=== PATIENT | male | born 1945 | race Caucasian/White ===

== ENCOUNTER → 2019-03-23 14:14 | Outpatient (BNVA) | payer MEDICARE, OTHER, SELFPAY | PROVIDERS: Family Provider Internal Medicine; PCP Internal Medicine; Visit Provider Specialist | DX: M25.559 Pain in unspecified hip (principal) | CPT/HCPCS: 73502 ==

== ENCOUNTER 2019-03-29 08:01 | Outpatient (CLI) | payer MEDICARE, OTHER, SELFPAY ==
--- NOTE | 2019-03-29 08:18 | CT_ITS ---
WS: [id number] CTA THORACIC TECHNIQUE: Contrast enhanced CTA of the thoracic aorta with coronal and sagittal reformatted images a nd maximum intensity projection (MIP) images. CLINICAL INFORMATION: ASCENDING AORTIC ANEURYSM COMPARISON: CTA July 04, 2018 DLP: 1319.[address] scans at [facility] use at least one of these dose optimization techniques: automat ed exposure control; mA and/or kV adjustment per patient size (includes targeted exams where dose is matched to clinical indication); or iterative reconstruction. FINDINGS: Ectatic ascending thoracic aorta measuring 3.7 cm in maximum dimension. Vascular calcification includ ing coronary. Normal descending thoracic aorta. Proximal main pulmonary arteries are normal. No mediastinal or hilar lymphadenopathy. Cholecystectomy clips. Adrenal glands are normal. Lungs are well aerated. No acute pulmonary infiltrates. Postoperative changes cervical spine. Schmorl's nodes t horacic spine. CT/CT angio chest [id number] IMPRESSION: 1. Stable slightly ectatic ascending thoracic aorta measuring 3.7 CM. Normal d escending thoracic aorta. 2. Vascular calcification including coronary. 3. No mediastinal or hilar lymphadenopathy. 4. Lungs are well aerated. No acute pulmonary infiltrates. 5. Prior cholecystectomy.
[2019-03-29] MEDS: iohexol 350 mg/mL 100 mL Btl IV (08:44)
== END 2019-03-29 08:02 | disposition home or self-care (01) ==
LOC: RADWPI 08:06
PROVIDERS: Family Provider Internal Medicine; PCP Internal Medicine; Referring Provider Internal Medicine; Visit Provider Internal Medicine Cardiovascular Disease
DX: I71.2 Thoracic aortic aneurysm, without rupture (principal); I25.10 Atherosclerotic heart disease of native coronary artery without angina pectoris; Z90.49 Acquired absence of other specified parts of digestive tract
CPT/HCPCS: 71275; Q9967

== ENCOUNTER → 2019-03-29 11:37 | Day surgery (SDC) | payer MEDICARE, OTHER, SELFPAY ==
--- NOTE | 2019-03-29 13:37 | XR_ITS ---
WS: PROCEDURE INFORMATION: Exam: XR Chest, 2 Views Exam date and time: 03/29/2019 2:06 PM Age: 73 years old Clinical indication: Pre-operative exam; Cardiovascular screening and respiratory screening exam; Additional info: Total hip arthroplasty TECHNIQUE: Imaging protocol: XR of the chest Views: 2 views. COMPARISON: CR Chest 1 [place] [id number] 07/04/2018 1:22 PM FINDINGS: Lungs: Unremarkable. No consolidation. Pleural space: Unremarkable. No pleural effusion. No pneumothorax. Heart/Mediastinum: Unremarkable. No cardiomegaly. Bones/joints: Metallic orthopedic hardware seen in the cervical spine and lumbar spine. XR/XR chest 2V* [id number] IMPRESSION: No acute findings. Surgical hardware cervical spine and lumbar spine
== END ==
PROVIDERS: Family Provider Internal Medicine; PCP Internal Medicine; Visit Provider Specialist
DX: Z01.818 Encounter for other preprocedural examination (principal); M16.11 Unilateral primary osteoarthritis, right hip
CPT/HCPCS: 71046; 71275; 80048; 81003; 85025; 93005; Q9967

== ENCOUNTER 2019-04-11 10:44 | Observation (INO) | payer MEDICARE, OTHER, SELFPAY ==
[2019-03-29 12:55] VITALS: BMI 35.6
--- NOTE | 2019-03-29 13:04 | ECG_ITS ---
Measurements Intervals [place] Rate: 79 P: 268 MO: 127 QRS: -63 QRSD: 102 T: 12 QT: 344 QTc: 394 JUNCTIONAL RHYTHM POSSIBLE RIGHT VENTRICULAR CONDUCTION DELAY [RSR (QR) IN V1/V2] MINIMAL VOLTAGE CRITERIA FOR LVH, CONSIDER NORMAL VARIANT [MEETS CRITERIA IN ONE OF: R(aVL), S(V1), R(V5), R(V5/V6)+S(V1)] POSSIBLE ANTERIOR MYOCARDIAL INFARCTION [30 ms Q WAVE IN V3/V4, OR R < 0.2 mV IN V4], PROBABLY OLD INFERIOR MYOCARDIAL INFARCTION [40+ ms Q WAVE AND/OR ST/T ABNORMALITY IN II/aVF], PROBABLY OLD WITH POSTERIOR EXTENSION [PROMIN Compared to ECG 07/04/2018 19:32:24 Junctional rhythm now present Myocardial infarct finding now present Sinus rhythm no longer present First degree AV block no longer present Left anterior fascicular block no longer present Intraventricular conduction delay no longer present Electronically Signed On 03-29-2019 20:13:30 GILL TENDER by Naz Russ M.D. [email or web address]
--- NOTE | 2019-03-29 13:36 | XRR_ITS ---
PROCEDURE INFORMATION: Exam: XR Chest, 2 Views Exam date and time: 03/29/2019 2:06 PM Age: 73 years old Clinical indication: Pre-operative exam; Cardiovascular screening and respiratory screening exam; Additional info: Total hip arthroplasty TECHNIQUE: Imaging protocol: XR of the chest Views: 2 views. COMPARISON: CR Chest 1 [place] [id number] 07/04/2018 1:22 PM FINDINGS: Lungs: Unremarkable. No consolidation. Pleural space: Unremarkable. No pleural effusion. No pneumothorax. Heart/Mediastinum: Unremarkable. No cardiomegaly. Bones/joints: Metallic orthopedic hardware seen in the cervical spine and lumbar spine.
--- NOTE | 2019-03-29 13:44 | ANES.PREANES ---
Pre-Anesthetic Assessment Pre-Anesthetic Assessment: Height/Weight: Height 1.78 m Weight 112.491 kg Preop Diagnosis: Right hip Osteoarthritis Proposed Procedure: Operation Date: 04/11/19 07:00 Proposed Procedures p Total Hip Arthroplasty M116.11(Right) - Angela Curtis MD Social: Social History: No alcohol and No tobacco Exam: Pre-Anes Outpt Exam: alert, oriented x 3, clear to auscultation bilaterally and regular rate & rhythm Airway: Submandibular: WNL Cervical ROM: Other (limited after ACDF) MP: 2 Dentition: False Pulmonary: Pulmonary: ADAMS and SOB Comments: SOB/ADAMS for 10yrs. CV/HEM: CV/HEM: CAD, HTN and AL Comments: Pt with neg stress stest 4-19 with echo 60%. Pt with 4cm AAA thats medically managed : : None reported Hepatic: Hepatic: None reported GI: GI: GERD (controlled with meds) Metabolic: Metabolic: Thyroid Musc/skel: Musc/skel: Lower Back Pain and OA/DJD Neuropsych: Neuropsych: TOSCANO and TIA (2yrs ago) Anesthetic Plan: ASA status: III Anesthesia: Anesthesia Evaluation and General Risk of > 500 ml blood loss (7ml/kg in children): Yes, adequate IV access and fluids planned PFSH Anesthesia PFSH: Medical History Cervical postlaminectomy syndrome (Acute) Chronic low back pain (Acute) COPD (chronic obstructive pulmonary disease) (Acute) DJD (degenerative joint disease) (Acute) H/O malignant neoplasm of skin (Acute) H/O myocardial infarction, greater than 8 weeks (Acute) H/O prostate cancer (Acute) HTN (hypertension) (Acute) Hyperlipidemia (Acute) Hypothyroid (Acute) FUAD (obstructive sleep apnea) (Acute) Surgical History (Updated 03/24/19 @ 12:42 by Angela Curtis MD) H/O colonoscopy (Acute) 2011 H/O esophagogastroduodenoscopy (Acute) 2012 H/O neck surgery (Acute) x 2 H/O total knee replacement (Acute) right and left History of abdominal aortic aneurysm (AAA) repair (Acute) History of back surgery (Acute) x 7 History of tonsillectomy and adenoidectomy (Acute) History of total left hip arthroplasty (Acute) Hx of appendectomy (Acute) Hx of cholecystectomy (Acute) Social History Smoking and tobacco status: never smoked Alcohol intake: never Household members: spouse Marital status: Current occupational status: retired Data Anesthesia Cardiac Studies: No Data to Display
[2019-03-29 13:50] LABS: Add Urine Microscopic? NO
[2019-03-29 14:13] LABS: Basophils # 0.1 10^3/uL (0.0-0.1); Basophils % 0.9 %; Eosinophils # 0.1 10^3/uL (0.0-0.8); Eosinophils % 1.8 %; Hematocrit 34.9 % (42.0-52.0); Hemoglobin 10.9 g/dL (11.7-16.6); Lymphocytes % 17.4 %; Mean Corpuscular HGB Conc 31.2 g/dL (30.0-36.0); Mean Corpuscular Hemoglobin 27.7 pg (28.0-34.0); Mean Corpuscular Volume 88.8 fL (80-94); Mean Platelet Volume 9.8 fL (7.4-10.4); Monocytes # 0.7 10^3/uL (0.2-0.9); Monocytes % 12.5 %; Neutrophils # 3.8 10^3/uL (1.8-7.7); Neutrophils % 66.9 %; Nucleated Red Blood Cells % 0 %; Platelet Count 232 10^3/cmm (130-400); Red Blood Count 3.93 10^6/uL (4.1-5.3); Red Cell Distribution Width 15.3 % (12.1-15.1); White Blood Count 5.7 10^3/uL (4.0-10.0)
[2019-03-29 14:17] LABS: Anion Gap 16.2 (5-19); Blood Urea Nitrogen 19 mg/dL (8-23); Calcium 10.1 mg/Dl (8.8-10.2); Carbon Dioxide 23 mmol/L (22-29); Chloride 105 mmol/L (98-107); Glucose 106 mg/dL (74-106); Potassium 4.2 mmol/L (3.5-5.1); Sodium 140 mmol/L (136-145)
[2019-03-29 14:25] LABS: Bilirubin Urine Neg (NEGATIVE); Blood Urine Neg (Negative); Glucose Urine UA Norm (Normal); Ketones Urine Negative (Negative); Leukocyte Esterase Urine Negative (Negative); Nitrate Urine Negative (Negative); Protein Urine Neg (Negative); Urine Appearance Clear (CLEAR); Urine Color Yellow (Yellow); Urobilinogen Urine 1 mg/dL (Negative); pH Urine 5 (5-7)
[2019-04-11] VITALS (25 sets, daily range): BP systolic 96–156; BP diastolic 58–91; PULSE 55–83; RESP 16–22; TEMP 36.1–37.1; O2SAT 91–100
[2019-04-11] MEDS: CELEcoxib 200 mg Capsule 400 MG PO (06:53)
--- NOTE | 2019-04-11 07:00 | PM.HPUD ---
H&P update H&P Update: DATE OF SURGERY/PROCEDURE: 04/11/19 DATE H&P PERFORMED: 03/23/19 H&P UPDATE INFORMATION: H&P completed within last 30 days, No changes to prior documentation and H&P is in [facility] EMR on date indicated PREOP DIAGNOSIS: Severe degenerative osteoarthritis of the right hip PRIMARY INDICATION FOR PROCEDURE: Pain secondary to degenerative osteoarthritis of the hip with interference in activities of daily living. PLANNED PROCEDURE: Operation Date: 04/11/19 07:00 Proposed Procedures Total Hip Arthroplasty M116.11 16190(Right) - Angela Curtis MD Full H&P Perinent History: Medical/Surgical History: Medical History (Updated 04/04/19 @ 16:49 by Ben Castro MD) Cervical postlaminectomy syndrome (Acute) Chronic low back pain (Acute) COPD (chronic obstructive pulmonary disease) (Acute) DJD (degenerative joint disease) (Acute) H/O malignant neoplasm of skin (Acute) H/O myocardial infarction, greater than 8 weeks (Acute) H/O prostate cancer (Acute) HTN (hypertension) (Acute) Hyperlipidemia (Acute) Hypothyroid (Acute) FUAD (obstructive sleep apnea) (Acute) Family History: Family History (Updated 03/21/19 @ 11:56 by Jennifer Becerril LPN) Mother Bleeding disorder Other CAD (coronary artery disease) Cancer Stroke Denies family history of Anesthesia complication Social History: Social History Smoking and tobacco status: never smoked Alcohol intake: never Household members: spouse Marital status: Current occupational status: retired
[2019-04-11] MEDS: sodium chloride 0.9% 1,000 ML 30 ML IV (07:01)
[2019-04-11 07:21] LABS: INR 1.07 (0.8-1.2)
[2019-04-11] MEDS: vancomycin 1,000 MG SDV 1000 MG XX (08:09)
[2019-04-11] MEDS: ceFAZolin 1,000 mg SDV 1000 MG IRRIGATION (08:09)
[2019-04-11] MEDS: ondansetron 2 mg/ML SDV 2 mL 4 MG IVP (10:15)
[2019-04-11] MEDS: fentaNYL 50 mcg/mL INJ 2mL IVP ×2 (10:21→10:26)
--- NOTE | 2019-04-11 10:26 | XR_ITS ---
WS: [id number] RIGHT HIP HISTORY: Post Op COMPARISON: 03/23/2019 Right hip: Single AP film of the pelvis is submitted. Recent RIGHT hip arthroplasty changes are now p resent. The orientation of the acetabular and femoral head prosthesis are normal. No fractures. Recent postsurgical soft tissue changes are noted. Prior LEFT hip arthroplasty. XR/XR hip RT 2-3V wo/w pel* [id number] IMPRESSION: 1. Recent RIGHT hip arthroplasty. Normal position on this single AP projection . 2. Prior LEFT hip arthroplasty without complication.
--- NOTE | 2019-04-11 10:38 | PM.OP ---
Operative Report Date of procedure: 04/11/19 Pre-op Diagnosis: Right hip Osteoarthritis Post-op diagnosis: same Post-op Findings: Severe degenerative osteoarthritis of the right hip Procedure Done: Right total hip arthroplasty utilizing the following components a size 58 mm [place] 2 Tritanium cluster hole acetabular shell with an F alpha code with an MDM cementless liner size 46 mm by F alpha code, a size 7 Accolade to 127? neck angle hip stem with a 37 mm neck length, a 28 mm inner diameter with a 46F outer diameter methodist X3 insert for the MDM, and a Biolox ceramic femoral head with a 28 mm outer diameter and a +0 mm neck length. Specimens removed/disposition: Femoral head, disposed of Pathology: none sent Surgeon: Angela Curtis Public Relations Representative: [facility] OR technicians Anesthesia: General (Intubated) Estimated blood loss (mL): 800 IV fluids (mL): 1,500 Urine output (mL): 200 Complications: None Findings: Severe degenerative osteoarthritis with large osteophytes. The surgical procedure, the hip was stable at 90 degrees of flexion with 30 degrees of adduction and 60 degrees of internal rotation. It was also stable to external rotation. Condition: stable Disposition: observation (To [facility]) Brief History: This 73-year-old gentleman previously underwent left total hip arthroplasty. He has done well following this. He did feel as though the leg was approximately quarter inch longer on the previously operated side. He was still having issues with his activities of daily living. Therefore, we plan to proceed with right total hip arthroplasty. Procedure: Patient was brought to the operating theater. He was transferred to the operating room table and subsequently administered a general anesthetic intubated. Following administration of adequate anesthesia, the patient was placed in full lateral position and held in position with a pegboard. Also, the patient had minimal movement in his right lower extremity preoperatively which made draping as well as the entire surgical procedure very difficult and complex. The patient's right lower extremity was then prepped and draped in usual fashion utilizing DuraPrep. It was draped free. Following prepping and draping a surgical pause was performed. At the time of surgical pause, we identified the site and side of surgery. We also identified the patient and preoperative surgical markings. Confirmation was made of equipment availability. Additionally, the patient's preoperative IV antibiotic, Ancef 2 g, was confirmed as being given in a timely fashion and being the appropriate antibiotic. Following the surgical pause, an incision was made centering over the patient's greater trochanter continuing proximally and distally as necessary to allow access to the hip joint. Dissection continued through skin and soft tissues using a scalpel, and hemostasis was obtained using electrocautery. The tensor fascia jose miguel was identified and incised longitudinally. Patient was very tight with regard to capsule, joint, and musculature which made this a very complex and difficult total hip arthroplasty. Sciatic nerve was identified and protected throughout the surgical procedure. A [place] U retractor was placed after the tensor fascia jose miguel had been incised longitudinally, and the sciatic nerve had been identified. The hip was internally rotated as much as possible, and the piriformis muscle was identified and tagged. Piriformis muscle along with the remaining short external rotators were then incised from the posterior aspect of the hip joint. These were retracted posteriorly. The capsule was entered in a T-type fashion with the edges being tagged, and subsequently the hip was dislocated with use of a hip skid. Following hip dislocation, a femoral neck osteotomy was accomplished in the appropriate position. We then evaluated the acetabulum. The femur was retracted anteriorly. Soft tissues were retracted and the labrum was removed. We then began reaming. Reaming was accomplished sequentially with appropriate deepening. Again, exposure of the acetabulum was difficult secondary to soft tissue contractures. Once the femoral head was removed, there was noted to be significant loss of cartilage over the head and over the acetabulum. We reamed to a size 57 mm to allow for a size 58 mm acetabular shell. The acetabulum was impacted into position. It was noted that the acetabulum matched the bony anatomy. The cup was noted to seat nicely and had good fixation upon impact. The MDM cementless metal liner was then impacted into position with care being taken to assure there was no soft tissue impingement between the acetabular liner and the acetabulum. Also, we confirmed that the acetabular insert was completely seated prior to addressing the femur. Attention was directed to the proximal femur. The proximal femur was lifted out of the wound. A canal finder was passed after the box chisel. The reamer was used to lateralize. We then began broaching. We broached sequentially and had excellent fit and fill with the size 7 Accolade to stem. A trial reduction was accomplished with a +0 mm femoral head with the 46F MDM insert. The patient had good stability with +0 mm femoral head. It felt that we had restored leg length inequality. We placed a size 7 which had a slightly longer neck length, and to avoid over tightening, we did place a 127 degree neck angle rather than a 132 degree neck angle. With this in place, we had the above stabilities, and at that time, we felt that we had restored leg lengths. We also felt that we had excellent stability noted above. Therefore, trial components were removed after the hip was dislocated. The size 7 Accolade to 127? neck angle hip stem with a 37 mm neck length was impacted into position without difficulty and onto this was placed the construct of the +0 mm femoral head with a 28 mm outer diameter and a methodist MDM insert with a 28 mm inner diameter for the size 46F. With this construct, we had the above-noted stability. The stem was noted to seat nicely prior to placement of the femoral head. The wound was copiously irrigated with 20 mL of Betadine and 500 mL of normal saline mixed together. Subsequently, we suctioned this out and irrigated the wound copiously with lactated Ringer's. At this time, with all components in appropriate position, the hip was reduced. Following reduction of the prosthesis once again, we confirmed the stability of the hip. Leg lengths were also felt to be satisfactory and equalized. Being satisfied with the prosthesis, attention was directed to closure. Closure was accomplished with 0 Vicryl in the capsular tissues. Piriformis was reattached with 0 Vicryl as well. Tensor fascia jose miguel was closed with 0 Vicryl in an interrupted fashion. The subcutaneous tissues were closed with a combination of 0 Vicryl and 2-0 Monocryl. Vancomycin powder and a Gelfoam thrombin mixture was placed into the wound as well. The skin was closed with a running 3-0 Monocryl followed by Dermabond and Steri-Strips. This was covered with 4 x 4's, Telfa, and Tegaderm. The patient was placed in an abduction pillow. He was returned the Recovery Room in a satisfactory condition and will be discharged to the floor for postoperative rehabilitation and pain management. There were no complications.
--- NOTE | 2019-04-11 10:57 | SUR.PHASEI ---
1057 PT AWAKE ALERT TAKING ICE CHIPS PT HIP DRESSING D/I FIRST ICE AND ABD PILLOW IN PLACE VSS. REPORT CALLED FAMILY UPDATED BY DR HERNANDEZ PT ABLE TO MOVE RT FOOT, STRONG REGULAR PULSE NOTED TO RT FOOT
[2019-04-11] MEDS: oxyCODONE-APAP 5-325 mg Tablet 1 TAB PO ×3 (11:18→19:51)
[2019-04-11] MEDS: CELEcoxib 200 mg Capsule PO ×2 (11:18→21:38)
[2019-04-11 11:22] LABS: Glucose Point of Care 134 mg/dL (70-110)
[2019-04-11] MEDS: lactated ringers 1,000 ML 100 ML IV ×2 (11:29→21:38)
--- NOTE | 2019-04-11 11:34 | SUR.PHASEI ---
1052 PT TO FLOOR AWAKE ALERT RT HIP DRESSING D/I FAMILY TO ROOM BP 125/76, 69 HR, RESP 22, SHIRLEY RA 100%
[2019-04-11] MEDS: pantoprazole DR 40 mg Tablet PO (12:51)
[2019-04-11] MEDS: oxybutynin 5 mg Tablet PO (12:51)
[2019-04-11] MEDS: chlorhexidine gluconate 0.12% Btl 473 mL 30 ML MUCOUS MEM ×3 (12:52→21:39)
--- NOTE | 2019-04-11 12:57 | PC.NURSE ---
PATIENT SATURATIONS BEGAN TO DROP TO MID 80s ON RA. PATIENT PLACED ON 2L O2 PER NASAL CANNULA. PATIENT SATS RECOVERED TO MID TO HIGH 90s
[2019-04-11] MEDS: TRAMadol 50 mg Tablet PO ×2 (14:31→23:18)
[2019-04-11] MEDS: gabapentin 300 mg Capsule PO ×2 (14:32→21:38)
[2019-04-11] MEDS: calcium carbonate 500 mg Chew Tablet 1000 MG PO (17:08)
[2019-04-11] MEDS: iron polysaccharide complex 150 mg Capsule PO (17:08)
[2019-04-11] MEDS: amlodipine 5 mg Tablet PO (17:09)
[2019-04-11] MEDS: carvedilol 12.5 mg Tablet PO (17:09)
[2019-04-11] MEDS: lisinopril 10 mg Tablet PO (17:09)
[2019-04-11] MEDS: sennosides-docusate Tablet 2 TAB PO (17:09)
[2019-04-12] VITALS (15 sets, daily range): BP systolic 91–116; BP diastolic 53–69; PULSE 69–79; RESP 16–20; TEMP 36.8–37.2; O2SAT 91–94
[2019-04-12] MEDS: oxyCODONE-APAP 5-325 mg Tablet 1 TAB PO ×3 (00:11→08:35)
[2019-04-12 06:24] LABS: Basophils % 0.9 %; Eosinophils # 0.1 10^3/uL (0.0-0.8); Eosinophils % 1.8 %; Hematocrit 25.3 % (42.0-52.0); Hemoglobin 7.7 g/dL (11.7-16.6); Lymphocytes # 0.4 10^3/uL (0.8-4.8); Lymphocytes % 9.5 %; Mean Corpuscular HGB Conc 30.4 g/dL (30.0-36.0); Mean Corpuscular Hemoglobin 26.6 pg (28.0-34.0); Mean Corpuscular Volume 87.5 fL (80-94); Mean Platelet Volume 9.6 fL (7.4-10.4); Monocytes # 0.6 10^3/uL (0.2-0.9); Monocytes % 13.6 %; Neutrophils # 3.4 10^3/uL (1.8-7.7); Neutrophils % 73.8 %; Nucleated Red Blood Cells % 0 %; Platelet Count 135 10^3/cmm (130-400); Red Blood Count 2.89 10^6/uL (4.1-5.3); Red Cell Distribution Width 15.1 % (12.1-15.1); White Blood Count 4.6 10^3/uL (4.0-10.0)
[2019-04-12] MEDS: lactated ringers 1,000 ML 100 ML IV ×2 (07:29→21:09)
[2019-04-12] MEDS: calcium carbonate 500 mg Chew Tablet 1000 MG PO ×2 (08:34→17:16)
[2019-04-12] MEDS: amlodipine 5 mg Tablet PO ×2 (08:34→17:17)
[2019-04-12] MEDS: cholecalciferol (vitamin D3) 1,000 unit Tablet 1000 UNIT PO (08:35)
[2019-04-12] MEDS: aspirin 325 mg EC Tablet PO (08:35)
[2019-04-12] MEDS: carvedilol 12.5 mg Tablet PO ×2 (08:35→17:17)
[2019-04-12] MEDS: multivitamin therapeutic Tablet 1 TAB PO (08:35)
[2019-04-12] MEDS: iron polysaccharide complex 150 mg Capsule PO ×2 (08:35→17:17)
[2019-04-12] MEDS: lisinopril 10 mg Tablet PO ×2 (08:36→17:17)
[2019-04-12] MEDS: gabapentin 300 mg Capsule PO ×3 (08:36→20:28)
[2019-04-12] MEDS: atorvastatin 40 mg Tablet 20 MG PO (08:36)
[2019-04-12] MEDS: pantoprazole DR 40 mg Tablet PO (08:36)
[2019-04-12] MEDS: oxybutynin 5 mg Tablet PO (08:36)
[2019-04-12] MEDS: sennosides-docusate Tablet 2 TAB PO ×2 (08:37→17:17)
[2019-04-12] MEDS: chlorhexidine gluconate 0.12% Btl 473 mL 30 ML MUCOUS MEM ×4 (08:37→20:28)
[2019-04-12] MEDS: levothyroxine 25 mcg Tablet PO (09:56)
[2019-04-12] MEDS: levothyroxine 112 mcg Tablet PO (09:56)
[2019-04-12] MEDS: CELEcoxib 200 mg Capsule PO ×2 (10:07→21:09)
--- NOTE | 2019-04-12 12:31 | PC.CHAP ---
Pastoral Care Encounter/Spiritual Assessment Type of Contact [] Declined metal sander visit [] Patient/Family/Request visit [] Outpatient visit [] Follow-up visit [] Physician referral [] Code/Alert [x] Routine visit [] Staff referral [] Actively dying [] Patient sleeping [] Family support [] [] Out of room [] Palliative care [] [] Receiving care in room [] Pre-surgical visit [] Trauma [] Long length of stay [] ICU visit [] Other: Relational/Emotional Strength [x] Patient feels connected with others/family/visitors/staff [] Distress [] Loneliness/isolation [] Abandonment Spirituality of Patient [x] Person of Nini [x] Attends Restorationist of their Nini [x] Believes in Prayer [] Reads Bible or Protestant materials [] There are Spiritual issues to be addressed Recreation Worker Interventions [x] Prayer [x] Active listening [x] Non-anxious presence [x] Spiritual/emotional support [] Crisis/trauma care [] Spiritual counseling [] Bereavement support [] Provided bereavement packet [] Provided Bible/devotional materials [] Provided toy/stuffed animal, coloring book to patient or family member [x] Completed spiritual assessment [] Provided Communion [] Anointing/[place] [] Salvation [] Other: Impact on Illness or Injury [] Angry [] Fearful [] Anxious [] Often cries [] Exhaustion [] Unable to work [] Unable to attend sikh [] Unable to walk/stand [] Unable to read [] Unable to drive [] Unable to eat/drink [] Unable to sleep [] Unable to be with family [] Other: Summary patient ready to go home to take care of Time spent with patient 15 min
[2019-04-12] MEDS: sodium chloride 0.9% 100 ML 150 ML (15:49)
[2019-04-12] MEDS: TRAMadol 50 mg Tablet PO (15:51)
--- NOTE | 2019-04-12 16:40 | P.PN_ITS ---
Subjective Subjective: Interval history: Patient underwent total hip arthroplasty yesterday. He has attempted to work with physical therapy today, but he had dizziness associated with this therapy secondary to a low H&H. Initially, low H&H was identified, but the patient was not symptomatic. With physical therapy, he became quite dizzy, and this precluded him from participating. He notes at the time of his last surgery, he required 3 units of blood to follow. Medications: Reviewed: Yes Vitals/I&O/Wt Last Vital Signs Temp 98.3 F 04/12/19 15:40 Pulse 69 04/12/19 15:40 Resp 16 04/12/19 15:40 BP 109/68 04/12/19 15:40 Pulse Ox 94 04/12/19 15:40 04/12/19 04/12/19 04/12/19 06:59 14:59 22:59 Intake Total 1705 / 1705 Output Total 700 / 1900 100 / 100 Balance -700 / 2055.000 1605 / 1605 Physical Exam Narrative: EXAM NARRATIVE: Patient is doing well. There is no evidence of DVT. There is no significant hematoma noted. He is neurologically intact. He has no calf tenderness. His thigh is soft and nontender as well. Urinary Catheter Management^: Velazquez: Cath Placed During This Visit: no Data : 04/12/19 05:53 03/29/19 13:15 A&P Assessment and plan (1) History of total right hip arthroplasty: The patient is doing well following his right total hip arthroplasty. He is working with physical therapy, however, due to a decreased H&H, the patient was unable to ambulate today. He sat at the side of the bed. When I saw him, he complained of significant dizziness. He stated that following his prior total hip arthroplasty, he did require 3 units of packed red blood cells. He is symptomatic enough that we will plan transfusion 1 unit today. Status: Acute Code(s): Z96.641 - Presence of right artificial hip joint (2) Primary osteoarthritis of right hip: This was addressed with total hip arthroplasty on April 11, 2019 Status: Acute Code(s): M16.11 - Unilateral primary osteoarthritis, right hip Attestations Medical Necessity Statement*: Patient continues to need hospitalization for decreased H&H and ongoing therapies following his total hip arthroplasty. Coding Level of Care Code Acute Rubber Gasket Inspector Trimmer for Chg Fwd Diagnoses History of total right hip arthroplasty Z96.641 Primary osteoarthritis of right hip M16.11
[2019-04-12 20:33] LABS: Hematocrit 28.3 % (42.0-52.0); Hemoglobin 8.8 g/dL (11.7-16.6)
[2019-04-13] VITALS (7 sets, daily range): BP systolic 101–166; BP diastolic 65–74; PULSE 70–86; RESP 17–22; TEMP 36.9–37.1; O2SAT 95–96
[2019-04-13] MEDS: lactated ringers 1,000 ML 100 ML IV (07:43)
[2019-04-13] MEDS: iron polysaccharide complex 150 mg Capsule PO (07:44)
[2019-04-13] MEDS: oxyCODONE-APAP 5-325 mg Tablet 1 TAB PO ×2 (08:16→14:32)
[2019-04-13] MEDS: cholecalciferol (vitamin D3) 1,000 unit Tablet 1000 UNIT PO (08:17)
[2019-04-13] MEDS: calcium carbonate 500 mg Chew Tablet 1000 MG PO (08:17)
[2019-04-13] MEDS: aspirin 325 mg EC Tablet PO (08:17)
[2019-04-13] MEDS: sennosides-docusate Tablet 2 TAB PO (08:17)
[2019-04-13] MEDS: pantoprazole DR 40 mg Tablet PO (08:17)
[2019-04-13] MEDS: lisinopril 10 mg Tablet PO (08:17)
[2019-04-13] MEDS: oxybutynin 5 mg Tablet PO (08:18)
[2019-04-13] MEDS: amlodipine 5 mg Tablet PO (08:18)
[2019-04-13] MEDS: atorvastatin 40 mg Tablet 20 MG PO (08:18)
[2019-04-13] MEDS: multivitamin therapeutic Tablet 1 TAB PO (08:18)
[2019-04-13] MEDS: carvedilol 12.5 mg Tablet PO (08:18)
[2019-04-13] MEDS: gabapentin 300 mg Capsule PO ×2 (08:18→14:32)
[2019-04-13 09:22] LABS: Basophils % 0.5 %; Eosinophils # 0.2 10^3/uL (0.0-0.8); Eosinophils % 2.5 %; Hematocrit 29.9 % (42.0-52.0); Hemoglobin 9.3 g/dL (11.7-16.6); Lymphocytes # 0.5 10^3/uL (0.8-4.8); Lymphocytes % 8.1 %; Mean Corpuscular HGB Conc 31.1 g/dL (30.0-36.0); Mean Corpuscular Hemoglobin 27.8 pg (28.0-34.0); Mean Corpuscular Volume 89.3 fL (80-94); Mean Platelet Volume 9.7 fL (7.4-10.4); Monocytes # 0.6 10^3/uL (0.2-0.9); Neutrophils # 4.6 10^3/uL (1.8-7.7); Neutrophils % 78.6 %; Nucleated Red Blood Cells % 0 %; Platelet Count 144 10^3/cmm (130-400); Red Blood Count 3.35 10^6/uL (4.1-5.3); Red Cell Distribution Width 15.7 % (12.1-15.1); White Blood Count 5.9 10^3/uL (4.0-10.0)
[2019-04-13] MEDS: levothyroxine 25 mcg Tablet PO (10:07)
[2019-04-13] MEDS: levothyroxine 112 mcg Tablet PO (10:07)
[2019-04-13] MEDS: chlorhexidine gluconate 0.12% Btl 473 mL 30 ML MUCOUS MEM (10:23)
[2019-04-13] MEDS: CELEcoxib 200 mg Capsule PO (11:17)
--- NOTE | 2019-04-13 16:06 | P.DS_ITS ---
Discharge Providers Date of Admission: 04/11/19 10:44 Date of Discharge: 04/13/19 Attending Provider at Admission: Angela Curtis MD Attending Provider at Discharge: Angela Curtis MD Primary Care Provider: Marsha Turner MD Diagnoses at Discharge Discharge Diagnosis (1) History of total right hip arthroplasty: Status: Acute (2) Primary osteoarthritis of right hip: Status: Acute Reason for Visit Reason for Visit: Reason For Visit: Primary osteoarthritis of right hip Hospital Course Hospital Course: Patient was admitted to the hospital on April 11, 2019 with a diagnosis of severe degenerative osteoarthritis of the right hip. He was scheduled for same day surgery to include right total hip arthroplasty. He underwent: Right total hip arthroplasty utilizing the following components a size 58 mm Ethridge 2 Tritanium cluster hole acetabular shell with an F alpha code with an MDM cementless liner size 46 mm by F alpha code, a size 7 Accolade to 127? neck angle hip stem with a 37 mm neck length, a 28 mm inner diameter with a 46F outer diameter protestant X3 insert for the MDM, and a Biolox ceramic femoral head with a 28 mm outer diameter and a +0 mm neck length. Following the surgical procedure, he was placed on the floor for observation and physical therapy. The patient did have a low H&H on the first postoperative day requiring 1 unit transfusion. He was symptomatic with extreme dizziness and inability to cooperate with physical therapy. Subsequent to that he continued to improve and was able to progress with physical therapy. At the day of discharge, the therapist thought that he was safe for discharge to home. Discharge Summary: Patient is discharged home today with home health. Physical Exam Narrative: EXAM NARRATIVE: Patient is doing well. There is no evidence of DVT. There is no significant hematoma noted. He is neurologically intact. He has no calf tenderness. His thigh is soft and nontender as well. His dizziness has resolved. His H&H improved significantly. Urinary Catheter Management^: Velazquez: Cath Placed During This Visit: no Discharge Data Data Completed and Pending: Completed Studies During Hospitalization Category Date Time Status XR hip RT 2-3V wo /w pel* [id number] Stat Exams 04/11/19 10:26 Completed Pending at discharge Category Date Time Status Complete Blood Co unt w/Auto Lab 04/14/19 04:00 Uncollected PC [Leukocyte Red uced RBC] Routine Lab 04/12/19 13:31 Results Retype for XM Rou aleyda Lab 04/11/19 06:47 Results Type and Screen R outine Lab 04/11/19 06:47 Results Labs from last 24 hours 04/13/19 04/12/19 04/11/19 09:10 20:21 06:47 WBC 5.9 RBC 3.35 L Hgb 9.3 L 8.8 L Hct 29.9 L 28.3 L MCV 89.3 MCH 27.8 L MCHC 31.1 RDW 15.7 H Plt Count 144 MPV 9.7 Neut % (Auto) 78.6 Lymph % (Auto) 8.1 [place] % (Auto) 10.0 Eos % (Auto) 2.5 Baso % (Auto) 0.5 Neut # (Auto) 4.6 Lymph # (Auto) 0.5 L [place] # (Auto) 0.6 Eos # (Auto) 0.2 Baso # (Auto) 0.0 Nucleated RBC % (a uto) 0 Nucleated RBCs # 0.0 Crossmatch See Detail Vitals: Last Vital Signs Temp 98.7 F 04/13/19 11:21 Pulse 86 04/13/19 11:21 Resp 18 04/13/19 14:32 BP 132/74 04/13/19 11:21 Pulse Ox 95 04/13/19 11:21 Discharge Plan Discharge Patient Disposition: Home Health Service Condition: Stable Prescriptions: New tramadol 50 mg Tablet 50 mg PO Q4H PRN (Reason: Mild To Moderate Pain) Qty: 40 RF: 0 aspirin 325 mg Tablet,Delayed Release (Dr/Ec) 325 mg PO DAILY 30 Days Qty: 30 RF: 0 celecoxib 200 mg Capsule 200 mg PO Q12H Qty: 60 RF: 0 Continued acetaminophen 325 mg capsule 650 mg PO Q6H PRN (Reason: Pain) RF: 0 carvedilol 12.5 mg tablet 12.5 mg PO BID RF: 0 cetirizine 10 mg capsule 10 mg PO PRN PRN (Reason: Allergy Symptoms) RF: 0 gabapentin 300 mg capsule 300 mg PO TID RF: 0 hydrocortisone 2.5 % cream 1 applic TOPICAL BID PRN (Reason: Itching) RF: 0 ketoconazole 2 % shampoo 1 applic TOPICAL ONCE RF: 0 leflunomide 20 mg tablet 100 mg PO ONCE RF: 0 esomeprazole magnesium [Nexium] 40 mg capsule,delayed release(DR/EC) 40 mg PO ONCE RF: 0 oxybutynin chloride 5 mg tablet 5 mg PO ONCE RF: 0 simvastatin 5 mg tablet 5 mg PO ONCE RF: 0 amlodipine 5 mg Tablet 5 mg PO BID RF: 0 Nitrostat 0.4 mg Tablet, Sublingual 0.4 mg SUBLINGUAL Q5M PRN (Reason: Chest Pain) RF: 0 levothyroxine [Synthroid] 137 mcg tablet 137 mcg PO DAILY RF: 0 lisinopril 10 mg tablet 10 mg PO BID RF: 0 Held aspirin 81 mg tablet,delayed release (DR/EC) 81 mg PO ONCE RF: 0 Discharge Orders: Discharge Order (Routine); Ordered 04/13/19 Ordered By: Angela Curtis Referrals: [facility] [place] ([facility]) [Outside] (Your information has been sent to [facility] to see if they can provide home health services. If you do not hear from them in 1-2 days after being discharged, you may call them at the number provided. ) Angela Curtis MD [Physician] - 04/24/19 1:45 pm Discharge Diet: Advance as tolerated Discharge Activity: Resume usual activity, Limit activity as instructed and Use walker/crutches as instructed Activity Restrictions/Additional Instructions: Weightbearing as tolerated with posterior hip precautions. Home physical therapy to work with patient on gait training, ambulation, strengthening, and range of motion. Discharge Attestations Time Spent in Discharge Care*: greater than 30 min Quality Metrics Clinical Quality Measures During this hospital stay, did patient experience: None Coding Level of Care Code Acute Hoop Driving Machine Operator for Lauren Zimmerman Diagnoses History of total right hip arthroplasty Z96.641 Primary osteoarthritis of right hip M16.11
== END 2019-04-13 17:00 | disposition home health service (06) ==
LOC: MEDSURG 10:45
PROVIDERS: Admitting Provider Specialist; Family Provider Internal Medicine; PCP Internal Medicine; Visit Provider Specialist
PROC: (CPT 27130; principal; 2019-04-11 07:00)
DX: M16.11 Unilateral primary osteoarthritis, right hip (principal); I25.10 Atherosclerotic heart disease of native coronary artery without angina pectoris; I10 Essential (primary) hypertension; I25.2 Old myocardial infarction; Z86.73 Personal history of transient ischemic attack (TIA), and cerebral infarction without residual deficits; M19.90 Unspecified osteoarthritis, unspecified site; J44.9 Chronic obstructive pulmonary disease, unspecified; E78.5 Hyperlipidemia, unspecified; G47.33 Obstructive sleep apnea (adult) (pediatric); E03.9 Hypothyroidism, unspecified
CPT/HCPCS: 27130; 12345; 36415; 36416; 36430; 73502; 82962; 85014; 85018; 85025; 85610; 86850; 86900; 96360; 96361; 96365; 96366; 97110; 97116; 97161; 97166; 97530; 97535; A9281; C1776; G0378; J0131; J0690; J2001; J2250; J2370; J2405; J2704; J2710; J3010; J3370; J3490; J7030; P9016

== ENCOUNTER → 2019-04-24 14:12 | Outpatient (BNVA) | payer MEDICARE, OTHER, SELFPAY | PROVIDERS: Family Provider Internal Medicine; PCP Internal Medicine; Visit Provider Specialist | DX: Z48.89 Encounter for other specified surgical aftercare (principal); Z96.643 Presence of artificial hip joint, bilateral | CPT/HCPCS: 73502 ==

== ENCOUNTER → 2019-04-25 09:02 | Outpatient (BNVA) | payer MEDICARE, OTHER, SELFPAY | PROVIDERS: Family Provider Internal Medicine; PCP Internal Medicine; Visit Provider Internal Medicine Rheumatology | DX: M35.9 Systemic involvement of connective tissue, unspecified (principal); Z79.899 Other long term (current) drug therapy; K21.9 Gastro-esophageal reflux disease without esophagitis; M06.00 Rheumatoid arthritis without rheumatoid factor, unspecified site; M19.90 Unspecified osteoarthritis, unspecified site | CPT/HCPCS: 99214 ==

== ENCOUNTER 2019-05-14 21:21 | Emergency (ER) | payer MEDICARE, OTHER, SELFPAY ==
[2019-05-14 21:23] VITALS: BP 151/101; PULSE 90; RESP 20; TEMP 37; O2SAT 95; BMI 34.2
[2019-05-14 22:15] VITALS: BP 123/79; PULSE 80; RESP 18
--- NOTE | 2019-05-14 22:25 | ECG_ITS ---
Measurements Intervals [place] Rate: 67 P: 74 [place]: 203 QRS: -58 QRSD: 137 T: 21 QT: 400 QTc: 424 SINUS RHYTHM INTRAVENTRICULAR CONDUCTION DELAY [130+ ms QRS DURATION] PROBABLE ANTEROSEPTAL MYOCARDIAL INFARCTION , OF INDETERMINATE AGE [35 ms Q WAVE IN V1-V4] Compared to ECG 03/29/2019 13:22:29 Intraventricular conduction delay now present Junctional rhythm no longer present Myocardial infarct finding still present Electronically Signed On 05-15-2019 20:27:55 MEDICAL WRITER by Priyanka Rivas M.D. [id number]
[2019-05-14 22:35] VITALS: BP 125/76; PULSE 76; RESP 18; O2SAT 96
[2019-05-14 22:50] LABS: Basophils # 0.1 10^3/uL (0.0-0.1); Basophils % 1.1 %; Eosinophils # 0.1 10^3/uL (0.0-0.8); Eosinophils % 1.4 %; Hematocrit 34.4 % (42.0-52.0); Hemoglobin 10.5 g/dL (11.7-16.6); Lymphocytes # 0.9 10^3/uL (0.8-4.8); Lymphocytes % 13.5 %; Mean Corpuscular HGB Conc 30.5 g/dL (30.0-36.0); Mean Corpuscular Hemoglobin 27.8 pg (28.0-34.0); Mean Platelet Volume 9.7 fL (7.4-10.4); Monocytes # 0.8 10^3/uL (0.2-0.9); Neutrophils # 4.7 10^3/uL (1.8-7.7); Neutrophils % 71.7 %; Nucleated Red Blood Cells % 0 %; Platelet Count 203 10^3/cmm (130-400); Red Blood Count 3.78 10^6/uL (4.1-5.3); Red Cell Distribution Width 16.2 % (12.1-15.1); White Blood Count 6.5 10^3/uL (4.0-10.0)
[2019-05-14 23:10] LABS: Alanine Aminotransferase 13 U/L (0-41); Albumin Level 4.2 g/dL (3.5-5.2); Alkaline Phosphatase 102 IU/L (40-130); Anion Gap 16.6 (5-19); Aspartate Amino Transferase 12 U/L (0-40); Blood Urea Nitrogen 21 mg/dL (8-23); Calcium 9.8 mg/dL (8.5-10.5); Carbon Dioxide 24 mmol/L (22-29); Chloride 106 mmol/L (98-107); Globulin 2.9 g/dL (1.3-4.6); Glucose 121 mg/dL (65-115); Potassium 4.6 mmol/L (3.5-5.1); Sodium 142 mmol/L (136-145); Total Bilirubin 0.3 mg/dL (0.15-1.2); Total Protein 7.1 g/dL (6.6-8.7)
--- NOTE | 2019-05-14 23:32 | W.ED.GENADLT ---
HPI - General Adult General: Chief complaint: General Medical Stated complaint: took double bp medicine Time Seen by Provider: 05/14/19 23:00 Source: patient Mode of arrival: ambulatory Limitations: no limitations History of Present Illness: HPI narrative: Patient is a very nice 73-year-old gentleman who comes in today with a complaint of accidental overdose of blood pressure medications. Patient states he takes 12.5mg carvedilol, 20mg lisinopril, and 5mg amlodipine twice daily. He states he took his normal morning dose but this evening somehow had his tablets mixed up and accidentally took 2 doses. Upon arrival patient states he feels okay. Blood pressure remained stable while waiting in the waiting room. Ingestion of medications was 8:30 PM this evening. Onset (ago): hour(s) Associated symptoms: Deny chest pain, dyspnea, headache(s), nausea, palpitations, syncope or vomiting Review of Systems Const: Denies: fever or chills Eyes: Denies: change in vision or blurry vision Card: Denies: chest pain, palpitations, irregular heart rhythm, edema, lightheadedness, syncope, pre-syncope or shortness of breath when lying down Resp: Denies: shortness of breath, productive cough, coughing up blood or chest congestion GI: Denies: nausea or vomiting Musc: Denies: neck pain or back pain Neuro: Denies: headache, numbness in extremities, weakness in extremities or changes in sensation PFS ED PFSH: Social History Smoking and tobacco status: never smoked Alcohol intake: never Household members: spouse Marital status: Current occupational status: retired Physical Exam Const: COMMON NORMALS: no apparent distress, average body habitus, oriented x3, no limitations, healthy appearing, alert and well nourished ORIENTATION/CONSCIOUSNESS: Yes oriented to person, Yes oriented to place and Yes oriented to time Resp: COMMON NORMALS: normal respiratory effort and clear to auscultation bilaterally AUSCULTATION: clear to auscultation bilaterally Cardio: COMMON NORMALS: regular rate and regular rhythm RATE: regular rate RHYTHM: regular rhythm Neuro: WHIT COMA SCALE: document GCS findings [place] coma scale eye opening: Spontaneous [place] coma scale verbal response: Orientated [place] coma scale motor response: Obey commands Whit coma scale total score: 15 COMMON NORMALS: oriented x3 SENSORIUM/ORIENTATION: Yes alert, Yes oriented to person, Yes oriented to place and Yes oriented to time Skin: COMMON NORMALS: no rashes or lesions noted GENERAL SKIN EXAM: no rashes or lesions noted Course ED course: Contacted poison control and discussed blood pressure peak times and half-lives. Patient is already past the peak of his carvedilol. The amlodipine and lisinopril will peak at hour 6 therefore poison control recommended we keep patient here until that time. Again patient's blood pressure continues to run normal at this time. Vital Signs: Vital signs: Vital Signs Temperature 98.6 F 05/14/19 21:23 Pulse Rate 76 05/14/19 22:35 Respiratory Rate 18 05/14/19 22:35 Blood Pressure 125/76 05/14/19 22:35 Pulse Oximetry 96 05/14/19 22:35 MDM - General Adult MDM Narrative: Medical decision making narrative: Patient is now over 6 hours past ingestion and blood pressure is still normotensive. Patient is stable for discharge at this time. Lab Data: Labs: Lab Results 05/14/19 05/14/19 Range/Units 22:42 22:42 WBC 6.5 (4.0-10.0) 10^3/ uL RBC 3.78 L (4.1-5.3) 10^6/u L Hgb 10.5 L (11.7-16.6) g/dL Hct 34.4 L (42.0-52.0) % MCV 91.0 (80-94) fL MCH 27.8 L (28.0-34.0) pg MCHC 30.5 (30.0-36.0) g/dL RDW 16.2 H (12.1-15.1) % Plt Count 203 (130-400) 10^3/c mm MPV 9.7 (7.4-10.4) fL Neut % (Auto) 71.7 % Lymph % (Auto) 13.5 % [place] % (Auto) 12.0 % Eos % (Auto) 1.4 % Baso % (Auto) 1.1 % Neut # (Auto) 4.7 (1.8-7.7) 10^3/u L Lymph # (Auto) 0.9 (0.8-4.8) 10^3/u L [place] # (Auto) 0.8 (0.2-0.9) 10^3/u L Eos # (Auto) 0.1 (0.0-0.8) 10^3/u L Baso # (Auto) 0.1 (0.0-0.1) 10^3/u L Nucleated RBC % (a uto) 0 % Nucleated RBCs # 0.0 /100WBC Sodium 142 (136-145) mmol/L Potassium 4.6 (3.5-5.1) mmol/L Chloride 106 (98-107) mmol/L Carbon Dioxide 24 (22-29) mmol/L Anion Gap 16.6 (5-19) BUN 21 (8-23) mg/dL Creatinine 0.9 (0.7-1.2) mg/dL Glucose 121 H (65-115) mg/dL Calcium 9.8 (8.5-10.5) mg/dL Total Bilirubin 0.3 (0.15-1.2) mg/dL AST 12 (0-40) U/L ALT 13 (0-41) U/L Alkaline Phosphata se 102 (40-130) IU/L Total Protein 7.1 (6.6-8.7) g/dL Albumin 4.2 (3.5-5.2) g/dL Globulin 2.9 (1.3-4.6) g/dL Discharge Plan Discharge Patient Disposition: Home, Self-Care Clinical Impression: Accidental overdose Qualifiers: Encounter type: initial encounter Qualified Code(s): T50.901A - Poisoning by unspecified drugs, medicaments and biological substances, accidental (unintentional), initial encounter Condition: Stable Prescriptions: No Action carvedilol 12.5 mg tablet 12.5 mg PO BID RF: 0 cetirizine 10 mg capsule 10 mg PO PRN PRN (Reason: Allergy Symptoms) RF: 0 gabapentin 300 mg capsule 300 mg PO TID RF: 0 hydrocortisone 2.5 % cream 1 applic TOPICAL BID PRN (Reason: Itching) RF: 0 oxybutynin chloride 5 mg tablet 5 mg PO ONCE RF: 0 simvastatin 5 mg tablet 5 mg PO ONCE RF: 0 aspirin 81 mg tablet,delayed release (DR/EC) 81 mg PO ONCE RF: 0 leflunomide [Arava] 20 mg tablet 20 mg PO DAILY Qty: 30 RF: 2 esomeprazole magnesium [Nexium] 40 mg capsule,delayed release(DR/EC) 40 mg PO DAILY Qty: 30 RF: 5 amlodipine 5 mg Tablet 5 mg PO BID RF: 0 nitroglycerin [Nitrostat] 0.4 mg Tablet, Sublingual 0.4 mg SUBLINGUAL Q5M PRN (Reason: Chest Pain) RF: 0 levothyroxine [Synthroid] 137 mcg tablet 137 mcg PO DAILY RF: 0 lisinopril 10 mg tablet 20 mg PO BID RF: 0 liothyronine 5 mcg Tablet 10 mcg PO DAILY RF: 0 aspirin 325 mg Tablet,Delayed Release (Dr/Ec) 325 mg PO DAILY RF: 0 Discharge Orders: Discharge Order (Routine); Ordered 05/15/19 Ordered By: Kat Tapia Referrals: Marsha Turner MD [Primary Care Provider] - Discharge Diet: Usual diet Discharge Activity: Resume usual activity Coding Level of Care Code ED Gas Pump Attendant for Chg Fwd Exam Detailed
[2019-05-15] MEDS: sodium chloride 0.9% 1,000 ML 999 ML IV (00:42)
--- NOTE | 2019-05-15 00:44 | PC.NURSE ---
Introduced self to patient and initiated vital signs. Patient presents A&O x 4. NAD, ABCs intact, MAEW and agreeable to treatment. Respirations are even and unlabored. Pt states medications taken before coming to ER are his bp medications. Pt states that the chief complaint for the ER visit today is due to accidentally taking a 2x dose of his bp medications this evening. Pt denies any vision disturbances or lightheadedness. Bed left in lowest position in semi-fowlers with side rails up.Reassured patient of needs and will continue to monitor.
--- NOTE | 2019-05-15 01:23 | PC.NURSE ---
Agree with assessment as provided.
--- NOTE | 2019-05-15 02:50 | PC.NURSE ---
Poison control called to check status on pt. Charity informed pt is to be d/c to home
[2019-05-15 03:00] VITALS: BP 126/72; PULSE 74; RESP 18; O2SAT 96
== END 2019-05-15 03:02 | disposition home or self-care (01) ==
PROVIDERS: Emergency Provider Physician Assistant; Family Provider Internal Medicine; PCP Internal Medicine
DX: T44.7X1A Poisoning by beta-adrenoreceptor antagonists, accidental (unintentional), initial encounter (principal); T46.4X1A Poisoning by angiotensin-converting-enzyme inhibitors, accidental (unintentional), initial encounter; T46.1X1A Poisoning by calcium-channel blockers, accidental (unintentional), initial encounter
CPT/HCPCS: 80053; 85025; 93005; 96360; 99282; 99283; J7030

== ENCOUNTER → 2019-05-22 12:57 | Outpatient (BNVA) | payer MEDICARE, OTHER, SELFPAY | PROVIDERS: Family Provider Internal Medicine; PCP Internal Medicine; Visit Provider Specialist | DX: M06.09 Rheumatoid arthritis without rheumatoid factor, multiple sites (principal); M35.9 Systemic involvement of connective tissue, unspecified; Z79.899 Other long term (current) drug therapy; Z11.59 Encounter for screening for other viral diseases; Z72.89 Other problems related to lifestyle | CPT/HCPCS: 36415; 73502; 80076; 82565; 85007; 85027; 85651; 86140; 86480; 86704; 86803; 87340 ==

== ENCOUNTER 2019-07-13 19:45 | Observation (INO) | payer MEDICARE, OTHER, SELFPAY ==
[2019-07-13 19:46] VITALS: BP 127/86; PULSE 95; RESP 18; TEMP 37.3; O2SAT 94; BMI 34.4
--- NOTE | 2019-07-13 19:52 | XR_ITS ---
WS: [id number] PORTABLE CHEST HISTORY: cough COMPARISON: 03/29/2019 Lungs are clear and well expanded. No pleural effusion or pneumothorax. Cardiac size: Moderately enlarged cardiac silhouette. Mediastinum/Aorta: Ectatic aorta. Extensive surgical hardware over the lower cervical spine. XR/XR chest 1V portable [id number] IMPRESSION: Moderate cardiomegaly. No pneumonia.
--- NOTE | 2019-07-13 19:53 | ECG_ITS ---
Measurements Intervals [place] Rate: 97 P: [place]: 0 QRS: -66 QRSD: 101 T: 33 QT: 337 QTc: 428 SINUS RHYTHM POSSIBLE RIGHT VENTRICULAR CONDUCTION DELAY [RSR (QR) IN V1/V2] MINIMAL VOLTAGE CRITERIA FOR LVH, CONSIDER NORMAL VARIANT POSSIBLE ANTERIOR MYOCARDIAL INFARCTION,OF INDETERMINATE AGE Compared to ECG 05/14/2019 23:18:01 Intraventricular conduction delay no longer present Myocardial infarct finding still present Electronically Signed On 07-14-2019 15:34:22 CDT by Taylor Meeks M.D. [email or web address]
[2019-07-13 19:56] VITALS: BP 127/86; PULSE 93; RESP 20; O2SAT 95
[2019-07-13] MEDS: sodium chloride 0.9% 1,000 ML 100 ML IV (20:03)
[2019-07-13] MEDS: nitroglycerin 0.4 mg sublingual Tablet SUBLINGUAL ×2 (20:04→20:09)
--- NOTE | 2019-07-13 20:05 | ED_ITS ---
HPI - Chest Pain General: Chief Complaint: Chest Pain Stated Complaint: CHEST PAIN Time Seen by Provider: 07/13/19 19:50 History of Present Illness: HPI narrative: Mr. Marinelli is a very nice 73-year-old male who comes in complaining of chest pain. He describes the pain as a pressure and tightness that started while he was watching his son work on a vehicle. He tried his own sublingual nitros at home but got no relief. EMS was called and here took an aspirin and got some relief with their nitroglycerin sublingual. He had associated shortness of breath but denies any nausea vomiting, diaphoresis but did have radiation to his left arm. The symptoms have been intermittent since they began today. The patient is unaware of any aggravating or alleviating factors. Patient states he has a history of coronary disease and heart attack. Associated symptoms: Reports dyspnea; Deny abdominal pain, diaphoresis, fever(s), nausea, palpitations, syncope or vomiting Review of Systems General: Reports: other (negative unless marked) Const: Denies: fever, chills, body aches, fatigue, malaise or diaphoresis Eyes: Denies: change in vision or blurry vision ENMT: Denies: throat pain, painful swallowing, hoarseness, ear pain, ear discharge, Change in hearing or nasal discharge Card: Reports: chest pain; Denies: palpitations, irregular heart rhythm, syncope, pre-syncope, shortness of breath on exertion or shortness of breath when lying down Resp: Reports: shortness of breath; Denies: productive cough, non-productive cough, wheezing, coughing up blood or chest congestion GI: Denies: abdominal pain, nausea, vomiting, vomiting blood, coffee grounds in vomit, diarrhea, constipation, cramping, blood in stool or black tarry stool : Denies: flank pain, difficulty urinating, painful urination, urinary frequency, urinary urgency, decreased urine ouput, urinary incontinence or blood in urine Musc: Denies: neck pain, back pain, extremity pain, extremity swelling, joint pain, joint swelling, joint warmth or joint stiffness Skin/Breast: Denies: rash, skin tenderness or yellow skin Neuro: Denies: headache, numbness in extremities, weakness in extremities, changes in sensation, lack of coordination, difficulty walking, dizziness, vertigo or confusion Endo: Denies: excessive thirst, tired all the time, cold intolerance, excessive sweating, flushing or hot flashes Petey/Lymph: Denies: easy bruising, easy bleeding, petechiae or enlarged lymph nodes All/Imm: Denies: hives, throat swelling, tongue swelling, facial swelling or acute wheezing PFSH ED PFSH: Medical History (Updated 07/13/19 @ 23:57 by Naz oGode MD) Cervical postlaminectomy syndrome Chronic low back pain COPD (chronic obstructive pulmonary disease) DJD (degenerative joint disease) Gastroparesis GERD (gastroesophageal reflux disease) 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, greater than 8 weeks H/O prostate cancer HTN (hypertension) Hyperlipidemia Hypothyroid Immunosuppression Inflammatory arthritis FUAD (obstructive sleep apnea) Undifferentiated connective tissue disease Surgical History (Updated 07/13/19 @ 21:50 by Naz Goode MD) H/O colonoscopy 2012 H/O esophagogastroduodenoscopy 2012 H/O neck surgery x 2 H/O total knee replacement right and left History of abdominal aortic aneurysm (AAA) repair History of back surgery x 7 History of cardiac cath 7 years ago nonobstructive, negative stress test 1 year ago 2019 History of hip surgery RIGHT 04/11/19 History of tonsillectomy and adenoidectomy History of total left hip arthroplasty Hx of appendectomy Hx of cholecystectomy 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 Family History Mother Bleeding disorder Other CAD (coronary artery disease) Cancer Stroke Denies family history of Anesthesia complication Social History Smoking and tobacco status: never smoked Alcohol intake: never Household members: spouse Marital status: Current occupational status: retired Physical Exam Const: COMMON NORMALS: no apparent distress, oriented x3, no limitations, healthy appearing and well nourished EXAM LIMITATIONS: no altered mental status GENERAL APPEARANCE: cooperative, well kempt and well developed ORIENTATION/CONSCIOUSNESS: Yes awake HENMT: COMMON NORMALS: normocephalic, head/scalp atraumatic, hearing grossly normal bilaterally, external ears normal, EAC's normal, external nose normal and moist oral mucous membranes HEAD & SCALP: normal to inspection, normocephalic and atraumatic FACE & SINUS: normal facial exam and face symmetric NOSE: external nose normal and nares normal EXTERNAL EAR: Yes external ears normal EXTERNAL AUDITORY CANAL: EAC's normal MOUTH: oral and palatal mucosa normal and tongue normal Eye: COMMON NORMALS: PERRL, EOMs intact bilaterally, conjunctivae normal and no scleral icterus GENERAL EYE: normal appearance of both eyes and normal light reflex CONJUNCTIVA: Yes conjunctivae normal SCLERA: sclerae normal CORNEA: Yes corneas normal PUPIL: Yes PERRL DIRECT OPHTHALMOSCOPY: Yes normal light reflex Neck/C-Spine: COMMON NORMALS: full ROM, no lymphadenopathy, supple, no mening eal signs and no JVD GENERAL: Yes normal visual inspection and Yes trachea midline CERVICAL SPINE: Yes cervical ROM normal Chest: COMMONS NORMALS: inspection of chest normal and palpation of chest normal Resp: COMMON NORMALS: normal respiratory effort, no retractions, no use of accessory muscles and clear to auscultation bilaterally EFFORT & INSPECTION: Yes able to speak in complete sentences AUSCULTATION: clear to auscultation bilaterally Cardio: COMMON NORMALS: no JVD, regular rate, regular rhythm, S1 normal heart sound, S2 normal heart sound, no gallops, no clicks, no murmurs and no rub JUGULAR VENOUS DISTENTION: no JVD RATE: regular rate RHYTHM: regular rhythm HEART SOUNDS: S1 normal and S2 normal GI: COMMON NORMALS: soft to palpation, non-tender, no hepatosplenomegaly and no masses INSPECTION: Yes normal to inspection PALPATION: Yes soft and Yes no hepatosplenomegaly : COMMON NORMALS: Yes no CVA tenderness BLADDER/KIDNEY EXAM: Yes no CVA tenderness Back/Pelvis: COMMON NORMALS: no CVA tenderness, thoracic and lumbar spine normal to inspection, no thoracic nor lumbar tenderness and thoraco-lumbar ROM normal Extremity: COMMON NORMALS: normal to inspection, full ROM, normal capillary refill, no joint enlargement, no clubbing, cyanosis or edema and no calf tenderness Neuro: COMMON NORMALS: oriented x3, CN's II-XII intact bilaterally, moves all extremities, no focal motor deficits and no sensory deficits noted MENINGEAL SIGNS: Yes no meningeal signs Psych: COMMON NORMALS: mental status grossly normal, thought process normal, cooperative, affect normal, speech normal and activity/motor behavior normal APPEARANCE: Yes well kempt SPEECH: Yes normal speech THOUGHT PROCESS: normal thought process Skin: COMMON NORMALS: no rashes or lesions noted, skin turgor normal, no jaundice, no petechiae and no mottling GENERAL SKIN EXAM: no rashes or lesions noted and turgor normal Course Vital Signs: Vital signs: Vital Signs Temperature 98.4 F 07/13/19 22:00 Pulse Rate 77 07/13/19 23:51 Respiratory Rate 18 07/13/19 22:00 Blood Pressure 183/72 07/13/19 22:00 Pulse Oximetry 18 L 07/13/19 23:51 MDM - Chest Pain MDM Narrative: Medical decision making narrative: Mr. Marinelli is a nice 73-year-old male who comes in complaining of chest pain. He has a history of coronary disease and [place] according to him. The last heart cath report I can find was from 7 years ago. He had a negative stress test 1 year ago. I reviewed the case in full with Dr. Multani and he is agreeable to admission. He would like to consult would like the hospitalist to admit. He will plan in the morning whether to do a heart cath or to do a repeat stress test. I reviewed the case in full with Dr. Bajwa and he is agreeable to admission. Lab Data: Attestation: I reviewed the patient's lab results. Labs: Lab Results 07/13/19 07/13/19 07/13/19 Range/Units 10:15 19:35 19:35 WBC 7.3 (4.0-10.0) 10^3/ uL RBC 3.84 L (4.1-5.3) 10^6/u L Hgb 10.6 L (11.7-16.6) g/dL Hct 34.8 L (42.0-52.0) % MCV 90.6 (80-94) fL MCH 27.6 L (28.0-34.0) pg MCHC 30.5 (30.0-36.0) g/dL RDW 15.1 (12.1-15.1) % Plt Count 221 (130-400) 10^3/c mm MPV 9.5 (7.4-10.4) fL Neut % (Auto) 71.1 % Lymph % (Auto) 14.9 % Meigs % (Auto) 11.2 % Eos % (Auto) 1.8 % Baso % (Auto) 0.7 % Neut # (Auto) 5.2 (1.8-7.7) 10^3/u L Lymph # (Auto) 1.1 (0.8-4.8) 10^3/u L Meigs # (Auto) 0.8 (0.2-0.9) 10^3/u L Eos # (Auto) 0.1 (0.0-0.8) 10^3/u L Baso # (Auto) 0.1 (0.0-0.1) 10^3/u L Nucleated RBC % (a uto) 0 % Nucleated RBCs # 0.0 /100WBC PT 13.70 H (10.5-13.3) SECO NDS INR 1.02 (0.8-1.2) Sodium (136-145) mmol/L Potassium (3.5-5.1) mmol/L Chloride (98-107) mmol/L Carbon Dioxide (22-29) mmol/L Anion Gap (5-19) BUN (8-23) mg/dL Creatinine (0.7-1.2) mg/dL Glucose (65-115) mg/dL Calculated Osmolal ity (285-295) mOsm/k g Calcium (8.5-10.5) mg/dL Magnesium (1.7-2.3) mg/dL Total Bilirubin (0.15-1.2) mg/dL AST (0-40) U/L ALT (0-41) U/L Alkaline Phosphata se (40-130) IU/L Troponin T Baselin e (0-15) ng/mL NT-Pro-B Natriuret Pep (0-450) pg/mL Total Protein (6.6-8.7) g/dL Albumin (3.5-5.2) g/dL Globulin (1.3-4.6) g/dL Lipase (13-60) U/L Urine Color Yellow (Yellow) Urine Appearance Clear (CLEAR) Urine pH 6 (5-7) Ur Specific Gravit y 1.015 (1.005-1.030) Urine Protein Neg (Negative) Urine Glucose (UA) Norm (Normal) Urine Ketones Negative (Negative) Urine Blood Neg (Negative) Urine Nitrate Negative (Negative) Urine Bilirubin Neg (NEGATIVE) Urine Urobilinogen Norm (Negative) mg/dL Ur Leukocyte Christal ase Negative (Negative) Urine RBC Rare (0-2) /hpf Urine WBC Rare (0-5) /hpf Ur Squamous Epith Cells Rare (0-5) Urine Bacteria Trace (NONE) 07/13/19 07/13/19 Range/Units 19:35 19:35 WBC (4.0-10.0) 10^3/ uL RBC (4.1-5.3) 10^6/u L Hgb (11.7-16.6) g/dL Hct (42.0-52.0) % MCV (80-94) fL MCH (28.0-34.0) pg MCHC (30.0-36.0) g/dL RDW (12.1-15.1) % Plt Count (130-400) 10^3/c mm MPV (7.4-10.4) fL Neut % (Auto) % Lymph % (Auto) % Meigs % (Auto) % Eos % (Auto) % Baso % (Auto) % Neut # (Auto) (1.8-7.7) 10^3/u L Lymph # (Auto) (0.8-4.8) 10^3/u L Meigs # (Auto) (0.2-0.9) 10^3/u L Eos # (Auto) (0.0-0.8) 10^3/u L Baso # (Auto) (0.0-0.1) 10^3/u L Nucleated RBC % (a uto) % Nucleated RBCs # /100WBC PT (10.5-13.3) SECO NDS INR (0.8-1.2) Sodium 142 (136-145) mmol/L Potassium 3.9 (3.5-5.1) mmol/L Chloride 104 (98-107) mmol/L Carbon Dioxide 25 (22-29) mmol/L Anion Gap 16.9 (5-19) BUN 11 (8-23) mg/dL Creatinine 1.1 (0.7-1.2) mg/dL Glucose 92 (65-115) mg/dL Calculated Osmolal ity 290 (285-295) mOsm/k g Calcium 9.2 (8.5-10.5) mg/dL Magnesium 2.2 (1.7-2.3) mg/dL Total Bilirubin 0.3 (0.15-1.2) mg/dL AST 19 (0-40) U/L ALT 15 (0-41) U/L Alkaline Phosphata se 86 (40-130) IU/L Troponin T Baselin e 22 H (0-15) ng/mL NT-Pro-B Natriuret Pep 108 (0-450) pg/mL Total Protein 6.6 (6.6-8.7) g/dL Albumin 4.1 (3.5-5.2) g/dL Globulin 2.5 (1.3-4.6) g/dL Lipase 10 L (13-60) U/L Urine Color (Yellow) Urine Appearance (CLEAR) Urine pH (5-7) Ur Specific Gravit y (1.005-1.030) Urine Protein (Negative) Urine Glucose (UA) (Normal) Urine Ketones (Negative) Urine Blood (Negative) Urine Nitrate (Negative) Urine Bilirubin (NEGATIVE) Urine Urobilinogen (Negative) mg/dL Ur Leukocyte Christal ase (Negative) Urine RBC (0-2) /hpf Urine WBC (0-5) /hpf Ur Squamous Epith Cells (0-5) Urine Bacteria (NONE) Imaging Data^: CXR: My impression: Cardiomegaly and tortuous aorta. Findings similar to previous. No acute cardiopulmonary findings. EKG Data^: EKG 1: Attestation: I personally reviewed and interpreted this EKG as follows: EKG interpretation date: 07/13/19 EKG interpretation time: 19:54 Interpretation: Normal sinus rhythm at 97 beats a minute, LVH, nonspecific interventricular conduction delay, nonspecific ST and T wave changes. Similar to previous. Discharge Plan Discharge Patient Disposition: Placed in Observation Admit Provider: Naz Goode Clinical Impression: Chest pain Qualifiers: Chest pain type: unspecified Qualified Code(s): R07.9 - Chest pain, unspecified Condition: Stable Referrals: Marsha Turner MD [Primary Care Provider] - Discharge Date/Time: 07/13/19 21:54 Coding Level of Care Code ED Logging Superintendent for Chg Fwd Exam Comprehensive
[2019-07-13 20:28] LABS: Basophils # 0.1 10^3/uL (0.0-0.1); Basophils % 0.7 %; Eosinophils # 0.1 10^3/uL (0.0-0.8); Eosinophils % 1.8 %; Hematocrit 34.8 % (42.0-52.0); Hemoglobin 10.6 g/dL (11.7-16.6); Lymphocytes # 1.1 10^3/uL (0.8-4.8); Lymphocytes % 14.9 %; Mean Corpuscular HGB Conc 30.5 g/dL (30.0-36.0); Mean Corpuscular Hemoglobin 27.6 pg (28.0-34.0); Mean Corpuscular Volume 90.6 fL (80-94); Mean Platelet Volume 9.5 fL (7.4-10.4); Monocytes # 0.8 10^3/uL (0.2-0.9); Monocytes % 11.2 %; Neutrophils # 5.2 10^3/uL (1.8-7.7); Neutrophils % 71.1 %; Nucleated Red Blood Cells % 0 %; Platelet Count 221 10^3/cmm (130-400); Red Blood Count 3.84 10^6/uL (4.1-5.3); Red Cell Distribution Width 15.1 % (12.1-15.1); White Blood Count 7.3 10^3/uL (4.0-10.0)
[2019-07-13 20:41] LABS: Troponin(5th) Baseline 22 ng/mL (0-15)
[2019-07-13 20:48] LABS: Alanine Aminotransferase 15 U/L (0-41); Albumin Level 4.1 g/dL (3.5-5.2); Alkaline Phosphatase 86 IU/L (40-130); Anion Gap 16.9 (5-19); Aspartate Amino Transferase 19 U/L (0-40); Blood Urea Nitrogen 11 mg/dL (8-23); Calcium 9.2 mg/dL (8.5-10.5); Carbon Dioxide 25 mmol/L (22-29); Chloride 104 mmol/L (98-107); Creatinine Clr Calc Pharmacy 71.6845; Globulin 2.5 g/dL (1.3-4.6); Glucose 92 mg/dL (65-115); Lipase 10 U/L (13-60); Magnesium 2.2 mg/dL (1.7-2.3); NT Pro B Type Natriuretic Pept 108 pg/mL (0-450); Osmolality Calculated 290 mOsm/kg (285-295); Potassium 3.9 mmol/L (3.5-5.1); Sodium 142 mmol/L (136-145); Total Bilirubin 0.3 mg/dL (0.15-1.2); Total Protein 6.6 g/dL (6.6-8.7)
[2019-07-13 21:27] LABS: INR 1.02 (0.8-1.2)
[2019-07-13 21:45] VITALS: BP 135/69; PULSE 81; RESP 17; O2SAT 94
--- NOTE | 2019-07-13 21:49 | P.HP_ITS ---
Providers/Chief Complaint Admitting Physician: Naz Goode MD Primary Care Provider: Marsha Turner MD Chief Complaint: CHEST PAIN History of Present Illness Kojo Marinelli is a 73 year old male who has history of hypertension, dyslipidemia, normal cardiac catheterization about 7 to 8 years ago, negative stress test 1 year ago, prostate cancer status post radiotherapy,, FUAD, hypothyroidism, seronegative rheumatoid arthritis came in today with chief complaint of chest pain. Patient is stating that around 4 PM he was sitting in his garage watching his son repairing his car when he started experiencing substernal chest pain, excruciating, pressure-like sensation, his pain was radiating towards his left arm, he went inside and try to keep himself at rest, his pain was 10/10, he was given 3 sublingual nitroglycerin which relieved his symptoms, chest pain lasted for 5 to 10 minutes. He was trying his best to keep himself at rest to decrease numbness and tingling of left arm. He also experienced shortness of breath without any nausea or vomiting. Patient is stat ing that he is very independent for his daily activities, has not experienced chest pain or shortness of breath recently, he is denying recent sick contacts, recent traveling, dysuria, orthopnea or PND. He is able to carry out his daily activities without assistance. His primary care physician has prescribed ketoconazole and steroid medication for nasolabial fold dermatitis. Patient is telling me that Dr. Pimentel started leflunomide for his osteoarthritis, review of records revealed that he has undifferentiated connective tissue disorder with seronegative RA Diagnostics in ER revealed normal hemodynamics, delta troponin negative, ordered TSH, EKG shows normal sinus rhythm with possibility for left anterior fascicular block, no QTC prolongation Review of Systems Const: Denies: fever or chills Eyes: Denies: change in vision ENMT: Denies: throat pain Card: Reports: chest pain and swelling of feet/ankles; Denies: palpitations or irregular heart rhythm Resp: Reports: shortness of breath GI: Denies: abdominal pain : Denies: flank pain Musc: Reports: joint pain and joint stiffness; Denies: neck pain Skin/Breast: Reports: changing lesion, chronic lesion and stretch eaton Neuro: Denies: headache Psych: Denies: anxiety Endo: Reports: cold intolerance; Denies: excessive urination Petey/Lymph: Denies: easy bruising All/Imm: Denies: hives Medications/Allergies Home Medications Medication Instructions Recorded Confirmed Last Taken Type hydrocortisone 2.5 % topical cream 1 applic TOPICAL BID PRN 03/21/19 07/13/19 04/04/19 History oxybutynin chloride 5 mg tablet 5 mg PO DAILY tab 03/21/19 07/13/19 07/13/19 History levothyroxine [Synthroid] 137 mcg PO DAILY 04/11/19 07/13/19 07/13/19 History esomeprazole magnesium 40 mg 40 mg PO DAILY #30 cap 04/25/19 07/13/19 07/13/19 Rx capsule,delayed release leflunomide 20 mg tablet 20 mg PO DAILY #30 tab 04/25/19 07/13/19 07/13/19 Rx liothyronine 10 mcg PO DAILY 05/14/19 07/13/19 07/13/19 History carvedilol 12.5 mg tablet 12.5 mg PO BID 90 Days #180 tab 05/18/19 07/13/19 07/13/19 Rx lisinopril 10 mg tablet 20 mg PO BID 90 Days #360 tab 05/18/19 07/13/19 07/13/19 Rx nitroglycerin 0.4 mg sublingual 0.4 mg SUBLINGUAL Q5M PRN 30 Days 05/18/19 07/13/19 07/13/19 Rx tablet #25 tab gabapentin 300 mg capsule 300 mg PO TID #90 cap 06/27/19 07/13/19 07/13/19 Rx meclizine 25 mg PO Q6H PRN 07/13/19 07/13/19 07/13/19 History simvastatin 5 mg PO DAILY 07/13/19 07/13/19 07/13/19 History Allergies Allergy/AdvReac Type Severity Reaction Status Date / Time adhesive tape Allergy ALGY-Rash Verified 05/22/19 13:24 metoclopramide [From Reglan] Allergy Unknown Verified 05/22/19 13:24 morphine Allergy ALGY-Hives Verified 05/22/19 13:24 tamsulosin [From Flomax] Allergy ADR/ALGY-Hy Verified 05/22/19 13:24 potension zolpidem [From Ambien] Allergy Unknown Verified 05/22/19 13:24 PFSH Acute PFSH: Medical History (Updated 07/13/19 @ 23:57 by Naz Goode MD) Cervical postlaminectomy syndrome Chronic low back pain COPD (chronic obstructive pulmonary disease) DJD (degenerative joint disease) Gastroparesis GERD (gastroesophageal reflux disease) 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, greater than 8 weeks H/O prostate cancer HTN (hypertension) Hyperlipidemia Hypothyroid Immunosuppression Inflammatory arthritis FUAD (obstructive sleep apnea) Undifferentiated connective tissue disease Surgical History (Updated 07/13/19 @ 21:50 by Naz Goode MD) H/O colonoscopy 2011 H/O esophagogastroduodenoscopy 2012 H/O neck surgery x 2 H/O total knee replacement right and left History of abdominal aortic aneurysm (AAA) repair History of back surgery x 7 History of cardiac cath 7 years ago nonobstructive, negative stress test 1 year ago 2019 History of hip surgery RIGHT 04/11/19 History of tonsillectomy and adenoidectomy History of total left hip arthroplasty Hx of appendectomy Hx of cholecystectomy 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 Family History Mother Bleeding disorder Other CAD (coronary artery disease) Cancer Stroke Denies family history of Anesthesia complication Social History Smoking and tobacco status: never smoked Alcohol intake: never Household members: spouse Marital status: Current occupational status: retired Vitals/I&O/Wt Last Vital Signs Temp 99.1 F 07/13/19 19:46 Pulse 81 07/13/19 21:45 Resp 17 07/13/19 21:45 BP 135/69 07/13/19 21:45 Pulse Ox 94 07/13/19 21:45 07/13/19 07/13/19 07/13/19 06:59 14:59 22:59 Intake Total 1000 / 1000 Balance 1000 / 1000 Weight last 48 hrs Weight 108.862 kg Physical Exam Narrative: EXAM NARRATIVE: Very pleasant elderly male sitting comfortable in his bed S1, S2 no active signs of heart failure however trace pedal edema Lungs are clear to auscultation without adventitious sounds Abdomen soft nontender nondistended Alert oriented x3 Neurologically nonfocal exam He has exfoliation of the skin around nasolabial fold, EOMI, PERRLA Appropriate mood and affect Data : 07/13/19 19:35 07/13/19 19:35 A&P Assessment and plan (1) Unstable angina: Status: Acute (2) Immunosuppression: Status: Acute (3) Sleep apnea: Status: Acute Additional A&P Information Unstable angina Typical chest pain, substernal, relieved with nitro and heparin at rest, no significant rise in troponin, EKG is not showing ischemic or infarctive changes, heart score6, no indication for ACS protocol, Review of his records revealed EF 60% trace TR, cardiac stress test 07/01-cheryl for coronary ischemia Dr. Fuentes has been consulted I would not order stress test at this point however will make him n.p.o. after midnight, considering high risk factors for coronary disease and typical unstable angina symptoms he might be a good candidate for coronary angiogram especially with underlying history of inflammatory arthritis and history of prostate cancer status post radiotherapy I would continue lisinopril, carvedilol and add atorvastatin along aspirin Seronegative rheumatoid arthritis: Patient is taking leflunomide, considering inflammatory arthritis I would add aspirin, literature supports the use of a spirin in people with inflammatory arthritis which increases atherosclerosis of coronary vessels Hypothyroidism: Patient is on T3 and T4 supplements, would continue, check TSH GERD: Continue PPI Cardiac diet/n.p.o. after midnight, might need coronary angiogram in the morning DVT prophylaxis: Lovenox Full code Attestations Medical Necessity Statement*: Anticipating discharge less than 48 hours, ryan squires his clinical stay will depend on cardiology assessment in the morning, at this point patient is chest pain-free with no significant rise in troponin, if he needs coronary angiogram he might end up staying more than 2 midnights in the hospital Time Spent in Patient Care: 40 Coding Level of Care Code Acute Stars Specialist for Chg Fwd Diagnoses Unstable angina I20.0 Immunosuppression D89.9 Sleep apnea G47.30
--- NOTE | 2019-07-13 21:53 | ECG_ITS ---
Measurements Intervals [place] Rate: 75 P: 72 MD: 210 QRS: -57 QRSD: 135 T: 0 QT: 398 QTc: 447 SINUS RHYTHM WITH FIRST DEGREE AV BLOCK INTRAVENTRICULAR CONDUCTION DELAY [130+ ms QRS DURATION] Compared to ECG 05/14/2019 23:18:01 First degree AV block now present Myocardial infarct finding no longer present Electronically Signed On 07-14-2019 15:55:56 CDT by Taylor Meeks M.D. [email or web address]
[2019-07-13 22:00] VITALS: BP 183/72; PULSE 78; RESP 18; TEMP 36.9; O2SAT 96
[2019-07-13 22:03] LABS: Troponin 5 2HR 20.05 ng/mL (0-15)
[2019-07-13] MEDS: enoxaparin 40 mg/0.4 mL Syringe SUBCUT (22:26)
[2019-07-13 22:59] LABS: Troponin 5 2HR Delta -1.95 ABS# (0-10)
[2019-07-13 23:23] LABS: Bilirubin Urine Neg (NEGATIVE); Blood Urine Neg (Negative); Glucose Urine UA Norm (Normal); Ketones Urine Negative (Negative); Leukocyte Esterase Urine Negative (Negative); Nitrate Urine Negative (Negative); Protein Urine Neg (Negative); Specific Gravity, Urine 1.015 (1.005-1.030); Urine Appearance Clear (CLEAR); Urine Color Yellow (Yellow); Urobilinogen Urine Norm (Negative); pH Urine 6 (5-7)
[2019-07-13 23:24] LABS: Bacteria Urine TRACE; RBC Urine RARE /hpf (0-2); Squamous Epithelial Cell Urine RARE (0-5); WBC Urine RARE /hpf (0-5)
[2019-07-13 23:29] LABS: Thyroid Stimulating Hormone 0.22 uIU/mL (0.27-4.20)
[2019-07-13 23:51] VITALS: PULSE 77; O2SAT 18
--- NOTE | 2019-07-14 01:53 | ECG_ITS ---
Measurements Intervals [place] Rate: 83 P: 74 MD: 216 QRS: -59 QRSD: 142 T: 20 QT: 396 QTc: 466 SINUS RHYTHM WITH FIRST DEGREE AV BLOCK INTRAVENTRICULAR CONDUCTION DELAY [130+ ms QRS DURATION] Compared to ECG 05/14/2019 23:18:01 First degree AV block now present Myocardial infarct finding no longer present Electronically Signed On 07-14-2019 15:54:46 CDT by Taylor Meeks M.D. [email or web address]
[2019-07-14 02:11] LABS: Basophils % 0.8 %; Eosinophils # 0.1 10^3/uL (0.0-0.8); Eosinophils % 2.4 %; Hematocrit 29.8 % (42.0-52.0); Hemoglobin 9.3 g/dL (11.7-16.6); Lymphocytes % 19.8 %; Mean Corpuscular HGB Conc 31.2 g/dL (30.0-36.0); Mean Corpuscular Hemoglobin 28.3 pg (28.0-34.0); Mean Corpuscular Volume 90.6 fL (80-94); Mean Platelet Volume 9.3 fL (7.4-10.4); Monocytes # 0.6 10^3/uL (0.2-0.9); Monocytes % 12.5 %; Neutrophils # 3.3 10^3/uL (1.8-7.7); Neutrophils % 64.3 %; Nucleated Red Blood Cells % 0 %; Platelet Count 174 10^3/cmm (130-400); Red Blood Count 3.29 10^6/uL (4.1-5.3); Red Cell Distribution Width 15.3 % (12.1-15.1); White Blood Count 5.1 10^3/uL (4.0-10.0)
[2019-07-14 02:29] LABS: Blood Urea Nitrogen 10 mg/dL (8-23); Calcium 8.6 mg/dL (8.5-10.5); Carbon Dioxide 24 mmol/L (22-29); Chloride 108 mmol/L (98-107); Glucose 105 mg/dL (65-115); Osmolality Calculated 290 mOsm/kg (285-295); Sodium 142 mmol/L (136-145)
[2019-07-14 02:32] LABS: Troponin 5 6HR 21.98 ng/mL (0-15)
[2019-07-14 02:48] LABS: Troponin 5 6HR Delta -0.02 ng/L (0-12)
[2019-07-14 04:00] VITALS: BP 137/78; PULSE 83; RESP 16; TEMP 37.1; O2SAT 95
[2019-07-14 08:00] VITALS: BP 159/76; PULSE 72; RESP 16; TEMP 36.9; O2SAT 95
[2019-07-14] MEDS: pantoprazole DR 40 mg Tablet PO (09:35)
[2019-07-14] MEDS: aspirin 81 mg EC Tablet PO (09:35)
[2019-07-14] MEDS: carvedilol 12.5 mg Tablet PO (09:36)
[2019-07-14] MEDS: gabapentin 300 mg Capsule PO ×2 (09:36→15:59)
[2019-07-14] MEDS: liothyronine 5 mcg Tablet 10 MCG PO (09:42)
--- NOTE | 2019-07-14 09:51 | PC.CHAP ---
Pastoral Care Encounter/Spiritual Assessment Type of Contact [] Declined lubrication servicer visit [] Patient/Family/Request visit [] Outpatient visit [] Follow-up visit [] Physician referral [] Code/Alert [x] Routine visit [] Staff referral [] Actively dying [] Patient sleeping [] Family support [] [] Out of room [] Palliative care [] [] Receiving care in room [] Pre-surgical visit [] Trauma [] Long length of stay [] ICU visit [] Other: Relational/Emotional Strength [] Patient feels connected with others/family/visitors/staff [] Distress [] Loneliness/isolation [] Abandonment Spirituality of Patient [x] Person of Nini [x] Attends Orthodox of their Nini [x] Believes in Prayer [x] Reads Bible or Yarsani materials [] There are Spiritual issues to be addressed [employer] Developer Interventions [x] Prayer [] Active listening [] Non-anxious presence [] Spiritual/emotional support [] Crisis/trauma care [] Spiritual counseling [] Bereavement support [] Provided bereavement packet [] Provided Bible/devotional materials [] Provided toy/stuffed animal, coloring book to patient or family member [] Provided Communion [] Anointing/[place] [] Salvation [x]Completed spiritual assessment [] Other: Impact on Illness or Injury [] Angry [] Fearful [] Anxious [] Often cries [] Exhaustion [] Unable to work [] Unable to attend yarsanism [] Unable to walk/stand [] Unable to read [] Unable to drive [] Unable to eat/drink [] Unable to sleep [] Unable to be with family [] Patient intubated [] Other: Summary 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 Patient feeling much better. Patient has peace with doctor finding out issue with heart. Time spent with patient 15 min
[2019-07-14 12:00] VITALS: BP 110/68; PULSE 72; RESP 16; TEMP 37.1; O2SAT 93
[2019-07-14 16:00] VITALS: BP 137/80; PULSE 66; RESP 16; TEMP 37.1; O2SAT 94
--- NOTE | 2019-07-14 16:10 | PM.DCS ---
Discharge Providers Date of Admission: 07/13/19 21:16 Date of Discharge: July 14, 2019 Attending Provider at Admission: Naz Goode MD Attending Provider at Discharge: Keanu Valadez MD Primary Care Provider: Marsha Turner MD Diagnoses at Discharge Discharge Diagnosis (1) Unstable angina: Status: Acute Problem details: No evidence of myocardial infarction. Troponin with no significant delta. Cardiology has evaluated and believes he is safe to go home, initiate Imdur, follow-up in clinic (2) Immunosuppression: Status: Acute (3) Sleep apnea: Status: Acute Reason for Visit Reason for Visit: Reason For Visit: CHEST PAIN Hospital Course Hospital Course: Kojo presented to the hospital with chest discomfort. No significant EKG changes were noted. Troponin demonstrated no significant delta. Echocardiogram was performed demonstrating normal EF, no significant wall motion abnormalities. Cardiology consultation was obtained and based upon history and physical, echocardiogram, troponin, previous angiogram, they did not believe any further cardiac evaluation such as nuclear stress testing or angiogram was needed at this time. Patient had been chest discomfort free at the time of my interview. He was able to ambulate without discomfort. Cardiology believed Imdur could be added to his medication regimen, and that he should follow-up in clinic in 1 week. This was arranged. Aspirin was added. Statin was increased. Physical Exam Narrative: EXAM NARRATIVE: General exam is no apparent distress, adult male wishing to go home Cardiovascular regular in rhythm without murmur Lungs clear Abdomen is soft, positive bowel sounds Extremities no cyanosis clubbing or edema. Discharge Data Data Completed and Pending: Completed Studies During Hospitalization Category Date Time Status XR chest 1V david ble [id number] Stat Exams 07/13/19 19:52 Completed CV echo complete* [id number] Routine Ultrasound 07/14/19 21:59 Completed Pending at discharge Category Date Time Status Sestamibi Stress Test Request Routi ne Exams 07/13/19 21:59 Stop Req Labs from last 24 hours 07/14/19 07/14/19 07/14/19 01:46 01:46 01:46 WBC 5.1 RBC 3.29 L Hgb 9.3 L Hct 29.8 L MCV 90.6 MCH 28.3 MCHC 31.2 RDW 15.3 H Plt Count 174 MPV 9.3 Neut % (Auto) 64.3 Lymph % (Auto) 19.8 [place] % (Auto) 12.5 Eos % (Auto) 2.4 Baso % (Auto) 0.8 Neut # (Auto) 3.3 Lymph # (Auto) 1.0 [place] # (Auto) 0.6 Eos # (Auto) 0.1 Baso # (Auto) 0.0 Nucleated RBC % (a uto) 0 Nucleated RBCs # 0.0 PT INR Sodium 142 Potassium 4.0 Chloride 108 H Carbon Dioxide 24 Anion Gap 14.0 BUN 10 Creatinine 0.9 Glucose 105 Calculated Osmolal ity 290 Calcium 8.6 Magnesium Total Bilirubin AST ALT Alkaline Phosphata se Troponin I 6 Hour 21.98 H Troponin I Hi Sens Del -0.02 L Troponin T Baselin e Troponin T 120 Min [place] Troponin T NT-Pro-B Natriuret Pep Total Protein Albumin Globulin Lipase TSH Urine Color Urine Appearance Urine pH Ur Specific Gravit y Urine Protein Urine Glucose (UA) Urine Ketones Urine Blood Urine Nitrate Urine Bilirubin Urine Urobilinogen Ur Leukocyte Christal ase Urine RBC Urine WBC Ur Squamous Epith Cells Urine Bacteria 07/13/19 07/13/19 07/13/19 21:33 21:33 19:35 WBC RBC Hgb Hct MCV MCH MCHC RDW Plt Count MPV Neut % (Auto) Lymph % (Auto) [place] % (Auto) Eos % (Auto) Baso % (Auto) Neut # (Auto) Lymph # (Auto) [place] # (Auto) Eos # (Auto) Baso # (Auto) Nucleated RBC % (a uto) Nucleated RBCs # PT INR Sodium Potassium Chloride Carbon Dioxide Anion Gap BUN Creatinine Glucose Calculated Osmolal ity Calcium Magnesium Total Bilirubin AST ALT Alkaline Phosphata se Troponin I 6 Hour Troponin I Hi Sens Del Troponin T Baselin e 22 H Troponin T 120 Min [place] 20.05 [place] Troponin T -1.95 L NT-Pro-B Natriuret Pep Total Protein Albumin Globulin Lipase TSH 0.22 L Urine Color Urine Appearance Urine pH Ur Specific Gravit y Urine Protein Urine Glucose (UA) Urine Ketones Urine Blood Urine Nitrate Urine Bilirubin Urine Urobilinogen Ur Leukocyte Christal ase Urine RBC Urine WBC Ur Squamous Epith Cells Urine Bacteria 07/13/19 07/13/19 07/13/19 19:35 19:35 19:35 WBC 7.3 RBC 3.84 L Hgb 10.6 L Hct 34.8 L MCV 90.6 MCH 27.6 L MCHC 30.5 RDW 15.1 Plt Count 221 MPV 9.5 Neut % (Auto) 71.1 Lymph % (Auto) 14.9 [place] % (Auto) 11.2 Eos % (Auto) 1.8 Baso % (Auto) 0.7 Neut # (Auto) 5.2 Lymph # (Auto) 1.1 [place] # (Auto) 0.8 Eos # (Auto) 0.1 Baso # (Auto) 0.1 Nucleated RBC % (a uto) 0 Nucleated RBCs # 0.0 PT 13.70 H INR 1.02 Sodium 142 Potassium 3.9 Chloride 104 Carbon Dioxide 25 Anion Gap 16.9 BUN 11 Creatinine 1.1 Glucose 92 Calculated Osmolal ity 290 Calcium 9.2 Magnesium 2.2 Total Bilirubin 0.3 AST 19 ALT 15 Alkaline Phosphata se 86 Troponin I 6 Hour Troponin I Hi Sens Del Troponin T Baselin e Troponin T 120 Min [place] Troponin T NT-Pro-B Natriuret Pep 108 Total Protein 6.6 Albumin 4.1 Globulin 2.5 Lipase 10 L TSH Urine Color Urine Appearance Urine pH Ur Specific Gravit y Urine Protein Urine Glucose (UA) Urine Ketones Urine Blood Urine Nitrate Urine Bilirubin Urine Urobilinogen Ur Leukocyte Christal ase Urine RBC Urine WBC Ur Squamous Epith Cells Urine Bacteria 07/13/19 10:15 WBC RBC Hgb Hct MCV MCH MCHC RDW Plt Count MPV Neut % (Auto) Lymph % (Auto) [place] % (Auto) Eos % (Auto) Baso % (Auto) Neut # (Auto) Lymph # (Auto) [place] # (Auto) Eos # (Auto) Baso # (Auto) Nucleated RBC % (a uto) Nucleated RBCs # PT INR Sodium Potassium Chloride Carbon Dioxide Anion Gap BUN Creatinine Glucose Calculated Osmolal ity Calcium Magnesium Total Bilirubin AST ALT Alkaline Phosphata se Troponin I 6 Hour Troponin I Hi Sens Del Troponin T Baselin e Troponin T 120 Min [place] Troponin T NT-Pro-B Natriuret Pep Total Protein Albumin Globulin Lipase TSH Urine Color Yellow Urine Appearance Clear Urine pH 6 Ur Specific Gravit y 1.015 Urine Protein Neg Urine Glucose (UA) Norm Urine Ketones Negative Urine Blood Neg Urine Nitrate Negative Urine Bilirubin Neg Urine Urobilinogen Norm Ur Leukocyte Christal ase Negative Urine RBC Rare Urine WBC Rare Ur Squamous Epith Cells Rare Urine Bacteria Trace Vitals: Last Vital Signs Temp 98.8 F 07/14/19 12:00 Pulse 72 07/14/19 12:00 Resp 16 07/14/19 12:00 BP 110/68 07/14/19 12:00 Pulse Ox 93 07/14/19 12:00 Discharge Plan Discharge Patient Disposition: Home, Self-Care Condition: Stable Prescriptions: New atorvastatin 40 mg Tablet 40 mg PO BEDTIME Qty: 30 RF: 0 aspirin 81 mg Tablet,Delayed Release (Dr/Ec) 81 mg PO DAILY Qty: 30 RF: 0 isosorbide mononitrate 30 mg tablet extended release 24 hr 30 mg PO DAILY Qty: 30 RF: 0 Continued hydrocortisone 2.5 % cream 1 applic TOPICAL BID PRN (Reason: Itching) RF: 0 oxybutynin chloride 5 mg tablet 5 mg PO BEDTIME RF: 0 leflunomide [Arava] 20 mg tablet 20 mg PO DAILY Qty: 30 RF: 2 esomeprazole magnesium [Nexium] 40 mg capsule,delayed release(DR/EC) 40 mg PO DAILY Qty: 30 RF: 5 carvedilol 12.5 mg tablet 12.5 mg PO BID 90 Days Qty: 180 RF: 3 nitroglycerin [Nitrostat] 0.4 mg tablet, sublingual 0.4 mg SUBLINGUAL Q5M PRN (Reason: Chest Pain) 30 Days Qty: 25 RF: 6 gabapentin 300 mg capsule 300 mg PO TID Qty: 90 RF: 0 meclizine 25 mg tablet 25 mg PO Q6H PRN (Reason: UNKNOWN) RF: 0 lisinopril 10 mg Tablet 10 mg PO BID RF: 0 levothyroxine [Synthroid] 137 mcg tablet 125 mcg PO DAILY RF: 0 liothyronine 5 mcg Tablet 10 mcg PO DAILY RF: 0 Discontinued simvastatin 5 mg tablet 5 mg PO DAILY RF: 0 Discharge Orders: Discharge Order (Routine); Ordered 07/14/19 Ordered By: Keanu Valadez Referrals: Marsha Turner MD [Primary Care Provider] - 07/20/19 11:00 am Naz Russ MD [Physician] - 07/20/19 10:30 am Discharge Diet: Cardiac Discharge Activity: Increase activity as tolerated Patient Instructions: Aspirin (By mouth), Isosorbide Mononitrate (By mouth), Atorvastatin (By mouth), Noncardiac Chest Pain (DC), Chest Pain Stoplight Activity Restrictions/Additional Instructions: Return for any concerns. Note that Imdur has been added to regimen as well as aspirin and statin has been changed. Follow-up with primary care provider 3 to 5 days, cardiology 1 week. 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
--- NOTE | 2019-07-14 16:12 | PM.CONSULT ---
Providers/Reason For Consult Consulting Physican/Specialty*: Cardiology Reason for Consult*: Chest pain Attending Physician: Keanu Valadez MD Primary Care Provider: Marsha Turner MD History of Present Illness History of Present Illness Kojo Marinelli is a 73 year old male Normal coronaries by angiogram in 2013, nonspecific chest pain status post stress test last year which was negative for ischemia, history of arthritis, neuropathy, hypertension was admitted with one episode of chest pain for one hour. According to patient all of a sudden it hits him in the chest when did not get relief he came to the ER. EKG showed sinus rhythm without significant ST changes. He was ruled out for acute coronary syndrome overnight. Echocardiogram was performed that showed normal left ventricular ejection fraction without wall motion abnormality. Since last night patient did not have any more significant chest pain. These nonsmoker nondiabetic. In the near past he denies any exertional chest pressure pain or worsening of shortness of breath. He denies cough fever or chills nausea vomiting diarrhea or flulike symptoms. Review of Systems General: Reports: other (negative unless marked) Const: Denies: fever, chills, body aches, fatigue, malaise or diaphoresis Eyes: Denies: change in vision or blurry vision ENMT: Denies: throat pain, painful swallowing, hoarseness, ear pain, ear discharge, change in hearing or nasal discharge Card: Reports: chest pain and swelling of feet/ankles; Denies: palpitations, irregular heart rhythm, syncope, pre-syncope, shortness of breath on exertion or shortness of breath when lying down Resp: Reports: shortness of breath; Denies: productive cough, non-productive cough, wheezing, coughing up blood or chest congestion GI: Denies: abdominal pain, nausea, vomiting, vomiting blood, coffee grounds in vomit, diarrhea, constipation, cramping, blood in stool or black tarry stool : Denies: flank pain, difficulty urinating, painful urination, urinary frequency, urinary urgency, decreased urine ouput, urinary incontinence or blood in urine Musc: Reports: joint pain and joint stiffness; Denies: neck pain, back pain, extremity pain, extremity swelling, joint swelling or joint warmth Skin/Breast: Reports: changing lesion, chronic lesion and stretch eaton; Denies: rash, skin tenderness or yellow skin Neuro: Denies: headache, numbness in extremities, weakness in extremities, changes in sensation, lack of coordination, difficulty walking, dizziness, vertigo or confusion Psych: Denies: anxiety or sleeping more Endo: Reports: cold intolerance; Denies: excessive urination, excessive thirst, tired all the time, excessive sweating, flushing or hot flashes Petey/Lymph: Denies: easy bruising, easy bleeding, petechiae or enlarged lymph nodes All/Imm: Denies: hives, throat swelling, tongue swelling, facial swelling or acute wheezing Meds/Allergies Home Medications and Allergies Home Medications Medication Instructions Recorded Confirmed Last Taken Type hydrocortisone 2.5 % topical cream 1 applic TOPICAL BID PRN 03/21/19 07/13/19 04/04/19 History oxybutynin chloride 5 mg tablet 5 mg PO BEDTIME tab 03/21/19 07/14/19 07/13/19 History levothyroxine [Synthroid] 125 mcg PO DAILY 04/11/19 07/14/19 07/13/19 History esomeprazole magnesium 40 mg 40 mg PO DAILY #30 cap 04/25/19 07/13/19 07/13/19 Rx capsule,delayed release leflunomide 20 mg tablet 20 mg PO DAILY #30 tab 04/25/19 07/13/19 07/13/19 Rx liothyronine 10 mcg PO DAILY 05/14/19 07/13/19 07/13/19 History carvedilol 12.5 mg tablet 12.5 mg PO BID 90 Days #180 tab 05/18/19 07/13/19 07/13/19 Rx nitroglycerin 0.4 mg sublingual 0.4 mg SUBLINGUAL Q5M PRN 30 Days 05/18/19 07/13/19 07/13/19 Rx tablet #25 tab gabapentin 300 mg capsule 300 mg PO TID #90 cap 06/27/19 07/13/19 07/13/19 Rx meclizine 25 mg PO Q6H PRN 07/13/19 07/13/19 07/13/19 History simvastatin 5 mg PO DAILY 07/13/19 07/13/19 07/13/19 History lisinopril 10 mg PO BID 07/14/19 07/14/19 07/13/19 History Allergies Allergy/AdvReac Type Severity Reaction Status Date / Time adhesive tape Allergy ALGY-Rash Verified 05/22/19 13:24 metoclopramide [From Reglan] Allergy Unknown Verified 05/22/19 13:24 morphine Allergy ALGY-Hives Verified 05/22/19 13:24 tamsulosin [From Flomax] Allergy ADR/ALGY-Hy Verified 05/22/19 13:24 potension zolpidem [From Ambien] Allergy Unknown Verified 05/22/19 13:24 Current Medications Current Medications Generic Name Dose Route Start Last Admin Trade Name [place] PRN Reason Stop Dose Admin Aspirin 81 mg 07/14/19 09:00 07/14/19 09:35 Aspirin Ec PO 81 mg DAILY FATIMAH Administration Carvedilol 12.5 mg 07/14/19 09:00 07/14/19 09:36 Coreg PO 12.5 mg BID FATIMAH Administration Enoxaparin Sodium 40 mg 07/13/19 22:00 07/13/19 22:26 Lovenox SUBCUT 40 mg Q24H FATIMAH Administration Gabapentin 300 mg 07/14/19 09:00 07/14/19 15:59 Neurontin PO 300 mg TID FATIMAH Administration Liothyronine Sodium 10 mcg 07/14/19 09:00 07/14/19 09:42 Cytomel PO 10 mcg DAILY FATIMAH Administration Pantoprazole Sodium 40 mg 07/14/19 09:00 07/14/19 09:35 Protonix PO 40 mg DAILY FATIMAH Administration PFSH Acute PFSH: Medical History Cervical postlaminectomy syndrome Chronic low back pain COPD (chronic obstructive pulmonary disease) DJD (degenerative joint disease) Gastroparesis GERD (gastroesophageal reflux disease) 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, greater than 8 weeks H/O prostate cancer HTN (hypertension) Hyperlipidemia Hypothyroid Immunosuppression Inflammatory arthritis FUAD (obstructive sleep apnea) Undifferentiated connective tissue disease Surgical History H/O colonoscopy 2011 H/O esophagogastroduodenoscopy 2012 H/O neck surgery x 2 H/O total knee replacement right and left History of abdominal aortic aneurysm (AAA) repair History of back surgery x 7 History of cardiac cath 7 years ago nonobstructive, negative stress test 1 year ago 2019 History of hip surgery RIGHT 04/11/19 History of tonsillectomy and adenoidectomy History of total left hip arthroplasty Hx of appendectomy Hx of cholecystectomy 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 Family History Mother Bleeding disorder Other CAD (coronary artery disease) Cancer Stroke Denies family history of Anesthesia complication Social History Smoking and tobacco status: never smoked Alcohol intake: never Household members: spouse Marital status: Current occupational status: retired Dietary Habits: Current diet type/program: regular Caffeine: Yes High-fat food intake: 2 times daily Daily servings fruits/vegetables: 0-1 Daily servings of milk/calcium: 0-1 Eating out: rarely or never Reads food labels: usually or always During the past year weight has: remained stable Exercise: What type of physical activity do you participate in?: none and walking Physical activity functional status: independent ambulation How many days of moderate to strenuous exercise, like a brisk walk, did you do in the last 7 days: 0 Safety: Seatbelt use: always Helmet use: No Drive intoxicated or ride with intoxicated hazmat cdl a driver?: never Home Safety: Water heater temperature set < 120 degrees: No Working smoke detector in home: Yes Fire extinguisher in home: No Carbon monoxide detector in home: No Firearms in home: Yes Personal Safety: Do you feel safe at home: No Victim of physical abuse: No Victim of emotional abuse: No Victim of sexual abuse: No Would you like help information on resources?: No NHANES Social Connection/Isolation: Are you now , , , , never or living with a partner?: In a typical week, how many times do you talk on the telephone with family, friends, or neighbors?: Twice per Week How often do you get together with friends or relatives?: Twice per Week Do you belong to any clubs or organizations such as advent groups unions, fraternal or athletic groups, or school groups?: No Social isolation score (0-1 are the most socially isolated patients): 2 Social isolation score reviewed/action taken: No Vitals/I&O/Wt Last Vital Signs Temp 98.8 F 07/14/19 12:00 Pulse 72 07/14/19 12:00 Resp 16 07/14/19 12:00 BP 110/68 07/14/19 12:00 Pulse Ox 93 07/14/19 12:00 Weight last 48 hrs Weight 240 lb Physical Exam Narrative: EXAM NARRATIVE: GENERAL: Patient is alert, awake and oriented x3. NECK: No jugular vein distension. HEENT: No cyanosis. No icterus. No pallor. HEART: Regular S1 and S2. No murmur, rub or gallop. LUNGS: Clear to auscultate bilaterally. ABDOMEN: Soft, nontender and nondistended. Positive bowel sounds. No guarding, rebound or tenderness. CENTRAL NERVOUS SYSTEM: Grossly nonfocal. EXTREMITIES: Lower extremities without edema bilaterally. Pulses palpable in the lower extremities, both dorsalis pedis and posterior tibial. Data Labs: Other Labs: SINUS RHYTHM WITH FIRST DEGREE AV BLOCK INTRAVENTRICULAR CONDUCTION DELAY [130+ ms QRS DURATION] Compared to ECG 05/14/2019 23:18:01 First degree AV block now present Myocardial infarct finding no longer present Electronically Signed On 07-14-2019 15:54:46 CDT by Taylor Meeks M.D. A&P Assessment and plan (1) Chest pain: Intubated me that patient has atypical chest pain. He has normal coronaries few years ago by angiogram. He has normal stress test a year ago. Currently he denies any chest pain. He has history of arthritis for which he is taking immunosuppressants. Echocardiogram did not reveal effusion or wall motion abnormality. From a cardiovascular perspective it appeared to be noncardiac in origin. Patient is a better advised to follow-up with cardiology as an outpatient if needed. From a cardiac vascular perspective patient can be discharged home. 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
[2019-07-14 17:01] VITALS: BP 137/80; PULSE 66; RESP 16; TEMP 37.1; O2SAT 94
--- NOTE | 2019-07-14 17:38 | PC.NURSE ---
Discharge to home Instructed pt to follow-up with his pcp and rice farmer as scheduled. Educated pt on new meds actions, dosing, timing, and frequency. Informed about the continued meds and stopped med. 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 Discharge papers provided to pt.
--- NOTE | 2019-07-14 21:59 | USCV_ITS ---
Kojo Marinelli Age: 73 Gender: M : 1945 Exam Date: 07/14/2019 08:10 Ordering Phys: Naz Goode MD Technologist: Sandro Redd Exam Location: [facility] – [place] Indication: UNSTABLE ANGINA BP: 137 / 78 HR: 69 Rhythm: Sinus Technical Quality: Fair MEASUREMENTS (Male / Female) Normal Values 2D ECHO LV Diastolic Diameter PLAX 4.7 cm 4.2 - 5.9 / 3.9 - 5.3 cm LV Systolic Diameter PLAX 2.2 cm IVS Diastolic Thickness 0.8 cm 0.6 - 1.0 / 0.6 - 0.9 cm IVS Systolic Thickness 1.2 cm LVPW Diastolic Thickness 1.0 cm 0.6 - 1.0 / 0.6 - 0.9 cm LVPW Systolic Thickness 1.6 cm LVOT Diameter 2.5 cm LV Ejection Fraction 2D Teich 84.3 % LV Ejection Fraction MOD 2C 54.4 % LV Ejection Fraction 2C AL 55.2 % LA Diameter 4.8 cm LA Width 5.0 cm LA Height 4.8 cm RA Width 4.1 cm RA Height 5.3 cm Aorta at Sinotubular Diameter 3.7 cm M-MODE LV Diastolic Diameter MM 6.4 cm 4.2 - 5.9 / 3.9 - 5.3 cm LV Systolic Diameter MM 4.5 cm LV Ejection Fraction MM Teich 55.5 % IVS Diastolic Thickness MM 1.3 cm 0.6 - 1.0 / 0.6 - 0.9 cm IVS Systolic Thickness MM 2.0 cm LVPW Diastolic Thickness MM 1.4 cm 0.6 - 1.0 / 0.6 - 0.9 cm LVPW Systolic Thickness MM 2.3 cm RV Diastolic Diameter MM 1.5 cm Aortic Annulus Diameter 4.2 cm LA Ao Ratio MM 1.1 MV E Point Septal Separation 0.9 cm DOPPLER AV Peak Velocity 104.0 cm/s LVOT Peak Velocity 88.0 cm/s AV Area Cont Eq vti 3.7 cm squared AV Area Cont Eq pk 4.2 cm squared MV Area PHT 4.8 cm squared Mitral E to A Ratio 0.9 MV E' Velocity 8.0 cm/s Mitral E to MV E' Ratio 8.6 Mitral E to LV E' Lateral Ratio 7.9 Mitral E to LV E' Septal Ratio 9.4 TR Peak Velocity 260.0 cm/s TR Peak Gradient 27.0 mmHg TV Peak E Velocity 89.0 cm/s Right Atrial Pressure 3.0 mmHg Pulmonary Artery Systolic Pressu 30.0 mmHg PV Peak Velocity 89.0 cm/s FINDINGS Left Ventricle Normal left ventricular cavity size. Normal left ventricular systolic function. Left ventricular ejection fraction is estimated at 60 %. Normal diastolic function. Right Ventricle The right ventricle is normal in size and function. Right Atrium The right atrium is normal in size. Left Atrium The left atrium is normal in size. Mitral Valve Structurally normal mitral valve without significant stenosis or prolapse. There is no mitral regurgitation. Aortic Valve Structurally normal aortic valve without significant sclerosis or stenosis. There is no aortic regurgitation. Tricuspid Valve Structurally normal tricuspid valve without significant stenosis or regurgitation. Pulmonary artery systolic pressure is normal. Pulmonic Valve Structurally normal pulmonic valve without significant stenosis. There is no pulmonic regurgitation. Pericardium Normal pericardium without effusion. Aorta Normal ascending aorta dimension. CONCLUSIONS 1-Normal left ventricular cavity size. Normal left ventricular systolic function. Left ventricular ejection fraction is estimated at 60 %. Normal diastolic function. 2-There is no pericardial effusion. 3-No significant valve abnormalities. 4-Pulmonary artery systolic pressure is within normal limits. 5-Right atrial pressure is around 5 mm of mercury. 6-There are no prior echocardiogram studies to compare. Naz Russ MD (Electronically Signed) Final Date: 14 Jul 2019 14:16 S
== END 2019-07-14 17:37 | disposition home or self-care (01) ==
LOC: ER 21:15 → MEDSURG 21:44
PROVIDERS: Admitting Provider Internal Medicine; Emergency Provider Emergency Medicine; Family Provider Internal Medicine; PCP Internal Medicine; Visit Provider Internal Medicine
DX: I20.0 Unstable angina (principal); D89.9 Disorder involving the immune mechanism, unspecified; G47.30 Sleep apnea, unspecified; I10 Essential (primary) hypertension; M06.00 Rheumatoid arthritis without rheumatoid factor, unspecified site; E03.9 Hypothyroidism, unspecified; K21.9 Gastro-esophageal reflux disease without esophagitis; G47.33 Obstructive sleep apnea (adult) (pediatric); J44.9 Chronic obstructive pulmonary disease, unspecified; Z82.49 Family history of ischemic heart disease and other diseases of the circulatory system
CPT/HCPCS: 12345; 36415; 71045; 80048; 80053; 81001; 83690; 83735; 83880; 84443; 84484; 85025; 85610; 93005; 93306; 96360; 96361; 96372; 99283; 99285; G0378; J1650; J7030

== ENCOUNTER → 2019-07-25 11:47 | Outpatient (BNVA) | payer MEDICARE, OTHER, SELFPAY | PROVIDERS: Family Provider Internal Medicine; PCP Internal Medicine; Visit Provider Internal Medicine Rheumatology | DX: M06.00 Rheumatoid arthritis without rheumatoid factor, unspecified site (principal); M19.90 Unspecified osteoarthritis, unspecified site; Z79.899 Other long term (current) drug therapy; R76.8 Other specified abnormal immunological findings in serum; G89.29 Other chronic pain | CPT/HCPCS: 36415; 80076; 82306; 82565; 84550; 85025; 85651; 86140; 99214 ==

== ENCOUNTER 2019-07-26 08:19 | Outpatient (CLI) | payer MEDICARE, OTHER, SELFPAY ==
--- NOTE | 2019-07-26 08:27 | XR_ITS ---
WS: [id number] HAND RIGHT TECHNIQUE: 3 views of the right hand CLINICAL INFORMATION: inflammatory arthritis COMPARISON: None. FINDINGS: Osteopenia. Degenerative arthritis first CMC and STT. Advanced degenerative narrowing at the second a nd third MCP. IP joint narrowing worse involving the second, third and fourth PIP and DIP joints. Hyp ertrophic spurring worse second and third metacarpal heads. Vascular calcification. IMPRESSION: Moderate to advanced degenerative arthritis described above worse at the second and third MCP and IP joints. No erosive changes.
--- NOTE | 2019-07-26 08:27 | XR_ITS ---
WS: [id number] FOOT RIGHT TECHNIQUE: 3 views of the right foot CLINICAL INFORMATION: inflammatory arthritis COMPARISON: None. FINDINGS: Osteopenia. Hallux valgus. Mild IP joint narrowing third through fifth digits. A few small erosions i nvolving the metatarsal heads. Soft tissue edema lower leg and hindfoot. Vascular calcification. XR/XR foot RT min 3V* [id number] IMPRESSION: 1. Osteopenia with hallux valgus. 2. A few small erosions involving the second third and fourth metatarsal heads . 3. Mild IP joint narrowing more prominent in the third through fifth digits.
--- NOTE | 2019-07-26 08:27 | XR_ITS ---
WS: [id number] PROCEDURE: XR chest 2V* [id number] CLINICAL INFORMATION: inflammatory arthritis COMPARISON: July 13, 2019 FINDINGS: Heart: Cardiomegaly. Prominent left ventricle. Lungs: Lungs are clear. No consolidation or pleural fluid. No acute pulmonary infiltrates. Bones: Post operative changes lower cervical and upper thoracic spine. XR/XR chest 2V* [id number] IMPRESSION: 1. Cardiomegaly. 2. No acute pulmonary infiltrates. No focal pneumonia. 3. Postoperative changes lower cervical and upper thoracic spine.
--- NOTE | 2019-07-26 08:27 | XR_ITS ---
WS: [id number] FOOT LEFT TECHNIQUE: 3 views of the left foot CLINICAL INFORMATION: inflammatory arthritis COMPARISON: None. FINDINGS: Osteopenia. Mild IP joint narrowing second through fifth digits. A few tiny periarticular erosions in volving the metatarsal heads. Periarticular erosions first MTP. Soft tissue edema lower leg and hindf oot. Vascular calcification. XR/XR foot LT min 3V* [id number] IMPRESSION: 1. Osteopenia 2. A few small periarticular erosions involving the first through fifth metata rsal haeads. 3. Mild IP joint narrowing more prominent in the third through fifth digits.
--- NOTE | 2019-07-26 08:27 | XR_ITS ---
WS: [id number] HAND LEFT TECHNIQUE: 3 views of the left hand CLINICAL INFORMATION: inflammatory arthritis COMPARISON: None. FINDINGS: Osteopenia. Degenerative arthritis first CMC and STT. Moderate degenerative narrowing at the second a nd third MCP. IP joint narrowing worse involving the third and fourth IP joints. Vascular calcificati on. IMPRESSION: Moderate degenerative arthritis described above. No erosive changes.
== END 2019-07-26 08:20 | disposition home or self-care (01) ==
LOC: RADWPI 08:26
PROVIDERS: Family Provider Internal Medicine; PCP Internal Medicine; Visit Provider Internal Medicine Rheumatology
DX: M19.90 Unspecified osteoarthritis, unspecified site (principal); M19.042 Primary osteoarthritis, left hand; M85.871 Other specified disorders of bone density and structure, right ankle and foot; M20.11 Hallux valgus (acquired), right foot; M19.041 Primary osteoarthritis, right hand; I51.7 Cardiomegaly; M85.872 Other specified disorders of bone density and structure, left ankle and foot; M85.88 Other specified disorders of bone density and structure, other site
CPT/HCPCS: 71046; 73130; 73630

== ENCOUNTER → 2019-08-28 08:50 | Outpatient (BNVA) | payer MEDICARE, OTHER, SELFPAY | PROVIDERS: Family Provider Internal Medicine; PCP Internal Medicine; Visit Provider Specialist | DX: Z48.89 Encounter for other specified surgical aftercare (principal); Z96.641 Presence of right artificial hip joint | CPT/HCPCS: 73502 ==

== ENCOUNTER → 2019-10-18 12:49 | Outpatient (BNVA) | payer MEDICARE, OTHER, SELFPAY | PROVIDERS: Family Provider Internal Medicine; PCP Internal Medicine; Visit Provider Internal Medicine Rheumatology | DX: Z79.899 Other long term (current) drug therapy (principal) | CPT/HCPCS: 36415; 80076; 82565; 85025; 85651; 86140 ==

== ENCOUNTER → 2019-10-25 13:43 | Outpatient (BNVA) | payer MEDICARE, OTHER, SELFPAY | PROVIDERS: Family Provider Internal Medicine; PCP Internal Medicine; Visit Provider Internal Medicine Rheumatology | DX: M06.00 Rheumatoid arthritis without rheumatoid factor, unspecified site; Z79.899 Other long term (current) drug therapy; R76.8 Other specified abnormal immunological findings in serum; K21.9 Gastro-esophageal reflux disease without esophagitis; Z96.642 Presence of left artificial hip joint; M15.9 Polyosteoarthritis, unspecified; G89.29 Other chronic pain; Z79.52 Long term (current) use of systemic steroids | CPT/HCPCS: 99214 ==

== ENCOUNTER 2019-12-29 13:19 | Emergency (ER) | payer MEDICARE, OTHER, SELFPAY ==
[2019-12-29 14:14] VITALS: BP 153/73; PULSE 90; RESP 16; TEMP 36.3; O2SAT 93; BMI 35.9
--- NOTE | 2019-12-29 15:43 | ED_ITS ---
HPI - Wound/Laceration General: Chief Complaint: Wound/Laceration Stated Complaint: finger lac Time Seen by Provider: 12/29/19 15:10 History of Present Illness: HPI narrative: Patient cut left pointer finger with a knife today it is continued to bleed Onset (ago): hour(s) Extremity Location: Left: hand Place: home Patient tetanus UTD: Yes Context: accidental Associated symptoms: Reports no associated symptoms; Denies chills or fever(s) Treatments prior to arrival: bandage Review of Systems Const: Denies: fever(s) or chills Skin/Breast: Reports: other (Laceration left pointer finger) Psych: Denies: anxiety or depression PFSH ED PFSH: Medical History (Updated 12/29/19 @ 15:42 by JUAN Segovia) Cervical postlaminectomy syndrome Chronic low back pain COPD (chronic obstructive pulmonary disease) DJD (degenerative joint disease) Gastroparesis GERD (gastroesophageal reflux disease) 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, greater than 8 weeks H/O prostate cancer High risk medication use HTN (hypertension) Hyperlipidemia Hypothyroid Immunization counseling Immunosuppression Inflammatory arthritis FUAD (obstructive sleep apnea) Osteoarthritis, generalized Positive CORBY (antinuclear antibody) Seronegative rheumatoid arthritis Undifferentiated connective tissue disease Surgical History H/O colonoscopy 2012 H/O esophagogastroduodenoscopy 2012 H/O neck surgery x 2 H/O total knee replacement right and left History of abdominal aortic aneurysm (AAA) repair History of back surgery x 7 History of cardiac cath 7 years ago nonobstructive, negative stress test 1 year ago 2019 History of hip surgery RIGHT 04/11/19 History of tonsillectomy and adenoidectomy History of total left hip arthroplasty Hx of appendectomy Hx of cholecystectomy 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 Family History Mother Bleeding disorder Other CAD (coronary artery disease) Cancer Stroke Denies family history of Anesthesia complication Social History (Updated 12/29/19 @ 14:19 by Tree Munguia RN) Smoking and tobacco status: never smoked Alcohol intake: never Substance/Drug Use: never Household members: spouse Marital status: Current occupational status: retired History of recent travel: No Physical Exam Const: COMMON NORMALS: no acute distress Extremity: NARRATIVE EXTREMITY EXAM: Has laceration running horizontally across left index finger DIP area proximally centimeter below the nail does have some bleeding Psych: COMMON NORMALS: mental status grossly normal Procedures Laceration Laceration 1: Site: hand Side (If applicable): left Size (cm): 4 Description: linear Depth: simple, single layer Local Anesthetic: lidocaine 1% Amount of anesthesia used (mL): 2 Pre-repair: wound explored and irrigated extensively Skin layer closed with: vicryl Size (cm): 5-0 Number of sutures: 3 Technique: simple, interrupted Course Vital Signs: Vital signs: Vital Signs Temperature 97.3 F L 12/29/19 14:14 Pulse Rate 90 12/29/19 14:14 Respiratory Rate 16 12/29/19 14:14 Blood Pressure 153/73 12/29/19 14:14 Pulse Oximetry 93 12/29/19 14:14 Discharge Plan Discharge Patient Disposition: Home Clinical Impression: Laceration Condition: Stable Prescriptions: No Action hydrocortisone 2.5 % cream 1 applic TOPICAL BID PRN (Reason: Itching) RF: 0 oxybutynin chloride 5 mg tablet 5 mg PO BEDTIME RF: 0 diclofenac sodium 1 % gel 2 gm TOPICAL QID Qty: 200 RF: 2 esomeprazole magnesium [Nexium] 40 mg capsule,delayed release(DR/EC) 40 mg PO DAILY Qty: 30 RF: 3 gabapentin 300 mg capsule 300 mg PO TID Qty: 90 RF: 3 leflunomide [Arava] 20 mg tablet 20 mg PO DAILY Qty: 30 RF: 3 prednisone 2.5 mg tablet 7.5 mg PO DAILY Qty: 90 RF: 3 Xeljanz 5 mg tablet 5 mg PO BID Qty: 60 RF: 3 carvedilol 12.5 mg tablet 12.5 mg PO BID 90 Days Qty: 180 RF: 3 nitroglycerin [Nitrostat] 0.4 mg tablet, sublingual 0.4 mg SUBLINGUAL Q5M PRN (Reason: Chest Pain) 30 Days Qty: 25 RF: 6 atorvastatin 40 mg tablet 40 mg PO BEDTIME Qty: 90 RF: 3 isosorbide mononitrate 30 mg tablet extended release 24 hr 30 mg PO DAILY Qty: 90 RF: 3 meclizine 25 mg tablet 25 mg PO Q6H PRN (Reason: UNKNOWN) RF: 0 aspirin 81 mg Tablet,Delayed Release (Dr/Ec) 81 mg PO DAILY Qty: 30 RF: 0 lisinopril 10 mg tablet 20 mg PO BID RF: 0 levothyroxine [Synthroid] 137 mcg tablet 125 mcg PO DAILY RF: 0 liothyronine 5 mcg tablet 10 mcg PO DAILY RF: 0 Discharge Orders: Discharge Order (Routine); Ordered 12/29/19 Ordered By: Navin Cox Referrals: Marsha Turner MD [Primary Care Provider] - Discharge Diet: Usual diet Discharge Activity: Increase activity as tolerated Patient Instructions: Suture Care (ED), Finger Laceration (ED) Activity Restrictions/Additional Instructions: There for signs symptoms of infection. Laceration care instructions follow those. Sutures out in 7 days. Coding Level of Care Code ED Trench Trimmer Fine for Lauren Zimmerman
[2019-12-29 15:50] VITALS: PULSE 86; RESP 16; O2SAT 98
== END 2019-12-29 15:50 | disposition home or self-care (01) ==
PROVIDERS: Emergency Provider Nurse Practitioner Family; Family Provider Internal Medicine; PCP Internal Medicine
DX: S61.211A Laceration without foreign body of left index finger without damage to nail, initial encounter (principal); W26.0XXA Contact with knife, initial encounter; Z79.82 Long term (current) use of aspirin; J44.9 Chronic obstructive pulmonary disease, unspecified; I25.2 Old myocardial infarction; Z85.46 Personal history of malignant neoplasm of prostate; I10 Essential (primary) hypertension; E78.5 Hyperlipidemia, unspecified
CPT/HCPCS: 12002; 12345; 99281; 99282

== ENCOUNTER 2020-02-06 15:02 | Emergency (ER) | payer MEDICARE, OTHER, SELFPAY ==
[2020-02-06 15:10] VITALS: BP 188/101; PULSE 84; RESP 20; TEMP 36.9; O2SAT 95; BMI 35.6
--- NOTE | 2020-02-06 16:36 | CT_ITS ---
WS: [id number] CT abdomen pelvis wo con [id number] REASON FOR EXAM: abd pain IV CONTRAST ADMINISTERED: Unenhanced TOTAL EXAM DLP: 1269.[address] scans at [facility] use at least one of these dose optimization techniques: automat ed exposure control; mA and/or kV adjustment per patient size (includes targeted exams where dose is matched to clinical indication); or iterative reconstruction. FINDINGS: ABDOMEN: The unenhanced liver, spleen, and pancreas are unremarkable. The gallbladder has been surgically hien doris. The adrenals are unremarkable. The unenhanced kidneys demonstrate no renal calculi. There is no hydro nephrosis. There is a 4 cm exophytic low-attenuation mass in the medial aspect of the left kidney. Th is has the appearance of a cyst. There is a 15 cm low-attenuation mass in the posterior lateral aspec t of the right kidney which also likely represents a cyst. No proximal ureteral calculi are identified. No abdominal mass or adenopathy is noted. No free fluid or focal fluid collection. No bowel abnormality is identified. An appendix is not identified. No inflammatory changes are seen i n the right lower abdomen. No abdominal aortic aneurysm normal-appearing major branches of the aorta. PELVIS: Extensive artifact from the bilateral hip replacement. [place] in the left lower pelvis connected t o the penile prosthesis. No mass or adenopathy identified. Cannot visualize the urinary bladder due to the severe artifacts fr om the hip prostheses. Distal course of the ureters obscured by artifact. Pedicle screws and fusion of the lumbar spine from L1 to S1. Severe degenerative disc changes in the lower thoracic spine with vacuum phenomenon. CT/CT abdomen pelvis wo con [id number] IMPRESSION: Multiple incidental findings as above. No acute intra-abdominal or pelvic abnor mality identified.
--- NOTE | 2020-02-06 16:39 | ED_ITS ---
HPI - General Adult General: Chief complaint: General Medical Stated complaint: bleeding from genitals Time Seen by Provider: 02/06/20 16:34 Source: patient Mode of arrival: ambulatory Limitations: no limitations History of Present Illness: HPI narrative: 74-year-old male who states he had an episode of hematuria roughly 2 hours ago. He states that he has been having some pain when he urinates along with left-sided back pain and had gross blood in his urine today. He has a history of prostate cancer 10 years ago. States the pain is a 1-2 out of 10. Denies any vomiting or diarrhea. He denies any fevers. Denies any worsening or improving factors. Associated symptoms: Deny chest pain, dyspnea, headache(s) or rash Review of Systems Const: Denies: fever(s), chills, body aches or change in appetite Eyes: Denies: blurry vision or eye discomfort ENMT: Denies: throat pain or dental pain Card: Denies: chest pain Resp: Denies: dyspnea GI: Reports: abdominal pain : Reports: hematuria Musc: Denies: neck pain or back pain Skin/Breast: Denies: rash Neuro: Denies: headache(s) Psych: Denies: depression Petey/Lymph: Denies: easy bruising All/Imm: Denies: urticaria PFSH ED PFSH: Medical History (Updated 02/06/20 @ 18:39 by Laron Mims MD) Cervical postlaminectomy syndrome Chronic low back pain COPD (chronic obstructive pulmonary disease) DJD (degenerative joint disease) Gastroparesis GERD (gastroesophageal reflux disease) 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, greater than 8 weeks H/O prostate cancer High risk medication use HTN (hypertension) Hyperlipidemia Hypothyroid Immunization counseling Immunosuppression Inflammatory arthritis FUAD (obstructive sleep apnea) Osteoarthritis, generalized Positive CORBY (antinuclear antibody) Seronegative rheumatoid arthritis Undifferentiated connective tissue disease Surgical History H/O colonoscopy 2011 H/O esophagogastroduodenoscopy 2012 H/O neck surgery x 2 H/O total knee replacement right and left History of abdominal aortic aneurysm (AAA) repair History of back surgery x 7 History of cardiac cath 7 years ago nonobstructive, negative stress test 1 year ago 2019 History of hip surgery RIGHT 04/11/19 History of tonsillectomy and adenoidectomy History of total left hip arthroplasty Hx of appendectomy Hx of cholecystectomy 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 Family History Mother Bleeding disorder Other CAD (coronary artery disease) Cancer Stroke Denies family history of Anesthesia complication Social History Smoking and tobacco status: never smoked Alcohol intake: never Household members: spouse Marital status: Current occupational status: retired History of recent travel: No Physical Exam Const: COMMON NORMALS: no acute distress, patient oriented x3 and healthy appearing HENMT: COMMON NORMALS: normocephalic and atraumatic HEAD & SCALP: normocephalic and atraumatic Eye: COMMON NORMALS: Equal, round and reactive pupils present and EOMs intact bilaterally PUPIL: Yes Equal, round and reactive pupils present Neck/C-Spine: COMMON NORMALS: full ROM and supple Chest: COMMONS NORMALS: normal inspection of the chest and normal palpation of entire chest wall Resp: COMMON NORMALS: normal respiratory effort, No retractions, No use of accessory muscles and clear to auscultation bilaterally AUSCULTATION: clear to auscultation bilaterally Cardio: COMMON NORMALS: regular rate, regular rhythm and No murmurs present (Cardio) RATE: regular rate RHYTHM: regular rhythm GI: COMMON NORMALS: Normal to inspection, nondistended, normoactive bowel sounds present, Soft to palpation, non-tender and no masses PALPATION: Yes Soft to palpation Extremity: COMMON NORMALS: normal to inspection and full ROM Neuro: COMMON NORMALS: patient oriented x3, moves all extremities and no focal motor deficits Psych: COMMON NORMALS: mental status grossly normal, Normal thought process present and cooperative THOUGHT PROCESS: Normal thought process present Skin: COMMON NORMALS: no rashes or lesions noted and no wounds GENERAL SKIN EXAM: no rashes or lesions noted Course Vital Signs: Vital signs: Vital Signs Temperature 98.5 F 02/06/20 15:10 Pulse Rate 84 02/06/20 15:10 Respiratory Rate 18 02/06/20 17:25 Blood Pressure 188/101 02/06/20 15:10 Pulse Oximetry 98 02/06/20 17:25 MDM - General Adult MDM Narrative: Medical decision making narrative: Patient presents here with hematuria. Patient has a possible infection will treat with antibiotics. Patient CT showed no acute findings. We will have him follow-up with Dr. Darnell. He is return if worsening. Lab Data: Labs: Lab Results 02/06/20 02/06/20 02/06/20 Range/Units 16:44 16:44 17:39 WBC 6.3 (4.0-10.0) 10^3/ uL RBC 3.31 L (4.1-5.3) 10^6/u L Hgb 10.0 L (11.7-16.6) g/dL Hct 32.0 L (42.0-52.0) % MCV 96.7 H (80-94) fL MCH 30.2 (28.0-34.0) pg MCHC 31.3 (30.0-36.0) g/dL RDW 15.1 (12.1-15.1) % Plt Count 207 (130-400) 10^3/c mm MPV 9.5 (7.4-10.4) fL Neut % (Auto) 75.2 % Lymph % (Auto) 11.9 % Mclean % (Auto) 10.8 % Eos % (Auto) 1.0 % Baso % (Auto) 0.8 % Neut # (Auto) 4.75 (1.8-7.7) 10^3/u L Lymph # (Auto) 0.8 (0.8-4.8) 10^3/u L Mclean # (Auto) 0.7 (0.2-0.9) 10^3/u L Eos # (Auto) 0.1 (0.0-0.8) 10^3/u L Baso # (Auto) 0.1 (0.0-0.1) 10^3/u L Nucleated RBC % (a uto) 0 % Nucleated RBCs # 0.0 /100WBC Sodium 141 (136-145) mmol/L Potassium 4.1 (3.5-5.1) mmol/L Chloride 107 (98-107) mmol/L Carbon Dioxide 24 (22-29) mmol/L Anion Gap 14.1 (5-19) BUN 18 (8-23) mg/dL Creatinine 0.8 (0.7-1.2) mg/dL GFR Calculation Not Reportable Glucose 104 (65-115) mg/dL Calculated Osmolal ity 294 (285-295) mOsm/k g Calcium 9.1 (8.5-10.5) mg/dL Total Bilirubin 0.5 (0.15-1.2) mg/dL AST 17 (0-40) U/L ALT 15 (0-41) U/L Alkaline Phosphata se 65 (40-130) IU/L Total Protein 6.5 L (6.6-8.7) g/dL Albumin 4.0 (3.5-5.2) g/dL Globulin 2.5 (1.3-4.6) g/dL Urine Color Red (Yellow) Urine Appearance Turbid (CLEAR) Urine pH 5 (5-7) Ur Specific Gravit y 1.015 (1.005-1.030) Urine Protein 1+ H (Negative) Urine Glucose (UA) Norm (Normal) Urine Ketones Negative (Negative) Urine Blood 3+ H (Negative) Urine Nitrate Negative (Negative) Urine Bilirubin Neg (Negative) Urine Urobilinogen 1 H (Negative) mg/dL Ur Leukocyte Christal ase Negative (Negative) Urine RBC Too numerous to c nt H (0-2) /hpf Urine WBC None (0-5) /hpf Ur Squamous Epith Cells None (0-5) /hpf Amorphous Sediment Not Reportable Urine Bacteria 2+ H (NONE) /hpf Imaging Data^: CT Abd/Pel: Radiologist's impression: [place] [id number] CT Scan Report Signed Patient: Kojo Marinelli Unit #: [id number] : 1945 Age/Sex: 74 / M ADM Date: 02/06/20 Loc: ER Room/Bed: Attending Dr: Ordering Provider/Ordering MD: Laron Mims MD Date of Service: 02/06/20 Procedure(s): CT abdomen pelvis wo con [id number] Accession Number(s): [id number] Report Number: [id number] WS: [id number] CT abdomen pelvis wo con [id number] REASON FOR EXAM: abd pain IV CONTRAST ADMINISTERED: Unenhanced TOTAL EXAM DLP: 1269.[address] scans at [facility] use at least one of these dose optimization techniques: automated exposure control; mA and/or kV adjustment per patient size (includes targeted exams where dose is matched to clinical indication); or iterative reconstruction. FINDINGS: ABDOMEN: The unenhanced liver, spleen, and pancreas are unremarkable. The gallbladder has been surgically removed. The adrenals are unremarkable. The unenhanced kidneys demonstrate no renal calculi. There is no hydronephrosis. There is a 4 cm exophytic low-attenuation mass in the medial aspect of the left kidney. This has the appearance of a cyst. There is a 15 cm low-attenuation mass in the posterior lateral aspect of the right kidney which also likely represents a cyst. No proximal ureteral calculi are identified. No abdominal mass or adenopathy is noted. No free fluid or focal fluid collection. No bowel abnormality is identified. An appendix is not identified. No inflammatory changes are seen in the right lower abdomen. No abdominal aortic aneurysm normal-appearing major branches of the aorta. PELVIS: Extensive artifact from the bilateral hip replacement. [place] in the left lower pelvis connected to the penile prosthesis. No mass or adenopathy identified. Cannot visualize the urinary bladder due to the severe artifacts from the hip prostheses. Distal course of the ureters obscured by artifact. Pedicle screws and fusion of the lumbar spine from L1 to S1. Severe degenerative disc changes in the lower thoracic spine with vacuum phenomenon. CT/CT abdomen pelvis wo con [id number] IMPRESSION: Multiple incidental findings as above. No acute intra-abdominal or pelvic abnormality identified. Discharge Plan Discharge Patient Disposition: Home Clinical Impression: Hematuria Qualifiers: Hematuria type: gross Qualified Code(s): R31.0 - Gross hematuria Condition: Stable Prescriptions: New Keflex 500 mg capsule 500 mg PO Q6H 7 Days Qty: 28 RF: 0 No Action hydrocortisone 2.5 % cream 1 applic TOPICAL BID PRN (Reason: Itching) RF: 0 oxybutynin chloride 5 mg tablet 5 mg PO BEDTIME RF: 0 diclofenac sodium 1 % gel 2 gm TOPICAL QID Qty: 200 RF: 2 esomeprazole magnesium [Nexium] 40 mg capsule,delayed release(DR/EC) 40 mg PO DAILY Qty: 30 RF: 3 gabapentin 300 mg capsule 300 mg PO TID Qty: 90 RF: 3 leflunomide [Arava] 20 mg tablet 20 mg PO DAILY Qty: 30 RF: 3 prednisone 2.5 mg tablet 7.5 mg PO DAILY Qty: 90 RF: 3 Xeljanz 5 mg tablet 5 mg PO BID Qty: 60 RF: 3 carvedilol 12.5 mg tablet 12.5 mg PO BID 90 Days Qty: 180 RF: 3 nitroglycerin [Nitrostat] 0.4 mg tablet, sublingual 0.4 mg SUBLINGUAL Q5M PRN (Reason: Chest Pain) 30 Days Qty: 25 RF: 6 atorvastatin 40 mg tablet 40 mg PO BEDTIME Qty: 90 RF: 3 isosorbide mononitrate 30 mg tablet extended release 24 hr 30 mg PO DAILY Qty: 90 RF: 3 aspirin 81 mg Tablet,Delayed Release (Dr/Ec) 81 mg PO DAILY Qty: 30 RF: 0 lisinopril 10 mg tablet 20 mg PO BID RF: 0 Tylenol Extra Strength 500 mg Capsule 1,000 mg PO Q4H PRN (Reason: Pain) RF: 0 Vitamin D3 1 tab PO DAILY RF: 0 levothyroxine [Synthroid] 137 mcg tablet 125 mcg PO DAILY RF: 0 liothyronine 5 mcg tablet 10 mcg PO DAILY RF: 0 Discharge Orders: Discharge Order (Routine); Ordered 02/06/20 Ordered By: Laron Mims Referrals: Marsha Turner MD [Primary Care Provider] - Chester Darnell MD [Physician] - 1-3 days Discharge Diet: Advance as tolerated Discharge Activity: Resume usual activity Patient Instructions: Acute Hematuria (ED) Coding Level of Care Code ED Director Global Development for Chg Fwd Exam Comprehensive
[2020-02-06 17:06] LABS: Basophils # 0.1 10^3/uL (0.0-0.1); Basophils % 0.8 %; Eosinophils # 0.1 10^3/uL (0.0-0.8); Lymphocytes # 0.8 10^3/uL (0.8-4.8); Lymphocytes % 11.9 %; Mean Corpuscular HGB Conc 31.3 g/dL (30.0-36.0); Mean Corpuscular Hemoglobin 30.2 pg (28.0-34.0); Mean Corpuscular Volume 96.7 fL (80-94); Mean Platelet Volume 9.5 fL (7.4-10.4); Monocytes # 0.7 10^3/uL (0.2-0.9); Monocytes % 10.8 %; Neutrophils # 4.75 10^3/uL (1.8-7.7); Neutrophils % 75.2 %; Nucleated Red Blood Cells % 0 %; Platelet Count 207 10^3/cmm (130-400); Red Blood Count 3.31 10^6/uL (4.1-5.3); Red Cell Distribution Width 15.1 % (12.1-15.1); White Blood Count 6.3 10^3/uL (4.0-10.0)
[2020-02-06 17:25] VITALS: RESP 18; O2SAT 98
[2020-02-06] MEDS: HYDROmorphone 1 mg/mL INJ 1 mL 0.5 MG IVP (17:25)
[2020-02-06] MEDS: ondansetron 2 mg/ML SDV 2 mL 4 MG IVP (17:25)
[2020-02-06 17:31] LABS: Alanine Aminotransferase 15 U/L (0-41); Alkaline Phosphatase 65 IU/L (40-130); Anion Gap 14.1 (5-19); Aspartate Amino Transferase 17 U/L (0-40); Blood Urea Nitrogen 18 mg/dL (8-23); Calcium 9.1 mg/dL (8.5-10.5); Carbon Dioxide 24 mmol/L (22-29); Chloride 107 mmol/L (98-107); Globulin 2.5 g/dL (1.3-4.6); Glucose 104 mg/dL (65-115); Osmolality Calculated 294 mOsm/kg (285-295); Potassium 4.1 mmol/L (3.5-5.1); Sodium 141 mmol/L (136-145); Total Bilirubin 0.5 mg/dL (0.15-1.2); Total Protein 6.5 g/dL (6.6-8.7)
[2020-02-06 18:36] LABS: Add Urine Microscopic? YES; Bilirubin Urine Neg (Negative); Blood Urine 3+ (Negative); Glucose Urine UA Norm (Normal); Ketones Urine Negative (Negative); Leukocyte Esterase Urine Negative (Negative); Nitrate Urine Negative (Negative); Protein Urine 1+ (Negative); Specific Gravity, Urine 1.015 (1.005-1.030); Urine Appearance Turbid (CLEAR); Urine Color Red (Yellow); Urobilinogen Urine 1 mg/dL (Negative); pH Urine 5 (5-7)
[2020-02-06 18:37] LABS: Add Urine Culture? Yes; Bacteria Urine 2+ /hpf; RBC Urine TOO NUMEROUS TO CNT /hpf (0-2)
[2020-02-06 18:51] VITALS: BP 138/76; PULSE 61; RESP 18; O2SAT 94
--- NOTE | 2020-02-07 08:50 | DCPLANNER ---
logistics engineering manager had message to schedule a follow up appointment for patient with Dr. Darnell. logistics engineering manager called the office of Dr. Darnell, spoke with [employer], gave clinic patients information. logistics engineering manager was told that patients information would be printed and reviewed. Clinic will call patient with appointment information.
--- NOTE | 2020-02-14 10:15 | DCPLANNER ---
Patient has a follow up appointment scheduled for Wednesday, February 26, 2020 at 2:[address] Darnell. Clinic will call patient with appointment information.
--- NOTE | 2020-03-01 08:10 | DCPLANNER ---
Patients appointment scheduled for 02.26.[address] Darnell was rescheduled.
== END 2020-02-06 18:59 | disposition home or self-care (01) ==
PROVIDERS: Emergency Provider Emergency Medicine; PCP Internal Medicine
DX: R31.0 Gross hematuria (principal); Z79.82 Long term (current) use of aspirin; J44.9 Chronic obstructive pulmonary disease, unspecified; I25.2 Old myocardial infarction; Z85.46 Personal history of malignant neoplasm of prostate; I10 Essential (primary) hypertension; E78.5 Hyperlipidemia, unspecified
CPT/HCPCS: 12345; 74176; 80053; 81001; 85025; 87086; 96374; 96375; 99282; 99283; J1170; J2405

== ENCOUNTER → 2020-02-12 11:13 | Outpatient (BNVA) | payer MEDICARE, OTHER, SELFPAY | PROVIDERS: PCP Internal Medicine; Visit Provider Internal Medicine Rheumatology | DX: M06.041 Rheumatoid arthritis without rheumatoid factor, right hand (principal); M06.042 Rheumatoid arthritis without rheumatoid factor, left hand; Z79.899 Other long term (current) drug therapy; R31.0 Gross hematuria; M16.0 Bilateral primary osteoarthritis of hip; R76.8 Other specified abnormal immunological findings in serum | CPT/HCPCS: 99214 ==

== ENCOUNTER 2020-03-20 14:51 | Outpatient (CLI) | payer MEDICARE, OTHER, SELFPAY ==
--- NOTE | 2020-03-20 15:10 | XR_ITS ---
WS: [id number] Right knee, 3 views, 03/20/2020 Clinical Data: PAIN IN R KNEE Comparison: Right knee, 11/20/2015. Findings: Right knee arthroplasty remains in good position. No loosening is seen. There are no fractures or dis locations. There is cystic change of the proximal medial right tibia. There are minimal calcifications adjacent to the medial femoral condyle. There are vascular calcifications of the superficial femoral artery. XR/XR knee RT 3V* [id number] Impression: Right knee arthroplasty unchanged.
== END 2020-03-20 14:52 | disposition home or self-care (01) ==
PROVIDERS: PCP Internal Medicine; Visit Provider Internal Medicine
DX: M25.561 Pain in right knee (principal); Z96.651 Presence of right artificial knee joint
CPT/HCPCS: 73562

== ENCOUNTER → 2020-04-10 08:11 | Outpatient (BNVA) | payer MEDICARE, OTHER, SELFPAY | PROVIDERS: PCP Internal Medicine; Referring Provider Internal Medicine; Visit Provider Specialist | DX: M25.561 Pain in right knee (principal); Z96.651 Presence of right artificial knee joint; Z96.652 Presence of left artificial knee joint | CPT/HCPCS: 73560; 73565 ==

== ENCOUNTER → 2020-04-18 09:23 | Outpatient (BNVA) | payer MEDICARE, OTHER, SELFPAY | PROVIDERS: PCP Internal Medicine; Visit Provider Internal Medicine Rheumatology | DX: M06.041 Rheumatoid arthritis without rheumatoid factor, right hand (principal); M06.042 Rheumatoid arthritis without rheumatoid factor, left hand; Z79.899 Other long term (current) drug therapy | CPT/HCPCS: 36415; 80076; 82565; 85025; 86140 ==

== ENCOUNTER 2020-04-19 08:03 | Outpatient (CLI) | payer MEDICARE, OTHER, SELFPAY ==
--- NOTE | 2020-04-19 08:45 | NM_ITS ---
WS: [id number] THREE-PHASE BONE SCAN HISTORY: T84.84XA - Pain due to internal orthopedic prosthetic devices, implants and grafts, initial encounter COMPARISON: 04/10/2020: 05/13/2010 Patient is is injected with 25.5 mCi Tc99m HDP intravenously. Immediate angiographic phase imaging is performed over the area of concern. Static blood pool imaging also performed. Two-hour whole-body sc intigrams performed in anterior and posterior projections. Additional large field of view imaging sub mitted as necessary. Angiographic and static blood pool phases are positive involving the medial femoral condyle of the RI GHT knee. On the two-hour delayed image there is increased uptake in the medial femoral condyle. This area of increased uptake corresponds to an area of increasing lucency noted radiographically. Lucenc y has increased since 2010. There is additional very mild increased uptake on the blood pool phase an d delayed phases involving the medial RIGHT tibial plateau. This also corresponds to an area of incre asing lucency and lytic change radiographically. Photopenic defects in the RIGHT and LEFT knee from the hardware and knee prosthesis. There some very minimal increased activity along the LEFT lateral tibial plateau. Focal area of is increased uptake w ithin the LEFT L1 and L2 pedicles. Ribs are negative. RIGHT SC joint disease. NM/NM bone 3 phase [id number] IMPRESSION: 1. Bone scan is abnormal on all 3 phases involving the RIGHT medial femoral co ndyle in the area of increasing lucency seen radiographically. Suspicious for o steomyelitis. 2. Focal areas of increased uptake in the LEFT L1 and L2 pedicles is probably degenerative.
== END 2020-04-19 08:04 | disposition home or self-care (01) ==
LOC: NM 08:04
PROVIDERS: PCP Internal Medicine; Visit Provider Specialist
DX: T84.84XA Pain due to internal orthopedic prosthetic devices, implants and grafts, initial encounter (principal); Y83.8 Other surgical procedures as the cause of abnormal reaction of the patient, or of later complication, without mention of misadventure at the time of the procedure
CPT/HCPCS: 78315; A9561

== ENCOUNTER → 2020-04-23 12:45 | Outpatient (BNVA) | payer MEDICARE, OTHER, SELFPAY | PROVIDERS: PCP Internal Medicine; Visit Provider Internal Medicine Rheumatology | DX: M06.041 Rheumatoid arthritis without rheumatoid factor, right hand (principal); M06.042 Rheumatoid arthritis without rheumatoid factor, left hand; Z79.899 Other long term (current) drug therapy; Z79.52 Long term (current) use of systemic steroids; M15.9 Polyosteoarthritis, unspecified; Z96.642 Presence of left artificial hip joint; Z96.651 Presence of right artificial knee joint; K21.9 Gastro-esophageal reflux disease without esophagitis; E03.9 Hypothyroidism, unspecified; G62.9 Polyneuropathy, unspecified | CPT/HCPCS: 99214 ==

== ENCOUNTER → 2020-04-24 13:06 | Outpatient (BNVA) | payer MEDICARE, OTHER, SELFPAY | PROVIDERS: PCP Internal Medicine; Visit Provider Specialist | DX: M15.9 Polyosteoarthritis, unspecified (principal); T84.84XA Pain due to internal orthopedic prosthetic devices, implants and grafts, initial encounter; Z96.651 Presence of right artificial knee joint | CPT/HCPCS: 80500; 87070; 87205; 89051 ==

== ENCOUNTER → 2020-05-02 10:56 | Outpatient (BNVA) | payer MEDICARE, OTHER, SELFPAY | PROVIDERS: PCP Internal Medicine; Visit Provider Specialist | DX: M15.9 Polyosteoarthritis, unspecified (principal); T84.84XA Pain due to internal orthopedic prosthetic devices, implants and grafts, initial encounter; Z96.651 Presence of right artificial knee joint | CPT/HCPCS: 87635 ==

== ENCOUNTER 2020-05-13 15:49 | Emergency (ER) | payer MEDICARE, OTHER, SELFPAY ==
[2020-05-13 16:28] VITALS: BP 182/100; PULSE 112; RESP 14; TEMP 39.4; O2SAT 92; BMI 33.9
[2020-05-13 17:51] VITALS: PULSE 108; RESP 20; O2SAT 93
--- NOTE | 2020-05-13 18:15 | XRR_ITS ---
PROCEDURE INFORMATION: Exam: XR Chest Exam date and time: 05/13/2020 6:18 PM Age: 74 years old Clinical indication: Cough and shortness of breath; Patient HX: Covid +; Additional info: SOB TECHNIQUE: Imaging protocol: XR of the chest Views: 1 view. COMPARISON: CR XR chest 2V* [id number] 07/26/2019 8:40 AM FINDINGS: Lungs: Interstitial or partially alveolar process in the right upper lobe. Equivocal minor interstitial thickening or pneumonitis right lower lung. Pleural spaces: Unremarkable. No pleural effusion. No pneumothorax. Heart/Mediastinum: Cardiac enlargement. Vasculature: Tortuous thoracic aorta. Bones/joints: Extensive hardware positioning cervical and upper thoracic spine. XR/XR chest 1V portable [id number] IMPRESSION: 1. Cardiac enlargement. 2. Accentuation of interstitial markings in the right lung with possible partial alveolar process right upper lobe. Findings could reflect areas of atypical viral pneumonitis.
--- NOTE | 2020-05-13 18:23 | ED_ITS ---
HPI - COVID General: Chief Complaint: COVID symptoms Stated Complaint: COVID+/SOB,FEVER Time Seen by Provider: 05/13/20 17:49 Source: patient Mode of arrival: ambulatory Limitations: no limitations Triage information: Has fever, cough or shortness of breath . Exposure to COVID + person last 14 days History of Present Illness: HPI Narrative: 74-year-old male who has a history of COPD states of last 2 weeks has had a slight cough along with some shortness of breath. He states he has had a fever over the last 3 days and had a temperature of 103 today. Patient had a rapid Covid test at his PCP office that was positive today. They sent him here. Patient's pulse ox here is 92% on room air. He denies any vomiting or diarrhea. He denies any chest pain. Denies any worsening improving factors. COVID 19 common symptoms: positive fever(s), chills, non-productive cough and dyspnea; negative headache(s), throat pain, nausea, vomiting or diarrhea COVID 19 other sytmptoms: negative chest pain COVID Results: Nasal/Oral Coronavirus 2019 PCR Negative 05/02/20 10:56 05/02/20 Review of Systems Const: Reports: fever(s) and chills Eyes: Denies: blurry vision or eye discomfort ENMT: Denies: throat pain or dental pain Card: Denies: chest pain Resp: Reports: dyspnea and non-productive cough GI: Denies: abdominal pain, nausea, vomiting or diarrhea : Denies: dysuria Musc: Denies: neck pain or back pain Skin/Breast: Denies: rash Neuro: Denies: headache(s) Psych: Denies: depression Petey/Lymph: Denies: easy bruising All/Imm: Denies: urticaria PFSH ED PFSH: Medical History Cervical postlaminectomy syndrome Chronic low back pain COPD (chronic obstructive pulmonary disease) DJD (degenerative joint disease) Gastroparesis GERD (gastroesophageal reflux disease) 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, greater than 8 weeks H/O prostate cancer High risk medication use History of nonmelanoma skin cancer HTN (hypertension) Hyperlipidemia Hypothyroid Immunization counseling Immunosuppression Inflammatory arthritis FUAD (obstructive sleep apnea) Osteoarthritis, generalized Positive CORBY (antinuclear antibody) Seronegative rheumatoid arthritis Seronegative rheumatoid arthritis of both hands Undifferentiated connective tissue disease Surgical History H/O colonoscopy 2011 H/O esophagogastroduodenoscopy 2012 H/O neck surgery x 2 H/O total knee replacement right and left History of abdominal aortic aneurysm (AAA) repair History of back surgery x 7 History of cardiac cath 7 years ago nonobstructive, negative stress test 1 year ago 2019 History of hip surgery RIGHT 04/11/19 History of tonsillectomy and adenoidectomy History of total left hip arthroplasty Hx of appendectomy Hx of cholecystectomy 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 Family History Mother Bleeding disorder Other CAD (coronary artery disease) Cancer Stroke Denies family history of Anesthesia complication Social History Smoking and tobacco status: never smoked Alcohol intake: never Household members: spouse Marital status: Current occupational status: retired History of recent travel: No Physical Exam Const: COMMON NORMALS: no acute distress, patient oriented x3 and healthy appearing HENMT: COMMON NORMALS: normocephalic and atraumatic HEAD & SCALP: normocephalic and atraumatic Eye: COMMON NORMALS: Equal, round and reactive pupils present and EOMs intact bilaterally PUPIL: Yes Equal, round and reactive pupils present Neck/C-Spine: COMMON NORMALS: full ROM and supple Chest: COMMONS NORMALS: normal inspection of the chest and normal palpation of entire chest wall Resp: COMMON NORMALS: normal respiratory effort, No retractions, No use of accessory muscles and clear to auscultation bilaterally AUSCULTATION: clear to auscultation bilaterally Cardio: COMMON NORMALS: regular rate, regular rhythm and No murmurs present (Cardio) RATE: regular rate RHYTHM: regular rhythm GI: COMMON NORMALS: Normal to inspection, nondistended, normoactive bowel sounds present, Soft to palpation, non-tender and no masses PALPATION: Yes Soft to palpation Extremity: COMMON NORMALS: normal to inspection and full ROM Neuro: COMMON NORMALS: patient oriented x3, moves all extremities and no focal motor deficits Psych: COMMON NORMALS: mental status grossly normal, Normal thought process present and cooperative THOUGHT PROCESS: Normal thought process present Skin: COMMON NORMALS: no rashes or lesions noted and no wounds GENERAL SKIN EXAM: no rashes or lesions noted Course Vital Signs: Vital signs: Vital Signs Temperature 99.5 F 05/13/20 21:32 Pulse Rate 111 H 05/13/20 21:32 Respiratory Rate 19 H 05/13/20 21:32 Blood Pressure 141/78 05/13/20 21:32 Pulse Oximetry 93 05/13/20 21:32 MDM - COVID MDM Narrative: Medical decision making narrative: Male presents here with fever along with some shortness of breath and cough. Patient tested positive today for Covid. Patient has been well-appearing here and x-ray shows no pneumonia and blood work is normal. Patient's home O2 eval was negative and he did not go below 90% walking. We will set patient up for a bam infusion. He is to return if worsening. He does have a pulse ox temperature at home. Lab Data: Labs: Lab Results 05/13/20 05/13/20 05/13/20 Range/Units 17:51 17:51 17:51 WBC 4.7 (4.0-10.0) 10^3/ uL RBC 3.75 L (4.1-5.3) 10^6/u L Hgb 11.0 L (11.7-16.6) g/dL Hct 35.4 L (42.0-52.0) % MCV 94.4 H (80-94) fL MCH 29.3 (28.0-34.0) pg MCHC 31.1 (30.0-36.0) g/dL RDW 15.0 (12.1-15.1) % Plt Count 172 (130-400) 10^3/c mm MPV 10.1 (7.4-10.4) fL Neut % (Auto) 79.0 % Lymph % (Auto) 10.1 % [place] % (Auto) 10.1 % Eos % (Auto) 0.2 % Baso % (Auto) 0.2 % Neut # (Auto) 3.74 (1.8-7.7) 10^3/u L Lymph # (Auto) 0.5 L (0.8-4.8) 10^3/u L [place] # (Auto) 0.5 (0.2-0.9) 10^3/u L Eos # (Auto) 0.0 (0.0-0.8) 10^3/u L Baso # (Auto) 0.0 (0.0-0.1) 10^3/u L Nucleated RBC % (a uto) 0 % Nucleated RBCs # 0.0 /100WBC Sodium 138 (136-145) mmol/L Potassium 3.9 (3.5-5.1) mmol/L Chloride 105 (98-107) mmol/L Carbon Dioxide 22 (22-29) mmol/L Anion Gap 14.9 (5-19) BUN 11 (8-23) mg/dL Creatinine 0.7 (0.7-1.2) mg/dL GFR Calculation Not Reportable Glucose 96 (65-115) mg/dL Calculated Osmolal ity 285 (285-295) mOsm/k g Lactic Acid 1.3 (0.5-2.2) mmol/L Calcium 8.3 L (8.5-10.5) mg/dL Total Bilirubin 0.5 (0.15-1.2) mg/dL AST 26 (0-40) U/L ALT 27 (0-41) U/L Alkaline Phosphata se 63 (40-130) IU/L C-Reactive Protein 22.7 H (0.0-4.9) mg/L NT-Pro-B Natriuret Pep 109 (0-450) pg/mL Total Protein 6.7 (6.6-8.7) g/dL Albumin 3.6 (3.5-5.2) g/dL Globulin 3.1 (1.3-4.6) g/dL Imaging Data: CXR: Attestation: I personally reviewed and interpreted this imaging study as follows: My impression: no acute abnormality COVID Results: Nasal/Oral Coronavirus 2019 PCR Negative 05/02/20 10:56 05/02/20 Discharge Plan Discharge Patient Disposition: Home Clinical Impression: COVID-19 Condition: Stable Prescriptions: New albuterol sulfate 90 mcg/actuation HFA aerosol inhaler 2 inh INHALATION Q6H PRN (Reason: shortness of breath or wheezing) Qty: 8 RF: 0 No Action hydrocortisone 2.5 % cream 1 applic TOPICAL BID PRN (Reason: Itching) RF: 0 oxybutynin chloride 5 mg tablet 5 mg PO BEDTIME RF: 0 diclofenac sodium 1 % gel 4 g TOPICAL QID Qty: 200 RF: 2 gabapentin 300 mg capsule 300 mg PO TID Qty: 90 RF: 4 leflunomide [Arava] 20 mg tablet 20 mg PO DAILY Qty: 30 RF: 4 prednisone 2.5 mg tablet 7.5 mg PO DAILY Qty: 90 RF: 4 Actemra ACTPen 162 mg/0.9 mL pen injector 162 mg SUBCUT .Q7days Qty: 4 RF: 4 Humira(CF) 10 mg/0.1 mL syringe kit See Rx Instructions SUBCUT .COMPLEX RF: 0 esomeprazole magnesium [Nexium] 40 mg capsule,delayed release(DR/EC) 40 mg PO DAILY Qty: 30 RF: 3 famotidine 20 mg tablet 20 mg PO BID RF: 0 ketoconazole 2 % shampoo 1 applic topical .2 x weekly Qty: 120 RF: 3 ketoconazole 2 % cream 1 applic topical BID Qty: 60 RF: 1 (DME) Articulating AFO See Rx Instructions .Route .MEDSUPPLY Qty: 1 RF: 0 carvedilol 12.5 mg tablet 12.5 mg PO BID 90 Days Qty: 180 RF: 3 nitroglycerin [Nitrostat] 0.4 mg tablet, sublingual 0.4 mg SUBLINGUAL Q5M PRN (Reason: Chest Pain) 30 Days Qty: 25 RF: 6 atorvastatin 40 mg tablet 40 mg PO BEDTIME Qty: 90 RF: 3 isosorbide mononitrate 30 mg tablet extended release 24 hr 30 mg PO DAILY Qty: 90 RF: 3 Humira Pen 40 mg/0.8 mL pen injector kit 40 mg SUBCUT Q14D Qty: 2 RF: 3 aspirin 81 mg Tablet,Delayed Release (Dr/Ec) 81 mg PO DAILY Qty: 30 RF: 0 lisinopril 10 mg tablet 20 mg PO BID RF: 0 Tylenol Extra Strength 500 mg Capsule 1,000 mg PO Q4H PRN (Reason: Pain) RF: 0 Vitamin D3 1 tab PO DAILY RF: 0 levothyroxine [Synthroid] 137 mcg tablet 125 mcg PO DAILY RF: 0 liothyronine 5 mcg tablet 10 mcg PO DAILY RF: 0 Discharge Orders: Discharge ED (Routine); Ordered 05/13/20 Ordered By: Laron Mims Referrals: Marsha Turner MD [Primary Care Provider] - 1-3 days Discharge Diet: Advance as tolerated Discharge Activity: Resume usual activity Patient Instructions: Upper Respiratory Infection (ED) Coding Level of Care Code ED Shuttleless Loom Weaver for Chg Fwd Exam Comprehensive
[2020-05-13] MEDS: acetaminophen 500 mg Tablet 1000 MG PO (18:25)
[2020-05-13] MEDS: sodium chloride 0.9% 500 ML 999 ML IV (18:25)
[2020-05-13 18:34] VITALS: BP 177/100; PULSE 110; RESP 17; O2SAT 92
[2020-05-13 18:36] LABS: Basophils % 0.2 %; Eosinophils % 0.2 %; Hematocrit 35.4 % (42.0-52.0); Lymphocytes # 0.5 10^3/uL (0.8-4.8); Lymphocytes % 10.1 %; Mean Corpuscular HGB Conc 31.1 g/dL (30.0-36.0); Mean Corpuscular Hemoglobin 29.3 pg (28.0-34.0); Mean Corpuscular Volume 94.4 fL (80-94); Mean Platelet Volume 10.1 fL (7.4-10.4); Monocytes # 0.5 10^3/uL (0.2-0.9); Monocytes % 10.1 %; Neutrophils # 3.74 10^3/uL (1.8-7.7); Nucleated Red Blood Cells % 0 %; Platelet Count 172 10^3/cmm (130-400); Red Blood Count 3.75 10^6/uL (4.1-5.3); White Blood Count 4.7 10^3/uL (4.0-10.0)
[2020-05-13 19:02] LABS: Lactic Sepsis W/Reflex 1.3 mmol/L (0.5-2.2)
[2020-05-13 19:15] LABS: Alanine Aminotransferase 27 U/L (0-41); Albumin Level 3.6 g/dL (3.5-5.2); Alkaline Phosphatase 63 IU/L (40-130); Aspartate Amino Transferase 26 U/L (0-40); Blood Urea Nitrogen 11 mg/dL (8-23); C Reactive Protein 22.7 mg/L (0.0-4.9); Calcium 8.3 mg/dL (8.5-10.5); Carbon Dioxide 22 mmol/L (22-29); Chloride 105 mmol/L (98-107); Globulin 3.1 g/dL (1.3-4.6); Glucose 96 mg/dL (65-115); NT Pro B Type Natriuretic Pept 109 pg/mL (0-450); Osmolality Calculated 285 mOsm/kg (285-295); Sodium 138 mmol/L (136-145); Total Bilirubin 0.5 mg/dL (0.15-1.2); Total Protein 6.7 g/dL (6.6-8.7)
[2020-05-13 19:30] VITALS: BP 141/78; PULSE 107; RESP 16; O2SAT 93
[2020-05-13 19:37] LABS: Anion Gap 14.9 (5-19); Potassium 3.9 mmol/L (3.5-5.1)
[2020-05-13 19:53] VITALS: O2SAT 90; O2SAT 93
[2020-05-13] MEDS: dexamethasone 10 mg/mL INJ IVP (21:20)
[2020-05-13 21:32] VITALS: BP 141/78; PULSE 111; RESP 19; TEMP 37.5; O2SAT 93
--- NOTE | 2020-05-14 12:49 | DCPLANNER ---
fleet operations manager had message to schedule an out patient BAM infusion for patient. fleet operations manager faxed signed order to centralized scheduling, will call patient with appointment information
== END 2020-05-13 21:32 | disposition home or self-care (01) ==
PROVIDERS: Emergency Provider Emergency Medicine; PCP Internal Medicine
DX: U07.1 COVID-19 (principal); Z79.82 Long term (current) use of aspirin; J44.9 Chronic obstructive pulmonary disease, unspecified; I25.2 Old myocardial infarction; Z85.46 Personal history of malignant neoplasm of prostate; I10 Essential (primary) hypertension; E78.5 Hyperlipidemia, unspecified
CPT/HCPCS: 71045; 80053; 83605; 83880; 85025; 86140; 87040; 96374; 99283; J1100; J7040

== ENCOUNTER 2020-05-15 12:39 | Outpatient (CLI) | payer MEDICARE, OTHER, SELFPAY ==
--- NOTE | 2020-05-15 13:07 | A.OFFVIS_ITS ---
Patient Information [facility] COVID test results: Nasal/Oral Coronavirus 2019 PCR Negative 05/02/20 10:56 05/02/20 Criteria/Plan Inclusion/Exclusion Criteria weight >/= 40kg age >/= 65 not requiring hospitalization and not requiring oxygen (if not chronically on oxygen) Patient education patient/caregiver received/reviewed fact sheet, Emergency Use Authorization/unapproved drug status discussed with patient/caregiver, alternatives to this treatment discussed with patient/caregiver, risks and benefits of medication reviewed with patient/caregiver, patient/caregiver given opportunity for questions, which were answered and patient/caregiver consents to receiving Monoclonal Antibody Treatment Plan for treatment Meets criteria for Monoclonal Antibody infusion
[2020-05-15 13:09] VITALS: BP 167/91; PULSE 72; RESP 18; TEMP 37.2; O2SAT 93; BMI 33.9
[2020-05-15 13:47] VITALS: BP 151/88; PULSE 67; O2SAT 94
[2020-05-15 14:09] VITALS: BP 168/90; PULSE 61; RESP 18; TEMP 37.1; O2SAT 94
[2020-05-15 15:10] VITALS: BP 156/103; PULSE 75
--- NOTE | 2020-05-22 15:58 | DCPLANNER ---
cadd manager had message that patient received the BAM infusion. cadd manager called patient to check and see how patient was feeling since receiving the BAM infusion. Patient stated that he was feeling better, after about 3 days he was feeling much better. Patient stated that he is still weak, he gets headaches, he still can't do a lot because he gets wore out easily.
== END 2020-05-15 15:11 | disposition home or self-care (01) ==
LOC: OPS 12:41
PROVIDERS: PCP Internal Medicine; Referring Provider Hospitalist; Visit Provider Emergency Medicine
DX: U07.1 COVID-19 (principal)
CPT/HCPCS: 96365

== ENCOUNTER 2020-05-20 06:00 | Outpatient (RCR) | payer MEDICARE, OTHER, SELFPAY | END 2020-06-12 23:59 | disposition home or self-care (01) | LOC: SPT 06:00 | PROVIDERS: PCP Internal Medicine; Referring Provider Specialist; Visit Provider Specialist | DX: M25.561 Pain in right knee (principal) | CPT/HCPCS: 97110; 97162 ==

== ENCOUNTER 2020-06-13 06:00 | Outpatient (RCR) | payer MEDICARE, OTHER, SELFPAY | END 2020-06-27 09:36 | disposition home or self-care (01) | LOC: SPT 06:00 | PROVIDERS: PCP Internal Medicine; Referring Provider Specialist; Visit Provider Specialist | DX: M25.561 Pain in right knee (principal); Z96.651 Presence of right artificial knee joint | CPT/HCPCS: 97110 ==

== ENCOUNTER 2020-07-03 14:17 | Outpatient (CLI) | payer MEDICARE, OTHER, SELFPAY ==
--- NOTE | 2020-07-03 14:15 | USCV_ITS ---
Kojo Marinelli Age: 74 Gender: M : 1945 Exam Date: 07/03/2020 15:03 Ordering Phys: Naz Russ MD ([email or web address]) Technologist: Sandro Redd [place] [facility] [place]: CCA DISEASE Risk Factors: None Previous Vascular Surgery: None Right Brachial BP: / Left Brachial BP: / Right Left Velocity (cm/s) Spectral Plaque Velocity (cm/s) Spectral Plaque Syst/Diast Broadening Syst/Diast Broadening 56.20/ 14.30 Prox CCA 76.10 / 22.10 57.30/ 14.30 Mid CCA 79.40 / 19.80 63.90/ 15.40 Hetro Distal CCA 61.70 / 19.80 Hetro 76.10/ 18.70 Hetro Prox ICA 38.80 / 9.20 Hetro 71.70/ 8.80 Mid ICA 59.80 / 18.40 77.20/ 12.10 Distal ICA 66.40 / 23.00 67.30 ECA 79.40 1.21 ICA/CCA 0.84 Antegrade Vertebral Antegrade 63.90/ 27.60 cm/s 34.20/ 9.90 cm/s Subclavian 102.5 71.00 0 CONCLUSIONS Right ICA stenosis <50%. Left ICA stenosis <50%. Normal antegrade Doppler flow noted in the right vertebral artery. Normal antegrade Doppler flow noted in the left vertebral artery. James Barroso MD (Electronically Signed) Final Date: 04 July 2020 12:36 S
--- NOTE | 2020-07-03 15:00 | USCV_ITS ---
Kojo Marinelli Age: 74 Gender: M : 1945 Exam Date: 07/03/2020 14:47 Ordering Phys: Naz Russ MD ([email or web address]) Technologist: Sandro Redd [place]am [place] [facility] [place]ication: SOB BP: 127 / 80 HR: 76 Rhythm: Sinus Technical Quality: Fair MEASUREMENTS (Male / Female) Normal Values 2D ECHO LV Diastolic Diameter PLAX 5.1 cm 4.2 - 5.9 / 3.9 - 5.3 cm LV Systolic Diameter PLAX 3.1 cm IVS Diastolic Thickness 1.1 cm 0.6 - 1.0 / 0.6 - 0.9 cm IVS Systolic Thickness 1.5 cm LVPW Diastolic Thickness 1.1 cm 0.6 - 1.0 / 0.6 - 0.9 cm LVPW Systolic Thickness 1.4 cm LVOT Diameter 3.7 cm LV Ejection Fraction 2D Teich 68.2 % LV Ejection Fraction MOD 2C 66.9 % LV Ejection Fraction 2C AL 66.6 % LA Diameter 3.5 cm LA Width 3.6 cm LA Height 4.7 cm RA Width 3.5 cm RA Height 4.8 cm Aorta at Sinotubular Diameter 3.7 cm M-MODE LV Diastolic Diameter MM 5.0 cm 4.2 - 5.9 / 3.9 - 5.3 cm LV Systolic Diameter MM 2.7 cm LV Ejection Fraction MM Teich 78.2 % IVS Diastolic Thickness MM 1.4 cm 0.6 - 1.0 / 0.6 - 0.9 cm IVS Systolic Thickness MM 1.8 cm LVPW Diastolic Thickness MM 1.5 cm 0.6 - 1.0 / 0.6 - 0.9 cm LVPW Systolic Thickness MM 1.6 cm RV Diastolic Diameter MM 1.8 cm Aortic Annulus Diameter 4.0 cm LA Ao Ratio MM 1.0 MV E Point Septal Separation 1.0 cm DOPPLER AV Peak Velocity 141.0 cm/s LVOT Peak Velocity 116.0 cm/s AV Area Cont Eq vti 8.4 cm squared AV Area Cont Eq pk 8.7 cm squared MV Area PHT 5.0 cm squared Mitral E to A Ratio 0.7 MV E' Velocity 36.5 cm/s Mitral E to MV E' Ratio 7.5 Mitral E to LV E' Lateral Ratio 5.7 Mitral E to LV E' Septal Ratio 11.1 TR Peak Velocity 213.0 cm/s TR Peak Gradient 18.1 mmHg TV Peak E Velocity 79.0 cm/s Right Atrial Pressure 3.0 mmHg Pulmonary Artery Systolic Pressu 21.1 mmHg PV Peak Velocity 87.0 cm/s FINDINGS Left Ventricle Normal left ventricular cavity size. Normal left ventricular systolic function. No regional wall motion abnormalities. Left ventricular ejection fraction is estimated at 70 %. Grade I/IV diastolic dysfunction (abnormal relaxation filling pattern), normal to mildly elevated filling pressures. Right Ventricle The right ventricle is normal in size and function. Right Atrium The right atrium is normal in size. Left Atrium The left atrium is normal in size. Mitral Valve Structurally normal mitral valve without significant stenosis or prolapse. There is no mitral regurgitation. Aortic Valve Aortic valve sclerosis. No aortic valve stenosis. No aortic valve regurgitation. Tricuspid Valve Structurally normal tricuspid valve without significant stenosis or regurgitation. Pulmonary artery systolic pressure is normal. Pulmonic Valve Structurally normal pulmonic valve without significant stenosis. There is no pulmonic regurgitation. Pericardium Normal pericardium without effusion. Aorta Normal ascending aorta dimension. CONCLUSIONS 1-Normal left ventricular cavity size. Normal left ventricular systolic function. No regional wall motion abnormalities. Left ventricular ejection fraction is estimated at 70 %. Grade I/IV diastolic dysfunction (abnormal relaxation filling pattern), normal to mildly elevated filling pressures. 2-No significant valve abnormalities. 3-There is no pericardial effusion. 4-Pulmonary artery systolic pressure is within normal limits. 5-Right atrial pressure is around 5 mm of mercury. 6-No significant change since the prior echocardiogram study of 07/14/2019. Naz Russ MD (Electronically Signed) Final Date: 20 Jul 2020 17:58 S
== END 2020-07-03 14:18 | disposition home or self-care (01) ==
LOC: US 14:19
PROVIDERS: PCP Internal Medicine; Visit Provider Internal Medicine Cardiovascular Disease
DX: I77.9 Disorder of arteries and arterioles, unspecified (principal); R06.02 Shortness of breath; I65.23 Occlusion and stenosis of bilateral carotid arteries
CPT/HCPCS: 93306; 93880

== ENCOUNTER → 2020-07-29 11:09 | Outpatient (BNVA) | payer MEDICARE, OTHER, SELFPAY | PROVIDERS: PCP Internal Medicine; Visit Provider Internal Medicine Rheumatology | DX: M06.041 Rheumatoid arthritis without rheumatoid factor, right hand (principal); M06.042 Rheumatoid arthritis without rheumatoid factor, left hand; Z79.899 Other long term (current) drug therapy | CPT/HCPCS: 36415; 80076; 82565; 85025 ==

== ENCOUNTER → 2020-08-01 09:10 | Outpatient (BNVA) | payer MEDICARE, OTHER, SELFPAY | PROVIDERS: PCP Internal Medicine; Visit Provider Specialist | DX: M06.041 Rheumatoid arthritis without rheumatoid factor, right hand (principal); M06.042 Rheumatoid arthritis without rheumatoid factor, left hand; R76.8 Other specified abnormal immunological findings in serum; Z79.899 Other long term (current) drug therapy; M25.569 Pain in unspecified knee | CPT/HCPCS: 73560; 73565; 99214 ==

== ENCOUNTER 2020-08-01 14:35 | Outpatient (CLI) | payer MEDICARE, OTHER, SELFPAY | END 2020-08-01 14:36 | disposition home or self-care (01) | LOC: SPT 14:36 | PROVIDERS: PCP Internal Medicine; Visit Provider Specialist | DX: M25.561 Pain in right knee (principal) | CPT/HCPCS: 97760; L1832 ==

== ENCOUNTER → 2020-08-26 09:57 | Outpatient (BNVA) | payer MEDICARE, OTHER, SELFPAY | PROVIDERS: PCP Internal Medicine; Visit Provider Specialist | DX: M25.569 Pain in unspecified knee (principal); S82.024A Nondisplaced longitudinal fracture of right patella, initial encounter for closed fracture; X58.XXXA Exposure to other specified factors, initial encounter | CPT/HCPCS: 73560; 73565 ==

== ENCOUNTER 2020-09-19 09:53 | Outpatient (CLI) | payer MEDICARE, OTHER, SELFPAY ==
--- NOTE | 2020-09-19 10:04 | XR_ITS ---
WS: [id number] Left shoulder, 2 views, 09/19/2020 Clinical Data: L SHOULDER PAIN Comparison: None. Findings: No fractures or dislocations are seen. The AC joint is normal. The adjacent left clavicle, left scapu la and ribs are normal. The soft tissues are unremarkable. XR/XR shoulder LT min 2V* [id number] Impression: Negative left shoulder.
== END 2020-09-19 09:54 | disposition home or self-care (01) ==
PROVIDERS: PCP Internal Medicine; Visit Provider Nurse Practitioner Family
DX: M25.512 Pain in left shoulder (principal)
CPT/HCPCS: 73030

== ENCOUNTER → 2020-11-05 09:44 | Outpatient (BNVA) | payer MEDICARE, OTHER, SELFPAY | PROVIDERS: PCP Internal Medicine; Visit Provider Internal Medicine Rheumatology | DX: M06.00 Rheumatoid arthritis without rheumatoid factor, unspecified site (principal); M06.041 Rheumatoid arthritis without rheumatoid factor, right hand; M06.042 Rheumatoid arthritis without rheumatoid factor, left hand; M15.9 Polyosteoarthritis, unspecified; Z79.899 Other long term (current) drug therapy | CPT/HCPCS: 36415; 80076; 82565; 85025; 86140 ==

== ENCOUNTER → 2020-11-06 14:13 | Outpatient (BNVA) | payer MEDICARE, OTHER, SELFPAY | PROVIDERS: PCP Internal Medicine; Visit Provider Internal Medicine Rheumatology | DX: M06.041 Rheumatoid arthritis without rheumatoid factor, right hand (principal); M06.042 Rheumatoid arthritis without rheumatoid factor, left hand; M06.00 Rheumatoid arthritis without rheumatoid factor, unspecified site; R76.8 Other specified abnormal immunological findings in serum; Z79.899 Other long term (current) drug therapy; I48.91 Unspecified atrial fibrillation; R42 Dizziness and giddiness; G62.9 Polyneuropathy, unspecified; K21.9 Gastro-esophageal reflux disease without esophagitis; Z96.653 Presence of artificial knee joint, bilateral; Z96.643 Presence of artificial hip joint, bilateral; Z71.89 Other specified counseling | CPT/HCPCS: 99214 ==

== ENCOUNTER 2020-11-19 06:00 | Outpatient (RCR) | payer MEDICARE, OTHER, SELFPAY | END 2020-12-12 23:59 | disposition home or self-care (01) | LOC: SOT 06:00 | PROVIDERS: PCP Internal Medicine; Referring Provider Nurse Practitioner Family; Visit Provider Nurse Practitioner Family | DX: M51.17 Intervertebral disc disorders with radiculopathy, lumbosacral region (principal); M79.10 Myalgia, unspecified site; M35.9 Systemic involvement of connective tissue, unspecified; Z91.81 History of falling | CPT/HCPCS: 97167; 97530 ==

== ENCOUNTER → 2020-11-19 08:55 | Outpatient (BNVA) | payer MEDICARE, OTHER, SELFPAY | PROVIDERS: PCP Internal Medicine; Referring Provider Internal Medicine; Visit Provider Orthopaedic Surgery | DX: M54.5 Low back pain (principal); G89.29 Other chronic pain; M51.35 Other intervertebral disc degeneration, thoracolumbar region | CPT/HCPCS: 72110 ==

== ENCOUNTER 2020-11-22 10:34 | Outpatient (CLI) | payer MEDICARE, OTHER, SELFPAY ==
--- NOTE | 2020-11-22 11:00 | USCV_ITS ---
Kojo Marinelli Age: 74 Gender: M : 1945 Exam Date: 11/22/2020 10:58 Ordering Phys: Melba Puga Technologist: Exam Location: [facility] [place] Indication: HISTORY: Lower extremity swelling. PROCEDURES: Bilateral duplex Venous Insufficiency study of the Deep and Superficial systems was carried out according to normal protocol with the patient in supine positon for deep system and dependent position for the superficial system. FINDINGS: All deep veins demonstrated compressibility without evidence of intraluminal thrombus or increased echogenicity. Spectral analysis of Doppler signals demonstrates normal response to compression maneuvers indicating patency without obstruction. Reflux determinations were made with the patient in the dependent position, the weight being on the contralateral leg. Vein measurements and reflux times are listed below were applicable. THIS PATIENT IS A GOOD CANIDATE FOR ABLATION IN BOTH LEGS CONCLUSIONS 1. No evidence of DVT in the above-mentioned identifiable veins. 2. Significant venous reflux of greater than 500 milliseconds were noted on the right side at the mid, distal and below-knee greater saphenous vein segments. These venous segments were measuring 0.42, 0.48 and 0.54 cm respectively in diameter and were at a depth of more than 1 cm from the surface. 3. Significant venous reflux of greater than 500 ms were noted on the left side throughout the greater saphenous vein segments. These venous segments were measuring anywhere from 0.37 to 0.75 cm in diameter. They were more than 1 cm deep from the surface. 4. No significant venous reflux were noted in the small saphenous veins on both sides. Dr Priyanka Rivas MD [facility] (Electronically Signed) Final Date: 25 November 2020 09:32 S
== END 2020-11-22 10:35 | disposition home or self-care (01) ==
LOC: US 10:36
PROVIDERS: PCP Internal Medicine; Visit Provider Nurse Practitioner Family
DX: M79.89 Other specified soft tissue disorders (principal); I87.2 Venous insufficiency (chronic) (peripheral)
CPT/HCPCS: 93970

== ENCOUNTER 2020-12-03 08:45 | Outpatient (CLI) | payer MEDICARE, OTHER, SELFPAY ==
[2020-12-03 09:16] VITALS: BMI 37.3
--- NOTE | 2020-12-03 10:18 | ECG_ITS ---
[facility] Test Date: 2020-12-03 Pat Name: Kojo Marinelli Department: Room: Gender: Male Med Dir: Sis Burnett : 1945 Requested By: Melba Puga Order Number: [id number] Tessa MD: Priyanka Rivas M.D. Interpretive Statements NAME OF STUDY: LEXISCAN SESTAMIBI STRESS TEST INDICATION: Chest Pain, PROCEDURE: At the baseline, the EKG revealed sinus bradycardia with a rate of 55 bpm. Left axis deviation. Nonspecific IVCD. Voltage criteria for LVH. The baseline blood pressure was 139/80 mm Hg with a heart rate of 55 beats/min. Lexiscan was infused over a period of 20 seconds. A total of 0.4 milligrams of Lexiscan was infused. The stress phase was continued for a total of 5 minutes. Heart rate at the end of the stress phase was 77 with a blood pressure 126/66. The EKG at the peak infusion revealed no significant changes. Sestamibi was injected 20 seconds after the Lexiscan infusion. Blood pressure at the end of the recovery phase was 128/68 with a heart rate of 80 per minute. CONCLUSION: 1. No significant EKG changes with the LexiScan infusion 2. No LexiScan induced chest pain or cardiac arrhythmia 3. Normal blood pressure and heart rate response 4. Sestamibi/sestamibi perfusion scan pending; see separate report. Electronically Signed On 12-05-2020 0:43:58 CDT by Priyanka Rivas M.D. [id number]
--- NOTE | 2020-12-03 10:19 | NMCV_ITS ---
NM pamela perf SPECT r/s* [id number] Kojo Marinelli Age: 74 Gender: M : 1945 Exam Date: 12/03/2020 10:19 Ordering Phys: Melba Puga Technologist: MINGO Salazar Exam Location: [facility] Indications: CHEST PAIN STRESS TEST Please see separate stress test report in [facility] for full findings IMAGE PROTOCOL Rest/Stress 1 Lexiscan Day Radiopharmaceutical Dose (mCi) Administration Site Administered by Rest: Tc-99m 10.6 IV MINGO Page Sestamibi Stress:Tc-99m 32.7 IV MINGO Page Sestamibi Rest: 03-Dec-2020 60 Discovery 630 Stress: 03-Dec-2020 30 Discovery 630 0.4mg Lexiscan. Images obtained in supine and prone position. SPECT RESULTS Technical Quality: Excellent Raw Data Analysis: Normal Image Corrections: No attenuation or motion correction applied Summed Stress Score: 6 Summed Rest Score: 2 Summed Difference Score: 4 PERFUSION FINDINGS Small to moderate area of moderate decreases uptake in the mid inferolateral, apical inferior and apical lateral regions. Some reversibility was noted in the inferolateral and apical lateral regions. FUNCTIONAL RESULTS (calculated via Gated SPECT) Stress Image LV EF (%): 55 Stress EDV (mL):134 TID: 1.15 Stress ESV (mL):60 FUNCTIONAL FINDINGS: Segmental wall motion analysis revealed a mild hypokinesia of the LV apex IMPRESSIONS 1. Myocardial perfusion imaging revealing small to moderate area of reversible defect in the inferolateral and apical inferior regions, suggestive of ischemia mostly in the distribution of the circumflex artery with some involvement of the right coronary artery. Elevated transient ischemic dilatation ratio(1.5) also may suggest endocardial ischemia. 2. Normal ejection fraction 55%. 3. LV wall motion analysis revealing mild hypokinesia of the LV apex. 4. Mildly dilated LV cavity with an end-systolic volume of 60 mL Compared to the study from 07/05/2018, the above findings appear to be new Dr Priyanka Rivas MD F[facility] (Electronically Signed) Final Date: 03 December 2020 17:39 S
[2020-12-03] MEDS: regadenoson 0.4 Mg/5 ml Syringe IVP (11:25)
[2020-12-03 11:26] VITALS: BP 114/62; PULSE 82
[2020-12-03] MEDS: aminophylline 25 mg/mL SDV 10 mL IVP (11:36)
== END 2020-12-03 08:46 | disposition home or self-care (01) ==
LOC: CDL 08:50
PROVIDERS: PCP Internal Medicine; Visit Provider Nurse Practitioner Family
DX: R06.02 Shortness of breath (principal); R53.83 Other fatigue; R07.9 Chest pain, unspecified; I25.9 Chronic ischemic heart disease, unspecified
CPT/HCPCS: 78452; 93017; A9500; J0280; J2785

== ENCOUNTER 2020-12-04 08:23 | Outpatient (CLI) | payer MEDICARE, OTHER, SELFPAY ==
--- NOTE | 2020-12-04 08:32 | IR_ITS ---
WS: [id number] Lumbar myelogram, 12/04/2020 Clinical Data: LOW BACK PAIN Comparison: Lumbar spine, 11/19/2020. Fluoroscopy time: 1.3 minutes. Findings: With the usual technique, a 22 gauge spinal needle was inserted into the lumbar subarachnoid space at L2-L3. The contrast material was hand injected. Approximately 15 mL of 240 mg/mL Omnipaque entered the lumba r subarachnoid space. The patient has had bilateral pedicle screws from L1 through L4 with connecting rods and a transverse band. A laminectomy at L4-L5 with bony fusion at L4-L5 is seen. There is osteo arthritis of all the lumbar vertebral bodies with disc space narrowing at all lumbar disc spaces. No compression fractures are seen. Flexion, extension and neutral lateral views demonstrated no subluxation. There is limitation of bruce on on flexion and extension. The lumbar fusion is intact. No intramedullary, intradural or extradural defects are seen. The patient has had bilateral hip replacements. There are cholecystectomy clips in the right upper qu adrant.. IR/IR myelogram sp lumbar [id number] Impression: 1. Negative for intramedullary, intradural or extradural defects of the spinal cord or spinal canal. 2. Intact posterior lumbar fusion and lower lumbar bony fusion.
--- NOTE | 2020-12-04 08:32 | CT_ITS ---
WS: [id number] CT of the lumbar spine, additional two-dimensional coronal and sagittal imaging was obtained. Post my elogram, 12/04/2020 Clinical Data: LOW BACK PAIN Comparison: CT lumbar spine, 08/03/2017. DLP: 1792.[address] scans at [facility] use at least one of these dose optimization techniques: automated e xposure control; mA and/or kV adjustment per patient size (includes targeted exams where dose is matc hed to clinical indication); or iterative reconstruction. Findings: The bilateral pedicle screws from L1 through L4 are intact and connected with rods, and the re is a transverse band at L3-L4 between the rods. There are disc spacers at L4-L5 and L5-S1. There i s osteoarthritis at almost all the vertebral body levels. There is disc space narrowing at T12-L1, L1 -L2 and L2-L3. There is a laminectomy at L4-L5 with bony fusion at L4-L5. The transverse processes an d SI joints are not remarkable. T12-L1: There is posterior disc osteophyte impingement with facet joint overgrowth causing canal and foraminal stenosis. L1-L2: There is posterior disc osteophyte formation with facet joint hypertrophy causing canal and fo raminal stenosis. L2-L3: There is posterior disc osteophyte formation with facet joint hypertrophy causing canal and fo raminal stenosis. L3-L4: The patient has had a laminectomy and there is no canal stenosis. L4-L5: No canal stenosis, disc bulge or foraminal narrowing is seen. L5-S1: No canal stenosis, disc bulge or foraminal narrowing is seen. CT/CT lumbar spine w con [id number] Impression: 1. Posterior lumbar fusion from L1 through L4 intact. 2. Fusion with laminectomy at L4 and L5 and artificial disks at L4-L5 and L5-S1 . 3. Multilevel disc osteophyte impingement with facet joint hypertrophy causing canal and foraminal stenosis from T12-L1 through L2-L3.
[2020-12-04] MEDS: iohexol 240 mg/mL 50 mL Btl INTRATHECA (09:45)
== END 2020-12-04 08:24 | disposition home or self-care (01) ==
PROVIDERS: PCP Internal Medicine; Visit Provider Orthopaedic Surgery
DX: M54.5 Low back pain (principal); M43.26 Fusion of spine, lumbar region; M96.1 Postlaminectomy syndrome, not elsewhere classified; M25.78 Osteophyte, vertebrae; M48.05 Spinal stenosis, thoracolumbar region; M48.061 Spinal stenosis, lumbar region without neurogenic claudication
CPT/HCPCS: 62304; 72120; 72132; Q9966

== ENCOUNTER → 2020-12-09 17:05 | Outpatient (BNVA) | payer MEDICARE, OTHER, SELFPAY | PROVIDERS: PCP Internal Medicine; Visit Provider Internal Medicine Cardiovascular Disease | DX: Z01.818 Encounter for other preprocedural examination (principal); R07.9 Chest pain, unspecified; R94.39 Abnormal result of other cardiovascular function study | CPT/HCPCS: 80048; 85025; 85610; 87635 ==

== ENCOUNTER 2020-12-17 06:07 | Outpatient (CLI) | payer MEDICARE, OTHER, SELFPAY ==
[2020-12-17] VITALS (14 sets, daily range): BP systolic 114–190; BP diastolic 64–100; PULSE 56–72; RESP 9–31; TEMP 36.6; O2SAT 94–95; BMI 37.3
--- NOTE | 2020-12-17 06:00 | XACV_ITS ---
Ht: 178 cm Wt: 118 kg BSA: 2.46 m2 Gender: Male : 1945 Any Known Allergies: Other Exam Priority: Routine Procedure(s): Procedure Description: Diagnostic procedure Procedure Description: Left Heart Catheterization Procedure Description: Right Heart Catheterization Procedure Description: Left ventriculography Procedure Description: O2 saturation Procedure Description: Coronary Angiography Petrona MACE; Diagnostic Cath Status: Elective Diagnostic Findings * No disease noted in the Left Main, Left Anterior Descending, Right, or Circumflex coronary arteries. * Coronary angiography shows left dominance. Conclusions 1. No disease noted in the Left Main, Left Anterior Descending, Right, or Circumflex coronary arteries. 2. Hyperdynamic left ventricular systolic function. Ejection fraction of 70%. 3. Right atrium 4. 15 5. mmHg 6. PA mean 7. 28 8. mmHg 9. RV 10. 44/19/17 mmHg 11. PCW 17mmHg High cardiac output 9 L/min, cardiac index 4No stepup notedNo shunt noted 12. . Recommendations * Continue current medical management and risk factor modification. Diagnostic RX Recommendation: medical therapy and/or counseling Ventriculography Ejection Fraction: 70.0 % Left Ventriculography Findings: * Hyperdynamic left ventricle ejection fraction with no wall motion abnormality. Pressures Phase:Rest AO : 114 / 69 ( 89 ) @ 7:40:00 AM 130 / 37 ( 77 ) @ 7:53:00 AM 135 / 45 ( 85 ) @ 7:53:00 AM LV : 133 / 8 / 20 @ 7:51:00 AM 135 / 7 / 23 @ 7:53:00 AM 134 / 6 / 21 @ 7:53:00 AM RV : 44 / 9 / 17 @ 7:22:00 AM PA : 44 / 21 ( 28 ) @ 7:14:00 AM RA : a wave = 18 v wave = 16 mean = 15 @ 7:24:00 AM a wave = 18 v wave = 17 mean = 15 @ 7:25:00 AM PCW : a wave = 19 v wave = 18 mean = 17 @ 7:15:00 AM O2 Content Phase:Rest PA : O2 Content O2: 71.8 @ 7:40:00 AM Saturations Phase:Rest AO : 91 @ 7:51:00 AM RA : 74 @ 7:53:00 AM RV : 70 @ 7:53:00 AM PA : 72 @ 7:40:00 AM Cardiac Output Phase:Rest Santa : 9 @ 9:00:54 AM Santa Cardiac Index: 4 @ 9:00:54 AM Flow Phase:Rest Qp : 9 @ 9:00:54 AM Qs : 10 @ 9:00:54 AM Valves Phase:DefaultPhase AV : 4.0 @ 9:00:54 AM 4.0 @ 9:00:54 AM AV Mean Gradient: 5.0 @ 9:00:54 AM 5.0 @ 9:00:54 AM AV Flow: 378 @ 9:00:54 AM AV Area: 3.8 @ 9:00:54 AM AV Area Index: 1.64 @ 9:00:54 AM Clinical Evaluation EBL: 5mL-10mL Procedural Details Procedure Consent Obtained. Pre-Procedure Time Out. Identified patient by full name and date of as verbalized by the patient/guarantor. Does the consent match the physician's order: Yes. Accurate & Complete Informed Consent: Yes. Inpatient/Outpatient History & Physical on Chart: Yes. If H&P is completed, is and addenduem needed: No; If yes, is the addendum complete: N/A. Visualize and Verify Site with Patient/Guarantor: N/A. Relevant Radiology Images available: N/A. Pre-op teaching completed and patient verbalized understanding. The risks, benefits, and alternatives of sedation and/or procedure were discussed by physician. The patient agrees to continue. Aurelia Solomon RN will be circulating nurse for procedure. Procedure started. [facility] Clinical Fraility Score: 4: Vulnerable. Borough Coordinator Indications: Worsening Angina. Chest Pain Symptom Assessment: Typical Angina Symptoms. Cardiovascular Instability: No. Correct patient, site and procedure confirmed by cath team. PERRLA. Strong, equal hand manager domestic bilaterally. Lungs clear x 5 lobes. IV Site on Arrival: 18 gauge in the right anticubital. IV Site on Arrival: 18 gauge in the left anticubital. IV Fluids: 0.9% NaCl at KVO. 0 mL infused prior to botany laboratory assistant. Pre Procedural Pulses: bilateral dorsalis pedis was Doppled. Pre Procedural Pulses: bilateral posterior tibial was Doppled. Pre Procedural Pulses: bilateral radial was 2+. right brachial was prepped with chloroprep then draped in the usual sterile fashion. right groin was prepped with chloroprep then draped in the usual sterile fashion. right radial was prepped with chloroprep then draped in the usual sterile fashion. Baseline sample Acquired. HR: 69 BPM. Navin Jackson will be automotive technology instructor for this procedure. Physician arrived. Equipment: 6F - Radial. Cardiac Cath Pack. ACIST Manifold Kit Model BT 2000. Heparinized Saline (2 units/mL), 1000 mL bag. Physician notified. Physician scrubbed in. Immediate Pre-Procedure Time Out. Correct Patient: Yes; Correct Procedure: Yes; Correct Site: Yes; Correct Patient Position: Yes; Correct Supplies: Yes; Dried Flammable Prep: Yes; Blood Products Available: N/A;. Wire inserted through IV catheter in right brachial vein. IV catheter removed over wire. Lidocaine 1% infiltrated to the right brachial. [place]-Zack MON catheter inserted. [place] wire inserted. Wire used to advance [place]. Wire out. [place]-Zack out. Lidocaine 1% infiltrated to the right radial. Arterial access obtained. A 5 russian Clayton catheter in over wire. Multiple views taken of left coronary artery. Catheter redirected to the RCA. Multiple views taken of right coronary artery. A 5 russian Angled Pig catheter in over wire. EDP Sample taken: LV 133/8,20; HR: 65 BPM; SpO2: 96%. LV gram performed in VALDES @ 10 mL/second for a total of 30 mL. EDP Sample taken: LV 135/7,23; HR: 61 BPM; SpO2: 96%. Pullback taken: LV 134/6,21; AO 130/37(77); Mean: 5mmHg, Peak to Peak: 4mmHg, SEP: 23sec/min; HR: 63 BPM; SpO2: 97%. Catheter removed over the exchange wire. Physician scrubbed out. A TR Band was successful obtaining hemostatsis at the Right Radial artery insertion site. A Manual Compression was successful obtaining hemostatsis at the Right Brachial Vein insertion site. TR band placed. Hemostasis obtained. Venous Sheath(s) removed and manual pressure held until hemostasis was achieved. Sterile 4x4 and Op-site applied to the puncture site. No oozing or hematoma noted. Post sheath removal instructions were given and the patient verbalized understanding. Post Procedure: Pulses reassessed and unchanged. PERRLA. Strong, equal hand manager domestic bilaterally. No VTE prophylaxis required. Medication's Wasted: Lidocaine 1% = 12 mL. Medication's Wasted: Nitro = 49.8 mg. Medication's Wasted: Other = versed 1 mg. Medication's Wasted: Heparin = 1000 units. Total IV fluids: 71 mL. Contrast type used: Omnipaque 300 mgI/mL, 500 mL bottle. Complications: none. Estimated blood loss: 5mL-10mL. Procedure completed. Patient transferred by wheelchair to 1st floor. Vital chart was stopped. Access Site Site: Right Brachial Vein Sheath Size: 6 Fr Hemostasis Method: Manual Compression Hemostasis Success: Successful Site: Right Radial artery Sheath Size: 6 Fr Hemostasis Method: TR Band Hemostasis Success: Successful Procedure Medications Start: 7:59 AM Stop: 7:59 AM Medication: Versed Amount: 1 mg Route: I.V. Start: 7:59 AM Stop: 7:59 AM Medication: Fentanyl Amount: 50 mcg Route: I.V. Start: 8:03 AM Stop: 8:03 AM Medication: Versed Amount: 1 mg Route: I.V. Start: 8:04 AM Stop: 8:04 AM Medication: Fentanyl Amount: 25 mcg Route: I.V. Start: 8:06 AM Stop: 8:06 AM Medication: Versed Amount: 1 mg Route: I.V. Start: 8:26 AM Stop: 8:26 AM Medication: Versed Amount: 1 mg Route: I.V. Start: 8:28 AM Stop: 8:28 AM Medication: Fentanyl Amount: 25 mcg Route: I.V. Start: 8:37 AM Stop: 8:37 AM Medication: Versed Amount: 1 mg Route: I.V. Start: 8:40 AM Stop: 8:40 AM Medication: Heparin Amount: 5000 units Route: I.V. Start: 8:36 AM Stop: 8:36 AM Medication: Nitrogylcerin Amount: 200 mcg Route: I.A. I, the attending physician, have reviewed and verified all procedure medications. Yes, all medications given per verbal order History/Risk Factors Hypertension: Yes Dyslipidemia: Yes Peripheral Arterial Disease (PAD): No Myocardial Infarction (NM): No Obesity: Yes Renal Disease: No Tobacco Use: Never Prior Interventions PCI: No CABG: No Valve Surgery: No Report Signatures Finalized by Naz Russ MD on 12/31/2020 08:43 PM
[2020-12-17] MEDS: diphenhydrAMINE 50 mg Capsule PO (06:27)
--- NOTE | 2020-12-17 07:53 | W.PM.OPSUD ---
Surgery/Procedure H&P Update DATE OF PROCEDURE: December 17, 2020 DATE H&P PERFORMED: 12/09/20 H&P UPDATE INFORMATION: I have reviewed H&P completed within last 30 days and I have examined patient prior to procedure CHANGES TO PREVIOUS DOCUMENTATION: Shortness of breath more than usual, abnormal stress test, chest pain PLANNED PROCEDURE: Operation Date: 12/17/20 07:00 Proposed Procedures p Cardiac Catheterization(Left) - Naz Russ MD PATIENT REASSESSED PRIOR TO SEDATION, WITH NO CHANGE NOTED: Yes PHYSICAL EXAM: alert, oriented x 3 and clear to auscultation bilaterally AIRWAY EVAL/ANESTHESIA PLAN: ASA II, Risks, benefits & alternatives of sedation and/or procedure discussed and Patient agrees to continue as planned ADDITIONAL INFORMATION: All the risk benefit and alternative for the procedure including stroke contrast-induced nephropathy renal failure major minor bleeding transfusion was explained to the patient in detail by myself. He agrees to it and would like to proceed with it
[2020-12-17] MEDS: aspirin 81 mg EC Tablet PO (10:41)
[2020-12-17] MEDS: isosorbide mononitrate ER 30 mg Tablet PO (10:41)
[2020-12-17] MEDS: sodium chloride 0.9% 1,000 ML 100 ML IV (11:00)
== END 2020-12-17 16:00 | disposition home or self-care (01) ==
LOC: CCL 06:31 → CSU 09:26
PROVIDERS: PCP Internal Medicine; Visit Provider Internal Medicine Cardiovascular Disease
DX: R07.9 Chest pain, unspecified (principal); R94.39 Abnormal result of other cardiovascular function study; R06.02 Shortness of breath; I10 Essential (primary) hypertension; E78.5 Hyperlipidemia, unspecified; E66.9 Obesity, unspecified; Z68.37 Body mass index [BMI] 37.0-37.9, adult; I25.10 Atherosclerotic heart disease of native coronary artery without angina pectoris; J44.9 Chronic obstructive pulmonary disease, unspecified; M19.90 Unspecified osteoarthritis, unspecified site; K21.9 Gastro-esophageal reflux disease without esophagitis; I25.2 Old myocardial infarction; Z85.46 Personal history of malignant neoplasm of prostate; Z86.73 Personal history of transient ischemic attack (TIA), and cerebral infarction without residual deficits; Z82.49 Family history of ischemic heart disease and other diseases of the circulatory system; Z82.3 Family history of stroke; I87.2 Venous insufficiency (chronic) (peripheral)
CPT/HCPCS: 36415; 93458; 93460; C1751; C1769; C1887; C1894; J1644; J2250; J3010; J3490; J7030; Q0163; Q9967

== ENCOUNTER → 2020-12-24 15:26 | Outpatient (BNVA) | payer MEDICARE, OTHER, SELFPAY | PROVIDERS: PCP Internal Medicine; Visit Provider Nurse Practitioner Family | DX: Z09 Encounter for follow-up examination after completed treatment for conditions other than malignant neoplasm (principal); I20.0 Unstable angina | CPT/HCPCS: 80048 ==

== ENCOUNTER → 2021-01-16 09:42 | Outpatient (BNVA) | payer MEDICARE, OTHER, SELFPAY | PROVIDERS: PCP Internal Medicine; Visit Provider Specialist | DX: Z96.651 Presence of right artificial knee joint (principal); Z96.653 Presence of artificial knee joint, bilateral | CPT/HCPCS: 73560; 73565 ==

== ENCOUNTER 2021-02-05 14:27 | Outpatient (CLI) | payer MEDICARE, OTHER, SELFPAY ==
--- NOTE | 2021-02-05 14:29 | XR_ITS ---
WS: [id number] SCREENING DEXA SCAN [employer] CLINICAL INFORMATION: OSTEOPOROSIS COMPARISON: None. FINDINGS: The left forearm bone mineral density measures 0.913. This corresponds to a T score score of -0.8 and Z score of 0.3. Right forearm bone mineral density measures 0.905 with a T score of -0.9 and Z score of 0.2 XR/XR DEXA axial skeleton* [id number] IMPRESSION: Normal bone mineralization. FRAX not calculated due to radius bone mineral density only
== END 2021-02-05 14:28 | disposition home or self-care (01) ==
PROVIDERS: PCP Internal Medicine; Visit Provider Internal Medicine
DX: M81.0 Age-related osteoporosis without current pathological fracture (principal)
CPT/HCPCS: 77080

== ENCOUNTER → 2021-02-13 14:07 | Outpatient (BNVA) | payer MEDICARE, OTHER, SELFPAY | PROVIDERS: PCP Internal Medicine; Visit Provider Orthopaedic Surgery | DX: Z01.818 Encounter for other preprocedural examination (principal) | CPT/HCPCS: 87635 ==

== ENCOUNTER 2021-02-17 12:16 | Inpatient (IN) | payer MEDICARE, OTHER, SELFPAY ==
[2021-02-13 11:40] VITALS: BMI 37.3
[2021-02-13 12:20] LABS: Basophils # 0.1 10^3/uL (0.0-0.1); Eosinophils % 0.2 %; Hematocrit 32.2 % (42.0-52.0); Hemoglobin 10.2 g/dL (11.7-16.6); Lymphocytes # 0.5 10^3/uL (0.8-4.8); Lymphocytes % 9.8 %; Mean Corpuscular HGB Conc 31.7 g/dL (30.0-36.0); Mean Corpuscular Hemoglobin 31.7 pg (28.0-34.0); Mean Platelet Volume 9.5 fL (7.4-10.4); Monocytes # 0.5 10^3/uL (0.2-0.9); Neutrophils # 3.82 10^3/uL (1.8-7.7); Neutrophils % 77.8 %; Nucleated Red Blood Cells % 0 %; Platelet Count 153 10^3/cmm (130-400); Red Blood Count 3.22 10^6/uL (4.1-5.3); Red Cell Distribution Width 14.3 % (12.1-15.1); White Blood Count 4.9 10^3/uL (4.0-10.0)
--- NOTE | 2021-02-13 12:31 | ANES.PREANE2 ---
Pre-Anesthetic Assessment Pre-Anesthetic Assessment: Height/Weight: Height 1.78 m Weight 117.934 kg Preop Diagnosis: ddd Lumbar spine, Chronic Back pain Proposed Procedure: Operation Date: 02/17/21 07:00 Proposed Procedures p Spinal Fusion T-10 19234 x3 62569 46288l 4 50999 58675 35947 16294 M96.1(Not Applicable) - Enrike H Isaura, DO Was Beta Ángela taken within 24 hours: Yes Was Clonidine taken within 24 hours: N/A Social: Social History: No alcohol and No tobacco Exam: Pre-Anes Outpt Exam: alert, oriented x 3, clear to auscultation bilaterally and regular rate & rhythm Airway: Submandibular: WNL Cervical ROM: Other (Limited ROM in extension and flexion d/t prior cervical fusion) MP: 2 Dentition: Partials Pulmonary: Pulmonary: COPD Comments: COPD of [facility] org[facility] On nightly BiPAP CV/HEM: CV/HEM: HTN and AR Comments: METS < 4 d/t pain Cardiac Test Copied from Dr. Puga's Note Date of Service: 12/03/20 Procedure(s): Sestamibi Stress Test Request CONCLUSION: 1. No significant EKG changes with the LexiScan infusion 2. No LexiScan induced chest pain or cardiac arrhythmia 3. Normal blood pressure and heart rate response 4. Sestamibi/sestamibi perfusion scan pending; see separate report. Electronically Signed On 12-05-2020 0:43:58 CDT by Priyanka Rivas M.D. Date of Service: 12/03/20 Procedure(s): NM pamela perf SPECT r/s* [id number] IMPRESSIONS 1. Myocardial perfusion imaging revealing small to moderate area of reversible defect in the inferolateral and apical inferior regions, suggestive of ischemia mostly in the distribution of the circumflex artery with some involvement of the right coronary artery. Elevated transient ischemic dilatation ratio(1.5) also may suggest endocardial ischemia. 2. Normal ejection fraction 55%. 3. LV wall motion analysis revealing mild hypokinesia of the LV apex. 4. Mildly dilated LV cavity with an end-systolic volume of 60 mL Compared to the study from 07/05/2018, the above findings appear to be new Dr Priyanka Rivas MD [facility] (Electronically Signed) Date of Service: 11/22/20 Procedure(s): CV venous dup insufficie LE BI CONCLUSIONS 1. No evidence of DVT in the above-mentioned identifiable veins. 2. Significant venous reflux of greater than 500 milliseconds were noted on the right side at the mid, distal and below-knee greater saphenous vein segments. These venous segments were measuring 0.42, 0.48 and 0.54 cm respectively in diameter and were at a depth of more than 1 cm from the surface. 3. Significant venous reflux of greater than 500 ms were noted on the left side throughout the greater saphenous vein segments. These venous segments were measuring anywhere from 0.37 to 0.75 cm in diameter. They were more than 1 cm deep from the surface. 4. No significant venous reflux were noted in the small saphenous veins on both sides. Dr Priyanka Rivas MD [facility] (Electronically Signed) Date of Service: 07/03/20 Procedure(s): CV echo complete* [id number] CONCLUSIONS 1-Normal left ventricular cavity size. Normal left ventricular systolic function. No regional wall motion abnormalities. Left ventricular ejection fraction is estimated at 70 %. Grade I/IV diastolic dysfunction (abnormal relaxation filling pattern), normal to mildly elevated filling pressures. 2-No significant valve abnormalities. 3-There is no pericardial effusion. 4-Pulmonary artery systolic pressure is within normal limits. 5-Right atrial pressure is around 5 mm of mercury. 6-No significant change since the prior echocardiogram study of 07/14/2019. Naz Russ MD (Electronically Signed) Date of Service: 07/03/20 Procedure(s): CV carotid duplex BI* [id number] CONCLUSIONS Right ICA stenosis <50%. Left ICA stenosis <50%. Normal antegrade Doppler flow noted in the right vertebral artery. Normal antegrade Doppler flow noted in the left vertebral artery. James Barroso MD (Electronically Signed) Cath Repor 01/06/21 Dr. Fuentes Conclusions 1. No disease noted in the Left Main, Left Anterior Descending, Right, or Circumflex coronary arteries. 2. Hyperdynamic left ventricular systolic function. Ejection fraction of 70%. 3. Right atrium 4. 15 5. mmHg 6. PA mean 7. 28 8. mmHg 9. RV 10. 44/19/17 mmHg 11. PCW 17mmHg High cardiac output 9 L/min, cardiac index 4No stepup notedNo shunt noted : Comments: Hx of prostate cancer s/p radiation Hepatic: Hepatic: None reported GI: GI: GERD Comments: Hx of Gastroparesis Metabolic: Metabolic: None reported Musc/skel: Musc/skel: Lower Back Pain, RA (Seronegative RA hx) and Weakness Comments: Difficulty walking due to leg weakness and back pain. Unable to ascend stairs Neuropsych: Neuropsych: None reported Anesthetic Plan: ASA status: 3 Anesthesia: Anesthesia Evaluation and General Risk of > 500 ml blood loss (7ml/kg in children): Yes, adequate IV access and fluids planned PFSH Anesthesia PFSH: Medical History Carotid artery disease Cervical postlaminectomy syndrome CHF (congestive heart failure), NYHA class III Chronic low back pain Chronic venous insufficiency COPD (chronic obstructive pulmonary disease) DJD (degenerative joint disease) Gastroparesis GERD (gastroesophageal reflux disease) 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, greater than 8 weeks H/O prostate cancer High risk medication use History of nonmelanoma skin cancer History of TIA (transient ischemic attack) HTN (hypertension) Hx of cataract Hyperlipidemia Hypothyroid Immunization counseling Immunosuppression Inflammatory arthritis FUAD (obstructive sleep apnea) Osteoarthritis, generalized Positive CORBY (antinuclear antibody) EDUARDO was negative in 2013 Radiation cystitis Seronegative rheumatoid arthritis Seronegative rheumatoid arthritis of both hands Shortness of breath Undifferentiated connective tissue disease Surgical History H/O colonoscopy 2012 H/O esophagogastroduodenoscopy 2012 H/O neck surgery x 2 H/O total knee replacement right and left History of abdominal aortic aneurysm (AAA) repair History of back surgery x 7 History of cardiac cath 7 years ago nonobstructive, negative stress test 1 year ago 2019 History of hip surgery RIGHT 04/11/19 History of tonsillectomy and adenoidectomy History of total left hip arthroplasty Hx of appendectomy Hx of cholecystectomy 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 Family History Mother Bleeding disorder Other CAD (coronary artery disease) Cancer Stroke Denies family history of Anesthesia complication Social History Alcohol intake: never Household members: spouse Marital status: Current occupational status: retired History of recent travel: No Data Anesthesia CBC & Chem 7: 02/13/21 12:05 02/13/21 12:05 Other Labs: Laboratory Results - last 48 hr 02/13/21 12:05 WBC 4.9 RBC 3.22 L Hgb 10.2 L Hct 32.2 L MCV 100.0 H MCH 31.7 MCHC 31.7 RDW 14.3 Plt Count 153 MPV 9.5 Neut % (Auto) 77.8 Lymph % (Auto) 9.8 Cowley % (Auto) 11.0 Eos % (Auto) 0.2 Baso % (Auto) 1.0 Neut # (Auto) 3.82 Lymph # (Auto) 0.5 L Cowley # (Auto) 0.5 Eos # (Auto) 0.0 Baso # (Auto) 0.1 Nucleated RBC % (auto) 0 Nucleated RBCs # 0.0 Cardiac Studies: No Data to Display
[2021-02-13 13:06] LABS: Anion Gap 17.8 (5-19); Blood Urea Nitrogen 13 mg/dL (8-23); Calcium 8.4 mg/dL (8.5-10.5); Carbon Dioxide 23 mmol/L (22-29); Chloride 105 mmol/L (98-107); Glucose 134 mg/dL (65-115); Osmolality Calculated 296 mOsm/kg (285-295); Potassium 3.8 mmol/L (3.5-5.1); Sodium 142 mmol/L (136-145)
[2021-02-17] VITALS (22 sets, daily range): BP systolic 90–174; BP diastolic 75–115; PULSE 65–95; RESP 14–24; TEMP 36.2–37.1; O2SAT 90–99
--- NOTE | 2021-02-17 | SCC_ITS ---
Procedure Done: 1. T9- S1/ pelvis fusion 2. T9- S1 instrumentation 3. lumbo pelvic fixation/instrumentation 4. computer navigation/ stereotactic spine 5. use of allograft 6. Complex revision of scar 8 inches by 1/2 inch 7. bone marrow aspirate from right iliac crest 8. Removal of deep hardware from spine/ placement of new hardware 33 seconds of fluoroscopic guidance, for a cumulative dose of 148.4 mGy, was provided to Dr. Delarosa by the radiology department. C-arm images of the lumbar spine were saved for the patient's permanent record. NIDIA
--- NOTE | 2021-02-17 | XR_ITS ---
WS: [id number] Exam: XR lumbar spine 2-3V* [id number] Date/Time of Exam: 02/17/2021 12:00 AM Reason For Exam: lumbar decompression There is posterior fusion of the spine from T9 to S1 with pedicle screws and posterior rods. Screws a lso bridge the right and left SI joints. Decompression laminectomy of the lumbar spine. No sign of ramirez rdware failure or malposition. XR/XR lumbar spine 2-3V* [id number] IMPRESSION: 1. Posterior fusion from T9 to S1 with decompression laminectomy of the lumbar spine. Hardware appears to be in satisfactory position.
[2021-02-17] MEDS: sodium chloride 0.9% 1,000 ML 30 ML IV (06:43)
--- NOTE | 2021-02-17 06:44 | P.ANESUD_ITS ---
Pre-Anesthetic Update Pre-Anesthetic Assessment: Date of Surgery/Procedure: 02/17/21 Preop Deborah gnosis: ddd Lumbar spine, Chronic Back pain Proposed Procedure: Operation Date: 02/17/21 07:00 Proposed Procedures p Spinal Fusion T-10 27970 x3 92917 [id number] 4 96244 34142 37993 46599 M96.1(Not Applicable) - Enrike Delarosa, DO Any changes to Pre-Anesthetic Assessment?: No Last Intake: Intake Last Liquid Date 02/16/21 Last Liquid Time 19:00 Last Solid Date 02/16/21 Last Solid Time 19:00 Vitals: Temperature 98.3 F 02/17/21 06:08 Temperature Source Temporal Artery S can 02/17/21 06:08 Pulse Rate 65 02/17/21 06:08 Pulse Rhythm 02/17/21 06:08 Pulse Strength 3+ Normal 02/17/21 06:08 Respiratory Rate 18 02/17/21 06:08 Blood Pressure 165/115 02/17/21 06:08 Blood Pressure Pinky n 131 02/17/21 06:08 Pulse Oximetry 95 02/17/21 06:08 Oxygen Delivery Me thod 02/17/21 06:08 Exam: Pre-Anes Outpt Exam: alert, oriented x 3, clear to auscultation bilaterally and regular rate & rhythm Cardiac Studies: No Data to Display
--- NOTE | 2021-02-17 06:45 | P.HP_ITS ---
Providers/Chief Complaint Primary Care Provider: Marsha Turner MD Chief Complaint: spinal fusion History of Present Illness Kojo Marinelli is a 75 year old male lower back pain. Patient states that 53 years ago he had a crushing injury and has had several surgeries since then. Dr. Casillas in [place] had performed the last procedure. He follows up today with continued back pain he is frustrated because he feels that his back pain limits things he can do around his residence. Ambulates with a cane he is here with his today. He has been treated by Dr. Mattson for his left foot. He follows up today after a CT myelogram done and he is here to go over results. Associated symptoms: Denies abdominal pain, chills, fatigue, fever(s), nausea or vomiting Review of Systems Narrative: General ROS: negative for weight changes, fever ENT ROS: negative for nasal congestion, drainage or bleeding, sore throat, dysphagia or ear pain Eyes: PERRL Hematological and Lymphatic ROS: negative for swollen glands or abnormal bleeding Endocrine ROS: negative for polyuria/polydpsia or new changes in weight Respiratory ROS: negative for cough, shortness of breath, or wheezing Cardiovascular ROS: negative for chest pain or dyspnea on exertion Gastrointestinal ROS: negative for reflux, abdominal pain, change in bowel habits, or black or bloody stools Musculoskeletal ROS: negative for back pain, neck pain, or joint pain or swelling except for current problem Neurological ROS: negative for TIA or stoke symptoms Skin: no rashes Medications/Allergies Home Medications Medication Instructions Recorded Confirmed Last Taken Type hydrocortisone 2.5 % topical cream 1 applic TOPICAL BID PRN 03/21/19 02/13/21 04/04/19 History oxybutynin chloride 5 mg tablet 5 mg PO BEDTIME tab 03/21/19 02/17/21 02/16/21 History levothyroxine [Synthroid] 125 mcg PO DAILY 04/11/19 02/17/21 02/16/21 History aspirin 81 mg PO DAILY #30 tab 07/14/19 02/13/21 02/09/21 Rx liothyronine 5 mcg tablet 10 mcg PO DAILY 07/20/19 02/17/21 02/16/21 History Vitamin D3 1 tab PO DAILY 02/06/20 02/17/21 02/16/21 History acetaminophen 1,000 mg PO Q4H PRN 02/06/20 02/13/21 02/05/20 History Articulating AFO #1 ea 04/22/20 01/28/21 Unknown Rx nitroglycerin 0.4 mg sublingual 0.4 mg SUBLINGUAL Q5M PRN #25 tab 06/12/20 02/13/21 Unknown Rx tablet ketoconazole 2 % topical cream 1 applic TOPICAL BID #30 g 06/27/20 02/13/21 12/16/20 20:30 Rx mometasone 0.1 % topical solution 1 applic TOPICAL DAILY PRN #60 ml 06/27/20 02/13/21 Unknown Rx MARK BRACE #1 ea NS 08/01/20 01/28/21 Unknown Rx atorvastatin 40 mg tablet 40 mg PO BEDTIME #90 tab 08/22/20 02/17/21 02/16/21 Rx carvedilol 12.5 mg tablet 25 mg PO BID tab 10/14/20 02/17/21 02/17/21 04:30 History furosemide 40 mg tablet 40 mg PO BID #180 tab 10/14/20 02/17/21 02/16/21 Rx potassium chloride 20 mEq 20 meq PO BID #180 tab 10/14/20 02/17/21 02/16/21 Rx tablet,extended release famotidine 40 mg tablet 40 mg PO DAILY 10/24/20 02/17/21 02/16/21 History prednisone 5 mg tablet See Rx Instructions PO DAILY #90 11/06/20 02/17/21 02/16/21 Rx tab isosorbide mononitrate 30 mg PO DAILY 12/16/20 02/17/21 02/16/21 History lisinopril 5 mg tablet 5 mg PO DAILY #180 tab 12/24/20 02/17/21 02/16/21 Rx gabapentin 300 mg capsule 300 mg PO TID #90 cap 01/28/21 02/17/21 02/16/21 Rx leflunomide 20 mg tablet 20 mg PO DAILY #30 tab 01/28/21 02/13/21 02/10/21 Rx omeprazole 40 mg capsule,delayed 40 mg PO DAILY #90 cap 01/28/21 02/17/21 02/16/21 Rx release prednisone 2.5 mg tablet 5 mg PO DAILY #60 tab 01/28/21 02/17/21 02/16/21 Rx tocilizumab 162 mg/0.9 mL 162 mg SUBCUT .Q7days #4 ml 01/28/21 02/17/21 02/14/21 Rx subcutaneous syringe diclofenac sodium 4 g TOPICAL QID PRN 02/13/21 02/13/21 Unknown History Allergies Allergy/AdvReac Type Severity Reaction Status Date / Time adhesive tape Allergy ALGY-Rash Verified 02/13/21 11:28 metoclopramide [From Reglan] Allergy Unknown Verified 02/13/21 11:28 morphine Allergy ALGY-Hives Verified 02/13/21 11:28 tamsulosin [From Flomax] Allergy ADR/ALGY-Hy Verified 02/13/21 11:28 potension zolpidem [From Ambien] Allergy Unknown Verified 02/13/21 11:28 paper tape Allergy tears skin Uncoded 01/28/21 14:18 off PFSH Acute PFSH: Medical History Carotid artery disease Cervical postlaminectomy syndrome CHF (congestive heart failure), NYHA class III Chronic low back pain Chronic venous insufficiency COPD (chronic obstructive pulmonary disease) DJD (degenerative joint disease) Gastroparesis GERD (gastroesophageal reflux disease) 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, greater than 8 weeks H/O prostate cancer High risk medication use History of nonmelanoma skin cancer History of TIA (transient ischemic attack) HTN (hypertension) Hx of cataract Hyperlipidemia Hypothyroid Immunization counseling Immunosuppression Inflammatory arthritis FUAD (obstructive sleep apnea) Osteoarthritis, generalized Positive CORBY (antinuclear antibody) EDUARDO was negative in 2013 Radiation cystitis Seronegative rheumatoid arthritis Seronegative rheumatoid arthritis of both hands Shortness of breath Undifferentiated connective tissue disease Surgical History H/O colonoscopy 2011 H/O esophagogastroduodenoscopy 2012 H/O neck surgery x 2 H/O total knee replacement right and left History of abdominal aortic aneurysm (AAA) repair History of back surgery x 7 History of cardiac cath 7 years ago nonobstructive, negative stress test 1 year ago 2019 History of hip surgery RIGHT 04/11/19 History of tonsillectomy and adenoidectomy History of total left hip arthroplasty Hx of appendectomy Hx of cholecystectomy 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 Family History Mother Bleeding disorder Other CAD (coronary artery disease) Cancer Stroke Denies family history of Anesthesia complication Social History Alcohol intake: never Household members: spouse Marital status: Current occupational status: retired History of recent travel: No Vitals/I&O/Wt Last Vital Signs Temp 98.3 F 02/17/21 06:08 Pulse 65 02/17/21 06:08 Resp 18 02/17/21 06:08 BP 165/115 02/17/21 06:08 Pulse Ox 95 02/17/21 06:08 Physical Exam Narrative: EXAM NARRATIVE: CONSTITUTIONAL: The patient is a normal appearing [] in no apparent distress. GENERAL: Patient in no acute distress. CARDIAC: Regular rate and rhythm. CHEST: Normal inspiratory effort, normal respiratory rate. ABDOMEN: Soft and nontender. SKIN: Clear, warm and intact. NEURO?PSYCH: The patient is alert and oriented to person, place and time. Sensorv /SILT Motor StrengthShoulder abduction C5 5/5Wrist extension C6 5/5Elbow extension C7 5/5Hand Apprentice Funeral Director C8 5/5Finger abduction T15/5 Radial/ Ulnar/ Median n intact LowerSensory (SILT)Motor StrengthHin flexion L2/3Ant/inner thigh 5/5Hip adduction L2/3 5/5Knee extension L4 Lat thigh, 5/5Toe dorsiflexion L5 5/5Ankle dorsiflexion L5/ O44Zcsnand flexion S1 5/5 DTRBleeps 2+Triceps 2+Brachioradialis 2+Patellar 2+Achilles 2+ MUSCULOSKELETAL: [] UPPEREXTREMITIES: The patient had full active ROM in fingers, wrist, elbow, and shoulder. The patient demonstrated ability to fully flex/extend/abduct/adduct fingers, make ok sign, cross 2nd/3rd digits, extend 1st digit fully.. Radial pulse 2+, CR<2 seconds. LOWER EXTREMITIES: Pt has full, active ROM of toes, ankle, knee, and hip. Dorsalis pedis/posterior tibialis pulses 2+, CR<2 seconds. SPINE: Skin warm, dry, intact. Data : 02/13/21 12:05 02/13/21 12:05 A&P Assessment and plan (1) Failed back surgical syndrome: Status: Acute Attestations Medical Necessity Statement*: failed conservative tx Coding Level of Care Code Acute [place] for [facility] Fwd Diagnoses Failed back surgical syndrome M96.1
[2021-02-17] MEDS: vancomycin 1,000 MG SDV 1000 MG XX ×3 (08:21→19:41)
[2021-02-17] MEDS: heparin, porcine 1,000 unit/mL INJ 10 mL 10000 UNIT IRRIGATION (08:21)
--- NOTE | 2021-02-17 08:24 | SUR.OPER ---
Family Notified Of Patient's Status Via Phone.
[2021-02-17 09:48] LABS: Hematocrit 27.7 % (42.0-52.0); Hemoglobin 8.9 g/dL (11.7-16.6)
--- NOTE | 2021-02-17 10:15 | SUR.OPER ---
Family Notified Of Patient's Status Via Phone.
--- NOTE | 2021-02-17 11:43 | PM.OP ---
Operative Report Date of procedure: February 17, 2021 Pre-op Diagnosis: ddd Lumbar spine, Chronic Back pain; failed back surgery Post-op diagnosis: same Procedure Done: 1. T9- S1/ pelvis fusion 2. T9- S1 instrumentation 3. lumbo pelvic fixation/instrumentation 4. computer navigation/ stereotactic spine 5. use of allograft 6. Complex revision of scar 8 inches by 1/2 inch 7. bone marrow aspirate from right iliac crest 8. Removal of deep hardware from spine/ placement of new hardware Surgeon: Enrike Delarosa Corporate Recycling Manager: Cortes Eller Corporate Recycling Manager: The plant attendant or assistant operator, Cortes Eller, PAC was needed for his expertise placing screws. He was important and necessary throughout the procedure to complete in a safe and timely manner. He assisted with patient positioning prepping and draping tissue retraction suctioning of the operative field protection of the dural sac and tissue closure Anesthesia: General Estimated blood loss (mL): 900 Condition: stable Procedure: 1. T9- S1/ pelvis fusion 2. T9- S1 instrumentation 3. lumbo pelvic fixation/instrumentation 4. computer navigation/ stereotactic spine 5. use of allograft 6. Complex revision of scar 8 inches by 1/2 inch 7. bone marrow aspirate from right iliac crest 8. Removal of deep hardware from spine/ placement of new hardware Patient was brought to the operative suite after undergoing anesthesia was placed in the prone position. All areas impingement were well-padded. Patient was then prepped and draped in normal sterile fashion. Skin incision was made using previous fusion. The scarring which was inverted was then ellipsed out it was approximately 8 inches by half inch. This was ellipsed out approximately an inch deep. Next the thoracolumbar fascia was split there is significant amount of scar tissue. Retractors were placed. The subperiosteal dissection was made above and below the previous hardware. The L1-L4 screws were identified. The screws were removed this done by removing the caps followed by the rods followed by the screws and the connecting rods. Once all these were removed then subperiosteal dissection was made out to the TPs. Subperiosteal dissection was made from T9 down to S1 this subperiosteal dissection was made out to the transverse processes of T9-L5. And then the sacral ala was exposed. Down to the S2 level. After the hardware is removed attention was then brought to removing the bone marrow aspirate. The [employer] bone marrow aspirate system was used. An incision was made through the fascia and the [employer] sharp needle was inserted into the iliac crest on the right side. The blood was aspirated blunt instrument was then inserted and the kit was then inserted deeper. And then the aspiration needle was inserted and then 20 cc of bone marrow aspirate was brought out from the right iliac crest. He was brought to placing the pins in the right iliac crest. The pins were placed into the right iliac crest and then the fiducial for the computer navigation was inserted. C-arm was brought in and then the information was all linked into the computer to the patient. Next attention was brought to placing screws. This required two spins. The computer navigation was then used to place these pedicle screws. Is done by using the gearshift linked to the computer navigation. Attention was brought to placing the right iliac crest screw first. This was done by finding the ST landmark and placing the gearshift through the ala into the iliac crest. 80 mm 8.5 screws placed this was repeated on the left side. The left iliac screw was placed in the same manner. And this again was an 8.580 mm screw. This was done by using the gearshift followed by the ball probe followed by placing the screw. Next attention was brought to placing the S1 screws. This was done using again the gearshift followed by the ball probe followed by the screw length to the computer navigation. Screws were then placed at L4 L3 and L2 using the previous screw holes. The L1 screws were redirected because they are breaking through the endplate. This is done using computer navigation as well and then T12 T11 T10 and T9 screws were placed. It appeared that there was ligamentous instability at T1011 previous dissection looked like it had been performed at this level. That is why elected to go up to T9. Once all the screws were placed attention was then brought to placing the rods. Rods were measured bent and then attached all the screws from T9 down to the pelvis. This was done bilaterally locking of the end caps and torquing them down. Next attention is brought to decorticating the lamina of T9 out to the TPs all the way down to the sacral ala bone graft was packed along the lamina and the lateral gutters all the way down. This was done bilaterally. Next attention was brought to placing vancomycin powder and deep drain after irrigating. The thoracolumbar fascia scar was undermined to in order to allow closure of the skin once the muscle and thoracolumbar fascia was undermined it was closed with 0 Vicryl and then the 8 by half inch area was closed with Vicryl and a tension releasing stitch near far far near trauma stitch with nylon. And the rest the wound was closed with 0 Vicryl 2-0 Vicryl and nylon suture. Silverlon dressing was placed and patient was transferred to the PACU after the fiducials were removed as well.
[2021-02-17 12:38] LABS: Hematocrit 25.5 % (42.0-52.0)
[2021-02-17] MEDS: HYDROmorphone 1 mg/mL INJ 1 mL 0.5 MG IVP ×4 (12:40→13:22)
--- NOTE | 2021-02-17 13:10 | PM.CONSULT ---
Providers/Reason For Consult Consulting Physician/Specialty*: Keanu Valadez MD, hospitalist Reason for Consult*: Medical management Attending Physician: Enrike Delarosa DO Primary Care Provider: Marsha Turner MD History of Present Illness History of Present Illness Kojo Marinelli is a 75 year old male with history of chronic back pain and failed back syndrome who presented today for surgery. He underwent T9-S1 revision/pelvic fusion. Intraoperatively he did well. Estimated blood loss Per anesthesia at approximately 1500 cc. I am evaluating him in the postoperative recovery unit. Currently he is complaining of some back pain, but still under some effects of anesthesia. Cannot give any adequate history regarding his chronic problems currently, and many of these are reviewed from his old records. Most significantly, on review are a past medical history of anemia with a hemoglobin baseline slightly over 10. There was also some question of whether he had coronary disease, but an angiogram done in December 2020 demonstrated no atherosclerotic disease. Previous echo demonstrated an EF of 70% and 1/4 diastolic dysfunction. Review of Systems General: Reports: ROS unobtainable due to mental status (Currently still under influence of anesthetic) Meds/Allergies Home Medications and Allergies Home Medications Medication Instructions Recorded Confirmed Last Taken Type hydrocortisone 2.5 % topical cream 1 applic TOPICAL BID PRN 03/21/19 02/13/21 04/04/19 History oxybutynin chloride 5 mg tablet 5 mg PO BEDTIME tab 03/21/19 02/17/21 02/16/21 History levothyroxine [Synthroid] 125 mcg PO DAILY 04/11/19 02/17/21 02/16/21 History aspirin 81 mg PO DAILY #30 tab 07/14/19 02/13/21 02/09/21 Rx liothyronine 5 mcg tablet 10 mcg PO DAILY 07/20/19 02/17/21 02/16/21 History Vitamin D3 1 tab PO DAILY 02/06/20 02/17/21 02/16/21 History acetaminophen 1,000 mg PO Q4H PRN 02/06/20 02/13/21 02/05/20 History Articulating AFO #1 ea 04/22/20 01/28/21 Unknown Rx nitroglycerin 0.4 mg sublingual 0.4 mg SUBLINGUAL Q5M PRN #25 tab 06/12/20 02/13/21 Unknown Rx tablet ketoconazole 2 % topical cream 1 applic TOPICAL BID #30 g 06/27/20 02/13/21 12/16/20 20:30 Rx mometasone 0.1 % topical solution 1 applic TOPICAL DAILY PRN #60 ml 06/27/20 02/13/21 Unknown Rx MARK BRACE #1 ea NS 08/01/20 01/28/21 Unknown Rx atorvastatin 40 mg tablet 40 mg PO BEDTIME #90 tab 08/22/20 02/17/21 02/16/21 Rx carvedilol 12.5 mg tablet 25 mg PO BID tab 10/14/20 02/17/21 02/17/21 04:30 History furosemide 40 mg tablet 40 mg PO BID #180 tab 10/14/20 02/17/21 02/16/21 Rx potassium chloride 20 mEq 20 meq PO BID #180 tab 10/14/20 02/17/21 02/16/21 Rx tablet,extended release famotidine 40 mg tablet 40 mg PO DAILY 10/24/20 02/17/21 02/16/21 History prednisone 5 mg tablet See Rx Instructions PO DAILY #90 11/06/20 02/17/21 02/16/21 Rx tab isosorbide mononitrate 30 mg PO DAILY 12/16/20 02/17/21 02/16/21 History lisinopril 5 mg tablet 5 mg PO DAILY #180 tab 12/24/20 02/17/21 02/16/21 Rx gabapentin 300 mg capsule 300 mg PO TID #90 cap 01/28/21 02/17/21 02/16/21 Rx leflunomide 20 mg tablet 20 mg PO DAILY #30 tab 01/28/21 02/13/21 02/10/21 Rx omeprazole 40 mg capsule,delayed 40 mg PO DAILY #90 cap 01/28/21 02/17/21 02/16/21 Rx release prednisone 2.5 mg tablet 5 mg PO DAILY #60 tab 01/28/21 02/17/21 02/16/21 Rx tocilizumab 162 mg/0.9 mL 162 mg SUBCUT .Q7days #4 ml 01/28/21 02/17/21 02/14/21 Rx subcutaneous syringe diclofenac sodium 4 g TOPICAL QID PRN 02/13/21 02/13/21 Unknown History Allergies Allergy/AdvReac Type Severity Reaction Status Date / Time adhesive tape Allergy ALGY-Rash Verified 02/13/21 11:28 metoclopramide [From Reglan] Allergy Unknown Verified 02/13/21 11:28 morphine Allergy ALGY-Hives Verified 02/13/21 11:28 tamsulosin [From Flomax] Allergy ADR/ALGY-Hy Verified 02/13/21 11:28 potension zolpidem [From Ambien] Allergy Unknown Verified 02/13/21 11:28 paper tape Allergy tears skin Uncoded 01/28/21 14:18 off Current Medications Current Medications Generic Name Dose Route Start Last Admin Trade Name Freq PRN Reason Stop Dose Admin Hydromorphone HCl 0.5 mg 02/17/21 07:24 02/17/21 12:50 Hydromorphone 1 Mg/Ml Inj 1 Ml IVP 02/18/21 07:24 0.5 mg Q10M PRN Administration Pain level 7-10 PACU Phase I Sodium Chloride 1,000 mls @ 30 mls/hr 02/17/21 06:00 02/17/21 06:43 Sodium Chloride 0.9% IV 02/18/21 05:59 30 mls/hr .Q24H FATIMAH Administration PFSH Acute PFSH: Medical History (Updated 02/17/21 @ 13:33 by Keanu Valadez MD) Anemia Carotid artery disease Cervical postlaminectomy syndrome CHF (congestive heart failure), NYHA class III Chronic low back pain Chronic venous insufficiency COPD (chronic obstructive pulmonary disease) DJD (degenerative joint disease) Gastroparesis GERD (gastroesophageal reflux disease) 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, greater than 8 weeks H/O prostate cancer High risk medication use History of nonmelanoma skin cancer History of TIA (transient ischemic attack) HTN (hypertension) Hx of cataract Hyperlipidemia Hypothyroid Immunization counseling Immunosuppression Inflammatory arthritis FUAD (obstructive sleep apnea) Osteoarthritis, generalized Positive CORBY (antinuclear antibody) EDUARDO was negative in 2013 Radiation cystitis Seronegative rheumatoid arthritis Seronegative rheumatoid arthritis of both hands Shortness of breath Undifferentiated connective tissue disease Surgical History H/O colonoscopy 2011 H/O esophagogastroduodenoscopy 2012 H/O neck surgery x 2 H/O total knee replacement right and left History of abdominal aortic aneurysm (AAA) repair History of back surgery x 7 History of cardiac cath 7 years ago nonobstructive, negative stress test 1 year ago 2019 History of hip surgery RIGHT 04/11/19 History of tonsillectomy and adenoidectomy History of total left hip arthroplasty Hx of appendectomy Hx of cholecystectomy 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 Family History Mother Bleeding disorder Other CAD (coronary artery disease) Cancer Stroke Denies family history of Anesthesia complication Social History Alcohol intake: never Household members: spouse Marital status: Current occupational status: retired History of recent travel: No Vitals/I&O/Wt Last Vital Signs Temp 97.4 F L 02/17/21 12:34 Pulse 76 02/17/21 13:05 Resp 24 H 02/17/21 13:05 BP 90/78 02/17/21 13:05 Pulse Ox 97 02/17/21 13:05 02/16/21 02/17/21 02/17/21 22:59 06:59 14:59 Intake Total 160 / 160 Output Total 1650 / 1650 Balance -1490 / -1490 Physical Exam Narrative: EXAM NARRATIVE: General exam is a white male, whom are open eyes to stimuli and relate pain but has difficulty focusing on anything else currently. HEENT: Pupils equally round. Oropharynx with no obvious abnormality. Oxime mask on currently. Neck is supple no lymphadenopathy or thyromegaly. Cardiovascular: Regular rate and rhythm without murmur, no S3 or S4 Lungs clear no wheezing or crackles Abdomen is soft, obese. A few bowel sounds are heard. Binder noted. exam Velazquez Back not examined, drain present Extremities no cyanosis clubbing or edema. I am having difficulty getting him to cooperate with exam but he certainly is able to dorsiflex on the right without difficulty spontaneously. Left side I could not get the patient to spontaneously dorsiflex Skin no rash Neuro: See above Urinary Catheter Management^: F: Cath Placed During This Visit: yes Urinary Catheter Date of Insertion: 02/17/21 Urinary Catheter Time of Insertion: 07:40 Data Other Data: Other data: Recent Covid PCR negative Angiogram December 2020 no atherosclerotic disease. Echocardiogram June 2020 demonstrated EF of 70% and 1/4 diastolic dysfunction A&P Assessment and plan (1) Failed back surgical syndrome: Underwent lumbar sacral fusion today, revision and instrumentation Management per orthopedic spine surgery control Status: Acute (2) Anemia: Significant blood loss with surgery. Transfuse if hemoglobin less than 7, unless symptomatic Last hemoglobin 8.0, total blood loss approximately 1500 cc Repeat hemoglobin tomorrow Status: Acute (3) Shortness of breath: Extensive cardiac work-up done prior to surgery including negative angiogram. EF is preserved and no major valvular abnormalities. Does have 1/4 diastolic dysfunction. Status: Acute (4) Seronegative rheumatoid arthritis of both hands: Currently on prednisone, Arava, leflunomide Status: Acute (5) HTN (hypertension): Continue BIGG inhibitor Status: Acute Qualifiers: Hypertension type: essential hypertension Qualified Code(s): I10 - Essential (primary) hypertension (6) Hyperglycemia: Hemoglobin A1c earlier this year was normal, but patient has had additional elevation in glucose on BMPs lately. Repeat hemoglobin A1c. Status: Acute Additional A&P Information Lovenox for DVT prophylaxis per primary Consult Attestations Medical Necessity Statement: As per primary Time Spent in Patient Care: Greater than 35 minutes Coding Level of Care Code Acute Organic Search Lead for [facility] Fwd Diagnoses Failed back surgical syndrome M96.1 Anemia D64.9 Shortness of breath R06.02 Seronegative rheumatoid arthritis of both hands M06.041; M06.042 HTN (hypertension) I10 Hypertension type: essential hypertension Hyperglycemia R73.9
[2021-02-17] MEDS: fentaNYL 50 mcg/mL INJ 2mL IVP ×2 (13:38→13:43)
--- NOTE | 2021-02-17 14:29 | ANE.PACU2 ---
Inpatient post-anesthesia follow up: Airway intact: Yes Vital signs: Temperature 97.6 F Pulse Rate 76 Respiratory Rate 18 Blood Pressure 140/78 Pulse Oximetry 94 Oxygen Delivery Me thod Room Air Oxygen Flow Rate 8 Fraction of Inspir ed Oxygen Hydration adequate: Yes Nausea and vomiting: No Pain level: 2 Mental status: Baseline
[2021-02-17] MEDS: ketorolac 30 mg/mL INJ IVP ×2 (14:51→21:55)
[2021-02-17] MEDS: lactated ringers 1,000 ML 90 ML IV (15:13)
[2021-02-17] MEDS: HYDROcodone-acetaminophen 5-325 mg Tablet PO ×2 (15:30→20:29)
[2021-02-17] MEDS: gabapentin 300 mg Capsule PO ×2 (15:34→20:29)
[2021-02-17] MEDS: docusate sodium 100 mg Capsule PO (16:49)
[2021-02-17] MEDS: potassium chloride ER 20 mEq Tablet PO (16:49)
[2021-02-17] MEDS: FUROsemide 40 mg Tablet PO (16:49)
[2021-02-17] MEDS: ondansetron 2 mg/ML SDV 2 mL 4 MG IVP (17:09)
[2021-02-17 20:15] LABS: Estmated Average Glucose 100; Hemoglobin A1C 5.1 % (4.0-6.0)
[2021-02-17] MEDS: atorvastatin 40 mg Tablet PO (20:29)
[2021-02-17] MEDS: oxybutynin 5 mg Tablet PO (20:29)
[2021-02-17] MEDS: carvedilol 25 mg Tablet PO (20:30)
[2021-02-18] VITALS (18 sets, daily range): BP systolic 105–163; BP diastolic 58–88; PULSE 80–98; RESP 14–19; TEMP 36.7–37.6; O2SAT 90–95
[2021-02-18] MEDS: lactated ringers 1,000 ML 90 ML IV (02:11)
[2021-02-18] MEDS: enoxaparin 40 mg/0.4 mL Syringe SUBCUT (06:25)
--- NOTE | 2021-02-18 07:28 | PM.PN ---
Subjective Subjective: Interval history: POD 1 Patient resting comfortably. Complains of being lightheaded, dizzy. Denies any chest pain or shortness of breath. Denies any headaches. Vitals/I&O/Wt Last Vital Signs Temp 99.6 F 02/18/21 04:00 Pulse 98 02/18/21 04:00 Resp 17 02/18/21 04:00 BP 136/78 02/18/21 04:00 Pulse Ox 92 02/18/21 04:00 02/17/21 02/18/21 02/18/21 22:59 06:59 14:59 Intake Total 300 / 460 1767 / 2227 Output Total 230 / 2055 1700 / 3755 Balance 70 / -1595 67 / -1528 Physical Exam Narrative: EXAM NARRATIVE: Patient presents alert and oriented x3 with a good general appearance normal normal affect. Mild tenderness around the incisional site with the incision appear to be healing nicely. Hemovac drain intact with an output around 300 mL. Hemovac was disconnected through the night when the patient rolled over. 5/5 motor strength both lower extremities with negative straight leg raise bilaterally. Calves are supple no medial thigh tenderness. Pulses are 2+ at the dorsalis pedis and posterior tibial region. Good capillary refill throughout normal sensation light touch both lower extremities. 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 Patient is reporting being lightheaded, dizzy and may need a unit of blood. Will defer to the medical team for management. We will continue the Hemovac drain was taken to gravity physical therapy work on mobilization. Due to his prostate cancer history we will leave the Velazquez catheter in to allow him to begin mobilizing. Continue warm form abdominal binder for compression over the incisional area. 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
[2021-02-18 08:44] LABS: Basophils % 0.1 %; Hematocrit 21.6 % (42.0-52.0); Hemoglobin 6.8 g/dL (11.7-16.6); Lymphocytes # 0.6 10^3/uL (0.8-4.8); Lymphocytes % 6.6 %; Mean Corpuscular HGB Conc 31.5 g/dL (30.0-36.0); Mean Corpuscular Hemoglobin 31.2 pg (28.0-34.0); Mean Corpuscular Volume 99.1 fl (80-94); Mean Platelet Volume 9.5 fL (7.4-10.4); Monocytes # 0.8 10^3/uL (0.2-0.9); Monocytes % 9.4 %; Neutrophils # 7.35 10^3/uL (1.8-7.7); Neutrophils % 83.3 %; Nucleated Red Blood Cells % 0 %; Platelet Count 161 10^3/cmm (130-400); Red Blood Count 2.18 10^6/uL (4.1-5.3); White Blood Count 8.8 10^3/uL (4.0-10.0)
[2021-02-18 09:06] LABS: Anion Gap 17.4 (5-19); Blood Urea Nitrogen 21 mg/dL (8-23); Calcium 7.6 mg/dL (8.5-10.5); Carbon Dioxide 21 mmol/L (22-29); Chloride 105 mmol/L (98-107); Glucose 107 mg/dL (65-115); Osmolality Calculated 291 mOsm/kg (285-295); Potassium 4.4 mmol/L (3.5-5.1); Sodium 139 mmol/L (136-145)
[2021-02-18] MEDS: aspirin 81 mg EC Tablet PO (09:20)
[2021-02-18] MEDS: docusate sodium 100 mg Capsule PO ×2 (09:20→17:13)
[2021-02-18] MEDS: levothyroxine 125 mcg Tablet PO (09:20)
[2021-02-18] MEDS: potassium chloride ER 20 mEq Tablet PO ×2 (09:20→17:13)
[2021-02-18] MEDS: famotidine 20 mg Tablet 40 MG PO (09:20)
[2021-02-18] MEDS: isosorbide mononitrate ER 30 mg Tablet PO (09:20)
[2021-02-18] MEDS: predniSONE 5 mg Tablet PO (09:20)
[2021-02-18] MEDS: gabapentin 300 mg Capsule PO ×3 (09:20→21:22)
[2021-02-18] MEDS: lisinopril 5 mg Tablet PO (09:21)
[2021-02-18] MEDS: HYDROcodone-acetaminophen 5-325 mg Tablet PO ×2 (09:21→13:51)
[2021-02-18] MEDS: pantoprazole DR 40 mg Tablet PO (09:21)
[2021-02-18] MEDS: carvedilol 25 mg Tablet PO ×2 (09:26→21:22)
[2021-02-18] MEDS: FUROsemide 40 mg Tablet PO ×2 (09:26→15:44)
[2021-02-18] MEDS: sodium chloride 0.9% (100 ml) 100 ML 50 ML ×2 (10:53→18:08)
--- NOTE | 2021-02-18 10:53 | PM.PN ---
Subjective Subjective: Interval history: Kojo felt dizzy and lightheaded, when upright. Nursing reports she has had quite a bit of out of his drain Medications: Reviewed: Yes Vitals/I&O/Wt Last Vital Signs Temp 98.6 F 02/18/21 10:47 Pulse 88 02/18/21 10:47 Resp 19 H 02/18/21 10:47 BP 130/77 02/18/21 10:47 Pulse Ox 92 02/18/21 10:47 02/17/21 02/18/21 02/18/21 22:59 06:59 14:59 Intake Total 300 / 460 1767 / 2227 120 / 120 Output Total 230 / 2055 1700 / 3755 300 / 300 Balance 70 / -1595 67 / -1528 -180 / -180 Physical Exam Narrative: EXAM NARRATIVE: General exam is a white male, conversant reporting some dizziness when he sits up Neck is supple no lymphadenopathy or thyromegaly. Cardiovascular: Regular rate and rhythm without murmur, no S3 or S4 Lungs clear no wheezing or crackles Abdomen is soft, obese. A few bowel sounds are heard. Binder noted. exam Velazquez Back not examined, drain present Extremities no cyanosis clubbing or edema. Urinary Catheter Management^: F: Cath Placed During This Visit: yes Reason for Continuing Indwelling Catheter: Perioperative Use in Selected Surgeries Urinary Catheter Date of Insertion: 02/17/21 Urinary Catheter Time of Insertion: 07:40 Data : 02/18/21 08:31 02/18/21 08:31 A&P Assessment and plan (1) Failed back surgical syndrome: Postop day #1 status post lumbar sacral fusion , revision and instrumentation Management per orthopedic spine surgery control Status: Acute (2) Anemia: Significant blood loss with surgery. Additional 830 out of the drain Hemoglobin less than 7. Transfusing 1 unit. Hemoglobin 1 hour after transfusion Hold Lovenox for now, SCDs for DVT prophylaxis Status: Acute (3) Shortness of breath: Extensive cardiac work-up done prior to surgery including negative angiogram. EF is preserved and no major valvular abnormalities. Does have 1/4 diastolic dysfunction. Status: Acute (4) Seronegative rheumatoid arthritis of both hands: Currently on prednisone, Arava, leflunomide Status: Acute (5) HTN (hypertension): Continue BIGG inhibitor Status: Acute Qualifiers: Hypertension type: essential hypertension Qualified Code(s): I10 - Essential (primary) hypertension (6) Hyperglycemia: Hemoglobin A1c earlier this year was normal, but patient has had additional elevation in glucose on BMPs lately. Repeat hemoglobin A1c 5.1 Status: Acute Additional A&P Information SCDs for DVT prophylaxis per primary. Lovenox on hold secondary to significant anemia, high amount of drain output through the last 24 hours Attestations Medical Necessity Statement*: As per primary Coding Level of Care Code Acute Credit Verification Clerk for [facility] Fwd Diagnoses Failed back surgical syndrome M96.1 Anemia D64.9 Shortness of breath R06.02 Seronegative rheumatoid arthritis of both hands M06.041; M06.042 HTN (hypertension) I10 Hypertension type: essential hypertension Hyperglycemia R73.9
--- NOTE | 2021-02-18 11:56 | PC.CHAP ---
Pastoral Care Encounter/Spiritual Assessment Type of Contact [] Declined paper tube cutter visit [] Patient/Family/Request visit [] Outpatient visit [] Follow-up visit [] Physician referral [] Code/Alert [x] Routine visit [] Staff referral [] Actively dying [] Patient sleeping [] Family support [] [] Out of room [] Palliative care [] [] Receiving care in room [] Pre-surgical visit [] Trauma [] Long length of stay [] ICU visit [] Other: Relational/Emotional Strength [x] Patient feels connected with others/family/visitors/staff [] Distress [] Loneliness/isolation [] Abandonment Spirituality of Patient [x] Person of Nini [x] Attends Mandaen of their Nini [x] Believes in Prayer [x] Reads Bible or Jain materials [] There are Spiritual issues to be addressed Invasive Manager Interventions [x] Prayer [x] Active listening [x] Non-anxious presence [x] Spiritual/emotional support [] Crisis/trauma care [] Spiritual counseling [] Bereavement support [] Provided bereavement packet [] Provided Bible/devotional materials [] Provided toy/stuffed animal, coloring book to patient or family member [] Provided Communion [] Anointing/[place] [] Salvation [x] Completed spiritual assessment [] Other: Impact on Illness or Injury [] Angry [] Fearful [] Anxious [] Often cries [] Exhaustion [] Unable to work [] Unable to attend oriental orthodox [] Unable to walk/stand [] Unable to read [] Unable to drive [] Unable to eat/drink [] Unable to sleep [] Unable to be with family [] Patient intubated [] Other: Summary in Pt's room. They have been 57 years. 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 He is hoping to get out of the hospital tomorrow but he lost a lot of blood during surgery so he is unable to stand without being light headed. They are giving him blood to correct this issue. Time spent with patient 25m
[2021-02-18 16:10] LABS: Hematocrit 22.6 % (42.0-52.0); Hemoglobin 7.2 g/dL (11.7-16.6)
[2021-02-18] MEDS: atorvastatin 40 mg Tablet PO (21:22)
[2021-02-18] MEDS: oxybutynin 5 mg Tablet PO (21:22)
[2021-02-19] VITALS (12 sets, daily range): BP systolic 105–138; BP diastolic 63–93; PULSE 68–80; RESP 14–18; TEMP 36.6–37.1; O2SAT 90–95
[2021-02-19] MEDS: ketorolac 30 mg/mL INJ IVP ×2 (00:39→20:24)
[2021-02-19] MEDS: HYDROcodone-acetaminophen 5-325 mg Tablet PO ×3 (00:47→15:53)
[2021-02-19 01:47] LABS: Basophils % 0.6 %; Eosinophils % 0.2 %; Hematocrit 23.8 % (42.0-52.0); Hemoglobin 7.9 g/dL (11.7-16.6); Lymphocytes # 0.7 10^3/uL (0.8-4.8); Lymphocytes % 13.9 %; Mean Corpuscular HGB Conc 33.2 g/dL (30.0-36.0); Mean Corpuscular Hemoglobin 31.2 pg (28.0-34.0); Mean Corpuscular Volume 94.1 fl (80-94); Monocytes # 0.8 10^3/uL (0.2-0.9); Monocytes % 14.3 %; Neutrophils # 3.75 10^3/uL (1.8-7.7); Neutrophils % 70.6 %; Nucleated Red Blood Cells % 0 %; Platelet Count 129 10^3/cmm (130-400); Red Blood Count 2.53 10^6/uL (4.1-5.3); Red Cell Distribution Width 15.4 % (12.1-15.1); White Blood Count 5.3 10^3/uL (4.0-10.0)
[2021-02-19 02:08] LABS: Anion Gap 16.2 (5-19); Blood Urea Nitrogen 21 mg/dL (8-23); Calcium 7.6 mg/dL (8.5-10.5); Carbon Dioxide 23 mmol/L (22-29); Chloride 105 mmol/L (98-107); Glucose 97 mg/dL (65-115); Osmolality Calculated 293 mOsm/kg (285-295); Potassium 4.2 mmol/L (3.5-5.1); Sodium 140 mmol/L (136-145)
--- NOTE | 2021-02-19 06:48 | P.PN_ITS ---
Documented by User: SELVIN Mosquera 02/19/21 06:52 Subjective Subjective: Interval history: POD 2 Patient sitting up in bedside doing much better. Reports some mild dizziness. Mild back pain denies any headaches, shortness of breath, chest pain. Vitals/I&O/Wt Last Vital Signs Temp 98.7 F 02/19/21 04:00 Pulse 69 02/19/21 04:00 Resp 16 02/19/21 04:00 BP 116/66 02/19/21 04:00 Pulse Ox 93 02/19/21 04:00 02/18/21 02/18/21 02/19/21 14:59 22:59 06:59 Intake Total 630 / 630 1580 / 2210 480 / 2690 Output Total 950 / 950 1525 / 2475 2040 / 4515 Balance -320 / -320 55 / -265 -1560 / -1825 Physical Exam Narrative: EXAM NARRATIVE: Patient presents alert and oriented x3 with a good general appearance normal normal affect. Normal coordination normal stability. Mild tenderness around the incisional site. No signs of erythema or drainage. No signs of infection. Patient denies any fevers or chills. 5/5 motor strength both lower extremities with negative straight leg raise bilaterally. Calves are supple no medial thigh tenderness. Pulses are 2+ at the dorsalis pedis and posterior tibial region. Good capillary refill throughout normal sensation light touch both lower extremities. Urinary Catheter Management^: F: Cath Placed During This Visit: yes Reason for Continuing Indwelling Catheter: Perioperative Use in Selected Surgeries Urinary Catheter Date of Insertion: 02/17/21 Urinary Catheter Time of Insertion: 07:40 Data : 02/19/21 01:33 02/19/21 01:33 A&P Assessment and plan (1) Acute blood loss as cause of postoperative anemia: Week urged physical therapy to work on mobilization with a walker today. Give 0.4 mg of Flomax p.o. prior to discontinuing the Velazquez catheter today. We will discontinue the Hemovac. Work on laxative choice for helping with bowel movement. Continue mobilization in the halls. Continue incentive spirometry for pulmonary toilet. Hopeful discharge home tomorrow. 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
--- NOTE | 2021-02-19 08:06 | P.PN_ITS ---
Subjective Subjective: Interval history: No events overnight. Did not work with therapy yesterday. He is not sure if he is going to be dizzy upon arising today. Received 2 units of packed red blood cells yesterday. Feels some back pain, but overall controlled. Medications: Reviewed: Yes Vitals/I&O/Wt Last Vital Signs Temp 98.7 F 02/19/21 04:00 Pulse 69 02/19/21 04:00 Resp 16 02/19/21 04:00 BP 116/66 02/19/21 04:00 Pulse Ox 93 02/19/21 04:00 02/18/21 02/19/21 02/19/21 22:59 06:59 14:59 Intake Total 1580 / 2210 480 / 2690 Output Total 1525 / 2475 2040 / 4515 Balance 55 / -265 -1560 / -1825 Physical Exam Narrative: EXAM NARRATIVE: General exam is a white male, no obvious distress currently. Drain with 565 out yesterday Neck is supple no lymphadenopathy or thyromegaly. Cardiovascular: Regular rate and rhythm without murmur, no S3 or S4 Lungs clear no wheezing or crackles Abdomen is soft, obese. A few bowel sounds are heard. Binder noted. exam Velazquez Back not examined, drain present Extremities no cyanosis clubbing or edema. Urinary Catheter Management^: F: Cath Placed During This Visit: yes Reason for Continuing Indwelling Catheter: Perioperative Use in Selected S urgeries Urinary Catheter Date of Insertion: 02/17/21 Urinary Catheter Time of Insertion: 07:40 Data : 02/19/21 01:33 02/19/21 01:33 A&P Assessment and plan (1) Failed back surgical syndrome: Postop day #2 status post lumbar sacral fusion , revision and in strumentation Management per orthopedic spine surgery control Status: Acute (2) Anemia: Significant blood loss with surgery. Additional 830 out of the drain Hemoglobin less than 7. So transfused 2 units packed red blood cells yesterday. Hemoglobin now 7.9. Continue to hold Lovenox. SCDs for DVT prophylaxis. Will need to get up with therapy today to make sure he is not symptomatic Status: Acute (3) Shortness of breath: Extensive cardiac work-up done prior to surgery including negative angiogram. EF is preserved and no major valvular abnormalities. Does have 1/4 diastolic dysfunction. Status: Acute (4) Seronegative rheumatoid arthritis of both hands: Currently on prednisone, Arava, leflunomide Status: Acute (5) HTN (hypertension): Hold BIGG inhibitor today as blood pressure somewhat lower. Status: Acute Qualifiers: Hypertension type: essential hypertension Qualified Code(s): I10 - Essential (primary) hypertension (6) Hyperglycemia: Hemoglobin A1c earlier this year was normal, but patient has had additional elevation in glucose on BMPs lately. Repeat hemoglobin A1c 5.1 Status: Acute Additional A&P Information SCDs for DVT prophylaxis per primary. 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
--- NOTE | 2021-02-19 08:31 | PC.NURSE ---
patient's hgb is 7.[address] Valadez.
[2021-02-19] MEDS: pantoprazole DR 40 mg Tablet PO (09:06)
[2021-02-19] MEDS: predniSONE 5 mg Tablet PO (09:06)
[2021-02-19] MEDS: potassium chloride ER 20 mEq Tablet PO ×2 (09:06→17:15)
[2021-02-19] MEDS: isosorbide mononitrate ER 30 mg Tablet PO (09:07)
[2021-02-19] MEDS: aspirin 81 mg EC Tablet PO (09:07)
[2021-02-19] MEDS: famotidine 20 mg Tablet 40 MG PO (09:07)
[2021-02-19] MEDS: docusate sodium 100 mg Capsule PO ×2 (09:07→17:15)
[2021-02-19] MEDS: levothyroxine 125 mcg Tablet PO (09:08)
[2021-02-19] MEDS: gabapentin 300 mg Capsule PO ×3 (09:08→20:22)
[2021-02-19] MEDS: FUROsemide 40 mg Tablet PO ×2 (09:18→14:05)
[2021-02-19] MEDS: glycerin adult supp 1 EACH PR (09:18)
[2021-02-19] MEDS: magnesium citrate Btl 296 mL PO (09:25)
[2021-02-19] MEDS: carvedilol 25 mg Tablet PO ×2 (09:48→20:22)
--- NOTE | 2021-02-19 10:14 | PC.NURSE ---
Hemovac pulled at 0915.
[2021-02-19] MEDS: sodium chloride 0.9% (100 ml) 100 ML (11:13)
[2021-02-19] MEDS: liothyronine 5 mcg Tablet 10 MCG PO (14:05)
[2021-02-19 15:56] LABS: Hematocrit 28.1 % (42.0-52.0); Hemoglobin 9.1 g/dL (11.7-16.6)
[2021-02-19] MEDS: atorvastatin 40 mg Tablet PO (20:22)
[2021-02-19] MEDS: oxybutynin 5 mg Tablet PO (20:22)
[2021-02-20] MEDS: HYDROcodone-acetaminophen 5-325 mg Tablet PO ×2 (00:16→08:09)
[2021-02-20 02:40] LABS: Basophils # 0.1 10^3/uL (0.0-0.1); Basophils % 1.2 %; Eosinophils # 0.1 10^3/uL (0.0-0.8); Eosinophils % 1.2 %; Hematocrit 26.3 % (42.0-52.0); Hemoglobin 8.6 g/dL (11.7-16.6); Lymphocytes # 0.7 10^3/uL (0.8-4.8); Lymphocytes % 14.3 %; Mean Corpuscular HGB Conc 32.7 g/dL (30.0-36.0); Mean Corpuscular Hemoglobin 30.1 pg (28.0-34.0); Mean Platelet Volume 9.7 fL (7.4-10.4); Monocytes # 0.7 10^3/uL (0.2-0.9); Monocytes % 13.3 %; Neutrophils # 3.57 10^3/uL (1.8-7.7); Neutrophils % 69.6 %; Nucleated Red Blood Cells % 0 %; Platelet Count 133 10^3/cmm (130-400); Red Blood Count 2.86 10^6/uL (4.1-5.3); Red Cell Distribution Width 17.2 % (12.1-15.1); White Blood Count 5.1 10^3/uL (4.0-10.0)
[2021-02-20 04:00] VITALS: BP 118/69; PULSE 70; RESP 16; TEMP 36.6; O2SAT 91
[2021-02-20 07:17] VITALS: BP 138/81; PULSE 64; RESP 16; TEMP 36.9; O2SAT 91
--- NOTE | 2021-02-20 07:37 | P.PN_ITS ---
Documented by User: SELVIN Mosquera 02/20/21 07:40 Subjective Subjective: Interval history: POD 3 Patient sitting at the bedside feeling much better. Back pain has improved as well as leg strength. Denies any dizziness or headaches denies any lightheadedness shortness of breath, chest pain. He is wanting to go home. Vitals/I&O/Wt Last Vital Signs Temp 98.5 F 02/20/21 07:17 Pulse 64 02/20/21 07:17 Resp 16 02/20/21 07:17 BP 138/81 02/20/21 07:17 Pulse Ox 91 02/20/21 07:17 02/19/21 02/20/21 02/20/21 22:59 06:59 14:59 Intake Total 120 / 590 480 / 1070 Output Total 450 / 1025 1200 / 2225 Balance -330 / -435 -720 / -1155 Physical Exam Narrative: EXAM NARRATIVE: Patient presents alert and oriented x3 with a good general appearance normal normal affect. Normal coordination normal stability. Mild tenderness around the incisional site with the incision appears clean and dry No signs of erythema or drainage. No signs of infection. Patient denies any fevers or chills. 5/5 motor strength both lower extremities with negative straight leg raise bilaterally. Calves are supple no medial thigh tenderness. Pulses are 2+ at the dorsalis pedis and posterior tibial region. Good capillary refill throughout normal sensation light touch both lower extremities. Urinary Catheter Management^: F: Cath Placed During This Visit: yes, but has since been removed by the nurse Reason for Continuing Indwelling Catheter: Decision to DC Catheter Urinary Catheter Date of Insertion: 02/17/21 Urinary Catheter Time of Insertion: 07:40 Date Urinary Catheter Removed: 02/19/21 Time Urinary Catheter Discontinued: 09:52 Data : 02/20/21 02:08 02/19/21 01:33 A&P Assessment and plan (1) Acute blood loss as cause of postoperative anemia: Have physical therapy evaluate and work with him this morning. We will work on discharge home later this morning early afternoon.-Follow-up in 1 week's time for a wound check in the office. He will call if he is having problems. Encouraged incentive spirometry at home for pulmonary toilet. Continue to mobilize with no bending lifting or twisting activities. Continues to walker at home which she has. 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 for [facility] Fwd Diagnoses Acute blood loss as cause of postoperative anemia D62 S/P lumbar fusion Z98.1 Failed back surgical syndrome M96.1 Encounter for postoperative care Z48.89 Documented by User: Enrike Delarosa DO 02/20/21 08:56 Physical Exam Urinary Catheter Management^: F: Cath Placed During This Visit: no Data : 02/20/21 02:08 02/19/21 01:33 A&P Assessment and plan (1) Encounter for postoperative care: Patient doing well we will plan on discharging today Status: Acute Coding Level of Care Code Acute Senior Database Programmer for g Fwd Diagnoses Acute blood loss as cause of postoperative anemia D62 S/P lumbar fusion Z98.1 Failed back surgical syndrome M96.1 Encounter for postoperative care Z48.89
[2021-02-20] MEDS: gabapentin 300 mg Capsule PO (08:08)
[2021-02-20] MEDS: aspirin 81 mg EC Tablet PO (08:08)
[2021-02-20] MEDS: pantoprazole DR 40 mg Tablet PO (08:08)
[2021-02-20] MEDS: famotidine 20 mg Tablet 40 MG PO (08:08)
[2021-02-20] MEDS: docusate sodium 100 mg Capsule PO (08:08)
[2021-02-20] MEDS: FUROsemide 40 mg Tablet PO (08:08)
[2021-02-20] MEDS: isosorbide mononitrate ER 30 mg Tablet PO (08:08)
[2021-02-20] MEDS: potassium chloride ER 20 mEq Tablet PO (08:08)
[2021-02-20] MEDS: carvedilol 25 mg Tablet PO (08:08)
[2021-02-20] MEDS: predniSONE 5 mg Tablet PO (08:08)
[2021-02-20] MEDS: levothyroxine 125 mcg Tablet PO (08:09)
--- NOTE | 2021-02-20 08:46 | PC.SOCIAL ---
IMM update IMM updated with patient. Verbalized an understanding. Copy Pg 2 provided. Initialled, dated, timed, and placed in chart.
--- NOTE | 2021-02-20 09:01 | PM.DCS ---
Discharge Providers Date of Admission: 02/17/21 12:16 Date of Discharge: February 20, 2021 Attending Provider at Admission: Enrike Delarosa DO Attending Provider at Discharge: Enrike Delarosa DO Primary Care Provider: Marsha Turner MD Diagnoses at Discharge Discharge Diagnosis (1) Encounter for postoperative care: Status: Acute Reason for Visit Reason for Visit: spinal fusion Hospital Course Hospital Course Patient made on 6 had a T10 to pelvis revision fusion. He will be discharged on 02/20/2021. He is in the hospital for pain control and anemia. At this point he is doing well. Physical Exam Urinary Catheter Management^: F: Cath Placed During This Visit: yes, but has since been removed by the nurse Reason for Continuing Indwelling Catheter: Decision to DC Catheter Urinary Catheter Date of Insertion: 02/17/21 Urinary Catheter Time of Insertion: 07:40 Date Urinary Catheter Removed: 02/19/21 Time Urinary Catheter Discontinued: 09:52 Discharge Data Data Completed and Pending: Completed Studies During Hospitalization Category Date Time Status XR lumbar spine 2 -3V* [id number] Routine Exams 02/17/21 Completed Labs from last 24 hours 02/20/21 02/19/21 02/17/21 02:08 15:18 06:38 WBC 5.1 RBC 2.86 L Hgb 8.6 L 9.1 L Hct 26.3 L 28.1 L MCV 92.0 MCH 30.1 MCHC 32.7 RDW 17.2 H Plt Count 133 MPV 9.7 Neut % (Auto) 69.6 Lymph % (Auto) 14.3 [place] % (Auto) 13.3 Eos % (Auto) 1.2 Baso % (Auto) 1.2 Neut # (Auto) 3.57 Lymph # (Auto) 0.7 L [place] # (Auto) 0.7 Eos # (Auto) 0.1 Baso # (Auto) 0.1 Nucleated RBC % (a uto) 0 Nucleated RBCs # 0.0 Blood Type A Positive Rho(D) Type Positive Antibody Screen Negative Crossmatch See Detail Vitals: Last Vital Signs Temp 98.5 F 02/20/21 07:17 Pulse 64 02/20/21 07:17 Resp 16 02/20/21 07:17 BP 138/81 02/20/21 07:17 Pulse Ox 91 02/20/21 07:17 Discharge Plan Discharge Patient Disposition: Home Condition: Stable Prescriptions: New hydrocodone-acetaminophen 5-325 mg tablet 1 - 2 tab PO .Q4-6H Qty: 40 RF: 0 Continued hydrocortisone 2.5 % cream 1 applic TOPICAL BID PRN (Reason: Itching) RF: 0 oxybutynin chloride 5 mg tablet 5 mg PO BEDTIME RF: 0 nitroglycerin [Nitrostat] 0.4 mg tablet, sublingual 0.4 mg SUBLINGUAL Q5M PRN (Reason: Chest Pain) Qty: 25 RF: 6 ketoconazole 2 % cream 1 applic topical BID Qty: 30 RF: 1 mometasone 0.1 % solution 1 applic topical DAILY PRN (Reason: skin irritation) Qty: 60 RF: 3 prednisone 5 mg tablet See Rx Instructions PO DAILY Qty: 90 RF: 2 famotidine 40 mg tablet 40 mg PO DAILY RF: 0 (DME) Articulating AFO See Rx Instructions .Route .MEDSUPPLY Qty: 1 RF: 0 (DME) MARK BRACE See Rx Instructions .Route .MEDSUPPLY Qty: 1 RF: 0 carvedilol 12.5 mg tablet 25 mg PO BID RF: 0 furosemide 40 mg tablet 40 mg PO BID Qty: 180 RF: 2 potassium chloride 20 mEq tablet extended release 20 meq PO BID Qty: 180 RF: 2 gabapentin 300 mg capsule 300 mg PO TID Qty: 90 RF: 4 leflunomide [Arava] 20 mg tablet 20 mg PO DAILY Qty: 30 RF: 4 omeprazole 40 mg capsule,delayed release(DR/EC) 40 mg PO DAILY Qty: 90 RF: 1 prednisone 2.5 mg tablet 5 mg PO DAILY Qty: 60 RF: 4 Actemra 162 mg/0.9 mL syringe 162 mg SUBCUT .Q7days Qty: 4 RF: 3 lisinopril 5 mg tablet 5 mg PO DAILY Qty: 180 RF: 3 atorvastatin 40 mg tablet 40 mg PO BEDTIME Qty: 90 RF: 3 aspirin 81 mg Tablet,Delayed Release (Dr/Ec) 81 mg PO DAILY Qty: 30 RF: 0 acetaminophen 500 mg Capsule 1,000 mg PO Q4H PRN (Reason: Pain) RF: 0 Vitamin D3 1 tab PO DAILY RF: 0 isosorbide mononitrate 30 mg tablet extended release 24 hr 30 mg PO DAILY RF: 0 diclofenac sodium 1 % gel 4 g TOPICAL QID PRN (Reason: Pain) RF: 0 levothyroxine [Synthroid] 137 mcg tablet 125 mcg PO DAILY RF: 0 liothyronine 5 mcg tablet 10 mcg PO DAILY RF: 0 Discharge Orders: Discharge Order (Routine); Ordered 02/20/21 Ordered By: Enrike Delarosa Discharge Diet: Advance as tolerated Discharge Activity: Limit activity as instructed Patient Instructions: Opioid Safety Activity Restrictions/Additional Instructions: Thank you for [facility] for your care! The following is a list of instructions, from your provider, to follow upon your discharge to ensure you have the optimal recovery from your recent injury orsurgery. Follow-up care is a rizzo part of your treatment and safety. Be sure to make and go to all appointments, and call your doctor if you are having problems. If you do not already have a follow-up appointment made, call Dr. Delarosa office in the next 1-3 days to make follow up appointment for [1] weeks at [phone]. It is also a good idea to know your test results and keep a list of the medicines you take. Medications will be prescribed for you at your provider's discretion. These medications are to be used as instructed; if they are taken more often that prescribed they will not be refilled early and in most cases will not be refilled at all. > When a refill is needed,you should contact sameera ramirez 2-3 business days before your prescription runs out. Medications will NOT be refilled by station baggage [employer] providers after hours! > Many pain medications contain Tylenol (Acetaminophen). Do not consume more than 4,000 mg of Tylenol per day in total with any combination ofmedications. > Pain medications can cause constipation. Please use an over the counter stool softener as directed, while taking pain medications. Consulty our local pharmacist with questions or recommendations on stool softeners. If constipation persists, contact our office or your primary care provider. > While under our care,you are not to receive pain medications or other controlled substances from any other provider unless our office is notified and approves. Any attempts to do so will result in refusal to prescribe any further pain medications and possible dismissal from our practice. ? Keep dressing on until seen in office ? Walking is essential for the healing process after surgery. We would like you to slowly advance your walking. This should be done on relatively flat clear ground (inside or out) or can be done on a treadmill. Remember this goal does not have to happen all at once, slowly increase your distance and duration. This can be broken into more more than one walk per day as tolerated. Patients who walk as directed after surgery rarely require Physical Therapy. In the unlikely event this issue arises your provider will direct hospital staff to make the appropriate arrangements. ? No lifting over 5 pounds {a gallon of milk) or bending/twisting until further notice. Each of these activities places an unnecessary amount of stress onto the body and can impede the delicate healing process. > Instead of bending at the waist, keep your back straight and bend at the knees. > Instead of twisting your torso, keep your back straight and turn your entire body with your feet. ? You may sleep in any position which makes you comfortable. Many patients find comfort sleeping in a reclining chair. It is not abnormal to have difficulty sleeping for the first several weeks following your surgery. We recommend trying Benadry! or Tylenol PM as directed to help with your sleeping difficulties. Both medications are over the counter and available withoutprescription. ? NO SMOKING!!! Smoking dramatically increases the probability of developing postoperative wound infections. ? Common complaints after lumbar and/or thoracic spine surgery include, but are not limited to: numbness and/or tingling in the legs, pain around the incision and surrounding tissues, muscle spasms, or stiffness of the middle to low back. Contact our office if these symptoms persist or if an acute change occurs. ? No driving for the first 3-5days, and not while taking narcotics [] until seen at your follow-up appointment and cleared. There are no restrictions for riding on short trips, however if you take a longer trip, arrangements should be made to make regular stops to get out of the vehicle and stretch . ? Swelling is an unfortunate event that will take place with any surgery and is the primary source of your postoperative discomfort. While walking and regular approved activities helps control inflammation, there are additional steps you can take to minimizeswelling. > Place ice over the surgical site and surrounding tissue for twenty minutes, followed by applying a low/medium heat (heating pad) for an additional twenty minutes every 1-2 hours as needed for painrelief. > You may use of over the counter anti-inflammatory medications (Ibuprofen, Motrin, Aleve, Advil, etc) as directed on the package label. These types of medicines wm significantly reduce the amount of discomfort you experience after surgery from swelling. It should be noted that if you have and allergy to any of these medications, or a history of ulcers or kidney disease you should consult you primary care provider prior to starting these medications. Discharge Attestations Time Spent in Discharge Care*: less than 30 min Quality Metrics Clinical Quality Measures During this hospital stay, did patient experience: None Coding Level of Care Code Acute g [facility] note Diagnoses Encounter for postoperative care Z48.89
[2021-02-20] MEDS: liothyronine 5 mcg Tablet 10 MCG PO (10:18)
--- NOTE | 2021-02-20 10:22 | PM.PN ---
Subjective Subjective: Interval history: Kojo reports he was doing quite well this morning but then felt dizzy when he got up with therapy. Therapy indicates that he was orthostatic. He is now feeling somewhat better Medications: Reviewed: Yes Vitals/I&O/Wt Last Vital Signs Temp 98.5 F 02/20/21 07:17 Pulse 64 02/20/21 07:17 Resp 16 02/20/21 07:17 BP 138/81 02/20/21 07:17 Pulse Ox 91 02/20/21 07:17 02/19/21 02/20/21 02/20/21 22:59 06:59 14:59 Intake Total 120 / 590 480 / 1070 Output Total 450 / 1025 1200 / 2225 Balance -330 / -435 -720 / -1155 Physical Exam Narrative: EXAM NARRATIVE: General exam is a white male, no obvious distress currently. Neck is supple no lymphadenopathy or thyromegaly. Cardiovascular: Regular rate and rhythm without murmur, no S3 or S4 Lungs clear no wheezing or crackles Abdomen is soft, obese. Bowel sounds noted Back not examined Extremities no cyanosis clubbing or edema. 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 Ultimately received 3 units of packed red blood cells. Hemoglobin currently stable Status: Acute (3) Shortness of breath: Extensive cardiac work-up done prior to surgery including negative angiogram. EF is preserved and no major valvular abnormalities. Does have 1/4 diastolic dysfunction. Status: Acute (4) Seronegative rheumatoid arthritis of both hands: Currently on prednisone, Arava, leflunomide Status: Acute (5) HTN (hypertension): BIGG inhibitor discontinued, secondary to orthostatic hypotension Consider holding p.m. Lasix dose. Status: Acute Qualifiers: Hypertension type: essential hypertension Qualified Code(s): I10 - Essential (primary) hypertension (6) Hyperglycemia: Hemoglobin A1c earlier this year was normal, but patient has had additional elevation in glucose on BMPs lately. Repeat hemoglobin A1c 5.1 Status: Acute Additional A&P Information SCDs for DVT prophylaxis per primary. Lovenox on hold secondary to significant anemia, blood loss with surgery Attestations Medical Necessity Statement*: As per primary Coding Level of Care Code Acute [facility] Fwd Diagnoses Failed back surgical syndrome M96.1 Anemia D64.9 Shortness of breath R06.02 Seronegative rheumatoid arthritis of both hands M06.041; M06.042 HTN (hypertension) I10 Hypertension type: essential hypertension Hyperglycemia R73.9
[2021-02-20 11:02] VITALS: BP 110/66; PULSE 70; RESP 17; TEMP 36.8; O2SAT 93
[2021-02-20 12:29] VITALS: BP 110/66; PULSE 70; RESP 17; TEMP 36.8; O2SAT 93
== END 2021-02-20 12:30 | disposition home or self-care (01) | DRG 457 ==
LOC: MEDSURG 12:16
PROVIDERS: Anesthesiology; Internal Medicine; Physician Assistant; Admitting Provider Orthopaedic Surgery; PCP Internal Medicine; Visit Provider Orthopaedic Surgery
PROC: 0RG7071 Fusion of 2 to 7 Thoracic Vertebral Joints with Autologous Tissue Substitute, Posterior Approach, Posterior Column, Open Approach (ICD-10-PCS; CPT 22612; principal; 2021-02-17 07:00)
DX: M96.1 Postlaminectomy syndrome, not elsewhere classified (principal); I50.30 Unspecified diastolic (congestive) heart failure; N30.40 Irradiation cystitis without hematuria; D62 Acute posthemorrhagic anemia; I11.0 Hypertensive heart disease with heart failure; G89.29 Other chronic pain; J44.9 Chronic obstructive pulmonary disease, unspecified; K21.9 Gastro-esophageal reflux disease without esophagitis; Z85.828 Personal history of other malignant neoplasm of skin; I25.2 Old myocardial infarction; Z85.46 Personal history of malignant neoplasm of prostate; Z86.73 Personal history of transient ischemic attack (TIA), and cerebral infarction without residual deficits; E78.5 Hyperlipidemia, unspecified; E03.9 Hypothyroidism, unspecified; G47.33 Obstructive sleep apnea (adult) (pediatric); W88.1XXS Exposure to radioactive isotopes, sequela; Z92.3 Personal history of irradiation; M06.00 Rheumatoid arthritis without rheumatoid factor, unspecified site; Z96.642 Presence of left artificial hip joint; Z96.653 Presence of artificial knee joint, bilateral; M35.9 Systemic involvement of connective tissue, unspecified
CPT/HCPCS: 36415; 36430; 51702; 72100; 76000; 80048; 83036; 85014; 85018; 85025; 86850; 86900; 86920; 96372; 97110; 97116; 97161; 97530; C1713; J0330; J0690; J1100; J1170; J1644; J1650; J1885; J2370; J2405; J2704; J3010; J3370; J3490; J7030; J7512; P9016; P9040; P9041

== ENCOUNTER 2021-02-25 15:07 | Emergency (ER) | payer MEDICARE, OTHER, SELFPAY ==
--- NOTE | 2021-02-25 15:42 | CTR_ITS ---
PROCEDURE INFORMATION: Exam: CTA Chest With Contrast Exam date and time: 02/25/2021 3:42 PM Age: 75 years old Clinical indication: Shortness of breath; Prior surgery; Surgery date: 6+ months; Surgery type: Egd, gb, appy, multiple back; Additional info: Eval pe TECHNIQUE: Imaging protocol: Computed tomographic angiography of the chest with contrast. 3D rendering (Not supervised by radiologist): MIP and/or 3D reconstructed images were created by the technologist. Radiation optimization: All CT scans at this facility use at least one of these dose optimization techniques: automated exposure control; mA and/or kV adjustment per patient size (includes targeted exams where dose is matched to clinical indication); or iterative reconstruction. Contrast material: VISIPAQUE 320; Contrast volume: 74 ml; Contrast route: INTRAVENOUS (IV); COMPARISON: CT angio chest [id number] 03/29/2019 8:43 AM RADIATION DOSE METRICS: Total DLP (mGy-cm): 973.65 FINDINGS: Pulmonary arteries: Normal. No pulmonary emboli. Aorta: The ascending thoracic aorta is upper normal in diameter measuring 4.0 cm. No dissection. Thyroid: The thyroid gland is atrophic or surgically absent. Lungs: Patchy nodular infiltrates in the posterior left upper lobe, with a centrilobular distribution. Calcified granuloma in the left lower lobe. The lungs are otherwise clear. Pleural spaces: Unremarkable. No pneumothorax. No pleural effusion. Heart: Unremarkable. No cardiomegaly. No pericardial effusion. Lymph nodes: Unremarkable. No enlarged lymph nodes. Gallbladder and bile ducts: Cholecystectomy. Bile ducts are normal. Kidneys and ureters: Fluid density cyst in the left kidney, Hounsfield units less than 20. No follow-up imaging recommended. Bones/joints: Fusion hardware in the cervical and upper thoracic spine. Fusion hardware in the posterior lower thoracic and upper lumbar spine. Thoracolumbar scoliosis. No fracture identified. Soft tissues: Postsurgical scarring in the posterior soft tissues of the lower and upper thoracic spine region. 3.1 cm oval fluid collection just beneath the skin in the upper thoracic spine is most likely a seroma related to prior surgery, or an epidermal inclusion cyst. CT/CT angio chest PE protcl [id number] IMPRESSION: 1. No evidence for pulmonary embolus. 2. Centrilobular nodular infiltrates in the posterior left upper lobe could represent endobronchial pneumonia or aspiration. COMMENTS: Consistent with the [employer]'s Incidental Findings Committee white paper (J Am Juli Radiol 2018): Any incidental renal lesion less than 1 cm or classified as too small to characterize, or any incidental cystic renal lesion characterized as simple-appearing, is likely benign. No follow-up imaging is recommended for these lesions per consensus recommendations based on imaging criteria.
--- NOTE | 2021-02-25 15:44 | XR_ITS ---
WS: [id number] XR chest 1V portable [id number] REASON FOR EXAM: dyspnea FINDINGS: Chest is unchanged compared to 05/13/2020. Moderate tortuosity and ectasia of the thoracic aorta heart is mildly enlarged. Calcified granulomatous disease bilaterally. No active pulmonary parenchymal or pleural disease. Postsurgical changes in the lower cervical spine. Postsurgical changes in the thoracolumbar spine. XR/XR chest 1V portable [id number] IMPRESSION: No acute chest abnormality.
[2021-02-25 15:48] VITALS: BP 181/116; PULSE 72; RESP 24; TEMP 37.5; O2SAT 98; BMI 37.3
--- NOTE | 2021-02-25 15:56 | W.ED.GENADLT ---
HPI - General Adult General: Chief complaint: Shortness of Breath/Dyspnea Stated complaint: POST OP SURGERY COMPLICATIONS/POSS EMBOLISM Time Seen by Provider: 02/25/21 15:40 History of Present Illness: HPI narrative: Patient is a 75-year-old male who underwent recent T9-S1 instrumention with pelvic fusion on 02/17/2021 presenting to the emergency room for evaluation of shortness of breath. Patient was seen and evaluated today by Dr. Moody told to come to the emergency room for evaluation of blood clots. Has denies any history of DVT/PE. Denies any unilateral lower extremity swelling. Patient has no hemoptysis. Patient reports low-grade fever with dyspnea x3 days. Denies any associate chest pain, pleuritic chest pain, abdominal complaints, nausea/vomiting, of diarrhea, melena/hematochezia. Patient has no postoperative complications. Patient is due to follow-up with Dr. Delarosa in the next few weeks. Onset:3 days ago Duration:3 days Location:[place] Severity:moderate Review of Systems Narrative: Constitutional: +subjective fever, no chills. HEENT: No vision changes CV: No chest pain, no palpitations PULM: +cough, +dyspnea. GI: No abdominal pain, no N/V/D. : No dysuria MSKEL: No muscle pain SKIN: No new rashes, no lesions. NEURO: No headache, no focal weakness. HEME: No visible bruises PSYCH: Normal mood PFSH ED PFSH: Medical History (Updated 02/25/21 @ 17:46 by Raghavendra Ku MD) Anemia Carotid artery disease Cervical postlaminectomy syndrome CHF (congestive heart failure), NYHA class III Chronic low back pain Chronic venous insufficiency COPD (chronic obstructive pulmonary disease) DJD (degenerative joint disease) Gastroparesis GERD (gastroesophageal reflux disease) 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, greater than 8 weeks H/O prostate cancer High risk medication use History of nonmelanoma skin cancer History of TIA (transient ischemic attack) HTN (hypertension) Hx of cataract Hyperlipidemia Hypothyroid Immunization counseling Immunosuppression Inflammatory arthritis FUAD (obstructive sleep apnea) Osteoarthritis, generalized Positive CORBY (antinuclear antibody) EDUARDO was negative in 2013 Radiation cystitis Seronegative rheumatoid arthritis Seronegative rheumatoid arthritis of both hands Shortness of breath Undifferentiated connective tissue disease Surgical History H/O colonoscopy 2011 H/O esophagogastroduodenoscopy 2012 H/O neck surgery x 2 H/O total knee replacement right and left History of abdominal aortic aneurysm (AAA) repair History of back surgery x 7 History of cardiac cath 7 years ago nonobstructive, negative stress test 1 year ago 2019 History of hip surgery RIGHT 04/11/19 History of tonsillectomy and adenoidectomy History of total left hip arthroplasty Hx of appendectomy Hx of cholecystectomy 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 Family History Mother Bleeding disorder Other CAD (coronary artery disease) Cancer Stroke Denies family history of Anesthesia complication Social History Alcohol intake: never Household members: spouse Marital status: Current occupational status: retired History of recent travel: No Physical Exam Narrative: EXAM NARRATIVE: Head: Atraumatic Eyes: PERRL, conjunctiva without injection ENT: Mucous membrane moist NECK: Supple, ROM intact LUNGS: LCTAB, no crackles/rhonchi CV: RRR ABDOMEN: Soft, nontender in all quadrants EXTREMITY: Normal ROM SKIN: No rash or erythema NEURO: Awake and alert, no focal motor deficits PSYCH: Normal mood and affect Course Vital Signs: Vital signs: Vital Signs Temperature 99.5 F 02/25/21 15:48 Pulse Rate 72 02/25/21 15:48 Respiratory Rate 24 H 02/25/21 15:48 Blood Pressure 181/116 02/25/21 15:48 Pulse Oximetry 98 02/25/21 15:48 MDM - General Adult MDM Narrative: Medical decision making narrative: 75-year-old male presents the emergency room postoperatively with complaints of shortness of breath and low-grade fever and cough x3 days. On exam, patient is afebrile. Patient is noted to be in no respiratory distress satting greater than 95% on room air. Lungs appear to be clear on auscultation. Work-up today including WBC within normal limit. X-ray chest negative for any acute focal findings. CTA chest negative for PE. However patient is noted to have possible peribronchiolar pneumonia. Patient has 2 troponin that are similar. proBNP does not appear to be elevated. Given the finding of pneumonia, patient received ceftriaxone in the emergency room. The fact that patient has no confusion, no signs of respiratory distress, or new hypoxemia, patient is a candidate for outpatient management of pneumonia. Rx doxycycline twice daily and Augmentin twice daily for pneumonia Doubt ACS/PE or other emergent causes of chest pain. No suspicion for aortic dissection given no widened mediastinum, 2+ upper extremity pulses, or tearing pain. No suspicion for PE given no pleuritic chest pain, recent immobilization or surgery hemoptysis, or other VTE risk factors. EKG is non-ischemic. XR normal. Disposition: Discharge. Patient counseled regarding diagnostic impression, treatment plan. Patient given ED strict return precautions to return for continuation, worsening, or development of new symptoms. Instructed to f/u w/ PCP regarding symptoms today. Patient verbalized understanding. Lab Data: Labs: Lab Results 02/25/21 02/25/21 02/25/21 15:43 15:43 16:08 WBC RBC Hgb Hct MCV MCH MCHC RDW Plt Count MPV Neut % (Auto) Lymph % (Auto) [place] % (Auto) Eos % (Auto) Baso % (Auto) Neut # (Auto) Lymph # (Auto) [place] # (Auto) Eos # (Auto) Baso # (Auto) Nucleated RBC % (a uto) Nucleated RBCs # Sodium 138 mmol/L mmol/L (136-145) Potassium 4.0 mmol/L mmol/L (3.5-5.1) Chloride 101 mmol/L mmol/L (98-107) Carbon Dioxide 22 mmol/L mmol/L (22-29) Anion Gap 19.0 (5-19) BUN 12 mg/dL mg/dL (8-23) Creatinine 0.8 mg/dL mg/dL (0.7-1.2) GFR Calculation Not Reportable Glucose 101 mg/dL mg/dL (65-115) Calculated Osmolal ity 286 mOsm/kg mOsm/ kg (285-295) Calcium 8.1 mg/dL L mg/dL (8.5-10.5) Troponin T Baselin e 22 ng/L H ng/L (0-15) Troponin T 120 Min [place] Delta Troponin T NT-Pro-B Natriuret Pep 119 pg/mL pg/mL (0-450) SARS-CoV-2 Ag (Rap id) Negative (Negative) 02/25/21 02/25/21 16:22 18:30 WBC 4.1 10^3/uL 10^3/ uL (4.0-10.0) RBC 3.33 10^6/uL L 10 ^6/uL (4.1-5.3) Hgb 10.3 g/dL L g/dL (11.7-16.6) Hct 31.6 % L % (42.0-52.0) MCV 94.9 fl H fl (80-94) MCH 30.9 pg pg (28.0-34.0) MCHC 32.6 g/dL g/dL (30.0-36.0) RDW 16.1 % H % (12.1-15.1) Plt Count 170 10^3/cmm 10^3 /cmm (130-400) MPV 9.6 fL fL (7.4-10.4) Neut % (Auto) 68.2 % % Lymph % (Auto) 10.4 % % [place] % (Auto) 17.7 % % Eos % (Auto) 1.7 % % Baso % (Auto) 1.5 % % Neut # (Auto) 2.82 10^3/uL 10^3 /uL (1.8-7.7) Lymph # (Auto) 0.4 10^3/uL L 10^ 3/uL (0.8-4.8) [place] # (Auto) 0.7 10^3/uL 10^3/ uL (0.2-0.9) Eos # (Auto) 0.1 10^3/uL 10^3/ uL (0.0-0.8) Baso # (Auto) 0.1 10^3/uL 10^3/ uL (0.0-0.1) Nucleated RBC % (a uto) 0 % % Nucleated RBCs # 0.0 /100WBC /100W BC Sodium Potassium Chloride Carbon Dioxide Anion Gap BUN Creatinine GFR Calculation Glucose Calculated Osmolal ity Calcium Troponin T Baselin e Troponin T 120 Min [place] 22.78 ng/L H ng/L (0-15) Delta Troponin T 0.78 ABS# ABS# (0-10) NT-Pro-B Natriuret Pep SARS-CoV-2 Ag (Rap id) Imaging Data^: Other Imaging: Radiologist's impression: [address].[place], [place] [address]HKcg ReportSigned Patient: Kojo Marinelli #: [id number]: 1945cct#:[id number]/Sex: 75 / MADM Date: 02/25/21Loc: ERRoom/Bed:Attending Dr: Ordering Provider/Ordering MD: Raghavendra Ku MD Date of Service: 02/25/21 Procedure(s): XR chest 1V portable [id number] Accession Number(s): [id number] Report Number: [id number] WS: [id number] XR chest 1V portable [id number] REASON FOR EXAM: dyspnea FINDINGS: Chest is unchanged compared to 05/13/2020. Moderate tortuosity and ectasia of the thoracic aorta heart is mildly enlarged. Calcified granulomatous disease bilaterally. No active pulmonary parenchymal or pleural disease. Postsurgical changes in the lower cervical spine. Postsurgical changes in the thoracolumbar spine. XR/XR chest 1V portable [id number] IMPRESSION: No acute chest abnormality. Dictated By:Hamlet Watts Jr MDSigned By:Hamlet Watts Jr MDSigned Date/Time:02/25/21 1711DD/ [address] [place], [place] [address]DS Scan ReportSigned Patient: Kojo Marinelli #: [id number]: [id number]#:[id number]/Sex: 75 / MADM Date: 02/25/21Loc: ERRoom/Bed:Attending Dr: Ordering Provider/Ordering MD: Raghavendra Ku MD Date of Service: 02/25/21 Procedure(s): CT angio chest PE protcl [id number] Accession Number(s): [id number] Report Number: [id number] PROCEDURE INFORMATION: Exam: CTA Chest With Contrast Exam date and time: 02/25/2021 3:42 PM Age: 75 years old Clinical indication: Shortness of breath; Prior surgery; Surgery date: 6+ months; Surgery type: Egd, gb, appy, multiple back; Additional info: Eval pe TECHNIQUE: Imaging protocol: Computed tomographic angiography of the chest with contrast. 3D rendering (Not supervised by radiologist): MIP and/or 3D reconstructed images were created by the technologist. Radiation optimization: All CT scans at this facility use at least one of these dose optimization techniques: automated exposure control; mA and/or kV adjustment per patient size (includes targeted exams where dose is matched to clinical indication); or iterative reconstruction. Contrast material: VISIPAQUE 320; Contrast volume: 74 ml; Contrast route: INTRAVENOUS (IV); COMPARISON: CT angio chest [id number] 03/29/2019 8:43 AM RADIATION DOSE METRICS: Total DLP (mGy-cm): 973.65 FINDINGS: Pulmonary arteries: Normal. No pulmonary emboli. Aorta: The ascending thoracic aorta is upper normal in diameter measuring 4.0 cm. No dissection. Thyroid: The thyroid gland is atrophic or surgically absent. Lungs: Patchy nodular infiltrates in the posterior left upper lobe, with a centrilobular distribution. Calcified granuloma in the left lower lobe. The lungs are otherwise clear. Pleural spaces: Unremarkable. No pneumothorax. No pleural effusion. Heart: Unremarkable. No cardiomegaly. No pericardial effusion. Lymph nodes: Unremarkable. No enlarged lymph nodes. Gallbladder and bile ducts: Cholecystectomy. Bile ducts are normal. Kidneys and ureters: Fluid density cyst in the left kidney, Hounsfield units less than 20. No follow-up imaging recommended. Bones/joints: Fusion hardware in the cervical and upper thoracic spine. Fusion hardware in the posterior lower thoracic and upper lumbar spine. Thoracolumbar scoliosis. No fracture identified. Soft tissues: Postsurgical scarring in the posterior soft tissues of the lower and upper thoracic spine region. 3.1 cm oval fluid collection just beneath the skin in the upper thoracic spine is most likely a seroma related to prior surgery, or an epidermal inclusion cyst. CT/CT angio chest PE protcl [id number] IMPRESSION: 1. No evidence for pulmonary embolus. 2. Centrilobular nodular infiltrates in the posterior left upper lobe could represent endobronchial pneumonia or aspiration. COMMENTS: Consistent with the [place] [employer]'s Incidental Findings Committee white paper (J Am Juli Radiol 2018): Any incidental renal lesion less than 1 cm or classified as too small to characterize, or any incidental cystic renal lesion characterized as simple-appearing, is likely benign. No follow-up imaging is recommended for these lesions per consensus recommendations based on imaging criteria. Dictated By:Margaret Salcido By:Margaret Salcido Date/Time:02/25/21 1711DD/ 1542 Discharge Plan Discharge Patient Disposition: Home Clinical Impression: Dyspnea, Pneumonia Condition: Stable Prescriptions: New Augmentin 875-125 mg tablet 1 tab PO BID 10 Days Qty: 20 RF: 0 doxycycline hyclate 100 mg capsule 100 mg PO BID 5 Days Qty: 10 RF: 0 No Action hydrocortisone 2.5 % cream 1 applic TOPICAL BID PRN (Reason: Itching) RF: 0 oxybutynin chloride 5 mg tablet 5 mg PO BEDTIME RF: 0 nitroglycerin [Nitrostat] 0.4 mg tablet, sublingual 0.4 mg SUBLINGUAL Q5M PRN (Reason: Chest Pain) Qty: 25 RF: 6 ketoconazole 2 % cream 1 applic topical BID Qty: 30 RF: 1 mometasone 0.1 % solution 1 applic topical DAILY PRN (Reason: skin irritation) Qty: 60 RF: 3 prednisone 5 mg tablet See Rx Instructions PO DAILY Qty: 90 RF: 2 famotidine 40 mg tablet 40 mg PO DAILY RF: 0 (DME) Articulating AFO See Rx Instructions .Route .MEDSUPPLY Qty: 1 RF: 0 (DME) MARK BRACE See Rx Instructions .Route .MEDSUPPLY Qty: 1 RF: 0 carvedilol 12.5 mg tablet 25 mg PO BID RF: 0 furosemide 40 mg tablet 40 mg PO BID Qty: 180 RF: 2 potassium chloride 20 mEq tablet extended release 20 meq PO BID Qty: 180 RF: 2 gabapentin 300 mg capsule 300 mg PO TID Qty: 90 RF: 4 leflunomide [Arava] 20 mg tablet 20 mg PO DAILY Qty: 30 RF: 4 omeprazole 40 mg capsule,delayed release(DR/EC) 40 mg PO DAILY Qty: 90 RF: 1 prednisone 2.5 mg tablet 5 mg PO DAILY Qty: 60 RF: 4 Actemra 162 mg/0.9 mL syringe 162 mg SUBCUT .Q7days Qty: 4 RF: 3 atorvastatin 40 mg tablet 40 mg PO BEDTIME Qty: 90 RF: 3 aspirin 81 mg Tablet,Delayed Release (Dr/Ec) 81 mg PO DAILY Qty: 30 RF: 0 acetaminophen 500 mg Capsule 1,000 mg PO Q4H PRN (Reason: Pain) RF: 0 Vitamin D3 1 tab PO DAILY RF: 0 isosorbide mononitrate 30 mg tablet extended release 24 hr 30 mg PO DAILY RF: 0 diclofenac sodium 1 % gel 4 g TOPICAL QID PRN (Reason: Pain) RF: 0 hydrocodone-acetaminophen 5-325 mg tablet 1 - 2 tab PO .Q4-6H Qty: 40 RF: 0 levothyroxine [Synthroid] 137 mcg tablet 125 mcg PO DAILY RF: 0 liothyronine 5 mcg tablet 10 mcg PO DAILY RF: 0 Discharge Orders: Discharge ED (Routine); Ordered 02/25/21 Ordered By: Raghavendra Ku Referrals: Marsha Turner MD [Primary Care Provider] - Discharge Diet: Advance as tolerated Discharge Activity: Resume usual activity Patient Instructions: Pneumonia (ED) Activity Restrictions/Additional Instructions: Follow-up with your primary doctor in the next 48 to 72 hours. Come back to the emergency room you have any worsening shortness of breath, fever/chills, or any new concerning complaints. Please take your antibiotics as instructed. Please take your antibiotics as instructed. Watch out for signs of skin changes/redness, mouth redness or swelling, nausea/vomiting, diarrhea, blood in the urine or any new or concerining complaints. Come back to the emergency room if your chest pain worsens, have any fever or chills, worsening shortness of breath, worsening exertional lightheadedness, or any new or concerning complaints. Coding Level of Care Code ED Family Practice Medical Doctor for Lauren Zimmerman
[2021-02-25] MEDS: iodixanol 320 mg/mL 100mL Btl IV (16:28)
[2021-02-25 16:38] LABS: Basophils # 0.1 10^3/uL (0.0-0.1); Basophils % 1.5 %; Eosinophils # 0.1 10^3/uL (0.0-0.8); Eosinophils % 1.7 %; Hematocrit 31.6 % (42.0-52.0); Hemoglobin 10.3 g/dL (11.7-16.6); Lymphocytes # 0.4 10^3/uL (0.8-4.8); Lymphocytes % 10.4 %; Mean Corpuscular HGB Conc 32.6 g/dL (30.0-36.0); Mean Corpuscular Hemoglobin 30.9 pg (28.0-34.0); Mean Corpuscular Volume 94.9 fl (80-94); Mean Platelet Volume 9.6 fL (7.4-10.4); Monocytes # 0.7 10^3/uL (0.2-0.9); Monocytes % 17.7 %; Neutrophils # 2.82 10^3/uL (1.8-7.7); Neutrophils % 68.2 %; Nucleated Red Blood Cells % 0 %; Platelet Count 170 10^3/cmm (130-400); Red Blood Count 3.33 10^6/uL (4.1-5.3); Red Cell Distribution Width 16.1 % (12.1-15.1); White Blood Count 4.1 10^3/uL (4.0-10.0)
[2021-02-25 17:00] LABS: SARS Covid-2 Antigen Negative (Negative)
[2021-02-25 17:27] LABS: Blood Urea Nitrogen 12 mg/dL (8-23); Calcium 8.1 mg/dL (8.5-10.5); Carbon Dioxide 22 mmol/L (22-29); Chloride 101 mmol/L (98-107); Glucose 101 mg/dL (65-115); NT Pro B Type Natriuretic Pept 119 pg/mL (0-450); Osmolality Calculated 286 mOsm/kg (285-295); Sodium 138 mmol/L (136-145)
[2021-02-25 17:30] LABS: Troponin(5th) Baseline 22 ng/L (0-15)
--- NOTE | 2021-02-25 17:43 | ECG_ITS ---
[facility] Test Date: 2021-02-25 Pat Name: Kojo Marinelli Department: Room: Gender: Male Faculty Support Coordinator: : 1945 Requested By: Raghavendra Ku Order Number: [id number] Tessa MD: Priyanka Rivas M.D. Measurements Intervals [place] Rate: 74 P: 21 [place]: 198 QRS: -48 QRSD: 130 T: 21 QT: 399 QTc: 444 Interpretive Statements SINUS RHYTHM WITH OCCASIONAL ECTOPIC PREMATURE COMPLEXES POSSIBLE RIGHT VENTRICULAR CONDUCTION DELAY [RSR (QR) IN V1/V2] LEFT ANTERIOR FASCICULAR BLOCK [QRS AXIS <= -45, QR IN I, RS IN II] POSSIBLE SEPTAL MYOCARDIAL INFARCTION , PROBABLY OLD [30 ms Q WAVE IN V1/V2] Compared to ECG 02/25/2021 16:02:11 Left anterior fascicular block now present Intraventricular conduction delay no longer present Myocardial infarct finding still present Electronically Signed On 02-26-2021 22:08:24 SAFETY ATTENDANT by Priyanka Rivas M.D. [id number]
[2021-02-25] MEDS: HYDROmorphone 1 mg/mL INJ 1 mL 0.5 MG IVP (18:32)
[2021-02-25] MEDS: NIFEdipine ER (24 hr) 30 mg Tablet PO (18:32)
[2021-02-25] MEDS: cefTRIAXone 1,000 MG in sodium chloride 0.9% (plus) 50 ML 100 MG IV (18:33)
[2021-02-25 19:01] LABS: Troponin 5 2HR 22.78 ng/L (0-15); Troponin 5 2HR Delta 0.78 ABS# (0-10)
[2021-02-25 19:28] VITALS: BP 150/86; PULSE 83; RESP 16; O2SAT 99
--- NOTE | 2021-02-25 21:43 | ECG_ITS ---
[facility] Test Date: 2021-02-25 Pat Name: Kojo Marinelli Department: Room: Gender: Male Electrician Assistant: : 1945 Requested By: Raghavendra Ku Order Number: [id number] Tessa MD: Priyanka Rivas M.D. Measurements Intervals [place] Rate: 71 P: 27 [place]: 198 QRS: -47 QRSD: 134 T: 14 QT: 396 QTc: 433 Interpretive Statements SINUS RHYTHM INTRAVENTRICULAR CONDUCTION DELAY [130+ ms QRS DURATION] PROBABLE SEPTAL MYOCARDIAL INFARCTION , OF INDETERMINATE AGE [35 ms Q WAVE IN V1/V2] Compared to ECG 07/14/2019 01:47:57 Myocardial infarct finding now present First degree AV block no longer present Electronically Signed On 02-26-2021 22:07:33 INTERNATIONAL OPERATIONS MANAGER by Priyanka Rivas M.D. [id number]
[2021-02-26 13:56] LABS: Coronavirus Test Green County Detected
== END 2021-02-25 19:28 | disposition home or self-care (01) ==
PROVIDERS: Emergency Provider Emergency Medicine; PCP Internal Medicine
DX: U07.1 COVID-19 (principal); J18.9 Pneumonia, unspecified organism; Z79.82 Long term (current) use of aspirin; I11.0 Hypertensive heart disease with heart failure; I50.9 Heart failure, unspecified; J44.9 Chronic obstructive pulmonary disease, unspecified; I25.2 Old myocardial infarction; Z85.46 Personal history of malignant neoplasm of prostate; Z86.73 Personal history of transient ischemic attack (TIA), and cerebral infarction without residual deficits; E78.5 Hyperlipidemia, unspecified
CPT/HCPCS: 71045; 71275; 80048; 83880; 84484; 85025; 87426; 87635; 93005; 96365; 96375; 99283; J0696; J1170; Q9967

== ENCOUNTER 2021-03-12 14:13 | Emergency (ER) | payer MEDICARE, OTHER, SELFPAY ==
[2021-03-12 14:22] VITALS: BP 187/101; PULSE 70; RESP 20; TEMP 36.7; O2SAT 97; BMI 37.3
[2021-03-12 15:57] VITALS: BP 170/92; PULSE 64; RESP 20; O2SAT 97
--- NOTE | 2021-03-12 16:04 | PC.NURSE ---
patient c/o increased generalized weakness. patients Surgical site observed and no bleeding/leaking noted upon assessment. Vitals taken and charted and no adventitious vitals noted. Patient in no obvious distress. Patient placed back in waiting room.
--- NOTE | 2021-03-12 17:15 | ED_ITS ---
HPI - General Adult General: Chief complaint: General Medical Stated complaint: BLEEDING FROM STITCHES ON BACK Time Seen by Provider: 03/12/21 17:11 History of Present Illness: HPI narrative: Patient is a 75-year-old male comes to the ED with postsurgical site leaking. Patient had lumbar revision fusion surgery on February [address] Delarosa. He then had his sutures removed at surgical site at Dr. Delarosa's office on March 11. 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 He took off his dress shirt and noticed that his white T-shirt had a wet spot or on the back where surgical site is and appeared to be draining. Color of drainage on T-shirt was a light oranges color. No puslike drainage and the drainage did not have a smell to it. No acute pain or change in symptoms of patient. Patient says by the time he got here to the ED feels like the draining stopped. Denies any fevers. Associated symptoms: Deny chest pain, dyspnea, headache(s), nausea, rash, palpitations or vomiting Review of Systems Const: Denies: fever(s), chills or fatigue Eyes: Denies: change in vision or eye discomfort ENMT: Denies: throat pain, odynophagia, nasal discharge or nasal congestion Card: Denies: chest pain, palpitations, edema, swelling of feet/ankles, dyspnea on exertion or orthopnea Resp: Denies: dyspnea, productive cough or non-productive cough GI: Denies: abdominal pain, nausea, vomiting, diarrhea, constipation or hematochezia : Denies: flank pain, difficulty urinating, dysuria or hematuria Musc: Denies: neck pain, back pain or extremity swelling Skin/Breast: Reports: surgical incision (Mid back to lumbar-surgical site incision); Denies: rash or new lesions Neuro: Denies: headache(s), numbness in extremities or weakness in extremities PFS ED PFSH: Medical History Anemia Carotid artery disease Cervical postlaminectomy syndrome CHF (congestive heart failure), NYHA class III Chronic low back pain Chronic venous insufficiency COPD (chronic obstructive pulmonary disease) DJD (degenerative joint disease) Gastroparesis GERD (gastroesophageal reflux disease) 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, greater than 8 weeks H/O prostate cancer High risk medication use History of nonmelanoma skin cancer History of TIA (transient ischemic attack) HTN (hypertension) Hx of cataract Hyperlipidemia Hypothyroid Immunization counseling Immunosuppression Inflammatory arthritis FUAD (obstructive sleep apnea) Osteoarthritis, generalized Positive CORBY (antinuclear antibody) EDUARDO was negative in 2013 Radiation cystitis Seronegative rheumatoid arthritis Seronegative rheumatoid arthritis of both hands Shortness of breath Undifferentiated connective tissue disease Surgical History H/O colonoscopy 2011 H/O esophagogastroduodenoscopy 2012 H/O neck surgery x 2 H/O total knee replacement right and left History of abdominal aortic aneurysm (AAA) repair History of back surgery x 7 History of cardiac cath 7 years ago nonobstructive, negative stress test 1 year ago 2019 History of hip surgery RIGHT 04/11/19 History of tonsillectomy and adenoidectomy History of total left hip arthroplasty Hx of appendectomy Hx of cholecystectomy 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 Family History Mother Bleeding disorder Other CAD (coronary artery disease) Cancer Stroke Denies family history of Anesthesia complication Social History Alcohol intake: never Household members: spouse Marital status: Current occupational status: retired History of recent travel: No Physical Exam Const: COMMON NORMALS: no acute distress, patient oriented x3 and alert GENERAL APPEARANCE: cooperative and comfortable HENMT: COMMON NORMALS: normocephalic HEAD & SCALP: normocephalic MOUTH: Normal oral and palatal mucosa present THROAT: posterior oropharynx normal and uvula midline Neck/C-Spine: COMMON NORMALS: supple GENERAL: Yes normal visual inspection Resp: COMMON NORMALS: normal respiratory effort, No retractions, No use of accessory muscles and clear to auscultation bilaterally AUSCULTATION: clear to auscultation bilaterally Cardio: COMMON NORMALS: regular rate, regular rhythm, S1 normal heart sound present, S2 normal heart sound present, No gallops present (Cardio), No clicks present (Cardio), No murmurs present (Cardio) and Peripheral pulses 2+ throughout RATE: regular rate RHYTHM: regular rhythm HEART SOUNDS: S1 normal heart sound present and S2 normal heart sound present PERIPHERAL PULSES: Peripheral pulses 2+ throughout GI: COMMON NORMALS: Normal to inspection, nondistended, normoactive bowel sounds present, Soft to palpation, non-tender and no masses PALPATION: Yes Soft to palpation : COMMON NORMALS: Yes no CVA tenderness BLADDER/KIDNEY EXAM: Yes no CVA tenderness Back/Pelvis: COMMON NORMALS: no CVA tenderness Extremity: COMMON NORMALS: normal to inspection Neuro: COMMON NORMALS: patient oriented x3 and moves all extremities SENSORIUM/ORIENTATION: Yes alert Skin: NARRATIVE SKIN EXAM: Surgical incision site on mid back extended down into the lumbar spine?no active bleeding or any other drainage of fluid from incision site. Incision site appears to be healing well with no wound dehiscence noticed. No signs of cellulitis noted around wound either. WOUNDS: Yes surgical site (Mid back down to the lumbar linear incision site healing well) Details: bed Details: granulating well and no odor Course Vital Signs: Vital signs: Vital Signs Temperature 98.0 F 03/12/21 14:22 Pulse Rate 64 03/12/21 15:57 Respiratory Rate 20 H 03/12/21 15:57 Blood Pressure 170/92 03/12/21 15:57 Pulse Oximetry 97 03/12/21 15:57 MDM - General Adult MDM Narrative: Medical decision making narrative: Patient is a 75-year-old male comes to the ED with postsurgical site leaking. Patient had LUIS FERNANDO 10 to pelvis revision fusion surgery on February [address] Delarosa. He then had his sutures removed at surgical site at Dr. Delarosa's office on March 11. 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 He took off his dress shirt and noticed that his white T-shirt had a wet spot or on the back where surgical site is and appeared to be draining. Color of drainage on T-shirt was a light oranges color. No puslike drainage and the drainage did not have a smell to it. No acute pain or change in symptoms of patient. Patient says by the time he got here to the ED feels like the draining stopped. Exam of surgical incision site on back showed no fluid or bloody drainage. Wound appears to be healing very well and no dehiscence seen. No signs of any cellulitis. Hemoglobin level 9.7 which is just a little down from his previous hemoglobin of 10.3 on February 25. Surgical site was rebandaged and patient was discharged home. He was told to follow-up with his PCP in the next 3 to 5 days to recheck his hemoglobin levels. He was also told to contact Dr. Delarosa to discuss ED visit and see if Would like to see him sooner than his next scheduled appointment. Return to ED precautions given. Patient understood and agree with plan. Lab Data: Attestation: I reviewed the patient's lab results. Labs: Lab Results 03/12/21 17:52 WBC 4.8 10^3/uL 10^3/ uL (4.0-10.0) RBC 3.27 10^6/uL L 10 ^6/uL (4.1-5.3) Hgb 9.7 g/dL L g/dL (11.7-16.6) Hct 30.8 % L % (42.0-52.0) MCV 94.2 fl H fl (80-94) MCH 29.7 pg pg (28.0-34.0) MCHC 31.5 g/dL g/dL (30.0-36.0) RDW 14.9 % % (12.1-15.1) Plt Count 172 10^3/cmm 10^3 /cmm (130-400) MPV 9.0 fL fL (7.4-10.4) Neut % (Auto) 71.2 % % Lymph % (Auto) 15.6 % % Emery % (Auto) 11.8 % % Eos % (Auto) 0.4 % % Baso % (Auto) 0.6 % % Neut # (Auto) 3.38 10^3/uL 10^3 /uL (1.8-7.7) Lymph # (Auto) 0.7 10^3/uL L 10^ 3/uL (0.8-4.8) Emery # (Auto) 0.6 10^3/uL 10^3/ uL (0.2-0.9) Eos # (Auto) 0.0 10^3/uL 10^3/ uL (0.0-0.8) Baso # (Auto) 0.0 10^3/uL 10^3/ uL (0.0-0.1) Nucleated RBC % (a uto) 0 % % Nucleated RBCs # 0.0 /100WBC /100W BC Discharge Plan Discharge Patient Disposition: Home Clinical Impression: Status post lumbar surgery Anemia Qualifiers: Anemia type: unspecified type Qualified Code(s): D64.9 - Anemia, unspecified Condition: Stable Prescriptions: No Action hydrocortisone 2.5 % cream 1 applic TOPICAL BID PRN (Reason: Itching) RF: 0 oxybutynin chloride 5 mg tablet 5 mg PO BEDTIME RF: 0 nitroglycerin [Nitrostat] 0.4 mg tablet, sublingual 0.4 mg SUBLINGUAL Q5M PRN (Reason: Chest Pain) Qty: 25 RF: 6 ketoconazole 2 % cream 1 applic topical BID Qty: 30 RF: 1 mometasone 0.1 % solution 1 applic topical DAILY PRN (Reason: skin irritation) Qty: 60 RF: 3 prednisone 5 mg tablet See Rx Instructions PO DAILY Qty: 90 RF: 2 famotidine 40 mg tablet 40 mg PO DAILY RF: 0 (DME) Articulating AFO See Rx Instructions .Route .MEDSUPPLY Qty: 1 RF: 0 (DME) MARK BRACE See Rx Instructions .Route .MEDSUPPLY Qty: 1 RF: 0 carvedilol 12.5 mg tablet 25 mg PO BID RF: 0 furosemide 40 mg tablet 40 mg PO BID Qty: 180 RF: 2 gabapentin 300 mg capsule 300 mg PO TID Qty: 90 RF: 4 leflunomide [Arava] 20 mg tablet 20 mg PO DAILY Qty: 30 RF: 4 omeprazole 40 mg capsule,delayed release(DR/EC) 40 mg PO DAILY Qty: 90 RF: 1 prednisone 2.5 mg tablet 5 mg PO DAILY Qty: 60 RF: 4 Actemra 162 mg/0.9 mL syringe 162 mg SUBCUT .Q7days Qty: 4 RF: 3 tramadol [Ultram] 50 mg tablet 50 mg PO Q6H PRN (Reason: pain) 7 Days Qty: 30 RF: 0 atorvastatin 40 mg tablet 40 mg PO BEDTIME Qty: 90 RF: 3 hydrocodone-acetaminophen 5-325 mg tablet 1 - 2 tab PO .Q4-6H PRN (Reason: pain) 7 Days Qty: 40 RF: 0 potassium chloride 10 mEq tablet extended release 20 meq PO BID Qty: 360 RF: 2 aspirin 81 mg Tablet,Delayed Release (Dr/Ec) 81 mg PO DAILY Qty: 30 RF: 0 acetaminophen 500 mg Capsule 1,000 mg PO Q4H PRN (Reason: Pain) RF: 0 Vitamin D3 1 tab PO DAILY RF: 0 isosorbide mononitrate 30 mg tablet extended release 24 hr 30 mg PO DAILY RF: 0 diclofenac sodium 1 % gel 4 g TOPICAL QID PRN (Reason: Pain) RF: 0 levothyroxine [Synthroid] 137 mcg tablet 125 mcg PO DAILY RF: 0 liothyronine 5 mcg tablet 10 mcg PO DAILY RF: 0 Discharge Orders: Discharge ED (Routine); Ordered 03/12/21 Ordered By: Giovanni Edmond Referrals: Marsha Turner MD [Primary Care Provider] - Discharge Diet: Regular Discharge Activity: Limit activity as instructed Patient Instructions: Anemia (ED) Activity Restrictions/Additional Instructions: Follow-up with medical provider as directed. Follow-up with your PCP in 3 to 5 days to have your hemoglobin levels rechecked. Contact Dr. Delarosa's office tomorrow to discuss ED visit and see if he would like to have follow-up with you sooner than your next appointment. Take medications as prescribed. Continue limiting activity as instructed by Dr. Delarosa for postop healing. Return to the ER or your medical provider if condition worsens. Please read and understand discharge instructions. Thank you for choosing [facility] for your healthcare needs today. Please realize this is an emergency room and that we are providing you with a medical screening exam and this may not be complete and all inclusive of all the testing and or work up that you may need to determine your ailment or severity of your illness. It is very important that you follow up as instructed or that you return to the Emergency Department should you have concerns or if your condition changes or worsens in any way. Coding Level of Care Code ED [employer] for Lauren [facility] Exam Comprehensive
[2021-03-12 18:04] LABS: Basophils % 0.6 %; Eosinophils % 0.4 %; Hematocrit 30.8 % (42.0-52.0); Hemoglobin 9.7 g/dL (11.7-16.6); Lymphocytes # 0.7 10^3/uL (0.8-4.8); Lymphocytes % 15.6 %; Mean Corpuscular HGB Conc 31.5 g/dL (30.0-36.0); Mean Corpuscular Hemoglobin 29.7 pg (28.0-34.0); Mean Corpuscular Volume 94.2 fl (80-94); Monocytes # 0.6 10^3/uL (0.2-0.9); Monocytes % 11.8 %; Neutrophils # 3.38 10^3/uL (1.8-7.7); Neutrophils % 71.2 %; Nucleated Red Blood Cells % 0 %; Platelet Count 172 10^3/cmm (130-400); Red Blood Count 3.27 10^6/uL (4.1-5.3); Red Cell Distribution Width 14.9 % (12.1-15.1); White Blood Count 4.8 10^3/uL (4.0-10.0)
== END 2021-03-12 18:37 | disposition home or self-care (01) ==
PROVIDERS: Emergency Provider Physician Assistant; PCP Internal Medicine
DX: D64.9 Anemia, unspecified (principal); Z98.890 Other specified postprocedural states; I11.0 Hypertensive heart disease with heart failure; I50.9 Heart failure, unspecified; J44.9 Chronic obstructive pulmonary disease, unspecified; I25.2 Old myocardial infarction; Z85.46 Personal history of malignant neoplasm of prostate; Z86.73 Personal history of transient ischemic attack (TIA), and cerebral infarction without residual deficits; E78.5 Hyperlipidemia, unspecified; Z79.82 Long term (current) use of aspirin
CPT/HCPCS: 85025; 99283

== ENCOUNTER 2021-03-20 | Outpatient (CLI) | payer MEDICARE, OTHER, SELFPAY | END 2021-03-20 00:01 | disposition home or self-care (01) | LOC: RAD 07-21 14:21 | PROVIDERS: PCP Internal Medicine Cardiovascular Disease; Visit Provider Orthopaedic Surgery | DX: Z47.89 Encounter for other orthopedic aftercare (principal); Z98.1 Arthrodesis status; M47.896 Other spondylosis, lumbar region | CPT/HCPCS: 72100 ==

== ENCOUNTER → 2021-04-24 10:01 | Outpatient (BNVA) | payer MEDICARE, OTHER, SELFPAY | PROVIDERS: PCP Internal Medicine; Visit Provider Orthopaedic Surgery | DX: Z48.89 Encounter for other specified surgical aftercare (principal); Z98.1 Arthrodesis status | CPT/HCPCS: 72100 ==

== ENCOUNTER 2021-04-28 10:51 | Emergency (ER) | payer MEDICARE, OTHER, SELFPAY ==
[2021-04-28 11:32] VITALS: BP 158/80; PULSE 69; RESP 18; TEMP 36.7; O2SAT 95; BMI 40.6
[2021-04-28 11:41] VITALS: BP 133/78; PULSE 69; RESP 18; O2SAT 97
--- NOTE | 2021-04-28 12:10 | ED_ITS ---
Documented by User: SELVIN Finch 04/28/21 15:14 HPI - Extremity Problem General: Chief complaint: Extremity Injury, Lower Stated complaint: Leg and feet swelling extreme pain Time Seen by Provider: 04/28/21 11:51 Source: patient Mode of arrival: ambulatory Limitations: no limitations History of Present Illness: Patient is a 75-year-old male who presents to ED today along with his for complaints of diffuse swelling. Patient states he has noted a 20 pound weight gain over the past 1 to 2 weeks. He has a known history of CHF. Patient states he was recently placed on Lasix 40 mg twice daily but began having hematuria so his PCP decreased him to Lasix 40 mg daily. He states he has having diffuse swelling to his bilateral lower extremities now extending past the knee and has now had swelling to his hands and arms as well as abdomen. He does not complain of any pain. He has chronic shortness of breath-is not sure if this is any worse than his baseline. No chest pains. reports LE venous reflux that Dr. Russ stated he would like to have procedure performed. MD Complaint: extremity swelling Onset (ago): day(s) Relieving factors: nothing Exacerbating factors: nothing Associated symptoms: Reports no associated symptoms; Deny chest pain or fever(s) Review of Systems Const: Denies: fever(s), chills, body aches, fatigue or malaise Card: Reports: edema, swelling of feet/ankles and dyspnea on exertion (chronic); Denies: chest pain, palpitations, irregular heart rhythm, lightheadedness, syncope or pre-syncope Resp: Denies: productive cough, hemoptysis or chest congestion GI: Denies: abdominal pain, nausea or vomiting : Denies: flank pain or dysuria Musc: Denies: neck pain, back pain, extremity pain or joint pain Neuro: Denies: headache(s), numbness in extremities, weakness in extremities or sensory changes PFS ED PFSH: Medical History Anemia Carotid artery disease Cervical postlaminectomy syndrome CHF (congestive heart failure), NYHA class III Chronic low back pain Chronic venous insufficiency COPD (chronic obstructive pulmonary disease) DJD (degenerative joint disease) Gastroparesis GERD (gastroesophageal reflux disease) 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, greater than 8 weeks H/O prostate cancer High risk medication use History of nonmelanoma skin cancer History of TIA (transient ischemic attack) HTN (hypertension) Hx of cataract Hyperlipidemia Hypothyroid Immunization counseling Immunosuppression Inflammatory arthritis FUAD (obstructive sleep apnea) Osteoarthritis, generalized Positive CORBY (antinuclear antibody) EDUARDO was negative in 2013 Radiation cystitis Seronegative rheumatoid arthritis Seronegative rheumatoid arthritis of both hands Shortness of breath Undifferentiated connective tissue disease Surgical History H/O colonoscopy 2011 H/O esophagogastroduodenoscopy 2012 H/O neck surgery x 2 H/O total knee replacement right and left History of abdominal aortic aneurysm (AAA) repair History of back surgery x 7 History of cardiac cath 7 years ago nonobstructive, negative stress test 1 year ago 2019 History of hip surgery RIGHT 04/11/19 History of tonsillectomy and adenoidectomy History of total left hip arthroplasty Hx of appendectomy Hx of cholecystectomy 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 Family History Mother Bleeding disorder Other CAD (coronary artery disease) Cancer Stroke Denies family history of Anesthesia complication Social History Smoking and tobacco status: never smoked Alcohol intake: never Household members: spouse Marital status: Current occupational status: retired History of recent travel: No Physical Exam Const: COMMON NORMALS: no acute distress, patient oriented x3, no limitations and alert NUTRITIONAL APPEARANCE: obese ORIENTATION/CONSCIOUSNESS: Yes dorys ke, Yes oriented to person, Yes oriented to place and Yes oriented to time HENMT: COMMON NORMALS: normocephalic and atraumatic HEAD & SCALP: normocephalic and atraumatic Resp: COMMON NORMALS: normal respiratory effort and clear to auscultation bilaterally AUSCULTATION: clear to auscultation bilaterally Cardio: COMMON NORMALS: regular rate and regular rhythm RATE: regular rate RHYTHM: regular rhythm GI: COMMON NORMALS: Normal to inspection, nondistended, normoactive bowel sounds present, Soft to palpation and non-tender PALPATION: Yes Soft to p alpation OTHER: limited secondary to body habitus Extremity: OTHER: pt has significant equal bilateral 2+ pitting edema to his knees; no cellulitis; NV intact Neuro: COMMON NORMALS: patient oriented x3, moves all extremities, no focal motor deficits, no sensory deficits noted and gait normal SENSORIUM/O RIENTATION: Yes alert, Yes oriented to person, Yes oriented to place and Yes oriented to time Skin: COMMON NORMALS: no rashes or lesions noted GENERAL SKIN EXAM: no rashes or lesions noted Course Vital Signs: Vital signs: Vital Signs Temperature 98.5 F 04/28/21 13:37 Pulse Rate 65 04/28/21 13:37 Respiratory Rate 16 04/28/21 13:37 Blood Pressure 133/78 04/28/21 13:37 Pulse Oximetry 95 04/28/21 13:37 MDM - Extremity (Nontraumatic) Medical Decision Making Patient is a nice 75-year-old male here with his for complaints of worsening lower extremity swelling. Patient has noticed weight gain over the past 1 to 2 weeks. His vital signs are stable. Clinically he does appear fluid overloaded although I do not know his baseline status. His BNP surprisingly is only 119. CXR shows no evidence of acute fluid overload. I spoke to Dr. Chairez who recommended 80 mg of IV Lasix and switching his medications at home from Lasix to Bumex. I have spoken to case management who was able to get patient an appointment with cardiology on Wednesday with Melba Puga for further evaluation. Lab Data : 04/28/21 13:00 04/28/21 13:00 Radiology Impressions Chest X-Ray 04/28/21 12:29 IMPRESSION: No acute findings. Orthopedic hardware cervical and dorsal spine Laboratory Results WBC 3.0 10^3/uL (4.0-10.0) L 04/28/21 13:00 RBC 3.36 10^6/uL (4.1-5.3) L 04/28/21 13:00 Hgb 9.5 g/dL (11.7-16.6) L 04/28/21 13:00 Hct 31.4 % (42.0-52.0) L 04/28/21 13:00 MCV 93.5 fl (80-94) 04/28/21 13:00 MCH 28.3 pg (28.0-34.0) 04/28/21 13:00 MCHC 30.3 g/dL (30.0-36.0) 04/28/21 13:00 RDW 15.6 % (12.1-15.1) H 04/28/21 13:00 Plt Count 186 10^3/cmm (130-400) 04/28/21 13:00 MPV 10.0 fL (7.4-10.4) 04/28/21 13:00 Neut % (Auto) 48.8 % 04/28/21 13:00 Lymph % (Auto) 22.1 % 04/28/21 13:00 [place] % (Auto) 21.1 % 04/28/21 13:00 Eos % (Auto) 5.0 % 04/28/21 13:00 Baso % (Auto) 3.0 % 04/28/21 13:00 Neut # (Auto) 1.45 10^3/uL (1.8-7.7) L 04/28/21 13:00 Lymph # (Auto) 0.7 10^3/uL (0.8-4.8) L 04/28/21 13:00 [place] # (Auto) 0.6 10^3/uL (0.2-0.9) 04/28/21 13:00 Eos # (Auto) 0.2 10^3/uL (0.0-0.8) 04/28/21 13:00 Baso # (Auto) 0.1 10^3/uL (0.0-0.1) 04/28/21 13:00 Nucleated RBC % (auto) 0 % 04/28/21 13:00 Nucleated RBCs # 0.0 /100WBC 04/28/21 13:00 Sodium 139 mmol/L (136-145) 04/28/21 13:00 Potassium 4.2 mmol/L (3.5-5.1) 04/28/21 13:00 Chloride 105 mmol/L (98-107) 04/28/21 13:00 Carbon Dioxide 24 mmol/L (22-29) 04/28/21 13:00 Anion Gap 14.2 (5-19) 04/28/21 13:00 BUN 9 mg/dL (8-23) 04/28/21 13:00 Creatinine 0.9 mg/dL (0.7-1.2) 04/28/21 13:00 GFR Calculation Not Reportable 04/28/21 13:00 Glucose 98 mg/dL (65-115) 04/28/21 13:00 Calculated Osmolality 287 mOsm/kg (285-295) 04/28/21 13:00 Calcium 8.2 mg/dL (8.5-10.5) L 04/28/21 13:00 Total Bilirubin 0.6 mg/dL (0.15-1.2) 04/28/21 13:00 AST 24 U/L (0-40) 04/28/21 13:00 ALT 18 U/L (0-41) 04/28/21 13:00 Alkaline Phosphatase 99 IU/L (40-130) 04/28/21 13:00 Troponin T Baseline 27 ng/L (0-15) H 04/28/21 13:00 NT-Pro-B Natriuret Pep 119 pg/mL (0-450) 04/28/21 13:00 Total Protein 5.8 g/dL (6.6-8.7) L 04/28/21 13:00 Albumin 4.2 g/dL (3.5-5.2) 04/28/21 13:00 Globulin 1.6 g/dL (1.3-4.6) 04/28/21 13:00 Urine Color Yellow (Yellow) 04/28/21 12:35 Urine Appearance Clear (CLEAR) 04/28/21 12:35 Urine pH 5 (5-7) 04/28/21 12:35 Ur Specific [place] 1.030 (1.005-1.030) 04/28/21 12:35 Urine Protein Neg (Negative) 04/28/21 12:35 Urine Glucose (UA) Norm (Normal) 04/28/21 12:35 Urine Ketones Negative (Negative) 04/28/21 12:35 Urine Blood Neg (Negative) 04/28/21 12:35 Urine Nitrate Negative (Negative) 04/28/21 12:35 Urine Bilirubin Neg (Negative) 04/28/21 12:35 Urine Urobilinogen Norm mg/dL (Negative) 04/28/21 12:35 Ur Leukocyte Esterase Negative (Negative) 04/28/21 12:35 Discharge Plan Discharge Patient Disposition: Home Clinical Impression: Acute on chronic congestive heart failure Qualifiers: Heart failure type: unspecified Qualified Code(s): I50.9 - Heart failure, unspecified Condition: Stable Prescriptions: New bumetanide 2 mg tablet 2 mg PO BID Qty: 60 0RF Continued potassium chloride 20 mEq tablet extended release 20 meq PO BID Qty: 180 3RF Discontinued furosemide 40 mg tablet 40 mg PO BID Qty: 180 3RF No Action hydrocortisone 2.5 % cream 1 applic TOPICAL BID PRN (Reason: Itching) 0RF oxybutynin chloride 5 mg tablet 5 mg PO BEDTIME 0RF ketoconazole 2 % cream 1 applic topical BID Qty: 30 1RF Rx Instructions: Apply 1-2 times daily on red, scaly areas of face mometasone 0.1 % solution 1 applic topical DAILY PRN (Reason: skin irritation) Qty: 60 3RF Rx Instructions: apply a few drops to scalp daily as needed famotidine 40 mg tablet 40 mg PO DAILY 0RF (DME) Articulating AFO See Rx Instructions .Route .MEDSUPPLY Qty: 1 0RF Rx Instructions: As directed (DME) MARK BRACE See Rx Instructions .Route .MEDSUPPLY Qty: 1 0RF Rx Instructions: As directed gabapentin 300 mg capsule 300 mg PO TID Qty: 90 4RF leflunomide [Arava] 20 mg tablet 20 mg PO DAILY Qty: 30 4RF Rx Instructions: 340 b pricing please omeprazole 40 mg capsule,delayed release(DR/EC) 40 mg PO DAILY Qty: 90 1RF prednisone 2.5 mg tablet 5 mg PO DAILY Qty: 60 4RF Actemra 162 mg/0.9 mL syringe 162 mg SUBCUT .Q7days Qty: 4 3RF aspirin 81 mg tablet,delayed release (DR/EC) 81 mg PO DAILY Qty: 90 3RF atorvastatin 40 mg tablet 40 mg PO BEDTIME Qty: 90 3RF carvedilol 25 mg tablet 25 mg PO BID Qty: 180 3RF isosorbide mononitrate 30 mg tablet extended release 24 hr 30 mg PO DAILY Qty: 90 3RF nitroglycerin [Nitrostat] 0.4 mg tablet, sublingual 0.4 mg SUBLINGUAL Q5M PRN (Reason: Chest Pain) Qty: 25 6RF tramadol [Ultram] 50 mg tablet 50 mg PO Q6H PRN (Reason: pain) 7 Days Qty: 30 0RF acetaminophen 500 mg Capsule 1,000 mg PO Q4H PRN (Reason: Pain) 0RF Vitamin D3 1 tab PO DAILY 0RF diclofenac sodium 1 % gel 4 g TOPICAL QID PRN (Reason: Pain) 0RF levothyroxine [Synthroid] 137 mcg tablet 125 mcg PO DAILY 0RF Rx Instructions: PT STATES THIS MEDICATION MUST BE SYNTHROID, NOT LEVOTHYROXINE. liothyronine 5 mcg tablet 10 mcg PO DAILY 0RF Discharge Orders: Discharge ED (Routine); Ordered 04/28/21 Ordered By: Kat Tapia Referrals: Marsha Turner MD [Primary Care Provider] - Melba Puga FNP [Nurse Practitioner] - 04/30/21 10:15 am Activity Restrictions/Additional Instructions: You have an appointment at the cardiology clinic with Melba Puga NP on Sunday 04/30 at 10:15 for further evaluation. As we discussed please discont inue your Lasix. We are starting you on Bumex 2 mg twice daily. Please fill this medication and started immediately. Continue taking your daily potassium. Coding Level of Care Code ED Fitness Centre Manager for Chg Fwd Exam Detailed Documented by User: Checo Chairez DO 04/28/21 15:17 HPI - Extremity Problem General: Chief complaint: Extremity Injury, Lower Stated complaint: Leg and feet swelling extreme pain Time Seen by Provider: 04/28/21 11:51 PFSH ED PFSH: Medical History Anemia Carotid artery disease Cervical postlaminectomy syndrome CHF (congestive heart failure), NYHA class III Chronic low back pain Chronic venous insufficiency COPD (chronic obstructive pulmonary disease) DJD (degenerative joint disease) Gastroparesis GERD (gastroesophageal reflux disease) 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, greater than 8 weeks H/O prostate cancer High risk medication use History of nonmelanoma skin cancer History of TIA (transient ischemic attack) HTN (hypertension) Hx of cataract Hyperlipidemia Hypothyroid Immunization counseling Immunosuppression Inflammatory arthritis FUAD (obstructive sleep apnea) Osteoarthritis, generalized Positive CORBY (antinuclear antibody) EDUARDO was negative in 2013 Radiation cystitis Seronegative rheumatoid arthritis Seronegative rheumatoid arthritis of both hands Shortness of breath Undifferentiated connective tissue disease Surgical History H/O colonoscopy 2011 H/O esophagogastroduodenoscopy 2012 H/O neck surgery x 2 H/O total knee replacement right and left History of abdominal aortic aneurysm (AAA) repair History of back surgery x 7 History of cardiac cath 7 years ago nonobstructive, negative stress test 1 year ago 2019 History of hip surgery RIGHT 04/11/19 History of tonsillectomy and adenoidectomy History of total left hip arthroplasty Hx of appendectomy Hx of cholecystectomy 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 Family History Mother Bleeding disorder Other CAD (coronary artery disease) Cancer Stroke Denies family history of Anesthesia complication Social History Smoking and tobacco status: never smoked Alcohol intake: never Household members: spouse Marital status: Current occupational status: retired History of recent travel: No Course Vital Signs: Vital signs: Vital Signs Temperature 98.5 F 04/28/21 13:37 Pulse Rate 65 04/28/21 13:37 Respiratory Rate 16 04/28/21 13:37 Blood Pressure 133/78 04/28/21 13:37 Pulse Oximetry 95 04/28/21 13:37 MDM - Extremity (Nontraumatic) Medical Decision Making Patient is a nice 75-year-old male here with his for complaints of worseni ng lower extremity swelling. Patient has noticed weight gain over the past 1 to 2 weeks. His vital signs are stable. Clinically he does appear fluid overloaded although I do not know his baseline status. His BNP surprisingly is only 119. CXR shows no evidence of acute fluid overload. I spoke to Dr. Chairez who recommended 80 mg of IV Lasix and switching his medications at home from Lasix to Bumex. I have spoken to case management who was able to get patient an appointment with cardiology on Wednesday with Melba Puga for further evaluation. Chart reviewed and patient discussed with midlevel. Agree with assessment and plan. Medical Records I reviewed the patient's medical records. Lab Data I reviewed the patient's lab results. : 04/28/21 13:00 04/28/21 13:00 Radiology Impressions Chest X-Ray 04/28/21 12:29 IMPRESSION: No acute findings. Orthopedic hardware cervical and dorsal spine Laboratory Results WBC 3.0 10^3/uL (4.0-10.0) L 04/28/21 13:00 RBC 3.36 10^6/uL (4.1-5.3) L 04/28/21 13:00 Hgb 9.5 g/dL (11.7-16.6) L 04/28/21 13:00 Hct 31.4 % (42.0-52.0) L 04/28/21 13:00 MCV 93.5 fl (80-94) 04/28/21 13:00 MCH 28.3 pg (28.0-34.0) 04/28/21 13:00 MCHC 30.3 g/dL (30.0-36.0) 04/28/21 13:00 RDW 15.6 % (12.1-15.1) H 04/28/21 13:00 Plt Count 186 10^3/cmm (130-400) 04/28/21 13:00 MPV 10.0 fL (7.4-10.4) 04/28/21 13:00 Neut % (Auto) 48.8 % 04/28/21 13:00 Lymph % (Auto) 22.1 % 04/28/21 13:00 [place] % (Auto) 21.1 % 04/28/21 13:00 Eos % (Auto) 5.0 % 04/28/21 13:00 Baso % (Auto) 3.0 % 04/28/21 13:00 Neut # (Auto) 1.45 10^3/uL (1.8-7.7) L 04/28/21 13:00 Lymph # (Auto) 0.7 10^3/uL (0.8-4.8) L 04/28/21 13:00 [place] # (Auto) 0.6 10^3/uL (0.2-0.9) 04/28/21 13:00 Eos # (Auto) 0.2 10^3/uL (0.0-0.8) 04/28/21 13:00 Baso # (Auto) 0.1 10^3/uL (0.0-0.1) 04/28/21 13:00 Nucleated RBC % (auto) 0 % 04/28/21 13:00 Nucleated RBCs # 0.0 /100WBC 04/28/21 13:00 Sodium 139 mmol/L (136-145) 04/28/21 13:00 Potassium 4.2 mmol/L (3.5-5.1) 04/28/21 13:00 Chloride 105 mmol/L (98-107) 04/28/21 13:00 Carbon Dioxide 24 mmol/L (22-29) 04/28/21 13:00 Anion Gap 14.2 (5-19) 04/28/21 13:00 BUN 9 mg/dL (8-23) 04/28/21 13:00 Creatinine 0.9 mg/dL (0.7-1.2) 04/28/21 13:00 GFR Calculation Not Reportable 04/28/21 13:00 Glucose 98 mg/dL (65-115) 04/28/21 13:00 Calculated Osmolality 287 mOsm/kg (285-295) 04/28/21 13:00 Calcium 8.2 mg/dL (8.5-10.5) L 04/28/21 13:00 Total Bilirubin 0.6 mg/dL (0.15-1.2) 04/28/21 13:00 AST 24 U/L (0-40) 04/28/21 13:00 ALT 18 U/L (0-41) 04/28/21 13:00 Alkaline Phosphatase 99 IU/L (40-130) 04/28/21 13:00 Troponin T Baseline 27 ng/L (0-15) H 04/28/21 13:00 NT-Pro-B Natriuret Pep 119 pg/mL (0-450) 04/28/21 13:00 Total Protein 5.8 g/dL (6.6-8.7) L 04/28/21 13:00 Albumin 4.2 g/dL (3.5-5.2) 04/28/21 13:00 Globulin 1.6 g/dL (1.3-4.6) 04/28/21 13:00 Urine Color Yellow (Yellow) 04/28/21 12:35 Urine Appearance Clear (CLEAR) 04/28/21 12:35 Urine pH 5 (5-7) 04/28/21 12:35 Ur Specific [place] 1.030 (1.005-1.030) 04/28/21 12:35 Urine Protein Neg (Negative) 04/28/21 12:35 Urine Glucose (UA) Norm (Normal) 04/28/21 12:35 Urine Ketones Negative (Negative) 04/28/21 12:35 Urine Blood Neg (Negative) 04/28/21 12:35 Urine Nitrate Negative (Negative) 04/28/21 12:35 Urine Bilirubin Neg (Negative) 04/28/21 12:35 Urine Urobilinogen Norm mg/dL (Negative) 04/28/21 12:35 Ur Leukocyte Esterase Negative (Negative) 04/28/21 12:35 Discharge Plan Discharge Patient Disposition: Home Clinical Impression: Acute on chronic congestive heart failure Qualifiers: Heart failure type: unspecified Qualified Code(s): I50.9 - Heart failure, u nspecified Condition: Stable Prescriptions: New bumetanide 2 mg tablet 2 mg PO BID Qty: 60 0RF Continued potassium chloride 20 mEq tablet extended release 20 meq PO BID Qty: 180 3RF Discontinued furosemide 40 mg tablet 40 mg PO BID Qty: 180 3RF No Action hydrocortisone 2.5 % cream 1 applic TOPICAL BID PRN (Reason: Itching) 0RF oxybutynin chloride 5 mg tablet 5 mg PO BEDTIME 0RF ketoconazole 2 % cream 1 applic topical BID Qty: 30 1RF Rx Instructions: Apply 1-2 times daily on red, scaly areas of face mometasone 0.1 % solution 1 applic topical DAILY PRN (Reason: skin irritation) Qty: 60 3RF Rx Instructions: apply a few drops to scalp daily as needed famotidine 40 mg tablet 40 mg PO DAILY 0RF (DME) Articulating AFO See Rx Instructions .Route .MEDSUPPLY Qty: 1 0RF Rx Instructions: As directed (DME) MARK BRACE See Rx Instructions .Route .MEDSUPPLY Qty: 1 0RF Rx Instructions: As directed gabapentin 300 mg capsule 300 mg PO TID Qty: 90 4RF leflunomide [Arava] 20 mg tablet 20 mg PO DAILY Qty: 30 4RF Rx Instructions: 340 b pricing please omeprazole 40 mg capsule,delayed release(DR/EC) 40 mg PO DAILY Qty: 90 1RF prednisone 2.5 mg tablet 5 mg PO DAILY Qty: 60 4RF Actemra 162 mg/0.9 mL syringe 162 mg SUBCUT .Q7days Qty: 4 3RF aspirin 81 mg tablet,delayed release (DR/EC) 81 mg PO DAILY Qty: 90 3RF atorvastatin 40 mg tablet 40 mg PO BEDTIME Qty: 90 3RF carvedilol 25 mg tablet 25 mg PO BID Qty: 180 3RF isosorbide mononitrate 30 mg tablet extended release 24 hr 30 mg PO DAILY Qty: 90 3RF nitroglycerin [Nitrostat] 0.4 mg tablet, sublingual 0.4 mg SUBLINGUAL Q5M PRN (Reason: Chest Pain) Qty: 25 6RF tramadol [Ultram] 50 mg tablet 50 mg PO Q6H PRN (Reason: pain) 7 Days Qty: 30 0RF acetaminophen 500 mg Capsule 1,000 mg PO Q4H PRN (Reason: Pain) 0RF Vitamin D3 1 tab PO DAILY 0RF diclofenac sodium 1 % gel 4 g TOPICAL QID PRN (Reason: Pain) 0RF levothyroxine [Synthroid] 137 mcg tablet 125 mcg PO DAILY 0RF Rx Instructions: PT STATES THIS MEDICATION MUST BE SYNTHROID, NOT LEVOTHYROXINE. liothyronine 5 mcg tablet 10 mcg PO DAILY 0RF Discharge Orders: Discharge ED (Routine); Ordered 04/28/21 Ordered By: Kat Tapia Referrals: Marsha Turner MD [Primary Care Provider] - Melba Puga FNP [Nurse Practitioner] - 04/30/21 10:15 am Activity Restrictions/Additional Instructions: You have an appointment at the cardiology clinic with Melba Puga NP on Sunday 04/30 at 10:15 for further evaluation. As we discussed please discontinue your Lasix. We are starting you on Bumex 2 mg twice daily. Please fill this medication and started immediately. Continue taking your daily pot assium. Coding Level of Care Code ED Fitness Centre Manager for Chg Fwd Exam Detailed
--- NOTE | 2021-04-28 12:29 | XRR_ITS ---
PROCEDURE INFORMATION: Exam: XR Chest Exam date and time: 04/28/2021 12:29 PM Age: 75 years old Clinical indication: Shortness of breath; Additional info: SOB TECHNIQUE: Imaging protocol: XR of the chest. Views: 1 view. COMPARISON: CR XR chest 1V portable [id number] 02/25/2021 5:06 PM FINDINGS: Lungs: Unremarkable. No consolidation. Pleural spaces: Unremarkable. No pleural effusion. No pneumothorax. Heart/Mediastinum: Unremarkable. No cardiomegaly. Bones/joints: Surgical hardware is seen in the cervical spine and lower dorsal spine XR/XR chest 1V portable [id number] IMPRESSION: No acute findings. Orthopedic hardware cervical and dorsal spine
--- NOTE | 2021-04-28 12:30 | ECG_ITS ---
[facility] Test Date: 2021-04-28 Pat Name: Kojo Marinelli Department: Room: Gender: Male Membership Sales Advisor: : 1945 Requested By: Kat Tapia Order Number: [id number] Tessa MD: Dario Nuñez M.D. Measurements Intervals [place] Rate: 67 P: 95 [place]: 209 QRS: -54 QRSD: 130 T: 42 QT: 425 QTc: 449 Interpretive Statements SINUS RHYTHM LEFT ANTERIOR FASCICULAR BLOCK [QRS AXIS <= -45, QR IN I, RS IN II] MINIMAL VOLTAGE CRITERIA FOR LVH, CONSIDER NORMAL VARIANT [MEETS CRITERIA IN ONE OF: R(aVL), S(V1), R(V5), R(V5/V6)+S(V1)] POSSIBLE ANTEROSEPTAL MYOCARDIAL INFARCTION , PROBABLY OLD [30 ms Q WAVE IN V1-V4] Compared to ECG 02/25/2021 18:12:18 No significant changes Electronically Signed On 04-28-2021 18:06:55 OIL TRUCK DRIVER by Dario Nuñez M.D. [id number]
[2021-04-28 13:14] LABS: Basophils # 0.1 10^3/uL (0.0-0.1); Eosinophils # 0.2 10^3/uL (0.0-0.8); Hematocrit 31.4 % (42.0-52.0); Hemoglobin 9.5 g/dL (11.7-16.6); Lymphocytes # 0.7 10^3/uL (0.8-4.8); Lymphocytes % 22.1 %; Mean Corpuscular HGB Conc 30.3 g/dL (30.0-36.0); Mean Corpuscular Hemoglobin 28.3 pg (28.0-34.0); Mean Corpuscular Volume 93.5 fl (80-94); Monocytes # 0.6 10^3/uL (0.2-0.9); Monocytes % 21.1 %; Neutrophils # 1.45 10^3/uL (1.8-7.7); Neutrophils % 48.8 %; Nucleated Red Blood Cells % 0 %; Platelet Count 186 10^3/cmm (130-400); Red Blood Count 3.36 10^6/uL (4.1-5.3); Red Cell Distribution Width 15.6 % (12.1-15.1)
[2021-04-28 13:25] LABS: Add Urine Microscopic? NO; Charge for UA Resulting for Rev
[2021-04-28 13:37] VITALS: BP 133/78; PULSE 65; RESP 16; TEMP 36.9; O2SAT 95
[2021-04-28 13:41] LABS: Bilirubin Urine Neg (Negative); Blood Urine Neg (Negative); Glucose Urine UA Norm (Normal); Ketones Urine Negative (Negative); Leukocyte Esterase Urine Negative (Negative); Nitrate Urine Negative (Negative); Protein Urine Neg (Negative); Urine Appearance Clear (CLEAR); Urine Color Yellow (Yellow); Urobilinogen Urine Norm (Negative); pH Urine 5 (5-7)
[2021-04-28 13:50] LABS: Troponin(5th) Baseline 27 ng/L (0-15)
[2021-04-28 13:57] LABS: Alanine Aminotransferase 18 U/L (0-41); Albumin Level 4.2 g/dL (3.5-5.2); Alkaline Phosphatase 99 IU/L (40-130); Anion Gap 14.2 (5-19); Aspartate Amino Transferase 24 U/L (0-40); Blood Urea Nitrogen 9 mg/dL (8-23); Calcium 8.2 mg/dL (8.5-10.5); Carbon Dioxide 24 mmol/L (22-29); Chloride 105 mmol/L (98-107); Globulin 1.6 g/dL (1.3-4.6); Glucose 98 mg/dL (65-115); NT Pro B Type Natriuretic Pept 119 pg/mL (0-450); Osmolality Calculated 287 mOsm/kg (285-295); Potassium 4.2 mmol/L (3.5-5.1); Sodium 139 mmol/L (136-145); Total Bilirubin 0.6 mg/dL (0.15-1.2); Total Protein 5.8 g/dL (6.6-8.7)
[2021-04-28] MEDS: potassium chloride ER 20 mEq Tablet PO (14:30)
[2021-04-28] MEDS: FUROsemide 10 mg/mL SDV 10mL 80 MG IVP (14:40)
--- NOTE | 2021-04-28 14:46 | DCPLANNER ---
Addendum entered by Emilia Lawrence 05/09/21 10:46: Patient had a follow up appointment scheduled for 04.30.21 with [facility] - patient did attend appointment. Original Note: resolution manager was asked to schedule a follow up appointment for patient with [facility]. resolution manager called [facility], spoke with Karely, gave clinic patients information. A follow up appointment was scheduled for Wednesday, April 30, 2021 at 10:15 with MOTOR VEHICLE LICENCE EXAMINER, Melba Puga. resolution manager informed ED physician that appointment was scheduled for patient.
== END 2021-04-28 14:55 | disposition home or self-care (01) ==
PROVIDERS: Emergency Provider Physician Assistant; PCP Internal Medicine
DX: I11.0 Hypertensive heart disease with heart failure (principal); I50.9 Heart failure, unspecified; Z79.82 Long term (current) use of aspirin; J44.9 Chronic obstructive pulmonary disease, unspecified; I25.2 Old myocardial infarction; Z85.46 Personal history of malignant neoplasm of prostate; Z86.73 Personal history of transient ischemic attack (TIA), and cerebral infarction without residual deficits; E78.5 Hyperlipidemia, unspecified
CPT/HCPCS: 71045; 80053; 81003; 83880; 84484; 85025; 93005; 96374; 96375; 99284; J1940

== ENCOUNTER → 2021-05-06 08:50 | Outpatient (BNVA) | payer MEDICARE, OTHER, SELFPAY | PROVIDERS: PCP Internal Medicine; Visit Provider Internal Medicine Cardiovascular Disease | DX: I50.9 Heart failure, unspecified (principal); Z13.228 Encounter for screening for other metabolic disorders; R73.9 Hyperglycemia, unspecified | CPT/HCPCS: 80048; 83880 ==

== ENCOUNTER 2021-05-20 12:24 | Outpatient (CLI) | payer MEDICARE, OTHER, SELFPAY ==
--- NOTE | 2021-05-20 12:30 | USCV_ITS ---
Kojo Marinelli Age: 75 Gender: M : 1945 Exam Date: 05/20/2021 12:50 Ordering Phys: Naz Russ MD ([email or web address]) Technologist: Nathan Muro [place] [facility] [place] HISTORY: PROCEDURES: FINDINGS: There is no evidence of bilateral deep vein thrombosis. No evidence of superficial thrombosis in the bilateral saphenous system. No venous reflux noted in the bilateral small saphenous vein. There appears to be reflux noted in the right popliteal vein. No other evidence of reflux noted in the remainder of the deep venous system. There appears to be reflux noted in the right SFJ, GSV DIST TO SFJ, GSV PROX, GSV MID, GSV DIST, AND GSV BELOW KNEE. There appears to be reflux noted in the left GSV DIST TO SFJ, GSV PROX, GSV MID, GSV DIST, and GSV BELOW KNEE. CONCLUSIONS 1. No significant venous reflux(greater than 1000 msec) were noted in the deep veins. 2. Significant venous reflux of greater than 500 ms were noted, throughout the greater saphenous vein segments on the right side including the saphenofemoral junction. These veins were found to be greater than 1 cm deep from the surface and having a diameter of .44 to 0.64 cm. 3. On the left side, significant venous reflux of greater than 500 ms were noted throughout the greater saphenous vein segments excluding the saphenofemoral junction. These venous segments were greater than 1 cm deep from the surface and was measuring anywhere from 0.36 to 0.58 cm in diameter 4. No significant venous reflux were noted in the small saphenous veins bilaterally Dr Priyanka Rivas MD [facility] (Electronically Signed) Final Date: 22 May 2021 16:28 S
== END 2021-05-20 12:25 | disposition home or self-care (01) ==
LOC: RAD 12:26
PROVIDERS: PCP Internal Medicine; Visit Provider Internal Medicine Cardiovascular Disease
DX: I83.891 Varicose veins of right lower extremity with other complications (principal); I83.892 Varicose veins of left lower extremity with other complications; I87.2 Venous insufficiency (chronic) (peripheral)
CPT/HCPCS: 93970

== ENCOUNTER → 2021-05-22 12:44 | Outpatient (BNVA) | payer MEDICARE, OTHER, SELFPAY | PROVIDERS: PCP Internal Medicine; Visit Provider Thoracic Surgery (Cardiothoracic Vascular Surgery) | DX: I87.2 Venous insufficiency (chronic) (peripheral) (principal) | CPT/HCPCS: 99203 ==

== ENCOUNTER → 2021-05-28 12:44 | Outpatient (BNVA) | payer MEDICARE, OTHER, SELFPAY | PROVIDERS: PCP Internal Medicine; Visit Provider Internal Medicine Rheumatology | DX: M06.00 Rheumatoid arthritis without rheumatoid factor, unspecified site (principal); R76.8 Other specified abnormal immunological findings in serum; M15.9 Polyosteoarthritis, unspecified; Z79.899 Other long term (current) drug therapy; I87.2 Venous insufficiency (chronic) (peripheral); I50.9 Heart failure, unspecified; Z96.643 Presence of artificial hip joint, bilateral; Z98.890 Other specified postprocedural states; Z71.89 Other specified counseling | CPT/HCPCS: 99214 ==

== ENCOUNTER → 2021-05-29 10:21 | Outpatient (BNVA) | payer MEDICARE, OTHER, SELFPAY | PROVIDERS: PCP Internal Medicine; Visit Provider Orthopaedic Surgery | DX: Z48.89 Encounter for other specified surgical aftercare (principal); Z98.1 Arthrodesis status | CPT/HCPCS: 72070; 72100 ==

== ENCOUNTER 2021-06-17 15:14 | Outpatient (CLI) | payer MEDICARE, OTHER, SELFPAY ==
--- NOTE | 2021-06-17 15:28 | XR_ITS ---
WS: [id number] XR KUB [id number] REASON FOR EXAM: FLANK PAIN, LEFT FINDINGS: No urinary tract calculi are identified. No free air or retroperitoneal air. Unremarkable bowel gas pattern. No mass identified. Extensive postoperative changes in the lumbar spine with pedicle screws and rods. XR/XR KUB [id number] IMPRESSION: No acute abnormality identified.
== END 2021-06-17 15:15 | disposition home or self-care (01) ==
LOC: RAD 15:18
PROVIDERS: PCP Internal Medicine; Visit Provider Nurse Practitioner Family
DX: R10.9 Unspecified abdominal pain (principal)
CPT/HCPCS: 74018

== ENCOUNTER 2021-06-19 06:16 | Outpatient (CLI) | payer MEDICARE, OTHER, SELFPAY ==
--- NOTE | 2021-06-19 07:15 | USCV_ITS ---
Yves Kojo Age: 75 Gender: M : 1945 Exam Date: 06/19/2021 06:26 Ordering Phys: Alec Cedillo MD Technologist: DON [place] [facility] [place] HE[place] FAILURE BP: 125 / 80 HR: 64 Rhythm: Sinus Technical Quality: Technically difficult study MEASUREMENTS (Male / Female) Normal Values 2D ECHO LV Diastolic Diameter PLAX 4.4 cm 4.2 - 5.9 / 3.9 - 5.3 cm LV Systolic Diameter PLAX 2.9 cm IVS Diastolic Thickness 1.9 cm 0.6 - 1.0 / 0.6 - 0.9 cm IVS Systolic Thickness 2.0 cm LVPW Diastolic Thickness 1.3 cm 0.6 - 1.0 / 0.6 - 0.9 cm LVPW Systolic Thickness 2.2 cm LVOT Diameter 2.0 cm LV Ejection Fraction 2D Teich 62.9 % LV Ejection Fraction MOD 2C 54.5 % LV Ejection Fraction 2C AL 56.1 % LA Diameter 3.1 cm LA Width 3.8 cm LA Height 5.2 cm RA Width 3.4 cm RA Height 4.8 cm Aorta at Sinotubular Diameter 3.0 cm M-MODE Aortic Annulus Diameter 3.1 cm LA Ao Ratio MM 1.0 MV E Point Septal Separation 0.3 cm DOPPLER AV Peak Velocity 124.0 cm/s LVOT Peak Velocity 75.0 cm/s AV Area Cont Eq vti 2.6 cm squared AV Area Cont Eq pk 1.9 cm squared MV Peak Velocity 89.0 cm/s MV Area PHT 2.8 cm squared Mitral E to A Ratio 1.0 MV E' Velocity 43.0 cm/s Mitral E to MV E' Ratio 7.7 Mitral E to LV E' Lateral Ratio 7.5 Mitral E to LV E' Septal Ratio 7.9 TR Peak Velocity 234.8 cm/s TR Peak Gradient 22.1 mmHg TR Mean Velocity 209.3 cm/s TR Mean Gradient 17.9 mmHg TR Velocity Time Integral 85.5 cm TV Peak E Velocity 67.0 cm/s Right Atrial Pressure 3.0 mmHg Pulmonary Artery Systolic Pressu 25.1 mmHg PV Peak Velocity 92.0 cm/s RV Acceleration Time 0.0 s RV Ejection Time 0.3 s RV AcT/ET 0.1 FINDINGS Left Ventricle Normal left ventricular size and systolic function, EF 56 %. No regional wall motion abnormalities. Mild left ventricular hypertrophy. Right Ventricle The right ventricle is normal in size and function. Right Atrium The right atrium is normal in size. Left Atrium The left atrium is normal in size. Mitral Valve No gross abnormalities noted Aortic Valve Thickened aortic valve. Tricuspid Valve Tricuspid valve not well visualized. Trace tricuspid valve regurgitation. Estimated pulmonary artery peak systolic pressure of 25 mmHg Pulmonic Valve Pulmonic valve not well visualized. Pericardium Normal pericardium without effusion. Aorta Normal ascending aorta dimension. CONCLUSIONS Normal left ventricular size and systolic function, EF 56 %. No regional wall motion abnormalities. Mild left ventricular hypertrophy. Minimally thickened aortic valve Estimated pulmonary artery peak systolic pressure of 25 mmHg- this could be an underestimation because of the poor Doppler signals. There is no pericardial effusion. Technically difficult study because of the poor ultrasonic window. Compared to the study from 07/03/2020, there may not be a significant change Dr Priyanka Rivas MD FACC (Electronically Signed) Final Date: 19 June 2021 14:08 S
== END 2021-06-19 06:17 | disposition home or self-care (01) ==
LOC: RAD 06:18
PROVIDERS: PCP Internal Medicine Cardiovascular Disease; Visit Provider Internal Medicine Rheumatology
DX: I50.9 Heart failure, unspecified (principal); I35.8 Other nonrheumatic aortic valve disorders
CPT/HCPCS: 93306

== ENCOUNTER → 2021-07-08 13:57 | Outpatient (BNVA) | payer MEDICARE, OTHER, SELFPAY | PROVIDERS: PCP Internal Medicine Cardiovascular Disease; Visit Provider Internal Medicine Cardiovascular Disease | DX: I87.2 Venous insufficiency (chronic) (peripheral) (principal); I11.0 Hypertensive heart disease with heart failure; I50.9 Heart failure, unspecified; R60.0 Localized edema; G47.30 Sleep apnea, unspecified; I95.1 Orthostatic hypotension; E86.1 Hypovolemia; Z79.82 Long term (current) use of aspirin | CPT/HCPCS: 99214 ==

== ENCOUNTER → 2021-07-10 10:04 | Outpatient (BNVA) | payer MEDICARE, OTHER, SELFPAY | PROVIDERS: PCP Internal Medicine Cardiovascular Disease; Visit Provider Orthopaedic Surgery | DX: M48.062 Spinal stenosis, lumbar region with neurogenic claudication (principal); Z47.89 Encounter for other orthopedic aftercare; Z98.1 Arthrodesis status | CPT/HCPCS: 72072; 72100; 99213 ==

== ENCOUNTER 2021-08-07 12:23 | Outpatient (RCR) | payer MEDICARE, OTHER, SELFPAY | END 2021-08-12 23:59 | disposition home or self-care (01) | LOC: SPT 12:23 | PROVIDERS: PCP Internal Medicine Cardiovascular Disease; Referring Provider Orthopaedic Surgery; Visit Provider Orthopaedic Surgery | DX: Z47.89 Encounter for other orthopedic aftercare (principal); M54.9 Dorsalgia, unspecified; M62.81 Muscle weakness (generalized) | CPT/HCPCS: 97162 ==

== ENCOUNTER 2021-08-13 06:00 | Outpatient (RCR) | payer MEDICARE, OTHER, SELFPAY | END 2021-09-11 23:59 | disposition home or self-care (01) | LOC: SPT 06:00 | PROVIDERS: PCP Internal Medicine Cardiovascular Disease; Referring Provider Orthopaedic Surgery; Visit Provider Orthopaedic Surgery | DX: M54.40 Lumbago with sciatica, unspecified side (principal); R53.1 Weakness | CPT/HCPCS: 97110 ==

== ENCOUNTER → 2021-08-28 08:41 | Outpatient (BNVA) | payer MEDICARE, OTHER, SELFPAY | PROVIDERS: PCP Internal Medicine; Visit Provider Specialist | DX: Z96.653 Presence of artificial knee joint, bilateral (principal); M25.561 Pain in right knee; M25.562 Pain in left knee; Z98.1 Arthrodesis status; R53.1 Weakness | CPT/HCPCS: 73560; 73565; 99213 ==

== ENCOUNTER → 2021-09-11 09:31 | Outpatient (BNVA) | payer MEDICARE, OTHER, SELFPAY | PROVIDERS: PCP Internal Medicine; Visit Provider Anesthesiology Pain Medicine | DX: M48.062 Spinal stenosis, lumbar region with neurogenic claudication (principal); M79.604 Pain in right leg; M79.605 Pain in left leg; Z79.891 Long term (current) use of opiate analgesic | CPT/HCPCS: 99205 ==

== ENCOUNTER 2021-09-12 06:00 | Outpatient (RCR) | payer MEDICARE, OTHER, SELFPAY | END 2021-10-12 23:59 | disposition home or self-care (01) | LOC: SPT 06:00 | PROVIDERS: PCP Internal Medicine; Referring Provider Orthopaedic Surgery; Visit Provider Orthopaedic Surgery | DX: M25.561 Pain in right knee (principal) | CPT/HCPCS: 97110; 97164 ==

== ENCOUNTER 2021-09-29 11:29 | Outpatient (CLI) | payer MEDICARE, OTHER, SELFPAY ==
--- NOTE | 2021-09-29 11:40 | CT_ITS ---
WS: [id number] CT ABDOMEN AND PELVIS WITH CONTRAST HISTORY: WEIGHT LOSS/ RUQ ABD PAIN TECHNIQUE: Imaging performed of the abdomen and pelvis with IV contrast. Single phase imaging of the abdomen. Coronal and sagittal reformats are submitted. All CT scans at [facility] use at [address] one of these dose optimization techniques: automated exposure control; mA and/or kV adjustment per patient size (includes targeted exams where dose is matched to clinical indication); or iterative re construction. IV CONTRAST: Omnipaque 350; 95 mL IV. Oral contrast: Yes. DLP: 1329.73 mGy.cm COMPARISON: 02/06/2020 Lower thorax: Mild groundglass attenuation at the lung bases. Mild enlarged heart. Small hiatal herni a. Liver/biliary system: Normal size with no intrahepatic dilatation. Gallbladder: Status post cholecystectomy. No bile duct dilatation. Pancreas: Normal size pancreas and pancreatic duct. No adjacent inflammation. Spleen: Normal size spleen. No mass or infarct. Adrenal glands: Normal. Right kidney: 10 mm cyst posterior RIGHT kidney. No obstruction. Left kidney: Low-attenuation mass medial LEFT kidney measures 3.8 x 5.0 cm and was also described on the prior study from 2019 with only minimal increase in size. No obstruction. Aorta: Mild atherosclerosis with no aneurysm. Lymphadenopathy: None. Free fluid: None. GI tract: Normally distended stomach. No small bowel obstruction. Mild diffuse fecal retention and co nstipation. No mucosal or submucosal wall thickening. Prior appendectomy. Abdominal wall: Unremarkable abdominal wall. No hernia. Pelvis: Penile implant with reservoir reidentified. No adenopathy or fluid in the pelvis. Urinary molly dder is negative. Bones: Extensive thoracic, lumbar and pelvic fusion hardware. Postoperative fluid collection along th e surgical hardware site. Collection new since the prior study but there is also no new extensive ladan dware present. Postoperative fluid collection extends over length of 16 cm and a width of 4 cm. Bilat eral hip arthroplasties. CT/CT abdomen pelvis w con* [id number] IMPRESSION: 1. No acute abdominal or pelvic abnormalities are identified. 2. Prior cholecystectomy and appendectomy. 3. Bilateral renal cysts. 4. Extensive thoracic, lumbar and pelvic fusion hardware. Postoperative fluid collection extends from T12 to L5 over a length of 16 cm x 4.0 cm. No adjacent inflammation therefore this is probably a sterile postoperative collection. Pos tsurgical abscess thought to be less likely.
[2021-09-29] MEDS: barium sulfate 450 mL Oral Susp PO (12:44)
[2021-09-29] MEDS: iohexol 350 mg/mL 100 mL Btl IV (13:30)
== END 2021-09-29 11:30 | disposition home or self-care (01) ==
LOC: RAD 11:30
PROVIDERS: PCP Internal Medicine; Visit Provider Internal Medicine
DX: R63.4 Abnormal weight loss (principal); R10.11 Right upper quadrant pain
CPT/HCPCS: 74177

== ENCOUNTER → 2021-10-01 12:42 | Outpatient (BNVA) | payer MEDICARE, OTHER, SELFPAY | PROVIDERS: PCP Internal Medicine; Visit Provider Internal Medicine Rheumatology | DX: M06.00 Rheumatoid arthritis without rheumatoid factor, unspecified site (principal); Z79.899 Other long term (current) drug therapy; R76.8 Other specified abnormal immunological findings in serum; R60.0 Localized edema; Z98.1 Arthrodesis status; Z96.653 Presence of artificial knee joint, bilateral; Z96.643 Presence of artificial hip joint, bilateral; K31.84 Gastroparesis; K21.9 Gastro-esophageal reflux disease without esophagitis; E03.9 Hypothyroidism, unspecified; G62.9 Polyneuropathy, unspecified; I25.10 Atherosclerotic heart disease of native coronary artery without angina pectoris; I65.29 Occlusion and stenosis of unspecified carotid artery; I48.91 Unspecified atrial fibrillation; R42 Dizziness and giddiness; Z86.73 Personal history of transient ischemic attack (TIA), and cerebral infarction without residual deficits; Z86.718 Personal history of other venous thrombosis and embolism; Z71.89 Other specified counseling | CPT/HCPCS: 99214 ==

== ENCOUNTER → 2021-10-07 08:20 | Outpatient (BNVA) | payer MEDICARE, OTHER, SELFPAY | PROVIDERS: PCP Internal Medicine; Visit Provider Orthopaedic Surgery | DX: M54.50 Low back pain, unspecified (principal); R10.9 Unspecified abdominal pain; Z98.1 Arthrodesis status; M47.816 Spondylosis without myelopathy or radiculopathy, lumbar region; I11.0 Hypertensive heart disease with heart failure; I50.9 Heart failure, unspecified; I95.1 Orthostatic hypotension; G47.30 Sleep apnea, unspecified; I71.2 Thoracic aortic aneurysm, without rupture; E78.5 Hyperlipidemia, unspecified; R94.31 Abnormal electrocardiogram [ECG] [EKG] | CPT/HCPCS: 36415; 72100; 80048; 83880; 93005; 99214 ==

== ENCOUNTER 2021-10-27 05:50 | Day surgery (SDC) | payer MEDICARE, OTHER, SELFPAY ==
[2021-10-22 10:26] VITALS: BMI 38.0
--- NOTE | 2021-10-22 11:00 | ANES.PREANE2 ---
Pre-Anesthetic Assessment Height/Weight: Height 1.78 m Weight 120.202 kg Preop Diagnosis: ddd Lumbar spine, Chronic Back pain; failed back surgery Operation Date: 10/27/21 07:00 Proposed Procedures p Incision & Drainage Lower Extremity lumbar spine (Not Applicable) - Enrike Delarosa, DO Familial anesthetic complications: None Social No alcohol and No tobacco Exam alert, oriented x 3, clear to auscultation bilaterally and regular rate & rhythm Airway Mallampati: Class III Dentition: false Pulmonary Chronic Obstructive Pulmonary Disease and Sleep Apnea CV/HEM Anemia, Congestive Heart Failure, Hypertension and Myocardial Infarction REceived cardiac clearance from Dr. Rivas Thoracic aortic aneurysm 06/19/21 Echo ?Normal left ventricular size and systolic function, EF 56 %. No ?regional wall motion abnormalities. Mild left ventricular ?hypertrophy. ?Minimally thickened aortic valve ? Estimated pulmonary artery peak systolic pressure of 25 mmHg- ?this could be an underestimation because of the poor Doppler ?signals. ?There is no pericardial effusion. ?Technically difficult study because of the poor ultrasonic ?window. ?Compared to the study from 07/03/2020, there may not be a ?significant change GI Gastroesophageal Reflux Disease ? gastroparesis Metabolic Thyroid Disease [facility] [place] Osteoarthritis/DJD Neuropsych Transient Ischemic Attack hx carotid artery stenosis, no interventions required Anesthetic Plan ASA status: 4 Anesthesia: General Risk of > 500 ml blood loss (7ml/kg in children): No Medications/Allergies Home Medications Medication Instructions Recorded Confirmed Last Taken Type hydrocortisone 2.5 % topical cream 1 applic topical BID PRN Itching 03/21/19 10/22/21 04/04/19 History oxybutynin chloride 5 mg tablet 5 mg PO BEDTIME 03/21/19 10/22/21 02/16/21 History levothyroxine 137 mcg tablet 125 mcg PO DAILY 04/11/19 10/22/21 02/16/21 History (Synthroid) liothyronine 5 mcg tablet 10 mcg PO DAILY 07/20/19 10/22/21 02/16/21 History acetaminophen 500 mg capsule 1,000 mg PO Q4H PRN Pain 02/06/20 10/22/21 02/05/20 History ketoconazole 2 % topical cream 1 applic topical BID #30 grams 06/27/20 10/22/21 12/16/20 20:30 Rx mometasone 0.1 % topical solution 1 applic topical DAILY PRN skin 06/27/20 10/22/21 Unknown Rx irritation #60 mL MARK BRACE #1 ea 08/01/20 10/08/21 Unknown Rx diclofenac sodium 1 % topical gel 4 g topical QID PRN Pain 02/13/21 10/22/21 Unknown History aspirin 81 mg tablet,delayed 81 mg PO DAILY #90 tabs 03/24/21 10/22/21 10/20/21 Rx release atorvastatin 40 mg tablet 40 mg PO BEDTIME #90 tabs 03/24/21 10/22/21 Unknown Rx carvedilol 25 mg tablet 25 mg PO BID #180 tabs 03/24/21 10/22/21 Unknown Rx isosorbide mononitrate 30 mg 30 mg PO DAILY #90 tabs 03/24/21 10/22/21 Unknown Rx tablet,extended release 24 hr nitroglycerin 0.4 mg sublingual 0.4 mg sublingual Q5M PRN Chest 03/24/21 10/22/21 Unknown Rx tablet (Nitrostat) Pain #25 tabs potassium chloride 20 mEq 20 meq PO BID #180 tabs 03/24/21 10/22/21 Unknown Rx tablet,extended release gabapentin 300 mg capsule 300 mg PO TID #90 caps 05/28/21 10/22/21 Unknown Rx tocilizumab 162 mg/0.9 mL 162 mg (0.9 mL) SUBCUT .Q7days #4 09/24/21 10/22/21 Unknown Rx subcutaneous syringe (Actemra) mL leflunomide 20 mg tablet (Arava) 20 mg PO DAILY #90 tabs 10/01/21 10/22/21 Unknown Rx omeprazole 40 mg capsule,delayed 40 mg PO DAILY #90 caps 10/01/21 10/22/21 Unknown Rx release prednisone 5 mg tablet 5 mg PO DAILY #90 tabs 10/01/21 10/22/21 Unknown Rx bumetanide 2 mg tablet 2 mg PO DAILY 10/22/21 10/22/21 Unknown History Allergies Allergy/AdvReac Type Severity Reaction Status Date / Time metoclopramide [From Reglan] Allergy Unknown Verified 10/22/21 10:16 morphine Allergy ALGY-Hives Verified 10/22/21 10:16 tamsulosin [From Flomax] Allergy ADR/ALGY-Hy Verified 10/22/21 10:16 potension zolpidem [From Ambien] Allergy Unknown Verified 10/22/21 10:16 hydrocodone AdvReac Mild Hypotension Verified 10/22/21 10:16 oxycodone AdvReac Mild Hypotension Verified 10/22/21 10:16 paper tape Allergy tears skin Uncoded 10/07/21 09:17 off [facility] Anesthesia Medical History Anemia Carotid artery disease Cervical postlaminectomy syndrome CHF (congestive heart failure), NYHA class III Chronic low back pain Chronic venous insufficiency COPD (chronic obstructive pulmonary disease) DJD (degenerative joint disease) Gastroparesis GERD (gastroesophageal reflux disease) 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, greater than 8 weeks H/O prostate cancer High risk medication use History of nonmelanoma skin cancer History of TIA (transient ischemic attack) HTN (hypertension) Hx of cataract Hyperlipidemia Hypothyroid Immunization counseling Immunosuppression Inflammatory arthritis FUAD (obstructive sleep apnea) Osteoarthritis, generalized Positive CORBY (antinuclear antibody) EDUARDO was negative in 2013 Radiation cystitis Seronegative rheumatoid arthritis Seronegative rheumatoid arthritis of both hands Shortness of breath Undifferentiated connective tissue disease Surgical History H/O colonoscopy 2011 H/O esophagogastroduodenoscopy 2012 H/O neck surgery x 2 H/O total knee replacement right and left History of abdominal aortic aneurysm (AAA) repair History of back surgery x 7 History of cardiac cath 7 years ago nonobstructive, negative stress test 1 year ago 2019 History of hip surgery RIGHT 04/11/19 History of tonsillectomy and adenoidectomy History of total left hip arthroplasty Hx of appendectomy Hx of cholecystectomy 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 Family History Mother Bleeding disorder Clotting disorder CAD (coronary artery disease) 60s Cancer Stroke Father CAD (coronary artery disease) 80 Dementia Daughter Chronic kidney disease (CKD) Brother CAD (coronary artery disease) [facility] Cancer Denies family history of Diabetes Suicide Anesthesia complication Lung disease Social History Smoking and tobacco status: never smoked Alcohol intake: never Household members: spouse Marital status: Current occupational status: retired History of recent travel: No Special danny needs: No Agree to transfusion: Yes Data Anesthesia Cardiac Studies: Echocardiogram 06/19/21 Echocardiogram Ultrasound 07/03/20 Sestamibi Stress Test (Cardiology) 12/03/20
[2021-10-22 12:13] LABS: Basophils # 0.1 10^3/uL (0.0-0.1); Basophils % 1.6 %; Eosinophils # 0.1 10^3/uL (0.0-0.8); Eosinophils % 1.3 %; Hematocrit 30.6 % (42.0-52.0); Hemoglobin 9.5 g/dL (11.7-16.6); Lymphocytes # 0.5 10^3/uL (0.8-4.8); Lymphocytes % 10.1 %; Mean Corpuscular Volume 96.5 fl (80-94); Mean Platelet Volume 10.3 fL (7.4-10.4); Monocytes # 0.6 10^3/uL (0.2-0.9); Neutrophils # 3.29 10^3/uL (1.8-7.7); Neutrophils % 73.8 %; Nucleated Red Blood Cells % 0 %; Platelet Count 194 10^3/cmm (130-400); Red Blood Count 3.17 10^6/uL (4.1-5.3); Red Cell Distribution Width 15.7 % (12.1-15.1); White Blood Count 4.5 10^3/uL (4.0-10.0)
[2021-10-27] VITALS (12 sets, daily range): BP systolic 113–157; BP diastolic 76–91; PULSE 57–77; RESP 12–21; TEMP 36.1–36.6; O2SAT 93–98
[2021-10-27] MEDS: sodium chloride 0.9% 1,000 ML 30 ML IV (06:26)
--- NOTE | 2021-10-27 06:47 | W.PM.OPSUD ---
Surgery/Procedure H&P Update DATE OF PROCEDURE: October 27, 2021 DATE H&P PERFORMED: 10/07/21 H&P UPDATE INFORMATION: I have reviewed H&P completed within last 30 days, I have examined patient prior to procedure and No changes to prior documentation PREOP DIAGNOSIS: Seroma Lumbar spine PLANNED PROCEDURE: Operation Date: 10/27/21 07:00 Proposed Procedures p Incision & Drainage Lower Extremity lumbar spine 23055(Not Applicable) - Enrike Delarosa DO
[2021-10-27] MEDS: clindamycin 900 MG/50 ML PREMIX 100 MG IV (06:56)
[2021-10-27] MEDS: vancomycin 1,000 MG SDV 1000 MG XX (07:37)
--- NOTE | 2021-10-27 08:12 | P.OP_ITS ---
Operative Report Date of procedure: October 27, 2021 Pre-op diagnosis: Preop Diagnosis Seroma Lumbar spine Post-op diagnosis: same Procedure done: 1. Irrigation and debridement of seroma of thoracolumbar spine (8in x 3 in x 6 in) Surgeon: Enrike Delarosa Physician/Ophthalmologist: Cortes Eller Physician/Ophthalmologist: The surgical first assistant, Cortes Eller, TREVA was needed for his expertise under the microscope. He was important and necessary throughout the procedure to complete in a safe and timely manner. He assisted with patient positioning prepping and draping tissue retraction suctioning of the operative field protection of the dural sac and tissue closure Estimated blood loss (mL): 5 Procedure: 1. Irrigation and debridement of seroma of thoracolumbar spine (8in x 3 in x 6 in) Patient was brought to the operative suite after undergoing anesthesia was placed in the prone position all areas impingement were well-padded. She was prepped and draped normal sterile fashion. Skin screws made using previous skin incision. Once the subcutaneous tissue was cut there is a seroma. It tracked down deep did not appear to be infected. The entire extent of the wound was opened up from 8 inches long approximately 3 inches wide and 6 inches deep. The wound was irrigated with 2 L of saline. Cultures were taken. The tissues were scraped with a curette and divided. To bleeding tissue. Vancomycin powder was then placed wound was closed in a layered fashion with 0 Vicryl 2-0 Vicryl and nylon suture for skin. Sterile dressings were applied patient was transferred to the PACU in stable condition.
--- NOTE | 2021-10-27 08:17 | P.ANESUD_ITS ---
Pre-Anesthetic Update Pre-Anesthetic Assessment: Date of Surgery/Procedure: 10/27/21 Preop Deborah gnosis: Seroma Lumbar spine Proposed Procedure: Operation Date: 10/27/21 07:00 Proposed Procedures p Incision & Drainage Lower Extremity lumbar spine 41158(Not Applicable) - Enrike Delarosa, DO Any changes to Pre-Anesthetic Assessment?: No Last Intake: Intake Last Liquid Date 10/26/21 Last Liquid Time 20:00 Last Solid Date 10/26/21 Last Solid Time 18:00 Vitals: Temperature 97.9 F 10/27/21 06:07 Temperature Source Temporal Artery S can 10/27/21 06:07 Pulse Rate 77 10/27/21 06:07 Respiratory Rate 18 10/27/21 06:07 Blood Pressure 121/91 10/27/21 06:07 Blood Pressure Pinky n 101 10/27/21 06:07 Pulse Oximetry 94 10/27/21 06:07 Oxygen Delivery Me thod 10/27/21 06:07 Exam: Pre-Anes Outpt Exam: alert, oriented x 3, clear to auscultation bilaterally and regular rate & rhythm Cardiac Studies: Echocardiogram 06/19/21 Echocardiogram Ultrasound 07/03/20 Sestamibi Stress Test (Cardiology) 12/03
--- NOTE | 2021-10-27 08:27 | P.PCN_ITS ---
PACU note Narrative: VSS, Good respiratory effort, report to SURGICAL SUPPLIES STERILIZER Exam: awake
--- NOTE | 2021-10-27 08:27 | PM.PACU ---
PACU note Narrative: VSS, Good respiratory effort, report to REVISING CLERK Exam: awake
[2021-10-27] MEDS: fentaNYL 50 mcg/mL INJ 2mL IVP ×2 (08:29→08:37)
--- NOTE | 2021-10-27 13:04 | ANE.PACU2 ---
Inpatient post-anesthesia follow up: Airway intact: Yes Vital signs: Temperature 97.3 F Pulse Rate 60 Respiratory Rate 18 Blood Pressure 123/76 Pulse Oximetry 98 Oxygen Delivery Me thod Room Air Oxygen Flow Rate Fraction of Inspir ed Oxygen Hydration adequate: Yes Nausea and vomiting: No Pain level: 2 Mental status: Baseline
== END 2021-10-27 10:38 | disposition home or self-care (01) ==
PROVIDERS: PCP Internal Medicine; Visit Provider Orthopaedic Surgery
PROC: (CPT 22015; principal; 2021-10-27 07:00)
DX: M96.842 Postprocedural seroma of a musculoskeletal structure following a musculoskeletal system procedure (principal); Z98.1 Arthrodesis status; J44.9 Chronic obstructive pulmonary disease, unspecified; G47.30 Sleep apnea, unspecified; I11.0 Hypertensive heart disease with heart failure; I50.9 Heart failure, unspecified; I25.2 Old myocardial infarction; K21.9 Gastro-esophageal reflux disease without esophagitis; Z86.73 Personal history of transient ischemic attack (TIA), and cerebral infarction without residual deficits; I25.10 Atherosclerotic heart disease of native coronary artery without angina pectoris; Z79.899 Other long term (current) drug therapy; E03.9 Hypothyroidism, unspecified
CPT/HCPCS: 22015; 85025; 87070; 87075; 87205; J1100; J2370; J2405; J2704; J2710; J3010; J3370; J3490; J7030

== ENCOUNTER → 2021-11-04 14:40 | Outpatient (BNVA) | payer MEDICARE, OTHER, SELFPAY | PROVIDERS: PCP Internal Medicine; Visit Provider Physician Assistant | DX: Z47.89 Encounter for other orthopedic aftercare (principal) | CPT/HCPCS: 99024 ==

== ENCOUNTER → 2021-11-11 08:15 | Outpatient (BNVA) | payer MEDICARE, OTHER, SELFPAY | PROVIDERS: PCP Internal Medicine; Visit Provider Orthopaedic Surgery | DX: Z47.89 Encounter for other orthopedic aftercare (principal); Z98.1 Arthrodesis status | CPT/HCPCS: 99024 ==

== ENCOUNTER 2021-11-14 07:30 | Outpatient (CLI) | payer MEDICARE, OTHER, SELFPAY ==
--- NOTE | 2021-11-14 08:30 | CT_ITS ---
WS: [id number] CTA THORACIC AORTA WITH CONTRAST. HISTORY: thoracic aortic aneurysm TECHNIQUE: CT imaging of the thorax is performed with contrast. After noncontrast imaging is performe d, CT angiogram is performed during injection of Omnipaque 350; 95 mL IV.. Sagittal and coronal recon structions, sagittal and coronal MIP imaging is submitted. All CT scans at [facility] use at least one of these dose optimization techniques: automated exposure control; mA and/or kV adjustment per patient size (includes targeted exams where dose is matched to clinical indication); or iterative reconstruction. DLP: 1220.90 mGy.cm COMPARISON: 02/25/2021 Very mild ectasia and atherosclerotic changes throughout the thoracic aorta. No aneurysm. Maximum ernestina meter of the ascending aorta is 4.0 cm. Descending aorta at the level of the merly is 2.8 cm. Mild c alcified plaque and intimal thickening within the aorta. There is metal artifact at the origin of the great vessels. The origins are very difficult to visualize and evaluate due to this artifact. Pulmon malika artery size is normal. No filling defects in the proximal pulmonary arteries. Heart is mildly enlarged. No pericardial effusion. No pleural effusion. Lungs are clear. No pneumonia , nodule or mass. No adenopathy. Hepatic steatosis. LEFT renal cyst is incompletely visualized measuring 4.7 x 3.4 cm. Cyst was descri bed on a prior CT from 09/29/2021. Postsurgical changes in the cervical and thoracolumbar spine causing artifact in the upper thorax and lower thorax. Prior cholecystectomy. CT/CT angio chest [id number] IMPRESSION: 1. No significant thoracic aortic aneurysm. Mild ectasia with a maximum diamet er of 4.0 cm. 2. Mild atherosclerosis aorta. 3. Normal size pulmonary artery. 4. No pulmonary mass or pneumonia. 5. Mild cardiomegaly. 6. Prior cholecystectomy.
[2021-11-14] MEDS: iohexol 350 mg/mL 100 mL Btl IV (08:33)
== END 2021-11-14 07:31 | disposition home or self-care (01) ==
LOC: RAD 07:31
PROVIDERS: PCP Internal Medicine; Visit Provider Internal Medicine Cardiovascular Disease
DX: I50.9 Heart failure, unspecified (principal); I25.10 Atherosclerotic heart disease of native coronary artery without angina pectoris; I51.7 Cardiomegaly
CPT/HCPCS: 71275

== ENCOUNTER → 2021-12-09 08:22 | Outpatient (BNVA) | payer MEDICARE, OTHER, SELFPAY | PROVIDERS: PCP Internal Medicine; Visit Provider Orthopaedic Surgery | DX: Z47.89 Encounter for other orthopedic aftercare (principal); Z98.1 Arthrodesis status | CPT/HCPCS: 99024 ==

== ENCOUNTER → 2022-01-27 10:16 | Outpatient (BNVA) | payer MEDICARE, OTHER, SELFPAY | PROVIDERS: PCP Internal Medicine; Visit Provider Internal Medicine Rheumatology | DX: M06.041 Rheumatoid arthritis without rheumatoid factor, right hand (principal); M06.042 Rheumatoid arthritis without rheumatoid factor, left hand; Z79.899 Other long term (current) drug therapy; Z71.89 Other specified counseling; Z98.1 Arthrodesis status; Z86.73 Personal history of transient ischemic attack (TIA), and cerebral infarction without residual deficits; R42 Dizziness and giddiness; K31.84 Gastroparesis; I65.29 Occlusion and stenosis of unspecified carotid artery; I48.91 Unspecified atrial fibrillation; I25.10 Atherosclerotic heart disease of native coronary artery without angina pectoris; G62.9 Polyneuropathy, unspecified; E03.9 Hypothyroidism, unspecified; R60.0 Localized edema; Z96.643 Presence of artificial hip joint, bilateral; R76.8 Other specified abnormal immunological findings in serum; M15.9 Polyosteoarthritis, unspecified; K21.9 Gastro-esophageal reflux disease without esophagitis | CPT/HCPCS: 36415; 80076; 82565; 85025; 86140; 99214 ==

== ENCOUNTER 2022-02-02 09:58 | Outpatient (CLI) | payer MEDICARE, OTHER, SELFPAY ==
[2022-02-02 10:55] LABS: Basophils # 0.1 10^3/uL (0.0-0.1); Basophils % 2.1 %; Eosinophils # 0.1 10^3/uL (0.0-0.8); Eosinophils % 1.6 %; Hematocrit 33.1 % (42.0-52.0); Lymphocytes # 0.5 10^3/uL (0.8-4.8); Lymphocytes % 12.4 %; Mean Corpuscular HGB Conc 30.2 g/dL (30.0-36.0); Mean Corpuscular Hemoglobin 29.2 pg (28.0-34.0); Mean Corpuscular Volume 96.8 fl (80-94); Mean Platelet Volume 10.1 fL (7.4-10.4); Monocytes # 0.4 10^3/uL (0.2-0.9); Monocytes % 10.6 %; Neutrophils # 2.77 10^3/uL (1.8-7.7); Nucleated Red Blood Cells % 0 %; Platelet Count 163 10^3/cmm (130-400); Red Blood Count 3.42 10^6/uL (4.1-5.3); Red Cell Distribution Width 15.5 % (12.1-15.1); White Blood Count 3.8 10^3/uL (4.0-10.0)
[2022-02-02 10:58] VITALS: BP 157/50; PULSE 74; RESP 18; TEMP 36.6; O2SAT 93
[2022-02-02] MEDS: sodium chloride 0.9% 250 ML 50 ML IV (11:09)
[2022-02-02] MEDS: diphenhydrAMINE 50 mg/mL SDV 1mL 25 MG IVP (11:10)
[2022-02-02] MEDS: acetaminophen 325 mg Tablet 650 MG PO (11:12)
[2022-02-02 12:25] VITALS: BP 141/70; PULSE 68; RESP 18; TEMP 36.4; O2SAT 93
[2022-02-02 12:36] LABS: Alanine Aminotransferase 16 U/L (0-41); Albumin Level 3.5 g/dL (3.5-5.2); Alkaline Phosphatase 68 U/L (40-130); Anion Gap 17.1 (5-19); Aspartate Amino Transferase 15 U/L (0-40); Blood Urea Nitrogen 13 mg/dL (8-23); Calcium 8.8 mg/dL (8.5-10.5); Carbon Dioxide 22 mmol/L (22-29); Chloride 106 mmol/L (98-107); Globulin 2.9 g/dL (1.3-4.6); Glucose 129 mg/dL (65-115); Osmolality Calculated 294 mOsm/kg (285-295); Potassium 4.1 mmol/L (3.5-5.1); Sodium 141 mmol/L (136-145); Total Bilirubin 0.5 mg/dL (0.15-1.2); Total Protein 6.4 g/dL (6.6-8.7)
== END 2022-02-02 09:59 | disposition home or self-care (01) ==
LOC: ONCMED 09:59
PROVIDERS: PCP Internal Medicine; Visit Provider Internal Medicine Rheumatology
DX: M05.79 Rheumatoid arthritis with rheumatoid factor of multiple sites without organ or systems involvement (principal); M06.00 Rheumatoid arthritis without rheumatoid factor, unspecified site; R76.8 Other specified abnormal immunological findings in serum; D89.9 Disorder involving the immune mechanism, unspecified; M21.171 Varus deformity, not elsewhere classified, right ankle; M21.172 Varus deformity, not elsewhere classified, left ankle; Z91.81 History of falling
CPT/HCPCS: 80053; 85025; 86140; 99213; A4222; J0129; J1200; J7050

== ENCOUNTER → 2022-03-10 09:50 | Outpatient (BNVA) | payer MEDICARE, OTHER, SELFPAY | PROVIDERS: PCP Internal Medicine; Visit Provider Orthopaedic Surgery | DX: Z98.1 Arthrodesis status (principal); Z98.890 Other specified postprocedural states | CPT/HCPCS: 72100; 99213 ==

== ENCOUNTER → 2022-03-24 09:24 | Outpatient (BNVA) | payer MEDICARE, OTHER, SELFPAY | PROVIDERS: PCP Internal Medicine; Visit Provider Urology | DX: N28.1 Cyst of kidney, acquired (principal); N39.41 Urge incontinence; Z85.46 Personal history of malignant neoplasm of prostate | CPT/HCPCS: 99203 ==

== ENCOUNTER 2022-03-25 12:53 | Outpatient (CLI) | payer MEDICARE, OTHER, SELFPAY ==
[2022-03-25 13:20] VITALS: BP 143/75; PULSE 63; RESP 18; TEMP 36.8; O2SAT 92
[2022-03-25] MEDS: acetaminophen 325 mg Tablet 650 MG PO (13:31)
[2022-03-25] MEDS: sodium chloride 0.9% 250 ML 50 ML IV (13:31)
[2022-03-25] MEDS: diphenhydrAMINE 50 mg/mL SDV 1mL 25 MG IVP (13:33)
[2022-03-25 14:48] VITALS: BP 136/69; PULSE 60; RESP 18; TEMP 36.4; O2SAT 93
== END 2022-03-25 12:54 | disposition home or self-care (01) ==
LOC: ONCMED 12:54
PROVIDERS: PCP Internal Medicine; Visit Provider Internal Medicine Rheumatology
DX: M06.9 Rheumatoid arthritis, unspecified (principal)
CPT/HCPCS: 96365; 96375; A4222; J0129; J1200; J7050

== ENCOUNTER → 2022-04-06 11:09 | Outpatient (BNVA) | payer MEDICARE, OTHER, SELFPAY | PROVIDERS: PCP Internal Medicine; Visit Provider Podiatrist Foot & Ankle Surgery | DX: M21.171 Varus deformity, not elsewhere classified, right ankle (principal); M21.172 Varus deformity, not elsewhere classified, left ankle; Z91.81 History of falling | CPT/HCPCS: 99213 ==

== ENCOUNTER 2022-04-13 08:40 | Outpatient (CLI) | payer MEDICARE, OTHER, SELFPAY ==
[2022-04-13 09:32] VITALS: BP 139/69; PULSE 78; RESP 18; TEMP 36.5; O2SAT 94
[2022-04-13 09:50] LABS: Basophils # 0.1 10^3/uL (0.0-0.1); Basophils % 0.8 %; Eosinophils # 0.1 10^3/uL (0.0-0.8); Eosinophils % 1.7 %; Hematocrit 34.2 % (42.0-52.0); Hemoglobin 10.7 g/dL (11.7-16.6); Lymphocytes # 0.4 10^3/uL (0.8-4.8); Lymphocytes % 6.2 %; Mean Corpuscular HGB Conc 31.3 g/dL (30.0-36.0); Mean Corpuscular Hemoglobin 28.5 pg (28.0-34.0); Mean Corpuscular Volume 91.2 fl (80-94); Mean Platelet Volume 9.9 fL (7.4-10.4); Monocytes # 0.5 10^3/uL (0.2-0.9); Monocytes % 8.5 %; Neutrophils # 4.95 10^3/uL (1.8-7.7); Neutrophils % 82.5 %; Nucleated Red Blood Cells % 0 %; Platelet Count 174 10^3/cmm (130-400); Red Blood Count 3.75 10^6/uL (4.1-5.3); Red Cell Distribution Width 15.1 % (12.1-15.1)
[2022-04-13] MEDS: sodium chloride 0.9% 250 ML 50 ML IV (10:05)
[2022-04-13] MEDS: acetaminophen 325 mg Tablet 650 MG PO (10:06)
[2022-04-13] MEDS: diphenhydrAMINE 50 mg/mL SDV 1mL 25 MG IVP (10:08)
[2022-04-13 10:19] LABS: Alanine Aminotransferase 12 U/L (0-41); Albumin Level 3.8 g/dL (3.5-5.2); Alkaline Phosphatase 73 U/L (40-130); Anion Gap 14.4 (5-19); Aspartate Amino Transferase 18 U/L (0-40); Blood Urea Nitrogen 16 mg/dL (8-23); Carbon Dioxide 28 mmol/L (22-29); Chloride 101 mmol/L (98-107); Globulin 3.2 g/dL (1.3-4.6); Glucose 140 mg/dL (65-115); Osmolality Calculated 293 mOsm/kg (285-295); Potassium 3.4 mmol/L (3.5-5.1); Sodium 140 mmol/L (136-145); Total Bilirubin 0.7 mg/dL (0.15-1.2)
[2022-04-13 11:12] VITALS: BP 136/82; PULSE 72; RESP 18; TEMP 36.5; O2SAT 95
== END 2022-04-13 08:41 | disposition home or self-care (01) ==
LOC: ONCMED 08:40
PROVIDERS: PCP Internal Medicine; Visit Provider Internal Medicine Rheumatology
DX: M06.9 Rheumatoid arthritis, unspecified (principal); Z79.899 Other long term (current) drug therapy
CPT/HCPCS: 80053; 85025; 86140; 96365; 96375; A4222; J0129; J1200; J7050

== ENCOUNTER 2022-04-28 11:36 | Outpatient (CLI) | payer MEDICARE, OTHER, SELFPAY ==
[2022-04-28 11:51] VITALS: BP 178/93; PULSE 71; RESP 18; TEMP 36.4; O2SAT 94
[2022-04-28] MEDS: sodium chloride 0.9% 250 ML 50 ML IV (12:18)
[2022-04-28] MEDS: acetaminophen 325 mg Tablet 650 MG PO (12:21)
[2022-04-28] MEDS: diphenhydrAMINE 50 mg/mL SDV 1mL 25 MG IVP (12:22)
[2022-04-28 13:32] VITALS: BP 155/79; PULSE 79; RESP 18; TEMP 36.5; O2SAT 94
== END 2022-04-28 11:37 | disposition home or self-care (01) ==
LOC: ONCMED 11:37
PROVIDERS: PCP Internal Medicine; Visit Provider Internal Medicine Rheumatology
DX: M06.9 Rheumatoid arthritis, unspecified (principal)
CPT/HCPCS: 96365; 96375; A4222; J0129; J1200; J7050

== ENCOUNTER 2022-04-29 13:07 | Outpatient (CLI) | payer MEDICARE, OTHER, SELFPAY ==
--- NOTE | 2022-04-29 13:45 | US_ITS ---
WS: [id number] RENAL ULTRASOUND HISTORY: RENAL CYST COMPARISON: 04/22/2017, CT 09/29/2021 TECHNIQUE: 2-D and color Doppler imaging of the kidney submitted. Right kidney: 10.0 cm x 7.0 cm x 5.0 cm. Normal size kidney. No hydronephrosis. Very subtle hypoechoic area in the mid RIGHT kidney may be a p rominent column of [place]. Previously described 10 mm cyst in the renal cortex is not definitely iden tified on today's study. No solid mass. Left kidney: 10.0 cm x 6.1 cm x 6.6 cm. Normal size kidney. No hydronephrosis. Partially exophytic low-attenuation mass from the superior austin e measures 3.0 x 3.9 x 3.5 cm. Previously described as a cyst on 09/29/2021 without increase in size. Aorta: Normal. Urinary Bladder: Normal distention. Urinary bladder is being slightly compressed by the reservoir for the penile implant. US/US renal BI* [id number] IMPRESSION: 1. No hydronephrosis or solid renal mass. 2. LEFT renal cyst, unchanged.
== END 2022-04-29 13:08 | disposition home or self-care (01) ==
LOC: RAD 13:11
PROVIDERS: PCP Internal Medicine; Visit Provider Urology
DX: I11.0 Hypertensive heart disease with heart failure (principal); I50.9 Heart failure, unspecified
CPT/HCPCS: 51741; 51798; 76770; 81003; 99213; 99214

== ENCOUNTER 2022-05-01 06:02 | Outpatient (CLI) | payer MEDICARE, OTHER, SELFPAY ==
--- NOTE | 2022-05-01 06:15 | USCV_ITS ---
Yves Kojo Age: 76 Gender: M : 1945 Exam Date: 05/01/2022 06:21 Ordering Phys: Melba Puga Technologist: DON [place] [facility] [place] BRUIT Risk Factors: Previous Vascular Surgery: Right Brachial BP: / Left Brachial BP: / Right Left Velocity (cm/s) Spectral Plaque Velocity (cm/s) Spectral Plaque Syst/Diast Broadening Syst/Diast Broadening 75.60/ 9.20 Prox CCA 77.40 / 14.10 60.90/ 10.80 Mid CCA 66.40 / 18.10 60.30/ 16.30 Distal CCA 44.50 / 18.10 50.20/ 11.30 Prox ICA 46.00 / 16.40 56.70/ 23.30 Mid ICA 57.20 / 17.70 119.60/38.10 Distal ICA 70.30 / 26.90 70.70 ECA 64.50 1.58 ICA/CCA 0.91 Antegrade Vertebral Antegrade 41.90/ 17.90 cm/s 41.40/ 12.50 cm/s Tri Subclavian Tri 105.4 114.7 0 0 FINDINGS Comparison:. / No significant elevation of systolic or diastolic velocities. Waveforms are normal. Minimal amount of calcified plaque identified. No progression. Antegrade vertebral arteries. CONCLUSIONS Bilateral ICA stenosis less than 50%. No interval change in stenosis since prior exam. Dr. Alexandrea Lee DO (Electronically Signed) Final Date: 01 May 2022 07:39 S
== END 2022-05-01 06:03 | disposition home or self-care (01) ==
LOC: RAD 06:05
PROVIDERS: PCP Internal Medicine; Visit Provider Nurse Practitioner Family
DX: R09.89 Other specified symptoms and signs involving the circulatory and respiratory systems (principal); I65.23 Occlusion and stenosis of bilateral carotid arteries
CPT/HCPCS: 93880

== ENCOUNTER → 2022-05-05 09:49 | Outpatient (BNVA) | payer MEDICARE, OTHER, SELFPAY | PROVIDERS: PCP Internal Medicine; Visit Provider Physician Assistant | DX: M51.34 Other intervertebral disc degeneration, thoracic region (principal); Z98.1 Arthrodesis status | CPT/HCPCS: 72100; 99213 ==

== ENCOUNTER → 2022-05-11 10:03 | Outpatient (BNVA) | payer MEDICARE, OTHER, SELFPAY | PROVIDERS: PCP Internal Medicine; Visit Provider Dermatology | DX: C44.329 Squamous cell carcinoma of skin of other parts of face (principal) | CPT/HCPCS: 88305 ==

== ENCOUNTER 2022-05-27 12:46 | Oncology outpatient (recurring) (ONCR) | payer MEDICARE, OTHER, SELFPAY ==
[2022-05-27] MEDS: acetaminophen 325 mg Tablet 650 MG PO (13:43)
[2022-05-27] MEDS: sodium chloride 0.9% 250 ML 100 ML IV (13:43)
[2022-05-27] MEDS: diphenhydrAMINE 50 mg/mL SDV 1mL 25 MG IVP (13:49)
[2022-05-27] MEDS: abatacept 500 MG in sodium chloride 0.9% (100 ml) 100 ML 200 MG IV (13:57)
[2022-05-27 15:01] VITALS: BP 158/71; PULSE 87; TEMP 37.1; O2SAT 95
== END 2022-06-12 23:59 | disposition home or self-care (01) ==
PROVIDERS: PCP Internal Medicine; Visit Provider Internal Medicine Rheumatology
DX: M06.00 Rheumatoid arthritis without rheumatoid factor, unspecified site (principal); Z79.899 Other long term (current) drug therapy
CPT/HCPCS: 96365; 96375; J0129; J1200; J7050

== ENCOUNTER → 2022-06-08 14:34 | Outpatient (BNVA) | payer MEDICARE, OTHER, SELFPAY | PROVIDERS: PCP Internal Medicine; Visit Provider Internal Medicine Rheumatology | DX: M06.041 Rheumatoid arthritis without rheumatoid factor, right hand (principal); M06.042 Rheumatoid arthritis without rheumatoid factor, left hand; Z79.899 Other long term (current) drug therapy; Z71.89 Other specified counseling; Z79.52 Long term (current) use of systemic steroids | CPT/HCPCS: 99214 ==

== ENCOUNTER → 2022-06-19 16:54 | Outpatient (BNVA) | payer MEDICARE, OTHER, SELFPAY | PROVIDERS: PCP Internal Medicine; Visit Provider Nurse Practitioner Family | DX: R39.9 Unspecified symptoms and signs involving the genitourinary system (principal) | CPT/HCPCS: 81000 ==

== ENCOUNTER 2022-06-23 03:57 | Emergency (ER) | payer MEDICARE, OTHER, MEDICAID, SELFPAY ==
[2022-06-23] VITALS (14 sets, daily range): BP systolic 113–164; BP diastolic 85–102; PULSE 59–87; RESP 10–26; TEMP 36.5; O2SAT 90–96; BMI 37.3
--- NOTE | 2022-06-23 04:03 | XRR_ITS ---
PROCEDURE INFORMATION: Exam: XR Chest Exam date and time: 06/23/2022 4:07 AM Age: 76 years old Clinical indication: Shortness of breath; Prior surgery; Surgery type: Cervical and thoracolumbar fusion. Gb. Patient HX: C/O SOB. History of prostate cancer. ; Additional info: Cp TECHNIQUE: Imaging protocol: Radiologic exam of the chest. Views: 1 view. COMPARISON: CR XR chest 1V portable [id number] 04/28/2021 1:57 PM FINDINGS: Lungs: Unremarkable. No consolidation. Pleural spaces: Unremarkable. No pleural effusion. No pneumothorax. Heart/Mediastinum: Cardiomegaly. Bones/joints: Cervical spine anterior and posterior fusion. Thoracolumbar spine posterior fusion. XR/XR chest 1V portable [id number] IMPRESSION: Negative for acute chest pathology.
--- NOTE | 2022-06-23 04:05 | ED_ITS ---
Documented by User: Laron Mims MD 06/23/22 04:07 HPI - SOB/Dyspnea General: Chief Complaint: Shortness of Breath/Dyspnea Stated Complaint: sob Time Seen by Provider: 06/23/22 03:59 Source: patient Mode of arrival: ambulatory Limitations: no limitations History of Present Illness: HPI Narrative: 76-year-old male has a extensive medical history does have a history of CHF he states that he has chronic back pain as well as had multiple back surgeries he states that beau has been having some back pain but also a sharp right-sided pain that is really more in the right back radiating to the right side of his chest states the pain has been severe and its been causing him shortness of breath he states anytime he tries to take a deep breath he has a very sharp pain and feels short of breath he does have a history of CHF he has had increased sw elling to his lower extremities he denies any fever denies any cough. Associated symptoms: Reports chest pain; Deny abdominal pain, fever(s), nausea or vomiting Review of Systems Const: Denies: fever(s), chills, body aches or change in appetite Eyes: Denies: blurry vision or eye discomfort ENMT: Denies: throat pain or dental pain Card: Reports: chest pain Resp: Reports: dyspnea GI: Denies: abdominal pain, nausea, vomiting or diarrhea : Denies: dysuria Musc: Denies: neck pain or back pain Skin/Breast: Denies: rash Neuro: Denies: headache(s) Psych: Denies: depression Petey/Lymph: Denies: easy bruising All/Imm: Denies: urticaria PFSH ED PFSH: Medical History Anemia Carotid artery disease Cervical postlaminectomy syndrome CHF (congestive heart failure), NYHA class III Chronic low back pain Chronic venous insufficiency COPD (chronic obstructive pulmonary disease) DJD (degenerative joint disease) Gastroparesis GERD (gastroesophageal reflux disease) 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, greater than 8 weeks H/O prostate cancer High risk medication use History of nonmelanoma skin cancer History of TIA (transient ischemic attack) HTN (hypertension) Hx of cataract Hyperlipidemia Hypothyroid Immunization counseling Immunosuppression Inflammatory arthritis FUAD (obstructive sleep apnea) Osteoarthritis, generalized Positive CORBY (antinuclear antibody) EDUARDO was negative in 2013 Radiation cystitis Seronegative rheumatoid arthritis 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 Shortness of breath Undifferentiated connective tissue disease Surgical History H/O colonoscopy 2011 H/O esophagogastroduodenoscopy 2012 H/O neck surgery x 2 H/O total knee replacement right and left History of abdominal aortic aneurysm (AAA) repair History of back surgery x 7 History of cardiac cath 7 years ago nonobstructive, negative stress test 1 year ago 2019 History of hip surgery RIGHT 04/11/19 History of penile implant History of tonsillectomy and adenoidectomy History of total left hip arthroplasty Hx of appendectomy Hx of cholecystectomy 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 Family History Mother , Age 81 Bleeding disorder Clotting disorder CAD (coronary artery disease) 60s Cancer Stroke Father , Age 94 CAD (coronary artery disease) 80 Dementia Daughter Chronic kidney disease (CKD) Brother CAD (coronary artery disease) [place] Cancer Denies family history of Diabetes Suicide Anesthesia complication Lung disease Social History Smoking and tobacco status: never smoked Alcohol intake: never Household members: spouse Marital status: Current occupational status: retired Special danny needs: No Agree to transfusion: Yes Physical Exam Const: COMMON NORMALS: no acute distress, patient oriented x3 and healthy appearing HENMT: COMMON NORMALS: normocephalic and atraumatic HEAD & SCALP: normocephalic and atraumatic Eye: COMMON NORMALS: Equal, round and reactive pupils present and EOMs intact bilaterally PUPIL: Yes Equal, round and reactive pupils present Neck/C-Spine: COMMON NORMALS: full ROM and supple Chest: COMMONS NORMALS: normal inspection of the chest OTHER: point tender over right chest Resp: COMMON NORMALS: normal respiratory effort, No retractions, No use of accessory muscles and clear to auscultation bilaterally AUSCULTATION: clear to auscultation bilaterally Cardio: COMMON NORMALS: regular rate, regular rhythm and No murmurs present (Cardio) RATE: regular rate RHYTHM: regular rhythm GI: COMMON NORMALS: Normal to inspection, nondistended, normoactive bowel sounds present, Soft to palpation, non-tender and no masses PALPATION: Yes Soft to palpation Back/Pelvis: OTHER: tenderness over right thoracic back no midline tenderness Extremity: COMMON NORMALS: normal to inspection and full ROM Neuro: COMMON NORMALS: patient oriented x3, moves all extremities and no focal motor deficits Psych: COMMON NORMALS: mental status grossly normal, Normal thought process present and cooperative THOUGHT PROCESS: Normal thought process present Skin: COMMON NORMALS: no rashes or lesions noted and no wounds GENERAL SKIN EXAM: no rashes or lesions noted Course Vital Signs: Vital signs: Vital Signs Temperature 97.7 F 06/23/22 04:01 Pulse Rate 63 06/23/22 06:45 Respiratory Rate 11 L 06/23/22 05:15 Blood Pressure 144/89 06/23/22 06:45 Pulse Oximetry 94 06/23/22 06:45 Oxygen Delivery Me thod 06/23/22 06:45 MDM - SOB/Dyspnea Lab Data 06/23/22 04:09 06/23/22 04:09 Labs/Radiology: Radiology Impressions Chest X-Ray 06/23/22 04:03 IMPRESSION: Negative for acute chest pathology. Laboratory Results WBC 6.8 10^3/uL (4.0-10.0) 06/23/22 04:09 RBC 3.87 10^6/uL (4.1-5.3) L 06/23/22 04:09 Hgb 10.6 g/dL (11.7-16.6) L 06/23/22 04:09 Hct 35.1 % (42.0-52.0) L 06/23/22 04:09 MCV 90.7 fl (80-94) 06/23/22 04:09 MCH 27.4 pg (28.0-34.0) L 06/23/22 04:09 MCHC 30.2 g/dL (30.0-36.0) 06/23/22 04:09 RDW 17.3 % (12.1-15.1) H 06/23/22 04:09 Plt Count 196 10^3/cmm (130-400) 06/23/22 04:09 MPV 9.8 fL (7.4-10.4) 06/23/22 04:09 Neut % (Auto) 72.9 % 06/23/22 04:09 Lymph % (Auto) 13.1 % 06/23/22 04:09 [place] % (Auto) 11.2 % 06/23/22 04:09 Eos % (Auto) 1.6 % 06/23/22 04:09 Baso % (Auto) 0.9 % 06/23/22 04:09 Neut # (Auto) 4.94 10^3/uL (1.8-7.7) 06/23/22 04:09 Lymph # (Auto) 0.9 10^3/uL (0.8-4.8) 06/23/22 04:09 [place] # (Auto) 0.8 10^3/uL (0.2-0.9) 06/23/22 04:09 Eos # (Auto) 0.1 10^3/uL (0.0-0.8) 06/23/22 04:09 Baso # (Auto) 0.1 10^3/uL (0.0-0.1) 06/23/22 04:09 Nucleated RBC % (auto) 0 % 06/23/22 04:09 Nucleated RBCs # 0.0 /100WBC 06/23/22 04:09 PT 12.80 SECONDS (12.1-14.9) 06/23/22 04:09 INR 0.93 (0.8-1.2) 06/23/22 04:09 Sodium 142 mmol/L (136-145) 06/23/22 04:09 Potassium 3.9 mmol/L (3.5-5.1) 06/23/22 04:09 Chloride 102 mmol/L (98-107) 06/23/22 04:09 Carbon Dioxide 28 mmol/L (22-29) 06/23/22 04:09 Anion Gap 15.9 (5-19) 06/23/22 04:09 BUN 14 mg/dL (8-23) 06/23/22 04:09 Creatinine 1.0 mg/dL (0.7-1.2) 06/23/22 04:09 GFR Calculation Not Reportable 06/23/22 04:09 Glucose 93 mg/dL (65-115) 06/23/22 04:09 Calculated Osmolality 294 mOsm/kg (285-295) 06/23/22 04:09 Calcium 8.8 mg/dL (8.5-10.5) 06/23/22 04:09 Total Bilirubin 0.4 mg/dL (0.15-1.2) 06/23/22 04:09 AST 15 U/L (0-40) 06/23/22 04:09 ALT 11 U/L (0-41) 06/23/22 04:09 Alkaline Phosphatase 87 U/L (40-130) 06/23/22 04:09 Troponin T Baseline 31 ng/L (0-15) H 06/23/22 04:09 Troponin T 120 Minute 27.52 ng/L (0-15) H 06/23/22 06:09 Delta Troponin T -3.48 ABS# (0-10) L 06/23/22 06:09 NT-Pro-B Natriuret Pep 338 pg/mL (0-450) 06/23/22 04:09 Total Protein 6.7 g/dL (6.6-8.7) 06/23/22 04:09 Albumin 3.9 g/dL (3.5-5.2) 06/23/22 04:09 Globulin 2.8 g/dL (1.3-4.6) 06/23/22 04:09 Discharge Plan Discharge Patient Disposition: Home Clinical Impression: Back pain Condition: Stable Prescriptions: New hydrocodone-acetaminophen 5-325 mg tablet 1 tab PO Q6H PRN (Reason: pain) Qty: 12 0RF prednisone 20 mg tablet 20 mg PO TID Qty: 15 0RF Rx Instructions: 1 p.o. 3 times daily x3 days, 1 p.o. twice daily x2 days, 1 p.o. daily x2 days Held prednisone 5 mg tablet 5 mg PO DAILY Qty: 90 1RF Hold Instructions: Resume on 06/30/22. No Action hydrocortisone 2.5 % cream 1 applic TOPICAL BID PRN (Reason: Itching) ketoconazole 2 % cream 1 applic topical BID Qty: 30 1RF Rx Instructions: Apply 1-2 times daily on red, scaly areas of face mometasone 0.1 % solution 1 applic topical DAILY PRN (Reason: skin irritation) Qty: 60 3RF Rx Instructions: apply a few drops to scalp daily as needed (DME) MARK BRACE See Rx Instructions .Route .MEDSUPPLY Qty: 1 0RF Rx Instructions: As directed aspirin 81 mg tablet,delayed release (DR/EC) 81 mg PO DAILY Qty: 90 3RF atorvastatin 40 mg tablet 40 mg PO BEDTIME Qty: 90 3RF carvedilol 25 mg tablet 25 mg PO BID Qty: 180 3RF nitroglycerin [Nitrostat] 0.4 mg tablet, sublingual 0.4 mg SUBLINGUAL Q5M PRN (Reason: Chest Pain) Qty: 25 6RF pregabalin [Lyrica] 100 mg capsule 100 mg PO BID Qty: 60 3RF (DME) Modification to AFO Brace to the left See Rx Instructions .Route .MEDSUPPLY Qty: 1 0RF Rx Instructions: As directed by [facility] [place] diclofenac sodium 1 % gel 4 g TOPICAL QID PRN (Reason: Pain) Qty: 100 2RF leflunomide [Arava] 20 mg tablet 20 mg PO DAILY Qty: 90 1RF Rx Instructions: 340 b pricing please omeprazole 40 mg capsule,delayed release(DR/EC) 40 mg PO DAILY Qty: 90 1RF solifenacin 10 mg tablet 10 mg PO DAILY Qty: 30 12RF potassium chloride 10 mEq tablet extended release See Rx Instructions .ROUTE .COMPLEX Qty: 360 1RF Dose Instruction: TAKE 2 TABLETS BY MOUTH TWICE DAILY Rx Instructions: TAKE 2 TABLETS BY MOUTH TWICE DAILY isosorbide mononitrate 30 mg tablet extended release 24 hr 30 mg PO DAILY Qty: 90 0RF acetaminophen 500 mg Capsule 1,000 mg PO Q4H PRN (Reason: Pain) levothyroxine [Synthroid] 137 mcg tablet 125 mcg PO DAILY Rx Instructions: PT STATES THIS MEDICATION MUST BE SYNTHROID, NOT LEVOTHYROXINE. liothyronine 5 mcg tablet 10 mcg PO DAILY bumetanide 2 mg Tablet 2 mg PO DAILY Discharge Orders: Discharge ED (Routine); Ordered 06/23/22 Ordered By: Checo Chairez Referrals: Marsha Turner MD [Primary Care Provider] - Patient Instructions: Opioid Safety, Pain Management Activity Restrictions/Additional Instructions: Hold your regular prednisone and take the prednisone taper. You can use the tizanidine as muscle relaxer as needed along with hydrocodone as needed. Follow-up with your primary care doctor before the end of the week. Continue your other previously prescribed medications. After finishing the oral prednisone taper you are given today resume the 5 mg daily of prednisone. Sign Out Sign Out Data: Patient Sign Out occurred on 06/23/22 at 05:15. Patient's care was discussed, and care was transferred from to Checo Chairez DO. Coding Level of Care Code ED Automatic Spinning Lathe Setter for Chg Fwd Documented by User: Checo Chairez DO 06/23/22 07:11 HPI - SOB/Dyspnea General: Chief Complaint: Shortness of Breath/Dyspnea Stated Complaint: sob Time Seen by Provider: 06/23/22 03:59 PFSH ED PFSH: Medical History Anemia Carotid artery disease Cervical postlaminectomy syndrome CHF (congestive heart failure), NYHA class III Chronic low back pain Chronic venous insufficiency COPD (chronic obstructive pulmonary disease) DJD (degenerative joint disease) Gastroparesis GERD (gastroesophageal reflux disease) 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, greater than 8 weeks H/O prostate cancer High risk medication use History of nonmelanoma skin cancer History of TIA (transient ischemic attack) HTN (hypertension) Hx of cataract Hyperlipidemia Hypothyroid Immunization counseling Immunosuppression Inflammatory arthritis FUAD (obstructive sleep apnea) Osteoarthritis, generalized Positive CORBY (antinuclear antibody) EDUARDO was negative in 2013 Radiation cystitis Seronegative rheumatoid arthritis 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 Shortness of breath Undifferentiated connective tissue disease Surgical History H/O colonoscopy 2011 H/O esophagogastroduodenoscopy 2012 H/O neck surgery x 2 H/O total knee replacement right and left History of abdominal aortic aneurysm (AAA) repair History of back surgery x 7 History of cardiac cath 7 years ago nonobstructive, negative stress test 1 year ago 2019 History of hip surgery RIGHT 04/11/19 History of penile implant History of tonsillectomy and adenoidectomy History of total left hip arthroplasty Hx of appendectomy Hx of cholecystectomy 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 Family History Mother , Age 81 Bleeding disorder Clotting disorder CAD (coronary artery disease) 60s Cancer Stroke Father , Age 94 CAD (coronary artery disease) 80 Dementia Daughter Chronic kidney disease (CKD) Brother CAD (coronary artery disease) [place] Cancer Denies family history of Diabetes Suicide Anesthesia complication Lung disease Social History Smoking and tobacco status: never smoked Alcohol intake: never Household members: spouse Marital status: Current occupational status: retired Special danny needs: No Agree to transfusion: Yes Course Vital Signs: Vital signs: Vital Signs Temperature 97.7 F 06/23/22 04:01 Pulse Rate 63 06/23/22 06:45 Respiratory Rate 11 L 06/23/22 05:15 Blood Pressure 144/89 06/23/22 06:45 Pulse Oximetry 94 06/23/22 06:45 Oxygen Delivery Me thod 06/23/22 06:45 MDM - SOB/Dyspnea Medical Decision Making Patient care handoff received from Dr. Mims continuation of ED evaluation. I personally saw and evaluated patient and reperformed rizzo portions of E/M. Review chart reexamine patient reviewed labs and imaging this problem seems to be mostly musculoskeletal back pain he cannot recall any triggering event he has chronic problems had surgery at multiple levels are contemplating evidently surgery at another level as well he has tramadol at home has not been helpful he is currently on prednisone 5 mg daily. We will give him tizanidine to use as needed increase him to a prednisone burst and taper and resume his regular prednisone at the end of that. Also gave him hydrocodone to use as needed. Follow-up with his primary care doctor for further evaluation and possible referral for orthopedic spine surgery or therapy. Medical Records I reviewed the patient's medical records. Lab Data I reviewed the patient's lab results. 06/23/22 04:09 06/23/22 04:09 Labs/Radiology: Radiology Impressions Chest X-Ray 06/23/22 04:03 IMPRESSION: Negative for acute chest pathology. Laboratory Results WBC 6.8 10^3/uL (4.0-10.0) 06/23/22 04:09 RBC 3.87 10^6/uL (4.1-5.3) L 06/23/22 04:09 Hgb 10.6 g/dL (11.7-16.6) L 06/23/22 04:09 Hct 35.1 % (42.0-52.0) L 06/23/22 04:09 MCV 90.7 fl (80-94) 06/23/22 04:09 MCH 27.4 pg (28.0-34.0) L 06/23/22 04:09 MCHC 30.2 g/dL (30.0-36.0) 06/23/22 04:09 RDW 17.3 % (12.1-15.1) H 06/23/22 04:09 Plt Count 196 10^3/cmm (130-400) 06/23/22 04:09 MPV 9.8 fL (7.4-10.4) 06/23/22 04:09 Neut % (Auto) 72.9 % 06/23/22 04:09 Lymph % (Auto) 13.1 % 06/23/22 04:09 [place] % (Auto) 11.2 % 06/23/22 04:09 Eos % (Auto) 1.6 % 06/23/22 04:09 Baso % (Auto) 0.9 % 06/23/22 04:09 Neut # (Auto) 4.94 10^3/uL (1.8-7.7) 06/23/22 04:09 Lymph # (Auto) 0.9 10^3/uL (0.8-4.8) 06/23/22 04:09 [place] # (Auto) 0.8 10^3/uL (0.2-0.9) 06/23/22 04:09 Eos # (Auto) 0.1 10^3/uL (0.0-0.8) 06/23/22 04:09 Baso # (Auto) 0.1 10^3/uL (0.0-0.1) 06/23/22 04:09 Nucleated RBC % (auto) 0 % 06/23/22 04:09 Nucleated RBCs # 0.0 /100WBC 06/23/22 04:09 PT 12.80 SECONDS (12.1-14.9) 06/23/22 04:09 INR 0.93 (0.8-1.2) 06/23/22 04:09 Sodium 142 mmol/L (136-145) 06/23/22 04:09 Potassium 3.9 mmol/L (3.5-5.1) 06/23/22 04:09 Chloride 102 mmol/L (98-107) 06/23/22 04:09 Carbon Dioxide 28 mmol/L (22-29) 06/23/22 04:09 Anion Gap 15.9 (5-19) 06/23/22 04:09 BUN 14 mg/dL (8-23) 06/23/22 04:09 Creatinine 1.0 mg/dL (0.7-1.2) 06/23/22 04:09 GFR Calculation Not Reportable 06/23/22 04:09 Glucose 93 mg/dL (65-115) 06/23/22 04:09 Calculated Osmolality 294 mOsm/kg (285-295) 06/23/22 04:09 Calcium 8.8 mg/dL (8.5-10.5) 06/23/22 04:09 Total Bilirubin 0.4 mg/dL (0.15-1.2) 06/23/22 04:09 AST 15 U/L (0-40) 06/23/22 04:09 ALT 11 U/L (0-41) 06/23/22 04:09 Alkaline Phosphatase 87 U/L (40-130) 06/23/22 04:09 Troponin T Baseline 31 ng/L (0-15) H 06/23/22 04:09 Troponin T 120 Minute 27.52 ng/L (0-15) H 06/23/22 06:09 Delta Troponin T -3.48 ABS# (0-10) L 06/23/22 06:09 NT-Pro-B Natriuret Pep 338 pg/mL (0-450) 06/23/22 04:09 Total Protein 6.7 g/dL (6.6-8.7) 06/23/22 04:09 Albumin 3.9 g/dL (3.5-5.2) 06/23/22 04:09 Globulin 2.8 g/dL (1.3-4.6) 06/23/22 04:09 Discharge Plan Discharge Patient Disposition: Home Clinical Impression: Back pain Condition: Stable Prescriptions: New hydrocodone-acetaminophen 5-325 mg tablet 1 tab PO Q6H PRN (Reason: pain) Qty: 12 0RF prednisone 20 mg tablet 20 mg PO TID Qty: 15 0RF Rx Instructions: 1 p.o. 3 times daily x3 days, 1 p.o. twice daily x2 days, 1 p.o. daily x2 days Held prednisone 5 mg tablet 5 mg PO DAILY Qty: 90 1RF Hold Instructions: Resume on 06/30/22. No Action hydrocortisone 2.5 % cream 1 applic TOPICAL BID PRN (Reason: Itching) ketoconazole 2 % cream 1 applic topical BID Qty: 30 1RF Rx Instructions: Apply 1-2 times daily on red, scaly areas of face mometasone 0.1 % solution 1 applic topical DAILY PRN (Reason: skin irritation) Qty: 60 3RF Rx Instructions: apply a few drops to scalp daily as needed (DME) MARK BRACE See Rx Instructions .Route .MEDSUPPLY Qty: 1 0RF Rx Instructions: As directed aspirin 81 mg tablet,delayed release (DR/EC) 81 mg PO DAILY Qty: 90 3RF atorvastatin 40 mg tablet 40 mg PO BEDTIME Qty: 90 3RF carvedilol 25 mg tablet 25 mg PO BID Qty: 180 3RF nitroglycerin [Nitrostat] 0.4 mg tablet, sublingual 0.4 mg SUBLINGUAL Q5M PRN (Reason: Chest Pain) Qty: 25 6RF pregabalin [Lyrica] 100 mg capsule 100 mg PO BID Qty: 60 3RF (DME) Modification to AFO Brace to the left See Rx Instructions .Route .MEDSUPPLY Qty: 1 0RF Rx Instructions: As directed by [facility] [place] diclofenac sodium 1 % gel 4 g TOPICAL QID PRN (Reason: Pain) Qty: 100 2RF leflunomide [Arava] 20 mg tablet 20 mg PO DAILY Qty: 90 1RF Rx Instructions: 340 b pricing please omeprazole 40 mg capsule,delayed release(DR/EC) 40 mg PO DAILY Qty: 90 1RF solifenacin 10 mg tablet 10 mg PO DAILY Qty: 30 12RF potassium chloride 10 mEq tablet extended release See Rx Instructions .ROUTE .COMPLEX Qty: 360 1RF Dose Instruction: TAKE 2 TABLETS BY MOUTH TWICE DAILY Rx Instructions: TAKE 2 TABLETS BY MOUTH TWICE DAILY isosorbide mononitrate 30 mg tablet extended release 24 hr 30 mg PO DAILY Qty: 90 0RF acetaminophen 500 mg Capsule 1,000 mg PO Q4H PRN (Reason: Pain) levothyroxine [Synthroid] 137 mcg tablet 125 mcg PO DAILY Rx Instructions: PT STATES THIS MEDICATION MUST BE SYNTHROID, NOT LEVOTHYROXINE. liothyronine 5 mcg tablet 10 mcg PO DAILY bumetanide 2 mg Tablet 2 mg PO DAILY Discharge Orders: Discharge ED (Routine); Ordered 06/23/22 Ordered By: Checo Chairez Referrals: Marsha Turner MD [Primary Care Provider] - Patient Instructions: Opioid Safety, Pain Management Activity Restrictions/Additional Instructions: Hold your regular prednisone and take the prednisone taper. You can use the tizanidine as muscle relaxer as needed along with hydrocodone as needed. Follow-up with your primary care doctor before the end of the week. Continue your other previously prescribed medications. After finishing the oral prednisone taper you are given today resume the 5 mg daily of prednisone. Sign Out Sign Out Data: Patient Sign Out occurred on 06/23/22 at 05:15. Patient's care was discussed, and care was transferred from to Checo Chairez DO. Coding Level of Care Code ED Automatic Spinning Lathe Setter for Lauren Zimmerman
--- NOTE | 2022-06-23 04:08 | ECG_ITS ---
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 Measurements Intervals [place] Rate: 80 P: 57 [place]: 212 QRS: -59 QRSD: 138 T: 70 QT: 384 QTc: 446 Interpretive Statements SINUS RHYTHM WITH FIRST DEGREE AV BLOCK INTRAVENTRICULAR CONDUCTION DELAY [130+ ms QRS DURATION] MINIMAL VOLTAGE CRITERIA FOR LVH, CONSIDER NORMAL VARIANT [MEETS CRITERIA IN ONE OF: R(aVL), S(V1), R(V5), R(V5/V6)+S(V1)] POSSIBLE SEPTAL MYOCARDIAL INFARCTION , OF INDETERMINATE AGE [30 ms Q WAVE IN V1/V2] Compared to ECG 04/28/2021 12:38:47 First degree AV block now present Intraventricular conduction delay now present Left anterior fascicular block no longer present Myocardial infarct finding still present Electronically Signed On 06-24-2022 2:23:29 CDT by Priyanka Rivas M.D. [id number]
[2022-06-23] MEDS: ondansetron 2 mg/ML SDV 2 mL 4 MG IVP (04:09)
[2022-06-23] MEDS: HYDROmorphone 1 mg/mL INJ 1 mL 0.5 MG IVP (04:09)
[2022-06-23] MEDS: FUROsemide 10 mg/mL SDV 10mL 60 MG IVP (04:13)
[2022-06-23 04:23] LABS: Basophils # 0.1 10^3/uL (0.0-0.1); Basophils % 0.9 %; Eosinophils # 0.1 10^3/uL (0.0-0.8); Eosinophils % 1.6 %; Hematocrit 35.1 % (42.0-52.0); Hemoglobin 10.6 g/dL (11.7-16.6); Lymphocytes # 0.9 10^3/uL (0.8-4.8); Lymphocytes % 13.1 %; Mean Corpuscular HGB Conc 30.2 g/dL (30.0-36.0); Mean Corpuscular Hemoglobin 27.4 pg (28.0-34.0); Mean Corpuscular Volume 90.7 fl (80-94); Mean Platelet Volume 9.8 fL (7.4-10.4); Monocytes # 0.8 10^3/uL (0.2-0.9); Monocytes % 11.2 %; Neutrophils # 4.94 10^3/uL (1.8-7.7); Neutrophils % 72.9 %; Nucleated Red Blood Cells % 0 %; Platelet Count 196 10^3/cmm (130-400); Red Blood Count 3.87 10^6/uL (4.1-5.3); Red Cell Distribution Width 17.3 % (12.1-15.1); White Blood Count 6.8 10^3/uL (4.0-10.0)
[2022-06-23 04:37] LABS: INR 0.93 (0.8-1.2)
[2022-06-23 04:47] LABS: Troponin(5th) Baseline 31 ng/L (0-15)
[2022-06-23 04:57] LABS: Alanine Aminotransferase 11 U/L (0-41); Albumin Level 3.9 g/dL (3.5-5.2); Alkaline Phosphatase 87 U/L (40-130); Anion Gap 15.9 (5-19); Aspartate Amino Transferase 15 U/L (0-40); Blood Urea Nitrogen 14 mg/dL (8-23); Calcium 8.8 mg/dL (8.5-10.5); Carbon Dioxide 28 mmol/L (22-29); Chloride 102 mmol/L (98-107); Globulin 2.8 g/dL (1.3-4.6); Glucose 93 mg/dL (65-115); NT Pro B Type Natriuretic Pept 338 pg/mL (0-450); Osmolality Calculated 294 mOsm/kg (285-295); Potassium 3.9 mmol/L (3.5-5.1); Sodium 142 mmol/L (136-145); Total Bilirubin 0.4 mg/dL (0.15-1.2); Total Protein 6.7 g/dL (6.6-8.7)
--- NOTE | 2022-06-23 06:13 | ECG_ITS ---
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 Measurements Intervals [place] Rate: 72 P: 23 SC: 216 QRS: -59 QRSD: 133 T: 62 QT: 417 QTc: 459 Interpretive Statements SINUS RHYTHM WITH FIRST DEGREE AV BLOCK INTRAVENTRICULAR CONDUCTION DELAY [130+ ms QRS DURATION] POSSIBLE LEFT VENTRICULAR HYPERTROPHY [VOLTAGE CRITERIA PLUS LAE OR QRS WIDENING] POSSIBLE SEPTAL MYOCARDIAL INFARCTION , OF INDETERMINATE AGE [30 ms Q WAVE IN V1/V2] Compared to ECG 06/23/2022 04:08:12 No significant changes Electronically Signed On 06-24-2022 2:23:34 CDT by Priyanka Rivas M.D. [id number]
[2022-06-23 06:41] LABS: Troponin 5 2HR 27.52 ng/L (0-15)
[2022-06-23 06:46] LABS: Troponin 5 2HR Delta -3.48 ABS# (0-10)
== END 2022-06-23 07:40 | disposition home or self-care (01) ==
PROVIDERS: Emergency Medicine; Emergency Provider Family Medicine; PCP Internal Medicine
DX: M54.9 Dorsalgia, unspecified (principal); Z79.82 Long term (current) use of aspirin; I11.0 Hypertensive heart disease with heart failure; I50.9 Heart failure, unspecified; J44.9 Chronic obstructive pulmonary disease, unspecified; I25.2 Old myocardial infarction; Z85.46 Personal history of malignant neoplasm of prostate; Z86.73 Personal history of transient ischemic attack (TIA), and cerebral infarction without residual deficits; E78.5 Hyperlipidemia, unspecified
CPT/HCPCS: 71045; 80053; 83880; 84484; 85025; 85610; 93005; 96374; 96375; 99285; J1170; J1940; J2405

== ENCOUNTER 2022-06-24 09:48 | Oncology outpatient (recurring) (ONCR) | payer MEDICARE, OTHER, MEDICAID, SELFPAY ==
[2022-06-24 11:25] VITALS: BP 128/71; PULSE 65; RESP 18; TEMP 36.6; O2SAT 96
[2022-06-24 11:34] VITALS: BMI 36.6
[2022-06-24] MEDS: sodium chloride 0.9% 250 ML 75 ML IV (12:19)
[2022-06-24] MEDS: acetaminophen 325 mg Tablet 650 MG PO (12:23)
[2022-06-24] MEDS: diphenhydrAMINE 50 mg/mL SDV 1mL 25 MG IVP (12:24)
[2022-06-24] MEDS: abatacept 500 MG in sodium chloride 0.9% (100 ml) 100 ML 200 MG IV (12:31)
[2022-06-24 13:17] VITALS: BP 143/81; PULSE 62; RESP 18; TEMP 36.8; O2SAT 95
== END 2022-07-12 23:59 | disposition home or self-care (01) ==
PROVIDERS: PCP Internal Medicine; Visit Provider Internal Medicine Rheumatology
DX: M06.042 Rheumatoid arthritis without rheumatoid factor, left hand (principal); M06.041 Rheumatoid arthritis without rheumatoid factor, right hand
CPT/HCPCS: 96365; 96375; 96413; J0129; J1200; J7050

== ENCOUNTER → 2022-06-30 14:54 | Outpatient (BNVA) | payer MEDICARE, OTHER, MEDICAID, SELFPAY | PROVIDERS: PCP Internal Medicine; Visit Provider Dermatology | DX: L57.0 Actinic keratosis (principal); L57.8 Other skin changes due to chronic exposure to nonionizing radiation; L81.4 Other melanin hyperpigmentation; Z85.828 Personal history of other malignant neoplasm of skin | CPT/HCPCS: 17004; 99213 ==

== ENCOUNTER 2022-07-10 11:01 | Outpatient (CLI) | payer MEDICARE, OTHER, MEDICAID, SELFPAY ==
--- NOTE | 2022-07-10 | XR_ITS ---
WS: [id number] Exam: XR chest 2V* [id number] Date/Time of Exam: 07/10/2022 11:24 AM Reason For Exam: COUGH Comparison 06/23/2022. The lungs are fully expanded and clear. There is hyperinflation. Normal cardiomediastinal silhouette. Fusion hardware noted in the lower thoracic and lumbar spine as well as the visualized lower cervica l spine. Remaining bony structures are intact. Moderate degenerative disc change and mild spondylosis of the T-spine. No pleural effusion. XR/XR chest 2V* [id number] IMPRESSION: 1. No acute cardiopulmonary process. 2. Pulmonary hyperinflation that might indicate COPD.
== END 2022-07-10 11:02 | disposition home or self-care (01) ==
PROVIDERS: PCP Internal Medicine; Visit Provider Nurse Practitioner Family
DX: R05.8 Other specified cough (principal)
CPT/HCPCS: 71046

== ENCOUNTER 2022-07-23 10:41 | Oncology outpatient (recurring) (ONCR) | payer MEDICARE, OTHER, MEDICAID, SELFPAY ==
[2022-07-23 11:24] VITALS: BP 135/72; PULSE 81; RESP 18; TEMP 36.4; O2SAT 93
[2022-07-23] MEDS: acetaminophen 325 mg Tablet 650 MG PO (11:44)
[2022-07-23] MEDS: sodium chloride 0.9% (100 ml) 100 ML 25 ML (11:44)
[2022-07-23] MEDS: diphenhydrAMINE 50 mg/mL SDV 1mL 25 MG IVP (11:46)
[2022-07-23] MEDS: abatacept 500 MG in sodium chloride 0.9% (100 ml) 100 ML 200 MG IV (11:49)
[2022-07-23 12:36] VITALS: BP 160/92; PULSE 72; RESP 18; TEMP 36.4; O2SAT 95
== END 2022-08-12 23:59 | disposition home or self-care (01) ==
LOC: ONCMED 10:42
PROVIDERS: PCP Internal Medicine; Visit Provider Internal Medicine Rheumatology
DX: M06.042 Rheumatoid arthritis without rheumatoid factor, left hand (principal); M06.041 Rheumatoid arthritis without rheumatoid factor, right hand
CPT/HCPCS: 96365; 96375; 96413; J0129; J1200

== ENCOUNTER 2022-08-03 14:11 | Emergency (ER) | payer MEDICARE, OTHER, MEDICAID, SELFPAY ==
[2022-08-03 14:19] VITALS: BP 185/93; PULSE 93; RESP 18; TEMP 36.9; O2SAT 97; BMI 37.3
[2022-08-03 14:23] VITALS: BP 181/106
--- NOTE | 2022-08-03 14:46 | CT_ITS ---
WS: [id number] CT HEAD TECHNIQUE: Noncontrast CT of the head obtained from the skullbase to the vertex. CLINICAL INFORMATION: Symptoms of acute stroke COMPARISON: 2019 DLP: [address] scans at [facility] use at least one of these dose optimization techniques: automated e xposure control; mA and/or kV adjustment per patient size (includes targeted exams where dose is matc hed to clinical indication); or iterative reconstruction. FINDINGS: No evidence of intracranial hemorrhage or mass effect. Ventricular system and basal cisterns are myers nt. Moderate small vessel changes with moderate parenchymal volume loss. No extra-axial fluid collect ions. No evidence of mass or mass effect. Vascular calcification. Paranasal sinuses and mastoid air cells are well aerated. .Normal visualized soft tissues. CT/CT head thrombolytic [id number] IMPRESSION: 1. No evidence of intracranial hemorrhage or mass effect. 2. Moderate small vessel changes. Moderate parenchymal volume loss. 3. Vascular calcification. 4. No acute intracranial findings. Notified Checo Chairez DO at 08/03/2022 3:18 PM.
--- NOTE | 2022-08-03 14:47 | W.ED.WEAKNES ---
HPI - Weakness General: Chief complaint: Weakness Stated complaint: Weakness, Left Leg gave out, headpain Time Seen by Provider: 08/03/22 14:28 Source: patient Mode of arrival: ambulatory History of Present Illness: 68-year-old male presents emergency room with complaints of left leg weakness and headache. He was getting in the car states his left leg went completely numb he had a TIA in 2017 is really having any other symptoms he says occasionally he has had episodes of diaphoresis without any episodes of chest pain. He is able to flex of the leg and draws needing up while lying in bed but is not able to elevate his leg off of the bed. He does have quite a bit of arthritic neuritis particularly in his lower extremities it had bilateral knee arthroplasties he has rheumatoid arthritis he is also had multiple back and neck surgeries. He states he had no residual effects from the previous TIA. He does not have any radicular-like symptoms into his leg at this time. MD Complaint: focal weakness Onset (ago): hour(s) (1 hour prior to arrival) Duration: constant Location: LLE Severity: mild Quality: numbness Relieving factors: none Exacerbating factors: none Associated symptoms: Denies chest pain, chills, confusion, melena, decreased appetite, diaphoresis, dysuria, easy bruising, fever(s), headache(s), myalgias, nausea, rash, short of breath, syncope or vomiting Review of Systems Const: Denies: fever(s), chills or diaphoresis Card: Denies: chest pain, palpitations, irregular heart rhythm or syncope GI: Denies: nausea, vomiting or melena : Denies: dysuria Neuro: Denies: headache(s) or confusion Petey/Lymph: Denies: easy bruising PFS ED PFSH: Medical History Anemia Carotid artery disease Cervical postlaminectomy syndrome CHF (congestive heart failure), NYHA class III Chronic low back pain Chronic venous insufficiency COPD (chronic obstructive pulmonary disease) DJD (degenerative joint disease) Gastroparesis GERD (gastroesophageal reflux disease) 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, greater than 8 weeks H/O prostate cancer High risk medication use History of nonmelanoma skin cancer History of TIA (transient ischemic attack) HTN (hypertension) Hx of cataract Hyperlipidemia Hypothyroid Immunization counseling Immunosuppression Inflammatory arthritis FUDA (obstructive sleep apnea) Osteoarthritis, generalized Positive CORBY (antinuclear antibody) EDUARDO was negative in 2013 Radiation cystitis Seronegative rheumatoid arthritis 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 Shortness of breath Undifferentiated connective tissue disease Surgical History H/O colonoscopy 2011 H/O esophagogastroduodenoscopy 2012 H/O neck surgery x 2 H/O total knee replacement right and left History of abdominal aortic aneurysm (AAA) repair History of back surgery x 7 History of cardiac cath 7 years ago nonobstructive, negative stress test 1 year ago 2019 History of hip surgery RIGHT 04/11/19 History of penile implant History of tonsillectomy and adenoidectomy History of total left hip arthroplasty Hx of appendectomy Hx of cholecystectomy 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 Family History Mother , Age 81 Bleeding disorder Clotting disorder CAD (coronary artery disease) 60s Cancer Stroke Father , Age 94 CAD (coronary artery disease) 80 Dementia Daughter Chronic kidney disease (CKD) Brother CAD (coronary artery disease) [place] Cancer Denies family history of Diabetes Suicide Anesthesia complication Lung disease Social History Smoking and tobacco status: never smoked Alcohol intake: never Substance/Drug Use: never Household members: spouse Marital status: Current occupational status: retired Special danny needs: No Agree to transfusion: Yes Physical Exam Const: COMMON NORMALS: no acute distress GENERAL APPEARANCE: cooperative and comfortable ORIENTATION/CONSCIOUSNESS: Yes awake, Yes oriented to person, Yes oriented to place and Yes oriented to time HENMT: COMMON NORMALS: normocephalic, atraumatic and hearing grossly normal bilaterally HEAD & SCALP: normocephalic and atraumatic Resp: COMMON NORMALS: normal respiratory effort, No retractions, No use of accessory muscles and clear to auscultation bilaterally AUSCULTATION: clear to auscultation bilaterally Cardio: COMMON NORMALS: regular rate, regular rhythm and No murmurs present (Cardio) RATE: regular rate RHYTHM: regular rhythm GI: COMMON NORMALS: Soft to palpation and No hepatosplenomegaly present AUSCULTATION: Yes normoactive bowel sounds PALPATION: Yes Soft to palpation, No Tenderness to palpation present (GI), No Guarding due to palpation present (GI) and Yes No hepatosplenomegaly present Extremity: COMMON NORMALS: normal to inspection, capillary refill normal, no clubbing, cyanosis or edema, no calf tenderness and no pedal edema Neuro: SENSORIUM/ORIENTATION: Yes oriented to person, Yes oriented to place and Yes oriented to time OTHER: Patient can perform [id number] using his right heel but not his left heel however he can draw his knee up on the left side with flexing at the hip he just cannot elevated off the bed. He does have slightly diminished sensation on the left side of the face and the left leg but not so much in the left hand when compared to the right side Skin: COMMON NORMALS: no rashes or lesions noted GENERAL SKIN EXAM: no rashes or lesions noted Course Vital Signs: Vital signs: Vital Signs Temperature 98.5 F 08/03/22 14:19 Pulse Rate 93 08/03/22 14:19 Respiratory Rate 18 08/03/22 14:19 Blood Pressure 181/106 08/03/22 14:23 Pulse Oximetry 97 08/03/22 14:19 Oxygen Delivery Me thod Room Air 08/03/22 14:19 MDM - Weakness Medical Decision Making EKG read acute [place] however patient is having no chest pain at all at this time he has a lot of PVCs on the EKG today when compared to previous EKGs the there is no significant change other than the addition of PVCs which she is asymptomatic of at this time. Initially was concerned the patient may have had a stroke however he cannot lift the leg off off the bed and a straight leg raise but he can pull his knee up. We got him up and ambulate him after the CT was negative he does have radicular-like pain in the left leg now he has no other significant findings. Discussed Dr. Williamson home and discharge patient home on steroid taper and have the patient follow-up with Dr. Delarosa return if he has worsening or change problems. Medical Records I reviewed the patient's medical records. Lab Data I reviewed the patient's lab results. 08/03/22 15:00 08/03/22 15:[address] 08/03/22 14:46 IMPRESSION: 1. No evidence of intracranial hemorrhage or mass effect. 2. Moderate small vessel changes. Moderate parenchymal volume loss. 3. Vascular calcification. 4. No acute intracranial findings. Notified Checo Chairez DO at 08/03/2022 3:18 PM. Laboratory Results WBC 4.9 10^3/uL (4.0-10.0) 08/03/22 15:00 RBC 3.79 10^6/uL (4.1-5.3) L 08/03/22 15:00 Hgb 10.8 g/dL (11.7-16.6) L 08/03/22 15:00 Hct 34.7 % (42.0-52.0) L 08/03/22 15:00 MCV 91.6 fl (80-94) 08/03/22 15:00 MCH 28.5 pg (28.0-34.0) 08/03/22 15:00 MCHC 31.1 g/dL (30.0-36.0) 08/03/22 15:00 RDW 17.2 % (12.1-15.1) H 08/03/22 15:00 Plt Count 203 10^3/cmm (130-400) 08/03/22 15:00 MPV 9.6 fL (7.4-10.4) 08/03/22 15:00 Neut % (Auto) 75.3 % 08/03/22 15:00 Lymph % (Auto) 10.7 % 08/03/22 15:00 Garza % (Auto) 10.9 % 08/03/22 15:00 Eos % (Auto) 1.9 % 08/03/22 15:00 Baso % (Auto) 0.8 % 08/03/22 15:00 Neut # (Auto) 3.66 10^3/uL (1.8-7.7) 08/03/22 15:00 Lymph # (Auto) 0.5 10^3/uL (0.8-4.8) L 08/03/22 15:00 Garza # (Auto) 0.5 10^3/uL (0.2-0.9) 08/03/22 15:00 Eos # (Auto) 0.1 10^3/uL (0.0-0.8) 08/03/22 15:00 Baso # (Auto) 0.0 10^3/uL (0.0-0.1) 08/03/22 15:00 Nucleated RBC % (auto) 0 % 08/03/22 15:00 Nucleated RBCs # 0.0 /100WBC 08/03/22 15:00 PT 13.60 SECONDS (12.1-14.9) 08/03/22 15:00 INR 1.01 (0.8-1.2) 08/03/22 15:00 APTT 30.4 SECONDS (23.9-36.7) 08/03/22 15:00 Sodium 141 mmol/L (136-145) 08/03/22 15:00 Potassium 3.5 mmol/L (3.5-5.1) 08/03/22 15:00 Chloride 102 mmol/L (98-107) 08/03/22 15:00 Carbon Dioxide 25 mmol/L (22-29) 08/03/22 15:00 Anion Gap 17.5 (5-19) 08/03/22 15:00 BUN 19 mg/dL (8-23) 08/03/22 15:00 Creatinine 0.9 mg/dL (0.7-1.2) 08/03/22 15:00 GFR Calculation Not Reportable 08/03/22 15:00 Glucose 125 mg/dL (65-115) H 08/03/22 15:00 POC Glucose 133 mg/dL (70-110) H 08/03/22 15:09 Calculated Osmolality 296 mOsm/kg (285-295) H 08/03/22 15:00 Calcium 9.0 mg/dL (8.5-10.5) 08/03/22 15:00 Total Bilirubin 0.5 mg/dL (0.15-1.2) 08/03/22 15:00 AST 16 U/L (0-40) 08/03/22 15:00 ALT 15 U/L (0-41) 08/03/22 15:00 Alkaline Phosphatase 71 U/L (40-130) 08/03/22 15:00 Total Protein 6.8 g/dL (6.6-8.7) 08/03/22 15:00 Albumin 3.8 g/dL (3.5-5.2) 08/03/22 15:00 Globulin 3.0 g/dL (1.3-4.6) 08/03/22 15:00 Urine Color Yellow (Yellow) 08/03/22 15:30 Urine Appearance Clear (CLEAR) 08/03/22 15:30 Urine pH 5 (5-7) 08/03/22 15:30 Ur Specific Baudette 1.020 (1.005-1.030) 08/03/22 15:30 Urine Protein Neg (Negative) 08/03/22 15:30 Urine Glucose (UA) Norm (Normal) 08/03/22 15:30 Urine Ketones Negative (Negative) 08/03/22 15:30 Urine Blood Neg (Negative) 08/03/22 15:30 Urine Nitrate Negative (Negative) 08/03/22 15:30 Urine Bilirubin Neg (Negative) 08/03/22 15:30 Urine Urobilinogen Norm mg/dL (Negative) 08/03/22 15:30 Ur Leukocyte Esterase Negative (Negative) 08/03/22 15:30 Urine Opiates Screen Negative ng/mL (Negative) 08/03/22 15:30 Ur Barbiturates Screen Negative ng/mL (Negative) 08/03/22 15:30 Ur Phencyclidine Scrn Negative ng/mL (Negative) 08/03/22 15:30 Ur Amphetamines Screen Negative ng/mL (Negative) 08/03/22 15:30 U Benzodiazepines Scrn Negative ng/mL (Negative) 08/03/22 15:30 Urine Cocaine Screen Negative ng/mL (Negative) 08/03/22 15:30 U Marijuana (THC) Screen Negative ng/mL (Negative) 08/03/22 15:30 Discharge Plan Discharge Patient Disposition: Home Clinical Impression: Radicular pain of left lower extremity Condition: Stable Prescriptions: New prednisone 20 mg tablet 20 mg PO TID Qty: 15 0RF Rx Instructions: 1 p.o. 3 times daily x3 days, 1 p.o. twice daily x2 days, 1 p.o. daily x2 days Held prednisone 5 mg tablet 5 mg PO DAILY Qty: 90 1RF Hold Instructions: Resume on 06/30/22. No Action hydrocortisone 2.5 % cream 1 applic TOPICAL BID PRN (Reason: Itching) ketoconazole 2 % cream 1 applic topical BID Qty: 30 1RF Rx Instructions: Apply 1-2 times daily on red, scaly areas of face mometasone 0.1 % solution 1 applic topical DAILY PRN (Reason: skin irritation) Qty: 60 3RF Rx Instructions: apply a few drops to scalp daily as needed (DME) MARK BRACE See Rx Instructions .Route .MEDSUPPLY Qty: 1 0RF Rx Instructions: As directed aspirin 81 mg tablet,delayed release (DR/EC) 81 mg PO DAILY Qty: 90 3RF carvedilol 25 mg tablet 25 mg PO BID Qty: 180 3RF nitroglycerin [Nitrostat] 0.4 mg tablet, sublingual 0.4 mg SUBLINGUAL Q5M PRN (Reason: Chest Pain) Qty: 25 6RF (DME) Modification to AFO Brace to the left See Rx Instructions .Route .MEDSUPPLY Qty: 1 0RF Rx Instructions: As directed by Becky diclofenac sodium 1 % gel 4 g TOPICAL QID PRN (Reason: Pain) Qty: 100 2RF leflunomide [Arava] 20 mg tablet 20 mg PO DAILY Qty: 90 1RF Rx Instructions: 340 b pricing please omeprazole 40 mg capsule,delayed release(DR/EC) 40 mg PO DAILY Qty: 90 1RF solifenacin 10 mg tablet 10 mg PO DAILY Qty: 30 12RF potassium chloride 10 mEq tablet extended release See Rx Instructions .ROUTE .COMPLEX Qty: 360 1RF Dose Instruction: TAKE 2 TABLETS BY MOUTH TWICE DAILY Rx Instructions: TAKE 2 TABLETS BY MOUTH TWICE DAILY isosorbide mononitrate 30 mg tablet extended release 24 hr 30 mg PO DAILY Qty: 90 0RF pregabalin [Lyrica] 100 mg capsule 100 mg PO BID Qty: 60 2RF atorvastatin 40 mg tablet 40 mg PO BEDTIME Qty: 90 3RF acetaminophen 500 mg Capsule 1,000 mg PO Q4H PRN (Reason: Pain) levothyroxine [Synthroid] 137 mcg tablet 125 mcg PO DAILY Rx Instructions: PT STATES THIS MEDICATION MUST BE SYNTHROID, NOT LEVOTHYROXINE. liothyronine 5 mcg tablet 10 mcg PO DAILY bumetanide 2 mg Tablet 2 mg PO DAILY hydrocodone-acetaminophen 5-325 mg tablet 1 tab PO Q6H PRN (Reason: pain) Qty: 12 0RF prednisone 20 mg tablet 20 mg PO TID Qty: 15 0RF Rx Instructions: 1 p.o. 3 times daily x3 days, 1 p.o. twice daily x2 days, 1 p.o. daily x2 days Discharge Orders: Discharge ED (Routine); Ordered 08/03/22 Ordered By: Checo Chairez Referrals: Marsha Turner MD [Primary Care Provider] - Discharge Diet: Usual diet Discharge Activity: Increase activity as tolerated Patient Instructions: Opioid Safety, Pain Management Activity Restrictions/Additional Instructions: Case management make arrangements for her to follow-up with Dr. Delarosa. Please use your walker whenever you are ambulating. Start steroid taper tomorrow morning. 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
--- NOTE | 2022-08-03 15:10 | ECG_ITS ---
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 Measurements Intervals [place] Rate: 111 P: 0 CO: 0 QRS: -63 QRSD: 129 T: 67 QT: 360 QTc: 490 Interpretive Statements ATRIAL FIBRILLATION WITH RAPID VENTRICULAR RESPONSE WITH ABERRANT CONDUCTION OR VENTRICULAR PREMATURE COMPLEXES LEFT ANTERIOR FASCICULAR BLOCK [QRS AXIS <= -45, QR IN I, RS IN II] VOLTAGE CRITERIA FOR LVH [MEETS CRITERIA IN ONE OF: R(aVL), S(V1), R(V5), R(V5/V6)+S(V1)] POSSIBLE SEPTAL MYOCARDIAL INFARCTION , PROBABLY OLD [30 ms Q WAVE IN V1/V2] Compared to ECG 06/23/2022 06:13:13 Ventricular premature complex(es) now present Aberrant conduction of supraventricular beat(s) now present First degree AV block no longer present Intraventricular conduction delay no longer present Myocardial infarct finding still present Electronically Signed On 08-03-2022 16:26:57 CDT by Dario Nuñez M.D. [email or web address] springfield regional medical centerRouse Properties/store/[id number]
[2022-08-03 15:16] LABS: Glucose Point of Care 133 mg/dL (70-110)
[2022-08-03 15:27] LABS: Basophils % 0.8 %; Eosinophils # 0.1 10^3/uL (0.0-0.8); Eosinophils % 1.9 %; Hematocrit 34.7 % (42.0-52.0); Hemoglobin 10.8 g/dL (11.7-16.6); Lymphocytes # 0.5 10^3/uL (0.8-4.8); Lymphocytes % 10.7 %; Mean Corpuscular HGB Conc 31.1 g/dL (30.0-36.0); Mean Corpuscular Hemoglobin 28.5 pg (28.0-34.0); Mean Corpuscular Volume 91.6 fl (80-94); Mean Platelet Volume 9.6 fL (7.4-10.4); Monocytes # 0.5 10^3/uL (0.2-0.9); Monocytes % 10.9 %; Neutrophils # 3.66 10^3/uL (1.8-7.7); Neutrophils % 75.3 %; Nucleated Red Blood Cells % 0 %; Platelet Count 203 10^3/cmm (130-400); Red Blood Count 3.79 10^6/uL (4.1-5.3); Red Cell Distribution Width 17.2 % (12.1-15.1); White Blood Count 4.9 10^3/uL (4.0-10.0)
[2022-08-03 15:35] LABS: INR 1.01 (0.8-1.2)
[2022-08-03 15:36] LABS: Partial Thromboplastin Time 30.4 SECONDS (23.9-36.7)
[2022-08-03 15:39] LABS: Alanine Aminotransferase 15 U/L (0-41); Albumin Level 3.8 g/dL (3.5-5.2); Alkaline Phosphatase 71 U/L (40-130); Anion Gap 17.5 (5-19); Aspartate Amino Transferase 16 U/L (0-40); Blood Urea Nitrogen 19 mg/dL (8-23); Carbon Dioxide 25 mmol/L (22-29); Chloride 102 mmol/L (98-107); Glucose 125 mg/dL (65-115); Osmolality Calculated 296 mOsm/kg (285-295); Potassium 3.5 mmol/L (3.5-5.1); Sodium 141 mmol/L (136-145); Total Bilirubin 0.5 mg/dL (0.15-1.2); Total Protein 6.8 g/dL (6.6-8.7)
[2022-08-03 15:57] LABS: Add Urine Microscopic? NO; Charge for UA Resulting for Rev
[2022-08-03 16:00] LABS: Bilirubin Urine Neg (Negative); Blood Urine Neg (Negative); Glucose Urine UA Norm (Normal); Ketones Urine Negative (Negative); Leukocyte Esterase Urine Negative (Negative); Nitrate Urine Negative (Negative); Protein Urine Neg (Negative); Urine Appearance Clear (CLEAR); Urine Color Yellow (Yellow); Urobilinogen Urine Norm (Negative); pH Urine 5 (5-7)
[2022-08-03 16:10] LABS: Amphetamines Screen Urine Negative (Negative); Barbiturates Screen Urine Negative (Negative); Benzodiazepines Screen Urine Negative (Negative); Cocaine Screen Urine Negative (Negative); Opiate Screen Urine Negative (Negative); PCP Screen Urine Negative (Negative); THC Screen Urine Negative (Negative)
[2022-08-03] MEDS: dexamethasone 10 mg/mL INJ IM (16:33)
== END 2022-08-03 16:59 | disposition home or self-care (01) ==
PROVIDERS: Emergency Provider Family Medicine; PCP Internal Medicine
DX: M54.10 Radiculopathy, site unspecified (principal); Z79.82 Long term (current) use of aspirin; J44.9 Chronic obstructive pulmonary disease, unspecified; I11.0 Hypertensive heart disease with heart failure; I50.9 Heart failure, unspecified; I25.2 Old myocardial infarction; Z85.46 Personal history of malignant neoplasm of prostate; Z86.73 Personal history of transient ischemic attack (TIA), and cerebral infarction without residual deficits; E78.5 Hyperlipidemia, unspecified
CPT/HCPCS: 36416; 70450; 80053; 80306; 81003; 82962; 85025; 85610; 85730; 93005; 96372; 99285; J1100

== ENCOUNTER → 2022-08-06 14:49 | Outpatient (BNVA) | payer MEDICARE, OTHER, MEDICAID, SELFPAY | PROVIDERS: PCP Internal Medicine; Visit Provider Orthopaedic Surgery | DX: M48.062 Spinal stenosis, lumbar region with neurogenic claudication (principal) | CPT/HCPCS: 72100; 99214 ==

== ENCOUNTER → 2022-08-17 12:45 | Outpatient (BNVA) | payer MEDICARE, OTHER, MEDICAID, SELFPAY | PROVIDERS: PCP Internal Medicine; Visit Provider Internal Medicine Rheumatology | DX: R76.8 Other specified abnormal immunological findings in serum (principal); M62.81 Muscle weakness (generalized); M06.041 Rheumatoid arthritis without rheumatoid factor, right hand; M06.042 Rheumatoid arthritis without rheumatoid factor, left hand; Z79.899 Other long term (current) drug therapy; Z71.89 Other specified counseling | CPT/HCPCS: 36415; 82085; 82550; 99214 ==

== ENCOUNTER 2022-08-19 13:32 | Outpatient (CLI) | payer MEDICARE, OTHER, MEDICAID, SELFPAY ==
--- NOTE | 2022-08-19 12:30 | CT_ITS ---
WS: [id number] CT LUMBAR SPINE TECHNIQUE: Noncontrast CT of the lumbar spine with coronal and sagittal reformatted images. CLINICAL INFORMATION: back pain, hx of lumbar fusion COMPARISON: CT December 04, 2020 DLP: 1712.[address] scans at [facility] use at least one of these dose optimization techniques: automated e xposure control; mA and/or kV adjustment per patient size (includes targeted exams where dose is matc hed to clinical indication); or iterative reconstruction. FINDINGS: Osteopenia. Extensive postoperative changes with additional fusion since the prior examination. Inter kaycee fusion involving the S1 vertebral body with screw fixation involving the sacroiliac joints. Prior pedicle screw fixationT9-L4 with dorsal interconnecting rods. Dorsal lateral bone graft material. La minectomy defects L2-L5. Interbody grafts L4-L5 and L5-S1. Scan covers up to the mid T11 vertebral joe dy. Dorsal interconnecting rods are intact. No high-grade central canal stenosis. Adrenal glands are normal. LEFT renal cyst measuring 4.8 x 4.1 cm. L1-L2: Pedicle screw fixation. Disc space narrowing. Osteophytic ridging. Slight narrowing of the LEF T subarticular recess. Moderate bilateral bony foraminal narrowing. Laminectomy defects. Postoperativ e seroma in the laminectomy bed. L2-L3: Disc osteophyte complex with mild bilateral bony foraminal narrowing. Spinal canal decompresse d. Moderate facet arthropathy. Postoperative seroma in the laminectomy bed. L3-L4: Disc osteophytic ridging. Moderate facet arthropathy. Mild LEFT greater than RIGHT bony forami nal narrowing. Seroma in the laminectomy bed. L4-L5: Osteophytic ridging. Pedicle screw fixation with interbody fusion. Mild LEFT foraminal narrowi ng. Moderate facet arthropathy. Spinal canal is patent. L5-S1: Interbody fusion. Spinal canal and foramen are patent. Visualized pelvic bony structures: Normal. Paravertebral soft tissues: Normal. CT/CT lumbar spine wo con* [id number] IMPRESSION: 1. New fusion since the prior examination with S1 pedicle screw fixation and s acroiliac fixation screws. Dorsal interconnecting rods extending to the T9 leve l off the [id number]. 2. Hardware appears intact. Dorsal interconnecting rods appear intact. 3. Decompressive laminectomies. No significant central canal stenosis. 4. Interbody fusion grafts L4-L5 and L5-S1 with evidence of bony bridging beyo nd the confines of the graft. 5. Moderate bilateral L1-L2 bony foraminal narrowing LEFT greater than RIGHT. 6. Otherwise mild bony foraminal narrowing described above. 7. Small amount of postoperative seroma in the laminectomy defects.
--- NOTE | 2022-08-19 14:30 | CTR_ITS ---
PROCEDURE INFORMATION: Exam: CTA Abdominal Aorta and Bilateral Lower Extremities (Run-off) Without and With Contrast Exam date and time: 08/19/2022 2:48 PM Age: 76 years old Clinical indication: Weakness; Prior surgery; Surgery date: 6+ months; Surgery type: 14-back, bilat hips, bilat knees, gb, appy, penile implant; Patient HX: HX of prostate cancer; Additional info: Bilateral leg weakness TECHNIQUE: Imaging protocol: Computed tomographic angiography of the abdominal aorta, pelvis and bilateral lower extremities without and with contrast. 3D rendering (Not supervised by radiologist): MIP and/or 3D reconstructed images were created by the technologist. Radiation optimization: All CT scans at this facility use at least one of these dose optimization techniques: automated exposure control; mA and/or kV adjustment per patient size (includes targeted exams where dose is matched to clinical indication); or iterative reconstruction. Contrast material: OMNI 350; Contrast volume: 125 ml; Contrast route: INTRAVENOUS (IV); REPORTING DATA: Count of CT and Cardiac NM exams in prior 12 months: This patient has received 3 known CTs and 0 known cardiac nuclear medicine studies in the 12 months prior to the current study. COMPARISON: CR XR knees AP WB w BI lmt ORTH 08/28/2021 8:43 AM RADIATION DOSE METRICS: Total DLP (mGy-cm): 681.61 FINDINGS: Aorta: No aortic aneurysm. No aortic dissection. Celiac trunk and mesenteric arteries: No occlusion or significant stenosis. Renal arteries: No occlusion or significant stenosis. Right iliac arteries: No occlusion or significant stenosis. Right femoral/popliteal arteries: No occlusion or significant stenosis. Right infrapopliteal arteries: No occlusion or significant stenosis. Left iliac arteries: No occlusion or significant stenosis. Left femoral/popliteal arteries: No occlusion or significant stenosis. Left infrapopliteal arteries: No occlusion or significant stenosis. Liver: No mass. Gallbladder and bile ducts: Unremarkable. No calcified stones. No ductal dilation. Pancreas: Unremarkable. No mass. No ductal dilation. Spleen: Normal. No splenomegaly. Adrenal glands: Normal. No mass. Kidneys and ureters: Right kidney cyst somewhat visualized. Stomach and bowel: Unremarkable. No obstruction. No mucosal thickening. Appendix: No evidence of appendicitis. Urinary bladder: Unremarkable. No mass. Reproductive: Unremarkable as visualized. Intraperitoneal space: Unremarkable. No free air. No significant fluid collection. Lymph nodes: No lymphadenopathy. Bones/joints: Bilateral hip and knee arthroplasty changes. Moderate right knee joint effusion somewhat visualized. Soft tissues: Penile implant. Diffuse subcutaneous edema throughout the lower extremities bilaterally. [place] [id number] IMPRESSION: 1. Lower extremity arterial systems appears patent without significant stenosis. 2. Right kidney cyst somewhat visualized. 3. Penile implant. 4. Bilateral hip and knee arthroplasty changes. 5. Diffuse subcutaneous edema throughout the lower extremities bilaterally, nonspecific. 6. Moderate right knee joint effusion somewhat visualized.
[2022-08-19] MEDS: iohexol 350 mg/mL 500 mL Btl (per mL) IV (15:18)
== END 2022-08-19 13:33 | disposition home or self-care (01) ==
PROVIDERS: PCP Internal Medicine; Visit Provider Orthopaedic Surgery
DX: M48.062 Spinal stenosis, lumbar region with neurogenic claudication (principal); M25.461 Effusion, right knee; M54.10 Radiculopathy, site unspecified; R60.9 Edema, unspecified; N28.1 Cyst of kidney, acquired; Z85.46 Personal history of malignant neoplasm of prostate; Z98.890 Other specified postprocedural states; R29.898 Other symptoms and signs involving the musculoskeletal system
CPT/HCPCS: 72131; 73706; Q9967

== ENCOUNTER 2022-08-20 10:38 | Oncology outpatient (recurring) (ONCR) | payer MEDICARE, OTHER, MEDICAID, SELFPAY ==
[2022-08-20 11:10] VITALS: BP 159/89; PULSE 85; RESP 24; TEMP 36.2; O2SAT 96
[2022-08-20] MEDS: diphenhydrAMINE 50 mg/mL SDV 1mL 25 MG IVP (11:24)
[2022-08-20] MEDS: acetaminophen 325 mg Tablet 650 MG PO (11:24)
[2022-08-20] MEDS: sodium chloride 0.9% 250 ML 75 ML IV (11:25)
[2022-08-20] MEDS: abatacept 500 MG in sodium chloride 0.9% (100 ml) 100 ML 200 MG IV (12:02)
[2022-08-20 12:50] VITALS: BP 161/77; PULSE 83; RESP 18; TEMP 36.3; O2SAT 94
== END 2022-09-11 23:59 | disposition home or self-care (01) ==
PROVIDERS: PCP Internal Medicine; Visit Provider Internal Medicine Rheumatology
DX: M06.042 Rheumatoid arthritis without rheumatoid factor, left hand (principal); M06.041 Rheumatoid arthritis without rheumatoid factor, right hand; Z79.899 Other long term (current) drug therapy
CPT/HCPCS: 96361; 96365; 96375; J0129; J1200; J7050

== ENCOUNTER → 2022-08-28 10:15 | Outpatient (BNVA) | payer MEDICARE, OTHER, SELFPAY | PROVIDERS: PCP Internal Medicine; Visit Provider Nurse Practitioner Family | DX: L57.0 Actinic keratosis (principal); L57.8 Other skin changes due to chronic exposure to nonionizing radiation; L81.4 Other melanin hyperpigmentation | CPT/HCPCS: 17000; 17003; 99214 ==

== ENCOUNTER → 2022-09-01 08:56 | Outpatient (BNVA) | payer MEDICARE, OTHER, SELFPAY | PROVIDERS: PCP Internal Medicine; Visit Provider Physician Assistant | DX: M51.34 Other intervertebral disc degeneration, thoracic region (principal); M51.36 Other intervertebral disc degeneration, lumbar region; M54.9 Dorsalgia, unspecified; G89.29 Other chronic pain; Z98.1 Arthrodesis status | CPT/HCPCS: 99213 ==

== ENCOUNTER → 2022-10-14 15:39 | Outpatient (BNVA) | payer MEDICARE, OTHER, SELFPAY | PROVIDERS: PCP Internal Medicine; Visit Provider Nurse Practitioner Family | DX: I50.9 Heart failure, unspecified (principal); I48.91 Unspecified atrial fibrillation; I49.5 Sick sinus syndrome; I45.9 Conduction disorder, unspecified | CPT/HCPCS: 36415; 80048; 83880; 93005; 99214 ==

== ENCOUNTER 2022-10-15 10:02 | Oncology outpatient (recurring) (ONCR) | payer MEDICARE, OTHER, MEDICAID, SELFPAY ==
[2022-10-15 10:16] VITALS: BP 139/80; PULSE 92; RESP 18; TEMP 37.2; O2SAT 96
[2022-10-15] MEDS: acetaminophen 325 mg Tablet 650 MG PO (10:26)
[2022-10-15] MEDS: sodium chloride 0.9% 250 ML 75 ML IV (10:26)
[2022-10-15] MEDS: diphenhydrAMINE 50 mg/mL SDV 1mL 25 MG IVP (10:26)
[2022-10-15] MEDS: methylPREDNISolone sod succ 40 mg SDV IVP (10:27)
[2022-10-15] MEDS: abatacept 1,000 MG in sodium chloride 0.9% (100 ml) 100 ML 200 MG IV (10:48)
== END 2022-11-12 23:59 | disposition home or self-care (01) ==
PROVIDERS: PCP Internal Medicine; Visit Provider Internal Medicine Rheumatology
DX: M06.042 Rheumatoid arthritis without rheumatoid factor, left hand (principal); M06.041 Rheumatoid arthritis without rheumatoid factor, right hand
CPT/HCPCS: 96365; 96375; J0129; J1200; J2920; J7050

== ENCOUNTER → 2022-11-03 09:34 | Outpatient (BNVA) | payer MEDICARE, OTHER, MEDICAID, SELFPAY | PROVIDERS: PCP Internal Medicine; Visit Provider Nurse Practitioner Family | DX: L57.0 Actinic keratosis (principal); L57.8 Other skin changes due to chronic exposure to nonionizing radiation; L81.4 Other melanin hyperpigmentation | CPT/HCPCS: 17000; 17003; 99214 ==

== ENCOUNTER 2022-11-06 14:05 | Outpatient (CLI) | payer MEDICARE, OTHER, MEDICAID, SELFPAY ==
[2022-11-06 15:20] LABS: Anion Gap 15.2 (5-19); Blood Urea Nitrogen 16 mg/dL (8-23); Calcium 8.9 mg/dL (8.5-10.5); Carbon Dioxide 27 mmol/L (22-29); Chloride 104 mmol/L (98-107); Glucose 160 mg/dL (65-115); NT Pro B Type Natriuretic Pept 149 pg/mL (0-450); Osmolality Calculated 299 mOsm/kg (285-295); Potassium 4.2 mmol/L (3.5-5.1); Sodium 142 mmol/L (136-145)
== END 2022-11-06 14:06 | disposition home or self-care (01) ==
PROVIDERS: PCP Internal Medicine; Visit Provider Nurse Practitioner Family
DX: I50.9 Heart failure, unspecified (principal); I44.0 Atrioventricular block, first degree
CPT/HCPCS: 80048; 83880

== ENCOUNTER → 2022-11-09 11:01 | Outpatient (BNVA) | payer MEDICARE, OTHER, MEDICAID, SELFPAY | PROVIDERS: PCP Internal Medicine; Visit Provider Specialist | DX: M25.561 Pain in right knee; G89.29 Other chronic pain; Z96.653 Presence of artificial knee joint, bilateral | CPT/HCPCS: 73560; 73565; 99214 ==

== ENCOUNTER 2022-11-09 15:40 | Inpatient (IN) | payer MEDICARE, OTHER, MEDICAID, SELFPAY ==
[2022-11-09] VITALS (14 sets, daily range): BP systolic 143–182; BP diastolic 84–130; PULSE 65–104; RESP 12–20; TEMP 36.8–36.9; O2SAT 94–96; BMI 33.7
--- NOTE | 2022-11-09 15:53 | XRR_ITS ---
PROCEDURE INFORMATION: Exam: XR Chest Exam date and time: 11/09/2022 3:59 PM Age: 76 years old Clinical indication: Other: Afib with rvr. Chest pain. TECHNIQUE: Imaging protocol: Radiologic exam of the chest. Views: 1 view. COMPARISON: CR XR chest 2V* [id number] 07/10/2022 11:24 AM FINDINGS: Lungs: Unremarkable. No consolidation. Pleural spaces: Unremarkable. No pleural effusion. No pneumothorax. Heart/Mediastinum: Stable cardiomediastinal silhouette. Bones/joints: Cervicothoracic and thoracolumbar spine fusion hardware noted. XR/XR chest 1V portable [id number] IMPRESSION: No evidence of active cardiopulmonary disease.
--- NOTE | 2022-11-09 15:53 | ECG_ITS ---
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 Measurements Intervals [place] Rate: 103 P: 14 VA: 197 QRS: -61 QRSD: 137 T: 71 QT: 358 QTc: 469 Interpretive Statements ATRIAL FIBRILLATION WITH RAPID VENTRICULAR RATE INTRAVENTRICULAR CONDUCTION DELAY [130+ ms QRS DURATION] LEFT VENTRICULAR HYPERTROPHY AND ST-T CHANGE [VOLTAGE CRITERIA PLUS ST/T ABNORMALITY] Compared to ECG 10/14/2022 15:43:05 ST (T wave) deviation now present Sinus rhythm no longer present Sinus arrhythmia no longer present Myocardial infarct finding still present Electronically Signed On 11-09-2022 20:23:54 CDT by Dario Nuñez M.D. [id number]
--- NOTE | 2022-11-09 15:56 | W.ED.CHESTPA ---
HPI - Chest Pain General: Chief Complaint: Chest Pain Stated Complaint: AFIB WITH RVR Time Seen by Provider: 11/09/22 15:53 Source: patient Mode of arrival: ambulatory History of Present Illness: 68-year-old male presents emergency complaining of chest pressure that began last night. He said several other episodes of this recently they all began at rest mostly resolved within a couple of hours this 1 has persisted. He was diaphoretic and short of breath with it as well. He has no known history of coronary artery disease. He does have a history of carotid disease previous CVA and congestive heart failure he is on clopidogrel and aspirin as well as atorvastatin. MD complaint: chest pain Onset (ago): hour(s) Timing of current episode: episodic Prior episodes: Yes Onset: during rest Pain location: substernal and left chest Severity: moderate Quality: tightness, aching and heaviness Relieving factors: nothing Exacerbating factors: nothing Associated symptoms: Reports palpitations; Deny abdominal pain, dyspnea, fever(s), nausea or vomiting Review of Systems Const: Denies: fever(s), chills, body aches, change in appetite, fatigue or malaise ENMT: Denies: throat pain, ear or mastoid pain, nasal discharge or nasal congestion Card: Reports: chest pain, palpitations and irregular heart rhythm; Denies: edema, dyspnea on exertion or orthopnea Resp: Denies: dyspnea, productive cough or non-productive cough GI: Denies: abdominal pain, nausea, vomiting, hematemesis, coffee ground emesis, diarrhea, constipation, bloating, hematochezia or melena : Denies: flank pain, dysuria, urinary frequency or urinary urgency Skin/Breast: Denies: rash or pruritus PFSH ED PFSH: Medical History Acquired calcaneovarus deformity of both feet Acute blood loss as cause of postoperative anemia Anemia Ascending aortic aneurysm Bilateral hip joint arthritis Carotid artery disease Cervical postlaminectomy syndrome CHF (congestive heart failure), NYHA class III Chronic back pain Chronic venous insufficiency Closed fracture of right patella COPD (chronic obstructive pulmonary disease) COVID-19 DDD (degenerative disc disease), lumbar Degenerative disc disease, thoracic Failed back surgical syndrome Gastroparesis GERD (gastroesophageal reflux disease) 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, greater than 8 weeks High risk medication use History of prostate cancer History of TIA (transient ischemic attack) Hx of cataract Hyperlipidemia Hypothyroid Immunosuppression Inflammatory arthritis Lower extremity edema Lumbar stenosis with neurogenic claudication Medication monitoring encounter Metatarsus adductus Orthostatic hypotension FUAD (obstructive sleep apnea) Osteoarthritis, generalized Radiation cystitis Renal cyst Seronegative rheumatoid arthritis Sleep apnea Undifferentiated connective tissue disease Urgency incontinence Venous insufficiency of both lower extremities Surgical History H/O colonoscopy 2011 H/O esophagogastroduodenoscopy 2012 H/O neck surgery x 2 H/O total knee replacement right and left History of abdominal aortic aneurysm (AAA) repair History of back surgery x 7 History of cardiac cath 7 years ago nonobstructive, negative stress test 1 year ago 2019 History of hip surgery RIGHT 04/11/19 History of penile implant History of tonsillectomy and adenoidectomy History of total bilateral knee replacement (TKR) History of total left hip arthroplasty History of total right hip arthroplasty Hx of appendectomy Hx of cholecystectomy S/P lumbar fusion 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 Status post revision of total replacement of right knee Status post spinal arthrodesis Family History Mother , Age 81 Bleeding disorder Clotting disorder CAD (coronary artery disease) 60s Cancer Stroke Father , Age 94 CAD (coronary artery disease) 80 Dementia Daughter Chronic kidney disease (CKD) Brother CAD (coronary artery disease) [place] Cancer Denies family history of Diabetes Suicide Anesthesia complication Lung disease Social History Smoking and tobacco status: never smoked Alcohol intake: never Substance/Drug Use: never Household members: spouse Marital status: Current occupational status: retired Special danny needs: No Agree to transfusion: Yes Physical Exam Const: GENERAL APPEARANCE: cooperative and comfortable ORIENTATION/CONSCIOUSNESS: Yes awake, Yes oriented to person, Yes oriented to place and Yes oriented to time HENMT: COMMON NORMALS: normocephalic, atraumatic and hearing grossly normal bilaterally HEAD & SCALP: normocephalic and atraumatic Resp: COMMON NORMALS: normal respiratory effort, No retractions, No use of accessory muscles and clear to auscultation bilaterally AUSCULTATION: clear to auscultation bilaterally Cardio: COMMON NORMALS: regular rate and No murmurs present (Cardio) RATE: regular rate RHYTHM: abnormal rhythm irregularly irregular GI: COMMON NORMALS: Soft to palpation and No hepatosplenomegaly present AUSCULTATION: Yes normoactive bowel sounds PALPATION: Yes Soft to palpation, No Tenderness to palpation present (GI), No Guarding due to palpation present (GI) and Yes No hepatosplenomegaly present Extremity: COMMON NORMALS: normal to inspection, capillary refill normal, no clubbing, cyanosis or edema, no calf tenderness and no pedal edema Neuro: SENSORIUM/ORIENTATION: Yes oriented to person, Yes oriented to place and Yes oriented to time Skin: COMMON NORMALS: no rashes or lesions noted GENERAL SKIN EXAM: no rashes or lesions noted Course Vital Signs: Vital signs: Vital Signs Temperature 98.1 F 11/11/22 08:00 Pulse Rate 69 11/11/22 08:00 Respiratory Rate 17 11/11/22 08:00 Blood Pressure 155/83 11/11/22 08:00 Pulse Oximetry 94 11/11/22 08:00 Oxygen Delivery Me thod Room Air 11/11/22 08:00 Fraction of Inspir ed Oxygen 21 11/10/22 04:00 MDM - Chest Pain Medical Decision Making Chest pain new onset A-fib rate is well controlled at this time discussed with hospitalist will admit consult cardiology. Medical Records I reviewed the patient's medical records. Lab Data I reviewed the patient's lab results. 11/11/22 04:15 11/11/22 04:15 Radiology Impressions Chest X-Ray 11/09/22 15:53 IMPRESSION: No evidence of active cardiopulmonary disease. Laboratory Results WBC 6.69 10^3/uL (3.29-11.43) 11/10/22 04:39 RBC 3.40 10^6/uL (3.85-5.65) L 11/10/22 04:39 Hgb 9.30 g/dL (11.27-16.99) L 11/10/22 04:39 Hct 30.5 % (37-53) L 11/10/22 04:39 MCV 89.7 fl (82-101) 11/10/22 04:39 MCH 27.4 pg (27-33) 11/10/22 04:39 MCHC 30.5 g/dL (30-55) 11/10/22 04:39 RDW 15.9 % (12.1-15.1) H 11/10/22 04:39 Plt Count 204 10^3/cmm (157-399) 11/10/22 04:39 MPV 10.0 fL (7.4-10.4) 11/10/22 04:39 Neut % (Auto) 73.8 % 11/10/22 04:39 Lymph % (Auto) 10.9 % 11/10/22 04:39 Hardin % (Auto) 12.4 % 11/10/22 04:39 Eos % (Auto) 1.6 % 11/10/22 04:39 Baso % (Auto) 1.0 % 11/10/22 04:39 Neut # (Auto) 4.93 10^3/uL (1.8-7.7) 11/10/22 04:39 Lymph # (Auto) 0.7 10^3/uL (0.8-4.8) L 11/10/22 04:39 Hardin # (Auto) 0.8 10^3/uL (0.2-0.9) 11/10/22 04:39 Eos # (Auto) 0.1 10^3/uL (0.0-0.8) 11/10/22 04:39 Baso # (Auto) 0.1 10^3/uL (0.0-0.1) 11/10/22 04:39 Nucleated RBC % (auto) 0 % 11/10/22 04:39 Nucleated RBCs # 0.0 /100WBC 11/10/22 04:39 Sodium 139 mmol/L (136-145) 11/10/22 04:39 Potassium 3.7 mmol/L (3.5-5.1) 11/10/22 13:57 Chloride 104 mmol/L (98-107) 11/10/22 04:39 Carbon Dioxide 28 mmol/L (22-29) 11/10/22 04:39 Anion Gap 10.9 (5-19) 11/10/22 04:39 BUN 20 mg/dL (8-23) 11/10/22 04:39 Creatinine 0.9 mg/dL (0.7-1.2) 11/10/22 04:39 GFR Calculation Not Reportable 11/10/22 04:39 Glucose 88 mg/dL (65-115) 11/10/22 04:39 Calculated Osmolality 290 mOsm/kg (285-295) 11/10/22 04:39 Calcium 8.3 mg/dL (8.5-10.5) L 11/10/22 04:39 Phosphorus 3.9 mg/dL (2.5-4.5) 11/10/22 04:39 Magnesium 2.0 mg/dL (1.7-2.3) 11/10/22 13:57 Total Bilirubin 0.3 mg/dL (0.15-1.2) 11/09/22 15:57 AST 16 U/L (0-40) 11/09/22 15:57 ALT 16 U/L (0-41) 11/09/22 15:57 Alkaline Phosphatase 79 U/L (40-130) 11/09/22 15:57 Troponin T Baseline 32 ng/L (0-15) H 11/09/22 15:57 Troponin T 120 Minute 34.67 ng/L (0-15) H 11/09/22 19:45 Delta Troponin T 2.67 ABS# (0-10) 11/09/22 19:45 Troponin T Hi Sens 6Hr 34.83 ng/L (0-15) H 11/09/22 21:58 Troponin T Hi Sens 6Hr Delta 2.83 ng/L (0-12) 11/09/22 21:58 Total Protein 7.1 g/dL (6.6-8.7) 11/09/22 15:57 Albumin 4.4 g/dL (3.5-5.2) 11/09/22 15:57 Globulin 2.7 g/dL (1.3-4.6) 11/09/22 15:57 Discharge Plan Discharge Patient Disposition: Admitted As Inpatient Admit Provider: Giovanni Perez Clinical Impression: Atrial fibrillation, Chest pain, HTN (hypertension), CHF (congestive heart failure), NYHA class III, Carotid artery disease, Anemia Condition: Stable Coding Level of Care Code ED Combination Building Inspector for Lauren Zimmerman
--- NOTE | 2022-11-09 16:01 | XACV_ITS ---
Kojo Marinelli Age: 76 Gender: M : 1945 Exam Date: 11/09/2022 23:27 Ordering Phys: Dario Nuñez MD Technologist: [place] [facility] [place]: BP: 161 / 84 HR: 70 Rhythm: Sinus Technical Quality: Adequate MEASUREMENTS (Male / Female) Normal Values 2D ECHO LV Chamber Size 5.9 cm RV Chamber Size 5.1 cm LVOT Diameter 2.0 cm LV Ejection Fraction MOD 2C 37.8 % LV Ejection Fraction 2C AL 36.7 % LA Diameter 4.6 cm LA Width 4.4 cm LA Height 4.9 cm RA Width 4.5 cm RA Height 5.6 cm Aorta at Sinotubular Diameter 3.3 cm IVC Diameter 1.9 cm M-MODE Aortic Annulus Diameter 3.9 cm LA Ao Ratio MM 1.3 MV E Point Septal Separation 0.8 cm DOPPLER AV Peak Velocity 129.0 cm/s LVOT Peak Velocity 87.0 cm/s AV Area Cont Eq vti 2.4 cm squared AV Area Cont Eq pk 2.2 cm squared MV Area PHT 4.5 cm squared Mitral E to A Ratio 0.8 MV E' Velocity 52.0 cm/s Mitral E to MV E' Ratio 11.0 Mitral E to LV E' Lateral Ratio 8.3 Mitral E to LV E' Septal Ratio 16.4 TR Peak Velocity 145.3 cm/s TR Peak Gradient 8.4 mmHg TV Peak E Velocity 84.0 cm/s Right Atrial Pressure 3.0 mmHg Pulmonary Artery Systolic Pressu 11.4 mmHg FINDINGS Left Ventricle Normal left ventricular size with a diminished ejection fraction of around 50%. Mild diffuse hypokinesia of the septum and the anteroseptal segments.Grade I/IV diastolic dysfunction (abnormal relaxation filling pattern), normal to mildly elevated filling pressures. Right Ventricle Possibly of normal size and ejection fraction Right Atrium Mildly dilated Left Atrium Mildly dilated Mitral Valve Thickened mitral v mild biatrial enlargement alve. Aortic Valve Minimally thickened. Tricuspid Valve No gross abnormalities noted Pulmonic Valve Pulmonic valve not well visualized. Pericardium Normal pericardium without effusion. Aorta Normal ascending aorta dimension. IVC Not well-visualized CONCLUSIONS Normal left ventricular size with a diminished ejection fraction of around 50%. Mild diffuse hypokinesia of the septum and the anteroseptum .Grade I/IV diastolic dysfunction (abnormal relaxation filling pattern), normal to mildly elevated filling pressures. Mild biatrial enlargement Mniimally thickened aortic and mitral valves. Mild biatrial enlargement There is no pericardial effusion. There are no intracardiac masses. Dr Priyanka Rivas MD [facility] (Electronically Signed) Final Date: 10 November 2022 00:53 S
[2022-11-09 16:10] LABS: Basophils # 0.1 10^3/uL (0.0-0.1); Basophils % 0.7 %; Eosinophils % 0.4 %; Hematocrit 35.5 % (37-53); Lymphocytes # 0.9 10^3/uL (0.8-4.8); Mean Corpuscular HGB Conc 30.4 g/dL (30-55); Mean Corpuscular Hemoglobin 27.3 pg (27-33); Mean Corpuscular Volume 89.6 fl (82-101); Mean Platelet Volume 9.6 fL (7.4-10.4); Monocytes # 0.9 10^3/uL (0.2-0.9); Neutrophils # 6.58 10^3/uL (1.8-7.7); Neutrophils % 77.3 %; Nucleated Red Blood Cells % 0 %; Platelet Count 246 10^3/cmm (157-399); Red Blood Count 3.96 10^6/uL (3.85-5.65); Red Cell Distribution Width 15.8 % (12.1-15.1); White Blood Count 8.51 10^3/uL (3.29-11.43)
[2022-11-09] MEDS: metoprolol tartrate 1 mg/1 mL SDV 5 mL 5 MG IVP (16:11)
[2022-11-09] MEDS: aspirin 325 mg Tablet PO (16:12)
[2022-11-09] MEDS: heparin 5,000 unit/mL INJ 1 mL 4000 UNIT IVP (16:18)
[2022-11-09 16:30] LABS: Troponin(5th) Baseline 32 ng/L (0-15)
[2022-11-09 16:32] LABS: Alanine Aminotransferase 16 U/L (0-41); Albumin Level 4.4 g/dL (3.5-5.2); Alkaline Phosphatase 79 U/L (40-130); Anion Gap 16.9 (5-19); Aspartate Amino Transferase 16 U/L (0-40); Blood Urea Nitrogen 16 mg/dL (8-23); Calcium 9.1 mg/dL (8.5-10.5); Carbon Dioxide 25 mmol/L (22-29); Chloride 102 mmol/L (98-107); Globulin 2.7 g/dL (1.3-4.6); Glucose 98 mg/dL (65-115); Osmolality Calculated 291 mOsm/kg (285-295); Potassium 3.9 mmol/L (3.5-5.1); Sodium 140 mmol/L (136-145); Total Bilirubin 0.3 mg/dL (0.15-1.2); Total Protein 7.1 g/dL (6.6-8.7)
--- NOTE | 2022-11-09 17:52 | PM.HP ---
Providers/Chief Complaint Admitting Physician: Giovanni Perez MD Primary Care Provider: Marsha Turner MD Chief Complaint: AFIB WITH RVR History of Present Illness Kojo Marinelli is a 76 year old male with a past medical history significant for anemia, coronary artery disease, heart failure, COPD, hyperlipidemia, hypertension, and rheumatoid arthritis who presents to the emergency department with chest pain. Patient reports onset this morning. Describes as substernal and left-sided chest pain. Reports the pain is a pressure like sensation. Reports similar episodes the past few weeks that are coming and going. Episodes are becoming more frequent and lasting longer. Episodes occur at rest and with exertion. Rates pain today up to a 8 out of 10. Reports NTG helped the pain. Endorses associated symptoms of shortness of breath, decreased exercise tolerance, fatigue, and malaise. States he can only walk a few feet without getting short of breath which is worse that normal for him. Review of Systems Narrative: A complete review of systems was obtained and found to be negative except for symptoms listed in HPI. Medications/Allergies Home Medications Medication Instructions Recorded Confirmed Last Taken Type hydrocortisone 2.5 % topical cream 1 applic topical BID PRN Itching 03/21/19 11/09/22 04/04/19 History liothyronine 5 mcg tablet 10 mcg PO DAILY 07/20/19 11/09/22 10/26/21 History acetaminophen 500 mg capsule 1,000 mg PO Q4H PRN Pain 02/06/20 11/09/22 10/26/21 History mometasone 0.1 % topical solution 1 applic topical DAILY PRN skin 06/27/20 11/09/22 Unknown Rx irritation #60 mL MARK BRACE #1 ea 08/01/20 11/09/22 Unknown Rx aspirin 81 mg tablet,delayed 81 mg PO DAILY #90 tabs 03/24/21 11/09/22 10/20/21 Rx release carvedilol 25 mg tablet 25 mg PO BID #180 tabs 03/24/21 11/09/22 10/27/21 Rx nitroglycerin 0.4 mg sublingual 0.4 mg sublingual Q5M PRN Chest 03/24/21 11/09/22 Unknown Rx tablet (Nitrostat) Pain #25 tabs bumetanide 2 mg tablet 2 mg PO DAILY 10/22/21 11/09/22 10/26/21 History Modification to AFO Brace to the #1 ea 02/02/22 11/09/22 Unknown Rx left potassium chloride 10 mEq See Rx Instructions .Route 04/17/22 11/09/22 Unknown Rx tablet,extended release .COMPLEX #360 tabs diclofenac sodium 1 % topical gel 4 g topical QID PRN Pain #100 grams 06/08/22 11/09/22 Unknown Rx atorvastatin 40 mg tablet 40 mg PO BEDTIME #90 tabs 06/26/22 11/09/22 Unknown Rx leflunomide 20 mg tablet (Arava) 20 mg PO DAILY #90 tabs 08/17/22 11/09/22 Unknown Rx omeprazole 40 mg capsule,delayed 40 mg PO DAILY #90 caps 08/17/22 11/09/22 Unknown Rx release prednisone 20 mg tablet See Rx Instructions PO .COMPLEX 08/17/22 11/09/22 Unknown Rx PRN joint pain flare #30 tabs prednisone 5 mg tablet 5 mg PO DAILY #90 tabs 08/17/22 11/09/22 Unknown Rx isosorbide mononitrate 60 mg 60 mg PO DAILY #90 tabs 10/14/22 11/09/22 Unknown Rx tablet,extended release 24 hr ketoconazole 2 % topical cream 1 applic topical BID PRN 10/14/22 11/09/22 Unknown History levothyroxine 137 mcg tablet 137 mcg PO DAILY 10/14/22 11/09/22 Unknown History (Synthroid) hydralazine 25 mg tablet 50 mg PO TID #180 tabs 10/19/22 11/09/22 Unknown Rx Allergies Allergy/AdvReac Type Severity Reaction Status Date / Time metoclopramide [From Reglan] Allergy Unknown Verified 11/09/22 14:35 morphine Allergy ALGY-Hives Verified 11/09/22 14:35 tamsulosin [From Flomax] Allergy ADR/ALGY-Hy Verified 11/09/22 14:35 potension zolpidem [From Ambien] Allergy Unknown Verified 11/09/22 14:35 hydrocodone AdvReac Mild Hypotension Verified 11/09/22 14:35 oxycodone AdvReac Mild Hypotension Verified 11/09/22 14:35 paper tape Allergy tears skin Uncoded 11/09/22 14:35 off PFSH Acute PFSH: Medical History Acquired calcaneovarus deformity of both feet Acute blood loss as cause of postoperative anemia Anemia Ascending aortic aneurysm Bilateral hip joint arthritis Carotid artery disease Cervical postlaminectomy syndrome CHF (congestive heart failure), NYHA class III Chronic back pain Chronic venous insufficiency Closed fracture of right patella COPD (chronic obstructive pulmonary disease) COVID-19 DDD (degenerative disc disease), lumbar Degenerative disc disease, thoracic Failed back surgical syndrome Gastroparesis GERD (gastroesophageal reflux disease) 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, greater than 8 weeks High risk medication use History of prostate cancer History of TIA (transient ischemic attack) Hx of cataract Hyperlipidemia Hypothyroid Immunosuppression Inflammatory arthritis Lower extremity edema Lumbar stenosis with neurogenic claudication Medication monitoring encounter Metatarsus adductus Orthostatic hypotension FUAD (obstructive sleep apnea) Osteoarthritis, generalized Radiation cystitis Renal cyst Seronegative rheumatoid arthritis Sleep apnea Undifferentiated connective tissue disease Urgency incontinence Venous insufficiency of both lower extremities Surgical History H/O colonoscopy 2011 H/O esophagogastroduodenoscopy 2012 H/O neck surgery x 2 H/O total knee replacement right and left History of abdominal aortic aneurysm (AAA) repair History of back surgery x 7 History of cardiac cath 7 years ago nonobstructive, negative stress test 1 year ago 2019 History of hip surgery RIGHT 04/11/19 History of penile implant History of tonsillectomy and adenoidectomy History of total bilateral knee replacement (TKR) History of total left hip arthroplasty History of total right hip arthroplasty Hx of appendectomy Hx of cholecystectomy S/P lumbar fusion 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 Status post revision of total replacement of right knee Status post spinal arthrodesis Family History Mother , Age 81 Bleeding disorder Clotting disorder CAD (coronary artery disease) 60s Cancer Stroke Father , Age 94 CAD (coronary artery disease) 80 Dementia Daughter Chronic kidney disease (CKD) Brother CAD (coronary artery disease) [place] Cancer Denies family history of Diabetes Suicide Anesthesia complication Lung disease Social History Smoking and tobacco status: never smoked Alcohol intake: never Substance/Drug Use: never Household members: spouse Marital status: Current occupational status: retired Special danny needs: No Agree to transfusion: Yes Vitals/I&O/Wt Last Vital Signs Temp 98.2 F 11/09/22 15:49 Pulse 79 11/09/22 17:30 Resp 16 11/09/22 17:30 BP 163/96 11/09/22 17:30 Pulse Ox 95 11/09/22 17:30 O2 Del Method Room Air 11/09/22 15:49 Weight last 48 hrs Weight 112.945 kg Physical Exam Narrative: General: Patient is awake. In moderate respiratory distress. Head: Normocephalic. Atraumatic. EOM intact. Neck: No JVD. Cardiovascular: Normal S1 ans S1. No gallops. No murmurs. 2+ pitting edema in bilateral lower extremities. Lungs: Moderate respiratory distress. Breath sounds are diminished in bilateral bases. Dependent crackles. Unable to speak in a full sentence. Tachypnea. Increased work of breathing. Skin: No jaundice. Abdomen: Normal bowel sounds, abdomen soft and nontender. Extremities: No cyanosis or clubbing. Musculoskeletal: No erythematous joints. Neurological: Moves all 4 extremities. No myoclonus. Data 11/09/22 15:57 11/09/22 15:57 A&P Assessment and plan (1) Chest pain: Troponin elevated, will trend EKG reviewed Telemetry monitoring NPO after midnight Stress test ordered Cardiology consulted, appreciate recommendations Qualifiers: Chest pain type: unspecified Qualified Code(s): R07.9 - Chest pain, unspecified (2) CHF (congestive heart failure), NYHA class III: Velazquez for strict I&Os Daily weights Rotate to IV Bumex Qualifiers: Congestive heart failure type: unspecified Qualified Code(s): I50.9 - Heart failure, unspecified (3) Atrial fibrillation: Initially in a-fib w/ RVR per report [place] [employer] electrolytes (4) Seronegative rheumatoid arthritis: Known associated between coronary disease and RA noted (5) Anemia: HGB stable Continue to monitor Qualifiers: Anemia type: unspecified type Qualified Code(s): D64.9 - Anemia, unspecified (6) HTN (hypertension): Continue home medications, awaiting for home med list update Qualifiers: Hypertension type: essential hypertension Qualified Code(s): I10 - Essential (primary) hypertension Plan DVT ppx: Lovenox Attestations Medical Necessity Statement*: Patient presents with chest pain and severe shortness of breath, found to have respiratory distress with a-fib with RVR, volume overload, and suspected unstable angina with expected hospitalization not to cross two midnights Coding Level of Care Code Acute Code for Chg Fwd Diagnoses Chest pain R07.9 Chest pain type: unspecified CHF (congestive heart failure), NYHA class III I50.9 Congestive heart failure type: unspecified Atrial fibrillation I48.91 Seronegative rheumatoid arthritis M06.00 Anemia D64.9 Anemia type: unspecified type HTN (hypertension) I10 Hypertension type: essential hypertension
--- NOTE | 2022-11-09 17:53 | ECG_ITS ---
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 Measurements Intervals [place] Rate: 69 P: 62 [place]: 208 QRS: -56 QRSD: 138 T: -3 QT: 421 QTc: 453 Interpretive Statements SINUS RHYTHM WITH MARKED RHYTHM IRREGULARITY, POSSIBLE NON-CONDUCTED PAC, SA BLOCK, AV BLOCK, OR SINUS PAUSE INTRAVENTRICULAR CONDUCTION DELAY [130+ ms QRS DURATION] MODERATE VOLTAGE CRITERIA FOR LVH, CONSIDER NORMAL VARIANT [MEETS CRITERIA IN ONE OF: R(aVL), S(V1), R(V5), R(V5/V6)+S(V1)] POSSIBLE SEPTAL MYOCARDIAL INFARCTION , OF INDETERMINATE AGE [30 ms Q WAVE IN V1/V2 Compared to ECG 11/09/2022 15:45:22 Sinus tachycardia no longer present ST (T wave) deviation no longer present Myocardial infarct finding still present Electronically Signed On 11-09-2022 20:36:49 CDT by Dario Nuñez M.D. [id number]
[2022-11-09] MEDS: metoprolol tartrate 25 mg Tablet PO (18:16)
[2022-11-09] MEDS: metoprolol tartrate 1 mg/1 mL SDV 5 mL 2.5 MG IVP (18:17)
--- NOTE | 2022-11-09 19:24 | USCV_ITS ---
Kojo Marinelli Age: 76 Gender: M : 1945 Exam Date: 11/09/2022 23:27 Ordering Phys: Dario Nuñez MD Technologist: CT Exam Location: [facility] – [place] Indication: BP: 161 / 84 HR: 70 Rhythm: Sinus Technical Quality: Adequate MEASUREMENTS (Male / Female) Normal Values 2D ECHO LV Chamber Size 5.9 cm RV Chamber Size 5.1 cm LVOT Diameter 2.0 cm LV Ejection Fraction MOD 2C 37.8 % LV Ejection Fraction 2C AL 36.7 % LA Diameter 4.6 cm LA Width 4.4 cm LA Height 4.9 cm RA Width 4.5 cm RA Height 5.6 cm Aorta at Sinotubular Diameter 3.3 cm IVC Diameter 1.9 cm M-MODE Aortic Annulus Diameter 3.9 cm LA Ao Ratio MM 1.3 MV E Point Septal Separation 0.8 cm DOPPLER AV Peak Velocity 129.0 cm/s LVOT Peak Velocity 87.0 cm/s AV Area Cont Eq vti 2.4 cm squared AV Area Cont Eq pk 2.2 cm squared MV Area PHT 4.5 cm squared Mitral E to A Ratio 0.8 MV E' Velocity 52.0 cm/s Mitral E to MV E' Ratio 11.0 Mitral E to LV E' Lateral Ratio 8.3 Mitral E to LV E' Septal Ratio 16.4 TR Peak Velocity 145.3 cm/s TR Peak Gradient 8.4 mmHg TV Peak E Velocity 84.0 cm/s Right Atrial Pressure 3.0 mmHg Pulmonary Artery Systolic Pressu 11.4 mmHg FINDINGS Left Ventricle Normal left ventricular size with a diminished ejection fraction of around 50%. Mild diffuse hypokinesia of the septum and the anteroseptal segments.Grade I/IV diastolic dysfunction (abnormal relaxation filling pattern), normal to mildly elevated filling pressures. Right Ventricle Possibly of normal size and ejection fraction Right Atrium Mildly dilated Left Atrium Mildly dilated Mitral Valve Thickened mitral v mild biatrial enlargement alve. Aortic Valve Minimally thickened. Tricuspid Valve No gross abnormalities noted Pulmonic Valve Pulmonic valve not well visualized. Pericardium Normal pericardium without effusion. Aorta Normal ascending aorta dimension. IVC Not well-visualized CONCLUSIONS Normal left ventricular size with a diminished ejection fraction of around 50%. Mild diffuse hypokinesia of the septum and the anteroseptum .Grade I/IV diastolic dysfunction (abnormal relaxation filling pattern), normal to mildly elevated filling pressures. Mild biatrial enlargement Mniimally thickened aortic and mitral valves. Mild biatrial enlargement There is no pericardial effusion. There are no intracardiac masses. Dr Priyanka Rivas MD [facility] (Electronically Signed) Final Date: 10 November 2022 00:53 S
--- NOTE | 2022-11-09 19:24 | ECG_ITS ---
[facility] Test Date: 2022-11-10 Pat Name: Kojo Marinelli Department: Room: 104 Gender: Male Investment Professional: Aurelia Hazel : 1945 Requested By: Giovanni Vickers Order Number: [id number] Tessa MD: Dario Nuñez M.D. Interpretive Statements NAME OF STUDY: LEXISCAN SESTAMIBI STRESS TEST INDICATION: [Chest Pressure] Procedure: At the baseline, the blood pressure was 148/80mmHg with a heart rate of 80 bpm. The electrocardiogram showed normal sinus rhythm, left axis deviation with normal ST and T's. The Lexiscan was infused over a period of 20 seconds. A total of 0.4 mg of Lexiscan was infused. The stress phase was continued for a total of 5 minutes. Heart rate was at the end of stress phase was 101 bpm and a blood pressure of 113/65 mmHg. The EKG at the peak infusion revealed normal sinus rhythm with no significant ST-T wave changes. Sestamibi was injected 20 seconds after the Lexiscan infusion. Blood pressure at the end of recovery phase was 115/66mmHg with a heart rate of 96 bpm. Conclusion: 1. Normal EKG response to Lexiscan infusion 2. No Lexiscan induced chest pain or cardiac arrhythmia. 3. Normal blood pressure and heart rate response. 4. Sestamibi/sestamibi perfusion scan pending; see separate report. Electronically Signed On 11-24-2022 10:13:22 CDT by Dario Nuñez M.D. [id number]
[2022-11-09 19:27] LABS: Magnesium 2.1 mg/dL (1.7-2.3)
--- NOTE | 2022-11-09 20:09 | P.CONIM_ITS ---
Providers/Reason For Consult Consulting Physician/Specialty*: BETZY Rivas MD/cardiology Reason for Consult*: Shortness of breath/new onset atrial fibrillation/atypical chest symptoms Requesting Physician: Patient is shortness of breath, chest pain, new onset of atrial fibrillation with rapid ventricular rate Attending Physician: Giovanni Perez MD Primary Care Provider: Marsha Turner MD History of Present Illness History of Present Illness Kojo Marinelli is a 76 year old male with a history of hypertensive heart disease, diastolic heart failure, multiple other problems, apparently has been having increasing shortness of breath over the last 2 weeks. Approximately 2 weeks ago, he had an episode of chest tightness/heaviness, lasting for 2 hours or so. Pain was radiating to the left side of the neck. The symptoms gradually subsided. Since then, he been having worsening shortness of breath. He had ano ther episode of chest tightness/heaviness today, lasting for several hours. The shortness of breath has been progressively worse to the point that even at rest, he is shortness of breath. No fever, chills or cough. No palpitations. No syncopal episodes. Patient is known to have multiple medical problems hypertension, hx ascending thoracic aortic aneurysm, TIA, anemia, carotid artery disease, CHF NYHA class III, chronic venous insufficiency, hyperlipidemia, GERD, COPD and hypothyroidism, seronegative rheumatoid arthritis involving both hands, CORBY positive, on high risk medication. He denies any fever or chills. No significant cough. He may have some amount of orthopnea. He has been noticing some swelling of the extremities. No other specific complaints. He was seen at the urgent care clinic today. Because of the new onset of atrial fibrillation and increasing shortness of breath, he was sent to the emergency room for further evaluation. He is in the process of being admitted to the hospital. Review of Systems Narrative: CONSTITUTIONAL: No fever or chills. Has a moment of generalized weakness EYES: No blurring of vision or other visual disturbances lately. ENT: No hoarseness of voice, auditory disturbances or sore throat. CARDIOVASCULAR: As mentioned above. RESPIRATORY: Shortness of breath as mentioned above GASTROINTESTINAL: No hematemesis or melena. GENITOURINARY: No dysuria or hematuria. INTEGUMENTARY: No skin rashes or history of skin cancer. NEURO: Peripheral neuropathy PSYCHIATRIC: No history of psychosis or major depression. HEMATOLOGIC: No bleeding disorders or significant anemia. ENDOCRINE: History of hypothyroidism MUSCULOSKELETAL: Seronegative rheumatoid arthritis ALLERGY/IMMUNOLOGY: As mentioned above. Medications/Allergies Home Medications Medication Instructions Recorded Confirmed Last Taken Type hydrocortisone 2.5 % topical cream 1 applic topical BID PRN Itching 03/21/19 11/10/22 04/04/19 History liothyronine 5 mcg tablet 10 mcg PO DAILY 07/20/19 11/10/22 11/09/22 07:00 History acetaminophen 500 mg capsule 1,000 mg PO Q4H PRN Pain 02/06/20 11/10/22 10/26/21 History mometasone 0.1 % topical solution 1 applic topical DAILY PRN skin 06/27/20 11/10/22 Unknown Rx irritation #60 mL MARK BRACE #1 ea 08/01/20 11/10/22 Unknown Rx aspirin 81 mg tablet,delayed 81 mg PO DAILY #90 tabs 03/24/21 11/10/22 11/09/22 07:00 Rx release carvedilol 25 mg tablet 25 mg PO BID #180 tabs 03/24/21 11/10/22 11/09/22 07:00 Rx nitroglycerin 0.4 mg sublingual 0.4 mg sublingual Q5M PRN Chest 03/24/21 11/10/22 Unknown Rx tablet (Nitrostat) Pain #25 tabs bumetanide 2 mg tablet 2 mg PO DAILY 10/22/21 11/10/22 11/08/22 21:00 History Modification to AFO Brace to the #1 ea 02/02/22 11/10/22 Unknown Rx left potassium chloride 10 mEq See Rx Instructions .Route 04/17/22 11/10/22 11/09/22 07:00 Rx tablet,extended release .COMPLEX #360 tabs diclofenac sodium 1 % topical gel 4 g topical QID PRN Pain #100 grams 06/08/22 11/10/22 Unknown Rx atorvastatin 40 mg tablet 40 mg PO BEDTIME #90 tabs 06/26/22 11/10/22 11/08/22 21:00 Rx leflunomide 20 mg tablet (Arava) 20 mg PO DAILY #90 tabs 08/17/22 11/10/22 11/09/22 07:00 Rx omeprazole 40 mg capsule,delayed 40 mg PO DAILY #90 caps 08/17/22 11/10/22 11/09/22 07:00 Rx release prednisone 5 mg tablet 5 mg PO DAILY #90 tabs 08/17/22 11/10/22 11/09/22 07:00 Rx isosorbide mononitrate 60 mg 60 mg PO DAILY #90 tabs 10/14/22 11/10/22 11/09/22 07:00 Rx tablet,extended release 24 hr ketoconazole 2 % topical cream 1 applic topical BID PRN Skin 10/14/22 11/10/22 Unknown History Irritation levothyroxine 137 mcg tablet 137 mcg PO DAILY 10/14/22 11/10/22 Unknown History (Synthroid) hydralazine 25 mg tablet 50 mg PO TID #180 tabs 10/19/22 11/10/22 11/09/22 07:00 Rx Allergies Allergy/AdvReac Type Severity Reaction Status Date / Time metoclopramide [From Reglan] Allergy Unknown Verified 11/09/22 14:35 morphine Allergy ALGY-Hives Verified 11/09/22 14:35 tamsulosin [From Flomax] Allergy ADR/ALGY-Hy Verified 11/09/22 14:35 potension zolpidem [From Ambien] Allergy Unknown Verified 11/09/22 14:35 hydrocodone AdvReac Mild Hypotension Verified 11/09/22 14:35 oxycodone AdvReac Mild Hypotension Verified 11/09/22 14:35 paper tape Allergy tears skin Uncoded 11/09/22 14:35 off PFSH Acute PFSH: Medical History Acquired calcaneovarus deformity of both feet Acute blood loss as cause of postoperative anemia Anemia Ascending aortic aneurysm Bilateral hip joint arthritis Carotid artery disease Cervical postlaminectomy syndrome CHF (congestive heart failure), NYHA class III Chronic back pain Chronic venous insufficiency Closed fracture of right patella COPD (chronic obstructive pulmonary disease) COVID-19 DDD (degenerative disc disease), lumbar Degenerative disc disease, thoracic Failed back surgical syndrome Gastroparesis GERD (gastroesophageal reflux disease) 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, greater than 8 weeks High risk medication use History of prostate cancer History of TIA (transient ischemic attack) Hx of cataract Hyperlipidemia Hypothyroid Immunosuppression Inflammatory arthritis Lower extremity edema Lumbar stenosis with neurogenic claudication Medication monitoring encounter Metatarsus adductus Orthostatic hypotension FUAD (obstructive sleep apnea) Osteoarthritis, generalized Radiation cystitis Renal cyst Seronegative rheumatoid arthritis Sleep apnea Undifferentiated connective tissue disease Urgency incontinence Venous insufficiency of both lower extremities Surgical History H/O colonoscopy 2011 H/O esophagogastroduodenoscopy 2012 H/O neck surgery x 2 H/O total knee replacement right and left History of abdominal aortic aneurysm (AAA) repair History of back surgery x 7 History of cardiac cath 7 years ago nonobstructive, negative stress test 1 year ago 2019 History of hip surgery RIGHT 04/11/19 History of penile implant History of tonsillectomy and adenoidectomy History of total bilateral knee replacement (TKR) History of total left hip arthroplasty History of total right hip arthroplasty Hx of appendectomy Hx of cholecystectomy S/P lumbar fusion 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 Status post revision of total replacement of right knee Status post spinal arthrodesis Family History Mother , Age 81 Bleeding disorder Clotting disorder CAD (coronary artery disease) 60s Cancer Stroke Father , Age 94 CAD (coronary artery disease) 80 Dementia Daughter Chronic kidney disease (CKD) Brother CAD (coronary artery disease) [place] Cancer Denies family history of Diabetes Suicide Anesthesia complication Lung disease Social History Smoking and tobacco status: never smoked Alcohol intake: never Substance/Drug Use: never Household members: spouse Marital status: Current occupational status: retired Special danny needs: No Agree to transfusion: Yes Vitals/I&O/Wt Last Vital Signs Temp 98.2 F 11/09/22 15:49 Pulse 79 11/09/22 17:30 Resp 16 11/09/22 17:30 BP 163/96 11/09/22 17:30 Pulse Ox 95 11/09/22 17:30 O2 Del Method Room Air 11/09/22 15:49 Weight last 48 hrs Weight 249 lb Physical Exam Narrative: GENERAL: The patient is alert and oriented times three. Not in any acute distress. HEENT: No significant pallor, icterus or lymphadenopathy.Oral cavity: There are no mucous membrane lesions. NECK: Trachea appears to be central. No masses noted. No JVD or thyromegaly appreciated. RESPIRATORY: Chest is symmetrical. No intercostals muscle retraction or any accessory muscle activation. There is no chest wall tenderness. Breath sounds are heard bilaterally. No rales or rhonchi heard. No evidence of any consolidation. BREASTS: Deferred. HEART: The heart sounds are normal. No S3 or S4. Short systolic murmur in the lower sternal border. No diastolic murmurs no pericardial rub ABDOMEN: No vessel pulsations or distention. No tenderness. No organomegaly appreciated. Bowel sounds are normally heard. : Deferred. RECTAL: Deferred. LYMPHATIC: No lymphadenopathy noted in the neck. EXTREMITIES: Trace to 1+ edema with no cyanosis. MUSCULOSKELETAL: No acute joint deformities or swelling SKIN: There are no significant rashes or ecchymosis NEUROPSYCHIATRIC: The patient is alert and oriented x3. Appears to be in a good mood. No tremors or rigidity noted. Data 11/10/22 04:39 11/10/22 13:57 Other Labs: Laboratory Last Values WBC 8.51 10^3/uL (3.29-11.43) 11/09/22 15:57 RBC 3.96 10^6/uL (3.85-5.65) 11/09/22 15:57 Hgb 10.80 g/dL (11.27-16.99) L 11/09/22 15:57 Hct 35.5 % (37-53) L 11/09/22 15:57 MCV 89.6 fl (82-101) 11/09/22 15:57 MCH 27.3 pg (27-33) 11/09/22 15:57 MCHC 30.4 g/dL (30-55) 11/09/22 15:57 RDW 15.8 % (12.1-15.1) H 11/09/22 15:57 Plt Count 246 10^3/cmm (157-399) 11/09/22 15:57 MPV 9.6 fL (7.4-10.4) 11/09/22 15:57 Neut % (Auto) 77.3 % 11/09/22 15:57 Lymph % (Auto) 11.0 % 11/09/22 15:57 [place] % (Auto) 10.0 % 11/09/22 15:57 Eos % (Auto) 0.4 % 11/09/22 15:57 Baso % (Auto) 0.7 % 11/09/22 15:57 Neut # (Auto) 6.58 10^3/uL (1.8-7.7) 11/09/22 15:57 Lymph # (Auto) 0.9 10^3/uL (0.8-4.8) 11/09/22 15:57 [place] # (Auto) 0.9 10^3/uL (0.2-0.9) 11/09/22 15:57 Eos # (Auto) 0.0 10^3/uL (0.0-0.8) 11/09/22 15:57 Baso # (Auto) 0.1 10^3/uL (0.0-0.1) 11/09/22 15:57 Nucleated RBC % (auto) 0 % 11/09/22 15:57 Nucleated RBCs # 0.0 /100WBC 11/09/22 15:57 Sodium 140 mmol/L (136-145) 11/09/22 15:57 Potassium 3.9 mmol/L (3.5-5.1) 11/09/22 15:57 Chloride 102 mmol/L (98-107) 11/09/22 15:57 Carbon Dioxide 25 mmol/L (22-29) 11/09/22 15:57 Anion Gap 16.9 (5-19) 11/09/22 15:57 BUN 16 mg/dL (8-23) 11/09/22 15:57 Creatinine 1.1 mg/dL (0.7-1.2) 11/09/22 15:57 GFR Calculation Not Reportable 11/09/22 15:57 Glucose 98 mg/dL (65-115) 11/09/22 15:57 Calculated Osmolality 291 mOsm/kg (285-295) 11/09/22 15:57 Calcium 9.1 mg/dL (8.5-10.5) 11/09/22 15:57 Magnesium 2.1 mg/dL (1.7-2.3) 11/09/22 15:57 Total Bilirubin 0.3 mg/dL (0.15-1.2) 11/09/22 15:57 AST 16 U/L (0-40) 11/09/22 15:57 ALT 16 U/L (0-41) 11/09/22 15:57 Alkaline Phosphatase 79 U/L (40-130) 11/09/22 15:57 Troponin T Baseline 32 ng/L (0-15) H 11/09/22 15:57 Troponin T 120 Minute 34.67 ng/L (0-15) H 11/09/22 19:45 Delta Troponin T 2.67 ABS# (0-10) 11/09/22 19:45 Total Protein 7.1 g/dL (6.6-8.7) 11/09/22 15:57 Albumin 4.4 g/dL (3.5-5.2) 11/09/22 15:57 Globulin 2.7 g/dL (1.3-4.6) 11/09/22 15:57 EKG 1: My Interpretation: The EKG from the urgent care clinic revealed atrial fibrillation with rapid ventricular rate, features of LVH, left anterior fascicular block. EKG 2: My Interpretation: Clinical EGD from our emergency room revealed sinus rhythm with first-degree AV block. Interventricular conduction delay. Left axis deviation. Positive anterior for LVH. Other data: Cardiac catheterization on 12/17/2020 ? 1. No disease noted in the Left Main, Left Anterior Descending, Right, or Circumflex coronary arteries. ? 2. Hyperdynamic left ventricular systolic function. Ejection fraction of 70%. Right atrial pressure was 15 mmHg. The PA mean pressure was 28 mmHg. RV pressure was 44/19 with a mean of 17. Pulmonary capillary wedge pressure was 17. Cardiac output was 9 L/min. ? * Continue current medical management and risk factor modification. Diagnostic RX Recommendation: ? ? medical therapy and/or counseling A&P Assessment and plan (1) Atrial fibrillation: Patient seems to be in intermittent atrial fibrillation. Further management of his condition, I may start him on amiodarone 400 mg p.o. twice daily. He also started on subcu Lovenox, 100 mg every 12 hours. (2) Chest pain: Most likely from the atrial arrhythmia and the accelerated hypertension. Hopefully this may improve with the sinus rhythm and blood pressure control. Qualifiers: Chest pain type: unspecified Qualified Code(s): R07.9 - Chest pain, unspecified (3) CHF (congestive heart failure), NYHA class III: Careful IV diuresis. An echocardiogram would be helpful to evaluate LV function and rule out any other pathology. Qualifiers: Congestive heart failure type: unspecified Qualified Code(s): I50.9 - Heart failure, unspecified (4) HTN (hypertension): Optimizing the antihypertensive medication. Apparently had some problems with the lisinopril. So we may hold off on the BIGG inhibitor. Continue on the carvedilol, isosorbide mononitrate and hydralazine. I may increase hydralazine to 50 mg every 8 hours Qualifiers: Hypertension type: essential hypertension Qualified Code(s): I10 - Essential (primary) hypertension Plan His other problems are History of TIA Hypothyroidism Seronegative rheumatoid arthritis COPD Anemia Chronic venous insufficiency Ascending thoracic aortic aneurysm Degenerative joint disease GERD Based on the clinical progress and the results of the above, further recommendations will be made. Thank you for the opportunity to evaluate this patient and make these recommendations Consult Attestations Medical Necessity Statement: Patient requires continued hospital stay for close monitoring and further management Coding Level of Care Code 94941 Diagnoses Atrial fibrillation I48.91 Chest pain R07.9 Chest pain type: unspecified CHF (congestive heart failure), NYHA class III I50.9 Congestive heart failure type: unspecified HTN (hypertension) I10 Hypertension type: essential hypertension
[2022-11-09 20:15] LABS: Troponin 5 2HR 34.67 ng/L (0-15)
[2022-11-09 20:17] LABS: Troponin 5 2HR Delta 2.67 ABS# (0-10)
[2022-11-09] MEDS: bumetanide 0.25 mg/mL SDV 4 mL 1 MG IVP (21:08)
[2022-11-09] MEDS: hyDRALAzine 50 mg Tablet PO (21:08)
[2022-11-09] MEDS: enoxaparin 120 mg/0.8 mL Syringe 110 MG SUBCUT (21:08)
[2022-11-09] MEDS: atorvastatin 40 mg Tablet PO (21:08)
--- NOTE | 2022-11-09 21:53 | ECG_ITS ---
[facility] Test Date: 2022-11-09 Pat Name: Kojo Marinelli Department: Room: 104 Gender: Male [employer]ified [employer] Supervisor: : 1945 Requested By: Checo Wall Order Number: [id number] Tessa MD: Dario Nuñez M.D. Measurements Intervals [place] Rate: 73 P: 29 MI: 213 QRS: -54 QRSD: 138 T: -8 QT: 432 QTc: 479 Interpretive Statements SINUS RHYTHM WITH FIRST DEGREE AV BLOCK INTRAVENTRICULAR CONDUCTION DELAY [130+ ms QRS DURATION] MODERATE VOLTAGE CRITERIA FOR LVH, CONSIDER NORMAL VARIANT [MEETS CRITERIA IN ONE OF: R(aVL), S(V1), R(V5), R(V5/V6)+S(V1)] Compared to ECG 11/09/2022 18:24:35 First degree AV block now present Myocardial infarct finding no longer present Electronically Signed On 11-09-2022 20:25:29 CDT by Dario Nuñez M.D. [email or web address]/[id number]
[2022-11-09 22:45] LABS: Troponin 5 6HR 34.83 ng/L (0-15)
[2022-11-09 22:50] LABS: Troponin 5 6HR Delta 2.83 ng/L (0-12)
[2022-11-10] VITALS (13 sets, daily range): BP systolic 90–167; BP diastolic 63–80; PULSE 72–100; RESP 12–24; TEMP 36.6–37.3; O2SAT 93–95
[2022-11-10 05:11] LABS: Basophils # 0.1 10^3/uL (0.0-0.1); Eosinophils # 0.1 10^3/uL (0.0-0.8); Eosinophils % 1.6 %; Hematocrit 30.5 % (37-53); Lymphocytes # 0.7 10^3/uL (0.8-4.8); Lymphocytes % 10.9 %; Mean Corpuscular HGB Conc 30.5 g/dL (30-55); Mean Corpuscular Hemoglobin 27.4 pg (27-33); Mean Corpuscular Volume 89.7 fl (82-101); Monocytes # 0.8 10^3/uL (0.2-0.9); Monocytes % 12.4 %; Neutrophils # 4.93 10^3/uL (1.8-7.7); Neutrophils % 73.8 %; Nucleated Red Blood Cells % 0 %; Platelet Count 204 10^3/cmm (157-399); Red Cell Distribution Width 15.9 % (12.1-15.1); White Blood Count 6.69 10^3/uL (3.29-11.43)
[2022-11-10 05:26] LABS: Blood Urea Nitrogen 20 mg/dL (8-23); Calcium 8.3 mg/dL (8.5-10.5); Carbon Dioxide 28 mmol/L (22-29); Chloride 104 mmol/L (98-107); Glucose 88 mg/dL (65-115); Magnesium 1.9 mg/dL (1.7-2.3); Osmolality Calculated 290 mOsm/kg (285-295); Phosphorus 3.9 mg/dL (2.5-4.5); Sodium 139 mmol/L (136-145)
[2022-11-10 05:28] LABS: Anion Gap 10.9 (5-19); Potassium 3.9 mmol/L (3.5-5.1)
[2022-11-10] MEDS: bumetanide 0.25 mg/mL SDV 4 mL 1 MG IVP ×2 (07:58→11:41)
[2022-11-10] MEDS: regadenoson 0.4 Mg/5 ml Syringe IVP (09:32)
--- NOTE | 2022-11-10 09:39 | PC.NURSE ---
pt was taken to [facility] for his cardiac stress test.
[2022-11-10] MEDS: aspirin 81 mg EC Tablet PO (11:23)
[2022-11-10] MEDS: carvedilol 25 mg Tablet PO ×2 (11:24→21:19)
[2022-11-10] MEDS: pantoprazole DR 40 mg Tablet PO (11:24)
[2022-11-10] MEDS: isosorbide mononitrate ER 60 mg Tablet PO (11:25)
[2022-11-10] MEDS: enoxaparin 120 mg/0.8 mL Syringe 110 MG SUBCUT ×2 (11:26→21:20)
[2022-11-10] MEDS: hyDRALAzine 50 mg Tablet PO ×2 (11:26→14:40)
[2022-11-10] MEDS: levothyroxine 137 mcg Tablet PO (11:41)
[2022-11-10] MEDS: liothyronine 5 mcg Tablet 10 MCG PO (11:50)
--- NOTE | 2022-11-10 13:39 | P.PN_ITS ---
Subjective Subjective: Kojo reports he has continued shortness of breath even at rest. Talking and exertion worsens his symptoms. He endorses continued lower extremity edema. Reports the chest pressure overnight is better. He is n.p.o. for cardiac stress testing later today. Medications: Reviewed: Yes Vitals/I&O/Wt Last Vital Signs Temp 97.9 F 11/10/22 12:00 Pulse 100 11/10/22 12:00 Resp 21 H 11/10/22 12:00 BP 135/80 11/10/22 12:00 Pulse Ox 93 11/10/22 12:00 O2 Del Method Room Air 11/10/22 12:00 FiO2 21 11/10/22 04:00 11/09/22 11/10/22 11/10/22 22:59 06:59 14:59 Output Total 1300 / 1300 Balance -1300 / -1300 Weight last 48 hrs Weight 112.945 kg Weight 112.945 kg Physical Exam Narrative: General: Patient is awake. In mild to moderate respiratory distress. Head: Normocephalic. EOM intact. Neck: No JVD. Cardiovascular: Normal S1 and S1. No gallops. No murmurs. 2+ pitting edema in bilateral lower extremities, unchanged from yesterday's exam. Lungs: Initially mild, but somewhat moderate respiratory distress after speaking for a while. Breath sounds are diminished in bilateral bases. Dependent crackles. Tachypnea. Increased work of breathing. Skin: No jaundice. Abdomen: Normal bowel sounds, abdomen soft and nontender. Extremities: No cyanosis or clubbing. Musculoskeletal: No erythematous joints. Neurological: Moves all 4 extremities. No myoclonus. Urinary Catheter Management: Velazquez: Cath Placed During This Visit: yes Reason for Continuing Indwelling Catheter: Accurate Measurement of Urinary Output in Critically Ill Patients Urinary Catheter Date of Insertion: 11/09/22 Urinary Catheter Time of Insertion: 20:30 Data 11/10/22 04:39 11/10/22 04:39 A&P Assessment and plan (1) Chest pain: Chest pressure is improved, troponin level of plateau, suspect CHF Myocardial stress testing today Continuous cardiopulmonary monitoring Cardiology consulted, appreciate recommendations Qualifiers: Chest pain type: unspecified Qualified Code(s): R07.9 - Chest pain, unspecified (2) CHF (congestive heart failure), NYHA class III: Velazquez for strict I&Os Daily weights Rotate to IV Bumex May benefit from Zaroxolyn Qualifiers: Congestive heart failure type: unspecified Qualified Code(s): I50.9 - Heart failure, unspecified (3) Atrial fibrillation: Continue beta-brigida Currently on therapeutic Lovenox Monitor electrolytes (4) Seronegative rheumatoid arthritis: Continue leflunomide (5) Anemia: HGB stable Continue to monitor Qualifiers: Anemia type: unspecified type Qualified Code(s): D64.9 - Anemia, unspecified (6) HTN (hypertension): Continue Imdur Continue Coreg Continue Bumex, rotated to IV formulation Continue hydralazine Monitor blood pressure closely Qualifiers: Hypertension type: essential hypertension Qualified Code(s): I10 - Essential (primary) hypertension Plan DVT ppx: Lovenox Attestations Medical Necessity Statement*: Patient requires ongoing hospitalization for severe fluid overload requiring IV diuresis, telemetry monitoring, cardiology expertise, electrolyte monitoring, stress testing, and supportive care. Coding Level of Care Code Acute Code for [facility] Diagnoses Chest pain R07.9 Chest pain type: unspecified CHF (congestive heart failure), NYHA class III I50.9 Congestive heart failure type: unspecified Atrial fibrillation I48.91 Seronegative rheumatoid arthritis M06.00 Anemia D64.9 Anemia type: unspecified type HTN (hypertension) I10 Hypertension type: essential hypertension
[2022-11-10 14:27] LABS: Potassium 3.7 mmol/L (3.5-5.1)
[2022-11-10] MEDS: ondansetron 2 mg/ML SDV 2 mL 4 MG IVP (14:40)
[2022-11-10] MEDS: acetaminophen 500 mg Tablet 1000 MG PO (14:40)
--- NOTE | 2022-11-10 18:32 | PM.PN ---
Subjective Subjective: Patient had a Myocardial perfusion imaging today. He was found no evidence of ischemia. The echocardiogram revealed mild diffuse hypokinesia left ventricular ejection fraction around 50%. The shortness of breath is improving. He still has some generalized weakness and difficulty in ambulation. No fever or chills. Remains afebrile. Medications: Medication Review Details: Current Medications Acetaminophen (Acetaminophen 500 Mg Tablet) 1,000 mg PO Q6H PRN PRN Reason: MILD PAIN OR INCREASE TEMP Last Admin: 11/10/22 14:40 Dose: 1,000 mg Aminophylline (Aminophylline 25 Mg/Ml Sdv 10 Ml) 25 mg IVP Q2M PRN PRN Reason: see dose instructions Stop: 11/11/22 06:21 Amiodarone HCl (Amiodarone 200 Mg Tablet) 400 mg PO BID [facility] Aspirin (Aspirin 81 Mg Ec Tablet) 81 mg PO DAILY [facility] Last Admin: 11/10/22 11:23 Dose: 81 mg Atorvastatin Calcium (Atorvastatin 40 Mg Tablet) 40 mg PO BEDTIME [facility] Last Admin: 11/09/22 21:08 Dose: 40 mg Bumetanide (Bumetanide 0.25 Mg/Ml Sdv 10 Ml) 2 mg IVP Q12H [facility] Carvedilol (Carvedilol 25 Mg Tablet) 25 mg PO BID [facility] Last Admin: 11/10/22 11:24 Dose: 25 mg Enoxaparin Sodium (Enoxaparin 120 Mg/0.8 Ml Syringe) 110 mg SUBCUT Q12H [facility] Last Admin: 11/10/22 11:26 Dose: 110 mg Hydralazine HCl (Hydralazine 50 Mg Tablet) 50 mg PO TID [facility] Last Admin: 11/10/22 14:40 Dose: 50 mg Hydrocortisone (Hydrocortisone 2.5% Cream 28 Gm) 1 applic TOPICAL BID PRN PRN Reason: Itching Isosorbide Mononitrate (Isosorbide Mononitrate Er 60 Mg Tablet) 60 mg PO DAILY [facility] Last Admin: 11/10/22 11:25 Dose: 60 mg Levothyroxine Sodium (Levothyroxine 137 Mcg Tablet) 137 mcg PO DAILY [facility] Last Admin: 11/10/22 11:41 Dose: 137 mcg Liothyronine Sodium (Liothyronine 5 Mcg Tablet) 10 mcg PO DAILY [facility] Last Admin: 11/10/22 11:50 Dose: 10 mcg Magnesium Lactate (Magnesium Lactate 84 Mg Tablet) 84 mg PO BID [facility] Nitroglycerin (Nitroglycerin 0.4 Mg Sublingual Tablet) 0.4 mg SUBLINGUAL Q5M PRN PRN Reason: CHEST PAIN Stop: 11/11/22 06:21 Ondansetron HCl (Ondansetron 2 Mg/Ml Sdv 2 Ml) 4 mg IVP Q2M PRN PRN Reason: NAUSEA Last Admin: 11/10/22 14:40 Dose: 4 mg Pantoprazole Sodium (Pantoprazole Dr 40 Mg Tablet) 40 mg PO DAILY [facility] Last Admin: 11/10/22 11:24 Dose: 40 mg Vitals/I&O/Wt Last Vital Signs Temp 98.4 F 11/10/22 17:55 Pulse 91 11/10/22 17:55 Resp 20 H 11/10/22 17:55 BP 90/71 11/10/22 17:55 Pulse Ox 94 11/10/22 17:55 O2 Del Method Room Air 11/10/22 17:55 FiO2 21 11/10/22 04:00 11/10/22 11/10/22 11/10/22 06:59 14:59 22:59 Intake Total 360 / 360 480 / 840 Output Total 1850 / 1850 Balance -1490 / -1490 480 / -1010 Weight last 48 hrs Weight 249 lb Weight 249 lb Physical Exam Narrative: GENERAL: The patient is alert and oriented times three. Not in any acute distress. HEENT: No significant pallor, icterus or lymphadenopathy.Oral cavity: There are no mucous membrane lesions. NECK: Trachea appears to be central. No masses noted. No JVD or thyromegaly appreciated. RESPIRATORY: Chest is symmetrical. No intercostals muscle retraction or any accessory muscle activation. There is no chest wall tenderness. Breath sounds are heard bilaterally. No rales or rhonchi heard. No evidence of any consolidation. BREASTS: Deferred. HEART: The heart sounds are normal. No S3 or S4. Short systolic murmur in the lower sternal border. No diastolic murmurs no pericardial rub ABDOMEN: No vessel pulsations or distention. No tenderness. No organomegaly appreciated. Bowel sounds are normally heard. : Deferred. RECTAL: Deferred. LYMPHATIC: No lymphadenopathy noted in the neck. EXTREMITIES: Trace to 1+ edema with no cyanosis. MUSCULOSKELETAL: No acute joint deformities or swelling SKIN: There are no significant rashes or ecchymosis NEUROPSYCHIATRIC: The patient is alert and oriented x3. Appears to be in a good mood. No tremors or rigidity noted. Urinary Catheter Management: Velazquez: Cath Placed During This Visit: yes Reason for Continuing Indwelling Catheter: Accurate Measurement of Urinary Output in Critically Ill Patients Urinary Catheter Date of Insertion: 11/09/22 Urinary Catheter Time of Insertion: 20:30 Data 11/10/22 04:39 11/10/22 13:57 Other Labs: Laboratory Last Values WBC 6.69 10^3/uL (3.29-11.43) 11/10/22 04:39 RBC 3.40 10^6/uL (3.85-5.65) L 11/10/22 04:39 Hgb 9.30 g/dL (11.27-16.99) L 11/10/22 04:39 Hct 30.5 % (37-53) L 11/10/22 04:39 MCV 89.7 fl (82-101) 11/10/22 04:39 MCH 27.4 pg (27-33) 11/10/22 04:39 MCHC 30.5 g/dL (30-55) 11/10/22 04:39 RDW 15.9 % (12.1-15.1) H 11/10/22 04:39 Plt Count 204 10^3/cmm (157-399) 11/10/22 04:39 MPV 10.0 fL (7.4-10.4) 11/10/22 04:39 Neut % (Auto) 73.8 % 11/10/22 04:39 Lymph % (Auto) 10.9 % 11/10/22 04:39 Jerome % (Auto) 12.4 % 11/10/22 04:39 Eos % (Auto) 1.6 % 11/10/22 04:39 Baso % (Auto) 1.0 % 11/10/22 04:39 Neut # (Auto) 4.93 10^3/uL (1.8-7.7) 11/10/22 04:39 Lymph # (Auto) 0.7 10^3/uL (0.8-4.8) L 11/10/22 04:39 Jerome # (Auto) 0.8 10^3/uL (0.2-0.9) 11/10/22 04:39 Eos # (Auto) 0.1 10^3/uL (0.0-0.8) 11/10/22 04:39 Baso # (Auto) 0.1 10^3/uL (0.0-0.1) 11/10/22 04:39 Nucleated RBC % (auto) 0 % 11/10/22 04:39 Nucleated RBCs # 0.0 /100WBC 11/10/22 04:39 Sodium 139 mmol/L (136-145) 11/10/22 04:39 Potassium 3.7 mmol/L (3.5-5.1) 11/10/22 13:57 Chloride 104 mmol/L (98-107) 11/10/22 04:39 Carbon Dioxide 28 mmol/L (22-29) 11/10/22 04:39 Anion Gap 10.9 (5-19) 11/10/22 04:39 BUN 20 mg/dL (8-23) 11/10/22 04:39 Creatinine 0.9 mg/dL (0.7-1.2) 11/10/22 04:39 GFR Calculation Not Reportable 11/10/22 04:39 Glucose 88 mg/dL (65-115) 11/10/22 04:39 Calculated Osmolality 290 mOsm/kg (285-295) 11/10/22 04:39 Calcium 8.3 mg/dL (8.5-10.5) L 11/10/22 04:39 Phosphorus 3.9 mg/dL (2.5-4.5) 11/10/22 04:39 Magnesium 2.0 mg/dL (1.7-2.3) 11/10/22 13:57 Total Bilirubin 0.3 mg/dL (0.15-1.2) 11/09/22 15:57 AST 16 U/L (0-40) 11/09/22 15:57 ALT 16 U/L (0-41) 11/09/22 15:57 Alkaline Phosphatase 79 U/L (40-130) 11/09/22 15:57 Troponin T Baseline 32 ng/L (0-15) H 11/09/22 15:57 Troponin T 120 Minute 34.67 ng/L (0-15) H 11/09/22 19:45 Delta Troponin T 2.67 ABS# (0-10) 11/09/22 19:45 Troponin T Hi Sens 6Hr 34.83 ng/L (0-15) H 11/09/22 21:58 Troponin T Hi Sens 6Hr Delta 2.83 ng/L (0-12) 11/09/22 21:58 Total Protein 7.1 g/dL (6.6-8.7) 11/09/22 15:57 Albumin 4.4 g/dL (3.5-5.2) 11/09/22 15:57 Globulin 2.7 g/dL (1.3-4.6) 11/09/22 15:57 Other data: The echocardiogram from yesterday ?normal left ventricular size with a diminished ejection fraction ?of around 50%.? Mild diffuse hypokinesia of the septum and the ?anteroseptum? .Grade I/IV diastolic dysfunction (abnormal ?relaxation filling pattern), normal to mildly elevated filling ?pressures. ?Mild biatrial enlargement ?Mniimally thickened aortic and mitral valves. ?Mild biatrial enlargement ?There is no pericardial effusion. ?There are no intracardiac masses. The Myocardial perfusion imaging from today 1. 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 ?2. LV systolic function is mildly reduced with EF of 43% with global ?hypokinesis. A&P Assessment and plan (1) Atrial fibrillation: Amiodarone 400 mg p.o. twice daily may be continued. Also may start Mag-Tab SR 84 mg p.o. twice daily. Continue other medications as it is. (2) Chest pain: Most likely related to the arrhythmia. No evidence of ischemia, based on the perfusion scan. Qualifiers: Chest pain type: unspecified Qualified Code(s): R07.9 - Chest pain, unspecified (3) CHF (congestive heart failure), NYHA class III: We will continue with the careful IV diuresis. Qualifiers: Congestive heart failure type: unspecified Qualified Code(s): I50.9 - Heart failure, unspecified (4) HTN (hypertension): The patient blood pressure is on the low normal side. I may cut back on the hydralazine to 25 mg p.o. 3 times daily Qualifiers: Hypertension type: essential hypertension Qualified Code(s): I10 - Essential (primary) hypertension Plan His other problems are History of TIA Hypothyroidism Seronegative rheumatoid arthritis COPD Anemia Chronic venous insufficiency Ascending thoracic aortic aneurysm Degenerative joint disease GERD We will do an EKG in the morning. Encourage ambulation by physical therapy. Cut back on the hydralazine to 25 mg p.o. 3 times a day. If he continues to remain stable, possible discharge home tomorrow Attestations Medical Necessity Statement*: Deferred to the primary Coding Level of Care Code 58002 Diagnoses Atrial fibrillation I48.91 Chest pain R07.9 Chest pain type: unspecified CHF (congestive heart failure), NYHA class III I50.9 Congestive heart failure type: unspecified HTN (hypertension) I10 Hypertension type: essential hypertension
[2022-11-10] MEDS: magnesium lactate 84 mg Tablet PO (19:13)
[2022-11-10] MEDS: amiodarone 200 mg Tablet 400 MG PO (19:14)
--- NOTE | 2022-11-10 19:24 | NMCV_ITS ---
NM pamela perf SPECT r/s* [id number] Kojo Marinelli Age: 76 Gender: M : 1945 Exam Date: 11/10/2022 08:47 Ordering Phys: Giovanni Perez MD Technologist: MINGO Salazar Exam Location: [facility] Indications: CHEST PAIN STRESS TEST Please see separate stress test report in [facility] for full findings IMAGE PROTOCOL Rest/Stress 1 Lexiscan Day Radiopharmaceutical Dose (mCi) Administration Site Administered by Rest: Tc-99m 11.0 IV MINGO Page Sestamibi Stress:Tc-99m 33.0 IV MINGO Page Sestamibi Rest: 10-Nov-2022 60 Discovery 630 Stress: 10-Nov-2022 30 Discovery 630 0.4mg Lexiscan. Supine position only as patient was unable to lay prone. SPECT RESULTS Technical Quality: Excellent Raw Data Analysis: Normal Image Corrections: No attenuation or motion correction applied Summed Stress Score: 2 Summed Rest Score: 5 Summed Difference Score: 0 PERFUSION FINDINGS There are small in size, fixed perfusion defects noted in the apical and apical inferior westfall. This is consistent with small sized areas of prior infarct in LAD and RCA territories. No evidence of ischemia FUNCTIONAL RESULTS (calculated via Gated SPECT) Stress Image LV EF (%): 43 Stress EDV (mL):171 TID: 1.02 Stress ESV (mL):98 FUNCTIONAL FINDINGS: LV systolic function is mildly reduced with EF of 43% with global hypokinesis. IMPRESSIONS 1. 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 2. LV systolic function is mildly reduced with EF of 43% with global hypokinesis. Dario Nuñez MD (Electronically Signed) Final Date: 10 November 2022 11:44 S
[2022-11-10] MEDS: bumetanide 0.25 mg/mL SDV 10 mL 2 MG IVP (20:34)
[2022-11-10] MEDS: atorvastatin 40 mg Tablet PO (21:19)
[2022-11-10] MEDS: diphenhydrAMINE 50 mg Capsule 25 MG PO (21:19)
[2022-11-11] VITALS (9 sets, daily range): BP systolic 102–155; BP diastolic 58–88; PULSE 68–79; RESP 13–22; TEMP 36.7–37; O2SAT 94–96; BMI 33.5
[2022-11-11] MEDS: acetaminophen 500 mg Tablet 1000 MG PO ×2 (00:10→22:07)
[2022-11-11 04:49] LABS: Basophils # 0.1 10^3/uL (0.0-0.1); Basophils % 0.8 %; Eosinophils # 0.1 10^3/uL (0.0-0.8); Eosinophils % 1.8 %; Hematocrit 30.7 % (37-53); Lymphocytes # 0.8 10^3/uL (0.8-4.8); Lymphocytes % 12.4 %; Mean Corpuscular HGB Conc 30.6 g/dL (30-55); Mean Corpuscular Hemoglobin 27.6 pg (27-33); Mean Platelet Volume 10.2 fL (7.4-10.4); Monocytes # 0.6 10^3/uL (0.2-0.9); Monocytes % 10.4 %; Neutrophils # 4.55 10^3/uL (1.8-7.7); Neutrophils % 74.3 %; Nucleated Red Blood Cells % 0 %; Platelet Count 182 10^3/cmm (157-399); Red Blood Count 3.41 10^6/uL (3.85-5.65); Red Cell Distribution Width 15.9 % (12.1-15.1); White Blood Count 6.13 10^3/uL (3.29-11.43)
[2022-11-11 05:14] LABS: Albumin Level 3.6 g/dL (3.5-5.2); Anion Gap 12.9 (5-19); Blood Urea Nitrogen 19 mg/dL (8-23); Calcium 8.3 mg/dL (8.5-10.5); Carbon Dioxide 29 mmol/L (22-29); Chloride 102 mmol/L (98-107); Glucose 131 mg/dL (65-115); Magnesium 2.2 mg/dL (1.7-2.3); Phosphorus 4.2 mg/dL (2.5-4.5); Potassium 3.9 mmol/L (3.5-5.1); Sodium 140 mmol/L (136-145)
[2022-11-11] MEDS: levothyroxine 137 mcg Tablet PO (09:36)
[2022-11-11] MEDS: isosorbide mononitrate ER 60 mg Tablet PO (09:36)
[2022-11-11] MEDS: pantoprazole DR 40 mg Tablet PO (09:36)
[2022-11-11] MEDS: magnesium lactate 84 mg Tablet PO ×2 (09:36→17:32)
[2022-11-11] MEDS: liothyronine 5 mcg Tablet 10 MCG PO (09:36)
[2022-11-11] MEDS: amiodarone 200 mg Tablet 400 MG PO ×2 (09:37→17:32)
[2022-11-11] MEDS: hyDRALAzine 25 mg Tablet PO ×3 (09:37→21:30)
[2022-11-11] MEDS: carvedilol 25 mg Tablet PO ×2 (09:37→17:32)
[2022-11-11] MEDS: aspirin 81 mg EC Tablet PO (09:37)
[2022-11-11] MEDS: bumetanide 0.25 mg/mL SDV 10 mL 2 MG IVP ×2 (09:38→21:30)
[2022-11-11] MEDS: enoxaparin 120 mg/0.8 mL Syringe 110 MG SUBCUT (09:39)
[2022-11-11 10:14] LABS: Bilirubin Urine Neg (Negative); Blood Urine Neg (Negative); Glucose Urine UA Norm (Normal); Ketones Urine Negative (Negative); Leukocyte Esterase Urine 2+ (Negative); Nitrate Urine Negative (Negative); Protein Urine Neg (Negative); RBC Urine 0-4 /hpf (0-2); Specific Gravity, Urine 1.015 (1.005-1.030); Urine Appearance Clear (CLEAR); Urine Color Yellow (Yellow); Urobilinogen Urine 4 mg/dL (Negative); pH Urine 6 (5-7)
[2022-11-11 10:15] LABS: Bacteria Urine TRACE /hpf; Squamous Epithelial Cell Urine RARE /hpf (0-5)
--- NOTE | 2022-11-11 10:52 | PM.PN ---
Subjective Subjective: Patient states he slept better last night. Reports still short of breath with difficulty talking in full sentences. States he really didn't get out of bed much since admission so not sure about strength. Concern exists that he may be weak. He denies any active chest pain. Discussed stress test results. Reports minimal cough with wheezing. Reports penile discomfort at the urethral opening when urinating. Denies nausea, emesis, fevers or chills. Medications: Reviewed: Yes Vitals/I&O/Wt Last Vital Signs Temp 98.1 F 11/11/22 08:00 Pulse 69 11/11/22 08:00 Resp 17 11/11/22 08:00 BP 155/83 11/11/22 08:00 Pulse Ox 94 11/11/22 08:00 O2 Del Method Room Air 11/11/22 08:00 FiO2 21 11/10/22 04:00 11/10/22 11/11/22 11/11/22 22:59 06:59 14:59 Intake Total 480 / 840 0 / 840 360 / 360 Output Total 250 / 2100 Balance 480 / -1010 -250 / -1260 360 / 360 Weight last 48 hrs Weight 112.037 kg Weight 112.945 kg Weight 112.945 kg Physical Exam Narrative: General: Patient is awake. Alert. Lying in bed. Conversational. Head: Normocephalic. EOM intact. Neck: No JVD. Cardiovascular: Normal S1 and S1. No gallops. No murmurs. 1-2+ pitting edema in bilateral lower extremities, minimally improved from prior exam. Lungs: Initially mild, but somewhat moderate respiratory distress after speaking for a while. Breath sounds are diminished in bilateral bases. Dependent crackles. Tachypnea. Increased work of breathing. Skin: No jaundice. Abdomen: Normal bowel sounds, abdomen soft and nontender. Extremities: No cyanosis or clubbing. Musculoskeletal: No erythematous joints. Neurological: Moves all 4 extremities. No myoclonus. Urinary Catheter Management: Velazquez: Cath Placed During This Visit: yes Reason for Continuing Indwelling Catheter: Accurate Measurement of Urinary Output in Critically Ill Patients Urinary Catheter Date of Insertion: 11/09/22 Urinary Catheter Time of Insertion: 20:30 Data 11/11/22 04:15 11/11/22 04:15 A&P Assessment and plan (1) CHF (congestive heart failure), NYHA class III: Echo reviewed Continue IV Bumex Strict I&Os, daily weights Goal of net negative diuresis Continue beta brigida (2) Chest pain: Improved MPS reviewed with patient Cardiology consulted, appreciate recommendations Chest pain 2/2 CHF exacerbation Not ACS, discontinue therapeutic Lovenox, rotate to ppx dosing (3) Atrial fibrillation: Continue beta-brigida Monitor electrolytes (4) Seronegative rheumatoid arthritis: Has appt tomorrow morning for injection, likely will need rescheduled (5) Anemia: HGB stable Continue to monitor (6) HTN (hypertension): Continue Imdur Continue Coreg Continue IV Bumex Continue hydralazine, home dose has been adjusted Monitor blood pressure closely (7) Debility: Debility and physical deconditioning Secondary to CHF Start physical therapy (8) Pain in penis: Possibly related to Velazquez catheter Obtain urinalysis Plan DVT ppx: Lovenox Attestations Medical Necessity Statement*: Patient requires ongoing hospitalization for IV diuresis, telemetry, cardiology expertise, and supportive care. Coding Level of Care Code Acute Code for [facility] Fwd Diagnoses CHF (congestive heart failure), NYHA class III I50.9 Chest pain R07.9 Atrial fibrillation I48.91 Seronegative rheumatoid arthritis M06.00 Anemia D64.9 HTN (hypertension) I10 Debility R53.81 Pain in penis N48.89
[2022-11-11] MEDS: atorvastatin 40 mg Tablet PO (21:30)
--- NOTE | 2022-11-11 21:34 | PM.PN ---
Subjective Subjective: Patient is feeling better. Shortness of breath is improving. Still he is very unsteady in his gait. Slowly ambulating on telemetry with the physical therapy. Medications: Medication Review Details: Current Medications Acetaminophen (Acetaminophen 500 Mg Tablet) 1,000 mg PO Q6H PRN PRN Reason: MILD PAIN OR INCREASE TEMP Last Admin: 11/11/22 00:10 Dose: 1,000 mg Amiodarone HCl (Amiodarone 200 Mg Tablet) 400 mg PO BID [facility] Last Admin: 11/11/22 17:32 Dose: 400 mg Aspirin (Aspirin 81 Mg Ec Tablet) 81 mg PO DAILY [facility] Last Admin: 11/11/22 09:37 Dose: 81 mg Atorvastatin Calcium (Atorvastatin 40 Mg Tablet) 40 mg PO BEDTIME [facility] Last Admin: 11/11/22 21:30 Dose: 40 mg Bumetanide (Bumetanide 0.25 Mg/Ml Sdv 10 Ml) 2 mg IVP Q12H [facility] Last Admin: 11/11/22 21:30 Dose: 2 mg Carvedilol (Carvedilol 25 Mg Tablet) 25 mg PO BID [facility] Last Admin: 11/11/22 17:32 Dose: 25 mg Diphenhydramine HCl (Diphenhydramine 50 Mg Capsule) 25 mg PO BEDTIME PRN PRN Reason: INSOMNIA Last Admin: 11/10/22 21:19 Dose: 25 mg Enoxaparin Sodium (Enoxaparin 40 Mg/0.4 Ml Syringe) 40 mg SUBCUT DAILY [facility] Hydralazine HCl (Hydralazine 25 Mg Tablet) 25 mg PO TID [facility] Last Admin: 11/11/22 21:30 Dose: 25 mg Hydrocortisone (Hydrocortisone 2.5% Cream 28 Gm) 1 applic TOPICAL BID PRN PRN Reason: Itching Isosorbide Mononitrate (Isosorbide Mononitrate Er 60 Mg Tablet) 60 mg PO DAILY [facility] Last Admin: 11/11/22 09:36 Dose: 60 mg Levothyroxine Sodium (Levothyroxine 137 Mcg Tablet) 137 mcg PO DAILY [facility] Last Admin: 11/11/22 09:36 Dose: 137 mcg Liothyronine Sodium (Liothyronine 5 Mcg Tablet) 10 mcg PO DAILY [facility] Last Admin: 11/11/22 09:36 Dose: 10 mcg Magnesium Lactate (Magnesium Lactate 84 Mg Tablet) 84 mg PO BID [facility] Last Admin: 11/11/22 17:32 Dose: 84 mg Pantoprazole Sodium (Pantoprazole Dr 40 Mg Tablet) 40 mg PO DAILY [facility] Last Admin: 11/11/22 09:36 Dose: 40 mg Vitals/I&O/Wt Last Vital Signs Temp 98.1 F 11/11/22 08:00 Pulse 70 11/11/22 20:00 Resp 16 11/11/22 20:00 BP 120/69 11/11/22 20:00 Pulse Ox 94 11/11/22 16:00 O2 Del Method Room Air 11/11/22 16:00 FiO2 21 11/10/22 04:00 11/11/22 11/11/22 11/11/22 06:59 14:59 22:59 Intake Total 0 / 840 580 / 580 220 / 800 Output Total 250 / 2100 900 / 900 400 / 1300 Balance -250 / -1260 -320 / -320 -180 / -500 Weight last 48 hrs Weight 247 lb Weight 249 lb Physical Exam Narrative: GENERAL: The patient is alert and oriented times three. Not in any acute distress. HEENT: No significant pallor, icterus or lymphadenopathy.Oral cavity: There are no mucous membrane lesions. NECK: Trachea appears to be central. No masses noted. No JVD or thyromegaly appreciated. RESPIRATORY: Chest is symmetrical. No intercostals muscle retraction or any accessory muscle activation. There is no chest wall tenderness. Breath sounds are heard bilaterally. No rales or rhonchi heard. No evidence of any consolidation. BREASTS: Deferred. HEART: The heart sounds are normal. No S3 or S4. Short systolic murmur in the lower sternal border. No diastolic murmurs no pericardial rub ABDOMEN: No vessel pulsations or distention. No tenderness. No organomegaly appreciated. Bowel sounds are normally heard. : Deferred. RECTAL: Deferred. LYMPHATIC: No lymphadenopathy noted in the neck. EXTREMITIES: Trace to 1+ edema with no cyanosis. MUSCULOSKELETAL: No acute joint deformities or swelling SKIN: There are no significant rashes or ecchymosis NEUROPSYCHIATRIC: The patient is alert and oriented x3. Appears to be in a good mood. No tremors or rigidity noted. Urinary Catheter Management: Velazquez: Cath Placed During This Visit: yes Reason for Continuing Indwelling Catheter: Accurate Measurement of Urinary Output in Critically Ill Patients Urinary Catheter Date of Insertion: 11/09/22 Urinary Catheter Time of Insertion: 20:30 Data 11/11/22 04:15 11/11/22 04:15 Other Labs: Laboratory Last Values WBC 6.13 10^3/uL (3.29-11.43) 11/11/22 04:15 RBC 3.41 10^6/uL (3.85-5.65) L 11/11/22 04:15 Hgb 9.40 g/dL (11.27-16.99) L 11/11/22 04:15 Hct 30.7 % (37-53) L 11/11/22 04:15 MCV 90.0 fl (82-101) 11/11/22 04:15 MCH 27.6 pg (27-33) 11/11/22 04:15 MCHC 30.6 g/dL (30-55) 11/11/22 04:15 RDW 15.9 % (12.1-15.1) H 11/11/22 04:15 Plt Count 182 10^3/cmm (157-399) 11/11/22 04:15 MPV 10.2 fL (7.4-10.4) 11/11/22 04:15 Neut % (Auto) 74.3 % 11/11/22 04:15 Lymph % (Auto) 12.4 % 11/11/22 04:15 [place] % (Auto) 10.4 % 11/11/22 04:15 Eos % (Auto) 1.8 % 11/11/22 04:15 Baso % (Auto) 0.8 % 11/11/22 04:15 Neut # (Auto) 4.55 10^3/uL (1.8-7.7) 11/11/22 04:15 Lymph # (Auto) 0.8 10^3/uL (0.8-4.8) 11/11/22 04:15 [place] # (Auto) 0.6 10^3/uL (0.2-0.9) 11/11/22 04:15 Eos # (Auto) 0.1 10^3/uL (0.0-0.8) 11/11/22 04:15 Baso # (Auto) 0.1 10^3/uL (0.0-0.1) 11/11/22 04:15 Nucleated RBC % (auto) 0 % 11/11/22 04:15 Nucleated RBCs # 0.0 /100WBC 11/11/22 04:15 Sodium 140 mmol/L (136-145) 11/11/22 04:15 Potassium 3.9 mmol/L (3.5-5.1) 11/11/22 04:15 Chloride 102 mmol/L (98-107) 11/11/22 04:15 Carbon Dioxide 29 mmol/L (22-29) 11/11/22 04:15 Anion Gap 12.9 (5-19) 11/11/22 04:15 BUN 19 mg/dL (8-23) 11/11/22 04:15 Creatinine 1.2 mg/dL (0.7-1.2) 11/11/22 04:15 GFR Calculation Not Reportable 11/11/22 04:15 Glucose 131 mg/dL (65-115) H 11/11/22 04:15 Calculated Osmolality 290 mOsm/kg (285-295) 11/10/22 04:39 Calcium 8.3 mg/dL (8.5-10.5) L 11/11/22 04:15 Phosphorus 4.2 mg/dL (2.5-4.5) 11/11/22 04:15 Magnesium 2.2 mg/dL (1.7-2.3) 11/11/22 04:15 Total Bilirubin 0.3 mg/dL (0.15-1.2) 11/09/22 15:57 AST 16 U/L (0-40) 11/09/22 15:57 ALT 16 U/L (0-41) 11/09/22 15:57 Alkaline Phosphatase 79 U/L (40-130) 11/09/22 15:57 Troponin T Baseline 32 ng/L (0-15) H 11/09/22 15:57 Troponin T 120 Minute 34.67 ng/L (0-15) H 11/09/22 19:45 Delta Troponin T 2.67 ABS# (0-10) 11/09/22 19:45 Troponin T Hi Sens 6Hr 34.83 ng/L (0-15) H 11/09/22 21:58 Troponin T Hi Sens 6Hr Delta 2.83 ng/L (0-12) 11/09/22 21:58 Total Protein 7.1 g/dL (6.6-8.7) 11/09/22 15:57 Albumin 3.6 g/dL (3.5-5.2) 11/11/22 04:15 Globulin 2.7 g/dL (1.3-4.6) 11/09/22 15:57 Urine Color Yellow (Yellow) 11/11/22 09:50 Urine Appearance Clear (CLEAR) 11/11/22 09:50 Urine pH 6 (5-7) 11/11/22 09:50 Ur Specific Huger 1.015 (1.005-1.030) 11/11/22 09:50 Urine Protein Neg (Negative) 11/11/22 09:50 Urine Glucose (UA) Norm (Normal) 11/11/22 09:50 Urine Ketones Negative (Negative) 11/11/22 09:50 Urine Blood Neg (Negative) 11/11/22 09:50 Urine Nitrate Negative (Negative) 11/11/22 09:50 Urine Bilirubin Neg (Negative) 11/11/22 09:50 Urine Urobilinogen 4 mg/dL (Negative) H 11/11/22 09:50 Ur Leukocyte Esterase 2+ (Negative) H 11/11/22 09:50 Urine RBC 0-4 /hpf (0-2) H 11/11/22 09:50 Urine WBC 5-10 /hpf (0-5) H 11/11/22 09:50 Ur Squamous Epith Cells Rare /hpf (0-5) 11/11/22 09:50 Amorphous Sediment Not Reportable 11/11/22 09:50 Urine Bacteria Trace /hpf (NONE) 11/11/22 09:50 A&P Assessment and plan (1) Atrial fibrillation: Amiodarone 400 mg p.o. twice daily may be continued. Also may start Mag-Tab SR 84 mg p.o. twice daily. Continue other medications as it is. (2) CHF (congestive heart failure), NYHA class III: This could be multifactorial. Left-ventricular diastolic dysfunction, atrial fibrillation, hypertension, anemia etc. are contributing factors. We will continue with the careful diuresis. The electrolytes need to be closely watched as well (3) Chest pain: Most likely related to the arrhythmia. No evidence of ischemia, based on the perfusion scan. Had cardiac catheterization in the past showing no significant coronary artery disease. (4) Orthostatic hypotension: We will continue the conservative measures Plan His other problems are History of TIA Hypothyroidism Seronegative rheumatoid arthritis COPD Anemia Chronic venous insufficiency Ascending thoracic aortic aneurysm Degenerative joint disease GERD We will do an EKG in the morning. Encourage ambulation by physical therapy. Continue on the current dose of the hydralazine May continue under the current measures. Possible discharge home tomorrow Attestations Medical Necessity Statement*: Deferred to the primary Coding Level of Care Code Acute Code for [facility] Fwd Diagnoses Atrial fibrillation I48.91 CHF (congestive heart failure), NYHA class III I50.9 Chest pain R07.9 Orthostatic hypotension I95.1
[2022-11-11] MEDS: apixaban 5 mg Tablet PO (22:00)
[2022-11-12] VITALS (59 sets, daily range): BP systolic 110–160; BP diastolic 62–88; PULSE 62–77; RESP 11–27; TEMP 36.9–37.1; O2SAT 94–97
[2022-11-12 04:53] LABS: Basophils % 0.7 %; Eosinophils # 0.1 10^3/uL (0.0-0.8); Lymphocytes # 0.7 10^3/uL (0.8-4.8); Lymphocytes % 12.5 %; Mean Corpuscular HGB Conc 30.3 g/dL (30-55); Mean Corpuscular Hemoglobin 26.9 pg (27-33); Mean Corpuscular Volume 88.8 fl (82-101); Mean Platelet Volume 9.7 fL (7.4-10.4); Monocytes # 0.7 10^3/uL (0.2-0.9); Monocytes % 12.7 %; Neutrophils # 3.89 10^3/uL (1.8-7.7); Neutrophils % 71.7 %; Nucleated Red Blood Cells % 0 %; Platelet Count 185 10^3/cmm (157-399); Red Blood Count 3.49 10^6/uL (3.85-5.65); Red Cell Distribution Width 15.7 % (12.1-15.1); White Blood Count 5.43 10^3/uL (3.29-11.43)
[2022-11-12 05:29] LABS: Albumin Level 3.4 g/dL (3.5-5.2); Anion Gap 13.5 (5-19); Blood Urea Nitrogen 18 mg/dL (8-23); Calcium 8.5 mg/dL (8.5-10.5); Carbon Dioxide 27 mmol/L (22-29); Chloride 102 mmol/L (98-107); Creatinine Clr Calc Pharmacy 71.5308; Glucose 91 mg/dL (65-115); Magnesium 2.1 mg/dL (1.7-2.3); Phosphorus 3.4 mg/dL (2.5-4.5); Potassium 3.5 mmol/L (3.5-5.1); Sodium 139 mmol/L (136-145)
--- NOTE | 2022-11-12 05:33 | ECG_ITS ---
[facility] Test Date: 2022-11-12 Pat Name: Kojo Marinelli Department: Room: 104 Gender: Male [employer]: : 1945 Requested By: Priyanka Rivas Order Number: [id number] Tessa MD: Dario Nuñez M.D. Measurements Intervals [place] Rate: 72 P: -9 MN: 222 QRS: 117 QRSD: 152 T: 5 QT: 451 QTc: 496 Interpretive Statements SINUS RHYTHM WITH FIRST DEGREE AV BLOCK INTRAVENTRICULAR CONDUCTION DELAY [130+ ms QRS DURATION] POSSIBLE INFERIOR MYOCARDIAL INFARCTION , PROBABLY OLD [30 ms Q WAVE IN II/aVF] Compared to ECG 11/09/2022 20:07:07 Myocardial infarct finding now present Electronically Signed On 11-12-2022 6:49:33 CDT by Dario Nuñez M.D. [email or web address]
--- NOTE | 2022-11-12 10:03 | PM.DCS ---
Discharge Providers Date of Admission: 11/10/22 14:51 Date of Discharge: November 12, 2022 Attending Provider at Admission: Giovanni Perez MD Attending Provider at Discharge: Giovanni Perez MD Consults: Cardiology Primary Care Provider: Marsha Turner MD Diagnoses at Discharge Discharge Diagnosis (1) Atrial fibrillation: Status: Acute (2) CHF (congestive heart failure), NYHA class III: Status: Acute (3) Chest pain: Status: Acute (4) Orthostatic hypotension: Status: Acute Reason for Visit Reason for Visit: AFIB WITH RVR Hospital Course Hospital Course Kojo Marinelli is a 76 year old male with a past medical history significant for anemia, coronary artery disease, heart failure, COPD, hyperlipidemia, hypertension, and rheumatoid arthritis who presents to the emergency department with chest pain. Acute coronary syndrome was considered but ruled out with serial troponin, EKG and telemetry monitoring. Cardiology consulted and followed. Cardiac stress testing was negative for evidence of reversible ischemia. Patient found to have acute on chronic heart failure with preserved ejection fraction exacerbation. Patient treated with IV diuresis with improvement in symptoms. He was started on amiodarone and magnesium. Physical Exam Narrative: General: Patient is awake.? Alert. Pleasant. Head:? Normocephalic. EOM intact.? Neck: No JVD. Cardiovascular: Normal S1 and S1. No gallops. No murmurs. Trace pitting edema in bilateral lower extremities. Lungs: Adequate air movement. No wheezing. No rhonchi or rales. Skin: No jaundice. Abdomen: Normal bowel sounds, abdomen soft and nontender. Extremities: No cyanosis or clubbing. Musculoskeletal: No erythematous joints. Neurological: Moves all 4 extremities. No myoclonus. 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 echo complete* [id number]] Routine Ultrasound 11/09/22 19:24 Completed Radiology Impressions Chest X-Ray 11/09/22 15:53 IMPRESSION: No evidence of active cardiopulmonary disease. Laboratory Results WBC 5.43 10^3/uL (3.29-11.43) 11/12/22 04:35 RBC 3.49 10^6/uL (3.85-5.65) L 11/12/22 04:35 Hgb 9.40 g/dL (11.27-16.99) L 11/12/22 04:35 Hct 31.0 % (37-53) L 11/12/22 04:35 MCV 88.8 fl (82-101) 11/12/22 04:35 MCH 26.9 pg (27-33) L 11/12/22 04:35 MCHC 30.3 g/dL (30-55) 11/12/22 04:35 RDW 15.7 % (12.1-15.1) H 11/12/22 04:35 Plt Count 185 10^3/cmm (157-399) 11/12/22 04:35 MPV 9.7 fL (7.4-10.4) 11/12/22 04:35 Neut % (Auto) 71.7 % 11/12/22 04:35 Lymph % (Auto) 12.5 % 11/12/22 04:35 [place] % (Auto) 12.7 % 11/12/22 04:35 Eos % (Auto) 2.0 % 11/12/22 04:35 Baso % (Auto) 0.7 % 11/12/22 04:35 Neut # (Auto) 3.89 10^3/uL (1.8-7.7) 11/12/22 04:35 Lymph # (Auto) 0.7 10^3/uL (0.8-4.8) L 11/12/22 04:35 [place] # (Auto) 0.7 10^3/uL (0.2-0.9) 11/12/22 04:35 Eos # (Auto) 0.1 10^3/uL (0.0-0.8) 11/12/22 04:35 Baso # (Auto) 0.0 10^3/uL (0.0-0.1) 11/12/22 04:35 Nucleated RBC % (auto) 0 % 11/12/22 04:35 Nucleated RBCs # 0.0 /100WBC 11/12/22 04:35 Sodium 139 mmol/L (136-145) 11/12/22 04:35 Potassium 3.5 mmol/L (3.5-5.1) 11/12/22 04:35 Chloride 102 mmol/L (98-107) 11/12/22 04:35 Carbon Dioxide 27 mmol/L (22-29) 11/12/22 04:35 Anion Gap 13.5 (5-19) 11/12/22 04:35 BUN 18 mg/dL (8-23) 11/12/22 04:35 Creatinine 1.1 mg/dL (0.7-1.2) 11/12/22 04:35 GFR Calculation Not Reportable 11/12/22 04:35 Glucose 91 mg/dL (65-115) 11/12/22 04:35 Calculated Osmolality 290 mOsm/kg (285-295) 11/10/22 04:39 Calcium 8.5 mg/dL (8.5-10.5) 11/12/22 04:35 Phosphorus 3.4 mg/dL (2.5-4.5) 11/12/22 04:35 Magnesium 2.1 mg/dL (1.7-2.3) 11/12/22 04:35 Total Bilirubin 0.3 mg/dL (0.15-1.2) 11/09/22 15:57 AST 16 U/L (0-40) 11/09/22 15:57 ALT 16 U/L (0-41) 11/09/22 15:57 Alkaline Phosphatase 79 U/L (40-130) 11/09/22 15:57 Troponin T Baseline 32 ng/L (0-15) H 11/09/22 15:57 Troponin T 120 Minute 34.67 ng/L (0-15) H 11/09/22 19:45 Delta Troponin T 2.67 ABS# (0-10) 11/09/22 19:45 Troponin T Hi Sens 6Hr 34.83 ng/L (0-15) H 11/09/22 21:58 Troponin T Hi Sens 6Hr Delta 2.83 ng/L (0-12) 11/09/22 21:58 Total Protein 7.1 g/dL (6.6-8.7) 11/09/22 15:57 Albumin 3.4 g/dL (3.5-5.2) L 11/12/22 04:35 Globulin 2.7 g/dL (1.3-4.6) 11/09/22 15:57 Urine Color Yellow (Yellow) 11/11/22 09:50 Urine Appearance Clear (CLEAR) 11/11/22 09:50 Urine pH 6 (5-7) 11/11/22 09:50 Ur Specific [place] 1.015 (1.005-1.030) 11/11/22 09:50 Urine Protein Neg (Negative) 11/11/22 09:50 Urine Glucose (UA) Norm (Normal) 11/11/22 09:50 Urine Ketones Negative (Negative) 11/11/22 09:50 Urine Blood Neg (Negative) 11/11/22 09:50 Urine Nitrate Negative (Negative) 11/11/22 09:50 Urine Bilirubin Neg (Negative) 11/11/22 09:50 Urine Urobilinogen 4 mg/dL (Negative) H 11/11/22 09:50 Ur Leukocyte Esterase 2+ (Negative) H 11/11/22 09:50 Urine RBC 0-4 /hpf (0-2) H 11/11/22 09:50 Urine WBC 5-10 /hpf (0-5) H 11/11/22 09:50 Ur Squamous Epith Cells Rare /hpf (0-5) 11/11/22 09:50 Amorphous Sediment Not Reportable 11/11/22 09:50 Urine Bacteria Trace /hpf (NONE) 11/11/22 09:50 Vitals Last Vital Signs Temp 98.8 F 11/12/22 05:46 Pulse 72 11/12/22 06:00 Resp 17 11/12/22 05:46 BP 149/72 11/12/22 05:46 Pulse Ox 97 11/12/22 05:46 O2 Del Method Room Air 11/11/22 16:00 FiO2 21 11/12/22 08:00 Discharge Plan Discharge Patient Disposition: Home Health Service Condition: Stable Prescriptions: New hydralazine 25 mg Tablet 25 mg PO TID 30 Days Qty: 90 1RF amiodarone 200 mg tablet 200 mg PO DAILY Qty: 30 0RF magnesium L-lactate [Magtab] 84 mg Tablet Extended Release 84 mg PO BID 30 Days Qty: 60 1RF Continued hydrocortisone 2.5 % cream 1 applic TOPICAL BID PRN (Reason: Itching) mometasone 0.1 % solution 1 applic topical DAILY PRN (Reason: skin irritation) Qty: 60 3RF Rx Instructions: apply a few drops to scalp daily as needed (DME) MARK BRACE See Rx Instructions .Route .MEDSUPPLY Qty: 1 0RF Rx Instructions: As directed aspirin 81 mg tablet,delayed release (DR/EC) 81 mg PO DAILY Qty: 90 3RF carvedilol 25 mg tablet 25 mg PO BID Qty: 180 3RF nitroglycerin [Nitrostat] 0.4 mg tablet, sublingual 0.4 mg SUBLINGUAL Q5M PRN (Reason: Chest Pain) Qty: 25 6RF leflunomide [Arava] 20 mg tablet 20 mg PO DAILY Qty: 90 1RF Rx Instructions: 340 b pricing please omeprazole 40 mg capsule,delayed release(DR/EC) 40 mg PO DAILY Qty: 90 1RF prednisone 5 mg tablet 5 mg PO DAILY Qty: 90 1RF Hold Instructions: Resume on 06/30/22. Rx Instructions: Two tablets PO daily (DME) Modification to AFO Brace to the left See Rx Instructions .Route .MEDSUPPLY Qty: 1 0RF Rx Instructions: As directed by [facility] diclofenac sodium 1 % gel 4 g TOPICAL QID PRN (Reason: Pain) Qty: 100 2RF ketoconazole 2 % cream 1 applic topical BID PRN (Reason: Skin Irritation) Rx Instructions: Apply 1-2 times daily on red, scaly areas of face isosorbide mononitrate 60 mg tablet extended release 24 hr 60 mg PO DAILY Qty: 90 3RF potassium chloride 10 mEq tablet extended release See Rx Instructions .ROUTE .COMPLEX Qty: 360 1RF Dose Instruction: TAKE 2 TABLETS BY MOUTH TWICE DAILY Rx Instructions: TAKE 2 TABLETS BY MOUTH TWICE DAILY atorvastatin 40 mg tablet 40 mg PO BEDTIME Qty: 90 3RF acetaminophen 500 mg Capsule 1,000 mg PO Q4H PRN (Reason: Pain) levothyroxine [Synthroid] 137 mcg tablet 137 mcg PO DAILY Rx Instructions: PT STATES THIS MEDICATION MUST BE SYNTHROID, NOT LEVOTHYROXINE. liothyronine 5 mcg tablet 10 mcg PO DAILY bumetanide 2 mg Tablet 2 mg PO DAILY Discontinued hydralazine 25 mg tablet 50 mg PO TID Qty: 180 3RF Discharge Orders: Discharge Order (Routine); Ordered 11/12/22 Ordered By: Giovanni Perez Referrals: [facility] [Outside] Marsha Turner MD [Primary Care Provider] - 11/26/22 1:30 pm Priyanka Rivas MD [Physician] - 3 weeks Discharge Diet: Advance as tolerated, Usual diet and Cardiac Discharge Activity: Resume usual activity, Increase activity as tolerated and As per PT/OT instructions Patient Instructions: Hydralazine (By mouth) (Apresoline), Magnesium Oxide (By mouth) (Mag-Ox 400, EchoPixel..., Heart Failure (DC), CHF Stoplight, Opioid Safety Activity Restrictions/Additional Instructions: 1. Increase activity as tolerated. 2. Take medications as prescribed. 3. Daily weights. 4. Follow up with PCP and cardiology. Discharge Attestations Time Spent in Discharge Care*: greater than 30 min Quality Metrics Clinical Quality Measures [ No reported AMI, CVA or VTE this stay] Coding Level of Care Code Acute Code for g Fwd Diagnoses Atrial fibrillation I48.91 CHF (congestive heart failure), NYHA class III I50.9 Chest pain R07.9 Orthostatic hypotension I95.1
[2022-11-12] MEDS: bumetanide 0.25 mg/mL SDV 10 mL 2 MG IVP (10:15)
[2022-11-12] MEDS: levothyroxine 137 mcg Tablet PO (10:16)
[2022-11-12] MEDS: pantoprazole DR 40 mg Tablet PO (10:17)
[2022-11-12] MEDS: hyDRALAzine 25 mg Tablet PO ×2 (10:17→22:47)
[2022-11-12] MEDS: amiodarone 200 mg Tablet 400 MG PO ×2 (10:17→18:24)
[2022-11-12] MEDS: carvedilol 25 mg Tablet PO ×2 (10:17→18:24)
[2022-11-12] MEDS: apixaban 5 mg Tablet PO ×2 (10:18→22:48)
[2022-11-12] MEDS: magnesium lactate 84 mg Tablet PO ×2 (10:18→18:25)
[2022-11-12] MEDS: liothyronine 5 mcg Tablet 10 MCG PO (10:19)
[2022-11-12] MEDS: isosorbide mononitrate ER 60 mg Tablet PO (10:19)
--- NOTE | 2022-11-12 12:05 | PM.PN ---
Subjective Subjective: He feels well and denies any complaints. Medications: Reviewed: Yes Vitals/I&O/Wt Last Vital Signs Temp 98.8 F 11/12/22 05:46 Pulse 72 11/12/22 11:39 Resp 21 H 11/12/22 11:39 BP 152/88 11/12/22 11:39 Pulse Ox 97 11/12/22 05:46 O2 Del Method Room Air 11/11/22 16:00 FiO2 21 11/12/22 11:55 11/11/22 11/12/22 11/12/22 22:59 06:59 14:59 Intake Total 220 / 800 220 / 220 Output Total 400 / 1300 750 / 2050 1075 / 1075 Balance -180 / -500 -750 / -1250 -855 / -855 Weight last 48 hrs Weight 259 lb 6 oz Weight 247 lb Physical Exam Const: COMMON NORMALS: no acute distress, patient oriented x3 and alert GENERAL APPEARANCE: cooperative, comfortable, well kempt and well hydrated HENMT: COMMON NORMALS: hearing grossly normal bilaterally, external ears normal and moist oral mucous membranes FACE & SINUS: normal facial exam NOSE: Normal septum present EXTERNAL EAR: Yes external ears normal Eye: COMMON NORMALS: EOMs intact bilaterally and no scleral icterus GENERAL EYE: appearance normal, both eyes and all related structures ALIGNMENT: Yes alignment normal Neck/C-Spine: COMMON NORMALS: supple and no JVD GENERAL: Yes normal visual inspection CAROTIDS: Yes normal carotid upstroke Chest: COMMONS NORMALS: normal inspection of the chest and normal palpation of entire chest wall CHEST: Yes Symmetrical chest wall rise and No tenderness Resp: COMMON NORMALS: clear to auscultation bilaterally AUSCULTATION: clear to auscultation bilaterally, no crackles, no rales, no rhonchi and no wheezes Cardio: COMMON NORMALS: no JVD, regular rate, regular rhythm, S1 normal heart sound present, S2 normal heart sound present and Peripheral pulses 2+ throughout PALPATION: normal PMI RATE: regular rate RHYTHM: regular rhythm HEART SOUNDS: S1 normal heart sound present, S2 normal heart sound present, no gallops and no murmurs BRUITS: no carotid bruits PERIPHERAL PULSES: Peripheral pulses 2+ throughout, radial pulses present, posterior tibial pulses present and dorsalis pedis present GI: COMMON NORMALS: Soft to palpation AUSCULTATION: Yes normoactive bowel sounds PALPATION: Yes Soft to palpation, No Tenderness to palpation present (GI), No Guarding due to palpation present (GI) and No Rigid due to palpation Extremity: GENERAL: No cyanosis, Yes edema and No pallor Neuro: COMMON NORMALS: patient oriented x3, CN's II-XII intact bilaterally and no focal motor deficits SENSORIUM/ORIENTATION: Yes alert Psych: COMMON NORMALS: Normal thought process present and speech normal APPEARANCE: Yes well kempt SPEECH: Yes normal speech MOOD & AFFECT: Yes euthymic mood THOUGHT PROCESS: Normal thought process present THOUGHT CONTENT: Yes Normal thought content present Urinary Catheter Management: Velazquez: Cath Placed During This Visit: yes, but has since been removed by the nurse Reason for Continuing Indwelling Catheter: Decision to DC Catheter Urinary Catheter Date of Insertion: 11/09/22 Urinary Catheter Time of Insertion: 20:30 Date Urinary Catheter Removed: 11/12/22 Time Urinary Catheter Discontinued: 09:40 Data 11/12/22 04:35 11/12/22 04:35 A&P Assessment and plan (1) Atrial fibrillation: remains in SR. -continue amiodarone and Eliquis. (2) CHF (congestive heart failure), NYHA class III: -3.5 L since admission -may transition to PO bumex (3) Chest pain: Most likely related to the arrhythmia. No evidence of ischemia, based on the perfusion scan. Had cardiac catheterization in the past showing no significant coronary artery disease. (4) Orthostatic hypotension: We will continue the conservative measures Plan His other problems are History of TIA Hypothyroidism Seronegative rheumatoid arthritis COPD Anemia Chronic venous insufficiency Ascending thoracic aortic aneurysm Degenerative joint disease GERD We will do an EKG in the morning. Encourage ambulation by physical therapy. Continue on the current dose of the hydralazine May continue under the current measures. Possible discharge home tomorrow Attestations Medical Necessity Statement*: As per primary team Coding Level of Care Code 02152 Diagnoses Atrial fibrillation I48.91 CHF (congestive heart failure), NYHA class III I50.9 Chest pain R07.9 Orthostatic hypotension I95.1
[2022-11-12] MEDS: albumin 25 G/100 ML BAG 60 G IV (15:57)
--- NOTE | 2022-11-12 22:24 | PC.NURSE ---
Patient requesting something to help with sleep. Spoke with Dr Cisneros and received onetime order for Ativan 2mg PO for tonight and Ativan 1mg PO as needed for sleep beginning 11/13/22. RBVO
[2022-11-12] MEDS: LORazepam 2 mg Tablet PO (22:47)
[2022-11-12] MEDS: atorvastatin 40 mg Tablet PO (22:47)
[2022-11-13] VITALS (7 sets, daily range): BP systolic 137–156; BP diastolic 71–82; PULSE 62–72; RESP 13–18; TEMP 36.6–37; O2SAT 93–98
--- NOTE | 2022-11-13 01:02 | PC.NURSE ---
Patient O2 dropped down to 80, 2L of oxygen was applied NC.
[2022-11-13] MEDS: isosorbide mononitrate ER 60 mg Tablet PO (09:36)
[2022-11-13] MEDS: magnesium lactate 84 mg Tablet PO (09:36)
[2022-11-13] MEDS: hyDRALAzine 25 mg Tablet PO (09:37)
[2022-11-13] MEDS: amiodarone 200 mg Tablet 400 MG PO (09:37)
[2022-11-13] MEDS: pantoprazole DR 40 mg Tablet PO (09:37)
[2022-11-13] MEDS: carvedilol 25 mg Tablet PO (09:38)
[2022-11-13] MEDS: levothyroxine 137 mcg Tablet PO (09:38)
[2022-11-13] MEDS: apixaban 5 mg Tablet PO (10:05)
[2022-11-13] MEDS: liothyronine 5 mcg Tablet 10 MCG PO (10:05)
--- NOTE | 2022-11-13 10:16 | P.PN_ITS ---
Subjective Subjective: PVC's noted on telemetry No chest pain, no dizzy spells overnight. He has not been out yet. Medications: Reviewed: Yes Vitals/I&O/Wt Last Vital Signs Temp 97.9 F 11/13/22 07:34 Pulse 72 11/13/22 08:19 Resp 16 11/13/22 08:19 BP 137/71 11/13/22 07:34 Pulse Ox 97 11/13/22 08:19 O2 Del Method Nasal Cannula 11/13/22 08:19 O2 Flow Rate 2 11/13/22 08:19 FiO2 21 11/12/22 16:00 11/12/22 11/13/22 11/13/22 22:59 06:59 14:59 Intake Total 490 / 710 200 / 910 120 / 120 Output Total 950 / 2025 2024 Balance -460 / -1315 200 / -1115 120 / 120 Weight last 48 hrs Weight 244 lb 14.4 oz Weight 259 lb 6 oz Physical Exam Const: COMMON NORMALS: no acute distress, patient oriented x3 and alert GENERAL APPEARANCE: cooperative, comfortable, well kempt and well hydrated HENMT: COMMON NORMALS: hearing grossly normal bilaterally, external ears normal and moist oral mucous membranes FACE & SINUS: normal facial exam NOSE: Normal septum present EXTERNAL EAR: Yes external ears normal Eye: COMMON NORMALS: EOMs intact bilaterally and no scleral icterus GENERAL EYE: appearance normal, both eyes and all related structures ALIGNMENT: Yes alignment normal Neck/C-Spine: COMMON NORMALS: supple and no JVD GENERAL: Yes normal visual inspection CAROTIDS: Yes normal carotid upstroke Chest: COMMONS NORMALS: normal inspection of the chest and normal palpation of entire chest wall CHEST: Yes Symmetrical chest wall rise and No tenderness Resp: COMMON NORMALS: clear to auscultation bilaterally AUSCULTATION: clear to auscultation bilaterally, no crackles, no rales, no rhonchi and no wheezes Cardio: COMMON NORMALS: no JVD, regular rate, regular rhythm, S1 normal heart sound present, S2 normal heart sound present and Peripheral pulses 2+ throughout PALPATION: normal PMI RATE: regular rate RHYTHM: regular rhythm HEART SOUNDS: S1 normal heart sound present, S2 normal heart sound present, no gallops and no murmurs BRUITS: no carotid bruits PERIPHERAL PULSES: Peripheral pulses 2+ throughout, radial pulses present, posterior tibial pulses present and dorsalis pedis present GI: COMMON NORMALS: Soft to palpation AUSCULTATION: Yes normoactive bowel sounds PALPATION: Yes Soft to palpation, No Tenderness to palpation present ( GI), No Guarding due to palpation present (GI) and No Rigid due to palpation Extremity: GENERAL: No cyanosis, No edema and No pallor Neuro: COMMON NORMALS: patient oriented x3, CN's II-XII intact bilaterally and no focal motor deficits SENSORIUM/ORIENTATION: Yes alert Psych: COMMON NORMALS: Normal thought process present and speech normal APPEARANCE: Yes well kempt SPEECH: Yes normal speech MOOD & AFFECT: Yes euthymic mood THOUGHT PROCESS: Normal thought process present THOUGHT CONTENT: Yes Normal thought content present Urinary Catheter Management: Velazquez: Cath Placed During This Visit: yes, but has since been removed by the nurse Reason for Continuing Indwelling Catheter: Decision to DC Catheter Urinary Catheter Date of Insertion: 11/09/22 Urinary Catheter Time of Insertion: 20:30 Date Urinary Catheter Removed: 11/12/22 Time Urinary Catheter Discontinued: 09:40 Data 11/12/22 04:35 11/12/22 04:35 A&P Assessment and plan (1) Atrial fibrillation: remains in SR. -continue amiodarone at present dose with plan for loading f/b maintenance dose on discharge and Eliquis. -May be discharged home from cardiac stand point (2) CHF (congestive heart failure), NYHA class III: -3.5 L since admission -may transition to PO bumex this morning (3) Chest pain: Most likely related to the arrhythmia. No evidence of ischemia, based on the perfusion scan. Had cardiac catheterization in the past showing no significant coronary artery disease. -none recently (4) Orthostatic hypotension: We will continue the conservative measures Plan His other problems are History of TIA Hypothyroidism Seronegative rheumatoid arthritis COPD Anemia Chronic venous insufficiency Ascending thoracic aortic aneurysm Degenerative joint disease GERD Attestations Medical Necessity Statement*: As per primary team Coding Level of Care Code 96140 Diagnoses Atrial fibrillation I48.91 CHF (congestive heart failure), NYHA class III I50.9 Chest pain R07.9 Orthostatic hypotension I95.1
[2022-11-13] MEDS: bumetanide 1 mg Tablet 2 MG PO (11:23)
--- NOTE | 2022-11-13 13:24 | P.PN_ITS ---
Subjective Subjective: Patient was initially to discharge on 11/12 but by afternoon his condition had changed with him developing symptomatic orthostatic hypotension. Cardiology adjusted medications. This morning, patient states he slept great after getting ativan. Reports breathing is OK. No more penile pain. Denies other new complaints. . Medications: Reviewed: Yes Vitals/I&O/Wt Last Vital Signs Temp 98.1 F 11/13/22 11:31 Pulse 68 11/13/22 11:31 Resp 17 11/13/22 11:31 BP 156/82 11/13/22 11:31 Pulse Ox 94 11/13/22 12:09 O2 Del Method Nasal Cannula 11/13/22 08:19 O2 Flow Rate 2 11/13/22 08:19 FiO2 21 11/12/22 16:00 11/12/22 11/13/22 11/13/22 22:59 06:59 14:59 Intake Total 490 / 710 200 / 910 120 / 120 Output Total 950 / 2025 2024 110 / 110 Balance -460 / -1315 200 / -1115 10 10 Weight last 48 hrs Weight 111.085 kg Weight 117.651 kg Physical Exam Narrative: General: Patient is awake.? Alert. Pleasant. Head:? Normocephalic. EOM intact.? Neck: No JVD. Cardiovascular: Normal S1 and S1. No gallops. No murmurs. Trace pitting edema in bilateral lower extremities. Lungs: Good air movement. No wheezing. No rhonchi or rales. Skin: No jaundice. Abdomen: Normal bowel sounds, abdomen soft and nontender. Extremities: No cyanosis or clubbing. Musculoskeletal: No erythematous joints. Neurological: Moves all 4 extremities. No myoclonus. Urinary Catheter Management: Velazquez: Cath Placed During This Visit: yes, but has since been removed by the nurse Reason for Continuing Indwelling Catheter: Decision to DC Catheter Urinary Catheter Date of Insertion: 11/09/22 Urinary Catheter Time of Insertion: 20:30 Date Urinary Catheter Removed: 11/12/22 Time Urinary Catheter Discontinued: 09:40 Data 11/12/22 04:35 11/12/22 04:35 A&P Assessment and plan (1) Atrial fibrillation: Continue beta-brigida Continue apixaban (2) CHF (congestive heart failure), NYHA class III: Continue oral Bumex (3) Orthostatic hypotension: Improved Ambulate w/ assistance Plan Discharge to home w/ home health Attestations Medical Necessity Statement*: Patient initially to discharge on 11/12, which was cancelled due to the development of symptomatic orthostatic hypotension. His medications were adjusted by cardiology. Symptoms improved. Patient discharging to home on 11/14/23. Coding Level of Care Code Acute Code for [facility] Fwd Diagnoses Atrial fibrillation I48.91 CHF (congestive heart failure), NYHA class III I50.9 Orthostatic hypotension I95.1
== END 2022-11-13 12:31 | disposition home health service (06) | DRG 291 ==
LOC: ER 16:09 → CSU 18:06
PROVIDERS: Admitting Provider Internal Medicine; Emergency Provider Family Medicine; PCP Internal Medicine; Visit Provider Internal Medicine
DX: I11.0 Hypertensive heart disease with heart failure (principal); I50.33 Acute on chronic diastolic (congestive) heart failure; D84.821 Immunodeficiency due to drugs; I48.91 Unspecified atrial fibrillation; I95.1 Orthostatic hypotension; I49.3 Ventricular premature depolarization; Z86.73 Personal history of transient ischemic attack (TIA), and cerebral infarction without residual deficits; E03.9 Hypothyroidism, unspecified; M06.09 Rheumatoid arthritis without rheumatoid factor, multiple sites; J44.9 Chronic obstructive pulmonary disease, unspecified; D64.9 Anemia, unspecified; I87.2 Venous insufficiency (chronic) (peripheral); K21.9 Gastro-esophageal reflux disease without esophagitis; I25.10 Atherosclerotic heart disease of native coronary artery without angina pectoris; E78.5 Hyperlipidemia, unspecified; G89.29 Other chronic pain; Z79.52 Long term (current) use of systemic steroids; Z79.82 Long term (current) use of aspirin; R26.81 Unsteadiness on feet; N48.89 Other specified disorders of penis; Z98.1 Arthrodesis status; Z96.643 Presence of artificial hip joint, bilateral; Z96.653 Presence of artificial knee joint, bilateral; G47.33 Obstructive sleep apnea (adult) (pediatric); Z85.46 Personal history of malignant neoplasm of prostate; Z85.828 Personal history of other malignant neoplasm of skin; Z86.16 Personal history of COVID-19
CPT/HCPCS: 36415; 51702; 71045; 73560; 73565; 78452; 80048; 80053; 80069; 81001; 83735; 84100; 84132; 84484; 85025; 93005; 93017; 93306; 94660; 94760; 96365; 96366; 96372; 96375; 96376; 97110; 97161; 97530; 99214; 99285; A9500; G0378; J1644; J1650; J2405; J2785; J3490; P9046; Q0163

== ENCOUNTER 2022-12-03 06:33 | Emergency (ER) | payer MEDICARE, OTHER, MEDICAID, SELFPAY ==
[2022-12-03] VITALS (35 sets, daily range): BP systolic 115–191; BP diastolic 75–98; PULSE 51–82; RESP 17–25; TEMP 36.8; O2SAT 91–96; BMI 33.2
--- NOTE | 2022-12-03 06:40 | CTR_ITS ---
PROCEDURE INFORMATION: Exam: CT Thoracic Spine Without Contrast Exam date and time: 12/03/2022 7:10 AM Age: 76 years old Clinical indication: Pain in thoracic spine; Prior surgery; Surgery date: 6+ months; Surgery type: T and L spine; Additional info: Pain after fall TECHNIQUE: Imaging protocol: Computed tomography of the thoracic spine without contrast. Radiation optimization: All CT scans at this facility use at least one of these dose optimization techniques: automated exposure control; mA and/or kV adjustment per patient size (includes targeted exams where dose is matched to clinical indication); or iterative reconstruction. REPORTING DATA: Count of CT and Cardiac NM exams in prior 12 months: This patient has received 4 known CTs and 0 known cardiac nuclear medicine studies in the 12 months prior to the current study. COMPARISON: CT abdomen pelvis w con* [id number] 09/29/2021 1:22 PM RADIATION DOSE METRICS: Total DLP (mGy-cm): 1296.81 FINDINGS: Bones/joints: There is posterior fusion of T9 through the lumbosacral spine. At the T8/9 level there is severe central canal stenosis from calcification within the anterior and posterior aspect of the spinal canal. There is endplate sclerosis at the T8/9 level. The right pedicle screw of T9 protrude through the superior endplate. Soft tissues: Unremarkable. CT/CT thoracic spin wo con* [id number] IMPRESSION: 1. Postop surgical change from T9 through the lumbosacral spine. 2. At the T8-9 level there is severe central canal stenosis from calcification within the anterior posterior aspect of the spinal canal. There is endplate sclerosis at T8/9 with mild erosive change. The right pedicle screw of T9 appears to protrude through the superior endplate.
--- NOTE | 2022-12-03 06:40 | XRR_ITS ---
PROCEDURE INFORMATION: Exam: XR Chest Exam date and time: 12/03/2022 6:59 AM Age: 76 years old Clinical indication: Dyspnea; Prior surgery; Surgery date: 6+ months; Surgery type: Back; Patient HX: HX of prostate cancer TECHNIQUE: Imaging protocol: Radiologic exam of the chest. Views: 1 view. COMPARISON: CR XR chest 1V portable [id number] 11/09/2022 3:59 PM FINDINGS: Lungs: Unremarkable. No consolidation. Pleural spaces: Unremarkable. No pleural effusion. No pneumothorax. Heart/Mediastinum: Unremarkable. No cardiomegaly. Bones/joints: Postop surgical change at the thoracolumbar junction.. XR/XR chest 1V [id number] IMPRESSION: No acute pulmonary disease process.
--- NOTE | 2022-12-03 06:52 | ECG_ITS ---
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 Measurements Intervals [place] Rate: 76 P: 60 [place]: 226 QRS: -52 QRSD: 154 T: 63 QT: 437 QTc: 492 Interpretive Statements SINUS RHYTHM WITH FIRST DEGREE AV BLOCK INTRAVENTRICULAR CONDUCTION DELAY [130+ ms QRS DURATION] Compared to ECG 11/12/2022 05:33:55 Myocardial infarct finding no longer present Electronically Signed On 12-03-2022 8:03:14 CDT by Priyanka Rivas M.D. [email or web address]
--- NOTE | 2022-12-03 06:59 | W.ED.FALL ---
HPI - Fall General: Chief Complaint: Fall Stated Complaint: fall, back pain Time Seen by Provider: 12/03/22 06:34 History of Present Illness: 76-year-old male with relevant past medical history of numerous lumbar surgeries, cervical fusion, anemia, atrial fibrillation on Eliquis, deconditioning, frequent leg weakness described as his knees buckling. Patient is here this morning after his knees buckled while walking in the [place] his [place]. He says he sort of draped himself over his 's rollator which was in the [place]. He did not fall all the way to the ground. However one of his legs was sort of stuck in the door jam adjacent. He tweaked his mid back. He called EMS to help him get settled. After he was repositioned and moved he noticed that it hurt to take a deep breath. The pain was across the middle of his back in the thoracic region. He does not think he would have broken anything because he did not actually fall all the way but believes that he may have strained something. He did not hit his head. No pain to the extremities or pelvis. Patient has chronic dyspnea and was recently admitted for congestive heart failure. He continues to have bilateral lower extremity edema despite taking Bumex 2 mg daily. Associated symptoms-after fall: Denies abdominal pain, headache(s) or neck pain Review of Systems General: Reports: 10 or more systems reviewed and unremarkable except in HPI and below Const: Denies: fever(s), chills or body aches Eyes: Denies: change in vision ENMT: Denies: throat pain Card: Denies: edema or syncope Resp: Denies: productive cough GI: Denies: abdominal pain, nausea, vomiting or diarrhea : Denies: flank pain, dysuria or urinary frequency Musc: Denies: neck pain, extremity pain or extremity swelling Skin/Breast: Denies: rash or erythema Neuro: Denies: headache(s), numbness in extremities or lack of coordination PFSH ED PFSH: Medical History (Updated 12/03/22 @ 08:00 by Shahbaz Cardona MD) Acquired calcaneovarus deformity of both feet Acute blood loss as cause of postoperative anemia Anemia Ascending aortic aneurysm Atrial fibrillation Bilateral hip joint arthritis Carotid artery disease Cervical postlaminectomy syndrome CHF (congestive heart failure), NYHA class III Chronic back pain Chronic venous insufficiency Closed fracture of right patella COPD (chronic obstructive pulmonary disease) COVID-19 DDD (degenerative disc disease), lumbar Degenerative disc disease, thoracic Failed back surgical syndrome Gastroparesis GERD (gastroesophageal reflux disease) 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, greater than 8 weeks High risk medication use History of prostate cancer History of TIA (transient ischemic attack) HTN (hypertension) Hx of cataract Hyperlipidemia Hypothyroid Immunosuppression Inflammatory arthritis Lower extremity edema Lumbar stenosis with neurogenic claudication Medication monitoring encounter Metatarsus adductus Orthostatic hypotension FUAD (obstructive sleep apnea) Osteoarthritis, generalized Radiation cystitis Renal cyst Seronegative rheumatoid arthritis Sleep apnea Undifferentiated connective tissue disease Urgency incontinence Venous insufficiency of both lower extremities Surgical History H/O colonoscopy 2011 H/O esophagogastroduodenoscopy 2011 H/O neck surgery x 2 H/O total knee replacement right and left History of abdominal aortic aneurysm (AAA) repair History of back surgery x 7 History of cardiac cath 7 years ago nonobstructive, negative stress test 1 year ago 2019 History of hip surgery RIGHT 04/11/19 History of penile implant History of tonsillectomy and adenoidectomy History of total bilateral knee replacement (TKR) History of total left hip arthroplasty History of total right hip arthroplasty Hx of appendectomy Hx of cholecystectomy S/P lumbar fusion 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 Status post revision of total replacement of right knee Status post spinal arthrodesis Family History Mother , Age 81 Bleeding disorder Clotting disorder CAD (coronary artery disease) 60s Cancer Stroke Father , Age 94 CAD (coronary artery disease) 80 Dementia Daughter Chronic kidney disease (CKD) Brother CAD (coronary artery disease) [place] Cancer Denies family history of Diabetes Suicide Anesthesia complication Lung disease Social History Smoking and tobacco status: never smoked Alcohol intake: never Substance/Drug Use: never Household members: spouse Marital status: Current occupational status: retired Special danny needs: No Agree to transfusion: Yes Physical Exam Const: COMMON NORMALS: no limitations, alert and well nourished EXAM LIMITATIONS: no altered mental status HENMT: COMMON NORMALS: normocephalic, atraumatic and external ears normal HEAD & SCALP: normocephalic and atraumatic EXTERNAL EAR: Yes external ears normal MOUTH: no muffled voice Eye: COMMON NORMALS: no scleral icterus Neck/C-Spine: COMMON NORMALS: no JVD GENERAL: Yes normal visual inspection and Yes trachea midline Chest: OTHER: Nontender Resp: OTHER: There is a faint end expiratory wheeze appreciable without the stethoscope. However on auscultation with the stethoscope I do not hear any wheezing. He is tachypneic. Lungs are otherwise clear. No splinting with respirations. Cardio: COMMON NORMALS: no JVD and regular rate RATE: regular rate RHYTHM: abnormal rhythm GI: COMMON NORMALS: Soft to palpation and non-tender PALPATION: Yes Soft to palpation and No Guarding due to palpation present (GI) Back/Pelvis: OTHER: Lots of scarring throughout the lumbar region and cervical region. Patient says he has had more than 10 surgeries. He does not have any tenderness in the midline throughout his spine. He does have tenderness in the thoracic paraspinal muscles. He says this is where he was bent over while leaning across to his 's walker. No swelling, rashes, wounds, contusions noted. Extremity: OTHER: Pitting edema both lower extremities Neuro: COMMON NORMALS: moves all extremities, no focal motor deficits and no sensory deficits noted SENSORIUM/ORIENTATION: Yes alert SPEECH: speech normal Psych: COMMON NORMALS: mental status grossly normal, Normal thought process present, cooperative, normal affect and speech normal SPEECH: Yes normal speech THOUGHT PROCESS: Normal thought process present Skin: COMMON NORMALS: no rashes or lesions noted, turgor normal and no jaundice GENERAL SKIN EXAM: no rashes or lesions noted and turgor normal Course Vital Signs: Vital signs: Vital Signs Temperature 98.3 F 12/03/22 06:33 Pulse Rate 68 12/03/22 07:47 Respiratory Rate 17 12/03/22 07:47 Blood Pressure 159/86 12/03/22 07:47 Pulse Oximetry 94 12/03/22 07:47 Oxygen Delivery Me thod Room Air 12/03/22 07:47 MDM - Fall Medical Decision Making 76-year-old male with myriad medical problems and progressive weakness whose legs buckled on him this morning. He was bent over his 's walker and strained his back. He says it now hurts him to twist his back or take a deep breath. He has some mild thoracic paraspinal muscle tenderness. Given his risk factors I Lety do a CT of the thoracic spine and a chest x-ray to evaluate for any compression fractures, rib fractures, pneumothorax, effusions. Patient also tachypneic on arrival although this is significantly improved as he is rested. He is also hypertensive. He has known congestive heart failure and has a history of reactive airway disease as well. I will give him his Bumex and carvedilol this morning. I will treat his pain and then trend his blood pressure. I am going to get a CBC to check on his hemoglobin again he was recently discharged and his hemoglobin was 9. EKG obtained at 6:52 AM shows a sinus rhythm, first-degree AV block, left axis deviation, LVH suggested, intraventricular conduction delay with QRS duration of 154 ms, no concerning ST segment elevations or depressions. No ectopy on this EKG although I am seeing some PVCs and PACs intermittently on his cardiac specialist CT scan of the lumbar region did show spinal stenosis at T8-T9. This is probably accounting for his symptoms as well as potentially his legs giving out on him with certain positions when he is walking. Patient's blood pressure trended down with pain management. He was given oral carvedilol which will take some time to work. Have reviewed his chest x-ray and other labs. His hemoglobin is actually gone up. Patient may be discharged from the emergency department but I discussed with him his CT findings and need to follow-up with neurosurgery. Lab Data 12/03/22 06:54 12/03/22 06:54 Radiology Impressions Thoracic Spine CT 12/03/22 06:40 IMPRESSION: 1. Postop surgical change from T9 through the lumbosacral spine. 2. At the T8-9 level there is severe central canal stenosis from calcification within the anterior posterior aspect of the spinal canal. There is endplate sclerosis at T8/9 with mild erosive change. The right pedicle screw of T9 appears to protrude through the superior endplate. Laboratory Results WBC 4.84 10^3/uL (3.29-11.43) 12/03/22 06:54 RBC 3.77 10^6/uL (3.85-5.65) L 12/03/22 06:54 Hgb 10.10 g/dL (11.27-16.99) L 12/03/22 06:54 Hct 33.5 % (37-53) L 12/03/22 06:54 MCV 88.9 fl (82-101) 12/03/22 06:54 MCH 26.8 pg (27-33) L 12/03/22 06:54 MCHC 30.1 g/dL (30-55) 12/03/22 06:54 RDW 16.7 % (12.1-15.1) H 12/03/22 06:54 Plt Count 192 10^3/cmm (157-399) 12/03/22 06:54 MPV 9.7 fL (7.4-10.4) 12/03/22 06:54 Neut % (Auto) 66.8 % 12/03/22 06:54 Lymph % (Auto) 18.0 % 12/03/22 06:54 [place] % (Auto) 12.4 % 12/03/22 06:54 Eos % (Auto) 1.2 % 12/03/22 06:54 Baso % (Auto) 1.2 % 12/03/22 06:54 Neut # (Auto) 3.23 10^3/uL (1.8-7.7) 12/03/22 06:54 Lymph # (Auto) 0.9 10^3/uL (0.8-4.8) 12/03/22 06:54 [place] # (Auto) 0.6 10^3/uL (0.2-0.9) 12/03/22 06:54 Eos # (Auto) 0.1 10^3/uL (0.0-0.8) 12/03/22 06:54 Baso # (Auto) 0.1 10^3/uL (0.0-0.1) 12/03/22 06:54 Nucleated RBC % (auto) 0 % 12/03/22 06:54 Nucleated RBCs # 0.0 /100WBC 12/03/22 06:54 Sodium 143 mmol/L (136-145) 12/03/22 06:54 Potassium 3.7 mmol/L (3.5-5.1) 12/03/22 06:54 Chloride 106 mmol/L (98-107) 12/03/22 06:54 Carbon Dioxide 27 mmol/L (22-29) 12/03/22 06:54 Anion Gap 13.7 (5-19) 12/03/22 06:54 BUN 20 mg/dL (8-23) 12/03/22 06:54 Creatinine 1.0 mg/dL (0.7-1.2) 12/03/22 06:54 GFR Calculation Not Reportable 12/03/22 06:54 Glucose 107 mg/dL (65-115) 12/03/22 06:54 Calculated Osmolality 299 mOsm/kg (285-295) H 12/03/22 06:54 Calcium 8.7 mg/dL (8.5-10.5) 12/03/22 06:54 NT-Pro-B Natriuret Pep 44 pg/mL (0-450) 12/03/22 06:54 XR interpretation done by ED provider, pending radiology final review ED provider radiology interpretation(s): CT Lumbar IMPRESSION: 1. ? Postop surgical change from T9 through the lumbosacral spine. 2. ? At the T8-9 level there is severe central canal stenosis from calcification within the anterior posterior aspect of the spinal canal. There is endplate sclerosis at T8/9 with mild erosive change. The right pedicle screw of T9 appears to protrude through the superior endplate. CXR: my interp: 1 view: Stable cardiomediastinal silhouette, no effusions, multiple areas of orthopedic spinal hardware (cervical and thoracic), no focal infiltrates or pneumothorax. No visible rib fractures Discharge Plan Discharge Patient Disposition: Home Clinical Impression: Spinal stenosis, thoracic, Encounter for medical screening examination, Fall Condition: Stable Prescriptions: New hydrocodone-acetaminophen 5-325 mg tablet 1 tab PO Q6H PRN (Reason: pain) Qty: 14 0RF No Action hydrocortisone 2.5 % cream 1 applic TOPICAL BID PRN (Reason: Itching) mometasone 0.1 % solution 1 applic topical DAILY PRN (Reason: skin irritation) Qty: 60 3RF Rx Instructions: apply a few drops to scalp daily as needed (DME) MARK BRACE See Rx Instructions .Route .MEDSUPPLY Qty: 1 0RF Rx Instructions: As directed aspirin 81 mg tablet,delayed release (DR/EC) 81 mg PO DAILY Qty: 90 3RF carvedilol 25 mg tablet 25 mg PO BID Qty: 180 3RF nitroglycerin [Nitrostat] 0.4 mg tablet, sublingual 0.4 mg SUBLINGUAL Q5M PRN (Reason: Chest Pain) Qty: 25 6RF leflunomide [Arava] 20 mg tablet 20 mg PO DAILY Qty: 90 1RF Rx Instructions: 340 b pricing please omeprazole 40 mg capsule,delayed release(DR/EC) 40 mg PO DAILY Qty: 90 1RF prednisone 5 mg tablet 5 mg PO DAILY Qty: 90 1RF Hold Instructions: Resume on 06/30/22. Rx Instructions: Two tablets PO daily (DME) Modification to AFO Brace to the left See Rx Instructions .Route .MEDSUPPLY Qty: 1 0RF Rx Instructions: As directed by [facility] diclofenac sodium 1 % gel 4 g TOPICAL QID PRN (Reason: Pain) Qty: 100 2RF ketoconazole 2 % cream 1 applic topical BID PRN (Reason: Skin Irritation) Rx Instructions: Apply 1-2 times daily on red, scaly areas of face isosorbide mononitrate 60 mg tablet extended release 24 hr 60 mg PO DAILY Qty: 90 3RF atorvastatin 40 mg tablet 40 mg PO BEDTIME Qty: 90 3RF acetaminophen 500 mg Capsule 1,000 mg PO Q4H PRN (Reason: Pain) levothyroxine [Synthroid] 137 mcg tablet 137 mcg PO DAILY Rx Instructions: PT STATES THIS MEDICATION MUST BE SYNTHROID, NOT LEVOTHYROXINE. liothyronine 5 mcg tablet 10 mcg PO DAILY hydralazine 25 mg Tablet 25 mg PO TID 30 Days Qty: 90 1RF Magtab 84 mg Tablet Extended Release 84 mg PO BID 30 Days Qty: 60 1RF Pacerone 200 mg Tablet See Rx Instructions .ROUTE .COMPLEX Qty: 90 1RF Rx Instructions: 200 mg, Take 2 tabs twice a day x 5 days, followed by 1 tab twice a day x 10 days and then 1 tab daily potassium chloride 10 mEq tablet extended release See Rx Instructions .ROUTE .COMPLEX Qty: 360 1RF Dose Instruction: TAKE 2 TABLETS BY MOUTH TWICE DAILY Rx Instructions: TAKE 2 TABLETS BY MOUTH TWICE DAILY Eliquis 5 mg Tablet 5 mg PO BID@0900,2100 Qty: 60 2RF bumetanide 2 mg Tablet 2 mg PO DAILY Qty: 90 2RF Discharge Orders: Discharge ED (Routine); Ordered 12/03/22 Ordered By: Shahbaz Cardona Referrals: Marsha Turner MD [Primary Care Provider] - Discharge Activity: Increase activity as tolerated Patient Instructions: Opioid Safety, Pain Management Activity Restrictions/Additional Instructions: CT Scan of the Thoracic Spine IMPRESSION: 1. ? Postop surgical change from T9 through the lumbosacral spine. 2. ? At the T8-9 level there is severe central canal stenosis from calcification within the anterior posterior aspect of the spinal canal. There is endplate sclerosis at T8/9 with mild erosive change. The right pedicle screw of T9 appears to protrude through the superior endplate. Please make a follow-up appointment with your neurosurgeon regarding spinal stenosis of the T8-9 region. Coding Level of Care Code ED Director Of Education And Training for Lauern Zimmerman
[2022-12-03 07:02] LABS: Basophils # 0.1 10^3/uL (0.0-0.1); Basophils % 1.2 %; Eosinophils # 0.1 10^3/uL (0.0-0.8); Eosinophils % 1.2 %; Hematocrit 33.5 % (37-53); Lymphocytes # 0.9 10^3/uL (0.8-4.8); Mean Corpuscular HGB Conc 30.1 g/dL (30-55); Mean Corpuscular Hemoglobin 26.8 pg (27-33); Mean Corpuscular Volume 88.9 fl (82-101); Mean Platelet Volume 9.7 fL (7.4-10.4); Monocytes # 0.6 10^3/uL (0.2-0.9); Monocytes % 12.4 %; Neutrophils # 3.23 10^3/uL (1.8-7.7); Neutrophils % 66.8 %; Nucleated Red Blood Cells % 0 %; Platelet Count 192 10^3/cmm (157-399); Red Blood Count 3.77 10^6/uL (3.85-5.65); Red Cell Distribution Width 16.7 % (12.1-15.1); White Blood Count 4.84 10^3/uL (3.29-11.43)
[2022-12-03 07:29] LABS: Anion Gap 13.7 (5-19); Blood Urea Nitrogen 20 mg/dL (8-23); Calcium 8.7 mg/dL (8.5-10.5); Carbon Dioxide 27 mmol/L (22-29); Chloride 106 mmol/L (98-107); Glucose 107 mg/dL (65-115); NT Pro B Type Natriuretic Pept 44 pg/mL (0-450); Osmolality Calculated 299 mOsm/kg (285-295); Potassium 3.7 mmol/L (3.5-5.1); Sodium 143 mmol/L (136-145)
[2022-12-03] MEDS: HYDROmorphone 1 mg/mL INJ 1 mL 0.5 MG IVP (07:42)
[2022-12-03] MEDS: bumetanide 0.25 mg/mL SDV 4 mL 2 MG IVP (07:43)
[2022-12-03] MEDS: carvedilol 25 mg Tablet PO (07:44)
[2022-12-03] MEDS: HYDROmorphone 1 mg/mL INJ 1 mL IVP (09:01)
== END 2022-12-03 13:26 | disposition home or self-care (01) ==
PROVIDERS: Emergency Provider Emergency Medicine; PCP Internal Medicine
DX: M48.04 Spinal stenosis, thoracic region (principal); Z79.82 Long term (current) use of aspirin; Z79.01 Long term (current) use of anticoagulants; Z96.653 Presence of artificial knee joint, bilateral; I11.0 Hypertensive heart disease with heart failure; I50.9 Heart failure, unspecified; J44.9 Chronic obstructive pulmonary disease, unspecified; I25.2 Old myocardial infarction; Z85.46 Personal history of malignant neoplasm of prostate; Z86.73 Personal history of transient ischemic attack (TIA), and cerebral infarction without residual deficits; E78.5 Hyperlipidemia, unspecified
CPT/HCPCS: 36415; 71045; 72128; 80048; 83880; 85025; 93005; 96374; 96375; 96376; 97116; 97162; 97530; 99285; J1170; J3490

== ENCOUNTER → 2022-12-04 09:59 | Outpatient (BNVA) | payer MEDICARE, OTHER, MEDICAID, SELFPAY | PROVIDERS: PCP Internal Medicine; Visit Provider Nurse Practitioner Family | DX: G47.33 Obstructive sleep apnea (adult) (pediatric) (principal); R06.02 Shortness of breath; I48.91 Unspecified atrial fibrillation; I50.9 Heart failure, unspecified; I44.0 Atrioventricular block, first degree | CPT/HCPCS: 93005; 99214 ==

== ENCOUNTER → 2022-12-08 14:26 | Outpatient (BNVA) | payer MEDICARE, OTHER, MEDICAID, SELFPAY | PROVIDERS: PCP Internal Medicine; Referring Provider Emergency Medicine; Visit Provider Physician Assistant | DX: M48.04 Spinal stenosis, thoracic region (principal); M51.35 Other intervertebral disc degeneration, thoracolumbar region | CPT/HCPCS: 72072; 99214 ==

== ENCOUNTER 2022-12-10 08:30 | Oncology outpatient (recurring) (ONCR) | payer MEDICARE, OTHER, MEDICAID, SELFPAY ==
[2022-11-19 08:34] VITALS: BP 121/70; PULSE 70; RESP 18; TEMP 36.6; O2SAT 94
[2022-11-19] MEDS: acetaminophen 325 mg Tablet 650 MG PO (08:59)
[2022-11-19] MEDS: diphenhydrAMINE 50 mg/mL SDV 1mL 25 MG IVP (08:59)
[2022-11-19] MEDS: methylPREDNISolone sod succ 40 mg SDV IVP (09:05)
[2022-11-19] MEDS: sodium chloride 0.9% 250 ML 75 ML IV (09:07)
[2022-11-19] MEDS: abatacept 1,000 MG in sodium chloride 0.9% (100 ml) 100 ML 200 MG IV (09:11)
[2022-11-19 09:50] VITALS: BP 132/66; PULSE 68; RESP 17; TEMP 37.1; O2SAT 94
== END 2022-12-12 23:59 | disposition home or self-care (01) ==
PROVIDERS: PCP Internal Medicine; Visit Provider Internal Medicine Rheumatology
DX: Z53.9 Procedure and treatment not carried out, unspecified reason
CPT/HCPCS: 96375; 96413; J0129; J1200; J2920; J7050

== ENCOUNTER 2022-12-14 10:31 | Outpatient (CLI) | payer MEDICARE, OTHER, SELFPAY ==
[2022-12-14 11:15] LABS: Basophils % 0.6 %; Eosinophils # 0.1 10^3/uL (0.0-0.8); Hematocrit 32.6 % (37-53); Lymphocytes # 0.5 10^3/uL (0.8-4.8); Lymphocytes % 7.6 %; Mean Corpuscular HGB Conc 30.7 g/dL (30-55); Mean Corpuscular Hemoglobin 26.6 pg (27-33); Mean Corpuscular Volume 86.7 fl (82-101); Mean Platelet Volume 9.9 fL (7.4-10.4); Monocytes # 0.5 10^3/uL (0.2-0.9); Monocytes % 8.7 %; Neutrophils # 5.06 10^3/uL (1.8-7.7); Neutrophils % 81.8 %; Nucleated Red Blood Cells % 0 %; Platelet Count 213 10^3/cmm (157-399); Red Blood Count 3.76 10^6/uL (3.85-5.65); Red Cell Distribution Width 17.4 % (12.1-15.1); White Blood Count 6.19 10^3/uL (3.29-11.43)
[2022-12-14 11:30] LABS: Add Urine Culture? No; Add Urine Microscopic? YES; Amorphous Sediment Urine 2+ /hpf; Bacteria Urine TRACE /hpf; Bilirubin Urine 1+ (Negative); Blood Urine Neg (Negative); Glucose Urine UA Norm (Normal); Ketones Urine 1+ (Negative); Leukocyte Esterase Urine Trace (Negative); Mucus Urine 2+ /hpf; Nitrate Urine Negative (Negative); Protein Urine Trace (Negative); RBC Urine 0-4 /hpf (0-2); Specific Gravity, Urine 1.025 (1.005-1.030); Squamous Epithelial Cell Urine 0-4 /hpf (0-5); Urine Appearance Clear (CLEAR); Urine Color Yellow (Yellow); Urobilinogen Urine 4 mg/dL (Negative); pH Urine 5 (5-7)
[2022-12-14 11:37] LABS: Alanine Aminotransferase 17 U/L (0-41); Albumin Level 3.7 g/dL (3.5-5.2); Alkaline Phosphatase 73 U/L (40-130); Aspartate Amino Transferase 15 U/L (0-40); Blood Urea Nitrogen 19 mg/dL (8-23); Calcium 8.8 mg/dL (8.5-10.5); Carbon Dioxide 28 mmol/L (22-29); Chloride 105 mmol/L (98-107); Globulin 2.7 g/dL (1.3-4.6); Glucose 139 mg/dL (65-115); Osmolality Calculated 301 mOsm/kg (285-295); Sodium 143 mmol/L (136-145); Total Bilirubin 0.4 mg/dL (0.15-1.2); Total Protein 6.4 g/dL (6.6-8.7)
== END 2022-12-14 10:32 | disposition home or self-care (01) ==
PROVIDERS: PCP Internal Medicine; Visit Provider Physician Assistant
DX: Z13.9 Encounter for screening, unspecified (principal)
CPT/HCPCS: 36415; 80053; 81001; 85025

== ENCOUNTER 2022-12-17 07:55 | Oncology outpatient (recurring) (ONCR) | payer MEDICARE, OTHER, MEDICAID, SELFPAY ==
[2022-12-17 08:22] VITALS: BP 141/69; PULSE 66; TEMP 36.9; O2SAT 95
[2022-12-17] MEDS: sodium chloride 0.9% 250 ML 75 ML IV (08:43)
[2022-12-17] MEDS: acetaminophen 325 mg Tablet 650 MG PO (08:43)
[2022-12-17] MEDS: diphenhydrAMINE 50 mg/mL SDV 1mL 25 MG IVP (08:45)
[2022-12-17] MEDS: methylPREDNISolone sod succ 40 mg SDV IVP (08:50)
[2022-12-17] MEDS: abatacept 1,000 MG in sodium chloride 0.9% (100 ml) 100 ML 200 MG IV (11:51)
[2022-12-17 13:01] VITALS: BP 177/87; PULSE 83; RESP 16; TEMP 36.7; O2SAT 95
== END 2023-01-12 23:59 | disposition home or self-care (01) ==
LOC: ONCMED 07:55
PROVIDERS: PCP Internal Medicine; Visit Provider Internal Medicine Rheumatology
DX: M06.042 Rheumatoid arthritis without rheumatoid factor, left hand (principal); M06.041 Rheumatoid arthritis without rheumatoid factor, right hand
CPT/HCPCS: 96365; 96375; J0129; J1200; J2920; J7050

== ENCOUNTER 2022-12-21 10:00 | Inpatient (IN) | payer MEDICARE, OTHER, MEDICAID, SELFPAY ==
[2022-12-18 13:21] VITALS: BMI 34.3
[2022-12-21] VITALS (44 sets, daily range): BP systolic 157–202; BP diastolic 73–125; PULSE 61–92; RESP 10–27; TEMP 36.2–37.1; O2SAT 94–99; BMI 31.8
--- NOTE | 2022-12-21 06:39 | W.PM.OPSUD ---
Surgery/Procedure H&P Update DATE OF PROCEDURE: December 21, 2022 DATE H&P PERFORMED: 12/17/22 H&P UPDATE INFORMATION: I have reviewed H&P completed within last 30 days, I have examined patient prior to procedure and No changes to prior documentation PREOP DIAGNOSIS: Thoracic Stenosis, revision spinal fusion PLANNED PROCEDURE: Operation Date: 12/21/22 07:00 Proposed Procedures p Spinal Fusion PSFT6-T9(Not Applicable) - Enrike Delarosa DO s Thoracic Decompression T8-T9(Not Applicable) - Enrike Delarosa DO
[2022-12-21] MEDS: sodium chloride 0.9% 1,000 ML 30 ML IV (06:51)
[2022-12-21] MEDS: ceFAZolin 2,000 MG in sodium chloride 0.9% (plus) 50 ML 100 MG IV ×3 (07:05→23:07)
[2022-12-21] MEDS: lidocaine-epi 2% 20 mL INJ INJECTION (08:06)
--- NOTE | 2022-12-21 09:50 | XR_ITS ---
WS: [id number] INTRAOPERATIVE TECHNIQUE: 5 Spot fluoroscopic images for intraoperative purposes. FLUOROSCOPY TIME: 37.1 seconds CLINICAL INFORMATION: OR PICS FINDINGS: Fluoroscopy used for intraoperative purposes. Prior extensive thoracolumbar fusion with pedicle screw fixation and dorsal interconnecting rods. Intraoperative revision with pedicle screw fixation and do rsal interconnecting rods in the mid and lower thoracic spine. Hardware appears in good position. Richard dware appears in good position. IMPRESSION: Images obtained for intraoperative purposes.
[2022-12-21] MEDS: vancomycin 1,000 MG SDV 1000 MG (10:00)
[2022-12-21] MEDS: fentaNYL 50 mcg/mL INJ 2mL IVP ×2 (10:32→10:42)
--- NOTE | 2022-12-21 10:33 | PM.OP ---
Operative Report Date of procedure: December 21, 2022 Pre-op diagnosis: Thoracic stenosis T8-9 with cord compression Post-op diagnosis: same Procedure done: 1. T6-T9 PSF 2. T6-T9 instrumentation 3. T8/9 laminectomy with partial facetectomy 4. hardware removal from spine 5. allograft Surgeon: Enrike Delarosa DO Scenic Artist: Cortes Eller Scenic Artist: The instructor adjunct surgical technician, Cortes Eller, PAC was needed for his expertise under the microscope. He was important and necessary throughout the procedure to complete in a safe and timely manner. He assisted with patient positioning prepping and draping tissue retraction suctioning of the operative field protection of the dural sac and tissue closure Estimated blood loss (mL): 500 Procedure: 1. T6-T9 PSF 2. T6-T9 instrumentation 3. T8/9 laminectomy with partial facetectomy 4. hardware removal from spine 5. allograft Patient is brought to the operative suite after undergoing anesthesia was placed in the prone position. All areas of pressure well-padded. Skin incision was made over his posterior spine. Subperiosteal dissection was made from T6 down to the T8. The issac was identified at the T9-10 and 11 level. This was dissected out as well. The end caps for T9-10 and 11 were removed bilaterally. Issac was pulled at least? The T9 screws were removed due to being loose. Once the screws were removed then attention was brought to placing pedicle screws. Pedicle screws were placed using the high-speed bur gearshift probe pedicle feeler and then placed on the screw. I was unable to do computer navigation due to the fact the patient was too big. Screws were placed at T6 bilaterally T7 bilaterally and T8 bilaterally once the screws were placed attention was then brought to cutting the issac in order to facilitate the issac issac connectors. Once the issac was cut then attention was brought to doing the laminectomy and partial facetectomies. This was done at the T8-9 level. A rongeur was used to remove the spinous process. And then high-speed bur was used to perform the laminectomy and partial facetectomy. And then the [place] rongeur was used to remove the remaining bone. The ligamentum flavum was then taken down from T8-T9. And then the medial aspect of facet joints were taken down medially The spinal cord was severely compressed once the decompression was done the spinal cord was completely wide open. Next attension was brought to attaching the rods. The issac connector was connected to the distal issac above the T10 screw. Connecting through the T6. This was done bilaterally. The lamina and TPs were then decorticated from T6 down to T10. And the ostial amp bone graft was placed. Vancomycin powder was placed deep drain was placed and wound was closed in layered fashion with 0 Vicryl 2-0 Vicryl and nylon suture.
[2022-12-21] MEDS: HYDROmorphone 1 mg/mL INJ 1 mL 0.5 MG IVP ×4 (10:52→11:33)
[2022-12-21] MEDS: midazolam 1 mg/mL INJ 2 mL 2 MG IVP ×2 (11:06→11:19)
--- NOTE | 2022-12-21 11:42 | PC.NURSE ---
1115 - Dr Dupree notified of pts continued/constant complaint of pain and to please help me - orders rec'd
--- NOTE | 2022-12-21 11:43 | PC.NURSE ---
1142 - Dr Dupree updated to medications pts has received IVP and continues complaints of pain and to please help me
--- NOTE | 2022-12-21 11:57 | PC.NURSE ---
1153 - Dr Dupree at side - Droperidol given per anesthesia order
--- NOTE | 2022-12-21 12:14 | PC.NURSE ---
1214 - Dr Dupree updated with patients continued complaint of pain - notified doctor of 02 sats on 3LNC and RR - instructed to move pt to floor with continous pulse ox order on floor - med surg charge nurse notified of need for pulse ox in room
--- NOTE | 2022-12-21 12:31 | ANES.PREANE2 ---
Pre-Anesthetic Assessment Height/Weight: Height 1.83 m Weight 106.594 kg Temp Pulse Resp BP Pulse Ox O2 Del Method O2 Flow Rate 97.3 F L 65 14 183/99 97 Nasal Cannula 3 12/21/22 11:31 12/21/22 12:21 12/21/22 12:21 12/21/22 12:21 12/21/22 12:21 12/21/22 12:21 12/21/22 12:21 Preop Diagnosis: Thoracic Stenosis, revision spinal fusion Operation Date: 12/21/22 07:00 Proposed Procedures p Spinal Fusion PSFT6-T9(Not Applicable) - Enrike Delarosa DO s Thoracic Decompression T8-T9(Not Applicable) - Enrike Delarosa DO Familial anesthetic complications: none Was Beta Ángela taken within 24 hours: Yes Was Clonidine taken within 24 hours: N/A Last intake: Intake Last Liquid Date 12/20/22 Last Liquid Time 00:00 Last Solid Date 12/20/22 Last Solid Time 19:00 Social No alcohol and No tobacco Exam alert, oriented x 3, clear to auscultation bilaterally and regular rate & rhythm Airway Submandibular: within normal limits Cervical ROM: within normal limits Mallampati: Class II Dentition: false CV/HEM Atrial Fibrillation, Coronary Artery Disease, Congestive Heart Failure (EF 50%), Hypertension and Myocardial Infarction anticoagulation GI Gastroesophageal Reflux Disease Metabolic Morbid Obesity and Thyroid Disease Chronic steroids Musc/skel Lower Back Pain and Osteoarthritis/DJD Anesthetic Plan ASA status: 3 Anesthesia: General Medications/Allergies Home Medications Medication Instructions Recorded Confirmed Last Taken Type hydrocortisone 2.5 % topical cream 1 applic topical BID PRN Itching 03/21/19 12/18/22 04/04/19 History liothyronine 5 mcg tablet 10 mcg PO DAILY 07/20/19 12/18/22 12/18/22 History acetaminophen 500 mg capsule 1,000 mg PO Q4H PRN Pain 02/06/20 12/18/22 12/18/22 History mometasone 0.1 % topical solution 1 applic topical DAILY PRN skin 06/27/20 12/18/22 Unknown Rx irritation #60 mL MARK BRACE #1 ea 08/01/20 12/18/22 Unknown Rx carvedilol 25 mg tablet 25 mg PO BID #180 tabs 03/24/21 12/21/22 12/21/22 Rx nitroglycerin 0.4 mg sublingual 0.4 mg sublingual Q5M PRN Chest 03/24/21 12/18/22 Unknown Rx tablet (Nitrostat) Pain #25 tabs Modification to AFO Brace to the #1 ea 02/02/22 12/08/22 Unknown Rx left diclofenac sodium 1 % topical gel 4 g topical QID PRN Pain #100 grams 06/08/22 12/18/22 Unknown Rx atorvastatin 40 mg tablet 40 mg PO BEDTIME #90 tabs 06/26/22 12/21/22 12/20/22 Rx leflunomide 20 mg tablet (Arava) 20 mg PO DAILY #90 tabs 08/17/22 12/21/22 12/21/22 Rx omeprazole 40 mg capsule,delayed 40 mg PO DAILY #90 caps 08/17/22 12/21/22 12/21/22 Rx release ketoconazole 2 % topical cream 1 applic topical BID PRN Skin 10/14/22 12/18/22 Unknown History Irritation levothyroxine 137 mcg tablet 137 mcg PO DAILY 10/14/22 12/21/22 12/21/22 History (Synthroid) apixaban 5 mg tablet (Eliquis) 5 mg PO BID@0900,2100 #60 tabs 11/12/22 12/18/22 12/12/22 Rx hydralazine 25 mg tablet 25 mg PO TID 30 days #90 tabs 11/12/22 12/21/22 12/21/22 Rx magnesium L-lactate 84 mg 84 mg PO BID 30 days #60 tabs 11/12/22 12/21/22 12/21/22 Rx tablet,extended release (Magtab) amiodarone 200 mg tablet (Pacerone) 200 mg PO DAILY 12/03/22 12/21/22 12/21/22 History oxybutynin chloride 5 mg 5 mg PO DAILY 12/03/22 12/21/22 12/21/22 History tablet,extended release 24 hr prednisone 5 mg tablet 10 mg PO DAILY 12/03/22 12/21/22 12/21/22 History pregabalin 50 mg capsule 50 mg PO DAILY 12/03/22 12/21/22 12/21/22 History baclofen 10 mg tablet 10 mg PO BID #14 tabs 12/17/22 12/21/22 12/21/22 Rx bumetanide 2 mg tablet 2 mg PO BID 12/18/22 12/18/22 12/18/22 History isosorbide mononitrate 30 mg 30 mg PO DAILY 12/18/22 12/18/22 12/18/22 History tablet,extended release 24 hr potassium chloride 10 mEq 20 meq PO BID 12/18/22 12/21/22 12/21/22 History tablet,extended release Allergies Allergy/AdvReac Type Severity Reaction Status Date / Time metoclopramide [From Reglan] Allergy Unknown Verified 12/18/22 12:28 morphine Allergy ALGY-Hives Verified 12/18/22 12:28 tamsulosin [From Flomax] Allergy ADR/ALGY-Hy Verified 12/18/22 12:28 potension zolpidem [From Ambien] Allergy Unknown Verified 12/18/22 12:28 hydrocodone AdvReac Mild Hypotension Verified 12/18/22 12:28 oxycodone AdvReac Mild Hypotension Verified 12/18/22 12:28 paper tape Allergy tears skin Uncoded 12/18/22 12:28 off Current Medications Generic Name Dose Route Start Last Admin Trade Name Freq PRN Reason Stop Dose Admin Hydromorphone HCl 0.5 mg 12/21/22 07:01 12/21/22 11:33 Hydromorphone 1 Mg/Ml Inj 1 Ml IVP 12/22/22 07:01 0.5 mg Q10M PRN Administration Pain level 7-10 PACU Phase I Sodium Chloride 1,000 mls @ 30 mls/hr 12/21/22 06:15 12/21/22 09:28 Sodium Chloride 0.9% IV 12/22/22 06:14 Infused .Q24H FATIMAH Infusion Midazolam HCl 2 mg 12/21/22 06:04 12/21/22 11:19 Midazolam 1 Mg/Ml Inj 2 Ml IVP 0.5 mg Q5M PRN Administration Preop Anxiety PFSH Anesthesia Medical History Acquired calcaneovarus deformity of both feet Acute blood loss as cause of postoperative anemia Anemia Ascending aortic aneurysm Atrial fibrillation Bilateral hip joint arthritis Carotid artery disease Cervical postlaminectomy syndrome CHF (congestive heart failure), NYHA class III Chronic back pain Chronic venous insufficiency Closed fracture of right patella COPD (chronic obstructive pulmonary disease) COVID-19 DDD (degenerative disc disease), lumbar Degenerative disc disease, thoracic Failed back surgical syndrome Gastroparesis GERD (gastroesophageal reflux disease) 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, greater than 8 weeks High risk medication use History of prostate cancer History of TIA (transient ischemic attack) HTN (hypertension) Hx of cataract Hyperlipidemia Hypothyroid Immunosuppression Inflammatory arthritis Lower extremity edema Lumbar stenosis with neurogenic claudication Medication monitoring encounter Metatarsus adductus Orthostatic hypotension FUAD (obstructive sleep apnea) Osteoarthritis, generalized Radiation cystitis Renal cyst Seronegative rheumatoid arthritis Sleep apnea Spinal stenosis, thoracic Undifferentiated connective tissue disease Urgency incontinence Venous insufficiency of both lower extremities Surgical History H/O colonoscopy 2011 H/O esophagogastroduodenoscopy 2012 H/O neck surgery x 2 H/O total knee replacement right and left History of abdominal aortic aneurysm (AAA) repair History of back surgery x 7 History of cardiac cath 7 years ago nonobstructive, negative stress test 1 year ago 2019 History of hip surgery RIGHT 04/11/19 History of penile implant History of tonsillectomy and adenoidectomy History of total bilateral knee replacement (TKR) History of total left hip arthroplasty History of total right hip arthroplasty Hx of appendectomy Hx of cholecystectomy S/P lumbar fusion 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 Status post revision of total replacement of right knee Status post spinal arthrodesis Family History Mother , Age 81 Bleeding disorder Clotting disorder CAD (coronary artery disease) 60s Cancer Stroke Father , Age 94 CAD (coronary artery disease) 80 Dementia Daughter Chronic kidney disease (CKD) Brother CAD (coronary artery disease) [place] Cancer Denies family history of Diabetes Suicide Anesthesia complication Lung disease Social History Smoking and tobacco status: never smoked Alcohol intake: never Substance/Drug Use: never Household members: spouse Marital status: Current occupational status: retired Special danny needs: No Agree to transfusion: Yes Data Anesthesia Blood Bank 12/21/22 06:40 Blood Type A Positive Rho(D) Type Positive Antibody Screen Negative Cardiac Studies: Echocardiogram 11/09/22 Echocardiogram Ultrasound 07/03/20 Sestamibi Stress Test (Cardiology) 11/09/22
[2022-12-21] MEDS: hyDRALAzine 25 mg Tablet PO ×2 (13:14→20:58)
--- NOTE | 2022-12-21 13:16 | PC.NURSE ---
PTS BP 184/100, CALLED DR ALEXIS, GOT HOSP CONSULT.
--- NOTE | 2022-12-21 15:11 | PM.CONSULT ---
Providers/Reason For Consult Consulting Physician/Specialty*: Frase/Hosptialist Reason for Consult*: Hypertension Requesting Physician: Dr Delarosa Attending Physician: Enrike Delarosa DO Primary Care Provider: Marsha Turner MD History of Present Illness History of Present Illness Kojo Marinelli is a 77 year old male who presented to [facility] on the day of admission for planned surgical intervention by Dr. Delarosa. He underwent posterior spinal fusion from T6-T9 with instrumentation along with T8/9 laminectomy with partial facetectomy and hardware removal. He has had multiple prior back surgeries (somewhere between 10 and 15 total now). Most recent symptoms occurred after a fall. He had been seen in outpatient, evaluated and arrangements made for surgical intervention. Mr. Marinelli does have seronegative rheumatoid arthritis and is on chronic prednisone as well as leflunomide. He took both medications this morning. He is not on chronic narcotic pain medication, and in fact cannot tolerate morphine, hydrocodone or oxycodone. He is able to tolerate Dilaudid by history. He uses topical NSAIDs and Tylenol along with baclofen and lyrica at home. He has multiple chronic medical problems as outlined below including atrial fibrillation for which he is usually on chronic anticoagulation in the form of Eliquis along with amiodarone. He has a history of CHF with last EF 56%, takes bumetanide and carvedilol. On isosorbide and statin therapy as well. Has known sleep apnea and is on chronic BiPAP therapy with settings 15/7 but reports that he is unable to tolerate hospital devices. They did not bring his own device. At baseline he requires assistive devices to walk. Perioperative today he had about 500 cc of blood loss. He did have some perioperative hypertension. His blood pressures can be quite variable and previous records indicate episodes of significant orthostatic hypotension. At the present time he is complaining of pain in his back. He can feel both of his feet but they are a little numb. He can move both of them. He has had some intermittent shaking. Currently has a Velazquez catheter. After surgery blood pressure was as high as 190s over 110s. Hospitalist were consulted for management. He took all of his antihypertensive medication this morning including bumetanide, carvedilol, isosorbide and hydralazine. Review of Systems General: Reports: Other (ROS as per HPI or as noted here) Eyes: Reports: dry eyes ENMT: Reports: dry mouth GI: Reports: nausea; Denies: vomiting or constipation : Reports: urinary urgency Endo: Reports: polydipsia ( postop) Medications/Allergies Home Medications Medication Instructions Recorded Confirmed Last Taken Type hydrocortisone 2.5 % topical cream 1 applic topical BID PRN Itching 03/21/19 12/18/22 04/04/19 History liothyronine 5 mcg tablet 10 mcg PO DAILY 07/20/19 12/18/22 12/18/22 History acetaminophen 500 mg capsule 1,000 mg PO Q4H PRN Pain 02/06/20 12/18/22 12/18/22 History mometasone 0.1 % topical solution 1 applic topical DAILY PRN skin 06/27/20 12/18/22 Unknown Rx irritation #60 mL MARK BRACE #1 ea 08/01/20 12/18/22 Unknown Rx carvedilol 25 mg tablet 25 mg PO BID #180 tabs 03/24/21 12/21/22 12/21/22 Rx nitroglycerin 0.4 mg sublingual 0.4 mg sublingual Q5M PRN Chest 03/24/21 12/18/22 Unknown Rx tablet (Nitrostat) Pain #25 tabs Modification to AFO Brace to the #1 ea 02/02/22 12/08/22 Unknown Rx left diclofenac sodium 1 % topical gel 4 g topical QID PRN Pain #100 grams 06/08/22 12/18/22 Unknown Rx atorvastatin 40 mg tablet 40 mg PO BEDTIME #90 tabs 06/26/22 12/21/22 12/20/22 Rx leflunomide 20 mg tablet (Arava) 20 mg PO DAILY #90 tabs 08/17/22 12/21/22 12/21/22 Rx omeprazole 40 mg capsule,delayed 40 mg PO DAILY #90 caps 08/17/22 12/21/22 12/21/22 Rx release ketoconazole 2 % topical cream 1 applic topical BID PRN Skin 10/14/22 12/18/22 Unknown History Irritation levothyroxine 137 mcg tablet 137 mcg PO DAILY 10/14/22 12/21/22 12/21/22 History (Synthroid) apixaban 5 mg tablet (Eliquis) 5 mg PO BID@0900,2100 #60 tabs 11/12/22 12/18/22 12/12/22 Rx hydralazine 25 mg tablet 25 mg PO TID 30 days #90 tabs 11/12/22 12/21/22 12/21/22 Rx magnesium L-lactate 84 mg 84 mg PO BID 30 days #60 tabs 11/12/22 12/21/22 12/21/22 Rx tablet,extended release (Magtab) amiodarone 200 mg tablet (Pacerone) 200 mg PO DAILY 12/03/22 12/21/22 12/21/22 History oxybutynin chloride 5 mg 5 mg PO DAILY 12/03/22 12/21/22 12/21/22 History tablet,extended release 24 hr prednisone 5 mg tablet 10 mg PO DAILY 12/03/22 12/21/22 12/21/22 History pregabalin 50 mg capsule 50 mg PO DAILY 12/03/22 12/21/22 12/21/22 History baclofen 10 mg tablet 10 mg PO BID #14 tabs 12/17/22 12/21/22 12/21/22 Rx bumetanide 2 mg tablet 2 mg PO BID 12/18/22 12/18/22 12/18/22 History isosorbide mononitrate 30 mg 30 mg PO DAILY 12/18/22 12/18/22 12/18/22 History tablet,extended release 24 hr potassium chloride 10 mEq 20 meq PO BID 12/18/22 12/21/22 12/21/22 History tablet,extended release Allergies Allergy/AdvReac Type Severity Reaction Status Date / Time metoclopramide [From Reglan] Allergy Unknown Verified 12/18/22 12:28 morphine Allergy ALGY-Hives Verified 12/18/22 12:28 tamsulosin [From Flomax] Allergy ADR/ALGY-Hy Verified 12/18/22 12:28 potension zolpidem [From Ambien] Allergy Unknown Verified 12/18/22 12:28 hydrocodone AdvReac Mild Hypotension Verified 12/18/22 12:28 oxycodone AdvReac Mild Hypotension Verified 12/18/22 12:28 paper tape Allergy tears skin Uncoded 12/18/22 12:28 off Current Medications Generic Name Dose Route Start Last Admin Trade Name Freq PRN Reason Stop Dose Admin Hydralazine HCl 25 mg 12/21/22 15:00 12/21/22 13:14 Hydralazine 25 Mg Tablet PO 25 mg TID FATIMAH Administration PFSH Acute PFSH: Medical History (Updated 12/21/22 @ 17:42 by Carina Douglas MD) Acquired calcaneovarus deformity of both feet Anemia Ascending aortic aneurysm Atrial fibrillation CAD (coronary artery disease) Carotid artery disease Cervical postlaminectomy syndrome CHF (congestive heart failure), NYHA class III EF 10/2022 43% on stress test, 50% on echo Chronic back pain Closed fracture of right patella COPD (chronic obstructive pulmonary disease) COVID-19 2020 DDD (degenerative disc disease), lumbar Degenerative disc disease, thoracic Failed back surgical syndrome Gastroparesis GERD (gastroesophageal reflux disease) H/O malignant neoplasm of skin High risk medication use prednisone and leflunomide 12/2022 History of prostate cancer History of TIA (transient ischemic attack) HTN (hypertension) Hx of cataract Hyperlipidemia Hypothyroid Lumbar stenosis with neurogenic claudication Metatarsus adductus Orthostatic hypotension FUAD (obstructive sleep apnea) Osteoarthritis, generalized Radiation cystitis Renal cyst Seroma, postoperative Seronegative rheumatoid arthritis Spinal stenosis, thoracic Urgency incontinence Venous insufficiency of both lower extremities Surgical History (Updated 12/21/22 @ 17:14 by Carina Douglas MD) H/O colonoscopy 2011 H/O esophagogastroduodenoscopy 2011 H/O neck surgery x 2 History of abdominal aortic aneurysm (AAA) repair History of back surgery multiple procedures (>10) History of cardiac cath ~2012 nonobstructive 10/2022 stress test EF 43 %, small areas prior infarcts RCA and LAD territories History of hip surgery RIGHT 04/11/19 History of penile implant History of tonsillectomy and adenoidectomy History of total bilateral knee replacement (TKR) History of total left hip arthroplasty History of total right hip arthroplasty Hx of appendectomy Hx of cholecystectomy S/P lumbar fusion S/P spinal fusion 02/2021 - T9-S1 Dr Delarosa 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 Status post revision of total replacement of right knee Status post spinal arthrodesis Family History Mother , Age 81 Bleeding disorder Clotting disorder CAD (coronary artery disease) 60s Cancer Stroke Father , Age 94 CAD (coronary artery disease) 80 Dementia Daughter Chronic kidney disease (CKD) Brother CAD (coronary artery disease) [place] Cancer Denies family history of Diabetes Suicide Anesthesia complication Lung disease Social History Smoking and tobacco status: never smoked Alcohol intake: never Substance/Drug Use: never Household members: spouse Marital status: Current occupational status: retired Special danny needs: No Agree to transfusion: Yes Vitals/I&O/Wt Last Vital Signs Temp 97.8 F 12/21/22 14:45 Pulse 78 12/21/22 14:45 Resp 17 12/21/22 14:45 BP 176/96 12/21/22 14:45 Pulse Ox 98 12/21/22 14:45 O2 Del Method Nasal Cannula 12/21/22 14:45 O2 Flow Rate 3 12/21/22 13:16 12/21/22 12/21/22 12/21/22 06:59 14:59 22:59 Intake Total 1850 / 1850 Output Total 840 / 840 Balance 1010 / 1010 Weight last 48 hrs Weight 106.594 kg Physical Exam Narrative: Patient is awake and alert, hard of hearing but able to answer questions. Normocephalic. Ointment over his eyelids noted. Extraocular movements are intact. Dry mucous membranes. Lungs are clear to auscultation bilaterally. Regular rate and rhythm. Abdomen is soft, nontender with positive bowel sounds. Velazquez catheter is in place. Feet are warm. There is what looks like faded blue wording to both lower extremities probably from surgical management equipment. At first I thought they were old tattoos but he has no known history of tattoos. Brisk capillary refill noted. Can feel light touch to both feet equally though indicates that sensation is less than what it normally feels like. Able to move toes of both feet equally. Some shaking of both hands right more so than left noted toward the end of evaluation and then lessened. Surgical site not visualized at this time. Urinary Catheter Management: Velazquez: Cath Placed During This Visit: yes Urinary Catheter Date of Insertion: 12/21/22 Urinary Catheter Time of Insertion: 07:30 A&P Assessment and plan (1) S/P laminectomy with spinal fusion: POD #0, currently with suboptimal post op pain control (2) HTN (hypertension): primary hypertension, currently suboptimally managed postoperatively. Had not had his usual midday agents and also complaining of back pain. Per blood pressure often variable with wide ranges throughout the day. Chronically on bumetanide, carvedilol, isosorbide and hydralazine. (3) Anemia: Chronic anemia related to chronic inflammation. Preoperative hemoglobin was 10. Experienced about 500 ml blood loss operatively. At risk for post-operative worsening of anemia. (4) CHF (congestive heart failure), NYHA class III: Reduced ejection fraction somewhere between 43 and 50% per recent cardiac evaluations. Chronically on beta-blockade, nitrates and diuretic therapy. No recent weight gain or respiratory symptoms. (5) Atrial fibrillation: Chronic with current sinus rhythm on amiodarone therapy. On chronic anticoagulation with Eliquis which has been held preoperatively. (6) Seronegative rheumatoid arthritis: On chronic prednisone and leflunomide. Has taken usual prednisone dosing and continued arava without interruption. (7) FUAD (obstructive sleep apnea): Chronically on home BiPAP. Declines use of hospital BiPAP and did not bring his device. (8) High risk medication use: Chronic steroids and leflunomide along with chronic anticoagulation Plan History of CAD Hyperlipidemia Hypothyroidism Urge Incontinence GERD Midday dosing of hydralazine has been ordered Will order oral and IV Dilaudid options for pain management Narcan on profile as does not take narcotics regularly Continue Tylenol and other nonnarcotic pain control options postoperatively as ordered by Dr Delarosa Home baclofen and lyrica ordered With current Toradol order, have held home topical diclofenac Cardiac monitoring Monitor blood pressure response adjusting therapy as needed We will continue usual dosing of carvedilol, hydralazine and isosorbide With perioperative blood loss, dry mouth and excessive thirst and decreased urine output postoperatively we will hold evening dose of bumetanide and continue a low volume of fluids overnight Plan to resume bumetanide tomorrow Monitor I&O closely Home amiodarone Eliquis has been ordered to resume which will provide DVT prophylaxis coverage post operatively Recheck hemoglobin in am along with TIBC On home prednisone dosing, monitor for any signs of adrenal insufficiency with perioperative stress Holding home leflunomide as can potentially impede post operative healing/impact risk of infection; has had prior postoperative seroma Asked to bring home bipap device for use in hospital as pt declines uses of hospital devices Oxygen as needed for now, discussed risk of apnea events and arrhythmias without management of sleep apnea Home atorvastatin Home levothyroxine and liothyronine Home PPI Home oxybutinin Has incentive spirometer Has SCDs Velazquez management as per ligia On antibiotics as per surgery PT eval as per Dr Delarosa Per current plan is for [facility] at discharge for rehabilitation - placed order for case management FULL CODE Thank you for consultation we will follow along and address medical issues during hospital course Consult Attestations Medical Necessity Statement: as per surgery and Moderate Time for a total of 65 minutes, includes reviewing past or interval history, examining/interviewing patient, placing orders, discussing plan of care with staff, communicating with other healthcare providers and documenting encounter Diagnoses S/P laminectomy with spinal fusion Z98.1 HTN (hypertension) I10 Anemia D64.9 CHF (congestive heart failure), NYHA class III I50.9 Atrial fibrillation I48.91 Seronegative rheumatoid arthritis M06.00 FUAD (obstructive sleep apnea) G47.33 High risk medication use Z79.899
--- NOTE | 2022-12-21 15:56 | ANE.PACU2 ---
Inpatient post-anesthesia follow up: Airway intact: Yes Vital signs: Temperature 97.8 F Pulse Rate 78 Respiratory Rate 17 Blood Pressure 176/96 Pulse Oximetry 98 Oxygen Delivery Me thod Nasal Cannula Oxygen Flow Rate 3 Fraction of Inspir ed Oxygen Hydration adequate: Yes Nausea and vomiting: No Pain level: 6 Mental status: Baseline Additional Comments: Difficult pain control
[2022-12-21] MEDS: baclofen 10 mg Tablet 5 MG PO (16:19)
[2022-12-21] MEDS: lactated ringers 1,000 ML 90 ML IV (16:23)
[2022-12-21] MEDS: hyDRALAzine 20 mg/mL INJ 1 mL 10 MG IVP (17:20)
[2022-12-21] MEDS: magnesium lactate 84 mg Tablet PO (17:20)
[2022-12-21] MEDS: docusate sodium 100 mg Capsule PO (17:21)
[2022-12-21] MEDS: potassium chloride ER 20 mEq Tablet PO (17:21)
[2022-12-21] MEDS: ketorolac 30 mg/mL INJ IVP (19:37)
[2022-12-21] MEDS: baclofen 10 mg Tablet PO (20:58)
[2022-12-21] MEDS: apixaban 5 mg Tablet PO (20:58)
[2022-12-21] MEDS: atorvastatin 40 mg Tablet PO (20:58)
[2022-12-21] MEDS: carvedilol 25 mg Tablet PO (20:58)
[2022-12-22] VITALS (11 sets, daily range): BP systolic 136–160; BP diastolic 57–80; PULSE 58–78; RESP 15–19; TEMP 36.8–37.1; O2SAT 93–98
[2022-12-22] MEDS: lactated ringers 1,000 ML 90 ML IV (00:52)
[2022-12-22] MEDS: ketorolac 30 mg/mL INJ IVP (04:07)
[2022-12-22 06:05] LABS: Basophils % 0.2 %; Hematocrit 28.5 % (37-53); Lymphocytes # 0.5 10^3/uL (0.8-4.8); Lymphocytes % 4.6 %; Mean Corpuscular HGB Conc 29.8 g/dL (30-55); Mean Corpuscular Volume 90.5 fl (82-101); Mean Platelet Volume 9.7 fL (7.4-10.4); Monocytes % 9.8 %; Neutrophils # 8.86 10^3/uL (1.8-7.7); Neutrophils % 84.8 %; Nucleated Red Blood Cells % 0 %; Platelet Count 215 10^3/cmm (157-399); Red Blood Count 3.15 10^6/uL (3.85-5.65); Red Cell Distribution Width 17.2 % (12.1-15.1); White Blood Count 10.44 10^3/uL (3.29-11.43)
[2022-12-22] MEDS: ceFAZolin 2,000 MG in sodium chloride 0.9% (plus) 50 ML 100 MG IV (06:13)
[2022-12-22 06:21] LABS: Anion Gap 13.8 (5-19); Blood Urea Nitrogen 20 mg/dL (8-23); Calcium 8.3 mg/dL (8.5-10.5); Carbon Dioxide 22 mmol/L (22-29); Chloride 106 mmol/L (98-107); Glucose 132 mg/dL (65-115); Magnesium 2.1 mg/dL (1.7-2.3); Osmolality Calculated 288 mOsm/kg (285-295); Phosphorus 3.9 mg/dL (2.5-4.5); Potassium 4.8 mmol/L (3.5-5.1); Sodium 137 mmol/L (136-145)
[2022-12-22 06:32] LABS: Iron 47 ug/dL (59-158); Percent Saturation 18.1 % (20-50); Total Iron Binding Capacity 259 mcg/dl; Unsaturated Iron Binding 212 ug/dL (112-347)
--- NOTE | 2022-12-22 08:09 | PM.PN ---
Subjective Subjective: POD 1 Patient resting comfortably. Complains of left eye soreness. Denies any chest pain, shortness of breath, headaches. Vitals/I&O/Wt Last Vital Signs Temp 98.6 F 12/22/22 07:12 Pulse 72 12/22/22 07:12 Resp 18 12/22/22 07:12 BP 160/80 12/22/22 07:12 Pulse Ox 98 12/22/22 07:12 O2 Del Method Nasal Cannula 12/22/22 07:12 O2 Flow Rate 3 12/21/22 19:41 12/21/22 12/22/22 12/22/22 22:59 06:59 14:59 Intake Total 530 / 2380 863.5 / 3243.5 Output Total 1100 / 1940 200 / 2140 Balance -570 / 440 663.5 / 1103.5 Weight last 48 hrs Weight 235 lb Physical Exam Narrative: Patient presents alert and oriented x3 with a good general appearance normal mood and affect. Normal coordination normal stability. Mild tenderness around the incisional site with the incision appear to be clean and dry with Hemovac drain intact. No signs of erythema or drainage. No signs of infection. Patient denies any fevers or chills. 4/5 motor strength both lower extremities with negative straight leg raise bilaterally. Calves are supple no medial thigh tenderness. Pulses are 2+ at the dorsalis pedis and posterior tibial region. Good capillary refill throughout normal sensation light touch both lower extremities. Urinary Catheter Management: Velazquez: Cath Placed During This Visit: yes Reason for Continuing Indwelling Catheter: Perioperative Use in Selected Surgeries Urinary Catheter Date of Insertion: 12/21/22 Urinary Catheter Time of Insertion: 07:30 Data 12/22/22 05:45 12/22/22 05:45 A&P Assessment and plan (1) S/P laminectomy with spinal fusion: Physical therapy to work with mobilization. Discontinue Hemovac drain. Discussed with nurse to give Visine drops to the left eye as needed. Continue incentive spirometry for pulmonary toilet. We will have geriatric social work professor work with placement. High risk of bleeding to continue with SCDs for DVT prophylaxis. (2) Acute blood loss as cause of postoperative anemia: Attestations Medical Necessity Statement*: Await placement Coding Level of Care Code Acute Code for Chg Fwd Diagnoses S/P laminectomy with spinal fusion Z98.1 Acute blood loss as cause of postoperative anemia D62
--- NOTE | 2022-12-22 09:30 | PC.CHAP ---
Pastoral Care Encounter/Spiritual Assessment Type of Contact [] Declined duct layer helper visit [] Patient/Family/Request visit [] Outpatient visit [] Follow-up visit [] Physician referral [] Code/Alert [] Routine visit [] Staff referral [] Actively dying [x] Patient sleeping [] Family support [] [] Out of room [] Palliative care [] [] Receiving care in room [] Pre-surgical visit [] Trauma [] Long length of stay [] ICU visit [] Other: Relational/Emotional Strength [] Patient feels connected with others/family/visitors/staff [] Distress [] Loneliness/isolation [] Abandonment Spirituality of Patient [] Person of Nini [] Attends Church of their Nini [] Believes in Prayer [] Reads Bible or Yarsani materials [] There are Spiritual issues to be addressed Head Control Clerk Interventions [] Prayer [] Active listening [] Non-anxious presence [] Spiritual/emotional support [] Crisis/trauma care [] Spiritual counseling [] Bereavement support [] Provided bereavement packet [] Provided Bible/devotional materials [] Provided toy/stuffed animal, coloring book to patient or family member [] Provided Communion [] Anointing/[place] [] Salvation [] Completed spiritual assessment [] Other: Impact on Illness or Injury [] Angry [] Fearful [] Anxious [] Often cries [] Exhaustion [] Unable to work [] Unable to attend pentecostalism [] Unable to walk/stand [] Unable to read [] Unable to drive [] Unable to eat/drink [] Unable to sleep [] Unable to be with family [] Patient intubated [] Other: Summary Time spent with patient
[2022-12-22] MEDS: predniSONE 5 mg Tablet 10 MG PO (09:58)
[2022-12-22] MEDS: isosorbide mononitrate ER 30 mg Tablet PO (09:58)
[2022-12-22] MEDS: hyDRALAzine 25 mg Tablet PO ×3 (09:58→21:04)
[2022-12-22] MEDS: baclofen 10 mg Tablet PO ×2 (09:58→21:04)
[2022-12-22] MEDS: magnesium lactate 84 mg Tablet PO ×2 (09:58→17:24)
[2022-12-22] MEDS: bumetanide 1 mg Tablet 2 MG PO ×2 (09:59→17:24)
[2022-12-22] MEDS: docusate sodium 100 mg Capsule PO ×2 (10:00→17:24)
[2022-12-22] MEDS: oxybutynin chloride XL 5 MG TABLET PO (10:00)
[2022-12-22] MEDS: pantoprazole DR 40 mg Tablet PO (10:00)
[2022-12-22] MEDS: levothyroxine 137 mcg Tablet PO (10:00)
[2022-12-22] MEDS: potassium chloride ER 20 mEq Tablet PO ×2 (10:00→17:24)
[2022-12-22] MEDS: acetaminophen 500 mg Tablet 1000 MG PO ×2 (10:01→15:42)
[2022-12-22] MEDS: amiodarone 200 mg Tablet PO (10:01)
[2022-12-22] MEDS: carvedilol 25 mg Tablet PO ×2 (10:07→21:04)
--- NOTE | 2022-12-22 10:08 | PC.PHAR ---
pt states he takes care of his own medications-pt states the dr changed his isosorbide mono er back to 30mg hs ext shows last filled er 60mg daily on 10/14/22 90d/s-pt states he is taking prednisone 5mg takes 2 tabs 10mg qam [facility] last filled 5mg daily 10/14/22 90d/s-pt states he takes lyrica 50mg qam [facility] last filled 50mg bid on 11/23/22 30d/s-
[2022-12-22] MEDS: apixaban 5 mg Tablet PO (10:10)
[2022-12-22] MEDS: artificial tears Op Soln 15 mL Btl 1 DROP EYE-BOTH (10:14)
--- NOTE | 2022-12-22 10:42 | PM.PN ---
Subjective Subjective: Patient reports significant back pain at surgical site. On hydromorphone which he is currently tolerating. He has a history of intolerance to several other opiates. Blood pressure elevated, although improved from prior. Discussed management and he is in agreement. Planning of therapy eval today. Medications: Reviewed: Yes Vitals/I&O/Wt Last Vital Signs Temp 98.6 F 12/22/22 07:12 Pulse 76 12/22/22 08:00 Resp 18 12/22/22 08:55 BP 160/80 12/22/22 07:12 Pulse Ox 98 12/22/22 08:55 O2 Del Method Nasal Cannula 12/22/22 08:00 O2 Flow Rate 1 12/22/22 08:00 12/21/22 12/22/22 12/22/22 22:59 06:59 14:59 Intake Total 530 / 2380 863.5 / 3243.5 480 / 480 Output Total 1100 / 1940 200 / 2140 450 / 450 Balance -570 / 440 663.5 / 1103.5 30 / 30 Weight last 48 hrs Weight 106.594 kg Physical Exam Narrative: General: Patient is awake and alert. Slightly anxious but very pleasant. Head: Normocephalic. Scalp irritation. EOM intact. Neck: No JVD. Cardiovascular: RRR. No gallops. No murmurs. Bilateral lower extremity edema. Lungs: Breath sounds are slightly diminished, no use of accessory muscles, no crackles or wheezes. Skin: No jaundice. No rashes. Abdomen: Normal bowel sounds, abdomen soft and nontender. Back: Surgical bandage in thoracic region. Hemovac w/ SS fluid. Genito Urinary: Velazquez Extremities: No cyanosis or clubbing. Musculoskeletal: No erythematous joints. Neurological: Moves all 4 extremities. No myoclonus. Urinary Catheter Management: Velazquez: Cath Placed During This Visit: yes Reason for Continuing Indwelling Catheter: Perioperative Use in Selected Surgeries Urinary Catheter Date of Insertion: 12/21/22 Urinary Catheter Time of Insertion: 07:30 Data 12/22/22 05:45 12/22/22 05:45 A&P Assessment and plan (1) S/P laminectomy with spinal fusion: POD #1 Pain control Bowel regimen Neurochecks Therapy Start scheduled Tylenol CM consult, he will requires postacute care Further management per primary (2) HTN (hypertension): Blood pressure is labile, but overall suboptimal control (3) Anemia: Acute on chronic, component of acute blood loss anemia 2/2 surgery Holding anticoagulation until blood count normalizes (4) CHF (congestive heart failure), NYHA class III: Chronic heart failure with reduced ejection fraction Discontinue IV fluids Strict I&Os Dailiy weights Continue beta brigida and nitrate Continue Bumex w/ K supplementation (5) Seronegative rheumatoid arthritis: On chronic prednisone and leflunomide producing drug indced immunosuppression (6) High risk medication use: On chronic steroids, leflunomide, and apixaban Raises risk for morbidity and mortability (7) Atrial fibrillation: Hold apixaban for now, reassess on Wednesday Continue home amiodarone Continue home Coreg for rate control Attestations Medical Necessity Statement*: Per Primary Coding Level of Care Code Acute Code for Chg Fwd Diagnoses S/P laminectomy with spinal fusion Z98.1 HTN (hypertension) I10 Anemia D64.9 CHF (congestive heart failure), NYHA class III I50.9 Seronegative rheumatoid arthritis M06.00 High risk medication use Z79.899 Atrial fibrillation I48.91
[2022-12-22] MEDS: liothyronine 5 mcg Tablet 10 MCG PO (11:34)
[2022-12-22] MEDS: pregabalin 50 mg Capsule PO (11:34)
[2022-12-22] MEDS: HYDROmorphone 1 mg/mL INJ 1 mL 0.5 MG IVP ×2 (11:35→21:24)
[2022-12-22] MEDS: sennosides 8.6 mg Tablet PO (17:24)
[2022-12-22] MEDS: alum-mag-hydroxide-sime 30 mL UDC PO (17:30)
[2022-12-22] MEDS: atorvastatin 40 mg Tablet PO (21:04)
[2022-12-22] MEDS: diazePAM 5 mg Tablet PO (21:13)
[2022-12-23] VITALS (17 sets, daily range): BP systolic 101–154; BP diastolic 67–75; PULSE 53–66; RESP 15–18; TEMP 36.3–37; O2SAT 94–98
[2022-12-23] MEDS: trazodone 50 mg Tablet PO ×2 (00:13→22:16)
[2022-12-23] MEDS: acetaminophen 500 mg Tablet 1000 MG PO ×3 (00:13→17:14)
[2022-12-23] MEDS: ketorolac 30 mg/mL INJ IVP ×2 (01:28→22:56)
[2022-12-23 05:56] LABS: Basophils % 0.1 %; Eosinophils % 0.1 %; Hematocrit 24.8 % (37-53); Lymphocytes # 0.5 10^3/uL (0.8-4.8); Lymphocytes % 7.6 %; Mean Corpuscular Hemoglobin 27.2 pg (27-33); Mean Corpuscular Volume 87.6 fl (82-101); Monocytes # 0.9 10^3/uL (0.2-0.9); Monocytes % 12.8 %; Neutrophils # 5.62 10^3/uL (1.8-7.7); Neutrophils % 78.8 %; Nucleated Red Blood Cells % 0 %; Platelet Count 174 10^3/cmm (157-399); Red Blood Count 2.83 10^6/uL (3.85-5.65); Red Cell Distribution Width 16.9 % (12.1-15.1); White Blood Count 7.13 10^3/uL (3.29-11.43)
[2022-12-23 06:12] LABS: Albumin Level 3.1 g/dL (3.5-5.2); Anion Gap 12.3 (5-19); Blood Urea Nitrogen 25 mg/dL (8-23); Calcium 8.4 mg/dL (8.5-10.5); Carbon Dioxide 27 mmol/L (22-29); Chloride 103 mmol/L (98-107); Glucose 97 mg/dL (65-115); Magnesium 2.1 mg/dL (1.7-2.3); Phosphorus 4.1 mg/dL (2.5-4.5); Potassium 4.3 mmol/L (3.5-5.1); Sodium 138 mmol/L (136-145)
--- NOTE | 2022-12-23 06:35 | P.PN_ITS ---
Subjective Subjective: POD 2 Patient resting comfortably. Reports back pain. Patient does not want his Velazquez catheter removed. Awaiting social media analyst for placement. Denies any dizziness lightheadedness. Denies any chest pain or shortness of breath. Reports his left eye is improving. Vitals/I&O/Wt Last Vital Signs Temp 98.6 F 12/23/22 05:04 Pulse 62 12/23/22 05:04 Resp 18 12/23/22 05:04 BP 127/70 12/23/22 05:04 Pulse Ox 95 12/23/22 05:04 O2 Del Method Room Air 12/22/22 20:00 O2 Flow Rate 1 12/22/22 08:00 12/22/22 12/22/22 12/23/22 14:59 22:59 06:59 Intake Total 1633.5 / 1633.5 720 / 2353.5 120 / 2473.5 Output Total 750 / 750 400 / 1150 2100 / 3250 Balance 883.5 / 883.5 320 / 1203.5 -1980 / -776.5 Physical Exam Narrative: Patient presents alert and oriented x3 with a good general appearance normal mood and affect. Normal coordination normal stability. Mild tenderness around the incisional site with the incision appear to be clean and dry with Hemovac intact. No signs of erythema or drainage. No signs of infection. Patient denies any fevers or chills. 4/5 motor strength both lower extremities with negative straight leg raise bilaterally. Calves are supple no medial thigh tenderness. Pulses are 2+ at the dorsalis pedis and posterior tibial region. Good capillary refill throughout normal sensation light touch both lower extremities. Urinary Catheter Management: Velazquez: Cath Placed During This Visit: yes Reason for Continuing Indwelling Catheter: Acute Urinary Retention or Obstruction Urinary Catheter Date of Insertion: 12/21/22 Urinary Catheter Time of Insertion: 07:30 Data 12/23/22 04:58 12/23/22 04:58 A&P Assessment and plan (1) Acute blood loss as cause of postoperative anemia: Encourage physical therapy to work with mobilization. Up with a walker. Discontinue Hemovac drain after physical therapy visit please discontinue Velazquez catheter. Patient does not appear symptomatic although his hemoglobin is 7.7. We will allow defer to the hospitalist team as to whether or not we transfuse a unit of blood. medical staff services manager to work with placement ready for transfer when medically stable and placement arranged. Dressing change with [employer]. Patient is high risk of bleeding please continue mechanical SCDs for DVT prophylaxis. Continue incentive spirometer for pulmonary toilet. (2) S/P spinal fusion: Attestations Medical Necessity Statement*: Awaiting placement Coding Level of Care Code Acute Code for Chg Fwd Diagnoses Acute blood loss as cause of postoperative anemia D62 S/P spinal fusion Z98.1
[2022-12-23] MEDS: docusate sodium 100 mg Capsule PO ×2 (08:43→17:14)
[2022-12-23] MEDS: pregabalin 50 mg Capsule PO (08:43)
[2022-12-23] MEDS: oxybutynin chloride XL 5 MG TABLET PO (08:43)
[2022-12-23] MEDS: amiodarone 200 mg Tablet PO (08:43)
[2022-12-23] MEDS: potassium chloride ER 20 mEq Tablet PO ×2 (08:43→17:14)
[2022-12-23] MEDS: carvedilol 25 mg Tablet PO ×2 (08:43→20:43)
[2022-12-23] MEDS: bumetanide 1 mg Tablet 2 MG PO ×2 (08:43→17:14)
[2022-12-23] MEDS: magnesium lactate 84 mg Tablet PO ×2 (08:43→17:14)
[2022-12-23] MEDS: predniSONE 5 mg Tablet 10 MG PO (08:43)
[2022-12-23] MEDS: levothyroxine 137 mcg Tablet PO (08:43)
[2022-12-23] MEDS: baclofen 10 mg Tablet PO ×2 (08:43→20:43)
[2022-12-23] MEDS: liothyronine 5 mcg Tablet 10 MCG PO (08:43)
[2022-12-23] MEDS: isosorbide mononitrate ER 30 mg Tablet PO (08:44)
[2022-12-23] MEDS: pantoprazole DR 40 mg Tablet PO (08:44)
[2022-12-23] MEDS: sennosides 8.6 mg Tablet 17.2 MG PO ×2 (08:44→17:14)
[2022-12-23] MEDS: hyDRALAzine 25 mg Tablet PO ×3 (09:00→20:43)
--- NOTE | 2022-12-23 11:16 | PM.PN ---
Subjective Subjective: Patient reports some postop thoracic pain. He is satisfied with his current pain regiment. He has not had a bowel movement but does not feel overly constipated. He is agreeable to continue current regiment with close monitoring. He may need escalation with time. Discussed his blood loss anemia with hemoglobin less than 8. He has indications for transfusion and he is agreeable. Urinary catheter removed. Per report plan to remove Hemovac today. Plan for work with therapy today. Denies fevers or chills. Denies nausea or emesis. Medications: Reviewed: Yes Vitals/I&O/Wt Last Vital Signs Temp 97.9 F 12/23/22 07:16 Pulse 53 L 12/23/22 07:16 Resp 18 12/23/22 08:44 BP 120/69 12/23/22 07:16 Pulse Ox 95 12/23/22 08:44 O2 Del Method Room Air 12/23/22 07:16 O2 Flow Rate 1 12/22/22 08:00 12/22/22 12/23/22 12/23/22 22:59 06:59 14:59 Intake Total 720 / 2353.5 120 / 2473.5 480 / 480 Output Total 400 / 1150 2100 / 3250 500 / 500 Balance 320 / 1203.5 -1980 / -776.5 -20 / -20 Physical Exam Narrative: General: Patient is awake. In bed. Very pleasant. Head: Normocephalic. Scalp irritation. EOM intact. Neck: No JVD. Cardiovascular: RRR. No gallops. No murmurs. Trace lower extremity edema, improved from yesterday's exam. Now wearing compression zipper socks. Lungs: Breath sounds are slightly diminished, no use of accessory muscles, no crackles or wheezes. Skin: No jaundice. No rashes. Abdomen: Normal bowel sounds, abdomen soft and nontender. Back: Surgical site not examined. Extremities: No cyanosis or clubbing. Musculoskeletal: No erythematous joints. Neurological: Moves all 4 extremities. No myoclonus. Urinary Catheter Management: Velazquez: Cath Placed During This Visit: yes, but has since been removed by the nurse Reason for Continuing Indwelling Catheter: Decision to DC Catheter Urinary Catheter Date of Insertion: 12/21/22 Urinary Catheter Time of Insertion: 07:30 Date Urinary Catheter Removed: 12/23/22 Time Urinary Catheter Discontinued: 07:30 Data 12/23/22 04:58 12/23/22 04:58 A&P Assessment and plan (1) S/P laminectomy with spinal fusion: POD #2 Pain control, tolerating hydromorphone, monitor for side effects Continue scheduled Tylenol for now Continue bowel regimen, may need adjusted soon Neurochecks Therapy He will need postacute care, d/w CM (2) HTN (hypertension): BP has improved Continue current home meds Ensure adequate analgesia Monitor (3) Anemia: Acute on chronic, component of acute blood loss anemia 2/2 surgery HGB<8, proceed w/ pRBC transfusion x1 Holding therapeutic anticoagulation for an additional day, likely restart (4) CHF (congestive heart failure), NYHA class III: Chronic heart failure with reduced ejection fraction Currently compensated, blood transfusion puts him at risk for decompensation Strict I&Os Daily weights Continue beta brigida and nitrate Continue Bumex w/ K supplementation (5) Seronegative rheumatoid arthritis: On chronic prednisone and leflunomide producing drug induced immunosuppression (6) High risk medication use: On chronic steroids, leflunomide, and apixaban Raises risk for morbidity and mortability Not yet ready for discharge (7) Atrial fibrillation: Hold apixaban for another day, reassess on Continue home amiodarone Continue home Coreg for rate control, HR low this morning, monitor closely Attestations Medical Necessity Statement*: per primary Coding Level of Care Code Acute Code for Chg Fwd Diagnoses S/P laminectomy with spinal fusion Z98.1 HTN (hypertension) I10 Anemia D64.9 CHF (congestive heart failure), NYHA class III I50.9 Seronegative rheumatoid arthritis M06.00 High risk medication use Z79.899 Atrial fibrillation I48.91
[2022-12-23] MEDS: atorvastatin 40 mg Tablet PO (20:43)
[2022-12-23] MEDS: diazePAM 5 mg Tablet PO (20:44)
[2022-12-24] VITALS (7 sets, daily range): BP systolic 114–146; BP diastolic 62–79; PULSE 50–63; RESP 17–18; TEMP 36.3–36.5; O2SAT 94–97
[2022-12-24] MEDS: acetaminophen 500 mg Tablet 1000 MG PO ×2 (00:16→08:21)
[2022-12-24 05:14] LABS: Basophils % 0.3 %; Eosinophils # 0.1 10^3/uL (0.0-0.8); Eosinophils % 0.7 %; Hematocrit 27.7 % (37-53); Lymphocytes # 0.6 10^3/uL (0.8-4.8); Lymphocytes % 9.1 %; Mean Corpuscular Volume 86.8 fl (82-101); Monocytes # 0.9 10^3/uL (0.2-0.9); Monocytes % 12.8 %; Neutrophils # 5.21 10^3/uL (1.8-7.7); Neutrophils % 76.4 %; Nucleated Red Blood Cells % 0 %; Platelet Count 169 10^3/cmm (157-399); Red Blood Count 3.19 10^6/uL (3.85-5.65); Red Cell Distribution Width 16.6 % (12.1-15.1); White Blood Count 6.82 10^3/uL (3.29-11.43)
[2022-12-24 05:36] LABS: Albumin Level 3.1 g/dL (3.5-5.2); Anion Gap 12.9 (5-19); Blood Urea Nitrogen 30 mg/dL (8-23); Calcium 8.2 mg/dL (8.5-10.5); Carbon Dioxide 26 mmol/L (22-29); Chloride 104 mmol/L (98-107); Glucose 113 mg/dL (65-115); Phosphorus 4.2 mg/dL (2.5-4.5); Potassium 3.9 mmol/L (3.5-5.1); Sodium 139 mmol/L (136-145)
--- NOTE | 2022-12-24 07:21 | PM.PN ---
Subjective Subjective: POD 3 Patient resting comfortably. She was up walking yesterday denies any chest pain, shortness of breath, headaches. Vitals/I&O/Wt Last Vital Signs Temp 97.4 F L 12/24/22 04:49 Pulse 50 L 12/24/22 05:34 Resp 18 12/24/22 04:49 BP 137/79 12/24/22 04:49 Pulse Ox 97 12/24/22 04:49 O2 Del Method Room Air 12/23/22 16:44 O2 Flow Rate 1 12/22/22 08:00 12/23/22 12/24/22 12/24/22 22:59 06:59 14:59 Intake Total 360 / 1370 480 / 1850 Output Total 700 / 1200 800 / 2000 Balance -340 / 170 -320 / -150 Physical Exam Narrative: Patient presents alert and oriented x3 with a good general appearance normal mood and affect.? Normal coordination normal stability.? Mild tenderness around the incisional site with the incision appear to be clean and dry.? No signs of erythema or drainage.? No signs of infection.? Patient denies any fevers or chills.? 4/5 motor strength both lower extremities with negative straight leg raise bilaterally.? Calves are supple no medial thigh tenderness.? Pulses are 2+ at the dorsalis pedis and posterior tibial region.? Good capillary refill throughout normal sensation light touch both lower extremities. Urinary Catheter Management: Velazquez: Cath Placed During This Visit: yes, but has since been removed by the nurse Reason for Continuing Indwelling Catheter: Decision to DC Catheter Urinary Catheter Date of Insertion: 12/21/22 Urinary Catheter Time of Insertion: 07:30 Date Urinary Catheter Removed: 12/23/22 Time Urinary Catheter Discontinued: 07:30 Data 12/24/22 04:29 12/24/22 04:29 A&P Assessment and plan (1) S/P spinal fusion: Hemoglobin is improving. Continue physical therapy work with mobilization. Transfer to [facility]. Follow-up in the office in 1 week's time for wound check with Dr. Delarosa. Continue incentive spirometry for pulmonary toilet. (2) Acute blood loss as cause of postoperative anemia: Attestations Medical Necessity Statement*: Discharge to [facility] today. Coding Level of Care Code Acute Code for Chg Fwd Diagnoses S/P spinal fusion Z98.1 Acute blood loss as cause of postoperative anemia D62
[2022-12-24] MEDS: magnesium lactate 84 mg Tablet PO (08:21)
[2022-12-24] MEDS: liothyronine 5 mcg Tablet 10 MCG PO (08:21)
[2022-12-24] MEDS: levothyroxine 137 mcg Tablet PO (08:21)
[2022-12-24] MEDS: pregabalin 50 mg Capsule PO (08:21)
[2022-12-24] MEDS: baclofen 10 mg Tablet PO (08:21)
[2022-12-24] MEDS: amiodarone 200 mg Tablet PO (08:22)
[2022-12-24] MEDS: docusate sodium 100 mg Capsule PO (08:22)
[2022-12-24] MEDS: sennosides 8.6 mg Tablet 17.2 MG PO (08:22)
[2022-12-24] MEDS: hyDRALAzine 25 mg Tablet PO (08:22)
[2022-12-24] MEDS: pantoprazole DR 40 mg Tablet PO (08:22)
[2022-12-24] MEDS: isosorbide mononitrate ER 30 mg Tablet PO (08:22)
[2022-12-24] MEDS: bumetanide 1 mg Tablet 2 MG PO (08:22)
[2022-12-24] MEDS: carvedilol 25 mg Tablet PO (08:22)
[2022-12-24] MEDS: oxybutynin chloride XL 5 MG TABLET PO (08:22)
[2022-12-24] MEDS: potassium chloride ER 20 mEq Tablet PO (08:22)
[2022-12-24] MEDS: predniSONE 5 mg Tablet 10 MG PO (08:22)
[2022-12-24] MEDS: apixaban 5 mg Tablet PO (08:24)
[2022-12-24 08:43] LABS: SARS Covid-2 Antigen negative (Negative)
[2022-12-24 10:31] LABS: Add Urine Microscopic? NO; Charge for UA Resulting for Rev
[2022-12-24 10:46] LABS: Urine Appearance Clear (CLEAR); Urine Color Yellow (Yellow); pH Urine 5 (5-7)
[2022-12-24 10:47] LABS: Bilirubin Urine Neg (Negative); Blood Urine Neg (Negative); Glucose Urine UA Norm (Normal); Ketones Urine Negative (Negative); Leukocyte Esterase Urine Negative (Negative); Nitrate Urine Negative (Negative); Protein Urine Neg (Negative); Urobilinogen Urine Norm (Negative)
--- NOTE | 2022-12-24 11:21 | P.DS_ITS ---
Discharge Providers Date of Admission: 12/21/22 10:00 Date of Discharge: December 24, 2022 Attending Provider at Admission: Enrike Delarosa DO Attending Provider at Discharge: Enrike Delarosa DO Consults: Internal Medicine Primary Care Provider: Marsha Turner MD Diagnoses at Discharge Discharge Diagnosis (1) S/P spinal fusion: Status: Acute Permanent problem details: 02/2021 - T9-S1 Dr Delarosa (2) Acute blood loss as cause of postoperative anemia: Status: Acute Reason for Visit Reason for Visit: Thoracic Stenosis, revision spinal fusion Hospital Course Hospital Course Kojo Marinelli is a 77-year-old male with a past medical history significant for coronary artery disease, atrial fibrillation on anticoagulation, hyperlipidemia, hypertension, hypothyroidism, rheumatoid arthritis, chronic back pain status post multiple surgeries who presented for laminectomy and spinal fusion. Patient was admitted orthopedic surgery. He underwent surgery as noted below. Postop course was notable for acute blood loss anemia requiring transfusion 1 packed red blood cell. Patient was also found to have post-op constipation. His bowel regimen will need to be monitored and may need adjustment over time. Patient worked with therapy post procedure. He is being discharged to [facility] facility for continued therapy. Patient discharged in stable condition. Physical Exam Narrative: General: Patient is awake.? Alert. Pleasant. Head:? Normocephalic. Scalp irritation. EOM intact. Neck: No JVD. Cardiovascular: RRR. No gallops. No murmurs.? Compression socks. Mild edema in thighs. Lungs: Adequate air movement, no use of accessory muscles, no crackles or wheezes. Skin: No jaundice. No rashes. Abdomen: Normal bowel sounds, abdomen soft and nontender. Extremities: No cyanosis or clubbing. Musculoskeletal: No erythematous joints. Neurological: Moves all 4 extremities. No myoclonus. Urinary Catheter Management: Velazquez: Cath Placed During This Visit: yes, but has since been removed by the nurse Reason for Continuing Indwelling Catheter: Decision to DC Catheter Urinary Catheter Date of Insertion: 12/21/22 Urinary Catheter Time of Insertion: 07:30 Date Urinary Catheter Removed: 12/23/22 Time Urinary Catheter Discontinued: 07:30 Discharge Data Studies Completed and Pending Completed Studies During Hospitalization Category Date Time Status XR lumbar spine 2-3V* 55594 Routine Exams 12/21/22 09:50 Completed Laboratory Results WBC 6.82 10^3/uL (3.29-11.43) 12/24/22 04:29 RBC 3.19 10^6/uL (3.85-5.65) L 12/24/22 04:29 Hgb 8.60 g/dL (11.27-16.99) L 12/24/22 04:29 Hct 27.7 % (37-53) L 12/24/22 04:29 MCV 86.8 fl (82-101) 12/24/22 04:29 MCH 27.0 pg (27-33) 12/24/22 04:29 MCHC 31.0 g/dL (30-55) 12/24/22 04:29 RDW 16.6 % (12.1-15.1) H 12/24/22 04:29 Plt Count 169 10^3/cmm (157-399) 12/24/22 04:29 MPV 10.0 fL (7.4-10.4) 12/24/22 04:29 Neut % (Auto) 76.4 % 12/24/22 04:29 Lymph % (Auto) 9.1 % 12/24/22 04:29 Letcher % (Auto) 12.8 % 12/24/22 04:29 Eos % (Auto) 0.7 % 12/24/22 04:29 Baso % (Auto) 0.3 % 12/24/22 04:29 Neut # (Auto) 5.21 10^3/uL (1.8-7.7) 12/24/22 04:29 Lymph # (Auto) 0.6 10^3/uL (0.8-4.8) L 12/24/22 04:29 Letcher # (Auto) 0.9 10^3/uL (0.2-0.9) 12/24/22 04:29 Eos # (Auto) 0.1 10^3/uL (0.0-0.8) 12/24/22 04:29 Baso # (Auto) 0.0 10^3/uL (0.0-0.1) 12/24/22 04:29 Nucleated RBC % (auto) 0 % 12/24/22 04:29 Nucleated RBCs # 0.0 /100WBC 12/24/22 04:29 Sodium 139 mmol/L (136-145) 12/24/22 04:29 Potassium 3.9 mmol/L (3.5-5.1) 12/24/22 04:29 Chloride 104 mmol/L (98-107) 12/24/22 04:29 Carbon Dioxide 26 mmol/L (22-29) 12/24/22 04:29 Anion Gap 12.9 (5-19) 12/24/22 04:29 BUN 30 mg/dL (8-23) H 12/24/22 04:29 Creatinine 1.2 mg/dL (0.7-1.2) 12/24/22 04:29 GFR Calculation Not Reportable 12/24/22 04:29 Glucose 113 mg/dL (65-115) 12/24/22 04:29 Calculated Osmolality 288 mOsm/kg (285-295) 12/22/22 05:45 Calcium 8.2 mg/dL (8.5-10.5) L 12/24/22 04:29 Phosphorus 4.2 mg/dL (2.5-4.5) 12/24/22 04:29 Magnesium 2.1 mg/dL (1.7-2.3) 12/23/22 04:58 Iron 47 ug/dL (59-158) L 12/22/22 05:45 TIBC 259 mcg/dl 12/22/22 05:45 % Saturation 18.1 % (20-50) L 12/22/22 05:45 Unsat Iron Binding 212 ug/dL (112-347) 12/22/22 05:45 Albumin 3.1 g/dL (3.5-5.2) L 12/24/22 04:29 Urine Color Yellow (Yellow) 12/24/22 10:14 Urine Appearance Clear (CLEAR) 12/24/22 10:14 Urine pH 5 (5-7) 12/24/22 10:14 Ur Specific [place] 1.020 (1.005-1.030) 12/24/22 10:14 Urine Protein Neg (Negative) 12/24/22 10:14 Urine Glucose (UA) Norm (Normal) 12/24/22 10:14 Urine Ketones Negative (Negative) 12/24/22 10:14 Urine Blood Neg (Negative) 12/24/22 10:14 Urine Nitrate Negative (Negative) 12/24/22 10:14 Urine Bilirubin Neg (Negative) 12/24/22 10:14 Urine Urobilinogen Norm mg/dL (Negative) 12/24/22 10:14 Ur Leukocyte Esterase Negative (Negative) 12/24/22 10:14 SARS-CoV-2 Ag (Rapid) negative (Negative) 12/24/22 08:20 Blood Type A Positive 12/21/22 06:40 Rho(D) Type Positive 12/21/22 06:40 Antibody Screen Negative 12/21/22 06:40 Crossmatch See Detail 12/21/22 06:40 Procedures Performed 1. T6-T9 PSF 2.? T6-T9 instrumentation 3.? T8/9 laminectomy with partial facetectomy 4. hardware removal from spine 5. allograft Vitals Last Vital Signs Temp 97.6 F 12/24/22 07:50 Pulse 61 12/24/22 07:50 Resp 18 12/24/22 07:50 BP 146/79 12/24/22 07:50 Pulse Ox 97 12/24/22 07:50 O2 Del Method Room Air 12/24/22 07:50 O2 Flow Rate 1 12/22/22 08:00 Discharge Plan Discharge Patient Disposition: Xfer SNF Condition: Stable Prescriptions: New senna 8.6 mg Tablet 17.2 mg PO BID 30 Days Qty: 120 0RF trazodone 50 mg Tablet 50 mg PO BEDTIME PRN (Reason: Insomnia) 30 Days Qty: 30 0RF hydromorphone 4 mg Tablet 2 mg PO Q4H PRN (Reason: Moderate to severe pain 1st) 5 Days Qty: 30 0RF Metamucil 3.4 gram/5.4 gram powder 1 tbsp PO DAILY Qty: 660 0RF Rx Instructions: mix into at least 8 oz of water or juice before administering bisacodyl 5 mg tablet 5 mg PO DAILY PRN (Reason: constipation) Qty: 30 0RF Continued hydrocortisone 2.5 % cream 1 applic TOPICAL BID PRN (Reason: Itching) mometasone 0.1 % solution 1 applic topical DAILY PRN (Reason: skin irritation) Qty: 60 3RF Rx Instructions: apply a few drops to scalp daily as needed (DME) MARK BRACE See Rx Instructions .Route .MEDSUPPLY Qty: 1 0RF Rx Instructions: As directed carvedilol 25 mg tablet 25 mg PO BID Qty: 180 3RF leflunomide [Arava] 20 mg tablet 20 mg PO DAILY Qty: 90 1RF Rx Instructions: 340 b pricing please (DME) Modification to AFO Brace to the left See Rx Instructions .Route .MEDSUPPLY Qty: 1 0RF Rx Instructions: As directed by [facility] diclofenac sodium 1 % gel 4 g TOPICAL QID PRN (Reason: Pain) Qty: 100 2RF ketoconazole 2 % cream 1 applic topical BID PRN (Reason: Skin Irritation) Rx Instructions: Apply 1-2 times daily on red, scaly areas of face baclofen 10 mg tablet 10 mg PO BID Qty: 14 0RF atorvastatin 40 mg tablet 40 mg PO BEDTIME Qty: 90 3RF acetaminophen 500 mg Capsule 1,000 mg PO Q4H PRN (Reason: Pain) levothyroxine [Synthroid] 137 mcg tablet 137 mcg PO QAM Rx Instructions: PT STATES THIS MEDICATION MUST BE SYNTHROID, NOT LEVOTHYROXINE. liothyronine 5 mcg tablet 10 mcg PO QAM hydralazine 25 mg Tablet 25 mg PO TID 30 Days Qty: 90 1RF magnesium L-lactate [Magtab] 84 mg Tablet Extended Release 84 mg PO BID 30 Days Qty: 60 1RF Eliquis 5 mg Tablet 5 mg PO BID@0900,2100 Qty: 60 2RF amiodarone [Pacerone] 200 mg tablet 200 mg PO DAILY prednisone 5 mg tablet 10 mg PO QAM oxybutynin chloride 5 mg tablet extended release 24hr 5 mg PO QAM pregabalin 50 mg capsule 50 mg PO QAM bumetanide 2 mg tablet 2 mg PO BID isosorbide mononitrate 30 mg Tablet Extended Release 24 Hr 30 mg PO BEDTIME potassium chloride 10 mEq tablet extended release 20 meq PO BID albuterol sulfate 2.5 mg /3 mL (0.083 %) solution for nebulization 2.5 mg inhalation Q6H PRN (Reason: Shortness Of Breath) omeprazole 40 mg Capsule,Delayed Release(Dr/Ec) 40 mg PO QAM calcium carbonate 500 mg calcium (1,250 mg) Tablet 1,000 mg PO DAILY Nitrostat 0.4 mg Tablet, Sublingual 0.4 mg SUBLINGUAL Q5M PRN (Reason: Chest Pain) Rx Instructions: do not exceed 3 doses per episode albuterol sulfate 90 mcg/actuation HFA aerosol inhaler 1 - 2 puff INHALATION Q4H PRN (Reason: Wheezing) Discharge Orders: Discharge Order (Routine); Ordered 12/24/22 Ordered By: Cortes Eller Referrals: Marsha Turner MD [Primary Care Provider] - 2 weeks Enrike Delarosa DO [Physician] - 01/05/23 9:15 am Discharge Diet: Advance as tolerated, Usual diet and Cardiac Discharge Activity: Limit activity as instructed and As per PT/OT instructions Patient Instructions: Opioid Safety Activity Restrictions/Additional Instructions: Thank you for choosing [facility] for your care! The following is a list of instructions, from your provider, to follow upon your discharge to ensure you have the optimal recovery from your recent injury or surgery. Follow-up care is a rizzo part of your treatment and safety. Be sure to make and go to all appointments and call your doctor if you are having problems. If you do not already have a follow-up appointment made, call Dr. Delarosa's] office in the next 1-3 days to make follow up appointment for [1-2] week with Dr Delarosa at [phone]. It is also a good idea to know your test results and keep a list of the medicines you take. Medications will be prescribed for you at your provider's discretion. These medications are to be used as instructed; if they are taken more often that prescribed they will not be refilled early and in most cases will not be refilled at all. > When a refill is needed, you should contact sameera ramirez 2-3 business days before your prescription runs out. Medications will NOT be refilled by area operations director providers after hours! > Many pain medications contain Tylenol (Acetaminophen). Do not consume more than 4,000 mg of Tylenol per day in total with any combination of medications. > Pain medications can cause constipation. Please use an over the counter stool softener as directed, while taking pain medications. Consult your local pharmacist with questions or recommendations on stool softeners. If constipation persists, contact our office or your primary care provider. > While under our care, you are not to receive pain medications or other controlled substances from any other provider unless our office is notified and approves. Any attempts to do so will result in refusal to prescribe any further pain medications and possible dismissal from our practice. ? Walking is essential for the healing process after surgery. We would like you to slowly advance your walking. This should be done on relatively flat clear ground (inside or out) or can be done on a treadmill. Remember this goal does not have to happen all at once, slowly increase your distance and duration. This can be broken into more more than one walk per day as tolerated. Patients who walk as directed after surgery rarely require Physical Therapy. In the unlikely event this issue arises your provider will direct hospital staff to make the appropriate arrangements. ? No lifting over 5 pounds {a gallon of milk) or bending/twisting until further notice. Each of these activities places an unnecessary amount of stress onto the body and can impede the delicate healing process. > Instead of bending at the waist, keep your back straight and bend at t he knees. > Instead of twisting your torso, keep your back straight and turn your entire body with your feet. ? You may sleep in any position which makes you comfortable. Many patients find comfort sleeping in a reclining chair. It is not abnormal to have difficulty sleeping for the first several weeks following your surgery. We recommend trying Benadry! or Tylenol PM as directed to help with your sleeping difficulties. Both medications are over the counter and available without prescription. ? NO SMOKING!!! Smoking dramatically increases the probability of developing postoperative wound infections. ? Common complaints after lumbar and/or thoracic spine surgery include, but are not limited to: numbness and/or tingling in the legs, pain around the incision and surrounding tissues, muscle spasms, or stiffness of the middle to low back. Contact our office if these symptoms persist or if an acute change occurs. ? No driving for the first 3-5days, and not while taking narcotics until seen at your follow-up appointment and cleared. There are no restrictions for riding on short trips, however if you take a longer trip, arrangements should be made to make regular stops to get out of the vehicle and stretch . ? Swelling is an unfortunate event that will take place with any surgery and is the primary source of your postoperative discomfort. While walking and regular approved activities helps control inflammation, there are additional steps you can take to minimize swelling. > Place ice over the surgical site and surrounding tissue for twenty minutes, followed by applying a low/medium heat (heating pad) for an additional twenty minutes every 1-2 hours as needed for painrelief. > You may use of over the counter anti-inflammatory medications (Ibuprofen, Motrin, Aleve, Advil, etc) as directed on the package label. These types of medicines will significantly reduce the amount of discomfort you experience after surgery from swelling. It should be noted that if you have and allergy to any of these medications, or a history of ulcers or kidney disease you should consult you primary care provider prior to starting these medi cations. Discharge Attestations Time Spent in Discharge Care*: greater than 30 min Status at Discharge: Overall status at discharge: patient is progressing back to baseline Quality Metrics Clinical Quality Measures [ No reported AMI, CVA or VTE this stay] Coding Level of Care Code Acute Code for Chg Fwd Diagnoses S/P spinal fusion Z98.1 Acute blood loss as cause of postoperative anemia D62
[2022-12-24] MEDS: diazePAM 5 mg Tablet PO (12:50)
--- NOTE | 2022-12-24 13:12 | PC.NURSE ---
Report called to abril at [facility].
--- NOTE | 2022-12-24 13:43 | PC.NURSE ---
[facility] arrives to chart picker patient. Patient to [facility] van via wheelchair with all belongings. also at side.
== END 2022-12-24 13:43 | disposition skilled nursing facility (03) | DRG 460 ==
LOC: MEDSURG 14:53
PROVIDERS: Hospitalist; Internal Medicine; Admitting Provider Orthopaedic Surgery; PCP Internal Medicine; Visit Provider Orthopaedic Surgery
PROC: 0RG70KJ Fusion of 2 to 7 Thoracic Vertebral Joints with Nonautologous Tissue Substitute, Posterior Approach, Anterior Column, Open Approach (ICD-10-PCS; principal; 2022-12-21 07:00)
PROC: 0RG70KJ Fusion of 2 to 7 Thoracic Vertebral Joints with Nonautologous Tissue Substitute, Posterior Approach, Anterior Column, Open Approach (ICD-10-PCS; CPT 63003; 2022-12-21 07:00)
DX: M48.04 Spinal stenosis, thoracic region (principal); T84.226A Displacement of internal fixation device of vertebrae, initial encounter; I50.22 Chronic systolic (congestive) heart failure; D62 Acute posthemorrhagic anemia; Y79.8 Miscellaneous orthopedic devices associated with adverse incidents, not elsewhere classified; M51.35 Other intervertebral disc degeneration, thoracolumbar region; I48.91 Unspecified atrial fibrillation; G89.29 Other chronic pain; Z91.81 History of falling; J44.9 Chronic obstructive pulmonary disease, unspecified; Z86.16 Personal history of COVID-19; Z85.46 Personal history of malignant neoplasm of prostate; Z86.73 Personal history of transient ischemic attack (TIA), and cerebral infarction without residual deficits; I11.0 Hypertensive heart disease with heart failure; E78.5 Hyperlipidemia, unspecified; E03.9 Hypothyroidism, unspecified; G47.33 Obstructive sleep apnea (adult) (pediatric); M06.00 Rheumatoid arthritis without rheumatoid factor, unspecified site; Z96.653 Presence of artificial knee joint, bilateral; Z96.643 Presence of artificial hip joint, bilateral; Z98.1 Arthrodesis status; I25.2 Old myocardial infarction; E66.01 Morbid (severe) obesity due to excess calories; Z68.31 Body mass index [BMI] 31.0-31.9, adult; Z11.52 Encounter for screening for COVID-19; M48.062 Spinal stenosis, lumbar region with neurogenic claudication; K59.09 Other constipation; D63.8 Anemia in other chronic diseases classified elsewhere; Z99.89 Dependence on other enabling machines and devices; Z79.01 Long term (current) use of anticoagulants; Z79.52 Long term (current) use of systemic steroids
CPT/HCPCS: 36415; 36430; 51702; 72100; 76000; 80048; 80069; 81003; 83540; 83550; 83735; 84100; 85025; 86850; 86900; 86920; 87426; 97116; 97161; 97530; C1713; J0360; J0690; J1100; J1170; J1720; J1790; J1885; J2250; J2405; J2704; J2710; J3010; J3370; J3490; J7030; J7120; J7512; P9040; P9045

== ENCOUNTER → 2022-12-30 09:40 | Outpatient (BNVA) | payer MEDICARE, OTHER, SELFPAY | PROVIDERS: PCP Internal Medicine; Visit Provider Internal Medicine Rheumatology | DX: M06.041 Rheumatoid arthritis without rheumatoid factor, right hand (principal); M06.042 Rheumatoid arthritis without rheumatoid factor, left hand; Z79.899 Other long term (current) drug therapy; Z71.89 Other specified counseling; R76.8 Other specified abnormal immunological findings in serum | CPT/HCPCS: 99214 ==

== ENCOUNTER → 2023-01-05 14:20 | Outpatient (BNVA) | payer MEDICARE, OTHER, SELFPAY | PROVIDERS: PCP Internal Medicine; Visit Provider Physician Assistant | DX: Z98.1 Arthrodesis status (principal); Z47.89 Encounter for other orthopedic aftercare | CPT/HCPCS: 72070; 72100; 99024 ==

== ENCOUNTER → 2023-01-06 13:45 | Outpatient (BNVA) | payer MEDICARE, OTHER, SELFPAY | PROVIDERS: PCP Internal Medicine; Visit Provider Nurse Practitioner Family | DX: L57.8 Other skin changes due to chronic exposure to nonionizing radiation (principal); L57.0 Actinic keratosis; L81.4 Other melanin hyperpigmentation; I73.9 Peripheral vascular disease, unspecified; L60.3 Nail dystrophy; Z85.828 Personal history of other malignant neoplasm of skin; D62 Acute posthemorrhagic anemia; E03.9 Hypothyroidism, unspecified; Z79.01 Long term (current) use of anticoagulants | CPT/HCPCS: 11721; 17004; 99213 ==

== ENCOUNTER → 2023-01-25 10:25 | Outpatient (BNVA) | payer MEDICARE, OTHER, MEDICAID, SELFPAY | PROVIDERS: PCP Internal Medicine; Visit Provider Internal Medicine Cardiovascular Disease | DX: I11.0 Hypertensive heart disease with heart failure (principal); I50.9 Heart failure, unspecified; I25.10 Atherosclerotic heart disease of native coronary artery without angina pectoris; I95.1 Orthostatic hypotension; G47.30 Sleep apnea, unspecified; I71.21 Aneurysm of the ascending aorta, without rupture; I87.2 Venous insufficiency (chronic) (peripheral) | CPT/HCPCS: 36415; 80048; 99214 ==

== ENCOUNTER → 2023-02-02 10:07 | Outpatient (BNVA) | payer MEDICARE, OTHER, MEDICAID, SELFPAY | PROVIDERS: PCP Internal Medicine; Visit Provider Physician Assistant | DX: Z98.1 Arthrodesis status (principal); Z47.89 Encounter for other orthopedic aftercare | CPT/HCPCS: 72072; 99024 ==

== ENCOUNTER 2023-02-11 08:04 | Oncology outpatient (recurring) (ONCR) | payer MEDICARE, OTHER, MEDICAID, SELFPAY ==
[2023-01-14 08:15] VITALS: BP 128/68; PULSE 71; RESP 18; TEMP 36.6
[2023-01-14] MEDS: sodium chloride 0.9% 250 ML 75 ML IV (08:31)
[2023-01-14] MEDS: acetaminophen 325 mg Tablet 650 MG PO (08:32)
[2023-01-14] MEDS: methylPREDNISolone sod succ 40 mg SDV IVP (08:32)
[2023-01-14] MEDS: diphenhydrAMINE 50 mg/mL SDV 1mL 25 MG IVP (08:37)
[2023-01-14] MEDS: abatacept 1,000 MG in sodium chloride 0.9% (100 ml) 100 ML 200 MG IV (08:48)
[2023-01-14 09:21] VITALS: BP 157/77; PULSE 58; RESP 18; TEMP 36.5; O2SAT 96
[2023-02-11] MEDS: sodium chloride 0.9% 250 ML 75 ML IV (08:40)
[2023-02-11] MEDS: methylPREDNISolone sod succ 40 mg/mL INJ IVP (08:42)
[2023-02-11] MEDS: diphenhydrAMINE 50 mg/mL SDV 1mL 25 MG IVP (08:46)
[2023-02-11] MEDS: acetaminophen 325 mg Tablet 650 MG PO (08:46)
[2023-02-11] MEDS: abatacept 1,000 MG in sodium chloride 0.9% (100 ml) 100 ML 200 MG IV (09:18)
[2023-02-11 09:55] VITALS: BP 126/68; PULSE 57; TEMP 36.6; O2SAT 94
== END 2023-02-11 23:59 | disposition home or self-care (01) ==
PROVIDERS: PCP Internal Medicine; Visit Provider Internal Medicine Rheumatology
DX: M06.042 Rheumatoid arthritis without rheumatoid factor, left hand (principal); M06.041 Rheumatoid arthritis without rheumatoid factor, right hand; I48.0 Paroxysmal atrial fibrillation; R60.0 Localized edema; E66.01 Morbid (severe) obesity due to excess calories; G47.33 Obstructive sleep apnea (adult) (pediatric); I10 Essential (primary) hypertension; E78.5 Hyperlipidemia, unspecified
CPT/HCPCS: 96365; 96375; 96413; 99214; J0129; J1200; J2920; J7050

== ENCOUNTER 2023-02-17 15:37 | Emergency (ER) | payer MEDICARE, OTHER, SELFPAY ==
[2023-02-17] VITALS (7 sets, daily range): BP systolic 148–182; BP diastolic 74–94; PULSE 64–73; RESP 16–20; TEMP 36.7; O2SAT 94–96; BMI 35.2
--- NOTE | 2023-02-17 15:53 | XR_ITS ---
WS: [id number] Portable AP upright chest, 02/17/2023 Clinical Data: CXP Comparison: Portable chest, 12/03/2022 Findings: No nodules, masses or effusions are seen. The heart is normal. The pulmonary vascularity is not increased. No pneumonia or pneumothorax is seen. The aortic arch and descending thoracic aorta s how tortuosity. There is an anterior cervical disc fusion and posterior cervical disc fusion. There i s a thoracolumbar posterior fusion. Impression: Atherosclerosis.
--- NOTE | 2023-02-17 15:57 | W.ED.CHESTPA ---
HPI - Chest Pain General: Chief Complaint: Chest Pain Stated Complaint: chest pain Time Seen by Provider: 02/17/23 15:44 History of Present Illness: 77-year-old male presents emerged department via EMS personnel secondary to chief complaint of having left anterior chest wall pain that radiated to his back and intermittent shortness of breath at the onset of his chest pain. He states his chest pain started while resting at home approximately 1 hour prior to arrival here in the emergency department. He states that his pain was initially a 6 out of 10 he states he did take 2 sublingual nitroglycerin at home as well as received a single sublingual nitroglycerin in the ambulance and had significant improvement in control of his pain to a 3 out of 10. He denies nausea, vomiting, diaphoresis dizziness or lightheaded feeling. He states he has been seen in the past by cardiology and diagnosed with atrial fibrillation. He states he is also required admission for atrial fibrillation with rapid ventricular response and was seen by Dr. Rob hartley banana ripening room supervisor 1 week ago. Review of Systems General: Reports: 10 or more systems reviewed and unremarkable except in HPI and below Card: Reports: chest pain and irregular heart rhythm PFS ED PFSH: Medical History Acquired calcaneovarus deformity of both feet Acute blood loss as cause of postoperative anemia Anemia Ascending aortic aneurysm Atrial fibrillation CAD (coronary artery disease) Carotid artery disease Cervical postlaminectomy syndrome CHF (congestive heart failure), NYHA class III EF 10/2022 43% on stress test, 50% on echo Chronic back pain Closed fracture of right patella COPD (chronic obstructive pulmonary disease) COVID-19 2020 DDD (degenerative disc disease), lumbar Degenerative disc disease, thoracic Failed back surgical syndrome Gastroparesis GERD (gastroesophageal reflux disease) H/O malignant neoplasm of skin High risk medication use prednisone and leflunomide 12/2022 History of prostate cancer History of TIA (transient ischemic attack) HTN (hypertension) Hx of cataract Hyperlipidemia Hypothyroid Lumbar stenosis with neurogenic claudication Metatarsus adductus Orthostatic hypotension FUAD (obstructive sleep apnea) Osteoarthritis, generalized Positive CORBY (antinuclear antibody) EDUARDO was negative in 2013 Radiation cystitis Renal cyst Seroma, postoperative Seronegative rheumatoid arthritis Spinal stenosis, thoracic Urgency incontinence Venous insufficiency of both lower extremities Surgical History H/O colonoscopy 2011 H/O esophagogastroduodenoscopy 2012 H/O neck surgery x 2 History of abdominal aortic aneurysm (AAA) repair History of back surgery multiple procedures (>10) History of cardiac cath ~2012 nonobstructive 10/2022 stress test EF 43 %, small areas prior infarcts RCA and LAD territories History of hip surgery RIGHT 04/11/19 History of penile implant History of tonsillectomy and adenoidectomy History of total bilateral knee replacement (TKR) History of total left hip arthroplasty History of total right hip arthroplasty Hx of appendectomy Hx of cholecystectomy S/P lumbar fusion S/P spinal fusion 02/2021 - T9-S1 Dr Delarosa 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 Status post revision of total replacement of right knee Status post spinal arthrodesis Family History Mother , Age 81 Bleeding disorder Clotting disorder CAD (coronary artery disease) 60s Cancer Stroke Father , Age 94 CAD (coronary artery disease) 80 Dementia Daughter Chronic kidney disease (CKD) Brother CAD (coronary artery disease) [place] Cancer Denies family history of Diabetes Suicide Anesthesia complication Lung disease Social History Smoking and tobacco/nicotine status: never used tobacco/nicotine Alcohol intake: never Substance/Drug Use: never Household members: spouse Marital status: Current occupational status: retired Special danny needs: No Agree to transfusion: Yes Physical Exam Narrative: EXAM NARRATIVE: Constitutional: the patient appears well nourished and with normal development. Vital signs reviewed as documented. HENMT: Normocephalic, atraumatic. Extermal ears with normal appearance without drainage. Nose without drainage, normal appearance. Mucus membranes moist. Neck is supple, No jugular venous distension, trachea is midline, no appreciable carotid bruits. No lymphadenopathy. No meningeal signs. Flexion, extension and lateral rotation is without pain. Eyes: Pupils are equal, round, reactive to light and accommodation. No scleral icterus. Extra-ocular movement are intact. Thorax is symmetrical and with equal rise and fall with respirations. Resp: Lungs are clear to auscultation. No wheezes, rales, crackles or ronchi at present. Cardio: Regular rate and rhythm. Positive S1, S2. No appreciable murmurs, rubs or gallops. GI: Abdominal exam reveals normal bowel sounds to all quadrants. No organomegaly. No obvious palpable masses noted. No hepatomegally appreciated. Soft, nontender to palpation. Extremity: Extremities are non-edematous and both femoral and pedal pulses are 2+ and equal bilaterally. Moves all extremities well, sensation in all extremities. Neuro: Alert and oriented x4, person, place, time and situation. Cranial nerves II through XII are grossly intact, there is no focal neurological deficits that I can appreciate at present. Motor strength in the upper and lower extremities are equal and bilateral 5/5. Psych: Cooperative, calm, normal thought process, appropriate judgment. Skin: No lesions, rashes. No gross abnormalities noted. Back: Symmetrical, no obvious deformity, No CVA tenderness Course Vital Signs: Vital signs: Vital Signs Temperature 98.0 F 02/17/23 15:38 Pulse Rate 64 02/17/23 20:01 Respiratory Rate 18 02/17/23 20:01 Blood Pressure 160/81 02/17/23 20:01 Pulse Oximetry 94 02/17/23 20:01 Oxygen Delivery Me thod Room Air 02/17/23 20:01 MDM - Chest Pain Medical Decision Making Physical exam completed and documented, I will obtain serial cardiac enzymes, serial twelve-lead EKGs, chest x-ray, CBC, CMP, urinalysis, B-type natriuretic peptide, PT/PTT/INR, and a chest x-ray. I provide cardiac dose aspirin if indicated and nitroglycerin administration if indicated. Pending the review of the twelve-lead EKG I will provide cardiac dose aspirin as well as an inch Nitropaste and reevaluate accordingly. I will review any pervious and pertinent medical records for assist in obtaining beneficial medical information to improved the care and treatment of the patient. Medical Records I reviewed the patient's medical records. Lab Data I reviewed the patient's lab results. 02/17/23 15:25 02/17/23 15:25 Laboratory Results WBC 7.03 10^3/uL (3.29-11.43) 02/17/23 15:25 RBC 3.74 10^6/uL (3.85-5.65) L 02/17/23 15:25 Hgb 9.90 g/dL (11.27-16.99) L 02/17/23 15:25 Hct 32.6 % (37-53) L 02/17/23 15:25 MCV 87.2 fl (82-101) 02/17/23 15:25 MCH 26.5 pg (27-33) L 02/17/23 15:25 MCHC 30.4 g/dL (30-55) 02/17/23 15:25 RDW 17.7 % (12.1-15.1) H 02/17/23 15:25 Plt Count 205 10^3/cmm (157-399) 02/17/23 15:25 MPV 9.7 fL (7.4-10.4) 02/17/23 15:25 Neut % (Auto) 90.2 % 02/17/23 15:25 Lymph % (Auto) 3.8 % 02/17/23 15:25 [place] % (Auto) 5.3 % 02/17/23 15:25 Eos % (Auto) 0.0 % 02/17/23 15:25 Baso % (Auto) 0.1 % 02/17/23 15:25 Neut # (Auto) 6.34 10^3/uL (1.8-7.7) 02/17/23 15:25 Lymph # (Auto) 0.3 10^3/uL (0.8-4.8) L 02/17/23 15:25 [place] # (Auto) 0.4 10^3/uL (0.2-0.9) 02/17/23 15:25 Eos # (Auto) 0.0 10^3/uL (0.0-0.8) 02/17/23 15:25 Baso # (Auto) 0.0 10^3/uL (0.0-0.1) 02/17/23 15:25 Nucleated RBC % (auto) 0 % 02/17/23 15:25 Nucleated RBCs # 0.0 /100WBC 02/17/23 15:25 PT 15.30 SECONDS (12.1-14.9) H 02/17/23 15:25 INR 1.17 (0.8-1.2) 02/17/23 15:25 APTT 31.2 SECONDS (23.9-36.7) 02/17/23 15:25 Sodium 140 mmol/L (136-145) 02/17/23 15:25 Potassium 4.3 mmol/L (3.5-5.1) 02/17/23 15:25 Chloride 101 mmol/L (98-107) 02/17/23 15:25 Carbon Dioxide 24 mmol/L (22-29) 02/17/23 15:25 Anion Gap 19.3 (5-19) H 02/17/23 15:25 BUN 26 mg/dL (8-23) H 02/17/23 15:25 Creatinine 1.5 mg/dL (0.7-1.2) H 02/17/23 15:25 GFR Calculation Not Reportable 02/17/23 15:25 Glucose 146 mg/dL (65-115) H 02/17/23 15:25 Calculated Osmolality 297 mOsm/kg (285-295) H 02/17/23 15:25 Calcium 8.6 mg/dL (8.5-10.5) 02/17/23 15:25 Total Bilirubin 0.5 mg/dL (0.15-1.2) 02/17/23 15:25 AST 17 U/L (0-40) 02/17/23 15:25 ALT 16 U/L (0-41) 02/17/23 15:25 Alkaline Phosphatase 84 U/L (40-130) 02/17/23 15:25 Troponin T Baseline 26 ng/L (0-15) H 02/17/23 15:25 Troponin T 120 Minute 23.48 ng/L (0-15) H 02/17/23 17:30 Delta Troponin T -2.52 ABS# (0-10) L 02/17/23 17:30 NT-Pro-B Natriuret Pep 129 pg/mL (0-450) 02/17/23 15:25 Total Protein 6.0 g/dL (6.6-8.7) L 02/17/23 15:25 Albumin 3.9 g/dL (3.5-5.2) 02/17/23 15:25 Globulin 2.1 g/dL (1.3-4.6) 02/17/23 15:25 All radiology interpretation(s) finalized by discharge EKG Data EKG 1: Interpretation: Initial twelve-lead EKG obtained at 1538 and reviewed at 1540 demonstrates underlying sinus rhythm with a first-degree AV block with multifocal PVCs. His ventricular rate is 77 bpm, NH interval prolonged at 223, QRS duration 137, QT 423, QTc 455. There is no acute ST elevation or depression to demonstrate acute ischemia or infarction at present. EKG 2: Interpretation: Twelve-lead EKG obtained at 1854 and reviewed at 1855 demonstrates sinus rhythm with a first-degree AV block with a ventricular rate of 68 bpm, NH interval 233, QRS duration 153, QT 448 QTc [address] elevation or depression to demonstrate acute ischemia or infarction at present. Discharge Plan Discharge Patient Disposition: Home Clinical Impression: Atypical chest pain Atrial fibrillation Qualifiers: Atrial fibrillation type: paroxysmal Qualified Code(s): I48.0 - Paroxysmal atrial fibrillation Condition: Stable Prescriptions: No Action hydrocortisone 2.5 % cream 1 applic TOPICAL BID PRN (Reason: Itching) mometasone 0.1 % solution 1 applic topical DAILY PRN (Reason: skin irritation) Qty: 60 3RF Rx Instructions: apply a few drops to scalp daily as needed (DME) MARK BRACE See Rx Instructions .Route .MEDSUPPLY Qty: 1 0RF Rx Instructions: As directed carvedilol 25 mg tablet 25 mg PO BID Qty: 180 3RF (DME) Modification to AFO Brace to the left See Rx Instructions .Route .MEDSUPPLY Qty: 1 0RF Rx Instructions: As directed by [facility] diclofenac sodium 1 % gel 4 g TOPICAL QID PRN (Reason: Pain) Qty: 100 2RF ketoconazole 2 % cream 1 applic topical BID PRN (Reason: Skin Irritation) Rx Instructions: Apply 1-2 times daily on red, scaly areas of face leflunomide [Arava] 20 mg tablet 20 mg PO DAILY Qty: 90 1RF Rx Instructions: 340 b pricing please prednisone 5 mg tablet 10 mg PO QAM Qty: 60 3RF baclofen 10 mg tablet 10 mg PO BID Qty: 14 0RF hydralazine 50 mg tablet 50 mg PO TID Qty: 90 5RF atorvastatin 40 mg tablet 40 mg PO BEDTIME Qty: 90 3RF acetaminophen 500 mg Capsule 1,000 mg PO Q4H PRN (Reason: Pain) levothyroxine [Synthroid] 137 mcg tablet 137 mcg PO QAM Rx Instructions: PT STATES THIS MEDICATION MUST BE SYNTHROID, NOT LEVOTHYROXINE. liothyronine 5 mcg tablet 10 mcg PO QAM magnesium L-lactate [Magtab] 84 mg Tablet Extended Release 84 mg PO BID 30 Days Qty: 60 1RF Eliquis 5 mg Tablet 5 mg PO BID@0900,2100 Qty: 60 2RF amiodarone [Pacerone] 200 mg tablet 200 mg PO DAILY oxybutynin chloride 5 mg tablet extended release 24hr 5 mg PO QAM pregabalin 50 mg capsule 50 mg PO QAM bumetanide 2 mg tablet 2 mg PO BID isosorbide mononitrate 30 mg Tablet Extended Release 24 Hr 30 mg PO BEDTIME potassium chloride 10 mEq tablet extended release 20 meq PO BID albuterol sulfate 2.5 mg /3 mL (0.083 %) solution for nebulization 2.5 mg inhalation Q6H PRN (Reason: Shortness Of Breath) omeprazole 40 mg Capsule,Delayed Release(Dr/Ec) 40 mg PO QAM calcium carbonate 500 mg calcium (1,250 mg) Tablet 1,000 mg PO DAILY Nitrostat 0.4 mg Tablet, Sublingual 0.4 mg SUBLINGUAL Q5M PRN (Reason: Chest Pain) Rx Instructions: do not exceed 3 doses per episode albuterol sulfate 90 mcg/actuation HFA aerosol inhaler 1 - 2 puff INHALATION Q4H PRN (Reason: Wheezing) bisacodyl 5 mg tablet 5 mg PO DAILY PRN (Reason: constipation) Qty: 30 0RF Discharge Orders: Discharge ED (Routine); Ordered 02/17/23 Ordered By: Sergio Mondragon Referrals: Marsha Turner MD [Primary Care Provider] - Priyanka Rivas MD [Physician] - Discharge Diet: Advance as tolerated Discharge Activity: Resume usual activity Patient Instructions: Opioid Safety, Pain Management Activity Restrictions/Additional Instructions: Activity Restrictions/Additional Instructions: Thank you for choosing [facility] for your healthcare needs today. Please realize that you were seen in the Emergency Department and that we are providing you with an emergency medical screening exam and this may not be a complete and all inclusive of all the testing and or medical work-up that you may need to determine your ailment or severity of your illness. It is very important that you follow-up as instructed with your Primary care provider or Specialist for additional evaluation and to discuss your medical treatment plan. You may return to the Emergency Department should you have concerns or if your condition changes or worsens in any way. Coding Level of Care Code ED Final Canoe Inspector for Lauren Zimmerman
[2023-02-17] MEDS: aspirin 81 mg Chew Tablet 324 MG PO (16:04)
[2023-02-17] MEDS: nitroglycerin 1 gm/inch oint Pkt 1 INCH TOPICAL (16:06)
[2023-02-17 16:10] LABS: Basophils % 0.1 %; Hematocrit 32.6 % (37-53); Lymphocytes # 0.3 10^3/uL (0.8-4.8); Lymphocytes % 3.8 %; Mean Corpuscular HGB Conc 30.4 g/dL (30-55); Mean Corpuscular Hemoglobin 26.5 pg (27-33); Mean Corpuscular Volume 87.2 fl (82-101); Mean Platelet Volume 9.7 fL (7.4-10.4); Monocytes # 0.4 10^3/uL (0.2-0.9); Monocytes % 5.3 %; Neutrophils # 6.34 10^3/uL (1.8-7.7); Neutrophils % 90.2 %; Nucleated Red Blood Cells % 0 %; Platelet Count 205 10^3/cmm (157-399); Red Blood Count 3.74 10^6/uL (3.85-5.65); Red Cell Distribution Width 17.7 % (12.1-15.1); White Blood Count 7.03 10^3/uL (3.29-11.43)
[2023-02-17 16:25] LABS: INR 1.17 (0.8-1.2)
[2023-02-17 16:26] LABS: Partial Thromboplastin Time 31.2 SECONDS (23.9-36.7)
[2023-02-17 16:30] LABS: Troponin(5th) Baseline 26 ng/L (0-15)
[2023-02-17 16:45] LABS: Alanine Aminotransferase 16 U/L (0-41); Albumin Level 3.9 g/dL (3.5-5.2); Alkaline Phosphatase 84 U/L (40-130); Aspartate Amino Transferase 17 U/L (0-40); Blood Urea Nitrogen 26 mg/dL (8-23); Calcium 8.6 mg/dL (8.5-10.5); Carbon Dioxide 24 mmol/L (22-29); Chloride 101 mmol/L (98-107); Globulin 2.1 g/dL (1.3-4.6); Glucose 146 mg/dL (65-115); NT Pro B Type Natriuretic Pept 129 pg/mL (0-450); Osmolality Calculated 297 mOsm/kg (285-295); Sodium 140 mmol/L (136-145); Total Bilirubin 0.5 mg/dL (0.15-1.2)
[2023-02-17 16:54] LABS: Anion Gap 19.3 (5-19); Potassium 4.3 mmol/L (3.5-5.1)
--- NOTE | 2023-02-17 17:54 | ECG_ITS ---
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 Measurements Intervals [place] Rate: 77 P: 60 [place]: 223 QRS: -54 QRSD: 137 T: 57 QT: 423 QTc: 481 Interpretive Statements SINUS RHYTHM WITH FIRST DEGREE AV BLOCK WITH FREQUENT VENTRICULAR PREMATURE COMPLEXES INTRAVENTRICULAR CONDUCTION DELAY [130+ ms QRS DURATION] MINIMAL VOLTAGE CRITERIA FOR LVH, CONSIDER NORMAL VARIANT [MEETS CRITERIA IN ONE OF: R(aVL), S(V1), R(V5), R(V5/V6)+S(V1)] POSSIBLE ANTERIOR MYOCARDIAL INFARCTION , PROBABLY OLD [30 ms Q WAVE IN V3/V4, OR R < 0.2 mV IN V4] Compared to ECG 12/04/2022 10:06:31 First degree AV block now present Intraventricular conduction delay now present Left-axis deviation no longer present Myocardial infarct finding still present Electronically Signed On 02-18-2023 6:02:21 ZOO VETERINARIAN by Dario Nuñez M.D. [email or web address] [email or web address] hospitalMile High Organicsselect medical specialty hospital - [facility].[employer]/store/NU/[id number] f
[2023-02-17 18:37] LABS: Troponin 5 2HR 23.48 ng/L (0-15)
[2023-02-17 18:38] LABS: Troponin 5 2HR Delta -2.52 ABS# (0-10)
--- NOTE | 2023-02-17 18:54 | ECG_ITS ---
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 Measurements Intervals [place] Rate: 68 P: 65 [place]: 233 QRS: -53 QRSD: 153 T: 46 QT: 448 QTc: 477 Interpretive Statements SINUS RHYTHM WITH FIRST DEGREE AV BLOCK INTRAVENTRICULAR CONDUCTION DELAY [130+ ms QRS DURATION] Compared to ECG 12/04/2022 10:06:31 First degree AV block now present Intraventricular conduction delay now present Left-axis deviation no longer present Left ventricular hypertrophy no longer present Myocardial infarct finding no longer present Electronically Signed On 02-18-2023 6:02:09 CELL POURER by Dario Nuñez M.D. [email or web address].[employer]/store/[id number]
== END 2023-02-17 20:41 | disposition home or self-care (01) ==
PROVIDERS: Emergency Provider Internal Medicine; PCP Internal Medicine
DX: R07.89 Other chest pain (principal); I48.0 Paroxysmal atrial fibrillation; Z79.01 Long term (current) use of anticoagulants; I25.10 Atherosclerotic heart disease of native coronary artery without angina pectoris; I11.0 Hypertensive heart disease with heart failure; I50.9 Heart failure, unspecified; J44.9 Chronic obstructive pulmonary disease, unspecified; Z85.46 Personal history of malignant neoplasm of prostate; Z86.73 Personal history of transient ischemic attack (TIA), and cerebral infarction without residual deficits; E78.5 Hyperlipidemia, unspecified
CPT/HCPCS: 36415; 71045; 80053; 83880; 84484; 85025; 85610; 85730; 93005; 99285

== ENCOUNTER 2023-02-17 20:49 | Inpatient (IN) | payer MEDICARE, OTHER, SELFPAY ==
[2023-02-17] VITALS (7 sets, daily range): BP systolic 143–178; BP diastolic 75–94; PULSE 71–87; RESP 11–22; TEMP 36.7–37.2; O2SAT 93–97; BMI 35.2
--- NOTE | 2023-02-17 21:08 | W.ED.CHESTPA ---
HPI - Chest Pain General: Chief Complaint: Chest Pain Stated Complaint: Heart, just left Time Seen by Provider: 02/17/23 21:08 History of Present Illness: 77-year-old male presents to the emergency department after being seen approximately 45 minutes ago and requesting to be discharged. The patient states that earlier he was having some chest pain and came by ambulance and stated after being evaluated and receiving his second negative cardiac enzyme that he wanted to be discharged home and he would follow-up with Dr. Rob hartley top spotter by calling his office in the morning. I did discuss the risk and benefits as well as the return precautions with the patient and he stated he would return immediately if he had any chest pain that reoccurred. Patient states that he would prefer not to stay in the hospital but understood if he had to return that he would be admitted for additional evaluation treatment and care. Patient left the hospital approximately 30 minutes ago with his and again started having left chest wall pain and felt short of breath which prompted him to return to the emergency department immediately. He states that the recurrence of his chest pain was a 5 out of 10 Associated symptoms: Reports dyspnea and nausea Review of Systems General: Reports: 10 or more systems reviewed and unremarkable except in HPI and below Card: Reports: chest pain and irregular heart rhythm Resp: Reports: dyspnea GI: Reports: nausea [facility] ED PFSH: Medical History (Updated 02/17/23 @ 22:35 by Naz Goode MD) Unstable angina CAD (coronary artery disease) Seroma, postoperative Spinal stenosis, thoracic Atrial fibrillation Degenerative disc disease, thoracic History of prostate cancer Urgency incontinence Renal cyst Acquired calcaneovarus deformity of both feet Ascending aortic aneurysm Lumbar stenosis with neurogenic claudication Orthostatic hypotension Venous insufficiency of both lower extremities Acute blood loss as cause of postoperative anemia Anemia Failed back surgical syndrome DDD (degenerative disc disease), lumbar Chronic back pain History of TIA (transient ischemic attack) Radiation cystitis Carotid artery disease Hx of cataract Closed fracture of right patella CHF (congestive heart failure), NYHA class III EF 10/2022 43% on stress test, 50% on echo COVID-19 2020 Metatarsus adductus Osteoarthritis, generalized Seronegative rheumatoid arthritis High risk medication use prednisone and leflunomide 12/2022 Positive CORBY (antinuclear antibody) EDUARDO was negative in 2013 Gastroparesis GERD (gastroesophageal reflux disease) Cervical postlaminectomy syndrome FUAD (obstructive sleep apnea) Hyperlipidemia HTN (hypertension) Hypothyroid COPD (chronic obstructive pulmonary disease) H/O malignant neoplasm of skin Surgical History S/P spinal fusion 02/2021 - T9-S1 Dr Delarosa History of penile implant Status post spinal arthrodesis S/P lumbar fusion Status post revision of total replacement of right knee History of total bilateral knee replacement (TKR) History of cardiac cath ~2012 nonobstructive 10/2022 stress test EF 43 %, small areas prior infarcts RCA and LAD territories History of hip surgery RIGHT 04/11/19 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 History of total right hip arthroplasty History of total left hip arthroplasty History of abdominal aortic aneurysm (AAA) repair History of tonsillectomy and adenoidectomy Hx of appendectomy History of back surgery multiple procedures (>10) H/O neck surgery x 2 Hx of cholecystectomy H/O colonoscopy 2011 H/O esophagogastroduodenoscopy 2011 Family History Mother , Age 81 Bleeding disorder Clotting disorder CAD (coronary artery disease) 60s Cancer Stroke Father , Age 94 CAD (coronary artery disease) 80 Dementia Daughter Chronic kidney disease (CKD) Brother CAD (coronary artery disease) [place] Cancer Denies family history of Diabetes Suicide Anesthesia complication Lung disease Social History Smoking and tobacco/nicotine status: never used tobacco/nicotine Alcohol intake: never Substance/Drug Use: never Household members: spouse Marital status: Current occupational status: retired Special danny needs: No Agree to transfusion: Yes Physical Exam Narrative: EXAM NARRATIVE: Constitutional: the patient appears well nourished and with normal development. Vital signs reviewed as documented. HENMT: Normocephalic, atraumatic. Extermal ears with normal appearance without drainage. Nose without drainage, normal appearance. Mucus membranes moist. Neck is supple, No jugular venous distension, trachea is midline, no appreciable carotid bruits. No lymphadenopathy. No meningeal signs. Flexion, extension and lateral rotation is without pain. Eyes: Pupils are equal, round, reactive to light and accommodation. No scleral icterus. Extra-ocular movement are intact. Thorax is symmetrical and with equal rise and fall with respirations. Resp: Lungs are clear to auscultation. No wheezes, rales, crackles or ronchi at present. Cardio: Irregularly irregular. Positive S1, S2. No appreciable murmurs, rubs or gallops. GI: Abdominal exam reveals normal bowel sounds to all quadrants. No organomegaly. No obvious palpable masses noted. No hepatomegally appreciated. Soft, nontender to palpation. Extremity: Extremities are non-edematous and both femoral and pedal pulses are 2+ and equal bilaterally. Moves all extremities well, sensation in all extremities. Neuro: Alert and oriented x4, person, place, time and situation. Cranial nerves II through XII are grossly intact, there is no focal neurological deficits that I can appreciate at present. Motor strength in the upper and lower extremities are equal and bilateral 5/5. Psych: Cooperative, calm, normal thought process, appropriate judgment. Skin: No lesions, rashes. No gross abnormalities noted. Back: Symmetrical, no obvious deformity, No CVA tenderness Course Vital Signs: Vital signs: Vital Signs Temperature 98.1 F 02/17/23 20:51 Pulse Rate 71 02/17/23 22:34 Respiratory Rate 12 02/17/23 22:34 Blood Pressure 143/75 02/17/23 22:34 Pulse Oximetry 93 02/17/23 22:34 Oxygen Delivery Me thod Room Air 02/17/23 21:36 MDM - Chest Pain Medical Decision Making Physical exam completed and documented, I will obtain serial cardiac enzymes, serial twelve-lead EKGs, chest x-ray, CBC, CMP, urinalysis, B-type natriuretic peptide, PT/PTT/INR, and a chest x-ray. I provide cardiac dose aspirin if indicated and nitroglycerin administration if indicated. Pending the review of the twelve-lead EKG I will also consider providing loading dose of heparin and possible heparin drip as well as evaluate the need for nitroglycerin drip, and reevaluate accordingly. I will review any pervious and pertinent medical records for assist in obtaining beneficial medical information to improved the care and treatment of the patient. I will reevaluate in consider hospitalist consultation and cardiology consultation. Medical Records I reviewed the patient's medical records. No radiology studies performed this visit EKG Data EKG 1: Interpretation: Twelve-lead EKG obtained at 2054 and reviewed at 2056 demonstrates ventricular rate of 75 bpm, CT interval 142, QRS duration 114, QT 393, QTc 422. There is concern for 1 to [address] depression in leads II, III and aVF. Critical Care Time Critical Care Time: Critical Care Time: Yes Total Critical Care Time: 40 Attestation: This case had a high probability of a clinically significant, sudden, or life threatening deterioration of this patient's condition which required my full and direct attention, intervention and personal management. Discharge Plan Discharge Patient Disposition: Admitted As Inpatient Admit Provider: Naz Goode Clinical Impression: Acute non-ST elevation myocardial infarction (NSTEMI), Angina pectoris, Acute dyspnea Condition: Stable Coding Level of Care Code ED Dredge Pumper for Lauren Zimmerman
--- NOTE | 2023-02-17 21:24 | P.HP_ITS ---
Providers/Chief Complaint Primary Care Provider: Marsha Turner MD Chief Complaint: Heart, just left History of Present Illness Kojo Marinelli is a 77 year old male with history established coronary disease, chronic A-fib, chronic anemia, congestive heart failure, heart failure class III EF 43 to 50% seronegative rheumatoid arthritis, sleep apnea, was evaluated in the ER earlier today when he was discharged after EKG and serial troponins which were unremarkable, patient went outside and started having diaphoresis and chest discomfort. He is hypertensive as well. In the past patient has used Bumex, Coreg, isosorbide and hydralazine. Lexiscan was donein Oct, he was diaphoretic, stress test 11/04 did not show any acute ischemic changes echo showed EF 50% grade 1 diastolic function with first- degree AV block Patient is stating that earlier today when he was experiencing chest pain it lasted for about an hour he took 2 doses of nitroglycerin at home which did not relieve his pain, his pain got better when he got Nitropaste in the ER his troponins were flat EKG did not show any infarctive changes he was discharged from the ER, however he only drove a few miles before recurrence of chest pain, he is stating that this time chest pain was worse, he describes the pain as pressure-like sensation sometimes stabbing in nature radiating towards the shoulder blades, left arm which would make him short of breath and diaphoretic. He has had multiple angiograms in the past, never got any stents placed no history of CABG. Patient is not diabetic. Dr. Morales evaluated him in the ER at the bedside, he was getting echo, nitroglycerin drip was started at 10 Review of Systems Const: Reports: chills Eyes: Denies: change in vision ENMT: Denies: throat pain Card: Reports: chest pain Resp: Reports: dyspnea GI: Denies: abdominal pain : Denies: flank pain Musc: Denies: neck pain Skin/Breast: Denies: rash Neuro: Denies: headache(s) Medications/Allergies Home Medications Medication Instructions Recorded Confirmed Last Taken Type hydrocortisone 2.5 % topical cream 1 applic topical BID PRN Itching 03/21/19 02/11/23 04/04/19 History liothyronine 5 mcg tablet 10 mcg PO QAM 07/20/19 02/11/23 11/09/22 07:00 History acetaminophen 500 mg capsule 1,000 mg PO Q4H PRN Pain 02/06/20 02/11/23 10/26/21 History mometasone 0.1 % topical solution 1 applic topical DAILY PRN skin 06/27/20 02/11/23 Unknown Rx irritation #60 mL MARK BRACE #1 ea 08/01/20 02/11/23 Unknown Rx carvedilol 25 mg tablet 25 mg PO BID #180 tabs 03/24/21 02/11/23 11/09/22 07:00 Rx Modification to AFO Brace to the #1 ea 02/02/22 02/11/23 Unknown Rx left diclofenac sodium 1 % topical gel 4 g topical QID PRN Pain #100 grams 06/08/22 02/11/23 Unknown Rx atorvastatin 40 mg tablet 40 mg PO BEDTIME #90 tabs 06/26/22 02/11/23 11/08/22 21:00 Rx ketoconazole 2 % topical cream 1 applic topical BID PRN Skin 10/14/22 02/11/23 Unknown History Irritation levothyroxine 137 mcg tablet 137 mcg PO QAM 10/14/22 02/11/23 Unknown History (Synthroid) apixaban 5 mg tablet (Eliquis) 5 mg PO BID@0900,2100 #60 tabs 11/12/22 02/11/23 Unknown Rx magnesium L-lactate 84 mg 84 mg PO BID 30 days #60 tabs 11/12/22 02/11/23 Unknown Rx tablet,extended release (Magtab) amiodarone 200 mg tablet (Pacerone) 200 mg PO DAILY 12/03/22 02/11/23 Unknown History oxybutynin chloride 5 mg 5 mg PO QAM 12/03/22 02/11/23 Unknown History tablet,extended release 24 hr pregabalin 50 mg capsule 50 mg PO QAM 12/03/22 02/11/23 Unknown History baclofen 10 mg tablet 10 mg PO BID #14 tabs 12/17/22 02/11/23 Unknown Rx bumetanide 2 mg tablet 2 mg PO BID 12/18/22 02/11/23 Unknown History isosorbide mononitrate 30 mg 30 mg PO BEDTIME 12/18/22 02/11/23 Unknown History tablet,extended release 24 hr potassium chloride 10 mEq 20 meq PO BID 10/06/23 11/30/23 Unknown History tablet,extended release albuterol sulfate 2.5 mg/3 mL 2.5 mg inhalation Q6H PRN 12/22/22 02/11/23 Unknown History (0.083 %) solution for nebulization Shortness Of Breath albuterol sulfate 90 mcg/actuation 1 - 2 puff inhalation Q4H PRN 12/22/22 02/11/23 Unknown History aerosol inhaler Wheezing calcium carbonate 500 mg calcium 1,000 mg PO DAILY 12/22/22 02/11/23 Unknown History (1,250 mg) tablet nitroglycerin 0.4 mg sublingual 0.4 mg sublingual Q5M PRN Chest 12/22/22 02/11/23 Unknown History tablet (Nitrostat) Pain omeprazole 40 mg capsule,delayed 40 mg PO QAM 12/22/22 02/11/23 Unknown History release bisacodyl 5 mg tablet 5 mg PO DAILY PRN constipation #30 12/24/22 02/11/23 Unknown Rx tabs leflunomide 20 mg tablet (Arava) 20 mg PO DAILY #90 tabs 12/30/22 02/11/23 Unknown Rx prednisone 5 mg tablet 10 mg (2 x 5 mg) PO QAM #60 tabs 12/30/22 02/11/23 Unknown Rx hydralazine 50 mg tablet 50 mg PO TID #90 tabs 02/11/23 02/11/23 Unknown Rx Allergies Allergy/AdvReac Type Severity Reaction Status Date / Time metoclopramide [From Reglan] Allergy Unknown Verified 02/11/23 14:18 morphine Allergy ALGY-Hives Verified 02/11/23 14:18 tamsulosin [From Flomax] Allergy ADR/ALGY-Hy Verified 02/11/23 14:18 potension zolpidem [From Ambien] Allergy Unknown Verified 02/11/23 14:18 hydrocodone AdvReac Mild Hypotension Verified 02/11/23 14:18 oxycodone AdvReac Mild Hypotension Verified 02/11/23 14:18 paper tape Allergy tears skin Uncoded 02/11/23 14:18 off PFSH Acute PFSH: Medical History (Updated 02/17/23 @ 22:35 by Naz Goode MD) Unstable angina CAD (coronary artery disease) Seroma, postoperative Spinal stenosis, thoracic Atrial fibrillation Degenerative disc disease, thoracic History of prostate cancer Urgency incontinence Renal cyst Acquired calcaneovarus deformity of both feet Ascending aortic aneurysm Lumbar stenosis with neurogenic claudication Orthostatic hypotension Venous insufficiency of both lower extremities Acute blood loss as cause of postoperative anemia Anemia Failed back surgical syndrome DDD (degenerative disc disease), lumbar Chronic back pain History of TIA (transient ischemic attack) Radiation cystitis Carotid artery disease Hx of cataract Closed fracture of right patella CHF (congestive heart failure), NYHA class III EF 10/2022 43% on stress test, 50% on echo COVID-19 2020 Metatarsus adductus Osteoarthritis, generalized Seronegative rheumatoid arthritis High risk medication use prednisone and leflunomide 12/2022 Positive CORBY (antinuclear antibody) EDUARDO was negative in 2013 Gastroparesis GERD (gastroesophageal reflux disease) Cervical postlaminectomy syndrome FUAD (obstructive sleep apnea) Hyperlipidemia HTN (hypertension) Hypothyroid COPD (chronic obstructive pulmonary disease) H/O malignant neoplasm of skin Surgical History S/P spinal fusion 02/2021 - T9-S1 Dr Delarosa History of penile implant Status post spinal arthrodesis S/P lumbar fusion Status post revision of total replacement of right knee History of total bilateral knee replacement (TKR) History of cardiac cath ~2012 nonobstructive 10/2022 stress test EF 43 %, small areas prior infarcts RCA and LAD territories History of hip surgery RIGHT 04/11/19 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 History of total right hip arthroplasty History of total left hip arthroplasty History of abdominal aortic aneurysm (AAA) repair History of tonsillectomy and adenoidectomy Hx of appendectomy History of back surgery multiple procedures (>10) H/O neck surgery x 2 Hx of cholecystectomy H/O colonoscopy 2011 H/O esophagogastroduodenoscopy 2011 Family History Mother , Age 81 Bleeding disorder Clotting disorder CAD (coronary artery disease) 60s Cancer Stroke Father , Age 94 CAD (coronary artery disease) 80 Dementia Daughter Chronic kidney disease (CKD) Brother CAD (coronary artery disease) [place] Cancer Denies family history of Diabetes Suicide Anesthesia complication Lung disease Social History Smoking and tobacco/nicotine status: never used tobacco/nicotine Alcohol intake: never Substance/Drug Use: never Household members: spouse Marital status: Current occupational status: retired Special danny needs: No Agree to transfusion: Yes Vitals/I&O/Wt Last Vital Signs Temp 98.1 F 02/17/23 20:51 Pulse 75 02/17/23 20:51 Resp 22 H 02/17/23 20:51 BP 178/92 02/17/23 20:51 Pulse Ox 97 02/17/23 20:51 Weight last 48 hrs Weight 117.934 kg Physical Exam Narrative: Patient is awake and alert Chest pain at the time of evaluation No radial radial delay Hemodynamically stable GCS 15 Currently on room air Getting echo Sign of fluid overload Abdomen distended Bilateral breath sounds with rhonchi Currently on room air Saturating well Nonfocal neuro exam Hypertensive Blood pressure 168/85 mmHg A&P Assessment and plan (1) Acute dyspnea: (2) Angina pectoris: (3) Unstable angina: (4) Hypothyroid: (5) HTN (hypertension): Qualifiers: Hypertension type: primary hypertension Qualified Code(s): I10 - Essential (primary) hypertension (6) FUAD (obstructive sleep apnea): (7) High risk medication use: (8) Seronegative rheumatoid arthritis: (9) Anemia: (10) Atrial fibrillation: Qualifiers: Atrial fibrillation type: paroxysmal Qualified Code(s): I48.0 - Paroxysmal atrial fibrillation (11) Chronic anticoagulation: Plan Unstable angina Start nitroglycerin Continue heparin drip Hold Eliquis A-fib without RVR D-dimer age-adjusted not high No radial radial delay, we did assess aortic aneurysm during echo with no sign of aortic dissection With nitroglycerin his blood pressure will improve hold oral antihyperglycemic's We will keep him n.p.o. until tomorrow morning Dr. Morales consulted, appreciate cardiac evaluation and recommendations No plan for angiogram as of yet I will give aspirin, Plavix along with atorvastatin heparin drip and nitroglycerin Patient is full code N.p.o. Patient is not diabetic, no previous history of Stents placed, patient stating that he has had multiple angiograms in the past He carries a history of sleep apnea, GERD, will continue Protonix, will request CPAP Patient clinically is fluid overloaded diastolic CHF exacerbation we will give him diuretic along CPAP tonight Attestations Medical Necessity Statement*: More than 2 midnights anticipated Diagnoses Acute dyspnea R06.00 Angina pectoris I20.9 Unstable angina I20.0 Hypothyroid E03.9 Primary hypertension I10 Hypertension type: primary hypertension FUAD (obstructive sleep apnea) G47.33 High risk medication use Z79.899 Seronegative rheumatoid arthritis M06.00 Anemia D64.9 Paroxysmal atrial fibrillation I48.0 Atrial fibrillation type: paroxysmal Chronic anticoagulation Z79.01
--- NOTE | 2023-02-17 21:33 | USCV_ITS ---
Kojo Marinelli Age: 77 Gender: M : 1945 Exam Date: 02/17/2023 22:00 Ordering Phys: Naz Goode MD Technologist: FAMILIA Exam Location: [facility] Indication: Unstable Angina. Chest pain tonight. No history of cardiac intervention. History of ascending aortic ectasia. BP: 178 / 92 HR: 69 Rhythm: Sinus Technical Quality: Poor MEASUREMENTS (Male / Female) Normal Values 2D ECHO LV Diastolic Diameter PLAX 4.4 cm 4.2 - 5.9 / 3.9 - 5.3 cm LV Systolic Diameter PLAX 3.2 cm IVS Diastolic Thickness 2.1 cm 0.6 - 1.0 / 0.6 - 0.9 cm IVS Systolic Thickness 2.3 cm LVPW Diastolic Thickness 1.5 cm 0.6 - 1.0 / 0.6 - 0.9 cm LVPW Systolic Thickness 1.8 cm LVOT Diameter 2.3 cm LV Ejection Fraction 2D Teich 52.2 % LV Ejection Fraction MOD 2C 56.6 % LV Ejection Fraction 2C AL 57.2 % LA Diameter 4.4 cm LA Width 5.4 cm LA Height 5.8 cm RA Width 2.8 cm RA Height 5.0 cm Aorta at Sinotubular Diameter 3.9 cm IVC Diameter 1.6 cm M-MODE Aortic Annulus Diameter 3.6 cm LA Ao Ratio MM 1.2 MV E Point Septal Separation 0.5 cm DOPPLER AV Peak Velocity 125.0 cm/s LVOT Peak Velocity 91.0 cm/s AV Area Cont Eq vti 2.9 cm squared AV Area Cont Eq pk 2.9 cm squared MV Peak Velocity 105.0 cm/s MV Area PHT 3.1 cm squared Mitral E to A Ratio 0.6 MV E' Velocity 56.0 cm/s TR Peak Velocity 199.0 cm/s TR Peak Gradient 15.8 mmHg TV Peak E Velocity 71.0 cm/s Right Atrial Pressure 5.0 mmHg Pulmonary Artery Systolic Pressu 20.8 mmHg PV Peak Velocity 95.0 cm/s FINDINGS Left Ventricle Quality of the examination is poor. Echo contrast was used. There is probably normal LV size and function. No obvious regional wall motion disturbances. Diastolic function not evaluated. Ejection fraction is in the 55 to 60% range. Right Ventricle Normal right ventricular size and systolic function. Normal right ventricular systolic pressure. Right Atrium The right atrium is normal in size. Left Atrium Mildly increased left atrial size. Mitral Valve Mitral valve not well visualized. No mitral valve regurgitation. Aortic Valve Aortic valve not well visualized. No aortic valve regurgitation. No aortic valve stenosis. Tricuspid Valve Tricuspid valve not well visualized. Trace tricuspid valve regurgitation. Pulmonic Valve Pulmonic valve not well visualized. Pericardium Normal pericardium without effusion. Aorta Mildly dilated ascending aorta. 3.8 cm IVC The inferior vena cava appears normal. CONCLUSIONS Quality of the examination is poor. Echo contrast was used. There is probably normal LV size and function. No obvious regional wall motion disturbances. Diastolic function not evaluated. Ejection fraction is in the 55 to 60% range. Mildly increased left atrial size. Mildly dilated ascending aorta. 3.8 cm. Previous study was done 3 months ago. There has been no change. Dr. Josh Morales MD (Electronically Signed) Final Date: 18 February 2023 07:45 S
--- NOTE | 2023-02-17 21:39 | ECG_ITS ---
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 Measurements Intervals Martin Rate: 73 P: -72 MN: 139 QRS: -57 QRSD: 108 T: 3 QT: 403 QTc: 445 Interpretive Statements ECTOPIC ATRIAL RHYTHM VOLTAGE CRITERIA FOR LVH [MEETS CRITERIA IN ONE OF: R(aVL), S(V1), R(V5), R(V5/V6)+S(V1)] POSSIBLE ANTERIOR MYOCARDIAL INFARCTION , PROBABLY OLD [30 ms Q WAVE IN V3/V4, OR R < 0.2 mV IN V4] INFERIOR MYOCARDIAL INFARCTION , PROBABLY OLD [40+ ms Q WAVE AND/OR ST/T ABNORMALITY IN II/aVF] ST DEPRESSION, CONSIDER SUBENDOCARDIAL INJURY [0.1+ mV ST DEPRESSION] Compared to ECG 02/17/2023 18:54:51 ST (T wave) deviation now present First degree AV block no longer present Intraventricular conduction delay no longer present Electronically Signed On 02-18-2023 6:01:36 CONSTRUCTION TECH by Dario Nuñez M.D. [email or web address]
[2023-02-17 22:13] LABS: D Dimer 0.91 ug/mLFEU (0-0.59)
[2023-02-17 22:17] LABS: Troponin(5th) Baseline 27 ng/L (0-15)
--- NOTE | 2023-02-17 22:20 | P.CONIM_ITS ---
Providers/Reason For Consult Consulting Physician/Specialty*: Cardiovascular medicine. Reason for Consult*: Chest pain Requesting Physician: Emergency room Attending Physician: Naz Goode MD Primary Care Provider: Marsha Turner MD History of Present Illness History of Present Illness Kojo Marinelli is a 77 year old male who I was asked to see in the emergency room for chest pain. He has a tremendously long problem list with multiple medical problems that include atrial fibrillation, spinal stenosis, prostate cancer, small ascending aortic aneurysm, anemia, TIAs, carotid disease, diastolic heart failure, positive CORBY, GERD, sleep apnea, dyslipidemia, hypertension, COPD and nonmelanoma skin cancers. He has had no fewer than 15 surgeries in his life. He just saw Dr. Rivas about 2 weeks ago after he had been diagnosed with atrial fibrillation apparently. He is not in atrial fibrillation now. He has been worked up with multiple tests lately that included a sestamibi examination in [facility] which showed 2 very small fixed defects 1 in the distribution of the right and 1 in the distribution of the LAD. His ejection fraction was 43% on that study. At the same time he had an echocardiogram which showed normal left ventricular size and an ejection fraction of 50%. There was a question of wall motion disturbances and grade 1 diastolic dysfunction. His EKGs over time if showed sinus rhythm with an interventricular conduction delay and occasional PVCs and unusual R wave progression. He and his were driving earlier today and he had the sudden onset of severe back and chest pain. He came into the emergency room. He was evaluated. His EKG was the same as it had been previously. The first 1 was at 1538 hrs. and reveals sinus rhythm with an interventricular conduction delay, unusual R wave progression and PVCs. This was completely unchanged from before and there were no ST segment changes. His second EKG at 1854 hrs. was exactly the same. His troponin during that visit was 26. His creatinine is 1.5. He was given aspirin and Nitropaste. He had taken 3 nitroglycerin prior to arrival which did not help the pain. He decided to go home and give Dr. Rivas call. He and his were driving home and he had the onset of severe chest pain and shortness of breath and diaphoresis so he turned around and came back to the emergency room. It was at that time I was called and asked to take him to the cardiac catheterization laboratory. Here he is being given nitroglycerin and heparin. His EKG here during the second visit is exactly the same as it was previously without any ST segment changes. The hospitalist ordered a stat echo in the emergency room to assess for an ascending aortic aneurysm. He does not have 1. He is proximal aorta is minimally dilated but nothing more than it was previously. We are awaiting the second troponin. He tells me that he has been evaluated at multiple institutions over the years and has had a bunch of angiograms. He has never had a stent and has never had to have any intervention performed. He he says that Dr. Rivas has done an angiogram on him several years ago. His daughter was frustrated that nothing w as found in his heart several years ago and took him to [facility]. He said that they evaluated his heart and did not find anything. Review of Systems Narrative: He is with a positive review of systems in multiple distributions. Medications/Allergies Home Medications Medication Instructions Recorded Confirmed Last Taken Type hydrocortisone 2.5 % topical cream 1 applic topical BID PRN Itching 03/21/19 02/11/23 04/04/19 History liothyronine 5 mcg tablet 10 mcg PO QAM 07/20/19 02/11/23 11/09/22 07:00 History acetaminophen 500 mg capsule 1,000 mg PO Q4H PRN Pain 02/06/20 02/11/23 10/26/21 History mometasone 0.1 % topical solution 1 applic topical DAILY PRN skin 06/27/20 02/11/23 Unknown Rx irritation #60 mL MARK BRACE #1 ea 08/01/20 02/11/23 Unknown Rx carvedilol 25 mg tablet 25 mg PO BID #180 tabs 03/24/21 02/11/23 11/09/22 07:00 Rx Modification to AFO Brace to the #1 ea 02/02/22 02/11/23 Unknown Rx left diclofenac sodium 1 % topical gel 4 g topical QID PRN Pain #100 grams 06/08/22 02/11/23 Unknown Rx atorvastatin 40 mg tablet 40 mg PO BEDTIME #90 tabs 06/26/22 02/11/23 11/08/22 21:00 Rx ketoconazole 2 % topical cream 1 applic topical BID PRN Skin 10/14/22 02/11/23 Unknown History Irritation levothyroxine 137 mcg tablet 137 mcg PO QAM 10/14/22 02/11/23 Unknown History (Synthroid) apixaban 5 mg tablet (Eliquis) 5 mg PO BID@0900,2100 #60 tabs 11/12/22 02/11/23 Unknown Rx magnesium L-lactate 84 mg 84 mg PO BID 30 days #60 tabs 11/12/22 02/11/23 Unknown Rx tablet,extended release (Magtab) amiodarone 200 mg tablet (Pacerone) 200 mg PO DAILY 12/03/22 02/11/23 Unknown History oxybutynin chloride 5 mg 5 mg PO QAM 12/03/22 02/11/23 Unknown History tablet,extended release 24 hr pregabalin 50 mg capsule 50 mg PO QAM 12/03/22 02/11/23 Unknown History baclofen 10 mg tablet 10 mg PO BID #14 tabs 12/17/22 02/11/23 Unknown Rx bumetanide 2 mg tablet 2 mg PO BID 12/18/22 02/11/23 Unknown History isosorbide mononitrate 30 mg 30 mg PO BEDTIME 12/18/22 02/11/23 Unknown History tablet,extended release 24 hr potassium chloride 10 mEq 20 meq PO BID 12/18/22 02/11/23 Unknown History tablet,extended release albuterol sulfate 2.5 mg/3 mL 2.5 mg inhalation Q6H PRN 12/22/22 02/11/23 Unknown History (0.083 %) solution for nebulization Shortness Of Breath albuterol sulfate 90 mcg/actuation 1 - 2 puff inhalation Q4H PRN 12/22/22 02/11/23 Unknown History aerosol inhaler Wheezing calcium carbonate 500 mg calcium 1,000 mg PO DAILY 12/22/22 02/11/23 Unknown History (1,250 mg) tablet nitroglycerin 0.4 mg sublingual 0.4 mg sublingual Q5M PRN Chest 12/22/22 02/11/23 Unknown History tablet (Nitrostat) Pain omeprazole 40 mg capsule,delayed 40 mg PO QAM 12/22/22 02/11/23 Unknown History release bisacodyl 5 mg tablet 5 mg PO DAILY PRN constipation #30 12/24/22 02/11/23 Unknown Rx tabs leflunomide 20 mg tablet (Arava) 20 mg PO DAILY #90 tabs 12/30/22 02/11/23 Unknown Rx prednisone 5 mg tablet 10 mg (2 x 5 mg) PO QAM #60 tabs 12/30/22 02/11/23 Unknown Rx hydralazine 50 mg tablet 50 mg PO TID #90 tabs 02/11/23 02/11/23 Unknown Rx Allergies Allergy/AdvReac Type Severity Reaction Status Date / Time metoclopramide [From Reglan] Allergy Unknown Verified 02/11/23 14:18 morphine Allergy ALGY-Hives Verified 02/11/23 14:18 tamsulosin [From Flomax] Allergy ADR/ALGY-Hy Verified 02/11/23 14:18 potension zolpidem [From Ambien] Allergy Unknown Verified 02/11/23 14:18 hydrocodone AdvReac Mild Hypotension Verified 02/11/23 14:18 oxycodone AdvReac Mild Hypotension Verified 02/11/23 14:18 paper tape Allergy tears skin Uncoded 02/11/23 14:18 off PFSH Acute PFSH: Medical History Acquired calcaneovarus deformity of both feet Acute blood loss as cause of postoperative anemia Anemia Ascending aortic aneurysm Atrial fibrillation CAD (coronary artery disease) Carotid artery disease Cervical postlaminectomy syndrome CHF (congestive heart failure), NYHA class III EF 10/2022 43% on stress test, 50% on echo Chronic back pain Closed fracture of right patella COPD (chronic obstructive pulmonary disease) COVID-19 2020 DDD (degenerative disc disease), lumbar Degenerative disc disease, thoracic Failed back surgical syndrome Gastroparesis GERD (gastroesophageal reflux disease) H/O malignant neoplasm of skin High risk medication use prednisone and leflunomide 12/2022 History of prostate cancer History of TIA (transient ischemic attack) HTN (hypertension) Hx of cataract Hyperlipidemia Hypothyroid Lumbar stenosis with neurogenic claudication Metatarsus adductus Orthostatic hypotension FUAD (obstructive sleep apnea) Osteoarthritis, generalized Positive CORBY (antinuclear antibody) EDUARDO was negative in 2013 Radiation cystitis Renal cyst Seroma, postoperative Seronegative rheumatoid arthritis Spinal stenosis, thoracic Urgency incontinence Venous insufficiency of both lower extremities Surgical History H/O colonoscopy 2011 H/O esophagogastroduodenoscopy 2012 H/O neck surgery x 2 History of abdominal aortic aneurysm (AAA) repair History of back surgery multiple procedures (>10) History of cardiac cath ~2013 nonobstructive 10/2022 stress test EF 43 %, small areas prior infarcts RCA and LAD territories History of hip surgery RIGHT 04/11/19 History of penile implant History of tonsillectomy and adenoidectomy History of total bilateral knee replacement (TKR) History of total left hip arthroplasty History of total right hip arthroplasty Hx of appendectomy Hx of cholecystectomy S/P lumbar fusion S/P spinal fusion 02/2021 - T9-S1 Dr Delarosa 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 Status post revision of total replacement of right knee Status post spinal arthrodesis Family History Mother , Age 81 Bleeding disorder Clotting disorder CAD (coronary artery disease) 60s Cancer Stroke Father , Age 94 CAD (coronary artery disease) 80 Dementia Daughter Chronic kidney disease (CKD) Brother CAD (coronary artery disease) CT Cancer Denies family history of Diabetes Suicide Anesthesia complication Lung disease Social History Smoking and tobacco/nicotine status: never used tobacco/nicotine Alcohol intake: never Substance/Drug Use: never Household members: spouse Marital status: Current occupational status: retired Special danny needs: No Agree to transfusion: Yes Vitals/I&O/Wt Last Vital Signs Temp 98.1 F 02/17/23 20:51 Pulse 72 02/17/23 21:36 Resp 14 02/17/23 21:36 BP 168/85 02/17/23 21:36 Pulse Ox 93 02/17/23 21:36 O2 Del Method Room Air 02/17/23 21:36 Weight last 48 hrs Weight 260 lb Physical Exam Narrative: GENERAL: In general he looks very comfortable, is not diaphoretic, is not short of breath and is in no distress HEENT: Exam within normal limits. NECK: Supple without jugular vein distention. The carotid upstroke is normal without bruits. BACK: Exam normal. LUNGS: Clear. HEART: Regular rate and rhythm. ABDOMEN: Benign without organomegaly or tenderness. EXTREMITIES: No edema. NEUROLOGIC: Exam normal. SKIN: Unremarkable. A&P Assessment and plan (1) Acute dyspnea: (2) Atypical chest pain: (3) HTN (hypertension): Qualifiers: Hypertension type: primary hypertension Qualified Code(s): I10 - Essential (primary) hypertension (4) Hyperlipidemia: Qualifiers: Hyperlipidemia type: mixed hyperlipidemia Qualified Code(s): E78.2 - Mixed hyperlipidemia (5) FUAD (obstructive sleep apnea): (6) Atrial fibrillation: Qualifiers: Atrial fibrillation type: paroxysmal Qualified Code(s): I48.0 - Paro xysmal atrial fibrillation Plan I do not think this man is having a heart attack. He certainly is not having ST segment elevation CT and I doubt that he is having even unstable angina or a non-ST segment elevation CT. His EKGs are unchanged. In the midst of what he describes as 10 out of 10 chest pain he had no troponin elevation. I think it is important to remember that he has had multiple angiograms in the past for similar symptoms and nothing has been found and no intervention has been required. I think that is going to be the case this time as well. I would not take him to the cardiac catheterization laboratory tonight and perhaps not even tomorrow. We will assess him with serial troponins. I will turn him back over to Dr. Rivas in the morning. There is no reason to repeat a stress test as he had 1 in October which was basically a low risk scan. 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 Consult Attestations Medical Necessity Statement: Admission for simple monitoring and serial troponins and High Time for a total of 75 minutes, includes reviewing past or interval history, examining/interviewing patient, placing orders, counseling patient/family/other support, updating patient/family/other support, discussing plan of care with staff, communicating with other healthcare providers, documenting encounter and coordinating care Diagnoses Acute dyspnea R06.00 Atypical chest pain R07.89 Primary hypertension I10 Hypertension type: primary hypertension Mixed hyperlipidemia E78.2 Hyperlipidemia type: mixed hyperlipidemia FUAD (obstructive sleep apnea) G47.33 Paroxysmal atrial fibrillation I48.0 Atrial fibrillation type: paroxysmal
[2023-02-17] MEDS: nitroglycerin drip 50 MG/250 ML PREMIX IV (22:21)
[2023-02-17] MEDS: heparin 5,000 unit/mL INJ 1 mL 4000 UNIT IVP (22:23)
[2023-02-17] MEDS: heparin drip 25,000 UNIT/500 ML PREMIX 33.02 UNIT IV (22:28)
--- NOTE | 2023-02-17 23:26 | ECG_ITS ---
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 Measurements Intervals [place] Rate: 72 P: 26 HI: 230 QRS: -55 QRSD: 146 T: 51 QT: 450 QTc: 496 Interpretive Statements SINUS RHYTHM WITH FIRST DEGREE AV BLOCK INTRAVENTRICULAR CONDUCTION DELAY [130+ ms QRS DURATION] Compared to ECG 02/17/2023 21:39:26 First degree AV block now present Intraventricular conduction delay now present Junctional rhythm no longer present Left ventricular hypertrophy no longer present Myocardial infarct finding no longer present ST (T wave) deviation no longer present Electronically Signed On 02-18-2023 6:01:46 PLUMBING ENGINEER by Dario Nuñez M.D. [id number]
[2023-02-18] VITALS (65 sets, daily range): BP systolic 112–170; BP diastolic 64–95; PULSE 62–99; RESP 0–23; TEMP 37.2; O2SAT 86–96
[2023-02-18 00:17] LABS: Estmated Average Glucose 100; Hemoglobin A1C 5.1 % (4.0-6.0)
[2023-02-18 00:27] LABS: Vitamin B12 230 pg/mL (232-1245)
[2023-02-18] MEDS: clopidogrel 300 mg Tablet PO (00:27)
--- NOTE | 2023-02-18 03:38 | ECG_ITS ---
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 Measurements Intervals [place] Rate: 75 P: -77 MS: 142 QRS: -61 QRSD: 114 T: -2 QT: 393 QTc: 441 Interpretive Statements ECTOPIC ATRIAL RHYTHM MODERATE VOLTAGE CRITERIA FOR LVH, CONSIDER NORMAL VARIANT [MEETS CRITERIA IN ONE OF: R(aVL), S(V1), R(V5), R(V5/V6)+S(V1)] POSSIBLE ANTERIOR MYOCARDIAL INFARCTION , PROBABLY OLD [30 ms Q WAVE IN V3/V4, OR R < 0.2 mV IN V4] INFERIOR MYOCARDIAL INFARCTION , PROBABLY OLD [40+ ms Q WAVE AND/OR ST/T ABNORMALITY IN II/aVF] ST DEPRESSION, CONSIDER SUBENDOCARDIAL INJURY [0.1+ mV ST DEPRESSION] Compared to ECG 02/17/2023 18:54:51 Ectopic atrial rhythm now present Myocardial infarct finding now present Intraventricular conduction delay no longer present Electronically Signed On 02-18-2023 6:02:03 PROJECT DESIGNER by Dario Nuñez M.D. [id number]
[2023-02-18 03:40] LABS: Basophils % 0.3 %; Eosinophils % 0.3 %; Hematocrit 30.6 % (37-53); Lymphocytes # 0.3 10^3/uL (0.8-4.8); Mean Corpuscular HGB Conc 30.7 g/dL (30-55); Mean Corpuscular Hemoglobin 26.5 pg (27-33); Mean Corpuscular Volume 86.2 fl (82-101); Mean Platelet Volume 9.6 fL (7.4-10.4); Monocytes # 0.5 10^3/uL (0.2-0.9); Monocytes % 8.2 %; Neutrophils # 5.64 10^3/uL (1.8-7.7); Neutrophils % 85.7 %; Nucleated Red Blood Cells % 0 %; Platelet Count 174 10^3/cmm (157-399); Red Blood Count 3.55 10^6/uL (3.85-5.65); Red Cell Distribution Width 17.6 % (12.1-15.1); White Blood Count 6.58 10^3/uL (3.29-11.43)
[2023-02-18 03:56] LABS: C Reactive Protein 3.9 mg/L (0.0-4.9)
[2023-02-18 04:13] LABS: Magnesium 2.1 mg/dL (1.7-2.3); Phosphorus 2.9 mg/dL (2.5-4.5)
[2023-02-18 04:16] LABS: Partial Thromboplastin Time 126.6 SECONDS (23.9-36.7)
[2023-02-18 04:29] LABS: Anion Gap 13.7 (5-19); Blood Urea Nitrogen 22 mg/dL (8-23); Calcium 8.6 mg/dL (8.5-10.5); Carbon Dioxide 27 mmol/L (22-29); Chloride 100 mmol/L (98-107); Creatinine Clr Calc Pharmacy 72.1938; Glucose 88 mg/dL (65-115); Osmolality Calculated 287 mOsm/kg (285-295); Potassium 3.7 mmol/L (3.5-5.1); Sodium 137 mmol/L (136-145)
--- NOTE | 2023-02-18 04:39 | PC.NURSE ---
Clarified order for heparin drip with Dr Goode. Received instruction to change to weight-based titrateable heparin drip.
[2023-02-18] MEDS: predniSONE 5 mg Tablet 10 MG PO (04:44)
[2023-02-18] MEDS: heparin drip 25,000 UNIT/500 ML PREMIX 27 UNIT IV (04:56)
[2023-02-18] MEDS: pantoprazole 40 mg SDV IVP ×2 (08:28→18:03)
[2023-02-18] MEDS: atorvastatin 40 mg Tablet 80 MG PO (08:29)
[2023-02-18] MEDS: clopidogrel 75 mg Tablet PO (08:29)
[2023-02-18] MEDS: potassium chloride ER 20 mEq Tablet PO (08:29)
[2023-02-18] MEDS: amiodarone 200 mg Tablet PO (08:29)
[2023-02-18] MEDS: bumetanide 1 mg Tablet PO (08:29)
[2023-02-18] MEDS: aspirin 81 mg EC Tablet PO (08:29)
--- NOTE | 2023-02-18 08:49 | PM.PN ---
Subjective Subjective: Patient is admitted to hospital with chest pain. Myocardial infarction was ruled out. EKG is unremarkable. No severe arrhythmias on the monitor Medications: Medication Review Details: Current Medications Acetaminophen (Acetaminophen 500 Mg Tablet) 500 mg PO Q4H PRN PRN Reason: fever Albuterol/Ipratropium (Ipratropium-Albuterol 3 Ml Neb) 3 ml INHALATION Q6H PRN PRN Reason: SHORTNESS OF BREATH Albuterol/Ipratropium (Ipratropium-Albuterol 3 Ml Neb) 3 ml INHALATION Q6H PRN PRN Reason: SHORTNESS OF BREATH Amiodarone HCl (Amiodarone 200 Mg Tablet) 200 mg PO DAILY [facility] Last Admin: 02/18/23 08:29 Dose: 200 mg Aspirin (Aspirin 81 Mg Ec Tablet) 81 mg PO DAILY [facility] Last Admin: 02/18/23 08:29 Dose: 81 mg Atorvastatin Calcium (Atorvastatin 40 Mg Tablet) 80 mg PO DAILY [facility] Last Admin: 02/18/23 08:29 Dose: 80 mg Bumetanide (Bumetanide 1 Mg Tablet) 1 mg PO DAILY [facility] Last Admin: 02/18/23 08:29 Dose: 1 mg Clopidogrel Bisulfate (Clopidogrel 75 Mg Tablet) 75 mg PO DAILY [facility] Last Admin: 02/18/23 08:29 Dose: 75 mg Heparin Sodium (Porcine) (Heparin 5,000 Unit/Ml Inj 1 Ml) 0 unit IV PRN PRN; Protocol PRN Reason: Heparin weight-base protocol Nitroglycerin/Dextrose (Nitroglycerin Drip) 50 mg in 250 mls @ 0 mls/hr IV .Q0M [facility]; Protocol Last Titration: 02/18/23 00:28 Dose: 15 mcg/min, 4.5 mls/hr Heparin Sodium/Sodium Chloride (Heparin Drip) 25,000 unit in 500 mls @ 0 mls/hr IV .Q0M [facility]; Protocol Last Admin: 02/18/23 04:56 Dose: 11.45 unit/kg/hr, 27 mls/hr Ondansetron HCl (Ondansetron 2 Mg/Ml Sdv 2 Ml) 4 mg IVP Q6H PRN PRN Reason: NAUSEA AND VOMITING Pantoprazole Sodium (Pantoprazole 40 Mg Sdv) 40 mg IVP BID [facility] Last Admin: 02/18/23 08:28 Dose: 40 mg Potassium Chloride (Potassium Chloride Er 20 Meq Tablet) 20 meq PO DAILY [facility] Last Admin: 02/18/23 08:29 Dose: 20 meq Prednisone (Prednisone 5 Mg Tablet) 10 mg PO QAM [facility] Last Admin: 02/18/23 04:44 Dose: 10 mg Senna/Docusate Sodium (Sennosides-Docusate Tablet) 1 tab PO DAILY [facility] Last Admin: 02/18/23 08:28 Dose: Not Given Vitals/I&O/Wt Last Vital Signs Temp 98.9 F 02/18/23 08:00 Pulse 75 02/18/23 08:00 Resp 16 02/18/23 08:00 BP 119/64 02/18/23 08:00 Pulse Ox 93 02/18/23 08:00 O2 Del Method Room Air 02/18/23 08:00 02/17/23 02/18/23 02/18/23 22:59 06:59 14:59 Intake Total 697.626 / 697.626 Output Total 775 / 775 Balance -77.374 / -77.374 Weight last 48 hrs Weight 263 lb 6.4 oz Weight 263 lb 6.4 oz Weight 260 lb Physical Exam Narrative: GENERAL: The patient is alert and oriented times three. Not in any acute distress. HEENT: No significant pallor, icterus or lymphadenopathy.Oral cavity: There are no mucous membrane lesions. NECK: Trachea appears to be central. No masses noted. No JVD or thyromegaly appreciated. RESPIRATORY: Chest is symmetrical. No intercostals muscle retraction or any accessory muscle activation. There is no chest wall tenderness. Breath sounds are heard bilaterally. No rales or rhonchi heard. No evidence of any consolidation. BREASTS: Deferred. HEART: The heart sounds are normal. No S3 or S4. No significant murmurs. No pericardial rub ABDOMEN: No vessel pulsations or distention. No tenderness. No organomegaly appreciated. Bowel sounds are normally heard. : Deferred. RECTAL: Deferred. LYMPHATIC: No lymphadenopathy noted in the neck. EXTREMITIES: No edema or cyanosis. No clubbing. MUSCULOSKELETAL: No acute joint deformities or swelling SKIN: There are no significant rashes or ecchymosis NEUROPSYCHIATRIC: The patient is alert and oriented x3. Appears to be in a good mood. No tremors or rigidity noted. Data 02/18/23 03:20 02/18/23 03:20 Other Labs: Laboratory Last Values WBC 6.58 10^3/uL (3.29-11.43) 02/18/23 03:20 RBC 3.55 10^6/uL (3.85-5.65) L 02/18/23 03:20 Hgb 9.40 g/dL (11.27-16.99) L 02/18/23 03:20 Hct 30.6 % (37-53) L 02/18/23 03:20 MCV 86.2 fl (82-101) 02/18/23 03:20 MCH 26.5 pg (27-33) L 02/18/23 03:20 MCHC 30.7 g/dL (30-55) 02/18/23 03:20 RDW 17.6 % (12.1-15.1) H 02/18/23 03:20 Plt Count 174 10^3/cmm (157-399) 02/18/23 03:20 MPV 9.6 fL (7.4-10.4) 02/18/23 03:20 Neut % (Auto) 85.7 % 02/18/23 03:20 Lymph % (Auto) 5.0 % 02/18/23 03:20 [place] % (Auto) 8.2 % 02/18/23 03:20 Eos % (Auto) 0.3 % 02/18/23 03:20 Baso % (Auto) 0.3 % 02/18/23 03:20 Neut # (Auto) 5.64 10^3/uL (1.8-7.7) 02/18/23 03:20 Lymph # (Auto) 0.3 10^3/uL (0.8-4.8) L 02/18/23 03:20 [place] # (Auto) 0.5 10^3/uL (0.2-0.9) 02/18/23 03:20 Eos # (Auto) 0.0 10^3/uL (0.0-0.8) 02/18/23 03:20 Baso # (Auto) 0.0 10^3/uL (0.0-0.1) 02/18/23 03:20 Nucleated RBC % (auto) 0 % 02/18/23 03:20 Nucleated RBCs # 0.0 /100WBC 02/18/23 03:20 APTT 126.6 SECONDS (23.9-36.7) H D 02/18/23 03:20 D-Dimer 0.91 ug/mLFEU (0-0.59) H 02/17/23 21:52 Sodium 137 mmol/L (136-145) 02/18/23 03:20 Potassium 3.7 mmol/L (3.5-5.1) 02/18/23 03:20 Chloride 100 mmol/L (98-107) 02/18/23 03:20 Carbon Dioxide 27 mmol/L (22-29) 02/18/23 03:20 Anion Gap 13.7 (5-19) 02/18/23 03:20 BUN 22 mg/dL (8-23) 02/18/23 03:20 Creatinine 1.1 mg/dL (0.7-1.2) 02/18/23 03:20 GFR Calculation Not Reportable 02/18/23 03:20 Glucose 88 mg/dL (65-115) 02/18/23 03:20 Estimat Average Glucose 100 02/17/23 21:52 Hemoglobin A1c 5.1 % (4.0-6.0) 02/17/23 21:52 Calculated Osmolality 287 mOsm/kg (285-295) 02/18/23 03:20 Calcium 8.6 mg/dL (8.5-10.5) 02/18/23 03:20 Phosphorus 2.9 mg/dL (2.5-4.5) 02/18/23 03:20 Magnesium 2.1 mg/dL (1.7-2.3) 02/18/23 03:20 Troponin T Baseline 27 ng/L (0-15) H 02/17/23 21:52 Troponin T 120 Minute 29.20 ng/L (0-15) H 02/17/23 23:05 Delta Troponin T 2.20 ABS# (0-10) 02/17/23 23:05 Troponin T Hi Sens 6Hr 35.50 ng/L (0-15) H 02/18/23 03:20 Troponin T Hi Sens 6Hr Delta 8.50 ng/L (0-12) 02/18/23 03:20 C-Reactive Protein 3.9 mg/L (0.0-4.9) 02/18/23 03:20 Vitamin B12 230 pg/mL (232-1245) L 02/17/23 21:52 Other data: Cardiac cardiac catheterization on 11/25/2012 Procedure Summary 1-Very short LM almost separate [place] for LAD and LCx 2-LM is normal 3-LAD is normal 4-LCx is normal 5-RCA is normal and non dominant 6-LV is Normal LVEDP A&P Assessment and plan (1) Chest pain: The chest pain most likely is musculoskeletal in origin. Patient has no evidence of myocardial [place]. No ischemic EKG changes. Had an unremarkable Myocardial perfusion imaging in October of this year. Had normal coronary arteries by angiogram in 2012. Apparently he had multiple angiograms prior to this. Discussed with the patient the current findings and the options. Because of the limitation of the stress test, if he continues to have chest pains, may require a repeat cardiac catheterization. This option was discussed with the patient. So it was decided to hold off on this At this point, it may appropriate to discontinue the IV heparin. Encourage ambulation. If the patient continues to remain stable, may be discharged home today or in the morning Since that he has improvement with the nitroglycerin I may go up on the isosorbide to 60 mg p.o. daily Qualifiers: Chest pain type: chest pain on breathing Qualified Code(s): R07.1 - Chest pain on breathing (2) HTN (hypertension): The blood pressure seems to be in the normal range. May continue on the current medication. Qualifiers: Hypertension type: primary hypertension Qualified Code(s): I10 - Essential (primary) hypertension (3) Hyperlipidemia: May continue on the current medications. Qualifiers: Hyperlipidemia type: mixed hyperlipidemia Qualified Code(s): E78.2 - Mixed hyperlipidemia (4) Hypothyroid: Clinically euthyroid. Continue on the thyroid supplement. Qualifiers: Hypothyroidism type: acquired Qualified Code(s): E03.9 - Hypothyroidism, unspecified (5) FUAD (obstructive sleep apnea): May continue on the CPAP. (6) Atrial fibrillation: Patient is with the control ventricular response rate. The borderline chronic elevation of the troponin T, most likely related to the arrhythmia. Qualifiers: Atrial fibrillation type: paroxysmal Qualified Code(s): I48.0 - Paroxysmal atrial fibrillation (7) Chronic anticoagulation: No bleeding complication. Patient has chronic anemia. No recent changes. Plan Since the nitroglycerin is helping the pain, I may increase the dose of the isosorbide to see the milligram p.o. daily. The other medication may be continued as it is. Attestations Medical Necessity Statement*: Disposition as per the primary Coding Level of Care Code 97225 Diagnoses Chest pain on breathing R07.1 Chest pain type: chest pain on breathing Primary hypertension I10 Hypertension type: primary hypertension Mixed hyperlipidemia E78.2 Hyperlipidemia type: mixed hyperlipidemia Acquired hypothyroidism E03.9 Hypothyroidism type: acquired FUAD (obstructive sleep apnea) G47.33 Paroxysmal atrial fibrillation I48.0 Atrial fibrillation type: paroxysmal Chronic anticoagulation Z79.01
[2023-02-18] MEDS: ipratropium-albuterol 3 mL Neb INHALATION ×2 (10:26→15:29)
--- NOTE | 2023-02-18 11:05 | PC.CHAP ---
Pastoral Care Encounter/Spiritual Assessment Type of Contact [] Declined fitting room associate visit [] Patient/Family/Request visit [] Outpatient visit [] Follow-up visit [] Physician referral [] Code/Alert [x] Routine visit [] Staff referral [] Actively dying [] Patient sleeping [] Family support [] [] Out of room [] Palliative care [] [x] Receiving care in room [] Pre-surgical visit [] Trauma [] Long length of stay [] ICU visit [] Other: Relational/Emotional Strength [x] Patient feels connected with others/family/visitors/staff [] Distress [] Loneliness/isolation [] Abandonment Spirituality of Patient [x] Person of Nini [] Attends [employer] of their Nini [x] Believes in Prayer [] Reads Bible or Jew materials [] There are Spiritual issues to be addressed [employer] Officer Interventions [x] Prayer [x] Active listening [x] Non-anxious presence [x] Spiritual/emotional support [] Crisis/trauma care [x] Spiritual counseling [] Bereavement support [] Provided bereavement packet [] Provided Bible/devotional materials [] Provided toy/stuffed animal, coloring book to patient or family member [] Provided Communion [] Anointing/[place] [] Salvation [x] Completed spiritual assessment [] Other: Impact on Illness or Injury [] Angry [] Fearful [] Anxious [] Often cries [] Exhaustion [] Unable to work [] Unable to attend jainism [] Unable to walk/stand [] Unable to read [] Unable to drive [] Unable to eat/drink [] Unable to sleep [] Unable to be with family [] Patient intubated [] Other: Summary senior had pain from neck down in the shorlder it may relate to heart functions had tests waiting on doctor for results has a good attitude well go home Time spent with patient 10 mins
[2023-02-18 11:33] LABS: Partial Thromboplastin Time 103.7 SECONDS (23.9-36.7)
--- NOTE | 2023-02-18 12:26 | P.PN_ITS ---
Subjective 2 Subjective: seen today denies cp, sob still on nitro drip and heparin says he cant ambulate independently yet 2/2 to his back surgery from dec 21, 2022 he says he needs to work with therapy Vitals/I&O/Wt Last Vital Signs Temp 98.9 F 02/18/23 08:00 Pulse 66 02/18/23 10:32 Resp 18 02/18/23 10:32 BP 119/64 02/18/23 08:00 Pulse Ox 95 02/18/23 10:32 O2 Del Method Room Air 02/18/23 10:32 02/17/23 02/18/23 02/18/23 22:59 06:59 14:59 Intake Total 697.626 / 697.626 247.2 / 247.2 Output Total 775 / 775 Balance -77.374 / -77.374 247.2 / 247.2 Weight last 48 hrs Weight 119.476 kg Weight 119.476 kg Weight 117.934 kg Physical Exam 2 Narrative: Patient is awake and alert Hemodynamically stable GCS 15 Currently on room air Abdomen obese rounded Bilateral breath sounds with rhonchi Currently on room air Saturating well Nonfocal neuro exam Hypertensive Data 02/18/23 03:20 02/18/23 03:20 A&P Assessment and plan (1) Acute dyspnea: (2) Angina pectoris: (3) Unstable angina: (4) Hypothyroid: (5) HTN (hypertension): Qualifiers: Hypertension type: primary hypertension Qualified Code(s): I10 - Essential (primary) hypertension (6) FUAD (obstructive sleep apnea): (7) High risk medication use: (8) Seronegative rheumatoid arthritis: (9) Anemia: (10) Atrial fibrillation: Qualifiers: Atrial fibrillation type: paroxysmal Qualified Code(s): I48.0 - Paroxysmal atrial fibrillation (11) Chronic anticoagulation: Plan Unstable angina continue nitroglycerin Continue heparin drip Hold Eliquis A-fib without RVR D-dimer age-adjusted not high No radial radial delay, we did assess aortic aneurysm during echo with no sign of aortic dissection With nitroglycerin his blood pressure will improve hold oral antihyperglycemic's Dr. Morales consulted, appreciate cardiac evaluation and recommendations No plan for angiogram as of yet continue give aspirin, Plavix along with atorvastatin heparin drip and nitroglycerin Patient is full code Patient is not diabetic, no previous history of Stents placed, patient stating that he has had multiple angiograms in the past He carries a history of sleep apnea, GERD, will continue Protonix, will request CPAP Patient clinically is fluid overloaded diastolic CHF exacerbation we will give him diuretic along CPAP tonight patient reqiures inpatient hospitalization and continous telemetry and lab monitoring due to being on high risk medications nitro gtt and heparin gtt. Will reach out to cardiology to discuss further management Attestations 2 Medical Necessity Statement*: requires hospitalization for chest pain workup. patient needs continued monitoring in cardiac step down unit to due being on nitroglycerin and heparin gtt. Diagnoses Acute dyspnea R06.00 Angina pectoris I20.9 Unstable angina I20.0 Hypothyroid E03.9 Primary hypertension I10 Hypertension type: primary hypertension FUAD (obstructive sleep apnea) G47.33 High risk medication use Z79.899 Seronegative rheumatoid arthritis M06.00 Anemia D64.9 Paroxysmal atrial fibrillation I48.0 Atrial fibrillation type: paroxysmal Chronic anticoagulation Z79.01
[2023-02-18] MEDS: apixaban 5 mg Tablet PO ×2 (14:45→19:51)
[2023-02-18] MEDS: artificial tears Op Oint 3.5 gm 1 APPLIC EYE-BOTH (14:45)
[2023-02-18] MEDS: isosorbide mononitrate ER 60 mg Tablet PO (19:51)
[2023-02-18] MEDS: temazepam 15 mg Capsule PO (19:51)
[2023-02-19 00:06] VITALS: BP 136/69; PULSE 73; RESP 16; O2SAT 93
[2023-02-19] MEDS: trazodone 50 mg Tablet PO (00:08)
[2023-02-19 03:33] VITALS: BP 160/79; PULSE 69; RESP 16; O2SAT 94
[2023-02-19 04:10] LABS: Basophils % 0.7 %; Eosinophils # 0.1 10^3/uL (0.0-0.8); Eosinophils % 1.4 %; Hematocrit 28.6 % (37-53); Lymphocytes # 0.4 10^3/uL (0.8-4.8); Lymphocytes % 9.8 %; Mean Corpuscular HGB Conc 30.1 g/dL (30-55); Mean Corpuscular Hemoglobin 26.1 pg (27-33); Mean Corpuscular Volume 86.7 fl (82-101); Mean Platelet Volume 9.5 fL (7.4-10.4); Monocytes # 0.6 10^3/uL (0.2-0.9); Monocytes % 14.2 %; Nucleated Red Blood Cells % 0 %; Platelet Count 170 10^3/cmm (157-399); Red Cell Distribution Width 17.9 % (12.1-15.1); White Blood Count 4.38 10^3/uL (3.29-11.43)
[2023-02-19 04:28] LABS: Anion Gap 11.7 (5-19); Blood Urea Nitrogen 21 mg/dL (8-23); Calcium 8.6 mg/dL (8.5-10.5); Carbon Dioxide 27 mmol/L (22-29); Chloride 104 mmol/L (98-107); Glucose 90 mg/dL (65-115); Osmolality Calculated 291 mOsm/kg (285-295); Potassium 3.7 mmol/L (3.5-5.1); Sodium 139 mmol/L (136-145)
[2023-02-19] MEDS: predniSONE 5 mg Tablet 10 MG PO (05:03)
[2023-02-19 07:29] VITALS: BP 143/70; PULSE 72; TEMP 36.7; O2SAT 94
[2023-02-19 08:32] VITALS: PULSE 78; RESP 16; O2SAT 95
[2023-02-19] MEDS: amiodarone 200 mg Tablet PO (09:04)
[2023-02-19] MEDS: aspirin 81 mg EC Tablet PO (09:04)
[2023-02-19] MEDS: potassium chloride ER 20 mEq Tablet PO (09:05)
[2023-02-19] MEDS: bumetanide 1 mg Tablet PO (09:05)
[2023-02-19] MEDS: pantoprazole 40 mg SDV IVP (09:05)
[2023-02-19] MEDS: clopidogrel 75 mg Tablet PO (09:05)
[2023-02-19] MEDS: apixaban 5 mg Tablet PO (09:06)
[2023-02-19] MEDS: atorvastatin 40 mg Tablet 80 MG PO (09:06)
[2023-02-19] MEDS: isosorbide mononitrate ER 60 mg Tablet PO (09:06)
--- NOTE | 2023-02-19 09:51 | PM.DCS ---
Discharge Providers Date of Admission: 02/17/23 21:48 Date of Discharge: February 19, 2023 Attending Provider at Admission: Naz Goode MD Attending Provider at Discharge: Skye Sarkar MD Primary Care Provider: Marsha Turner MD Diagnoses at Discharge Discharge Diagnosis (1) Chest pain: Status: Resolved Qualifiers: Chest pain type: chest pain on breathing Qualified Code(s): R07.1 - Chest pain on breathing (2) HTN (hypertension): Status: Acute Qualifiers: Hypertension type: primary hypertension Qualified Code(s): I10 - Essential (primary) hypertension (3) Hyperlipidemia: Status: Chronic Qualifiers: Hyperlipidemia type: mixed hyperlipidemia Qualified Code(s): E78.2 - Mixed hyperlipidemia (4) Hypothyroid: Status: Chronic Qualifiers: Hypothyroidism type: acquired Qualified Code(s): E03.9 - Hypothyroidism, unspecified (5) FUAD (obstructive sleep apnea): Status: Acute (6) Atrial fibrillation: Status: Chronic Qualifiers: Atrial fibrillation type: paroxysmal Qualified Code(s): I48.0 - Paroxysmal atrial fibrillation (7) Chronic anticoagulation: Status: Chronic Permanent problem details: eliquis Reason for Visit Reason for Visit: Heart, just left Hospital Course Hospital Course Admitted for unstable angina. Echo was done. Cardiology was consulted. Patient underwent a stress test. Stress test was unremarkable. Patient has had multiple angiograms prior to this. It was decided to medically manage the patient at this time. Imdur was increased to 60 daily. Patient was discharged home in stable condition to follow-up with cardiology as an outpatient. Physical Exam Narrative: Patient is awake and alert Hemodynamically stable GCS 15 Currently on room air Abdomen obese rounded Bilateral breath sounds with rhonchi Currently on room air Saturating well Nonfocal neuro exam Hypertensive Discharge Data Studies Completed and Pending Completed Studies During Hospitalization Category Date Time Status CV. echo wo/w contrast [id number] Routine Ultrasound 02/17/23 21:33 Completed Laboratory Results WBC 4.38 10^3/uL (3.29-11.43) 02/19/23 03:53 RBC 3.30 10^6/uL (3.85-5.65) L 02/19/23 03:53 Hgb 8.60 g/dL (11.27-16.99) L 02/19/23 03:53 Hct 28.6 % (37-53) L 02/19/23 03:53 MCV 86.7 fl (82-101) 02/19/23 03:53 MCH 26.1 pg (27-33) L 02/19/23 03:53 MCHC 30.1 g/dL (30-55) 02/19/23 03:53 RDW 17.9 % (12.1-15.1) H 02/19/23 03:53 Plt Count 170 10^3/cmm (157-399) 02/19/23 03:53 MPV 9.5 fL (7.4-10.4) 02/19/23 03:53 Neut % (Auto) 73.0 % 02/19/23 03:53 Lymph % (Auto) 9.8 % 02/19/23 03:53 [place] % (Auto) 14.2 % 02/19/23 03:53 Eos % (Auto) 1.4 % 02/19/23 03:53 Baso % (Auto) 0.7 % 02/19/23 03:53 Neut # (Auto) 3.20 10^3/uL (1.8-7.7) 02/19/23 03:53 Lymph # (Auto) 0.4 10^3/uL (0.8-4.8) L 02/19/23 03:53 [place] # (Auto) 0.6 10^3/uL (0.2-0.9) 02/19/23 03:53 Eos # (Auto) 0.1 10^3/uL (0.0-0.8) 02/19/23 03:53 Baso # (Auto) 0.0 10^3/uL (0.0-0.1) 02/19/23 03:53 Nucleated RBC % (auto) 0 % 02/19/23 03:53 Nucleated RBCs # 0.0 /100WBC 02/19/23 03:53 APTT 103.7 SECONDS (23.9-36.7) H 02/18/23 11:05 D-Dimer 0.91 ug/mLFEU (0-0.59) H 02/17/23 21:52 Sodium 139 mmol/L (136-145) 02/19/23 03:53 Potassium 3.7 mmol/L (3.5-5.1) 02/19/23 03:53 Chloride 104 mmol/L (98-107) 02/19/23 03:53 Carbon Dioxide 27 mmol/L (22-29) 02/19/23 03:53 Anion Gap 11.7 (5-19) 02/19/23 03:53 BUN 21 mg/dL (8-23) 02/19/23 03:53 Creatinine 1.1 mg/dL (0.7-1.2) 02/19/23 03:53 GFR Calculation Not Reportable 02/19/23 03:53 Glucose 90 mg/dL (65-115) 02/19/23 03:53 Estimat Average Glucose 100 02/17/23 21:52 Hemoglobin A1c 5.1 % (4.0-6.0) 02/17/23 21:52 Calculated Osmolality 291 mOsm/kg (285-295) 02/19/23 03:53 Calcium 8.6 mg/dL (8.5-10.5) 02/19/23 03:53 Phosphorus 2.9 mg/dL (2.5-4.5) 02/18/23 03:20 Magnesium 2.1 mg/dL (1.7-2.3) 02/18/23 03:20 Troponin T Baseline 27 ng/L (0-15) H 02/17/23 21:52 Troponin T 120 Minute 29.20 ng/L (0-15) H 02/17/23 23:05 Delta Troponin T 2.20 ABS# (0-10) 02/17/23 23:05 Troponin T Hi Sens 6Hr 35.50 ng/L (0-15) H 02/18/23 03:20 Troponin T Hi Sens 6Hr Delta 8.50 ng/L (0-12) 02/18/23 03:20 C-Reactive Protein 3.9 mg/L (0.0-4.9) 02/18/23 03:20 Vitamin B12 230 pg/mL (232-1245) L 02/17/23 21:52 Vitals Last Vital Signs Temp 98.1 F 02/19/23 07:29 Pulse 78 02/19/23 08:32 Resp 16 02/19/23 08:32 BP 143/70 02/19/23 07:29 Pulse Ox 95 02/19/23 08:32 O2 Del Method Room Air 02/19/23 08:32 Discharge Plan Discharge Patient Disposition: Home Health Service Condition: Stable Prescriptions: New Pacerone 200 mg Tablet 200 mg PO DAILY Qty: 30 0RF Continued (DME) MARK BRACE See Rx Instructions .Route .MEDSUPPLY Qty: 1 0RF Rx Instructions: As directed carvedilol 25 mg tablet 25 mg PO BID Qty: 180 3RF (DME) Modification to AFO Brace to the left See Rx Instructions .Route .MEDSUPPLY Qty: 1 0RF Rx Instructions: As directed by Willy and Dustin diclofenac sodium 1 % gel 4 g TOPICAL QID PRN (Reason: Pain) Qty: 100 2RF prednisone 5 mg tablet 10 mg PO QAM Qty: 60 3RF baclofen 10 mg tablet 10 mg PO BID Qty: 14 0RF hydralazine 50 mg tablet 50 mg PO TID Qty: 90 5RF atorvastatin 40 mg tablet 40 mg PO BEDTIME Qty: 90 3RF acetaminophen 500 mg Capsule 1,000 mg PO Q4H PRN (Reason: Pain) levothyroxine [Synthroid] 137 mcg tablet 137 mcg PO QAM Rx Instructions: PT STATES THIS MEDICATION MUST BE SYNTHROID, NOT LEVOTHYROXINE. magnesium L-lactate [Magtab] 84 mg Tablet Extended Release 84 mg PO BID 30 Days Qty: 60 1RF Eliquis 5 mg Tablet 5 mg PO BID@0900,2100 Qty: 60 2RF oxybutynin chloride 5 mg tablet extended release 24hr 5 mg PO QAM pregabalin 50 mg capsule 50 mg PO BID bumetanide 2 mg tablet 2 mg PO BID potassium chloride 10 mEq tablet extended release 20 meq PO BID albuterol sulfate 2.5 mg /3 mL (0.083 %) solution for nebulization 2.5 mg inhalation Q6H PRN (Reason: Shortness Of Breath) omeprazole 40 mg Capsule,Delayed Release(Dr/Ec) 40 mg PO QAM calcium carbonate 500 mg calcium (1,250 mg) Tablet 1,000 mg PO DAILY nitroglycerin [Nitrostat] 0.4 mg Tablet, Sublingual 0.4 mg SUBLINGUAL Q5M PRN (Reason: Chest Pain) Rx Instructions: do not exceed 3 doses per episode albuterol sulfate 90 mcg/actuation HFA aerosol inhaler 1 - 2 puff INHALATION Q4H PRN (Reason: Wheezing) bisacodyl 5 mg tablet 5 mg PO DAILY PRN (Reason: constipation) Qty: 30 0RF trazodone 50 mg tablet 50 mg PO BEDTIME Changed isosorbide mononitrate 30 mg Tablet Extended Release 24 Hr 60 mg PO BEDTIME Qty: 30 0RF Discharge Orders: Discharge Order (Routine); Ordered 02/19/23 Ordered By: Skye Sarkar Referrals: [facility] [Outside] Marsha Turner MD [Primary Care Provider] - 02/24/23 9:00 am (Your follow up appointment will be with Sonali Leahy NP, at Dr. Turner's Office. Thank you) Priyanka Rivas MD [Physician] - 1 month (Your Dr. Rivas follow up appointment will be scheduled during your Melba Puga appointment. Thank you.) Melba Puga FNP [Nurse Practitioner] - 02/26/23 10:00 am Discharge Diet: Cardiac Discharge Activity: Resume usual activity Patient Instructions: Amiodarone (By mouth) (Cordarone, Pacerone), Isosorbide Mononitrate (By mouth) (Imdur, Imdur ER, Ismo), Heart Failure (DC), CHF Stoplight, Opioid Safety, Post Heart Attack Stoplight Discharge Attestations Time Spent in Discharge Care*: less than 30 min Quality Metrics Clinical Quality Measures [ No reported AMI, CVA or VTE this stay] Coding Level of Care Code 56564 Diagnoses Chest pain on breathing R07.1 Chest pain type: chest pain on breathing Primary hypertension I10 Hypertension type: primary hypertension Mixed hyperlipidemia E78.2 Hyperlipidemia type: mixed hyperlipidemia Acquired hypothyroidism E03.9 Hypothyroidism type: acquired FUAD (obstructive sleep apnea) G47.33 Paroxysmal atrial fibrillation I48.0 Atrial fibrillation type: paroxysmal Chronic anticoagulation Z79.01
[2023-02-19] MEDS: acetaminophen 500 mg Tablet PO (10:41)
[2023-02-19 11:35] VITALS: PULSE 78; RESP 16; TEMP 36.9; O2SAT 95
--- NOTE | 2023-02-19 12:31 | P.PN_ITS ---
Subjective 2 Subjective: The patient is feeling better. He has been ambulating on telemetry and has no recurrence of chest pain. No new symptoms. No new arrhythmias. The vital signs remained stable. Vitals/I&O/Wt Last Vital Signs Temp 98.4 F 02/19/23 11:35 Pulse 78 02/19/23 11:35 Resp 16 02/19/23 11:35 BP 143/70 02/19/23 07:29 Pulse Ox 95 02/19/23 11:35 O2 Del Method Room Air 02/19/23 08:32 02/18/23 02/19/23 02/19/23 22:59 06:59 14:59 Intake Total 600 / 1480.65 240 / 1720.65 Output Total 300 / 550 450 / 1000 Balance 300 / 930.65 -210 / 720.65 Weight last 48 hrs Weight 263 lb Weight 263 lb 6.4 oz Weight 263 lb 6.4 oz Weight 260 lb Physical Exam 2 Narrative: GENERAL: The patient is alert and oriented times three. Not in any acute distress. HEENT: No significant pallor, icterus or lymphadenopathy.Oral cavity: There are no mucous membrane lesions. NECK: Trachea appears to be central. No masses noted. No JVD or thyromegaly appreciated. RESPIRATORY: Chest is symmetrical. No intercostals muscle retraction or any accessory muscle activation. There is no chest wall tenderness. Breath sounds are heard bilaterally. No rales or rhonchi heard. No evidence of any consolidation. BREASTS: Deferred. HEART: The heart sounds are normal. No S3 or S4. No significant murmurs. No pericardial rub ABDOMEN: No vessel pulsations or distention. No tenderness. No organomegaly appreciated. Bowel sounds are normally heard. : Deferred. RECTAL: Deferred. LYMPHATIC: No lymphadenopathy noted in the neck. EXTREMITIES: No edema or cyanosis. No clubbing. MUSCULOSKELETAL: No acute joint deformities or swelling SKIN: There are no significant rashes or ecchymosis NEUROPSYCHIATRIC: The patient is alert and oriented x3. Appears to be in a good mood. No tremors or rigidity noted. Data 02/19/23 03:53 02/19/23 03:53 Other Labs: Laboratory Last Values WBC 4.38 10^3/uL (3.29-11.43) 02/19/23 03:53 RBC 3.30 10^6/uL (3.85-5.65) L 02/19/23 03:53 Hgb 8.60 g/dL (11.27-16.99) L 02/19/23 03:53 Hct 28.6 % (37-53) L 02/19/23 03:53 MCV 86.7 fl (82-101) 02/19/23 03:53 MCH 26.1 pg (27-33) L 02/19/23 03:53 MCHC 30.1 g/dL (30-55) 02/19/23 03:53 RDW 17.9 % (12.1-15.1) H 02/19/23 03:53 Plt Count 170 10^3/cmm (157-399) 02/19/23 03:53 MPV 9.5 fL (7.4-10.4) 02/19/23 03:53 Neut % (Auto) 73.0 % 02/19/23 03:53 Lymph % (Auto) 9.8 % 02/19/23 03:53 [place] % (Auto) 14.2 % 02/19/23 03:53 Eos % (Auto) 1.4 % 02/19/23 03:53 Baso % (Auto) 0.7 % 02/19/23 03:53 Neut # (Auto) 3.20 10^3/uL (1.8-7.7) 02/19/23 03:53 Lymph # (Auto) 0.4 10^3/uL (0.8-4.8) L 02/19/23 03:53 [place] # (Auto) 0.6 10^3/uL (0.2-0.9) 02/19/23 03:53 Eos # (Auto) 0.1 10^3/uL (0.0-0.8) 02/19/23 03:53 Baso # (Auto) 0.0 10^3/uL (0.0-0.1) 02/19/23 03:53 Nucleated RBC % (auto) 0 % 02/19/23 03:53 Nucleated RBCs # 0.0 /100WBC 02/19/23 03:53 APTT 103.7 SECONDS (23.9-36.7) H 02/18/23 11:05 D-Dimer 0.91 ug/mLFEU (0-0.59) H 02/17/23 21:52 Sodium 139 mmol/L (136-145) 02/19/23 03:53 Potassium 3.7 mmol/L (3.5-5.1) 02/19/23 03:53 Chloride 104 mmol/L (98-107) 02/19/23 03:53 Carbon Dioxide 27 mmol/L (22-29) 02/19/23 03:53 Anion Gap 11.7 (5-19) 02/19/23 03:53 BUN 21 mg/dL (8-23) 02/19/23 03:53 Creatinine 1.1 mg/dL (0.7-1.2) 02/19/23 03:53 GFR Calculation Not Reportable 02/19/23 03:53 Glucose 90 mg/dL (65-115) 02/19/23 03:53 Estimat Average Glucose 100 02/17/23 21:52 Hemoglobin A1c 5.1 % (4.0-6.0) 02/17/23 21:52 Calculated Osmolality 291 mOsm/kg (285-295) 02/19/23 03:53 Calcium 8.6 mg/dL (8.5-10.5) 02/19/23 03:53 Phosphorus 2.9 mg/dL (2.5-4.5) 02/18/23 03:20 Magnesium 2.1 mg/dL (1.7-2.3) 02/18/23 03:20 Troponin T Baseline 27 ng/L (0-15) H 02/17/23 21:52 Troponin T 120 Minute 29.20 ng/L (0-15) H 02/17/23 23:05 Delta Troponin T 2.20 ABS# (0-10) 02/17/23 23:05 Troponin T Hi Sens 6Hr 35.50 ng/L (0-15) H 02/18/23 03:20 Troponin T Hi Sens 6Hr Delta 8.50 ng/L (0-12) 02/18/23 03:20 C-Reactive Protein 3.9 mg/L (0.0-4.9) 02/18/23 03:20 Vitamin B12 230 pg/mL (232-1245) L 02/17/23 21:52 A&P Assessment and plan (1) Chest pain: Most likely the chest pain is musculoskeletal in origin. At this point, the patient may not require any further nvestigation. I would discontinue the aspirin and Plavix. Also may discontinue the Lipitor. Qualifiers: Chest pain type: chest pain on breathing Qualified Code(s): R07.1 - Chest pain on breathing (2) HTN (hypertension): The blood pressure seems to be in the normal range. May continue on the current medication. Qualifiers: Hypertension type: primary hypertension Qualified Code(s): I10 - Essential (primary) hypertension (3) Hyperlipidemia: May continue on the current medications. Qualifiers: Hyperlipidemia type: mixed hyperlipidemia Qualified Code(s): E78.2 - Mixed hyperlipidemia (4) Hypothyroid: Clinically euthyroid. Continue on the thyroid supplement. Qualifiers: Hypothyroidism type: acquired Qualified Code(s): E03.9 - Hypothyroidism, unspecified (5) FUAD (obstructive sleep apnea): May continue on the CPAP. (6) Atrial fibrillation: The patient may be put back on the Eliquis. Qualifiers: Atrial fibrillation type: paroxysmal Qualified Code(s): I48.0 - Paroxysmal atrial fibrillation (7) Chronic anticoagulation: No bleeding complication. Patient has chronic anemia. No recent changes. Plan Please make an appointment to be seen in the clinic in a week, by the nurse practitioner I may see him in the office i as scheduled Attestations 2 Medical Necessity Statement*: Possible discharge home today Coding Level of Care Code 49283 Diagnoses Chest pain on breathing R07.1 Chest pain type: chest pain on breathing Primary hypertension I10 Hypertension type: primary hypertension Mixed hyperlipidemia E78.2 Hyperlipidemia type: mixed hyperlipidemia Acquired hypothyroidism E03.9 Hypothyroidism type: acquired FUAD (obstructive sleep apnea) G47.33 Paroxysmal atrial fibrillation I48.0 Atrial fibrillation type: paroxysmal Chronic anticoagulation Z79.01
== END 2023-02-19 11:28 | disposition home health service (06) | DRG 313 ==
LOC: ER 21:37 → CSU 21:48
PROVIDERS: Admitting Provider Internal Medicine; Emergency Provider Internal Medicine; PCP Internal Medicine; Visit Provider Internal Medicine
DX: R07.89 Other chest pain (principal); I50.32 Chronic diastolic (congestive) heart failure; I25.10 Atherosclerotic heart disease of native coronary artery without angina pectoris; I48.0 Paroxysmal atrial fibrillation; Z79.01 Long term (current) use of anticoagulants; I87.2 Venous insufficiency (chronic) (peripheral); G89.29 Other chronic pain; Z86.73 Personal history of transient ischemic attack (TIA), and cerebral infarction without residual deficits; I11.0 Hypertensive heart disease with heart failure; Z86.16 Personal history of COVID-19; K31.84 Gastroparesis; K21.9 Gastro-esophageal reflux disease without esophagitis; G47.33 Obstructive sleep apnea (adult) (pediatric); Z99.89 Dependence on other enabling machines and devices; E78.2 Mixed hyperlipidemia; J44.9 Chronic obstructive pulmonary disease, unspecified; E03.9 Hypothyroidism, unspecified; D64.9 Anemia, unspecified; M06.00 Rheumatoid arthritis without rheumatoid factor, unspecified site; Z98.1 Arthrodesis status
CPT/HCPCS: 36415; 71045; 80048; 80053; 82607; 83036; 83735; 83880; 84100; 84484; 85025; 85378; 85610; 85730; 86140; 93005; 94640; 96365; 96367; 96375; 96376; 97161; 97530; 99285; C8929; C9113; J1644; J3490; J7512

== ENCOUNTER → 2023-02-26 09:47 | Outpatient (BNVA) | payer MEDICARE, OTHER, SELFPAY | PROVIDERS: PCP Internal Medicine; Visit Provider Nurse Practitioner Family | DX: I11.0 Hypertensive heart disease with heart failure (principal); I50.32 Chronic diastolic (congestive) heart failure; I25.10 Atherosclerotic heart disease of native coronary artery without angina pectoris | CPT/HCPCS: 99214 ==

== ENCOUNTER → 2023-03-04 09:01 | Outpatient (BNVA) | payer MEDICARE, OTHER, SELFPAY | PROVIDERS: PCP Internal Medicine; Visit Provider Orthopaedic Surgery | DX: Z47.89 Encounter for other orthopedic aftercare (principal); Z98.1 Arthrodesis status | CPT/HCPCS: 72100; 99024 ==

== ENCOUNTER 2023-03-11 07:54 | Oncology outpatient (recurring) (ONCR) | payer MEDICARE, OTHER, SELFPAY ==
[2023-03-11 08:04] VITALS: BP 102/56; PULSE 76; RESP 18; TEMP 36.7; O2SAT 96
[2023-03-11] MEDS: acetaminophen 325 mg Tablet 650 MG PO (08:49)
[2023-03-11] MEDS: sodium chloride 0.9% 250 ML 75 ML IV (08:51)
[2023-03-11] MEDS: diphenhydrAMINE 50 mg/mL SDV 1mL 25 MG IVP (08:56)
[2023-03-11] MEDS: methylPREDNISolone sod succ 40 mg/mL INJ IVP (08:59)
[2023-03-11] MEDS: abatacept 1,000 MG in sodium chloride 0.9% (100 ml) 100 ML 200 MG IV (09:15)
[2023-03-11 10:10] VITALS: BP 121/67; PULSE 57; RESP 18; TEMP 36.8; O2SAT 97
== END 2023-03-14 23:59 | disposition home or self-care (01) ==
LOC: ONCMED 07:54
PROVIDERS: PCP Internal Medicine; Visit Provider Internal Medicine Rheumatology
DX: M06.042 Rheumatoid arthritis without rheumatoid factor, left hand (principal); M06.041 Rheumatoid arthritis without rheumatoid factor, right hand
CPT/HCPCS: 96375; 96413; J0129; J1200; J2920; J7050

== ENCOUNTER → 2023-03-18 13:13 | Outpatient (BNVA) | payer MEDICARE, OTHER, SELFPAY | PROVIDERS: PCP Internal Medicine; Visit Provider Dermatology | DX: L57.8 Other skin changes due to chronic exposure to nonionizing radiation (principal); L57.0 Actinic keratosis; L21.8 Other seborrheic dermatitis; L81.4 Other melanin hyperpigmentation; Z85.828 Personal history of other malignant neoplasm of skin; L30.0 Nummular dermatitis | CPT/HCPCS: 10060; 17004; 99214 ==

== ENCOUNTER → 2023-03-25 08:38 | Outpatient (BNVA) | payer MEDICARE, OTHER, SELFPAY | PROVIDERS: PCP Internal Medicine; Referring Provider Nurse Practitioner Family; Visit Provider Internal Medicine Pulmonary Disease | DX: R06.02 Shortness of breath (principal); D64.9 Anemia, unspecified; I50.32 Chronic diastolic (congestive) heart failure | CPT/HCPCS: 99204 ==

== ENCOUNTER 2023-03-26 10:43 | Outpatient (CLI) | payer MEDICARE, OTHER, SELFPAY ==
[2023-03-26 11:43] LABS: Reticulocyte % 1.6 % (0.5-2.0)
[2023-03-26 11:44] LABS: Basophils # 0.1 10^3/uL (0.0-0.1); Basophils % 0.8 %; Eosinophils # 0.1 10^3/uL (0.0-0.8); Eosinophils % 0.8 %; Hematocrit 31.7 % (37-53); Lymphocytes # 0.9 10^3/uL (0.8-4.8); Lymphocytes % 12.5 %; Mean Corpuscular HGB Conc 30.9 g/dL (30-55); Mean Corpuscular Hemoglobin 25.9 pg (27-33); Mean Corpuscular Volume 83.6 fl (82-101); Mean Platelet Volume 9.3 fL (7.4-10.4); Monocytes # 1.3 10^3/uL (0.2-0.9); Monocytes % 16.9 %; Neutrophils # 5.11 10^3/uL (1.8-7.7); Neutrophils % 68.5 %; Nucleated Red Blood Cells % 0 %; Platelet Count 266 10^3/cmm (157-399); Red Blood Count 3.79 10^6/uL (3.85-5.65); Red Cell Distribution Width 17.3 % (12.1-15.1); White Blood Count 7.46 10^3/uL (3.29-11.43)
[2023-03-26 12:20] LABS: Ferritin 35 ng/mL (30-400); Folate Level 11.4 ng/mL (4.5-32.2); Iron 37 ug/dL (59-158); Lactate Dehydrogenase 512 U/L (135-225); Percent Saturation 10.2 % (20-50); Total Iron Binding Capacity 362 mcg/dl; Transferrin 337 mg/dL (200-360); Unsaturated Iron Binding 325 ug/dL (112-347); Vitamin B12 256 pg/mL (232-1245)
== END 2023-03-26 10:44 | disposition home or self-care (01) ==
LOC: LAB 10:44
PROVIDERS: PCP Internal Medicine; Visit Provider Internal Medicine Pulmonary Disease
DX: D64.9 Anemia, unspecified (principal); I50.32 Chronic diastolic (congestive) heart failure
CPT/HCPCS: 36415; 82607; 82728; 82746; 83540; 83550; 83615; 84466; 85025; 85045

== ENCOUNTER → 2023-03-30 11:22 | Outpatient (BNVA) | payer MEDICARE, OTHER, SELFPAY | PROVIDERS: PCP Internal Medicine; Visit Provider Surgery | DX: L72.9 Follicular cyst of the skin and subcutaneous tissue, unspecified (principal) | CPT/HCPCS: 99204; 99214 ==

== ENCOUNTER → 2023-03-31 12:36 | Outpatient (BNVA) | payer MEDICARE, OTHER, SELFPAY | PROVIDERS: PCP Internal Medicine; Visit Provider Internal Medicine Rheumatology | DX: M06.041 Rheumatoid arthritis without rheumatoid factor, right hand (principal); M06.042 Rheumatoid arthritis without rheumatoid factor, left hand; Z79.899 Other long term (current) drug therapy; Z71.89 Other specified counseling; R76.8 Other specified abnormal immunological findings in serum | CPT/HCPCS: 99214 ==

== ENCOUNTER 2023-04-01 10:18 | Inpatient (IN) | payer MEDICARE, OTHER, SELFPAY ==
[2023-04-01] VITALS (10 sets, daily range): BP systolic 122–163; BP diastolic 65–83; PULSE 60–66; RESP 16–18; TEMP 36.9–37.4; O2SAT 93–99; BMI 35.6
--- NOTE | 2023-04-01 10:26 | ECG_ITS ---
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 Measurements Intervals [place] Rate: 65 P: 261 ND: 154 QRS: -68 QRSD: 121 T: 75 QT: 361 QTc: 375 Interpretive Statements ECTOPIC ATRIAL RHYTHM LEFT VENTRICULAR HYPERTROPHY AND ST-T CHANGE [VOLTAGE CRITERIA PLUS ST/T ABNORMALITY] POSSIBLE ANTERIOR MYOCARDIAL INFARCTION , PROBABLY OLD [30 ms Q WAVE IN V3/V4, OR R < 0.2 mV IN V4] INFERIOR MYOCARDIAL INFARCTION , PROBABLY OLD [40+ ms Q WAVE AND/OR ST/T ABNORMALITY IN II/aVF] Compared to ECG 02/17/2023 23:26:40 Ectopic atrial rhythm now present Left ventricular hypertrophy now present ST (T wave) deviation now present Intraventricular conduction delay no longer present Electronically Signed On 04-01-2023 17:50:14 FOOD SAFETY MANAGER by Dario Nuñez M.D. [id number]
--- NOTE | 2023-04-01 10:26 | XR_ITS ---
WS: [id number] Exam: XR chest 1V portable [id number] Date/Time of Exam: 04/01/2023 10:43 AM Reason For Exam: Dyspnea Comparison 02/17/2023. The lungs are clear and fully expanded. Heart size top limits normal. The mediastinum is normal in co ntour. Extensive hardware in the visualized cervical and upper thoracic spine. Additional hardware in the mid thoracic spine extending into the upper lumbar region. No pleural effusions. No acute bony c hanges. IMPRESSION: 1. No acute cardiopulmonary finding. No change.
[2023-04-01 10:39] LABS: Basophils # 0.1 10^3/uL (0.0-0.1); Basophils % 0.7 %; Eosinophils # 0.1 10^3/uL (0.0-0.8); Eosinophils % 0.9 %; Hematocrit 30.9 % (37-53); Lymphocytes # 0.6 10^3/uL (0.8-4.8); Lymphocytes % 8.8 %; Mean Corpuscular HGB Conc 31.4 g/dL (30-55); Mean Corpuscular Volume 82.8 fl (82-101); Mean Platelet Volume 9.9 fL (7.4-10.4); Monocytes # 0.8 10^3/uL (0.2-0.9); Monocytes % 11.2 %; Neutrophils # 5.29 10^3/uL (1.8-7.7); Neutrophils % 77.8 %; Nucleated Red Blood Cells % 0 %; Platelet Count 280 10^3/cmm (157-399); Red Blood Count 3.73 10^6/uL (3.85-5.65); Red Cell Distribution Width 17.1 % (12.1-15.1)
[2023-04-01 10:48] LABS: INR 1.34 (0.8-1.2)
[2023-04-01 10:53] LABS: Troponin(5th) Baseline 52 ng/L (0-15)
[2023-04-01 11:11] LABS: Influenza A by IFA negative (Negative); Influenza B by IFA negative (Negative)
[2023-04-01 11:15] LABS: Alanine Aminotransferase 29 U/L (0-41); Alkaline Phosphatase 90 U/L (40-130); Anion Gap 15.6 (5-19); Aspartate Amino Transferase 31 U/L (0-40); Blood Urea Nitrogen 40 mg/dL (8-23); Calcium 9.1 mg/dL (8.5-10.5); Carbon Dioxide 37 mmol/L (22-29); Chloride 89 mmol/L (98-107); Globulin 2.4 g/dL (1.3-4.6); Glucose 143 mg/dL (65-115); NT Pro B Type Natriuretic Pept 153 pg/mL (0-450); Osmolality Calculated 300 mOsm/kg (285-295); Sodium 139 mmol/L (136-145); Total Bilirubin 0.4 mg/dL (0.15-1.2); Total Protein 6.4 g/dL (6.6-8.7)
[2023-04-01 11:20] LABS: SARS Covid-2 Antigen Negative (Negative)
[2023-04-01 11:21] LABS: Potassium 2.6 mmol/L (3.5-5.1)
[2023-04-01] MEDS: potassium chloride ER 20 mEq Tablet 40 MEQ PO (11:52)
--- NOTE | 2023-04-01 12:22 | ECG_ITS ---
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 Measurements Intervals [place] Rate: 62 P: -71 ID: [id number] QRS: -67 QRSD: 128 T: 37 QT: 473 QTc: 481 Interpretive Statements SINUS RHYTHM MODERATE VOLTAGE CRITERIA FOR LVH, CONSIDER NORMAL VARIANT [MEETS CRITERIA IN ONE OF: R(aVL), S(V1), R(V5), R(V5/V6)+S(V1)] POSSIBLE ANTERIOR MYOCARDIAL INFARCTION , PROBABLY OLD [30 ms Q WAVE IN V3/V4, OR R < 0.2 mV IN V4] INFERIOR MYOCARDIAL INFARCTION , PROBABLY OLD [40+ ms Q WAVE AND/OR ST/T ABNORMALITY IN II/aVF] Compared to ECG 02/17/2023 23:26:40 Myocardial infarct finding now present First degree AV block no longer present Intraventricular conduction delay no longer present Electronically Signed On 04-01-2023 17:51:40 CHARGEBACK ANALYST by Dario Nuñez M.D. [email or web address] general [email or web address]/store/[id number]
[2023-04-01 12:57] LABS: Troponin 5 2HR 49.37 ng/L (0-15); Troponin 5 2HR Delta -2.63 ABS# (0-10)
--- NOTE | 2023-04-01 13:25 | P.HP_ITS ---
Providers/Chief Complaint 2 Primary Care Provider: Marsha Turner MD Chief Complaint: sob, dizziness History of Present Illness Kojo Marinelli is a 77 year old male with history of CHF, A-fib on chronic anticoagulation, was discharged a month ago after evaluation chest pain, stress test was unremarkable, Imdur was increased to 60 mg daily presented today with weakness lethargy chest discomfort. In the ER he has been diagnosed with acute on chronic kidney disease and hypokalemia. Negative delta troponin EKG without ischemic changes I do not agree with junctional rhythm. Patient is stating that he has been extremely constipated he has not gone to the bathroom for quite some time despite taking Dulcolax, he is compliant with his medications he has not noticed any chest pain at all, he has not noticed any nausea vomiting fever or rigors. He is endorsing some resting tremors and shortness of breath on minimal activity and conversation. He Dr. Good recommended CT lung. Patient is stating that he has been experiencing some discomfort medial side of his thighs radiating towards left groin He does have osteoarthritis and take steroids on daily basis Review of Systems 2 Const: Denies: fever(s) Eyes: Denies: change in vision ENMT: Denies: throat pain Card: Denies: chest pain Resp: Reports: dyspnea GI: Reports: constipation Medications/Allergies Home Medications Medication Instructions Recorded Confirmed Last Taken Type acetaminophen 500 mg capsule 1,000 mg PO BID 02/06/20 04/01/23 04/01/23 History MARK BRACE #1 ea 08/01/20 04/01/23 Unknown Rx carvedilol 25 mg tablet 25 mg PO BID #180 tabs 03/24/21 04/01/23 04/01/23 Rx Modification to AFO Brace to the #1 ea 02/02/22 04/01/23 Unknown Rx left atorvastatin 40 mg tablet 40 mg PO BEDTIME #90 tabs 06/26/22 04/01/23 03/31/23 Rx levothyroxine 137 mcg tablet 137 mcg PO QAM 10/14/22 04/01/23 04/01/23 History (Synthroid) apixaban 5 mg tablet (Eliquis) 5 mg PO BID@0900,2100 #60 tabs 11/12/22 04/01/23 04/01/23 Rx magnesium L-lactate 84 mg 84 mg PO BID 30 days #60 tabs 11/12/22 04/01/23 04/01/23 Rx tablet,extended release (Magtab) oxybutynin chloride 5 mg 5 mg PO QAM 12/03/22 04/01/23 04/01/23 History tablet,extended release 24 hr pregabalin 50 mg capsule 50 mg PO BID 12/03/22 04/01/23 04/01/23 History baclofen 10 mg tablet 10 mg PO BID #14 tabs 12/17/22 04/01/23 04/01/23 Rx bumetanide 2 mg tablet 2 mg PO BID 12/18/22 04/01/23 04/01/23 History potassium chloride 10 mEq 20 meq PO BID 12/18/22 04/01/23 04/01/23 History tablet,extended release albuterol sulfate 2.5 mg/3 mL 2.5 mg inhalation Q6H PRN 12/22/22 04/01/23 Unknown History (0.083 %) solution for nebulization Shortness Of Breath albuterol sulfate 90 mcg/actuation 1 - 2 puff inhalation Q4H PRN 12/22/22 04/01/23 Unknown History aerosol inhaler Wheezing calcium carbonate 500 mg calcium 1,000 mg PO DAILY 12/22/22 04/01/23 04/01/23 History (1,250 mg) tablet nitroglycerin 0.4 mg sublingual 0.4 mg sublingual Q5M PRN Chest 12/22/22 04/01/23 02/17/23 History tablet (Nitrostat) Pain omeprazole 40 mg capsule,delayed 40 mg PO QAM 12/22/22 04/01/23 04/01/23 History release bisacodyl 5 mg tablet 5 mg PO DAILY PRN constipation #30 12/24/22 04/01/23 Unknown Rx tabs hydralazine 50 mg tablet 50 mg PO TID #90 tabs 02/11/23 04/01/23 04/01/23 Rx amiodarone 200 mg tablet (Pacerone) 200 mg PO DAILY #30 tabs 02/19/23 04/01/23 04/01/23 Rx isosorbide mononitrate 30 mg 60 mg (2 x 30 mg) PO BEDTIME #30 02/19/23 04/01/23 03/31/23 Rx tablet,extended release 24 hr tabs diclofenac sodium 1 % topical gel 4 g topical QID PRN Pain #100 grams 03/31/23 04/01/23 Unknown Rx liothyronine 5 mcg tablet 5 mcg PO BID 04/01/23 04/01/23 04/01/23 History metolazone 2.5 mg tablet 2.5 mg PO BID 04/01/23 04/01/23 04/01/23 History prednisone 10 mg tablet 10 mg PO DAILY 04/01/23 04/01/23 04/01/23 History Allergies Allergy/AdvReac Type Severity Reaction Status Date / Time metoclopramide [From Reglan] Allergy Unknown Verified 04/01/23 11:16 morphine Allergy ALGY-Hives Verified 04/01/23 11:16 tamsulosin [From Flomax] Allergy ADR/ALGY-Hy Verified 04/01/23 11:16 potension zolpidem [From Ambien] Allergy Unknown Verified 04/01/23 11:16 hydrocodone AdvReac Mild Hypotension Verified 04/01/23 11:16 oxycodone AdvReac Mild Hypotension Verified 04/01/23 11:16 paper tape Allergy tears skin Uncoded 03/31/23 13:25 off PFSH Acute 2 PFSH: Medical History Unstable angina CAD (coronary artery disease) Seroma, postoperative Spinal stenosis, thoracic Atrial fibrillation Degenerative disc disease, thoracic History of prostate cancer Urgency incontinence Renal cyst Acquired calcaneovarus deformity of both feet Ascending aortic aneurysm Lumbar stenosis with neurogenic claudication Orthostatic hypotension Venous insufficiency of both lower extremities Acute blood loss as cause of postoperative anemia Anemia Failed back surgical syndrome DDD (degenerative disc disease), lumbar Chronic back pain History of TIA (transient ischemic attack) Radiation cystitis Carotid artery disease Hx of cataract Closed fracture of right patella CHF (congestive heart failure), NYHA class III EF 10/2022 43% on stress test, 50% on echo COVID-2020 Metatarsus adductus Osteoarthritis, generalized Seronegative rheumatoid arthritis High risk medication use prednisone and leflunomide 12/2022 Positive CORBY (antinuclear antibody) EDUARDO was negative in 2013 Gastroparesis GERD (gastroesophageal reflux disease) Cervical postlaminectomy syndrome FUAD (obstructive sleep apnea) Hyperlipidemia HTN (hypertension) Hypothyroid COPD (chronic obstructive pulmonary disease) H/O malignant neoplasm of skin Surgical History S/P spinal fusion 02/2021 - T9-S1 Dr Delarosa History of penile implant Status post spinal arthrodesis S/P lumbar fusion Status post revision of total replacement of right knee History of total bilateral knee replacement (TKR) History of cardiac cath ~2012 nonobstructive 10/2022 stress test EF 43 %, small areas prior infarcts RCA and LAD territories History of hip surgery RIGHT 04/11/19 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 History of total right hip arthroplasty History of total left hip arthroplasty History of abdominal aortic aneurysm (AAA) repair History of tonsillectomy and adenoidectomy Hx of appendectomy History of back surgery multiple procedures (>10) H/O neck surgery x 2 Hx of cholecystectomy H/O colonoscopy 2011 H/O esophagogastroduodenoscopy 2011 Family History Mother , Age 81 Bleeding disorder Clotting disorder CAD (coronary artery disease) 60s Cancer Stroke Father , Age 94 CAD (coronary artery disease) 80 Dementia Daughter Chronic kidney disease (CKD) Brother CAD (coronary artery disease) [place] Cancer Denies family history of Diabetes Suicide Anesthesia complication Lung disease Social History Smoking and tobacco/nicotine status: never used tobacco/nicotine Alcohol intake: never Substance/Drug Use: never Household members: spouse Marital status: Current occupational status: retired Special danny needs: No Agree to transfusion: Yes Vitals/I&O/Wt Last Vital Signs Temp 98.4 F 04/01/23 10:40 Pulse 62 04/01/23 13:00 Resp 16 04/01/23 13:00 BP 163/83 04/01/23 13:00 Pulse Ox 95 04/01/23 13:00 O2 Del Method Nasal Cannula 04/01/23 13:00 O2 Flow Rate 2 04/01/23 13:00 Weight last 48 hrs Weight 119.295 kg Physical Exam 2 Narrative: Clinical signs of fluid overload Currently 1.5 L GCS 15 Nonfocal neuroexam Abdomen distended nontender Pleasant cooperative A-fib without RVR Significant edema of lower extremities Pleasant and cooperative Nonfocal neuroexam Data 04/01/23 10:06 04/01/23 10:06 A&P Assessment and plan (1) High risk medication use: (2) HTN (hypertension): Qualifiers: Hypertension type: primary hypertension Qualified Code(s): I10 - Essential (primary) hypertension (3) CHF (congestive heart failure), NYHA class III: Qualifiers: Congestive heart failure type: diastolic Congestive heart failure chronicity: chronic Qualified Code(s): I50.32 - Chronic diastolic (congestive) heart failure (4) Atrial fibrillation: Qualifiers: Atrial fibrillation type: paroxysmal Qualified Code(s): I48.0 - Paroxysmal atrial fibrillation (5) Peripheral arterial disease: (6) Chronic anticoagulation: (7) Seronegative rheumatoid arthritis: (8) FUAD (obstructive sleep apnea): (9) Constipation: Plan Acute on chronic kidney disease Hold metolazone Continue Bumex at lower dose Change Eliquis dose Clinical signs of fluid overload Continue diuresis Hypokalemia related to use of diuretics Replenish potassium Check magnesium level Patient has had multiple evaluation in the past with chest pain, stress test unremarkable which was done recently, Never related troponin, no active chest Chronic shortness of breath will request CT chest Follows up with Dr. Mora outpatient Chronic arthritis, left groin pain could be related to hip arthritis Constipation: We will give lactulose, milk of molasses enema medical magnesium and Full code Cardiac diet Patient uses BiPAP at nighttime for sleep apnea Attestations 2 Medical Necessity Statement*: Anticipate discharge within 48 hours Diagnoses High risk medication use Z79.899 Primary hypertension I10 Hypertension type: primary hypertension Chronic diastolic congestive heart failure, NYHA class 3 I50.32 Congestive heart failure type: diastolic Congestive heart failure chronicity: chronic Paroxysmal atrial fibrillation I48.0 Atrial fibrillation type: paroxysmal Peripheral arterial disease I73.9 Chronic anticoagulation Z79.01 Seronegative rheumatoid arthritis M06.00 FUAD (obstructive sleep apnea) G47.33 Constipation K59.00
--- NOTE | 2023-04-01 13:26 | W.ED.SOB ---
HPI - SOB/Dyspnea General: Chief Complaint: ER Hold Stated Complaint: sob, dizziness Time Seen by Provider: 04/01/23 10:24 History of Present Illness: HPI Narrative: 77-year-old male presents to the emergency department via EMS personnel with complaints that he has had low blood pressure. He states his physical therapist at home checked his blood pressure and was noted that it was low and the patient was having intermittent dizziness and states he feels more short of breath on exertion. He states he does have chest pressure but states he does not have active chest pain. He does have lower extremity edema bilaterally. He does appear mildly dyspneic. Associated symptoms: Reports dizziness Review of Systems General: Reports: 10 or more systems reviewed and unremarkable except in HPI and below Resp: Reports: dyspnea and non-productive cough Neuro: Reports: dizziness PFSH ED PFSH: Medical History Unstable angina CAD (coronary artery disease) Seroma, postoperative Spinal stenosis, thoracic Atrial fibrillation Degenerative disc disease, thoracic History of prostate cancer Urgency incontinence Renal cyst Acquired calcaneovarus deformity of both feet Ascending aortic aneurysm Lumbar stenosis with neurogenic claudication Orthostatic hypotension Venous insufficiency of both lower extremities Acute blood loss as cause of postoperative anemia Anemia Failed back surgical syndrome DDD (degenerative disc disease), lumbar Chronic back pain History of TIA (transient ischemic attack) Radiation cystitis Carotid artery disease Hx of cataract Closed fracture of right patella CHF (congestive heart failure), NYHA class III EF 10/2022 43% on stress test, 50% on echo COVID-19 2020 Metatarsus adductus Osteoarthritis, generalized Seronegative rheumatoid arthritis High risk medication use prednisone and leflunomide 12/2022 Positive CORYB (antinuclear antibody) EDUARDO was negative in 2013 Gastroparesis GERD (gastroesophageal reflux disease) Cervical postlaminectomy syndrome FUAD (obstructive sleep apnea) Hyperlipidemia HTN (hypertension) Hypothyroid COPD (chronic obstructive pulmonary disease) H/O malignant neoplasm of skin Surgical History S/P spinal fusion 02/2021 - T9-S1 Dr Delarosa History of penile implant Status post spinal arthrodesis S/P lumbar fusion Status post revision of total replacement of right knee History of total bilateral knee replacement (TKR) History of cardiac cath ~2012 nonobstructive 10/2022 stress test EF 43 %, small areas prior infarcts RCA and LAD territories History of hip surgery RIGHT 04/11/19 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 History of total right hip arthroplasty History of total left hip arthroplasty History of abdominal aortic aneurysm (AAA) repair History of tonsillectomy and adenoidectomy Hx of appendectomy History of back surgery multiple procedures (>10) H/O neck surgery x 2 Hx of cholecystectomy H/O colonoscopy 2011 H/O esophagogastroduodenoscopy 2011 Family History Mother , Age 81 Bleeding disorder Clotting disorder CAD (coronary artery disease) 60s Cancer Stroke Father , Age 94 CAD (coronary artery disease) 80 Dementia Daughter Chronic kidney disease (CKD) Brother CAD (coronary artery disease) [place] Cancer Denies family history of Diabetes Suicide Anesthesia complication Lung disease Social History Smoking and tobacco/nicotine status: never used tobacco/nicotine Alcohol intake: never Substance/Drug Use: never Household members: spouse Marital status: Current occupational status: retired Special danny needs: No Agree to transfusion: Yes Physical Exam Narrative: EXAM NARRATIVE: Constitutional: the patient appears well nourished and of normal development. Vital signs as documented. Mild respiratory distress. Alert and oriented-to person, place, time and situation. Head, eyes, ears, nose, mouth, throat: Normocephalic, atraumatic. Pupils-equal, round, reactive to light. No scleral icterus. Normal-appearing external ears. Normal appearing nasal turbinates, no drainage. No obvious oral lesions, posterior oropharynx without erythema or exudates. Neck: Supple, trachea is midline, no lymphadenopathy, no jugular venous distension, thyromegaly, or carotid bruits. Carotid upstrokes are brisk bilaterally. Lungs: Intermittent expiratory wheezes.. Symmetrical rise and fall of chest, no obvious signs of increased work of breathing at present. Cardiac: Regular rate and rhythm, positive S1, S2. No murmurs, rubs or gallops that I can appreciate Abdomen: Soft, non-tender to palpation, normal active bowel sounds to all quadrants. No palpable masses, no organomegaly and abdominal bruits. Extremities: 2+ pulses in the upper extremities that are equal bilaterally, 2+ pulses in the lower extremities that are equal bilaterally. Non-edematous. Moves all extremities well, sensation to all extremities are noted. Skin: Warm, dry, intact. Course Vital Signs: Vital signs: Vital Signs Temperature 98.1 F 04/03/23 16:00 Pulse Rate 65 04/03/23 16:00 Respiratory Rate 18 04/03/23 10:00 Blood Pressure 106/90 04/03/23 16:00 Pulse Oximetry 96 04/03/23 16:00 Oxygen Delivery Me thod Nasal Cannula 04/03/23 16:00 Oxygen Flow Rate 2 04/03/23 10:00 MDM - SOB/Dyspnea Medical Decision Making 77-year-old male presents with dizziness, dyspnea on exertion and hypotension that was presented to him by his physical therapist at his home. I will obtain serial cardiac enzymes and EKG as well as chest x-ray CBC and CMP influenza a and B screen and COVID-19 for additional evaluation. I will also obtain a chest x-ray given his exertional dyspnea. Medical Records I reviewed the patient's medical records. Lab Data I reviewed the patient's lab results. 04/03/23 04:15 04/03/23 08:56 Labs/Radiology: Radiology Impressions Venous Duplex 04/03/23 12:09 IMPRESSION: 1. No sonographic evidence of deep venous thrombosis in either lower extremity. Laboratory Results WBC 6.80 10^3/uL (3.29-11.43) 04/01/23 10:06 RBC 3.73 10^6/uL (3.85-5.65) L 04/01/23 10:06 Hgb 9.70 g/dL (11.27-16.99) L 04/01/23 10:06 Hct 30.9 % (37-53) L 04/01/23 10:06 MCV 82.8 fl (82-101) 04/01/23 10:06 MCH 26.0 pg (27-33) L 04/01/23 10:06 MCHC 31.4 g/dL (30-55) 04/01/23 10:06 RDW 17.1 % (12.1-15.1) H 04/01/23 10:06 Plt Count 280 10^3/cmm (157-399) 04/01/23 10:06 MPV 9.9 fL (7.4-10.4) 04/01/23 10:06 Neut % (Auto) 77.8 % 04/01/23 10:06 Lymph % (Auto) 8.8 % 04/01/23 10:06 [place] % (Auto) 11.2 % 04/01/23 10:06 Eos % (Auto) 0.9 % 04/01/23 10:06 Baso % (Auto) 0.7 % 04/01/23 10:06 Neut # (Auto) 5.29 10^3/uL (1.8-7.7) 04/01/23 10:06 Lymph # (Auto) 0.6 10^3/uL (0.8-4.8) L 04/01/23 10:06 [place] # (Auto) 0.8 10^3/uL (0.2-0.9) 04/01/23 10:06 Eos # (Auto) 0.1 10^3/uL (0.0-0.8) 04/01/23 10:06 Baso # (Auto) 0.1 10^3/uL (0.0-0.1) 04/01/23 10:06 Nucleated RBC % (auto) 0 % 04/01/23 10:06 Nucleated RBCs # 0.0 /100WBC 04/01/23 10:06 PT 17.00 SECONDS (12.1-14.9) H 04/01/23 10:06 INR 1.34 (0.8-1.2) H 04/01/23 10:06 Sodium 136 mmol/L (136-145) 04/02/23 03:55 Potassium 2.8 mmol/L (3.5-5.1) L* 04/02/23 03:55 Chloride 89 mmol/L (98-107) L 04/02/23 03:55 Carbon Dioxide 36 mmol/L (22-29) H 04/02/23 03:55 Anion Gap 13.8 (5-19) 04/02/23 03:55 BUN 40 mg/dL (8-23) H 04/02/23 03:55 Creatinine 1.6 mg/dL (0.7-1.2) H 04/02/23 03:55 GFR Calculation Not Reportable 04/02/23 03:55 Glucose 111 mg/dL (65-115) 04/02/23 03:55 Calculated Osmolality 292 mOsm/kg (285-295) 04/02/23 03:55 Calcium 8.9 mg/dL (8.5-10.5) 04/02/23 03:55 Magnesium 2.6 mg/dL (1.7-2.3) H 04/02/23 03:55 Total Bilirubin 0.4 mg/dL (0.15-1.2) 04/01/23 10:06 AST 31 U/L (0-40) 04/01/23 10:06 ALT 29 U/L (0-41) 04/01/23 10:06 Alkaline Phosphatase 90 U/L (40-130) 04/01/23 10:06 Troponin T Baseline 52 ng/L (0-15) H 04/01/23 10:06 Troponin T 120 Minute 49.37 ng/L (0-15) H 04/01/23 12:14 Delta Troponin T -2.63 ABS# (0-10) L 04/01/23 12:14 Troponin T Hi Sens 6Hr 46.96 ng/L (0-15) H 04/01/23 16:31 Troponin T Hi Sens 6Hr Delta -5.04 ng/L (0-12) L 04/01/23 16:31 NT-Pro-B Natriuret Pep 153 pg/mL (0-450) 04/01/23 10:06 Total Protein 6.4 g/dL (6.6-8.7) L 04/01/23 10:06 Albumin 4.0 g/dL (3.5-5.2) 04/01/23 10:06 Globulin 2.4 g/dL (1.3-4.6) 04/01/23 10:06 Vitamin B12 270 pg/mL (232-1245) 04/01/23 10:06 TSH 0.85 uIU/mL (0.27-4.20) 04/01/23 10:06 Influenza Type A Ag negative (Negative) 04/01/23 10:38 Influenza Type B Ag negative (Negative) 04/01/23 10:38 SARS-CoV-2 Ag (Rapid) Negative (Negative) 04/01/23 10:38 All radiology interpretation(s) finalized by discharge Discharge Plan Discharge Patient Disposition: Short Term Hosp w Plan Readm Clinical Impression: Acute on chronic kidney failure, Acute hypokalemia, ADAMS (dyspnea on exertion), Bilateral edema of lower extremity Condition: Stable Coding Level of Care Code ED [employer] Attorney for Lauren Zimmerman
--- NOTE | 2023-04-01 14:23 | CT_ITS ---
WS: [id number] CT chest wo con [id number] HISTORY: sob, copd TECHNIQUE: Axial imaging performed through the thorax. Coronal and sagittal reformats are submitted. All CT scans at [facility] use at least one of these dose optimization techniques: automated exposure control; mA and/or kV adjustment per patient size (includes targeted exams where dose is mat ched to clinical indication); or iterative reconstruction. CONTRAST: None DLP: 812.74 mGy.cm COMPARISON: 11/14/2021 Lungs and central airway: Normal. Pleura: Normal. No pleural effusion. Heart and pericardium: Moderately enlarged heart. No pericardial effusion. Scattered coronary artery calcifications. Mediastinum and adriana: There are a few small mediastinal and hilar lymph nodes. No pathologically enla rged lymph node. Vessels: Mild atherosclerosis aorta. No aneurysm. Normal size pulmonary artery. Chest wall and lower neck: No soft tissue masses. Upper abdomen: Prior cholecystectomy. LEFT renal cyst 3.9 x 5.2 cm. Osseous structures: Extensive thoracolumbar fusion hardware with artifact through the posterior thora x and abdomen. IMPRESSION: 1. No pneumonia or edema. 2. No adenopathy. 3. Moderately enlarged heart. 4. Prior cholecystectomy. 5. LEFT renal cyst.
[2023-04-01 15:14] LABS: Thyroid Stimulating Hormone 0.85 uIU/mL (0.27-4.20); Vitamin B12 270 pg/mL (232-1245)
[2023-04-01] MEDS: lidocaine 1% 5 ML in potassium chloride premix 100 ML 25 ML IV (15:24)
[2023-04-01] MEDS: magnesium hydroxide 30 mL UDC 15 ML PO (15:25)
[2023-04-01] MEDS: lactulose oral liq 20 gm/30 mL UDC 30 GM PO (15:26)
[2023-04-01] MEDS: hyDRALAzine 50 mg Tablet PO ×2 (15:26→21:43)
[2023-04-01 16:58] LABS: Troponin 5 6HR 46.96 ng/L (0-15)
[2023-04-01 16:59] LABS: Troponin 5 6HR Delta -5.04 ng/L (0-12)
--- NOTE | 2023-04-01 17:28 | PC.NURSE ---
Report given to Marlena DEAL in C[facility]. Patient transferred to [facility] via stretcher. went with patient. Bedside belongings sent with patient.
--- NOTE | 2023-04-01 17:40 | PC.NURSE ---
Patient comes to [facility] from ED via a bed.
[2023-04-01] MEDS: carvedilol 25 mg Tablet PO (18:49)
[2023-04-01] MEDS: baclofen 10 mg Tablet PO (18:49)
[2023-04-01] MEDS: liothyronine 5 mcg Tablet PO (19:08)
[2023-04-01] MEDS: apixaban 5 mg Tablet 2.5 MG PO (21:43)
[2023-04-01] MEDS: isosorbide mononitrate ER 30 mg Tablet 60 MG PO (21:43)
[2023-04-01] MEDS: diclofenac 1% Topical Gel 100 gm 1 APPLIC TOPICAL (23:25)
[2023-04-02] VITALS (10 sets, daily range): BP systolic 114–145; BP diastolic 48–72; PULSE 61–71; RESP 14–22; TEMP 36.6–37.6; O2SAT 90–98
[2023-04-02 04:34] LABS: Anion Gap 13.8 (5-19); Blood Urea Nitrogen 40 mg/dL (8-23); Calcium 8.9 mg/dL (8.5-10.5); Carbon Dioxide 36 mmol/L (22-29); Chloride 89 mmol/L (98-107); Glucose 111 mg/dL (65-115); Magnesium 2.6 mg/dL (1.7-2.3); Osmolality Calculated 292 mOsm/kg (285-295); Sodium 136 mmol/L (136-145)
[2023-04-02 04:41] LABS: Potassium 2.8 mmol/L (3.5-5.1)
[2023-04-02] MEDS: lidocaine 1% 5 ML in potassium chloride premix 100 ML 26.25 ML IV ×2 (05:25→09:53)
[2023-04-02] MEDS: levothyroxine 137 mcg Tablet PO (05:30)
[2023-04-02] MEDS: baclofen 10 mg Tablet PO ×2 (08:25→17:29)
[2023-04-02] MEDS: hyDRALAzine 50 mg Tablet PO (08:25)
[2023-04-02] MEDS: carvedilol 25 mg Tablet PO ×2 (08:26→17:29)
[2023-04-02] MEDS: bumetanide 1 mg Tablet PO (08:26)
[2023-04-02] MEDS: sennosides-docusate Tablet 1 TAB PO (08:26)
[2023-04-02] MEDS: amiodarone 200 mg Tablet PO (08:26)
[2023-04-02] MEDS: potassium chloride ER 20 mEq Tablet 40 MEQ PO (08:26)
[2023-04-02] MEDS: predniSONE 10 mg Tablet PO (08:27)
[2023-04-02] MEDS: apixaban 5 mg Tablet 2.5 MG PO (08:31)
--- NOTE | 2023-04-02 10:03 | PC.CHAP ---
Pastoral Care Encounter/Spiritual Assessment Type of Contact [] Declined major account manager visit [] Patient/Family/Request visit [] Outpatient visit [] Follow-up visit [] Physician referral [] Code/Alert [x] Routine visit [] Staff referral [] Actively dying [] Patient sleeping [x] Family support [] [] Out of room [] Palliative care [] [] Receiving care in room [] Pre-surgical visit [] Trauma [] Long length of stay [] ICU visit [] Other: Relational/Emotional Strength x[] Patient feels connected with others/family/visitors/staff [] Distress [] Loneliness/isolation [] Abandonment Spirituality of Patient [x] Person of Nini [] Attends Tenriism of their Nini [x] Believes in Prayer [] Reads Bible or Yazdanism materials [] There are Spiritual issues to be addressed Solid Plasterer Interventions [x] Prayer [x] Active listening [] Non-anxious presence [x] Spiritual/emotional support [] Crisis/trauma care [] Spiritual counseling [] Bereavement support [] Provided bereavement packet [] Provided Bible/devotional materials [] Provided toy/stuffed animal, coloring book to patient or family member [] Provided Communion [] Anointing/[place] [] Salvation [x] Completed spiritual assessment [] Other: Impact on Illness or Injury [] Angry [] Fearful [] Anxious [] Often cries [] Exhaustion [] Unable to work [] Unable to attend baptist [] Unable to walk/stand [] Unable to read [] Unable to drive [] Unable to eat/drink [] Unable to sleep [] Unable to be with family [] Patient intubated [] Other: Summary Time spent with patient 5 min
[2023-04-02] MEDS: liothyronine 5 mcg Tablet PO ×2 (11:00→17:29)
--- NOTE | 2023-04-02 11:12 | PC.NURSE ---
lasix drip verification to hospitalist clarified to dr whitney what dose we need to start the pt on lasix drip. he wants to start him on 10 mg but start the lasix drip after the potassium infusion is done. watch urine output. notified Pharmacy.
--- NOTE | 2023-04-02 11:29 | P.PN_ITS ---
Subjective 2 Subjective: CT chest unremarkable Cardiomegaly Start Lasix drip Inadequate response to Bumex Creatinine 1.6 Spoke with his daughter Her cell phone is [phone] Patient stating that he has not felt different today He still short of breath Endorsing tachypnea with minimal activity Vitals/I&O/Wt Last Vital Signs Temp 97.9 F 04/02/23 08:00 Pulse 70 04/02/23 10:00 Resp 16 04/02/23 10:00 BP 114/49 04/02/23 08:00 Pulse Ox 94 04/02/23 10:00 O2 Del Method Nasal Cannula 04/02/23 10:00 O2 Flow Rate 2 04/02/23 10:00 04/01/23 04/02/23 04/02/23 22:59 06:59 14:59 Intake Total 800 / 800 825 / 1625 225 / 225 Output Total 300 / 300 0 / 300 Balance 500 / 500 825 / 1325 225 / 225 Weight last 48 hrs Weight 124.42 kg Weight 119.295 kg Weight 119.295 kg Physical Exam 2 Narrative: Still has signs of fluid overload Currently on 2 L GCS 15 Pleasant cooperative Eating breakfast Sitting at the bedside S1, S2 variable Pleasant cooperative nonfocal neuroexam Data 04/01/23 10:06 04/02/23 03:55 A&P Assessment and plan (1) High risk medication use: (2) HTN (hypertension): Qualifiers: Hypertension type: primary hypertension Qualified Code(s): I10 - Essential (primary) hypertension (3) CHF (congestive heart failure), NYHA class III: Qualifiers: Congestive heart failure type: diastolic Congestive heart failure chronicity: chronic Qualified Code(s): I50.32 - Chronic diastolic (congestive) heart failure (4) Atrial fibrillation: Qualifiers: Atrial fibrillation type: paroxysmal Qualified Code(s): I48.0 - Paroxysmal atrial fibrillation (5) Chronic anticoagulation: (6) Hypothyroid: Qualifiers: Hypothyroidism type: acquired Qualified Code(s): E03.9 - Hypothyroidism, unspecified (7) Constipation: (8) Seronegative rheumatoid arthritis: (9) S/P laminectomy with spinal fusion: (10) FUAD (obstructive sleep apnea): (11) Acute renal failure superimposed on chronic kidney disease: Plan Acute on chronic kidney disease: Improving with diuresis Acute diastolic CHF exacerbation My concern is related to pulmonary hypertension related dyspnea on exertion Will repeat echo No active chest pain Patient seems to have high-grade heart failure classification Persistent hypervolemia Start Lasix drip Hypokalemia: Repleted Start Lasix drip once we have given potassium today Dyspnea on exertion CT chest did not show any pulmonary pathology no sign of pleural effusion Patient has been struggling with dyspnea exertion for quite some time He uses BiPAP at night and room air in the daytime Chronic anemia: Stable Constipation: Resolved with lactulose History of arthritis A-fib, switch to Lovenox instead of Eliquis in case patient will need right and left heart cath I will check BMP every 2 hours patient patient is on Lasix drip Spoke with his daughter Attestations 2 Medical Necessity Statement*: Continue medical management Diagnoses High risk medication use Z79.899 Primary hypertension I10 Hypertension type: primary hypertension Chronic diastolic congestive heart failure, NYHA class 3 I50.32 Congestive heart failure type: diastolic Congestive heart failure chronicity: chronic Paroxysmal atrial fibrillation I48.0 Atrial fibrillation type: paroxysmal Chronic anticoagulation Z79.01 Acquired hypothyroidism E03.9 Hypothyroidism type: acquired Constipation K59.00 Seronegative rheumatoid arthritis M06.00 S/P laminectomy with spinal fusion Z98.1 FUAD (obstructive sleep apnea) G47.33 Acute renal failure superimposed on chronic kidney disease N17.9; N18.9
--- NOTE | 2023-04-02 11:41 | USCV_ITS ---
Kojo Marinelli Age: 77 Gender: M : 1945 Exam Date: 04/02/2023 13:32 Ordering Phys: Naz Goode MD Technologist: DON Exam Location: [facility] – [place] Indication: SHORTNESS OF BREATH BP: 119 / 52 HR: 66 Rhythm: Sinus Technical Quality: Adequate MEASUREMENTS (Male / Female) Normal Values 2D ECHO LVOT Diameter 2.0 cm LV Ejection Fraction MOD 2C 55.8 % LV Ejection Fraction 2C AL 57.6 % LA Diameter 4.0 cm LA Width 4.0 cm LA Height 4.8 cm RA Width 5.1 cm RA Height 5.3 cm Aorta at Sinotubular Diameter 2.9 cm M-MODE Aortic Annulus Diameter 3.3 cm LA Ao Ratio MM 1.2 MV E Point Septal Separation 0.6 cm FINDINGS Left Ventricle This is a 2D study only. No M-mode or Doppler were obtained. The images are poor and limited. Overall, the left ventricular function appears normal. Wall motion disturbances cannot be delineated due to the poor quality of the images. The ejection fraction is likely within the normal range. Right Ventricle Right ventricle not well visualized. Right Atrium Right atrium not well visualized. Left Atrium Left atrium not well visualized. Mitral Valve Mitral valve not well visualized. Aortic Valve Aortic valve not well visualized. Tricuspid Valve Tricuspid valve not well visualized. Pulmonic Valve Pulmonic valve not well visualized. Pericardium Normal pericardium without effusion. Aorta Aorta not well visualized. IVC Inferior vena cava not visualized. CONCLUSIONS This is a 2D study only. No M-mode or Doppler were obtained. The images are poor and limited. Overall, the left ventricular function appears normal. Wall motion disturbances cannot be delineated due to the poor quality of the images. The ejection fraction is likely within the normal range. The previous study was done only a month ago. That study was done with contrast. There has been no change. Dr. Josh Morales MD (Electronically Signed) Final Date: 03 April 2023 09:30 S
[2023-04-02] MEDS: FUROsemide 100 MG in sodium chloride 0.9% 40 ML IV (14:27)
[2023-04-02] MEDS: tolterodine 2 mg Tablet PO (17:30)
[2023-04-02 19:38] LABS: Anion Gap 15.6 (5-19); Blood Urea Nitrogen 39 mg/dL (8-23); Calcium 9.3 mg/dL (8.5-10.5); Carbon Dioxide 34 mmol/L (22-29); Chloride 90 mmol/L (98-107); Glucose 192 mg/dL (65-115); Osmolality Calculated 297 mOsm/kg (285-295); Potassium 3.6 mmol/L (3.5-5.1); Sodium 136 mmol/L (136-145)
[2023-04-02] MEDS: diclofenac 1% Topical Gel 100 gm 1 APPLIC TOPICAL (20:14)
[2023-04-03] VITALS (8 sets, daily range): BP systolic 102–141; BP diastolic 47–90; PULSE 59–68; RESP 12–20; TEMP 36.4–37.1; O2SAT 92–98
[2023-04-03] MEDS: FUROsemide 100 MG in sodium chloride 0.9% 40 ML IV (01:00)
[2023-04-03 04:52] LABS: Basophils # 0.1 10^3/uL (0.0-0.1); Basophils % 0.8 %; Eosinophils # 0.1 10^3/uL (0.0-0.8); Eosinophils % 0.9 %; Hematocrit 28.3 % (37-53); Lymphocytes # 0.8 10^3/uL (0.8-4.8); Lymphocytes % 12.3 %; Mean Corpuscular HGB Conc 31.1 g/dL (30-55); Mean Corpuscular Hemoglobin 26.2 pg (27-33); Mean Corpuscular Volume 84.2 fl (82-101); Mean Platelet Volume 9.5 fL (7.4-10.4); Monocytes # 1.1 10^3/uL (0.2-0.9); Monocytes % 16.7 %; Neutrophils # 4.45 10^3/uL (1.8-7.7); Neutrophils % 68.7 %; Nucleated Red Blood Cells % 0 %; Platelet Count 245 10^3/cmm (157-399); Red Blood Count 3.36 10^6/uL (3.85-5.65); Red Cell Distribution Width 17.2 % (12.1-15.1); White Blood Count 6.48 10^3/uL (3.29-11.43)
[2023-04-03 05:13] LABS: Anion Gap 12.8 (5-19); Blood Urea Nitrogen 37 mg/dL (8-23); Calcium 8.9 mg/dL (8.5-10.5); Carbon Dioxide 37 mmol/L (22-29); Chloride 92 mmol/L (98-107); Glucose 104 mg/dL (65-115); Osmolality Calculated 297 mOsm/kg (285-295); Sodium 139 mmol/L (136-145)
[2023-04-03 05:28] LABS: Potassium 2.8 mmol/L (3.5-5.1)
[2023-04-03] MEDS: levothyroxine 137 mcg Tablet PO (06:14)
[2023-04-03] MEDS: potassium chloride premix 100 ML 25 MEQ IV (06:16)
[2023-04-03] MEDS: tolterodine 2 mg Tablet PO ×2 (09:02→17:09)
[2023-04-03] MEDS: sennosides-docusate Tablet 1 TAB PO (09:03)
[2023-04-03] MEDS: baclofen 10 mg Tablet PO ×2 (09:03→17:09)
[2023-04-03] MEDS: potassium chloride ER 20 mEq Tablet 40 MEQ PO ×3 (09:03→17:09)
[2023-04-03] MEDS: carvedilol 25 mg Tablet PO ×2 (09:03→17:09)
[2023-04-03] MEDS: predniSONE 10 mg Tablet PO (09:03)
[2023-04-03] MEDS: amiodarone 200 mg Tablet PO (09:03)
[2023-04-03] MEDS: ipratropium-albuterol 3 mL Neb INHALATION (09:24)
[2023-04-03 10:31] LABS: Blood Urea Nitrogen 35 mg/dL (8-23); Calcium 9.1 mg/dL (8.5-10.5); Carbon Dioxide 36 mmol/L (22-29); Chloride 90 mmol/L (98-107); Glucose 129 mg/dL (65-115); Magnesium 2.1 mg/dL (1.7-2.3); Osmolality Calculated 302 mOsm/kg (285-295); Sodium 141 mmol/L (136-145)
--- NOTE | 2023-04-03 12:04 | P.PN_ITS ---
Subjective 2 Subjective: EF seems to be preserved Patient stating that he felt little better however he is still experiencing exertional shortness of breath Hemodynamically stable Discontinue Lasix drip Contraction alkalosis Given 1 dose of acetazolamide Patient is agreeable for short-term rehab Vitals/I&O/Wt Last Vital Signs Temp 97.6 F 04/03/23 11:30 Pulse 61 04/03/23 11:30 Resp 18 04/03/23 10:00 BP 102/47 04/03/23 11:30 Pulse Ox 97 04/03/23 11:30 O2 Del Method Nasal Cannula 04/03/23 11:30 O2 Flow Rate 2 04/03/23 10:00 04/02/23 04/03/23 04/03/23 22:59 06:59 14:59 Intake Total 50 / 380 504.333 / 504.333 Output Total 1650 / 2330 1950 / 4280 600 / 600 Balance -1650 / -2000 -1900 / -3900 -95.667 / -95.667 Weight last 48 hrs Weight 122.016 kg Weight 124.42 kg Weight 119.295 kg Physical Exam 2 Narrative: Awake and alert Signs of fluid load improving Currently on 2 L Pleasant Velazquez catheter in place Nonfocal neuroexam Lower extremity swelling slightly better Urinary Catheter Management: Velazquez Latex Free: Cath Placed During This Visit: yes Reason for Continuing Indwelling Catheter: Other Urinary Catheter Date of Insertion: 04/02/23 Urinary Catheter Time of Insertion: 11:57 Data 04/03/23 04:15 04/03/23 08:56 A&P Assessment and plan (1) Chronic anticoagulation: (2) High risk medication use: (3) HTN (hypertension): Qualifiers: Hypertension type: primary hypertension Qualified Code(s): I10 - Essential (primary) hypertension (4) CHF (congestive heart failure), NYHA class III: Qualifiers: Congestive heart failure type: diastolic Congestive heart failure chronicity: chronic Qualified Code(s): I50.32 - Chronic diastolic (congestive) heart failure (5) Atrial fibrillation: Qualifiers: Atrial fibrillation type: paroxysmal Qualified Code(s): I48.0 - Paroxysmal atrial fibrillation (6) Hypothyroid: Qualifiers: Hypothyroidism type: acquired Qualified Code(s): E03.9 - Hypothyroidism, unspecified (7) Acute renal failure superimposed on chronic kidney disease: (8) Anemia: Qualifiers: Anemia type: unspecified type Qualified Code(s): D64.9 - Anemia, unspecified (9) Seronegative rheumatoid arthritis: (10) S/P spinal fusion: (11) FUAD (obstructive sleep apnea): Plan IV Lasix aggressive diuresis held today Turned off Lasix drip today Potassium improved Continue twice daily potassium supplementation Change Lasix order to acetazolamide for contraction alkalosis Patient is agreeable for rehab Continue antihypertensive regimen Resume Eliquis Hemoglobin stable EF preserved CT chest unremarkable Patient might have restrictive lung disease considering rheumatoid arthritis, spinal fusion Attestations 2 Medical Necessity Statement*: Discharge likely Wednesday Diagnoses Chronic anticoagulation Z79.01 High risk medication use Z79.899 Primary hypertension I10 Hypertension type: primary hypertension Chronic diastolic congestive heart failure, NYHA class 3 I50.32 Congestive heart failure type: diastolic Congestive heart failure chronicity: chronic Paroxysmal atrial fibrillation I48.0 Atrial fibrillation type: paroxysmal Acquired hypothyroidism E03.9 Hypothyroidism type: acquired Acute renal failure superimposed on chronic kidney disease N17.9; N18.9 Anemia, unspecified type D64.9 Anemia type: unspecified type Seronegative rheumatoid arthritis M06.00 S/P spinal fusion Z98.1 FUAD (obstructive sleep apnea) G47.33
--- NOTE | 2023-04-03 12:09 | USR_ITS ---
PROCEDURE INFORMATION: Exam: US Duplex Lower Extremity Veins, Bilateral Exam date and time: 04/03/2023 1:55 PM Age: 77 years old Clinical indication: Edema, localized; Lower extremity, bilateral; Additional info: Swellling TECHNIQUE: Imaging protocol: Real-time duplex ultrasound of the bilateral extremities with 2-D lorenzo scale, color Doppler flow and spectral waveform analysis including responses to compression and other maneuvers (when performed) with image documentation. Complete exam focused on the lower extremity veins. COMPARISON: CT angio [facility] [id number] 08/19/2022 2:48 PM FINDINGS: Right deep veins: The common femoral, femoral, proximal profunda femoral and popliteal veins are patent without evidence of thrombus and demonstrate normal waveforms. The deep calf veins are patent. Left deep veins: The common femoral, femoral, proximal profunda femoral and popliteal veins are patent without evidence of thrombus and demonstrate normal waveforms. The deep calf veins are patent. Superficial veins: Bilateral saphenofemoral junctions are patent without thrombus. No evidence of thrombophlebitis. Soft tissues: Sonographically unremarkable. US/CV venous duplex [facility] [id number] IMPRESSION: 1. No sonographic evidence of deep venous thrombosis in either lower extremity.
[2023-04-03] MEDS: liothyronine 5 mcg Tablet 10 MCG PO (13:16)
[2023-04-03] MEDS: lidocaine 1% 5 ML in potassium chloride premix 100 ML 25 ML IV (13:17)
[2023-04-03] MEDS: acetaZOLAMIDE 250 mg Tablet PO (13:17)
[2023-04-03] MEDS: apixaban 5 mg Tablet 2.5 MG PO (20:32)
[2023-04-03] MEDS: diclofenac 1% Topical Gel 100 gm 1 APPLIC TOPICAL (23:39)
[2023-04-04] VITALS (11 sets, daily range): BP systolic 98–150; BP diastolic 45–80; PULSE 63–70; RESP 13–28; TEMP 36.8–37.4; O2SAT 93–98
[2023-04-04 05:48] LABS: Basophils # 0.1 10^3/uL (0.0-0.1); Basophils % 0.7 %; Eosinophils # 0.1 10^3/uL (0.0-0.8); Eosinophils % 1.4 %; Hematocrit 29.1 % (37-53); Lymphocytes # 0.9 10^3/uL (0.8-4.8); Lymphocytes % 13.4 %; Mean Corpuscular HGB Conc 30.2 g/dL (30-55); Mean Corpuscular Hemoglobin 25.6 pg (27-33); Mean Corpuscular Volume 84.6 fl (82-101); Mean Platelet Volume 9.9 fL (7.4-10.4); Monocytes % 14.6 %; Neutrophils % 69.5 %; Nucleated Red Blood Cells % 0 %; Platelet Count 257 10^3/cmm (157-399); Red Blood Count 3.44 10^6/uL (3.85-5.65); Red Cell Distribution Width 17.4 % (12.1-15.1); White Blood Count 6.92 10^3/uL (3.29-11.43)
[2023-04-04 06:11] LABS: Blood Urea Nitrogen 33 mg/dL (8-23); Calcium 8.9 mg/dL (8.5-10.5); Carbon Dioxide 33 mmol/L (22-29); Chloride 96 mmol/L (98-107); Glucose 105 mg/dL (65-115); Osmolality Calculated 296 mOsm/kg (285-295); Sodium 139 mmol/L (136-145)
[2023-04-04] MEDS: levothyroxine 137 mcg Tablet PO (06:11)
[2023-04-04 06:15] LABS: Phosphorus 4.2 mg/dL (2.5-4.5)
[2023-04-04] MEDS: lidocaine 1% 5 ML in potassium chloride premix 100 ML 26.25 ML IV (09:00)
[2023-04-04] MEDS: liothyronine 5 mcg Tablet 10 MCG PO (09:15)
[2023-04-04] MEDS: sennosides-docusate Tablet 1 TAB PO (09:16)
[2023-04-04] MEDS: potassium chloride ER 20 mEq Tablet 40 MEQ PO ×2 (09:16→17:57)
[2023-04-04] MEDS: carvedilol 25 mg Tablet PO ×2 (09:16→17:57)
[2023-04-04] MEDS: tolterodine 2 mg Tablet PO ×2 (09:16→18:01)
[2023-04-04] MEDS: baclofen 10 mg Tablet PO ×2 (09:16→17:57)
[2023-04-04] MEDS: amiodarone 200 mg Tablet PO (09:16)
[2023-04-04] MEDS: apixaban 5 mg Tablet 2.5 MG PO (09:16)
[2023-04-04] MEDS: predniSONE 10 mg Tablet PO (09:16)
--- NOTE | 2023-04-04 10:20 | P.PN_ITS ---
Subjective 2 Subjective: Patient is endorsing feeling slightly better He is sitting at the bedside without oxygen saturating well eating breakfast Signs of fluid load improving Creatinine improving Vitals/I&O/Wt Last Vital Signs Temp 99.3 F 04/04/23 07:05 Pulse 64 04/04/23 09:22 Resp 24 H 04/04/23 09:22 BP 143/70 04/04/23 09:22 Pulse Ox 95 04/04/23 09:22 O2 Del Method Room Air 04/04/23 08:02 O2 Flow Rate 2 04/03/23 10:00 04/03/23 04/04/23 04/04/23 22:59 06:59 14:59 Intake Total 845 / 7735.339 4098 / 2995.000 360 / 360 Output Total 1000 / 1600 500 / 2100 Balance -155 / -5.000 900 / 895.000 360 / 360 Weight last 48 hrs Weight 121.291 kg Weight 122.016 kg Physical Exam 2 Narrative: Signs of fluid load improving Currently on room air Sitting at the bedside eating breakfast GCS 15 pleasant cooperative Abdomen distended nontender Pleasant cooperative Urinary Catheter Management: Velazquez Latex Free: Cath Placed During This Visit: yes Reason for Continuing Indwelling Catheter: Other Urinary Catheter Date of Insertion: 04/02/23 Urinary Catheter Time of Insertion: 11:57 Data 04/04/23 04:17 04/04/23 04:17 A&P Assessment and plan (1) HTN (hypertension): Qualifiers: Hypertension type: primary hypertension Qualified Code(s): I10 - Essential (primary) hypertension (2) Atrial fibrillation: Qualifiers: Atrial fibrillation type: paroxysmal Qualified Code(s): I48.0 - Paroxysmal atrial fibrillation (3) Peripheral arterial disease: (4) ADAMS (dyspnea on exertion): (5) Chronic anticoagulation: (6) Hypothyroid: Qualifiers: Hypothyroidism type: acquired Qualified Code(s): E03.9 - Hypothyroidism, unspecified (7) GERD (gastroesophageal reflux disease): (8) Acute renal failure superimposed on chronic kidney disease: (9) Acute on chronic kidney failure: (10) Acute hypokalemia: (11) Anemia: Qualifiers: Anemia type: unspecified type Qualified Code(s): D64.9 - Anemia, unspecified (12) Seronegative rheumatoid arthritis: (13) High risk medication use: Plan Off Lasix drip Contraction alkalosis Received 1 dose of acetazolamide yesterday I will start Bumex 2 mg daily Replenish potassium Potassium somewhat better today Continue steroids Constipation resolved Patient is extremely weak and lethargic Will request PT he may need short-term rehab CT chest unremarkable Continue amiodarone and likely will change his Eliquis dose to 5 twice daily again creatinine has improved Acute on chronic kidney disease improving with diuresis Attestations 2 Medical Necessity Statement*: Will need placement after PT evaluation Diagnoses Primary hypertension I10 Hypertension type: primary hypertension Paroxysmal atrial fibrillation I48.0 Atrial fibrillation type: paroxysmal Peripheral arterial disease I73.9 ADAMS (dyspnea on exertion) R06.09 Chronic anticoagulation Z79.01 Acquired hypothyroidism E03.9 Hypothyroidism type: acquired GERD (gastroesophageal reflux disease) K21.9 Acute renal failure superimposed on chronic kidney disease N17.9; N18.9 Acute hypokalemia E87.6 Anemia, unspecified type D64.9 Anemia type: unspecified type Seronegative rheumatoid arthritis M06.00 High risk medication use Z79.899
[2023-04-04] MEDS: bumetanide 1 mg Tablet 2 MG PO (12:02)
[2023-04-04] MEDS: diclofenac 1% Topical Gel 100 gm 1 APPLIC TOPICAL (20:57)
[2023-04-05] VITALS (8 sets, daily range): BP systolic 119–138; BP diastolic 63–77; PULSE 63–74; RESP 12–19; TEMP 36.4–36.8; O2SAT 94–96
[2023-04-05 04:21] LABS: Blood Urea Nitrogen 31 mg/dL (8-23); Calcium 8.9 mg/dL (8.5-10.5); Carbon Dioxide 28 mmol/L (22-29); Chloride 102 mmol/L (98-107); Creatinine Clr Calc Pharmacy 61.9622; Glucose 127 mg/dL (65-115); Osmolality Calculated 300 mOsm/kg (285-295); Sodium 141 mmol/L (136-145)
[2023-04-05 04:26] LABS: Anion Gap 14.8 (5-19); Potassium 3.8 mmol/L (3.5-5.1)
[2023-04-05] MEDS: levothyroxine 137 mcg Tablet PO (06:16)
--- NOTE | 2023-04-05 07:41 | PC.SOCIAL ---
IMM Update Pg. 2 of IMM updated and reviewed with patient, who verbalized understanding. Copy provided. Copy in chart initial, dated, and timed.
[2023-04-05] MEDS: bumetanide 1 mg Tablet 2 MG PO (08:49)
[2023-04-05] MEDS: liothyronine 5 mcg Tablet 10 MCG PO (08:49)
[2023-04-05] MEDS: baclofen 10 mg Tablet PO ×2 (08:50→17:54)
[2023-04-05] MEDS: amiodarone 200 mg Tablet PO (08:50)
[2023-04-05] MEDS: diclofenac 1% Topical Gel 100 gm 1 APPLIC TOPICAL ×3 (08:50→20:52)
[2023-04-05] MEDS: tolterodine 2 mg Tablet PO ×2 (08:50→17:54)
[2023-04-05] MEDS: sennosides-docusate Tablet 1 TAB PO (08:50)
[2023-04-05] MEDS: predniSONE 10 mg Tablet PO (08:50)
[2023-04-05] MEDS: carvedilol 25 mg Tablet PO ×2 (08:50→17:54)
[2023-04-05] MEDS: potassium chloride ER 20 mEq Tablet 40 MEQ PO ×2 (08:50→17:54)
[2023-04-05] MEDS: apixaban 5 mg Tablet PO ×2 (08:50→20:50)
--- NOTE | 2023-04-05 12:06 | P.PN_ITS ---
Subjective 2 Subjective: Patient is endorsing feeling much better Happy with his progress agreeable to for short-term rehab Vitals/I&O/Wt Last Vital Signs Temp 98.1 F 04/05/23 04:00 Pulse 74 04/05/23 10:00 Resp 18 04/05/23 10:00 BP 135/71 04/05/23 04:00 Pulse Ox 96 04/05/23 10:00 O2 Del Method Room Air 04/05/23 10:00 O2 Flow Rate 2 04/03/23 10:00 04/04/23 04/05/23 04/05/23 22:59 06:59 14:59 Output Total 1500 / 2100 400 / 2500 Balance -1500 / -1399 -400 / -1799 Weight last 48 hrs Weight 119.295 kg Weight 121.291 kg Physical Exam 2 Narrative: Signs of hypervolemia improving Awake and alert GC 50 Currently on room air Nonfocal neuroexam Abdomen soft Urinary Catheter Management: Velazquez Latex Free: Cath Placed During This Visit: yes Reason for Continuing Indwelling Catheter: Other Urinary Catheter Date of Insertion: 04/02/23 Urinary Catheter Time of Insertion: 11:57 Data 04/04/23 04:17 04/05/23 03:22 A&P Assessment and plan (1) High risk medication use: (2) CHF (congestive heart failure), NYHA class III: Qualifiers: Congestive heart failure type: diastolic Congestive heart failure chronicity: chronic Qualified Code(s): I50.32 - Chronic diastolic (congestive) heart failure (3) Atrial fibrillation: Qualifiers: Atrial fibrillation type: paroxysmal Qualified Code(s): I48.0 - Paroxysmal atrial fibrillation (4) ADAMS (dyspnea on exertion): (5) Chronic anticoagulation: (6) Acute renal failure superimposed on chronic kidney disease: (7) Anemia: Qualifiers: Anemia type: unspecified type Qualified Code(s): D64.9 - Anemia, unspecified (8) Seronegative rheumatoid arthritis: Plan Patient needs short-term rehab Signs of fluid load improving Dyspnea on exertion seems to be related to 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, spine fusion CT scan of chest negative Echo showed preserved ejection fraction Full code Acute on chronic kidney disease improved with diuresis Full code Patient is happy with his progress Lower extremity no signs of DVT Attestations 2 Medical Necessity Statement*: Awaiting placement now Diagnoses High risk medication use Z79.899 Chronic diastolic congestive heart failure, NYHA class 3 I50.32 Congestive heart failure type: diastolic Congestive heart failure chronicity: chronic Paroxysmal atrial fibrillation I48.0 Atrial fibrillation type: paroxysmal ADAMS (dyspnea on exertion) R06.09 Chronic anticoagulation Z79.01 Acute renal failure superimposed on chronic kidney disease N17.9; N18.9 Anemia, unspecified type D64.9 Anemia type: unspecified type Seronegative rheumatoid arthritis M06.00
[2023-04-06] VITALS (9 sets, daily range): BP systolic 120–169; BP diastolic 67–80; PULSE 57–101; RESP 12–16; TEMP 36.6–37.1; O2SAT 92–96
[2023-04-06] MEDS: levothyroxine 137 mcg Tablet PO (05:04)
[2023-04-06] MEDS: bumetanide 1 mg Tablet 2 MG PO (09:10)
[2023-04-06] MEDS: lactulose oral liq 20 gm/30 mL UDC 10 GM PO (09:10)
[2023-04-06] MEDS: tolterodine 2 mg Tablet PO (09:11)
[2023-04-06] MEDS: carvedilol 25 mg Tablet PO (09:11)
[2023-04-06] MEDS: sennosides-docusate Tablet 1 TAB PO (09:11)
[2023-04-06] MEDS: baclofen 10 mg Tablet PO (09:11)
[2023-04-06] MEDS: apixaban 5 mg Tablet PO (09:11)
[2023-04-06] MEDS: potassium chloride ER 20 mEq Tablet 40 MEQ PO (09:11)
[2023-04-06] MEDS: amiodarone 200 mg Tablet PO (09:11)
[2023-04-06] MEDS: predniSONE 10 mg Tablet PO (09:12)
--- NOTE | 2023-04-06 09:56 | PM.DCS ---
Discharge Providers Date of Admission: 04/02/23 11:30 Date of Discharge: April 06, 2023 Attending Provider at Admission: Naz Goode MD Attending Provider at Discharge: Naz Goode MD Primary Care Provider: Marsha Turner MD Diagnoses at Discharge Discharge Diagnosis (1) High risk medication use: Status: Chronic Permanent problem details: prednisone and leflunomide 12/2022 (2) CHF (congestive heart failure), NYHA class III: Status: Chronic Qualifiers: Congestive heart failure chronicity: chronic Congestive heart failure type: diastolic Qualified Code(s): I50.32 - Chronic diastolic (congestive) heart failure Permanent problem details: EF 10/2022 43% on stress test, 50% on echo (3) Atrial fibrillation: Status: Chronic Qualifiers: Atrial fibrillation type: paroxysmal Qualified Code(s): I48.0 - Paroxysmal atrial fibrillation (4) ADAMS (dyspnea on exertion): Status: Acute (5) Chronic anticoagulation: Status: Chronic Permanent problem details: eliquis (6) Acute renal failure superimposed on chronic kidney disease: Status: Acute (7) Anemia: Status: Chronic Qualifiers: Anemia type: unspecified type Qualified Code(s): D64.9 - Anemia, unspecified (8) Seronegative rheumatoid arthritis: Status: Chronic Reason for Visit Reason for Visit: sob, dizziness Hospital Course Hospital Course 77-year male who was admitted for management and evaluation of congestive heart failure exacerbation, dyspnea on exertion orthopnea and PND, patient was diuresed aggressively with Lasix drip which was transitioned to IV and then p.o. regimen, please note we did CT scan of chest to rule out other etiologies for dyspnea on exertion, CT scan of chest did not show any remarkable findings, echo showing preserved ejection fraction, patient has history of rheumatoid arthritis spine fusion, I do believe his dyspnea on exertion is related to advanced heart failure stage and possible restrictive lung disease, I do not think he will be a good candidate to go for an angiogram to rule out pulmonary hypertension at this point, at home he only uses CPAP for sleep apnea, during hospitalization we were using 2 to 3 L of oxygen with aggressive diuresis we were able to wean him off to room air, he is being discharged to a short-term rehab/SNF before he returns home, potassium was replenished aggressively during hospitalization. It is 3.8 at the time of discharge. Creatinine at the time of discharge is 1.3 that seems to be around his baseline of 1.2. Will remove Velazquez catheter before discharge. Patient is full code Please note patient makes complaint that he is short of breath while he would saturate 93% on room air, he mostly has dyspnea on exertion which I believe is advanced stage heart failure, he is already on Bumex and metolazone because of contraction alkalosis during aggressive diuresis in the hospital I have decided to discontinue metolazone at the time of discharge and decrease Bumex dose to only 2 mg daily along potassium supplementation Physical Exam Narrative: Signs of fluid load improving Currently on room air Abdomen soft, Constipation resolved Nonfocal neuroexam Pleasant cough Dry skin Lower extremity swelling improving Urinary Catheter Management: Velazquez Latex Free: Cath Placed During This Visit: yes Reason for Continuing Indwelling Catheter: Acute Urinary Retention or Obstruction Urinary Catheter Date of Insertion: 04/02/23 Urinary Catheter Time of Insertion: 11:57 Discharge Data Studies Completed and Pending Completed Studies During Hospitalization Category Date Time Status CT chest wo con [id number] Routine Cat Scan 04/01/23 14:23 Completed XR chest 1V portable [id number] Stat Exams 04/01/23 10:26 [place] [id number] Routine Ultrasound 04/03/23 12:09 Completed CV. echo limited [id number] Routine Ultrasound 04/02/23 11:41 Completed Pending at discharge Category Date Time Status SARS Covid-2 Antigen Stat Lab 04/06/23 09:46 Received Radiology Impressions Venous Duplex 04/03/23 12:09 IMPRESSION: 1. No sonographic evidence of deep venous thrombosis in either lower extremity. Laboratory Results WBC 6.92 10^3/uL (3.29-11.43) 04/04/23 04:17 RBC 3.44 10^6/uL (3.85-5.65) L 04/04/23 04:17 Hgb 8.80 g/dL (11.27-16.99) L 04/04/23 04:17 Hct 29.1 % (37-53) L 04/04/23 04:17 MCV 84.6 fl (82-101) 04/04/23 04:17 MCH 25.6 pg (27-33) L 04/04/23 04:17 MCHC 30.2 g/dL (30-55) 04/04/23 04:17 RDW 17.4 % (12.1-15.1) H 04/04/23 04:17 Plt Count 257 10^3/cmm (157-399) 04/04/23 04:17 MPV 9.9 fL (7.4-10.4) 04/04/23 04:17 Neut % (Auto) 69.5 % 04/04/23 04:17 Lymph % (Auto) 13.4 % 04/04/23 04:17 [place] % (Auto) 14.6 % 04/04/23 04:17 Eos % (Auto) 1.4 % 04/04/23 04:17 Baso % (Auto) 0.7 % 04/04/23 04:17 Neut # (Auto) 4.80 10^3/uL (1.8-7.7) 04/04/23 04:17 Lymph # (Auto) 0.9 10^3/uL (0.8-4.8) 04/04/23 04:17 [place] # (Auto) 1.0 10^3/uL (0.2-0.9) H 04/04/23 04:17 Eos # (Auto) 0.1 10^3/uL (0.0-0.8) 04/04/23 04:17 Baso # (Auto) 0.1 10^3/uL (0.0-0.1) 04/04/23 04:17 Nucleated RBC % (auto) 0 % 04/04/23 04:17 Nucleated RBCs # 0.0 /100WBC 04/04/23 04:17 PT 17.00 SECONDS (12.1-14.9) H 04/01/23 10:06 INR 1.34 (0.8-1.2) H 04/01/23 10:06 Sodium 141 mmol/L (136-145) 04/05/23 03:22 Potassium 3.8 mmol/L (3.5-5.1) 04/05/23 03:22 Chloride 102 mmol/L (98-107) 04/05/23 03:22 Carbon Dioxide 28 mmol/L (22-29) 04/05/23 03:22 Anion Gap 14.8 (5-19) 04/05/23 03:22 BUN 31 mg/dL (8-23) H 04/05/23 03:22 Creatinine 1.3 mg/dL (0.7-1.2) H 04/05/23 03:22 GFR Calculation Not Reportable 04/05/23 03:22 Glucose 127 mg/dL (65-115) H 04/05/23 03:22 Calculated Osmolality 300 mOsm/kg (285-295) H 04/05/23 03:22 Calcium 8.9 mg/dL (8.5-10.5) 04/05/23 03:22 Phosphorus 4.2 mg/dL (2.5-4.5) 04/04/23 04:17 Magnesium 2.1 mg/dL (1.7-2.3) 04/03/23 08:56 Total Bilirubin 0.4 mg/dL (0.15-1.2) 04/01/23 10:06 AST 31 U/L (0-40) 04/01/23 10:06 ALT 29 U/L (0-41) 04/01/23 10:06 Alkaline Phosphatase 90 U/L (40-130) 04/01/23 10:06 Troponin T Baseline 52 ng/L (0-15) H 04/01/23 10:06 Troponin T 120 Minute 49.37 ng/L (0-15) H 04/01/23 12:14 Delta Troponin T -2.63 ABS# (0-10) L 04/01/23 12:14 Troponin T Hi Sens 6Hr 46.96 ng/L (0-15) H 04/01/23 16:31 Troponin T Hi Sens 6Hr Delta -5.04 ng/L (0-12) L 04/01/23 16:31 NT-Pro-B Natriuret Pep 153 pg/mL (0-450) 04/01/23 10:06 Total Protein 6.4 g/dL (6.6-8.7) L 04/01/23 10:06 Albumin 4.0 g/dL (3.5-5.2) 04/01/23 10:06 Globulin 2.4 g/dL (1.3-4.6) 04/01/23 10:06 Vitamin B12 270 pg/mL (232-1245) 04/01/23 10:06 TSH 0.85 uIU/mL (0.27-4.20) 04/01/23 10:06 Influenza Type A Ag negative (Negative) 04/01/23 10:38 Influenza Type B Ag negative (Negative) 04/01/23 10:38 SARS-CoV-2 Ag (Rapid) Negative (Negative) 04/01/23 10:38 Vitals Last Vital Signs Temp 97.9 F 04/06/23 04:27 Pulse 67 04/06/23 09:07 Resp 15 04/06/23 09:07 BP 120/73 04/06/23 09:07 Pulse Ox 94 04/06/23 09:07 O2 Del Method Room Air 04/06/23 09:07 O2 Flow Rate 2 04/03/23 10:00 Discharge Plan Discharge Patient Disposition: Xfer SNF Condition: Stable Prescriptions: New sennosides-docusate sodium [Stool Softener-Laxative] 8.6-50 mg Tablet 1 tab PO DAILY Qty: 30 0RF Continued (DME) MARK BRACE See Rx Instructions .Route .MEDSUPPLY Qty: 1 0RF Rx Instructions: As directed carvedilol 25 mg tablet 25 mg PO BID Qty: 180 3RF diclofenac sodium 1 % gel 4 g TOPICAL QID PRN (Reason: Pain) Qty: 100 2RF (DME) Modification to AFO Brace to the left See Rx Instructions .Route .MEDSUPPLY Qty: 1 0RF Rx Instructions: As directed by [facility] [place] baclofen 10 mg tablet 10 mg PO BID Qty: 14 0RF hydralazine 50 mg tablet 50 mg PO TID Qty: 90 5RF atorvastatin 40 mg tablet 40 mg PO BEDTIME Qty: 90 3RF acetaminophen 500 mg Capsule 1,000 mg PO BID levothyroxine [Synthroid] 137 mcg tablet 137 mcg PO QAM magnesium L-lactate [Magtab] 84 mg Tablet Extended Release 84 mg PO BID 30 Days Qty: 60 1RF Eliquis 5 mg Tablet 5 mg PO BID@0900,2100 Qty: 60 2RF oxybutynin chloride 5 mg tablet extended release 24hr 5 mg PO QAM pregabalin 50 mg capsule 50 mg PO BID albuterol sulfate 2.5 mg /3 mL (0.083 %) solution for nebulization 2.5 mg inhalation Q6H PRN (Reason: Shortness Of Breath) omeprazole 40 mg Capsule,Delayed Release(Dr/Ec) 40 mg PO QAM calcium carbonate 500 mg calcium (1,250 mg) Tablet 1,000 mg PO DAILY nitroglycerin [Nitrostat] 0.4 mg Tablet, Sublingual 0.4 mg SUBLINGUAL Q5M PRN (Reason: Chest Pain) Rx Instructions: do not exceed 3 doses per episode albuterol sulfate 90 mcg/actuation HFA aerosol inhaler 1 - 2 puff INHALATION Q4H PRN (Reason: Wheezing) bisacodyl 5 mg tablet 5 mg PO DAILY PRN (Reason: constipation) Qty: 30 0RF isosorbide mononitrate 30 mg Tablet Extended Release 24 Hr 60 mg PO BEDTIME Qty: 30 0RF amiodarone [Pacerone] 200 mg Tablet 200 mg PO DAILY Qty: 30 0RF liothyronine 5 mcg tablet 5 mcg PO BID prednisone 10 mg tablet 10 mg PO DAILY Changed bumetanide 2 mg tablet 2 mg PO DAILY Qty: 60 2RF potassium chloride 10 mEq tablet extended release 20 meq PO DAILY Qty: 30 0RF Discontinued metolazone 2.5 mg tablet 2.5 mg PO BID Discharge Orders: Discharge Order (Routine); Ordered 04/06/23 Ordered By: Naz Goode Referrals: [facility] [Outside] Marsha Turner MD [Primary Care Provider] - 3 weeks Discharge Diet: Cardiac Discharge Activity: Increase activity as tolerated Patient Instructions: Opioid Safety Discharge Attestations Time Spent in Discharge Care*: greater than 30 min Quality Metrics Clinical Quality Measures [ No reported AMI, CVA or VTE this stay] Coding Level of Care Code Acute Code for Chg Fwd Diagnoses High risk medication use Z79.899 Chronic diastolic congestive heart failure, NYHA class 3 I50.32 Congestive heart failure chronicity: chronic Congestive heart failure type: diastolic Paroxysmal atrial fibrillation I48.0 Atrial fibrillation type: paroxysmal ADAMS (dyspnea on exertion) R06.09 Chronic anticoagulation Z79.01 Acute renal failure superimposed on chronic kidney disease N17.9; N18.9 Anemia, unspecified type D64.9 Anemia type: unspecified type Seronegative rheumatoid arthritis M06.00
[2023-04-06 10:20] LABS: SARS Covid-2 Antigen negative (Negative)
[2023-04-06] MEDS: liothyronine 5 mcg Tablet 10 MCG PO (12:15)
--- NOTE | 2023-04-06 13:43 | PC.NURSE ---
report phoned to [facility]...dicharged via [employer] transportation at 1230.
== END 2023-04-06 13:47 | disposition skilled nursing facility (03) | DRG 291 ==
LOC: ER 13:26 → ER IP 13:44 → CSU 14:28
PROVIDERS: Admitting Provider Internal Medicine; Emergency Provider Internal Medicine; PCP Internal Medicine; Visit Provider Internal Medicine
DX: I13.0 Hypertensive heart and chronic kidney disease with heart failure and stage 1 through stage 4 chronic kidney disease, or unspecified chronic kidney disease (principal); I50.33 Acute on chronic diastolic (congestive) heart failure; N17.9 Acute kidney failure, unspecified; E87.3 Alkalosis; N18.9 Chronic kidney disease, unspecified; I48.0 Paroxysmal atrial fibrillation; Z79.01 Long term (current) use of anticoagulants; M19.90 Unspecified osteoarthritis, unspecified site; E87.6 Hypokalemia; Z79.52 Long term (current) use of systemic steroids; I73.9 Peripheral vascular disease, unspecified; M06.00 Rheumatoid arthritis without rheumatoid factor, unspecified site; G47.33 Obstructive sleep apnea (adult) (pediatric); Z99.89 Dependence on other enabling machines and devices; K59.00 Constipation, unspecified; Z98.1 Arthrodesis status; D64.9 Anemia, unspecified; I25.10 Atherosclerotic heart disease of native coronary artery without angina pectoris; Z86.73 Personal history of transient ischemic attack (TIA), and cerebral infarction without residual deficits; K31.84 Gastroparesis; K21.9 Gastro-esophageal reflux disease without esophagitis; E03.9 Hypothyroidism, unspecified; J44.9 Chronic obstructive pulmonary disease, unspecified; E78.5 Hyperlipidemia, unspecified
CPT/HCPCS: 36415; 51702; 71045; 71250; 80048; 80053; 82607; 83735; 83880; 84100; 84443; 84484; 85025; 85610; 87426; 87804; 93005; 93308; 93970; 94640; 96365; 96366; 96376; 97110; 97116; 97162; 97530; 99204; 99214; 99285; G0378; J1940; J3480; J7512

== ENCOUNTER 2023-04-12 08:05 | Outpatient (CLI) | payer MEDICARE, OTHER, SELFPAY ==
--- NOTE | 2023-04-12 08:30 | CT_ITS ---
WS: [id number] HIGH-RESOLUTION CT CHEST TECHNIQUE: Noncontrast high resolution CT of the chest with coronal and sagittal reformatted images. CLINICAL INFORMATION: to rule out interstitial disease COMPARISON: 04/01/2023 DLP: 2157.[address] scans at [facility] use at least one of these dose optimization techniques: automated e xposure control; mA and/or kV adjustment per patient size (includes targeted exams where dose is matc hed to clinical indication); or iterative reconstruction. FINDINGS:. Subsegmental atelectasis LEFT lower lobe. Calcified granuloma LEFT lower lobe. No evidence of honeycombing. No subpleural reticular opacities. No evidence of interstitial lung disease or bron chiectasis. Cardiomegaly. Aortic calcification. Coronary calcification. No mediastinal or hilar lymphadenopathy. Mild aortic calcification. Prior cholecystectomy. Partially visualized LEFT renal cyst. Moderate thoracic kyphosis with extensive prior thoracolumbar f usion. IMPRESSION: 1. No evidence of honeycombing. No evidence of interstitial lung disease. 2. No acute pulmonary infiltrates. 3. No mediastinal or hilar lymphadenopathy.
== END 2023-04-12 08:06 | disposition home or self-care (01) ==
LOC: RAD 08:05
PROVIDERS: PCP Internal Medicine; Visit Provider Internal Medicine Pulmonary Disease
DX: J84.9 Interstitial pulmonary disease, unspecified (principal)
CPT/HCPCS: 71250; J2704

== ENCOUNTER 2023-04-12 08:44 | Day surgery (SDC) | payer MEDICARE, OTHER, SELFPAY ==
[2023-04-12 09:19] VITALS: BP 193/98; PULSE 71; RESP 18; TEMP 37.1; O2SAT 95
[2023-04-12] MEDS: sodium chloride 0.9% 1,000 ML 30 ML IV (09:45)
--- NOTE | 2023-04-12 11:31 | P.ANESASSM_ITS ---
Pre-Anesthetic Assessment Height/Weight: Height 1.83 m Weight 119.295 kg Temp Pulse Resp BP Pulse Ox O2 Del Method 98.7 F 71 18 193/98 95 Room Air 04/12/23 09:19 04/12/23 09:19 04/12/23 09:19 04/12/23 09:19 04/12/23 09:19 04/12/23 09:19 Operation Date: 04/12/23 11:40 Proposed Procedures p 02369 exc subcutaneous back mass L72.9,(Not Applicable) - Erick Fitzgerald DO Familial anesthetic complications: Resistant to anesthestics, patient informed he will be having light MAC and will have expected recall of intraoperative events Was Beta Ángela taken within 24 hours: N/A Was Clonidine taken within 24 hours: N/A Last intake: Intake Last Liquid Date 04/11/23 Last Liquid Time 22:00 Last Solid Date 04/11/23 Last Solid Time 19:30 Social No alcohol and No tobacco Exam alert, oriented x 3, clear to auscultation bilaterally and regular rate & rhythm Airway Mallampati: Class III Dentition: false CV/HEM Atrial Fibrillation, Coronary Artery Disease, Congestive Heart Failure and Hypertension Ef 43% GI Gastroesophageal Reflux Disease Metabolic Hyperlipidemia and Thyroid Disease [facility]/donna Anesthetic Plan ASA status: 4 Anesthesia: MAC Risk of > 500 ml blood loss (7ml/kg in children): No Medications/Allergies Home Medications Medication Instructions Recorded Confirmed Last Taken Type acetaminophen 500 mg capsule 1,000 mg PO BID 02/06/20 04/12/23 04/11/23 History MARK BRACE #1 ea 08/01/20 04/01/23 Unknown Rx carvedilol 25 mg tablet 25 mg PO BID #180 tabs 03/24/21 04/12/23 04/11/23 Rx Modification to AFO Brace to the #1 ea 02/02/22 04/01/23 Unknown Rx left atorvastatin 40 mg tablet 40 mg PO BEDTIME #90 tabs 06/26/22 04/12/23 04/11/23 Rx levothyroxine 137 mcg tablet 137 mcg PO QAM 10/14/22 04/07/23 04/07/23 History (Synthroid) apixaban 5 mg tablet (Eliquis) 5 mg PO BID@0900,2100 #60 tabs 11/12/22 04/12/23 04/05/23 Rx magnesium L-lactate 84 mg 84 mg PO BID 30 days #60 tabs 11/12/22 04/12/23 04/11/23 Rx tablet,extended release (Magtab) oxybutynin chloride 5 mg 5 mg PO QAM 12/03/22 04/12/23 04/11/23 History tablet,extended release 24 hr pregabalin 50 mg capsule 50 mg PO BID 12/03/22 04/12/23 04/11/23 History baclofen 10 mg tablet 10 mg PO BID #14 tabs 12/17/22 04/12/23 04/11/23 Rx albuterol sulfate 2.5 mg/3 mL 2.5 mg inhalation Q6H PRN 12/22/22 04/12/23 Unknown History (0.083 %) solution for nebulization Shortness Of Breath albuterol sulfate 90 mcg/actuation 1 - 2 puff inhalation Q4H PRN 12/22/22 04/12/23 Unknown History aerosol inhaler Wheezing calcium carbonate 500 mg calcium 1,000 mg PO DAILY 12/22/22 04/12/23 04/11/23 History (1,250 mg) tablet nitroglycerin 0.4 mg sublingual 0.4 mg sublingual Q5M PRN Chest 12/22/22 04/12/23 02/17/23 History tablet (Nitrostat) Pain omeprazole 40 mg capsule,delayed 40 mg PO QAM 12/22/22 04/12/23 04/11/23 History release bisacodyl 5 mg tablet 5 mg PO DAILY PRN constipation #30 12/24/22 04/12/23 04/11/23 Rx tabs hydralazine 50 mg tablet 50 mg PO TID #90 tabs 02/11/23 04/12/23 04/11/23 Rx amiodarone 200 mg tablet (Pacerone) 200 mg PO DAILY #30 tabs 02/19/23 04/12/23 04/11/23 Rx isosorbide mononitrate 30 mg 60 mg (2 x 30 mg) PO BEDTIME #30 02/19/23 04/12/23 04/11/23 Rx tablet,extended release 24 hr tabs diclofenac sodium 1 % topical gel 4 g topical QID PRN Pain #100 grams 03/31/23 04/12/2324 Rx liothyronine 5 mcg tablet 5 mcg PO BID 04/01/23 04/12/23 04/11/23 History prednisone 10 mg tablet 10 mg PO DAILY 04/01/23 04/12/23 04/11/23 History bumetanide 2 mg tablet 2 mg PO DAILY #60 tabs 04/06/23 04/12/23 04/11/23 Rx potassium chloride 10 mEq 20 meq (2 x 10 mEq) PO DAILY #30 04/06/23 04/12/23 04/11/23 Rx tablet,extended release tabs sennosides 8.6 mg-docusate sodium 1 tab PO DAILY #30 tabs 04/06/23 04/12/23 04/11/23 Rx 50 mg tablet (Stool Softener-Laxative) Allergies Allergy/AdvReac Type Severity Reaction Status Date / Time metoclopramide [From Reglan] Allergy Unknown Verified 04/07/23 12:43 morphine Allergy ALGY-Hives Verified 04/07/23 12:43 tamsulosin [From Flomax] Allergy ADR/ALGY-Hy Verified 04/07/23 12:43 potension zolpidem [From Ambien] Allergy Unknown Verified 04/07/23 12:43 hydrocodone AdvReac Mild Hypotension Verified 04/07/23 12:43 oxycodone AdvReac Mild Hypotension Verified 04/07/23 12:43 paper tape Allergy tears skin Uncoded 04/07/23 12:43 off Current Medications Generic Name Dose Route Start Last Admin Trade Name Freq PRN Reason Stop Dose Admin Sodium Chloride 1,000 mls @ 30 mls/hr 04/12/23 09:00 04/12/23 09:45 Sodium Chloride 0.9% IV 04/13/23 08:59 30 mls/hr .Q24H FATIMAH Administration PFSH Anesthesia Medical History Peripheral arterial disease Chronic anticoagulation eliquis Unstable angina CAD (coronary artery disease) Seroma, postoperative Spinal stenosis, thoracic Atrial fibrillation Degenerative disc disease, thoracic History of prostate cancer Urgency incontinence Renal cyst Acquired calcaneovarus deformity of both feet Ascending aortic aneurysm Lumbar stenosis with neurogenic claudication Orthostatic hypotension Venous insufficiency of both lower extremities Acute blood loss as cause of postoperative anemia Anemia Failed back surgical syndrome DDD (degenerative disc disease), lumbar Chronic back pain History of TIA (transient ischemic attack) Radiation cystitis Carotid artery disease Hx of cataract Closed fracture of right patella CHF (congestive heart failure), NYHA class III EF 10/2022 43% on stress test, 50% on echo COVID-19 2020 Metatarsus adductus Osteoarthritis, generalized Seronegative rheumatoid arthritis High risk medication use prednisone and leflunomide 12/2022 Positive CORBY (antinuclear antibody) EDUARDO was negative in 2013 Gastroparesis GERD (gastroesophageal reflux disease) Cervical postlaminectomy syndrome FUAD (obstructive sleep apnea) Hyperlipidemia HTN (hypertension) Hypothyroid COPD (chronic obstructive pulmonary disease) H/O malignant neoplasm of skin Surgical History S/P laminectomy with spinal fusion S/P spinal fusion 02/2021 - T9-S1 Dr Delarosa History of penile implant Status post spinal arthrodesis S/P lumbar fusion Status post revision of total replacement of right knee History of total bilateral knee replacement (TKR) History of cardiac cath ~2012 nonobstructive 10/2022 stress test EF 43 %, small areas prior infarcts RCA and LAD territories History of hip surgery RIGHT 04/11/19 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 History of total right hip arthroplasty History of total left hip arthroplasty History of abdominal aortic aneurysm (AAA) repair History of tonsillectomy and adenoidectomy Hx of appendectomy History of back surgery multiple procedures (>10) H/O neck surgery x 2 Hx of cholecystectomy H/O colonoscopy 2011 H/O esophagogastroduodenoscopy 2011 Family History Mother , Age 81 Bleeding disorder Clotting disorder CAD (coronary artery disease) 60s Cancer Stroke Father , Age 94 CAD (coronary artery disease) 80 Dementia Daughter Chronic kidney disease (CKD) Brother CAD (coronary artery disease) [place] Cancer Denies family history of Diabetes Suicide Anesthesia complication Lung disease Social History Smoking and tobacco/nicotine status: never used tobacco/nicotine Alcohol intake: never Substance/Drug Use: never Household members: spouse Marital status: Current occupational status: retired Special danny needs: No Agree to transfusion: Yes Data Anesthesia 04/12/23 11:25 Cardiac Studies: 2 Echocardiogram 02/17/23 Echocardiogram Limited Views 04/02/23 Echocardiogram Ultrasound 07/03/20 Sestamibi Stress Test (Cardiology) 11/09
--- NOTE | 2023-04-12 11:35 | W.PM.OPSUD ---
Surgery/Procedure H&P Update DATE OF PROCEDURE: April 12, 2023 DATE H&P PERFORMED: 03/30/23 H&P UPDATE INFORMATION: I have reviewed H&P completed within last 30 days, I have examined patient prior to procedure and No changes to prior documentation PLANNED PROCEDURE: Operation Date: 04/12/23 11:40 Proposed Procedures p 88118 exc subcutaneous back mass L72.9,(Not Applicable) - Erick Fitzgerald, DO
[2023-04-12 11:49] LABS: Anion Gap 14.5 (5-19); Blood Urea Nitrogen 17 mg/dL (8-23); Carbon Dioxide 25 mmol/L (22-29); Chloride 105 mmol/L (98-107); Glucose 90 mg/dL (65-115); Osmolality Calculated 293 mOsm/kg (285-295); Potassium 3.5 mmol/L (3.5-5.1); Sodium 141 mmol/L (136-145)
[2023-04-12] MEDS: ceFAZolin 2,000 MG in sodium chloride 0.9% (plus) 50 ML 100 MG IV (13:38)
[2023-04-12] MEDS: lidocaine-epi 2% 20 mL INJ INJECTION ×2 (13:40→13:56)
--- NOTE | 2023-04-12 13:59 | PM.OP ---
Operative Report Date of procedure: April 12, 2023 Pre-op diagnosis: Subcutaneous mass of back Post-op diagnosis: same Procedure done: Excision of subcutaneous mass of back Implants: none Specimens removed/disposition: Elliptical excision of skin and subcutaneous back mass Surgeon: Erick Fitzgerald DO Anesthesia: General Estimated blood loss (mL): 10 Complications: none apparent Brief History: This very pleasant 77-year-old gentleman who presented my office with a draining subcutaneous mass of his back. Decision was indicated. The risk benefits were explained and documented. Procedure: Patient was wheeled operative room and remained on the hospital bed in the left lateral decubitus position. A time was performed. All present were in agreement. A small amount of propofol was given by the department anesthesia prior to localization with 2% lidocaine with epinephrine. 30 cc of 2% lidocaine with epinephrine was used. A 10 blade scalpel was then used to make an elliptical excision transversely measuring 7 cm in Length. Dissection was carried down through the fascia with electrocautery and a cyst was shelled out of the subcutaneous fascia using electrocautery. Wound was irrigated and suctioned. Hemostasis was achieved with electrocautery. The wound was then approximated using 2-0 nylon suture in an interrupted vertical mattress and simple fashion. Sterile bandage was applied. Patient tolerated procedure well.
[2023-04-12 14:19] VITALS: BP 140/68; PULSE 67; RESP 16; TEMP 36.6; O2SAT 97
[2023-04-12 14:23] VITALS: BP 143/72; PULSE 63; RESP 16; O2SAT 95
[2023-04-12 14:28] VITALS: BP 142/85; PULSE 63; RESP 16; O2SAT 95
[2023-04-12 14:35] VITALS: BP 143/71; PULSE 64; RESP 18; TEMP 36.6; O2SAT 96
[2023-04-12 15:00] VITALS: BP 143/76; PULSE 60; RESP 16; O2SAT 96
--- NOTE | 2023-04-12 15:25 | ANE.PACU2 ---
Inpatient post-anesthesia follow up: Airway intact: Yes Vital signs: Temperature 97.8 F Pulse Rate 60 Respiratory Rate 16 Blood Pressure 143/76 Pulse Oximetry 96 Oxygen Delivery Me thod Room Air Oxygen Flow Rate Fraction of Inspir ed Oxygen Hydration adequate: Yes Nausea and vomiting: No Pain level: 1 Mental status: Baseline
== END 2023-04-12 15:25 | disposition home or self-care (01) ==
PROVIDERS: Anesthesiology; PCP Internal Medicine; Visit Provider Surgery
PROC: (CPT 11402; principal; 2023-04-12 11:30)
DX: L72.0 Epidermal cyst (principal); I48.91 Unspecified atrial fibrillation; I25.10 Atherosclerotic heart disease of native coronary artery without angina pectoris; I11.0 Hypertensive heart disease with heart failure; I50.9 Heart failure, unspecified; K21.9 Gastro-esophageal reflux disease without esophagitis; E78.5 Hyperlipidemia, unspecified; Z86.73 Personal history of transient ischemic attack (TIA), and cerebral infarction without residual deficits; G47.33 Obstructive sleep apnea (adult) (pediatric); E03.9 Hypothyroidism, unspecified; J44.9 Chronic obstructive pulmonary disease, unspecified
CPT/HCPCS: 11402; 36415; 80048; 88304; J0690; J7030

== ENCOUNTER 2023-04-14 07:54 | Outpatient (CLI) | payer MEDICARE, OTHER, SELFPAY ==
[2023-04-14 08:34] VITALS: PULSE 61; RESP 18; O2SAT 98
[2023-04-14] MEDS: albuterol 2.5 mg/3 mL Neb INHALATION (08:34)
[2023-04-14 08:38] VITALS: PULSE 65
== END 2023-04-14 07:55 | disposition home or self-care (01) ==
LOC: RT 07:54
PROVIDERS: PCP Internal Medicine; Visit Provider Internal Medicine Pulmonary Disease
DX: R06.02 Shortness of breath (principal); R94.2 Abnormal results of pulmonary function studies
CPT/HCPCS: 94060; 94618; 94726; 94729; J7613

== ENCOUNTER 2023-04-22 07:53 | Oncology outpatient (recurring) (ONCR) | payer MEDICARE, OTHER, SELFPAY ==
[2023-04-22] MEDS: diphenhydrAMINE 50 mg/mL SDV 1mL 25 MG IVP (08:47)
[2023-04-22] MEDS: sodium chloride 0.9% 250 ML 75 ML IV (08:47)
[2023-04-22] MEDS: acetaminophen 325 mg Tablet 650 MG PO (08:47)
[2023-04-22] MEDS: methylPREDNISolone sod succ 40 mg/mL INJ IVP (08:48)
[2023-04-22] MEDS: abatacept 1,000 MG in sodium chloride 0.9% (100 ml) 100 ML 200 MG IV (09:16)
[2023-04-22 09:57] VITALS: BP 145/78; PULSE 57; RESP 18; TEMP 36.9; O2SAT 92
== END 2023-05-13 23:59 | disposition home or self-care (01) ==
PROVIDERS: PCP Internal Medicine; Visit Provider Internal Medicine Rheumatology
DX: M06.042 Rheumatoid arthritis without rheumatoid factor, left hand (principal); M06.041 Rheumatoid arthritis without rheumatoid factor, right hand
CPT/HCPCS: 96365; 96375; J0129; J1200; J2920; J7050

== ENCOUNTER 2023-04-29 10:51 | Outpatient (CLI) | payer MEDICARE, OTHER, SELFPAY ==
--- NOTE | 2023-04-29 10:59 | XR_ITS ---
WS: [id number] Left hip, AP and frog-leg views, 04/29/2023 Clinical Data: PAIN IN LEFT HIP Comparison: Pelvis and right hip Findings: The left hip arthroplasty remains in good position. There is an oblique screw fusing the left SI join t. There are penile implants unchanged. No periprosthetic fractures or loosening is seen. There are vascular calcifications. Impression: Stable left hip arthroplasty
== END 2023-04-29 10:52 | disposition home or self-care (01) ==
LOC: RAD 10:53
PROVIDERS: PCP Internal Medicine; Visit Provider Internal Medicine
DX: M25.552 Pain in left hip (principal); Z96.642 Presence of left artificial hip joint
CPT/HCPCS: 73502; 99214

== ENCOUNTER → 2023-05-04 08:47 | Outpatient (BNVA) | payer MEDICARE, OTHER, SELFPAY | PROVIDERS: PCP Internal Medicine; Visit Provider Podiatrist Foot & Ankle Surgery | DX: I73.9 Peripheral vascular disease, unspecified; L60.3 Nail dystrophy; D62 Acute posthemorrhagic anemia; E03.9 Hypothyroidism, unspecified; Z79.01 Long term (current) use of anticoagulants | CPT/HCPCS: 11721 ==

== ENCOUNTER → 2023-05-06 09:15 | Outpatient (BNVA) | payer MEDICARE, OTHER, SELFPAY | PROVIDERS: PCP Internal Medicine; Visit Provider Surgery | DX: Z98.890 Other specified postprocedural states (principal); T81.30XA Disruption of wound, unspecified, initial encounter; Z79.899 Other long term (current) drug therapy | CPT/HCPCS: 99214 ==

== ENCOUNTER → 2023-05-10 11:14 | Outpatient (BNVA) | payer MEDICARE, OTHER, SELFPAY | PROVIDERS: PCP Internal Medicine; Visit Provider Specialist | DX: M25.552 Pain in left hip | CPT/HCPCS: 73502; 99213 ==

== ENCOUNTER 2023-05-20 07:56 | Oncology outpatient (recurring) (ONCR) | payer MEDICARE, OTHER, SELFPAY ==
[2023-05-20 08:11] VITALS: BP 138/77; PULSE 63; RESP 18; TEMP 37; O2SAT 96
[2023-05-20] MEDS: methylPREDNISolone sod succ 40 mg/mL INJ IVP (08:25)
[2023-05-20] MEDS: sodium chloride 0.9% 250 ML 50 ML IV (08:25)
[2023-05-20] MEDS: acetaminophen 325 mg Tablet 650 MG PO (08:25)
[2023-05-20] MEDS: diphenhydrAMINE 50 mg/mL SDV 1mL 25 MG IVP (08:31)
[2023-05-20] MEDS: abatacept 1,000 MG in sodium chloride 0.9% (100 ml) 100 ML 200 MG IV (09:03)
[2023-05-20 09:36] VITALS: BP 132/76; PULSE 59; RESP 16; TEMP 36.7; O2SAT 94
== END 2023-06-13 23:59 | disposition home or self-care (01) ==
PROVIDERS: PCP Internal Medicine; Visit Provider Internal Medicine Rheumatology
DX: M06.042 Rheumatoid arthritis without rheumatoid factor, left hand (principal); M06.041 Rheumatoid arthritis without rheumatoid factor, right hand
CPT/HCPCS: 96365; 96375; J0129; J1200; J2920; J7050

== ENCOUNTER 2023-05-24 07:39 | Outpatient (CLI) | payer MEDICARE, OTHER, SELFPAY ==
--- NOTE | 2023-05-24 08:00 | NM_ITS ---
WS: [id number] THREE-PHASE BONE SCAN HISTORY: hx of a left total hip arthroplasty, increased pain COMPARISON: 04/19/2020, LEFT hip 05/10/2023 Patient is is injected with 25.2 mCi Tc99m HDP intravenously. Immediate angiographic phase imaging is performed over the area of concern. Static blood pool imaging also performed. Two-hour whole-body sc intigrams performed in anterior and posterior projections. Additional large field of view imaging sub mitted as necessary. Three-phase imaging is centered over the pelvis. Normal arterial and blood pool phase imaging centere d over the pelvis. Attention to the LEFT hip with no abnormality appreciated. Status post bilateral hip arthroplasties. Photopenic defects in the region of the femoral heads. Ther e is no increased uptake along the arthroplasty stems. No evidence for loosening or infection. Bilateral knee replacements are evident. Very slight increased uptake at the RIGHT knee on the delaye d imaging but improved since 04/19/2020. Moderate increase uptake involving the RIGHT SC joint and mild in the AC joints. Intense uptake at wh at is probably T9 vertebral body with more focal subtle increased uptake involving the LEFT T8 and T7 LEFT pedicles. Patient is status post extensive posterior thoracolumbar spine fusion. Mild anterior wedging of T9 was noted on prior radiograph from 02/02/2023. IMPRESSION: 1. Normal three-phase bone imaging centered over the LEFT hip. 2. Bilateral hip and knee prostheses. 3. Intense uptake in the region of T9. There are multiple prior recent studies demonstrating posteri or thoracolumbar fusion with mild anterior wedging of T9. 4. RIGHT SC joint arthritis.
== END 2023-05-24 07:40 | disposition home or self-care (01) ==
LOC: RAD 07:40
PROVIDERS: PCP Internal Medicine; Visit Provider Specialist
DX: M25.552 Pain in left hip (principal); Z96.643 Presence of artificial hip joint, bilateral; Z96.653 Presence of artificial knee joint, bilateral; M19.09 Primary osteoarthritis, other specified site; Z98.1 Arthrodesis status
CPT/HCPCS: 78315; 99213; A9561

== ENCOUNTER → 2023-05-25 08:19 | Outpatient (BNVA) | payer MEDICARE, OTHER, SELFPAY | PROVIDERS: PCP Internal Medicine; Visit Provider Orthopaedic Surgery | DX: Z98.1 Arthrodesis status (principal) | CPT/HCPCS: 72072; 99213 ==

== ENCOUNTER → 2023-06-11 10:00 | Outpatient (BNVA) | payer MEDICARE, OTHER, SELFPAY | PROVIDERS: PCP Internal Medicine; Visit Provider Internal Medicine Pulmonary Disease | DX: R06.02 Shortness of breath (principal); R06.09 Other forms of dyspnea; D64.9 Anemia, unspecified; I11.0 Hypertensive heart disease with heart failure; I50.32 Chronic diastolic (congestive) heart failure | CPT/HCPCS: 36415; 80048; 83735; 99214 ==

== ENCOUNTER 2023-06-17 07:57 | Oncology outpatient (recurring) (ONCR) | payer MEDICARE, OTHER, SELFPAY ==
[2023-06-17] MEDS: acetaminophen 325 mg Tablet 650 MG PO (08:46)
[2023-06-17] MEDS: sodium chloride 0.9% 250 ML 75 ML IV (08:47)
[2023-06-17] MEDS: methylPREDNISolone sod succ 40 mg/mL INJ IVP (08:50)
[2023-06-17] MEDS: diphenhydrAMINE 50 mg/mL SDV 1mL 25 MG IVP (08:52)
[2023-06-17] MEDS: abatacept 1,000 MG in sodium chloride 0.9% (100 ml) 100 ML 200 MG IV (09:23)
== END 2023-07-13 23:59 | disposition home or self-care (01) ==
PROVIDERS: PCP Internal Medicine; Visit Provider Internal Medicine Rheumatology
DX: M06.042 Rheumatoid arthritis without rheumatoid factor, left hand (principal); M06.041 Rheumatoid arthritis without rheumatoid factor, right hand; Z53.9 Procedure and treatment not carried out, unspecified reason
CPT/HCPCS: 96365; 96375; J0129; J1200; J2919; J7050

== ENCOUNTER 2023-07-14 16:01 | Emergency (ER) | payer MEDICARE, OTHER, SELFPAY ==
[2023-07-14 16:12] VITALS: BP 167/90; PULSE 97; RESP 28; TEMP 37.7; O2SAT 97
--- NOTE | 2023-07-14 16:26 | ECG_ITS ---
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 Measurements Intervals [place] Rate: 86 P: 30 WV: 231 QRS: -59 QRSD: 142 T: 61 QT: 421 QTc: 504 Interpretive Statements SINUS RHYTHM WITH FIRST DEGREE AV BLOCK INTRAVENTRICULAR CONDUCTION DELAY [130+ ms QRS DURATION] PROBABLE LATERAL MYOCARDIAL INFARCTION , OF INDETERMINATE AGE [35 ms Q WAVE IN I/aVL/V5/V6] Compared to ECG 04/01/2023 12:22:29 First degree AV block now present Intraventricular conduction delay now present Myocardial infarct finding still present Electronically Signed On 07-14-2023 16:47:26 CDT by Dario Nuñez M.D. [id number]
--- NOTE | 2023-07-14 16:26 | XRR_ITS ---
PROCEDURE INFORMATION: Exam: XR Chest Exam date and time: 07/14/2023 4:37 PM Age: 77 years old Clinical indication: Dyspnea TECHNIQUE: Imaging protocol: Radiologic exam of the chest. Views: 1 view. COMPARISON: Chest x-ray of 04/01/2023 FINDINGS: Lungs: Clear. Pleural spaces: No pleural effusion identified. Heart/Mediastinum: Cardiomediastinal silhouette is stable.. Bones/joints: Hardware related to multilevel thoracolumbar and cervicothoracic spinal fusion. XR/XR chest 1V portable [id number] IMPRESSION: No acute cardiopulmonary abnormality identified.
[2023-07-14 17:07] VITALS: BP 164/78; PULSE 85; RESP 30; TEMP 38.2; O2SAT 96
--- NOTE | 2023-07-14 17:08 | PC.NURSE ---
pt was feeling faint, vital signs updated and patient rounded on. pt has increased temp
[2023-07-14 17:36] LABS: Basophils % 0.2 %; Hematocrit 36.4 % (37-53); Lymphocytes # 0.7 10^3/uL (0.8-4.8); Mean Corpuscular HGB Conc 30.5 g/dL (30-55); Mean Corpuscular Hemoglobin 26.3 pg (27-33); Mean Corpuscular Volume 86.3 fl (82-101); Mean Platelet Volume 9.3 fL (7.4-10.4); Monocytes # 1.1 10^3/uL (0.2-0.9); Monocytes % 7.8 %; Neutrophils # 11.69 10^3/uL (1.8-7.7); Neutrophils % 86.4 %; Nucleated Red Blood Cells % 0 %; Platelet Count 236 10^3/cmm (157-399); Red Blood Count 4.22 10^6/uL (3.85-5.65); Red Cell Distribution Width 20.6 % (12.1-15.1); White Blood Count 13.53 10^3/uL (3.29-11.43)
--- NOTE | 2023-07-14 17:38 | ED_ITS ---
HPI - SOB/Dyspnea 2 General: Chief Complaint: Shortness of Breath/Dyspnea Stated Complaint: sob, nausea Time Seen by Provider: 07/14/23 17:30 Source: patient Mode of arrival: ambulatory Limitations: no limitations History of Present Illness: HPI Narrative: 77-year-old male states that he had some nausea valverde over the last couple weeks a lot worse last 2 days he states that he had fevers as well and feeling very weak and like he is going to pass out. He is febrile here at 100.8. He states he had some shortness of breath but states he always has shortness of breath with his COPD denies any increased cough denies any abdominal pain. Associated symptoms: Reports fever(s) and nausea; Deny abdominal pain, chest pain or vomiting Review of Systems 2 Const: Reports: fever(s), chills, body aches and malaise; Denies: change in appetite ENMT: Denies: throat pain or dental pain Card: Denies: chest pain Resp: Reports: dyspnea GI: Reports: nausea; Denies: abdominal pain, vomiting or diarrhea : Denies: dysuria Musc: Denies: neck pain or back pain Skin/Breast: Denies: rash Neuro: Denies: headache(s) PFSH ED 2 PFSH: Medical History Peripheral arterial disease Chronic anticoagulation eliquis Unstable angina CAD (coronary artery disease) Seroma, postoperative Spinal stenosis, thoracic Atrial fibrillation Degenerative disc disease, thoracic History of prostate cancer Urgency incontinence Renal cyst Acquired calcaneovarus deformity of both feet Ascending aortic aneurysm Lumbar stenosis with neurogenic claudication Orthostatic hypotension Venous insufficiency of both lower extremities Acute blood loss as cause of postoperative anemia Anemia Failed back surgical syndrome DDD (degenerative disc disease), lumbar Chronic back pain History of TIA (transient ischemic attack) Radiation cystitis Carotid artery disease Hx of cataract Closed fracture of right patella CHF (congestive heart failure), NYHA class III EF 10/2022 43% on stress test, 50% on echo COVID-19 2020 Metatarsus adductus Osteoarthritis, generalized Seronegative rheumatoid arthritis High risk medication use prednisone and leflunomide 12/2022 Positive CORBY (antinuclear antibody) EDUARDO was negative in 2013 Gastroparesis GERD (gastroesophageal reflux disease) Cervical postlaminectomy syndrome FUAD (obstructive sleep apnea) Hyperlipidemia HTN (hypertension) Hypothyroid COPD (chronic obstructive pulmonary disease) H/O malignant neoplasm of skin Surgical History Hx of excision of epidermal inclusion cyst Hx of excision of mass 04/12/23 Dr Fitzgerald- Elliptical excision of skin and subcutaneous back mass S/P laminectomy with spinal fusion S/P spinal fusion 02/2021 - T9-S1 Dr Delarosa History of penile implant Status post spinal arthrodesis S/P lumbar fusion Status post revision of total replacement of right knee History of total bilateral knee replacement (TKR) History of cardiac cath ~2012 nonobstructive 10/2022 stress test EF 43 %, small areas prior infarcts RCA and LAD territories History of hip surgery RIGHT 04/11/19 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 History of total right hip arthroplasty History of total left hip arthroplasty History of abdominal aortic aneurysm (AAA) repair History of tonsillectomy and adenoidectomy Hx of appendectomy History of back surgery multiple procedures (>10) H/O neck surgery x 2 Hx of cholecystectomy H/O colonoscopy 2011 H/O esophagogastroduodenoscopy 2011 Family History Mother , Age 81 Bleeding disorder Clotting disorder CAD (coronary artery disease) 60s Cancer Stroke Father , Age 94 CAD (coronary artery disease) 80 Dementia Daughter Chronic kidney disease (CKD) Brother CAD (coronary artery disease) [place] Cancer Denies family history of Diabetes Suicide Anesthesia complication Lung disease Social History Smoking and tobacco/nicotine status: never used tobacco/nicotine Alcohol intake: never Substance/Drug Use: never Household members: spouse Marital status: Current occupational status: retired Special danny needs: No Agree to transfusion: Yes Physical Exam 2 Const: COMMON NORMALS: patient oriented x3 HENMT: COMMON NORMALS: normocephalic and atraumatic HEAD & SCALP: n ormocephalic and atraumatic Eye: COMMON NORMALS: Equal, round and reactive pupils present and EOMs intact bilaterally PUPIL: Yes Equal, round and reactive pupils present Neck/C-Spine: COMMON NORMALS: full ROM and supple Chest: COMMONS NORMALS: normal inspection of the chest and normal palpation of entire chest wall Resp: COMMON NORMALS: normal respiratory effort, No retractions, No use of accessory muscles and clear to auscultation bilaterally AUSCULTATION: clear to auscultation bilaterally Cardio: COMMON NORMALS: regular rate, regular rhythm and No murmurs present (Cardio) RATE: regular rate RHYTHM: regular rhythm GI: COMMON NORMALS: Normal to inspection, nondistended, normoactive bowel sounds present, Soft to palpation, non-tender and no masses PALPATION: Yes Soft to palpation Extremity: COMMON NORMALS: normal to inspection and full ROM Neuro: COMMON NORMALS: patient oriented x3, moves all extremities and no focal motor deficits Psych: COMMON NORMALS: mental status grossly normal, Normal thought process present and cooperative THOUGHT PROCESS: Normal thought process present Skin: COMMON NORMALS: no rashes or lesions noted and no wounds GENERAL SKIN EXAM: no rashes or lesions noted Course 2 Vital Signs: Vital signs: Vital Signs Temperature 100.8 F H 07/14/23 17:07 Pulse Rate 81 07/14/23 19:36 Respiratory Rate 16 07/14/23 19:36 Blood Pressure 113/75 07/14/23 19:36 Pulse Oximetry 92 07/14/23 19:36 Oxygen Delivery Me thod Room Air 07/14/23 18:31 MDM - SOB/Dyspnea Medical Decision Making Patient presents here with nausea along with some generalized weakness he was febrile here he likely has a viral syndrome blood work here is normal CT of his chest and abdomen are normal as well no signs of pneumonia he feels much improved after Tylenol and Zofran will prescribe Zofran for home he is to follow-up with PCP return if he is worsening he understands agrees to plan. Medical Records I reviewed the patient's medical records. Lab Data I reviewed the patient's lab results. 07/14/23 17:26 07/14/23 17:26 Labs/Radiology: Radiology Impressions Chest/Abdomen/Pelvis CT 07/14/23 18:03 IMPRESSION: Segmental left lower lobe pulmonary arteries intermittently opacify but this is in an area common to motion degradation which is favored over embolic process. No focal lung consolidation or other acute chest findings. IMPRESSION: No acute abdominal findings. Laboratory Results WBC 13.53 10^3/uL (3.29-11.43) H 07/14/23 17:26 RBC 4.22 10^6/uL (3.85-5.65) 07/14/23 17:26 Hgb 11.10 g/dL (11.27-16.99) L 07/14/23 17:26 Hct 36.4 % (37-53) L 07/14/23 17:26 MCV 86.3 fl (82-101) 07/14/23 17:26 MCH 26.3 pg (27-33) L 07/14/23 17:26 MCHC 30.5 g/dL (30-55) 07/14/23 17:26 RDW 20.6 % (12.1-15.1) H 07/14/23 17:26 Plt Count 236 10^3/cmm (157-399) 07/14/23 17:26 MPV 9.3 fL (7.4-10.4) 07/14/23 17:26 Neut % (Auto) 86.4 % 07/14/23 17:26 Lymph % (Auto) 5.0 % 07/14/23 17:26 [place] % (Auto) 7.8 % 07/14/23 17:26 Eos % (Auto) 0.0 % 07/14/23 17:26 Baso % (Auto) 0.2 % 07/14/23 17:26 Neut # (Auto) 11.69 10^3/uL (1.8-7.7) H 07/14/23 17:26 Lymph # (Auto) 0.7 10^3/uL (0.8-4.8) L 07/14/23 17:26 [place] # (Auto) 1.1 10^3/uL (0.2-0.9) H 07/14/23 17:26 Eos # (Auto) 0.0 10^3/uL (0.0-0.8) 07/14/23 17:26 Baso # (Auto) 0.0 10^3/uL (0.0-0.1) 07/14/23 17:26 Nucleated RBC % (auto) 0 % 07/14/23 17:26 Nucleated RBCs # 0.0 /100WBC 07/14/23 17:26 Sodium 140 mmol/L (136-145) 07/14/23 17:26 Potassium 3.7 mmol/L (3.5-5.1) 07/14/23 17:26 Chloride 96 mmol/L (98-107) L 07/14/23 17:26 Carbon Dioxide 29 mmol/L (22-29) 07/14/23 17:26 Anion Gap 18.7 (5-19) 07/14/23 17:26 BUN 21 mg/dL (8-23) 07/14/23 17:26 Creatinine 1.4 mg/dL (0.7-1.2) H 07/14/23 17:26 GFR Calculation Not Reportable 07/14/23 17:26 Glucose 122 mg/dL (65-115) H 07/14/23 17:26 Calculated Osmolality 294 mOsm/kg (285-295) 07/14/23 17:26 Lactic Acid 2.1 mmol/L (0.5-2.2) 07/14/23 17:26 Calcium 8.8 mg/dL (8.5-10.5) 07/14/23 17:26 Magnesium 1.9 mg/dL (1.7-2.3) 07/14/23 17:26 Total Bilirubin 0.9 mg/dL (0.15-1.2) 07/14/23 17:26 AST 16 U/L (0-40) 07/14/23 17:26 ALT 19 U/L (0-41) 07/14/23 17:26 Alkaline Phosphatase 71 U/L (40-130) 07/14/23 17:26 Troponin T Baseline 30 ng/L (0-15) H 07/14/23 17:26 Troponin T 120 Minute 32.89 ng/L (0-15) H 07/14/23 19:41 Delta Troponin T 2.89 ABS# (0-10) 07/14/23 19:41 NT-Pro-B Natriuret Pep 75 pg/mL (0-450) 07/14/23 17:26 Total Protein 6.9 g/dL (6.6-8.7) 07/14/23 17:26 Albumin 4.3 g/dL (3.5-5.2) 07/14/23 17:26 Globulin 2.6 g/dL (1.3-4.6) 07/14/23 17:26 Urine Color Yellow (Yellow) 07/14/23 17:49 Urine Appearance Clear (CLEAR) 07/14/23 17:49 Urine pH 7 (5-7) 07/14/23 17:49 Ur Specific [place] 1.010 (1.005-1.030) 07/14/23 17:49 Urine Protein Neg (Negative) 07/14/23 17:49 Urine Glucose (UA) Norm (Normal) 07/14/23 17:49 Urine Ketones Negative (Negative) 07/14/23 17:49 Urine Blood Neg (Negative) 07/14/23 17:49 Urine Nitrate Negative (Negative) 07/14/23 17:49 Urine Bilirubin Neg (Negative) 07/14/23 17:49 Urine Urobilinogen Norm mg/dL (Negative) 07/14/23 17:49 Ur Leukocyte Esterase Negative (Negative) 07/14/23 17:49 Influenza Type A Ag Negative (Negative) 07/14/23 17:10 Influenza Type B Ag Negative (Negative) 07/14/23 17:10 SARS-CoV-2 Ag (Rapid) negative (Negative) 07/14/23 17:10 All radiology interpretation(s) finalized by discharge EKG Data EKG 1: I personally reviewed and interpreted this EKG as follows: EKG Interpretation Date: 07/14/23 EKG interpretation time: 19:04 Interpretation: nsr hr [address] or t wave abnormalities qrs 125 qtc 440 Discharge Plan Discharge Patient Disposition: Home Clinical Impression: Nausea, Fever Condition: Stable Prescriptions: New cephalexin 500 mg capsule 500 mg PO TID 7 Days Qty: 21 0RF ondansetron 4 mg tablet,disintegrating 4 mg PO Q6H PRN (Reason: nausea and vomiting) Qty: 14 0RF No Action (DME) MARK BRACE See Rx Instructions .Route .MEDSUPPLY Qty: 1 0RF Rx Instructions: As directed carvedilol 25 mg tablet 25 mg PO BID Qty: 180 3RF diclofenac sodium 1 % gel 4 g TOPICAL QID PRN (Reason: Pain) Qty: 100 2RF (DME) Modification to AFO Brace to the left See Rx Instructions .Route .MEDSUPPLY Qty: 1 0RF Rx Instructions: As directed by [facility] and [place] baclofen 10 mg tablet 10 mg PO BID Qty: 14 0RF Hold Instructions: Resume on 04/14/23. hydralazine 50 mg tablet 50 mg PO TID Qty: 90 5RF atorvastatin 40 mg tablet 40 mg PO BEDTIME Qty: 90 3RF acetaminophen 500 mg Capsule 1,000 mg PO BID levothyroxine [Synthroid] 137 mcg tablet 137 mcg PO QAM magnesium L-lactate [Magtab] 84 mg Tablet Extended Release 84 mg PO BID 30 Days Qty: 60 1RF Eliquis 5 mg Tablet 5 mg PO BID@0900,2100 Qty: 60 2RF Hold Instructions: Resume on 04/14/23. oxybutynin chloride 5 mg tablet extended release 24hr 5 mg PO QAM pregabalin 50 mg capsule 50 mg PO BID tramadol 50 mg tablet 100 mg PO Q6H PRN (Reason: pain) Qty: 30 0RF Rx Instructions: May take 1 tab at a time if desired albuterol sulfate 2.5 mg /3 mL (0.083 %) solution for nebulization 2.5 mg inhalation Q6H PRN (Reason: Shortness Of Breath) omeprazole 40 mg Capsule,Delayed Release(Dr/Ec) 40 mg PO QAM calcium carbonate 500 mg calcium (1,250 mg) Tablet 1,000 mg PO DAILY nitroglycerin [Nitrostat] 0.4 mg Tablet, Sublingual 0.4 mg SUBLINGUAL Q5M PRN (Reason: Chest Pain) Rx Instructions: do not exceed 3 doses per episode albuterol sulfate 90 mcg/actuation HFA aerosol inhaler 1 - 2 puff INHALATION Q4H PRN (Reason: Wheezing) bisacodyl 5 mg tablet 5 mg PO DAILY PRN (Reason: constipation) Qty: 30 0RF isosorbide mononitrate 30 mg Tablet Extended Release 24 Hr 60 mg PO BEDTIME Qty: 30 0RF amiodarone [Pacerone] 200 mg Tablet 200 mg PO DAILY Qty: 30 0RF liothyronine 5 mcg tablet 5 mcg PO BID prednisone 10 mg tablet 10 mg PO DAILY sennosides-docusate sodium [Stool Softener-Laxative] 8.6-50 mg Tablet 1 tab PO DAILY Qty: 30 0RF bumetanide 2 mg tablet 2 mg PO DAILY Qty: 60 2RF potassium chloride 10 mEq tablet extended release 20 meq PO DAILY Qty: 30 0RF Discharge Orders: Discharge ED (Routine); Ordered 07/14/23 Ordered By: Laron Mims Referrals: Marsha Turner MD [Primary Care Provider] - 4-7 days Discharge Diet: Advance as tolerated Discharge Activity: Resume usual activity Patient Instructions: Fever - Adult, Acute Nausea and Vomiting (ED) Coding Level of Care Code ED Economics Professor for Lauren Zimmerman
[2023-07-14] MEDS: acetaminophen 500 mg Tablet 1000 MG PO (17:39)
[2023-07-14] MEDS: sodium chloride 0.9% 1,000 ML 999 ML IV (17:42)
[2023-07-14 17:46] LABS: SARS Covid-2 Antigen negative (Negative)
[2023-07-14 17:55] LABS: Troponin(5th) Baseline 30 ng/L (0-15)
[2023-07-14 17:57] LABS: Lactic Sepsis W/Reflex 2.1 mmol/L (0.5-2.2)
[2023-07-14] MEDS: ondansetron 2 mg/ML SDV 2 mL 4 MG IVP (18:00)
--- NOTE | 2023-07-14 18:03 | CTR_ITS ---
PROCEDURE INFORMATION: Exam: CTA Chest With Contrast Exam date and time: 07/14/2023 6:48 PM Age: 77 years old Clinical indication: Other: Abd pain; Dyspnea; Additional info: SOB TECHNIQUE: Imaging protocol: Computed tomographic angiography of the chest with contrast. Exam focused on the arteries. 3D rendering (Not supervised by radiologist): MIP and/or 3D reconstructed images were created by the technologist. Radiation optimization: All CT scans at this facility use at least one of these dose optimization techniques: automated exposure control; mA and/or kV adjustment per patient size (includes targeted exams where dose is matched to clinical indication); or iterative reconstruction. Contrast material: OMNI 350; Contrast volume: 100 ml; Contrast route: INTRAVENOUS (IV); COMPARISON: CT angio chest [id number] 11/14/2021 8:22 AM RADIATION DOSE METRICS: Total DLP (mGy-cm): 1747 FINDINGS: Pulmonary arteries: No central or proximal segmental pulmonary emboli. Some segmental pulmonary arteries in the left lower lobe around series 7, image 272 demonstrate intermittent opacification but this is in an area of motion caused by the left ventricle. Aorta: 4 cm diameter of the ascending aorta, unchanged. Lungs: No focal consolidation. Pleural spaces: No pneumothorax. No pleural effusion. Heart: Coronary calcifications. No pericardial effusion. RV:LV ratio equals 1. Lymph nodes: No enlarged lymph nodes. Bones/joints: No acute findings. Degenerative and postsurgical changes. Soft tissues: No acute findings. PROCEDURE INFORMATION: Exam: CT Abdomen And Pelvis With Contrast Exam date and time: 07/14/2023 6:48 PM Age: 77 years old Clinical indication: Other: Abd pain; Dyspnea; Additional info: SOB TECHNIQUE: Imaging protocol: Computed tomography of the abdomen and pelvis with contrast. Radiation optimization: All CT scans at this facility use at least one of these dose optimization techniques: automated exposure control; mA and/or kV adjustment per patient size (includes targeted exams where dose is matched to clinical indication); or iterative reconstruction. Contrast material: OMNI 350; Contrast volume: 100 ml; Contrast route: INTRAVENOUS (IV); COMPARISON: [place] [id number] 08/19/2022 2:48 PM RADIATION DOSE METRICS: Total DLP (mGy-cm): 1747 FINDINGS: Liver: No acute findings Gallbladder and bile ducts: Cholecystectomy. Pancreas: No ductal dilation. Spleen: No splenomegaly. Adrenal glands: No mass. Kidneys and ureters: No stones or hydronephrosis. Simple left renal cyst, no follow-up indicated. Stomach and bowel: No obstruction. Appendix: No evidence of appendicitis. Intraperitoneal space: No free air. No significant fluid collection. Vasculature: No abdominal aortic aneurysm. Lymph nodes: No enlarged lymph nodes. Urinary bladder: Obscured by bilateral hip hardware. Reproductive: Penile prosthesis. Otherwise obscured by bilateral hip hardware. Bones/joints: No acute findings. Degenerative and postsurgical changes. Soft tissues: No acute findings. CT/CT angio chest w abd pel w con IMPRESSION: Segmental left lower lobe pulmonary arteries intermittently opacify but this is in an area common to motion degradation which is favored over embolic process. No focal lung consolidation or other acute chest findings. IMPRESSION: No acute abdominal findings.
[2023-07-14 18:07] LABS: Add Urine Microscopic? NO; Charge for UA Resulting for Rev
[2023-07-14 18:10] LABS: Influenza A by IFA Negative (Negative); Influenza B by IFA Negative (Negative)
[2023-07-14 18:16] LABS: Bilirubin Urine Neg (Negative); Blood Urine Neg (Negative); Glucose Urine UA Norm (Normal); Ketones Urine Negative (Negative); Leukocyte Esterase Urine Negative (Negative); Nitrate Urine Negative (Negative); Protein Urine Neg (Negative); Urine Appearance Clear (CLEAR); Urine Color Yellow (Yellow); Urobilinogen Urine Norm (Negative); pH Urine 7 (5-7)
[2023-07-14 18:29] LABS: Alanine Aminotransferase 19 U/L (0-41); Albumin Level 4.3 g/dL (3.5-5.2); Alkaline Phosphatase 71 U/L (40-130); Anion Gap 18.7 (5-19); Aspartate Amino Transferase 16 U/L (0-40); Blood Urea Nitrogen 21 mg/dL (8-23); Calcium 8.8 mg/dL (8.5-10.5); Carbon Dioxide 29 mmol/L (22-29); Chloride 96 mmol/L (98-107); Creatinine Clr Calc Pharmacy 57.4923; Globulin 2.6 g/dL (1.3-4.6); Glucose 122 mg/dL (65-115); Magnesium 1.9 mg/dL (1.7-2.3); NT Pro B Type Natriuretic Pept 75 pg/mL (0-450); Osmolality Calculated 294 mOsm/kg (285-295); Potassium 3.7 mmol/L (3.5-5.1); Sodium 140 mmol/L (136-145); Total Bilirubin 0.9 mg/dL (0.15-1.2); Total Protein 6.9 g/dL (6.6-8.7)
[2023-07-14 18:31] VITALS: BP 148/80; PULSE 79; O2SAT 93
[2023-07-14] MEDS: iohexol 350 mg/mL 500 mL Btl (per mL) IV (19:03)
--- NOTE | 2023-07-14 19:04 | ECG_ITS ---
[facility] Test Date: 2023-07-14 Pat Name: Kojo Marinelli Department: Room: Gender: Male Crack Off Person: : 1945 Requested By: Genaro Mclean Order Number: [id number] Tessa MD: Priyanka Rivas M.D. Measurements Intervals [place] Rate: 83 P: -71 UT: 81 QRS: -60 QRSD: 125 T: 64 QT: 401 QTc: 471 Interpretive Statements Sinus rhythm with a first-degree AV block MODERATE VOLTAGE CRITERIA FOR LVH, CONSIDER NORMAL VARIANT [MEETS CRITERIA IN ONE OF: R(aVL), S(V1), R(V5), R(V5/V6)+S(V1)] POSSIBLE ANTERIOR MYOCARDIAL INFARCTION , PROBABLY OLD [30 ms Q WAVE IN V3/V4, OR R < 0.2 mV IN V4] INFERIOR MYOCARDIAL INFARCTION , PROBABLY OLD [40+ ms Q WAVE AND/OR ST/T ABNORMALITY IN II/aVF] Compared to ECG 07/14/2023 16:11:32 Junctional rhythm now present Sinus rhythm no longer present First degree AV block no longer present Intraventricular conduction delay no longer present Myocardial infarct finding still present Electronically Signed On 07-15-2023 23:10:05 CDT by Priyanka Rivas M.D. [email or web address]
[2023-07-14 19:23] LABS: Reflex Lactate Order REFLEX LACTIC ORDERD
[2023-07-14 19:36] VITALS: BP 113/75; PULSE 81; RESP 16; O2SAT 92
[2023-07-14 20:19] LABS: Troponin 5 2HR 32.89 ng/L (0-15); Troponin 5 2HR Delta 2.89 ABS# (0-10)
== END 2023-07-14 20:32 | disposition home or self-care (01) ==
PROVIDERS: Emergency Medicine; Emergency Provider Emergency Medicine; PCP Internal Medicine
DX: R50.9 Fever, unspecified (principal); R11.0 Nausea; Z79.01 Long term (current) use of anticoagulants; Z11.52 Encounter for screening for COVID-19; I25.10 Atherosclerotic heart disease of native coronary artery without angina pectoris; Z86.73 Personal history of transient ischemic attack (TIA), and cerebral infarction without residual deficits; Z85.46 Personal history of malignant neoplasm of prostate; I11.0 Hypertensive heart disease with heart failure; I50.9 Heart failure, unspecified; E78.5 Hyperlipidemia, unspecified; J44.9 Chronic obstructive pulmonary disease, unspecified
CPT/HCPCS: 36415; 71045; 71275; 74177; 80053; 81003; 83605; 83735; 83880; 84484; 85025; 87040; 87426; 87804; 93005; 96361; 96374; 99285; J2405; J7030; Q9967

== ENCOUNTER 2023-07-15 12:30 | Emergency (ER) | payer MEDICARE, OTHER, SELFPAY ==
--- NOTE | 2023-07-15 12:47 | XRR_ITS ---
PROCEDURE INFORMATION: Exam: XR Lumbosacral Spine Exam date and time: 07/15/2023 1:03 PM Age: 77 years old Clinical indication: Injury or trauma; Fall; Blunt trauma (contusions or hematomas) TECHNIQUE: Imaging protocol: Radiologic exam of the lumbosacral spine. Views: 2 or 3 views. COMPARISON: CR XR lumbar spine 2-3V* [id number] 04/03/2023 09:03 FINDINGS: Bones/joints: Extensive thoracolumbar posterior fusion with pedicle screws and rods. The orthopedic hardware appears intact. There are also screws spanning the sacroiliac joints bilaterally. No fractures are identified. Diffuse bone demineralization. No acute lumbosacral spine abnormality is appreciated Soft tissues: Unremarkable. XR/XR lumbar spine 2-3V* [id number] IMPRESSION: Extensive thoracolumbar surgical fusion and bilateral sacroiliac joint fusion but no acute lumbosacral spine abnormality identified
[2023-07-15 13:19] VITALS: BP 149/73; PULSE 78; TEMP 37.6; O2SAT 96; BMI 35.6
--- NOTE | 2023-07-15 16:02 | ED_ITS ---
HPI - Fall General: Chief Complaint: Fall Stated Complaint: fall- back pain Time Seen by Provider: 07/15/23 16:01 History of Present Illness: 77-year-old male patient comes in today for complaints of fall with complaints of low back pain, shoulder pain, right hip pain, right knee pain. Patient also reports some difficulty with urination. Patient states injury occurred this morning when he went to sit in the chair and it tipped to the right causing him to land on his right side. Patient appears nontoxic. Patient appears in no acute distress. Review of Systems General: Reports: 10 or more systems reviewed and unremarkable except in HPI and below : Reports: dysuria Musc: Reports: extremity pain PFSH ED PFSH: Medical History Peripheral arterial disease Chronic anticoagulation eliquis Unstable angina CAD (coronary artery disease) Seroma, postoperative Spinal stenosis, thoracic Atrial fibrillation Degenerative disc disease, thoracic History of prostate cancer Urgency incontinence Renal cyst Acquired calcaneovarus deformity of both feet Ascending aortic aneurysm Lumbar stenosis with neurogenic claudication Orthostatic hypotension Venous insufficiency of both lower extremities Acute blood loss as cause of postoperative anemia Anemia Failed back surgical syndrome DDD (degenerative disc disease), lumbar Chronic back pain History of TIA (transient ischemic attack) Radiation cystitis Carotid artery disease Hx of cataract Closed fracture of right patella CHF (congestive heart failure), NYHA class III EF 10/2022 43% on stress test, 50% on echo COVID-19 2020 Metatarsus adductus Osteoarthritis, generalized Seronegative rheumatoid arthritis High risk medication use prednisone and leflunomide 12/2022 Positive CORBY (antinuclear antibody) EDUARDO was negative in 2013 Gastroparesis GERD (gastroesophageal reflux disease) Cervical postlaminectomy syndrome FUAD (obstructive sleep apnea) Hyperlipidemia HTN (hypertension) Hypothyroid COPD (chronic obstructive pulmonary disease) H/O malignant neoplasm of skin Surgical History Hx of excision of epidermal inclusion cyst Hx of excision of mass 04/12/23 Dr Fitzgerald- Elliptical excision of skin and subcutaneous back mass S/P laminectomy with spinal fusion S/P spinal fusion 02/2021 - T9-S1 Dr Delarosa History of penile implant Status post spinal arthrodesis S/P lumbar fusion Status post revision of total replacement of right knee History of total bilateral knee replacement (TKR) History of cardiac cath ~2012 nonobstructive 10/2022 stress test EF 43 %, small areas prior infarcts RCA and LAD territories History of hip surgery RIGHT 04/11/19 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 History of total right hip arthroplasty History of total left hip arthroplasty History of abdominal aortic aneurysm (AAA) repair History of tonsillectomy and adenoidectomy Hx of appendectomy History of back surgery multiple procedures (>10) H/O neck surgery x 2 Hx of cholecystectomy H/O colonoscopy 2011 H/O esophagogastroduodenoscopy 2011 Family History Mother , Age 81 Bleeding disorder Clotting disorder CAD (coronary artery disease) 60s Cancer Stroke Father , Age 94 CAD (coronary artery disease) 80 Dementia Daughter Chronic kidney disease (CKD) Brother CAD (coronary artery disease) [place] Cancer Denies family history of Diabetes Suicide Anesthesia complication Lung disease Social History Smoking and tobacco/nicotine status: never used tobacco/nicotine Alcohol intake: never Substance/Drug Use: never Household members: spouse Marital status: Current occupational status: retired Special danny needs: No Agree to transfusion: Yes Physical Exam Const: COMMON NORMALS: alert HENMT: COMMON NORMALS: normocephalic HEAD & SCALP: normocephalic Neck/C-Spine: COMMON NORMALS: full ROM Resp: COMMON NORMALS: normal respiratory effort and clear to auscultation bilaterally AUSCULTATION: clear to auscultation bilaterally Cardio: COMMON NORMALS: regular rate RATE: regular rate Back/Pelvis: COMMON NORMALS: thoracic and lumbar spine normal to inspection Extremity: NARRATIVE EXTREMITY EXAM: Patient complains of anterior shoulder tenderness on palpation, patient reports inguinal discomfort on the right side, patient also reports anterior knee pain. Patient is weightbearing to transfer without difficulty. Patient also reports some low back pain and tenderness to palpation to the paraspinous muscles of the low back. Neuro: SENSORIUM/ORIENTATION: Yes alert Skin: COMMON NORMALS: turgor normal GENERAL SKIN EXAM: turgor normal Course Vital Signs: Vital signs: Vital Signs Temperature 99.6 F 07/15/23 13:19 Pulse Rate 85 07/15/23 16:30 Respiratory Rate 18 07/15/23 16:30 Blood Pressure 149/75 07/15/23 16:30 Pulse Oximetry 94 07/15/23 16:30 Oxygen Delivery Me thod Room Air 07/15/23 16:23 MDM - Fall Medical Decision Making 77-year-old male patient comes in today for complaints of right shoulder pain, right knee pain, right hip pain, and low back pain after fall injury. Patient appears nontoxic. Patient also reports some burning with urination. Vital signs are normal. Respirations are even. Skin is warm and dry. Differential diagnosis includes fracture, contusion, sprain. X-ray of the shoulder, knee, hip, and lumbar spine noted no hardware damage or acute fractures. Urinalysis had a large amount of white blood cells, leukocyte esterases. Will treat patient with antibiotic for urinary tract infection. Patient has medications that he uses at home for pain. Patient was recommended to follow-up with primary care for further instructions. Patient was recommended to return to ED for new concerns or worsening symptoms. Lab Data Radiology Impressions Lumbar Spine X-Ray 07/15/23 12:47 IMPRESSION: Extensive thoracolumbar surgical fusion and bilateral sacroiliac joint fusion but no acute lumbosacral spine abnormality identified Hip/Pelvis X-Ray 07/15/23 16:04 IMPRESSION: No evidence of an acute right hip abnormality. The patient's right hip prosthesis is intact Knee X-Ray 07/15/23 16:04 IMPRESSION: Trace right knee effusion. The right knee prosthesis is intact Shoulder X-Ray 07/15/23 16:04 IMPRESSION: No radiographic evidence of an acute right shoulder abnormality Laboratory Results Urine Color Elenita (Yellow) 07/15/23 16:34 Urine Appearance Cloudy (CLEAR) A 07/15/23 16:34 Urine pH 5 (5-7) 07/15/23 16:34 Ur Specific [place] 1.020 (1.005-1.030) 07/15/23 16:34 Urine Protein 1+ (Negative) H 07/15/23 16:34 Urine Glucose (UA) Norm (Normal) 07/15/23 16:34 Urine Ketones 1+ (Negative) H 07/15/23 16:34 Urine Blood 2+ (Negative) H 07/15/23 16:34 Urine Nitrate Negative (Negative) 07/15/23 16:34 Urine Bilirubin 1+ (Negative) H 07/15/23 16:34 Urine Urobilinogen 8 mg/dL (Negative) H 07/15/23 16:34 Ur Leukocyte Esterase 2+ (Negative) H 07/15/23 16:34 Urine RBC 15-25 /hpf (0-2) H 07/15/23 16:34 Urine WBC >100 /hpf (0-5) H 07/15/23 16:34 Ur Squamous Epith Cells 5-10 /hpf (0-5) H 07/15/23 16:34 Amorphous Sediment Not Reportable 07/15/23 16:34 Urine Bacteria 2+ /hpf (NONE) H 07/15/23 16:34 Urine Mucus Trace /hpf 07/15/23 16:34 All radiology interpretation(s) finalized by discharge Discharge Plan Discharge Patient Disposition: Home Clinical Impression: Acute UTI Fall from chair Qualifiers: Encounter type: initial encounter Qualified Code(s): W07.XXXA - Fall from chair, initial encounter Acute shoulder pain Qualifiers: Laterality: right Qualified Code(s): M25.511 - Pain in right shoulder Acute hip pain Qualifiers: Laterality: right Qualified Code(s): M25.551 - Pain in right hip Condition: Stable Prescriptions: New cefdinir 300 mg capsule 300 mg PO BID 7 Days Qty: 14 0RF No Action (DME) MARK BRACE See Rx Instructions .Route .MEDSUPPLY Qty: 1 0RF Rx Instructions: As directed carvedilol 25 mg tablet 25 mg PO BID Qty: 180 3RF diclofenac sodium 1 % gel 4 g TOPICAL QID PRN (Reason: Pain) Qty: 100 2RF (DME) Modification to AFO Brace to the left See Rx Instructions .Route .MEDSUPPLY Qty: 1 0RF Rx Instructions: As directed by [facility] [place] baclofen 10 mg tablet 10 mg PO BID Qty: 14 0RF Hold Instructions: Resume on 04/14/23. hydralazine 50 mg tablet 50 mg PO TID Qty: 90 5RF atorvastatin 40 mg tablet 40 mg PO BEDTIME Qty: 90 3RF acetaminophen 500 mg Capsule 1,000 mg PO BID levothyroxine [Synthroid] 137 mcg tablet 137 mcg PO QAM magnesium L-lactate [Magtab] 84 mg Tablet Extended Release 84 mg PO BID 30 Days Qty: 60 1RF Eliquis 5 mg Tablet 5 mg PO BID@0900,2100 Qty: 60 2RF Hold Instructions: Resume on 04/14/23. oxybutynin chloride 5 mg tablet extended release 24hr 5 mg PO QAM tramadol 50 mg tablet 100 mg PO Q6H PRN (Reason: pain) Qty: 30 0RF Rx Instructions: May take 1 tab at a time if desired albuterol sulfate 2.5 mg /3 mL (0.083 %) solution for nebulization 2.5 mg inhalation Q6H PRN (Reason: Shortness Of Breath) omeprazole 40 mg Capsule,Delayed Release(Dr/Ec) 40 mg PO QAM calcium carbonate 500 mg calcium (1,250 mg) Tablet 1,000 mg PO DAILY nitroglycerin [Nitrostat] 0.4 mg Tablet, Sublingual 0.4 mg SUBLINGUAL Q5M PRN (Reason: Chest Pain) Rx Instructions: do not exceed 3 doses per episode albuterol sulfate 90 mcg/actuation HFA aerosol inhaler 1 - 2 puff INHALATION Q4H PRN (Reason: Wheezing) bisacodyl 5 mg tablet 5 mg PO DAILY PRN (Reason: constipation) Qty: 30 0RF isosorbide mononitrate 30 mg Tablet Extended Release 24 Hr 60 mg PO BEDTIME Qty: 30 0RF amiodarone [Pacerone] 200 mg Tablet 200 mg PO DAILY Qty: 30 0RF liothyronine 5 mcg tablet 5 mcg PO BID prednisone 10 mg tablet 10 mg PO DAILY sennosides-docusate sodium [Stool Softener-Laxative] 8.6-50 mg Tablet 1 tab PO DAILY Qty: 30 0RF bumetanide 2 mg tablet 2 mg PO DAILY Qty: 60 2RF potassium chloride 10 mEq tablet extended release 20 meq PO DAILY Qty: 30 0RF cephalexin 500 mg capsule 500 mg PO TID 7 Days Qty: 21 0RF ondansetron 4 mg tablet,disintegrating 4 mg PO Q6H PRN (Reason: nausea and vomiting) Qty: 14 0RF pregabalin 25 mg capsule 25 mg PO BID Discharge Orders: Discharge ED (Routine); Ordered 07/15/23 Ordered By: Eleazar Johnston Referrals: Marsha Turner MD [Primary Care Provider] - Discharge Diet: Usual diet Discharge Activity: Increase activity as tolerated Patient Instructions: Fall Prevention for Older Adults (ED), Urinary Tract Infection in Older Adults (ED) Activity Restrictions/Additional Instructions: Continue with routine care. Drink plenty of water and fluids. Take antibiotics as directed. Follow-up with primary care in 3 to 5 days for recheck. Return to ED for new concerns. Coding Level of Care Code ED Outbound Sales Advisor for Lauren Zimmerman
--- NOTE | 2023-07-15 16:04 | XRR_ITS ---
PROCEDURE INFORMATION: Exam: XR Right Hip Exam date and time: 07/15/2023 4:18 PM Age: 77 years old Clinical indication: Injury or trauma; Fall; Blunt trauma (contusions or hematomas); Right; Hip and pelvic region; Additional info: Fall, include pelvis, include pelvis TECHNIQUE: Imaging protocol: Radiologic exam of the right hip. Views: 1 view hip with pelvis when performed. COMPARISON: CT angio chest PE protcl [id number] 03/19/2023 18:48 FINDINGS: Bones/joints: There is normal anatomic alignment of the right hip in this patient with a right hip prosthesis. No suggestion of prosthetic loosening. Lumbar spine fusion and sacroiliac fusion. The iliac bones and pubic rami are intact. The sacrum appears intact. Soft tissues: Unremarkable. Other: Penile prosthesis. XR/XR hip RT 2-3V wo/w pel* [id number] IMPRESSION: No evidence of an acute right hip abnormality. The patient's right hip prosthesis is intact
--- NOTE | 2023-07-15 16:04 | XRR_ITS ---
PROCEDURE INFORMATION: Exam: XR Right Knee Exam date and time: 07/15/2023 4:18 PM Age: 77 years old Clinical indication: Injury or trauma; Fall; Blunt trauma; Knee; Right TECHNIQUE: Imaging protocol: Radiologic exam of the right knee. Views: 3 views. COMPARISON: CR XR knees AP WB w RT lmt ORTH 09/11/2022 11:04 FINDINGS: Bones/joints: There is normal anatomic alignment of the right knee prosthesis. No fracture is identified. Trace right knee effusion. Soft tissues: Normal. Vasculature: Vascular calcifications projecting over the distal right femoral artery and right popliteal artery. XR/XR knee RT 3V* [id number] IMPRESSION: Trace right knee effusion. The right knee prosthesis is intact
--- NOTE | 2023-07-15 16:04 | XRR_ITS ---
PROCEDURE INFORMATION: Exam: XR Right Shoulder Exam date and time: 07/15/2023 4:18 PM Age: 77 years old Clinical indication: Injury or trauma; Fall; Blunt trauma (contusions or hematomas); Shoulder; Right TECHNIQUE: Imaging protocol: Radiologic exam of the right shoulder. Views: 2 or more views. COMPARISON: CT angio chest PE protcl [id number] 03/19/2023 18:48 FINDINGS: Bones/joints: No evidence of right shoulder fracture or dislocation. Mild chronic degenerative hypertrophic changes at the right AC joint. The right clavicle is intact. Lateral downsloping of the acromion putting the patient at risk for rotator cuff pathology. Extensive cervical spinal fusion and thoracolumbar fusion. Soft tissues: Normal. XR/XR shoulder RT min 2V* [id number] IMPRESSION: No radiographic evidence of an acute right shoulder abnormality
[2023-07-15 16:23] VITALS: PULSE 84; RESP 18; O2SAT 93
[2023-07-15 16:30] VITALS: BP 149/75; PULSE 85; RESP 18; O2SAT 94
--- NOTE | 2023-07-15 16:31 | PC.PHAR ---
MEDICATIONS FOR CEPHALEXIN 500MG AND ZOFRAN 4MG WERE SENT TO [facility] LAST NIGHT. 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 07/15/23
[2023-07-15] MEDS: ketorolac 30 mg/mL INJ IM (16:33)
[2023-07-15 16:52] LABS: Add Urine Microscopic? YES; Bilirubin Urine 1+ (Negative); Blood Urine 2+ (Negative); Glucose Urine UA Norm (Normal); Ketones Urine 1+ (Negative); Leukocyte Esterase Urine 2+ (Negative); Nitrate Urine Negative (Negative); Protein Urine 1+ (Negative); Urine Appearance Cloudy (CLEAR); Urine Color Amber (Yellow); Urobilinogen Urine 8 mg/dL (Negative); pH Urine 5 (5-7)
[2023-07-15 16:58] LABS: Bacteria Urine 2+ /hpf; Mucus Urine TRACE /hpf; RBC Urine 15-25 /hpf (0-2); WBC Urine >100 /hpf (0-5)
[2023-07-15 16:59] LABS: Add Urine Culture? Yes
--- NOTE | 2023-07-15 17:54 | PC.NURSE ---
given im per order
[2023-07-15] MEDS: ondansetron 4 MG Tablet PO (18:01)
[2023-07-15] MEDS: cefTRIAXone 1,000 mg SDV 1000 MG IM (18:01)
== END 2023-07-15 18:07 | disposition home or self-care (01) ==
PROVIDERS: Emergency Provider Nurse Practitioner Family; PCP Internal Medicine
DX: M25.551 Pain in right hip (principal); M25.511 Pain in right shoulder; N39.0 Urinary tract infection, site not specified; Z79.01 Long term (current) use of anticoagulants; Z96.643 Presence of artificial hip joint, bilateral; I25.10 Atherosclerotic heart disease of native coronary artery without angina pectoris; Z85.46 Personal history of malignant neoplasm of prostate; Z86.73 Personal history of transient ischemic attack (TIA), and cerebral infarction without residual deficits; I11.0 Hypertensive heart disease with heart failure; I50.9 Heart failure, unspecified; E78.5 Hyperlipidemia, unspecified; J44.9 Chronic obstructive pulmonary disease, unspecified; W07.XXXA Fall from chair, initial encounter
CPT/HCPCS: 72100; 73030; 73502; 73562; 81001; 87077; 87086; 87186; 96372; 99284; J0696; J1885; Q0162

== ENCOUNTER → 2023-08-02 10:13 | Outpatient (BNVA) | payer MEDICARE, OTHER, SELFPAY | PROVIDERS: PCP Internal Medicine; Visit Provider Internal Medicine Cardiovascular Disease | DX: I11.0 Hypertensive heart disease with heart failure (principal); I50.32 Chronic diastolic (congestive) heart failure; E78.2 Mixed hyperlipidemia; I25.10 Atherosclerotic heart disease of native coronary artery without angina pectoris; R06.09 Other forms of dyspnea; I71.21 Aneurysm of the ascending aorta, without rupture; I48.0 Paroxysmal atrial fibrillation; Z79.899 Other long term (current) drug therapy; Z79.01 Long term (current) use of anticoagulants | CPT/HCPCS: 99214 ==

== ENCOUNTER 2023-08-05 08:08 | Outpatient (CLI) | payer MEDICARE, OTHER, SELFPAY ==
--- NOTE | 2023-08-05 09:08 | XR_ITS ---
WS: [id number] KUB, AP view, 08/05/2023 Clinical Data: OBSTIPATION Comparison: KUB, 06/17/2021 Findings: No abnormal intraabdominal masses or calcifications are seen. There is no dilatated small bowel or ev idence of obstruction. There is a large amount of fecal material throughout the colon. The thoracolumbar sacral fusion remai ns stable. There are bilateral hip arthroplasties. There are cholecystectomy clips in the right upper quadrant. XR/XR KUB [id number] Impression: Large amount of fecal material in the colon.
== END 2023-08-05 08:09 | disposition home or self-care (01) ==
PROVIDERS: PCP Internal Medicine; Visit Provider Internal Medicine
DX: K56.41 Fecal impaction (principal); M43.25 Fusion of spine, thoracolumbar region; Z96.643 Presence of artificial hip joint, bilateral
CPT/HCPCS: 74018

== ENCOUNTER → 2023-08-10 11:01 | Outpatient (BNVA) | payer MEDICARE, OTHER, SELFPAY | PROVIDERS: PCP Internal Medicine; Visit Provider Podiatrist Foot & Ankle Surgery | DX: I73.9 Peripheral vascular disease, unspecified (principal); L60.3 Nail dystrophy; D62 Acute posthemorrhagic anemia; E03.9 Hypothyroidism, unspecified; Z79.01 Long term (current) use of anticoagulants | CPT/HCPCS: 11721 ==

== ENCOUNTER 2023-08-12 08:07 | Oncology outpatient (recurring) (ONCR) | payer MEDICARE, SELFPAY ==
--- NOTE | 2023-07-22 08:05 | PC.NURSE ---
Patient reports that he is currently on two antibiotics for a UTI, informed that per Dr. Woodruff's protocol patient is to be off antibiotics for 2 weeks before next infusion can be given. patient will reschedule appt and schedule follow up with Dr. Woodruff for new set of orders due to orders expiring 08/22/23. Patient verbalized understanding with plan of care.
[2023-08-12 08:18] VITALS: BP 136/69; PULSE 68; RESP 18; TEMP 36.7; O2SAT 96
[2023-08-12] MEDS: acetaminophen 325 mg Tablet 650 MG PO (08:39)
[2023-08-12] MEDS: diphenhydrAMINE 50 mg/mL SDV 1mL 25 MG IVP (08:39)
[2023-08-12] MEDS: methylPREDNISolone sod succ 40 mg/mL INJ IVP (08:40)
[2023-08-12] MEDS: sodium chloride 0.9% (100 ml) 100 ML 75 ML (09:10)
[2023-08-12] MEDS: abatacept 1,000 MG in sodium chloride 0.9% (100 ml) 100 ML 200 MG IV (09:10)
== END 2023-08-13 23:59 | disposition home or self-care (01) ==
PROVIDERS: PCP Internal Medicine; Visit Provider Internal Medicine Rheumatology
DX: M06.042 Rheumatoid arthritis without rheumatoid factor, left hand (principal); M06.041 Rheumatoid arthritis without rheumatoid factor, right hand; Z53.9 Procedure and treatment not carried out, unspecified reason
CPT/HCPCS: J0129; J1200; J2919

== ENCOUNTER → 2023-08-26 09:19 | Outpatient (BNVA) | payer MEDICARE, OTHER, SELFPAY | PROVIDERS: PCP Internal Medicine; Visit Provider Internal Medicine Rheumatology | DX: M06.041 Rheumatoid arthritis without rheumatoid factor, right hand (principal); M06.042 Rheumatoid arthritis without rheumatoid factor, left hand; Z79.899 Other long term (current) drug therapy; Z71.85 Encounter for immunization safety counseling; R76.8 Other specified abnormal immunological findings in serum; M15.9 Polyosteoarthritis, unspecified | CPT/HCPCS: 99214 ==

== ENCOUNTER 2023-08-27 15:17 | Outpatient (CLI) | payer MEDICARE, OTHER, SELFPAY ==
--- NOTE | 2023-08-27 15:21 | XRR_ITS ---
PROCEDURE INFORMATION: Exam: XR Thoracic Spine Exam date and time: 08/27/2023 3:24 PM Age: 77 years old Clinical indication: Pain in thoracic spine; Additional info: Thoracic pain TECHNIQUE: Imaging protocol: Radiologic exam of the thoracic spine. Views: 3 views. COMPARISON: 1. CR XR thoracic spine 3V* [id number] 05/25/2023 8:19 AM 2. CTA chest 07/14/2023. FINDINGS: Bones/joints: Partially visualized extensive thoracic spine fixation hardware. No evidence of hardware complications. Specifically, no evidence for hardware loosening or periprosthetic fractures. Partially visualized lower cervical spine fixation hardware without discrete complications. Normal anatomic alignment. Moderate multilevel degenerative changes of the spine, as manifested by multilevel anterior osteophytes and multilevel decrease in intervertebral disc space. Stable disc space narrowing at T8-T9 with decreased vertebral body height at T8. The spinal canal is patent. There is no evidence of acutely displaced skeletal fractures. There is no evidence of joint dislocation. Soft tissues: Visualized chest is unremarkable. No acute soft tissue findings. XR/XR thoracic spine 3V* [id number] IMPRESSION: 1. No acute skeletal pathology or hardware complications. 2. Stable thoracic spine and fixation hardware.
== END 2023-08-27 15:18 | disposition home or self-care (01) ==
LOC: RAD 15:20
PROVIDERS: PCP Internal Medicine; Visit Provider Nurse Practitioner Family
DX: R06.02 Shortness of breath (principal); M48.04 Spinal stenosis, thoracic region; M25.78 Osteophyte, vertebrae; M47.9 Spondylosis, unspecified
CPT/HCPCS: 72072

== ENCOUNTER → 2023-08-31 13:11 | Outpatient (BNVA) | payer MEDICARE, OTHER, SELFPAY | PROVIDERS: PCP Internal Medicine; Visit Provider Orthopaedic Surgery | DX: M54.9 Dorsalgia, unspecified (principal); M54.6 Pain in thoracic spine; Z98.1 Arthrodesis status | CPT/HCPCS: 72072; 99213 ==

== ENCOUNTER 2023-09-01 15:09 | Outpatient (CLI) | payer MEDICARE, OTHER, SELFPAY ==
--- NOTE | 2023-09-01 15:39 | XR_ITS ---
WS: [id number] Exam: XR chest 2V* [id number] Date/Time of Exam: 09/01/2023 3:40 PM Reason For Exam: OBSTIPATION Comparison 07/14/2023. The lungs are hyperinflated and clear. Heart size top limits normal. The mediastinum is normal in con tour. No pleural effusions. Osseous structures are intact. Extensive multilevel thoracic and upper florencio mbar posterior fusion. There is also extensive fusion hardware in the cervical spine. XR/XR chest 2V* [id number] IMPRESSION: 1. Pulmonary hyperinflation which may indicate COPD. No acute process is noted.
== END 2023-09-01 15:10 | disposition home or self-care (01) ==
PROVIDERS: PCP Internal Medicine; Visit Provider Internal Medicine
DX: R05.2 Subacute cough (principal)
CPT/HCPCS: 71046

== ENCOUNTER 2023-09-08 08:30 | Oncology outpatient (recurring) (ONCR) | payer MEDICARE, OTHER, SELFPAY ==
[2023-08-16 11:05] LABS: Basophils % 0.4 %; Eosinophils % 0.3 %; Hematocrit 35.8 % (37-53); Lymphocytes # 0.4 10^3/uL (0.8-4.8); Lymphocytes % 5.5 %; Mean Corpuscular Hemoglobin 28.6 pg (27-33); Mean Corpuscular Volume 92.3 fl (82-101); Mean Platelet Volume 9.6 fL (7.4-10.4); Monocytes # 0.5 10^3/uL (0.2-0.9); Monocytes % 6.7 %; Neutrophils # 6.87 10^3/uL (1.8-7.7); Neutrophils % 86.2 %; Nucleated Red Blood Cells % 0 %; Platelet Count 206 10^3/cmm (157-399); Red Blood Count 3.88 10^6/uL (3.85-5.65); Red Cell Distribution Width 20.2 % (12.1-15.1); Reticulocyte % 1.5 % (0.5-2.0); White Blood Count 7.96 10^3/uL (3.29-11.43)
[2023-08-16 11:17] LABS: Erythrocyte Sedimentation Rate 48 mm/hr (0-10)
[2023-08-16 11:24] LABS: Alanine Aminotransferase 16 U/L (0-41); Albumin Level 3.8 g/dL (3.5-5.2); Alkaline Phosphatase 62 U/L (40-130); Anion Gap 14.6 (5-19); Aspartate Amino Transferase 13 U/L (0-40); Blood Urea Nitrogen 18 mg/dL (8-23); C Reactive Protein 3.7 mg/L (0.0-4.9); Calcium 8.5 mg/dL (8.5-10.5); Carbon Dioxide 28 mmol/L (22-29); Chloride 101 mmol/L (98-107); Creatinine Clr Calc Pharmacy 74.4471; Ferritin 34 ng/mL (30-400); Globulin 2.8 g/dL (1.3-4.6); Glucose 128 mg/dL (65-115); Iron 202 ug/dL (59-158); Lactate Dehydrogenase 182 U/L (135-225); Osmolality Calculated 294 mOsm/kg (285-295); Percent Saturation 65.3 % (20-50); Potassium 3.6 mmol/L (3.5-5.1); Sodium 140 mmol/L (136-145); Total Bilirubin 0.3 mg/dL (0.15-1.2); Total Iron Binding Capacity 309 mcg/dl; Total Protein 6.6 g/dL (6.6-8.7); Unsaturated Iron Binding 107 ug/dL (112-347)
[2023-08-16 11:39] LABS: Vitamin B12 234 pg/mL (232-1245)
[2023-08-16 11:43] LABS: LAB Peripheral Smear Sent for Review
[2023-08-16 11:45] LABS: Folate Level 7.9 ng/mL (4.5-32.2)
[2023-08-17 12:15] LABS: PROTEIN, TOTAL 6.1 g/dL (6.1-8.1)
[2023-08-18 10:29] LABS: KAPPA LIGHT CHAIN, FREE, SERUM 42.5 mg/L (3.3-19.4); KAPPA/LAMBDA LIGHT CHAINS FREE 1.65 (0.26-1.65); LAMBDA LIGHT CHAIN, FREE, SERU 25.8 mg/L (5.7-26.3)
[2023-08-18 12:30] LABS: ALBUMIN 3.2 g/dL (3.8-4.8); ALPHA 1 GLOBULIN 0.3 g/dL (0.2-0.3); ALPHA 2 GLOBULIN 1.2 g/dL (0.5-0.9); BETA 1 GLOBULIN 0.4 g/dL (0.4-0.6); BETA 2 GLOBULIN 0.3 g/dL (0.2-0.5); GAMMA GLOBULIN 0.7 g/dL (0.8-1.7)
[2023-08-20 17:11] LABS: Immunofixation Serum Normal pattern.
[2023-08-25 14:43] LABS: Soluble Transferrin Receptor 2.08 mg/L (0.76-1.76)
[2023-08-30 10:26] LABS: Basophils % 0.5 %; Eosinophils % 0.5 %; Lymphocytes # 0.5 10^3/uL (0.8-4.8); Lymphocytes % 7.7 %; Mean Corpuscular HGB Conc 31.5 g/dL (30-55); Mean Corpuscular Hemoglobin 28.8 pg (27-33); Mean Corpuscular Volume 91.6 fl (82-101); Mean Platelet Volume 9.2 fL (7.4-10.4); Monocytes # 0.7 10^3/uL (0.2-0.9); Neutrophils # 5.33 10^3/uL (1.8-7.7); Neutrophils % 80.4 %; Nucleated Red Blood Cells % 0 %; Platelet Count 189 10^3/cmm (157-399); Red Blood Count 3.71 10^6/uL (3.85-5.65); Red Cell Distribution Width 18.6 % (12.1-15.1); White Blood Count 6.62 10^3/uL (3.29-11.43)
[2023-08-30 10:46] LABS: Iron 39 ug/dL (59-158); Total Iron Binding Capacity 323 mcg/dl; Unsaturated Iron Binding 284 ug/dL (112-347)
[2023-09-08 08:21] VITALS: BP 123/70; PULSE 65; RESP 18; TEMP 37; O2SAT 95
[2023-09-08] MEDS: sodium chloride 0.9% 250 ML 75 ML IV (08:53)
[2023-09-08] MEDS: methylPREDNISolone sod succ 40 mg/mL INJ IVP (08:54)
[2023-09-08] MEDS: diphenhydrAMINE 50 mg/mL SDV 1mL 25 MG IVP (09:01)
[2023-09-08] MEDS: acetaminophen 325 mg Tablet 650 MG PO (09:03)
[2023-09-08] MEDS: ferric carboxy (PYXIS) 750 MG in sodium chloride 0.9% (100 ml) 100 ML 345 MG IV (09:07)
[2023-09-08] MEDS: abatacept 1,000 MG in sodium chloride 0.9% (100 ml) 100 ML 200 MG IV (10:01)
[2023-09-08 10:45] VITALS: BP 122/58; PULSE 61; RESP 18; TEMP 36.8; O2SAT 94
== END 2023-09-12 23:59 | disposition home or self-care (01) ==
PROVIDERS: Internal Medicine Medical Oncology; PCP Internal Medicine; Visit Provider Internal Medicine Rheumatology
DX: D50.9 Iron deficiency anemia, unspecified (principal); Z53.9 Procedure and treatment not carried out, unspecified reason
CPT/HCPCS: 36415; 80053; 82274; 82607; 82728; 82746; 83010; 83540; 83550; 83615; 83883; 84155; 84165; 84238; 85025; 85045; 85651; 86140; 86334; 96365; 96366; 96375; 99204; A4222; J0129; J1200; J1439; J2919; J7050

== ENCOUNTER → 2023-09-28 15:00 | Outpatient (BNVA) | payer MEDICARE, OTHER, SELFPAY | PROVIDERS: PCP Internal Medicine; Visit Provider Nurse Practitioner Family | DX: L57.8 Other skin changes due to chronic exposure to nonionizing radiation (principal); L21.8 Other seborrheic dermatitis; L81.4 Other melanin hyperpigmentation; Z85.828 Personal history of other malignant neoplasm of skin; S00.80XA Unspecified superficial injury of other part of head, initial encounter; X58.XXXA Exposure to other specified factors, initial encounter; D48.5 Neoplasm of uncertain behavior of skin; L57.0 Actinic keratosis; L24.4 Irritant contact dermatitis due to drugs in contact with skin | CPT/HCPCS: 11102; 17000; 99214 ==

== ENCOUNTER → 2023-09-29 10:48 | Outpatient (BNVA) | payer MEDICARE, OTHER, SELFPAY | PROVIDERS: PCP Internal Medicine; Visit Provider Specialist | DX: S80.01XA Contusion of right knee, initial encounter; W19.XXXA Unspecified fall, initial encounter; Z96.653 Presence of artificial knee joint, bilateral | CPT/HCPCS: 73560; 73565; 99214 ==

== ENCOUNTER 2023-10-01 15:14 | Emergency (ER) | payer MEDICARE, OTHER, SELFPAY ==
[2023-10-01 15:16] VITALS: BP 165/72; PULSE 113; RESP 18; TEMP 36.8; O2SAT 93; BMI 36.7
--- NOTE | 2023-10-01 15:23 | ECG_ITS ---
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 Measurements Intervals [place] Rate: 65 P: -86 ID: [id number] QRS: -55 QRSD: 130 T: 28 QT: 440 QTc: 459 Interpretive Statements SINUS RHYTHM VOLTAGE CRITERIA FOR LVH [MEETS CRITERIA IN ONE OF: R(aVL), S(V1), R(V5), R(V5/V6)+S(V1)] POSSIBLE ANTERIOR MYOCARDIAL INFARCTION , PROBABLY OLD [30 ms Q WAVE IN V3/V4, OR R < 0.2 mV IN V4] INFERIOR MYOCARDIAL INFARCTION , PROBABLY OLD [40+ ms Q WAVE AND/OR ST/T ABNORMALITY IN II/aVF] Compared to ECG 07/14/2023 19:04:56 Sinus rhythm no longer present Myocardial infarct finding still present Electronically Signed On 10-01-2023 22:44:08 CDT by Dario Nuñez M.D. [id number]
--- NOTE | 2023-10-01 15:44 | XRR_ITS ---
PROCEDURE INFORMATION: Exam: XR Chest Exam date and time: 10/01/2023 3:50 PM Age: 77 years old Clinical indication: Pain; Angina pectoris; Additional info: Cp TECHNIQUE: Imaging protocol: Radiologic exam of the chest. Views: 1 view. COMPARISON: CR XR chest 2V* [id number] 09/01/2023 3:42 PM FINDINGS: Lungs: Unremarkable. No consolidation or mass. Pleural spaces: Unremarkable. No pleural effusion. No pneumothorax. Heart/Mediastinum: Unremarkable. No cardiomegaly. Bones/joints: Metallic rods and pedicle screws are noted in the cervicothoracic spine well as the thoracolumbar spine. XR/XR chest 1V portable [id number] IMPRESSION: No acute findings.
--- NOTE | 2023-10-01 15:46 | ED_ITS ---
HPI - Chest Pain 2 General: Chief Complaint: Chest Pain Stated Complaint: cp Time Seen by Provider: 10/01/23 15:20 History of Present Illness: Patient comes in by EMS for chest pain. States that he has been having off-and-on chest pressure over the last couple of days of the last couple minutes at a time. States that today he was at the clinic when he developed chest pressure about an hour prior to arrival. States it has not gone away. States he got nitro x 1 in the ambulance without significant relief. States he is also having some shortness of breath with it. States he has a history of congestive heart failure for which she takes Bumex twice a day. States he has not missed any of his Bumex. States he has not had any stents placed. Does endorse increased orthopnea and dyspnea on exertion over the past few days. Denies fever, nausea, vomiting, or diarrhea. Review of Systems 2 General: Reports: 10 or more systems reviewed and unremarkable except in HPI and below PFSH ED 2 PFSH: Medical History Anemia HTN (hypertension) High risk medication use prednisone and leflunomide 12/2022 Atrial fibrillation Ascending aortic aneurysm Patient had a CT of the chest on 07/14/2023. The ascending aorta was found to be 4.0 cm in diameter. Essentially unchanged CHF (congestive heart failure), NYHA class III EF 10/2022 43% on stress test, 50% on echo Peripheral arterial disease Chronic anticoagulation eliquis Unstable angina CAD (coronary artery disease) Seroma, postoperative Spinal stenosis, thoracic Degenerative disc disease, thoracic History of prostate cancer Urgency incontinence Renal cyst Acquired calcaneovarus deformity of both feet Lumbar stenosis with neurogenic claudication Orthostatic hypotension Venous insufficiency of both lower extremities Acute blood loss as cause of postoperative anemia Failed back surgical syndrome DDD (degenerative disc disease), lumbar Chronic back pain History of TIA (transient ischemic attack) Radiation cystitis Carotid artery disease Hx of cataract Closed fracture of right patella COVID-2020 Metatarsus adductus Osteoarthritis, generalized Seronegative rheumatoid arthritis Positive CORBY (antinuclear antibody) EDUARDO was negative in 2013 Gastroparesis GERD (gastroesophageal reflux disease) Cervical postlaminectomy syndrome FUAD (obstructive sleep apnea) Hyperlipidemia Hypothyroid COPD (chronic obstructive pulmonary disease) H/O malignant neoplasm of skin Surgical History Hx of excision of epidermal inclusion cyst Hx of excision of mass 04/12/23 Dr Fitzgerald- Elliptical excision of skin and subcutaneous back mass S/P laminectomy with spinal fusion S/P spinal fusion 02/2021 - T9-S1 Dr Delarosa History of penile implant Status post spinal arthrodesis S/P lumbar fusion Status post revision of total replacement of right knee History of total bilateral knee replacement (TKR) History of cardiac cath ~2012 nonobstructive 10/2022 stress test EF 43 %, small areas prior infarcts RCA and LAD territories History of hip surgery RIGHT 04/11/19 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 History of total right hip arthroplasty History of total left hip arthroplasty History of abdominal aortic aneurysm (AAA) repair History of tonsillectomy and adenoidectomy Hx of appendectomy History of back surgery multiple procedures (>10) H/O neck surgery x 2 Hx of cholecystectomy H/O colonoscopy 2011 H/O esophagogastroduodenoscopy 2011 Family History Mother , Age 81 Bleeding disorder Clotting disorder CAD (coronary artery disease) 60s Cancer Stroke Father , Age 94 CAD (coronary artery disease) 80 Dementia Daughter Chronic kidney disease (CKD) Brother CAD (coronary artery disease) [place] Cancer Denies family history of Diabetes Suicide Anesthesia complication Lung disease Social History Smoking and tobacco/nicotine status: never used tobacco/nicotine Alcohol intake: never Substance/Drug Use: never Household members: spouse Marital status: Current occupational status: retired Special danny needs: No Agree to transfusion: Yes Physical Exam 2 Const: COMMON NORMALS: no acute distress, patient oriented x3 and alert HENMT: COMMON NORMALS: normocephalic and atraumatic HEAD & SCALP: n ormocephalic and atraumatic Eye: COMMON NORMALS: Equal, round and reactive pupils present and EOMs intact bilaterally PUPIL: Yes Equal, round and reactive pupils present Neck/C-Spine: COMMON NORMALS: full ROM and supple Resp: COMMON NORMALS: normal respiratory effort, No retractions and No use of accessory muscles Cardio: COMMON NORMALS: regular rate and regular rhythm RATE: regular rate RHYTHM: regular rhythm GI: COMMON NORMALS: Soft to palpation and non-tender PALPATION: Yes Soft to palpation Neuro: COMMON NORMALS: patient oriented x3 SENSORIUM/ORIENTATION: Yes alert Psych: COMMON NORMALS: mental status grossly normal and cooperative Course 2 Vital Signs: Vital signs: Vital Signs Temperature 98.2 F 10/01/23 15:16 Pulse Rate 71 10/01/23 17:51 Respiratory Rate 18 10/01/23 15:16 Blood Pressure 155/96 10/01/23 17:51 Pulse Oximetry 94 10/01/23 17:51 Oxygen Delivery Me thod Room Air 10/01/23 15:16 MDM - Chest Pain Medical Decision Making Patient comes in by EMS for chest pain. States that he has been having off-and-on chest pressure over the last couple of days of the last couple minutes at a time. States that today he was at the clinic when he developed chest pressure about an hour prior to arrival. States it has not gone away. States he got nitro x 1 in the ambulance without significant relief. States he is also having some shortness of breath with it. States he has a history of congestive heart failure for which she takes Bumex twice a day. States he has not missed any of his Bumex. States he has not had any stents placed. Does endorse increased orthopnea and dyspnea on exertion over the past few days. Denies fever, nausea, vomiting, or diarrhea. On physical exam he has 2+ pitting edema bilateral lower extremities. Will check labs, EKG, x-ray chest, and reassess. On reassessment I talked to the patient about the test results. He is resting comfortably in the gurney at this time with no signs of distress. His white blood cell count was normal at 7.33. His hemoglobin is 11.7. Sodium, potassium, creatinine are within normal limits. He is BNP is normal at 179. His initial troponin came back at 29 and his repeat was 26. This appears to be around his baseline. His CT shows no acute intrathoracic pathology. I talked with him at length about symptoms that should prompt immediate return to the emergency department. Will discharge home at this time with precautions to return for worsening or changing symptoms. Lab Data 10/01/23 15:29 10/01/23 15:29 Radiology Impressions Chest X-Ray 10/01/23 15:44 IMPRESSION: No acute findings. Chest CTA 10/01/23 16:22 IMPRESSION: No acute findings. Laboratory Results WBC 7.33 10^3/uL (3.29-11.43) 10/01/23 15: RBC 3.87 10^6/uL (3.85-5.65) 10/01/23 15: Hgb 11.70 g/dL (11.27-16.99) 10/01/23 15: Hct 36.6 % (37-53) L 10/01/23 15: MCV 94.6 fl (82-101) 10/01/23 15: MCH 30.2 pg (27-33) 10/01/23 15: MCHC 32.0 g/dL (30-55) 10/01/23 15: RDW 19.1 % (12.1-15.1) H 10/01/23 15: Plt Count 194 10^3/cmm (157-399) 10/01/23: MPV 9.4 fL (7.4-10.4) 10/01/23 15: Neut % (Auto) 86.7 % 10/01/23: Lymph % (Auto) 6.5 % 10/01/23: [place] % (Auto) 5.9 % 10/01/23: Eos % (Auto) 0.0 % 10/01/23: Baso % (Auto) 0.1 % 10/01/23: Neut # (Auto) 6.35 10^3/uL (1.8-7.7) 10/01/23: Lymph # (Auto) 0.5 10^3/uL (0.8-4.8) L 10/01/23: [place] # (Auto) 0.4 10^3/uL (0.2-0.9) 10/01/23: Eos # (Auto) 0.0 10^3/uL (0.0-0.8) 10/01/23: Baso # (Auto) 0.0 10^3/uL (0.0-0.1) 10/01/23: Nucleated RBC % (auto) 0 % 10/01/23:29 Nucleated RBCs # 0.0 /100WBC 10/01/23 15:29 Sodium 140 mmol/L (136-145) 10/01/23 15:29 Potassium 3.9 mmol/L (3.5-5.1) 10/01/23 15:29 Chloride 101 mmol/L (98-107) 10/01/23 15:29 Carbon Dioxide 28 mmol/L (22-29) 10/01/23 15:29 Anion Gap 14.9 (5-19) 10/01/23 15:29 BUN 20 mg/dL (8-23) 10/01/23 15:29 Creatinine 1.2 mg/dL (0.7-1.2) 10/01/23 15:29 GFR Calculation Not Reportable 10/01/23 15:29 Glucose 122 mg/dL (65-115) H 10/01/23 15:29 Calculated Osmolality 294 mOsm/kg (285-295) 10/01/23 15:29 Calcium 8.7 mg/dL (8.5-10.5) 10/01/23 15:29 Total Bilirubin 0.3 mg/dL (0.15-1.2) 10/01/23 15:29 AST 18 U/L (0-40) 10/01/23 15:29 ALT 21 U/L (0-41) 10/01/23 15:29 Alkaline Phosphatase 82 U/L (40-130) 10/01/23 15:29 Troponin T Baseline 29 ng/L (0-15) H 10/01/23 15:29 Troponin T 120 Minute 26.91 ng/L (0-15) H 10/01/23 17:40 Delta Troponin T -2.09 ABS# (0-10) L 10/01/23 17:40 NT-Pro-B Natriuret Pep 179 pg/mL (0-450) 10/01/23 15:29 Total Protein 6.3 g/dL (6.6-8.7) L 10/01/23 15:29 Albumin 4.1 g/dL (3.5-5.2) 10/01/23 15:29 Globulin 2.2 g/dL (1.3-4.6) 10/01/23 15:29 Lipase 48 U/L (13-60) 10/01/23 15:29 All radiology interpretation(s) finalized by discharge Discharge Plan Discharge Patient Disposition: Home Clinical Impression: Chest pain Condition: Stable Prescriptions: No Action (DME) MARK BRACE See Rx Instructions .Route .MEDSUPPLY Qty: 1 0RF Rx Instructions: As directed carvedilol 25 mg tablet 25 mg PO BID Qty: 180 3RF diclofenac sodium 1 % gel 4 g TOPICAL QID PRN (Reason: Pain) Qty: 100 2RF diphenhydramine HCl [Allergy (diphenhydramine)] 25 mg capsule 25 mg PO DAILY (DME) Modification to AFO Brace to the left See Rx Instructions .Route .MEDSUPPLY Qty: 1 0RF Rx Instructions: As directed by Alpha and Wrights abatacept (with maltose) IV omeprazole 40 mg capsule,delayed release(DR/EC) 40 mg PO QAM Qty: 90 1RF prednisone 10 mg tablet 10 mg PO DAILY Qty: 90 1RF pregabalin 25 mg capsule 25 mg PO BID Qty: 180 1RF atorvastatin 40 mg tablet 40 mg PO BEDTIME Qty: 90 3RF hydralazine 50 mg tablet See Rx Instructions .ROUTE .COMPLEX Qty: 90 3RF Dose Instruction: TAKE 1 TABLET BY MOUTH THREE TIMES DAILY Rx Instructions: TAKE 1 TABLET BY MOUTH THREE TIMES DAILY acetaminophen 500 mg Capsule 1,000 mg PO BID levothyroxine [Synthroid] 137 mcg tablet 137 mcg PO QAM magnesium L-lactate [Magtab] 84 mg Tablet Extended Release 84 mg PO BID 30 Days Qty: 60 1RF Eliquis 5 mg Tablet 5 mg PO BID@0900,2100 Qty: 60 2RF Hold Instructions: Resume on 04/14/23. albuterol sulfate 2.5 mg /3 mL (0.083 %) solution for nebulization 2.5 mg inhalation Q6H PRN (Reason: Shortness Of Breath) nitroglycerin [Nitrostat] 0.4 mg Tablet, Sublingual 0.4 mg SUBLINGUAL Q5M PRN (Reason: Chest Pain) Rx Instructions: do not exceed 3 doses per episode albuterol sulfate 90 mcg/actuation HFA aerosol inhaler 1 - 2 puff INHALATION Q4H PRN (Reason: Wheezing) isosorbide mononitrate 30 mg Tablet Extended Release 24 Hr 60 mg PO BEDTIME Qty: 30 0RF amiodarone [Pacerone] 200 mg Tablet 200 mg PO DAILY Qty: 30 0RF liothyronine 5 mcg tablet 5 mcg PO BID sennosides-docusate sodium [Stool Softener-Laxative] 8.6-50 mg Tablet 1 tab PO DAILY Qty: 30 0RF bumetanide 2 mg tablet 2 mg PO DAILY Qty: 60 2RF potassium chloride 10 mEq tablet extended release 20 meq PO DAILY Qty: 30 0RF Discharge Orders: Discharge ED (Routine); Ordered 10/01/23 Ordered By: Ko Wallace Referrals: Marsha Turner MD [Primary Care Provider] - Patient Instructions: Chest Pain (ED), Lymphedema (ED) Coding Level of Care Code ED [employer] Supervisor for Lauren Zimmerman
[2023-10-01 15:53] LABS: Basophils % 0.1 %; Hematocrit 36.6 % (37-53); Lymphocytes # 0.5 10^3/uL (0.8-4.8); Lymphocytes % 6.5 %; Mean Corpuscular Hemoglobin 30.2 pg (27-33); Mean Corpuscular Volume 94.6 fl (82-101); Mean Platelet Volume 9.4 fL (7.4-10.4); Monocytes # 0.4 10^3/uL (0.2-0.9); Monocytes % 5.9 %; Neutrophils # 6.35 10^3/uL (1.8-7.7); Neutrophils % 86.7 %; Nucleated Red Blood Cells % 0 %; Platelet Count 194 10^3/cmm (157-399); Red Blood Count 3.87 10^6/uL (3.85-5.65); Red Cell Distribution Width 19.1 % (12.1-15.1); White Blood Count 7.33 10^3/uL (3.29-11.43)
[2023-10-01 16:06] LABS: Alanine Aminotransferase 21 U/L (0-41); Albumin Level 4.1 g/dL (3.5-5.2); Alkaline Phosphatase 82 U/L (40-130); Anion Gap 14.9 (5-19); Aspartate Amino Transferase 18 U/L (0-40); Blood Urea Nitrogen 20 mg/dL (8-23); Calcium 8.7 mg/dL (8.5-10.5); Carbon Dioxide 28 mmol/L (22-29); Chloride 101 mmol/L (98-107); Creatinine Clr Calc Pharmacy 67.5869; Globulin 2.2 g/dL (1.3-4.6); Glucose 122 mg/dL (65-115); Lipase 48 U/L (13-60); Osmolality Calculated 294 mOsm/kg (285-295); Potassium 3.9 mmol/L (3.5-5.1); Sodium 140 mmol/L (136-145); Total Bilirubin 0.3 mg/dL (0.15-1.2); Total Protein 6.3 g/dL (6.6-8.7)
[2023-10-01 16:09] LABS: Troponin(5th) Baseline 29 ng/L (0-15)
[2023-10-01 16:20] LABS: NT Pro B Type Natriuretic Pept 179 pg/mL (0-450)
--- NOTE | 2023-10-01 16:22 | CTR_ITS ---
PROCEDURE INFORMATION: Exam: CTA Chest Without And With Contrast Exam date and time: 10/01/2023 5:07 PM Age: 77 years old Clinical indication: Sternal or substernal pain; Additional info: Concern for aortic dissection TECHNIQUE: Imaging protocol: Computed tomographic angiography of the chest without and with contrast. Exam focused on the arteries. 3D rendering (Not supervised by radiologist): MIP and/or 3D reconstructed images were created by the technologist. Radiation optimization: All CT scans at this facility use at least one of these dose optimization techniques: automated exposure control; mA and/or kV adjustment per patient size (includes targeted exams where dose is matched to clinical indication); or iterative reconstruction. Contrast material: OMNI 350; Contrast volume: 100 ml; Contrast route: INTRAVENOUS (IV); COMPARISON: CT angio chest PE protcl [id number] 07/14/2023 6:48 PM RADIATION DOSE METRICS: Total DLP (mGy-cm): 1288.96 FINDINGS: Pulmonary arteries: Normal. No pulmonary emboli. Aorta: Unremarkable. No aortic aneurysm. No aortic dissection. Lungs: Unremarkable. No consolidation. No masses. Pleural spaces: Unremarkable. No pneumothorax. No pleural effusion. Heart: Mild cardiomegaly is noted. Coronary arteries: Coronary artery calcifications are noted. Lymph nodes: Unremarkable. No enlarged lymph nodes. Bones/joints: Metallic fixation rods and pedicle screws are noted throughout the thoracolumbar spine. Soft tissues: Unremarkable. CT/CT angio chest [id number] IMPRESSION: No acute findings.
[2023-10-01] MEDS: iohexol 350 mg/mL 500 mL Btl (per mL) IV (17:10)
[2023-10-01 17:51] VITALS: BP 155/96; PULSE 71; O2SAT 94
[2023-10-01 18:09] LABS: Troponin 5 2HR 26.91 ng/L (0-15)
[2023-10-01 18:13] LABS: Troponin 5 2HR Delta -2.09 ABS# (0-10)
== END 2023-10-01 18:41 | disposition home or self-care (01) ==
PROVIDERS: Emergency Provider Emergency Medicine; PCP Internal Medicine
DX: R07.9 Chest pain, unspecified (principal); Z79.01 Long term (current) use of anticoagulants; J44.9 Chronic obstructive pulmonary disease, unspecified; I11.0 Hypertensive heart disease with heart failure; I50.9 Heart failure, unspecified; I25.10 Atherosclerotic heart disease of native coronary artery without angina pectoris; Z85.46 Personal history of malignant neoplasm of prostate; Z86.73 Personal history of transient ischemic attack (TIA), and cerebral infarction without residual deficits; E78.5 Hyperlipidemia, unspecified
CPT/HCPCS: 36415; 71045; 71275; 80053; 83690; 83880; 84484; 85025; 93005; 99285; Q9967

== ENCOUNTER 2023-10-06 08:30 | Oncology outpatient (recurring) (ONCR) | payer MEDICARE, OTHER, SELFPAY ==
[2023-09-17 07:59] VITALS: BP 98/61; PULSE 66; RESP 20; TEMP 36.4; O2SAT 94
[2023-09-17] MEDS: ferric carboxy (PYXIS) 750 MG in sodium chloride 0.9% (100 ml) 100 ML 345 MG IV (08:31)
[2023-09-17 11:57] VITALS: BP 108/64; PULSE 68; RESP 16; TEMP 36.5; O2SAT 95
[2023-10-06 08:25] VITALS: BP 144/71; PULSE 71; RESP 16; TEMP 36.7; O2SAT 98
[2023-10-06] MEDS: acetaminophen 325 mg Tablet 650 MG PO (08:51)
[2023-10-06] MEDS: diphenhydrAMINE 50 mg/mL SDV 1mL 25 MG IVP (08:51)
[2023-10-06] MEDS: sodium chloride 0.9% 250 ML 75 ML IV (08:51)
[2023-10-06] MEDS: methylPREDNISolone sod succ 40 mg/mL INJ IVP (08:52)
[2023-10-06] MEDS: abatacept 1,000 MG in sodium chloride 0.9% (100 ml) 100 ML 200 MG IV (09:33)
[2023-10-06 10:05] VITALS: BP 114/67; PULSE 58; RESP 16; TEMP 36.3; O2SAT 95
== END 2023-10-13 23:59 | disposition home or self-care (01) ==
PROVIDERS: PCP Internal Medicine; Visit Provider Internal Medicine Rheumatology
DX: Z53.9 Procedure and treatment not carried out, unspecified reason (principal); D50.8 Other iron deficiency anemias; M06.042 Rheumatoid arthritis without rheumatoid factor, left hand; M06.041 Rheumatoid arthritis without rheumatoid factor, right hand; Z79.899 Other long term (current) drug therapy
CPT/HCPCS: 96365; 96375; A4222; J0129; J1200; J1439; J2919; J7050

== ENCOUNTER → 2023-10-20 13:06 | Outpatient (BNVA) | payer MEDICARE, OTHER, SELFPAY | PROVIDERS: PCP Internal Medicine; Visit Provider Podiatrist Foot & Ankle Surgery | DX: L60.8 Other nail disorders (principal); I73.9 Peripheral vascular disease, unspecified; L60.3 Nail dystrophy; E03.9 Hypothyroidism, unspecified; Z79.01 Long term (current) use of anticoagulants | CPT/HCPCS: 11721 ==

== ENCOUNTER 2023-11-03 08:00 | Oncology outpatient (recurring) (ONCR) | payer MEDICARE, OTHER, SELFPAY ==
[2023-10-22 09:43] LABS: Basophils % 0.3 %; Eosinophils % 0.4 %; Lymphocytes # 0.5 10^3/uL (0.8-4.8); Lymphocytes % 6.3 %; Mean Corpuscular HGB Conc 32.2 g/dL (30-55); Mean Corpuscular Hemoglobin 30.9 pg (27-33); Mean Platelet Volume 9.5 fL (7.4-10.4); Monocytes # 0.7 10^3/uL (0.2-0.9); Monocytes % 8.5 %; Neutrophils # 6.38 10^3/uL (1.8-7.7); Neutrophils % 83.8 %; Nucleated Red Blood Cells % 0 %; Platelet Count 165 10^3/cmm (157-399); Red Blood Count 3.75 10^6/uL (3.85-5.65); Red Cell Distribution Width 17.8 % (12.1-15.1); White Blood Count 7.61 10^3/uL (3.29-11.43)
[2023-10-22 09:58] LABS: Alanine Aminotransferase 19 U/L (0-41); Albumin Level 3.7 g/dL (3.5-5.2); Alkaline Phosphatase 77 U/L (40-130); Aspartate Amino Transferase 16 U/L (0-40); Blood Urea Nitrogen 16 mg/dL (8-23); Calcium 8.6 mg/dL (8.5-10.5); Carbon Dioxide 26 mmol/L (22-29); Chloride 103 mmol/L (98-107); Globulin 2.7 g/dL (1.3-4.6); Glucose 114 mg/dL (65-115); Iron 78 ug/dL (59-158); Osmolality Calculated 290 mOsm/kg (285-295); Percent Saturation 35.2 % (20-50); Sodium 139 mmol/L (136-145); Total Bilirubin 0.5 mg/dL (0.15-1.2); Total Iron Binding Capacity 221 mcg/dl; Total Protein 6.4 g/dL (6.6-8.7); Unsaturated Iron Binding 143 ug/dL (112-347)
[2023-11-03] MEDS: acetaminophen 325 mg Tablet 650 MG PO (08:51)
[2023-11-03] MEDS: sodium chloride 0.9% 250 ML 75 ML IV (08:52)
[2023-11-03] MEDS: diphenhydrAMINE 50 mg/mL SDV 1mL 25 MG IVP (08:53)
[2023-11-03] MEDS: methylPREDNISolone sod succ 40 mg/mL INJ IVP (08:53)
[2023-11-03] MEDS: abatacept 1,000 MG in sodium chloride 0.9% (100 ml) 100 ML 200 MG IV (09:14)
[2023-11-03 10:05] VITALS: BP 122/68; PULSE 67; RESP 18; TEMP 36.8; O2SAT 98
== END 2023-11-13 23:55 | disposition home or self-care (01) ==
PROVIDERS: Internal Medicine Medical Oncology; PCP Internal Medicine; Visit Provider Internal Medicine Rheumatology
DX: M06.042 Rheumatoid arthritis without rheumatoid factor, left hand (principal); Z53.9 Procedure and treatment not carried out, unspecified reason; M06.041 Rheumatoid arthritis without rheumatoid factor, right hand; Z79.899 Other long term (current) drug therapy
CPT/HCPCS: 11623; 13132; 17000; 36415; 80053; 83540; 83550; 85025; 96375; 96413; 99213; A4222; J0129; J1200; J2919; J7050

== ENCOUNTER → 2023-11-09 08:34 | Outpatient (BNVA) | payer MEDICARE, OTHER, SELFPAY | PROVIDERS: PCP Internal Medicine; Visit Provider Nurse Practitioner Family | DX: L24.4 Irritant contact dermatitis due to drugs in contact with skin (principal); L81.4 Other melanin hyperpigmentation; Z85.828 Personal history of other malignant neoplasm of skin | CPT/HCPCS: 99214 ==

== ENCOUNTER 2023-11-17 13:03 | Inpatient (IN) | payer MEDICARE, OTHER, SELFPAY ==
[2023-11-17] VITALS (13 sets, daily range): BP systolic 130–189; BP diastolic 79–98; PULSE 60–85; RESP 12–22; TEMP 36.8–37; O2SAT 90–96; BMI 37.3
--- NOTE | 2023-11-17 13:05 | ECG_ITS ---
[facility] Test Date: 2023-11-17 Pat Name: Kojo Marinelli Department: Room: Gender: Male Academic Counselor: : 1945 Requested By: Checo Wall Order Number: [id number] Tessa MD: Priyanka Rivas M.D. Measurements Intervals [place] Rate: 71 P: -78 MA: 145 QRS: -62 QRSD: 121 T: 11 QT: 416 QTc: 454 Interpretive Statements ECTOPIC ATRIAL RHYTHM MODERATE VOLTAGE CRITERIA FOR LVH, CONSIDER NORMAL VARIANT [MEETS CRITERIA IN ONE OF: R(aVL), S(V1), R(V5), R(V5/V6)+S(V1)] POSSIBLE ANTERIOR MYOCARDIAL INFARCTION , PROBABLY OLD [30 ms Q WAVE IN V3/V4, OR R < 0.2 mV IN V4] INFERIOR MYOCARDIAL INFARCTION , PROBABLY OLD [40+ ms Q WAVE AND/OR ST/T ABNORMALITY IN II/aVF] Compared to ECG 10/01/2023 15:23:11 Ectopic atrial rhythm now present Sinus rhythm no longer present Myocardial infarct finding still present Electronically Signed On 11-17-2023 17:37:34 CDT by Priyanka Rivas M.D. [id number]
--- NOTE | 2023-11-17 13:14 | XR_ITS ---
WS: [id number] Examination: XR chest 1V portable [id number] Reason for Exam: chest pain Date: 11/17/2023 Comparison: 10/01/2023 Findings: The heart is enlarged. There is no edema or effusion No new dense consolidation is identified. Extensive surgical changes are identified to the cervical thoracic junction as well as the lower thor acic and upper lumbar spine. XR/XR chest 1V portable [id number] Impression: There is cardiomegaly without failure or consolidation.
--- NOTE | 2023-11-17 13:19 | W.ED.CHESTPA ---
HPI - Chest Pain General: Chief Complaint: Chest Pain Stated Complaint: Chest Pain Time Seen by Provider: 11/17/23 13:14 History of Present Illness: 77-year-old male presents emergency room with complaints of chest discomfort and worsening shortness of breath. Minimal exertion causes severe shortness of breath with any activity. Describes it as pressure like someone sitting on his chest. Radiates into his left arm at times. The last 15 to 20 minutes symptoms more resolved spontaneously. No diaphoresis no recent flulike symptoms cough or hemoptysis. Patient has a known history of atrial fibrillation he does have an ascending aortic aneurysm with a history of congestive heart failure and coronary artery disease. Associated symptoms: Reports dyspnea; Deny abdominal pain or fever(s) Related Data Home Medications Medication Instructions Recorded Confirmed acetaminophen 500 mg capsule 1,000 mg PO BID 02/06/20 11/17/23 levothyroxine 137 mcg tablet 137 mcg PO QAM 10/14/22 11/17/23 (Synthroid) albuterol sulfate 2.5 mg/3 mL 2.5 mg inhalation Q6H PRN 12/22/22 11/17/23 (0.083 %) solution for nebulization Shortness Of Breath albuterol sulfate 90 mcg/actuation 1 - 2 puff inhalation Q4H PRN 12/22/22 11/17/23 aerosol inhaler Wheezing nitroglycerin 0.4 mg sublingual 0.4 mg sublingual Q5M PRN Chest 12/22/22 11/17/23 tablet (Nitrostat) Pain liothyronine 5 mcg tablet 5 mcg PO BID 04/01/23 11/17/23 diphenhydramine HCl 25 mg capsule 25 mg PO DAILY 08/16/23 11/17/23 (Allergy (diphenhydramine)) oxybutynin chloride 5 mg 5 mg PO DAILY 10/22/23 11/18/23 tablet,extended release 24 hr Previous Rx's Medication Instructions Recorded MARK BRACE #1 ea 08/01/20 carvedilol 25 mg tablet 25 mg PO BID #180 tabs 03/24/21 Modification to AFO Brace to the #1 ea 02/02/22 left apixaban 5 mg tablet (Eliquis) 5 mg PO BID@0900,2100 #60 tabs 11/12/22 magnesium L-lactate 84 mg 84 mg PO BID 30 days #60 tabs 11/12/22 tablet,extended release (Magtab) amiodarone 200 mg tablet (Pacerone) 200 mg PO DAILY #30 tabs 02/19/23 isosorbide mononitrate 30 mg 60 mg (2 x 30 mg) PO BEDTIME #30 02/19/23 tablet,extended release 24 hr tabs diclofenac sodium 1 % topical gel 4 g topical QID PRN Pain #100 grams 03/31/23 bumetanide 2 mg tablet 2 mg PO DAILY #60 tabs 04/06/23 potassium chloride 10 mEq 20 meq (2 x 10 mEq) PO DAILY #30 04/06/23 tablet,extended release tabs sennosides 8.6 mg-docusate sodium 1 tab PO DAILY #30 tabs 04/06/23 50 mg tablet (Stool Softener-Laxative) atorvastatin 40 mg tablet 40 mg PO BEDTIME #90 tabs 08/10/23 omeprazole 40 mg capsule,delayed 40 mg PO QAM #90 caps 08/26/23 release prednisone 10 mg tablet 10 mg PO DAILY #90 tabs 08/26/23 pregabalin 25 mg capsule 25 mg PO BID #180 caps 08/26/23 hydralazine 50 mg tablet See Rx Instructions .Route 09/27/23 .COMPLEX #90 tabs azithromycin 250 mg tablet 250 mg PO DAILY 4 days #4 tabs 11/20/23 cefdinir 300 mg capsule 300 mg PO BID 7 days #14 caps 11/20/23 Allergies Allergy/AdvReac Type Severity Reaction Status Date / Time metoclopramide [From Reglan] Allergy Unknown Verified 10/22/23 10:40 morphine Allergy ALGY-Hives Verified 10/22/23 10:40 tamsulosin [From Flomax] Allergy ADR/ALGY-Hy Verified 10/22/23 10:40 potension zolpidem [From Ambien] Allergy Unknown Verified 10/22/23 10:40 hydrocodone AdvReac Mild Hypotension Verified 10/22/23 10:40 oxycodone AdvReac Mild Hypotension Verified 10/22/23 10:40 paper tape Allergy tears skin Uncoded 10/22/23 10:40 off Review of Systems Const: Denies: fever(s) or chills Card: Reports: chest pain Resp: Reports: dyspnea GI: Denies: abdominal pain : Denies: dysuria, urinary frequency or urinary urgency Musc: Denies: neck pain or back pain Skin/Breast: Denies: rash PFSH ED PFSH: Medical History Anemia HTN (hypertension) High risk medication use prednisone and leflunomide 12/2022 Atrial fibrillation Ascending aortic aneurysm Patient had a CT of the chest on 07/14/2023. The ascending aorta was found to be 4.0 cm in diameter. Essentially unchanged CHF (congestive heart failure), NYHA class III EF 10/2022 43% on stress test, 50% on echo Peripheral arterial disease Chronic anticoagulation eliquis Unstable angina CAD (coronary artery disease) Seroma, postoperative Spinal stenosis, thoracic Degenerative disc disease, thoracic History of prostate cancer Urgency incontinence Renal cyst Acquired calcaneovarus deformity of both feet Lumbar stenosis with neurogenic claudication Orthostatic hypotension Venous insufficiency of both lower extremities Acute blood loss as cause of postoperative anemia Failed back surgical syndrome DDD (degenerative disc disease), lumbar Chronic back pain History of TIA (transient ischemic attack) Radiation cystitis Carotid artery disease Hx of cataract Closed fracture of right patella COVID-2020 Metatarsus adductus Osteoarthritis, generalized Seronegative rheumatoid arthritis Positive CORBY (antinuclear antibody) EDUARDO was negative in 2013 Gastroparesis GERD (gastroesophageal reflux disease) Cervical postlaminectomy syndrome FUAD (obstructive sleep apnea) Hyperlipidemia Hypothyroid COPD (chronic obstructive pulmonary disease) H/O malignant neoplasm of skin Surgical History Hx of excision of epidermal inclusion cyst Hx of excision of mass 04/12/23 Dr Fitzgerald- Elliptical excision of skin and subcutaneous back mass S/P laminectomy with spinal fusion S/P spinal fusion 02/2021 - T9-S1 Dr Delarosa History of penile implant Status post spinal arthrodesis S/P lumbar fusion Status post revision of total replacement of right knee History of total bilateral knee replacement (TKR) History of cardiac cath ~2012 nonobstructive 10/2022 stress test EF 43 %, small areas prior infarcts RCA and LAD territories History of hip surgery RIGHT 04/11/19 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 History of total right hip arthroplasty History of total left hip arthroplasty History of abdominal aortic aneurysm (AAA) repair History of tonsillectomy and adenoidectomy Hx of appendectomy History of back surgery multiple procedures (>10) H/O neck surgery x 2 Hx of cholecystectomy H/O colonoscopy 2011 H/O esophagogastroduodenoscopy 2011 Family History Mother , Age 81 Bleeding disorder Clotting disorder CAD (coronary artery disease) 60s Cancer Stroke Father , Age 94 CAD (coronary artery disease) 80 Dementia Daughter Chronic kidney disease (CKD) Brother CAD (coronary artery disease) MD Cancer Denies family history of Diabetes Suicide Anesthesia complication Lung disease Social History Smoking and tobacco/nicotine status: never used tobacco/nicotine Alcohol intake: never Substance/Drug Use: never Household members: spouse Marital status: Current occupational status: retired Special danny needs: No Agree to transfusion: Yes Physical Exam Const: GENERAL APPEARANCE: cooperative ORIENTATION/CONSCIOUSNESS: Yes awake, Yes oriented to person, Yes oriented to place and Yes oriented to time HENMT: COMMON NORMALS: normocephalic, atraumatic and hearing grossly normal bilaterally HEAD & SCALP: normocephalic and atraumatic Resp: COMMON NORMALS: normal respiratory effort, No retractions, No use of accessory muscles and clear to auscultation bilaterally AUSCULTATION: clear to auscultation bilaterally Cardio: COMMON NORMALS: regular rate, regular rhythm and No murmurs present (Cardio) RATE: regular rate RHYTHM: regular rhythm GI: COMMON NORMALS: Soft to palpation and No hepatosplenomegaly present AUSCULTATION: Yes normoactive bowel sounds PALPATION: Yes Soft to palpation, No Tenderness to palpation present (GI), No Guarding due to palpation present (GI) and Yes No hepatosplenomegaly present Extremity: COMMON NORMALS: normal to inspection, capillary refill normal, no clubbing, cyanosis or edema, no calf tenderness and no pedal edema Neuro: SENSORIUM/ORIENTATION: Yes oriented to person, Yes oriented to place and Yes oriented to time Skin: COMMON NORMALS: no rashes or lesions noted GENERAL SKIN EXAM: no rashes or lesions noted Course Vital Signs: Vital signs: Vital Signs Temperature 98.1 F 11/20/23 15:42 Pulse Rate 78 11/20/23 15:42 Respiratory Rate 18 11/20/23 15:42 Blood Pressure 160/81 11/20/23 15:42 Pulse Oximetry 94 11/20/23 15:42 Oxygen Delivery Me thod Room Air 11/20/23 11:50 Oxygen Flow Rate 2 11/19/23 15:28 MDM - Chest Pain Medical Decision Making Patient has a left lower lobe pneumonia serial troponins trending negative his symptoms however are concerning. Also somewhat fluid overloaded suspect he has some midline heart failure as well. Discussed with hospitalist orders written. CTA of his chest did not show any pulmonary embolism there is evidence of pneumonia no evidence of increased size of his aortic aneurysm Medical Records I reviewed the patient's medical records. Lab Data I reviewed the patient's lab results. 11/20/23 05:16 11/20/23 05:16 Radiology Impressions Chest X-Ray 11/17/23 13:14 Impression: There is cardiomegaly without failure or consolidation. Chest CTA 11/17/23 15:43 IMPRESSION: 1. Within the limits of less than optimal contrast as well as extensive artifact from metal in the spine, there is no evidence of a pulmonary embolism. 2. Lingular ground-glass infiltrate. Modified Barium Swallow 11/18/23 09:05 IMPRESSION: Limited flash penetration without aspiration of thin liquids. Laboratory Results WBC 10.07 10^3/uL (3.29-11.43) 11/17/23 12:47 RBC 3.93 10^6/uL (3.85-5.65) 11/17/23 12:47 Hgb 12.60 g/dL (11.27-16.99) 11/17/23 12:47 Hct 38.0 % (37-53) 11/17/23 12:47 MCV 96.7 fl (82-101) 11/17/23 12:47 MCH 32.1 pg (27-33) 11/17/23 12:47 MCHC 33.2 g/dL (30-55) 11/17/23 12:47 RDW 16.7 % (12.1-15.1) H 11/17/23 12:47 Plt Count 212 10^3/cmm (157-399) 11/17/23 12:47 MPV 9.6 fL (7.4-10.4) 11/17/23 12:47 Neut % (Auto) 84.8 % 11/17/23 12:47 Lymph % (Auto) 6.7 % 11/17/23 12:47 [place] % (Auto) 7.1 % 11/17/23 12:47 Eos % (Auto) 0.1 % 11/17/23 12:47 Baso % (Auto) 0.2 % 11/17/23 12:47 Neut # (Auto) 8.55 10^3/uL (1.8-7.7) H 11/17/23 12:47 Lymph # (Auto) 0.7 10^3/uL (0.8-4.8) L 11/17/23 12:47 [place] # (Auto) 0.7 10^3/uL (0.2-0.9) 11/17/23 12:47 Eos # (Auto) 0.0 10^3/uL (0.0-0.8) 11/17/23 12:47 Baso # (Auto) 0.0 10^3/uL (0.0-0.1) 11/17/23 12:47 Nucleated RBC % (auto) 0 % 11/17/23 12:47 Nucleated RBCs # 0.0 /100WBC 11/17/23 12:47 Specimen Type Arterial 11/17/23 16:30 Sample Site Radial, right 11/17/23 16:30 ABG pH 7.46 (7.35-7.45) H 11/17/23 16:30 ABG pCO2 43.3 mmHg (35-45) 11/17/23 16:30 ABG pO2 116.0 mmHg (80.0-100.0) H 11/17/23 16:30 ABG PO2/FiO2 Ratio 414 11/17/23 16:30 ABG HCO3 30.7 mmol/L (22-26) H 11/17/23 16:30 ABG O2 Saturation 97.8 11/17/23 16:30 ABG Base Excess 6.1 mmol/L (-2.0-2.0) H 11/17/23 16:30 Shorty Test Pos 11/17/23 16:30 A-a O2 Gradient 3.8 mmHg (5-10) L 11/17/23 16:30 Hematocrit 37.8 % (42-52) L 11/17/23 16:30 Hgb O2 Saturation 97.1 % (95-100) 11/17/23 16:30 Carboxyhemoglobin 0.3 %THgb (0.4-20.1) L 11/17/23 16:30 Methemoglobin 0.4 % (0.4-1.5) 11/17/23 16:30 Total Hemoglobin 12.3 g/dL (14-18) L 11/17/23 16:30 Sodium 140.0 mmol/L (131-143) 11/17/23 16:30 Potassium 3.8 mmol/L (3.5-5.0) 11/17/23 16:30 Glucose 110.0 mg/dL (70-115) 11/17/23 16:30 Ionized Calcium 1.1 mmol/L (1.1-1.4) 11/17/23 16:30 O2 Delivery Device Nc 11/17/23 16:30 O2 Liters/Min 2.0 % 11/17/23 16:30 FiO2 28.0 % 11/17/23 16:30 Street Flusher Driver ID glc 11/17/23 16:30 Sodium 141 mmol/L (136-145) 11/17/23 12:47 Potassium 4.1 mmol/L (3.5-5.1) 11/17/23 12:47 Chloride 100 mmol/L (98-107) 11/17/23 12:47 Carbon Dioxide 28 mmol/L (22-29) 11/17/23 12:47 Anion Gap 17.1 (5-19) 11/17/23 12:47 BUN 24 mg/dL (8-23) H 11/17/23 12:47 Creatinine 1.3 mg/dL (0.7-1.2) H 11/17/23 12:47 GFR Calculation Not Reportable 11/17/23 12:47 Glucose 106 mg/dL (65-115) 11/17/23 12:47 Calculated Osmolality 296 mOsm/kg (285-295) H 11/17/23 12:47 Calcium 9.0 mg/dL (8.5-10.5) 11/17/23 12:47 Total Bilirubin 0.5 mg/dL (0.15-1.2) 11/17/23 12:47 AST 19 U/L (0-40) 11/17/23 12:47 ALT 23 U/L (0-41) 11/17/23 12:47 Alkaline Phosphatase 87 U/L (40-130) 11/17/23 12:47 Troponin T Baseline 36 ng/L (0-15) H 11/17/23 12:47 Troponin T 120 Minute 31.76 ng/L (0-15) H 11/17/23 14:43 Delta Troponin T -4.24 ABS# (0-10) L 11/17/23 14:43 NT-Pro-B Natriuret Pep 149 pg/mL (0-450) 11/17/23 12:47 Total Protein 6.3 g/dL (6.6-8.7) L 11/17/23 12:47 Albumin 4.1 g/dL (3.5-5.2) 11/17/23 12:47 Globulin 2.2 g/dL (1.3-4.6) 11/17/23 12:47 Urine Color Yellow (Yellow) 11/17/23 15:40 Urine Appearance Clear (CLEAR) 11/17/23 15:40 Urine pH 7.5 (5-7) 11/17/23 15:40 Ur Specific Lewis 1.008 (1.005-1.030) 11/17/23 15:40 Urine Protein Negative (Negative) 11/17/23 15:40 Urine Glucose (UA) Negative (Normal) 11/17/23 15:40 Urine Ketones Negative (Negative) 11/17/23 15:40 Urine Blood Negative (Negative) 11/17/23 15:40 Urine Nitrate Negative (Negative) 11/17/23 15:40 Urine Bilirubin Negative (Negative) 11/17/23 15:40 Urine Urobilinogen 1.0 mg/dL (Negative) 11/17/23 15:40 Ur Leukocyte Esterase Negative (Negative) 11/17/23 15:40 Amorphous Sediment Not Reportable 11/17/23 15:40 Coronavirus 229E (PCR) Not detected (NOT DETECT) 11/17/23 13:54 SARS-CoV-2 (PCR) Not detected (NOT DETECT) 11/17/23 13:54 All radiology interpretation(s) finalized by discharge Discharge Plan Discharge Patient Disposition: Admitted As Inpatient Admit Provider: Naz Goode Clinical Impression: Unstable angina pectoris, CAD (coronary artery disease), CHF (congestive heart failure), NYHA class III, Ascending aortic aneurysm, Atrial fibrillation Condition: Stable Discharge Diet: Advance as tolerated, Cardiac and Low Salt Discharge Activity: Resume usual activity and Increase activity as tolerated Coding Level of Care Code ED Medical Numerical Control Operator for Lauren Zimmerman
[2023-11-17 13:31] LABS: Basophils % 0.2 %; Eosinophils % 0.1 %; Lymphocytes # 0.7 10^3/uL (0.8-4.8); Lymphocytes % 6.7 %; Mean Corpuscular HGB Conc 33.2 g/dL (30-55); Mean Corpuscular Hemoglobin 32.1 pg (27-33); Mean Corpuscular Volume 96.7 fl (82-101); Mean Platelet Volume 9.6 fL (7.4-10.4); Monocytes # 0.7 10^3/uL (0.2-0.9); Monocytes % 7.1 %; Neutrophils # 8.55 10^3/uL (1.8-7.7); Neutrophils % 84.8 %; Nucleated Red Blood Cells % 0 %; Platelet Count 212 10^3/cmm (157-399); Red Blood Count 3.93 10^6/uL (3.85-5.65); Red Cell Distribution Width 16.7 % (12.1-15.1); White Blood Count 10.07 10^3/uL (3.29-11.43)
[2023-11-17] MEDS: labetalol 5 mg/mL SDV 20mL 10 MG IVP (13:35)
[2023-11-17 13:42] LABS: Alanine Aminotransferase 23 U/L (0-41); Albumin Level 4.1 g/dL (3.5-5.2); Alkaline Phosphatase 87 U/L (40-130); Anion Gap 17.1 (5-19); Aspartate Amino Transferase 19 U/L (0-40); Blood Urea Nitrogen 24 mg/dL (8-23); Carbon Dioxide 28 mmol/L (22-29); Chloride 100 mmol/L (98-107); Globulin 2.2 g/dL (1.3-4.6); Glucose 106 mg/dL (65-115); Osmolality Calculated 296 mOsm/kg (285-295); Potassium 4.1 mmol/L (3.5-5.1); Sodium 141 mmol/L (136-145); Total Bilirubin 0.5 mg/dL (0.15-1.2); Total Protein 6.3 g/dL (6.6-8.7)
[2023-11-17 13:43] LABS: Troponin(5th) Baseline 36 ng/L (0-15)
[2023-11-17 14:50] LABS: NT Pro B Type Natriuretic Pept 149 pg/mL (0-450)
--- NOTE | 2023-11-17 15:08 | ECG_ITS ---
[facility] Test Date: 2023-11-17 Pat Name: Kojo Marinelli Department: Room: Gender: Male Pharmaceutical Physician: : 1945 Requested By: Checo Wall Order Number: [id number] Tessa MD: Priyanka Rivas M.D. Measurements Intervals [place] Rate: 59 P: -86 ME: 150 QRS: -61 QRSD: 126 T: -9 QT: 472 QTc: 468 Interpretive Statements Possible sinus bradycardia with a first-degree AV block MODERATE VOLTAGE CRITERIA FOR LVH, CONSIDER NORMAL VARIANT [MEETS CRITERIA IN ONE OF: R(aVL), S(V1), R(V5), R(V5/V6)+S(V1)] POSSIBLE ANTERIOR MYOCARDIAL INFARCTION , PROBABLY OLD [30 ms Q WAVE IN V3/V4, OR R < 0.2 mV IN V4] INFERIOR MYOCARDIAL INFARCTION , OF INDETERMINATE AGE [40+ ms Q WAVE AND/OR ST/T ABNORMALITY IN II/aVF] Compared to ECG 11/17/2023 13:05:34 Bradycardia, nonsinus now present Ectopic atrial rhythm no longer present Myocardial infarct finding still present Electronically Signed On 11-17-2023 22:38:36 CDT by Priyanka Rivas M.D. [id number]
[2023-11-17 15:15] LABS: Troponin 5 2HR 31.76 ng/L (0-15)
[2023-11-17 15:16] LABS: Troponin 5 2HR Delta -4.24 ABS# (0-10)
--- NOTE | 2023-11-17 15:43 | CTR_ITS ---
PROCEDURE INFORMATION: Exam: CTA Chest With Contrast Exam date and time: 11/17/2023 3:52 PM Age: 77 years old Clinical indication: Shortness of breath TECHNIQUE: Imaging protocol: Computed tomographic angiography of the chest with contrast. Exam focused on the arteries. 3D rendering (Not supervised by radiologist): MIP and/or 3D reconstructed images were created by the technologist. Radiation optimization: All CT scans at this facility use at least one of these dose optimization techniques: automated exposure control; mA and/or kV adjustment per patient size (includes targeted exams where dose is matched to clinical indication); or iterative reconstruction. Contrast material: OMNI 350; Contrast volume: 73 ml; Contrast route: INTRAVENOUS (IV); COMPARISON: CT angio chest [id number] 10/01/2023 5:07 PM RADIATION DOSE METRICS: Total DLP (mGy-cm): 537 FINDINGS: Pulmonary arteries: Poor arterial contrast with Hounsfield units in the main pulmonary artery of 220. Within the limits of evaluation, given the streak artifact there is no central pulmonary emboli. More peripheral vessels however, are less optimally delineated but overall no pulmonary embolism is seen. Aorta: Ectatic ascending aorta at 35 mm. Lungs: Mild ground-glass appearance noted involving the lingula. This appears new since the previous examination possibly early pneumonitis and pneumonia. 2 mm lingular nodule, new, image 8/334 likely infectious or inflammatory given its new appearance. Pleural spaces: Unremarkable. No pneumothorax. No pleural effusion. Heart: Unremarkable. No cardiomegaly. No pericardial effusion. Lymph nodes: Unremarkable. No enlarged lymph nodes. Gallbladder and biliary ducts: Cholecystectomy clips. Kidneys: Low-density stable left renal lesion possibly a cyst. 55 x 47 mm. Bones/joints: Spinal fixation. Stable extensive postoperative changes in the spine. Soft tissues: Unremarkable. CT/CT angio chest PE protcl [id number] IMPRESSION: 1. Within the limits of less than optimal contrast as well as extensive artifact from metal in the spine, there is no evidence of a pulmonary embolism. 2. Lingular ground-glass infiltrate.
[2023-11-17] MEDS: iohexol 350 mg/mL 500 mL Btl (per mL) IV (15:58)
[2023-11-17 16:01] LABS: Charge for UA Resulting for Rev
[2023-11-17 16:04] LABS: Bilirubin Urine Negative (Negative); Blood Urine Negative (Negative); Glucose Urine UA Negative (Normal); Ketones Urine Negative (Negative); Leukocyte Esterase Urine Negative (Negative); Nitrate Urine Negative (Negative); Protein Urine Negative (Negative); Specific Gravity, Urine 1.008 (1.005-1.030); Urine Appearance Clear (CLEAR); Urine Color Yellow (Yellow); pH Urine 7.5 (5-7)
[2023-11-17 16:04] LABS: Adenovirus Not Detected (NOT DETECT); Chlamydia Pneumoniae Not Detected (NOT DETECT); Coronavirus 229E,HKU1,NL63,OC4 Not Detected (NOT DETECT); Human Metapneumovirus Not Detected (NOT DETECT); Human Rhinovirus/Enterovirus Not Detected (NOT DETECT); Influenza A Not Detected (NOT DETECT); Influenza A H1 Not Detected (NOT DETECT); Influenza A H1-2009 Not Detected (NOT DETECT); Influenza A H3 Not Detected (NOT DETECT); Influenza B Not Detected (NOT DETECT); Mycoplasma Pneumoniae Not Detected (NOT DETECT); Parainfluenza Virus Type 1 Not Detected (NOT DETECT); Parainfluenza Virus Type 2 Not Detected (NOT DETECT); Parainfluenza Virus Type 3 Not Detected (NOT DETECT); Parainfluenza Virus Type 4 Not Detected (NOT DETECT); Respiratory Syncytial Virus A Not Detected (NOT DETECT); Respiratory Syncytial Virus B Not Detected (NOT DETECT); SARS-COV-2 Not Detected (NOT DETECT)
[2023-11-17 16:42] LABS: ABG PCO2 43.3 mmHg (35-45); ABG PH Result 7.46 (7.35-7.45); Alveolar-Arterial Oxygen Gradi 3.8 mmHg (5-10); Arterial Blood Gas Hematocrit 37.8 % (42-52); Base Excess ABG 6.1 mmol/L (-2.0-2.0); Blood Gas Allen Test Pos; Blood Gas Operator Identificat glc; Blood Gas Sample Site Radial, right; Blood Gas Sample Type Arterial; Carboxyhemoglobin 0.3 %THgb (0.4-20.1); HCO3 ABG 30.7 mmol/L (22-26); HGB O2 Sat 97.1 % (95-100); Ionized Calcium Level - ABG 1.1 mmol/L (1.1-1.4); Methemoglobin 0.4 % (0.4-1.5); Oxygen Device NC; Oxygen Saturation ABG 97.8; PO2 FiO2 Ratio Arterial Blood 414; Potassium Level - ABG 3.8 mmol/L (3.5-5.0); Total Hemoglobin 12.3 g/dL (14-18)
--- NOTE | 2023-11-17 18:13 | P.HP_ITS ---
Providers/Chief Complaint 2 Primary Care Provider: Marsha Turner MD Chief Complaint: Chest Pain History of Present Illness Kojo Marinelli is a 77 year old male with history of diastolic CHF, restrictive lung disease, presenting today with chief complaint of worsening shortness of breath and chest pain. Patient is stating that he was worsening shortness of breath on minimal exertion, he has started using BiPAP at nighttime, he is describing his chest pain as pressure-like sensation which was radiating towards his left arm. It would last up to 15 to 20 minutes, it was associated with shortness of breath. Patient is stating that he is down to his dry weight 265 pounds. No recent fever, diarrhea, sputum production. In the ER he had received steroids, albuterol I will give him Lasix IV Place Velazquez catheter Monitor his troponin with serial EKGs He is not experiencing any active chest pain Oxygen being weaned off from 5 L to 3 L Review of Systems 2 Const: Reports: chills Eyes: Denies: change in vision ENMT: Denies: throat pain Card: Reports: chest pain and swelling of feet/ankles Resp: Reports: dyspnea GI: Denies: abdominal pain Medications/Allergies Home Medications Medication Instructions Recorded Confirmed Last Taken Type acetaminophen 500 mg capsule 1,000 mg PO BID 02/06/20 10/22/23 07/14/23 History MARK BRACE #1 ea 08/01/20 10/22/23 Unknown Rx carvedilol 25 mg tablet 25 mg PO BID #180 tabs 03/24/21 10/22/23 07/14/23 Rx Modification to AFO Brace to the #1 ea 02/02/22 10/22/23 Unknown Rx left levothyroxine 137 mcg tablet 137 mcg PO QAM 10/14/22 10/22/23 07/14/23 History (Synthroid) apixaban 5 mg tablet (Eliquis) 5 mg PO BID@0900,2100 #60 tabs 11/12/22 10/22/23 07/14/23 Rx magnesium L-lactate 84 mg 84 mg PO BID 30 days #60 tabs 11/12/22 10/22/23 07/14/23 Rx tablet,extended release (Magtab) albuterol sulfate 2.5 mg/3 mL 2.5 mg inhalation Q6H PRN 12/22/22 10/22/23 Unknown History (0.083 %) solution for nebulization Shortness Of Breath albuterol sulfate 90 mcg/actuation 1 - 2 puff inhalation Q4H PRN 12/22/22 10/22/23 Unknown History aerosol inhaler Wheezing nitroglycerin 0.4 mg sublingual 0.4 mg sublingual Q5M PRN Chest 12/22/22 10/22/23 02/17/23 History tablet (Nitrostat) Pain amiodarone 200 mg tablet (Pacerone) 200 mg PO DAILY #30 tabs 02/19/23 10/22/23 07/14/23 Rx isosorbide mononitrate 30 mg 60 mg (2 x 30 mg) PO BEDTIME #30 02/19/23 10/22/23 07/14/23 Rx tablet,extended release 24 hr tabs diclofenac sodium 1 % topical gel 4 g topical QID PRN Pain #100 grams 03/31/23 10/22/23 04/11/23 Rx liothyronine 5 mcg tablet 5 mcg PO BID 04/01/23 10/22/23 07/14/23 History bumetanide 2 mg tablet 2 mg PO DAILY #60 tabs 04/06/23 10/22/23 07/14/23 Rx potassium chloride 10 mEq 20 meq (2 x 10 mEq) PO DAILY #30 04/06/23 10/22/23 07/14/23 Rx tablet,extended release tabs sennosides 8.6 mg-docusate sodium 1 tab PO DAILY #30 tabs 04/06/23 10/22/23 07/14/23 Rx 50 mg tablet (Stool Softener-Laxative) atorvastatin 40 mg tablet 40 mg PO BEDTIME #90 tabs 08/10/23 10/22/23 Unknown Rx diphenhydramine HCl 25 mg capsule 25 mg PO DAILY 08/16/23 10/22/23 Unknown History (Allergy (diphenhydramine)) abatacept (with maltose) IV 08/26/23 10/22/23 Unknown History omeprazole 40 mg capsule,delayed 40 mg PO QAM #90 caps 08/26/23 10/22/23 Unknown Rx release prednisone 10 mg tablet 10 mg PO DAILY #90 tabs 08/26/23 10/22/23 Unknown Rx pregabalin 25 mg capsule 25 mg PO BID #180 caps 08/26/23 10/22/23 Unknown Rx hydralazine 50 mg tablet See Rx Instructions .Route 09/27/23 10/22/23 Unknown Rx .COMPLEX #90 tabs mupirocin 2 % topical ointment topical 10/22/23 10/22/23 Unknown History oxybutynin chloride 5 mg mg PO 10/22/23 10/22/23 Unknown History tablet,extended release 24 hr Allergies Allergy/AdvReac Type Severity Reaction Status Date / Time metoclopramide [From Reglan] Allergy Unknown Verified 10/22/23 10:40 morphine Allergy ALGY-Hives Verified 10/22/23 10:40 tamsulosin [From Flomax] Allergy ADR/ALGY-Hy Verified 10/22/23 10:40 potension zolpidem [From Ambien] Allergy Unknown Verified 10/22/23 10:40 hydrocodone AdvReac Mild Hypotension Verified 10/22/23 10:40 oxycodone AdvReac Mild Hypotension Verified 10/22/23 10:40 paper tape Allergy tears skin Uncoded 10/22/23 10:40 off PFSH Acute 2 PFSH: Medical History Anemia HTN (hypertension) High risk medication use prednisone and leflunomide 12/2022 Atrial fibrillation Ascending aortic aneurysm Patient had a CT of the chest on 07/14/2023. The ascending aorta was found to be 4.0 cm in diameter. Essentially unchanged CHF (congestive heart failure), NYHA class III EF 10/2022 43% on stress test, 50% on echo Peripheral arterial disease Chronic anticoagulation eliquis Unstable angina CAD (coronary artery disease) Seroma, postoperative Spinal stenosis, thoracic Degenerative disc disease, thoracic History of prostate cancer Urgency incontinence Renal cyst Acquired calcaneovarus deformity of both feet Lumbar stenosis with neurogenic claudication Orthostatic hypotension Venous insufficiency of both lower extremities Acute blood loss as cause of postoperative anemia Failed back surgical syndrome DDD (degenerative disc disease), lumbar Chronic back pain History of TIA (transient ischemic attack) Radiation cystitis Carotid artery disease Hx of cataract Closed fracture of right patella COVID-19 2020 Metatarsus adductus Osteoarthritis, generalized Seronegative rheumatoid arthritis Positive CORBY (antinuclear antibody) EDUARDO was negative in 2013 Gastroparesis GERD (gastroesophageal reflux disease) Cervical postlaminectomy syndrome FUAD (obstructive sleep apnea) Hyperlipidemia Hypothyroid COPD (chronic obstructive pulmonary disease) H/O malignant neoplasm of skin Surgical History Hx of excision of epidermal inclusion cyst Hx of excision of mass 04/12/23 Dr Fitzgerald- Elliptical excision of skin and subcutaneous back mass S/P laminectomy with spinal fusion S/P spinal fusion 02/2021 - T9-S1 Dr Delarosa History of penile implant Status post spinal arthrodesis S/P lumbar fusion Status post revision of total replacement of right knee History of total bilateral knee replacement (TKR) History of cardiac cath ~2012 nonobstructive 10/2022 stress test EF 43 %, small areas prior infarcts RCA and LAD territories History of hip surgery RIGHT 04/11/19 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 History of total right hip arthroplasty History of total left hip arthroplasty History of abdominal aortic aneurysm (AAA) repair History of tonsillectomy and adenoidectomy Hx of appendectomy History of back surgery multiple procedures (>10) H/O neck surgery x 2 Hx of cholecystectomy H/O colonoscopy 2011 H/O esophagogastroduodenoscopy 2011 Family History Mother , Age 81 Bleeding disorder Clotting disorder CAD (coronary artery disease) 60s Cancer Stroke Father , Age 94 CAD (coronary artery disease) 80 Dementia Daughter Chronic kidney disease (CKD) Brother CAD (coronary artery disease) [place] Cancer Denies family history of Diabetes Suicide Anesthesia complication Lung disease Social History Smoking and tobacco/nicotine status: never used tobacco/nicotine Alcohol intake: never Substance/Drug Use: never Household members: spouse Marital status: Current occupational status: retired Special danny needs: No Agree to transfusion: Yes Vitals/I&O/Wt Last Vital Signs Temp 98.6 F 11/17/23 13:04 Pulse 60 11/17/23 16:30 Resp 12 11/17/23 16:30 BP 154/98 11/17/23 16:30 Pulse Ox 94 11/17/23 16:30 O2 Del Method Nasal Cannula 11/17/23 16:30 O2 Flow Rate 2 11/17/23 16:30 Weight last 48 hrs Weight 120.656 kg Physical Exam 2 Narrative: Signs of fluid overload Anasarca 3+ edema of legs Hemodynamic stable Currently on 5 L saturating well Abdomen soft Heart failure Nonfocal neuroexam Family is at the bedside S1, S2 variable Data 11/17/23 12:47 11/17/23 12:47 A&P Assessment and plan (1) High risk medication use: (2) HTN (hypertension): Qualifiers: Hypertension type: primary hypertension Qualified Code(s): I10 - Essential (primary) hypertension (3) CHF (congestive heart failure), NYHA class III: Qualifiers: Congestive heart failure type: diastolic Congestive heart failure chronicity: chronic Qualified Code(s): I50.32 - Chronic diastolic (congestive) heart failure (4) Atrial fibrillation: Qualifiers: Atrial fibrillation type: paroxysmal Qualified Code(s): I48.0 - Paroxysmal atrial fibrillation (5) Ascending aortic aneurysm: Qualifiers: Presence of rupture: without rupture Qualified Code(s): I71.21 - Aneurysm of the ascending aorta, without rupture (6) ADAMS (dyspnea on exertion): (7) Other iron deficiency anemias: (8) Left lower lobe pneumonia: Plan Left lower lobe pneumonia Start levofloxacin Patient not endorsing fever, sputum production COVID-negative Groundglass opacity left lower lobe Diastolic CHF exacerbation Start IV Bumex Unstable angina Monitor serial troponin with EKGs No active chest pain at the time of evaluation No signs of PE Restrictive lung disease patient uses BiPAP at home Full code Cardiac A-fib without RVR Continue anticoagulating agent Attestations 2 Medical Necessity Statement*: More than 2 midnights anticipated Diagnoses High risk medication use Z79.899 Primary hypertension I10 Hypertension type: primary hypertension Chronic diastolic congestive heart failure, NYHA class 3 I50.32 Congestive heart failure type: diastolic Congestive heart failure chronicity: chronic Paroxysmal atrial fibrillation I48.0 Atrial fibrillation type: paroxysmal Aneurysm of ascending aorta without rupture I71.21 Presence of rupture: without rupture ADAMS (dyspnea on exertion) R06.09 Other iron deficiency anemias D50.8 Left lower lobe pneumonia J18.9
[2023-11-17] MEDS: methylPREDNISolone sod succ 125 mg/2 mL INJ IVP (18:14)
[2023-11-17] MEDS: ipratropium-albuterol 3 mL Neb INHALATION (18:17)
[2023-11-17] MEDS: levofloxacin-dextrose 5 % 750 MG/150 ML PREMIX 100 MG IV (18:17)
--- NOTE | 2023-11-17 19:08 | ECG_ITS ---
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 Measurements Intervals [place] Rate: 59 P: -58 MN: 62 QRS: -57 QRSD: 130 T: -13 QT: 464 QTc: 461 Interpretive Statements SINUS BRADYCARDIA LEFT VENTRICULAR HYPERTROPHY AND ST-T CHANGE [VOLTAGE CRITERIA PLUS ST/T ABNORMALITY] ANTERIOR MYOCARDIAL INFARCTION , PROBABLY OLD [40+ ms Q WAVE AND/OR ST/T ABNORMALITY IN V3/V4] INFERIOR MYOCARDIAL INFARCTION , OF INDETERMINATE AGE [40+ ms Q WAVE AND/OR ST/T ABNORMALITY IN II/aVF] Compared to ECG 11/17/2023 15:08:25 Short MN interval now present ST (T wave) deviation now present Myocardial infarct finding still present Electronically Signed On 11-18-2023 14:57:51 CDT by Dario Nuñez M.D. [id number]
[2023-11-17] MEDS: bumetanide 0.25 mg/mL SDV 4 mL 1 MG IVP (19:13)
[2023-11-17 19:36] LABS: Troponin 5 6HR 27.49 ng/L (0-15)
[2023-11-17 19:39] LABS: Troponin 5 6HR Delta -8.51 ng/L (0-12)
[2023-11-17] MEDS: isosorbide mononitrate ER 30 mg Tablet 60 MG PO (20:49)
[2023-11-17] MEDS: apixaban 5 mg Tablet PO (20:49)
[2023-11-18] VITALS (10 sets, daily range): BP systolic 135–174; BP diastolic 61–75; PULSE 60–74; RESP 15–19; TEMP 36.6–37.2; O2SAT 95–96
[2023-11-18 05:22] LABS: Hematocrit 37.3 % (37-53); Lymphocytes # 0.4 10^3/uL (0.8-4.8); Mean Corpuscular HGB Conc 32.4 g/dL (30-55); Mean Corpuscular Hemoglobin 31.2 pg (27-33); Mean Corpuscular Volume 96.1 fl (82-101); Mean Platelet Volume 9.5 fL (7.4-10.4); Monocytes # 0.1 10^3/uL (0.2-0.9); Monocytes % 1.2 %; Neutrophils # 6.73 10^3/uL (1.8-7.7); Neutrophils % 92.6 %; Nucleated Red Blood Cells % 0 %; Platelet Count 201 10^3/cmm (157-399); Red Blood Count 3.88 10^6/uL (3.85-5.65); Red Cell Distribution Width 16.1 % (12.1-15.1); White Blood Count 7.27 10^3/uL (3.29-11.43)
[2023-11-18 05:49] LABS: Blood Urea Nitrogen 23 mg/dL (8-23); Calcium 8.5 mg/dL (8.5-10.5); Carbon Dioxide 27 mmol/L (22-29); Chloride 98 mmol/L (98-107); Creatinine Clr Calc Pharmacy 66.2282; Glucose 145 mg/dL (65-115); Magnesium 2.1 mg/dL (1.7-2.3); Osmolality Calculated 292 mOsm/kg (285-295); Phosphorus 4.3 mg/dL (2.5-4.5); Sodium 138 mmol/L (136-145)
[2023-11-18] MEDS: levothyroxine 137 mcg Tablet PO (05:54)
[2023-11-18] MEDS: bumetanide 0.25 mg/mL SDV 10 mL 2 MG IVP ×2 (08:34→20:08)
[2023-11-18] MEDS: liothyronine 5 mcg Tablet PO ×2 (08:34→17:43)
[2023-11-18] MEDS: apixaban 5 mg Tablet PO ×2 (08:34→20:08)
[2023-11-18] MEDS: sennosides-docusate Tablet 1 TAB PO (08:34)
[2023-11-18] MEDS: amiodarone 200 mg Tablet PO (08:34)
--- NOTE | 2023-11-18 09:05 | P.PN_ITS ---
Subjective 2 Subjective: Patient is endorsing feeling slightly better 1500 mL urine output with Bumex IV Patient is trying to bring his own BiPAP today Patient is stating that he was scheduled for modified barium swallow for his dysphagia on Wednesday, I will like to get it done while he is here to know more about his food consistency No nausea or vomiting Hemodynamically stable Hypertensive Vitals/I&O/Wt Last Vital Signs Temp 98.8 F 11/18/23 07:50 Pulse 73 11/18/23 08:46 Resp 18 11/18/23 08:46 BP 174/74 11/18/23 07:50 Pulse Ox 96 11/18/23 08:46 O2 Del Method Nasal Cannula 11/18/23 08:46 O2 Flow Rate 2.5 11/18/23 08:46 11/17/23 11/18/23 11/18/23 22:59 06:59 14:59 Intake Total 150 / 150 118 / 118 Output Total 850 / 850 800 / 1650 Balance -700 / -700 -800 / -1500 118 / 118 Weight last 48 hrs Weight 121.563 kg Weight 121.563 kg Weight 120.656 kg Physical Exam 2 Narrative: Anasarca 3+ edema of legs Velazquez catheter in place Currently on 3 L GCS 15 Nonfocal neuroexam S1, S2 A-fib without RVR Hypertensive Pleasant and cooperative Multiple scabs around his forehead and scalp seems to be healing with granulation tissue Urinary Catheter Management: Velazquez: Cath Placed During This Visit: yes Reason for Continuing Indwelling Catheter: Other Urinary Catheter Date of Insertion: 11/17/23 Urinary Catheter Time of Insertion: 22:22 Data 11/18/23 04:45 11/18/23 04:45 Micro: Microbiology 11/17/23 17:59 Blood Culture - Preliminary Blood SPECIMEN COLLECTED 11/17/23 17:53 Blood Culture - Preliminary Blood SPECIMEN COLLECTED A&P Assessment and plan (1) High risk medication use: (2) HTN (hypertension): Qualifiers: Hypertension type: primary hypertension Qualified Code(s): I10 - Essential (primary) hypertension (3) CHF (congestive heart failure), NYHA class III: Qualifiers: Congestive heart failure type: diastolic Congestive heart failure chronicity: chronic Qualified Code(s): I50.32 - Chronic diastolic (congestive) heart failure (4) Atrial fibrillation: Qualifiers: Atrial fibrillation type: paroxysmal Qualified Code(s): I48.0 - Paroxysmal atrial fibrillation (5) Ascending aortic aneurysm: Qualifiers: Presence of rupture: without rupture Qualified Code(s): I71.21 - Aneurysm of the ascending aorta, without rupture (6) ADAMS (dyspnea on exertion): (7) Other iron deficiency anemias: (8) Left lower lobe pneumonia: Plan Left lower lobe pneumonia Continue antibiotics Nonproductive cough COVID-negative Diastolic CHF exacerbation Continue IV Bumex Adequate urine output Patient was taking p.o. Bumex at home He will need counseling on when to increase the dose of Bumex at the time of discharge I would avoid getting another echo he recently had echo done which showed diastolic CHF, I do not think patient will be a good candidate for right or left heart cath for pulmonary hypertension evaluation Orthopnea PND improving gradually Unstable angina Nonsignificant elevation of troponin EKG unremarkable No active chest pain Patient sometimes gets chest pain on exertion Restrictive lung disease patient uses BiPAP at home Full code Cardiac diet, will request modified barium swallow for his dysphagia while he is in the hospital A-fib without RVR Continue anticoagulating agent Hypertension: Optimize antihypertensive regimen currently he is on Imdur, Bumex, at home he also takes hydralazine which I will add today Disposition: Home likely on Wednesday Attestations 2 Medical Necessity Statement*: Discharge likely tomorrow if patient keeps feeling better Diagnoses High risk medication use Z79.899 Primary hypertension I10 Hypertension type: primary hypertension Chronic diastolic congestive heart failure, NYHA class 3 I50.32 Congestive heart failure type: diastolic Congestive heart failure chronicity: chronic Paroxysmal atrial fibrillation I48.0 Atrial fibrillation type: paroxysmal Aneurysm of ascending aorta without rupture I71.21 Presence of rupture: without rupture ADAMS (dyspnea on exertion) R06.09 Other iron deficiency anemias D50.8 Left lower lobe pneumonia J18.9
--- NOTE | 2023-11-18 09:05 | FL_ITS ---
WS: [id number] EXAMINATION: FL barium swallow modifd [id number] ORDER DATE: 11/18/2023 11:37 AM REASON FOR EXAM: Oropharyngeal dysphagia COMPARISON: None available. FLUOROSCOPY TIME: 1min [id number] # OF SPOT FILMS: 1 FINDINGS: There is good oral motor control Free spillover was identified. There was flash penetration of thin liquids. There is no aspiration. FL/FL barium swallow modifd [id number] IMPRESSION: Limited flash penetration without aspiration of thin liquids.
--- NOTE | 2023-11-18 09:56 | PC.CHAP ---
Pastoral Care Encounter/Spiritual Assessment Type of Contact [] Declined salesperson handbags visit [] Patient/Family/Request visit [] Outpatient visit [] Follow-up visit [] Physician referral [] Code/Alert [x] Routine visit [] Staff referral [] Actively dying [] Patient sleeping [] Family support [] [] Out of room [] Palliative care [] [] Receiving care in room [] Pre-surgical visit [] Trauma [] Long length of stay [] ICU visit [] Other: Relational/Emotional Strength [x] Patient feels connected with others/family/visitors/staff [] Distress [] Loneliness/isolation [] Abandonment Spirituality of Patient [x] Person of Nini [x] Attends Samaritan of their Nini [x] Believes in Prayer [x] Reads Bible or Adventist materials [] There are Spiritual issues to be addressed Certified Health Education Specialist Interventions [x] Prayer [x] Active listening [] Non-anxious presence [x] Spiritual/emotional support [] Crisis/trauma care [] Spiritual counseling [] Bereavement support [] Provided bereavement packet [] Provided Bible/devotional materials [] Provided toy/stuffed animal, coloring book to patient or family member [] Provided Communion [] Anointing/[place] [] Salvation [x] Completed spiritual assessment [] Other: Impact on Illness or Injury [] Angry [] Fearful [] Anxious [] Often cries [] Exhaustion [] Unable to work [] Unable to attend jew [] Unable to walk/stand [] Unable to read [] Unable to drive [] Unable to eat/drink [] Unable to sleep [] Unable to be with family [] Patient intubated [] Other: Summary Time spent with patient 5 min
[2023-11-18] MEDS: potassium chloride ER 20 mEq Tablet 40 MEQ PO (10:29)
[2023-11-18] MEDS: hyDRALAzine 25 mg Tablet PO ×3 (10:29→20:08)
[2023-11-18] MEDS: acetaminophen 500 mg Tablet PO (10:32)
[2023-11-18] MEDS: isosorbide mononitrate ER 30 mg Tablet 60 MG PO (20:08)
[2023-11-18] MEDS: hyDROXYzine 25 mg Capsule PO (22:57)
[2023-11-19] VITALS (11 sets, daily range): BP systolic 116–187; BP diastolic 73–93; PULSE 61–82; RESP 16–23; TEMP 36.6–36.7; O2SAT 92–98
[2023-11-19 05:18] LABS: Basophils % 0.2 %; Eosinophils % 0.1 %; Hematocrit 37.7 % (37-53); Lymphocytes # 0.7 10^3/uL (0.8-4.8); Lymphocytes % 7.5 %; Mean Corpuscular HGB Conc 32.4 g/dL (30-55); Mean Corpuscular Hemoglobin 31.3 pg (27-33); Mean Corpuscular Volume 96.7 fl (82-101); Mean Platelet Volume 9.6 fL (7.4-10.4); Monocytes % 10.4 %; Neutrophils % 80.5 %; Nucleated Red Blood Cells % 0 %; Platelet Count 211 10^3/cmm (157-399); Red Cell Distribution Width 16.4 % (12.1-15.1); White Blood Count 9.44 10^3/uL (3.29-11.43)
[2023-11-19 05:48] LABS: Anion Gap 17.6 (5-19); Blood Urea Nitrogen 27 mg/dL (8-23); Calcium 8.5 mg/dL (8.5-10.5); Carbon Dioxide 26 mmol/L (22-29); Chloride 99 mmol/L (98-107); Creatinine Clr Calc Pharmacy 66.5564; Glucose 104 mg/dL (65-115); Osmolality Calculated 293 mOsm/kg (285-295); Potassium 3.6 mmol/L (3.5-5.1); Sodium 139 mmol/L (136-145)
[2023-11-19] MEDS: levothyroxine 137 mcg Tablet PO (06:44)
[2023-11-19] MEDS: sennosides-docusate Tablet 1 TAB PO (08:21)
[2023-11-19] MEDS: apixaban 5 mg Tablet PO ×2 (08:21→20:36)
[2023-11-19] MEDS: potassium chloride ER 20 mEq Tablet 40 MEQ PO (08:21)
[2023-11-19] MEDS: amiodarone 200 mg Tablet PO (08:21)
[2023-11-19] MEDS: bumetanide 0.25 mg/mL SDV 10 mL 2 MG IVP ×2 (08:22→20:36)
[2023-11-19] MEDS: hyDRALAzine 25 mg Tablet PO ×3 (08:22→20:36)
[2023-11-19] MEDS: liothyronine 5 mcg Tablet PO ×2 (08:28→18:49)
--- NOTE | 2023-11-19 09:38 | PC.CHAP ---
Pastoral Care Encounter/Spiritual Assessment Type of Contact [] Declined floor sander visit [] Patient/Family/Request visit [] Outpatient visit [] Follow-up visit [] Physician referral [] Code/Alert [X] Routine visit [] Staff referral [] Actively dying [] Patient sleeping [] Family support [] [] Out of room [] Palliative care [] [] Receiving care in room [] Pre-surgical visit [] Trauma [] Long length of stay [] ICU visit [] Other: Relational/Emotional Strength [x] Patient feels connected with others/family/visitors/staff [] Distress [] Loneliness/isolation [] Abandonment Spirituality of Patient [x] Person of Nini [x] Attends Rastafari of their Nini [x] Believes in Prayer [x] Reads Bible or Voodoo materials [] There are Spiritual issues to be addressed Polyethylene Combiner Interventions [X] Prayer [] Active listening [] Non-anxious presence [] Spiritual/emotional support [] Crisis/trauma care [] Spiritual counseling [] Bereavement support [] Provided bereavement packet [] Provided Bible/devotional materials [] Provided toy/stuffed animal, coloring book to patient or family member [] Provided Communion [] Anointing/[place] [] Salvation [] Completed spiritual assessment [] Other: Impact on Illness or Injury [] Angry [] Fearful [] Anxious [] Often cries [] Exhaustion [] Unable to work [] Unable to attend buddhism [] Unable to walk/stand [] Unable to read [] Unable to drive [] Unable to eat/drink [] Unable to sleep [] Unable to be with family [] Patient intubated [] Other: Summary Prior Polyethylene Combiner Time spent with patient 20 Min
--- NOTE | 2023-11-19 09:59 | PC.SOCIAL ---
IMM Update pg 2 of IMM Updated and reviewed w/ patient. Copy provided and copy dated, initialed and placed in chart.
--- NOTE | 2023-11-19 12:28 | P.PN_ITS ---
Subjective 2 Subjective: still short of breath however reports he is feeling slightly better home o2 eval done, pt does not qualify for O2 he is short of breath however when he tries to exert himself Vitals/I&O/Wt Last Vital Signs Temp 97.9 F 11/19/23 11:22 Pulse 77 11/19/23 11:22 Resp 16 11/19/23 11:22 BP 116/73 11/19/23 11:22 Pulse Ox 94 11/19/23 12:03 O2 Del Method Room Air 11/19/23 11:22 O2 Flow Rate 2 11/19/23 10:30 11/18/23 11/19/23 11/19/23 22:59 06:59 14:59 Intake Total 238 / 596 238 / 238 Output Total 1100 / 1100 600 / 1700 Balance -862 / -504 -600 / -1104 238 / 238 Weight last 48 hrs Weight 122.725 kg Weight 121.563 kg Weight 121.563 kg Weight 120.656 kg Physical Exam 2 Narrative: Anasarca 3+ edema of legs Velazquez catheter in place Currently on 2 L at rest GCS 15 Nonfocal neuroexam S1, S2 A-fib without RVR Hypertensive Pleasant and cooperative Multiple scabs around his forehead and scalp seems to be healing with granulation tissue Urinary Catheter Management: Velazquez: Cath Placed During This Visit: yes Reason for Continuing Indwelling Catheter: Other Urinary Catheter Date of Insertion: 11/17/23 Urinary Catheter Time of Insertion: 22:22 Data 11/19/23 04:32 11/19/23 04:32 Micro: Microbiology 11/17/23 17:59 Blood Culture - Preliminary Blood NEGATIVE TO DATE 11/17/23 17:53 Blood Culture - Preliminary Blood NEGATIVE TO DATE A&P Assessment and plan (1) High risk medication use: (2) HTN (hypertension): Qualifiers: Hypertension type: primary hypertension Qualified Code(s): I10 - Essential (primary) hypertension (3) CHF (congestive heart failure), NYHA class III: Qualifiers: Congestive heart failure type: diastolic Congestive heart failure chronicity: chronic Qualified Code(s): I50.32 - Chronic diastolic (congestive) heart failure (4) Atrial fibrillation: Qualifiers: Atrial fibrillation type: paroxysmal Qualified Code(s): I48.0 - Paroxysmal atrial fibrillation (5) Ascending aortic aneurysm: Qualifiers: Presence of rupture: without rupture Qualified Code(s): I71.21 - Aneurysm of the ascending aorta, without rupture (6) ADAMS (dyspnea on exertion): (7) Other iron deficiency anemias: (8) Left lower lobe pneumonia: Plan Left lower lobe pneumonia Continue antibiotics Nonproductive cough COVID-negative Diastolic CHF exacerbation Continue IV Bumex Adequate urine output Patient was taking p.o. Bumex at home He will need counseling on when to increase the dose of Bumex at the time of discharge I would avoid getting another echo he recently had echo done which showed diastolic CHF, I do not think patient will be a good candidate for right or left heart cath for pulmonary hypertension evaluation Orthopnea PND improving gradually Unstable angina Nonsignificant elevation of troponin EKG unremarkable No active chest pain Patient sometimes gets chest pain on exertion Restrictive lung disease patient uses BiPAP at home Full code Cardiac diet, will request modified barium swallow for his dysphagia while he is in the hospital A-fib without RVR Continue anticoagulating agent Hypertension: Optimize antihypertensive regimen currently he is on Imdur, Bumex, at home he also takes hydralazine which I will add today 11/19/2023 continue current mgmt with diureses and antibiotics pt quite dyspneic on exertion, deneis chest pain levaquin daily re-assess pt in am and plan for dc denies chest pain he is quite deconditioned, will need PT did not qualify for O2 Attestations 2 Medical Necessity Statement*: continue mgmt as per above Diagnoses High risk medication use Z79.899 Primary hypertension I10 Hypertension type: primary hypertension Chronic diastolic congestive heart failure, NYHA class 3 I50.32 Congestive heart failure type: diastolic Congestive heart failure chronicity: chronic Paroxysmal atrial fibrillation I48.0 Atrial fibrillation type: paroxysmal Aneurysm of ascending aorta without rupture I71.21 Presence of rupture: without rupture ADAMS (dyspnea on exertion) R06.09 Other iron deficiency anemias D50.8 Left lower lobe pneumonia J18.9
[2023-11-19] MEDS: cefTRIAXone 1,000 mg SDV 1000 MG IVP (14:14)
[2023-11-19] MEDS: azithromycin 500 MG in sodium chloride 0.9% 250 ML 250 MG IV (14:15)
[2023-11-19] MEDS: isosorbide mononitrate ER 30 mg Tablet 60 MG PO (20:35)
[2023-11-20 02:50] VITALS: PULSE 69; RESP 16; O2SAT 96
[2023-11-20 04:00] VITALS: BP 145/81; PULSE 73; RESP 17; TEMP 36.4; O2SAT 94
[2023-11-20 05:37] LABS: Basophils % 0.6 %; Eosinophils % 0.5 %; Hematocrit 37.6 % (37-53); Lymphocytes # 0.8 10^3/uL (0.8-4.8); Mean Corpuscular HGB Conc 32.7 g/dL (30-55); Mean Corpuscular Volume 97.9 fl (82-101); Mean Platelet Volume 9.5 fL (7.4-10.4); Monocytes # 0.7 10^3/uL (0.2-0.9); Monocytes % 11.1 %; Neutrophils # 4.86 10^3/uL (1.8-7.7); Neutrophils % 74.1 %; Nucleated Red Blood Cells % 0 %; Platelet Count 183 10^3/cmm (157-399); Red Blood Count 3.84 10^6/uL (3.85-5.65); Red Cell Distribution Width 16.6 % (12.1-15.1); White Blood Count 6.56 10^3/uL (3.29-11.43)
[2023-11-20 05:58] LABS: Alanine Aminotransferase 17 U/L (0-41); Albumin Level 3.5 g/dL (3.5-5.2); Alkaline Phosphatase 69 U/L (40-130); Anion Gap 13.4 (5-19); Aspartate Amino Transferase 13 U/L (0-40); Blood Urea Nitrogen 29 mg/dL (8-23); Calcium 8.7 mg/dL (8.5-10.5); Carbon Dioxide 29 mmol/L (22-29); Chloride 98 mmol/L (98-107); Creatinine Clr Calc Pharmacy 61.7841; Globulin 2.4 g/dL (1.3-4.6); Glucose 93 mg/dL (65-115); Magnesium 2.1 mg/dL (1.7-2.3); Osmolality Calculated 290 mOsm/kg (285-295); Potassium 3.4 mmol/L (3.5-5.1); Sodium 137 mmol/L (136-145); Total Bilirubin 0.5 mg/dL (0.15-1.2); Total Protein 5.9 g/dL (6.6-8.7)
[2023-11-20] MEDS: levothyroxine 137 mcg Tablet PO (06:33)
[2023-11-20 08:00] VITALS: BP 132/81; PULSE 74; RESP 17; TEMP 36.3; O2SAT 95
[2023-11-20] MEDS: apixaban 5 mg Tablet PO (09:12)
[2023-11-20] MEDS: hyDRALAzine 25 mg Tablet PO (09:12)
[2023-11-20] MEDS: potassium chloride ER 20 mEq Tablet 40 MEQ PO (09:12)
[2023-11-20] MEDS: amiodarone 200 mg Tablet PO (09:12)
[2023-11-20] MEDS: sennosides-docusate Tablet 1 TAB PO (09:12)
[2023-11-20] MEDS: bumetanide 0.25 mg/mL SDV 10 mL 2 MG IVP (09:13)
[2023-11-20 09:18] VITALS: PULSE 70; RESP 16; O2SAT 94
[2023-11-20] MEDS: liothyronine 5 mcg Tablet PO (09:23)
[2023-11-20 11:50] VITALS: BP 160/81; PULSE 78; RESP 18; TEMP 36.7; O2SAT 94
--- NOTE | 2023-11-20 13:35 | PM.DCS ---
Discharge Providers Date of Admission: 11/17/23 18:55 Date of Discharge: November 20, 2023 Attending Provider at Admission: Naz Goode MD Attending Provider at Discharge: Giovanni Perez MD Primary Care Provider: Marsha Turner MD Diagnoses at Discharge Discharge Diagnosis (1) High risk medication use: Status: Acute Permanent problem details: prednisone and leflunomide 12/2022 (2) HTN (hypertension): Status: Acute Qualifiers: Hypertension type: primary hypertension Qualified Code(s): I10 - Essential (primary) hypertension (3) CHF (congestive heart failure), NYHA class III: Status: Acute Qualifiers: Congestive heart failure chronicity: chronic Congestive heart failure type: diastolic Qualified Code(s): I50.32 - Chronic diastolic (congestive) heart failure Permanent problem details: EF 10/2022 43% on stress test, 50% on echo (4) Atrial fibrillation: Status: Acute Qualifiers: Atrial fibrillation type: paroxysmal Qualified Code(s): I48.0 - Paroxysmal atrial fibrillation (5) Ascending aortic aneurysm: Status: Acute Qualifiers: Presence of rupture: without rupture Qualified Code(s): I71.21 - Aneurysm of the ascending aorta, without rupture Permanent problem details: Patient had a CT of the chest on 07/14/2023. The ascending aorta was found to be 4.0 cm in diameter. Essentially unchanged (6) ADAMS (dyspnea on exertion): Status: Acute (7) Other iron deficiency anemias: Status: Acute (8) Left lower lobe pneumonia: Status: Acute Reason for Visit Reason for Visit: Chest Pain Hospital Course Hospital Course Kojo Marinelli is a 77-year-old male with a past medical history significant for heart failure with preserved ejection fraction, restrictive lung disease, COPD, hypothyroidism, obstructive sleep apnea, GERD, and multiple other comorbidities who presented with chest pain, found to have left lower lobe pneumonia. He was treated with IV antibiotics and rotated to cefdinir and azithromycin at discharge. Further workup also revealed acute on chronic heart failure with preserved ejection fraction exacerbation treated with IV diuresis. Symptomatology significantly improved. Patient completed home oxygen evaluation and did not qualify for home oxygen. He was discharged to home in stable condition. 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 Physical Exam Narrative: General: Patient is awake and alert. Head: Normocephalic. Atraumatic. EOM intact. Neck: No JVD. Cardiovascular: Regular rate. No gallops. No murmurs. 1+ pitting edema in bilateral lower extremities. Lungs: Clear to auscultation, no use of accessory muscles, no crackles or wheezes. Skin: No jaundice. No rashes. Abdomen: Normal bowel sounds, abdomen soft and nontender. Genito Urinary: Genital exam not performed since complaints not related. Rectal: Rectal exam not performed since no symptoms indicated blood loss. Extremities: No cyanosis or clubbing. Musculoskeletal: No swollen or erythematous joints. Neurological: Moves all 4 extremities. No myoclonus. Urinary Catheter Management: Velazquez: Cath Placed During This Visit: yes Reason for Continuing Indwelling Catheter: Acute Urinary Retention or Obstruction Urinary Catheter Date of Insertion: 11/17/23 Urinary Catheter Time of Insertion: 22:22 Discharge Data Studies Completed and Pending Completed Studies During Hospitalization Category Date Time Status CT angio chest PE protcl [id number] Stat Cat Scan 11/17/23 15:43 Completed Modified barium swallow [FL barium swallow modifd [id number] Exams 11/18/23 09:05 Completed ] Routine XR chest 1V portable [id number] Stat Exams 11/17/23 13:14 Completed Pending at discharge Category Date Time Status Blood Culture Stat Lab 11/17/23 17:59 Results Sputum Culture and Gram Stain Stat Lab 11/17/23 17:26 Uncollected Radiology Impressions Chest X-Ray 11/17/23 13:14 Impression: There is cardiomegaly without failure or consolidation. Chest CTA 11/17/23 15:43 IMPRESSION: 1. Within the limits of less than optimal contrast as well as extensive artifact from metal in the spine, there is no evidence of a pulmonary embolism. 2. Lingular ground-glass infiltrate. Modified Barium Swallow 11/18/23 09:05 IMPRESSION: Limited flash penetration without aspiration of thin liquids. Laboratory Results WBC 6.56 10^3/uL (3.29-11.43) 11/20/23 05:16 RBC 3.84 10^6/uL (3.85-5.65) L 11/20/23 05:16 Hgb 12.30 g/dL (11.27-16.99) 11/20/23 05:16 Hct 37.6 % (37-53) 11/20/23 05:16 MCV 97.9 fl (82-101) 11/20/23 05:16 MCH 32.0 pg (27-33) 11/20/23 05:16 MCHC 32.7 g/dL (30-55) 11/20/23 05:16 RDW 16.6 % (12.1-15.1) H 11/20/23 05:16 Plt Count 183 10^3/cmm (157-399) 11/20/23 05:16 MPV 9.5 fL (7.4-10.4) 11/20/23 05:16 Neut % (Auto) 74.1 % 11/20/23 05:16 Lymph % (Auto) 12.0 % 11/20/23 05:16 [place] % (Auto) 11.1 % 11/20/23 05:16 Eos % (Auto) 0.5 % 11/20/23 05:16 Baso % (Auto) 0.6 % 11/20/23 05:16 Neut # (Auto) 4.86 10^3/uL (1.8-7.7) 11/20/23 05:16 Lymph # (Auto) 0.8 10^3/uL (0.8-4.8) 11/20/23 05:16 [place] # (Auto) 0.7 10^3/uL (0.2-0.9) 11/20/23 05:16 Eos # (Auto) 0.0 10^3/uL (0.0-0.8) 11/20/23 05:16 Baso # (Auto) 0.0 10^3/uL (0.0-0.1) 11/20/23 05:16 Nucleated RBC % (auto) 0 % 11/20/23 05:16 Nucleated RBCs # 0.0 /100WBC 11/20/23 05:16 Specimen Type Arterial 11/17/23 16:30 Sample Site Radial, right 11/17/23 16:30 ABG pH 7.46 (7.35-7.45) H 11/17/23 16:30 ABG pCO2 43.3 mmHg (35-45) 11/17/23 16:30 ABG pO2 116.0 mmHg (80.0-100.0) H 11/17/23 16:30 ABG PO2/FiO2 Ratio 414 11/17/23 16:30 ABG HCO3 30.7 mmol/L (22-26) H 11/17/23 16:30 ABG O2 Saturation 97.8 11/17/23 16:30 ABG Base Excess 6.1 mmol/L (-2.0-2.0) H 11/17/23 16:30 Shorty Test Pos 11/17/23 16:30 A-a O2 Gradient 3.8 mmHg (5-10) L 11/17/23 16:30 Hematocrit 37.8 % (42-52) L 11/17/23 16:30 Hgb O2 Saturation 97.1 % (95-100) 11/17/23 16:30 Carboxyhemoglobin 0.3 %THgb (0.4-20.1) L 11/17/23 16:30 Methemoglobin 0.4 % (0.4-1.5) 11/17/23 16:30 Total Hemoglobin 12.3 g/dL (14-18) L 11/17/23 16:30 Sodium 140.0 mmol/L (131-143) 11/17/23 16:30 Potassium 3.8 mmol/L (3.5-5.0) 11/17/23 16:30 Glucose 110.0 mg/dL (70-115) 11/17/23 16:30 Ionized Calcium 1.1 mmol/L (1.1-1.4) 11/17/23 16:30 O2 Delivery Device Nc 11/17/23 16:30 O2 Liters/Min 2.0 % 11/17/23 16:30 FiO2 28.0 % 11/17/23 16:30 Book Or Script Editor ID glc 11/17/23 16:30 Sodium 137 mmol/L (136-145) 11/20/23 05:16 Potassium 3.4 mmol/L (3.5-5.1) L 11/20/23 05:16 Chloride 98 mmol/L (98-107) 11/20/23 05:16 Carbon Dioxide 29 mmol/L (22-29) 11/20/23 05:16 Anion Gap 13.4 (5-19) 11/20/23 05:16 BUN 29 mg/dL (8-23) H 11/20/23 05:16 Creatinine 1.3 mg/dL (0.7-1.2) H 11/20/23 05:16 GFR Calculation Not Reportable 11/20/23 05:16 Glucose 93 mg/dL (65-115) 11/20/23 05:16 Calculated Osmolality 290 mOsm/kg (285-295) 11/20/23 05:16 Calcium 8.7 mg/dL (8.5-10.5) 11/20/23 05:16 Phosphorus 4.3 mg/dL (2.5-4.5) 11/18/23 04:45 Magnesium 2.1 mg/dL (1.7-2.3) 11/20/23 05:16 Total Bilirubin 0.5 mg/dL (0.15-1.2) 11/20/23 05:16 AST 13 U/L (0-40) 11/20/23 05:16 ALT 17 U/L (0-41) 11/20/23 05:16 Alkaline Phosphatase 69 U/L (40-130) 11/20/23 05:16 Troponin T Baseline 36 ng/L (0-15) H 11/17/23 12:47 Troponin T 120 Minute 31.76 ng/L (0-15) H 11/17/23 14:43 Delta Troponin T -4.24 ABS# (0-10) L 11/17/23 14:43 Troponin T Hi Sens 6Hr 27.49 ng/L (0-15) H 11/17/23 19:07 Troponin T Hi Sens 6Hr Delta -8.51 ng/L (0-12) L 11/17/23 19:07 NT-Pro-B Natriuret Pep 149 pg/mL (0-450) 11/17/23 12:47 Total Protein 5.9 g/dL (6.6-8.7) L 11/20/23 05:16 Albumin 3.5 g/dL (3.5-5.2) 11/20/23 05:16 Globulin 2.4 g/dL (1.3-4.6) 11/20/23 05:16 Urine Color Yellow (Yellow) 11/17/23 15:40 Urine Appearance Clear (CLEAR) 11/17/23 15:40 Urine pH 7.5 (5-7) 11/17/23 15:40 Ur Specific [place] 1.008 (1.005-1.030) 11/17/23 15:40 Urine Protein Negative (Negative) 11/17/23 15:40 Urine Glucose (UA) Negative (Normal) 11/17/23 15:40 Urine Ketones Negative (Negative) 11/17/23 15:40 Urine Blood Negative (Negative) 11/17/23 15:40 Urine Nitrate Negative (Negative) 11/17/23 15:40 Urine Bilirubin Negative (Negative) 11/17/23 15:40 Urine Urobilinogen 1.0 mg/dL (Negative) 11/17/23 15:40 Ur Leukocyte Esterase Negative (Negative) 11/17/23 15:40 Amorphous Sediment Not Reportable 11/17/23 15:40 Coronavirus 229E (PCR) Not detected (NOT DETECT) 11/17/23 13:54 SARS-CoV-2 (PCR) Not detected (NOT DETECT) 11/17/23 13:54 Vitals Last Vital Signs Temp 98.1 F 11/20/23 11:50 Pulse 78 11/20/23 11:50 Resp 18 11/20/23 11:50 BP 160/81 11/20/23 11:50 Pulse Ox 94 11/20/23 11:50 O2 Del Method Room Air 11/20/23 11:50 O2 Flow Rate 2 11/19/23 15:28 Discharge Plan Discharge Patient Disposition: Home Condition: Stable Prescriptions: New cefdinir 300 mg capsule 300 mg PO BID 7 Days Qty: 14 0RF azithromycin 250 mg tablet 250 mg PO DAILY 4 Days Qty: 4 0RF Rx Instructions: start on day 2 of therapy Continued (DME) MARK BRACE See Rx Instructions .Route .MEDSUPPLY Qty: 1 0RF Rx Instructions: As directed carvedilol 25 mg tablet 25 mg PO BID Qty: 180 3RF diclofenac sodium 1 % gel 4 g TOPICAL QID PRN (Reason: Pain) Qty: 100 2RF diphenhydramine HCl [Allergy (diphenhydramine)] 25 mg capsule 25 mg PO DAILY (DME) Modification to AFO Brace to the left See Rx Instructions .Route .MEDSUPPLY Qty: 1 0RF Rx Instructions: As directed by [facility] [place] omeprazole 40 mg capsule,delayed release(DR/EC) 40 mg PO QAM Qty: 90 1RF prednisone 10 mg tablet 10 mg PO DAILY Qty: 90 1RF pregabalin 25 mg capsule 25 mg PO BID Qty: 180 1RF oxybutynin chloride 5 mg tablet extended release 24hr 5 mg PO DAILY atorvastatin 40 mg tablet 40 mg PO BEDTIME Qty: 90 3RF hydralazine 50 mg tablet See Rx Instructions .ROUTE .COMPLEX Qty: 90 3RF Dose Instruction: TAKE 1 TABLET BY MOUTH THREE TIMES DAILY Rx Instructions: TAKE 1 TABLET BY MOUTH THREE TIMES DAILY acetaminophen 500 mg Capsule 1,000 mg PO BID levothyroxine [Synthroid] 137 mcg tablet 137 mcg PO QAM magnesium L-lactate [Magtab] 84 mg Tablet Extended Release 84 mg PO BID 30 Days Qty: 60 1RF Eliquis 5 mg Tablet 5 mg PO BID@0900,2100 Qty: 60 2RF Hold Instructions: Resume on 04/14/23. albuterol sulfate 2.5 mg /3 mL (0.083 %) solution for nebulization 2.5 mg inhalation Q6H PRN (Reason: Shortness Of Breath) nitroglycerin [Nitrostat] 0.4 mg Tablet, Sublingual 0.4 mg SUBLINGUAL Q5M PRN (Reason: Chest Pain) Rx Instructions: do not exceed 3 doses per episode albuterol sulfate 90 mcg/actuation HFA aerosol inhaler 1 - 2 puff INHALATION Q4H PRN (Reason: Wheezing) isosorbide mononitrate 30 mg Tablet Extended Release 24 Hr 60 mg PO BEDTIME Qty: 30 0RF amiodarone [Pacerone] 200 mg Tablet 200 mg PO DAILY Qty: 30 0RF liothyronine 5 mcg tablet 5 mcg PO BID sennosides-docusate sodium [Stool Softener-Laxative] 8.6-50 mg Tablet 1 tab PO DAILY Qty: 30 0RF bumetanide 2 mg tablet 2 mg PO DAILY Qty: 60 2RF potassium chloride 10 mEq tablet extended release 20 meq PO DAILY Qty: 30 0RF Discharge Orders: Discharge Order (Routine); Ordered 11/20/23 Ordered By: Giovanni Perez Referrals: Sonali Leahy FNP [Referring] - 11/25/23 9:30 am Melba Puga FNP [Nurse Practitioner] - 7-10 days (We have notified your physician's clinic of the need for a follow-up appointment to be scheduled. If you have not heard from them within the next 2 business days, please call them directly. ) Discharge Diet: Advance as tolerated, Cardiac and Low Salt Discharge Activity: Resume usual activity and Increase activity as tolerated Patient Instructions: Azithromycin (By mouth) (Zithromax, Zithromax Tri-William, Zithromax..., Cefdinir (By mouth) (Omnicef), Bacterial Pneumonia (DC), Opioid Safety Activity Restrictions/Additional Instructions: 1. Increase activity as tolerated. 2. Follow heart healthy diet. 2 g salt restriction. 3. Follow-up with PCP. 4. Follow-up with cardiology clinic for continued cardiac care. Discharge Attestations Time Spent in Discharge Care*: greater than 30 min Quality Metrics Clinical Quality Measures [ No reported AMI, CVA or VTE this stay] Coding Level of Care Code Acute Code for Chg Fwd Diagnoses High risk medication use Z79.899 Primary hypertension I10 Hypertension type: primary hypertension Chronic diastolic congestive heart failure, NYHA class 3 I50.32 Congestive heart failure chronicity: chronic Congestive heart failure type: diastolic Paroxysmal atrial fibrillation I48.0 Atrial fibrillation type: paroxysmal Aneurysm of ascending aorta without rupture I71.21 Presence of rupture: without rupture ADAMS (dyspnea on exertion) R06.09 Other iron deficiency anemias D50.8 Left lower lobe pneumonia J18.9
--- NOTE | 2023-11-20 15:40 | PC.NURSE ---
Discussed discharge with patient and spouse. Discussed new medications as well as continued medications, follow up appointments and any concerns patient might have. Patient and spouse verbalized understanding.
[2023-11-20 15:42] VITALS: BP 160/81; PULSE 78; RESP 18; TEMP 36.7; O2SAT 94
== END 2023-11-20 14:52 | disposition home or self-care (01) | DRG 193 ==
LOC: ER 14:01 → MEDSURG 18:56
PROVIDERS: Internal Medicine; Admitting Provider Internal Medicine; Emergency Provider Family Medicine; PCP Internal Medicine; Visit Provider Internal Medicine
DX: J18.9 Pneumonia, unspecified organism (principal); I50.33 Acute on chronic diastolic (congestive) heart failure; I25.110 Atherosclerotic heart disease of native coronary artery with unstable angina pectoris; J44.0 Chronic obstructive pulmonary disease with (acute) lower respiratory infection; I11.0 Hypertensive heart disease with heart failure; I73.9 Peripheral vascular disease, unspecified; M06.00 Rheumatoid arthritis without rheumatoid factor, unspecified site; E78.5 Hyperlipidemia, unspecified; E03.9 Hypothyroidism, unspecified; K21.9 Gastro-esophageal reflux disease without esophagitis; Z96.653 Presence of artificial knee joint, bilateral; Z96.643 Presence of artificial hip joint, bilateral; D50.8 Other iron deficiency anemias; G47.33 Obstructive sleep apnea (adult) (pediatric); J98.4 Other disorders of lung; R13.12 Dysphagia, oropharyngeal phase; I48.0 Paroxysmal atrial fibrillation; I71.21 Aneurysm of the ascending aorta, without rupture; Z79.899 Other long term (current) drug therapy; Z79.890 Hormone replacement therapy; Z88.6 Allergy status to analgesic agent; Z88.8 Allergy status to other drugs, medicaments and biological substances; Z79.01 Long term (current) use of anticoagulants; Z85.46 Personal history of malignant neoplasm of prostate; Z86.73 Personal history of transient ischemic attack (TIA), and cerebral infarction without residual deficits; Z11.52 Encounter for screening for COVID-19; Z86.16 Personal history of COVID-19; Z85.828 Personal history of other malignant neoplasm of skin; Z98.1 Arthrodesis status; Z90.49 Acquired absence of other specified parts of digestive tract; Z83.2 Family history of diseases of the blood and blood-forming organs and certain disorders involving the immune mechanism; Z82.49 Family history of ischemic heart disease and other diseases of the circulatory system; Z82.3 Family history of stroke; Z84.1 Family history of disorders of kidney and ureter
CPT/HCPCS: 36415; 36600; 51702; 71045; 71275; 74230; 80048; 80051; 80053; 81003; 81015; 82330; 82805; 83735; 83880; 84100; 84484; 85025; 87040; 87635; 92611; 93005; 94640; 94664; 94760; 96365; 96375; 97116; 97161; 99285; J0456; J0696; J1956; J2919; J3490; J7050

== ENCOUNTER → 2023-11-30 12:57 | Outpatient (BNVA) | payer MEDICARE, OTHER, SELFPAY | PROVIDERS: PCP Internal Medicine; Visit Provider Nurse Practitioner Family | DX: R07.9 Chest pain, unspecified (principal) | CPT/HCPCS: 99213 ==

== ENCOUNTER 2023-12-21 08:33 | Oncology outpatient (recurring) (ONCR) | payer MEDICARE, OTHER, SELFPAY ==
[2023-12-21 09:23] LABS: Basophils % 0.5 %; Eosinophils % 0.2 %; Hematocrit 36.5 % (37-53); Lymphocytes # 0.5 10^3/uL (0.8-4.8); Lymphocytes % 6.2 %; Mean Corpuscular HGB Conc 32.3 g/dL (30-55); Mean Corpuscular Hemoglobin 32.4 pg (27-33); Mean Corpuscular Volume 100.3 fl (82-101); Mean Platelet Volume 9.3 fL (7.4-10.4); Monocytes # 0.7 10^3/uL (0.2-0.9); Monocytes % 8.3 %; Neutrophils # 6.92 10^3/uL (1.8-7.7); Neutrophils % 84.2 %; Nucleated Red Blood Cells % 0 %; Platelet Count 158 10^3/cmm (157-399); Red Blood Count 3.64 10^6/uL (3.85-5.65); Red Cell Distribution Width 14.9 % (12.1-15.1); White Blood Count 8.22 10^3/uL (3.29-11.43)
[2023-12-21 09:29] VITALS: BP 133/66; PULSE 66; RESP 17; TEMP 36.2; O2SAT 95
[2023-12-21 09:41] LABS: C Reactive Protein 4.5 mg/L (0.0-4.9)
[2023-12-21 09:42] LABS: Alanine Aminotransferase 18 U/L (0-41); Albumin Level 3.6 g/dL (3.5-5.2); Alkaline Phosphatase 63 U/L (40-130); Anion Gap 12.7 (5-19); Aspartate Amino Transferase 14 U/L (0-40); Blood Urea Nitrogen 21 mg/dL (8-23); Calcium 8.7 mg/dL (8.5-10.5); Carbon Dioxide 28 mmol/L (22-29); Chloride 100 mmol/L (98-107); Creatinine Clr Calc Pharmacy 72.3015; Ferritin 225 ng/mL (30-400); Globulin 2.8 g/dL (1.3-4.6); Glucose 111 mg/dL (65-115); Iron 85 ug/dL (59-158); Osmolality Calculated 288 mOsm/kg (285-295); Percent Saturation 35.5 % (20-50); Potassium 3.7 mmol/L (3.5-5.1); Sodium 137 mmol/L (136-145); Total Bilirubin 0.5 mg/dL (0.15-1.2); Total Iron Binding Capacity 239 mcg/dl; Total Protein 6.4 g/dL (6.6-8.7); Unsaturated Iron Binding 154 ug/dL (112-347)
[2023-12-21] MEDS: sodium chloride 0.9% 250 ML 75 ML IV (09:46)
[2023-12-21] MEDS: acetaminophen 325 mg Tablet 650 MG PO (09:47)
[2023-12-21] MEDS: diphenhydrAMINE 50 mg/mL SDV 1mL 25 MG IVP (09:48)
[2023-12-21] MEDS: abatacept 1,000 MG in sodium chloride 0.9% (100 ml) 100 ML 200 MG IV (10:31)
[2023-12-21 11:08] VITALS: BP 139/66; PULSE 55; TEMP 36.3; O2SAT 95
== END 2024-01-13 23:59 | disposition home or self-care (01) ==
PROVIDERS: Nurse Practitioner Family; PCP Internal Medicine; Visit Provider Internal Medicine Rheumatology
DX: M06.042 Rheumatoid arthritis without rheumatoid factor, left hand (principal); M06.041 Rheumatoid arthritis without rheumatoid factor, right hand; Z79.899 Other long term (current) drug therapy; M51.35 Other intervertebral disc degeneration, thoracolumbar region; D50.8 Other iron deficiency anemias
CPT/HCPCS: 80053; 82728; 83540; 83550; 85025; 86140; 96365; 96375; A4222; J0129; J1200; J7050

== ENCOUNTER → 2023-12-23 10:26 | Outpatient (BNVA) | payer MEDICARE, OTHER, SELFPAY | PROVIDERS: PCP Internal Medicine; Visit Provider Internal Medicine Rheumatology | DX: M06.041 Rheumatoid arthritis without rheumatoid factor, right hand (principal); M06.042 Rheumatoid arthritis without rheumatoid factor, left hand; Z79.899 Other long term (current) drug therapy; Z71.85 Encounter for immunization safety counseling; R76.8 Other specified abnormal immunological findings in serum; Z87.891 Personal history of nicotine dependence; M19.90 Unspecified osteoarthritis, unspecified site; Z96.643 Presence of artificial hip joint, bilateral; Z86.2 Personal history of diseases of the blood and blood-forming organs and certain disorders involving the immune mechanism; K21.9 Gastro-esophageal reflux disease without esophagitis; K31.84 Gastroparesis; E03.9 Hypothyroidism, unspecified; G62.9 Polyneuropathy, unspecified; I25.10 Atherosclerotic heart disease of native coronary artery without angina pectoris; G45.9 Transient cerebral ischemic attack, unspecified; I48.91 Unspecified atrial fibrillation; R42 Dizziness and giddiness | CPT/HCPCS: 99214 ==

== ENCOUNTER 2023-12-28 13:36 | Emergency (ER) | payer MEDICARE, OTHER, SELFPAY ==
[2023-12-28] VITALS (8 sets, daily range): BP systolic 159–184; BP diastolic 57–90; PULSE 57–113; RESP 16–20; TEMP 36.7; O2SAT 98–100; BMI 39.2
--- NOTE | 2023-12-28 13:42 | CT_ITS ---
WS: [id number] CT HEAD NONCONTRAST HISTORY: trauma TECHNIQUE: Contiguous axial imaging performed through the brain. Bone and soft tissue windows. Sagitt al and coronal reformats reviewed. All CT scans at [facility] use at least one of these dose optimization techniques: automated exposure control; mA and/or kV adjustment per patient size (includ es targeted exams where dose is matched to clinical indication); or iterative reconstruction. DLP: 2137.04 mGy.cm COMPARISON: 08/03/2022 No acute intracranial hemorrhage, midline shift or mass effect. Moderate bilateral atrophy and small vessel disease. Ventricles: Normal size with no hydrocephalus. No inferior displacement of the cerebellar tonsils. Paranasal sinuses: As visualized are clear. Mastoid air cells: Fluid in the mastoid air cells bilaterally, greatest on the LEFT. Calvarium and scalp: No skull fracture. There is a small soft tissue contusion and laceration over th e RIGHT frontal bone. CT/CT head wo con* [id number] IMPRESSION: 1. No acute intracranial hemorrhage or edema. 2. Moderate small vessel disease and atrophy. 3. Small RIGHT frontal scalp hematoma.
--- NOTE | 2023-12-28 13:42 | CT_ITS ---
WS: [id number] CT CERVICAL SPINE HISTORY: trauma TECHNIQUE: Contiguous 2.0 mm axial imaging performed through the entire cervical spine. Sagittal and coronal reformats also performed. All CT scans at [facility] use at least one of these dose o ptimization techniques: automated exposure control; mA and/or kV adjustment per patient size (include s targeted exams where dose is matched to clinical indication); or iterative reconstruction. DLP: 2137.04 mGy.cm COMPARISON: None available. There is extensive cervical hardware from prior fusions. Anterior cervical fusion from C3-T1. Posteri or fusion also extends from C3 into the upper thoracic spine. Bone detail is extremely limited due to the hardware artifact. Fusion across several of the facet joints. Discs are fused also. Lateral masses of C1 and C2 are aligned. The odontoid is intact. No hardware fracture. No cervical sp ine fracture is identified. Marked bilateral facet joint arthropathy with fusion across the joints. Lung apices are clear. Extensive vascular calcifications in the carotid arteries. Probable remote fracture versus unfused apophysis at T2 seen on the sagittal reformats. CT/CT cervical spin wo con* [id number] IMPRESSION: 1. Examination is limited by the extensive hardware from the anterior and post erior cervical fusions. 2. No acute fracture is identified. 3. No hardware fracture. 4. Fusion across the disc spaces and facet joints.
--- NOTE | 2023-12-28 13:43 | ED_ITS ---
HPI - Fall 2 General: Chief Complaint: Fall Stated Complaint: Fall, Head Lac Time Seen by Provider: 12/28/23 13:40 History of Present Illness: 78-year-old male presents emergency room after a ground-level mechanical fall. Patient usually walks with 2 canes he was going up some stairs and stumbled and fell forward. He struck his head. He has a large open abrasion no other lacerations no facial contusions. He did not lose consciousness no nausea or vomiting. He is complains of some back pain but has chronic back pain as well. No pain in the arms or leg no other injury. Patient is on oral anticoagulants. He has a history of atrial fibrillation. He takes Eliquis 5 mg twice a day. Associated symptoms-after fall: Denies abdominal pain, chest pain or neck pain Related Data Home Medications Medication Instructions Recorded Confirmed acetaminophen 500 mg capsule 1,000 mg PO BID 02/06/20 12/28/23 levothyroxine 137 mcg tablet 137 mcg PO QAM 10/14/22 12/28/23 (Synthroid) albuterol sulfate 90 mcg/actuation 1 - 2 puff inhalation Q4H PRN 12/22/22 12/28/23 aerosol inhaler Wheezing nitroglycerin 0.4 mg sublingual 0.4 mg sublingual Q5M PRN Chest 12/22/22 12/28/23 tablet (Nitrostat) Pain liothyronine 5 mcg tablet 5 mcg PO BID 04/01/23 12/28/23 diphenhydramine HCl 25 mg capsule 25 mg PO DAILY 08/16/23 12/28/23 (Allergy (diphenhydramine)) oxybutynin chloride 5 mg 5 mg PO DAILY 10/22/23 12/28/23 tablet,extended release 24 hr bumetanide 2 mg tablet 2 mg PO BID 11/30/23 12/28/23 Previous Rx's Medication Instructions Recorded MARK BRACE #1 ea 08/01/20 carvedilol 25 mg tablet 25 mg PO BID #180 tabs 03/24/21 Modification to AFO Brace to the #1 ea 02/02/22 left apixaban 5 mg tablet (Eliquis) 5 mg PO BID@0900,2100 #60 tabs 11/12/22 magnesium L-lactate 84 mg 84 mg PO BID 30 days #60 tabs 11/12/22 tablet,extended release (Magtab) amiodarone 200 mg tablet (Pacerone) 200 mg PO DAILY #30 tabs 02/19/23 potassium chloride 10 mEq 20 meq (2 x 10 mEq) PO DAILY #30 04/06/23 tablet,extended release tabs sennosides 8.6 mg-docusate sodium 1 tab PO DAILY #30 tabs 04/06/23 50 mg tablet (Stool Softener-Laxative) atorvastatin 40 mg tablet 40 mg PO BEDTIME #90 tabs 08/10/23 hydralazine 50 mg tablet See Rx Instructions .Route 09/27/23 .COMPLEX #90 tabs diclofenac sodium 1 % topical gel 4 g topical QID PRN Pain #100 grams 12/23/23 omeprazole 40 mg capsule,delayed 40 mg PO QAM #90 caps 12/23/23 release prednisone 10 mg tablet 10 mg PO DAILY #90 tabs 12/23/23 pregabalin 25 mg capsule 25 mg PO BID #180 caps 12/23/23 isosorbide mononitrate 30 mg 60 mg (2 x 30 mg) PO BEDTIME #30 12/28/23 tablet,extended release 24 hr tabs Allergies Allergy/AdvReac Type Severity Reaction Status Date / Time metoclopramide [From Reglan] Allergy Unknown Verified 12/23/23 10:58 morphine Allergy ALGY-Hives Verified 12/23/23 10:58 tamsulosin [From Flomax] Allergy ADR/ALGY-Hy Verified 12/23/23 10:58 potension zolpidem [From Ambien] Allergy Unknown Verified 12/23/23 10:58 hydrocodone AdvReac Mild Hypotension Verified 12/23/23 10:58 oxycodone AdvReac Mild Hypotension Verified 12/23/23 10:58 paper tape Allergy tears skin Uncoded 12/23/23 10:58 off Review of Systems 2 Const: Denies: fever(s) or chills Card: Denies: chest pain Resp: Denies: dyspnea GI: Denies: abdominal pain : Denies: dysuria, urinary frequency or urinary urgency Musc: Denies: neck pain or back pain Skin/Breast: Denies: rash PFSH ED 2 PFSH: Medical History Other iron deficiency anemias ADAMS (dyspnea on exertion) Anemia HTN (hypertension) High risk medication use prednisone and leflunomide 12/2022 Atrial fibrillation Ascending aortic aneurysm Patient had a CT of the chest on 07/14/2023. The ascending aorta was found to be 4.0 cm in diameter. Essentially unchanged CHF (congestive heart failure), NYHA class III EF 10/2022 43% on stress test, 50% on echo Peripheral arterial disease Chronic anticoagulation eliquis Unstable angina CAD (coronary artery disease) Seroma, postoperative Spinal stenosis, thoracic Degenerative disc disease, thoracic History of prostate cancer Urgency incontinence Renal cyst Acquired calcaneovarus deformity of both feet Lumbar stenosis with neurogenic claudication Orthostatic hypotension Venous insufficiency of both lower extremities Acute blood loss as cause of postoperative anemia Failed back surgical syndrome DDD (degenerative disc disease), lumbar Chronic back pain History of TIA (transient ischemic attack) Radiation cystitis Carotid artery disease Hx of cataract Closed fracture of right patella COVID-2020 Metatarsus adductus Osteoarthritis, generalized Seronegative rheumatoid arthritis Positive CORBY (antinuclear antibody) EDUARDO was negative in 2013 Gastroparesis GERD (gastroesophageal reflux disease) Cervical postlaminectomy syndrome FUAD (obstructive sleep apnea) Hyperlipidemia Hypothyroid COPD (chronic obstructive pulmonary disease) H/O malignant neoplasm of skin Surgical History Hx of excision of epidermal inclusion cyst Hx of excision of mass 04/12/23 Dr Fitzgerald- Elliptical excision of skin and subcutaneous back mass S/P laminectomy with spinal fusion S/P spinal fusion 02/2021 - T9-S1 Dr Delarosa History of penile implant Status post spinal arthrodesis S/P lumbar fusion Status post revision of total replacement of right knee History of total bilateral knee replacement (TKR) History of cardiac cath ~2012 nonobstructive 10/2022 stress test EF 43 %, small areas prior infarcts RCA and LAD territories History of hip surgery RIGHT 04/11/19 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 History of total right hip arthroplasty History of total left hip arthroplasty History of abdominal aortic aneurysm (AAA) repair History of tonsillectomy and adenoidectomy Hx of appendectomy History of back surgery multiple procedures (>10) H/O neck surgery x 2 Hx of cholecystectomy H/O colonoscopy 2011 H/O esophagogastroduodenoscopy 2012 Family History Mother , Age 81 Bleeding disorder Clotting disorder CAD (coronary artery disease) 60s Cancer Stroke Father , Age 94 CAD (coronary artery disease) 80 Dementia Daughter Chronic kidney disease (CKD) Brother CAD (coronary artery disease) [place] Cancer Denies family history of Diabetes Suicide Anesthesia complication Lung disease Social History Smoking and tobacco/nicotine status: former use of tobacco/nicotine Alcohol intake: never Substance/Drug Use: never Household members: spouse Marital status: Current occupational status: retired Special danny needs: No Agree to transfusion: Yes Physical Exam 2 Const: COMMON NORMALS: no acute distress GENERAL APPEARANCE: cooperative and comfortable ORIENTATION/CONSCIOUSNESS: Yes awake, Yes oriented to person, Yes oriented to place and Yes oriented to time HENMT: COMMON NORMALS: normocephalic (Scalp abrasion no full-thickness laceration) and hearing grossly normal bilaterally HEAD & SCALP: n ormocephalic (Scalp abrasion no full-thickness laceration) Resp: COMMON NORMALS: normal respiratory effort, No retractions, No use of accessory muscles and clear to auscultation bilaterally AUSCULTATION: clear to auscultation bilaterally Cardio: COMMON NORMALS: regular rate, regular rhythm and No murmurs present (Cardio) RATE: regular rate RHYTHM: regular rhythm GI: COMMON NORMALS: Soft to palpation and No hepatosplenomegaly present A USCULTATION: Yes normoactive bowel sounds PALPATION: Yes Soft to palpation, No Tenderness to palpation present (GI), No Guarding due to palpation present (GI) and Yes No hepatosplenomegaly present Extremity: COMMON NORMALS: normal to inspection, capillary refill normal, no clubbing, cyanosis or edema, no calf tenderness and no pedal edema Neuro: SENSORIUM/ORIENTATION: Yes oriented to person, Yes oriented to place and Yes oriented to time Skin: COMMON NORMALS: no rashes or lesions noted GENERAL SKIN EXAM: no rashes or lesions noted Course 2 Vital Signs: Vital signs: Vital Signs Temperature 98.0 F 12/28/23 14:22 Pulse Rate 66 12/28/23 15:56 Respiratory Rate 16 12/28/23 15:56 Blood Pressure 159/57 12/28/23 15:56 Pulse Oximetry 99 12/28/23 15:56 Oxygen Delivery Me thod Nasal Cannula 12/28/23 15:51 Oxygen Flow Rate 3 12/28/23 15:51 MDM - Fall Medical Decision Making Imaging negative. Labs reviewed. Patient be discharged home to follow-up with primary care as needed apply topical antibiotic ointment to the abrasion on the forehead twice daily until 7 days. Medical Records I reviewed the patient's medical records. Lab Data I reviewed the patient's lab results. 12/28/23 15:08 12/28/23 15:08 Radiology Impressions Cervical Spine CT 12/28/23 13:42 IMPRESSION: 1. Examination is limited by the extensive hardware from the anterior and posterior cervical fusions. 2. No acute fracture is identified. 3. No hardware fracture. 4. Fusion across the disc spaces and facet joints. Head CT 12/28/23 13:42 IMPRESSION: 1. No acute intracranial hemorrhage or edema. 2. Moderate small vessel disease and atrophy. 3. Small RIGHT frontal scalp hematoma. Laboratory Results WBC 6.59 10^3/uL (3.29-11.43) 12/28/23 15:08 RBC 3.67 10^6/uL (3.85-5.65) L 12/28/23 15:08 Hgb 11.60 g/dL (11.27-16.99) 12/28/23 15:08 Hct 37.3 % (37-53) 12/28/23 15:08 MCV 101.6 fl (82-101) H 12/28/23 15:08 MCH 31.6 pg (27-33) 12/28/23 15:08 MCHC 31.1 g/dL (30-55) 12/28/23 15:08 RDW 14.6 % (12.1-15.1) 12/28/23 15:08 Plt Count 158 10^3/cmm (157-399) 12/28/23 15:08 MPV 9.3 fL (7.4-10.4) 12/28/23 15:08 Neut % (Auto) 83.6 % 12/28/23 15:08 Lymph % (Auto) 7.7 % 12/28/23 15:08 [place] % (Auto) 7.3 % 12/28/23 15:08 Eos % (Auto) 0.0 % 12/28/23 15:08 Baso % (Auto) 0.5 % 12/28/23 15:08 Neut # (Auto) 5.51 10^3/uL (1.8-7.7) 12/28/23 15:08 Lymph # (Auto) 0.5 10^3/uL (0.8-4.8) L 12/28/23 15:08 [place] # (Auto) 0.5 10^3/uL (0.2-0.9) 12/28/23 15:08 Eos # (Auto) 0.0 10^3/uL (0.0-0.8) 12/28/23 15:08 Baso # (Auto) 0.0 10^3/uL (0.0-0.1) 12/28/23 15:08 Nucleated RBC % (auto) 0 % 12/28/23 15:08 Nucleated RBCs # 0.0 /100WBC 12/28/23 15:08 Sodium 135 mmol/L (136-145) L 12/28/23 15:08 Potassium 4.1 mmol/L (3.5-5.1) 12/28/23 15:08 Chloride 99 mmol/L (98-107) 12/28/23 15:08 Carbon Dioxide 25 mmol/L (22-29) 12/28/23 15:08 Anion Gap 15.1 (5-19) 12/28/23 15:08 BUN 19 mg/dL (8-23) 12/28/23 15:08 Creatinine 1.1 mg/dL (0.7-1.2) 12/28/23 15:08 GFR Calculation Not Reportable 12/28/23 15:08 Glucose 127 mg/dL (65-115) H 12/28/23 15:08 Calculated Osmolality 284 mOsm/kg (285-295) L 12/28/23 15:08 Calcium 8.3 mg/dL (8.5-10.5) L 12/28/23 15:08 Total Bilirubin 0.4 mg/dL (0.15-1.2) 12/28/23 15:08 AST 18 U/L (0-40) 12/28/23 15:08 ALT 23 U/L (0-41) 12/28/23 15:08 Alkaline Phosphatase 70 U/L (40-130) 12/28/23 15:08 Total Protein 6.0 g/dL (6.6-8.7) L 12/28/23 15:08 Albumin 3.5 g/dL (3.5-5.2) 12/28/23 15:08 Globulin 2.5 g/dL (1.3-4.6) 12/28/23 15:08 All radiology interpretation(s) finalized by discharge Discharge Plan Discharge Patient Disposition: Home Clinical Impression: Abrasion of scalp, Fall (on) (from) other stairs and steps, initial encounter Condition: Stable Prescriptions: No Action (DME) MARK BRACE See Rx Instructions .Route .MEDSUPPLY Qty: 1 0RF Rx Instructions: As directed carvedilol 25 mg tablet 25 mg PO BID Qty: 180 3RF diphenhydramine HCl [Allergy (diphenhydramine)] 25 mg capsule 25 mg PO DAILY diclofenac sodium 1 % gel 4 g TOPICAL QID PRN (Reason: Pain) Qty: 100 2RF omeprazole 40 mg capsule,delayed release(DR/EC) 40 mg PO QAM Qty: 90 1RF prednisone 10 mg tablet 10 mg PO DAILY Qty: 90 1RF pregabalin 25 mg capsule 25 mg PO BID Qty: 180 1RF bumetanide 2 mg tablet 2 mg PO BID (DME) Modification to AFO Brace to the left See Rx Instructions .Route .MEDSUPPLY Qty: 1 0RF Rx Instructions: As directed by Alpha and [place] oxybutynin chloride 5 mg tablet extended release 24hr 5 mg PO DAILY atorvastatin 40 mg tablet 40 mg PO BEDTIME Qty: 90 3RF hydralazine 50 mg tablet See Rx Instructions .ROUTE .COMPLEX Qty: 90 3RF Dose Instruction: TAKE 1 TABLET BY MOUTH THREE TIMES DAILY Rx Instructions: TAKE 1 TABLET BY MOUTH THREE TIMES DAILY isosorbide mononitrate 30 mg tablet extended release 24 hr 60 mg PO BEDTIME Qty: 30 0RF acetaminophen 500 mg Capsule 1,000 mg PO BID levothyroxine [Synthroid] 137 mcg tablet 137 mcg PO QAM magnesium L-lactate [Magtab] 84 mg Tablet Extended Release 84 mg PO BID 30 Days Qty: 60 1RF Eliquis 5 mg Tablet 5 mg PO BID@0900,2100 Qty: 60 2RF Hold Instructions: Resume on 04/14/23. nitroglycerin [Nitrostat] 0.4 mg Tablet, Sublingual 0.4 mg SUBLINGUAL Q5M PRN (Reason: Chest Pain) Rx Instructions: do not exceed 3 doses per episode albuterol sulfate 90 mcg/actuation HFA aerosol inhaler 1 - 2 puff INHALATION Q4H PRN (Reason: Wheezing) amiodarone [Pacerone] 200 mg Tablet 200 mg PO DAILY Qty: 30 0RF liothyronine 5 mcg tablet 5 mcg PO BID sennosides-docusate sodium [Stool Softener-Laxative] 8.6-50 mg Tablet 1 tab PO DAILY Qty: 30 0RF potassium chloride 10 mEq tablet extended release 20 meq PO DAILY Qty: 30 0RF Discharge Orders: Discharge ED (Routine); Ordered 12/28/23 Ordered By: Checo Chairez Referrals: Marsha Turner MD [Primary Care Provider] - Discharge Diet: Usual diet Discharge Activity: Increase activity as tolerated Patient Instructions: Opioid Safety, Pain Management Activity Restrictions/Additional Instructions: Thank you for choosing [facility] for your healthcare needs today. It is very important that you follow up as instructed or that you return to the Emergency Department should you have concerns or if your condition changes or worsens in any way. You are seen after a fall CT of your head and neck were negative for any acute injury. Use topical antibiotic ointment [id number] to apply to the wound on the scalp twice a day until it is healed. Coding Level of Care Code ED It Security Manager for Lauren Zimmerman
[2023-12-28 15:12] LABS: Basophils % 0.5 %; Hematocrit 37.3 % (37-53); Lymphocytes # 0.5 10^3/uL (0.8-4.8); Lymphocytes % 7.7 %; Mean Corpuscular HGB Conc 31.1 g/dL (30-55); Mean Corpuscular Hemoglobin 31.6 pg (27-33); Mean Corpuscular Volume 101.6 fl (82-101); Mean Platelet Volume 9.3 fL (7.4-10.4); Monocytes # 0.5 10^3/uL (0.2-0.9); Monocytes % 7.3 %; Neutrophils # 5.51 10^3/uL (1.8-7.7); Neutrophils % 83.6 %; Nucleated Red Blood Cells % 0 %; Platelet Count 158 10^3/cmm (157-399); Red Blood Count 3.67 10^6/uL (3.85-5.65); Red Cell Distribution Width 14.6 % (12.1-15.1); White Blood Count 6.59 10^3/uL (3.29-11.43)
[2023-12-28 15:30] LABS: Alanine Aminotransferase 23 U/L (0-41); Albumin Level 3.5 g/dL (3.5-5.2); Alkaline Phosphatase 70 U/L (40-130); Anion Gap 15.1 (5-19); Aspartate Amino Transferase 18 U/L (0-40); Blood Urea Nitrogen 19 mg/dL (8-23); Calcium 8.3 mg/dL (8.5-10.5); Carbon Dioxide 25 mmol/L (22-29); Chloride 99 mmol/L (98-107); Creatinine Clr Calc Pharmacy 70.7064; Globulin 2.5 g/dL (1.3-4.6); Glucose 127 mg/dL (65-115); Osmolality Calculated 284 mOsm/kg (285-295); Potassium 4.1 mmol/L (3.5-5.1); Sodium 135 mmol/L (136-145); Total Bilirubin 0.4 mg/dL (0.15-1.2)
== END 2023-12-28 16:09 | disposition home or self-care (01) ==
PROVIDERS: Emergency Provider Family Medicine; PCP Internal Medicine
DX: S00.01XA Abrasion of scalp, initial encounter (principal); Z79.01 Long term (current) use of anticoagulants; Z87.891 Personal history of nicotine dependence; I11.0 Hypertensive heart disease with heart failure; I50.9 Heart failure, unspecified; I25.10 Atherosclerotic heart disease of native coronary artery without angina pectoris; Z85.46 Personal history of malignant neoplasm of prostate; Z86.73 Personal history of transient ischemic attack (TIA), and cerebral infarction without residual deficits; J44.9 Chronic obstructive pulmonary disease, unspecified; E78.5 Hyperlipidemia, unspecified; W10.8XXA Fall (on) (from) other stairs and steps, initial encounter
CPT/HCPCS: 70450; 72125; 80053; 85025; 99284

== ENCOUNTER 2024-01-06 14:51 | Outpatient (CLI) | payer MEDICARE, OTHER, SELFPAY ==
--- NOTE | 2024-01-06 15:01 | XR_ITS ---
WS: [id number] Exam: XR knee RT 4V [id number] Date/Time of Exam: 01/06/2024 3:16 PM Reason For Exam: pain in right knee Intact total knee replacement. Moderate-sized effusion in the suprapatellar bursa. XR/XR knee RT 4V [id number] IMPRESSION: 1. Stable total knee replacement. 2. Prominent joint effusion in the suprapatellar bursa.
== END 2024-01-06 14:52 | disposition home or self-care (01) ==
PROVIDERS: PCP Internal Medicine; Visit Provider Nurse Practitioner Family
DX: M25.461 Effusion, right knee (principal); Z96.651 Presence of right artificial knee joint
CPT/HCPCS: 73564

== ENCOUNTER → 2024-01-17 08:21 | Outpatient (BNVA) | payer MEDICARE, OTHER, SELFPAY | PROVIDERS: PCP Internal Medicine; Visit Provider Specialist | DX: M25.561 Pain in right knee; G89.29 Other chronic pain; Z96.651 Presence of right artificial knee joint | CPT/HCPCS: 73560; 73565; 99214 ==

== ENCOUNTER → 2024-01-24 13:06 | Outpatient (BNVA) | payer MEDICARE, OTHER, SELFPAY | PROVIDERS: PCP Internal Medicine; Visit Provider Nurse Practitioner Family | DX: L81.4 Other melanin hyperpigmentation (principal); L57.8 Other skin changes due to chronic exposure to nonionizing radiation; Z08 Encounter for follow-up examination after completed treatment for malignant neoplasm; Z85.828 Personal history of other malignant neoplasm of skin; D48.5 Neoplasm of uncertain behavior of skin | CPT/HCPCS: 11102; 17000; 99214 ==

== ENCOUNTER → 2024-01-26 13:51 | Outpatient (BNVA) | payer MEDICARE, OTHER, SELFPAY | PROVIDERS: PCP Internal Medicine; Visit Provider Podiatrist Foot & Ankle Surgery | DX: L60.8 Other nail disorders (principal); I73.9 Peripheral vascular disease, unspecified; L60.3 Nail dystrophy; E03.9 Hypothyroidism, unspecified; Z79.01 Long term (current) use of anticoagulants | CPT/HCPCS: 11721 ==

== ENCOUNTER 2024-02-04 09:00 | Oncology outpatient (recurring) (ONCR) | payer MEDICARE, OTHER, SELFPAY ==
[2024-01-18 08:14] VITALS: BP 117/54; PULSE 60; RESP 18; TEMP 36.6; O2SAT 97
[2024-01-18] MEDS: acetaminophen 325 mg Tablet 650 MG PO (08:27)
[2024-01-18] MEDS: diphenhydrAMINE 50 mg/mL SDV 1mL 25 MG IVP (08:27)
[2024-01-18] MEDS: abatacept 1,000 MG in sodium chloride 0.9% (100 ml) 100 ML 200 MG IV (09:03)
[2024-01-18 09:47] VITALS: BP 115/59; PULSE 54; RESP 18; TEMP 36.9; O2SAT 94
[2024-02-04 09:09] LABS: Basophils % 0.6 %; Eosinophils % 0.4 %; Hematocrit 36.3 % (37-53); Lymphocytes # 0.5 10^3/uL (0.8-4.8); Lymphocytes % 6.9 %; Mean Corpuscular HGB Conc 32.2 g/dL (30-55); Mean Corpuscular Hemoglobin 32.3 pg (27-33); Mean Corpuscular Volume 100.3 fl (82-101); Mean Platelet Volume 9.2 fL (7.4-10.4); Monocytes # 0.5 10^3/uL (0.2-0.9); Monocytes % 7.5 %; Neutrophils # 5.77 10^3/uL (1.8-7.7); Neutrophils % 83.6 %; Nucleated Red Blood Cells % 0 %; Platelet Count 170 10^3/cmm (157-399); Red Blood Count 3.62 10^6/uL (3.85-5.65); Red Cell Distribution Width 14.2 % (12.1-15.1); White Blood Count 6.91 10^3/uL (3.29-11.43)
[2024-02-04 09:32] LABS: Alanine Aminotransferase 19 U/L (0-41); Albumin Level 3.6 g/dL (3.5-5.2); Alkaline Phosphatase 66 U/L (40-130); Anion Gap 17.8 (5-19); Aspartate Amino Transferase 14 U/L (0-40); Blood Urea Nitrogen 18 mg/dL (8-23); Calcium 8.9 mg/dL (8.5-10.5); Carbon Dioxide 23 mmol/L (22-29); Chloride 104 mmol/L (98-107); Creatinine Clr Calc Pharmacy 61.2946; Ferritin 177 ng/mL (30-400); Globulin 2.6 g/dL (1.3-4.6); Glucose 137 mg/dL (65-115); Iron 71 ug/dL (59-158); Osmolality Calculated 296 mOsm/kg (285-295); Percent Saturation 28.6 % (20-50); Potassium 3.8 mmol/L (3.5-5.1); Sodium 141 mmol/L (136-145); Total Bilirubin 0.4 mg/dL (0.15-1.2); Total Iron Binding Capacity 248 mcg/dl; Total Protein 6.2 g/dL (6.6-8.7); Unsaturated Iron Binding 177 ug/dL (112-347)
[2024-02-04 11:11] LABS: D Dimer 0.61 ug/mLFEU (0-0.59)
[2024-02-04 11:23] LABS: NT Pro B Type Natriuretic Pept 226 pg/mL (0-450)
== END 2024-02-12 23:59 | disposition home or self-care (01) ==
PROVIDERS: Internal Medicine Cardiovascular Disease; Nurse Practitioner Family; PCP Internal Medicine; Visit Provider Internal Medicine Rheumatology
DX: D64.9 Anemia, unspecified; Z79.899 Other long term (current) drug therapy; R63.5 Abnormal weight gain; R06.02 Shortness of breath; Z53.9 Procedure and treatment not carried out, unspecified reason
CPT/HCPCS: 36415; 80053; 82728; 83540; 83550; 83880; 85025; 85378; 96365; 96375; 99214; A4222; J0129; J1200

== ENCOUNTER 2024-02-08 09:32 | Outpatient (CLI) | payer MEDICARE, OTHER, SELFPAY ==
--- NOTE | 2024-02-08 09:41 | USR_ITS ---
PROCEDURE INFORMATION: Exam: US Left Limited Joint or Other Non-Vascular Extremity Structure Exam date and time: 02/08/2024 9:56 AM Age: 78 years old Clinical indication: Patient HX: Edema/thoracic region, laterally to most recent scar TECHNIQUE: Imaging protocol: US left limited joint or other nonvascular extremity structure. Real-time ultrasound with image documentation. Exam focused on the area of clinical interest. COMPARISON: CT cervical spin wo con* [id number] 12/28/2023 2:00 PM FINDINGS: Soft tissues: Unremarkable. No loculated collections. No mass. US/US soft tissue/extremity [id number] IMPRESSION: Unremarkable US.
[2024-02-08 13:22] LABS: Anion Gap 17.1 (5-19); Blood Urea Nitrogen 18 mg/dL (8-23); Calcium 8.7 mg/dL (8.5-10.5); Carbon Dioxide 25 mmol/L (22-29); Chloride 100 mmol/L (98-107); Glucose 110 mg/dL (65-115); Osmolality Calculated 289 mOsm/kg (285-295); Potassium 4.1 mmol/L (3.5-5.1); Sodium 138 mmol/L (136-145)
== END 2024-02-08 09:33 | disposition home or self-care (01) ==
LOC: RAD 09:33
PROVIDERS: Internal Medicine Cardiovascular Disease; PCP Internal Medicine; Visit Provider Nurse Practitioner Family
DX: R06.02 Shortness of breath (principal); R60.9 Edema, unspecified; I48.0 Paroxysmal atrial fibrillation; E78.2 Mixed hyperlipidemia; I25.10 Atherosclerotic heart disease of native coronary artery without angina pectoris; I11.0 Hypertensive heart disease with heart failure; I50.32 Chronic diastolic (congestive) heart failure; I71.21 Aneurysm of the ascending aorta, without rupture; Z79.01 Long term (current) use of anticoagulants
CPT/HCPCS: 36415; 76882; 80048; 99214

== ENCOUNTER 2024-02-15 08:00 | Oncology outpatient (recurring) (ONCR) | payer MEDICARE, OTHER, SELFPAY ==
[2024-02-15] MEDS: acetaminophen 325 mg Tablet 650 MG PO (08:53)
[2024-02-15] MEDS: diphenhydrAMINE 50 mg/mL SDV 1mL 25 MG IVP (08:55)
[2024-02-15] MEDS: abatacept 1,000 MG in sodium chloride 0.9% (100 ml) 100 ML 200 MG IV (09:51)
[2024-02-15 10:45] VITALS: BP 133/64; PULSE 68; RESP 17; TEMP 36.2; O2SAT 96
== END 2024-03-14 23:59 | disposition home or self-care (01) ==
PROVIDERS: PCP Internal Medicine; Visit Provider Internal Medicine Rheumatology
DX: M06.042 Rheumatoid arthritis without rheumatoid factor, left hand (principal); M06.041 Rheumatoid arthritis without rheumatoid factor, right hand; Z79.899 Other long term (current) drug therapy
CPT/HCPCS: 96365; 96375; A4222; J0129; J1200

== ENCOUNTER → 2024-03-20 14:41 | Outpatient (BNVA) | payer MEDICARE, OTHER, SELFPAY | PROVIDERS: PCP Internal Medicine; Visit Provider Dermatology | DX: L82.0 Inflamed seborrheic keratosis (principal); L57.8 Other skin changes due to chronic exposure to nonionizing radiation; L21.8 Other seborrheic dermatitis; Z08 Encounter for follow-up examination after completed treatment for malignant neoplasm; Z85.828 Personal history of other malignant neoplasm of skin; D48.5 Neoplasm of uncertain behavior of skin; L57.0 Actinic keratosis | CPT/HCPCS: 11102; 17000; 99214 ==

== ENCOUNTER 2024-03-22 07:43 | Oncology outpatient (recurring) (ONCR) | payer MEDICARE, OTHER, SELFPAY ==
[2024-03-22 07:54] VITALS: BP 160/75; PULSE 64; RESP 20; O2SAT 96
[2024-03-22] MEDS: diphenhydrAMINE 50 mg/mL SDV 1mL 25 MG IVP (08:30)
[2024-03-22] MEDS: acetaminophen 325 mg Tablet 650 MG PO (08:38)
[2024-03-22] MEDS: abatacept 1,000 MG in sodium chloride 0.9% (100 ml) 100 ML 200 MG IV (09:16)
[2024-03-22 09:56] VITALS: BP 125/67; PULSE 54; RESP 18; TEMP 36.7; O2SAT 96
== END 2024-04-14 23:59 | disposition home or self-care (01) ==
PROVIDERS: PCP Internal Medicine; Visit Provider Internal Medicine Rheumatology
DX: M06.042 Rheumatoid arthritis without rheumatoid factor, left hand (principal); M06.041 Rheumatoid arthritis without rheumatoid factor, right hand; Z79.899 Other long term (current) drug therapy
CPT/HCPCS: 96365; 96375; A4222; J0129; J1200

== ENCOUNTER 2024-04-07 13:40 | Outpatient (CLI) | payer MEDICARE, OTHER, SELFPAY ==
--- NOTE | 2024-04-07 13:47 | XR_ITS ---
WS: [id number] Chest 2 views, 04/07/2024 Clinical Data: COUGH Comparison: Portable chest, 11/17/2023 Findings: No nodules, masses or effusions are seen. The heart is normal. The pulmonary vascularity is not increased. No pneumonia or pneumothorax is seen. The aortic arch and descending thoracic aorta s how tortuosity. The thoracolumbar posterior fusion remains stable. The anterior cervical disc fusion and posterior lower cervical fusion remain in good position. XR/XR chest 2V* [id number] Impression: Atherosclerosis.
[2024-04-07 16:02] LABS: Adenovirus Not Detected (NOT DETECT); Chlamydia Pneumoniae Not Detected (NOT DETECT); Coronavirus 229E,HKU1,NL63,OC4 Not Detected (NOT DETECT); Human Metapneumovirus Not Detected (NOT DETECT); Human Rhinovirus/Enterovirus Not Detected (NOT DETECT); Influenza A Detected (NOT DETECT); Influenza A H1 Not Detected (NOT DETECT); Influenza A H1-2009 Detected (NOT DETECT); Influenza A H3 Not Detected (NOT DETECT); Influenza B Not Detected (NOT DETECT); Mycoplasma Pneumoniae Not Detected (NOT DETECT); Parainfluenza Virus Type 1 Not Detected (NOT DETECT); Parainfluenza Virus Type 2 Not Detected (NOT DETECT); Parainfluenza Virus Type 3 Not Detected (NOT DETECT); Parainfluenza Virus Type 4 Not Detected (NOT DETECT); Respiratory Syncytial Virus A Not Detected (NOT DETECT); Respiratory Syncytial Virus B Not Detected (NOT DETECT); SARS-COV-2 Not Detected (NOT DETECT)
== END 2024-04-07 13:41 | disposition home or self-care (01) ==
LOC: RAD 13:44
PROVIDERS: PCP Internal Medicine; Visit Provider Nurse Practitioner Family
DX: R05.8 Other specified cough (principal); Q25.46 Tortuous aortic arch; Z98.1 Arthrodesis status; I70.90 Unspecified atherosclerosis
CPT/HCPCS: 71046; 87486; 87581; 87633

== ENCOUNTER → 2024-04-20 13:51 | Outpatient (BNVA) | payer MEDICARE, OTHER, SELFPAY | PROVIDERS: PCP Internal Medicine; Visit Provider Dermatology | DX: L57.8 Other skin changes due to chronic exposure to nonionizing radiation (principal); Z08 Encounter for follow-up examination after completed treatment for malignant neoplasm; Z85.828 Personal history of other malignant neoplasm of skin; D48.5 Neoplasm of uncertain behavior of skin; L57.0 Actinic keratosis | CPT/HCPCS: 11102; 17000; 99213 ==

== ENCOUNTER 2024-05-05 07:43 | Oncology outpatient (recurring) (ONCR) | payer MEDICARE, OTHER, SELFPAY ==
[2024-05-05 08:30] LABS: Basophils % 0.3 %; Eosinophils % 0.7 %; Hematocrit 37.5 % (37-53); Lymphocytes # 0.9 10^3/uL (0.8-4.8); Lymphocytes % 15.9 %; Mean Corpuscular Hemoglobin 31.4 pg (27-33); Mean Corpuscular Volume 98.2 fl (82-101); Mean Platelet Volume 9.4 fL (7.4-10.4); Monocytes # 0.5 10^3/uL (0.2-0.9); Monocytes % 8.7 %; Neutrophils # 4.28 10^3/uL (1.8-7.7); Neutrophils % 73.4 %; Nucleated Red Blood Cells % 0 %; Platelet Count 151 10^3/cmm (157-399); Red Blood Count 3.82 10^6/uL (3.85-5.65); Red Cell Distribution Width 14.8 % (12.1-15.1); White Blood Count 5.84 10^3/uL (3.29-11.43)
[2024-05-05 08:50] LABS: Alanine Aminotransferase 21 U/L (0-41); Albumin Level 3.6 g/dL (3.5-5.2); Alkaline Phosphatase 67 U/L (40-130); Anion Gap 16.4 (5-19); Aspartate Amino Transferase 16 U/L (0-40); Blood Urea Nitrogen 19 mg/dL (8-23); Calcium 8.8 mg/dL (8.5-10.5); Carbon Dioxide 27 mmol/L (22-29); Chloride 103 mmol/L (98-107); Creatinine Clr Calc Pharmacy 65.8983; Ferritin 212 ng/mL (30-400); Globulin 2.7 g/dL (1.3-4.6); Glucose 105 mg/dL (65-115); Iron 67 ug/dL (59-158); Osmolality Calculated 299 mOsm/kg (285-295); Percent Saturation 28.2 % (20-50); Potassium 3.4 mmol/L (3.5-5.1); Sodium 143 mmol/L (136-145); Total Bilirubin 0.6 mg/dL (0.15-1.2); Total Iron Binding Capacity 237 mcg/dl; Total Protein 6.3 g/dL (6.6-8.7); Unsaturated Iron Binding 170 ug/dL (112-347)
== END 2024-05-12 23:59 | disposition home or self-care (01) ==
PROVIDERS: Nurse Practitioner Family; PCP Internal Medicine; Visit Provider Internal Medicine Rheumatology
DX: D64.9 Anemia, unspecified (principal); Z79.899 Other long term (current) drug therapy
CPT/HCPCS: 36415; 80053; 82728; 83540; 83550; 85025; 99214

== ENCOUNTER → 2024-05-16 10:12 | Outpatient (BNVA) | payer MEDICARE, OTHER, SELFPAY | PROVIDERS: PCP Internal Medicine; Visit Provider Dermatology | DX: C44.329 Squamous cell carcinoma of skin of other parts of face (principal); Z48.817 Encounter for surgical aftercare following surgery on the skin and subcutaneous tissue | CPT/HCPCS: 99213 ==

== ENCOUNTER 2024-06-08 09:24 | Oncology outpatient (recurring) (ONCR) | payer MEDICARE, OTHER, SELFPAY ==
[2024-05-17] MEDS: acetaminophen 325 mg Tablet 650 MG PO (10:45)
[2024-05-17] MEDS: diphenhydrAMINE 50 mg/mL SDV 1mL 25 MG IVP (10:51)
[2024-05-17] MEDS: sodium chloride 0.9% 250 ML 75 ML IV (10:52)
[2024-05-17] MEDS: abatacept 1,000 MG in sodium chloride 0.9% (100 ml) 100 ML 200 MG IV (11:31)
[2024-05-17 12:40] VITALS: BP 172/74; PULSE 60; RESP 18; TEMP 36.7
--- NOTE | 2024-06-08 10:38 | N.ONRAD NP_ITS ---
Radiation Oncology New Patient Visit Patient: Kojo Marinelli MR#: [id number] : 1945 Age: 78 Sex: Male Dictated by: Dr. 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 ID: pelvis, Energy: 15X, Dose/Fx (cGy): 180, #Fx: 25 / 25, Dose Correction (cGy): 0, Total Dose Delivered (cGy): 4,500, Start Date: 12/01/2004, End Date: 01/02/2005, Elapsed Days: 32 Course: Course1, Treatment Site: 6 field, Ref. ID: pelvis, Energy: 15X, Dose/Fx (cGy): 180, #Fx: 15 / 15, Dose Correction (cGy): 0, Total Dose Delivered (cGy): 2,700, Start Date: 01/05/2005, End Date: 01/23/2005, Elapsed Days: 18 Chief Complaint / History of Present Illness: Patient is an 78-year-old gentleman with a very complex and long medical history. He says that he was placed on an infusion for his rheumatoid arthritis about a year ago. In the last 6 months he has had significant skin cancers that have grown faster and, quicker. His most recent skin cancer on his right yarsanism he actually had surgery on 2 weeks ago and is now being referred for the skin cancer for postop treatment. He continues to have skin cancers popping up across his forehead and scalp. He is concerned that the infusion he gets for his rheumatoid arthritis has accelerated and worsened to skin cancers. Current Medications: Allergies: Paper tape, morphine, oxycodone, oxycontin, Flomax, Reglan, Medical History: Hypertension, hyperlipidemia, coronary artery disease, peripheral vascular disease, congestive heart failure, A-fib, COPD, sleep apnea, DJD, rheumatoid arthritis, peripheral neuropathy no history of collagen vascular disease. Surgical History: Bilateral knee replacement 2013, bilateral hip replacement 2004 15 back surgeries in the thoracic area. 3 surgeries on his cervical spine Family History: Noncontributory Social History: Retired, lives with his . The remainder of his family lives in [place] Current Complaints / Review of Systems: . Vital Signs: BMI - 54.879 kg/m2 (high), Height - 60 in, Weight - 281.0 lbs, Temperature - 98.2 f, Pulse - 65 /min, Respiration - 17 /min, O2 Sat - 96 %, Pain - 0, Fatigue - 0 and BP - 126/ 61 mm(hg)(/low). Physical Exam: General Patient is in no apparent distress. He is companied by his and his daughter HEENT: Normocephalic atraumatic. Pupils are equal, sclera clear, extraocular muscles intact. Skin: Warm and dry. He has a 3 x 3 cm scab/skin graft which is markedly hyperpigmented and dry on the right yarsanism. He also has a area just superior to this that has had a previous skin graft. He has multiple skin cancers across the scalp in the area where he has no hair. Pulmonary: Respiratory rate is regular nonlabored Cardiovascular: Irregular rate and rhythm Abdomen: Moderately protuberant android pattern Extremities: He has significant chronic skin changes across his hands and several joints in the knuckles that are swollen. Neurological: Alert and orient x 3. Hard of hearing. Walks with 2 canes. Psych: Affect appropriate for current situation Performance Status: 78 Pathology: Lab: Imaging: See HPI Impression: Squamous of carcinoma of the skin with possible acceleration of disease due to rheumatoid arthritis treatment Plan: We talked about his skin cancer. We reviewed how these lesions have popped up and how quickly they have come out. He also had 1 on his hand recently that grew quickly and was taken off surgically. We talked about the role of radiation and skin cancer. He can either treat patients postoperatively or definitively. He has a large area of active skin cancers across his scalp. We talked about how at this point we could do the whole scalp this exposed with the treatment and try and decrease the burden of skin cancers he has across his scalp. We talked about the risks and side effects both acute and long-term for this. We also talked about how since his arthritis medicine is accelerating and stimulating skin cancers perhaps we just need to treat the area where his arthritis bothers him most. We have recently begun to adopt the standards for treatment of rheumatoid and osteoarthritis with low-dose radiation. We discussed at length the areas that bother him most with a rheumatoid arthritis and is basically his hands. I reviewed with them the minimal dose of radiation required for the arthritic treatment. Is a total of 300 cGy. This is delivered over 6 treatments of 50 cGy apiece. He was very interested in doing this so they does not have to take his infusion anymore. This will help decrease the number of surgeries and further treatments he has to have down the line since his skin cancers will not be as stimulated. He was interested in well and doing the whole scalp treatment. Will have him return next week to begin the simulation process. Will start his hand treatment in the next week or 2. Once his graft is healed we can start the treatment on the whole scalp. Signed by: 06/08/2024 10:36:11 AM <<Signature on File>> Time spent on patient:45 CPT Code: * CPT Code: *
== END 2024-06-12 23:59 | disposition home or self-care (01) ==
PROVIDERS: PCP Internal Medicine; Visit Provider Radiology Radiation Oncology
DX: D64.9 Anemia, unspecified (principal); Z79.899 Other long term (current) drug therapy; M06.042 Rheumatoid arthritis without rheumatoid factor, left hand; M06.041 Rheumatoid arthritis without rheumatoid factor, right hand; I73.9 Peripheral vascular disease, unspecified; L60.8 Other nail disorders; L60.3 Nail dystrophy; E03.9 Hypothyroidism, unspecified; Z79.01 Long term (current) use of anticoagulants
CPT/HCPCS: 11721; 96365; 96375; 99205; A4222; J0129; J1200; J7050; J9999

== ENCOUNTER 2024-07-04 08:03 | Oncology outpatient (recurring) (ONCR) | payer MEDICARE, OTHER, SELFPAY ==
--- NOTE | 2024-06-20 09:58 | ONCRAD TMN_ITS ---
Radiation Oncology Weekly Treatment Management Patient: Kojo Marinelli MR#: [id number] : 1945 Attending Physician: Dr. Jose E Moseley Date of Service: 06/20/2024 Referring Physician(s) : Diagnosis: M06.9 - Rheumatoid arthritis, unspecified, Diagnosed 06/08/2024 (Active) C44.42 - Squamous cell carcinoma of skin of scalp and neck, Diagnosed 06/08/2024 (Active) Radiotherapy to date: Course: Scalp Hands 2024, Treatment Site: Rt [id number], Ref. ID: [id number], Energy: 9E, Dose/Fx (cGy): 300, #Fx: 4 / 15, Dose Correction (cGy): 0, Total Dose Delivered (cGy): 1,200, Start Date: 06/15/2024, Elapsed Days: 5 Course: Scalp Hands 2024, Treatment Site: Scalp PTV 2024, Ref. ID: [id number], Energy: 6X, Dose/Fx (cGy): 300, #Fx: 4 / 15, Dose Correction (cGy): 0, Total Dose Delivered (cGy): 1,200, Start Date: 06/15/2024, Elapsed Days: 5 Course: Scalp Hands 2024, Treatment Site: Lt hand 3Gy, Ref. ID: Lt [id number], Energy: 6X, Dose/Fx (cGy): 50, #Fx: 4 / 6, Dose Correction (cGy): 0, Total Dose Delivered (cGy): 200, Start Date: 06/15/2024, Elapsed Days: 5 Course: Scalp Hands 2024, Treatment Site: Rt hand 3Gy, Ref. ID: [id number], Energy: 6X, Dose/Fx (cGy): 50, #Fx: 4 / 6, Dose Correction (cGy): 0, Total Dose Delivered (cGy): 200, Start Date: 06/15/2024, Elapsed Days: 5 Reason for visit: The patient is being seen today as part of their regularly scheduled weekly on treatment visits to assess for acute toxicities from radiotherapy. Review of Systems: Rt mormonism pain at 6 on 10 scale . Using 1000 mg APAP TID with little effect. Cannot tolerate other meds. Using topical petroleum jelly. Pain present before treatment started and is unchanged. Feels that right mormonism lesions are a bit larger. Hand pain is better. He also uses topical diclofenac. Able to clse hands better Vital Signs: BMI - 54.84 kg/m2 (high), Height - 60 in, Weight - 280.8 lbs, Temperature - 97.9 f, Pulse - 60 /min, Respiration - 18 /min, O2 Sat - 96 %, Pain - 6, Fatigue - 0 and BP - 133/ 68 mm(hg). Physical Exam: Mild right scalp erythea Imaging: Radiation therapy imaging related to accurate target localization (i.e. KV, MV and CBCT) was reviewed. Appropriate changes, if any, were made to ensure treatment accuracy. Plan: Good tolerance of treatment. Reassured that temporary swelling may occur with treatment. He is also not interested in increasing APAP does and is satisfied with current pain management. Continue treatment as planned. Signed by: Dr. Jose E Moseley 06/20/2024 9:57:10 AM
--- NOTE | 2024-06-27 09:05 | ONCRAD TMN_ITS ---
Radiation Oncology Weekly Treatment Management Patient: Yves Bowens MR#: [id number] : 1945> Attending Physician: Willy Carrasco Date of Service: 06/27/2024 Referring Physician(s) : Diagnosis: M06.9 - Rheumatoid arthritis, unspecified, Diagnosed 06/08/2024 (Active) C44.42 - Squamous cell carcinoma of skin of scalp and neck, Diagnosed 06/08/2024 (Active) Radiotherapy to date: Course: Scalp Hands 2024, Treatment Site: Rt [id number], Ref. ID: [id number], Energy: 9E, Dose/Fx (cGy): 300, #Fx: , Dose Correction (cGy): 0, Total Dose Delivered (cGy): 2,700, Start Date: 06/15/2024, End Date: 06/27/2024, Elapsed Days: 12 Course: Scalp Hands 2024, Treatment Site: Scalp PTV 2024, Ref. ID: [email or web address], Energy: 6X, Dose/Fx (cGy): 300, #Fx: , Dose Correction (cGy): 0, Total Dose Delivered (cGy): 2,700, Start Date: 06/15/2024, End Date: 06/27/2024, Elapsed Days: 12 Course: Scalp Hands 2024, Treatment Site: Lt hand 3Gy, Ref. ID: Lt [id number], Energy: 6X, Dose/Fx (cGy): 50, #Fx: 6 / 6, Dose Correction (cGy): 0, Total Dose Delivered (cGy): 300, Start Date: 06/15/2024, End Date: 06/22/2024, Elapsed Days: 7 Course: Scalp Hands 2024, Treatment Site: Rt hand 3Gy, Ref. ID: Rt [id number], Energy: 6X, Dose/Fx (cGy): 50, #Fx: 6 / 6, Dose Correction (cGy): 0, Total Dose Delivered (cGy): 300, Start Date: 06/15/2024, End Date: 06/22/2024, Elapsed Days: 7 Reason for visit: The patient is being seen today as part of their regularly scheduled weekly on treatment visits to assess for acute toxicities from radiotherapy. Review of Systems: Unchanged Vital Signs: Performed on 06/27/2024 8:21 AM BMI - 54.294 kg/m2 (high), Height - 60 in, Weight - 278 lbs, Temperature - 98.4 f, Pulse - 70 /min, Respiration - 18 /min, O2 Sat - 96 %, Pain - 7, Fatigue - 0 and BP - 135/ 69 mm(hg). Physical Exam: Alert and oriented and answers questions appropriately. Appropriate crusting and erythema in the treatment portal Imaging: Radiation therapy imaging related to accurate target localization (i.e. KV, MV and CBCT) was reviewed. Appropriate changes, if any, were made to ensure treatment accuracy. Plan: Continue XRT Continue Aquaphor liberally to the treatment portal sites Signed by: Willy Carrasco 06/27/2024 9:03:14 AM
--- NOTE | 2024-07-04 09:47 | ONCRAD TMN_ITS ---
Radiation Oncology Weekly Treatment Management Patient: Kojo Marinelli MR#: [id number] : 1945 Attending Physician: Dr. Jose E Moseley Date of Service: 07/04/2024 Referring Physician(s) : Diagnosis: M06.9 - Rheumatoid arthritis, unspecified, Diagnosed 06/08/2024 (Active) C44.42 - Squamous cell carcinoma of skin of scalp and neck, Diagnosed 06/08/2024 (Active) Radiotherapy to date: Course: Scalp Hands 2024, Treatment Site: Rt [id number], Ref. ID: [id number], Energy: 9E, Dose/Fx (cGy): 300, #Fx: 14 / 15, Dose Correction (cGy): 0, Total Dose Delivered (cGy): 4,200, Start Date: 06/15/2024, Elapsed Days: 19 Course: Scalp Hands 2024, Treatment Site: Scalp PTV 2024, Ref. ID: [id number], Energy: 6X, Dose/Fx (cGy): 300, #Fx: 14 / 15, Dose Correction (cGy): 0, Total Dose Delivered (cGy): 4,200, Start Date: 06/15/2024, Elapsed Days: 19 Course: Scalp Hands 2024, Treatment Site: Lt hand 3Gy, Ref. ID: Lt [id number], Energy: 6X, Dose/Fx (cGy): 50, #Fx: 6 / 6, Dose Correction (cGy): 0, Total Dose Delivered (cGy): 300, Start Date: 06/15/2024, End Date: 06/22/2024, Elapsed Days: 7 Course: Scalp Hands 2024, Treatment Site: Rt hand 3Gy, Ref. ID: Rt [id number], Energy: 6X, Dose/Fx (cGy): 50, #Fx: 6 / 6, Dose Correction (cGy): 0, Total Dose Delivered (cGy): 300, Start Date: 06/15/2024, End Date: 06/22/2024, Elapsed Days: 7 Reason for visit: The patient is being seen today as part of their regularly scheduled weekly on treatment visits to assess for acute toxicities from radiotherapy. Review of Systems: Bad scalp burning pain 9 on 10 level. Using 1 gm APAP 3 x a day. Using topical moisturizer. Some nausea over last day Vital Signs: Performed on 07/04/2024 8:33 AM BMI - 52.692 kg/m2 (high), Height - 60 in, Weight - 269.8 lbs, Temperature - 98.9 f, Pulse - 71 /min, Respiration - 18 /min, O2 Sat - 96 %, Pain - 10, Fatigue - 0 and BP - 153/ 78 mm(hg)(high/). Physical Exam: brisk scalp erythema over central and right scalp. No desquamation. Nodular lesions right scalp are smaller. Imaging: Radiation therapy imaging related to accurate target localization (i.e. KV, MV and CBCT) was reviewed. Appropriate changes, if any, were made to ensure treatment accuracy. Plan: Continue treatment. Add 2% viscous of lidocaine and Zofran. Complete treatment tomorrow. Signed by: Dr. Jose E Moseley 07/04/2024 9:46:19 AM
== END 2024-07-04 15:09 | disposition home or self-care (01) ==
PROVIDERS: PCP Internal Medicine; Visit Provider Radiology Radiation Oncology
DX: D64.9 Anemia, unspecified (principal); Z79.899 Other long term (current) drug therapy; M06.042 Rheumatoid arthritis without rheumatoid factor, left hand; M06.041 Rheumatoid arthritis without rheumatoid factor, right hand; I73.9 Peripheral vascular disease, unspecified; L60.8 Other nail disorders; L60.3 Nail dystrophy; E03.9 Hypothyroidism, unspecified; Z79.01 Long term (current) use of anticoagulants; C44.42 Squamous cell carcinoma of skin of scalp and neck; C44.329 Squamous cell carcinoma of skin of other parts of face
CPT/HCPCS: 77300; 77301; 77321; 77334; 77336; 77338; 77386; 99024; 99214

== ENCOUNTER 2024-07-05 07:11 | Oncology outpatient (recurring) (ONCR) | payer MEDICARE, OTHER, SELFPAY ==
--- NOTE | 2024-07-05 09:34 | N.ONRD TS_ITS ---
Radiation Oncology Treatment Summary Patient: Kojo Marinelli MR#: [id number] : 1945 Age: 78 Sex: Male Dictated by: Dr. Jose E Moseley Date of Service: 07/05/2024 Referring Physician(s) : Diagnosis: M06.9 - Rheumatoid arthritis, unspecified, Diagnosed 06/08/2024 (Active) C44.42 - Squamous cell carcinoma of skin of scalp and neck, Diagnosed 06/08/2024 (Active) Radiotherapy to Date: Course: Course1, Treatment Site: 4field, Ref. ID: pelvis, Energy: 15X, Dose/Fx (cGy): 180, #Fx: 25 / 25, Dose Correction (cGy): 0, Total Dose Delivered (cGy): 4,500, Start Date: 12/01/2004, End Date: 01/02/2005, Elapsed Days: 32 Course: Course1, Treatment Site: 6 field, Ref. ID: pelvis, Energy: 15X, Dose/Fx (cGy): 180, #Fx: 15 / 15, Dose Correction (cGy): 0, Total Dose Delivered (cGy): 2,700, Start Date: 01/05/2005, End Date: 01/23/2005, Elapsed Days: 18 Course: Scalp Hands 2024, Treatment Site: Rt [id number], Ref. ID: [id number], Energy: 9E, Dose/Fx (cGy): 300, #Fx: 15 / 15, Dose Correction (cGy): 0, Total Dose Delivered (cGy): 4,500, Start Date: 06/15/2024, End Date: 07/05/2024, Elapsed Days: 20 Course: Scalp Hands 2024, Treatment Site: Scalp PTV 2024, Ref. ID: [email or web address], Energy: 6X, Dose/Fx (cGy): 300, #Fx: 15 / 15, Dose Correction (cGy): 0, Total Dose Delivered (cGy): 4,500, Start Date: 06/15/2024, End Date: 07/05/2024, Elapsed Days: 20 Course: Scalp Hands 2024, Treatment Site: Lt hand 3Gy, Ref. ID: Lt [id number], Energy: 6X, Dose/Fx (cGy): 50, #Fx: 6 / 6, Dose Correction (cGy): 0, Total Dose Delivered (cGy): 300, Start Date: 06/15/2024, End Date: 06/22/2024, Elapsed Days: 7 Course: Scalp Hands 2024, Treatment Site: Rt hand 3Gy, Ref. ID: Rt [id number], Energy: 6X, Dose/Fx (cGy): 50, #Fx: 6 / 6, Dose Correction (cGy): 0, Total Dose Delivered (cGy): 300, Start Date: 06/15/2024, End Date: 06/22/2024, Elapsed Days: 7 Clinical Summary: The patient tolerated RT well. He did develop brisk erythema over his central and right temporal scalp. Nodular lesions which had grown rapidly prior to treatment were shrinking. He had ongoing scalp pain which was not responsive to APAP. Other pain were not tolerated. . He had some nausea x 2 days at the end of treatment. Plan: End of treatment today. Zofran and topical 2% lidocaine was prescribed at the end of treatment. Continue on the above medication until the skin reaction resolves. Follow up in 2 weeks. Signed by: Dr. Jose E Moseley>07/05/2024 9:33:07 AM <<Signature on File>>
== END 2024-07-12 23:59 | disposition home or self-care (01) ==
LOC: ONCMED 07:11
PROVIDERS: PCP Internal Medicine; Visit Provider Radiology Radiation Oncology
DX: Z51.0 Encounter for antineoplastic radiation therapy (principal); C44.42 Squamous cell carcinoma of skin of scalp and neck; M06.042 Rheumatoid arthritis without rheumatoid factor, left hand; M06.041 Rheumatoid arthritis without rheumatoid factor, right hand
CPT/HCPCS: 77386; 99024

== ENCOUNTER → 2024-07-25 15:17 | Outpatient (BNVA) | payer MEDICARE, OTHER, SELFPAY | PROVIDERS: PCP Internal Medicine; Visit Provider Dermatology | DX: R59.0 Localized enlarged lymph nodes (principal); L57.8 Other skin changes due to chronic exposure to nonionizing radiation; Z92.3 Personal history of irradiation; Z08 Encounter for follow-up examination after completed treatment for malignant neoplasm; Z85.828 Personal history of other malignant neoplasm of skin; D48.5 Neoplasm of uncertain behavior of skin | CPT/HCPCS: 11102; 99214 ==

== ENCOUNTER → 2024-08-09 09:34 | Outpatient (BNVA) | payer MEDICARE, OTHER, SELFPAY | PROVIDERS: PCP Internal Medicine; Visit Provider Nurse Practitioner Family | DX: I11.0 Hypertensive heart disease with heart failure (principal); I50.32 Chronic diastolic (congestive) heart failure; I48.0 Paroxysmal atrial fibrillation; Z79.01 Long term (current) use of anticoagulants; E78.2 Mixed hyperlipidemia; I25.10 Atherosclerotic heart disease of native coronary artery without angina pectoris; I71.21 Aneurysm of the ascending aorta, without rupture | CPT/HCPCS: 99213 ==

== ENCOUNTER 2024-08-10 10:45 | Oncology outpatient (recurring) (ONCR) | payer MEDICARE, OTHER, SELFPAY ==
--- NOTE | 2024-07-13 14:09 | ONCRAD EPV_ITS ---
Radiation Oncology Established Patient Visit Patient: Yves Varma [id number] : 1945 Age: 78 Sex: Male Dictated by: Willy Carrasco Date of Service: 07/13/2024 Referring Physician(s) : Diagnosis: M06.9 - Rheumatoid arthritis, unspecified, Diagnosed 06/08/2024 (Active) C44.42 - Squamous cell carcinoma of skin of scalp and neck, Diagnosed 06/08/2024 (Active) Radiotherapy to Date: Course: Course1, Treatment Site: 4field, Ref. ID: pelvis, Energy: 15X, Dose/Fx (cGy): 180, #Fx: 25 / 25, Dose Correction (cGy): 0, Total Dose Delivered (cGy): 4,500, Start Date: 12/01/2004, End Date: 01/02/2005, Elapsed Days: 32 Course: Course1, Treatment Site: 6 field, Ref. ID: pelvis, Energy: 15X, Dose/Fx (cGy): 180, #Fx: 15 / 15, Dose Correction (cGy): 0, Total Dose Delivered (cGy): 2,700, Start Date: 01/05/2005, End Date: 01/23/2005, Elapsed Days: 18 Course: Scalp Hands 2024, Treatment Site: Rt [id number], Ref. ID: [id number], Energy: 9E, Dose/Fx (cGy): 300, #Fx: 15 / 15, Dose Correction (cGy): 0, Total Dose Delivered (cGy): 4,500, Start Date: 06/15/2024, End Date: 07/05/2024, Elapsed Days: 20 Course: Scalp Hands 2024, Treatment Site: Scalp PTV 2024, Ref. ID: [id number], Energy: 6X, Dose/Fx (cGy): 300, #Fx: 15 / 15, Dose Correction (cGy): 0, Total Dose Delivered (cGy): 4,500, Start Date: 06/15/2024, End Date: 07/05/2024, Elapsed Days: 20 Course: Scalp Hands 2024, Treatment Site: Lt hand 3Gy, Ref. ID: Lt [id number], Energy: 6X, Dose/Fx (cGy): 50, #Fx: 6 / 6, Dose Correction (cGy): 0, Total Dose Delivered (cGy): 300, Start Date: 06/15/2024, End Date: 06/22/2024, Elapsed Days: 7 Course: Scalp Hands 2024, Treatment Site: Rt hand 3Gy, Ref. ID: [id number] [id number], Energy: 6X, Dose/Fx (cGy): 50, #Fx: , Dose Correction (cGy): 0, Total Dose Delivered (cGy): 300, Start Date: 06/15/2024, End Date: 06/22/2024, Elapsed Days: 7 Current History: This is a pleasant 78-year-old male who is now 2 weeks from treatment of the right episcopalian and scalp areas. Patient has severe moist desquamation of both sites. He states it is very painful and even adding viscous lidocaine is too painful. Patient does not does not note any numbness tingling or signs of infection. Current Medications: Lidocaine HCl, ondansetron HCl. acetaminophen 1,000 mg PO BID albuterol sulfate 90 mcg/actuation 1 - 2 puffs inhalation Q4H PRN amiodarone (Pacerone) 200 mg PO DAILY apixaban (Eliquis) 5 mg PO BID@0900,2100 atorvastatin 40 mg PO BEDTIME [MARK BRACE As directed NS] bumetanide 2 mg PO BID carvedilol mg PO diclofenac sodium 1% 4 grams topical QID PRN diphenhydramine HCl (Allergy (diphenhydramine)) 25 mg PO DAILY hydralazine TAKE 1 TABLET BY MOUTH THREE TIMES DAILY isosorbide mononitrate ER 60 mg (2 x 30 mg) PO BEDTIME levothyroxine (Synthroid) 137 mcg PO QAM liothyronine 5 mcg PO BID magnesium L-lactate ER (Magtab) 84 mg PO BID 30 days [Modification to AFO Brace to the left As directed by [employer] and [place]] mupirocin 2% topical nitroglycerin (Nitrostat) 0.4 mg sublingual Q5M PRN omeprazole 40 mg PO QAM oxybutynin chloride ER 5 mg PO DAILY potassium chloride ER 20 mEq (2 x 10 mEq) PO DAILY prednisone 10 mg PO DAILY pregabalin 25 mg PO BID sennosides-docusate sodium 8.6-50 mg (Stool Softener-Laxative) 1 tab PO DAILY Allergies: adhesive tape Allergy tears skin off metoclopramide (From Reglan) Allergy Unknown morphine Allergy ALGY-Hives tamsulosin (From Flomax) Allergy ADR/ALGY-Hypotension zolpidem (From Ambien) AllergyUnknown hydrocodone Adverse Reaction Hypotension oxycodone Adverse Reaction Hypotension Current Complaints / Review of Systems: As above Vital Signs: Performed on 07/13/2024 1:25 PM BMI - 47.067 kg/m2 (high), Height - 60 in, Weight - 241 lbs, Temperature - 99 f, Pulse - 73 /min, Respiration - 18 /min, O2 Sat - 96 %, Pain - 10, Fatigue - 0 and BP - 125/ 71 mm(hg). Physical Exam: General: Alert and oriented x 3. No acute distress. HEENT: Normocephalic, atraumatic. Moist desquamation of the entire scalp with areas of mild bleeding in the right temporal area. This is very appropriate for 2 weeks after XRT to those areas as a skin cancer Extraocular Movements Intact: Pupils Equal, Round, Reactive to Light and Accommodation: Sclerae anicteric. Oral cavity is clear without lesions, masses or ulcers. NECK: Supple without supraclavicular or jugular lymphadenopathy. LUNGS: Clear to auscultation bilaterally without rales, rhonchi or wheeze. HEART: Regular rate and rhythm, normal S1 and S2 without murmur, gallop or rub. MUSCULOSKELETAL: No tenderness or percussion pain over the axial skeleton, scapulae or pelvis. ABDOMEN: Soft, nontender, nondistended without masses or organomegaly. Bowell sounds are present. EXTREMITIES: No peripheral edema is identified. Limited motor and sensory examination are grossly intact and symmetric bilaterally. NEUROLOGIC: Cranial nerves II ???XII are grossly intact. Normal sensation, strength 5/5 in all extremities, normal gait, no ataxia. Performance Status: KPS 70 Lab: None pending. Pathology: Primary, m06.9 - rheumatoid arthritis, unspecified, Diagnosed 06/08/2024 (active) and Primary, c44.42 - squamous cell carcinoma of skin of scalp and neck, Diagnosed 06/08/2024 (active) . Imaging: See HPI Impression: Severe moist desquamation of the above treated areas Reaction is appropriate for 2 weeks after completion of treatment 4500 cGy in 15 fractions. PLAN: Rx to [facility] #1 tramadol 50 mg, #30, 1 up to 3 times daily no refills #[address] that in the refrigerator and apply up to 4 times a day #3 Domeboro's solution to be refrigerated and applied up to 4 times a day. Use this prior to placing Silvadene on the areas of moist desquamation. RTC in 4 weeks or sooner if need be. NC as only 2 weeks after XRT. Signed by: 07/13/2024 2:07:42 PM <<Signature on File>> Time spent with patient: 20 mnutes CPT Code: CPT Code:
[2024-08-10 11:03] LABS: Basophils % 0.2 %; Eosinophils % 0.1 %; Hematocrit 36.3 % (37-53); Lymphocytes # 0.4 10^3/uL (0.8-4.8); Lymphocytes % 4.3 %; Mean Corpuscular Hemoglobin 31.2 pg (27-33); Mean Corpuscular Volume 97.6 fl (82-101); Mean Platelet Volume 8.9 fL (7.4-10.4); Monocytes # 0.5 10^3/uL (0.2-0.9); Monocytes % 6.4 %; Neutrophils # 7.37 10^3/uL (1.8-7.7); Neutrophils % 88.5 %; Nucleated Red Blood Cells % 0 %; Platelet Count 151 10^3/cmm (157-399); Red Blood Count 3.72 10^6/uL (3.85-5.65); Red Cell Distribution Width 14.6 % (12.1-15.1); Reticulocyte % 1.6 % (0.5-2.0); White Blood Count 8.33 10^3/uL (3.29-11.43)
[2024-08-10 11:30] LABS: Alanine Aminotransferase 16 U/L (0-41); Albumin Level 3.7 g/dL (3.5-5.2); Alkaline Phosphatase 66 U/L (40-130); Anion Gap 17.8 (5-19); Aspartate Amino Transferase 16 U/L (0-40); Blood Urea Nitrogen 11 mg/dL (8-23); Calcium 8.7 mg/dL (8.5-10.5); Carbon Dioxide 23 mmol/L (22-29); Chloride 103 mmol/L (98-107); Ferritin 133 ng/mL (30-400); Globulin 2.7 g/dL (1.3-4.6); Glucose 127 mg/dL (65-115); Iron 56 ug/dL (59-158); Lactate Dehydrogenase 176 U/L (135-225); Osmolality Calculated 291 mOsm/kg (285-295); Percent Saturation 22.6 % (20-50); Potassium 3.8 mmol/L (3.5-5.1); Sodium 140 mmol/L (136-145); Total Bilirubin 0.5 mg/dL (0.15-1.2); Total Iron Binding Capacity 247 mcg/dl; Total Protein 6.4 g/dL (6.6-8.7); Unsaturated Iron Binding 191 ug/dL (112-347)
[2024-08-10 11:44] LABS: Vitamin B12 203 pg/mL (232-1245)
[2024-08-10 11:45] LABS: Folate Level 7.8 ng/mL (4.5-32.2)
== END 2024-08-12 23:59 | disposition home or self-care (01) ==
PROVIDERS: PCP Internal Medicine; Visit Provider Internal Medicine
DX: Z53.9 Procedure and treatment not carried out, unspecified reason; C44.42 Squamous cell carcinoma of skin of scalp and neck; M06.042 Rheumatoid arthritis without rheumatoid factor, left hand; M06.041 Rheumatoid arthritis without rheumatoid factor, right hand; D64.9 Anemia, unspecified; Z85.46 Personal history of malignant neoplasm of prostate; Z92.3 Personal history of irradiation; Z92.25 Personal history of immunosuppression therapy; Z79.899 Other long term (current) drug therapy
CPT/HCPCS: 36415; 80053; 82607; 82728; 82746; 83010; 83540; 83550; 83615; 85025; 85045; 99024; 99214

== ENCOUNTER 2024-08-14 07:53 | Outpatient (CLI) | payer MEDICARE, OTHER, SELFPAY ==
--- NOTE | 2024-08-14 07:58 | CT_ITS ---
WS: [id number] CT CHEST, ABDOMEN, AND PELVIS TECHNIQUE: Contrast-enhanced CT of the chest, abdomen, and pelvis with coronal and sagittal reformatted images. CLINICAL INFORMATION: R INFERIOR LATERAL NECK/ENLARGED LYMPH NODES COMPARISON: CTA 11/17/2023. CT abdomen pelvis 2021 DLP: 1433.[address] scans at [facility] use at least one of these dose optimization techniques: automated exposure control; mA and/or kV adjustment per patient size (includes targeted exams where dose is matched to clinical indication); or iterative reconstruction. CT CHEST: Lungs are well aerated. No suspicious pulmonary parenchymal abnormalities. Slight bibasilar atelectasis. Calcified granuloma LEFT lower lobe. Subcutaneous nodule in the lower RIGHT anterior chest measuring 7 mm likely a small sebaceous cyst. This is stable since 04/01/2023 Normal caliber thoracic aorta. Aortic calcification. No mediastinal or hilar lymphadenopathy. No axillary lymphadenopathy. Extensive postoperative changes cervical thoracic and lumbar spine with osteopenia. CT ABDOMEN AND PELVIS: Extensive postoperative changes thoracolumbar spine extending into the sacrum. Normal liver. Prior cholecystectomy. Normal spleen. Pancreas appears normal. Splenic artery calcification. LEFT renal cyst. Adrenal glands are normal. Tiny esophageal hiatal hernia. Normal caliber abdominal aorta. Sigmoid diverticulosis. LEFT renal cyst measures 5.1 cm. Smaller RIGHT renal cyst. No lymphadenopathy in the abdomen or pelvis. Penile pump and prosthesis. CT/CT chest abdpel w/*[id number] IMPRESSION: 1. No evidence of metastatic disease in the chest abdomen or pelvis. 2. No lymphadenopathy. 3. Small subcutaneous nodule RIGHT anterior lower chest measuring 6 mm likely a sebaceous cyst. 4. Prior cholecystectomy. 5. Extensive spinal fusion hardware with bilateral THAs. This degrades some im ages with beam hardening artifact.
--- NOTE | 2024-08-14 08:39 | CT_ITS ---
WS: [id number] CT HEAD TECHNIQUE: Noncontrast and contrast-enhanced CT of the head. CLINICAL INFORMATION: RIGHT INFERIOR LATERAL NECK COMPARISON: CT 2023 DLP: 995.[address] scans at [facility] use at least one of these dose optimization techniques: automated exposure control; mA and/or kV adjustment per patient size (includes targeted exams where dose is matched to clinical indication); or iterative reconstruction. FINDINGS: No evidence of enhancing intracranial metastatic disease. Mild small vessel changes. Mild parenchymal volume loss. Opacification LEFT mastoid air cells and middle ear. RIGHT mastoid air cells are well aerated. Small retention cyst or polyps RIGHT maxillary sinus partially visualized. Normal posterior nasopharynx. Vascular calcification. Enhancing scalp lesions overlying the RIGHT lateral frontal and temporal calvarium. CT/CT head wo/w con [id number] IMPRESSION: 1. No evidence of intracranial hemorrhage or mass effect. 2. No enhancing intracranial metastatic disease. 3. Enhancing RIGHT scalp lesions compatible with known skin cancer 4. Opacification LEFT middle ear and LEFT mastoid air cells.
--- NOTE | 2024-08-14 08:39 | CT_ITS ---
WS: [id number] CT NECK TECHNIQUE: Contrast-enhanced CT of the neck with coronal and sagittal reformatted images. CLINICAL INFORMATION: RIGHT INFERIOR LATERAL NECK COMPARISON: None. DLP: 264.[address] scans at [facility] use at least one of these dose optimization techniques: automated exposure control; mA and/or kV adjustment per patient size (includes targeted exams where dose is matched to clinical indication); or iterative reconstruction. FINDINGS: Extensive ACDF cervical spine with posterior fusion hardware extending into the upper thoracic spine. Beam-hardening artifact degrades images. Osteopenia. Opacification LEFT mastoid air cells and middle ear. RIGHT mastoid air cells are well aerated. Small retention cyst or polyps RIGHT maxillary sinus. Normal posterior nasopharynx. Normal parapharyngeal fat. Peripherally enhancing nodule or lymph node in the tail of the RIGHT parotid gland suspicious for metastatic disease measuring 15 mm. Additional 5 mm enhancing nodule or lymph node in the anterior RIGHT parotid also suspicious LEFT parotid gland is normal. Normal submandibular glands. Retropharyngeal course of the RIGHT greater than LEFT cervical ICA. No evidence of supraglottic or glottic mass. Normal subglottic airway. Lung apices are well aerated. Aortic calcification. Carotid bulb calcification. Enhancing skin nodules along the RIGHT inferior facial soft tissues. CT/CT neck w con* [id number] IMPRESSION: 1. Peripherally enhancing lesion in the tail RIGHT parotid gland suspicious fo r metastatic disease or metastatic lymph node measuring 15 mm with central necr osis. 2. Additional smaller enhancing lymph node in the anterior RIGHT parotid also suspicious measuring 5 mm 3. RIGHT facial skin nodules compatible with known skin carcinoma. 4. No cervical lymphadenopathy. 5. LEFT mastoid effusion. Opacification LEFT middle ear. 6. Extensive anterior and posterior cervical fusion degrades some images
[2024-08-14] MEDS: iohexol 350 mg/mL 500 mL Btl (per mL) IV ×2 (09:34)
[2024-08-14] MEDS: iohexol 350 mg/mL 500 mL Btl (per mL) PO (09:34)
== END 2024-08-14 07:54 | disposition home or self-care (01) ==
PROVIDERS: PCP Internal Medicine; Visit Provider Dermatology
DX: R59.0 Localized enlarged lymph nodes (principal); R93.89 Abnormal findings on diagnostic imaging of other specified body structures; H74.8X2 Other specified disorders of left middle ear and mastoid; Z98.1 Arthrodesis status; M85.80 Other specified disorders of bone density and structure, unspecified site; J34.89 Other specified disorders of nose and nasal sinuses; I70.0 Atherosclerosis of aorta; I65.23 Occlusion and stenosis of bilateral carotid arteries; R93.0 Abnormal findings on diagnostic imaging of skull and head, not elsewhere classified; I67.2 Cerebral atherosclerosis; Z90.49 Acquired absence of other specified parts of digestive tract; Z98.890 Other specified postprocedural states; Z96.643 Presence of artificial hip joint, bilateral; I70.8 Atherosclerosis of other arteries; N28.1 Cyst of kidney, acquired; K57.30 Diverticulosis of large intestine without perforation or abscess without bleeding; Z96.89 Presence of other specified functional implants; Z95.828 Presence of other vascular implants and grafts
CPT/HCPCS: 70470; 70491; 71260; 74177; 99204

== ENCOUNTER → 2024-08-16 06:58 | Day surgery (SDC) | payer MEDICARE, OTHER, SELFPAY ==
[2024-08-16] VITALS (8 sets, daily range): BP systolic 113–167; BP diastolic 62–112; PULSE 60–78; RESP 16–20; TEMP 36.6–37.1; O2SAT 91–98; BMI 36.2
--- NOTE | 2024-08-16 07:05 | SC_ITS ---
WS: [id number] C-arm FL for CVA [id number] REASON FOR EXAM: Port-A-Cath placement FINDINGS: Chemotherapy infusion port overlying the right chest. Infusion catheter from right IJ approach into the distal SVC. No catheter kink. SC/C-arm FL for CVA [id number] IMPRESSION: Right chest chemotherapy infusion port with right IJ infusion catheter without abnormality.
--- NOTE | 2024-08-16 07:27 | ANES.PREANE2 ---
Pre-Anesthetic Assessment Height/Weight: Height 5 ft 11 in Weight 260 lb Temp Pulse Resp BP Pulse Ox O2 Del Method 98.8 F 78 18 167/112 96 Room Air 08/16/24 07:22 08/16/24 07:22 08/16/24 07:22 08/16/24 07:22 08/16/24 07:22 08/16/24 07:22 Preop Diagnosis: skin cancer Operation Date: 08/16/24 11:20 Proposed Procedures p Portacath Placement 90225, Z95.828(Not Applicable) - Yash Stark MD Was Beta Ángela taken within 24 hours: N/A Was Clonidine taken within 24 hours: N/A Social No alcohol and No tobacco Exam alert, oriented x 3, clear to auscultation bilaterally and regular rate & rhythm Airway Cervical ROM: Other (limited ROM and neck extension due to spinal fusion) Mallampati: Class II Comments: Comments: edentulous Anesthetic Plan ASA status: 4 Anesthesia: MAC Other: No prior issues with anesthesia NPO since yesterday evening Patient has progressive squamous cell carcinoma. History of rheumatoid arthritis Hypertension on hydralazine and carvedilol Hypothyroidism on Synthroid CAD history, follows with cardiology. Recent visit 08/09/2024. Was told to follow-up in 6 months History of A-fib FUAD , on bipap nightly Labs 08/10/2024 reviewed and acceptable for procedure today Plan for MAC anesthesia Medications/Allergies Home Medications ?Medication ?Instructions ?Recorded ?Confirmed ?Last Taken ?Type acetaminophen 500 mg capsule 1,000 mg PO BID 02/06/20 08/15/24 08/13/24 History MARK BRACE #1 ea 08/01/20 08/14/24 Unknown Rx Modification to AFO Brace to the #1 ea 02/02/22 08/14/24 Unknown Rx left levothyroxine 137 mcg tablet 137 mcg PO QAM 10/14/22 08/15/24 08/13/24 History (Synthroid) apixaban 5 mg tablet (Eliquis) 5 mg PO BID@0900,2100 #60 tabs 11/12/22 08/15/24 08/13/24 Rx magnesium L-lactate 84 mg 84 mg PO BID 30 days #60 tabs 11/12/22 08/15/24 08/13/24 Rx tablet,extended release (Magtab) albuterol sulfate 90 mcg/actuation 1 - 2 puff inhalation Q4H PRN 12/22/22 08/15/24 Unknown History aerosol inhaler Wheezing nitroglycerin 0.4 mg sublingual 0.4 mg sublingual Q5M PRN Chest 12/22/22 08/15/24 02/17/23 History tablet (Nitrostat) Pain amiodarone 200 mg tablet (Pacerone) 200 mg PO DAILY #30 tabs 02/19/23 08/15/24 08/13/24 Rx liothyronine 5 mcg tablet 5 mcg PO BID 04/01/23 08/15/24 08/13/24 History sennosides 8.6 mg-docusate sodium 1 tab PO DAILY #30 tabs 04/06/23 08/15/24 08/13/24 Rx 50 mg tablet (Stool Softener-Laxative) atorvastatin 40 mg tablet 40 mg PO BEDTIME #90 tabs 08/10/23 08/15/24 08/13/24 Rx diphenhydramine HCl 25 mg capsule 25 mg PO DAILY 08/16/23 08/15/24 08/13/24 History (Allergy (diphenhydramine)) oxybutynin chloride 5 mg 5 mg PO DAILY 10/22/23 08/15/24 08/13/24 History tablet,extended release 24 hr bumetanide 2 mg tablet 2 mg PO BID 11/30/23 08/15/24 08/13/24 History diclofenac sodium 1 % topical gel 4 g topical QID PRN Pain #100 grams 12/23/23 08/15/24 Unknown Rx pregabalin 25 mg capsule 25 mg PO BID #180 caps 12/23/23 08/15/24 08/13/24 Rx Held on 06/22/24. Instructions: Doctor's Order isosorbide mononitrate 30 mg 60 mg (2 x 30 mg) PO BEDTIME #180 01/28/24 08/15/24 08/13/24 Rx tablet,extended release 24 hr tabs carvedilol 12.5 mg tablet 12.5 mg PO DAILY 05/05/24 08/15/24 08/13/24 History mupirocin 2 % topical ointment 1 applic topical DIRECTED 05/05/24 08/15/24 Unknown History potassium chloride 10 mEq 10 meq PO DAILY #30 tabs 05/05/24 08/15/24 08/13/24 Rx tablet,extended release omeprazole 40 mg capsule,delayed 40 mg PO QAM #90 caps 06/22/24 08/15/24 08/13/24 Rx release prednisone 10 mg tablet 10 mg PO DAILY #90 tabs 06/22/24 08/15/24 08/13/24 Rx 2% viscous of lidocaine 5 ml topical QID PRN topical 07/04/24 08/15/24 Unknown Rx burning pain 2 weeks #500 mL lidocaine 3 % topical cream 1 applic topical QID PRN pain 07/04/24 08/15/24 Unknown Rx #28.5 grams ondansetron HCl 4 mg tablet 4 mg PO Q6H PRN nausea and 07/04/24 08/15/24 Unknown Rx vomiting #30 tabs silver sulfadiazine 1 % topical 1 applic topical BID #400 grams 07/13/24 08/15/24 Unknown Rx cream (Silvadene) tramadol 50 mg tablet 50 mg PO BID PRN pain #30 tabs 07/13/24 08/15/24 08/14/24 Rx hydralazine 50 mg tablet 50 mg PO DAILY 08/15/24 08/15/24 08/13/24 History Allergies Allergy/AdvReac Type Severity Reaction Status Date / Time adhesive tape Allergy tears skin Verified 08/16/24 07:21 off metoclopramide (From Reglan) Allergy Unknown Verified 08/16/24 07:21 morphine Allergy ALGY-Hives Verified 08/16/24 07:21 tamsulosin (From Flomax) Allergy ADR/ALGY-Hy Verified 08/16/24 07:21 potension zolpidem (From Ambien) Allergy Unknown Verified 08/16/24 07:21 hydrocodone AdvReac Mild Hypotension Verified 08/16/24 07:21 oxycodone AdvReac Mild Hypotension Verified 08/16/24 07:21 [facility] Anesthesia Medical History ADAMS (dyspnea on exertion) Atrial fibrillation Ascending aortic aneurysm Patient had a CT of the chest on 07/14/2023. The ascending aorta was found to be 4.0 cm in diameter. Essentially unchanged CHF (congestive heart failure), NYHA class III EF 10/2022 43% on stress test, 50% on echo HTN (hypertension) Other iron deficiency anemias Anemia High risk medication use prednisone and leflunomide 12/2022 Peripheral arterial disease Chronic anticoagulation eliquis Unstable angina CAD (coronary artery disease) Seroma, postoperative Spinal stenosis, thoracic Degenerative disc disease, thoracic History of prostate cancer Urgency incontinence Renal cyst Acquired calcaneovarus deformity of both feet Lumbar stenosis with neurogenic claudication Orthostatic hypotension Venous insufficiency of both lower extremities Acute blood loss as cause of postoperative anemia Failed back surgical syndrome DDD (degenerative disc disease), lumbar Chronic back pain History of TIA (transient ischemic attack) Radiation cystitis Carotid artery disease Hx of cataract Closed fracture of right patella COVID-19 2020 Metatarsus adductus Osteoarthritis, generalized Seronegative rheumatoid arthritis Positive CORBY (antinuclear antibody) EDUARDO was negative in 2013 Gastroparesis GERD (gastroesophageal reflux disease) Cervical postlaminectomy syndrome FUAD (obstructive sleep apnea) Hyperlipidemia Hypothyroid COPD (chronic obstructive pulmonary disease) H/O malignant neoplasm of skin Surgical History Status post revision of total replacement of right knee History of total bilateral knee replacement (TKR) Hx of excision of epidermal inclusion cyst Hx of excision of mass 04/12/23 Dr Fitzgerald- Elliptical excision of skin and subcutaneous back mass S/P laminectomy with spinal fusion S/P spinal fusion 02/2021 - T9-S1 Dr Delarosa History of penile implant Status post spinal arthrodesis S/P lumbar fusion History of cardiac cath ~2012 nonobstructive 10/2022 stress test EF 43 %, small areas prior infarcts RCA and LAD territories History of hip surgery RIGHT 04/11/19 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 History of total right hip arthroplasty History of total left hip arthroplasty History of abdominal aortic aneurysm (AAA) repair History of tonsillectomy and adenoidectomy Hx of appendectomy History of back surgery multiple procedures (>10) H/O neck surgery x 2 Hx of cholecystectomy H/O colonoscopy 2011 H/O esophagogastroduodenoscopy 2011 Family History Mother , Age 81 Bleeding disorder Clotting disorder CAD (coronary artery disease) 60s Cancer Stroke Father , Age 94 CAD (coronary artery disease) 80 Dementia Daughter Chronic kidney disease (CKD) Brother CAD (coronary artery disease) [place] Cancer Denies family history of Diabetes Suicide Anesthesia complication Lung disease Social History Smoking and tobacco/nicotine status: never used tobacco/nicotine Alcohol intake: never Substance/Drug Use: never Household members: spouse Marital status: Current occupational status: retired Special danny needs: No Agree to transfusion: Yes Data Anesthesia Cardiac Studies: Echocardiogram 02/17/23 Echocardiogram Limited Views 04/02/23 Echocardiogram Ultrasound 07/03/20 Sestamibi Stress Test (Cardiology) 11/09/22
[2024-08-16] MEDS: fentaNYL 50 mcg/mL INJ 2mL IVP (07:44)
--- NOTE | 2024-08-16 08:06 | W.PM.OPSUD ---
Surgery/Procedure H&P Update DATE OF PROCEDURE: August 16, 2024 DATE H&P PERFORMED: 08/14/24 H&P UPDATE INFORMATION: I have reviewed H&P completed within last 30 days, I have examined patient prior to procedure and No changes to prior documentation PREOP DIAGNOSIS: skin cancer PLANNED PROCEDURE: Operation Date: 08/16/24 11:20 Proposed Procedures p Portacath Placement 83792, [id number](Not Applicable) - Yash Stark MD
[2024-08-16] MEDS: sodium chloride 0.9% 1,000 ML 30 ML IV (08:10)
[2024-08-16] MEDS: ceFAZolin 2,000 mg SDV 2000 MG IVP (08:25)
[2024-08-16] MEDS: BUPivacaine 0.25% INJ 30 mL INJECTION (08:45)
[2024-08-16] MEDS: heparin, porcine 1,000 unit/mL INJ 10 mL 10000 UNIT IRRIGATION (08:45)
[2024-08-16] MEDS: lidocaine-epi 1% 20 mL INJ INJECTION (08:45)
--- NOTE | 2024-08-16 09:04 | PM.OP ---
Operative Report Date of procedure: August 16, 2024 Pre-op diagnosis: Squamous cell carcinoma Post-op diagnosis: same Post-op diagnosis: Squamous cell carcinoma Post-op findings: Tip of catheter at atriocaval junction confirmed with intraoperative fluoroscopy Procedure done: Port-A-Cath placement. Intraoperative fluoroscopy. Implants: Port-A-Cath Specimens removed/disposition: N/A Pathology: none sent Surgeon: Yash Stark MD Behavioral Health Worker: N/A Anesthesia: MAC Estimated blood loss (mL): 10 Complications: N/A Findings: Tip of catheter at atriocaval junction confirmed with intraoperative fluoroscopy. Condition: stable Disposition: same day Brief History: 78-year-old male who presents with schema cell carcinoma. Discussed risk and benefits and patient agreed to proceed with Port-A-Cath placement. Procedure: Patient was brought into the operating room and a timeout was carried out. Procedure was done under MAC. Patient was placed supine with the arms tucked and in Trendelenburg. Patient was prepped and draped in the usual sterile fashion. Using ultrasound guidance the right internal jugular vein was accessed. A guidewire was then placed down to the atriocaval junction using fluoroscopy. The finder needle was removed and the guidewire was secured. I then turned my attention to creating a pocket over the right chest. Make sure to locally infiltrated using plain lidocaine and bupivacaine at the site of the pocket and throughout the tunnel site. I confirmed adequate hemostasis at the pocket. I then proceeded to place the port that was already preassembled and flushed with heparinized saline and the chest pocket. I tunneled the catheter from the chest to the neck at the site where I accessed the internal jugular vein. I measured and adjusted the length of the catheter so it would reach the atrial caval junction. At this point, I used a dilator to dilate the tract into the internal jugular vein using fluoroscopy. I removed the guidewire and proceeded to thread the central venous catheter through the introducer. In the process, I removed the sheath as a completely pushed the catheter into the internal jugular vein. I then confirmed adequate placement of the catheter by performing intraoperative interpretation of fluoroscopy. The tip of the catheter was confirmed to be placed in the atriocaval junction. There were no kinks noted throughout the trajectory of the catheter. I then proceeded to test the port and was satisfied with its functionality. I proceeded to flushed the catheter without any issues. I then hep-locked the port. Skin was closed using deep dermal 3-0 Vicryl, subcuticular 4-0 Monocryl, and Dermabond. Patient was then transferred to PACU without any complications.
[2024-08-16] MEDS: TRAMadol 50 mg Tablet PO (09:49)
--- NOTE | 2024-08-16 10:10 | ANE.PACU2 ---
Inpatient post-anesthesia follow up: Airway intact: Yes Vital signs: Temperature 97.8 F Pulse Rate 64 Respiratory Rate 18 Blood Pressure 156/75 Pulse Oximetry 97 Oxygen Delivery Me thod Room Air Oxygen Flow Rate 10 Fraction of Inspir ed Oxygen Hydration adequate: Yes Nausea and vomiting: No Pain level: 2 Mental status: Baseline
== END | disposition home or self-care (01) ==
PROVIDERS: PCP Internal Medicine; Visit Provider Student in an Organized Health Care Education/Training Program
PROC: (CPT 36561; principal; 2024-08-16 11:10)
DX: C44.92 Squamous cell carcinoma of skin, unspecified (principal); I25.10 Atherosclerotic heart disease of native coronary artery without angina pectoris; M15.9 Polyosteoarthritis, unspecified; M06.00 Rheumatoid arthritis without rheumatoid factor, unspecified site; I48.91 Unspecified atrial fibrillation; G47.33 Obstructive sleep apnea (adult) (pediatric); J44.9 Chronic obstructive pulmonary disease, unspecified; K21.9 Gastro-esophageal reflux disease without esophagitis; I11.0 Hypertensive heart disease with heart failure; I50.9 Heart failure, unspecified; Z86.73 Personal history of transient ischemic attack (TIA), and cerebral infarction without residual deficits; Z85.46 Personal history of malignant neoplasm of prostate; Z98.1 Arthrodesis status; Z96.653 Presence of artificial knee joint, bilateral; Z96.643 Presence of artificial hip joint, bilateral; Z79.899 Other long term (current) drug therapy; Z79.01 Long term (current) use of anticoagulants; Z79.890 Hormone replacement therapy; Z91.09 Other allergy status, other than to drugs and biological substances; Z88.8 Allergy status to other drugs, medicaments and biological substances; Z88.5 Allergy status to narcotic agent
CPT/HCPCS: 36561; 76000; 77001; C1788; J0690; J1644; J2371; J2704; J3010; J3490; J7030; J9999

== ENCOUNTER 2024-08-17 11:22 | Oncology outpatient (recurring) (ONCR) | payer MEDICARE, OTHER, SELFPAY ==
[2024-08-17 11:45] LABS: Basophils % 0.6 %; Eosinophils # 0.1 10^3/uL (0.0-0.8); Eosinophils % 0.8 %; Hematocrit 36.4 % (37-53); Lymphocytes # 0.7 10^3/uL (0.8-4.8); Lymphocytes % 9.1 %; Mean Corpuscular HGB Conc 31.6 g/dL (30-55); Mean Corpuscular Hemoglobin 30.6 pg (27-33); Mean Corpuscular Volume 96.8 fl (82-101); Mean Platelet Volume 9.2 fL (7.4-10.4); Monocytes # 0.7 10^3/uL (0.2-0.9); Monocytes % 9.3 %; Neutrophils # 5.68 10^3/uL (1.8-7.7); Neutrophils % 79.8 %; Nucleated Red Blood Cells % 0 %; Platelet Count 163 10^3/cmm (157-399); Red Blood Count 3.76 10^6/uL (3.85-5.65); Red Cell Distribution Width 14.6 % (12.1-15.1); White Blood Count 7.12 10^3/uL (3.29-11.43)
[2024-08-17 12:07] LABS: Alanine Aminotransferase 16 U/L (0-41); Albumin Level 3.7 g/dL (3.5-5.2); Alkaline Phosphatase 70 U/L (40-130); Anion Gap 17.5 (5-19); Aspartate Amino Transferase 17 U/L (0-40); Blood Urea Nitrogen 8 mg/dL (8-23); Carbon Dioxide 22 mmol/L (22-29); Chloride 102 mmol/L (98-107); Ferritin 192 ng/mL (30-400); Globulin 2.9 g/dL (1.3-4.6); Glucose 122 mg/dL (65-115); Iron 57 ug/dL (59-158); Osmolality Calculated 286 mOsm/kg (285-295); Percent Saturation 23.9 % (20-50); Potassium 3.5 mmol/L (3.5-5.1); Sodium 138 mmol/L (136-145); Total Bilirubin 0.7 mg/dL (0.15-1.2); Total Iron Binding Capacity 238 mcg/dl; Total Protein 6.6 g/dL (6.6-8.7); Unsaturated Iron Binding 181 ug/dL (112-347)
[2024-08-17] MEDS: ondansetron 4 MG Tablet 8 MG PO (14:01)
[2024-08-17] MEDS: cemiplimab-rwlc 350 MG in sodium chloride 0.9% 250 ML 500 MG IV (14:36)
[2024-08-17 15:43] VITALS: BP 169/75; PULSE 70; RESP 17; TEMP 36.8; O2SAT 94
== END 2024-08-17 23:59 | disposition home or self-care (01) ==
PROVIDERS: Nurse Practitioner Family; PCP Internal Medicine; Visit Provider Internal Medicine
DX: Z51.11 Encounter for antineoplastic chemotherapy (principal); C44.42 Squamous cell carcinoma of skin of scalp and neck; D64.9 Anemia, unspecified; R03.0 Elevated blood-pressure reading, without diagnosis of hypertension; Z79.899 Other long term (current) drug therapy; Z92.3 Personal history of irradiation; M06.9 Rheumatoid arthritis, unspecified
CPT/HCPCS: 80053; 82728; 83540; 83550; 85025; 96413; 99215; A4222; J7050; J9119; Q0162

== ENCOUNTER → 2024-08-21 11:16 | Outpatient (BNVA) | payer MEDICARE, OTHER, SELFPAY | PROVIDERS: PCP Internal Medicine; Visit Provider Dermatology | DX: C44.329 Squamous cell carcinoma of skin of other parts of face (principal); L57.8 Other skin changes due to chronic exposure to nonionizing radiation; Z92.3 Personal history of irradiation; Z08 Encounter for follow-up examination after completed treatment for malignant neoplasm; Z85.828 Personal history of other malignant neoplasm of skin | CPT/HCPCS: 99214 ==

== ENCOUNTER → 2024-08-23 14:29 | Outpatient (BNVA) | payer MEDICARE, OTHER, SELFPAY | PROVIDERS: PCP Internal Medicine; Visit Provider Podiatrist Foot & Ankle Surgery | DX: I73.9 Peripheral vascular disease, unspecified (principal); L60.3 Nail dystrophy; L60.8 Other nail disorders; E03.9 Hypothyroidism, unspecified; Z79.01 Long term (current) use of anticoagulants | CPT/HCPCS: 11721 ==

== ENCOUNTER → 2024-08-28 13:07 | Outpatient (BNVA) | payer MEDICARE, OTHER, SELFPAY | PROVIDERS: PCP Internal Medicine; Visit Provider Student in an Organized Health Care Education/Training Program | DX: Z95.828 Presence of other vascular implants and grafts (principal) | CPT/HCPCS: 99213 ==

== ENCOUNTER 2024-09-07 10:25 | Oncology outpatient (recurring) (ONCR) | payer MEDICARE, OTHER, SELFPAY ==
[2024-09-07 11:39] LABS: Basophils # 0.1 10^3/uL (0.0-0.1); Basophils % 0.6 %; Eosinophils # 0.1 10^3/uL (0.0-0.8); Eosinophils % 0.6 %; Hematocrit 40.1 % (37-53); Lymphocytes # 0.6 10^3/uL (0.8-4.8); Mean Corpuscular HGB Conc 31.7 g/dL (30-55); Mean Corpuscular Hemoglobin 30.8 pg (27-33); Mean Corpuscular Volume 97.3 fl (82-101); Mean Platelet Volume 9.3 fL (7.4-10.4); Monocytes # 0.6 10^3/uL (0.2-0.9); Monocytes % 7.8 %; Neutrophils # 6.58 10^3/uL (1.8-7.7); Neutrophils % 82.6 %; Nucleated Red Blood Cells % 0 %; Platelet Count 180 10^3/cmm (157-399); Red Blood Count 4.12 10^6/uL (3.85-5.65); Red Cell Distribution Width 15.2 % (12.1-15.1); White Blood Count 7.97 10^3/uL (3.29-11.43)
[2024-09-07 12:09] LABS: Alanine Aminotransferase 12 U/L (0-41); Albumin Level 3.6 g/dL (3.5-5.2); Alkaline Phosphatase 86 U/L (40-130); Anion Gap 16.7 (5-19); Aspartate Amino Transferase 16 U/L (0-40); Blood Urea Nitrogen 14 mg/dL (8-23); Calcium 9.1 mg/dL (8.5-10.5); Carbon Dioxide 25 mmol/L (22-29); Chloride 104 mmol/L (98-107); Globulin 3.2 g/dL (1.3-4.6); Glucose 136 mg/dL (65-115); Osmolality Calculated 297 mOsm/kg (285-295); Potassium 3.7 mmol/L (3.5-5.1); Sodium 142 mmol/L (136-145); Thyroid Stimulating Hormone 19.27 uIU/mL (0.27-4.20); Total Bilirubin 0.6 mg/dL (0.15-1.2); Total Protein 6.8 g/dL (6.6-8.7)
[2024-09-07] MEDS: ondansetron 4 MG Tablet 8 MG PO (12:32)
[2024-09-07] MEDS: sodium chloride 0.9% 250 ML 75 ML IV (12:33)
[2024-09-07] MEDS: cemiplimab-rwlc 350 MG in sodium chloride 0.9% 250 ML 500 MG IV (13:33)
[2024-09-07 14:13] VITALS: BP 178/82; PULSE 64; RESP 17; TEMP 36.7; O2SAT 96
== END 2024-09-07 23:59 | disposition home or self-care (01) ==
PROVIDERS: Nurse Practitioner Family; PCP Internal Medicine; Visit Provider Internal Medicine
DX: Z51.12 Encounter for antineoplastic immunotherapy (principal); C44.42 Squamous cell carcinoma of skin of scalp and neck; M06.042 Rheumatoid arthritis without rheumatoid factor, left hand; M06.041 Rheumatoid arthritis without rheumatoid factor, right hand; R11.2 Nausea with vomiting, unspecified; T45.1X5A Adverse effect of antineoplastic and immunosuppressive drugs, initial encounter; X58.XXXA Exposure to other specified factors, initial encounter; L60.3 Nail dystrophy; D64.9 Anemia, unspecified; R03.0 Elevated blood-pressure reading, without diagnosis of hypertension; Z79.899 Other long term (current) drug therapy; Z92.3 Personal history of irradiation; Z85.46 Personal history of malignant neoplasm of prostate
CPT/HCPCS: 80053; 84443; 85025; 96375; 96413; 99214; A4222; J7050; J9119; Q0162

== ENCOUNTER 2024-09-14 06:24 | Outpatient (CLI) | payer MEDICARE, OTHER, SELFPAY ==
--- NOTE | 2024-09-14 06:37 | USCV_ITS ---
Kojo Marinelli Age: 78 Gender: M : 1945 Exam Date: 09/14/2024 06:49 Ordering Phys: Sonali Leahy Technologist: Exam Location: [facility] [place] Indication: cp sob BP: 130 / 74 HR: 63 Rhythm: Sinus Technical Quality: Adequate MEASUREMENTS (Male / Female) Normal Values 2D ECHO LV Diastolic Diameter PLAX 5.3 cm 4.2 - 5.9 / 3.9 - 5.3 cm IVS Diastolic Thickness 1.2 cm 0.6 - 1.0 / 0.6 - 0.9 cm IVS Systolic Thickness 1.7 cm LVPW Diastolic Thickness 1.1 cm 0.6 - 1.0 / 0.6 - 0.9 cm LVPW Systolic Thickness 1.8 cm LVOT Diameter 2.1 cm LV Ejection Fraction 2D Teich 70.8 % LV Ejection Fraction MOD 4C 59.3 % LV Ejection Fraction MOD 2C 46.3 % LV Ejection Fraction 2C AL 45.8 % LA Diameter 3.6 cm RA Systolic Volume 4C AL 40.9 ml RA Systolic Volume 4C MOD 37.5 ml Aorta at Sinotubular Diameter 3.4 cm M-MODE LA Ao Ratio MM 1.3 AV Cusp Separation MM 2.8 cm DOPPLER AV Peak Velocity 109.0 cm/s LVOT Peak Velocity 96.0 cm/s AV Area Cont Eq vti 3.1 cm squared AV Area Cont Eq pk 3.1 cm squared MV Peak Velocity 82.0 cm/s MV Area PHT 3.2 cm squared Mitral E to A Ratio 0.8 TV Peak Velocity 215.5 cm/s TR Peak Velocity 226.0 cm/s TR Peak Gradient 20.4 mmHg TV Peak E Velocity 87.0 cm/s PV Peak Velocity 73.5 cm/s FINDINGS Left Ventricle Normal left ventricular size, systolic function and wall thickness, with no regional wall motion abnormalities. Left ventricular ejection fraction is estimated at 60 %. Grade I/IV diastolic dysfunction (abnormal relaxation filling pattern), normal to mildly elevated filling pressures. Right Ventricle The right ventricle is normal in size and function. Right Atrium The right atrium is normal in size. Left Atrium The left atrium is normal in size. Mitral Valve Structurally normal mitral valve without significant stenosis or prolapse. There is no mitral regurgitation. Aortic Valve Moderate aortic valve calcification. No aortic valve stenosis. Trace aortic valve regurgitation. Tricuspid Valve Structurally normal tricuspid valve without significant stenosis or regurgitation. Pulmonary artery systolic pressure is normal. Pulmonic Valve Structurally normal pulmonic valve without significant stenosis. There is no pulmonic regurgitation. Pericardium Normal pericardium without effusion. Aorta Normal ascending aorta dimension. IVC The inferior vena cava appears normal. CONCLUSIONS Normal left ventricular size, systolic function and wall thickness, with no regional wall motion abnormalities. Left ventricular ejection fraction is estimated at 60 %. Grade I/IV diastolic dysfunction (abnormal relaxation filling pattern), normal to mildly elevated filling pressures. There is no pericardial effusion. No significant valve abnormalities. Right atrial pressure is around 5 mm of mercury. Naz Russ MD (Electronically Signed) Final Date: 29 September 2024 13:55 S
== END 2024-09-14 06:25 | disposition home or self-care (01) ==
LOC: RAD 06:25
PROVIDERS: PCP Internal Medicine; Visit Provider Nurse Practitioner Family
DX: I50.9 Heart failure, unspecified (principal); R93.1 Abnormal findings on diagnostic imaging of heart and coronary circulation; I35.8 Other nonrheumatic aortic valve disorders
CPT/HCPCS: 93306

== ENCOUNTER 2024-09-28 09:45 | Oncology outpatient (recurring) (ONCR) | payer MEDICARE, OTHER, SELFPAY ==
[2024-09-12 13:25] VITALS: BP 131/87; PULSE 73; RESP 18; TEMP 36.4; O2SAT 96
[2024-09-28 09:54] LABS: Hematocrit 37.0 % (37-53); Hemoglobin 11.70 g/dL (11.27-16.99); Mean Corpuscular HGB Conc 31.6 g/dL (30-55); Mean Corpuscular Hemoglobin 30.5 pg (27-33); Mean Corpuscular Volume 96.4 fl (82-101); Nucleated Red Blood Cells % 0 %; Platelet Count 175 10^3/cmm (157-399); Red Blood Count 3.84 10^6/uL (3.85-5.65); White Blood Count 5.18 10^3/uL (3.29-11.43)
[2024-09-28 10:15] LABS: Alanine Aminotransferase 10 U/L (0-41); Albumin Level 3.5 g/dL (3.5-5.2); Alkaline Phosphatase 70 U/L (40-130); Anion Gap 16.8 (5-19); Aspartate Amino Transferase 12 U/L (0-40); Blood Urea Nitrogen 13 mg/dL (8-23); Calcium 8.6 mg/dL (8.5-10.5); Carbon Dioxide 24 mmol/L (22-29); Chloride 102 mmol/L (98-107); Creatinine Clr Calc Pharmacy 68.0406; Globulin 2.8 g/dL (1.3-4.6); Glucose 138 mg/dL (65-115); Osmolality Calculated 290 mOsm/kg (285-295); Potassium 3.8 mmol/L (3.5-5.1); Sodium 139 mmol/L (136-145); Thyroid Stimulating Hormone 36.57 uIU/mL (0.27-4.20); Total Protein 6.3 g/dL (6.6-8.7)
[2024-09-28] MEDS: sodium chloride 0.9% (100 ml) 100 ML 75 ML (12:13)
[2024-09-28] MEDS: dexamethasone 4 mg/mL INJ 5 mL 12 MG IV (12:14)
[2024-09-28] MEDS: ondansetron 2 mg/ML SDV 2 mL 8 MG IVP (12:22)
[2024-09-28] MEDS: cemiplimab-rwlc 350 MG in sodium chloride 0.9% 250 ML 500 MG IV (13:03)
[2024-09-28 14:34] VITALS: BP 131/65; PULSE 60; RESP 18; O2SAT 96
[2024-09-28 14:58] LABS: Free T4 Free Thyroxine 0.87 ng/dL (0.82-1.77)
== END 2024-09-28 23:59 | disposition home or self-care (01) ==
PROVIDERS: Internal Medicine; PCP Internal Medicine; Visit Provider Nurse Practitioner
DX: Z51.12 Encounter for antineoplastic immunotherapy; C44.42 Squamous cell carcinoma of skin of scalp and neck; I25.10 Atherosclerotic heart disease of native coronary artery without angina pectoris; L60.3 Nail dystrophy; E03.9 Hypothyroidism, unspecified; Z79.52 Long term (current) use of systemic steroids; D64.9 Anemia, unspecified; R11.0 Nausea; I48.91 Unspecified atrial fibrillation; K59.00 Constipation, unspecified; Z79.899 Other long term (current) drug therapy; Z53.9 Procedure and treatment not carried out, unspecified reason
CPT/HCPCS: 80053; 84439; 84443; 84481; 85025; 96360; 96361; 96375; 96413; 99215; A4222; J1100; J2405; J3490; J7030; J7050; J9119

== ENCOUNTER 2024-09-29 09:09 | Oncology outpatient (recurring) (ONCR) | payer MEDICARE, OTHER, SELFPAY ==
[2024-09-29] MEDS: diphenhydrAMINE 50 mg/mL SDV 1mL 25 MG IVP (09:53)
[2024-09-29] MEDS: ondansetron 2 mg/ML SDV 2 mL 8 MG IVP (09:57)
--- NOTE | 2024-09-29 12:16 | XR_ITS ---
WS: [id number] XR abdomen 1V* [id number] REASON FOR EXAM: nausea/constipation FINDINGS: No free air or retroperitoneal air. Respiratory motion artifact degrades the imaging. Mild to moderate retained stool volume in the right, transverse, and left colon. No significant colonic distention. No small bowel distention. No mass or organomegaly. No urinary tract calculi. Posterior thoracolumbar fusion. Bilateral total hip arthroplasties. XR/XR abdomen 1V* [id number] IMPRESSION: No acute abdominal abnormality.
[2024-09-29 12:18] VITALS: BP 124/68
[2024-10-04 11:30] LABS: Vitamin B1 (Thiamine),Blood 85 nmol/L (78-185)
== END 2024-10-12 23:59 | disposition home or self-care (01) ==
LOC: ONCMED 09:09
PROVIDERS: Nurse Practitioner Family; PCP Internal Medicine; Visit Provider Nurse Practitioner
DX: C44.92 Squamous cell carcinoma of skin, unspecified (principal); Z79.899 Other long term (current) drug therapy; R11.0 Nausea; K59.00 Constipation, unspecified; M43.25 Fusion of spine, thoracolumbar region; Z96.643 Presence of artificial hip joint, bilateral
CPT/HCPCS: 74018; 84425; 96361; 96374; 96375; J1200; J2405; J3490; J7030; J9999

== ENCOUNTER 2024-10-11 11:38 | Emergency (ER) | payer MEDICARE, OTHER, SELFPAY ==
--- OUTSIDE RECORDS SUMMARY | 2024-10-11 11:43 | XMS_ITS | Encounter Summary ---
Author Organization [facility] Address [address] [place] [address] Care Team Providers Care Extension Course Counselor Name Role Phone Marsha Turner MD Primary Care Provider [phone] Encounter Details Date Type Department Care Team (Latest Contact Info) Description 07/12/2006 Outpatient [facility] [place] [address] Abilio Bagley MD [address] [place] [id number] Spasm Sphincter of Oddi (Primary Dx) Social History Tobacco Use Types Packs/Day Years Used Date Smoking Tobacco: Never Assessed Sex and Gender Information Value Date Recorded Sex Assigned at Not on file Legal Sex Male 6:16 AM [employer] Gender Identity Not on file Sexual Orientation Not on file documented as of this encounter Plan of Treatment Not on file documented as of this encounter Visit Diagnoses Diagnosis Spasm sphincter of Oddi- Primary Spasm of sphincter of Oddi documented in this encounter Care Teams Extension Course Counselor Relationship Specialty Start Date End Date Marsha Turner MD [address] [place] [address] PCP - General Internal Medicine 05/31/12 documented as of this encounter
--- OUTSIDE RECORDS SUMMARY | 2024-10-11 11:43 | XMS_ITS | Encounter Summary ---
Author Organization [facility] Address [address] [place] [address] Care Team Providers Care Capability Lead Name Role Phone Marsha Turner MD Primary Care Provider +1- [phone] Reason for Referral * Outpatient Services (Routine) - Closed Specialty Diagnoses / Procedures Referred By Contac t Referred To Contact Radiology Diagnoses H/O: stroke Dizziness History of atrial fibrillation Procedures ECHOCARDIOGRAM W/ CONTRAST AGENT ECHO COMPLETE W BUBBLE STUDY Hayes Harris MD Phone: tel: fax: [facility] [address] [place] [address] Phone: tel: fax: Referral ID Status Reason Start Date Expiration Date V isits Requested Visits Authorized [id number] Closed F MC TO SCHEDULE (SGF) 07/31/2016 08/31/2017 1 1 Encounter Details Date Type Department Care Team (Latest Contact Info) Description 08/20/2016 Ancillary Orders [facility] Neu[facility]- [place] 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 Gender Identity Not on file Sexual Orientation Not on file Occupation Industry Job Start Date Job End Date Not on file Not on file Not on file Not on file documented as of this encounter Plan of Treatment Not on file documented as of this encounter Results * ECHOCARDIOGRAM W/ CONTRAST AGENT (08/20/2016 8:51 AM CDT) EJECTION FRACTION 65 INTERFACE SYSTEM 08/20/2016 7:40 AM CDT Narrative INTERFACE SYSTEM - 08/20/2016 10:06 AM CDT [facility] Echocardiography-[address] [place] [address] Transthoracic Echocardiography Patient: Yves Study ECHO Kojo Brown ID: COMPLETE W Gender: Stephanie : 1945 Age: 70 Room: Study 08/20/2016 Pt Outpatient Date: Status: Study 07:40 AM CSN #: [id number] Time: Ordering:Hayes Harris Interpreting:Giovanni Benitez MD Head Cd Reactor Operator: Gabby Simeon [facility] Indications and History: : H/O: stroke [Z86.73 (ICD-10-CM)]; Dizziness [R42 (ICD-10-CM)]; History of atrial fibrillation [Z86.79 (ICD-10-CM)]. Risk factors: Family history of coronary artery disease. Morbidly obese. Summary and Conclusion: - Left ventricle: The cavity size was normal. Wall thickness was increased in a pattern of moderate LVH. There was concentric hypertrophy. Systolic function was normal. The left ventricular ejection fraction was 65%, by biplane method of disks. The visually estimated ejection fraction was in the range of 60% to 65%. No diagnostic regional wall motion abnormality identified. The study is not technically sufficient to allow evaluation of LV diastolic function. - Right ventricle: The cavity size was normal. Systolic function was normal. Systolic pressure was within the normal range. - Atrial septum: Agitated saline contrast study showed no guqnu-rp-vqsy shunt. - Aortic valve: Trileaflet; mildly thickened leaflets. Impressions: LVH. Normal LV contractility. No obvious shunt with bubble study. No prior echo available for comparison. Procedure information: Study status: Routine. Procedure: Initial setup. Intravenous access was obtained. Transthoracic echocardiography. Image quality was adequate. Scanning was performed from the parasternal, apical, subcostal, and suprasternal notch acoustic windows. Intravenous contrast (Definity) was administered to opacify the LV. An additional intravenous contrast (Agitated Saline) was also administered. There were no complications. There were no contrast reactions. Study components: M-mode, 2D, complete spectral Doppler, and color Doppler. Height: Height: 182.9cm. Height: 72in. Weight: Weight: 122.3kg. Weight: 269.1lb. Body mass index: BMI: 36.6kg/m\S\2. Body surface area: BSA: 2.54m\S\2. Blood pressure: 130/78. Patient status: Outpatient. Study date: Study date: August 20, 2016. Location: Echo laboratory. Cardiac Anatomy: LEFT VENTRICLE: The cavity size was normal. Wall thickness was increased in a pattern of moderate LVH. There was concentric hypertrophy. Systolic function was normal. The left ventricular ejection fraction was 65%, by biplane method of disks. The visually estimated ejection fraction was in the range of 60% to 65%. No diagnostic regional wall motion abnormality identified. The study is not technically sufficient to allow evaluation of LV diastolic function. RIGHT VENTRICLE: The cavity size was normal. Systolic function was normal. Systolic pressure was within the normal range. LEFT ATRIUM: The atrium was at the upper limits of normal in size. RIGHT ATRIUM: The atrium was normal in size. ATRIAL SEPTUM: No obvious PFO or ASD identified by 2D imaging and color Doppler. Agitated saline contrast study showed no xmqpd-cr-ruqd shunt. AORTIC VALVE: Trileaflet; mildly thickened leaflets. Mobility was not restricted. Doppler: There was no stenosis. No significant regurgitation. Peak velocity ratio of LVOT to aortic valve: 0.99. Peak gradient: 5mm Hg (S). MITRAL VALVE: Structurally normal valve. Mobility was not restricted. No echocardiographic evidence for prolapse. Doppler: There was no evidence for stenosis. No significant regurgitation. Valve area: 3.21cm\S\2. Indexed valve area: 1.27cm\S\2/m\S\2. Valve area by pressure half-time: 3.21cm\S\2. Indexed valve area by pressure half-time: 1.27cm\S\2/m\S\2. TRICUSPID VALVE: Structurally normal valve. Mobility was not restricted. Doppler: There was no evidence for stenosis. No significant regurgitation. PULMONIC VALVE: Not well visualized. The valve appears to be grossly normal. Doppler: There was no evidence for stenosis. No significant regurgitation. PERICARDIUM: There was no pericardial effusion. AORTA: Aortic root: The aortic root was normal in size. Aortic arch: The aortic arch was normal in size. PULMONARY ARTERY: Systolic pressure could not be accurately estimated. SYSTEMIC VEINS: Inferior vena cava: The vessel was normal in size. INTRACARDIAC MASS THROMBUS: No apparent intracavitary masses or thrombi detected. 2D measurements Adult Normal Range Left ventricle FS, chord, PLAX 46 % >29 LVID ED, max, PLAX 49.82 mm 36-54 LVID ES, max, PLAX 26.94 mm 23-40 FS, max, PLAX 46 % >29 LVPW, ED, PLAX 15.3 mm IVS/LVPW ratio, ED, PLAX 0.89 <1.3 Vol ED, MOD1 164.6 ml Vol ES, MOD1 50 ml Stroke vol, MOD1 114.6 ml Vol index, ED, MOD1 65 ml/m\S\2 Vol index, ES, MOD1 20 ml/m\S\2 Stroke index, MOD1 45.2 ml/m\S\2 Vol ED, MOD2 122.7 ml 62-170 Vol ES, MOD2 43.1 ml EF, MOD2 65.21 % Stroke vol, MOD2 85.7 ml Vol index, ED, MOD2 48 ml/m\S\2 Vol index, ES, MOD2 17 ml/m\S\2 Stroke index, MOD2 33.8 ml/m\S\2 Ventricular septum IVS, ED, PLAX 13.6 mm Aorta Root diam, ED 35.93 mm AAo AP diam, S 36.56 mm Left atrium AP dim 31.33 mm AP dim index 1.23 cm/m\S\2 <2.2 AP dim ES, PLAX 31.33 mm 23-38 SI dim, A4C 52.81 mm 29-53 Vol, S 46.7 ml Vol index, S 18.4 ml/m\S\2 Right atrium SI dim, ES, A4C *62.56 mm 34-49 Right ventricle RVID ED, PLAX 28 mm 19-38 Doppler measurements Adult Normal Range Left ventricle IVRT *112 ms 60-100 Ea, lat connor, tiss DP 7 cm/s E/Ea, lat connor, tiss DP 8.2 Ea, med connor, tiss DP 6 cm/s E/Ea, med connor, tiss DP 8.8 LVOT Peak mundo, S 109.02 cm/s Peak gradient, S 5 mm Hg Aortic valve Peak mundo, S 110.35 cm/s Peak gradient, S 5 mm Hg Peak mundo ratio, LVOT/AV 0.99 Mitral valve Peak E mundo 53.78 cm/s Peak A mundo 55.41 cm/s Deceleration time *236 ms 150-230 Pressure half-time 69 ms Peak E/A ratio 0.97 Area 3.21 cm\S\2 Area index 1.27 cm\S\2/m\S\2 Area (PHT) 3.21 cm\S\2 Area index (PHT) 1.27 cm\S\2/m\S\2 Legend: Mean values are shown as u=mean value. Asterisk (*) eaton values outside specified normal range. [facility] are accredited with the Intersocietal Accreditation Commission - Echocardiography. Prepared and Electronically Authenticated Giovanni Benitez MD Confirmed 08/20/2016 10:06 Procedure Note Giovanni Benitez MD - 08/20/2016 [facility] Echocardiography-[place] [address] [facility] [address] [place] [address] Transthoracic Echocardiography Patient: Yves Study ECHO Kojo Brown ID: COMPLETE W Gender: Stephanie : 1945 Age: 70 Room: Study 08/20/2016 Pt Outpatient Date: Status: Study 07:40 AM [facility] #: [id number] Time: Ordering:Hayes Harris Interpreting:Giovanni Benitez MD Head Cd Reactor Operator: Gabby Simeon [facility] Indications and History: : H/O: stroke [Z86.73 (ICD-10-CM)]; Dizziness [R42 (ICD-10-CM)]; History of atrial fibrillation [Z86.79 (ICD-10-CM)]. Risk factors: Family history of coronary artery disease. Morbidly obese. Summary and Conclusion: - Left ventricle: The cavity size was normal. Wall thickness was increased in a pattern of moderate LVH. There was concentric hypertrophy. Systolic function was normal. The left ventricular ejection fraction was 65%, by biplane method of disks. The visually estimated ejection fraction was in the range of 60% to 65%. No diagnostic regional wall motion abnormality identified. The study is not technically sufficient to allow evaluation of LV diastolic function. - Right ventricle: The cavity size was normal. Systolic function was normal. Systolic pressure was within the normal range. - Atrial septum: Agitated saline contrast study showed no kjhnt-iz-fkcl shunt. - Aortic valve: Trileaflet; mildly thickened leaflets. Impressions: LVH. Normal LV contractility. No obvious shunt with bubble study. No prior echo available for comparison. Procedure information: Study status: Routine. Procedure: Initial setup. Intravenous access was obtained. Transthoracic echocardiography. Image quality was adequate. Scanning was performed from the parasternal, apical, subcostal, and suprasternal notch acoustic windows. Intravenous contrast (Definity) was administered to opacify the LV. An additional intravenous contrast (Agitated Saline) was also administered. There were no complications. There were no contrast reactions. Study components: M-mode, 2D, complete spectral Doppler, and color Doppler. Height: Height: 182.9cm. Height: 72in. Weight: Weight: 122.3kg. Weight: 269.1lb. Body mass index: BMI: 36.6kg/m\S\2. Body surface area: BSA: 2.54m\S\2. Blood pressure: 130/78. Patient status: Outpatient. Study date: Study date: August 20, 2016. Location: Echo laboratory. Cardiac Anatomy: LEFT VENTRICLE: The cavity size was normal. Wall thickness was increased in a pattern of moderate LVH. There was concentric hypertrophy. Systolic function was normal. The left ventricular ejection fraction was 65%, by biplane method of disks. The visually estimated ejection fraction was in the range of 60% to 65%. No diagnostic regional wall motion abnormality identified. The study is not technically sufficient to allow evaluation of LV diastolic function. RIGHT VENTRICLE: The cavity size was normal. Systolic function was normal. Systolic pressure was within the normal range. LEFT ATRIUM: The atrium was at the upper limits of normal in size. RIGHT ATRIUM: The atrium was normal in size. ATRIAL SEPTUM: No obvious PFO or ASD identified by 2D imaging and color Doppler. Agitated saline contrast study showed no fnzqu-fg-zbfb shunt. AORTIC VALVE: Trileaflet; mildly thickened leaflets. Mobility was not restricted. Doppler: There was no stenosis. No significant regurgitation. Peak velocity ratio of LVOT to aortic valve: 0.99. Peak gradient: 5mm Hg (S). MITRAL VALVE: Structurally normal valve. Mobility was not restricted. No echocardiographic evidence for prolapse. Doppler: There was no evidence for stenosis. No significant regurgitation. Valve area: 3.21cm\S\2. Indexed valve area: 1.27cm\S\2/m\S\2. Valve area by pressure half-time: 3.21cm\S\2. Indexed valve area by pressure half-time: 1.27cm\S\2/m\S\2. TRICUSPID VALVE: Structurally normal valve. Mobility was not restricted. Doppler: There was no evidence for stenosis. No significant regurgitation. PULMONIC VALVE: Not well visualized. The valve appears to be grossly normal. Doppler: There was no evidence for stenosis. No significant regurgitation. PERICARDIUM: There was no pericardial effusion. AORTA: Aortic root: The aortic root was normal in size. Aortic arch: The aortic arch was normal in size. PULMONARY ARTERY: Systolic pressure could not be accurately estimated. SYSTEMIC VEINS: Inferior vena cava: The vessel was normal in size. INTRACARDIAC MASS THROMBUS: No apparent intracavitary masses or thrombi detected. 2D measurements Adult Normal Range Left ventricle FS, chord, PLAX 46 % >29 LVID ED, max, PLAX 49.82 mm 36-54 LVID ES, max, PLAX 26.94 mm 23-40 FS, max, PLAX 46 % >29 LVPW, ED, PLAX 15.3 mm IVS/LVPW ratio, ED, PLAX 0.89 <1.3 Vol ED, MOD1 164.6 ml Vol ES, MOD1 50 ml Stroke vol, MOD1 114.6 ml Vol index, ED, MOD1 65 ml/m\S\2 Vol index, ES, MOD1 20 ml/m\S\2 Stroke index, MOD1 45.2 ml/m\S\2 Vol ED, MOD2 122.7 ml 62-170 Vol ES, MOD2 43.1 ml EF, MOD2 65.21 % Stroke vol, MOD2 85.7 ml Vol index, ED, MOD2 48 ml/m\S\2 Vol index, ES, MOD2 17 ml/m\S\2 Stroke index, MOD2 33.8 ml/m\S\2 Ventricular septum IVS, ED, PLAX 13.6 mm Aorta Root diam, ED 35.93 mm AAo AP diam, S 36.56 mm Left atrium AP dim 31.33 mm AP dim index 1.23 cm/m\S\2 <2.2 AP dim ES, PLAX 31.33 mm 23-38 SI dim, A4C 52.81 mm 29-53 Vol, S 46.7 ml Vol index, S 18.4 ml/m\S\2 Right atrium SI dim, ES, A4C *62.56 mm 34-49 Right ventricle RVID ED, PLAX 28 mm 19-38 Doppler measurements Adult Normal Range Left ventricle IVRT *112 ms 60-100 Ea, lat connor, tiss DP 7 cm/s E/Ea, lat connor, tiss DP 8.2 Ea, med connor, tiss DP 6 cm/s E/Ea, med connor, tiss DP 8.8 LVOT Peak mundo, S 109.02 cm/s Peak gradient, S 5 mm Hg Aortic valve Peak mundo, S 110.35 cm/s Peak gradient, S 5 mm Hg Peak mundo ratio, LVOT/AV 0.99 Mitral valve Peak E mundo 53.78 cm/s Peak A mundo 55.41 cm/s Deceleration time *236 ms 150-230 Pressure half-time 69 ms Peak E/A ratio 0.97 Area 3.21 cm\S\2 Area index 1.27 cm\S\2/m\S\2 Area (PHT) 3.21 cm\S\2 Area index (PHT) 1.27 cm\S\2/m\S\2 Legend: Mean values are shown as u=mean value. Asterisk (*) eaton values outside specified normal range. [facility] are accredited with the Intersocietal Accreditation Commission - Echocardiography. Prepared and Electronically Authenticated Giovanni Benitez MD Confirmed 08/20/2016 10:06 us Hayes Harris MD US ORDERABLES Final Resul t INTERFACE SYSTEM Refer to clinic/hospital department documented in this encounter Visit Diagnoses Diagnosis H/O: stroke Transient ischemic attack (TIA), and cerebral infarction without residual deficits Dizziness Dizziness and giddiness History of atrial fibrillation Personal history of other diseases of circulatory system H/O: stroke Transient ischemic attack (TIA), and cerebral infarction without residual deficits Dizziness Dizziness and giddiness History of atrial fibrillation Personal history of other diseases of circulatory system documented in this encounter Care Teams Capability Lead Relationship Specialty Start Date End Date Marsha Turner MD [address] [place] [id number] PCP - General Internal Medicine 05/31/12 documented as of this encounter
--- OUTSIDE RECORDS SUMMARY | 2024-10-11 11:43 | XMS_ITS | Encounter Summary ---
Author Organization [facility] Address [address] [place] [address] Care Team Providers Care Fire Prevention Inspector Name Role Phone Marsha Turner MD Primary Care Provider +1- [phone] Encounter Details Date Type Department Care Team (Late st Contact Info) Description 12/08/2007 Outpatient Historical [facility] DEFAULT DEPARTMENT Dee Casillas MD [address] [phone] Social History Tobacco Use Types Packs/Day Years Used Date Smoking Tobacco: Never Assessed Sex and Gender Information Value Date Recorded Sex Assigned at Not on file 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
--- OUTSIDE RECORDS SUMMARY | 2024-10-11 11:43 | XMS_ITS | Encounter Summary ---
Author Organization [facility] Address [address] [place] [address] Care Team Providers Care Battery Assembler Name Role Phone Marsha Turner MD Primary Care Provider +1- [phone] Encounter Details Date Type Department Care Team (Latest Contact Info) Description 05/06/2005 Outpatient [facility] Gastro[facility] [place] [address] Abilio Bagley MD [address] [place] [address] CHEST PAIN NOS (Primary Dx) Social History Tobacco Use Types Packs/Day Years Used Date Smoking Tobacco: Never Assessed Sex and Gender Information Value Date Recorded Sex Assigned at Not on file 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
--- OUTSIDE RECORDS SUMMARY | 2024-10-11 11:43 | XMS_ITS | Clinical Summary ---
Author Organization [facility] Address [address] [place] [address] Care Team Providers Care Choke Setter Name Role Phone Marsha Turner MD Primary Care Provider +1- [phone] Allergies Active Allergy Reactions Criticality Noted Date Comments Adhesive Rash Low 06/22/2012 Metoclopramide Other (See Comments) Low 03/05/2008 hyper Morphine Hives High 03/05/2008 Tamsulosin Hypotension,Hypertension Medium 06/21/2012 Zolpidem Abdominal Pain Low 03/05/2008 hyper Medications albuterol (PROVENTIL,VENTOL IN) 2.5 mg /3 mL (0.083 %) Solution for Nebulization Take 3 mL (2.5 mg) by inhalation every 4 hours as needed for Shortness of Breath. 3 mL 0 9 Active lisinopriL (PRINIVIL) 10 mg tablet Take 1 Tablet (10 mg) by mouth 2 times daily. 60 Tablet 0 9 Active tofacitinib (Xeljanz) 5 mg Tablet 0 Active acetaminophen (TYLENOL) 325 mg tablet Take 2 Tablets (650 mg) by mouth every 6 hours as needed for Other (See Comment) (See admin instructions). 9 Active gabapentin (NEURONTIN) 300 mg capsule Take 1 Capsule (300 mg) by mouth every 8 hours Has medication at home. 10 Capsule 0 9 Active isosorbide mononitrate (IMDUR) 30 mg Extended Release 24 hour tablet 0 Active docusate sodium (COLACE) 100 mg capsule Take 1 Capsule (100 mg) by mouth 2 times daily as needed for Constipation. 9 Active etanercept (EnbreL SureClick) 50 mg/mL (1 mL) Pen Injector 0 Active amLODIPine (NORVASC) 2.5 mg tablet Take 1 Tablet (2.5 mg) by mouth daily. 30 Tablet 0 9 Active polysaccharide iron complex (FERREX 150,IFEREX 150) 150 mg iron capsule Take 1 Capsule (150 mg) by mouth daily. 30 Capsule 0 9 Active carvediloL (COREG) 12.5 mg tablet Take 1 Tablet (12.5 mg) by mouth 2 times daily with meals. 60 Tablet 0 9 Active atorvastatin (LIPITOR) 40 mg tablet 0 Active cholecalciferol, vitamin D3, 1,000 unit Take 1 Tablet (1,000 Units) by mouth daily. 30 Tablet 0 9 Active diclofenac sodium (VOLTAREN) 1 % gel 0 Active omeprazole magnesium (PRILOSEC ORAL) Take by mouth. 1 Active bi-level machineIndication s:FUAD treated with BiPAP Auto titrating bilevel with max IP 17 / min EP 7 and PS 6 CWP with heated humidifier. Supplies: full face/hybrid full face and headgear A7030/A7035 1/6mo, mask only A7030 1/3mo,Cushion A7031 1/mo, heated tubing A4604 1/3mo,water chamber A7046 1/6mo,filter disp A7038 2/mo,Reusable filter A7039 1/6mo, Chin strap A7036 a/6mo AIDAN 99mo DX: FUAD (G47.33) 1 Each 2 Active Active Problems Problem Noted Date Diagnosed Date Cervical radiculopathy at C8 left 08/16/2018 Acute postoperative neck pain 08/16/2018 Peripheral neuropathy 08/16/2018 Left foot drop, chronic 08/16/2018 COPD (chronic obstructive pulmonary disease) 06/2018 Acute blood loss anemia 08/16/2018 Cervical stenosis of spine 07/21/2018 Obesity (BMI 30.0-34.9) 09/02/2017 History of dizziness 09/02/2017 Allergic rhinitis 09/02/2017 Carotid stenosis, right 09/02/2017 Leukocytopenia 09/02/2017 Asymmetric SNHL (sensorineural hearing loss) Orthostatic hypotension 06/12/2016 History of GI bleed 06/02/2016 Dyslipidemia 06/02/2016 Essential hypertension 06/02/2016 Hypothyroidism 06/02/2016 Rheumatoid arthritis involvi ng multiple sites with positive rheumatoid factor 06/02/2016 Gastroesophageal reflux disease without esophagi tis 06/02/2016 History of atrial fibrillation 06/02/2016 History of prostate cancer 06/02/2016 History of cerebrovascular accident 06/02/2016 Hx of myocardial infarction 06/02/2016 First degree AV block 06/02/2016 Anemia 06/02/2016 Preop general physical exam 06/02/2016 FUAD on CPAP 05/14/2016 Hyperopia with astigmatism and presbyopia 2015 Dry eyes, bilateral 01/28/2016 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 Postlaminectomy syndrome, lumbar region 01/30/20 15 Lumbar radicular pain 01/29/2015 Dysphagia 04/24/2014 S/P cervical spinal fusion 05/12/2013 Cervical spondylosis without myelopathy 04/03/19 14 Back pain 12/26/2010 Immunizations Immunization Administration Dates Next Due Influenza Seasonal Unspecified Formulation IM Family History Medical History Relation Name Comments Unknown Brother 1 Heart Disease Brother 2 [place] Other Brother 2 Kelton Respiratory Disease Brother 2 Kelton Cancer Brother 3 Prostate Rashes/Skin Problems Brother 3 Other Daughter 1 Zeo MS Healthy Daughter 2 Judith Diabetes Daughter 3 Ivonne Other Daughter 3 Ivonne Fibromyalgia Thyroid Disease Daughter 3 Ivonne Heart Disease Father Other Father Rashes/Skin Problems Maternal Uncle Cancer Mother Stroke Mother Cancer Sister 1 Thyroid Healthy Sister 2 Consuelo Amblyopia Neg Hx Blindness Neg Hx Cataract Neg Hx Colon Cancer Neg Hx Detachment/Tears Neg Hx Glaucoma Neg Hx Macular Degen Neg Hx Strabismus Neg Hx Relation Name Status Comments Brother 1 (Age 70) Brother 2 Kelton Alive Brother 3 (Age 67) Daughter 1 Zoe Alive Daughter 2 Judith Alive Daughter 3 Ivonne Alive Father (Age 94) Maternal Uncle Mother (Age 81) Sister 1 (Age 78) Sister 2 Consuelo Alive Social History Tobacco Use Types Packs/Day Years Used Date Smoking Tobacco: Never Smokeless Tobacco: Never Alcohol Use Standard Drinks/Week Comments No 0 (1 standard drink = 0.6 oz pur e alcohol) Sex and Gender Information Value Date Recorded Sex Assigned at Not on file Legal Sex 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 Gender Identity Not on file Sexual Orientation Not on file Last Filed Vital Signs Vital Sign Reading Time Taken Comments Blood Pressure 110/64 11/19/2021 7:33 AM CDT Pulse 80 11/19/2021 7:33 AM CDT Temperature 36.9 C (98.4 F) 12/08/2019 10:15 AM CDT Respiratory Rate 20 12/08/2019 10:15 AM CDT Oxygen Saturation 95% 11/19/2021 7:33 AM CDT Inhaled Oxygen Concentration - - Weight 119.3 kg (263 lb) 11/19/2021 7:33 AM CDT Height 177.8 cm (5' 10 ) 11/19/2021 7:33 AM CDT Body Mass Index 37.74 11/19/2021 7:33 AM CDT Plan of Treatment Health Maintenance Due Date Last Done Comments DTAP/TDAP/TD VACCINES (1 - Tdap) 12/04/1962 PNEUMOCOCCAL VACCINE 50+ YEARS (1 of 2 - PCV) 12/04/18 61 ZOSTER VACCINE (1 of 2) 12/04/1993 RSV VACCINE (60+ or ) (1 - 1-dose 75+ series) 12/04/2018 INFLUENZA VACCINE (#1) 2024 01/01/2013 COLORECTAL SCREENING Discontinued 01/13/2013 Colorectal Cancer Screening Discontinued FIT-DNA Q 3 years Discontinued FIT/FOBT Q 1 year Discontinued Flex Sig/CT Colonography Q 5 years Discontinued Medical Devices Implanted Type Area Diving Fisher Device Identifier Shelf Expiration Date Model / Serial / Lot Vitoss Foam Ba 1.2ml [id number] - Sna Implanted:Qty: 1 on 04/18/2013 Biological N/A: Spine Cervical Anterior LISA- SPINE 10/13/2014 / NA / [id number] [place] C Stand Alone Cage [id number] Implanted:Qty: 1 on 04/18/2013 by John Castillo MD Cage N/A: Spine Cervical Anterior LISA- SPINE [id number] / LD [id number] / NA Cement Palacos R+G [id number] - Sna Implanted:Qty: 2 on 09/29/2012 Cement Left: Knee SHIRA US INC 01/13/201660-1389-196-01 / NA / NA Hemostatic Gelfoam Powder 1gm [id number] - [id number] Implanted:Qty: 1 on 05/20/2015 by Dee Casillas MD Hemostatic N/A: Spine Thoracic PFIZER- PHARM 10/12/[id number] / / [id number] Hemostatic Gelfoam Powder 1gm [id number] - [id number] Implanted:Qty: 1 on 09/14/2017 by Dee Casillas MD Hemostatic N/A: Back PFIZER- PHARM 11/13/2019 [id number] / / [id number] Gel-Flow Nt Implanted:Qty: 1 on 08/12/2018 by Dee Casillas MD Hemostatic N/A: Spine Cervical Anterior PFIZER- PHARMACIA AND UPJOHN I 08/04/2019 / / [id number] Bearing Tib Vng 10mm 79/83mm 992307 - [id number] Implanted:Qty: 1 on 09/29/2012 Knee Left: Knee BIOMET INC 05/12/2017 845615 / / [id number] Comp Fem Vng Ps Sz72.5 Lt 552077 - [id number] Implanted:Qty: 1 on 09/29/2012 Knee Left: Knee BIOMET INC 06/12/2022 071233 / / [id number] Comp Tib Cocr Finned 83mm 092489 - [id number] Implanted:Qty: 1 on 09/29/2012 Knee Left: Knee BIOMET INC 03/14/2022 190770 / / [id number] Standard Patella Implanted:Qty: 1 on 09/29/2012 by Dylon Abreu MD Knee Left: Knee BIOMET- ORTHOPEDICS, INC 07/12/2017 463555 / / [id number] Plate Hybrid Cerv 12mm 67463419 - Sld [id number] Implanted:Qty: 1 on 04/18/2013 Plate N/A: Spine Cervical Anterior LISA- SPINE 29340052 / LD [id number] / NA Issac Lgcy Crv Ti 5.6z635oe 7438904 - [id number] Implanted:Qty: 1 on 09/14/2017 by Dee Casillas MD Issac N/A: Back MEDTRONIC- SOFAMOR DANEK 09/15/2019 4150363 / / [id number] Issac Lgcy Crv Ti 5.5s760kg 6413926 - [id number] Implanted:Qty: 1 on 09/14/2017 by Dee Casillas MD Issac N/A: Back MEDTRONIC- SOFAMOR DANEK 09/15/2019 6025343 / / [id number] Issac Std 3.5d815rl 6303979 - [id number] Implanted:Qty: 2 on 08/12/2018 by Dee Casillas MD Issac N/A: Spine Cervical Anterior MEDTRONIC- SOFAMOR DANEK 1476731 / [id number] / Screw Rh St Va 4.0x14mm 61634061 - Sld [id number] Implanted:Qty: 2 on 04/18/2013 Screw N/A: Spine Cervical Anterior LISA- SPINE 51786465 / LD [id number] / NA Screw Sd 3.5x10mm 19568301 - Sld [id number] Implanted:Qty: 2 on 04/18/2013 Screw N/A: Spine Cervical Anterior LISA- SPINE 69276624 / LD [id number] / NA Screw Rh Sd Fa 4.0x14mm 29355403 - Sld [id number] Implanted:Qty: 1 on 04/18/2013 Screw N/A: Spine Cervical Anterior LISA- SPINE 86431833 / LD [id number] / NA Screw Rh St Fa 4.0x14mm 29792294 - Sld [id number] Implanted:Qty: 1 on 04/18/2013 Screw N/A: Spine Cervical Anterior LISA- SPINE 12388253 / LD [id number] / NA Screw Legacy Ma 6.5x50mm 76965046 - [id number] Implanted:Qty: 1 on 09/14/2017 by Dee Casillas MD Screw N/A: Back MEDTRONIC- SOFAMOR DANEK 23029684 / / [id number] Screw Legacy Ma 6.5x50mm 30720392 - [id number] Implanted:Qty: 1 on 09/14/2017 by Dee Casillas MD Screw N/A: Back MEDTRONIC- SOFAMOR DANEK 09026166 / / [id number] Screw Legacy Ma 7.5x50mm 98099390 - [id number] Implanted:Qty: 1 on 09/14/2017 by Dee Casillas MD Screw N/A: Back MEDTRONIC- SOFAMOR DANEK 96462528 / / [id number] Screw Legacy Ma 7.5x50mm 84122792 - [id number] Implanted:Qty: 1 on 09/14/2017 by Dee Casillas MD Screw N/A: Back MEDTRONIC- SOFAMOR DANEK 68119534 / / [id number] Set Screw Break Off Ti 4928878 - [id number] Implanted:Qty: 1 on 09/14/2017 by Dee Casillas MD Screw N/A: Back MEDTRONIC- SOFAMOR DANEK 1886577 / / [id number] Set Screw Break Off Ti 7464405 - [id number] Implanted:Qty: 1 on 09/14/2017 by Dee Casillas MD Screw N/A: Back MEDTRONIC- SOFAMOR DANEK 9533752 / / [id number] Set Screw Break Off Ti 1483697 - [id number] Implanted:Qty: 1 on 09/14/2017 by Dee Casillas MD Screw N/A: Back MEDTRONIC- SOFAMOR DANEK 0196895 / / [id number] Set Screw Break Off Ti 3002369 - [id number] Implanted:Qty: 1 on 09/14/2017 by Dee Casillas MD Screw N/A: Back MEDTRONIC- SOFAMOR DANEK 9718286 / / [id number] Set Screw Break Off Ti 0611384 - [id number] Implanted:Qty: 1 on 09/14/2017 by Dee Casillas MD Screw N/A: Back MEDTRONIC- SOFAMOR DANEK 9077964 / / [id number] Set Screw Break Off Ti 6623673 - [id number] Implanted:Qty: 1 on 09/14/2017 by Dee Casillas MD Screw N/A: Back MEDTRONIC- SOFAMOR DANEK 4051259 / / [id number] Set Screw Break Off Ti 0421707 - [id number] Implanted:Qty: 1 on 09/14/2017 by Dee Casillas MD Screw N/A: Back MEDTRONIC- SOFAMOR DANEK 1998198 / / [id number] Set Screw Break Off Ti 0820469 - [id number] Implanted:Qty: 1 on 09/14/2017 by Dee Casillas MD Screw N/A: Back MEDTRONIC- SOFAMOR DANEK 3607191 / / [id number] Infinity Screw Implanted:Qty: 7 on 08/12/2018 by Dee Casillas MD Screw N/A: Spine Cervical Anterior MEDTRONIC- NEUROSURGERY 6123671 / [id number] / Description:PER INVOICE Infinity Screw Implanted:Qty: 2 on 08/12/2018 by Dee Casillas MD Screw N/A: Spine Cervical Anterior MEDTRONIC- NEUROSURGERY 9108886 / [id number] / Description:PER INVOICE Infinity Screw Implanted:Qty: 2 on 08/12/2018 by Dee Casillas MD Screw N/A: Spine Cervical Anterior MEDTRONIC- NEUROSURGERY 6500897 / [id number] / Description:PER INVOICE Infinity Set Screws Implanted:Qty: 11 on 08/12/2018 by Dee Casillas MD Screw N/A: Spine Cervical Anterior 1755596 / [id number] / Description:PER INVOICE Spacer As 3t07j07t8h 14064950 - Sld [id number] Implanted:Qty: 1 on 04/18/2013 Spacer N/A: Spine Cervical Anterior LISA- SPINE 66263560 / LD [id number] / NA Crosslink Lp Mltspn L=1.75-2.15 811-322 - [id number] Implanted:Qty: 1 on 09/14/2017 by Dee Casillas MD Spine N/A: Back MEDTRONIC- SOFAMOR ALVINAEK 09/15/2019 811-322 / / [id number] Description:09/17 inv pricing Putty Bio Dbm 10ml 9862015 - [id number] Implanted:Qty: 1 on 09/14/2017 by Dee Casillas MD Tissue N/A: Back ILSA- HOWMEDICA INT INC 05/27/2019 2885572 / / [id number] Putty Bio Dbm 10ml 8885653 - [id number] Implanted:Qty: 1 on 09/14/2017 by Dee Casillas MD Tissue N/A: Back LISA- HOWMEDICA INT INC 05/16/2019 5419869 / / [id number] Readigraft Canc Chips 30ml Can30 14bp - [id number] Implanted:Qty: 1 on 09/14/2017 by Dee Casillas MD Tissue N/A: Back Integral Vision 08/20/2019 CAN30 14BP / / [id number] Putty Bio Dbm 10ml 5301170 - [id number] Implanted:Qty: 1 on 08/12/2018 by Dee Casillas MD Tissue N/A: Spine Cervical Anterior LISA- HOWMED[employer] INT INC 04/13/2020 5843431 / / [id number] Putty Bio Dbm 10ml 2186579 - [id number] Implanted:Qty: 1 on 08/12/2018 by Dee Casillas MD Tissue N/A: Spine Cervical Anterior LISA- HOWMEDICA INT INC 04/13/2020 1158855 / / [id number] Explanted Type Area Diving Fisher Device Identifier Shelf Expiration Date Model / Serial / Lot Stim Spnl Cord Precision Spectra [id number] - [id number] Implanted:Qty : 1 on 05/20/2015 by Dee Casillas MD Explanted:Qty : 1 on 06/15/2016 by Dee Casillas MD Neuro Right: Spine Thoracic [employer]- NEURO MODULATION 05/02/2017 DE-1132 / / [id number] Infinity Set Screws Explanted:Qty : 2 on 08/12/2018 Screw N/A: Spine Cervical Anterior MEDTRONIC- NEUROSURGERY 8420220 / [id number] / Description:PER INVOICE Cover Edge 32 70cm 4x8 Interventional Radiologist Kit [id number] Implanted:Qty : 1 on 05/20/2015 by Dee Casillas MD Explanted:Qty : 1 on 06/15/2016 by Dee Casillas MD N/A: Spine Thoracic [employer] INC 02/11/2017 / [id number] / [id number] Set Screws X4, Blockers X4, And 2 Rods Explanted:Qty : 1 on 09/14/2017 by Dee Casillas MD N/A: Spine Cervical Anterior Insurance MEDICARE PART A AND B [employer] * Guarantor: KOJO MARINELLI Account Type Relation to Patient Date of Phone Billing Address Personal/Family [address] [place] [address] RX [facility] Medicare Part D Care Teams Choke Setter Relationship Specialty Start Date End Date Marsha Turner MD [address] [place] [address] PCP - General 06/12/20
--- OUTSIDE RECORDS SUMMARY | 2024-10-11 11:43 | XMS_ITS | Encounter Summary ---
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
--- OUTSIDE RECORDS SUMMARY | 2024-10-11 11:43 | XMS_ITS | Encounter Summary ---
Author Organization [facility] Address [address] [place] [address] Care Team Providers Care Can Capper Name Role Phone Marsha Turner MD Primary Care Provider +1- [phone] Encounter Details Date Type Department Care Team (Late st Contact Info) Description 09/23/2005 Outpatient Historical [facility] [place] [facility] [place] [address] 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
--- OUTSIDE RECORDS SUMMARY | 2024-10-11 11:43 | XMS_ITS | Encounter Summary ---
Author Organization [facility] Address [address] [place] [address] Care Team Providers Care Supervisor Dry Cell Assembly Name Role Phone Marsha Turner MD Primary Care Provider +1- [phone] Encounter Details Date Type Department Care Team (Latest Contact Info) Description 12/21/2007 Outpatient [facility] [address] [place] [address] [facility] [address] [place] [address] Dee Casillas MD 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 Comparisons: 10/17/2007 at 1843. Findings: Heart size appears within normal limits. The aorta is mildly tortuous. Lungs are clear without evidence for effusion, edema, or infiltrates. No evidence for pneumothorax. Degenerative changes of the thoracic spine are identified. Impressions: 1. No acute cardiopulmonary disease. 2. No significant interval change. - Dictated By: Eleazar Crowley M.D., Ph.D. Electronically Signed By: Eleazar Crowley M.D., Ph.D. Date Signed: 01/07/08 SDM Procedure Note Eleazar Crowley - 01/07/2008 Exam: Chest - PA and Lateral Date/Time of Exam: Jan 02, 2008 5:05:43 PM History: Pre-operative. Comparisons: 10/17/2007 at 1843. Findings: Heart size appears within normal limits. The aorta is mildlytortuous. Lungs are clear without evidence for effusion, edema, or infiltrates. No evidence forpneumothorax. Degenerative changes of the thoracic spine are identified. Impressions: 1. No acute cardiopulmonary disease. 2. No significant interval change. - Dictated By: Eleazar Crowley M.D., Ph.D. Electronically Signed By: Eleazar Crowley M.D., Ph.D. Date Signed: 01/07/08 SDM Dee Casillas MD DIAGNOSTIC IMAGING ORDERABLES Fi nal Result documented in this encounter Visit Diagnoses Diagnosis Backache, unspecified Arthrodesis status Old myocardial infarction Diaphragmatic hernia without mention of obstruction or gangrene Unspecified asthma(493.90) Unspecified asthma Headache(784.0) Headache Heart failure, unspecified (CMS/HCC) Heart failure, unspecified documented in this encounter Care Teams Supervisor Dry Cell Assembly Relationship Specialty Start Date End Date Marsha Turner MD [address] [place] [address] PCP - General Internal Medicine 05/31/12 documented as of this encounter
--- OUTSIDE RECORDS SUMMARY | 2024-10-11 11:43 | XMS_ITS | Encounter Summary ---
Author Organization [facility] Address [address] [place] [address] Care Team Providers Care Beauty Counselor Name Role Phone Marsha Turner MD Primary Care Provider +1- [phone] Encounter Details Date Type Department Care Team (Late st Contact Info) Description 08/27/2005 Outpatient Historical [facility] Urology [facility] [place] [address] 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
--- OUTSIDE RECORDS SUMMARY | 2024-10-11 11:43 | XMS_ITS | Encounter Summary ---
Author Organization [facility] Address [address] [place] [address] Care Team Providers Care Electrolysis Needle Operator Name Role Phone Marsha Turner MD Primary Care Provider +1- [phone] Encounter Details Date Type Department Care Team (Latest Contact Info) Description 02/03/2008 Outpatient Historical [facility] [address] [facility] [address] [place] [address] Aliyah Lange, PA [address] [place] [address] Arthrodesis Status; Lumbago; Pain in Soft Tissues of Limb; Unspecified Heart Failure (CMS/HCC); Unspecified Arthropathy, Site Unspecified; Esophageal Reflux; Diaphragmatic Hernia without Mention of Obstruction or Gangrene; Other Malignant Neoplasm of Unspecified Site (CMS/HCC) Social History Tobacco Use Types Packs/Day Years Used Date Smoking Tobacco: Never Assessed Sex and Gender Information Value Date Recorded Sex Assigned at Not on file Legal Sex Male 6:16 AM PC NETWORK TECHNICIAN Gender Identity Not on file Sexual Orientation Not on file documented as of this encounter Plan of Treatment Not on file documented as of this encounter Procedures Procedure Name Priority Date/Time Associated Diagnosis Comments XR LUMBAR SPINE 2 OR 3 VW Routine 02/06/2008 10:19 AM PC NETWORK TECHNICIAN documented in this encounter Results * XR LUMBAR SPINE 2 OR 3 VW (02/06/2008 10:19 AM PC NETWORK TECHNICIAN) Anatomical Region Laterality Modality Spine Other 02/06/2008 10:1 9 AM PC NETWORK TECHNICIAN Narrative 02/06/2008 1:09 PM PC NETWORK TECHNICIAN Exam: Spine - Lumbar Date/Time of Exam: Feb 06, 2008 10:19:37 AM History: L 3--4. Findings: Patient is status post lumbar spine fusion at the L3-L4 level with hardware in place. There is also a bony fusion present from L4 through S1. Marked degenerative change is noted at the thoracolumbar junction region from T11 through L1. No hardware failure or other complication evident. Surgical sean noted in the midline. Surgical sean noted in the right upper quadrant of the abdomen. Bowel gas pattern is nonspecific. Clinical correlation is recommended. - Dictated By: Chava Sorenson M.D. Electronically Signed By: Chava Sorenson M.D. Date Signed: 02/06/08 SDM Procedure Note Chava Sorenson MD - 02/06/2008 Exam: Spine - Lumbar Date/Time of Exam: Feb 06, 2008 10:19:37 AM History: L 3--4. Findings: Patient is status post lumbar spine fusion at the L3-L4 levelwith hardware in place. There is also a bony fusion present from L4 through S1. Marked degenerative changeis noted at the thoracolumbar junction region from T11 through L1. No hardware failure or othercomplication evident. Surgical sean noted in the midline. Surgical sean noted in the right upper quadrantof the abdomen. Bowel gas pattern is nonspecific. Clinical correlation is recommended. - Dictated By: Chava Sorenson M.D. Electronically Signed By: Chava Sorenson M.D. Date Signed: 02/06/08 SDM Aliyah MONTALVO DIAGNOSTIC IMAGING ORDERABLES Final Result documented in this encounter Visit Diagnoses Diagnosis Arthrodesis status Lumbago Pain in limb Heart failure, unspecified (CMS/HCC) Heart failure, unspecified Arthropathy, unspecified, site unspecified Esophageal reflux Diaphragmatic hernia without mention of obstruction or gangrene Other malignant neoplasm without specification of site documented in this encounter Care Teams Electrolysis Needle Operator Relationship Specialty Start Date End Date Marsha Turner MD [address] [place] [address] PCP - General Internal Medicine 05/31/12 documented as of this encounter
--- OUTSIDE RECORDS SUMMARY | 2024-10-11 11:43 | XMS_ITS | Encounter Summary ---
Author Organization [facility] Address [address] [place] [address] Care Team Providers Care Mammography Technologist Name Role Phone Marsha Turner MD Primary Care Provider +1- [phone] Encounter Details Date Type Department Care Team (Latest Contact Info) Description 12/16/2007 Outpatient Historical [facility] NE[facility]OP Dee Casillas MD [address] [address] Brachial Neuritis or Radiculitis NOS Social History Tobacco Use Types Packs/Day Years Used Date Smoking Tobacco: Never Assessed Sex and Gender Information Value Date Recorded Sex Assigned at Not on file Legal 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 No prior studies. Normal height and alignment of the cervical vertebra. Straightening of the cervical lordosis. The paraspinal soft tissues are unremarkable. No acute fracture or significant focal osseous abnormality. Normal relationships at the foramen magnum and appearance of the cord. C1-2: Mild atlantoaxial degenerative changes. C2-3: Unremarkable. C3-4: Mild spondylitic disc bulge and moderate left facet hypertrophic degenerative changes and very mild left foraminal narrowing. C4-5: Very mild disc bulge and punctate high intensity signal in the mid annulus. C5-6: Moderate disc space height and signal loss and a moderate osteoannular bulge which abuts but does not significantly compress the cord. Very mild right and moderate left neural foraminal narrowing. C6-7: Moderate disc space height loss and a mild osteoannular bulge and moderate right foraminal stenosis. C7-T1: Unremarkable. Impression: 1. 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 - Dictated By: Arun Rai M.D. Electronically Signed By: Arun Rai M.D. Date Signed: 12/30/07 Procedure Note Chang Rai B - 12/30/2007 Cervical Spine MRI Without Contrast History: Headaches and limited cervical range of motion. No prior studies. Normal height and alignment of the cervical vertebra. Straightening of thecervical lordosis. The paraspinal soft tissues are unremarkable. No acute fracture or significantfocal osseous abnormality. Normal relationships at the foramen magnum and appearance of the cord. C1-2: Mild atlantoaxial degenerative changes. C2-3: Unremarkable. C3-4: Mild spondylitic disc bulge and moderate left facet hypertrophicdegenerative changes and very mild left foraminal narrowing. C4-5: Very mild disc bulge and punctate high intensity signal in the midannulus. C5-6: Moderate disc space height and signal loss and a moderateosteoannular bulge which abuts but does not significantly compress the cord. Very mild right and moderate leftneural foraminal narrowing. C6-7: Moderate disc space height loss and a mild osteoannular bulge andmoderate right foraminal stenosis. C7-T1: Unremarkable. Impression: 1. Multilevel degenerative changes including moderate central canalstenosis at C5-6 and varying degrees of foraminal narrowing as described. - Dictated By: Arun Rai M.D. Electronically Signed By: Arun Rai M.D. Date Signed: 12/30/07 Dee Casillas MD MR ORDERABLES Final Result documented in this encounter Visit Diagnoses Diagnosis Brachial neuritis or radiculitis NOS Brachial neuritis or radiculitis nos documented in this encounter Care Teams Mammography Technologist Relationship Specialty Start Date End Date Marsha Turner MD [address] [place] [address] PCP - General Internal Medicine 05/31/12 documented as of this encounter
--- OUTSIDE RECORDS SUMMARY | 2024-10-11 11:43 | XMS_ITS | Encounter Summary ---
Author Organization [facility] Address [address] [place] [address] Care Team Providers Care It Associate Name Role Phone Marsha Turner MD Primary Care Provider +1- [phone] Encounter Details Date Type Department Care Team (Late st Contact Info) Description 01/03/2008 Outpatient Historical [facility] IN B[facility] Dee Casillas MD [address] [address] Social History Tobacco Use Types Packs/Day Years Used Date Smoking Tobacco: Never Assessed Sex and Gender Information Value Date Recorded Sex Assigned at Not on file Legal Sex Male 6:16 AM MICROBIOLOGY PROFESSOR Gender Identity Not on file Sexual Orientation Not on file documented as of this encounter Plan of Treatment Not on file documented as of this encounter Procedures Procedure Name Priority Date/Time Associated Diagnosis Comments CBC WITH DIFFERENTIAL Routine 01/26/2008 4:13 AM MICROBIOLOGY PROFESSOR COMPREHENSIVE METABOLIC PANEL Routine 01/26/2008 4:13 AM MICROBIOLOGY PROFESSOR CBC WITH DIFFERENTIAL Routine 01/25/2008 3:17 AM MICROBIOLOGY PROFESSOR COMPREHENSIVE METABOLIC PANEL Routine 01/25/2008 3:17 AM MICROBIOLOGY PROFESSOR POC GLUCOSE Routine 01/25/2008 12:12 AM MICROBIOLOGY PROFESSOR POC GLUCOSE Routine 01/24/2008 7:55 PM MICROBIOLOGY PROFESSOR XR FLUORO GREATER THAN 1 HOUR Routine 01/24/2008 4:26 PM MICROBIOLOGY PROFESSOR HEMOGLOBIN AND HEMATOCRIT Stat 01/24/2008 3:06 PM MICROBIOLOGY PROFESSOR ABORH TYPING Stat 01/24/2008 9:50 AM MICROBIOLOGY PROFESSOR TYPE AND CROSSMATCH Stat 01/24/2008 9 :50 AM MICROBIOLOGY PROFESSOR BLOOD BANK ANTIBODY SCREEN Stat 01/24/2008 9:50 AM MICROBIOLOGY PROFESSOR documented in this encounter Results * (ABNORMAL) COMPREHENSIVE METABOLIC PANEL (01/26/2008 4:13 AM MICROBIOLOGY PROFESSOR) ALKALINE PHOSPHATASE 44 25 - 100 U/L [facility] CHLORIDE 108 95 - 110 mEq/L [facility] OSMOLALITY, CALCULATED 281 275 - 295 mOsm/Kg [facility] GLOBULIN (CALC) 2.1(L) 2.4 - 3.9 g/dL [facility] TOTAL PROTEIN 5.1(L) 6.3 - 8.2 g/dL [facility] SODIUM 137 136 - 145 mEq/L [facility] BILIRUBIN TOTAL 0.4 0.3 - 1.2 mg/dL [facility] CO2 26 22 - 32 mmol/l [facility] BUN 7(L) 9 - 20 mg/dL [facility] AST 22 8 - 33 U/L [facility] ALBUMIN/GLOBULIN RATIO 1.4 1.0 - 2.3 [facility] POTASSIUM 3.9 3.5 - 5.0 mEq/L [facility] ANION GAP 7(L) 9 - 20 mEq/L [facility] ALBUMIN 3.0(L) 3.5 - 5.0 g/dL [facility] CREATININE 0.6(L) 0.7 - 1.5 mg/dL [facility] ALT 13 4 - 36 IU/L [facility] CALCIUM 8.1(L) 8.4 - 10.5 mg/dL [facility] GLUCOSE 113(H) 70 - 110 mg/dL [facility] Blood specimen (specimen) 01/26/2008 4:13 AM MICROBIOLOGY PROFESSOR 01/26/2008 4:49 AM MICROBIOLOGY PROFESSOR us Dee Casillas MD CHEMISTRY ORDERABLES Final Resul t Performing Organization Address City/State/[facility] Co de Phone Number INTERFACE SYSTEM Refer to clinic/hospital department [facility] CLIA# [id number] [address] [place] [address] * (ABNORMAL) CBC WITH DIFFERENTIAL (01/26/2008 4:13 AM MICROBIOLOGY PROFESSOR) WBC 5.4 4.8 - 10.8 K/ul [facility] MCH 29.9 27.0 - 34.0 pg [facility] NEUTROPHIL ABSOLUTE 4.0 2.0 - 8.0 K/ul [facility] NEUTROPHILS 72.9 42.2 - 75.2 % [facility] HEMATOCRIT 28.4(L) 41.0 - 53.0 % [facility] EOSINOPHILS 1.3 0.0 - 7.0 % [facility] PLATELETS 187 140 - 440 K/ul [facility] EOSINOPHIL ABSOLUTE 0.1 0.0 - 0.7 K/ul [facility] RBC 3.14(L) 4.60 - 6.20 Mil/ul [facility] LYMPHOCYTES 13.6(L) 24.0 - 44.0 % [facility] MCHC 33.1 30.0 - 35.0 g/dL [facility] LYMPHOCYTE ABSOLUTE 0.7(L) 1.2 - 4.0 K/ul [facility] MCV 90.4 84.0 - 103.0 Fl [facility] MPV 9.0 8.9 - 12.8 Fl [facility] BASOPHILS ABSOLUTE 0.0 0.0 - 0.2 K/ul [facility] BASOPHILS 0.4 0.0 - 1.0 % [facility] HEMOGLOBIN 9.4(L) 14.0 - 18.0 g/dL [facility] RDW 13.9 11.0 - 14.5 % [facility] MONOCYTE ABSOLUTE 0.6 0.1 - 0.6 K/ul [facility] MONOCYTES 11.8(H) 2.0 - 10.0 % [facility] Blood specimen (specimen) 01/26/2008 4:13 AM MICROBIOLOGY PROFESSOR 01/26/2008 4:49 AM MICROBIOLOGY PROFESSOR us Dee Casillas MD HEMATOLOGY ORDERABLES Final Resu lt INTERFACE SYSTEM Refer to clinic/hospital department [facility] CLIA# [id number] [address] [place] [address] * (ABNORMAL) COMPREHENSIVE METABOLIC PANEL (01/25/2008 3:17 AM MICROBIOLOGY PROFESSOR) CALCIUM 7.7(L) 8.4 - 10.5 mg/dL [facility] CREATININE 0.7 0.7 - 1.5 mg/dL [facility] ALT 18 4 - 36 IU/L [facility] GLUCOSE 127(H) 70 - 110 mg/dL [facility] CHLORIDE 111(H) 95 - 110 mEq/L [facility] OSMOLALITY, CALCULATED 283 275 - 295 mOsm/Kg [facility] ALKALINE PHOSPHATASE 47 25 - 100 U/L [facility] GLOBULIN (CALC) 1.8(L) 2.4 - 3.9 g/dL [facility] SODIUM 138 136 - 145 mEq/L [facility] BILIRUBIN TOTAL 0.4 0.3 - 1.2 mg/dL [facility] TOTAL PROTEIN 4.8(L) 6.3 - 8.2 g/dL [facility] BUN 8(L) 9 - 20 mg/dL [facility] AST 21 8 - 33 U/L [facility] CO2 27 22 - 32 mmol/l [facility] ALBUMIN/GLOBULIN RATIO 1.7 1.0 - 2.3 [facility] ALBUMIN 3.0(L) 3.5 - 5.0 g/dL [facility] POTASSIUM 3.7 3.5 - 5.0 mEq/L [facility] ANION GAP 4(L) 9 - 20 mEq/L [facility] Blood specimen (specimen) 01/25/2008 3:17 AM MICROBIOLOGY PROFESSOR 01/25/2008 3:41 AM MICROBIOLOGY PROFESSOR us Dee Casillas MD CHEMISTRY ORDERABLES Final Resul t INTERFACE SYSTEM Refer to clinic/hospital department [facility] CLIA# [id number] [address] [place] [address] * (ABNORMAL) CBC WITH DIFFERENTIAL (01/25/2008 3:17 AM MICROBIOLOGY PROFESSOR) MCV 90.4 84.0 - 103.0 Fl [facility] MPV 9.0 8.9 - 12.8 Fl [facility] BASOPHILS 0.6 0.0 - 1.0 % [facility] BASOPHILS ABSOLUTE 0.0 0.0 - 0.2 K/ul [facility] HEMOGLOBIN 9.1(L) 14.0 - 18.0 g/dL [facility] RDW 14.2 11.0 - 14.5 % [facility] MONOCYTES 10.1(H) 2.0 - 10.0 % [facility] MONOCYTE ABSOLUTE 0.5 0.1 - 0.6 K/ul [facility] WBC 5.1 4.8 - 10.8 K/ul [facility] MCH 30.2 27.0 - 34.0 pg [facility] NEUTROPHILS 73.7 42.2 - 75.2 % [facility] NEUTROPHIL ABSOLUTE 3.7 2.0 - 8.0 K/ul [facility] HEMATOCRIT 27.2(L) 41.0 - 53.0 % [facility] PLATELETS 179 140 - 440 K/ul [facility] EOSINOPHIL ABSOLUTE 0.0 0.0 - 0.7 K/ul [facility] EOSINOPHILS 0.6 0.0 - 7.0 % [facility] RBC 3.01(L) 4.60 - 6.20 Mil/ul [facility] LYMPHOCYTES 15.0(L) 24.0 - 44.0 % [facility] MCHC 33.5 30.0 - 35.0 g/dL [facility] LYMPHOCYTE ABSOLUTE 0.8(L) 1.2 - 4.0 K/ul [facility] Blood specimen (specimen) 01/25/2008 3:17 AM MICROBIOLOGY PROFESSOR 01/25/2008 3:41 AM MICROBIOLOGY PROFESSOR Dee Casillas MD HEMATOLOGY ORDERABLES Final Resu lt Performing Organization Address City/[facility] de Phone Number INTERFACE SYSTEM Refer to clinic/hospital department [facility] CLIA# [id number] [address] [place] [address] * (ABNORMAL) POC GLUCOSE (01/25/2008 12:12 AM MICROBIOLOGY PROFESSOR) GLUCOSE POC 131(H) 60 - 100 mg/dL [facility] Venous blood specimen (specimen) 01/25/2008 12:12 AM MICROBIOLOGY PROFESSOR 01/25/2008 2:51 AM MICROBIOLOGY PROFESSOR Dee Casillas MD POINT OF CARE TESTING Final Resu lt Performing Organization Address [facility] Phone Number INTERFACE SYSTEM Refer to clinic/hospital department [facility] CLIA# [id number] [address] [place] [address] * (ABNORMAL) POC GLUCOSE (01/24/2008 7:55 PM MICROBIOLOGY PROFESSOR) GLUCOSE POC 129(H) 60 - 100 mg/dL [facility] Venous blood specimen (specimen) 01/24/2008 7:55 PM MICROBIOLOGY PROFESSOR 01/25/2008 2:51 AM MICROBIOLOGY PROFESSOR Result [facility] us Dee Casillas MD POINT OF CARE TESTING Final Resu lt Performing Organization Address [facility] de Phone Number INTERFACE SYSTEM Refer to clinic/hospital department [facility] CLIA# [id number] [address] [place] [address] * XR FLUORO > 1 HOUR (01/24/2008 4:26 PM MICROBIOLOGY PROFESSOR) Anatomical Region Laterality Modality Other 01/24/2008 4:26 PM MICROBIOLOGY PROFESSOR Narrative 01/24/2008 4:26 PM MICROBIOLOGY PROFESSOR Finalized by interface cleanup utility. No report expected. Procedure Note 03/25/2008 Finalized by interface cleanup utility. No report expected. us Dee Casillas MD DIAGNOSTIC IMAGING ORDERABLES Fi nal Result * (ABNORMAL) HEMOGLOBIN AND HEMATOCRIT (01/24/2008 3:06 PM MICROBIOLOGY PROFESSOR) HEMOGLOBIN 9.9(L) 14.0 - 18.0 g/dL [facility] HEMATOCRIT 29.2(L) 41.0 - 53.0 % [facility] Blood specimen (specimen) 01/24/2008 3:06 PM MICROBIOLOGY PROFESSOR 01/24/2008 3:06 PM MICROBIOLOGY PROFESSOR Result [facility] us Dee Casillas MD HEMATOLOGY ORDERABLES Final Resu lt Performing Organization Address [facility] de Phone Number INTERFACE SYSTEM Refer to clinic/hospital department [facility] CLIA# [id number] [address] [place] [address] * TYPE AND CROSSMATCH (01/24/2008 9:50 AM MICROBIOLOGY PROFESSOR) BLOOD BANK PRODUCT INTERFACE SYSTEM Blood specimen (specimen) 01/24/2008 9:50 AM MICROBIOLOGY PROFESSOR 01/24/2008 9:53 AM MICROBIOLOGY PROFESSOR Result [facility] Dee Casillas MD BLOOD BANK ORDERABLES Final Resu lt Performing Organization Address City/[facility] Co de Phone Number INTERFACE SYSTEM Refer to clinic/hospital department * ANTIBODY SCREEN (01/24/2008 9:50 AM MICROBIOLOGY PROFESSOR) ANTIBODY SCREEN Negative [facility] Blood specimen (specimen) 01/24/2008 9:50 AM MICROBIOLOGY PROFESSOR 01/24/2008 9:53 AM MICROBIOLOGY PROFESSOR Dee Casillas MD BLOOD BANK ORDERABLES Final Resu lt Performing Organization Address [facility] de Phone Number INTERFACE SYSTEM Refer to clinic/hospital department [facility] CLIA# [id number] [address] [place] [address] * ABORH TYPING (01/24/2008 9:50 AM MICROBIOLOGY PROFESSOR) ABO/RH TYPE A Positive [facility] Blood specimen (specimen) 01/24/2008 9:50 AM MICROBIOLOGY PROFESSOR 01/24/2008 9:53 AM MICROBIOLOGY PROFESSOR Dee Casillas MD BLOOD BANK ORDERABLES Final Resu lt Performing Organization Address [facility] de Phone Number INTERFACE SYSTEM Refer to clinic/hospital department [facility] CLIA# [id number] [address] [place] [address] documented in this encounter Visit Diagnoses Not on filedocumented in this encounter Care Teams It Associate Relationship Specialty Start Date End Date Marsha Turner MD [address] [place] [address] PCP - General Internal Medicine 05/31/12 documented as of this encounter
--- OUTSIDE RECORDS SUMMARY | 2024-10-11 11:43 | XMS_ITS | Encounter Summary ---
Author Organization [facility] Address [address] [place] [address] Care Team Providers Care Molder Bench Name Role Phone Marsha Turner MD Primary Care Provider +1- [phone] Encounter Details Date Type Department Care Team (Latest Contact Info) Description 11/30/2005 Outpatient Historical [facility] [place] [address] [place] [address] David Teresa MD NO ADDRESS ON FILE Cough (Primary Dx); Other Dyspnea and Respiratory Abnormality Social History Tobacco Use Types Packs/Day Years Used Date Smoking Tobacco: Never Assessed Sex and Gender Information Value Date Recorded Sex Assigned at Not on file Legal Sex Male 6:16 AM SENIOR LOAN OFFICER Gender Identity Not on file Sexual Orientation Not on file documented as of this encounter Plan of Treatment Not on file documented as of this encounter Visit Diagnoses Diagnosis Cough- Primary Other dyspnea and respiratory abnormality documented in this encounter Care Teams Molder Bench Relationship Specialty Start Date End Date Marsha Turner MD [address] [place], [place] [address] PCP - General Internal Medicine 05/31/12 documented as of this encounter
--- OUTSIDE RECORDS SUMMARY | 2024-10-11 11:43 | XMS_ITS | Clinical Summary ---
Author Organization [facility] Address [address] [place] [address] Care Team Providers Care Oiling Machine Operator Name Role Phone Marsha Turner MD Primary Care Provider +1- [phone] Allergies Active Allergy Reactions Criticality Noted Date Comments Adhesive Rash Low 06/22/2012 Metoclopramide Other (See Comments) Low 03/05/2008 hyper Morphine Hives High 03/05/2008 Tamsulosin Hypotension,Hypertension Medium 06/21/2012 Zolpidem Abdominal Pain Low 03/05/2008 hyper Medications cetirizine (ZYRTEC) 10 mg Oral tablet Take 10 mg by mouth daily before breakfast . Active simvastatin (ZOCOR) 5 mg Oral tablet Take 5 mg by mouth Daily LATE. Active ketoconazole (NIZORAL) 2 % Topical Sham daily. Active leflunomide (ARAVA) 20 mg Tablet daily at bedtime . 5 Active oxybutynin chloride (DITROPAN) 5 mg tablet Take 5 mg by mouth daily at bedtime . Active hydrocortisone (HYTONE) 2.5 % Cream Apply to affected area 2 times daily. Active cpap medical deviceIndications :Obstructive sleep apnea Auto titrating CPAP at a pressure of 15-20 CWP with heated humidifier, using a full face mask, headgear q 6 mo; Mask Only q 3 mo; 1 cushion q mo; Tubing (Heated Yes; Non-heated No) q 3 mo; H20 Chamber q 6 mo; Chinstrap q 6 mo; Filters (disp 2/mo, non disp q 6 mo) Length of need:99 mo. DX: FUAD (G47.33) ANNUAL RX REFILL for supplies. 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 9 Active liothyronine (CYTOMEL) 5 mcg Tablet 2 Tablets daily sales and marketing intern. 9 Active acetaminophen (TYLENOL) 325 mg tablet Take 2 Tablets (650 mg) by mouth every 6 hours as needed for Other (See Comment) (See admin instructions). 9 Active albuterol (PROVENTIL,VENTOL IN) 2.5 mg /3 mL (0.083 %) Solution for Nebulization Take 3 mL (2.5 mg) by inhalation every 4 hours as needed for Shortness of Breath. 3 mL 9 Active amLODIPine (NORVASC) 2.5 mg tablet Take 1 Tablet (2.5 mg) by mouth daily. 30 Tablet 9 Active carvedilol (COREG) 12.5 mg tablet Take 1 Tablet (12.5 mg) by mouth 2 times daily with meals. 60 Tablet 9 Active cholecalciferol, vitamin D3, 1,000 unit Take 1 Tablet (1,000 Units) by mouth daily. 30 Tablet 9 Active docusate sodium (COLACE) 100 mg capsule Take 1 Capsule (100 mg) by mouth 2 times daily as needed for Constipation. 9 Active gabapentin (NEURONTIN) 300 mg capsule Take 1 Capsule (300 mg) by mouth every 8 hours Has medication at home. 10 Capsule 9 Active lisinopril (PRINIVIL) 10 mg tablet Take 1 Tablet (10 mg) by mouth 2 times daily. 60 Tablet 9 Active polysaccharide iron complex (FERREX 150,IFEREX 150) 150 mg iron capsule Take 1 Capsule (150 mg) by mouth daily. 30 Capsule 9 Active atorvastatin (LIPITOR) 40 mg tablet 0 Active diclofenac sodium (VOLTAREN) 1 % gel 0 Active EnbreL SureClick 50 mg/mL (1 mL) Pen Injector 0 Active isosorbide mononitrate (IMDUR) 30 mg Extended Release 24 hour tablet 0 Active Xeljanz 5 mg Tablet 0 Active omeprazole magnesium (PRILOSEC ORAL) Take by mouth. Active bi-level machineIndication s:FUAD treated with BiPAP Auto titrating bilevel with max IP 15 / min EP 5 and PS 4 CWP with heated humidifier. Length of Need: 99 mo full face with headgear 1 per 6 mo, mask only 1 per 3 mo,1 cushions per mo, Tubing heated 1 per 3 mo, water chamber 1 per 6 months, chin strap 1 per 6 months, filters disposable 2 per month, filters reusable 1 per 6 months DX: G47.33 1 Each 1 Active Active Problems Problem Noted Date Diagnosed [...] without myelopathy 04/03/19 14 Back pain 12/26/2010 Resolved Problems Problem Noted Date Diagnosed Date Resolved Date Melena 01/12/2013 09/02/2017 Immunizations Immunization Administration Dates Next Due Influenza Seasonal Unspecified Formulation IM Family History Medical History Relation Name Comments Cancer Brother 1 Prostate Rashes/Skin Problems Brother 1 Unknown Brother 2 Heart Disease Brother 3 Kelton [place] Other Brother 3 Kelton Respiratory Disease Brother 3 Kelton Diabetes Daughter 1 Ivonne Other Daughter 1 Ivonne Fibromyalgia Thyroid Disease Daughter 1 Ivonne Other Daughter 2 Zoe MS Healthy Daughter 3 Judith Heart Disease Father Other Father Rashes/Skin Problems Maternal Uncle Cancer Mother Stroke Mother Cancer Sister 1 Thyroid Healthy Sister 2 Consuelo Amblyopia Neg Hx Blindness Neg Hx Cataract Neg Hx Colon Cancer Neg Hx Detachment/Tears Neg Hx Glaucoma Neg Hx Macular Degen Neg Hx Strabismus Neg Hx Relation Name Status Comments Brother 1 (Age 67) Brother 2 (Age 70) Brother 3 Kelton Alive Daughter 1 Ivonne Alive Daughter 2 Zoe Alive Daughter 3 Judith Alive Father (Age 94) Maternal Uncle Mother [...] on file 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 Gender Identity Not on file Sexual Orientation Not on file Occupation Industry Job Start Date Job End Date Not on file Not on file Not on file Not on file Last Filed Vital Signs Vital Sign Reading Time Taken Comments Blood Pressure 122/70 06/18/2020 6:14 AM CDT Pulse 82 06/17/2020 12:51 PM CDT Temperature 36.9 C (98.4 F) 12/08/2019 10:15 AM CDT Respiratory Rate 20 12/08/2019 10:15 AM CDT Oxygen Saturation 94% 06/17/2020 12:51 PM CDT Inhaled Oxygen Concentration - - Weight 116.6 kg (257 lb) 06/17/2020 12:51 PM CDT Height 177.8 cm (5' 10 ) 06/17/2020 12:51 PM CDT Body Mass Index 36.88 06/17/2020 12:51 PM CDT Plan of Treatment Health Maintenance Due Date Last Done Comments DTAP/TDAP/TD VACCINES (1 - Tdap) 12/04/1962 PNEUMOCOCCAL VACCINE 50+ YEA RS (1 of 2 - PCV) 12/04/1962 ZOSTER VACCINE (1 of 2) 12/04/1993 RSV VACCINE (60+ or ) (1 - 1-dose 75+ series) 12/04/2018 INFLUENZA VACCINE (#1) 2024 01/01/2013 COLORECTAL SCREENING Discontinued 01/24/2013, 01/13/2013, 01/12/2013, Additional history exists Colorectal Cancer Screening Discontinued FIT-DNA Q 3 years Discontinued FIT/FOBT Q 1 year Discontinued Flex Sig/CT Colonography Q 5 years Discontinued Medical Devices Implanted Type Area Clinical Education Specialist Device Identifier Shelf Expiration Date Model / Serial / Lot Vitoss Foam Ba 1.2ml Implanted:Qty: 1 on 04/18/2013 at [facility] Biological N/A: Spine Cervical Anterior LISA- SPINE 10/13/2014 / NA / [id number] Quin[place] C Stand Alone Cage [id number] Implanted:Qty: 1 on 04/18/2013 by John Castillo MD at [facility] Cage N/A: Spine Cervical Anterior LISA- SPINE [id number] / LD [id number] / NA Cement Palacos R+G [id number] - Sna Implanted:Qty: 2 on 09/29/2012 at [facility] Cement Left: Knee SHIRA [employer] INC 01/13/201688-9953-253-01 / NA / NA Hemostatic Gelfoam Powder 1gm [id number] - [id number] Implanted:Qty: 1 on 05/20/2015 by Dee Casillas MD at [facility] Hemostatic N/A: Spine Thoracic PFIZER- PHARM 10/12/2017 [id number] / / [id number] Hemostatic Gelfoam Powder 1gm [id number] - [id number] Implanted:Qty: 1 on 09/14/2017 by Dee Casillas MD at [facility] Hemostatic N/A: Back PFIZER- PHARM 11/13/2019 [id number] / / [id number] Gel-Flow Nt Implanted:Qty: 1 on 08/12/2018 by Dee Casillas MD at [facility] Hemostatic N/A: Spine Cervical Anterior PFIZER- PHARMACIA AND UPJOHN I 08/04/2019 / / [id number] Bearing Tib Vng 10mm 79/83mm 590673 - [id number] Implanted:Qty: 1 on 09/29/2012 at [facility] Knee Left: Knee BIOMET INC 05/12/2017 744530 / / [id number] Comp Fem Vng Ps Sz72.5 Lt 362395 - [id number] Implanted:Qty: 1 on 09/29/2012 at [facility] Knee Left: Knee BIOMET INC 06/12/2022 727040 / / [id number] Comp Tib Cocr Finned 83mm 216027 - [id number] Implanted:Qty: 1 on 09/29/2012 at [facility] Knee Left: Knee BIOMET INC 03/14/2022 555397 / / [id number] Standard Patella Implanted:Qty: 1 on 09/29/2012 by Dylon Abreu MD at [facility] Knee Left: Knee BIOMET- ORTHOPED[employer], INC 07/12/2017 044253 / / [id number] Plate Hybrid Cerv 12mm 60804257 - Sld [id number] Implanted:Qty: 1 on 04/18/2013 at [facility] Plate N/A: Spine Cervical Anterior LISA- SPINE [id number] / LD [id number] / NA Issac Lgcy Crv Ti 5.3f269nx 6270532 - [id number] Implanted:Qty: 1 on 09/14/2017 by Dee Casillas MD at [facility] Issac N/A: Back MEDTRONIC- SOFAMOR DANEK 09/15/2019 6888192 / / [id number] Issac Lgcy Crv Ti 5.3q669ur 3462353 - [id number] Implanted:Qty: 1 on 09/14/2017 by Dee Casillas MD at [facility] Issac N/A: Back MEDTRONIC- SOFAMOR DANEK 09/15/2019 9365206 / / [id number] Issac Std 3.9t039ei 3550663 - [id number] Implanted:Qty: 2 on 08/12/2018 by Dee Casillas MD at [facility] Issac N/A: Spine Cervical Anterior MEDTR[employer]IC- SOFAMOR DANEK 7717243 / [id number] / Screw Rh Sd Fa 4.0x14mm 20433003 - Sld [id number] Implanted:Qty: 1 on 04/18/2013 at [facility] Screw N/A: Spine Cervical Anterior LISA- SPINE 00051598 / LD [id number] / NA Screw Sd 3.5x10mm 30416199 - Sld [id number] Implanted:Qty: 2 on 04/18/2013 at [facility] Screw N/A: Spine Cervical Anterior LISA- SPINE 19283234 / LD [id number] / NA Screw Rh St Va 4.0x14mm 30001580 - Sld [id number] Implanted:Qty: 2 on 04/18/2013 at [facility] Screw N/A: Spine Cervical Anterior LISA- SPINE 48946502 / LD [id number] / NA Screw Rh St Fa 4.0x14mm 07969448 - Sld [id number] Implanted:Qty: 1 on 04/18/2013 at [facility] Screw N/A: Spine Cervical Anterior LISA- SPINE 07026391 / LD [id number] / NA Screw Legacy Ma 6.5x50mm 37219629 - [id number] Implanted:Qty: 1 on 09/14/2017 by Dee Casillas MD at [facility] Screw N/A: Back MEDTRONIC- SOFAMOR DANEK 14305763 / / [id number] Screw Legacy Ma 6.5x50mm 01736286 - [id number] Implanted:Qty: 1 on 09/14/2017 by Dee Casillas MD at [facility] Screw N/A: Back MEDTRONIC- SOFAMOR DANEK 03720182 / / [id number] Set Screw Break Off Ti 3652797 - [id number] Implanted:Qty: 1 on 09/14/2017 by Dee Casillas MD at [facility] Screw N/A: Back MEDTRONIC- SOFAMOR DANEK 5771965 / / [id number] Set Screw Break Off Ti 7739122 - [id number] Implanted:Qty: 1 on 09/14/2017 by Dee Casillas MD at [facility] Screw N/A: Back MEDTRONIC- SOFAMOR DANEK 1887185 / / [id number] Set Screw Break Off Ti 3613420 - [id number] Implanted:Qty: 1 on 09/14/2017 by Dee Casillas MD at [facility] Screw N/A: Back MEDTRONIC- SOFAMOR DANEK 3868239 / / [id number] Set Screw Break Off Ti 2218942 - [id number] Implanted:Qty: 1 on 09/14/2017 by Dee Casillas MD at [facility] Screw N/A: Back MEDTRONIC- SOFAMOR DANEK 4914253 / / [id number] Set Screw Break Off Ti 2188396 - [id number] Implanted:Qty: 1 on 09/14/2017 by Dee Casillas MD at [facility] Screw N/A: Back MEDTRONIC- SOFAMOR DANEK 0786554 / / [id number] Screw Legacy Ma 7.5x50mm 81551144 - [id number] Implanted:Qty: 1 on 09/14/2017 by Dee Casillas MD at [facility] Screw N/A: Back MEDTRONIC- SOFAMOR DANEK 43841495 / / [id number] Screw Legacy Ma 7.5x50mm 07755199 - [id number] Implanted:Qty: 1 on 09/14/2017 by Dee Casillas MD at [facility] Screw N/A: Back MEDTRONIC- SOFAMOR DANEK 70644854 / / [id number] Set Screw Break Off Ti 9553948 - [id number] Implanted:Qty: 1 on 09/14/2017 by Dee Casillas MD at [facility] Screw N/A: Back MEDTRONIC- SOFAMOR DANEK 2828761 / / [id number] Set Screw Break Off Ti 1625199 - [id number] Implanted:Qty: 1 on 09/14/2017 by Dee Casillas MD at [facility] Screw N/A: Back MEDTRONIC- SOFAMOR DANEK 3431824 / / [id number] Set Screw Break Off Ti 7840341 - [id number] Implanted:Qty: 1 on 09/14/2017 by Dee Casillas MD at [facility] Screw N/A: Back MEDTRONIC- SOFAMOR DANEK 7944582 / / [id number] Infinity Screw Implanted:Qty: 7 on 08/12/2018 by Dee Casillas MD at [facility] Screw N/A: Spine Cervical Anterior MEDTRONIC- NEUROSURGERY 5641695 / [id number] / Description:PER INVOICE Infinity Screw Implanted:Qty: 2 on 08/12/2018 by Dee Casillas MD at [facility] Screw N/A: Spine Cervical Anterior MEDTRONIC- NEUROSURGERY 2029578 / [id number] / Description:PER INVOICE Infinity Screw Implanted:Qty: 2 on 08/12/2018 by Dee Casillas MD at [facility] Screw N/A: Spine Cervical Anterior MEDTRONIC- NEUROSURGERY 2923053 / [id number] / Description:PER INVOICE Infinity Set Screws Implanted:Qty: 11 on 08/12/2018 by Dee Casillas MD at [facility] Screw N/A: Spine Cervical Anterior 3890926 / [id number] / Description:PER INVOICE Spacer As [id number] 12343275 - Sld [id number] Implanted:Qty: 1 on 04/18/2013 at [facility] Spacer N/A: Spine Cervical Anterior LISA- SPINE 49604559 / LD [id number] / NA Crosslink Lp Mltspn L=1.75-2.15 811-322 - [id number] Implanted:Qty: 1 on 09/14/2017 by Dee Casillas MD at [facility] Spine N/A: Back MEDTRONIC- SOFAMOR DANEK 09/15/2019 811-322 / / [id number] Description:09/17 inv pricing Readigraft Canc Chips 30ml Can30 14bp - [id number] Implanted:Qty: 1 on 09/14/2017 by Dee Casillas MD at [facility] Tissue N/A: Back LIFENET 08/20/2019 CAN30 14BP / / [id number] Putty Bio Dbm 10ml 2288084 - [id number] Implanted:Qty: 1 on 09/14/2017 by Dee Casillas MD at [facility] Tissue N/A: Back LISA- HOWMEDICA INT INC 05/27/2019 3562748 / / [id number] Putty Bio Dbm 10ml 4109380 - [id number] Implanted:Qty: 1 on 09/14/2017 by Dee Casillas MD at [facility] Tissue N/A: Back LISA- HOWMEDICA INT INC 05/16/2019 8340851 / / [id number] Putty Bio Dbm 10ml 6306690 - [id number] Implanted:Qty: 1 on 08/12/2018 by Dee Casillas MD at [facility] Tissue N/A: Spine Cervical Anterior LISA- HOWMEDICA INT INC 04/13/2020 4103039 / / [id number] Putty Bio Dbm 10ml 3534332 - [id number] Implanted:Qty: 1 on 08/12/2018 by Dee Casillas MD at [facility] Tissue N/A: Spine Cervical Anterior LISA- HOWMEDICA INT INC 04/13/2020 9854976 / / [id number] Explanted Type Area Clinical Education Specialist Device Identifier Shelf Expiration Date Model / Serial / Lot Stim Spnl Cord Precision Spectra [id number] - [id number] Implanted:Qty: 1 on 05/20/2015 by Dee Casillas MD at [facility] Explanted:Qty: 1 on 06/15/2016 by Dee Casillas MD at [facility] Neuro Right: Spine Thoracic [employer]- NEURO MODULATION 05/02/2017 OK-1132 / / [id number] Infinity Set Screws Explanted:Qty: 2 on 08/12/2018 at [facility] Screw N/A: Spine Cervical Anterior MEDTRONIC- NEUROSURGERY 6945539 / [id number] / Description:PER INVOICE Cover Edge 32 70cm 4x8 Certified Pedorthotist Kit [id number] Implanted:Qty: 1 on 05/20/2015 by Dee Casillas MD at [facility] Explanted:Qty: 1 on 06/15/2016 by Dee Casillas MD at [facility] N/A: Spine Thoracic [employer] INC 02/11/2017 / [id number] / [id number] Set Screws X4, Blockers X4, And 2 Rods Explanted:Qty: 1 on 09/14/2017 by Dee Casillas MD at [facility] N/A: Spine Cervical Anterior Insurance MEDICARE PART A AND B GENERIC PAYOR RX [facility] Medicare Part D [facility] MEDICARE PART A AND B Advance Directives For more information, please contact: [phone] * Full Code (Latest Code Status on File) Date Activated Date Inactivated Comments 08/16/2018 5:53 PM 08/24/2018 12:57 PM * Full Code Date Activated Date Inactivated Comments 08/12/2018 7:23 PM 08/16/2018 5:32 PM * Full Code Date Activated Date Inactivated Comments 09/14/2017 2:33 PM 09/17/2017 3:06 PM * Full Code Date Activated Date Inactivated Comments 09/14/2017 7:53 AM 09/14/2017 2:33 PM * Full Code Date Activated Date Inactivated Comments 06/15/2016 9:28 AM 06/15/2016 5:17 PM Care Teams Oiling Machine Operator Relationship Specialty Start Date End Date Marsha Turner MD [address] [place] [address] PCP - General Internal Medicine 05/31/12
--- OUTSIDE RECORDS SUMMARY | 2024-10-11 11:43 | XMS_ITS | Encounter Summary ---
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
--- OUTSIDE RECORDS SUMMARY | 2024-10-11 11:43 | XMS_ITS | Encounter Summary ---
Author Organization [facility] Address [address] [place] [address] Care Team Providers Care Small Brake Form Operator Name Role Phone Marsha Turner MD Primary Care Provider +1- [phone] Encounter Details Date Type Department Care Team (Late st Contact Info) Description 02/06/2008 Outpatient Historical [facility] DEFAULT DEPARTMENT Dee Casillas MD [address] [id number] Social History Tobacco Use Types Packs/Day Years Used Date Smoking Tobacco: Never Assessed Sex and Gender Information Value Date Recorded Sex Assigned at Not on file 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
--- OUTSIDE RECORDS SUMMARY | 2024-10-11 11:43 | XMS_ITS | Encounter Summary ---
Author Organization [facility] Address [address] [place] [address] Care Team Providers Care Hris Analyst Name Role Phone Marsha Turner MD Primary Care Provider +1- [phone] Encounter Details Date Type Department Care Team (Latest Contact Info) Description 03/02/2008 Outpatient 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 Gender Identity Not on file Sexual Orientation Not on file documented as of this encounter Plan of Treatment Not on file documented as of this encounter Procedures Procedure Name Priority Date/Time Associated Diagnosis Comments XR LUMBAR SPINE 2 OR 3 VW Routine 03/05/2008 1:38 PM ROOFER GYPSUM documented in this encounter Results * XR LUMBAR SPINE 2 OR 3 VW (03/05/2008 1:38 PM ROOFER GYPSUM) Anatomical Region Laterality Modality Spine Other 03/05/2008 1:38 PM ROOFER GYPSUM Narrative 03/06/2008 10:42 AM ROOFER GYPSUM Exam: Spine - Lumbar Date/Time of Exam: Mar 05, 2008 1:38:29 PM History: l3/4. Findings: Comparison study 02/06/08. Posterior decompression and fusion at L3-L4 without apparent hardware complication. Laminectomy defects more distally of lumbar spine. Vertebral segments intact. No subluxation. Overall alignment of spine stable. Stable demonstration of small marginal osteophytes at multilevels of spine. Impression: Stable exam. - Dictated By: Nolan Leal M.D. Electronically Signed By: Nolan Leal M.D. Date Signed: 03/06/08 SDM Procedure Note Nolan Leal MD - 03/06/2008 Exam: Spine - Lumbar Date/Time of Exam: Mar 05, 2008 1:38:29 PM History: l3/4. Findings: Comparison study 02/06/08. Posterior decompression and fusionat L3-L4 without apparent hardware complication. Laminectomy defects more distally of lumbar spine.Vertebral segments intact. No subluxation. Overall alignment of spine stable. Stable demonstration ofsmall marginal osteophytes at multilevels of spine. Impression: Stable exam. - Dictated By: Nolan Leal M.D. Electronically Signed By: Nolan Leal M.D. Date Signed: 03/06/08 SDM [facility] ORDER[facility] Final Result documented in this encounter Visit Diagnoses Diagnosis Headache(784.0) Headache Cervicalgia Spinal stenosis in cervical region Cervical spondylosis without myelopathy documented in this encounter Care Teams Hris Analyst Relationship Specialty Start Date End Date Marsha Turner MD [address] [place] [address] PCP - General Internal Medicine 05/31/12 documented as of this encounter
--- OUTSIDE RECORDS SUMMARY | 2024-10-11 11:43 | XMS_ITS | Encounter Summary ---
Author Organization [facility] Address [address] [place] [address] Care Team Providers Care Regulatory Affairs Internship Name Role Phone Marsha Turner MD Primary Care Provider +1- [phone] Encounter Details Date Type Department Care Team (Latest Contact Info) Description 05/14/2005 Outpatient Historical [facility] [place] [address] [place] [address] Abilio Bagley MD [address] [place] [address] ESOPHAGEAL REFLUX (Primary Dx) Social History Tobacco Use Types Packs/Day Years Used Date Smoking Tobacco: Never Assessed Sex and Gender Information Value Date Recorded Sex Assigned at Not on file 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
--- OUTSIDE RECORDS SUMMARY | 2024-10-11 11:43 | XMS_ITS | Encounter Summary ---
Author Organization [facility] Address [address] [place] [address] Care Team Providers Care Mail Order Biller Name Role Phone Marsha Turner MD Primary Care Provider +1- [phone] Encounter Details Date Type Department Care Team (Latest Contact Info) Description 06/18/2006 Outpatient Historical [facility] [address] 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
--- OUTSIDE RECORDS SUMMARY | 2024-10-11 11:43 | XMS_ITS | Encounter Summary ---
Author Organization [facility] Address [address] [place] [address] Care Team Providers Care Ordained Minister Name Role Phone Marsha Turner MD Primary Care Provider +1- [phone] Encounter Details Date Type Department Care Team (Late st Contact Info) Description 12/12/2007 Outpatient Historical [facility] Pain Management Procedures [address] 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 No report expected. Procedure Note 03/25/2008 Finalized by interface [email or web address] utility. No report expected. us Kamar Leach MD DIAGNOSTIC IMAGING ORDERAB LES Final Result documented in this encounter Visit Diagnoses Diagnosis Unspecified asthma(493.90) Unspecified asthma Arthropathy, unspecified, site unspecified Diaphragmatic hernia without mention of obstruction or gangrene Personal history of unspecified circulatory disease Unspecified joint replacement by other means Personal history of allergy to analgesic agent documented in this encounter Care Teams Ordained Minister Relationship Specialty Start Date End Date Marsha Turner MD [address] [place] [address] PCP - General Internal Medicine 05/31/12 documented as of this encounter
--- OUTSIDE RECORDS SUMMARY | 2024-10-11 11:43 | XMS_ITS | Encounter Summary ---
Author Organization [facility] Address [address] [place] [address] Care Team Providers Care Internet Media Planner Name Role Phone Marsha Turner MD Primary Care Provider +1- [phone] Encounter Details Date Type Department Care Team (Late st Contact Info) Description 07/25/2007 Outpatient [facility] [place] [address] [facility] [address] [place] [address] Dequan Tellez MD NO ADDRESS ON FILE Unilat Ing Hernia Social History Tobacco Use Types Packs/Day Years Used Date Smoking Tobacco: Never Assessed Sex and Gender Information Value Date Recorded Sex Assigned at Not on file 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
--- OUTSIDE RECORDS SUMMARY | 2024-10-11 11:43 | XMS_ITS | Encounter Summary ---
Author Organization [facility] Address [address] [place] [address] Care Team Providers Care Separator Operator Shellfish Meats Name Role Phone Marsha Turner MD Primary Care Provider +1- [phone] Encounter Details Date Type Department Care Team (Late st Contact Info) Description 09/23/2005 Outpatient Historical [facility] Imaging Services-[facility] Abraham [place] [address] [place] [phone] Thomas Mack MD NO ADDRESS ON FILE Bilat Ing Hernia (Primary Dx) Social History Tobacco Use Types Packs/Day Years Used Date Smoking Tobacco: Never Assessed Sex and Gender Information Value Date Recorded Sex Assigned at Not on file Legal Sex Male 6:16 AM BAIL BOND AGENT Gender Identity Not on file Sexual Orientation Not on file documented as of this encounter Plan of Treatment Not on file documented as of this encounter Visit Diagnoses Diagnosis Inguinal hernia without mention of obstruction or gangrene, bilateral, (not specified as recurrent)- Primary documented in this encounter Care Teams Separator Operator Shellfish Meats Relationship Specialty Start Date End Date Marsha Turner MD [address] [place] [address] PCP - General Internal Medicine 05/31/12 documented as of this encounter
--- OUTSIDE RECORDS SUMMARY | 2024-10-11 11:43 | XMS_ITS | Encounter Summary ---
Author Organization [facility] Address [address] [place] [address] Care Team Providers Care Garbage Collection Supervisor Name Role Phone Marsha Turner MD Primary Care Provider +1- [phone] Encounter Details Date Type Department Care Team (Latest Contact Info) Description 06/23/2005 Outpatient Historical [facility] Allergy and Asthma- [place] [address] [place] [address] Jalen Rutledge MD NO ADDRESS ON FILE Chronic Rhinitis (Primary Dx); Other Dyspnea and Respiratory Abnormality Social History Tobacco Use Types Packs/Day Years Used Date Smoking Tobacco: Never Assessed Sex and Gender Information Value Date Recorded Sex Assigned at Not on file 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
--- OUTSIDE RECORDS SUMMARY | 2024-10-11 11:43 | XMS_ITS | Encounter Summary ---
Author Organization [facility] Address [address] [place] [address] Care Team Providers Care Career Technology Teacher Name Role Phone Marsha Turner MD Primary Care Provider +1- [phone] Encounter Details Date Type Department Care Team (Latest Contact Info) Description 10/05/[address] 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
--- OUTSIDE RECORDS SUMMARY | 2024-10-11 11:43 | XMS_ITS | Encounter Summary ---
Author Organization [facility] Address [address] [place] [address] Care Team Providers Care Pond Tender Name Role Phone Marsha Turner MD Primary Care Provider +1- [phone] Encounter Details Date Type Department Care Team (Latest Contact Info) Description 03/29/2007 Outpatient Historical [facility] Operating Room [address] [place] [phone] Thomas Mack MD NO ADDRESS ON FILE Viral Warts, Unspecified; Congestive Heart Failure, Unspecified (CMS/HCC); Unspecified Essential Hypertension; Unspecified Arthropathy, Site Unspecified; Personal History of Other Diseases of Circulatory System; Personal History of Malignant Neoplasm of Prostate; Personal History of Allergy to Analgesic Agent; Personal History of Allergy to Other Specified Medicinal Agents Social History Tobacco Use Types Packs/Day Years Used Date Smoking Tobacco: Never Assessed Sex and Gender Information Value Date Recorded Sex Assigned at Not on file Legal 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 Male 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 Gender Identity Not on file Sexual Orientation Not on file documented as of this encounter Plan of Treatment Not on file documented as of this encounter Visit Diagnoses Diagnosis Viral warts, unspecified Congestive heart failure, unspecified (CMS/HCC) Congestive heart failure, unspecified Unspecified essential hypertension Arthropathy, unspecified, site unspecified Personal history of other diseases of circulatory system Personal history of malignant neoplasm of prostate Personal history of allergy to analgesic agent Personal history of allergy to other specified medicinal agents documented in this encounter Care Teams Pond Tender Relationship Specialty Start Date End Date Marsah Turner MD [address] [place] [address] PCP - General Internal Medicine 05/31/12 documented as of this encounter
--- OUTSIDE RECORDS SUMMARY | 2024-10-11 11:43 | XMS_ITS | Encounter Summary ---
Author Organization [facility] Address [address] [place] [address] Care Team Providers Care Medical Assisting Instructor Name Role Phone Marsha Turner MD Primary Care Provider +1- [phone] Encounter Details Date Type Department Care Team (Latest Contact Info) Description 06/25/2006 Outpatient [facility] Gastroenterology[address] [place] [address] Abilio Bagley MD [address] [place] [address] Abdominal Pain, Right Upper Quadrant (Primary Dx); Chronic Pancreatitis (CMS/HCC); Nonspecific Abnormal Results of Liver Function Study Social History Tobacco Use Types Packs/Day Years Used Date Smoking Tobacco: Never Assessed Sex and Gender Information Value Date Recorded Sex Assigned at Not on file Legal Sex Male 6:16 AM MANAGER ENTRY Gender Identity Not on file Sexual Orientation Not on file documented as of this encounter Plan of Treatment Not on file documented as of this encounter Visit Diagnoses Diagnosis Abdominal pain, right upper quadrant- Primary Chronic pancreatitis (CMS/HCC) Chronic pancreatitis Nonspecific abnormal results of liver function study documented in this encounter Care Teams Medical Assisting Instructor Relationship Specialty Start Date End Date Marsha Turner MD [address] [place] [address] PCP - General Internal Medicine 05/31/12 documented as of this encounter
--- OUTSIDE RECORDS SUMMARY | 2024-10-11 11:43 | XMS_ITS | Encounter Summary ---
Author Organization [facility] Address [address] [place] [address] Care Team Providers Care Baking Factory Worker Name Role Phone Marsha Turner MD Primary Care Provider +1- [phone] Encounter Details Date Type Department Care Team (Late st Contact Info) Description 11/05/2005 Outpatient Historical [facility] [place] [facility] [address] 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
--- OUTSIDE RECORDS SUMMARY | 2024-10-11 11:43 | XMS_ITS | Encounter Summary ---
Author Organization [facility] Address [address] [place] [address] Care Team Providers Care Relocation Director Name Role Phone Marsha Turner MD Primary Care Provider +1- [phone] Encounter Details Date Type Department Care Team (Late st Contact Info) Description 11/30/2007 Outpatient Historical [facility] Pain Management Procedures [address] [place] [address] Dee Casillas MD [address] [address] Kamar Leach MD NO ADDRESS ON FILE Unspecified Heart Failure (CMS/HCC); Unspecified Asthma; Diaphragmatic Hernia without Mention of Obstruction or Gangrene; Unspecified Arthropathy, Site Unspecified; Unspecified Joint Replacement by Other Means; Personal History of Allergy to Analgesic Agent Social History Tobacco Use Types Packs/Day Years Used Date Smoking Tobacco: Never Assessed Sex and Gender Information Value Date Recorded Sex Assigned at Not on file Legal Sex Male 6:16 AM FRAME BANDER Gender Identity Not on file Sexual Orientation Not on file documented as of this encounter Plan of Treatment Not on file documented as of this encounter Procedures Procedure Name Priority Date/Time Associated Diagnosis Comments XR FLUORO GREATER THAN 1 HOUR Routine 12/08/2007 4:55 PM CDT XR LUMBAR SPINE 4+ VW Routine 12/08/2007 11:41 AM CDT documented in this encounter Results * XR FLUORO > 1 HOUR (12/08/2007 4:55 PM CDT) Anatomical Region Laterality Modality Other 12/08/2007 4:55 PM CDT Narrative 12/08/2007 4:55 PM CDT Finalized by interface cleanup utility. No report expected. Procedure Note 03/25/2008 Finalized by interface cleanup utility. No report expected. us Kamar Leach MD DIAGNOSTIC IMAGING ORDERAB LES Final Result * XR LUMBAR SPINE 4+ VW (12/08/2007 11:41 AM CDT) Anatomical Region Laterality Modality Spine Other 12/08/2007 11:4 1 AM CDT Narrative 12/08/2007 3:15 PM CDT Views of the lumbar spine with flexion and extension were obtained. There is a posterior fusion L4, L5 and S1. Hardware is intact. The neutral, flexion and extension views show that alignment is within normal limits. 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 - Dictated By: Florentino Lovell M.D. Electronically Signed By: Florentino Lovell M.D. Date Signed: 12/08/07 [facility] Procedure Note Florentino Lovell W - 12/08/2007 Views of the lumbar spine with flexion and extension were obtained. Thereis a posterior fusion L4, L5 and S1. Hardware is intact. The neutral, flexion and extension views showthat alignment is within normal limits. Mild to moderate degenerative disc disease is also noted [id number]. - Dictated By: Florentino Lovell M.D. Electronically Signed By: Florentino Lovell M.D. Date Signed: 12/08/07 [facility] us Dee Casillas MD DIAGNOSTIC IMAGING ORDERABLES Fi nal Result documented in this encounter Visit Diagnoses Diagnosis Heart failure, unspecified (CMS/HCC) Heart failure, unspecified Unspecified asthma(493.90) Unspecified asthma Diaphragmatic hernia without mention of obstruction or gangrene Arthropathy, unspecified, site unspecified Unspecified joint replacement by other means Personal history of allergy to analgesic agent documented in this encounter Care Teams Relocation Director Relationship Specialty Start Date End Date Marsha Turner MD [address] [place] [address] PCP - General Internal Medicine 05/31/12 documented as of this encounter
--- OUTSIDE RECORDS SUMMARY | 2024-10-11 11:43 | XMS_ITS | Encounter Summary ---
Author Organization [facility] Address [address] [place] [address] Care Team Providers Care Cigarette Packer Name Role Phone Marsha Turner MD Primary Care Provider +1- [phone] Reason for Referral * Outpatient Services (Routine) - Closed Specialty Diagnoses / Procedures Referred By Te caceres Referred To Contact Diagnoses Disorders of sacrum Procedures XR FLUORO NEEDLE GUIDANCE Kamar Leach MD Referral ID Status Reason Start Date Expiration Date Visits Re quested Visits Authorized [id number] Closed 06/11/2014 07/12/2015 1 1 Encounter Details Date Type Department Care Team (Late st Contact Info) Description 06/11/2014 Ancillary Orders [facility] Pain Management Procedures [place] [address] [place] [address] Kamar Leach MD NO ADDRESS ON FILE Disorders of sacrum (Primary Dx) Social History Tobacco Use Types Packs/Day Years Used Date Smoking Tobacco: Never Smokeless Tobacco: Never Alcohol Use Standard Drinks/Week Comments No 0 (1 standard drink = 0.6 oz pur e alcohol) Sex and Gender Information Value Date Recorded Sex Assigned at Not on file 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 Exam was auto-finalized. 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
--- OUTSIDE RECORDS SUMMARY | 2024-10-11 11:43 | XMS_ITS | Encounter Summary ---
Author Organization [facility] Address [address] [place] [address] Care Team Providers Care Automotive Light Mechanic Name Role Phone Marsha Turner MD Primary Care Provider +1- [phone] Encounter Details Date Type Department Care Team (Late st Contact Info) Description 05/27/2006 Outpatient Historical [facility] [place] [address] [place] [address] Thomas Mack MD NO ADDRESS ON FILE Malig Thierno Prostate (Primary Dx); Slow Urinary Stream; Urinary Frequency Social History Tobacco Use Types Packs/Day Years Used Date Smoking Tobacco: Never Assessed Sex and Gender Information Value Date Recorded Sex Assigned at Not on file Legal Sex Male 6:16 AM MANAGEMENT CONSULTING Gender Identity Not on file Sexual Orientation Not on file documented as of this encounter Plan of Treatment Not on file documented as of this encounter Visit Diagnoses Diagnosis Malig thierno prostate- Primary Malignant neoplasm of prostate Slow urinary stream Slowing of urinary stream Urinary frequency documented in this encounter Care Teams Automotive Light Mechanic Relationship Specialty Start Date End Date Marsha Turner MD [address] [place], [place] [address] PCP - General Internal Medicine 05/31/12 documented as of this encounter
--- OUTSIDE RECORDS SUMMARY | 2024-10-11 11:43 | XMS_ITS | Encounter Summary ---
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 Gender Identity Not on file Sexual Orientation Not on file documented as of this encounter Miscellaneous Notes * Scanned Form - Sgf Scanning, Test - 03/31/2010 7:35 AM SENIOR INTEGRATION ARCHITECT documented in this encounter Plan of Treatment Not on file documented as of this encounter Procedures Procedure Name Priority Date/Time Associated Diagnosis Comments XR CHEST PA OR AP 1 VW Routine 7:53 PM CDT XR ABDOMEN 1 VW Routine 10/17/2007 7:52 PM CDT URINE CULTURE Routine 10/17/2007 7:04 PM CDT URINALYSIS W/REFLEX MICROSCOPIC Stat 10/17/2007 6:43 PM CDT PSA MEDICARE SCREEN Stat 10/17/2007 6 :00 PM CDT ABORH TYPING Stat 10/17/2007 6:00 PM CDT CBC WITH DIFFERENTIAL Stat 10/17/2007 6:00 PM CDT PTT Stat 10/17/2007 6:00 PM CDT PROTIME-INR Stat 10/17/2007 6:00 PM CDT BLOOD BANK ANTIBODY SCREEN Stat 10/17/2007 6:00 PM CDT COMPREHENSIVE METABOLIC PANEL Stat 10/17/2007 6:00 PM CDT documented in this encounter Results * XR CHEST PA OR AP (10/17/2007 7:53 PM CDT) Anatomical Region Laterality Modality Chest Other 10/17/2007 7:53 PM CDT Narrative 10/19/2007 8:37 AM CDT Heart size and pulmonary vasculature are normal. Lungs are clear. No pleural fluid. Impression: 1. No active disease. - Dictated By: Arun Rai M.D. Electronically Signed By: Arun Rai M.D. Date Signed: 10/19/07 Procedure Note Chang Rai - 10/19/2007 Heart size and pulmonary vasculature are normal. Lungs are clear. Nopleural fluid. Impression: 1. No active disease. - Dictated By: Arun Rai M.D. Electronically Signed By: Arun Rai M.D. Date Signed: 10/19/07 Thomas Mack MD DIAGNOSTIC IMAGING ORD ERABLES Final Result * XR ABDOMEN 1 VW (10/17/2007 7:52 PM CDT) Anatomical Region Laterality Modality Abdomen Other 10/17/2007 7:52 PM CDT Narrative 10/19/2007 8:37 AM CDT KUB. Findings: No urinary calculi are identified. Normal bowel gas pattern. Lower lumbar spine postoperative changes. Impression: 1. No acute abnormality. - Dictated By: Arun Rai M.D. Electronically Signed By: Arun Rai M.D. Date Signed: 10/19/07 Procedure Note Chang Rai Erica - 10/19/2007 KUB. Findings: No urinary calculi are identified. Normal bowel gas pattern.Lower lumbar spine postoperative changes. Impression: 1. No acute abnormality. - Dictated By: Arun Rai M.D. Electronically Signed By: Arun Rai M.D. Date Signed: 10/19/07 us Thomas Mack MD DIAGNOSTIC IMAGING ORD ERABLES Final Result * URINE CULTURE (10/17/2007 7:04 PM CDT) FINAL REPORT No growth INTERFA CE SYSTEM 10/17/2007 7:04 PM CDT 10/17/2007 7:04 PM CDT Thomas Mack MD MICROBIOLOGY - GENERAL ORDERABLES Final Result INTERFACE SYSTEM Refer to clinic/hospital department * URINALYSIS (10/17/2007 6:43 PM CDT) COLOR UA Yellow Straw [facility] PROTEIN UA NEGATIVE NEGATIVE [facility] BLOOD UA NEGATIVE NEGATIVE [facility] NITRITE UA NEGATIVE NEGATIVE [facility] UROBILINOGEN UA 0.2 0.2 [facility] CLARITY UA Clear Clear [facility] SPECIFIC GRAVITY UA 1.025 <=1.005 [facility] GLUCOSE UA NEGATIVE NEGATIVE [facility] PH UA 5.5 5.0 - 9.0 [facility] BILIRUBIN UA NEGATIVE NEGATIVE [facility] LEUKOCYTE ESTERASE UA NEGATIVE NEGATIVE [facility] KETONES UA NEGATIVE NEGATIVE [facility] MICRO EXAM No No [facility] Urine specimen (specimen) 10/17/2007 6:43 PM CDT 10/17/2007 6:43 PM CDT Thomas Mack MD URINE ORDERABLES Final Result Performing Organization Address [facility] de Phone Number [facility] CLIA# [id number] [address] [place] [address] * PSA MEDICARE SCREEN (10/17/2007 6:00 PM CDT) PSA 0.8 0.0 - 4.0 ng/mL [facility] Blood specimen (specimen) 10/17/2007 6:00 PM CDT 10/17/2007 6:05 PM CDT Thomas Mack MD CHEMISTRY ORDERABLES C OM Final Result Performing Organization Address [facility] de Phone Number [facility] CLIA# [id number] [address] [place] [address] * (ABNORMAL) CBC WITH DIFFERENTIAL (10/17/2007 6:00 PM CDT) MONOCYTES 8.9 2.0 - 10.0 % [facility] RDW 13.8 11.0 - 14.5 % [facility] MONOCYTE ABSOLUTE 0.5 0.1 - 0.6 K/ul [facility] WBC 5.3 4.8 - 10.8 K/ul [facility] NEUTROPHILS 72.9 42.2 - 75.2 % [facility] MCH 29.6 27.0 - 34.0 pg [facility] NEUTROPHIL ABSOLUTE 3.9 2.0 - 8.0 K/ul [facility] HEMATOCRIT 38.6(L) 41.0 - 53.0 % [facility] PLATELETS 190 140 - 440 K/ul [facility] EOSINOPHIL ABSOLUTE 0.1 0.0 - 0.7 K/ul [facility] EOSINOPHILS 1.5 0.0 - 7.0 % [facility] RBC 4.29(L) 4.60 - 6.20 Mil/ul [facility] MCHC 32.9 30.0 - 35.0 g/dL [facility] LYMPHOCYTE ABSOLUTE 0.8(L) 1.2 - 4.0 K/ul [facility] LYMPHOCYTES 15.8(L) 24.0 - 44.0 % [facility] MCV 90.0 84.0 - 103.0 Fl [facility] BASOPHILS 0.9 0.0 - 1.0 % [facility] MPV 9.6 8.9 - 12.8 Fl [facility] BASOPHILS ABSOLUTE 0.1 0.0 - 0.2 K/ul [facility] HEMOGLOBIN 12.7(L) 14.0 - 18.0 g/dL [facility] Blood specimen (specimen) 10/17/2007 6:00 PM CDT 10/17/2007 6:05 PM CDT Thomas Mack MD HEMATOLOGY ORDERABLES Final Result Performing Organization Address [facility] de Phone Number [facility] CLIA# [id number] [address] [place] [address] * ANTIBODY SCREEN (10/17/2007 6:00 PM CDT) [facility] Signature ANTIBODY SCREEN Negative [facility] Blood specimen (specimen) 10/17/2007 6:00 PM CDT 10/17/2007 6:05 PM CDT Thomas Mack MD BLOOD BANK ORDERABLES Final Result Performing Organization Address [facility] de Phone Number [facility] CLIA# [id number] [address] [place] [address] * ABORH TYPING (10/17/2007 6:00 PM CDT) ABO/RH TYPE A Positive [facility] Blood specimen (specimen) 10/17/2007 6:00 PM CDT 10/17/2007 6:05 PM CDT Thomas Mack MD BLOOD BANK ORDERABLES Final Result Performing Organization Address [facility] de Phone Number [facility] CLIA# [id number] [address] [place] [address] * PTT (10/17/2007 6:00 PM CDT) PTT 31.3 22.5 - 36.5 Secs [facility] Comment: Therapeutic Range: Hi-level PE/DVT heparin protocol 80.1 -95.0 sec Lo-level PE/DVT heparin protocol 67.1 - 80.0 sec Cardiac Heparin Protocol 67.1 - 85.0 sec Neuro Heparin Protocol 67.1 - 80.0 sec As of 06/02/2007 note change in APTT Normal Range. Blood specimen (specimen) 10/17/2007 6:00 PM CDT 10/17/2007 6:05 PM CDT Thomas Mack MD HEMATOLOGY ORDERABLES Final Result Performing Organization Address [facility] de Phone Number [facility] CLIA# [id number] [address] [place] [address] * PROTIME-INR (10/17/2007 6:00 PM CDT) PROTIME 13.6 12.8 - 15.8 Secs [facility] Comment:As of 2007 not e change in normal range. INR 0.9 [facility] Comment: Expected Values for INR: DVT/PE Goal INR 2.5; range 2.0 - 3.0 Valve Replacement Tissue Goal INR 2.5; range 2.0 - 3.0 Mechanical Goal INR 3.0; range 2.5 - 3.5 POST-SC Goal INR 2.5; range 2.0 - 3.0 or Goal 3.0; range 2.5 - 3.5 Atrial Fibrillation Goal INR 2.5; range 2.0 - 3.0 Ischemic Stroke Goal INR 2.5; range 2.0 - 3.0 For additional information see Guidelines for Anticoagulation available from the pharmacy Nichelle Mike [phone] Blood specimen (specimen) 10/17/2007 6:00 PM CDT 10/17/2007 6:05 PM CDT us Thomas Mack MD HEMATOLOGY ORDERABLES Final Result [facility] CLIA# [id number] [address] [place] [address] * COMPREHENSIVE METABOLIC PANEL (10/17/2007 6:00 PM CDT) CREATININE 1.0 0.7 - 1.5 mg/dL [facility] ALT 32 4 - 36 IU/L [facility] CALCIUM 10.0 8.4 - 10.5 mg/dL [facility] OSMOLALITY, CALCULATED 287 275 - 295 mOsm/Kg [facility] GLUCOSE 108 70 - 110 mg/dL [facility] ALKALINE PHOSPHATASE 67 25 - 100 U/L [facility] CHLORIDE 108 95 - 110 mEq/L [facility] ALBUMIN/GLOBULIN RATIO 1.5 1.0 - 2.3 [facility] TOTAL PROTEIN 7.5 6.3 - 8.2 g/dL [facility] SODIUM 139 136 - 145 mEq/L [facility] BILIRUBIN TOTAL 0.4 0.3 - 1.2 mg/dL [facility] BUN 16 9 - 20 mg/dL [facility] CO2 26 22 - 32 mmol/l [facility] ANION GAP 9 9 - 20 mEq/L [facility] AST 27 8 - 33 U/L [facility] POTASSIUM 3.7 3.5 - 5.0 mEq/L [facility] GLOBULIN (CALC) 3.0 2.4 - 3.9 g/dL [facility] ALBUMIN 4.5 3.5 - 5.0 g/dL [facility] Blood specimen (specimen) 10/17/2007 6:00 PM CDT 10/17/2007 6:05 PM CDT us Thomas Mack MD CHEMISTRY ORDERABLES F inal Result [facility] CLIA# [id number] [address] [place] [address] documented in this encounter Visit Diagnoses Not on filedocumented in this encounter Care Teams Order Builder Loader Relationship Specialty Start Date End Date Marsha Turner MD [address] [place], [place] [id number] PCP - General Internal Medicine 05/31/12 documented as of this encounter
--- OUTSIDE RECORDS SUMMARY | 2024-10-11 11:43 | XMS_ITS | Encounter Summary ---
Author Organization [facility] Address [address] [place] [address] Care Team Providers Care Engineering Manager Electronics Name Role Phone Marsha Turner MD Primary Care Provider +1- [phone] Encounter Details Date Type Department Care Team (Latest Contact Info) Description 06/25/2006 Outpatient Historical [facility] Operating Room [address] [place] [phone] Abilio Bagley MD [address] [place] [address] Abdominal Pain, Right Upper Quadrant (Primary Dx) Social History Tobacco Use Types Packs/Day Years Used Date Smoking Tobacco: Never Assessed Sex and Gender Information Value Date Recorded Sex Assigned at Not on file 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
--- OUTSIDE RECORDS SUMMARY | 2024-10-11 11:43 | XMS_ITS | Encounter Summary ---
Author Organization [facility] Address [address] [place] [address] Care Team Providers Care Vice President Of Software Development Name Role Phone Marsha Turner MD Primary Care Provider +1- [phone] Encounter Details Date Type Department Care Team (Latest Contact Info) Description 08/26/2018 Ancillary Orders [facility] [address] [place] [address] Aliyah Lange, [place] [address] [place] [address] Status post lumbar spinal fusion Social History Tobacco Use Types Packs/Day Years Used Date Smoking Tobacco: Never Smokeless Tobacco: Never Alcohol Use Standard Drinks/Week Comments No 0 (1 standard drink = 0.6 oz pur e alcohol) Sex and Gender Information Value Date Recorded Sex Assigned at Not on file Legal Sex Male 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 Exam: XR CERVICAL SPINE 2 OR 3 VIEWS Date/Time of Exam: 08/26/2018 8:52 AM Reason For Exam: See Diagnosis. Diagnosis: Status post lumbar spinal fusion. Comparison: 07/07/2013. Findings: Interval multilevel cervicothoracic laminectomies and placement of stabilization hardware from C3 to T2. Stable appearance of the multilevel anterior fusion hardware and interbody grafts. Continued straightening of the cervical lordosis. No significant prevertebral soft tissue swelling. Posterior skin sean. IMPRESSION: 1. Interval posterior fusion. [id number] Narrative Procedure Note Chang Rai MD - 08/26/2018 IMPRESSION: Please see below. Exam: XR CERVICAL SPINE 2 OR 3 VIEWS Date/Time of Exam: 08/26/2018 8:52 AM Reason For Exam: See Diagnosis. Diagnosis: Status post lumbar spinal fusion. Comparison: 07/07/2013. Findings: Interval multilevel cervicothoracic laminectomies and placement of stabilization hardware from C3 to T2. Stable appearance of the multilevel anterior fusion hardware and interbody grafts. Continued straightening of the cervical lordosis. No significant prevertebral soft tissue swelling. Posterior skin sean. IMPRESSION: 1. Interval posterior fusion. [id number] Aliyah MONTALVO DIAGNOSTIC IMAGING ORDERABLES Final Result documented in this encounter Visit Diagnoses Diagnosis Status post lumbar spinal fusion Arthrodesis status Status post lumbar spinal fusion Arthrodesis status documented in this encounter Care Teams Vice President Of Software Development Relationship Specialty Start Date End Date Marsha Turner MD [address] [place] [address] PCP - General Internal Medicine 05/31/12 documented as of this encounter
--- OUTSIDE RECORDS SUMMARY | 2024-10-11 11:43 | XMS_ITS | Encounter Summary ---
Author Organization [facility] Address [address] [place] [address] Care Team Providers Care Safety Supervisor Name Role Phone Marsha Turner MD Primary Care Provider +1- [phone] Encounter Details Date Type Department Care Team (Late st Contact Info) Description 08/30/2007 Outpatient Historical [facility] [address] [place] [address] Thomas Mack MD NO ADDRESS ON FILE Malignant Neoplasm of Prostate (CMS/HCC) Social History Tobacco Use Types Packs/Day Years Used Date Smoking Tobacco: Never Assessed Sex and Gender Information Value Date Recorded Sex Assigned at Not on file 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 Gender Identity Not on file Sexual Orientation Not on file documented as of this encounter Plan of Treatment Not on file documented as of this encounter Procedures Procedure Name Priority Date/Time Associated Diagnosis Comments PSA MEDICARE DIAGNOSTIC Routine 08/30/2007 1:25 PM CDT documented in this encounter Results * PSA MEDICARE DIAGNOSTIC (08/30/2007 1:25 PM CDT) PSA 1.0 0.0 - 4.0 ng/mL [facility] Blood specimen (specimen) 08/30/2007 1:25 PM CDT 08/30/2007 3:26 PM CDT us Thomas Mack MD CHEMISTRY ORDERABLES F inal Result [facility] CLIA# [id number] [address] [place] [address] documented in this encounter Visit Diagnoses Diagnosis Malignant neoplasm of prostate (CMS/HCC) Malignant neoplasm of prostate documented in this encounter Care Teams Safety Supervisor Relationship Specialty Start Date End Date Marsha Turner MD [address] [place] [address] PCP - General Internal Medicine 05/31/12 documented as of this encounter
--- OUTSIDE RECORDS SUMMARY | 2024-10-11 11:43 | XMS_ITS | Encounter Summary ---
Author Organization [facility] Address [address] [place] [address] Care Team Providers Care Petroleum Engineering Professor Name Role Phone Marsha Turner MD Primary Care Provider +1- [phone] Encounter Details Date Type Department Care Team (Late st Contact Info) Description 01/27/2007 Outpatient Historical [facility] 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
--- OUTSIDE RECORDS SUMMARY | 2024-10-11 11:43 | XMS_ITS | Encounter Summary ---
Author Organization [facility] Address [address] [place] [address] Care Team Providers Care Director Payment Name Role Phone Marsha Turner MD Primary Care Provider +1- [phone] Encounter Details Date Type Department Care Team (Late st Contact Info) Description 09/13/2006 Outpatient Historical [facility] [place] [facility] [address] 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
--- OUTSIDE RECORDS SUMMARY | 2024-10-11 11:43 | XMS_ITS | Encounter Summary ---
Author Organization [facility] Address [address] [place] [address] Care Team Providers Care Client Business Manager Name Role Phone Marsha Turner MD Primary Care Provider +1- [phone] Encounter Details Date Type Department Care Team (Late st Contact Info) Description 12/22/2007 Outpatient Historical [facility] Pain 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
--- OUTSIDE RECORDS SUMMARY | 2024-10-11 11:43 | XMS_ITS | Encounter Summary ---
Author Organization 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
--- OUTSIDE RECORDS SUMMARY | 2024-10-11 11:43 | XMS_ITS | Encounter Summary ---
Author Organization [facility] Address [address] [place] [address] Care Team Providers Care Gas Generator Operator Name Role Phone Marsha Turner MD Primary Care Provider +1- [phone] Encounter Details Date Type Department Care Team (Latest Contact Info) Description 05/06/2005 Outpatient Historical [facility] Endoscopy [place] [address] [place] [address] [place] [address] Abilio Bagley MD [address] [place] [address] CHEST PAIN NOS (Primary Dx) Social History Tobacco Use Types Packs/Day Years Used Date Smoking Tobacco: Never Assessed Sex and Gender Information Value Date Recorded Sex Assigned at Not on file 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
--- OUTSIDE RECORDS SUMMARY | 2024-10-11 11:43 | XMS_ITS | Encounter Summary ---
Author Organization [facility] Address [address] [place] [address] Care Team Providers Care Lab Engineer Name Role Phone Marsha Turner MD Primary Care Provider +1- [phone] Encounter Details Date Type Department Care Team (Late st Contact Info) Description 09/23/2005 Outpatient Historical [facility] [place] [place] [address] Thomas Mack MD NO ADDRESS ON FILE Renal Colic (Primary Dx) Social History Tobacco Use Types Packs/Day Years Used Date Smoking Tobacco: Never Assessed Sex and Gender Information Value Date Recorded Sex Assigned at Not on file 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
--- OUTSIDE RECORDS SUMMARY | 2024-10-11 11:44 | XMS_ITS | Encounter Summary ---
Author Organization [facility] Address [address] [place] [address] Care Team Providers Care Waste Water Operator Name Role Phone Marsha Turner MD Primary Care Provider +1- [phone] Encounter Details Date Type Department Care Team (Late st Contact Info) Description 03/05/2008 Outpatient Historical [facility] PreAdmission [place] [address] [place] [address] Dee Casillas MD [address] [address] Social History Tobacco Use Types Packs/Day Years Used Date Smoking Tobacco: Never Assessed Sex and Gender Information Value Date Recorded Sex Assigned at Not on file Legal Sex Male 6:16 AM COMPUTER ANIMATOR Gender Identity Not on file Sexual Orientation Not on file documented as of this encounter Plan of Treatment Not on file documented as of this encounter Procedures Procedure Name Priority Date/Time Associated Diagnosis Comments XR CHEST PA OR AP 1 VW Routine 8 5:03 PM COMPUTER ANIMATOR URINALYSIS W/REFLEX MICROSCOPIC Stat 03/05/2008 4:54 PM COMPUTER ANIMATOR ABORH TYPING Stat 03/05/2008 4:20 PM COMPUTER ANIMATOR CBC WITH DIFFERENTIAL Stat 03/05/2008 4:20 PM COMPUTER ANIMATOR PROTIME-INR Stat 03/05/2008 4:20 PM COMPUTER ANIMATOR BLOOD BANK ANTIBODY SCREEN Stat 03/05/2008 4:20 PM COMPUTER ANIMATOR COMPREHENSIVE METABOLIC PANEL Stat 03/05/2008 4:20 PM COMPUTER ANIMATOR documented in this encounter Results * XR CHEST PA OR AP (03/05/2008 5:03 PM COMPUTER ANIMATOR) Anatomical Region Laterality Modality Chest Other 03/05/2008 5:03 PM COMPUTER ANIMATOR Narrative 03/06/2008 3:36 PM COMPUTER ANIMATOR Exam: Chest - PA Date/Time of Exam: Mar 05, 2008 5:03:08 PM History: Pre-operative. Findings: There is a comparison from 10/17/2007. Both lungs are well-inflated and clear. The cardiomediastinal silhouette and pulmonary vessels are unremarkable. Impression: No active chest disease or significant interval change. - Dictated By: Melba Gamboa M.D. Electronically Signed By: Melba Gamboa M.D. Date Signed: 03/06/08 Procedure Note Melba Gamboa MD - 03/06/2008 Exam: Chest - PA Date/Time of Exam: Mar 05, 2008 5:03:08 PM History: Pre-operative. Findings: There is a comparison from 10/17/2007. Both lungs are well-inflated and clear. The cardiomediastinal silhouetteand pulmonary vessels are unremarkable. Impression: No active chest disease or significant interval change. - Dictated By: Melba Gamboa M.D. Electronically Signed By: Melba Gamboa M.D. Date Signed: 03/06/08 Dee Casillas MD DIAGNOSTIC IMAGING ORDERABLES Fi nal Result * (ABNORMAL) URINALYSIS (03/05/2008 4:54 PM COMPUTER ANIMATOR) LEUKOCYTE ESTERASE UA NEGATIVE NEGATIVE [facility] KETONES UA NEGATIVE NEGATIVE [facility] MICRO EXAM No No [facility] COLOR UA Yellow Straw [facility] PROTEIN UA NEGATIVE NEGATIVE [facility] BLOOD UA NEGATIVE NEGATIVE [facility] NITRITE UA NEGATIVE NEGATIVE [facility] UROBILINOGEN UA 1.0(A) 0.2 [facility] CLARITY UA Clear Clear [facility] SPECIFIC GRAVITY UA 1.010 <=1.005 [facility] GLUCOSE UA NEGATIVE NEGATIVE [facility] PH UA 7.0 5.0 - 9.0 [facility] BILIRUBIN UA NEGATIVE NEGATIVE [facility] Urine specimen (specimen) 03/05/2008 4:54 PM COMPUTER ANIMATOR 03/05/2008 4:54 PM COMPUTER ANIMATOR us Dee Casillas MD URINE ORDERABLES Final Result Performing Organization Address City/State/[facility] Co de Phone Number INTERFACE SYSTEM Refer to clinic/hospital department [facility] CLIA# [id number] [address] [place] [address] * (ABNORMAL) CBC WITH DIFFERENTIAL (03/05/2008 4:20 PM COMPUTER ANIMATOR) HEMOGLOBIN 11.6(L) 14.0 - 18.0 g/dL [facility] LYMPHOCYTES 15.1(L) 24.0 - 44.0 % [facility] LYMPHOCYTE ABSOLUTE 1.0(L) 1.2 - 4.0 K/ul [facility] WBC 6.4 4.8 - 10.8 K/ul [facility] MCH 30.4 27.0 - 34.0 pg [facility] MPV 9.1 8.9 - 12.8 Fl [facility] BASOPHILS ABSOLUTE 0.0 0.0 - 0.2 K/ul [facility] BASOPHILS 0.5 0.0 - 1.0 % [facility] MCHC 33.8 30.0 - 35.0 g/dL [facility] HEMATOCRIT 34.3(L) 41.0 - 53.0 % [facility] RDW 13.9 11.0 - 14.5 % [facility] MONOCYTE ABSOLUTE 0.6 0.1 - 0.6 K/ul [facility] MONOCYTES 9.6 2.0 - 10.0 % [facility] RBC 3.82(L) 4.60 - 6.20 Mil/ul [facility] NEUTROPHIL ABSOLUTE 4.6 2.0 - 8.0 K/ul [facility] NEUTROPHILS 72.9 42.2 - 75.2 % [facility] MCV 89.8 84.0 - 103.0 Fl [facility] EOSINOPHILS 1.9 0.0 - 7.0 % [facility] PLATELETS 221 140 - 440 K/ul [facility] EOSINOPHIL ABSOLUTE 0.1 0.0 - 0.7 K/ul [facility] Blood specimen (specimen) 03/05/2008 4:20 PM COMPUTER ANIMATOR 03/05/2008 4:30 PM COMPUTER ANIMATOR us Dee Casillas MD HEMATOLOGY ORDERABLES Final Resu lt INTERFACE SYSTEM Refer to clinic/hospital department [facility]# [id number] [address] [place] [address] * PROTIME-INR (03/05/2008 4:20 PM COMPUTER ANIMATOR) INR 1.0 [facility] Comment: Expected Values for INR: DVT/PE Goal INR 2.5; range 2.0 - 3.0 Valve Replacement Tissue Goal INR 2.5; range 2.0 - 3.0 Mechanical Goal INR 3.0; range 2.5 - 3.5 POST-GA Goal INR 2.5; range 2.0 - 3.0 or Goal 3.0; range 2.5 - 3.5 Atrial Fibrillation Goal INR 2.5; range 2.0 - 3.0 Ischemic Stroke Goal INR 2.5; range 2.0 - 3.0 For additional information see Guidelines for Anticoagulation available from the pharmacy Nichelle Mike [phone] PROTIME 14.0 12.8 - 15.8 Secs [facility] Comment:As of 2007 not e change in normal range. Blood specimen (specimen) 03/05/2008 4:20 PM COMPUTER ANIMATOR 03/05/2008 4:30 PM COMPUTER ANIMATOR us Dee Casillas MD HEMATOLOGY ORDERABLES Final Resu lt Performing Organization Address [facility] Phone Number INTERFACE SYSTEM Refer to clinic/hospital department [facility] CLIA# [id number] [address] [place] [address] * ANTIBODY SCREEN (03/05/2008 4:20 PM COMPUTER ANIMATOR) ANTIBODY SCREEN Negative [facility] Blood specimen (specimen) 03/05/2008 4:20 PM COMPUTER ANIMATOR 03/05/2008 4:30 PM COMPUTER ANIMATOR Dee Casillas MD BLOOD BANK ORDERABLES Final Resu lt Performing Organization Address [facility] Phone Number INTERFACE SYSTEM Refer to clinic/hospital department [facility] CLIA# [id number] [address] [place] [address] * ABORH TYPING (03/05/2008 4:20 PM COMPUTER ANIMATOR) ABO/RH TYPE A Positive [facility] Blood specimen (specimen) 03/05/2008 4:20 PM COMPUTER ANIMATOR 03/05/2008 4:30 PM COMPUTER ANIMATOR Dee Casillas MD BLOOD BANK ORDERABLES Final Resu lt Performing Organization Address [facility] Phone Number INTERFACE SYSTEM Refer to clinic/[facility] department [facility] CLIA# [id number] [address] [place] [address] * (ABNORMAL) COMPREHENSIVE METABOLIC PANEL (03/05/2008 4:20 PM COMPUTER ANIMATOR) ALBUMIN 4.4 3.5 - 5.0 g/dL [facility] POTASSIUM 3.9 3.5 - 5.0 mEq/L [facility] GLOBULIN (CALC) 2.6 2.4 - 3.9 g/dL [facility] CREATININE 0.9 0.7 - 1.5 mg/dL [facility] CALCIUM 9.2 8.4 - 10.5 mg/dL [facility] OSMOLALITY, CALCULATED 289 275 - 295 mOsm/Kg [facility] ALT 17 4 - 36 IU/L [facility] GLUCOSE 118(H) 70 - 110 mg/dL [facility] CHLORIDE 108 95 - 110 mEq/L [facility] ALBUMIN/GLOBULIN RATIO 1.7 1.0 - 2.3 [facility] ALKALINE PHOSPHATASE 71 25 - 100 U/L [facility] SODIUM 141 136 - 145 mEq/L [facility] BILIRUBIN TOTAL 0.3 0.3 - 1.2 mg/dL [facility] TOTAL PROTEIN 7.0 6.3 - 8.2 g/dL [facility] BUN 9 9 - 20 mg/dL [facility] AST 16 8 - 33 U/L [facility] CO2 27 22 - 32 mmol/l [facility] ANION GAP 10 9 - 20 mEq/L [facility] Blood specimen (specimen) 03/05/2008 4:20 PM COMPUTER ANIMATOR 03/05/2008 4:30 PM COMPUTER ANIMATOR us Dee Casillas MD CHEMISTRY ORDERABLES Final Resul t INTERFACE SYSTEM Refer to clinic/hospital department [facility] CLIA# [id number] [facility] [place] [address] documented in this encounter Visit Diagnoses Not on filedocumented in this encounter Care Teams Waste Water Operator Relationship Specialty Start Date End Date Marsha Turner MD [address] [place] [address] PCP - General Internal Medicine 05/31/12 documented as of this encounter
--- OUTSIDE RECORDS SUMMARY | 2024-10-11 11:44 | XMS_ITS | Encounter Summary ---
Author Organization [facility] Address [address] [place] [address] Care Team Providers Care Repair Armature Winder Helper Name Role Phone Marsha Turner MD Primary Care Provider +1- [phone] Encounter Details Date Type Department Care Team (Late st Contact Info) Description 09/26/2004 Outpatient Historical [facility] Urology- [address] Entrance B, 3rd [place] [address] Thomas Mack MD NO ADDRESS ON FILE Malig emmett prostate (Primary Dx) Social History Tobacco Use Types Packs/Day Years Used Date Smoking Tobacco: Never Assessed Sex and Gender Information Value Date Recorded Sex Assigned at Not on file Legal Sex Male 6:16 AM MD ALLERGY IMMUNOLOGY Gender Identity Not on file Sexual Orientation Not on file documented as of this encounter Plan of Treatment Not on file documented as of this encounter Visit Diagnoses Diagnosis Malig emmett prostate- Primary Malignant neoplasm of prostate documented in this encounter Care Teams Repair Armature Winder Helper Relationship Specialty Start Date End Date Marsha Turner MD [address] [place] [address] PCP - General Internal Medicine 05/31/12 documented as of this encounter
--- OUTSIDE RECORDS SUMMARY | 2024-10-11 11:44 | XMS_ITS | Encounter Summary ---
Author Organization [email or web address] Address [address] [place] [address] Care Team Providers Care Community Living Instructor Name Role Phone Marsha Turner MD Primary Care Provider +1- [phone] Encounter Details Date Type Department Care Team (Late st Contact Info) Description 09/12/2004 Outpatient Historical [employer] [address] [place] [address] Thomas Mack MD NO ADDRESS ON FILE MALIGN NEOPL PROSTATE (CMS/HCC) (Primary Dx) Social History Tobacco Use Types Packs/Day Years Used Date Smoking Tobacco: Never Assessed Sex and Gender Information Value Date Recorded Sex Assigned at Not on file Legal Sex Male 6:16 AM ACCESS SPEC Gender Identity Not on file Sexual Orientation Not on file documented as of this encounter Plan of Treatment Not on file documented as of this encounter Visit Diagnoses Diagnosis Malignant neoplasm of prostate (CMS/HCC)- Primary Malignant neoplasm of prostate documented in this encounter Care Teams Community Living Instructor Relationship Specialty Start Date End Date Marsha Turner MD [address] [place], [place] [address] PCP - General Internal Medicine 05/31/12 documented as of this encounter
--- OUTSIDE RECORDS SUMMARY | 2024-10-11 11:44 | XMS_ITS | Encounter Summary ---
Author Organization [facility] Address [address] [place] [address] Care Team Providers Care Dance Critic Name Role Phone Marsha Turner MD Primary Care Provider +1- [phone] Encounter Details Date Type Department Care Team (Latest Contact Info) Description 09/28/2000 Outpatient Historical [facility] Medicine [address] [place] [address] Lakhwinder Mahmood MD Nonspecific abnormal results of liver function study (Primary Dx) Social History Tobacco Use Types Packs/Day Years Used Date Smoking Tobacco: Never Assessed Sex and Gender Information Value Date Recorded Sex Assigned at Not on file Legal Sex Male 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
--- OUTSIDE RECORDS SUMMARY | 2024-10-11 11:44 | XMS_ITS | Encounter Summary ---
Author Organization [facility] Address [address] [place] [address] Care Team Providers Care Historiography Professor Name Role Phone Marsha Turner MD Primary Care Provider +1- [phone] Encounter Details Date Type Department Care Team (Late st Contact Info) Description 03/05/2008 Outpatient [facility] [address] [place] [address] Aaron Ayala MD [address] [place] [address] Malig Thierno Skin Face NEC Social History Tobacco Use Types Packs/Day Years Used Date Smoking Tobacco: Never Assessed Sex and Gender Information Value Date Recorded Sex Assigned at Not on file Legal Sex Male 6:16 AM RODDING ANODE WORKER Gender Identity Not on file Sexual Orientation Not on file documented as of this encounter Progress Notes * Elenita Lora - 03/07/2008 8:42 AM CSTQuick Note: Pt's notified of results, adq tx. Recheck 4 months. ING ANODE WORKER documented in this encounter Plan of Treatment Not on file documented as of this encounter Procedures Procedure Name Priority Date/Time Associated Diagnosis Comments PATHOLOGY Routine 03/05/2008 1:19 PM RODDING ANODE WORKER documented in this encounter Results * PATHOLOGY (03/05/2008 1:19 PM RODDING ANODE WORKER) PATHOLOGY/CYT OLOGY REPORT 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 Treated by C&D. Specimen Source MIDDLE UPPER FOREHEAD Gross Description Received in formalin is a white papule measuring 0.4 x 0.4 x 0.1 cm with a blanchard pigmented lesion measuring 0.1 x 0.1 cm. The specimen is bisected and submitted in cassette A1. *Gross examination performed at [facility], [facility] [place] [address] DI RP /WLS Microscopic Description Sections show a poorly circumscribed, lobular proliferation of basaloid keratinocytes and sebocytes. There are some keratinocytes with atypical nuclear features, and there are scattered mitotic figures. 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 INTERFACE SYSTEM 03/05/2008 1:19 PM RODDING ANODE WORKER us Aaron Ayala MD PATHOLOGY/CYTOLOGY ORDERABL ES Final Result INTERFACE SYSTEM Refer to clinic/hospital department documented in this encounter Visit Diagnoses Diagnosis Other and unspecified malignant neoplasm of skin of other and unspecified parts of face documented in this encounter Care Teams Historiography Professor Relationship Specialty Start Date End Date Marsha Turner MD [address] [place] [address] PCP - General Internal Medicine 05/31/12 documented as of this encounter
--- OUTSIDE RECORDS SUMMARY | 2024-10-11 11:44 | XMS_ITS | Encounter Summary ---
Author Organization [facility] Address [address] [place] [address] Care Team Providers Care Allergy And Immunology Chief Name Role Phone Marsha Turner MD Primary Care Provider +1- [phone] Encounter Details Date Type Department Care Team (Latest Contact Info) Description 03/11/1998 Outpatient Historical [facility] [address] [place] [address] Giovanni Corrigan MD [address] [place] [id number] Coronary atherosclerosis of curyung coronary artery (Primary Dx) Social History Tobacco Use Types Packs/Day Years Used Date Smoking Tobacco: Never Assessed Sex and Gender Information Value Date Recorded Sex Assigned at Not on file Legal Sex Male 6: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
--- OUTSIDE RECORDS SUMMARY | 2024-10-11 11:44 | XMS_ITS | Encounter Summary ---
Author Organization [facility] Address [address] [place] [address] Care Team Providers Care Industrial Gas Fitter Helper Name Role Phone Marsha Turner MD Primary Care Provider +1- [phone] Encounter Details Date Type Department Care Team (Latest Contact Info) Description 12/31/2003 Outpatient Historical [facility] Cardiac Dialysis Clinical Manager [address] [place] [address] Hosea Wilson MD [address] [facility] [address] [place] [address] CORON ATHEROSCL [place] CORON VESSEL (Primary Dx) Social History Tobacco Use Types Packs/Day Years Used Date Smoking Tobacco: Never Assessed Sex and Gender Information Value Date Recorded Sex Assigned at Not on file Legal Sex Male 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
--- OUTSIDE RECORDS SUMMARY | 2024-10-11 11:44 | XMS_ITS | Encounter Summary ---
Author Organization [facility] Address [address] [place] [address] Care Team Providers Care Epic Ambulatory Specialists Name Role Phone Marsha Turner MD Primary Care Provider +1- [phone] Encounter Details Date Type Department Care Team (Latest Contact Info) Description 06/14/2006 Outpatient [facility] Gastroenterology[address] [place] [address] Abilio Bagley MD [address] [place] [address] Acute Pancreatitis (Primary Dx) Social History Tobacco Use Types Packs/Day Years Used Date Smoking Tobacco: Never Assessed Sex and Gender Information Value Date Recorded Sex Assigned at Not on file Legal Sex Male 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
--- OUTSIDE RECORDS SUMMARY | 2024-10-11 11:44 | XMS_ITS | Encounter Summary ---
Author Organization [facility] Address [address] 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
--- OUTSIDE RECORDS SUMMARY | 2024-10-11 11:44 | XMS_ITS | Encounter Summary ---
Author Organization [facility] Address [address] [place] [address] Care Team Providers Care Manager Field Services Name Role Phone Marsha Turner MD Primary Care Provider +1- [phone] Encounter Details Date Type Department Care Team (Late st Contact Info) Description 05/24/2004 Inpatient Historical HIS IN BED Marj Hardy MD NO ADDRESS ON FILE ASTHMA UNSPECIFIED (Primary Dx) Social History Tobacco Use Types Packs/Day Years Used Date Smoking Tobacco: Never Assessed Sex and Gender Information Value Date Recorded Sex Assigned at Not on file Legal Sex Male 6:16 AM MACHINE PULLER AND LASTER Gender Identity Not on file Sexual Orientation Not on file documented as of this encounter Plan of Treatment Not on file documented as of this encounter Procedures Procedure Name Priority Date/Time Associated Diagnosis Comments PSA MEDICARE SCREEN Routine 05/28/2004 8 :26 AM MACHINE PULLER AND LASTER URINALYSIS MICROSCOPY ONLY Routine 05/27/2004 8:51 PM MACHINE PULLER AND LASTER URINALYSIS W/REFLEX MICROSCOPIC Routine 05/27/2004 8:51 PM MACHINE PULLER AND LASTER CBC WITH DIFFERENTIAL Routine 05/26/2004 5:07 AM MACHINE PULLER AND LASTER TSH Routine 05/26/2004 5:07 AM MACHINE PULLER AND LASTER LIPID PANEL Routine 05/26/2004 5:07 AM MACHINE PULLER AND LASTER BASIC METABOLIC PANEL Routine 05/26/2004 5:07 AM MACHINE PULLER AND LASTER URINALYSIS MICROSCOPY ONLY Routine 05/25/2004 2:02 PM MACHINE PULLER AND LASTER URINALYSIS W/REFLEX MICROSCOPIC Routine 05/25/2004 2:02 PM MACHINE PULLER AND LASTER PTT Routine 05/25/2004 5:41 AM MACHINE PULLER AND LASTER CBC WITHOUT DIFFERENTIAL Routine 05/25/2004 5:41 AM MACHINE PULLER AND LASTER CARDIAC ENZYMES Routine 05/25/2004 3:42 AM MACHINE PULLER AND LASTER CARDIAC ENZYMES Routine 05/24/2004 9:06 PM MACHINE PULLER AND LASTER URINALYSIS MICROSCOPY ONLY Routine 05/24/2004 5:22 PM MACHINE PULLER AND LASTER URINALYSIS W/REFLEX MICROSCOPIC Routine 05/24/2004 5:22 PM MACHINE PULLER AND LASTER CARDIAC ENZYMES Routine 05/24/2004 3:18 PM MACHINE PULLER AND LASTER PTT Routine 05/24/2004 3:18 PM MACHINE PULLER AND LASTER DRUG SCREEN, URINE Routine 05/24/2004 10 :52 AM MACHINE PULLER AND LASTER D-DIMER Routine 05/24/2004 9:30 AM MACHINE PULLER AND LASTER documented in this encounter Results * PSA MEDICARE SCREEN (05/28/2004 8:26 AM MACHINE PULLER AND LASTER) PSA 2.8 0.0 - 4.0 ng/mL INTERFACE SYSTEM Comment:Results for patients receiving treatment must be evaluated individually by the physician. 05/28/2004 8:26 AM MACHINE PULLER AND LASTER us Marj Hardy MD CHEMISTRY ORDERABLES COM Final Result INTERFACE SYSTEM Refer to clinic/hospital department * (ABNORMAL) URINALYSIS (05/27/2004 8:51 PM MACHINE PULLER AND LASTER) COLOR UA Yellow Straw INTERFACE SYSTEM CLARITY UA Clear Clear INTERFACE SYSTEM LEUKOCYTE ESTERASE UA NEGATIVE NEGATIVE INTERFACE SYSTEM NITRITE UA NEGATIVE NEGATIVE INTERFACE SYSTEM PH UA 5.5 5.0 - 9.0 INTERFACE SYSTEM PROTEIN UA NEGATIVE NEGATIVE INTERFACE SYSTEM GLUCOSE UA NEGATIVE NEGATIVE INTERFACE SYSTEM KETONES UA NEGATIVE NEGATIVE INTERFACE SYSTEM UROBILINOGEN UA 1.0 INTE RFACE SYSTEM BILIRUBIN UA NEGATIVE NEGATIVE INTERFA CE SYSTEM BLOOD UA NEGATIVE NEGATIVE INTERFACE SYSTEM SPECIFIC GRAVITY UA 1.010 1.005 - 1.030 INTERFACE SYSTEM MICRO EXAM Yes(A) No INTERFACE SYSTEM 05/27/2004 8:51 PM MACHINE PULLER AND LASTER Thomas Mack MD URINE ORDERABLES Final Result Performing Organization Address City/[facility] Co de Phone Number INTERFACE SYSTEM Refer to clinic/hospital department * URINALYSIS MICROSCOPY ONLY (05/27/2004 8:51 PM MACHINE PULLER AND LASTER) WBC URINE None Seen 0 - 2 INTERFACE SYSTEM RBC UA None Seen 0 - 2 INTERFACE SYSTEM HYALINE CAST 0-2 0 - 2 INTERFA CE SYSTEM 05/27/2004 8:51 PM MACHINE PULLER AND LASTER Thomas Mack MD URINE ORDERABLES Final Result Performing Organization Address [facility] Phone Number INTERFACE SYSTEM Refer to clinic/hospital department * (ABNORMAL) CBC WITH DIFFERENTIAL (05/26/2004 5:07 AM MACHINE PULLER AND LASTER) WBC 3.7(L) 4.8 - 10.8 K/ul INTERFACE SYSTEM RBC 4.31(L) 4.60 - 6.20 Mil/ul INTERFACE SYSTEM HEMOGLOBIN 12.4(L) 14.0 - 18.0 g/dL INTERFACE SYSTEM HEMATOCRIT 38.4(L) 41.0 - 53.0 % INTERFACE SYSTEM MCV 89.1 84.0 - 103.0 Fl INTERFACE SYSTEM MCH 28.8 27.0 - 34.0 pg INTERFACE SYSTEM MCHC 32.3 30.0 - 35.0 g/dL INTERFACE SYSTEM RDW 13.0 11.0 - 14.5 percent(in active) INTERFACE SYSTEM PLATELETS 206 140 - 440 K/ul INTERFACE SYSTEM MPV 10.0 8.9 - 12.8 Fl INTERFACE SYSTEM NEUTROPHILS 80.9(H) 42.2 - 75.2 percent(in active) INTERFACE SYSTEM LYMPHOCYTES 16.9(L) 24.0 - 44.0 percent(in active) INTERFACE SYSTEM MONOCYTES 1.6(L) 2.0 - 10.0 percent(in active) INTERFACE SYSTEM EOSINOPHILS 0.3 0.0 - 7.0 % INTERFACE SYSTEM BASOPHILS 0.3 0.0 - 1.0 percent(in active) INTERFACE SYSTEM NEUTROPHIL ABSOLUTE 3.0 2.0 - 8.0 K/uL INTERFACE SYSTEM LYMPHOCYTE ABSOLUTE 0.6(L) 1.2 - 4.0 K/ul INTERFACE SYSTEM MONOCYTE ABSOLUTE 0.1 0.1 - 0.6 K/ul INTERFACE SYSTEM EOSINOPHIL ABSOLUTE 0.0 0.0 - 0.7 K/ul INTERFACE SYSTEM BASOPHILS ABSOLUTE 0.0 0.0 - 0.2 K/ul INTERFACE SYSTEM 05/26/2004 5:07 AM MACHINE PULLER AND LASTER Marj Hardy MD HEMATOLOGY ORDERABLES Final Re sult Performing Organization Address [facility] de Phone Number INTERFACE SYSTEM Refer to clinic/hospital department * (ABNORMAL) TSH (05/26/2004 5:07 AM MACHINE PULLER AND LASTER) TSH <0.03(L) 0.49 - 4.67 uIU/ml INTERFACE SYSTEM 05/26/2004 5:07 AM MACHINE PULLER AND LASTER Marj Hardy MD CHEMISTRY ORDERABLES Final Res ult Performing Organization Address [facility] Co de Phone Number INTERFACE SYSTEM Refer to clinic/hospital department * (ABNORMAL) BASIC METABOLIC PANEL (05/26/2004 5:07 AM MACHINE PULLER AND LASTER) GLUCOSE 167(H) 70 - 110 mg/dL INTERFACE SYSTEM BUN 14 9 - 20 mg/dL INTERFACE SYSTEM CREATININE 1.1 0.7 - 1.5 mg/dL (inactive) INTERFACE SYSTEM SODIUM 138 136 - 145 mEq/L INTERFACE SYSTEM POTASSIUM 4.1 3.5 - 5.0 mEq/L INTERFACE SYSTEM CHLORIDE 108 95 - 110 mEq/L INTERFACE SYSTEM CO2 24 22 - 32 mmol/l INTERFACE SYSTEM ANION GAP 10 9 - 20 mEq/L INTERFACE SYSTEM OSMOLALITY, CALCULATED 289 275 - 295 mOsm/Kg INTERFACE SYSTEM CALCIUM 9.9 8.4 - 10.5 mg/dL INTERFACE SYSTEM 05/26/2004 5:07 AM MACHINE PULLER AND LASTER Result [facility] Marj Hardy MD CHEMISTRY ORDERABLES Final Res ult Performing Organization Address [facility] Phone Number INTERFACE SYSTEM Refer to clinic/hospital department * (ABNORMAL) LIPID PANEL (05/26/2004 5:07 AM MACHINE PULLER AND LASTER) CHOLESTEROL 120 75 - 200 mg/dL INTERFACE SYSTEM TRIGLYCERIDE 66 0 - 200 mg/dL INTERFACE SYSTEM CALCULATED TOTAL CHOLESTEROL TO HDL RATIO 2.93(L) 3.43 - 4.97 INTERFACE SYSTEM HDL 41 40 - 60 mg/dL INTERFACE SYSTEM LDL CALCULATED 66 0 - 130 mg/dL INTERFACE SYSTEM 05/26/2004 5:07 AM MACHINE PULLER AND LASTER Result [facility] Mraj Hardy MD CHEMISTRY ORDERABLES Final Res ult Performing Organization Address [facility] Phone Number INTERFACE SYSTEM Refer to clinic/hospital department * (ABNORMAL) URINALYSIS (05/25/2004 2:02 PM MACHINE PULLER AND LASTER) COLOR UA Yellow Straw INTERFACE SYSTEM CLARITY UA Clear Clear INTERFACE SYSTEM LEUKOCYTE ESTERASE UA NEGATIVE NEGATIVE INTERFACE SYSTEM NITRITE UA NEGATIVE NEGATIVE INTERFACE SYSTEM PH UA 5.0 5.0 - 9.0 INTERFACE SYSTEM PROTEIN UA NEGATIVE NEGATIVE INTERFACE SYSTEM GLUCOSE UA NEGATIVE NEGATIVE INTERFACE SYSTEM KETONES UA NEGATIVE NEGATIVE INTERFACE SYSTEM UROBILINOGEN UA 0.2 INTE RFACE SYSTEM BILIRUBIN UA NEGATIVE NEGATIVE INTERFA CE SYSTEM BLOOD UA Small(A) NEGATIVE INTERFACE SYSTEM SPECIFIC GRAVITY UA 1.015 1.005 - 1.030 INTERFACE SYSTEM MICRO EXAM Yes(A) No INTERFACE SYSTEM 05/25/2004 2:02 PM MACHINE PULLER AND LASTER Result [facility] Marj Hardy MD URINE ORDERABLES Final Result Performing Organization Address [facility] Phone Number INTERFACE SYSTEM Refer to clinic/hospital department * (ABNORMAL) URINALYSIS MICROSCOPY ONLY (05/25/2004 2:02 PM MACHINE PULLER AND LASTER) WBC URINE 0-2 0 - 2 INTERFACE SYSTEM RBC UA 3-5(A) 0 - 2 INTERFACE SYSTEM HYALINE CAST None Seen 0 - 2 INTERFA CE SYSTEM BACTERIA UA None Seen None Seen INTERFAC E SYSTEM 05/25/2004 2:02 PM MACHINE PULLER AND LASTER Marj Hardy MD URINE ORDERABLES Final Result Performing Organization Address [facility] de Phone Number INTERFACE SYSTEM Refer to clinic/hospital department * (ABNORMAL) PTT (05/25/2004 5:41 AM MACHINE PULLER AND LASTER) PTT 47.8(H) 24.3 - 37.5 Secs INTERFACE SYSTEM Comment:Therapeutic Range: 05/25/2004 5:41 AM MACHINE PULLER AND LASTER Marj Hardy MD HEMATOLOGY ORDERABLES Final Re sult Performing Organization Address City/[facility] de Phone Number INTERFACE SYSTEM Refer to clinic/hospital department * (ABNORMAL) CBC WITHOUT DIFFERENTIAL (05/25/2004 5:41 AM MACHINE PULLER AND LASTER) WBC 4.5(L) 4.8 - 10.8 K/ul INTERFACE SYSTEM RBC 3.92(L) 4.60 - 6.20 Mil/ul INTERFACE SYSTEM HEMOGLOBIN 11.0(L) 14.0 - 18.0 g/dL INTERFACE SYSTEM HEMATOCRIT 35.0(L) 41.0 - 53.0 % INTERFACE SYSTEM MCV 89.3 84.0 - 103.0 Fl INTERFACE SYSTEM MCH 28.1 27.0 - 34.0 pg INTERFACE SYSTEM MCHC 31.4 30.0 - 35.0 g/dL INTERFACE SYSTEM RDW 13.3 11.0 - 14.5 percent(in active) INTERFACE SYSTEM PLATELETS 171 140 - 440 K/ul INTERFACE SYSTEM MPV 9.8 8.9 - 12.8 Fl INTERFACE SYSTEM NEUTROPHILS 65.4 42.2 - 75.2 percent(in active) INTERFACE SYSTEM LYMPHOCYTES 20.5(L) 24.0 - 44.0 percent(in active) INTERFACE SYSTEM MONOCYTES 10.1(H) 2.0 - 10.0 percent(in active) INTERFACE SYSTEM EOSINOPHILS 2.9 0.0 - 7.0 % INTERFACE SYSTEM BASOPHILS 1.1(H) 0.0 - 1.0 percent(in active) INTERFACE SYSTEM NEUTROPHIL ABSOLUTE 3.0 2.0 - 8.0 K/uL INTERFACE SYSTEM LYMPHOCYTE ABSOLUTE 0.9(L) 1.2 - 4.0 K/ul INTERFACE SYSTEM MONOCYTE ABSOLUTE 0.5 0.1 - 0.6 K/ul INTERFACE SYSTEM EOSINOPHIL ABSOLUTE 0.1 0.0 - 0.7 K/ul INTERFACE SYSTEM BASOPHILS ABSOLUTE 0.1 0.0 - 0.2 K/ul INTERFACE SYSTEM 05/25/2004 5:41 AM MACHINE PULLER AND LASTER Result Jennifer Hardy MD HEMATOLOGY ORDERABLES Final Re sult Performing Organization Address City/[facility] Co de Phone Number INTERFACE SYSTEM Refer to clinic/hospital department * CARDIAC ENZYMES (05/25/2004 3:42 AM MACHINE PULLER AND LASTER) CKMB 0.7 0.0 - 5.5 ng/mL INTERFACE SYSTEM TROPONIN I 0.0 0.0 - 1.5 ng/mL INTERFACE SYSTEM Comment: Expected Range: Normal 0.0 - 1.5 ng/ml Borderline 1.6 - 4.4 ng/ml Positive > = 4.5 ng/ml 05/25/2004 3:42 AM MACHINE PULLER AND LASTER Result Jennifer Hardy MD CHEMISTRY ORDERABLES Final Res ult Performing Organization Address City/[facility] Co de Phone Number INTERFACE SYSTEM Refer to clinic/hospital department * CARDIAC ENZYMES (05/24/2004 9:06 PM MACHINE PULLER AND LASTER) CKMB <0.7 0.0 - 5.5 ng/mL INTERFACE SYSTEM TROPONIN I 0.0 0.0 - 1.5 ng/mL INTERFACE SYSTEM Comment: Expected Range: Normal 0.0 - 1.5 ng/ml Borderline 1.6 - 4.4 ng/ml Positive > = 4.5 ng/ml 05/24/2004 9:06 PM MACHINE PULLER AND LASTER Result Jennifer Hardy MD CHEMISTRY ORDERABLES Final Res ult Performing Organization Address [facility] Phone Number INTERFACE SYSTEM Refer to clinic/hospital department * (ABNORMAL) URINALYSIS (05/24/2004 5:22 PM MACHINE PULLER AND LASTER) COLOR UA Yellow Straw INTERFACE SYSTEM CLARITY UA Clear Clear INTERFACE SYSTEM LEUKOCYTE ESTERASE UA NEGATIVE NEGATIVE INTERFACE SYSTEM NITRITE UA NEGATIVE NEGATIVE INTERFACE SYSTEM PH UA 5.5 5.0 - 9.0 INTERFACE SYSTEM PROTEIN UA NEGATIVE NEGATIVE INTERFACE SYSTEM GLUCOSE UA NEGATIVE NEGATIVE INTERFACE SYSTEM KETONES UA NEGATIVE NEGATIVE INTERFACE SYSTEM UROBILINOGEN UA 2.0 INTE RFACE SYSTEM BILIRUBIN UA NEGATIVE NEGATIVE INTERFA CE SYSTEM BLOOD UA Large(A) NEGATIVE INTERFACE SYSTEM SPECIFIC GRAVITY UA 1.015 1.005 - 1.030 INTERFACE SYSTEM MICRO EXAM Yes(A) No INTERFACE SYSTEM 05/24/2004 5:22 PM MACHINE PULLER AND LASTER Marj Hardy MD URINE ORDERABLES Final Result Performing Organization Address [facility] Phone Number INTERFACE SYSTEM Refer to clinic/hospital department * (ABNORMAL) URINALYSIS MICROSCOPY ONLY (05/24/2004 5:22 PM MACHINE PULLER AND LASTER) WBC URINE 0-2 0 - 2 INTERFACE SYSTEM RBC UA >80(A) 0 - 2 INTERFACE SYSTEM HYALINE CAST None Seen 0 - 2 INTERFA CE SYSTEM BACTERIA UA None Seen None Seen INTERFAC E SYSTEM 05/24/2004 5:22 PM MACHINE PULLER AND LASTER Marj Hardy MD URINE ORDERABLES Final Result Performing Organization Address [facility] Phone Number INTERFACE SYSTEM Refer to clinic/hospital department * CARDIAC ENZYMES (05/24/2004 3:18 PM MACHINE PULLER AND LASTER) CKMB 0.7 0.0 - 5.5 ng/mL INTERFACE SYSTEM TROPONIN I 0.0 0.0 - 1.5 ng/mL INTERFACE SYSTEM Comment: Expected Range: Normal 0.0 - 1.5 ng/ml Borderline 1.6 - 4.4 ng/ml Positive > = 4.5 ng/ml 05/24/2004 3:18 PM MACHINE PULLER AND LASTER Result [facility] Marj Hardy MD CHEMISTRY ORDERABLES Final Res ult Performing Organization Address [facility] Phone Number INTERFACE SYSTEM Refer to clinic/hospital department * (ABNORMAL) PTT (05/24/2004 3:18 PM MACHINE PULLER AND LASTER) PTT 75.3(H) 24.3 - 37.5 Secs INTERFACE SYSTEM Comment:Therapeutic Range: 05/24/2004 3:18 PM MACHINE PULLER AND LASTER Result [facility] Marj Hardy MD HEMATOLOGY ORDERABLES Final Re sult Performing Organization Address [facility] Phone Number INTERFACE SYSTEM Refer to clinic/hospital department * (ABNORMAL) DRUG SCREEN, URINE (05/24/2004 10:52 AM MACHINE PULLER AND LASTER) OPIATE QUAL, URINE Drug Positive(A) Drug Negative INTERFACE SYSTEM AMPHETAMINE QUAL, URINE Drug Negative Drug Negative INTERFACE SYSTEM BARBITURATE QUAL, URINE Drug Negative Drug Negative INTERFACE SYSTEM COCAINE QUAL URINE Drug Negative Drug Negative INTERFACE SYSTEM PCP QUAL, URINE Drug Negative Drug Negative INTERFACE SYSTEM CANNABINOIDS QUAL, URINE Drug Negative Drug Negative INTERFACE SYSTEM BENZODIAZEPINE QUAL, URINE Drug Negative Drug Negative INTERFACE SYSTEM 05/24/2004 10:5 2 AM MACHINE PULLER AND LASTER Result Jennifer Hardy MD URINE ORDERABLES Final Result Performing Organization Address [facility] Phone Number INTERFACE SYSTEM Refer to clinic/hospital department * (ABNORMAL) D-DIMER (05/24/2004 9:30 AM MACHINE PULLER AND LASTER) D-DIMER QUANT 2.0(H) 0.0 - 0.5 mcg/mL INTERFACE SYSTEM 05/24/2004 9:30 AM MACHINE PULLER AND LASTER Result Jennifer Hardy MD HEMATOLOGY ORDERABLES Final Re sult Performing Organization Address [facility] de Phone Number INTERFACE SYSTEM Refer to clinic/hospital department documented in this encounter Visit Diagnoses Diagnosis Unspecified asthma(493.90)- Primary Unspecified asthma documented in this encounter Care Teams Manager Field Services Relationship Specialty Start Date End Date Marsha Turner MD [address] [place] [address] PCP - General Internal Medicine 05/31/12 documented as of this encounter
--- OUTSIDE RECORDS SUMMARY | 2024-10-11 11:44 | XMS_ITS | Encounter Summary ---
Author Organization [facility] Address [address] [place] [address] Care Team Providers Care Renewal Specialist Name Role Phone Marsha Turner MD Primary Care Provider +1- [phone] Encounter Details Date Type Department Care Team (Late st Contact Info) Description 06/14/2006 Outpatient Historical [facility] [address] 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
--- OUTSIDE RECORDS SUMMARY | 2024-10-11 11:44 | XMS_ITS | Encounter Summary ---
Author Organization [facility] Address [address]: [place] [address] Care Team Providers Care Biology Adjunct Instructor Name Role Phone Marsha Turner MD Primary Care Provider +1- [phone] Encounter Details Date Type Department Care Team (Latest Contact Info) Description 01/20/1990 Emergency Social History Tobacco Use Types Packs/Day Years Used Date Smoking Tobacco: Never Assessed Sex and Gender Information Value Date Recorded Sex Assigned at Not on file Legal Sex Male 6:16 AM RISK ENGINEER Gender Identity Not on file Sexual Orientation Not on file documented as of this encounter Plan of Treatment Not on file documented as of this encounter Visit Diagnoses Not on filedocumented in this encounter Care Teams Biology Adjunct Instructor Relationship Specialty Start Date End Date Marsha Turner MD [address] [place], [place] [address] PCP - General Internal Medicine 05/31/12 documented as of this encounter
--- OUTSIDE RECORDS SUMMARY | 2024-10-11 11:44 | XMS_ITS | Encounter Summary ---
Author Organization [facility] Address [address] [place] [address] Care Team Providers Care Supervisor Wound Name Role Phone Marsha Turner MD Primary Care Provider +1- [phone] Encounter Details Date Type Department Care Team (Late st Contact Info) Description 08/26/2004 Outpatient Historical [facility] Urology- [address]tr[address], 3[address] [place] [id number] Thomas Mack MD NO ADDRESS ON FILE CHRONIC PROSTATITIS (Primary Dx); FAMILY HX-PROSTATIC MALIGNANCY Social History Tobacco Use Types Packs/Day Years Used Date Smoking Tobacco: Never Assessed Sex and Gender Information Value Date Recorded Sex Assigned at Not on file Legal Sex Male 6:16 AM ATTENDANCE OFFICER Gender Identity Not on file Sexual Orientation Not on file documented as of this encounter Plan of Treatment Not on file documented as of this encounter Visit Diagnoses Diagnosis Chronic prostatitis- Primary Family history of malignant neoplasm of prostate documented in this encounter Care Teams Supervisor Wound Relationship Specialty Start Date End Date Marsha Turner MD [address] [place] [address] PCP - General Internal Medicine 05/31/12 documented as of this encounter
--- OUTSIDE RECORDS SUMMARY | 2024-10-11 11:44 | XMS_ITS | Encounter Summary ---
Author Organization [facility] Address [address] [place] [address] Care Team Providers Care Glucose And Syrup Weigher Name Role Phone Marsha Turner MD Primary Care Provider +1- [phone] Encounter Details Date Type Department Care Team (Late st Contact Info) Description 06/14/2006 Outpatient Historical [facility] Imaging Services-[facility] [place] [address] [place] [id number] Thomas Mack MD NO ADDRESS ON FILE Slow Urinary Stream (Primary Dx) Social History Tobacco Use Types Packs/Day Years Used Date Smoking Tobacco: Never Assessed Sex and Gender Information Value Date Recorded Sex Assigned at Not on file Legal Sex Male 6:16 AM 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
--- OUTSIDE RECORDS SUMMARY | 2024-10-11 11:44 | XMS_ITS | Encounter Summary ---
Author Organization [facility] Address [address] [place] [address] Care Team Providers Care Director Of Philanthropy Name Role Phone Marsha Turner MD Primary Care Provider +1- [phone] Encounter Details Date Type Department Care Team (Late st Contact Info) Description 06/14/2006 Outpatient Historical [facility] Imaging Services-[facility] [place] [address] [place] [phone] Thomas Mack MD NO ADDRESS ON FILE Malignant Neoplasm of Prostate (CMS/HCC) (Primary Dx) Social History Tobacco Use Types Packs/Day Years Used Date Smoking Tobacco: Never Assessed Sex and Gender Information Value Date Recorded Sex Assigned at Not on file Legal Sex Male 6:16 AM MAINTENANCE SHOP 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
--- OUTSIDE RECORDS SUMMARY | 2024-10-11 11:44 | XMS_ITS | Encounter Summary ---
Author Organization [facility] Address 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
--- OUTSIDE RECORDS SUMMARY | 2024-10-11 11:44 | XMS_ITS | Encounter Summary ---
Author Organization [facility] Address [address] [place] [address] Care Team Providers Care Thermal Cutter Hand Name Role Phone Marsha Turner MD Primary Care Provider +1- [phone] Encounter Details Date Type Department Care Team (Late st Contact Info) Description 02/26/2005 Outpatient Historical [facility] Urology- [address] Entrance B, 3rd [place] [phone] Thomas Mack MD NO ADDRESS ON FILE Malig emmett prostate (Primary Dx) Social History Tobacco Use Types Packs/Day Years Used Date Smoking Tobacco: Never Assessed Sex and Gender Information Value Date Recorded Sex Assigned at Not on file Legal Sex Male 6:16 AM EYELET ROW MARKER Gender Identity Not on file Sexual Orientation Not on file documented as of this encounter Plan of Treatment Not on file documented as of this encounter Visit Diagnoses Diagnosis Malig emmett prostate- Primary Malignant neoplasm of prostate documented in this encounter Care Teams Thermal Cutter Hand Relationship Specialty Start Date End Date Marsha Turner MD [address] [place] [address] PCP - General Internal Medicine 05/31/12 documented as of this encounter
--- OUTSIDE RECORDS SUMMARY | 2024-10-11 11:44 | XMS_ITS | Encounter Summary ---
Author Organization [facility] Address [address] Pagan: [place] [address] Care Team Providers Care Geothermal Operating Engineer Name Role Phone Marsha Turner MD Primary Care Provider +1- [phone] Encounter Details Date Type Department Care Team (Late st Contact Info) Description 07/11/1990 Inpatient Historical Carlos Dorian [address] [place] [address] Social History Tobacco Use Types Packs/Day Years Used Date Smoking Tobacco: Never Assessed Sex and Gender Information Value Date Recorded Sex Assigned at Not on file Legal Sex Male 6:16 AM MAGAZINE FEEDER Gender Identity Not on file Sexual Orientation Not on file documented as of this encounter Plan of Treatment Not on file documented as of this encounter Visit Diagnoses Not on filedocumented in this encounter Care Teams Geothermal Operating Engineer Relationship Specialty Start Date End Date Marsha Turner MD [address] [place] [address] PCP - General Internal Medicine 05/31/12 documented as of this encounter
--- OUTSIDE RECORDS SUMMARY | 2024-10-11 11:44 | XMS_ITS | Encounter Summary ---
Author Organization [facility] Address [address] [place] [address] Care Team Providers Care Attraction Attendant Name Role Phone Marsha Turner MD Primary Care Provider +1- [phone] Encounter Details Date Type Department Care Team (Late st Contact Info) Description 12/09/2004 Outpatient Historical [facility] Urology- [address] Entrance B, 3rd [place] [phone] Thomas Mack MD NO ADDRESS ON FILE Malig emmett prostate (Primary Dx); DYSURIA; Slow urinary stream Social History Tobacco Use Types Packs/Day Years Used Date Smoking Tobacco: Never Assessed Sex and Gender Information Value Date Recorded Sex Assigned at Not on file Legal Sex Male 6:16 AM VARITYPIST Gender Identity Not on file Sexual Orientation Not on file documented as of this encounter Plan of Treatment Not on file documented as of this encounter Visit Diagnoses Diagnosis Malig emmett prostate- Primary Malignant neoplasm of prostate Dysuria Slow urinary stream Slowing of urinary stream documented in this encounter Care Teams Attraction Attendant Relationship Specialty Start Date End Date Marsha Turner MD [address] [place] [address] PCP - General Internal Medicine 05/31/12 documented as of this encounter
--- OUTSIDE RECORDS SUMMARY | 2024-10-11 11:44 | XMS_ITS | Encounter Summary ---
Author Organization [facility] Address [address] 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
--- OUTSIDE RECORDS SUMMARY | 2024-10-11 11:44 | XMS_ITS | Encounter Summary ---
Author Organization [facility] Address [address] [place] [address] Care Team Providers Care Egg Setter Name Role Phone Marsha Turner MD Primary Care Provider +2- [phone] Encounter Details Date Type Department Care Team (Late st Contact Info) Description 09/12/2004 Outpatient Historical [facility] Urology- [address] Entrance B, 3rd [place] [phone] Thomas Mack MD NO ADDRESS ON FILE Elevated PSA (Primary Dx) Social History Tobacco Use Types Packs/Day Years Used Date Smoking Tobacco: Never Assessed Sex and Gender Information Value Date Recorded Sex Assigned at Not on file Legal 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
--- OUTSIDE RECORDS SUMMARY | 2024-10-11 11:44 | XMS_ITS | Encounter Summary ---
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 Gender Identity Not on file Sexual Orientation Not on file documented as of this encounter Plan of Treatment Not on file documented as of this encounter Procedures Procedure Name Priority Date/Time Associated Diagnosis Comments POC GLUCOSE Routine 03/16/2008 1:37 PM SCIENTIST ELECTRONICS POC GLUCOSE Routine 03/16/2008 9:28 AM SCIENTIST ELECTRONICS documented in this encounter Results * (ABNORMAL) POC GLUCOSE (03/16/2008 1:37 PM SCIENTIST ELECTRONICS) GLUCOSE POC 115(H) 60 - 100 mg/dL [facility] Comment:POC Glucose - waived testing: CLIA #[id number] Venous blood specimen (specimen) 03/16/2008 1:37 PM SCIENTIST ELECTRONICS 03/17/2008 2:21 AM SCIENTIST ELECTRONICS Dee Casillas MD POINT OF CARE TESTING Final Resu lt Performing Organization Address [facility] de Phone Number INTERFACE SYSTEM Refer to clinic/hospital department [facility] CLIA# [id number] [address] [place] [address] * (ABNORMAL) POC GLUCOSE (03/16/2008 9:28 AM SCIENTIST ELECTRONICS) GLUCOSE POC 132(H) 60 - 100 mg/dL [facility] Comment:POC Glucose - waived testing: CLIA #[id number] Venous blood specimen (specimen) 03/16/2008 9:28 AM SCIENTIST ELECTRONICS 03/17/2008 1:24 AM SCIENTIST ELECTRONICS Dee Casillas MD POINT OF CARE TESTING Final Resu lt Performing Organization Address [facility] de Phone Number INTERFACE SYSTEM Refer to clinic/hospital department [facility] CLIA# [id number] [address] [place] [address] documented in this encounter Visit Diagnoses Not on filedocumented in this encounter Care Teams Bull Riveter Relationship Specialty Start Date End Date Marsha Turner MD [address] [place] [id number] PCP - General Internal Medicine 05/31/12 documented as of this encounter
--- OUTSIDE RECORDS SUMMARY | 2024-10-11 11:44 | XMS_ITS | Encounter Summary ---
Author Organization [facility] Address [address] [place] [address] Care Team Providers Care Fisheries Biologist Name Role Phone Marsha Turner MD Primary Care Provider +1- [phone] Encounter Details Date Type Department Care Team (Latest Contact Info) Description 05/05/2005 Outpatient [facility] [place] [address] Abilio Bagley MD [address] [place] [address] CHEST PAIN NOS (Primary Dx); STOMACH FUNCTION DIS NEC; DYSPHAGIA Social History Tobacco Use Types Packs/Day Years Used Date Smoking Tobacco: Never Assessed Sex and Gender Information Value Date Recorded Sex Assigned at Not on file Legal Sex Male 6:16 AM SUPPLY TECH Gender Identity Not on file Sexual Orientation Not on file documented as of this encounter Plan of Treatment Not on file documented as of this encounter Visit Diagnoses Diagnosis Chest pain, unspecified- Primary Dyspepsia and other specified disorders of function of stomach Dysphagia documented in this encounter Care Teams Fisheries Biologist Relationship Specialty Start Date End Date Marsha Turner MD [address] [place] [address] PCP - General Internal Medicine 05/31/12 documented as of this encounter
--- OUTSIDE RECORDS SUMMARY | 2024-10-11 11:44 | XMS_ITS | Encounter Summary ---
Author Organization [facility] Address [address] [place] [address] Care Team Providers Care Aerial Erector Name Role Phone Marsha Turner MD Primary Care Provider +1- [phone] Encounter Details Date Type Department Care Team (Late st Contact Info) Description 10/16/2004 Outpatient Historical [facility] Urology- [address] Entrance B, 3rd [place] [phone] Thomas Mack MD NO ADDRESS ON FILE Malig emmett prostate (Primary Dx) Social History Tobacco Use Types Packs/Day Years Used Date Smoking Tobacco: Never Assessed Sex and Gender Information Value Date Recorded Sex Assigned at Not on file Legal 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
--- OUTSIDE RECORDS SUMMARY | 2024-10-11 11:44 | XMS_ITS | Encounter Summary ---
Author Organization [facility] Address [address] [place] [address] Care Team Providers Care Gse Mechanic Name Role Phone Marsha Turner MD Primary Care Provider +1- [phone] Encounter Details Date Type Department Care Team (Late st Contact Info) Description 10/08/2004 Outpatient Historical [facility] [address] [place] [phone] Thomas Mack MD NO ADDRESS ON FILE MALIGN NEOPL PROSTATE (CMS/HCC) (Primary Dx) Social History Tobacco Use Types Packs/Day Years Used Date Smoking Tobacco: Never Assessed Sex and Gender Information Value Date Recorded Sex Assigned at Not on file Legal Sex Male 6:16 AM STONE LAYOUT 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
--- OUTSIDE RECORDS SUMMARY | 2024-10-11 11:44 | XMS_ITS | Encounter Summary ---
Author Organization [facility] Address [address] [place] [address] Care Team Providers Care Tomato Paste Maker Name Role Phone Marsha Turner MD Primary Care Provider +1- [phone] Encounter Details Date Type Department Care Team (Late st Contact Info) Description 03/05/2008 Outpatient Historical [facility] DEFAULT DEPARTMENT Dee Casillas MD [address] [phone] Social History Tobacco Use Types Packs/Day Years Used Date Smoking Tobacco: Never Assessed Sex and Gender Information Value Date Recorded Sex Assigned at Not on file Legal Sex Male 6: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
--- OUTSIDE RECORDS SUMMARY | 2024-10-11 11:44 | XMS_ITS | Encounter Summary ---
Author Organization [facility] Address [address] [place] [address] Care Team Providers Care Straightener And Aligner Name Role Phone Marsha Turner MD Primary Care Provider +1- [phone] Encounter Details Date Type Department Care Team (Latest Contact Info) Description 10/05/2000 Outpatient Historical [facility] Medicine [address] [place] [address] Lakhwinder Mahmood MD Nonspecific abnormal finding in stool contents (Primary Dx) Social History Tobacco Use Types Packs/Day Years Used Date Smoking Tobacco: Never Assessed Sex and Gender Information Value Date Recorded Sex Assigned at Not on file Legal Sex Male 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
[2024-10-11 11:47] VITALS: BP 122/80; PULSE 87; RESP 18; TEMP 37.1; O2SAT 95; BMI 34.5
--- NOTE | 2024-10-11 11:56 | XRR_ITS ---
PROCEDURE INFORMATION: Exam: XR Chest Exam date and time: 10/11/2024 11:56 AM Age: 78 years old Clinical indication: Cough and dyspnea; Additional info: Dyspnea/cough TECHNIQUE: Imaging protocol: Radiologic exam of the chest. Views: 1 view. COMPARISON: CT chest abdpel w/*[id number] 08/14/2024 9:12 AM FINDINGS: Tubes, catheters and devices: Right-sided port catheter tip is in the superior vena cava. Lungs: Unremarkable. No consolidation. Pleural spaces: Unremarkable. No pleural effusion. No pneumothorax. Heart/Mediastinum: Unremarkable. No cardiomegaly. Bones/joints: Cervical and thoracolumbar spinal hardware is again seen. No acute findings. XR/XR chest 1V portable [id number] IMPRESSION: No acute findings.
--- NOTE | 2024-10-11 12:16 | W.ED.WEAKNES ---
HPI - Weakness General: Chief complaint: Weakness Stated complaint: dizzy Time Seen by Provider: 10/11/24 11:55 History of Present Illness: 78-year-old male presents emergency room complaining of dizziness feeling like he is going blackout. 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 Has a history of seronegative rheumatoid arthritis he was on Orencia was stopped when he developed a cancer. He is current receiving immune therapy. Between treatments he frequently gets IV fluids he is not able to get any recently has been lightheaded and dizzy Associated symptoms: Denies chest pain, chills, dysuria or fever(s) Related Data Home Medications ?Medication ?Instructions ?Recorded ?Confirmed nitroglycerin 0.4 mg sublingual 0.4 mg sublingual Q5M PRN Chest 12/22/22 10/11/24 tablet (Nitrostat) Pain liothyronine 5 mcg tablet 5 mcg PO BID 04/01/23 10/11/24 oxybutynin chloride 5 mg 5 mg PO DAILY 10/22/23 10/11/24 tablet,extended release 24 hr bumetanide 2 mg tablet 2 mg PO BID PRN Edema 11/30/23 10/11/24 carvedilol 12.5 mg tablet 12.5 mg PO DAILY 05/05/24 10/11/24 mupirocin 2 % topical ointment 1 applic topical DIRECTED 05/05/24 10/11/24 acetaminophen 500 mg capsule 1,000 mg PO TID PRN Pain 08/17/24 10/11/24 hydralazine 50 mg tablet 50 mg PO TID 08/17/24 10/11/24 potassium chloride 10 mEq 20 meq PO BID PRN while on 08/17/24 10/11/24 tablet,extended release Bumetanide levothyroxine 150 mcg tablet 150 mcg PO DAILY 10/11/24 10/11/24 (Synthroid) lidocaine-prilocaine 2.5 %-2.5 % 1 applic topical PRN PRN port 10/11/24 10/11/24 topical cream access lorazepam 0.5 mg tablet 0.25 - 0.5 mg PO TID PRN nausea 10/11/24 10/11/24 and vomiting pregabalin 25 mg capsule 25 mg PO BID 10/11/24 10/11/24 silver sulfadiazine 1 % topical 1 applic topical BID PRN Skin 10/11/24 10/11/24 cream (Silvadene) Irritation Previous Rx's ?Medication ?Instructions ?Recorded MARK BRACE #1 ea 08/01/20 Modification to AFO Brace to the #1 ea 02/02/22 left apixaban 5 mg tablet (Eliquis) 5 mg PO BID@0900,2100 #60 tabs 11/12/22 Held on 08/16/24. Instructions: Resume on 08/17/24. amiodarone 200 mg tablet (Pacerone) 200 mg PO DAILY #30 tabs 02/19/23 sennosides 8.6 mg-docusate sodium 1 tab PO DAILY #30 tabs 04/06/23 50 mg tablet (Stool Softener-Laxative) atorvastatin 40 mg tablet 40 mg PO BEDTIME #90 tabs 08/10/23 isosorbide mononitrate 30 mg 60 mg (2 x 30 mg) PO BEDTIME #180 01/28/24 tablet,extended release 24 hr tabs omeprazole 40 mg capsule,delayed 40 mg PO QAM #90 caps 06/22/24 release prednisone 10 mg tablet 10 mg PO DAILY #90 tabs 06/22/24 tramadol 50 mg tablet 50 mg PO BID PRN pain #30 tabs 07/13/24 hydromorphone 2 mg tablet 1 mg (1/2 x 2 mg) PO Q8H PRN pain 08/18/24 (Dilaudid) 30 days #25 tabs ondansetron HCl 4 mg tablet 8 mg (2 x 4 mg) PO Q8H PRN nausea 09/28/24 and vomiting #90 tabs prochlorperazine maleate 10 mg 10 mg PO Q6H PRN nausea and 09/28/24 tablet (Compazine) vomiting #30 tabs Allergies Allergy/AdvReac Type Severity Reaction Status Date / Time adhesive tape Allergy tears skin Verified 09/28/24 09:56 off metoclopramide (From Reglan) Allergy Unknown Verified 09/28/24 09:56 morphine Allergy ALGY-Hives Verified 09/28/24 09:56 tamsulosin (From Flomax) Allergy ADR/ALGY-Hy Verified 09/28/24 09:56 potension zolpidem (From Ambien) Allergy Unknown Verified 09/28/24 09:56 hydrocodone AdvReac Mild Hypotension Verified 09/28/24 09:56 oxycodone AdvReac Mild Hypotension Verified 09/28/24 09:56 Review of Systems Const: Denies: fever(s) or chills Card: Denies: chest pain Resp: Denies: dyspnea GI: Denies: abdominal pain : Denies: dysuria, urinary frequency or urinary urgency Musc: Denies: neck pain or back pain Skin/Breast: Denies: rash PFSH ED PFSH: Medical History (Updated 10/11/24 @ 14:50 by Checo Chairez DO) Hypothyroid ADAMS (dyspnea on exertion) Atrial fibrillation Ascending aortic aneurysm Patient had a CT of the chest on 07/14/2023. The ascending aorta was found to be 4.0 cm in diameter. Essentially unchanged CHF (congestive heart failure), NYHA class III EF 10/2022 43% on stress test, 50% on echo HTN (hypertension) Other iron deficiency anemias Anemia High risk medication use prednisone and leflunomide 12/2022 Peripheral arterial disease Chronic anticoagulation eliquis Unstable angina CAD (coronary artery disease) Seroma, postoperative Spinal stenosis, thoracic Degenerative disc disease, thoracic History of prostate cancer Urgency incontinence Renal cyst Acquired calcaneovarus deformity of both feet Lumbar stenosis with neurogenic claudication Orthostatic hypotension Venous insufficiency of both lower extremities Acute blood loss as cause of postoperative anemia Failed back surgical syndrome DDD (degenerative disc disease), lumbar Chronic back pain History of TIA (transient ischemic attack) Radiation cystitis Carotid artery disease Hx of cataract Closed fracture of right patella COVID-19 2020 Metatarsus adductus Osteoarthritis, generalized Seronegative rheumatoid arthritis Positive CORBY (antinuclear antibody) EDUARDO was negative in 2013 Gastroparesis GERD (gastroesophageal reflux disease) Cervical postlaminectomy syndrome FUAD (obstructive sleep apnea) Hyperlipidemia COPD (chronic obstructive pulmonary disease) H/O malignant neoplasm of skin Surgical History Status post revision of total replacement of right knee History of total bilateral knee replacement (TKR) Hx of excision of epidermal inclusion cyst Hx of excision of mass 04/12/23 Dr Fitzgerald- Elliptical excision of skin and subcutaneous back mass S/P laminectomy with spinal fusion S/P spinal fusion 02/2021 - T9-S1 Dr Delarosa History of penile implant Status post spinal arthrodesis S/P lumbar fusion History of cardiac cath ~2012 nonobstructive 10/2022 stress test EF 43 %, small areas prior infarcts RCA and LAD territories History of hip surgery RIGHT 04/11/19 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 History of total right hip arthroplasty History of total left hip arthroplasty History of abdominal aortic aneurysm (AAA) repair History of tonsillectomy and adenoidectomy Hx of appendectomy History of back surgery multiple procedures (>10) H/O neck surgery x 2 Hx of cholecystectomy H/O colonoscopy 2011 H/O esophagogastroduodenoscopy 2011 Family History Mother , Age 81 Bleeding disorder Clotting disorder CAD (coronary artery disease) 60s Cancer Stroke Father , Age 94 CAD (coronary artery disease) 80 Dementia Daughter Chronic kidney disease (CKD) Brother CAD (coronary artery disease) [place] Cancer Denies family history of Diabetes Suicide Anesthesia complication Lung disease Social History Smoking and tobacco/nicotine status: never used tobacco/nicotine Alcohol intake: never Substance/Drug Use: never Household members: spouse Marital status: Current occupational status: retired Special danny needs: No Agree to transfusion: Yes Physical Exam Const: COMMON NORMALS: no acute distress GENERAL APPEARANCE: cooperative and comfortable ORIENTATION/CONSCIOUSNESS: Yes awake, Yes oriented to person, Yes oriented to place and Yes oriented to time HENMT: COMMON NORMALS: normocephalic, atraumatic and hearing grossly normal bilaterally HEAD & SCALP: normocephalic and atraumatic Resp: COMMON NORMALS: normal respiratory effort, No retractions, No use of accessory muscles and clear to auscultation bilaterally AUSCULTATION: clear to auscultation bilaterally Cardio: COMMON NORMALS: regular rate, regular rhythm and No murmurs present (Cardio) RATE: regular rate RHYTHM: regular rhythm GI: COMMON NORMALS: Soft to palpation and No hepatosplenomegaly present AUSCULTATION: Yes normoactive bowel sounds PALPATION: Yes Soft to palpation, No Tenderness to palpation present (GI), No Guarding due to palpation present (GI) and Yes No hepatosplenomegaly present Extremity: COMMON NORMALS: normal to inspection, capillary refill normal, no clubbing, cyanosis or edema, no calf tenderness and no pedal edema Neuro: SENSORIUM/ORIENTATION: Yes oriented to person, Yes oriented to place and Yes oriented to time Skin: COMMON NORMALS: no rashes or lesions noted GENERAL SKIN EXAM: no rashes or lesions noted Course Vital Signs: Vital signs: Vital Signs Temperature 98.7 F 10/11/24 11:47 Pulse Rate 72 10/11/24 15:13 Respiratory Rate 18 10/11/24 11:47 Blood Pressure 165/65 10/11/24 15:13 Pulse Oximetry 97 10/11/24 15:13 Oxygen Delivery Me thod Room Air 10/11/24 11:47 MDM - Weakness Medical Decision Making Patient is he feels much better after IV fluids. His weakness has improved. Will discharge him home have him follow-up with oncology. Medical Records I reviewed the patient's medical records. Lab Data I reviewed the patient's lab results. 10/11/24 12:19 10/11/24 12:19 Radiology Impressions Chest X-Ray 10/11/24 11:56 IMPRESSION: No acute findings. Laboratory Results WBC 9.36 10^3/uL (3.29-11.43) 10/11/24 12:19 RBC 3.88 10^6/uL (3.85-5.65) 10/11/24 12:19 Hgb 11.90 g/dL (11.27-16.99) 10/11/24 12:19 Hct 37.8 % (37-53) 10/11/24 12:19 MCV 97.4 fl (82-101) 10/11/24 12:19 MCH 30.7 pg (27-33) 10/11/24 12:19 MCHC 31.5 g/dL (30-55) 10/11/24 12:19 RDW 15.9 % (12.1-15.1) H 10/11/24 12:19 Plt Count 172 10^3/cmm (157-399) 10/11/24 12:19 MPV 9.3 fL (7.4-10.4) 10/11/24 12:19 Neut % (Auto) 88.2 % 10/11/24 12:19 Lymph % (Auto) 4.9 % 10/11/24 12:19 Terrell % (Auto) 6.1 % 10/11/24 12:19 Eos % (Auto) 0.0 % 10/11/24 12:19 Baso % (Auto) 0.3 % 10/11/24 12:19 Neut # (Auto) 8.25 10^3/uL (1.8-7.7) H 10/11/24 12:19 Lymph # (Auto) 0.5 10^3/uL (0.8-4.8) L 10/11/24 12:19 Terrell # (Auto) 0.6 10^3/uL (0.2-0.9) 10/11/24 12:19 Eos # (Auto) 0.0 10^3/uL (0.0-0.8) 10/11/24 12:19 Baso # (Auto) 0.0 10^3/uL (0.0-0.1) 10/11/24 12:19 Nucleated RBC % (auto) 0 % 10/11/24 12:19 Nucleated RBCs # 0.0 /100WBC 10/11/24 12:19 Sodium 140 mmol/L (136-145) 10/11/24 12:19 Potassium 3.7 mmol/L (3.5-5.1) 10/11/24 12:19 Chloride 100 mmol/L (98-107) 10/11/24 12:19 Carbon Dioxide 28 mmol/L (22-29) 10/11/24 12:19 Anion Gap 15.7 (5-19) 10/11/24 12:19 BUN 16 mg/dL (8-23) 10/11/24 12:19 Creatinine 1.0 mg/dL (0.7-1.2) 10/11/24 12:19 GFR Calculation Not Reportable 10/11/24 12:19 Glucose 139 mg/dL (65-115) H 10/11/24 12:19 Calculated Osmolality 293 mOsm/kg (285-295) 10/11/24 12:19 Calcium 8.8 mg/dL (8.5-10.5) 10/11/24 12:19 Total Bilirubin 0.5 mg/dL (0.15-1.2) 10/11/24 12:19 AST 12 U/L (0-40) 10/11/24 12:19 ALT 12 U/L (0-41) 10/11/24 12:19 Alkaline Phosphatase 65 U/L (40-130) 10/11/24 12:19 Creatine Kinase 48 U/L (39-308) 10/11/24 12:19 Total Protein 6.4 g/dL (6.6-8.7) L 10/11/24 12:19 Albumin 3.7 g/dL (3.5-5.2) 10/11/24 12:19 Globulin 2.7 g/dL (1.3-4.6) 10/11/24 12:19 Urine Color Yellow (Yellow) 10/11/24 13:06 Urine Appearance Clear (CLEAR) 10/11/24 13:06 Urine pH 7.5 (5-7) 10/11/24 13:06 Ur Specific [place] 1.010 (1.005-1.030) 10/11/24 13:06 Urine Protein Negative (Negative) 10/11/24 13:06 Urine Glucose (UA) Negative (Normal) 10/11/24 13:06 Urine Ketones Negative (Negative) 10/11/24 13:06 Urine Blood Negative (Negative) 10/11/24 13:06 Urine Nitrate Negative (Negative) 10/11/24 13:06 Urine Bilirubin Negative (Negative) 10/11/24 13:06 Urine Urobilinogen 1.0 mg/dL (Negative) 10/11/24 13:06 Ur Leukocyte Esterase Negative (Negative) 10/11/24 13:06 Urine RBC 0-2 /hpf (0-2) 10/11/24 13:06 Urine WBC 0-5 /hpf (0-5) 10/11/24 13:06 Ur Squamous Epith Cells 0-5 /hpf (0-5) 10/11/24 13:06 Amorphous Sediment Not Reportable 10/11/24 13:06 Urine Bacteria None seen /hpf (NONE) 10/11/24 13:06 Hyaline Casts 0.40 /lpf 10/11/24 13:06 All radiology interpretation(s) finalized by discharge Discharge Plan Discharge Patient Disposition: Home Clinical Impression: Weakness, Squamous cell carcinoma Condition: Stable Prescriptions: No Action (DME) MARK BRACE See Rx Instructions .Route .MEDSUPPLY Qty: 1 0RF Rx Instructions: As directed bumetanide 2 mg tablet 2 mg PO BID PRN (Reason: Edema) (DME) Modification to AFO Brace to the left See Rx Instructions .Route .MEDSUPPLY Qty: 1 0RF Rx Instructions: As directed by Alpha and [facility] oxybutynin chloride 5 mg tablet extended release 24hr 5 mg PO DAILY carvedilol 12.5 mg tablet 12.5 mg PO DAILY mupirocin 2 % ointment 1 applic topical DIRECTED omeprazole 40 mg capsule,delayed release(DR/EC) 40 mg PO QAM Qty: 90 1RF prednisone 10 mg tablet 10 mg PO DAILY Qty: 90 1RF potassium chloride 10 mEq tablet extended release 20 meq PO BID PRN (Reason: while on Bumetanide) prochlorperazine maleate [Compazine] 10 mg tablet 10 mg PO Q6H PRN (Reason: nausea and vomiting) Qty: 30 6RF ondansetron HCl 4 mg tablet 8 mg PO Q8H PRN (Reason: nausea and vomiting) Qty: 90 3RF atorvastatin 40 mg tablet 40 mg PO BEDTIME Qty: 90 3RF isosorbide mononitrate 30 mg tablet extended release 24 hr 60 mg PO BEDTIME Qty: 180 2RF tramadol 50 mg tablet 50 mg PO BID PRN (Reason: pain) Qty: 30 0RF Rx Instructions: no more than 3 tabs daily hydromorphone [Dilaudid] 2 mg tablet 1 mg PO Q8H PRN (Reason: pain) 30 Days Qty: 25 0RF acetaminophen 500 mg capsule 1,000 mg PO TID PRN (Reason: Pain) Eliquis 5 mg Tablet 5 mg PO BID@0900,2100 Qty: 60 2RF levothyroxine [Synthroid] 150 mcg tablet 150 mcg PO DAILY pregabalin 25 mg capsule 25 mg PO BID silver sulfadiazine [Silvadene] 1 % cream 1 applic topical BID PRN (Reason: Skin Irritation) Rx Instructions: apply a 1.5 mm thickness lidocaine-prilocaine 2.5-2.5 % cream 1 applic topical PRN PRN (Reason: port access) Rx Instructions: Apply a quarter size amount to port and cover with saran wrap 30 minutes prior to access. lorazepam 0.5 mg tablet 0.25 - 0.5 mg PO TID MDD 6 mg PRN (Reason: nausea and vomiting) Rx Instructions: may titrate to 2 mg dosing if needed for relief. nitroglycerin [Nitrostat] 0.4 mg Tablet, Sublingual 0.4 mg SUBLINGUAL Q5M PRN (Reason: Chest Pain) Rx Instructions: do not exceed 3 doses per episode amiodarone [Pacerone] 200 mg Tablet 200 mg PO DAILY Qty: 30 0RF liothyronine 5 mcg tablet 5 mcg PO BID sennosides-docusate sodium [Stool Softener-Laxative] 8.6-50 mg Tablet 1 tab PO DAILY Qty: 30 0RF hydralazine 50 mg tablet 50 mg PO TID Discharge Orders: Discharge ED (Routine); Ordered 10/11/24 Ordered By: Checo Chairez Referrals: Marsha Turner MD [Primary Care Provider, Internal Medicine] Discharge Diet: Usual diet Discharge Activity: Increase activity as tolerated Patient Instructions: Opioid Safety, Pain Management, Patient Portal & Bryant Instructions Activity Restrictions/Additional Instructions: Thank you for choosing [facility] for your healthcare needs today. It is very important that you follow up as instructed or that you return to the Emergency Department should you have concerns or if your condition changes or worsens in any way. Follow-up with your primary care doctor as needed Print Language: Slovenian Coding Level of Care Code ED Sheet [employer] for Lauren Zimmerman
[2024-10-11 12:25] LABS: Hematocrit 37.8 % (37-53); Hemoglobin 11.90 g/dL (11.27-16.99); Mean Corpuscular HGB Conc 31.5 g/dL (30-55); Mean Corpuscular Hemoglobin 30.7 pg (27-33); Mean Corpuscular Volume 97.4 fl (82-101); Nucleated Red Blood Cells % 0 %; Platelet Count 172 10^3/cmm (157-399); Red Blood Count 3.88 10^6/uL (3.85-5.65); White Blood Count 9.36 10^3/uL (3.29-11.43)
[2024-10-11 12:49] LABS: Alanine Aminotransferase 12 U/L (0-41); Albumin Level 3.7 g/dL (3.5-5.2); Alkaline Phosphatase 65 U/L (40-130); Anion Gap 15.7 (5-19); Aspartate Amino Transferase 12 U/L (0-40); Blood Urea Nitrogen 16 mg/dL (8-23); Calcium 8.8 mg/dL (8.5-10.5); Carbon Dioxide 28 mmol/L (22-29); Chloride 100 mmol/L (98-107); Creatinine Clr Calc Pharmacy 72.9387; Globulin 2.7 g/dL (1.3-4.6); Glucose 139 mg/dL (65-115); Osmolality Calculated 293 mOsm/kg (285-295); Potassium 3.7 mmol/L (3.5-5.1); Sodium 140 mmol/L (136-145); Total Protein 6.4 g/dL (6.6-8.7)
[2024-10-11 13:31] LABS: Glucose Urine UA Negative (Normal); Nitrate Urine Negative (Negative); Specific Gravity, Urine 1.010 (1.005-1.030)
[2024-10-11 13:36] LABS: Add Urine Microscopic? YES
[2024-10-11 15:13] VITALS: BP 165/65; PULSE 72; O2SAT 97
== END 2024-10-11 15:14 | disposition home or self-care (01) ==
PROVIDERS: Emergency Provider Family Medicine; PCP Internal Medicine
DX: R53.1 Weakness (principal); C44.42 Squamous cell carcinoma of skin of scalp and neck; I25.10 Atherosclerotic heart disease of native coronary artery without angina pectoris; E78.5 Hyperlipidemia, unspecified; J44.9 Chronic obstructive pulmonary disease, unspecified; I11.0 Hypertensive heart disease with heart failure; I50.9 Heart failure, unspecified; Z79.01 Long term (current) use of anticoagulants
CPT/HCPCS: 71045; 80053; 81001; 82550; 85025; 96360; 99284; J7030

== ENCOUNTER 2024-10-11 23:59 | Emergency (ER) | payer MEDICARE, OTHER, SELFPAY ==
[2024-10-12 00:02] VITALS: BP 153/85; PULSE 66; RESP 16; TEMP 37.1; O2SAT 96; BMI 34.4
[2024-10-12 00:08] VITALS: BP 153/85; PULSE 66; O2SAT 95
--- NOTE | 2024-10-12 00:10 | XRR_ITS ---
PROCEDURE INFORMATION: Exam: XR Right Hip Exam date and time: 10/12/2024 12:30 AM Age: 78 years old Clinical indication: Injury or trauma; Fall; Blunt trauma (contusions or hematomas); Prior surgery; Surgery date: 6+ months; Surgery type: Right hip replacement; Additional info: Hip pain TECHNIQUE: Imaging protocol: Radiologic exam of the right hip. Views: 1 view hip with pelvis when performed. COMPARISON: CT chest abdpel w/*[id number] 08/14/2024 9:12 AM FINDINGS: Tubes, catheters and devices: Partially visualized pelvic hardware. Bones/joints: Right hip prosthesis. No acute fracture. Calcified atherosclerosis. Soft tissues: Unremarkable. Organs: Penile prosthesis. XR/XR hip RT 2-3V wo/w pel* [id number] IMPRESSION: See above.
--- NOTE | 2024-10-12 00:10 | XRR_ITS ---
PROCEDURE INFORMATION: Exam: XR Right Knee Exam date and time: 10/12/2024 12:28 AM Age: 78 years old Clinical indication: Injury or trauma; Fall; Blunt trauma; Knee; Right; Prior surgery; Surgery date: 6+ months; Surgery type: Tka; Additional info: Fall, pain TECHNIQUE: Imaging protocol: Radiologic exam of the right knee. Views: 3 views. COMPARISON: CR XR knees AP WB w RT lmt ORTH 01/17/2024 8:22 AM FINDINGS: Bones/joints: Small joint effusion. Right knee prosthesis. No fracture. Calcified atherosclerosis. Soft tissues: Unremarkable. XR/XR knee RT 3V* [id number] IMPRESSION: See above.
--- NOTE | 2024-10-12 00:10 | CTR_ITS ---
PROCEDURE INFORMATION: Exam: CT Head Without Contrast Exam date and time: 10/12/2024 12:27 AM Age: 78 years old Clinical indication: Injury or trauma; Fall; Concussion/head injury; Additional info: Fall, head injury TECHNIQUE: Imaging protocol: Computed tomography of the head without contrast. Radiation optimization: All CT scans at this facility use at least one of these dose optimization techniques: automated exposure control; mA and/or kV adjustment per patient size (includes targeted exams where dose is matched to clinical indication); or iterative reconstruction. COMPARISON: CT head wo/w con [id number] 08/14/2024 9:23 AM RADIATION DOSE METRICS: Total DLP (mGy-cm): 1094.89 FINDINGS: Brain: Evidence of chronic small vessel ischemia. No hemorrhage. No mass effect or herniation. Diffuse brain volume loss. Cerebral ventricles: Nondilated ventricles. Paranasal sinuses: Visualized sinuses are well aerated. Mastoid air cells: Fluid in the left mastoid air cells. Auditory system: Opacification of the left middle ear. Bones: No acute fracture. Soft tissues: Right scalp soft tissue lesion 1.5 cm, similar to prior, with previously seen adjacent lesions resolved in the interval. CT/CT head wo con* [id number] IMPRESSION: 1. Senescent change. No acute intracranial abnormality. 2. Enhancing right scalp lesion, unchanged, with previously seen adjacent lesions resolved in the interval. 3. Opacification of the left mastoid air cells and middle ear, similar to prior exam.
--- NOTE | 2024-10-12 00:18 | W.ED.FALL ---
HPI - Fall General: Chief Complaint: Fall Stated Complaint: fall Time Seen by Provider: 10/12/24 00:07 History of Present Illness: 78-year-old man with a history of hypothyroidism, atrial fibrillation with chronic anticoagulation on Eliquis, peripheral arterial disease, coronary artery disease, chronic pain syndrome, venous insufficiency, TIA, carotid artery disease, obesity, hyperlipidemia, COPD and is currently being treated for squamous cell carcinoma of the scalp with every 3-week immunotherapy who presents to the emergency room by ambulance after having had a fall. He is complaining of allover pain but most focally his right hip and right knee. He says he did not think he broke anything. He did hit his head. He says he is not sure what caused him to fall. He says he was going into the kitchen and next he knew he was on the ground. He was seen earlier today and worked up for weakness and given 2 L of fluid. He says he has to do this often times whenever he is getting treatment for his cancer. Related Data Home Medications ?Medication ?Instructions ?Recorded ?Confirmed nitroglycerin 0.4 mg sublingual 0.4 mg sublingual Q5M PRN Chest 12/22/22 10/11/24 tablet (Nitrostat) Pain liothyronine 5 mcg tablet 5 mcg PO BID 04/01/23 10/11/24 oxybutynin chloride 5 mg 5 mg PO DAILY 10/22/23 10/11/24 tablet,extended release 24 hr bumetanide 2 mg tablet 2 mg PO BID PRN Edema 11/30/23 10/11/24 carvedilol 12.5 mg tablet 12.5 mg PO DAILY 05/05/24 10/11/24 mupirocin 2 % topical ointment 1 applic topical DIRECTED 05/05/24 10/11/24 acetaminophen 500 mg capsule 1,000 mg PO TID PRN Pain 08/17/24 10/11/24 hydralazine 50 mg tablet 50 mg PO TID 08/17/24 10/11/24 potassium chloride 10 mEq 20 meq PO BID PRN while on 08/17/24 10/11/24 tablet,extended release Bumetanide levothyroxine 150 mcg tablet 150 mcg PO DAILY 10/11/24 10/11/24 (Synthroid) lidocaine-prilocaine 2.5 %-2.5 % 1 applic topical PRN PRN port 10/11/24 10/11/24 topical cream access lorazepam 0.5 mg tablet 0.25 - 0.5 mg PO TID PRN nausea 10/11/24 10/11/24 and vomiting pregabalin 25 mg capsule 25 mg PO BID 10/11/24 10/11/24 silver sulfadiazine 1 % topical 1 applic topical BID PRN Skin 10/11/24 10/11/24 cream (Silvadene) Irritation Previous Rx's ?Medication ?Instructions ?Recorded MARK BRACE #1 ea 08/01/20 Modification to AFO Brace to the #1 ea 02/02/22 left apixaban 5 mg tablet (Eliquis) 5 mg PO BID@0900,2100 #60 tabs 11/12/22 Held on 08/16/24. Instructions: Resume on 08/17/24. amiodarone 200 mg tablet (Pacerone) 200 mg PO DAILY #30 tabs 02/19/23 sennosides 8.6 mg-docusate sodium 1 tab PO DAILY #30 tabs 04/06/23 50 mg tablet (Stool Softener-Laxative) atorvastatin 40 mg tablet 40 mg PO BEDTIME #90 tabs 08/10/23 isosorbide mononitrate 30 mg 60 mg (2 x 30 mg) PO BEDTIME #180 01/28/24 tablet,extended release 24 hr tabs omeprazole 40 mg capsule,delayed 40 mg PO QAM #90 caps 06/22/24 release prednisone 10 mg tablet 10 mg PO DAILY #90 tabs 06/22/24 tramadol 50 mg tablet 50 mg PO BID PRN pain #30 tabs 07/13/24 hydromorphone 2 mg tablet 1 mg (1/2 x 2 mg) PO Q8H PRN pain 08/18/24 (Dilaudid) 30 days #25 tabs ondansetron HCl 4 mg tablet 8 mg (2 x 4 mg) PO Q8H PRN nausea 09/28/24 and vomiting #90 tabs prochlorperazine maleate 10 mg 10 mg PO Q6H PRN nausea and 09/28/24 tablet (Compazine) vomiting #30 tabs Allergies Allergy/AdvReac Type Severity Reaction Status Date / Time adhesive tape Allergy tears skin Verified 10/12/24 00:02 off metoclopramide (From Reglan) Allergy Unknown Verified 10/12/24 00:02 morphine Allergy ALGY-Hives Verified 10/12/24 00:02 tamsulosin (From Flomax) Allergy ADR/ALGY-Hy Verified 10/12/24 00:02 potension zolpidem (From Ambien) Allergy Unknown Verified 10/12/24 00:02 hydrocodone AdvReac Mild Hypotension Verified 10/12/24 00:02 oxycodone AdvReac Mild Hypotension Verified 10/12/24 00:02 Review of Systems Narrative: Constitutional symptoms: Negative except as documented in HPI. Skin symptoms: Negative except as documented in HPI. Eye symptoms: Negative except as documented in HPI. ENMT symptoms: Negative except as documented in HPI. Respiratory symptoms: Negative except as documented in HPI. Cardiovascular symptoms: Negative except as documented in HPI. Gastrointestinal symptoms: Negative except as documented in HPI. Genitourinary symptoms: Negative except as documented in HPI. Musculoskeletal symptoms: Negative except as documented in HPI. Neurologic symptoms: Negative except as documented in HPI. Psychiatric symptoms: Negative except as documented in HPI. Endocrine symptoms: Negative except as documented in HPI. PFSH ED PFSH: Medical History (Updated 10/12/24 @ 02:21 by Marbella Berger MD) Hypothyroid ADAMS (dyspnea on exertion) Atrial fibrillation Ascending aortic aneurysm Patient had a CT of the chest on 07/14/2023. The ascending aorta was found to be 4.0 cm in diameter. Essentially unchanged CHF (congestive heart failure), NYHA class III EF 10/2022 43% on stress test, 50% on echo HTN (hypertension) Other iron deficiency anemias Anemia High risk medication use prednisone and leflunomide 12/2022 Peripheral arterial disease Chronic anticoagulation eliquis Unstable angina CAD (coronary artery disease) Seroma, postoperative Spinal stenosis, thoracic Degenerative disc disease, thoracic History of prostate cancer Urgency incontinence Renal cyst Acquired calcaneovarus deformity of both feet Lumbar stenosis with neurogenic claudication Orthostatic hypotension Venous insufficiency of both lower extremities Acute blood loss as cause of postoperative anemia Failed back surgical syndrome DDD (degenerative disc disease), lumbar Chronic back pain History of TIA (transient ischemic attack) Radiation cystitis Carotid artery disease Hx of cataract Closed fracture of right patella COVID-19 2020 Metatarsus adductus Osteoarthritis, generalized Seronegative rheumatoid arthritis Positive CORBY (antinuclear antibody) EDUARDO was negative in 2013 Gastroparesis GERD (gastroesophageal reflux disease) Cervical postlaminectomy syndrome FUAD (obstructive sleep apnea) Hyperlipidemia COPD (chronic obstructive pulmonary disease) H/O malignant neoplasm of skin Surgical History Status post revision of total replacement of right knee History of total bilateral knee replacement (TKR) Hx of excision of epidermal inclusion cyst Hx of excision of mass 04/12/23 Dr Ftizgerald- Elliptical excision of skin and subcutaneous back mass S/P laminectomy with spinal fusion S/P spinal fusion 02/2021 - T9-S1 Dr Delarosa History of penile implant Status post spinal arthrodesis S/P lumbar fusion History of cardiac cath ~2012 nonobstructive 10/2022 stress test EF 43 %, small areas prior infarcts RCA and LAD territories History of hip surgery RIGHT 04/11/19 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 History of total right hip arthroplasty History of total left hip arthroplasty History of abdominal aortic aneurysm (AAA) repair History of tonsillectomy and adenoidectomy Hx of appendectomy History of back surgery multiple procedures (>10) H/O neck surgery x 2 Hx of cholecystectomy H/O colonoscopy 2012 H/O esophagogastroduodenoscopy 2011 Family History Mother , Age 81 Bleeding disorder Clotting disorder CAD (coronary artery disease) 60s Cancer Stroke Father , Age 94 CAD (coronary artery disease) 80 Dementia Daughter Chronic kidney disease (CKD) Brother CAD (coronary artery disease) [place] Cancer Denies family history of Diabetes Suicide Anesthesia complication Lung disease Social History Smoking and tobacco/nicotine status: never used tobacco/nicotine Alcohol intake: never Substance/Drug Use: never Household members: spouse Marital status: Current occupational status: retired Special danny needs: No Agree to transfusion: Yes Physical Exam Narrative: EXAM NARRATIVE: General: Alert, no acute distress. Skin: Warm, dry. Head: Normocephalic, atraumatic. Neck: Supple, trachea midline. Eye: Extraocular movements are intact. Ears, nose, mouth and throat: mucosa moist. Cardiovascular: Regular, Normal peripheral perfusion. Respiratory: Lungs are clear to auscultation, respirations are non-labored, breath sounds are equal, Symmetrical chest wall expansion. Gastrointestinal: Soft, Nontender, Non distended Musculoskeletal: No obvious deformity but he is complaining of right hip pain and right knee pain. Neurological: Alert and oriented, No focal neurological deficit observed. Psychiatric: Cooperative, appropriate mood & affect. Course Vital Signs: Vital signs: Vital Signs Temperature 98.7 F 10/12/24 00:02 Pulse Rate 66 10/12/24 01:55 Respiratory Rate 16 10/12/24 00:02 Blood Pressure 151/74 10/12/24 01:55 Pulse Oximetry 94 10/12/24 01:55 Oxygen Delivery Me thod Room Air 10/12/24 01:55 MDM - Fall Medical Decision Making Medical decision making: Differential diagnosis including but not limited to and based on the above HPI, review of systems and physical exam: patient with fall and head injury. Subdural hematoma, subarachnoid hemorrhage, concussion, skull fracture. Orders placed to evaluate differential diagnosis based on the above differential, HPI and physical exam CT scan of the head was ordered. Differential diagnosis including but not limited to and based on the above HPI, review of systems and physical exam: In this patient with a musculoskeletal extremity traumatic injury and x-ray is being ordered to rule out fractures and dislocations. Orders placed to evaluate differential diagnosis based on the above differential, HPI and physical exam CT head: Scalp lesions are still present and somewhat improved. Senescent changes. No acute intracranial process. no intracranial hemorrhage, no evidence of infarct. no evidence of acute fracture.This was reviewed and interpreted by myself the ER physician. X-ray of the right hip and pelvis: No acute fractures or dislocations. This was reviewed and interpreted by myself the emergency room physician. I also reviewed the radiology report. X-ray of the right knee: Small joint effusion. Prosthesis in place. No fractures. This was reviewed and interpreted by myself the emergency room physician. I also reviewed the radiology report. Lab review: Lab was reviewed and interpreted by myself emergency room physician. No leukocytosis. No anemia. No renal failure. Serial cardiac markers are negative. I reviewed the patient's medical record. Reexamination: Patient remained stable. No increased work of breathing. No altered mental status. No focal motor deficits. Assessment and plan: Fall Head injury Chronic anticoagulation - Discharged home - Discussed plan with patient. Answered any questions. - Evaluation and treatment of this problem were appropriate in the emergency setting. Lab Data 10/12/24 00:57 10/12/24 00:[address] 10/12/24 00:10 IMPRESSION: 1. Senescent change. No acute intracranial abnormality. 2. Enhancing right scalp lesion, unchanged, with previously seen adjacent lesions resolved in the interval. 3. Opacification of the left mastoid air cells and middle ear, similar to prior exam. Hip/Pelvis X-Ray 10/12/24 00:10 IMPRESSION: See above. Knee X-Ray 10/12/24 00:10 IMPRESSION: See above. Laboratory Results WBC 8.62 10^3/uL (3.29-11.43) 10/12/24 00:57 RBC 3.51 10^6/uL (3.85-5.65) L 10/12/24 00:57 Hgb 10.70 g/dL (11.27-16.99) L 10/12/24 00:57 Hct 34.2 % (37-53) L 10/12/24 00:57 MCV 97.4 fl (82-101) 10/12/24 00:57 MCH 30.5 pg (27-33) 10/12/24 00:57 MCHC 31.3 g/dL (30-55) 10/12/24 00:57 RDW 16.0 % (12.1-15.1) H 10/12/24 00:57 Plt Count 160 10^3/cmm (157-399) 10/12/24 00:57 MPV 9.2 fL (7.4-10.4) 10/12/24 00:57 Neut % (Auto) 78.4 % 10/12/24 00:57 Lymph % (Auto) 9.5 % 10/12/24 00:57 [place] % (Auto) 10.9 % 10/12/24 00:57 Eos % (Auto) 0.3 % 10/12/24 00:57 Baso % (Auto) 0.3 % 10/12/24 00:57 Neut # (Auto) 6.75 10^3/uL (1.8-7.7) 10/12/24 00:57 Lymph # (Auto) 0.8 10^3/uL (0.8-4.8) 10/12/24 00:57 [place] # (Auto) 0.9 10^3/uL (0.2-0.9) 10/12/24 00:57 Eos # (Auto) 0.0 10^3/uL (0.0-0.8) 10/12/24 00:57 Baso # (Auto) 0.0 10^3/uL (0.0-0.1) 10/12/24 00:57 Nucleated RBC % (auto) 0 % 10/12/24 00:57 Nucleated RBCs # 0.0 /100WBC 10/12/24 00:57 PT 14.50 SECONDS (12.1-14.9) 10/12/24 00:57 INR 1.05 (0.8-1.2) 10/12/24 00:57 APTT 30.1 SECONDS (23.9-36.7) 10/12/24 00:57 Sodium 141 mmol/L (136-145) 10/12/24 00:57 Potassium 3.8 mmol/L (3.5-5.1) 10/12/24 00:57 Chloride 104 mmol/L (98-107) 10/12/24 00:57 Carbon Dioxide 24 mmol/L (22-29) 10/12/24 00:57 Anion Gap 16.8 (5-19) 10/12/24 00:57 BUN 14 mg/dL (8-23) 10/12/24 00:57 Creatinine 0.9 mg/dL (0.7-1.2) 10/12/24 00:57 GFR Calculation Not Reportable 10/12/24 00:57 Glucose 97 mg/dL (65-115) 10/12/24 00:57 Calculated Osmolality 292 mOsm/kg (285-295) 10/12/24 00:57 Lactic Acid 1.7 mmol/L (0.5-2.2) 10/12/24 00:57 Calcium 8.2 mg/dL (8.5-10.5) L 10/12/24 00:57 Total Bilirubin 0.3 mg/dL (0.15-1.2) 10/12/24 00:57 AST 12 U/L (0-40) 10/12/24 00:57 ALT 11 U/L (0-41) 10/12/24 00:57 Alkaline Phosphatase 60 U/L (40-130) 10/12/24 00:57 Troponin T Baseline 28 ng/L (0-15) H 10/12/24 00:57 Delta Troponin T 2.54 ABS# (0-10) 10/12/24 01:53 NT-Pro-B Natriuret Pep 160 pg/mL (0-450) 10/12/24 00:57 Total Protein 5.4 g/dL (6.6-8.7) L 10/12/24 00:57 Albumin 5.2 g/dL (3.5-5.2) 10/12/24 00:57 Globulin 0.2 g/dL (1.3-4.6) L 10/12/24 00:57 All radiology interpretation(s) finalized by discharge Discharge Plan Discharge Patient Disposition: Home Clinical Impression: Fall, Head injury Condition: Stable Prescriptions: No Action (DME) MARK BRACE See Rx Instructions .Route .MEDSUPPLY Qty: 1 0RF Rx Instructions: As directed bumetanide 2 mg tablet 2 mg PO BID PRN (Reason: Edema) (DME) Modification to AFO Brace to the left See Rx Instructions .Route .MEDSUPPLY Qty: 1 0RF Rx Instructions: As directed by [facility] oxybutynin chloride 5 mg tablet extended release 24hr 5 mg PO DAILY carvedilol 12.5 mg tablet 12.5 mg PO DAILY mupirocin 2 % ointment 1 applic topical DIRECTED omeprazole 40 mg capsule,delayed release(DR/EC) 40 mg PO QAM Qty: 90 1RF prednisone 10 mg tablet 10 mg PO DAILY Qty: 90 1RF potassium chloride 10 mEq tablet extended release 20 meq PO BID PRN (Reason: while on Bumetanide) prochlorperazine maleate [Compazine] 10 mg tablet 10 mg PO Q6H PRN (Reason: nausea and vomiting) Qty: 30 6RF ondansetron HCl 4 mg tablet 8 mg PO Q8H PRN (Reason: nausea and vomiting) Qty: 90 3RF atorvastatin 40 mg tablet 40 mg PO BEDTIME Qty: 90 3RF isosorbide mononitrate 30 mg tablet extended release 24 hr 60 mg PO BEDTIME Qty: 180 2RF tramadol 50 mg tablet 50 mg PO BID PRN (Reason: pain) Qty: 30 0RF Rx Instructions: no more than 3 tabs daily hydromorphone [Dilaudid] 2 mg tablet 1 mg PO Q8H PRN (Reason: pain) 30 Days Qty: 25 0RF acetaminophen 500 mg capsule 1,000 mg PO TID PRN (Reason: Pain) Eliquis 5 mg Tablet 5 mg PO BID@0900,2100 Qty: 60 2RF levothyroxine [Synthroid] 150 mcg tablet 150 mcg PO DAILY pregabalin 25 mg capsule 25 mg PO BID silver sulfadiazine [Silvadene] 1 % cream 1 applic topical BID PRN (Reason: Skin Irritation) Rx Instructions: apply a 1.5 mm thickness lidocaine-prilocaine 2.5-2.5 % cream 1 applic topical PRN PRN (Reason: port access) Rx Instructions: Apply a quarter size amount to port and cover with saran wrap 30 minutes prior to access. lorazepam 0.5 mg tablet 0.25 - 0.5 mg PO TID MDD 6 mg PRN (Reason: nausea and vomiting) Rx Instructions: may titrate to 2 mg dosing if needed for relief. nitroglycerin [Nitrostat] 0.4 mg Tablet, Sublingual 0.4 mg SUBLINGUAL Q5M PRN (Reason: Chest Pain) Rx Instructions: do not exceed 3 doses per episode amiodarone [Pacerone] 200 mg Tablet 200 mg PO DAILY Qty: 30 0RF liothyronine 5 mcg tablet 5 mcg PO BID sennosides-docusate sodium [Stool Softener-Laxative] 8.6-50 mg Tablet 1 tab PO DAILY Qty: 30 0RF hydralazine 50 mg tablet 50 mg PO TID Discharge Orders: Discharge ED (Routine); Ordered 10/12/24 Ordered By: Marbella Berger Referrals: Marsha Turner MD [Primary Care Provider, Internal Medicine] Discharge Diet: Usual diet Discharge Activity: Increase activity as tolerated Patient Instructions: Fall Prevention (ED), Opioid Safety, Pain Management, Patient Portal & Bryant Instructions Activity Restrictions/Additional Instructions: Thank you for choosing [facility] for your healthcare needs today. You have been screened and evaluated and felt safe for discharge. Health conditions do change or evolve sometimes and as such it is important that you follow up with your Primary Doctor to be re checked, 3-5 days is a general good time frame for follow up. You are always welcome to return to the ED for re assessment if your symptoms are worsening or you have new concerns Print Language: Chadian Coding Level of Care Code ED [employer] Glass Technician for Lauren Zimmerman
[2024-10-12 01:10] LABS: Hematocrit 34.2 % (37-53); Hemoglobin 10.70 g/dL (11.27-16.99); Mean Corpuscular HGB Conc 31.3 g/dL (30-55); Mean Corpuscular Hemoglobin 30.5 pg (27-33); Mean Corpuscular Volume 97.4 fl (82-101); Nucleated Red Blood Cells % 0 %; Platelet Count 160 10^3/cmm (157-399); Red Blood Count 3.51 10^6/uL (3.85-5.65); White Blood Count 8.62 10^3/uL (3.29-11.43)
[2024-10-12 01:21] LABS: INR 1.05 (0.8-1.2); Prothrombin Time 14.50 SECONDS (12.1-14.9)
[2024-10-12 01:22] LABS: Partial Thromboplastin Time 30.1 SECONDS (23.9-36.7)
[2024-10-12 01:26] LABS: Alanine Aminotransferase 11 U/L (0-41); Albumin Level 5.2 g/dL (3.5-5.2); Alkaline Phosphatase 60 U/L (40-130); Chloride 104 mmol/L (98-107); Potassium 3.8 mmol/L (3.5-5.1); Sodium 141 mmol/L (136-145)
[2024-10-12 01:28] LABS: Lactic Sepsis W/Reflex 1.7 mmol/L (0.5-2.2)
[2024-10-12 01:29] LABS: Troponin(5th) Baseline 28 ng/L (0-15)
--- NOTE | 2024-10-12 01:50 | ECG_ITS ---
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 Measurements Intervals [place] Rate: 61 P: 35 CT: 239 QRS: -52 QRSD: 157 T: 24 QT: 500 QTc: 506 Interpretive Statements SINUS RHYTHM WITH FIRST DEGREE AV BLOCK INTRAVENTRICULAR CONDUCTION DELAY [130+ ms QRS DURATION] Compared to ECG 11/17/2023 19:08:07 First degree AV block now present Intraventricular conduction delay now present Sinus bradycardia no longer present Left ventricular hypertrophy no longer present ST (T wave) deviation no longer present Myocardial infarct finding no longer present Electronically Signed On 10-12-2024 10:28:38 CDT by Dario Nuñez M.D. [email or web address]
--- NOTE | 2024-10-12 01:51 | ECG_ITS ---
[facility] Date: 2024-10-12 Pat Name: Kojo Marinelli Department: Room: Gender: Male Bilingual Executive Assistant: : 1945 Requested By: Marbella Wall Order Number: [id number] Tessa MD: Dario Nuñez M.D. Measurements Intervals [place] Rate: 67 P: 50 RI: 238 QRS: -54 QRSD: 162 T: 47 QT: 488 QTc: 519 Interpretive Statements SINUS RHYTHM WITH FIRST DEGREE AV BLOCK INTRAVENTRICULAR CONDUCTION DELAY [130+ ms QRS DURATION] LATERAL MYOCARDIAL INFARCTION , OF INDETERMINATE AGE [40+ ms Q WAVE AND/OR ST/T ABNORMALITY IN I/aVL/V5/V6] Compared to ECG 10/12/2024 01:50:53 Myocardial infarct finding now present Electronically Signed On 10-12-2024 10:20:53 CDT by Dario Nuñez M.D. [email or web address]
[2024-10-12 01:55] VITALS: BP 151/74; PULSE 66; O2SAT 94
[2024-10-12 02:02] LABS: Anion Gap 16.8 (5-19); Aspartate Amino Transferase 12 U/L (0-40); Blood Urea Nitrogen 14 mg/dL (8-23); Calcium 8.2 mg/dL (8.5-10.5); Carbon Dioxide 24 mmol/L (22-29); Creatinine Clr Calc Pharmacy 80.8748; Globulin 0.2 g/dL (1.3-4.6); Glucose 97 mg/dL (65-115); Osmolality Calculated 292 mOsm/kg (285-295); Total Protein 5.4 g/dL (6.6-8.7)
[2024-10-12 02:03] LABS: NT Pro B Type Natriuretic Pept 160 pg/mL (0-450)
[2024-10-12 02:17] LABS: Troponin 5 2HR 30.54 ng/L (0-15); Troponin 5 2HR Delta 2.54 ABS# (0-10)
[2024-10-12 02:38] VITALS: BP 155/72; PULSE 65; O2SAT 94
--- OUTSIDE RECORDS SUMMARY | 2024-10-13 03:14 | XMS_ITS | Clinical Summary ---
Author Organization [facility] Address [address] 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 Gender Identity Not on file Sexual [...] years Discontinued Medical Devices Implanted Type Area Marine Reporter Device Identifier Shelf Expiration Date Model / Serial / Lot Vitoss Foam Ba 1.2ml Implanted:Qty: 1 on 04/18/2013 at [facility] Biological N/A: Spine Cervical Anterior LISA- SPINE 10/13/2014 / NA / [id number] [place] C Stand Alone Cage [id number] Implanted:Qty: 1 on 04/18/2013 by John Castillo MD at [facility] Cage N/A: Spine Cervical Anterior LISA- SPINE [id number] / LD [id number] / NA Cement Palacos R+G [id number] - Sna Implanted:Qty: 2 on 09/29/2012 at [facility] Cement Left: Knee SHIRA [employer] INC 01/13/201680-8480-672-01 / NA / NA Hemostatic Gelfoam Powder 1gm [id number] - [id number] Implanted:Qty: 1 on 05/20/2015 by Dee Casillas MD at [facility] Hemostatic N/A: Spine Thoracic PFIZER- PHARM 10/12/2017 [id number] / / [id number] Hemostatic Gelfoam Powder 1gm [id number] - [id number] Implanted:Qty: 1 on 09/14/2017 by Dee Casillas MD at [facility] Hemostatic N/A: Back PFIZER- PHARM 11/13/2019 [id number] / / [id number] Gel-Flow Nt Implanted:Qty: 1 on 08/12/2018 by Dee Casillas MD at [facility] Hemostatic N/A: Spine Cervical Anterior PFIZER- PHARMACIA AND UPJOHN I 08/04/2019 / / [id number] Bearing Tib Vng 10mm 79/83mm [id number] - [id number] Implanted:Qty: 1 on 09/29/2012 at [facility] Knee Left: Knee BIOMET INC 05/12/2017 201118 / / [id number] Comp Fem Vng Ps Sz72.5 Lt 497744 - [id number] Implanted:Qty: 1 on 09/29/2012 at [facility] Knee Left: Knee BIOMET INC 06/12/2022 908190 / / [id number] Comp Tib Cocr Finned 83mm [id number] - [id number] Implanted:Qty: 1 on 09/29/2012 at [facility] Knee Left: Knee BIOMET INC 03/14/2022 964932 / / [id number] Standard Patella Implanted:Qty: 1 on 09/29/2012 by Dylon Abreu MD at [facility] Knee Left: Knee BIOMET- ORTHOPEDICS, INC 07/12/2017 647562 / / [id number] Plate Hybrid Cerv 12mm 16600581 - Sld [id number] Implanted:Qty: 1 on 04/18/2013 at [facility] Plate N/A: Spine Cervical Anterior LISA- SPINE [id number] / LD [id number] / NA Issac Lgcy Crv Ti 5.1d369jj 8492847 - [id number] Implanted:Qty: 1 on 09/14/2017 by Dee Casillas MD at [facility] Issac N/A: Back MEDTRONIC- SOFAMOR DANEK 09/15/2019 5643537 / / [id number] Issac Lgcy Crv Ti 5.7u995zf 9783304 - [id number] Implanted:Qty: 1 on 09/14/2017 by Dee Casillas MD at [facility] Issac N/A: Back MEDTRONIC- SOFAMOR DANEK 09/15/2019 3665766 / / [id number] Issac Std 3.3h506vs 0785718 - [id number] Implanted:Qty: 2 on 08/12/2018 by Dee Casillas MD at [facility] Issac N/A: Spine Cervical Anterior MEDTRONIC- SOFAMOR DANEK 8262456 / [id number] / Screw Rh Sd Fa 4.0x14mm 32786961 - Sld [id number] Implanted:Qty: 1 on 04/18/2013 at [facility] Screw N/A: Spine Cervical Anterior LISA- SPINE 86273378 / LD [id number] / NA Screw Sd 3.5x10mm 52794430 - Sld [id number] Implanted:Qty: 2 on 04/18/2013 at [facility] Screw N/A: Spine Cervical Anterior LISA- SPINE 77408936 / LD [id number] / NA Screw Rh St Va 4.0x14mm 41300580 - Sld [id number] Implanted:Qty: 2 on 04/18/2013 at [facility] Screw N/A: Spine Cervical Anterior LISA- SPINE 59201625 / LD [id number] / NA Screw Rh St Fa 4.0x14mm 30837168 - Sld [id number] Implanted:Qty: 1 on 04/18/2013 at [facility] Screw N/A: Spine Cervical Anterior LISA- SPINE 42887907 / LD [id number] / NA Screw Legacy Ma 6.5x50mm 00792784 - [id number] Implanted:Qty: 1 on 09/14/2017 by Dee Casillas MD at [facility] Screw N/A: Back MEDTRONIC- SOFAMOR DANEK 44182951 / / [id number] Screw Legacy Ma 6.5x50mm 87590909 - [id number] Implanted:Qty: 1 on 09/14/2017 by Dee Casillas MD at [facility] Screw N/A: Back MEDTRONIC- SOFAMOR DANEK 63796173 / / [id number] Set Screw Break Off Ti 3930365 - [id number] Implanted:Qty: 1 on 09/14/2017 by Dee Casillas MD at [facility] Screw N/A: Back MEDTRONIC- SOFAMOR DANEK 6870170 / / [id number] Set Screw Break Off Ti 1012499 - [id number] Implanted:Qty: 1 on 09/14/2017 by Dee Casillas MD at [facility] Screw N/A: Back MEDTRONIC- SOFAMOR DANEK 4502795 / / [id number] Set Screw Break Off Ti 5387629 - [id number] Implanted:Qty: 1 on 09/14/2017 by Dee Casillas MD at [facility] Screw N/A: Back MEDTRONIC- SOFAMOR DANEK 4575202 / / [id number] Set Screw Break Off Ti 5703444 - [id number] Implanted:Qty: 1 on 09/14/2017 by Dee Casillas MD at [facility] Screw N/A: Back MEDTRONIC- SOFAMOR DANEK 5829352 / / [id number] Set Screw Break Off Ti 8392835 - [id number] Implanted:Qty: 1 on 09/14/2017 by Dee Casillas MD at [facility] Screw N/A: Back MEDTRONIC- SOFAMOR DANEK 7659895 / / [id number] Screw Legacy Ma 7.5x50mm 15780114 - [id number] Implanted:Qty: 1 on 09/14/2017 by Dee Casillas MD at [facility] Screw N/A: Back MEDTRONIC- SOFAMOR DANEK 51462848 / / [id number] Screw Legacy Ma 7.5x50mm 01454839 - [id number] Implanted:Qty: 1 on 09/14/2017 by Dee Casillas MD at [facility] Screw N/A: Back MEDTRONIC- SOFAMOR DANEK 94626960 / / [id number] Set Screw Break Off Ti 6314410 - [id number] Implanted:Qty: 1 on 09/14/2017 by Dee Casillas MD at [facility] Screw N/A: Back MEDTRONIC- SOFAMOR DANEK 5789187 / / [id number] Set Screw Break Off Ti 8266678 - [id number] Implanted:Qty: 1 on 09/14/2017 by Dee Casillas MD at [facility] Screw N/A: Back MEDTRONIC- SOFAMOR DANEK 2234308 / / [id number] Set Screw Break Off Ti 3646500 - [id number] Implanted:Qty: 1 on 09/14/2017 by Dee Casillas MD at [facility] Screw N/A: Back MEDTRONIC- SOFAMOR DANEK 2549926 / / [id number] Infinity Screw Implanted:Qty: 7 on 08/12/2018 by Dee Casillas MD at [facility] Screw N/A: Spine Cervical Anterior MEDTRONIC- NEUROSURGERY 5646052 / [id number] / Description:PER INVOICE Infinity Screw Implanted:Qty: 2 on 08/12/2018 by Dee Casillas MD at [facility] Screw N/A: Spine Cervical Anterior MEDTRONIC- NEUROSURGERY 7168914 / [id number] / Description:PER INVOICE Infinity Screw Implanted:Qty: 2 on 08/12/2018 by Dee Casillas MD at [facility] Screw N/A: Spine Cervical Anterior MEDTRONIC- NEUROSURGERY 3310647 / [id number] / Description:PER INVOICE Infinity Set Screws Implanted:Qty: 11 on 08/12/2018 by Dee Casillas MD at [facility] Screw N/A: Spine Cervical Anterior 7007945 / [id number] / Description:PER INVOICE Spacer As 3b12v30b9a 43206132 - Sld [id number] Implanted:Qty: 1 on 04/18/2013 at [facility] Spacer N/A: Spine Cervical Anterior LISA- SPINE 59161065 / LD [id number] / NA Crosslink Lp Mltspn L=1.75-2.15 811-322 - [id number] Implanted:Qty: 1 on 09/14/2017 by Dee Casillas MD at [facility] Spine N/A: Back MEDTRONIC- SOFAMOR DANEK 09/15/2019 811-322 / / [id number] Description:09/17 inv pricing Readigraft Canc Chips 30ml Can30 14bp - [id number] Implanted:Qty: 1 on 09/14/2017 by Dee Casillas MD at [facility] Tissue N/A: Back LIFENET 08/20/2019 CAN30 14BP / / [id number] Putty Bio Dbm 10ml 0230173 - [id number] Implanted:Qty: 1 on 09/14/2017 by Dee Casillas MD at [facility] Tissue N/A: Back LISA- HOWMEDICA INT INC 05/27/2019 6788118 / / [id number] Putty Bio Dbm 10ml 2873384 - [id number] Implanted:Qty: 1 on 09/14/2017 by Dee Casillas MD at [facility] Tissue N/A: Back LISA- HOWMEDICA INT INC 05/16/2019 0826306 / / [id number] Putty Bio Dbm 10ml 8127192 - [id number] Implanted:Qty: 1 on 08/12/2018 by Dee Casillas MD at [facility] Tissue N/A: Spine Cervical Anterior LISA- HOWMEDICA INT INC 04/13/2020 5383424 / / [id number] Putty Bio Dbm 10ml 8752686 - [id number] Implanted:Qty: 1 on 08/12/2018 by Dee Casillas MD at [facility] Tissue N/A: Spine Cervical Anterior LISA- HOWMEDICA INT INC 04/13/2020 2900329 / / [id number] Explanted Type Area Marine Reporter Device Identifier Shelf Expiration Date Model / Serial / Lot Stim Spnl Cord Precision Spectra [id number] - [id number] Implanted:Qty: 1 on 05/20/2015 by Dee Casillas MD at [facility] Explanted:Qty: 1 on 06/15/2016 by Dee Casillas MD at [facility] Neuro Right: Spine Thoracic [employer]- NEURO MODULATION 05/02/2017 [place]-1132 / / [id number] Infinity Set Screws Explanted:Qty: 2 on 08/12/2018 at [facility] Screw N/A: Spine Cervical Anterior MEDTRONIC- NEUROSURGERY 1111976 / [id number] / Description:PER INVOICE Cover Edge 32 70cm 4x8 Ict Development Manager Kit [id number] Implanted:Qty: 1 on 05/20/2015 by Dee Casillas MD at [facility] Explanted:Qty: 1 on 06/15/2016 by Dee Casillas MD at [facility] N/A: Spine Thoracic [employer] INC 02/11/2017 / [id number] / [id number] Set Screws X4, Blockers X4, And 2 Rods Explanted:Qty: 1 on 09/14/2017 by Dee Casillas MD at [facility] N/A: Spine Cervical Anterior Insurance MEDICARE PART A AND B GENERIC PAYOR RX [facility] Medicare Part D [facility] MEDICARE PART A AND B Advance Directives For more information, please contact: [phone] * Full Code (Latest Code Status on [...] 9:28 AM 06/15/2016 5:17 PM Care Teams Back Joiner Relationship Specialty Start Date End Date Marsha Turner MD [address] [place] [address] PCP - General Internal Medicine 05/31/12
--- OUTSIDE RECORDS SUMMARY | 2024-10-13 03:14 | XMS_ITS | Encounter Summary ---
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
--- OUTSIDE RECORDS SUMMARY | 2024-10-13 03:14 | XMS_ITS | Encounter Summary ---
Author Organization [facility] Address [address] [place] [address] Care Team Providers Care Electron Beam Operator Name Role Phone Marsha Turner MD Primary Care Provider +1- [phone] Encounter Details Date Type Department Care Team (Late st Contact Info) Description 10/17/2007 Outpatient Historical [facility] [place] [address] [place] [address] Thomas Mack MD NO ADDRESS ON FILE Social History Tobacco Use Types Packs/Day Years Used Date Smoking Tobacco: Never Assessed Sex and Gender Information Value Date Recorded Sex Assigned at Not on file 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 BLOOD UA NEGATIVE NEGATIVE [facility] NITRITE UA NEGATIVE NEGATIVE [facility] UROBILINOGEN UA 0.2 0.2 [facility] CLARITY UA Clear Clear [facility] SPECIFIC GRAVITY UA 1.025 <=1.005 [facility] GLUCOSE UA NEGATIVE NEGATIVE [facility] PH UA 5.5 5.0 - 9.0 [facility] BILIRUBIN UA NEGATIVE NEGATIVE [facility] LEUKOCYTE ESTERASE UA NEGATIVE NEGATIVE [facility] KETONES UA NEGATIVE NEGATIVE [facility] MICRO EXAM No No [facility] Urine specimen (specimen) 10/17/2007 6:43 PM CDT 10/17/2007 6:43 PM CDT Thomas Mack MD URINE ORDERABLES Final Result Performing Organization Address [facility] de Phone Number [facility] CLIA# [id number] [address] [place] [address] * PSA MEDICARE SCREEN (10/17/2007 6:00 PM CDT) PSA 0.8 0.0 - 4.0 ng/mL [facility] Blood specimen (specimen) 10/17/2007 6:00 PM CDT 10/17/2007 6:05 PM CDT Thomas Mack MD CHEMISTRY ORDERABLES C OM Final Result Performing Organization Address [facility] de Phone Number [facility] CLIA# [id number] [address] [place] [address] * (ABNORMAL) CBC WITH DIFFERENTIAL (10/17/2007 6:00 PM CDT) MONOCYTES 8.9 2.0 - 10.0 % [facility] RDW 13.8 11.0 - 14.5 % [facility] MONOCYTE ABSOLUTE 0.5 0.1 - 0.6 K/ul [facility] WBC 5.3 4.8 - 10.8 K/ul [facility] NEUTROPHILS 72.9 42.2 - 75.2 % [facility] MCH 29.6 27.0 - 34.0 pg [facility] NEUTROPHIL ABSOLUTE 3.9 2.0 - 8.0 K/ul [facility] HEMATOCRIT 38.6(L) 41.0 - 53.0 % [facility] PLATELETS 190 140 - 440 K/ul [facility] EOSINOPHIL ABSOLUTE 0.1 0.0 - 0.7 K/ul [facility] EOSINOPHILS 1.5 0.0 - 7.0 % [facility] RBC 4.29(L) 4.60 - 6.20 Mil/ul [facility] MCHC 32.9 30.0 - 35.0 g/dL [facility] LYMPHOCYTE ABSOLUTE 0.8(L) 1.2 - 4.0 K/ul [facility] LYMPHOCYTES 15.8(L) 24.0 - 44.0 % [facility] MCV 90.0 84.0 - 103.0 Fl [facility] BASOPHILS 0.9 0.0 - 1.0 % [facility] MPV 9.6 8.9 - 12.8 Fl [facility] BASOPHILS ABSOLUTE 0.1 0.0 - 0.2 K/ul [facility] HEMOGLOBIN 12.7(L) 14.0 - 18.0 g/dL [facility] Blood specimen (specimen) 10/17/2007 6:00 PM CDT 10/17/2007 6:05 PM CDT Thomas Mack MD HEMATOLOGY ORDERABLES Final Result Performing Organization Address [facility] de Phone Number [facility] CLIA# [id number] [address] [place] [address] * ANTIBODY SCREEN (10/17/2007 6:00 PM CDT) [facility] Signature ANTIBODY SCREEN Negative [facility] Blood specimen (specimen) 10/17/2007 6:00 PM CDT 10/17/2007 6:05 PM CDT Thomas Mack MD BLOOD BANK ORDERABLES Final Result Performing Organization Address [facility] de Phone Number [facility] CLIA# [id number] [address] [place] [address] * ABORH TYPING (10/17/2007 6:00 PM CDT) ABO/RH TYPE A Positive [facility] Blood specimen (specimen) 10/17/2007 6:00 PM CDT 10/17/2007 6:05 PM CDT Thomas Mack MD BLOOD BANK ORDERABLES Final Result Performing Organization Address [facility] de Phone Number [facility] CLIA# [id number] [address] [place] [address] * PTT (10/17/2007 6:00 PM CDT) PTT 31.3 22.5 - 36.5 Secs [facility] Comment: Therapeutic Range: Hi-level PE/DVT heparin protocol 80.1 -95.0 sec Lo-level PE/DVT heparin protocol 67.1 - 80.0 sec Cardiac Heparin Protocol 67.1 - 85.0 sec Neuro Heparin Protocol 67.1 - 80.0 sec As of 06/02/2007 note change in APTT Normal Range. Blood specimen (specimen) 10/17/2007 6:00 PM CDT 10/17/2007 6:05 PM CDT Thomas Mack MD HEMATOLOGY ORDERABLES Final Result Performing Organization Address [facility] de Phone Number [facility] CLIA# [id number] [address] [place] [address] * PROTIME-INR (10/17/2007 6:00 PM CDT) PROTIME 13.6 12.8 - 15.8 Secs [facility] Comment:As of 2007 not e change in normal range. INR 0.9 [facility] Comment: Expected Values for INR: DVT/PE Goal INR 2.5; range 2.0 - 3.0 Valve Replacement Tissue Goal INR 2.5; range 2.0 - 3.0 Mechanical Goal INR 3.0; range 2.5 - 3.5 POST-LA Goal INR 2.5; range 2.0 - 3.0 or Goal 3.0; range 2.5 - 3.5 Atrial Fibrillation Goal INR 2.5; range 2.0 - 3.0 Ischemic Stroke Goal INR 2.5; range 2.0 - 3.0 For additional information see Guidelines for Anticoagulation available from the pharmacy Nichelle Mike [phone] Blood specimen (specimen) 10/17/2007 6:00 PM CDT 10/17/2007 6:05 PM CDT us Thomas Mack MD HEMATOLOGY ORDERABLES Final Result [facility] CLIA# [id number] [address] [place] [address] * COMPREHENSIVE METABOLIC PANEL (10/17/2007 6:00 PM CDT) CREATININE 1.0 0.7 - 1.5 mg/dL [facility] ALT 32 4 - 36 IU/L [facility] CALCIUM 10.0 8.4 - 10.5 mg/dL [facility] OSMOLALITY, CALCULATED 287 275 - 295 mOsm/Kg [facility] GLUCOSE 108 70 - 110 mg/dL [facility] ALKALINE PHOSPHATASE 67 25 - 100 U/L [facility] CHLORIDE 108 95 - 110 mEq/L [facility] ALBUMIN/GLOBULIN RATIO 1.5 1.0 - 2.3 [facility] TOTAL PROTEIN 7.5 6.3 - 8.2 g/dL [facility] SODIUM 139 136 - 145 mEq/L [facility] BILIRUBIN TOTAL 0.4 0.3 - 1.2 mg/dL [facility] BUN 16 9 - 20 mg/dL [facility] CO2 26 22 - 32 mmol/l [facility] ANION GAP 9 9 - 20 mEq/L [facility] AST 27 8 - 33 U/L [facility] POTASSIUM 3.7 3.5 - 5.0 mEq/L [facility] GLOBULIN (CALC) 3.0 2.4 - 3.9 g/dL [facility] ALBUMIN 4.5 3.5 - 5.0 g/dL [facility] Blood specimen (specimen) 10/17/2007 6:00 PM CDT 10/17/2007 6:05 PM CDT us Thomas Mack MD CHEMISTRY ORDERABLES F inal Result [facility] CLIA# [id number] [address] [place] [address] documented in this encounter Visit Diagnoses Not on filedocumented in this encounter Care Teams Electron Beam Operator Relationship Specialty Start Date End Date Marsha Turner MD [address] [place], [place] [address] PCP - General Internal Medicine 05/31/12 documented as of this encounter
--- OUTSIDE RECORDS SUMMARY | 2024-10-13 03:14 | XMS_ITS | Encounter Summary ---
Author Organization [facility] Address [address] [place] [address] Care Team Providers Care Breaker Off Name Role Phone Marsha Turner MD Primary Care Provider +1- [phone] Encounter Details Date Type Department Care Team (Latest Contact Info) Description 10/05/2006 Outpatient Historical [facility] Operating Room [address] [place] [phone] Thomas Mack MD NO ADDRESS ON FILE Encounters for Unspecified Administrative Purpose (Primary Dx) Social History Tobacco Use Types Packs/Day Years Used Date Smoking Tobacco: Never Assessed Sex and Gender Information Value Date Recorded Sex Assigned at Not on file 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
--- OUTSIDE RECORDS SUMMARY | 2024-10-13 03:14 | XMS_ITS | Encounter Summary ---
Author Organization 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
--- OUTSIDE RECORDS SUMMARY | 2024-10-13 03:14 | XMS_ITS | Encounter Summary ---
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 Gender Identity Not on file Sexual Orientation Not on file documented as of this encounter Plan of Treatment Not on file documented as of this encounter Procedures Procedure Name Priority Date/Time Associated Diagnosis Comments XR LUMBAR SPINE 2 OR 3 VW Routine 02/06/2008 10:19 AM PRISON PSYCHIATRIST documented in this encounter Results * XR LUMBAR SPINE 2 OR 3 VW (02/06/2008 10:19 AM PRISON PSYCHIATRIST) Anatomical Region Laterality Modality Spine Other 02/06/2008 10:1 9 AM PRISON PSYCHIATRIST Narrative 02/06/2008 1:09 PM PRISON PSYCHIATRIST Exam: Spine - Lumbar Date/Time of Exam: [...] site documented in this encounter Care Teams Pharmacy Resource Tech Relationship Specialty Start Date End Date Marsha Turner MD [address] [place] [address] PCP - General Internal Medicine 05/31/12 documented as of this encounter
--- OUTSIDE RECORDS SUMMARY | 2024-10-13 03:14 | XMS_ITS | Encounter Summary ---
Author Organization [facility] Address [address] [place] [address] Care Team Providers Care Devops Engineer Name Role Phone Marsha Turner MD Primary Care Provider +1- [phone] Encounter Details Date Type Department Care Team (Late st Contact Info) Description 07/25/2007 Outpatient [facility] [address] [place] [address] [facility] [address] [place] [address] Dequan Tellez MD NO ADDRESS ON FILE Unilat Ing Hernia Social History Tobacco Use Types Packs/Day Years Used Date Smoking Tobacco: Never Assessed Sex and Gender Information Value Date Recorded Sex Assigned at Not on file 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
--- OUTSIDE RECORDS SUMMARY | 2024-10-13 03:14 | XMS_ITS | Encounter Summary ---
Author Organization 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
--- OUTSIDE RECORDS SUMMARY | 2024-10-13 03:14 | XMS_ITS | Encounter Summary ---
Author Organization 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
--- OUTSIDE RECORDS SUMMARY | 2024-10-13 03:14 | XMS_ITS | Encounter Summary ---
Author Organization [facility] Address [address] [place] [address] Care Team Providers Care Soa Engineer Name Role Phone Marsha Turner MD Primary Care Provider +1- [phone] Encounter Details Date Type Department Care Team (Late st Contact Info) Description 12/08/2007 Outpatient Historical [facility] DEFAULT DEPARTMENT Dee Casillas MD [address] [phone] Social History Tobacco Use Types Packs/Day Years Used Date Smoking Tobacco: Never Assessed Sex and Gender Information Value Date Recorded Sex Assigned at Not on file 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
--- OUTSIDE RECORDS SUMMARY | 2024-10-13 03:14 | XMS_ITS | Encounter Summary ---
Author Organization [facility] Address [address] [place] [address] Care Team Providers Care Showroom Salesperson Name Role Phone Marsha Turner MD Primary Care Provider +1- [phone] Encounter Details Date Type Department Care Team (Latest Contact Info) Description 03/02/2008 Outpatient 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 Gender Identity Not on file Sexual Orientation Not on file documented as of this encounter Plan of Treatment Not on file documented as of this encounter Procedures Procedure Name Priority Date/Time Associated Diagnosis Comments XR LUMBAR SPINE 2 OR 3 VW Routine 03/05/2008 1:38 PM SLUBBER FRAME CHANGER documented in this encounter Results * XR LUMBAR SPINE 2 OR 3 VW (03/05/2008 1:38 PM SLUBBER FRAME CHANGER) Anatomical Region Laterality Modality Spine Other 03/05/2008 1:38 PM SLUBBER FRAME CHANGER Narrative 03/06/2008 10:42 AM SLUBBER FRAME CHANGER Exam: Spine - Lumbar Date/Time of Exam: [...] myelopathy documented in this encounter Care Teams Showroom Salesperson Relationship Specialty Start Date End Date Marsha Turner MD [address] [place] [address] PCP - General Internal Medicine 05/31/12 documented as of this encounter
--- OUTSIDE RECORDS SUMMARY | 2024-10-13 03:14 | XMS_ITS | Encounter Summary ---
Author Organization [facility] Address [address] [place] [address] Care Team Providers Care Chemist Food Name Role Phone Marsha Turner MD Primary Care Provider +1- [phone] Reason for Referral * Outpatient Services (Routine) - Closed Specialty Diagnoses / Procedures Referred By Te caceres Referred To Contact Diagnoses Disorders of sacrum Procedures XR FLUORO NEEDLE GUIDANCE Kamar Leach MD Referral ID Status Reason Start Date Expiration Date Visits Re quested Visits Authorized [id number] Closed 06/11/2014 07/12/2015 1 1 Encounter Details Date Type Department Care Team (Late st Contact Info) Description 06/11/2014 Ancillary Orders [facility] Pain Management Procedures [place] [address] [place] [address] Kamar Leach MD NO ADDRESS ON FILE Disorders of sacrum (Primary Dx) Social History Tobacco Use Types Packs/Day Years Used Date Smoking Tobacco: Never Smokeless Tobacco: Never Alcohol Use Standard Drinks/Week Comments No 0 (1 standard drink = 0.6 oz pur e alcohol) Sex and Gender Information Value Date Recorded Sex Assigned at Not on file 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
--- OUTSIDE RECORDS SUMMARY | 2024-10-13 03:14 | XMS_ITS | Encounter Summary ---
Author Organization [facility] Address [address] [place] [address] Care Team Providers Care Bobbin Disker Name Role Phone Marsha Turner MD Primary Care Provider +1- [phone] Encounter Details Date Type Department Care Team (Latest Contact Info) Description 12/21/2007 Outpatient [facility] [address] [place] [address] [facility] [address] [place] [address] Dee Casillas MD [address] [address] Unspecified Backache; Arthrodesis Status; Old Myocardial Infarction; Diaphragmatic Hernia without Mention of Obstruction or Gangrene; Unspecified Asthma; Headache; Unspecified Heart Failure (CMS/HCC) Social History Tobacco Use Types Packs/Day Years Used Date Smoking Tobacco: Never Assessed Sex and Gender Information Value Date Recorded Sex Assigned at Not on file 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
--- OUTSIDE RECORDS SUMMARY | 2024-10-13 03:14 | XMS_ITS | Clinical Summary ---
Author Organization [facility] Address [address] 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 Gender Identity Not on file Sexual [...] years Discontinued Medical Devices Implanted Type Area Manager Intranet Device Identifier Shelf Expiration Date Model / Serial / Lot Vitoss Foam Ba 1.2ml [id number] - Sna Implanted:Qty: 1 on 04/18/2013 Biological N/A: Spine Cervical Anterior LISA- SPINE 10/13/2014 / NA / [id number] [place] C Stand Alone Cage [id number] Implanted:Qty: 1 on 04/18/2013 by John Castillo MD Cage N/A: Spine Cervical Anterior LISA- SPINE 00528057 / LD [id number] / NA Cement Palacos R+G [phone] - Sna Implanted:Qty: 2 on 09/29/2012 Cement Left: Knee SHIRA US INC 01/13/201658-3338-413-01 / NA / NA Hemostatic Gelfoam Powder 1gm [id number] - [id number] Implanted:Qty: 1 on 05/20/2015 by Dee Casillas MD Hemostatic N/A: Spine Thoracic PFIZER- PHARM 10/12/201784159771217 / / [id number] Hemostatic Gelfoam Powder 1gm [id number] - [id number] Implanted:Qty: 1 on 09/14/2017 by Dee Casillas MD Hemostatic N/A: Back PFIZER- PHARM 11/13/2019 [id number] / / [id number] Gel-Flow Nt Implanted:Qty: 1 on 08/12/2018 by Dee Casillas MD Hemostatic N/A: Spine Cervical Anterior PFIZER- PHARMACIA AND UPJOHN I 08/04/2019 / / [id number] Bearing Tib Vng 10mm 79/83mm 069115 - [id number] Implanted:Qty: 1 on 09/29/2012 Knee Left: Knee BIOMET INC 05/12/2017 495812 / / [id number] Comp Fem Vng Ps Sz72.5 Lt 222358 - [id number] Implanted:Qty: 1 on 09/29/2012 Knee Left: Knee BIOMET INC 06/12/2022 800098 / / [id number] Comp Tib Cocr Finned 83mm 918292 - [id number] Implanted:Qty: 1 on 09/29/2012 Knee Left: Knee BIOMET INC 03/14/2022 536397 / / [id number] Standard Patella Implanted:Qty: 1 on 09/29/2012 by Dylon Abreu MD Knee Left: Knee BIOMET- ORTHOPEDICS, INC 07/12/2017 027688 / / [id number] Plate Hybrid Cerv 12mm 53296700 - Sld [id number] Implanted:Qty: 1 on 04/18/2013 Plate N/A: Spine Cervical Anterior LISA- SPINE 86457063 / LD [id number] / NA Issac Lgcy Crv Ti 5.6z923vu 7821553 - [id number] Implanted:Qty: 1 on 09/14/2017 by Dee Casillas MD Issac N/A: Back MEDTRONIC- SOFAMOR DANEK 09/15/2019 6867949 / / [id number] Issac Lgcy Crv Ti 5.5j865pq 3627656 - [id number] Implanted:Qty: 1 on 09/14/2017 by Dee Casillas MD Issac N/A: Back MEDTRONIC- SOFAMOR DANEK 09/15/2019 3967859 / / [id number] Issac Std 3.0o985aj 1126497 - [id number] Implanted:Qty: 2 on 08/12/2018 by Dee Casillas MD Issac N/A: Spine Cervical Anterior MEDTRONIC- SOFAMOR DANEK 7209817 / [id number] / Screw Rh St Va 4.0x14mm 64741983 - Sld [id number] Implanted:Qty: 2 on 04/18/2013 Screw N/A: Spine Cervical Anterior LISA- SPINE 32878829 / LD [id number] / NA Screw Sd 3.5x10mm 50353491 - Sld [id number] Implanted:Qty: 2 on 04/18/2013 Screw N/A: Spine Cervical Anterior LISA- SPINE 26372175 / LD [id number] / NA Screw Rh Sd Fa 4.0x14mm 26514347 - Sld [id number] Implanted:Qty: 1 on 04/18/2013 Screw N/A: Spine Cervical Anterior LISA- SPINE 46998264 / LD [id number] / NA Screw Rh St Fa 4.0x14mm 96782392 - Sld [id number] Implanted:Qty: 1 on 04/18/2013 Screw N/A: Spine Cervical Anterior LISA- SPINE 92475793 / LD [id number] / NA Screw Legacy Ma 6.5x50mm 40842585 - [id number] Implanted:Qty: 1 on 09/14/2017 by Dee Casillas MD Screw N/A: Back MEDTRONIC- SOFAMOR DANEK 49599555 / / [id number] Screw Legacy Ma 6.5x50mm 91373271 - [id number] Implanted:Qty: 1 on 09/14/2017 by Dee Casillas MD Screw N/A: Back MEDTRONIC- SOFAMOR DANEK 21006173 / / [id number] Screw Legacy Ma 7.5x50mm 85343055 - [id number] Implanted:Qty: 1 on 09/14/2017 by Dee Casillas MD Screw N/A: Back MEDTRONIC- SOFAMOR DANEK 27442758 / / [id number] Screw Legacy Ma 7.5x50mm 92863841 - [id number] Implanted:Qty: 1 on 09/14/2017 by Dee Casillas MD Screw N/A: Back MEDTRONIC- SOFAMOR DANEK 75530146 / / [id number] Set Screw Break Off Ti 5949357 - [id number] Implanted:Qty: 1 on 09/14/2017 by Dee Casillas MD Screw N/A: Back MEDTRONIC- SOFAMOR DANEK 1816895 / / [id number] Set Screw Break Off Ti 1689727 - [id number] Implanted:Qty: 1 on 09/14/2017 by Dee Casillas MD Screw N/A: Back MEDTRONIC- SOFAMOR DANEK 8214597 / / [id number] Set Screw Break Off Ti 7904093 - [id number] Implanted:Qty: 1 on 09/14/2017 by Dee Casillas MD Screw N/A: Back MEDTRONIC- SOFAMOR DANEK 5364916 / / [id number] Set Screw Break Off Ti 4739732 - [id number] Implanted:Qty: 1 on 09/14/2017 by Dee Casillas MD Screw N/A: Back MEDTRONIC- SOFAMOR DANEK 5802323 / / [id number] Set Screw Break Off Ti 7234124 - [id number] Implanted:Qty: 1 on 09/14/2017 by Dee Casillas MD Screw N/A: Back MEDTRONIC- SOFAMOR DANEK 5007566 / / [id number] Set Screw Break Off Ti 4908952 - [id number] Implanted:Qty: 1 on 09/14/2017 by Dee Casillas MD Screw N/A: Back MEDTRONIC- SOFAMOR DANEK 7606502 / / [id number] Set Screw Break Off Ti 5144169 - [id number] Implanted:Qty: 1 on 09/14/2017 by Dee Casillas MD Screw N/A: Back MEDTRONIC- SOFAMOR DANEK 5440063 / / [id number] Set Screw Break Off Ti 6356790 - [id number] Implanted:Qty: 1 on 09/14/2017 by Dee Casillas MD Screw N/A: Back MEDTRONIC- SOFAMOR DANEK 8801284 / / [id number] Infinity Screw Implanted:Qty: 7 on 08/12/2018 by Dee Casillas MD Screw N/A: Spine Cervical Anterior MEDTRONIC- NEUROSURGERY 8806594 / [id number] / Description:PER INVOICE Infinity Screw Implanted:Qty: 2 on 08/12/2018 by Dee Casillas MD Screw N/A: Spine Cervical Anterior MEDTRONIC- NEUROSURGERY 5037320 / [id number] / Description:PER INVOICE Infinity Screw Implanted:Qty: 2 on 08/12/2018 by Dee Casillas MD Screw N/A: Spine Cervical Anterior MEDTRONIC- NEUROSURGERY 7428739 / [id number] / Description:PER INVOICE Infinity Set Screws Implanted:Qty: 11 on 08/12/2018 by Dee Casillas MD Screw N/A: Spine Cervical Anterior 6702844 / [id number] / Description:PER INVOICE Spacer As [id number] 04108831 - Sld [id number] Implanted:Qty: 1 on 04/18/2013 Spacer N/A: Spine Cervical Anterior LISA- SPINE 46590019 / LD [id number] / NA Crosslink Lp Mltspn L=1.75-2.15 811-322 - [id number] Implanted:Qty: 1 on 09/14/2017 by Dee Casillas MD Spine N/A: Back MEDTRONIC- SOFAMOR ALVINAEK 09/15/2019 811-322 / / [id number] Description:09/17 inv pricing Putty Bio Dbm 10ml 3250617 - [id number] Implanted:Qty: 1 on 09/14/2017 by Dee Casillas MD Tissue N/A: Back LISA- HOWMEDICA INT INC 05/27/2019 2734880 / / [id number] Putty Bio Dbm 10ml 0240760 - [id number] Implanted:Qty: 1 on 09/14/2017 by Dee Casillas MD Tissue N/A: Back LISA- HOWMEDICA INT INC 05/16/2019 9386792 / / [id number] Readigraft Canc Chips 30ml Can30 14bp - [id number] Implanted:Qty: 1 on 09/14/2017 by Dee Casillas MD Tissue N/A: Back ITeam 08/20/2019 CAN30 14BP / / [id number] Putty Bio Dbm 10ml 9540152 - [id number] Implanted:Qty: 1 on 08/12/2018 by Dee Casillas MD Tissue N/A: Spine Cervical Anterior LISA- HOWMEDICA INT INC 04/13/2020 7422646 / / [id number] Putty Bio Dbm 10ml 8394684 - [id number] Implanted:Qty: 1 on 08/12/2018 by Dee Casillas MD Tissue N/A: Spine Cervical Anterior LISA- HOWMEDICA INT INC 04/13/2020 7846067 / / [id number] Explanted Type Area Manager Intranet Device Identifier Shelf Expiration Date Model / Serial / Lot Stim Spnl Cord Precision Spectra [id number] - [id number] Implanted:Qty : 1 on 05/20/2015 by Dee Casillas MD Explanted:Qty : 1 on 06/15/2016 by Dee Casillas MD Neuro Right: Spine Thoracic [employer]- NEURO MODULATION 05/02/2017 IA-1132 / / [id number] Infinity Set Screws Explanted:Qty : 2 on 08/12/2018 Screw N/A: Spine Cervical Anterior MEDTRONIC- NEUROSURGERY 5402450 / [id number] / Description:PER INVOICE Cover Edge 32 70cm 4x8 Oil And Gas Principal Kit [id number] Implanted:Qty : 1 on 05/20/2015 by Dee Casillas MD Explanted:Qty : 1 on 06/15/2016 by Dee Casillas MD N/A: Spine Thoracic [employer] INC 02/11/2017 / [id number] / [id number] Set Screws X4, Blockers X4, And 2 Rods Explanted:Qty : 1 on 09/14/2017 by Dee Casillas MD N/A: Spine Cervical Anterior Insurance MEDICARE PART A AND B [employer] * Guarantor: KOJO MARINELLI Account Type Relation to Patient Date of Phone Billing Address Personal/Family [address] [place] [address] RX [facility] Medicare Part D Care Teams Television Servicer Relationship Specialty Start Date End Date Marsha Turner MD [address] [place] [address] PCP - General 06/12/20
--- OUTSIDE RECORDS SUMMARY | 2024-10-13 03:14 | XMS_ITS | Encounter Summary ---
Author Organization [facility] Address [address] [place] [address] Care Team Providers Care Pit Furnace Melter Name Role Phone Marsha Turner MD Primary Care Provider +1- [phone] Encounter Details Date Type Department Care Team (Late st Contact Info) Description 02/06/2008 Outpatient Historical [facility] DEFAULT DEPARTMENT Dee Casillas MD [address] [id number] Social History Tobacco Use Types Packs/Day Years Used Date Smoking Tobacco: Never Assessed Sex and Gender Information Value Date Recorded Sex Assigned at Not on file 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
--- OUTSIDE RECORDS SUMMARY | 2024-10-13 03:14 | XMS_ITS | Encounter Summary ---
Author Organization [facility] Address [address] [place] [address] Care Team Providers Care Medical Staff Assistant Name Role Phone Marsha Turner MD Primary Care Provider +1- [phone] Encounter Details Date Type Department Care Team (Late st Contact Info) Description 09/23/2005 Outpatient Historical [facility] Services-Louis Abraham Laura [address] [place] [address] Thomas Mack MD NO ADDRESS ON FILE Bilat Ing Hernia (Primary Dx) Social History Tobacco Use Types Packs/Day Years Used Date Smoking Tobacco: Never Assessed Sex and Gender Information Value Date Recorded Sex Assigned at Not on file 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
--- OUTSIDE RECORDS SUMMARY | 2024-10-13 03:14 | XMS_ITS | Encounter Summary ---
Author Organization [facility] Address [address] [place] [address] Care Team Providers Care Victim Advocate Name Role Phone Marsha Turner MD Primary Care Provider +1- [phone] Encounter Details Date Type Department Care Team (Latest Contact Info) Description 08/26/2018 Ancillary Orders [facility] Spine Neurosurgery [address] [place] [address] Aliyah Lange, PA [address] [place] [address] Status post lumbar spinal fusion Social History Tobacco Use Types Packs/Day Years Used Date Smoking Tobacco: Never Smokeless Tobacco: Never Alcohol Use Standard Drinks/Week Comments No 0 (1 standard drink = 0.6 oz pur e alcohol) Sex and Gender Information Value Date Recorded Sex Assigned at Not on file 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 IMPRESSION: 1. Interval posterior fusion. [id number] Narrative Procedure Note Chang Rai MD - [...] skin sean. IMPRESSION: 1. Interval posterior fusion. [id number] Aliyah MONTALVO DIAGNOSTIC IMAGING ORDERABLES Final Result documented in this encounter Visit Diagnoses Diagnosis Status post lumbar spinal fusion Arthrodesis status Status post lumbar spinal fusion Arthrodesis status documented in this encounter Care Teams Victim Advocate Relationship Specialty Start Date End Date Marsha Turner MD [address] [place] [address] PCP - General Internal Medicine 05/31/12 documented as of this encounter
--- OUTSIDE RECORDS SUMMARY | 2024-10-13 03:14 | XMS_ITS | Encounter Summary ---
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
--- OUTSIDE RECORDS SUMMARY | 2024-10-13 03:14 | XMS_ITS | Encounter Summary ---
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
--- OUTSIDE RECORDS SUMMARY | 2024-10-13 03:14 | XMS_ITS | Encounter Summary ---
Author Organization [facility] Address [address] [place] [address] Care Team Providers Care Phlebotomy Technologist Name Role Phone Marsha Turner MD Primary Care Provider +1- [phone] Encounter Details Date Type Department Care Team (Late st Contact Info) Description 01/03/2008 Outpatient Historical [facility] Dee Casillas MD [address] [address] Social History Tobacco Use Types Packs/Day Years Used Date Smoking Tobacco: Never Assessed Sex and Gender Information Value Date Recorded Sex Assigned at Not on file Legal Sex Male 6:16 AM CERAMIC SPRAYER Gender Identity Not on file Sexual Orientation Not on file documented as of this encounter Plan of Treatment Not on file documented as of this encounter Procedures Procedure Name Priority Date/Time Associated Diagnosis Comments CBC WITH DIFFERENTIAL Routine 01/26/2008 4:13 AM CERAMIC SPRAYER COMPREHENSIVE METABOLIC PANEL Routine 01/26/2008 4:13 AM CERAMIC SPRAYER CBC WITH DIFFERENTIAL Routine 01/25/2008 3:17 AM CERAMIC SPRAYER COMPREHENSIVE METABOLIC PANEL Routine 01/25/2008 3:17 AM CERAMIC SPRAYER POC GLUCOSE Routine 01/25/2008 12:12 AM CERAMIC SPRAYER POC GLUCOSE Routine 01/24/2008 7:55 PM CERAMIC SPRAYER XR FLUORO GREATER THAN 1 HOUR Routine 01/24/2008 4:26 PM CERAMIC SPRAYER HEMOGLOBIN AND HEMATOCRIT Stat 01/24/2008 3:06 PM CERAMIC SPRAYER ABORH TYPING Stat 01/24/2008 9:50 AM CERAMIC SPRAYER TYPE AND CROSSMATCH Stat 01/24/2008 9 :50 AM CERAMIC SPRAYER BLOOD BANK ANTIBODY SCREEN Stat 01/24/2008 9:50 AM CERAMIC SPRAYER documented in this encounter Results * (ABNORMAL) COMPREHENSIVE METABOLIC PANEL (01/26/2008 4:13 AM CERAMIC SPRAYER) ALKALINE PHOSPHATASE 44 25 - 100 U/L [facility] CHLORIDE 108 95 - 110 mEq/L [facility] OSMOLALITY, CALCULATED 281 275 - 295 mOsm/Kg [facility] GLOBULIN (CALC) 2.1(L) 2.4 - 3.9 g/dL [facility] TOTAL PROTEIN 5.1(L) 6.3 - 8.2 g/dL [facility] SODIUM 137 136 - 145 mEq/L [facility] BILIRUBIN TOTAL 0.4 0.3 - 1.2 mg/dL [facility] CO2 26 22 - 32 mmol/l [facility] BUN 7(L) 9 - 20 mg/dL [facility] AST 22 8 - 33 U/L [facility] ALBUMIN/GLOBULIN RATIO 1.4 1.0 - 2.3 [facility] POTASSIUM 3.9 3.5 - 5.0 mEq/L [facility] ANION GAP 7(L) 9 - 20 mEq/L [facility] ALBUMIN 3.0(L) 3.5 - 5.0 g/dL [facility] CREATININE 0.6(L) 0.7 - 1.5 mg/dL [facility] ALT 13 4 - 36 IU/L [facility] CALCIUM 8.1(L) 8.4 - 10.5 mg/dL [facility] GLUCOSE 113(H) 70 - 110 mg/dL [facility] Blood specimen (specimen) 01/26/2008 4:13 AM CERAMIC SPRAYER 01/26/2008 4:49 AM CERAMIC SPRAYER us Dee Casillas MD CHEMISTRY ORDERABLES Final Resul t Performing Organization Address City/State/[facility] Co de Phone Number INTERFACE SYSTEM Refer to clinic/hospital department [facility] CLIA# [id number] [address] [place] [address] * (ABNORMAL) CBC WITH DIFFERENTIAL (01/26/2008 4:13 AM CERAMIC SPRAYER) WBC 5.4 4.8 - 10.8 K/ul [facility] MCH 29.9 27.0 - 34.0 pg [facility] NEUTROPHIL ABSOLUTE 4.0 2.0 - 8.0 K/ul [facility] NEUTROPHILS 72.9 42.2 - 75.2 % [facility] HEMATOCRIT 28.4(L) 41.0 - 53.0 % [facility] EOSINOPHILS 1.3 0.0 - 7.0 % [facility] PLATELETS 187 140 - 440 K/ul [facility] EOSINOPHIL ABSOLUTE 0.1 0.0 - 0.7 K/ul [facility] RBC 3.14(L) 4.60 - 6.20 Mil/ul [facility] LYMPHOCYTES 13.6(L) 24.0 - 44.0 % [facility] MCHC 33.1 30.0 - 35.0 g/dL [facility] LYMPHOCYTE ABSOLUTE 0.7(L) 1.2 - 4.0 K/ul [facility] MCV 90.4 84.0 - 103.0 Fl [facility] MPV 9.0 8.9 - 12.8 Fl [facility] BASOPHILS ABSOLUTE 0.0 0.0 - 0.2 K/ul [facility] BASOPHILS 0.4 0.0 - 1.0 % [facility] HEMOGLOBIN 9.4(L) 14.0 - 18.0 g/dL [facility] RDW 13.9 11.0 - 14.5 % [facility] MONOCYTE ABSOLUTE 0.6 0.1 - 0.6 K/ul [facility] MONOCYTES 11.8(H) 2.0 - 10.0 % [facility] Blood specimen (specimen) 01/26/2008 4:13 AM CERAMIC SPRAYER 01/26/2008 4:49 AM CERAMIC SPRAYER us Dee Casillas MD HEMATOLOGY ORDERABLES Final Resu lt INTERFACE SYSTEM Refer to clinic/hospital department [facility] CLIA# [id number] [address] [place] [address] * (ABNORMAL) COMPREHENSIVE METABOLIC PANEL (01/25/2008 3:17 AM CERAMIC SPRAYER) CALCIUM 7.7(L) 8.4 - 10.5 mg/dL [facility] CREATININE 0.7 0.7 - 1.5 mg/dL [facility] ALT 18 4 - 36 IU/L [facility] GLUCOSE 127(H) 70 - 110 mg/dL [facility] CHLORIDE 111(H) 95 - 110 mEq/L [facility] OSMOLALITY, CALCULATED 283 275 - 295 mOsm/Kg [facility] ALKALINE PHOSPHATASE 47 25 - 100 U/L [facility] GLOBULIN (CALC) 1.8(L) 2.4 - 3.9 g/dL [facility] SODIUM 138 136 - 145 mEq/L [facility] BILIRUBIN TOTAL 0.4 0.3 - 1.2 mg/dL [facility] TOTAL PROTEIN 4.8(L) 6.3 - 8.2 g/dL [facility] BUN 8(L) 9 - 20 mg/dL [facility] AST 21 8 - 33 U/L [facility] CO2 27 22 - 32 mmol/l [facility] ALBUMIN/GLOBULIN RATIO 1.7 1.0 - 2.3 [facility] ALBUMIN 3.0(L) 3.5 - 5.0 g/dL [facility] POTASSIUM 3.7 3.5 - 5.0 mEq/L [facility] ANION GAP 4(L) 9 - 20 mEq/L [facility] Blood specimen (specimen) 01/25/2008 3:17 AM CERAMIC SPRAYER 01/25/2008 3:41 AM CERAMIC SPRAYER us Dee Casillas MD CHEMISTRY ORDERABLES Final Resul t INTERFACE SYSTEM Refer to clinic/hospital department [facility] CLIA# [id number] [address] [place] [address] * (ABNORMAL) CBC WITH DIFFERENTIAL (01/25/2008 3:17 AM CERAMIC SPRAYER) MCV 90.4 84.0 - 103.0 Fl [facility] MPV 9.0 8.9 - 12.8 Fl [facility] BASOPHILS 0.6 0.0 - 1.0 % [facility] BASOPHILS ABSOLUTE 0.0 0.0 - 0.2 K/ul [facility] HEMOGLOBIN 9.1(L) 14.0 - 18.0 g/dL [facility] RDW 14.2 11.0 - 14.5 % [facility] MONOCYTES 10.1(H) 2.0 - 10.0 % [facility] MONOCYTE ABSOLUTE 0.5 0.1 - 0.6 K/ul [facility] WBC 5.1 4.8 - 10.8 K/ul [facility] MCH 30.2 27.0 - 34.0 pg [facility] NEUTROPHILS 73.7 42.2 - 75.2 % [facility] NEUTROPHIL ABSOLUTE 3.7 2.0 - 8.0 K/ul [facility] HEMATOCRIT 27.2(L) 41.0 - 53.0 % [facility] PLATELETS 179 140 - 440 K/ul [facility] EOSINOPHIL ABSOLUTE 0.0 0.0 - 0.7 K/ul [facility] EOSINOPHILS 0.6 0.0 - 7.0 % [facility] RBC 3.01(L) 4.60 - 6.20 Mil/ul [facility] LYMPHOCYTES 15.0(L) 24.0 - 44.0 % [facility] MCHC 33.5 30.0 - 35.0 g/dL [facility] LYMPHOCYTE ABSOLUTE 0.8(L) 1.2 - 4.0 K/ul [facility] Blood specimen (specimen) 01/25/2008 3:17 AM CERAMIC SPRAYER 01/25/2008 3:41 AM CERAMIC SPRAYER Dee Casillas MD HEMATOLOGY ORDERABLES Final Resu lt Performing Organization Address City/[facility] de Phone Number INTERFACE SYSTEM Refer to clinic/hospital department [facility] CLIA# [id number] [address] [place] [address] * (ABNORMAL) POC GLUCOSE (01/25/2008 12:12 AM CERAMIC SPRAYER) GLUCOSE POC 131(H) 60 - 100 mg/dL [facility] Venous blood specimen (specimen) 01/25/2008 12:12 AM CERAMIC SPRAYER 01/25/2008 2:51 AM CERAMIC SPRAYER Dee Casillas MD POINT OF CARE TESTING Final Resu lt Performing Organization Address [facility] Phone Number INTERFACE SYSTEM Refer to clinic/hospital department [facility] CLIA# [id number] [address] [place] [address] * (ABNORMAL) POC GLUCOSE (01/24/2008 7:55 PM CERAMIC SPRAYER) GLUCOSE POC 129(H) 60 - 100 mg/dL [facility] Venous blood specimen (specimen) 01/24/2008 7:55 PM CERAMIC SPRAYER 01/25/2008 2:51 AM CERAMIC SPRAYER Result [facility] us Dee Casillas MD POINT OF CARE TESTING Final Resu lt Performing Organization Address [facility] de Phone Number INTERFACE SYSTEM Refer to clinic/hospital department [facility] CLIA# [id number] [address] [place] [address] * XR FLUORO > 1 HOUR (01/24/2008 4:26 PM CERAMIC SPRAYER) Anatomical Region Laterality Modality Other 01/24/2008 4:26 PM CERAMIC SPRAYER Narrative 01/24/2008 4:26 PM CERAMIC SPRAYER Finalized by interface cleanup utility. No report expected. Procedure Note 03/25/2008 Finalized by interface cleanup utility. No report expected. us Dee Casillas MD DIAGNOSTIC IMAGING ORDERABLES Fi nal Result * (ABNORMAL) HEMOGLOBIN AND HEMATOCRIT (01/24/2008 3:06 PM CERAMIC SPRAYER) HEMOGLOBIN 9.9(L) 14.0 - 18.0 g/dL [facility] HEMATOCRIT 29.2(L) 41.0 - 53.0 % [facility] Blood specimen (specimen) 01/24/2008 3:06 PM CERAMIC SPRAYER 01/24/2008 3:06 PM CERAMIC SPRAYER Result [facility] us Dee Casillas MD HEMATOLOGY ORDERABLES Final Resu lt Performing Organization Address [facility] de Phone Number INTERFACE SYSTEM Refer to clinic/hospital department [facility] CLIA# [id number] [address] [place] [address] * TYPE AND CROSSMATCH (01/24/2008 9:50 AM CERAMIC SPRAYER) BLOOD BANK PRODUCT INTERFACE SYSTEM Blood specimen (specimen) 01/24/2008 9:50 AM CERAMIC SPRAYER 01/24/2008 9:53 AM CERAMIC SPRAYER Result [facility] Dee Casillas MD BLOOD BANK ORDERABLES Final Resu lt Performing Organization Address City/[facility] Co de Phone Number INTERFACE SYSTEM Refer to clinic/hospital department * ANTIBODY SCREEN (01/24/2008 9:50 AM CERAMIC SPRAYER) ANTIBODY SCREEN Negative [facility] Blood specimen (specimen) 01/24/2008 9:50 AM CERAMIC SPRAYER 01/24/2008 9:53 AM CERAMIC SPRAYER Dee Casillas MD BLOOD BANK ORDERABLES Final Resu lt Performing Organization Address [facility] de Phone Number INTERFACE SYSTEM Refer to clinic/hospital department [facility] CLIA# [id number] [address] [place] [address] * ABORH TYPING (01/24/2008 9:50 AM CERAMIC SPRAYER) ABO/RH TYPE A Positive [facility] Blood specimen (specimen) 01/24/2008 9:50 AM CERAMIC SPRAYER 01/24/2008 9:53 AM CERAMIC SPRAYER Dee Casillas MD BLOOD BANK ORDERABLES Final Resu lt Performing Organization Address [facility] de Phone Number INTERFACE SYSTEM Refer to clinic/hospital department [facility] CLIA# [id number] [address] [place] [address] documented in this encounter Visit Diagnoses Not on filedocumented in this encounter Care Teams Phlebotomy Technologist Relationship Specialty Start Date End Date Marsha Turner MD [address] [place] [address] PCP - General Internal Medicine 05/31/12 documented as of this encounter
--- OUTSIDE RECORDS SUMMARY | 2024-10-13 03:14 | XMS_ITS | Encounter Summary ---
Author Organization [facility] Address [address] [place] [address] Care Team Providers Care Crib Tender Name Role Phone Masrha Turner MD Primary Care Provider +1- [phone] Encounter Details Date Type Department Care Team (Late st Contact Info) Description 11/30/2007 Outpatient Historical [facility] Pain Management Procedures [address] 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 Date Signed: 12/08/07 [facility] Procedure Note Florentino Lovell W - 12/08/2007 Views of the lumbar spine with flexion and extension were obtained. Thereis a posterior fusion L4, L5 and S1. Hardware is intact. The neutral, flexion and extension views showthat alignment is within normal limits. Mild to moderate degenerative disc disease is also noted [id number]. - Dictated By: Florentino Lovell M.D. Electronically [...] agent documented in this encounter Care Teams Crib Tender Relationship Specialty Start Date End Date Marsha Turner MD [address] [place] [address] PCP - General Internal Medicine 05/31/12 documented as of this encounter
--- OUTSIDE RECORDS SUMMARY | 2024-10-13 03:14 | XMS_ITS | Encounter Summary ---
Author Organization [facility] Address [address] [place] [address] Care Team Providers Care Audiovisual Aids Technician Name Role Phone Marsha Turner MD Primary Care Provider +1- [phone] Encounter Details Date Type Department Care Team (Late st Contact Info) Description 12/12/2007 Outpatient Historical [facility] Pain Management Procedures [address] [place] [id number] Kamar Leach MD NO ADDRESS ON FILE [...] on file Legal Sex Male 6:16 AM POCKET BUILDER Gender Identity Not on file Sexual Orientation [...] 12/22/2007 1:26 PM CDT Finalized by interface Scripped utility. No report expected. Procedure Note 03/25/2008 Finalized by interface Scripped utility. No report expected. us Kamar Leach MD DIAGNOSTIC IMAGING ORDERAB LES Final Result documented in this encounter Visit Diagnoses Diagnosis Unspecified asthma(493.90) Unspecified asthma Arthropathy, unspecified, site unspecified Diaphragmatic hernia without mention of obstruction or gangrene Personal history of unspecified circulatory disease Unspecified joint replacement by other means Personal history of allergy to analgesic agent documented in this encounter Care Teams Audiovisual Aids Technician Relationship Specialty Start Date End Date Marsha Turner MD [address] [place] [address] PCP - General Internal Medicine 05/31/12 documented as of this encounter
--- OUTSIDE RECORDS SUMMARY | 2024-10-13 03:14 | XMS_ITS | Encounter Summary ---
Author Organization [facility] Address [address] [place] [address] Care Team Providers Care Loading Dock Helper Name Role Phone Marsha Turner MD Primary Care Provider +1- [phone] Encounter Details Date Type Department Care Team (Late st Contact Info) Description 08/30/2007 [facility] [address] [place] [address] Thomas Mack MD NO ADDRESS ON FILE Malignant Neoplasm of Prostate (CMS/HCC) Social History Tobacco Use Types Packs/Day Years Used Date Smoking Tobacco: Never Assessed Sex and Gender Information Value Date Recorded Sex Assigned at Not on file Legal Sex Male 6:16 AM POST OFFICE MANAGER Gender Identity Not on file Sexual Orientation Not on file documented as of this encounter Plan of Treatment Not on file documented as of this encounter Procedures Procedure Name Priority Date/Time Associated Diagnosis Comments PSA MEDICARE DIAGNOSTIC Routine 08/30/2007 1:25 PM CDT documented in this encounter Results * PSA MEDICARE DIAGNOSTIC (08/30/2007 1:25 PM CDT) PSA 1.0 0.0 - 4.0 ng/mL [facility] Blood specimen (specimen) 08/30/2007 1:25 PM CDT 08/30/2007 3:26 PM CDT us Thomas Mack MD CHEMISTRY ORDERABLES F inal Result [facility] CLIA# [id number] [address] [place] [address] documented in this encounter Visit Diagnoses Diagnosis Malignant neoplasm of prostate (CMS/HCC) Malignant neoplasm of prostate documented in this encounter Care Teams Loading Dock Helper Relationship Specialty Start Date End Date Marsha Turner MD [address] [place] [address] PCP - General Internal Medicine 05/31/12 documented as of this encounter
--- OUTSIDE RECORDS SUMMARY | 2024-10-13 03:14 | XMS_ITS | Encounter Summary ---
Author Organization [facility] Address [address] [place] [address] Care Team Providers Care Air Analyst Name Role Phone Marsha Turner MD Primary Care Provider +1- [phone] Encounter Details Date Type Department Care Team (Late st Contact Info) Description 01/27/2007 Outpatient Historical [facility] Dermatology- 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
--- OUTSIDE RECORDS SUMMARY | 2024-10-13 03:15 | XMS_ITS | Encounter Summary ---
Author Organization [facility] Address [address] [place] [address] Care Team Providers Care Retail Associate Name Role Phone Marsha Turner MD Primary Care Provider +1- [phone] Encounter Details Date Type Department Care Team (Late st Contact Info) Description 12/09/2004 Outpatient Historical [facility] Urology- [address] Entr[address], 3[address] [place] [address] Thomas Mack MD NO ADDRESS ON FILE Malig emmett prostate (Primary Dx); DYSURIA; Slow urinary stream Social History Tobacco Use Types Packs/Day Years Used Date Smoking Tobacco: Never Assessed Sex and Gender Information Value Date Recorded Sex Assigned at Not on file Legal Sex Male 6:16 AM 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
--- OUTSIDE RECORDS SUMMARY | 2024-10-13 03:15 | XMS_ITS | Encounter Summary ---
Author Organization [facility] Address [address] [place] [address] Care Team Providers Care High Frequency Mill Operator Name Role Phone Marsha Turner MD Primary Care Provider +1- [phone] Encounter Details Date Type Department Care Team (Latest Contact Info) Description 11/30/2005 Outpatient Historical [facility] Pulmonology-[facility] [place] [address] [place] [address] David Teresa MD NO ADDRESS ON FILE Cough (Primary Dx); Other Dyspnea and Respiratory Abnormality Social History Tobacco Use Types Packs/Day Years Used Date Smoking Tobacco: Never Assessed Sex and Gender Information Value Date Recorded Sex Assigned at Not on file Legal Sex Male 6:16 AM MUD MIXER Gender Identity Not on file Sexual Orientation Not on file documented as of this encounter Plan of Treatment Not on file documented as of this encounter Visit Diagnoses Diagnosis Cough- Primary Other dyspnea and respiratory abnormality documented in this encounter Care Teams High Frequency Mill Operator Relationship Specialty Start Date End Date Marsha Turner MD [address] [place], [place] [address] PCP - General Internal Medicine 05/31/12 documented as of this encounter
--- OUTSIDE RECORDS SUMMARY | 2024-10-13 03:15 | XMS_ITS | Encounter Summary ---
Author Organization [facility] Address [address] [place] [address] Care Team Providers Care Licensed Psychologist Director Name Role Phone Marsha Turner MD Primary Care Provider +1- [phone] Encounter Details Date Type Department Care Team (Latest Contact Info) Description 06/25/2006 Outpatient [facility] Gastroenterology[address] [place] [address] Abilio Bagley MD [address] [place] [address] Abdominal Pain, Right Upper Quadrant (Primary Dx); Chronic Pancreatitis (CMS/HCC); Nonspecific Abnormal Results of Liver Function Study Social History Tobacco Use Types Packs/Day Years Used Date Smoking Tobacco: Never Assessed Sex and Gender Information Value Date Recorded Sex Assigned at Not on file Legal Sex Male 6: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
--- OUTSIDE RECORDS SUMMARY | 2024-10-13 03:15 | XMS_ITS | Encounter Summary ---
Author Organization [facility] Address [address] [place] [address] Care Team Providers Care Vacuum Worker Name Role Phone Marsha Turner MD Primary Care Provider +1- [phone] Encounter Details Date Type Department Care Team (Late st Contact Info) Description 09/23/2005 Outpatient Historical [facility] [place] [facility] [place] [place] [address] 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
--- OUTSIDE RECORDS SUMMARY | 2024-10-13 03:15 | XMS_ITS | Encounter Summary ---
Author Organization [facility] Address [address] [place] [address] Care Team Providers Care Certified Caregiver Name Role Phone Marsha Turner MD Primary Care Provider +1- [phone] Encounter Details Date Type Department Care Team (Late st Contact Info) Description 06/14/2006 Outpatient Historical [facility] Imaging Services-Louis Abraham Laura [address] [place] [address] Thomas Mack MD NO ADDRESS ON FILE Slow Urinary Stream (Primary Dx) Social History Tobacco Use Types Packs/Day Years Used Date Smoking Tobacco: Never Assessed Sex and Gender Information Value Date Recorded Sex Assigned at Not on file Legal Sex Male 6: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
--- OUTSIDE RECORDS SUMMARY | 2024-10-13 03:15 | XMS_ITS | Encounter Summary ---
Author Organization [facility] Address [address] [place] [address] Care Team Providers Care Injection Wax Molder Name Role Phone Marsha Turner MD Primary Care Provider +1- [phone] Encounter Details Date Type Department Care Team (Late st Contact Info) Description 03/05/2008 Outpatient Historical [facility] PreAdmission [place] [address] [place] [address] Dee Casillas MD [address] [address] Social History Tobacco Use Types Packs/Day Years Used Date Smoking Tobacco: Never Assessed Sex and Gender Information Value Date Recorded Sex Assigned at Not on file Legal Sex Male 6:16 AM GIS GEOGRAPHER Gender Identity Not on file Sexual Orientation Not on file documented as of this encounter Plan of Treatment Not on file documented as of this encounter Procedures Procedure Name Priority Date/Time Associated Diagnosis Comments XR CHEST PA OR AP 1 VW Routine 8 5:03 PM GIS GEOGRAPHER URINALYSIS W/REFLEX MICROSCOPIC Stat 03/05/2008 4:54 PM GIS GEOGRAPHER ABORH TYPING Stat 03/05/2008 4:20 PM GIS GEOGRAPHER CBC WITH DIFFERENTIAL Stat 03/05/2008 4:20 PM GIS GEOGRAPHER PROTIME-INR Stat 03/05/2008 4:20 PM GIS GEOGRAPHER BLOOD BANK ANTIBODY SCREEN Stat 03/05/2008 4:20 PM GIS GEOGRAPHER COMPREHENSIVE METABOLIC PANEL Stat 03/05/2008 4:20 PM GIS GEOGRAPHER documented in this encounter Results * XR CHEST PA OR AP (03/05/2008 5:03 PM GIS GEOGRAPHER) Anatomical Region Laterality Modality Chest Other 03/05/2008 5:03 PM GIS GEOGRAPHER Narrative 03/06/2008 3:36 PM GIS GEOGRAPHER Exam: Chest - PA Date/Time of Exam: [...] Melba Gamboa M.D. Electronically Signed By: Melba Gmaboa M.D. Date Signed: 03/06/08 Dee Casillas MD DIAGNOSTIC IMAGING ORDERABLES Fi nal Result * (ABNORMAL) URINALYSIS (03/05/2008 4:54 PM GIS GEOGRAPHER) LEUKOCYTE ESTERASE UA NEGATIVE NEGATIVE [facility] KETONES UA NEGATIVE NEGATIVE [facility] MICRO EXAM No No [facility] COLOR UA Yellow Straw [facility] PROTEIN UA NEGATIVE NEGATIVE [facility] BLOOD UA NEGATIVE NEGATIVE [facility] NITRITE UA NEGATIVE NEGATIVE [facility] UROBILINOGEN UA 1.0(A) 0.2 [facility] CLARITY UA Clear Clear [facility] SPECIFIC GRAVITY UA 1.010 <=1.005 [facility] GLUCOSE UA NEGATIVE NEGATIVE [facility] PH UA 7.0 5.0 - 9.0 [facility] BILIRUBIN UA NEGATIVE NEGATIVE [facility] Urine specimen (specimen) 03/05/2008 4:54 PM GIS GEOGRAPHER 03/05/2008 4:54 PM GIS GEOGRAPHER us Dee Casillas MD URINE ORDERABLES Final Result Performing Organization Address City/State/[facility] Co de Phone Number INTERFACE SYSTEM Refer to clinic/hospital department [facility] CLIA# [id number] [address] [place] [address] * (ABNORMAL) CBC WITH DIFFERENTIAL (03/05/2008 4:20 PM GIS GEOGRAPHER) HEMOGLOBIN 11.6(L) 14.0 - 18.0 g/dL [facility] LYMPHOCYTES 15.1(L) 24.0 - 44.0 % [facility] LYMPHOCYTE ABSOLUTE 1.0(L) 1.2 - 4.0 K/ul [facility] WBC 6.4 4.8 - 10.8 K/ul [facility] MCH 30.4 27.0 - 34.0 pg [facility] MPV 9.1 8.9 - 12.8 Fl [facility] BASOPHILS ABSOLUTE 0.0 0.0 - 0.2 K/ul [facility] BASOPHILS 0.5 0.0 - 1.0 % [facility] MCHC 33.8 30.0 - 35.0 g/dL [facility] HEMATOCRIT 34.3(L) 41.0 - 53.0 % [facility] RDW 13.9 11.0 - 14.5 % [facility] MONOCYTE ABSOLUTE 0.6 0.1 - 0.6 K/ul [facility] MONOCYTES 9.6 2.0 - 10.0 % [facility] RBC 3.82(L) 4.60 - 6.20 Mil/ul [facility] NEUTROPHIL ABSOLUTE 4.6 2.0 - 8.0 K/ul [facility] NEUTROPHILS 72.9 42.2 - 75.2 % [facility] MCV 89.8 84.0 - 103.0 Fl [facility] EOSINOPHILS 1.9 0.0 - 7.0 % [facility] PLATELETS 221 140 - 440 K/ul [facility] EOSINOPHIL ABSOLUTE 0.1 0.0 - 0.7 K/ul [facility] Blood specimen (specimen) 03/05/2008 4:20 PM GIS GEOGRAPHER 03/05/2008 4:30 PM GIS GEOGRAPHER us Dee Casillas MD HEMATOLOGY ORDERABLES Final Resu lt INTERFACE SYSTEM Refer to clinic/hospital department [facility]# [id number] [address] [place] [address] * PROTIME-INR (03/05/2008 4:20 PM GIS GEOGRAPHER) INR 1.0 [facility] Comment: Expected Values for INR: DVT/PE Goal INR 2.5; range 2.0 - 3.0 Valve Replacement Tissue Goal INR 2.5; range 2.0 - 3.0 Mechanical Goal INR 3.0; range 2.5 - 3.5 POST-ND Goal INR 2.5; range 2.0 - 3.0 or Goal 3.0; range 2.5 - 3.5 Atrial Fibrillation Goal INR 2.5; range 2.0 - 3.0 Ischemic Stroke Goal INR 2.5; range 2.0 - 3.0 For additional information see Guidelines for Anticoagulation available from the pharmacy Nichelle Mike [phone] PROTIME 14.0 12.8 - 15.8 Secs [facility] Comment:As of 2007 not e change in normal range. Blood specimen (specimen) 03/05/2008 4:20 PM GIS GEOGRAPHER 03/05/2008 4:30 PM GIS GEOGRAPHER us Dee Casillas MD HEMATOLOGY ORDERABLES Final Resu lt Performing Organization Address [facility] [address]/[facility] Phone Number INTERFACE SYSTEM Refer to clinic/hospital department [facility] CLIA# [id number] [address] [place] [address] * ANTIBODY SCREEN (03/05/2008 4:20 PM GIS GEOGRAPHER) ANTIBODY SCREEN Negative [facility] Blood specimen (specimen) 03/05/2008 4:20 PM GIS GEOGRAPHER 03/05/2008 4:30 PM GIS GEOGRAPHER Dee Casillas MD BLOOD BANK ORDERABLES Final Resu lt Performing Organization Address [facility] Phone Number INTERFACE SYSTEM Refer to clinic/hospital department [facility] CLIA# [id number] [address] [place] [address] * ABORH TYPING (03/05/2008 4:20 PM GIS GEOGRAPHER) ABO/RH TYPE A Positive [facility] Blood specimen (specimen) 03/05/2008 4:20 PM GIS GEOGRAPHER 03/05/2008 4:30 PM GIS GEOGRAPHER Dee Casillas MD BLOOD BANK ORDERABLES Final Resu lt Performing Organization Address [facility] [address]/[facility] Phone Number INTERFACE SYSTEM Refer to clinic/[facility] department [facility] CLIA# [id number] [address] [place] [address] * (ABNORMAL) COMPREHENSIVE METABOLIC PANEL (03/05/2008 4:20 PM GIS GEOGRAPHER) ALBUMIN 4.4 3.5 - 5.0 g/dL [facility] POTASSIUM 3.9 3.5 - 5.0 mEq/L [facility] GLOBULIN (CALC) 2.6 2.4 - 3.9 g/dL [facility] CREATININE 0.9 0.7 - 1.5 mg/dL [facility] CALCIUM 9.2 8.4 - 10.5 mg/dL [facility] OSMOLALITY, CALCULATED 289 275 - 295 mOsm/Kg [facility] ALT 17 4 - 36 IU/L [facility] GLUCOSE 118(H) 70 - 110 mg/dL [facility] CHLORIDE 108 95 - 110 mEq/L [facility] ALBUMIN/GLOBULIN RATIO 1.7 1.0 - 2.3 [facility] ALKALINE PHOSPHATASE 71 25 - 100 U/L [facility] SODIUM 141 136 - 145 mEq/L [facility] BILIRUBIN TOTAL 0.3 0.3 - 1.2 mg/dL [facility] TOTAL PROTEIN 7.0 6.3 - 8.2 g/dL [facility] BUN 9 9 - 20 mg/dL [facility] AST 16 8 - 33 U/L [facility] CO2 27 22 - 32 mmol/l [facility] ANION GAP 10 9 - 20 mEq/L [facility] Blood specimen (specimen) 03/05/2008 4:20 PM GIS GEOGRAPHER 03/05/2008 4:30 PM GIS GEOGRAPHER us Dee Casillas MD CHEMISTRY ORDERABLES Final Resul t INTERFACE SYSTEM Refer to clinic/hospital department [facility] CLIA# [id number] [facility] [place] [address] documented in this encounter Visit Diagnoses Not on filedocumented in this encounter Care Teams Injection Wax Molder Relationship Specialty Start Date End Date Marsha Turner MD [address] [place] [address] PCP - General Internal Medicine 05/31/12 documented as of this encounter
--- OUTSIDE RECORDS SUMMARY | 2024-10-13 03:15 | XMS_ITS | Encounter Summary ---
Author Organization [facility] Address [address] [place] [address] Care Team Providers Care Chemical Recovery Operator Name Role Phone Marsha Turner MD Primary Care Provider +1- [phone] Encounter Details Date Type Department Care Team (Late st Contact Info) Description 09/12/2004 Outpatient Historical [facility] [address] 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
--- OUTSIDE RECORDS SUMMARY | 2024-10-13 03:15 | XMS_ITS | Encounter Summary ---
Author Organization [facility] Address [address] [place] [address] Care Team Providers Care Water Safety Teacher Name Role Phone Marsha Turner MD Primary Care Provider +1- [phone] Encounter Details Date Type Department Care Team (Latest Contact Info) Description 03/11/[address] 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
--- OUTSIDE RECORDS SUMMARY | 2024-10-13 03:15 | XMS_ITS | Encounter Summary ---
Author Organization [facility] Address [address] [place] [address] Care Team Providers Care Journeyman Painter Name Role Phone Marsha Turner MD Primary Care Provider +1- [phone] Reason for Referral * Outpatient Services (Routine) - Closed Specialty Diagnoses / Procedures Referred By Contac t Referred To Contact Radiology Diagnoses H/O: stroke Dizziness History of atrial fibrillation Procedures ECHOCARDIOGRAM W/ CONTRAST AGENT ECHO COMPLETE W BUBBLE STUDY Hayes Harris MD Phone: tel: fax: [facility] [place] [address] [place] [address] Phone: tel: fax: Referral ID Status Reason Start Date Expiration Date V isits Requested Visits Authorized [id number] Closed F [facility] TO SCHEDULE (SGF) 07/31/2016 08/31/2017 1 1 Encounter Details Date Type Department Care Team (Latest Contact Info) Description 08/20/2016 Ancillary Orders [facility] Neurology- [place] 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 Gender Identity Not on file Sexual Orientation [...] INTERFACE SYSTEM - 08/20/2016 10:06 AM CDT [facility] Echocardiography-[address] [place] [address] Transthoracic Echocardiography Patient: Yves Study ECHO Kojo Brown ID: COMPLETE W Gender: Stephanie : 1945 Age: 70 Room: Study 08/20/2016 Pt Outpatient Date: Status: Study 07:40 AM CSN #: [id number] Time: Ordering:Hayes Harris Interpreting:Giovanni Benitez MD Fatback Trimmer: Gabby Simeon [facility] Indications and History: : H/O: stroke [...] septum: Agitated saline contrast study showed no ijirb-ij-hyst shunt. - Aortic valve: Trileaflet; mildly thickened [...] Doppler. Agitated saline contrast study showed no slbhc-vv-nhyi shunt. AORTIC VALVE: Trileaflet; mildly thickened leaflets. [...] (*) eaton values outside specified normal range. [facility] are accredited with the Intersocietal Accreditation Commission - Echocardiography. Prepared and Electronically Authenticated Giovanni Benitez MD Confirmed 08/20/2016 10:06 Procedure Note Giovanni Benitez MD - 08/20/2016 [facility]-[place] [address] [facility] [address] [place] [address] Transthoracic Echocardiography Patient: Yves Study ECHO Kojo Brown ID: COMPLETE W Gender: Stephanie : 1945 Age: 70 Room: Study 08/20/2016 Pt Outpatient Date: Status: Study 07:40 AM [facility] #: [id number] Time: Ordering:Hayes Harris Interpreting:Giovanni Benitez MD Fatback Trimmer: Gabby Simeon [facility] Indications and History: : H/O: stroke [...] septum: Agitated saline contrast study showed no moldj-ms-tift shunt. - Aortic valve: Trileaflet; mildly thickened [...] Doppler. Agitated saline contrast study showed no oypuf-ei-jwty shunt. AORTIC VALVE: Trileaflet; mildly thickened leaflets. [...] (*) eaton values outside specified normal range. [facility] are accredited with the [...] system documented in this encounter Care Teams Journeyman Painter Relationship Specialty Start Date End Date Marsha Turner MD [address] [place] [address] PCP - General Internal Medicine 05/31/12 documented as of this encounter
--- OUTSIDE RECORDS SUMMARY | 2024-10-13 03:15 | XMS_ITS | Encounter Summary ---
Author Organization [facility] Address [address] [place] [address] Care Team Providers Care Cigarette Vendor Name Role Phone Marsha Turner MD Primary Care Provider +1- [phone] Encounter Details Date Type Department Care Team (Latest Contact Info) Description 05/06/2005 Outpatient Historical [facility] Endoscopy [place] [address] [place] [address] Abilio Bagley MD [address] [place] [address] CHEST PAIN NOS (Primary Dx) Social History Tobacco Use Types Packs/Day Years Used Date Smoking Tobacco: Never Assessed Sex and Gender Information Value Date Recorded Sex Assigned at Not on file Legal Sex Male 6:16 AM 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
--- OUTSIDE RECORDS SUMMARY | 2024-10-13 03:15 | XMS_ITS | Encounter Summary ---
Author Organization [facility] Address [address] [place] [address] Care Team Providers Care Manager Machine Name Role Phone Marsha Turner MD Primary Care Provider +1- [phone] Encounter Details Date Type Department Care Team (Late st Contact Info) Description 08/26/2004 Outpatient Historical [facility] Urology- [address]tr[address], 3[address] [place] [address] Thomas Mack MD NO ADDRESS ON FILE CHRONIC PROSTATITIS (Primary Dx); FAMILY HX-PROSTATIC MALIGNANCY Social History Tobacco Use Types Packs/Day Years Used Date Smoking Tobacco: Never Assessed Sex and Gender Information Value Date Recorded Sex Assigned at Not on file Legal 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
--- OUTSIDE RECORDS SUMMARY | 2024-10-13 03:15 | XMS_ITS | Encounter Summary ---
Author Organization [facility] Address [address] [place] [address] Care Team Providers Care Grinder Set Up Operator Thread Name Role Phone Marsha Turner MD Primary Care Provider +1- [phone] Encounter Details Date Type Department Care Team (Late st Contact Info) Description 09/12/2004 Outpatient Historical [facility] Urology- [address] Entrance B, 3rd [place] [address] Thomas Mack MD NO ADDRESS ON FILE Elevated PSA (Primary Dx) Social History Tobacco Use Types Packs/Day Years Used Date Smoking Tobacco: Never Assessed Sex and Gender Information Value Date Recorded Sex Assigned at Not on file Legal 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
--- OUTSIDE RECORDS SUMMARY | 2024-10-13 03:15 | XMS_ITS | Encounter Summary ---
Author Organization [facility] Address [address] [place] [address] Care Team Providers Care Electric Motor Analyst Name Role Phone Marsha Turner MD Primary Care Provider +1- [phone] Encounter Details Date Type Department Care Team (Late st Contact Info) Description 05/27/2006 [facility] [address] [place] [address] Thomas Mack MD NO ADDRESS ON FILE Malig Thierno Prostate (Primary Dx); Slow Urinary Stream; Urinary Frequency Social History Tobacco Use Types Packs/Day Years Used Date Smoking Tobacco: Never Assessed Sex and Gender Information Value Date Recorded Sex Assigned at Not on file Legal Sex Male 6:16 AM DIRECTOR OF PHILANTHROPY Gender Identity Not on file Sexual Orientation Not on file documented as of this encounter Plan of Treatment Not on file documented as of this encounter Visit Diagnoses Diagnosis Malig thierno prostate- Primary Malignant neoplasm of prostate Slow urinary stream Slowing of urinary stream Urinary frequency documented in this encounter Care Teams Electric Motor Analyst Relationship Specialty Start Date End Date Marsha Turner MD [address] [place], [place] [address] PCP - General Internal Medicine 05/31/12 documented as of this encounter
--- OUTSIDE RECORDS SUMMARY | 2024-10-13 03:15 | XMS_ITS | Encounter Summary ---
Author Organization [facility] Address [address] [place] [address] Care Team Providers Care Cardio Tech Name Role Phone Marsha Turner MD Primary Care Provider +1- [phone] Encounter Details Date Type Department Care Team (Latest Contact Info) Description 05/14/2005 Outpatient Historical [facility] [address] [place] [address] Abilio Bagley MD [address] [place] [address] ESOPHAGEAL REFLUX (Primary Dx) Social History Tobacco Use Types Packs/Day Years Used Date Smoking Tobacco: Never Assessed Sex and Gender Information Value Date Recorded Sex Assigned at Not on file Legal Sex Male 6:16 AM PROP ATTENDANT Gender Identity Not on file Sexual Orientation Not on file documented as of this encounter Plan of Treatment Not on file documented as of this encounter Visit Diagnoses Diagnosis Esophageal reflux- Primary documented in this encounter Care Teams Cardio Tech Relationship Specialty Start Date End Date Marsha Turner MD [address] [place], [place] [address] PCP - General Internal Medicine 05/31/12 documented as of this encounter
--- OUTSIDE RECORDS SUMMARY | 2024-10-13 03:15 | XMS_ITS | Encounter Summary ---
Author Organization [facility] Address [address] Pagan: [place] [address] Care Team Providers Care Marine Electronics Repairer Name Role Phone Marsha Turner MD Primary Care Provider +1- [phone] Encounter Details Date Type Department Care Team (Late st Contact Info) Description 11/03/1990 Inpatient Historical Patrick Barajas MD 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
--- OUTSIDE RECORDS SUMMARY | 2024-10-13 03:15 | XMS_ITS | Encounter Summary ---
Author Organization [facility] Address [address] [place] [address] Care Team Providers Care Postal Mail Carrier Name Role Phone Marsha Turner MD Primary Care Provider +1- [phone] Encounter Details Date Type Department Care Team (Latest Contact Info) Description 05/06/2005 Outpatient [facility] Gastroenterology[address] [place] [address] Abilio Bagley MD [address] [place] [address] CHEST PAIN NOS (Primary Dx) Social History Tobacco Use Types Packs/Day Years Used Date Smoking Tobacco: Never Assessed Sex and Gender Information Value Date Recorded Sex Assigned at Not on file Legal Sex Male 6:16 AM E COMMERCE 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
--- OUTSIDE RECORDS SUMMARY | 2024-10-13 03:15 | XMS_ITS | Encounter Summary ---
Author Organization [facility] Address [address] 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
--- OUTSIDE RECORDS SUMMARY | 2024-10-13 03:15 | XMS_ITS | Encounter Summary ---
Author Organization [facility] Address [address] 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
--- OUTSIDE RECORDS SUMMARY | 2024-10-13 03:15 | XMS_ITS | Encounter Summary ---
Author Organization [facility] Address [address] [place] [address] Care Team Providers Care Bone Drier Operator Name Role Phone Marsha Turner MD Primary Care Provider +1- [phone] Encounter Details Date Type Department Care Team (Late st Contact Info) Description 03/05/2008 Outpatient Historical [facility] Dee Casillas MD [address] [address] Social History Tobacco Use Types Packs/Day Years Used Date Smoking Tobacco: Never Assessed Sex and Gender Information Value Date Recorded Sex Assigned at Not on file Legal Sex Male 6:16 AM STEAM SHOVELMAN Gender Identity Not on file Sexual Orientation Not on file documented as of this encounter Plan of Treatment Not on file documented as of this encounter Procedures Procedure Name Priority Date/Time Associated Diagnosis Comments POC GLUCOSE Routine 03/16/2008 1:37 PM STEAM SHOVELMAN POC GLUCOSE Routine 03/16/2008 9:28 AM STEAM SHOVELMAN documented in this encounter Results * (ABNORMAL) POC GLUCOSE (03/16/2008 1:37 PM STEAM SHOVELMAN) GLUCOSE POC 115(H) 60 - 100 mg/dL [facility] Comment:POC Glucose - waived testing: CLIA #[id number] Venous blood specimen (specimen) 03/16/2008 1:37 PM STEAM SHOVELMAN 03/17/2008 2:21 AM STEAM SHOVELMAN Dee Casillas MD POINT OF CARE TESTING Final Resu lt Performing Organization Address [facility] de Phone Number INTERFACE SYSTEM Refer to clinic/hospital department [facility] CLIA# [id number] [address] [place] [address] * (ABNORMAL) POC GLUCOSE (03/16/2008 9:28 AM STEAM SHOVELMAN) GLUCOSE POC 132(H) 60 - 100 mg/dL [facility] Comment:POC Glucose - waived testing: CLIA #[id number] Venous blood specimen (specimen) 03/16/2008 9:28 AM STEAM SHOVELMAN 03/17/2008 1:24 AM STEAM SHOVELMAN Dee Casillas MD POINT OF CARE TESTING Final Resu lt Performing Organization Address [facility] de Phone Number INTERFACE SYSTEM Refer to clinic/hospital department [facility] CLIA# [id number] [address] [place] [address] documented in this encounter Visit Diagnoses Not on filedocumented in this encounter Care Teams Bone Drier Operator Relationship Specialty Start Date End Date Marsha Turner MD [address] [place] [id number] PCP - General Internal Medicine 05/31/12 documented as of this encounter
--- OUTSIDE RECORDS SUMMARY | 2024-10-13 03:15 | XMS_ITS | Encounter Summary ---
Author Organization [facility] Address [address] [place] [address] Care Team Providers Care Soft Mud Molder Name Role Phone Marsha Turner MD Primary Care Provider +1- [phone] Encounter Details Date Type Department Care Team (Late st Contact Info) Description 11/05/2005 Outpatient Historical [facility] Urology [facility] [address] 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
--- OUTSIDE RECORDS SUMMARY | 2024-10-13 03:15 | XMS_ITS | Encounter Summary ---
Author Organization [facility] Address [address] [place] [address] Care Team Providers Care Sewing Machine Assembler Name Role Phone Marsha Turner MD Primary Care Provider +1- [phone] Encounter Details Date Type Department Care Team (Late st Contact Info) Description 09/13/2006 Outpatient Historical [facility] Urology [facility] [address] 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
--- OUTSIDE RECORDS SUMMARY | 2024-10-13 03:15 | XMS_ITS | Encounter Summary ---
Author Organization [facility] Address [address] [place] [address] Care Team Providers Care Respite Coordinator Name Role Phone Marsha Turner MD Primary Care Provider +1- [phone] Encounter Details Date Type Department Care Team (Latest Contact Info) Description 06/25/2006 Outpatient Historical [facility] Operating Room [address] [place] [address] Abilio Bagley MD [address] [place] [address] Abdominal Pain, Right Upper Quadrant (Primary Dx) Social History Tobacco Use Types Packs/Day Years Used Date Smoking Tobacco: Never Assessed Sex and Gender Information Value Date Recorded Sex Assigned at Not on file Legal Sex Male 6:16 AM HR DIRECTOR Gender Identity Not on file Sexual Orientation Not on file documented as of this encounter Plan of Treatment Not on file documented as of this encounter Visit Diagnoses Diagnosis Abdominal pain, right upper quadrant- Primary documented in this encounter Care Teams Respite Coordinator Relationship Specialty Start Date End Date Marsha Turner MD [address] [place], [place] [id number] PCP - General Internal Medicine 05/31/12 documented as of this encounter
--- OUTSIDE RECORDS SUMMARY | 2024-10-13 03:15 | XMS_ITS | Encounter Summary ---
Author Organization [facility] Address [address] [place] [address] Care Team Providers Care Seal Delivery Vehicle Team Technician Name Role Phone Masrha Turner MD Primary Care Provider +1- [phone] Encounter Details Date Type Department Care Team (Latest Contact Info) Description 09/28/2000 Outpatient Historical [facility] [address] [place] [address] Lakhwinder Mahmood MD Nonspecific abnormal results of liver function study (Primary Dx) Social History Tobacco Use Types Packs/Day Years Used Date Smoking Tobacco: Never Assessed Sex and Gender Information Value Date Recorded Sex Assigned at Not on file Legal Sex Male 6:16 AM SALSA DANCE INSTRUCTOR Gender Identity Not on file Sexual Orientation Not on file documented as of this encounter Plan of Treatment Not on file documented as of this encounter Visit Diagnoses Diagnosis Nonspecific abnormal results of liver function study- Primary documented in this encounter Care Teams Seal Delivery Vehicle Team Technician Relationship Specialty Start Date End Date Marsha Turner MD [address] [place], [place] [address] PCP - General Internal Medicine 05/31/12 documented as of this encounter
--- OUTSIDE RECORDS SUMMARY | 2024-10-13 03:15 | XMS_ITS | Encounter Summary ---
Author Organization [facility] Address [address] [place] [address] Care Team Providers Care Coke Crane Operator Name Role Phone Marsha Turner MD Primary Care Provider +1- [phone] Encounter Details Date Type Department Care Team (Late st Contact Info) Description 09/26/2004 Outpatient Historical [facility] Urology- [address]tr[address], 3rd [place] [address] Thomas Mack MD NO ADDRESS ON FILE Malig emmett prostate (Primary Dx) Social History Tobacco Use Types Packs/Day Years Used Date Smoking Tobacco: Never Assessed Sex and Gender Information Value Date Recorded Sex Assigned at Not on file Legal Sex Male 6:16 AM DEPOSIT REFUND CLERK Gender Identity Not on file Sexual Orientation Not on file documented as of this encounter Plan of Treatment Not on file documented as of this encounter Visit Diagnoses Diagnosis Malig emmett prostate- Primary Malignant neoplasm of prostate documented in this encounter Care Teams Coke Crane Operator Relationship Specialty Start Date End Date Marsha Turner MD [address] [place] [address] PCP - General Internal Medicine 05/31/12 documented as of this encounter
--- OUTSIDE RECORDS SUMMARY | 2024-10-13 03:15 | XMS_ITS | Encounter Summary ---
Author Organization [facility] Address [address] Pagan: [place] [address] Care Team Providers Care Identification And Records Commander Name Role Phone Marsha Turner MD Primary Care Provider +1- [phone] Encounter Details Date Type Department Care Team (Latest Contact Info) Description 01/20/1990 Emergency Social History Tobacco Use Types Packs/Day Years Used Date Smoking Tobacco: Never Assessed Sex and Gender Information Value Date Recorded Sex Assigned at Not on file Legal Sex Male 6:16 AM PROGRAM HOST Gender Identity Not on file Sexual Orientation Not on file documented as of this encounter Plan of Treatment Not on file documented as of this encounter Visit Diagnoses Not on filedocumented in this encounter Care Teams Identification And Records Commander Relationship Specialty Start Date End Date Marsha Turner MD [address] [place], [place] [address] PCP - General Internal Medicine 05/31/12 documented as of this encounter
--- OUTSIDE RECORDS SUMMARY | 2024-10-13 03:15 | XMS_ITS | Encounter Summary ---
Author Organization [facility] Address [address] [place] [address] Care Team Providers Care Salesperson Furniture Name Role Phone Marsha Turner MD Primary Care Provider +1- [phone] Encounter Details Date Type Department Care Team (Late st Contact Info) Description 08/27/2005 Outpatient Historical [facility] Urology [facility] [address] 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
--- OUTSIDE RECORDS SUMMARY | 2024-10-13 03:15 | XMS_ITS | Encounter Summary ---
Author Organization [facility] Address [address] Pagan: [place] [address] Care Team Providers Care Director Transportation Name Role Phone Marsha Turner MD Primary Care Provider +1- [phone] Encounter Details Date Type Department Care Team (Late st Contact Info) Description 09/29/1990 Inpatient Historical Edis Xiao MD [address] [place], [place] [address] Social History Tobacco Use Types Packs/Day Years Used Date Smoking Tobacco: Never Assessed Sex and Gender Information Value Date Recorded Sex Assigned at Not on file Legal Sex Male 6:16 AM VOICE DATA COMMUNICATIONS ENGINEER Gender Identity Not on file Sexual Orientation Not on file documented as of this encounter Plan of Treatment Not on file documented as of this encounter Visit Diagnoses Not on filedocumented in this encounter Care Teams Director Transportation Relationship Specialty Start Date End Date Marsha Turner MD [address] [place], [place] [id number] PCP - General Internal Medicine 05/31/12 documented as of this encounter
--- OUTSIDE RECORDS SUMMARY | 2024-10-13 03:15 | XMS_ITS | Encounter Summary ---
Author Organization [facility] Address [address] [place] [address] Care Team Providers Care Cashier Host/Hostess Name Role Phone Marsha Turner MD Primary Care Provider +1- [phone] Encounter Details Date Type Department Care Team (Late st Contact Info) Description 05/24/2004 Inpatient Historical [facility] IN BED Marj Hardy MD NO ADDRESS ON FILE ASTHMA UNSPECIFIED (Primary Dx) Social History Tobacco Use Types Packs/Day Years Used Date Smoking Tobacco: Never Assessed Sex and Gender Information Value Date Recorded Sex Assigned at Not on file Legal Sex Male 6:16 AM DANDY OPERATOR Gender Identity Not on file Sexual Orientation Not on file documented as of this encounter Plan of Treatment Not on file documented as of this encounter Procedures Procedure Name Priority Date/Time Associated Diagnosis Comments PSA MEDICARE SCREEN Routine 05/28/2004 8 :26 AM DANDY OPERATOR URINALYSIS MICROSCOPY ONLY Routine 05/27/2004 8:51 PM DANDY OPERATOR URINALYSIS W/REFLEX MICROSCOPIC Routine 05/27/2004 8:51 PM DANDY OPERATOR CBC WITH DIFFERENTIAL Routine 05/26/2004 5:07 AM DANDY OPERATOR TSH Routine 05/26/2004 5:07 AM DANDY OPERATOR LIPID PANEL Routine 05/26/2004 5:07 AM DANDY OPERATOR BASIC METABOLIC PANEL Routine 05/26/2004 5:07 AM DANDY OPERATOR URINALYSIS MICROSCOPY ONLY Routine 05/25/2004 2:02 PM DANDY OPERATOR URINALYSIS W/REFLEX MICROSCOPIC Routine 05/25/2004 2:02 PM DANDY OPERATOR PTT Routine 05/25/2004 5:41 AM DANDY OPERATOR CBC WITHOUT DIFFERENTIAL Routine 05/25/2004 5:41 AM DANDY OPERATOR CARDIAC ENZYMES Routine 05/25/2004 3:42 AM DANDY OPERATOR CARDIAC ENZYMES Routine 05/24/2004 9:06 PM DANDY OPERATOR URINALYSIS MICROSCOPY ONLY Routine 05/24/2004 5:22 PM DANDY OPERATOR URINALYSIS W/REFLEX MICROSCOPIC Routine 05/24/2004 5:22 PM DANDY OPERATOR CARDIAC ENZYMES Routine 05/24/2004 3:18 PM DANDY OPERATOR PTT Routine 05/24/2004 3:18 PM DANDY OPERATOR DRUG SCREEN, URINE Routine 05/24/2004 10 :52 AM DANDY OPERATOR D-DIMER Routine 05/24/2004 9:30 AM DANDY OPERATOR documented in this encounter Results * PSA MEDICARE SCREEN (05/28/2004 8:26 AM DANDY OPERATOR) PSA 2.8 0.0 - 4.0 ng/mL INTERFACE SYSTEM Comment:Results for patients receiving treatment must be evaluated individually by the physician. 05/28/2004 8:26 AM DANDY OPERATOR us Marj Hardy MD CHEMISTRY ORDERABLES COM Final Result INTERFACE SYSTEM Refer to clinic/hospital department * (ABNORMAL) URINALYSIS (05/27/2004 8:51 PM DANDY OPERATOR) COLOR UA Yellow Straw INTERFACE SYSTEM CLARITY [...] Yes(A) No INTERFACE SYSTEM 05/27/2004 8:51 PM DANDY OPERATOR Thomas Mack MD URINE ORDERABLES Final Result Performing Organization Address City/[facility] Co de Phone Number INTERFACE SYSTEM Refer to clinic/hospital department * URINALYSIS MICROSCOPY ONLY (05/27/2004 8:51 PM DANDY OPERATOR) WBC URINE None Seen 0 - 2 INTERFACE SYSTEM RBC UA None Seen 0 - 2 INTERFACE SYSTEM HYALINE CAST 0-2 0 - 2 INTERFA CE SYSTEM 05/27/2004 8:51 PM DANDY OPERATOR Thomas Mack MD URINE ORDERABLES Final Result Performing Organization Address [facility] Phone Number INTERFACE SYSTEM Refer to clinic/hospital department * (ABNORMAL) CBC WITH DIFFERENTIAL (05/26/2004 5:07 AM DANDY OPERATOR) WBC 3.7(L) 4.8 - 10.8 K/ul INTERFACE [...] 0.2 K/ul INTERFACE SYSTEM 05/26/2004 5:07 AM DANDY OPERATOR Marj Hardy MD HEMATOLOGY ORDERABLES Final Re sult Performing Organization Address [facility] de Phone Number INTERFACE SYSTEM Refer to clinic/hospital department * (ABNORMAL) TSH (05/26/2004 5:07 AM DANDY OPERATOR) TSH <0.03(L) 0.49 - 4.67 uIU/ml INTERFACE SYSTEM 05/26/2004 5:07 AM DANDY OPERATOR Marj Hardy MD CHEMISTRY ORDERABLES Final Res ult Performing Organization Address [facility] Co de Phone Number INTERFACE SYSTEM Refer to clinic/hospital department * (ABNORMAL) BASIC METABOLIC PANEL (05/26/2004 5:07 AM DANDY OPERATOR) GLUCOSE 167(H) 70 - 110 mg/dL INTERFACE [...] 10.5 mg/dL INTERFACE SYSTEM 05/26/2004 5:07 AM DANDY OPERATOR Result [facility] Marj Hardy MD CHEMISTRY ORDERABLES Final Res ult Performing Organization Address [facility] Phone Number INTERFACE SYSTEM Refer to clinic/hospital department * (ABNORMAL) LIPID PANEL (05/26/2004 5:07 AM DANDY OPERATOR) CHOLESTEROL 120 75 - 200 mg/dL INTERFACE SYSTEM TRIGLYCERIDE 66 0 - 200 mg/dL INTERFACE SYSTEM CALCULATED TOTAL CHOLESTEROL TO HDL RATIO 2.93(L) 3.43 - 4.97 INTERFACE SYSTEM HDL 41 40 - 60 mg/dL INTERFACE SYSTEM LDL CALCULATED 66 0 - 130 mg/dL INTERFACE SYSTEM 05/26/2004 5:07 AM DANDY OPERATOR Result [facility] Marj Hardy MD CHEMISTRY ORDERABLES Final Res ult Performing Organization Address [facility] Phone Number INTERFACE SYSTEM Refer to clinic/hospital department * (ABNORMAL) URINALYSIS (05/25/2004 2:02 PM DANDY OPERATOR) COLOR UA Yellow Straw INTERFACE SYSTEM CLARITY [...] Yes(A) No INTERFACE SYSTEM 05/25/2004 2:02 PM DANDY OPERATOR Result [facility] Marj Hardy MD URINE ORDERABLES Final Result Performing Organization Address [facility] Phone Number INTERFACE SYSTEM Refer to clinic/hospital department * (ABNORMAL) URINALYSIS MICROSCOPY ONLY (05/25/2004 2:02 PM DANDY OPERATOR) WBC URINE 0-2 0 - 2 INTERFACE SYSTEM RBC UA 3-5(A) 0 - 2 INTERFACE SYSTEM HYALINE CAST None Seen 0 - 2 INTERFA CE SYSTEM BACTERIA UA None Seen None Seen INTERFAC E SYSTEM 05/25/2004 2:02 PM DANDY OPERATOR Marj Hardy MD URINE ORDERABLES Final Result Performing Organization Address [facility] de Phone Number INTERFACE SYSTEM Refer to clinic/hospital department * (ABNORMAL) PTT (05/25/2004 5:41 AM DANDY OPERATOR) PTT 47.8(H) 24.3 - 37.5 Secs INTERFACE SYSTEM Comment:Therapeutic Range: 05/25/2004 5:41 AM DANDY OPERATOR Marj Hardy MD HEMATOLOGY ORDERABLES Final Re sult Performing Organization Address City/[facility] de Phone Number INTERFACE SYSTEM Refer to clinic/hospital department * (ABNORMAL) CBC WITHOUT DIFFERENTIAL (05/25/2004 5:41 AM DANDY OPERATOR) WBC 4.5(L) 4.8 - 10.8 K/ul INTERFACE [...] 0.2 K/ul INTERFACE SYSTEM 05/25/2004 5:41 AM DANDY OPERATOR Result Jennifer Hardy MD HEMATOLOGY ORDERABLES Final Re sult Performing Organization Address [facility] Co de Phone Number INTERFACE SYSTEM Refer to clinic/hospital department * CARDIAC ENZYMES (05/25/2004 3:42 AM DANDY OPERATOR) CKMB 0.7 0.0 - 5.5 ng/mL INTERFACE SYSTEM TROPONIN I 0.0 0.0 - 1.5 ng/mL INTERFACE SYSTEM Comment: Expected Range: Normal 0.0 - 1.5 ng/ml Borderline 1.6 - 4.4 ng/ml Positive > = 4.5 ng/ml 05/25/2004 3:42 AM DANDY OPERATOR Result Jennifer Hardy MD CHEMISTRY ORDERABLES Final Res ult Performing Organization Address [facility] Co de Phone Number INTERFACE SYSTEM Refer to clinic/hospital department * CARDIAC ENZYMES (05/24/2004 9:06 PM DANDY OPERATOR) CKMB <0.7 0.0 - 5.5 ng/mL INTERFACE SYSTEM TROPONIN I 0.0 0.0 - 1.5 ng/mL INTERFACE SYSTEM Comment: Expected Range: Normal 0.0 - 1.5 ng/ml Borderline 1.6 - 4.4 ng/ml Positive > = 4.5 ng/ml 05/24/2004 9:06 PM DANDY OPERATOR Result Jennifer Hardy MD CHEMISTRY ORDERABLES Final Res ult Performing Organization Address [facility] Phone Number INTERFACE SYSTEM Refer to clinic/hospital department * (ABNORMAL) URINALYSIS (05/24/2004 5:22 PM DANDY OPERATOR) COLOR UA Yellow Straw INTERFACE SYSTEM CLARITY [...] Yes(A) No INTERFACE SYSTEM 05/24/2004 5:22 PM DANDY OPERATOR Marj Hardy MD URINE ORDERABLES Final Result Performing Organization Address [facility] Phone Number INTERFACE SYSTEM Refer to clinic/hospital department * (ABNORMAL) URINALYSIS MICROSCOPY ONLY (05/24/2004 5:22 PM DANDY OPERATOR) WBC URINE 0-2 0 - 2 INTERFACE SYSTEM RBC UA >80(A) 0 - 2 INTERFACE SYSTEM HYALINE CAST None Seen 0 - 2 INTERFA CE SYSTEM BACTERIA UA None Seen None Seen INTERFAC E SYSTEM 05/24/2004 5:22 PM DANDY OPERATOR Marj Hardy MD URINE ORDERABLES Final Result Performing Organization Address [facility] Phone Number INTERFACE SYSTEM Refer to clinic/hospital department * CARDIAC ENZYMES (05/24/2004 3:18 PM DANDY OPERATOR) CKMB 0.7 0.0 - 5.5 ng/mL INTERFACE SYSTEM TROPONIN I 0.0 0.0 - 1.5 ng/mL INTERFACE SYSTEM Comment: Expected Range: Normal 0.0 - 1.5 ng/ml Borderline 1.6 - 4.4 ng/ml Positive > = 4.5 ng/ml 05/24/2004 3:18 PM DANDY OPERATOR Result [facility] Marj Hardy MD CHEMISTRY ORDERABLES Final Res ult Performing Organization Address [facility] Phone Number INTERFACE SYSTEM Refer to clinic/hospital department * (ABNORMAL) PTT (05/24/2004 3:18 PM DANDY OPERATOR) PTT 75.3(H) 24.3 - 37.5 Secs INTERFACE SYSTEM Comment:Therapeutic Range: 05/24/2004 3:18 PM DANDY OPERATOR Result [facility] Marj Hardy MD HEMATOLOGY ORDERABLES Final Re sult Performing Organization Address [facility] Phone Number INTERFACE SYSTEM Refer to clinic/hospital department * (ABNORMAL) DRUG SCREEN, URINE (05/24/2004 10:52 AM DANDY OPERATOR) OPIATE QUAL, URINE Drug Positive(A) Drug Negative [...] Negative INTERFACE SYSTEM 05/24/2004 10:5 2 AM DANDY OPERATOR Result Jennifer Hardy MD URINE ORDERABLES Final Result Performing Organization Address [facility] Phone Number INTERFACE SYSTEM Refer to clinic/hospital department * (ABNORMAL) D-DIMER (05/24/2004 9:30 AM DANDY OPERATOR) D-DIMER QUANT 2.0(H) 0.0 - 0.5 mcg/mL INTERFACE SYSTEM 05/24/2004 9:30 AM DANDY OPERATOR Result Jennifer Hardy MD HEMATOLOGY ORDERABLES Final Re sult Performing Organization Address [facility] de Phone Number INTERFACE SYSTEM Refer to clinic/hospital department documented in this encounter Visit Diagnoses Diagnosis Unspecified asthma(493.90)- Primary Unspecified asthma documented in this encounter Care Teams Cashier Host/Hostess Relationship Specialty Start Date End Date Marsha Turner MD [address] [place] [address] PCP - General Internal Medicine 05/31/12 documented as of this encounter
--- OUTSIDE RECORDS SUMMARY | 2024-10-13 03:15 | XMS_ITS | Encounter Summary ---
Author Organization [facility] Address [address] [place] [address] Care Team Providers Care Shaper Hand Name Role Phone Marsha Turner MD Primary Care Provider +1- [phone] Encounter Details Date Type Department Care Team (Late st Contact Info) Description 03/05/[address] [facility] DEFAULT DEPARTMENT Dee Casillas MD [address] [phone] Social History Tobacco Use Types Packs/Day Years Used Date Smoking Tobacco: Never Assessed Sex and Gender Information Value Date Recorded Sex Assigned at Not on file Legal Sex Male 6:16 AM CURER FOAM RUBBER Gender Identity Not on file Sexual Orientation Not on file documented as of this encounter Plan of Treatment Not on file documented as of this encounter Visit Diagnoses Not on filedocumented in this encounter Care Teams Shaper Hand Relationship Specialty Start Date End Date Marsha Turner MD [address] [place] [address] PCP - General Internal Medicine 05/31/12 documented as of this encounter
--- OUTSIDE RECORDS SUMMARY | 2024-10-13 03:15 | XMS_ITS | Encounter Summary ---
Author Organization [facility] Address [address] [place] [address] Care Team Providers Care Farmworker Diversified Crops Name Role Phone Marsha Turner MD Primary Care Provider +1- [phone] Encounter Details Date Type Department Care Team (Latest Contact Info) Description 06/18/2006 Outpatient Historical [facility] Endoscopy [address] [place] [phone] Abilio Bagley MD [address] [place] [address] Chronic Pancreatitis (CMS/HCC) (Primary Dx) Social History Tobacco Use Types Packs/Day Years Used Date Smoking Tobacco: Never Assessed Sex and Gender Information Value Date Recorded Sex Assigned at Not on file Legal Sex Male 6:16 AM LOOM MECHANIC Gender Identity Not on file Sexual Orientation Not on file documented as of this encounter Plan of Treatment Not on file documented as of this encounter Visit Diagnoses Diagnosis Chronic pancreatitis (CMS/HCC)- Primary Chronic pancreatitis documented in this encounter Care Teams Farmworker Diversified Crops Relationship Specialty Start Date End Date Marsha Turner MD [address] [place] [address] PCP - General Internal Medicine 05/31/12 documented as of this encounter
--- OUTSIDE RECORDS SUMMARY | 2024-10-13 03:15 | XMS_ITS | Encounter Summary ---
Author Organization [facility] Address [address] [place] [address] Care Team Providers Care Catalytic Converter Operator Name Role Phone Marsha Turner MD Primary Care Provider +1- [phone] Encounter Details Date Type Department Care Team (Latest Contact Info) Description 05/05/2005 Outpatient [facility] Gastroenterology[address] [place] [address] Abilio Bagley MD [address] [place] [address] CHEST PAIN NOS (Primary Dx); STOMACH FUNCTION DIS NEC; DYSPHAGIA Social History Tobacco Use Types Packs/Day Years Used Date Smoking Tobacco: Never Assessed Sex and Gender Information Value Date Recorded Sex Assigned at Not on file Legal Sex Male 6:16 AM CREDIT COMPLIANCE OFFICER Gender Identity Not on file Sexual Orientation Not on file documented as of this encounter Plan of Treatment Not on file documented as of this encounter Visit Diagnoses Diagnosis Chest pain, unspecified- Primary Dyspepsia and other specified disorders of function of stomach Dysphagia documented in this encounter Care Teams Catalytic Converter Operator Relationship Specialty Start Date End Date Marsha Turner MD [address] [place] [address] PCP - General Internal Medicine 05/31/12 documented as of this encounter
--- OUTSIDE RECORDS SUMMARY | 2024-10-13 03:15 | XMS_ITS | Encounter Summary ---
Author Organization [facility] Address [address] [place] [address] Care Team Providers Care Satellite Manager Name Role Phone Marsha Turner MD Primary Care Provider +1- [phone] Encounter Details Date Type Department Care Team (Latest Contact Info) Description 12/31/2003 Outpatient Historical [facility] Cardiac Concrete Bucket Unloader [address] [place] [address] Hosea Wilson MD [address] [facility] [address] [place] [phone] CORON ATHEROSCL [place] CORON VESSEL (Primary Dx) Social History Tobacco Use Types Packs/Day Years Used Date Smoking Tobacco: Never Assessed Sex and Gender Information Value Date Recorded Sex Assigned at Not on file Legal Sex Male 6:16 AM ROUTE SERVICE 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
--- OUTSIDE RECORDS SUMMARY | 2024-10-13 03:15 | XMS_ITS | Encounter Summary ---
Author Organization [facility] Address [address] [place] [address] Care Team Providers Care Perinatal Tech Name Role Phone Marsha Turner MD Primary Care Provider +1- [phone] Encounter Details Date Type Department Care Team (Late st Contact Info) Description 06/14/2006 Outpatient Historical [facility] Urology [facility] [address] [place] [address] Thomas Mack MD NO ADDRESS ON FILE Malig Thierno Prostate (Primary Dx); Slow Urinary Stream Social History Tobacco Use Types Packs/Day Years Used Date Smoking Tobacco: Never Assessed Sex and Gender Information Value Date Recorded Sex Assigned at Not on file Legal Sex Male 6:16 AM DIRECT MAIL CLERK Gender Identity Not on file Sexual Orientation Not on file documented as of this encounter Plan of Treatment Not on file documented as of this encounter Visit Diagnoses Diagnosis Malig thierno prostate- Primary Malignant neoplasm of prostate Slow urinary stream Slowing of urinary stream documented in this encounter Care Teams Perinatal Tech Relationship Specialty Start Date End Date Marsha Turner MD [address] [place], [place] [id number] PCP - General Internal Medicine 05/31/12 documented as of this encounter
--- OUTSIDE RECORDS SUMMARY | 2024-10-13 03:15 | XMS_ITS | Encounter Summary ---
Author Organization [facility] Address [address] [place] [address] Care Team Providers Care Tax Preparer Name Role Phone Marsha Turner MD Primary Care Provider +1- [phone] Encounter Details Date Type Department Care Team (Late st Contact Info) Description 02/26/2005 Outpatient Historical [facility] Urology- [address]tr[address], [address] [place] [phone] Thomas Mack MD NO ADDRESS ON FILE Malig emmett prostate (Primary Dx) Social History Tobacco Use Types Packs/Day Years Used Date Smoking Tobacco: Never Assessed Sex and Gender Information Value Date Recorded Sex Assigned at Not on file Legal Sex Male 6:16 AM RN REHAB Gender Identity Not on file Sexual Orientation Not on file documented as of this encounter Plan of Treatment Not on file documented as of this encounter Visit Diagnoses Diagnosis Malig emmett prostate- Primary Malignant neoplasm of prostate documented in this encounter Care Teams Tax Preparer Relationship Specialty Start Date End Date Marsha Turner MD [address] [place] [address] PCP - General Internal Medicine 05/31/12 documented as of this encounter
--- OUTSIDE RECORDS SUMMARY | 2024-10-13 03:15 | XMS_ITS | Encounter Summary ---
Author Organization [facility] Address [address] [place] [address] Care Team Providers Care Ropeman Name Role Phone Marsha Turner MD Primary Care Provider +1- [phone] Encounter Details Date Type Department Care Team (Latest Contact Info) Description 06/23/2005 Outpatient Historical [facility] Allergy and Asthma- [place] [address] [place] [address] Jalen Rutledge MD NO ADDRESS ON FILE Chronic Rhinitis (Primary Dx); Other Dyspnea and Respiratory Abnormality Social History Tobacco Use Types Packs/Day Years Used Date Smoking Tobacco: Never Assessed Sex and Gender Information Value Date Recorded Sex Assigned at Not on file Legal Sex Male 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
--- OUTSIDE RECORDS SUMMARY | 2024-10-13 03:15 | XMS_ITS | Encounter Summary ---
Author Organization [facility] Address [address] [place] [address] Care Team Providers Care Sustainability Communicator Name Role Phone Marsha Turner MD Primary Care Provider +1- [phone] Encounter Details Date Type Department Care Team (Late st Contact Info) Description 10/08/2004 Outpatient Historical [facility] [address] [place] [phone] Thomas Mack MD NO ADDRESS ON FILE MALIGN NEOPL PROSTATE (CMS/HCC) (Primary Dx) Social History Tobacco Use Types Packs/Day Years Used Date Smoking Tobacco: Never Assessed Sex and Gender Information Value Date Recorded Sex Assigned at Not on file Legal Sex Male 6:16 AM KNITTER HAND Gender Identity Not on file Sexual Orientation Not on file documented as of this encounter Plan of Treatment Not on file documented as of this encounter Visit Diagnoses Diagnosis Malignant neoplasm of prostate (CMS/HCC)- Primary Malignant neoplasm of prostate documented in this encounter Care Teams Sustainability Communicator Relationship Specialty Start Date End Date Marsha Turner MD [address] [place] [address] PCP - General Internal Medicine 05/31/12 documented as of this encounter
--- OUTSIDE RECORDS SUMMARY | 2024-10-13 03:15 | XMS_ITS | Encounter Summary ---
Author Organization [facility] Address [address] [place] [address] Care Team Providers Care Collections Attorney Name Role Phone Marsha Turner MD Primary Care Provider +1- [phone] Encounter Details Date Type Department Care Team (Latest Contact Info) Description 07/12/2006 Outpatient [facility] Gastroenterology[address] [place] [address] Abilio Bagley MD [address] [place] [address] Spasm Sphincter of Oddi (Primary Dx) Social History Tobacco Use Types Packs/Day Years Used Date Smoking Tobacco: Never Assessed Sex and Gender Information Value Date Recorded Sex Assigned at Not on file Legal Sex Male 6:16 AM ORDERING BOX OPERATOR Gender Identity Not on file Sexual Orientation Not on file documented as of this encounter Plan of Treatment Not on file documented as of this encounter Visit Diagnoses Diagnosis Spasm sphincter of Oddi- Primary Spasm of sphincter of Oddi documented in this encounter Care Teams Collections Attorney Relationship Specialty Start Date End Date Marsha Turner MD [address] [place] [address] PCP - General Internal Medicine 05/31/12 documented as of this encounter
--- OUTSIDE RECORDS SUMMARY | 2024-10-13 03:15 | XMS_ITS | Encounter Summary ---
Author Organization [facility] Address [address] [place] [address] Care Team Providers Care Buggy Driver Name Role Phone Marsha Turner MD Primary Care Provider +1- [phone] Encounter Details Date Type Department Care Team (Late st Contact Info) Description 10/16/2004 Outpatient Historical [facility] Urology- [address]tr[address], [address] [place] [phone] Thomas Mack MD NO ADDRESS ON FILE Malig emmett prostate (Primary Dx) Social History Tobacco Use Types Packs/Day Years Used Date Smoking Tobacco: Never Assessed Sex and Gender Information Value Date Recorded Sex Assigned at Not on file Legal Sex Male 6:16 AM BLOWER FEEDER DYED RAW STOCK Gender Identity Not on file Sexual Orientation Not on file documented as of this encounter Plan of Treatment Not on file documented as of this encounter Visit Diagnoses Diagnosis Malig emmett prostate- Primary Malignant neoplasm of prostate documented in this encounter Care Teams Buggy Driver Relationship Specialty Start Date End Date Marsha Turner MD [address] [place] [address] PCP - General Internal Medicine 05/31/12 documented as of this encounter
--- OUTSIDE RECORDS SUMMARY | 2024-10-13 03:15 | XMS_ITS | Encounter Summary ---
Author Organization [facility] Address [address] [place] [address] Care Team Providers Care Product Safety Officer Name Role Phone Marsha Turner MD Primary Care Provider +1- [phone] Encounter Details Date Type Department Care Team (Late st Contact Info) Description 06/14/2006 Outpatient Historical [facility] Imaging Services-Louis Abraham Laura [address] [place] [phone] Thomas Mack MD NO ADDRESS ON FILE Malignant Neoplasm of Prostate (CMS/HCC) (Primary Dx) Social History Tobacco Use Types Packs/Day Years Used Date Smoking Tobacco: Never Assessed Sex and Gender Information Value Date Recorded Sex Assigned at Not on file Legal Sex Male 6:16 AM 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
--- OUTSIDE RECORDS SUMMARY | 2024-10-13 03:15 | XMS_ITS | Encounter Summary ---
Author Organization [facility] Address [address] [place] [address] Care Team Providers Care Tax Professional Name Role Phone Marsha Turner MD Primary Care Provider +1- [phone] Encounter Details Date Type Department Care Team (Late st Contact Info) Description 03/05/2008 Outpatient [facility] [address] [facility] [address] [place] [address] Aaron Ayala MD [address] [place] [address] Malig Thierno Skin Face NEC Social History Tobacco Use Types Packs/Day Years Used Date Smoking Tobacco: Never Assessed Sex and Gender Information Value Date Recorded Sex Assigned at Not on file Legal Sex Male 6:16 AM VALVE STEAMER Gender Identity Not on file Sexual Orientation Not on file documented as of this encounter Progress Notes * Elenita Lora - 03/07/2008 8:42 AM CSTQuick Note: Pt's notified of results, adq tx. Recheck 4 months. E STEAMER documented in this encounter Plan of Treatment Not on file documented as of this encounter Procedures Procedure Name Priority Date/Time Associated Diagnosis Comments PATHOLOGY Routine 03/05/2008 1:19 PM VALVE STEAMER documented in this encounter Results * PATHOLOGY (03/05/2008 1:19 PM VALVE STEAMER) PATHOLOGY/CYT OLOGY REPORT [facility] Anatomic Pathology Dept [facility] [address] Patient: LOGAN MARINELLI Accn No: [id number] Collected: 03/05/2008 1:19:00 PM DERMATOPATHOLOGY FINAL REPORT [...] in cassette A1. 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 There are some keratinocytes with atypical nuclear features, and there are scattered mitotic figures. 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
--- OUTSIDE RECORDS SUMMARY | 2024-10-13 03:15 | XMS_ITS | Encounter Summary ---
Author Organization [facility] Address [address] [place] [address] Care Team Providers Care Paper Cup Handle Machine Operator Name Role Phone Marsha Turner MD Primary Care Provider +1- [phone] Encounter Details Date Type Department Care Team (Latest Contact Info) Description 06/14/2006 Outpatient [facility] Gastroenterology[address] [place] [address] Abilio Bagley MD [address] [place] [address] Acute Pancreatitis (Primary Dx) Social History Tobacco Use Types Packs/Day Years Used Date Smoking Tobacco: Never Assessed Sex and Gender Information Value Date Recorded Sex Assigned at Not on file Legal Sex Male 6:16 AM BURNISHING MACHINE 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
--- OUTSIDE RECORDS SUMMARY | 2024-10-13 03:15 | XMS_ITS | Encounter Summary ---
Author Organization [facility] Address [address] [place] [address] Care Team Providers Care Orthodontist Name Role Phone Marsha Turner MD Primary Care Provider +1- [phone] Encounter Details Date Type Department Care Team (Late st Contact Info) Description 09/23/2005 Outpatient Historical [facility] Jarad Laura [address] [place] [address] Thomas Mack MD NO ADDRESS ON FILE Renal Colic (Primary Dx) Social History Tobacco Use Types Packs/Day Years Used Date Smoking Tobacco: Never Assessed Sex and Gender Information Value Date Recorded Sex Assigned at Not on file Legal Sex Male 6:16 AM HEALTH SCIENCES PROGRAM COORDINATOR Gender Identity Not on file Sexual Orientation Not on file documented as of this encounter Plan of Treatment Not on file documented as of this encounter Visit Diagnoses Diagnosis Renal colic- Primary documented in this encounter Care Teams Orthodontist Relationship Specialty Start Date End Date Marsha Turner MD [address] [place], [place] [address] PCP - General Internal Medicine 05/31/12 documented as of this encounter
--- OUTSIDE RECORDS SUMMARY | 2024-10-13 03:15 | XMS_ITS | Encounter Summary ---
Author Organization [facility] Address [address] [place] [address] Care Team Providers Care Order Entry Clerk Name Role Phone Marsha Turner MD Primary Care Provider +1- [phone] Encounter Details Date Type Department Care Team (Latest Contact Info) Description 10/05/2000 Outpatient Historical [facility] Medicine [address] [place] [address] Lakhwinder Mahmood MD Nonspecific abnormal finding in stool contents (Primary Dx) Social History Tobacco Use Types Packs/Day Years Used Date Smoking Tobacco: Never Assessed Sex and Gender Information Value Date Recorded Sex Assigned at Not on file Legal Sex Male 6:16 AM STAND GRINDER Gender Identity Not on file Sexual Orientation Not on file documented as of this encounter Plan of Treatment Not on file documented as of this encounter Visit Diagnoses Diagnosis Nonspecific abnormal finding in stool contents- Primary documented in this encounter Care Teams Order Entry Clerk Relationship Specialty Start Date End Date Marsha Turner MD [address] [place] [address] PCP - General Internal Medicine 05/31/12 documented as of this encounter
== END 2024-10-12 03:08 | disposition home or self-care (01) ==
PROVIDERS: Emergency Provider Emergency Medicine; PCP Internal Medicine
DX: S09.90XA Unspecified injury of head, initial encounter (principal); W19.XXXA Unspecified fall, initial encounter; Z79.01 Long term (current) use of anticoagulants; J44.9 Chronic obstructive pulmonary disease, unspecified; E78.5 Hyperlipidemia, unspecified; I25.10 Atherosclerotic heart disease of native coronary artery without angina pectoris; Z86.73 Personal history of transient ischemic attack (TIA), and cerebral infarction without residual deficits; I11.0 Hypertensive heart disease with heart failure; I50.9 Heart failure, unspecified; Z85.828 Personal history of other malignant neoplasm of skin
CPT/HCPCS: 36415; 70450; 73502; 73562; 80053; 83605; 83880; 84484; 85025; 85610; 85730; 87040; 93005; 99285

== ENCOUNTER 2024-10-19 10:30 | Oncology outpatient (recurring) (ONCR) | payer MEDICARE, OTHER, SELFPAY ==
[2024-10-18 15:03] LABS: Hematocrit 36.3 % (37-53); Hemoglobin 11.70 g/dL (11.27-16.99); Mean Corpuscular HGB Conc 32.2 g/dL (30-55); Mean Corpuscular Hemoglobin 31.0 pg (27-33); Mean Corpuscular Volume 96.0 fl (82-101); Nucleated Red Blood Cells % 0 %; Platelet Count 184 10^3/cmm (157-399); Red Blood Count 3.78 10^6/uL (3.85-5.65); White Blood Count 7.11 10^3/uL (3.29-11.43)
[2024-10-18 15:29] LABS: Alanine Aminotransferase 12 U/L (0-41); Albumin Level 3.7 g/dL (3.5-5.2); Alkaline Phosphatase 66 U/L (40-130); Anion Gap 16.2 (5-19); Aspartate Amino Transferase 16 U/L (0-40); Blood Urea Nitrogen 11 mg/dL (8-23); Calcium 8.8 mg/dL (8.5-10.5); Carbon Dioxide 26 mmol/L (22-29); Chloride 102 mmol/L (98-107); Globulin 2.7 g/dL (1.3-4.6); Glucose 160 mg/dL (65-115); Osmolality Calculated 293 mOsm/kg (285-295); Potassium 4.2 mmol/L (3.5-5.1); Sodium 140 mmol/L (136-145); Thyroid Stimulating Hormone 15.49 uIU/mL (0.27-4.20); Total Protein 6.4 g/dL (6.6-8.7)
[2024-10-18 16:00] VITALS: BP 128/76; PULSE 62; RESP 18; TEMP 36.7; O2SAT 97
[2024-10-19] MEDS: ondansetron 2 mg/ML SDV 2 mL 8 MG IVP (11:55)
[2024-10-19] MEDS: dexamethasone 4 mg/mL INJ 5 mL 12 MG IV (11:58)
[2024-10-19] MEDS: cemiplimab-rwlc 350 MG in sodium chloride 0.9% 250 ML 500 MG IV (12:33)
[2024-10-19 13:27] VITALS: BP 134/73; PULSE 65; TEMP 36.3
== END 2024-10-19 23:59 | disposition home or self-care (01) ==
PROVIDERS: PCP Internal Medicine; Visit Provider Nurse Practitioner
DX: Z51.12 Encounter for antineoplastic immunotherapy; C44.42 Squamous cell carcinoma of skin of scalp and neck; M06.9 Rheumatoid arthritis, unspecified; R11.0 Nausea; Z92.3 Personal history of irradiation; Z79.52 Long term (current) use of systemic steroids; Z79.899 Other long term (current) drug therapy; Z53.9 Procedure and treatment not carried out, unspecified reason
CPT/HCPCS: 80053; 84443; 85025; 96360; 96361; 96375; 96413; 99214; A4222; J1100; J2405; J3490; J7030; J7050; J9119; J9999

== ENCOUNTER 2024-10-22 08:10 | Emergency (ER) | payer MEDICARE, OTHER, SELFPAY ==
--- OUTSIDE RECORDS SUMMARY | 2024-10-22 08:16 | XMS_ITS | Encounter Summary ---
Author Organization [facility] Address [address] [place] [address] Care Team Providers Care Sponge Hooker Name Role Phone Marsha Turner MD Primary Care Provider +1- [phone] Encounter Details Date Type Department Care Team (Late st Contact Info) Description 01/27/2007 Outpatient Historical [facility] Dermatology- [address] [place] [phone] Aaron Ayala MD [address] [place] [address] Unspecified Seborrheic Dermatitis (Primary Dx); Actinic Keratosis Social History Tobacco Use Types Packs/Day Years Used Date Smoking Tobacco: Never Assessed Sex and Gender Information Value Date Recorded Sex Assigned at Not on file Legal Sex Male 6:16 AM BAD CREDIT COLLECTOR Gender Identity Not on file Sexual Orientation Not on file documented as of this encounter Plan of Treatment Not on file documented as of this encounter Visit Diagnoses Diagnosis Seborrheic dermatitis, unspecified- Primary Actinic keratosis documented in this encounter Care Teams Sponge Hooker Relationship Specialty Start Date End Date Marsha Turner MD [address] [place], [place] [id number] PCP - General Internal Medicine 05/31/12 documented as of this encounter
--- OUTSIDE RECORDS SUMMARY | 2024-10-22 08:16 | XMS_ITS | Encounter Summary ---
Author Organization [facility] Address [address] [place] [address] Care Team Providers Care Inspector Balance Truing Name Role Phone Marsha Turner MD Primary Care Provider +1- [phone] Encounter Details Date Type Department Care Team (Late st Contact Info) Description 11/30/2007 Outpatient Historical [facility] Pain Management Procedures [address] [place] [address] Dee Casillas MD [address] [address] Kamar Leach MD NO ADDRESS [...] on file Legal Sex Male 6:16 AM FRENCH CORD BINDER Gender Identity Not on file Sexual Orientation [...] By: Florentino Lovell M.D. Date Signed: 12/08/07 [facility] Procedure Note Florentino Lovell W - 12/08/2007 Views of the lumbar spine with flexion and extension were obtained. Thereis a posterior fusion L4, L5 and S1. Hardware is intact. The neutral, flexion and extension views showthat alignment is within normal limits. Mild to moderate degenerative disc disease is also noted [id number]. - Dictated By: Florentino Lovell M.D. Electronically [...] agent documented in this encounter Care Teams Inspector Balance Truing Relationship Specialty Start Date End Date Marsha Turner MD [address] [place] [address] PCP - General Internal Medicine 05/31/12 documented as of this encounter
--- OUTSIDE RECORDS SUMMARY | 2024-10-22 08:16 | XMS_ITS | Encounter Summary ---
Author Organization [facility] Address [address] [place] [address] Care Team Providers Care Customer Quality Specialist Name Role Phone Marsha Turner MD Primary Care Provider +1- [phone] Encounter Details Date Type Department Care Team (Late st Contact Info) Description 08/30/2007 Outpatient Historical [facility] [address] [place] [address] Thomas Mack MD NO ADDRESS ON FILE Malignant Neoplasm of Prostate (CMS/HCC) Social History Tobacco Use Types Packs/Day Years Used Date Smoking Tobacco: Never Assessed Sex and Gender Information Value Date Recorded Sex Assigned at Not on file Legal Sex Male 6:16 AM MAT MACHINE OPERATOR Gender Identity Not on file Sexual Orientation Not on file documented as of this encounter Plan of Treatment Not on file documented as of this encounter Procedures Procedure Name Priority Date/Time Associated Diagnosis Comments PSA MEDICARE DIAGNOSTIC Routine 08/30/2007 1:25 PM CDT documented in this encounter Results * PSA MEDICARE DIAGNOSTIC (08/30/2007 1:25 PM CDT) PSA 1.0 0.0 - 4.0 ng/mL [facility] Blood specimen (specimen) 08/30/2007 1:25 PM CDT 08/30/2007 3:26 PM CDT us Thomas Mack MD CHEMISTRY ORDERABLES F inal Result [facility] CLIA# [id number] [address] [place] [address] documented in this encounter Visit Diagnoses Diagnosis Malignant neoplasm of prostate (CMS/HCC) Malignant neoplasm of prostate documented in this encounter Care Teams Customer Quality Specialist Relationship Specialty Start Date End Date Marsha Turner MD [address] [place] [address] PCP - General Internal Medicine 05/31/12 documented as of this encounter
--- OUTSIDE RECORDS SUMMARY | 2024-10-22 08:16 | XMS_ITS | Encounter Summary ---
Author Organization [facility] Address [address] [place] [address] Care Team Providers Care Core Oven Tender Name Role Phone Marsha Turner MD Primary Care Provider +1- [phone] Encounter Details Date Type Department Care Team (Late st Contact Info) Description 10/14/2007 Outpatient Historical [facility] Thomas Mack MD NO ADDRESS ON FILE Social History Tobacco Use Types Packs/Day Years Used Date Smoking Tobacco: Never Assessed Sex and Gender Information Value Date Recorded Sex Assigned at Not on file Legal Sex Male 6:16 AM DIESEL POWER MECHANIC Gender Identity Not on file Sexual Orientation Not on file documented as of this encounter Plan of Treatment Not on file documented as of this encounter Visit Diagnoses Not on filedocumented in this encounter Care Teams Core Oven Tender Relationship Specialty Start Date End Date Marsha Turner MD [address] [place], [place] [address] PCP - General Internal Medicine 05/31/12 documented as of this encounter
--- OUTSIDE RECORDS SUMMARY | 2024-10-22 08:16 | XMS_ITS | Encounter Summary ---
Author Organization [facility] Address [address] [place] [address] Care Team Providers Care Purse Seining Hand Name Role Phone Marsha Turner MD Primary Care Provider +1- [phone] Encounter Details Date Type Department Care Team (Late st Contact Info) Description 11/05/2006 Outpatient Historical [facility] Operating Room [address] [place] [address] Thomas Mack MD NO ADDRESS ON FILE Social History Tobacco Use Types Packs/Day Years Used Date Smoking Tobacco: Never Assessed Sex and Gender Information Value Date Recorded Sex Assigned at Not on file Legal Sex Male 6:16 AM LANDSCAPE MANAGER Gender Identity Not on file Sexual Orientation Not on file documented as of this encounter Plan of Treatment Not on file documented as of this encounter Visit Diagnoses Not on filedocumented in this encounter Care Teams Purse Seining Hand Relationship Specialty Start Date End Date Marsha Turner MD [address] [place], [place] [address] PCP - General Internal Medicine 05/31/12 documented as of this encounter
--- OUTSIDE RECORDS SUMMARY | 2024-10-22 08:16 | XMS_ITS | Encounter Summary ---
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
--- OUTSIDE RECORDS SUMMARY | 2024-10-22 08:16 | XMS_ITS | Encounter Summary ---
Author Organization [facility] Address [address] [place] [address] Care Team Providers Care Security Attendant Name Role Phone Marsha Turner MD Primary Care Provider +1- [phone] Encounter Details Date Type Department Care Team (Late st Contact Info) Description 12/08/2007 Outpatient Historical [facility] DEFAULT DEPARTMENT Dee Casillas MD [address] [phone] Social History Tobacco Use Types Packs/Day Years Used Date Smoking Tobacco: Never Assessed Sex and Gender Information Value Date Recorded Sex Assigned at Not on file Legal Sex Male 6: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
--- OUTSIDE RECORDS SUMMARY | 2024-10-22 08:16 | XMS_ITS | Encounter Summary ---
Author Organization [facility] Address [address] [place] [address] Care Team Providers Care Warehouse Stock Clerk Name Role Phone Marsha Turner MD Primary Care Provider +1- [phone] Encounter Details Date Type Department Care Team (Late st Contact Info) Description 10/17/2007 Outpatient Historical [facility] PreAdmission Sheldon E Ross [address] [place] [address] Thomas Mack MD NO ADDRESS ON FILE Social History Tobacco Use Types Packs/Day Years Used Date Smoking Tobacco: Never Assessed Sex and Gender Information Value Date Recorded Sex Assigned at Not on file Legal Sex Male 6:16 AM WORKERS 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 Gender Identity Not on file Sexual Orientation Not on file documented as of this encounter Miscellaneous Notes * Scanned Form - Sgf Scanning, Test - 03/31/2010 7:35 AM WORKERS 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 ASSISTANT documented in this encounter Plan of Treatment [...] 6:43 PM CDT) COLOR UA Yellow Straw [facility] PROTEIN UA NEGATIVE NEGATIVE [facility] BLOOD UA NEGATIVE NEGATIVE [facility] NITRITE UA NEGATIVE NEGATIVE [facility] UROBILINOGEN UA 0.2 0.2 [facility] CLARITY UA Clear Clear [facility] SPECIFIC GRAVITY UA 1.025 <=1.005 [facility] GLUCOSE UA NEGATIVE NEGATIVE [facility] PH UA 5.5 5.0 - 9.0 [facility] BILIRUBIN UA NEGATIVE NEGATIVE [facility] LEUKOCYTE ESTERASE UA NEGATIVE NEGATIVE [facility] KETONES UA NEGATIVE NEGATIVE [facility] MICRO EXAM No No [facility] Urine specimen (specimen) 10/17/2007 6:43 PM CDT 10/17/2007 6:43 PM CDT Thomas Mack MD URINE ORDERABLES Final Result Performing Organization Address [facility] de Phone Number [facility] CLIA# [id number] [address] [place] [address] * PSA MEDICARE SCREEN (10/17/2007 6:00 PM CDT) PSA 0.8 0.0 - 4.0 ng/mL [facility] Blood specimen (specimen) 10/17/2007 6:00 PM CDT 10/17/2007 6:05 PM CDT Thomas Mack MD CHEMISTRY ORDERABLES C OM Final Result Performing Organization Address [facility] de Phone Number [facility] CLIA# [id number] [address] [place] [address] * (ABNORMAL) CBC WITH DIFFERENTIAL (10/17/2007 6:00 PM CDT) MONOCYTES 8.9 2.0 - 10.0 % [facility] RDW 13.8 11.0 - 14.5 % [facility] MONOCYTE ABSOLUTE 0.5 0.1 - 0.6 K/ul [facility] WBC 5.3 4.8 - 10.8 K/ul [facility] NEUTROPHILS 72.9 42.2 - 75.2 % [facility] MCH 29.6 27.0 - 34.0 pg [facility] NEUTROPHIL ABSOLUTE 3.9 2.0 - 8.0 K/ul [facility] HEMATOCRIT 38.6(L) 41.0 - 53.0 % [facility] PLATELETS 190 140 - 440 K/ul [facility] EOSINOPHIL ABSOLUTE 0.1 0.0 - 0.7 K/ul [facility] EOSINOPHILS 1.5 0.0 - 7.0 % [facility] RBC 4.29(L) 4.60 - 6.20 Mil/ul [facility] MCHC 32.9 30.0 - 35.0 g/dL [facility] LYMPHOCYTE ABSOLUTE 0.8(L) 1.2 - 4.0 K/ul [facility] LYMPHOCYTES 15.8(L) 24.0 - 44.0 % [facility] MCV 90.0 84.0 - 103.0 Fl [facility] BASOPHILS 0.9 0.0 - 1.0 % [facility] MPV 9.6 8.9 - 12.8 Fl [facility] BASOPHILS ABSOLUTE 0.1 0.0 - 0.2 K/ul [facility] HEMOGLOBIN 12.7(L) 14.0 - 18.0 g/dL [facility] Blood specimen (specimen) 10/17/2007 6:00 PM CDT 10/17/2007 6:05 PM CDT Thomas Mack MD HEMATOLOGY ORDERABLES Final Result Performing Organization Address [facility] de Phone Number [facility] CLIA# [id number] [address] [place] [address] * ANTIBODY SCREEN (10/17/2007 6:00 PM CDT) [facility] Signature ANTIBODY SCREEN Negative [facility] Blood specimen (specimen) 10/17/2007 6:00 PM CDT 10/17/2007 6:05 PM CDT Thomas Mack MD BLOOD BANK ORDERABLES Final Result Performing Organization Address [facility] de Phone Number [facility] CLIA# [id number] [address] [place] [address] * ABORH TYPING (10/17/2007 6:00 PM CDT) ABO/RH TYPE A Positive [facility] Blood specimen (specimen) 10/17/2007 6:00 PM CDT 10/17/2007 6:05 PM CDT Thomas Mack MD BLOOD BANK ORDERABLES Final Result Performing Organization Address [facility] de Phone Number [facility] CLIA# [id number] [address] [place] [address] * PTT (10/17/2007 6:00 PM CDT) PTT 31.3 22.5 - 36.5 Secs [facility] Comment: Therapeutic Range: Hi-level PE/DVT [...] HEMATOLOGY ORDERABLES Final Result Performing Organization Address [facility] de Phone Number [facility] CLIA# [id number] [address] [place] [address] * PROTIME-INR (10/17/2007 6:00 PM CDT) PROTIME 13.6 12.8 - 15.8 Secs [facility] Comment:As of 2007 not e change in normal range. INR 0.9 [facility] Comment: Expected Values for INR: DVT/PE Goal INR 2.5; range 2.0 - 3.0 Valve Replacement Tissue Goal INR 2.5; range 2.0 - 3.0 Mechanical Goal INR 3.0; range 2.5 - 3.5 POST-MA Goal INR 2.5; range 2.0 - 3.0 or Goal 3.0; range 2.5 - 3.5 Atrial Fibrillation Goal INR 2.5; range 2.0 - 3.0 Ischemic Stroke Goal INR 2.5; range 2.0 - 3.0 For additional information see Guidelines for Anticoagulation available from the pharmacy Nichelle Mike [phone] Blood specimen (specimen) 10/17/2007 6:00 PM CDT 10/17/2007 6:05 PM CDT us Thomas Mack MD HEMATOLOGY ORDERABLES Final Result [facility] CLIA# [id number] [address] [place] [address] * COMPREHENSIVE METABOLIC PANEL (10/17/2007 6:00 PM CDT) CREATININE 1.0 0.7 - 1.5 mg/dL [facility] ALT 32 4 - 36 IU/L [facility] CALCIUM 10.0 8.4 - 10.5 mg/dL [facility] OSMOLALITY, CALCULATED 287 275 - 295 mOsm/Kg [facility] GLUCOSE 108 70 - 110 mg/dL [facility] ALKALINE PHOSPHATASE 67 25 - 100 U/L [facility] CHLORIDE 108 95 - 110 mEq/L [facility] ALBUMIN/GLOBULIN RATIO 1.5 1.0 - 2.3 [facility] TOTAL PROTEIN 7.5 6.3 - 8.2 g/dL [facility] SODIUM 139 136 - 145 mEq/L [facility] BILIRUBIN TOTAL 0.4 0.3 - 1.2 mg/dL [facility] BUN 16 9 - 20 mg/dL [facility] CO2 26 22 - 32 mmol/l [facility] ANION GAP 9 9 - 20 mEq/L [facility] AST 27 8 - 33 U/L [facility] POTASSIUM 3.7 3.5 - 5.0 mEq/L [facility] GLOBULIN (CALC) 3.0 2.4 - 3.9 g/dL [facility] ALBUMIN 4.5 3.5 - 5.0 g/dL [facility] Blood specimen (specimen) 10/17/2007 6:00 PM CDT 10/17/2007 6:05 PM CDT us Thomas Mack MD CHEMISTRY ORDERABLES F inal Result [facility] CLIA# [id number] [address] [place] [address] documented in this encounter Visit Diagnoses Not on filedocumented in this encounter Care Teams Warehouse Stock Clerk Relationship Specialty Start Date End Date Marsha Turner MD [address] [place], [place] [address] PCP - General Internal Medicine 05/31/12 documented as of this encounter
--- OUTSIDE RECORDS SUMMARY | 2024-10-22 08:16 | XMS_ITS | Encounter Summary ---
Author Organization [facility] Address [address] [place] [address] Care Team Providers Care Shop Superintendent Name Role Phone Marsha Turner MD Primary Care Provider +1- [phone] Encounter Details Date Type Department Care Team (Late st Contact Info) Description 07/25/2007 Outpatient [facility] [address] [place] [address] [facility] [address] [place] [address] Dequan Tellez MD NO ADDRESS ON FILE Unilat Ing Hernia Social History Tobacco Use Types Packs/Day Years Used Date Smoking Tobacco: Never Assessed Sex and Gender Information Value Date Recorded Sex Assigned at Not on file Legal 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
--- OUTSIDE RECORDS SUMMARY | 2024-10-22 08:17 | XMS_ITS | Encounter Summary ---
Author Organization [facility] Address [address] [place] [address] Care Team Providers Care Dairy Farm Worker Name Role Phone Marsha Turner MD Primary Care Provider +1- [phone] Encounter Details Date Type Department Care Team (Latest Contact Info) Description 03/02/2008 Outpatient [facility] [address] [place] [address] [facility] [address] [place] [address] Aliyah Lange, [place] [address] [place] [address] Headache; Cervicalgia; Spinal Stenosis in Cervical Region; Cervical Spondylosis without Myelopathy Social History Tobacco Use Types Packs/Day Years Used Date Smoking Tobacco: Never Assessed Sex and Gender Information Value Date Recorded Sex Assigned at Not on file Legal Sex Male 6:16 AM MOP MAN Gender Identity Not on file Sexual Orientation Not on file documented as of this encounter Plan of Treatment Not on file documented as of this encounter Procedures Procedure Name Priority Date/Time Associated Diagnosis Comments XR LUMBAR SPINE 2 OR 3 VW Routine 03/05/2008 1:38 PM MOP MAN documented in this encounter Results * XR LUMBAR SPINE 2 OR 3 VW (03/05/2008 1:38 PM MOP MAN) Anatomical Region Laterality Modality Spine Other 03/05/2008 1:38 PM MOP MAN Narrative 03/06/2008 10:42 AM MOP MAN Exam: Spine - Lumbar Date/Time of Exam: [...] myelopathy documented in this encounter Care Teams Dairy Farm Worker Relationship Specialty Start Date End Date Marsha Turner MD [address] [place] [address] PCP - General Internal Medicine 05/31/12 documented as of this encounter
--- OUTSIDE RECORDS SUMMARY | 2024-10-22 08:17 | XMS_ITS | Encounter Summary ---
Author Organization [facility] Address [address] [place] [address] Care Team Providers Care Process Control Specialist Name Role Phone Marsha Turner MD Primary Care Provider +1- [phone] Encounter Details Date Type Department Care Team (Late st Contact Info) Description 11/05/2005 Outpatient Historical [facility] Urology [facility] [address] 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
--- OUTSIDE RECORDS SUMMARY | 2024-10-22 08:17 | XMS_ITS | Encounter Summary ---
Author Organization [facility] Address [address] [place] [address] Care Team Providers Care Spike Machine Heater Name Role Phone Marsha Turner MD Primary Care Provider +1- [phone] Encounter Details Date Type Department Care Team (Latest Contact Info) Description 05/06/[address] 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
--- OUTSIDE RECORDS SUMMARY | 2024-10-22 08:17 | XMS_ITS | Encounter Summary ---
Author Organization [facility] Address [address] [place] [address] Care Team Providers Care Cutter Operator Name Role Phone Marsha Turner MD Primary Care Provider +1- [phone] Encounter Details Date Type Department Care Team (Latest Contact Info) Description 06/18/2006 Outpatient Historical [facility] Endoscopy [address] 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
--- OUTSIDE RECORDS SUMMARY | 2024-10-22 08:17 | XMS_ITS | Encounter Summary ---
Author Organization [facility] Address [address] [place] [address] Care Team Providers Care Wet Process Head Miller Name Role Phone Marsha Turner MD Primary Care Provider +1- [phone] Reason for Referral * Outpatient Services (Routine) - Closed Specialty Diagnoses / Procedures Referred By Contac t Referred To Contact Radiology Diagnoses H/O: stroke Dizziness History of atrial fibrillation Procedures ECHOCARDIOGRAM W/ CONTRAST AGENT ECHO COMPLETE W BUBBLE STUDY Hayes Harris MD Phone: tel: fax: [facility] [place] [address] [place] [address] Phone: tel: fax: Referral ID Status Reason Start Date Expiration Date V isits Requested Visits Authorized [id number] Closed F [facility] TO SCHEDULE (SGF) 07/31/2016 08/31/2017 1 1 Encounter Details Date Type Department Care Team (Latest Contact Info) Description 08/20/2016 Ancillary Orders [facility] Neurology- [place] 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 SERVICES DEVELOPER Gender Identity Not on file Sexual Orientation [...] INTERFACE SYSTEM - 08/20/2016 10:06 AM CDT [facility]-[address] [place] [address] Transthoracic Echocardiography Patient: Yves Study ECHO Kojo Brown ID: COMPLETE W Gender: Stephanie : 1945 Age: 70 Room: Study 08/20/2016 Pt Outpatient Date: Status: Study 07:40 AM CSN #: [id number] Time: Ordering:Hayes Harris Interpreting:Giovanni Benitez MD Epic Application Coordinator: Gabby Simeon [facility] Indications and History: : H/O: [...] septum: Agitated saline contrast study showed no jkifo-zy-zqvr shunt. - Aortic valve: Trileaflet; mildly thickened [...] Doppler. Agitated saline contrast study showed no eonce-ti-qyey shunt. AORTIC VALVE: Trileaflet; mildly thickened leaflets. [...] (*) eaton values outside specified normal range. [facility] are accredited with the Intersocietal Accreditation Commission - Echocardiography. Prepared and Electronically Authenticated Giovanni Benitez MD Confirmed 08/20/2016 10:06 Procedure Note Giovanni Benitez MD - 08/20/2016 [facility] [address] [facility] [address] [place] [address] Transthoracic Echocardiography Patient: Yves Study ECHO Kojo Brown ID: COMPLETE W Gender: Stephanie : 1945 Age: 70 Room: Study 08/20/2016 Pt Outpatient Date: Status: Study 07:40 AM [facility] #: [id number] Time: Ordering:Hayes Harris Interpreting:Giovanni Benitez MD Epic Application Coordinator: Gabby Simeon [facility] Indications and History: : H/O: [...] septum: Agitated saline contrast study showed no mrsdf-zb-hsvd shunt. - Aortic valve: Trileaflet; mildly thickened [...] Doppler. Agitated saline contrast study showed no kxmeq-hb-wdgv shunt. AORTIC VALVE: Trileaflet; mildly thickened leaflets. [...] (*) eaton values outside specified normal range. [facility] are accredited with the [...] system documented in this encounter Care Teams Wet Process Head Miller Relationship Specialty Start Date End Date Marsha Turner MD [address] [place] [address] PCP - General Internal Medicine 05/31/12 documented as of this encounter
--- OUTSIDE RECORDS SUMMARY | 2024-10-22 08:17 | XMS_ITS | Encounter Summary ---
Author Organization [facility] Address [address] [place] [address] Care Team Providers Care Vice President Safety Name Role Phone Marsha Turner MD Primary Care Provider +1- [phone] Encounter Details Date Type Department Care Team (Late st Contact Info) Description 09/13/2006 Outpatient Historical [facility] Urology [facility] [address] 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
--- OUTSIDE RECORDS SUMMARY | 2024-10-22 08:17 | XMS_ITS | Encounter Summary ---
Author Organization [facility] Address [address] [place] [address] Care Team Providers Care Bottom Scrubber Name Role Phone Marsha Turner MD Primary Care Provider +1- [phone] Encounter Details Date Type Department Care Team (Late st Contact Info) Description 06/14/2006 Outpatient Historical [facility] Urology [facility] [address] [place] [address] Thomas Mack MD NO ADDRESS ON FILE Malig Thierno Prostate (Primary Dx); Slow Urinary Stream Social History Tobacco Use Types Packs/Day Years Used Date Smoking Tobacco: Never Assessed Sex and Gender Information Value Date Recorded Sex Assigned at Not on file Legal Sex Male 6:16 AM EXTRUSION TECHNICIAN Gender Identity Not on file Sexual Orientation Not on file documented as of this encounter Plan of Treatment Not on file documented as of this encounter Visit Diagnoses Diagnosis Malig thierno prostate- Primary Malignant neoplasm of prostate Slow urinary stream Slowing of urinary stream documented in this encounter Care Teams Bottom Scrubber Relationship Specialty Start Date End Date Marsha Turner MD [address] [place], [place] [id number] PCP - General Internal Medicine 05/31/12 documented as of this encounter
--- OUTSIDE RECORDS SUMMARY | 2024-10-22 08:17 | XMS_ITS | Encounter Summary ---
Author Organization [facility] Address [address] [place] [address] Care Team Providers Care Layout Artist Name Role Phone Marsha Turner MD Primary Care Provider +1- [phone] Encounter Details Date Type Department Care Team (Latest Contact Info) Description 10/05/2006 Outpatient Historical [facility] Operating Room [address] [place] [address] Thomas Mack MD NO ADDRESS ON FILE Encounters for Unspecified Administrative Purpose (Primary Dx) Social History Tobacco Use Types Packs/Day Years Used Date Smoking Tobacco: Never Assessed Sex and Gender Information Value Date Recorded Sex Assigned at Not on file Legal Sex Male 6:16 AM SUPERVISOR PACKING ROOM Gender Identity Not on file Sexual Orientation Not on file documented as of this encounter Plan of Treatment Not on file documented as of this encounter Visit Diagnoses Diagnosis Encounters for unspecified administrative purpose- Primary documented in this encounter Care Teams Layout Artist Relationship Specialty Start Date End Date Marsha Turner MD [address] [place] [address] PCP - General Internal Medicine 05/31/12 documented as of this encounter
--- OUTSIDE RECORDS SUMMARY | 2024-10-22 08:17 | XMS_ITS | Encounter Summary ---
Author Organization [facility] Address [address] [place] [address] Care Team Providers Care Pickers Material Handlers Name Role Phone Marsha Turner MD Primary Care Provider +1- [phone] Encounter Details Date Type Department Care Team (Latest Contact Info) Description 06/25/2006 Outpatient Historical [facility] Operating Room [address] [place] [address] Abilio Bagley MD [address] [place] [address] Abdominal Pain, Right Upper Quadrant (Primary Dx) Social History Tobacco Use Types Packs/Day Years Used Date Smoking Tobacco: Never Assessed Sex and Gender Information Value Date Recorded Sex Assigned at Not on file Legal Sex Male 6:16 AM PROCESS IMPROVEMENT SPECIALIST Gender Identity Not on file Sexual Orientation Not on file documented as of this encounter Plan of Treatment Not on file documented as of this encounter Visit Diagnoses Diagnosis Abdominal pain, right upper quadrant- Primary documented in this encounter Care Teams Pickers Material Handlers Relationship Specialty Start Date End Date Marsha Turner MD [address] [place], [place] [id number] PCP - General Internal Medicine 05/31/12 documented as of this encounter
--- OUTSIDE RECORDS SUMMARY | 2024-10-22 08:17 | XMS_ITS | Encounter Summary ---
Author Organization [employer] Address [address] [place] [address] Care Team Providers Care Insurance Claims Processor Name Role Phone Marsha Turner MD Primary Care Provider +1- [phone] Encounter Details Date Type Department Care Team (Late st Contact Info) Description 01/02/2008 Outpatient Historical [facility] DEFAULT DEPARTMENT Dee Casillas MD [address] [phone] Social History Tobacco Use Types Packs/Day Years Used Date Smoking Tobacco: Never Assessed Sex and Gender Information Value Date Recorded Sex Assigned at Not on file Legal Sex Male 6:16 AM CURRICULUM AND INSTRUCTION DIRECTOR Gender Identity Not on file Sexual Orientation Not on file documented as of this encounter Plan of Treatment Not on file documented as of this encounter Visit Diagnoses Not on filedocumented in this encounter Care Teams Insurance Claims Processor Relationship Specialty Start Date End Date Marsha Turner MD [address] [place] [address] PCP - General Internal Medicine 05/31/12 documented as of this encounter
--- OUTSIDE RECORDS SUMMARY | 2024-10-22 08:17 | XMS_ITS | Encounter Summary ---
Author Organization [facility] Address [address] [place] [address] Care Team Providers Care Flasher Adjuster Name Role Phone Marsha Turner MD Primary Care Provider +1- [phone] Encounter Details Date Type Department Care Team (Latest Contact Info) Description 08/26/2018 Ancillary Orders [facility] Spine Neurosurgery [address] [place] [address] Aliyah Lange, PA [address] [place] [address] Status post lumbar spinal fusion Social History Tobacco Use Types Packs/Day Years Used Date Smoking Tobacco: Never Smokeless Tobacco: Never Alcohol Use Standard Drinks/Week Comments No 0 (1 standard drink = 0.6 oz pur e alcohol) Sex and Gender Information Value Date Recorded Sex Assigned at Not on file Legal Sex Male 6:16 AM GENERAL DOC Gender Identity Not on file Sexual Orientation [...] skin sean. IMPRESSION: 1. Interval posterior fusion. [id number] Narrative Procedure Note Chang Rai MD - [...] skin sean. IMPRESSION: 1. Interval posterior fusion. [id number] Aliyah MONTALVO DIAGNOSTIC IMAGING ORDERABLES Final Result documented in this encounter Visit Diagnoses Diagnosis Status post lumbar spinal fusion Arthrodesis status Status post lumbar spinal fusion Arthrodesis status documented in this encounter Care Teams Flasher Adjuster Relationship Specialty Start Date End Date Marsha Turner MD [address] [place] [address] PCP - General Internal Medicine 05/31/12 documented as of this encounter
--- OUTSIDE RECORDS SUMMARY | 2024-10-22 08:17 | XMS_ITS | Encounter Summary ---
Author Organization [facility] Address [address] [place] [address] Care Team Providers Care Technical Operations Vice President Name Role Phone Marsha Turner MD Primary Care Provider +1- [phone] Encounter Details Date Type Department Care Team (Late st Contact Info) Description 12/22/2007 Outpatient Historical [facility] Pain [facility] [address] [place] [address] Kamar Leach MD NO ADDRESS ON FILE Social History Tobacco Use Types Packs/Day Years Used Date Smoking Tobacco: Never Assessed Sex and Gender Information Value Date Recorded Sex Assigned at Not on file Legal Sex 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
--- OUTSIDE RECORDS SUMMARY | 2024-10-22 08:17 | XMS_ITS | Encounter Summary ---
Author Organization [facility] Address [address] [place] [address] Care Team Providers Care Harvest Manager Name Role Phone Marsha Turner MD Primary Care Provider +1- [phone] Encounter Details Date Type Department Care Team (Latest Contact Info) Description 05/06/2005 Outpatient Historical [facility] Endoscopy [place] [address] [place] [address] [place] [address] Abilio Bagley MD [address] [place] [phone] CHEST PAIN NOS (Primary Dx) Social History Tobacco Use Types Packs/Day Years Used Date Smoking Tobacco: Never Assessed Sex and Gender Information Value Date Recorded Sex Assigned at Not on file Legal Sex Male 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
--- OUTSIDE RECORDS SUMMARY | 2024-10-22 08:17 | XMS_ITS | Encounter Summary ---
Author Organization [facility] Address [address] [place] [address] Care Team Providers Care Summer Babysitter Name Role Phone Marsha Turner MD Primary Care Provider +1- [phone] Encounter Details Date Type Department Care Team (Late st Contact Info) Description 01/03/2008 Outpatient Historical [facility] Dee Casillas MD [address] [address] Social History Tobacco Use Types Packs/Day Years Used Date Smoking Tobacco: Never Assessed Sex and Gender Information Value Date Recorded Sex Assigned at Not on file Legal Sex Male 6:16 AM BUCKLE WIRE INSERTER Gender Identity Not on file Sexual Orientation Not on file documented as of this encounter Plan of Treatment Not on file documented as of this encounter Procedures Procedure Name Priority Date/Time Associated Diagnosis Comments CBC WITH DIFFERENTIAL Routine 01/26/2008 4:13 AM BUCKLE WIRE INSERTER COMPREHENSIVE METABOLIC PANEL Routine 01/26/2008 4:13 AM BUCKLE WIRE INSERTER CBC WITH DIFFERENTIAL Routine 01/25/2008 3:17 AM BUCKLE WIRE INSERTER COMPREHENSIVE METABOLIC PANEL Routine 01/25/2008 3:17 AM BUCKLE WIRE INSERTER POC GLUCOSE Routine 01/25/2008 12:12 AM BUCKLE WIRE INSERTER POC GLUCOSE Routine 01/24/2008 7:55 PM BUCKLE WIRE INSERTER XR FLUORO GREATER THAN 1 HOUR Routine 01/24/2008 4:26 PM BUCKLE WIRE INSERTER HEMOGLOBIN AND HEMATOCRIT Stat 01/24/2008 3:06 PM BUCKLE WIRE INSERTER ABORH TYPING Stat 01/24/2008 9:50 AM BUCKLE WIRE INSERTER TYPE AND CROSSMATCH Stat 01/24/2008 9 :50 AM BUCKLE WIRE INSERTER BLOOD BANK ANTIBODY SCREEN Stat 01/24/2008 9:50 AM BUCKLE WIRE INSERTER documented in this encounter Results * (ABNORMAL) COMPREHENSIVE METABOLIC PANEL (01/26/2008 4:13 AM BUCKLE WIRE INSERTER) ALKALINE PHOSPHATASE 44 25 - 100 U/L [facility] CHLORIDE 108 95 - 110 mEq/L [facility] OSMOLALITY, CALCULATED 281 275 - 295 mOsm/Kg [facility] GLOBULIN (CALC) 2.1(L) 2.4 - 3.9 g/dL [facility] TOTAL PROTEIN 5.1(L) 6.3 - 8.2 g/dL [facility] SODIUM 137 136 - 145 mEq/L [facility] BILIRUBIN TOTAL 0.4 0.3 - 1.2 mg/dL [facility] CO2 26 22 - 32 mmol/l [facility] BUN 7(L) 9 - 20 mg/dL [facility] AST 22 8 - 33 U/L [facility] ALBUMIN/GLOBULIN RATIO 1.4 1.0 - 2.3 [facility] POTASSIUM 3.9 3.5 - 5.0 mEq/L [facility] ANION GAP 7(L) 9 - 20 mEq/L [facility] ALBUMIN 3.0(L) 3.5 - 5.0 g/dL [facility] CREATININE 0.6(L) 0.7 - 1.5 mg/dL [facility] ALT 13 4 - 36 IU/L [facility] CALCIUM 8.1(L) 8.4 - 10.5 mg/dL [facility] GLUCOSE 113(H) 70 - 110 mg/dL [facility] Blood specimen (specimen) 01/26/2008 4:13 AM BUCKLE WIRE INSERTER 01/26/2008 4:49 AM BUCKLE WIRE INSERTER us Dee Casillas MD CHEMISTRY ORDERABLES Final Resul t Performing Organization Address City/State/[facility] Co de Phone Number INTERFACE SYSTEM Refer to clinic/hospital department [facility] CLIA# [id number] [address] [place] [address] * (ABNORMAL) CBC WITH DIFFERENTIAL (01/26/2008 4:13 AM BUCKLE WIRE INSERTER) WBC 5.4 4.8 - 10.8 K/ul [facility] MCH 29.9 27.0 - 34.0 pg [facility] NEUTROPHIL ABSOLUTE 4.0 2.0 - 8.0 K/ul [facility] NEUTROPHILS 72.9 42.2 - 75.2 % [facility] HEMATOCRIT 28.4(L) 41.0 - 53.0 % [facility] EOSINOPHILS 1.3 0.0 - 7.0 % [facility] PLATELETS 187 140 - 440 K/ul [facility] EOSINOPHIL ABSOLUTE 0.1 0.0 - 0.7 K/ul [facility] RBC 3.14(L) 4.60 - 6.20 Mil/ul [facility] LYMPHOCYTES 13.6(L) 24.0 - 44.0 % [facility] MCHC 33.1 30.0 - 35.0 g/dL [facility] LYMPHOCYTE ABSOLUTE 0.7(L) 1.2 - 4.0 K/ul [facility] MCV 90.4 84.0 - 103.0 Fl [facility] MPV 9.0 8.9 - 12.8 Fl [facility] BASOPHILS ABSOLUTE 0.0 0.0 - 0.2 K/ul [facility] BASOPHILS 0.4 0.0 - 1.0 % [facility] HEMOGLOBIN 9.4(L) 14.0 - 18.0 g/dL [facility] RDW 13.9 11.0 - 14.5 % [facility] MONOCYTE ABSOLUTE 0.6 0.1 - 0.6 K/ul [facility] MONOCYTES 11.8(H) 2.0 - 10.0 % [facility] Blood specimen (specimen) 01/26/2008 4:13 AM BUCKLE WIRE INSERTER 01/26/2008 4:49 AM BUCKLE WIRE INSERTER us Dee Casillas MD HEMATOLOGY ORDERABLES Final Resu lt INTERFACE SYSTEM Refer to clinic/hospital department [facility] CLIA# [id number] [address] [place] [address] * (ABNORMAL) COMPREHENSIVE METABOLIC PANEL (01/25/2008 3:17 AM BUCKLE WIRE INSERTER) CALCIUM 7.7(L) 8.4 - 10.5 mg/dL [facility] CREATININE 0.7 0.7 - 1.5 mg/dL [facility] ALT 18 4 - 36 IU/L [facility] GLUCOSE 127(H) 70 - 110 mg/dL [facility] CHLORIDE 111(H) 95 - 110 mEq/L [facility] OSMOLALITY, CALCULATED 283 275 - 295 mOsm/Kg [facility] ALKALINE PHOSPHATASE 47 25 - 100 U/L [facility] GLOBULIN (CALC) 1.8(L) 2.4 - 3.9 g/dL [facility] SODIUM 138 136 - 145 mEq/L [facility] BILIRUBIN TOTAL 0.4 0.3 - 1.2 mg/dL [facility] TOTAL PROTEIN 4.8(L) 6.3 - 8.2 g/dL [facility] BUN 8(L) 9 - 20 mg/dL [facility] AST 21 8 - 33 U/L [facility] CO2 27 22 - 32 mmol/l [facility] ALBUMIN/GLOBULIN RATIO 1.7 1.0 - 2.3 [facility] ALBUMIN 3.0(L) 3.5 - 5.0 g/dL [facility] POTASSIUM 3.7 3.5 - 5.0 mEq/L [facility] ANION GAP 4(L) 9 - 20 mEq/L [facility] Blood specimen (specimen) 01/25/2008 3:17 AM BUCKLE WIRE INSERTER 01/25/2008 3:41 AM BUCKLE WIRE INSERTER us Dee Casillas MD CHEMISTRY ORDERABLES Final Resul t INTERFACE SYSTEM Refer to clinic/hospital department [facility] CLIA# [id number] [address] [place] [address] * (ABNORMAL) CBC WITH DIFFERENTIAL (01/25/2008 3:17 AM BUCKLE WIRE INSERTER) MCV 90.4 84.0 - 103.0 Fl [facility] MPV 9.0 8.9 - 12.8 Fl [facility] BASOPHILS 0.6 0.0 - 1.0 % [facility] BASOPHILS ABSOLUTE 0.0 0.0 - 0.2 K/ul [facility] HEMOGLOBIN 9.1(L) 14.0 - 18.0 g/dL [facility] RDW 14.2 11.0 - 14.5 % [facility] MONOCYTES 10.1(H) 2.0 - 10.0 % [facility] MONOCYTE ABSOLUTE 0.5 0.1 - 0.6 K/ul [facility] WBC 5.1 4.8 - 10.8 K/ul [facility] MCH 30.2 27.0 - 34.0 pg [facility] NEUTROPHILS 73.7 42.2 - 75.2 % [facility] NEUTROPHIL ABSOLUTE 3.7 2.0 - 8.0 K/ul [facility] HEMATOCRIT 27.2(L) 41.0 - 53.0 % [facility] PLATELETS 179 140 - 440 K/ul [facility] EOSINOPHIL ABSOLUTE 0.0 0.0 - 0.7 K/ul [facility] EOSINOPHILS 0.6 0.0 - 7.0 % [facility] RBC 3.01(L) 4.60 - 6.20 Mil/ul [facility] LYMPHOCYTES 15.0(L) 24.0 - 44.0 % [facility] MCHC 33.5 30.0 - 35.0 g/dL [facility] LYMPHOCYTE ABSOLUTE 0.8(L) 1.2 - 4.0 K/ul [facility] Blood specimen (specimen) 01/25/2008 3:17 AM BUCKLE WIRE INSERTER 01/25/2008 3:41 AM BUCKLE WIRE INSERTER Dee Casillas MD HEMATOLOGY ORDERABLES Final Resu lt Performing Organization Address City/[facility]/[place] Phone Number INTERFACE SYSTEM Refer to clinic/hospital department [facility] CLIA# [id number] [address] [place] [address] * (ABNORMAL) POC GLUCOSE (01/25/2008 12:12 AM BUCKLE WIRE INSERTER) GLUCOSE POC 131(H) 60 - 100 mg/dL [facility] Venous blood specimen (specimen) 01/25/2008 12:12 AM BUCKLE WIRE INSERTER 01/25/2008 2:51 AM BUCKLE WIRE INSERTER Dee Casillas MD POINT OF CARE TESTING Final Resu lt Performing Organization Address [facility] Phone Number INTERFACE SYSTEM Refer to clinic/hospital department [facility] CLIA# [id number] [address] [place] [address] * (ABNORMAL) POC GLUCOSE (01/24/2008 7:55 PM BUCKLE WIRE INSERTER) GLUCOSE POC 129(H) 60 - 100 mg/dL [facility] Venous blood specimen (specimen) 01/24/2008 7:55 PM BUCKLE WIRE INSERTER 01/25/2008 2:51 AM BUCKLE WIRE INSERTER Result [facility] us Dee Casillas MD POINT OF CARE TESTING Final Resu lt Performing Organization Address [facility]/[place] Phone Number INTERFACE SYSTEM Refer to clinic/hospital department [facility] CLIA# [id number] [address] [place] [address] * XR FLUORO > 1 HOUR (01/24/2008 4:26 PM BUCKLE WIRE INSERTER) Anatomical Region Laterality Modality Other 01/24/2008 4:26 PM BUCKLE WIRE INSERTER Narrative 01/24/2008 4:26 PM BUCKLE WIRE INSERTER Finalized by interface cleanup utility. No report expected. Procedure Note 03/25/2008 Finalized by interface cleanup utility. No report expected. us Dee Casillas MD DIAGNOSTIC IMAGING ORDERABLES Fi nal Result * (ABNORMAL) HEMOGLOBIN AND HEMATOCRIT (01/24/2008 3:06 PM BUCKLE WIRE INSERTER) HEMOGLOBIN 9.9(L) 14.0 - 18.0 g/dL [facility] HEMATOCRIT 29.2(L) 41.0 - 53.0 % [facility] Blood specimen (specimen) 01/24/2008 3:06 PM BUCKLE WIRE INSERTER 01/24/2008 3:06 PM BUCKLE WIRE INSERTER Result [facility] us Dee Casillas MD HEMATOLOGY ORDERABLES Final Resu lt Performing Organization Address [facility]/[place] Phone Number INTERFACE SYSTEM Refer to clinic/hospital department [facility] CLIA# [id number] [address] [place] [address] * TYPE AND CROSSMATCH (01/24/2008 9:50 AM BUCKLE WIRE INSERTER) BLOOD BANK PRODUCT INTERFACE SYSTEM Blood specimen (specimen) 01/24/2008 9:50 AM BUCKLE WIRE INSERTER 01/24/2008 9:53 AM BUCKLE WIRE INSERTER Result [facility] Dee Casillas MD BLOOD BANK ORDERABLES Final Resu lt Performing Organization Address City/[facility] Co de Phone Number INTERFACE SYSTEM Refer to clinic/hospital department * ANTIBODY SCREEN (01/24/2008 9:50 AM BUCKLE WIRE INSERTER) ANTIBODY SCREEN Negative [facility] Blood specimen (specimen) 01/24/2008 9:50 AM BUCKLE WIRE INSERTER 01/24/2008 9:53 AM BUCKLE WIRE INSERTER Dee Casillas MD BLOOD BANK ORDERABLES Final Resu lt Performing Organization Address [facility]/[place] Phone Number INTERFACE SYSTEM Refer to clinic/hospital department [facility] CLIA# [id number] [address] [place] [address] * ABORH TYPING (01/24/2008 9:50 AM BUCKLE WIRE INSERTER) ABO/RH TYPE A Positive [facility] Blood specimen (specimen) 01/24/2008 9:50 AM BUCKLE WIRE INSERTER 01/24/2008 9:53 AM BUCKLE WIRE INSERTER Dee Casillas MD BLOOD BANK ORDERABLES Final Resu lt Performing Organization Address [facility]/[place] [facility] Phone Number INTERFACE SYSTEM Refer to clinic/hospital department [facility] CLIA# [id number] [address] [place] [address] documented in this encounter Visit Diagnoses Not on filedocumented in this encounter Care Teams Summer Babysitter Relationship Specialty Start Date End Date Marsha Turner MD [address] [place] [address] PCP - General Internal Medicine 05/31/12 documented as of this encounter
--- OUTSIDE RECORDS SUMMARY | 2024-10-22 08:17 | XMS_ITS | Encounter Summary ---
Author Organization [facility] Address [address] [place] [address] Care Team Providers Care Veneer Sheet Repairer Name Role Phone Marsha Turner MD Primary Care Provider +1- [phone] Encounter Details Date Type Department Care Team (Late st Contact Info) Description 09/23/2005 Outpatient Historical [facility] Urology [facility] 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
--- OUTSIDE RECORDS SUMMARY | 2024-10-22 08:17 | XMS_ITS | Encounter Summary ---
Author Organization [facility] Address [address] [place] [address] Care Team Providers Care Counter Supply Worker Name Role Phone Marsha Turner MD Primary Care Provider +1- [phone] Encounter Details Date Type Department Care Team (Late st Contact Info) Description 02/06/2008 Outpatient Historical [facility] DEFAULT DEPARTMENT Dee Casillas MD [address] [id number] Social History Tobacco Use Types Packs/Day Years Used Date Smoking Tobacco: Never Assessed Sex and Gender Information Value Date Recorded Sex Assigned at Not on file Legal Sex Male 6:16 AM 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
--- OUTSIDE RECORDS SUMMARY | 2024-10-22 08:17 | XMS_ITS | Encounter Summary ---
Author Organization [facility] Address [address] [place] [address] Care Team Providers Care Top Frame Fitter Name Role Phone Marsha Turner MD Primary Care Provider +5- [phone] Encounter Details Date Type Department Care Team (Latest Contact Info) Description 06/23/2005 Outpatient Historical [facility] [place] [address] [place] [address] Jalen Rutledge MD NO ADDRESS ON FILE Chronic Rhinitis (Primary Dx); Other Dyspnea and Respiratory Abnormality Social History Tobacco Use Types Packs/Day Years Used Date Smoking Tobacco: Never Assessed Sex and Gender Information Value Date Recorded Sex Assigned at Not on file Legal 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
--- OUTSIDE RECORDS SUMMARY | 2024-10-22 08:17 | XMS_ITS | Encounter Summary ---
Author Organization [facility] Address [address] [place] [address] Care Team Providers Care Heading Up Machine Operator Name Role Phone Marsha Turner MD Primary Care Provider +1- [phone] Encounter Details Date Type Department Care Team (Late st Contact Info) Description 08/27/2005 Outpatient Historical [facility] Urology [facility] [address] 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
--- OUTSIDE RECORDS SUMMARY | 2024-10-22 08:17 | XMS_ITS | Encounter Summary ---
Author Organization [facility] Address [address] [place] [address] Care Team Providers Care Shellfish Bed Worker Name Role Phone Marsha Turner MD Primary Care Provider +1- [phone] Encounter Details Date Type Department Care Team (Late st Contact Info) Description 05/27/2006 Outpatient Historical [facility] Urology [facility] [address] [place] [address] Thomas Mack MD NO ADDRESS ON FILE Malig Thierno Prostate (Primary Dx); Slow Urinary Stream; Urinary Frequency Social History Tobacco Use Types Packs/Day Years Used Date Smoking Tobacco: Never Assessed Sex and Gender Information Value Date Recorded Sex Assigned at Not on file Legal Sex Male 6:16 AM CLAM BED WORKER Gender Identity Not on file Sexual Orientation Not on file documented as of this encounter Plan of Treatment Not on file documented as of this encounter Visit Diagnoses Diagnosis Malig thierno prostate- Primary Malignant neoplasm of prostate Slow urinary stream Slowing of urinary stream Urinary frequency documented in this encounter Care Teams Shellfish Bed Worker Relationship Specialty Start Date End Date Marsha Turner MD [address] [place], [place] [address] PCP - General Internal Medicine 05/31/12 documented as of this encounter
--- OUTSIDE RECORDS SUMMARY | 2024-10-22 08:17 | XMS_ITS | Encounter Summary ---
Author Organization [facility] Address [address] [place] [address] Care Team Providers Care Portfolio Consultant Name Role Phone Marsha Turner MD Primary Care Provider +1- [phone] Encounter Details Date Type Department Care Team (Late st Contact Info) Description 09/23/[address] 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
--- OUTSIDE RECORDS SUMMARY | 2024-10-22 08:17 | XMS_ITS | Clinical Summary ---
Author Organization [facility] Address [address] [place] [address] Care Team Providers Care Chartered Accountant Name Role Phone Marsha Turner MD Primary Care Provider +1- [phone] Allergies Active Allergy Reactions Criticality Noted Date [...] SYNTHROID 137 mcg tablet 137 mcg daily bottom brusher. 9 Active liothyronine (CYTOMEL) 5 mcg Tablet 2 Tablets daily bottom brusher. 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 Gender Identity Not on file Sexual Orientation [...] years Discontinued Medical Devices Implanted Type Area Financial Operations Clerk Device Identifier Shelf Expiration Date Model / Serial / Lot Vitoss Foam Ba 1.2ml Implanted:Qty: 1 on 04/18/2013 at [facility] Biological N/A: Spine Cervical Anterior LISA- SPINE 10/13/2014 / NA / [id number] [place] C Stand Alone Cage [id number] Implanted:Qty: 1 on 04/18/2013 by John Castillo MD at [facility] Cage N/A: Spine Cervical Anterior LISA- SPINE [id number] / LD [id number] / NA Cement Palacos R+G [id number] - Sna Implanted:Qty: 2 on 09/29/2012 at [facility] Cement Left: Knee SHIRA US INC 01/13/201657-2084-636-01 / NA / NA Hemostatic Gelfoam Powder 1gm [id number] - [id number] Implanted:Qty: 1 on 05/20/2015 by Dee Casillas MD at [facility] Hemostatic N/A: Spine Thoracic PFIZER- PHARM 10/12/2017 [id number] / / [id number] Hemostatic Gelfoam Powder 1gm [id number] - [id number] Implanted:Qty: 1 on 09/14/2017 by Dee Casillas MD at [facility] Hemostatic N/A: Back PFIZER- PHARM 11/13/2019 [id number] / / [id number] Gel-Flow Nt Implanted:Qty: 1 on 08/12/2018 by Dee Casillas MD at [facility] Hemostatic N/A: Spine Cervical Anterior PFIZER- PHARMACIA AND UPJOHN I 08/04/2019 / / [id number] Bearing Tib Vng 10mm 79/83mm 095079 - [id number] Implanted:Qty: 1 on 09/29/2012 at [facility] Knee Left: Knee BIOMET INC 05/12/2017 138029 / / [id number] Comp Fem Vng Ps Sz72.5 Lt 804836 - [id number] Implanted:Qty: 1 on 09/29/2012 at [facility] Knee Left: Knee BIOMET INC 06/12/2022 609809 / / [id number] Comp Tib Cocr Finned 83mm 979941 - [id number] Implanted:Qty: 1 on 09/29/2012 at [facility] Knee Left: Knee BIOMET INC 03/14/2022 311606 / / [id number] Standard Patella Implanted:Qty: 1 on 09/29/2012 by Dylon Abreu MD at [facility] Knee Left: Knee BIOMET- ORTHOPEDICS, INC 07/12/2017 306901 / / [id number] Plate Hybrid Cerv 12mm 59188285 - Sld [id number] Implanted:Qty: 1 on 04/18/2013 at [facility] Plate N/A: Spine Cervical Anterior LISA- SPINE 59261170 / LD [id number] / NA Issac Lgcy Crv Ti 5.8t354mn 3416588 - [id number] Implanted:Qty: 1 on 09/14/2017 by Dee Casillas MD at [facility] Issac N/A: Back MEDTRONIC- SOFAMOR DANEK 09/15/2019 2306942 / / [id number] Issac Lgcy Crv Ti 5.0k704cn 1632784 - [id number] Implanted:Qty: 1 on 09/14/2017 by Dee Casillas MD at [facility] Issac N/A: Back MEDTRONIC- SOFAMOR DANEK 09/15/2019 3585337 / / [id number] Issac Std 3.6s016de 4401140 - [id number] Implanted:Qty: 2 on 08/12/2018 by Dee Casillas MD at [facility] Issac N/A: Spine Cervical Anterior MEDTRONIC- SOFAMOR DANEK 1299165 / [id number] / Screw Rh Sd Fa 4.0x14mm 04390312 - Sld [id number] Implanted:Qty: 1 on 04/18/2013 at [facility] Screw N/A: Spine Cervical Anterior LISA- SPINE 54411382 / LD [id number] / NA Screw Sd 3.5x10mm 56522174 - Sld [id number] Implanted:Qty: 2 on 04/18/2013 at [facility] Screw N/A: Spine Cervical Anterior LISA- SPINE 22907143 / LD [id number] / NA Screw Rh St Va 4.0x14mm 41236136 - Sld [id number] Implanted:Qty: 2 on 04/18/2013 at [facility] Screw N/A: Spine Cervical Anterior LISA- SPINE 15430442 / LD [id number] / NA Screw Rh St Fa 4.0x14mm 04500743 - Sld [id number] Implanted:Qty: 1 on 04/18/2013 at [facility] Screw N/A: Spine Cervical Anterior LISA- SPINE 46344192 / LD [id number] / NA Screw Legacy Ma 6.5x50mm 92043781 - [id number] Implanted:Qty: 1 on 09/14/2017 by Dee Casillas MD at [facility] Screw N/A: Back MEDTRONIC- SOFAMOR DANEK 20467841 / / [id number] Screw Legacy Ma 6.5x50mm 21006565 - [id number] Implanted:Qty: 1 on 09/14/2017 by Dee Casillas MD at [facility] Screw N/A: Back MEDTRONIC- SOFAMOR DANEK 32627259 / / [id number] Set Screw Break Off Ti 4096966 - [id number] Implanted:Qty: 1 on 09/14/2017 by Dee Casillas MD at [facility] Screw N/A: Back MEDTRONIC- SOFAMOR DANEK 9284273 / / [id number] Set Screw Break Off Ti 0618952 - [id number] Implanted:Qty: 1 on 09/14/2017 by Dee Casillas MD at [facility] Screw N/A: Back MEDTRONIC- SOFAMOR DANEK 8274608 / / [id number] Set Screw Break Off Ti 4717213 - [id number] Implanted:Qty: 1 on 09/14/2017 by Dee Casillas MD at [facility] Screw N/A: Back MEDTRONIC- SOFAMOR DANEK 3976671 / / [id number] Set Screw Break Off Ti 2346194 - [id number] Implanted:Qty: 1 on 09/14/2017 by Dee Casillas MD at [facility] Screw N/A: Back MEDTRONIC- SOFAMOR DANEK 2849815 / / [id number] Set Screw Break Off Ti 9131348 - [id number] Implanted:Qty: 1 on 09/14/2017 by Dee Casillas MD at [facility] Screw N/A: Back MEDTRONIC- SOFAMOR DANEK 9806816 / / [id number] Screw Legacy Ma 7.5x50mm 96232228 - [id number] Implanted:Qty: 1 on 09/14/2017 by Dee Casillas MD at [facility] Screw N/A: Back MEDTRONIC- SOFAMOR DANEK 58170247 / / [id number] Screw Legacy Ma 7.5x50mm 72081343 - [id number] Implanted:Qty: 1 on 09/14/2017 by Dee Casillas MD at [facility] Screw N/A: Back MEDTRONIC- SOFAMOR DANEK 82197537 / / [id number] Set Screw Break Off Ti 6195518 - [id number] Implanted:Qty: 1 on 09/14/2017 by Dee Casillas MD at [facility] Screw N/A: Back MEDTRONIC- SOFAMOR DANEK 0855683 / / [id number] Set Screw Break Off Ti 5726832 - [id number] Implanted:Qty: 1 on 09/14/2017 by Dee Casillas MD at [facility] Screw N/A: Back MEDTRONIC- SOFAMOR DANEK 9856182 / / [id number] Set Screw Break Off Ti 3883213 - [id number] Implanted:Qty: 1 on 09/14/2017 by Dee Casillas MD at [facility] Screw N/A: Back MEDTRONIC- SOFAMOR DANEK 5163422 / / [id number] Infinity Screw Implanted:Qty: 7 on 08/12/2018 by Dee Casillas MD at [facility] Screw N/A: Spine Cervical Anterior MEDTRONIC- NEUROSURGERY 5105170 / [id number] / Description:PER INVOICE Infinity Screw Implanted:Qty: 2 on 08/12/2018 by Dee Casillas MD at [facility] Screw N/A: Spine Cervical Anterior MEDTRONIC- NEUROSURGERY 1824278 / [id number] / Description:PER INVOICE Infinity Screw Implanted:Qty: 2 on 08/12/2018 by Dee Casillas MD at [facility] Screw N/A: Spine Cervical Anterior MEDTRONIC- NEUROSURGERY 8033972 / [id number] / Description:PER INVOICE Infinity Set Screws Implanted:Qty: 11 on 08/12/2018 by Dee Casillas MD at [facility] Screw N/A: Spine Cervical Anterior 1299793 / [id number] / Description:PER INVOICE Spacer As [id number] 68680136 - Sld [id number] Implanted:Qty: 1 on 04/18/2013 at [facility] Spacer N/A: Spine Cervical Anterior LISA- SPINE 28315299 / LD [id number] / NA Crosslink Lp Mltspn L=1.75-2.15 811-322 - [id number] Implanted:Qty: 1 on 09/14/2017 by Dee Casillas MD at [facility] Spine N/A: Back MEDTRONIC- SOFAMOR DANEK 09/15/2019 811-322 / / [id number] Description:09/17 inv pricing Readigraft Canc Chips 30ml Can30 14bp - [id number] Implanted:Qty: 1 on 09/14/2017 by Dee Casillas MD at [facility] Tissue N/A: Back LIFENET 08/20/2019 CAN30 14BP / / [id number] Putty Bio Dbm 10ml 6888149 - [id number] Implanted:Qty: 1 on 09/14/2017 by Dee Casillas MD at [facility] Tissue N/A: Back LISA- HOWMEDICA INT INC 05/27/2019 3644207 / / [id number] Putty Bio Dbm 10ml 7960890 - [id number] Implanted:Qty: 1 on 09/14/2017 by Dee Casillas MD at [facility] Tissue N/A: Back LISA- HOWMEDICA INT INC 05/16/2019 3197304 / / [id number] Putty Bio Dbm 10ml 4730780 - [id number] Implanted:Qty: 1 on 08/12/2018 by Dee Casillas MD at [facility] Tissue N/A: Spine Cervical Anterior LISA- HOWMEDICA INT INC 04/13/2020 1878629 / / [id number] Putty Bio Dbm 10ml 6381097 - [id number] Implanted:Qty: 1 on 08/12/2018 by Dee Casillas MD at [facility] Tissue N/A: Spine Cervical Anterior LISA- HOWMEDICA INT INC 04/13/2020 1102346 / / [id number] Explanted Type Area Financial Operations Clerk Device Identifier Shelf Expiration Date Model / Serial / Lot Stim Spnl Cord Precision Spectra [id number] - [id number] Implanted:Qty: 1 on 05/20/2015 by Dee Casillas MD at [facility] Explanted:Qty: 1 on 06/15/2016 by Dee Casillas MD at [facility] Neuro Right: Spine Thoracic [employer]- NEURO MODULATION 05/02/2017 MO-1132 / / [id number] Infinity Set Screws Explanted:Qty: 2 on 08/12/2018 at [facility] Screw N/A: Spine Cervical Anterior MEDTRONIC- NEUROSURGERY 5418111 / [id number] / Description:PER INVOICE Cover Edge 32 70cm 4x8 Telecom Engineer Kit [id number] Implanted:Qty: 1 on 05/20/2015 by Dee Casillas MD at [facility] Explanted:Qty: 1 on 06/15/2016 by Dee Casillas MD at [facility] N/A: Spine Thoracic [employer] INC 02/11/2017 / [id number] / [id number] Set Screws X4, Blockers X4, And 2 Rods Explanted:Qty: 1 on 09/14/2017 by Dee Casillas MD at [facility] N/A: Spine Cervical Anterior Insurance MEDICARE PART A AND B GENERIC PAYOR RX [facility] Medicare Part D [facility] MEDICARE PART A AND B Advance Directives For more information, please contact: [phone] * Full Code (Latest Code Status on [...] 9:28 AM 06/15/2016 5:17 PM Care Teams Chartered Accountant Relationship Specialty Start Date End Date Marsha Turner MD [address] [place] [address] PCP - General Internal Medicine 05/31/12
--- OUTSIDE RECORDS SUMMARY | 2024-10-22 08:17 | XMS_ITS | Encounter Summary ---
Author Organization [facility] Address [address] [place] [address] Care Team Providers Care Machine Burrer Name Role Phone Marsha Turner MD Primary Care Provider +1- [phone] Encounter Details Date Type Department Care Team (Latest Contact Info) Description 06/14/2006 Outpatient [facility] Gastroenterology[address] [place] [address] Abilio Bagley MD [address] [place] [address] Acute Pancreatitis (Primary Dx) Social History Tobacco Use Types Packs/Day Years Used Date Smoking Tobacco: Never Assessed Sex and Gender Information Value Date Recorded Sex Assigned at Not on file 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
--- OUTSIDE RECORDS SUMMARY | 2024-10-22 08:17 | XMS_ITS | Encounter Summary ---
Author Organization [facility] Address [address] [place] [address] Care Team Providers Care Supervisor Kennel Name Role Phone Marsha Turner MD Primary Care Provider +1- [phone] Encounter Details Date Type Department Care Team (Latest Contact Info) Description 05/14/2005 Outpatient Historical [facility] Imaging Services-[facility] [address] [place] [address] Abilio Bagley MD [address] [place] [address] ESOPHAGEAL REFLUX (Primary Dx) Social History Tobacco Use Types Packs/Day Years Used Date Smoking Tobacco: Never Assessed Sex and Gender Information Value Date Recorded Sex Assigned at Not on file 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
--- OUTSIDE RECORDS SUMMARY | 2024-10-22 08:17 | XMS_ITS | Encounter Summary ---
Author Organization [facility] Address [address] [place] [address] Care Team Providers Care Meat Grader Name Role Phone Marsha Turner MD Primary Care Provider +1- [phone] Reason for Referral * Outpatient Services (Routine) - Closed Specialty Diagnoses / Procedures Referred By Te caceres Referred To Contact Diagnoses Disorders of sacrum Procedures XR FLUORO NEEDLE GUIDANCE Kamar Leach MD Referral ID Status Reason Start Date Expiration Date Visits Re quested Visits Authorized [id number] Closed 06/11/2014 07/12/2015 1 1 Encounter Details Date Type Department Care Team (Late st Contact Info) Description 06/11/2014 Ancillary Orders [facility] Pain Management Procedures [place] [address] [place] [address] Kamar Leach MD NO ADDRESS ON FILE Disorders of sacrum (Primary Dx) Social History Tobacco Use Types Packs/Day Years Used Date Smoking Tobacco: Never Smokeless Tobacco: Never Alcohol Use Standard Drinks/Week Comments No 0 (1 standard drink = 0.6 oz pur e alcohol) Sex and Gender Information Value Date Recorded Sex Assigned at Not on file 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
--- OUTSIDE RECORDS SUMMARY | 2024-10-22 08:17 | XMS_ITS | Encounter Summary ---
Author Organization [facility] Address [address] [place] [address] Care Team Providers Care Television Journalist Name Role Phone Marsha Turner MD Primary Care Provider +1- [phone] Encounter Details Date Type Department Care Team (Late st Contact Info) Description 09/23/2005 Outpatient Historical [facility] Imaging Services-[facility] Floyd [address] [place] [address] Thomas Mack MD NO ADDRESS ON FILE Renal Colic (Primary Dx) Social History Tobacco Use Types Packs/Day Years Used Date Smoking Tobacco: Never Assessed Sex and Gender Information Value Date Recorded Sex Assigned at Not on file 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
--- OUTSIDE RECORDS SUMMARY | 2024-10-22 08:17 | XMS_ITS | Encounter Summary ---
Author Organization [facility] Address [address] [place] [address] Care Team Providers Care Signal Mechanic Name Role Phone Marsha Turner MD Primary Care Provider +1- [phone] Encounter Details Date Type Department Care Team (Latest Contact Info) Description 11/30/2005 Outpatient Historical [facility] Pulmonology-[facility] Laura [address] [place] [address] David Teresa MD NO ADDRESS ON FILE Cough (Primary Dx); Other Dyspnea and Respiratory Abnormality Social History Tobacco Use Types Packs/Day Years Used Date Smoking Tobacco: Never Assessed Sex and Gender Information Value Date Recorded Sex Assigned at Not on file 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
--- OUTSIDE RECORDS SUMMARY | 2024-10-22 08:17 | XMS_ITS | Encounter Summary ---
Author Organization [facility] Address [address] [place] [address] Care Team Providers Care Calender Supervisor Name Role Phone Marsha Turner MD Primary Care Provider +1- [phone] Encounter Details Date Type Department Care Team (Late st Contact Info) Description 12/12/2007 Outpatient Historical [facility] Pain Management Procedures [address] 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 No report expected. Procedure Note 03/25/2008 Finalized by [facility] utility. No report expected. us Kamar Leach MD DIAGNOSTIC IMAGING ORDERAB LES Final Result documented in this encounter Visit Diagnoses Diagnosis Unspecified asthma(493.90) Unspecified asthma Arthropathy, unspecified, site unspecified Diaphragmatic hernia without mention of obstruction or gangrene Personal history of unspecified circulatory disease Unspecified joint replacement by other means Personal history of allergy to analgesic agent documented in this encounter Care Teams Calender Supervisor Relationship Specialty Start Date End Date Marsha Turner MD [address] [place] [address] PCP - General Internal Medicine 05/31/12 documented as of this encounter
--- OUTSIDE RECORDS SUMMARY | 2024-10-22 08:17 | XMS_ITS | Clinical Summary ---
Author Organization [facility] Address [address] 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 Gender Identity Not on file Sexual Orientation [...] years Discontinued Medical Devices Implanted Type Area Meteorological Engineer Device Identifier Shelf Expiration Date Model / Serial / Lot Vitoss Foam Ba 1.2ml [id number] - Sna Implanted:Qty: 1 on 04/18/2013 Biological N/A: Spine Cervical Anterior LISA- SPINE 10/13/2014 / NA / [id number] Gurley C Stand Alone Cage [id number] Implanted:Qty: 1 on 04/18/2013 by John Castillo MD Cage N/A: Spine Cervical Anterior LISA- SPINE 13751128 / LD [id number] / NA Cement Palacos R+G [id number] - Sna Implanted:Qty: 2 on 09/29/2012 Cement Left: Knee SHIRA [employer] INC 01/13/201695-0066-334-01 / NA / NA Hemostatic Gelfoam Powder 1gm [id number] - [id number] Implanted:Qty: 1 on 05/20/2015 by Dee Casillas MD Hemostatic N/A: Spine Thoracic PFIZER- PHARM 10/12/[id number] / / [id number] Hemostatic Gelfoam Powder 1gm [id number] - [id number] Implanted:Qty: 1 on 09/14/2017 by Dee Casillas MD Hemostatic N/A: Back PFIZER- PHARM 11/13/2019 [id number] / / [id number] Gel-Flow Nt Implanted:Qty: 1 on 08/12/2018 by Dee Casillas MD Hemostatic N/A: Spine Cervical Anterior PFIZER- PHARMACIA AND UPJOHN I 08/04/2019 / / [id number] Bearing Tib Vng 10mm 79/83mm 642338 - [id number] Implanted:Qty: 1 on 09/29/2012 Knee Left: Knee BIOMET INC 05/12/2017 141624 / / [id number] Comp Fem Vng Ps Sz72.5 Lt 900739 - [id number] Implanted:Qty: 1 on 09/29/2012 Knee Left: Knee BIOMET INC 06/12/2022 441314 / / [id number] Comp Tib Cocr Finned 83mm 363053 - [id number] Implanted:Qty: 1 on 09/29/2012 Knee Left: Knee BIOMET INC 03/14/2022 323475 / / [id number] Standard Patella Implanted:Qty: 1 on 09/29/2012 by Dylon Abreu MD Knee Left: Knee BIOMET- ORTHOPED[employer] INC 07/12/2017 514569 / / [id number] Plate Hybrid Cerv 12mm 34122867 - Sld [id number] Implanted:Qty: 1 on 04/18/2013 Plate N/A: Spine Cervical Anterior LISA- SPINE 37581370 / LD [id number] / NA Issac Lgcy Crv Ti 5.5o745vb 8259459 - [id number] Implanted:Qty: 1 on 09/14/2017 by Dee Casillas MD Issac N/A: Back MEDTRONIC- SOFAMOR DANEK 09/15/2019 4829193 / / [id number] Issac Lgcy Crv Ti 5.1f008ol 6358939 - [id number] Implanted:Qty: 1 on 09/14/2017 by Dee Casillas MD Issac N/A: Back [employer]- SOFAMOR DANEK 09/15/2019 6611268 / / [id number] Issac Std 3.2o477zd 1360658 - [id number] Implanted:Qty: 2 on 08/12/2018 by Dee Casillas MD Issac N/A: Spine Cervical Anterior MED[employer]- SOFAMOR DANEK 9218054 / [id number] / Screw Rh St Va 4.0x14mm 96846383 - Sld [id number] Implanted:Qty: 2 on 04/18/2013 Screw N/A: Spine Cervical Anterior LISA- SPINE 29397729 / LD [id number] / NA Screw Sd 3.5x10mm 75262238 - Sld [id number] Implanted:Qty: 2 on 04/18/2013 Screw N/A: Spine Cervical Anterior LISA- SPINE 25564328 / LD [id number] / NA Screw Rh Sd Fa 4.0x14mm 01566053 - Sld [id number] Implanted:Qty: 1 on 04/18/2013 Screw N/A: Spine Cervical Anterior LISA- SPINE 71041368 / LD [id number] / NA Screw Rh St Fa 4.0x14mm 73016930 - Sld [id number] Implanted:Qty: 1 on 04/18/2013 Screw N/A: Spine Cervical Anterior LISA- SPINE 78552966 / LD [id number] / NA Screw Legacy Ma 6.5x50mm 60224813 - [id number] Implanted:Qty: 1 on 09/14/2017 by Dee Casillas MD Screw N/A: Back [employer]- SOFAMOR DANEK 03727765 / / [id number] Screw Legacy Ma 6.5x50mm 21099365 - [id number] Implanted:Qty: 1 on 09/14/2017 by Dee Casillas MD Screw N/A: Back MEDTR[employer]- SOFAMOR DANEK 26004222 / / [id number] Screw Legacy Ma 7.5x50mm 62383578 - [id number] Implanted:Qty: 1 on 09/14/2017 by Dee Casillas MD Screw N/A: Back MED[employer]- SOFAMOR DANEK 29660804 / / [id number] Screw Legacy Ma 7.5x50mm 25246076 - [id number] Implanted:Qty: 1 on 09/14/2017 by Dee Casillas MD Screw N/A: Back MEDTR[employer]- SOFAMOR DANEK 48656922 / / [id number] Set Screw Break Off Ti 1403010 - [id number] Implanted:Qty: 1 on 09/14/2017 by Dee Casillas MD Screw N/A: Back [employer]- SOFAMOR DANEK 2693850 / / [id number] Set Screw Break Off Ti 1822084 - [id number] Implanted:Qty: 1 on 09/14/2017 by Dee Casillas MD Screw N/A: Back MEDTRON[employer]- SOFAMOR DANEK 3136117 / / [id number] Set Screw Break Off Ti 8767467 - [id number] Implanted:Qty: 1 on 09/14/2017 by Dee Casillas MD Screw N/A: Back MEDTRONIC- SOFAMOR DANEK 2743476 / / [id number] Set Screw Break Off Ti 6111785 - [id number] Implanted:Qty: 1 on 09/14/2017 by Dee Casillas MD Screw N/A: Back MEDTRONIC- SOFAMOR DANEK 5541575 / / [id number] Set Screw Break Off Ti 8899842 - [id number] Implanted:Qty: 1 on 09/14/2017 by Dee Casillas MD Screw N/A: Back MEDTRONIC- SOFAMOR DANEK 9092315 / / [id number] Set Screw Break Off Ti 7764507 - [id number] Implanted:Qty: 1 on 09/14/2017 by Dee Casillas MD Screw N/A: Back MEDTRONIC- SOFAMOR DANEK 2408300 / / [id number] Set Screw Break Off Ti 3257320 - [id number] Implanted:Qty: 1 on 09/14/2017 by Dee Casillas MD Screw N/A: Back MEDTRONIC- SOFAMOR DANEK 8807206 / / [id number] Set Screw Break Off Ti 6278637 - [id number] Implanted:Qty: 1 on 09/14/2017 by Dee Casillas MD Screw N/A: Back MEDTRONIC- SOFAMOR DANEK 6209332 / / [id number] Infinity Screw Implanted:Qty: 7 on 08/12/2018 by Dee Casillas MD Screw N/A: Spine Cervical Anterior MEDTRONIC- NEUROSURGERY 0074747 / [id number] / Description:PER INVOICE Infinity Screw Implanted:Qty: 2 on 08/12/2018 by Dee Casillas MD Screw N/A: Spine Cervical Anterior MEDTRONIC- NEUROSURGERY 9379596 / [id number] / Description:PER INVOICE Infinity Screw Implanted:Qty: 2 on 08/12/2018 by Dee Casillas MD Screw N/A: Spine Cervical Anterior MEDTRONIC- NEUROSURGERY 5235476 / [id number] / Description:PER INVOICE Infinity Set Screws Implanted:Qty: 11 on 08/12/2018 by Dee Casillas MD Screw N/A: Spine Cervical Anterior 9846772 / [id number] / Description:PER INVOICE Spacer As [id number] 90817287 - Sld [id number] Implanted:Qty: 1 on 04/18/2013 Spacer N/A: Spine Cervical Anterior LISA- SPINE 36108949 / LD [id number] / NA Crosslink Lp Mltspn L=1.75-2.15 811-322 - [id number] Implanted:Qty: 1 on 09/14/2017 by Dee Casillas MD Spine N/A: Back MEDTRONIC- SOFAMOR ALVINAEK 09/15/2019 811-322 / / [id number] Description:09/17 inv pricing Putty Bio Dbm 10ml 2833087 - [id number] Implanted:Qty: 1 on 09/14/2017 by Dee Casillas MD Tissue N/A: Back LISA- HOWMEDICA INT INC 05/27/2019 4800359 / / [id number] Putty Bio Dbm 10ml 4356318 - [id number] Implanted:Qty: 1 on 09/14/2017 by Dee Casillas MD Tissue N/A: Back LISA- HOWMEDICA INT INC 05/16/2019 8402792 / / [id number] Readigraft Canc Chips 30ml Can30 14bp - [id number] Implanted:Qty: 1 on 09/14/2017 by Dee Casillas MD Tissue N/A: Back [employer]ia 08/20/2019 CAN30 14BP / / [id number] Putty Bio Dbm 10ml 3135480 - [id number] Implanted:Qty: 1 on 08/12/2018 by Dee Casillas MD Tissue N/A: Spine Cervical Anterior LISA- HOWMED[employer] INT INC 04/13/2020 4139111 / / [id number] Putty Bio Dbm 10ml 5175588 - [id number] Implanted:Qty: 1 on 08/12/2018 by Dee Casillas MD Tissue N/A: Spine Cervical Anterior LISA- HOWMEDICA INT INC 04/13/2020 4093831 / / [id number] Explanted Type Area Meteorological Engineer Device Identifier Shelf Expiration Date Model / Serial / Lot Stim Spnl Cord Precision Spectra [id number] - [id number] Implanted:Qty : 1 on 05/20/2015 by Dee Casillas MD Explanted:Qty : 1 on 06/15/2016 by Dee Casillas MD Neuro Right: Spine Thoracic [employer]- NEURO MODULATION 05/02/2017 CT-1132 / / [id number] Infinity Set Screws Explanted:Qty : 2 on 08/12/2018 Screw N/A: Spine Cervical Anterior MEDTRONIC- NEUROSURGERY 4684769 / [id number] / Description:PER INVOICE Cover Edge 32 70cm 4x8 Fire Patrol Kit [id number] Implanted:Qty : 1 on 05/20/2015 by Dee Casillas MD Explanted:Qty : 1 on 06/15/2016 by Dee Casillas MD N/A: Spine Thoracic [employer] INC 02/11/2017 / [id number] / [id number] Set Screws X4, Blockers X4, And 2 Rods Explanted:Qty : 1 on 09/14/2017 by Dee Casillas MD N/A: Spine Cervical Anterior Insurance MEDICARE PART A AND B [employer] * Guarantor: KOJO MARINELLI Account Type Relation to Patient Date of Phone Billing Address Personal/Family [address] [place] [address] RX [facility] Medicare Part D Care Teams Energy Efficiency Engineer Relationship Specialty Start Date End Date Marsha Turner MD [address] [place] [address] PCP - General 06/12/20
--- OUTSIDE RECORDS SUMMARY | 2024-10-22 08:17 | XMS_ITS | Encounter Summary ---
Author Organization [facility] Address [address] [place] [address] Care Team Providers Care Strategic Consultant Name Role Phone Marsha Turner MD Primary Care Provider +1- [phone] Encounter Details Date Type Department Care Team (Latest Contact Info) Description 02/03/2008 Outpatient Historical [facility] [address] [place] [address] [facility] [address] [place] [address] Aliyah Lange, PA [address] [place] [address] Arthrodesis Status; Lumbago; Pain in [...] on file Legal Sex Male 6:16 AM INVESTMENT COUNSELOR Gender Identity Not on file Sexual Orientation Not on file documented as of this encounter Plan of Treatment Not on file documented as of this encounter Procedures Procedure Name Priority Date/Time Associated Diagnosis Comments XR LUMBAR SPINE 2 OR 3 VW Routine 02/06/2008 10:19 AM INVESTMENT COUNSELOR documented in this encounter Results * XR LUMBAR SPINE 2 OR 3 VW (02/06/2008 10:19 AM INVESTMENT COUNSELOR) Anatomical Region Laterality Modality Spine Other 02/06/2008 10:1 9 AM INVESTMENT COUNSELOR Narrative 02/06/2008 1:09 PM INVESTMENT COUNSELOR Exam: Spine - Lumbar Date/Time of Exam: [...] site documented in this encounter Care Teams Strategic Consultant Relationship Specialty Start Date End Date Marsha Turner MD [address] [place] [address] PCP - General Internal Medicine 05/31/12 documented as of this encounter
--- OUTSIDE RECORDS SUMMARY | 2024-10-22 08:17 | XMS_ITS | Encounter Summary ---
Author Organization [facility] Address [address] [place] [address] Care Team Providers Care Charter Coach Driver Name Role Phone Marsha Turner MD Primary Care Provider +1- [phone] Encounter Details Date Type Department Care Team (Latest Contact Info) Description 12/16/2007 Outpatient Historical [facility] Dee Casillas MD [address] [address] Brachial Neuritis or Radiculitis NOS Social History Tobacco Use Types Packs/Day Years Used Date Smoking Tobacco: Never Assessed Sex and Gender Information Value Date Recorded Sex Assigned at Not on file 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
--- OUTSIDE RECORDS SUMMARY | 2024-10-22 08:17 | XMS_ITS | Encounter Summary ---
Author Organization [facility] Address [address] [place] [address] Care Team Providers Care Infantryman Name Role Phone Marsha Turner MD Primary Care Provider +1- [phone] Encounter Details Date Type Department Care Team (Latest Contact Info) Description 06/25/2006 Outpatient [facility]astroenter[facility] [place] [address] Abilio Bagley MD [address] [place] [address] Abdominal Pain, Right Upper Quadrant (Primary Dx); Chronic Pancreatitis (CMS/HCC); Nonspecific Abnormal Results of Liver Function Study Social History Tobacco Use Types Packs/Day Years Used Date Smoking Tobacco: Never Assessed Sex and Gender Information Value Date Recorded Sex Assigned at Not on file Legal Sex Male 6:16 AM RN PRIOR AUTHORIZATION Gender Identity Not on file Sexual Orientation Not on file documented as of this encounter Plan of Treatment Not on file documented as of this encounter Visit Diagnoses Diagnosis Abdominal pain, right upper quadrant- Primary Chronic pancreatitis (CMS/HCC) Chronic pancreatitis Nonspecific abnormal results of liver function study documented in this encounter Care Teams Infantryman Relationship Specialty Start Date End Date Marsha Turner MD [address] [place] [address] PCP - General Internal Medicine 05/31/12 documented as of this encounter
--- OUTSIDE RECORDS SUMMARY | 2024-10-22 08:17 | XMS_ITS | Encounter Summary ---
Author Organization [facility] Address [address] [place] [address] Care Team Providers Care Billing Rep Name Role Phone Marsha Turner MD Primary Care Provider +1- [phone] Encounter Details Date Type Department Care Team (Late st Contact Info) Description 06/14/2006 Outpatient Historical [facility] [place] [address] [place] [id number] Thomas Mack MD NO ADDRESS ON FILE Slow Urinary Stream (Primary Dx) Social History Tobacco Use Types Packs/Day Years Used Date Smoking Tobacco: Never Assessed Sex and Gender Information Value Date Recorded Sex Assigned at Not on file Legal 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
--- OUTSIDE RECORDS SUMMARY | 2024-10-22 08:17 | XMS_ITS | Encounter Summary ---
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
--- OUTSIDE RECORDS SUMMARY | 2024-10-22 08:17 | XMS_ITS | Encounter Summary ---
Author Organization [facility] Address [address] [place] [address] Care Team Providers Care Furniture Stainer Name Role Phone Marsha Turner MD Primary Care Provider +1- [phone] Encounter Details Date Type Department Care Team (Latest Contact Info) Description 07/12/2006 Outpatient [facility] Gastroenterology[address] [place] [address] Abilio Bagley MD [address] [place] [address] Spasm Sphincter of Oddi (Primary Dx) Social History Tobacco Use Types Packs/Day Years Used Date Smoking Tobacco: Never Assessed Sex and Gender Information Value Date Recorded Sex Assigned at Not on file Legal 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
--- OUTSIDE RECORDS SUMMARY | 2024-10-22 08:18 | XMS_ITS | Encounter Summary ---
Author Organization [facility] Address [address] [place] [address] Care Team Providers Care Humanities Coordinator Name Role Phone Marsha Turner MD Primary Care Provider +1- [phone] Encounter Details Date Type Department Care Team (Late st Contact Info) Description 02/26/2005 Outpatient Historical [facility] Urology- [address]tr[address], [address] [place] [address] Thomas Mack MD NO ADDRESS ON FILE Malig emmett prostate (Primary Dx) Social History Tobacco Use Types Packs/Day Years Used Date Smoking Tobacco: Never Assessed Sex and Gender Information Value Date Recorded Sex Assigned at Not on file Legal Sex Male 6:16 AM WIRE CHIEF Gender Identity Not on file Sexual Orientation Not on file documented as of this encounter Plan of Treatment Not on file documented as of this encounter Visit Diagnoses Diagnosis Malig emmett prostate- Primary Malignant neoplasm of prostate documented in this encounter Care Teams Humanities Coordinator Relationship Specialty Start Date End Date Marsha Turner MD [address] [place] [address] PCP - General Internal Medicine 05/31/12 documented as of this encounter
--- OUTSIDE RECORDS SUMMARY | 2024-10-22 08:18 | XMS_ITS | Encounter Summary ---
Author Organization [facility] Address [address] [place] [address] Care Team Providers Care Carpenter Assistant Installer Name Role Phone Marsha Turner MD Primary Care Provider +1- [phone] Encounter Details Date Type Department Care Team (Late st Contact Info) Description 03/05/2008 Outpatient Historical [facility] [place] [address] [place] [address] Dee Casillas MD [address] [address] Social History Tobacco Use Types Packs/Day Years Used Date Smoking Tobacco: Never Assessed Sex and Gender Information Value Date Recorded Sex Assigned at Not on file Legal Sex Male 6:16 AM TOUR COUNSELOR Gender Identity Not on file Sexual Orientation Not on file documented as of this encounter Plan of Treatment Not on file documented as of this encounter Procedures Procedure Name Priority Date/Time Associated Diagnosis Comments XR CHEST PA OR AP 1 VW Routine 8 5:03 PM TOUR COUNSELOR URINALYSIS W/REFLEX MICROSCOPIC Stat 03/05/2008 4:54 PM TOUR COUNSELOR ABORH TYPING Stat 03/05/2008 4:20 PM TOUR COUNSELOR CBC WITH DIFFERENTIAL Stat 03/05/2008 4:20 PM TOUR COUNSELOR PROTIME-INR Stat 03/05/2008 4:20 PM TOUR COUNSELOR BLOOD BANK ANTIBODY SCREEN Stat 03/05/2008 4:20 PM TOUR COUNSELOR COMPREHENSIVE METABOLIC PANEL Stat 03/05/2008 4:20 PM TOUR COUNSELOR documented in this encounter Results * XR CHEST PA OR AP (03/05/2008 5:03 PM TOUR COUNSELOR) Anatomical Region Laterality Modality Chest Other 03/05/2008 5:03 PM TOUR COUNSELOR Narrative 03/06/2008 3:36 PM TOUR COUNSELOR Exam: Chest - PA Date/Time of Exam: [...] Result * (ABNORMAL) URINALYSIS (03/05/2008 4:54 PM TOUR COUNSELOR) LEUKOCYTE ESTERASE UA NEGATIVE NEGATIVE [facility] KETONES UA NEGATIVE NEGATIVE [facility] MICRO EXAM No No [facility] COLOR UA Yellow Straw [facility] PROTEIN UA NEGATIVE NEGATIVE [facility] BLOOD UA NEGATIVE NEGATIVE [facility] NITRITE UA NEGATIVE NEGATIVE [facility] UROBILINOGEN UA 1.0(A) 0.2 [facility] CLARITY UA Clear Clear [facility] SPECIFIC GRAVITY UA 1.010 <=1.005 [facility] GLUCOSE UA NEGATIVE NEGATIVE [facility] PH UA 7.0 5.0 - 9.0 [facility] BILIRUBIN UA NEGATIVE NEGATIVE [facility] Urine specimen (specimen) 03/05/2008 4:54 PM TOUR COUNSELOR 03/05/2008 4:54 PM TOUR COUNSELOR us Dee Casillas MD URINE ORDERABLES Final Result Performing Organization Address City/State/[facility] Co de Phone Number INTERFACE SYSTEM Refer to clinic/hospital department [facility] CLIA# [id number] [address] [place] [address] * (ABNORMAL) CBC WITH DIFFERENTIAL (03/05/2008 4:20 PM TOUR COUNSELOR) HEMOGLOBIN 11.6(L) 14.0 - 18.0 g/dL [facility] LYMPHOCYTES 15.1(L) 24.0 - 44.0 % [facility] LYMPHOCYTE ABSOLUTE 1.0(L) 1.2 - 4.0 K/ul [facility] WBC 6.4 4.8 - 10.8 K/ul [facility] MCH 30.4 27.0 - 34.0 pg [facility] MPV 9.1 8.9 - 12.8 Fl [facility] BASOPHILS ABSOLUTE 0.0 0.0 - 0.2 K/ul [facility] BASOPHILS 0.5 0.0 - 1.0 % [facility] MCHC 33.8 30.0 - 35.0 g/dL [facility] HEMATOCRIT 34.3(L) 41.0 - 53.0 % [facility] RDW 13.9 11.0 - 14.5 % [facility] MONOCYTE ABSOLUTE 0.6 0.1 - 0.6 K/ul [facility] MONOCYTES 9.6 2.0 - 10.0 % [facility] RBC 3.82(L) 4.60 - 6.20 Mil/ul [facility] NEUTROPHIL ABSOLUTE 4.6 2.0 - 8.0 K/ul [facility] NEUTROPHILS 72.9 42.2 - 75.2 % [facility] MCV 89.8 84.0 - 103.0 Fl [facility] EOSINOPHILS 1.9 0.0 - 7.0 % [facility] PLATELETS 221 140 - 440 K/ul [facility] EOSINOPHIL ABSOLUTE 0.1 0.0 - 0.7 K/ul [facility] Blood specimen (specimen) 03/05/2008 4:20 PM TOUR COUNSELOR 03/05/2008 4:30 PM TOUR COUNSELOR us Dee Casillas MD HEMATOLOGY ORDERABLES Final Resu lt INTERFACE SYSTEM Refer to clinic/hospital department [facility]# [id number] [address] [place] [address] * PROTIME-INR (03/05/2008 4:20 PM TOUR COUNSELOR) INR 1.0 [facility] Comment: Expected Values for INR: DVT/PE Goal INR 2.5; range 2.0 - 3.0 Valve Replacement Tissue Goal INR 2.5; range 2.0 - 3.0 Mechanical Goal INR 3.0; range 2.5 - 3.5 POST-ME Goal INR 2.5; range 2.0 - 3.0 or Goal 3.0; range 2.5 - 3.5 Atrial Fibrillation Goal INR 2.5; range 2.0 - 3.0 Ischemic Stroke Goal INR 2.5; range 2.0 - 3.0 For additional information see Guidelines for Anticoagulation available from the pharmacy Nichelle Mike [phone] PROTIME 14.0 12.8 - 15.8 Secs [facility] Comment:As of 2007 not e change in normal range. Blood specimen (specimen) 03/05/2008 4:20 PM TOUR COUNSELOR 03/05/2008 4:30 PM TOUR COUNSELOR us Dee Casillas MD HEMATOLOGY ORDERABLES Final Resu lt Performing Organization Address [facility] Phone Number INTERFACE SYSTEM Refer to clinic/hospital department [facility] CLIA# [id number] [address] [place] [address] * ANTIBODY SCREEN (03/05/2008 4:20 PM TOUR COUNSELOR) ANTIBODY SCREEN Negative [facility] Blood specimen (specimen) 03/05/2008 4:20 PM TOUR COUNSELOR 03/05/2008 4:30 PM TOUR COUNSELOR Dee Casillas MD BLOOD BANK ORDERABLES Final Resu lt Performing Organization Address [facility] Phone Number INTERFACE SYSTEM Refer to clinic/hospital department [facility] CLIA# [id number] [address] [place] [address] * ABORH TYPING (03/05/2008 4:20 PM TOUR COUNSELOR) ABO/RH TYPE A Positive [facility] Blood specimen (specimen) 03/05/2008 4:20 PM TOUR COUNSELOR 03/05/2008 4:30 PM TOUR COUNSELOR Dee Casillas MD BLOOD BANK ORDERABLES Final Resu lt Performing Organization Address [facility] Phone Number INTERFACE SYSTEM Refer to clinic/[facility] department [facility] CLIA# [id number] [address] [place] [address] * (ABNORMAL) COMPREHENSIVE METABOLIC PANEL (03/05/2008 4:20 PM TOUR COUNSELOR) ALBUMIN 4.4 3.5 - 5.0 g/dL [facility] POTASSIUM 3.9 3.5 - 5.0 mEq/L [facility] GLOBULIN (CALC) 2.6 2.4 - 3.9 g/dL [facility] CREATININE 0.9 0.7 - 1.5 mg/dL [facility] CALCIUM 9.2 8.4 - 10.5 mg/dL [facility] OSMOLALITY, CALCULATED 289 275 - 295 mOsm/Kg [facility] ALT 17 4 - 36 IU/L [facility] GLUCOSE 118(H) 70 - 110 mg/dL [facility] CHLORIDE 108 95 - 110 mEq/L [facility] ALBUMIN/GLOBULIN RATIO 1.7 1.0 - 2.3 [facility] ALKALINE PHOSPHATASE 71 25 - 100 U/L [facility] SODIUM 141 136 - 145 mEq/L [facility] BILIRUBIN TOTAL 0.3 0.3 - 1.2 mg/dL [facility] TOTAL PROTEIN 7.0 6.3 - 8.2 g/dL [facility] BUN 9 9 - 20 mg/dL [facility] AST 16 8 - 33 U/L [facility] CO2 27 22 - 32 mmol/l [facility] ANION GAP 10 9 - 20 mEq/L [facility] Blood specimen (specimen) 03/05/2008 4:20 PM TOUR COUNSELOR 03/05/2008 4:30 PM TOUR COUNSELOR us Dee Casillas MD CHEMISTRY ORDERABLES Final Resul t INTERFACE SYSTEM Refer to clinic/hospital department [facility] CLIA# [id number] [facility] [place] [address] documented in this encounter Visit Diagnoses Not on filedocumented in this encounter Care Teams Carpenter Assistant Installer Relationship Specialty Start Date End Date Marsha Turner MD [address] [place] [address] PCP - General Internal Medicine 05/31/12 documented as of this encounter
--- OUTSIDE RECORDS SUMMARY | 2024-10-22 08:18 | XMS_ITS | Encounter Summary ---
Author Organization [facility] Address [address] 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
--- OUTSIDE RECORDS SUMMARY | 2024-10-22 08:18 | XMS_ITS | Encounter Summary ---
Author Organization [facility] Address [address] [place] [address] Care Team Providers Care Academic Affairs Specialist Name Role Phone Marsha Turner MD Primary Care Provider +1- [phone] Encounter Details Date Type Department Care Team (Latest Contact Info) Description 09/28/2000 Outpatient Historical [facility] Medicine [address] [place] [address] Lakhwinder Mahmood MD Nonspecific abnormal results of liver function study (Primary Dx) Social History Tobacco Use Types Packs/Day Years Used Date Smoking Tobacco: Never Assessed Sex and Gender Information Value Date Recorded Sex Assigned at Not on file Legal Sex Male 6: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
--- OUTSIDE RECORDS SUMMARY | 2024-10-22 08:18 | XMS_ITS | Encounter Summary ---
Author Organization [facility] Address [address] [place] [address] Care Team Providers Care Financial Business Analyst Name Role Phone Marsha Turner MD Primary Care Provider +1- [phone] Encounter Details Date Type Department Care Team (Latest Contact Info) Description 10/05/2000 Outpatient Historical [facility] Medicine [address] [place] [address] Lakhwinder Mahmood MD Nonspecific abnormal finding in stool contents (Primary Dx) Social History Tobacco Use Types Packs/Day Years Used Date Smoking Tobacco: Never Assessed Sex and Gender Information Value Date Recorded Sex Assigned at Not on file Legal Sex Male 6:16 AM RANGE EXAMINER Gender Identity Not on file Sexual Orientation Not on file documented as of this encounter Plan of Treatment Not on file documented as of this encounter Visit Diagnoses Diagnosis Nonspecific abnormal finding in stool contents- Primary documented in this encounter Care Teams Financial Business Analyst Relationship Specialty Start Date End Date Marsha Turner MD [address] [place] [id number] PCP - General Internal Medicine 05/31/12 documented as of this encounter
--- OUTSIDE RECORDS SUMMARY | 2024-10-22 08:18 | XMS_ITS | Encounter Summary ---
Author Organization [facility] Address [address] [place] [address] Care Team Providers Care Potato Bucker Name Role Phone Marsha Turner MD Primary Care Provider +1- [phone] Encounter Details Date Type Department Care Team (Latest Contact Info) Description 03/11/1998 Outpatient Historical [facility] [address] [place] [address] Giovanni Corrigan MD [address] [place] [address] Coronary atherosclerosis of mcgrath coronary artery (Primary Dx) Social History Tobacco Use Types Packs/Day Years Used Date Smoking Tobacco: Never Assessed Sex and Gender Information Value Date Recorded Sex Assigned at Not on file Legal Sex Male 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
--- OUTSIDE RECORDS SUMMARY | 2024-10-22 08:18 | XMS_ITS | Encounter Summary ---
Author Organization [facility] Address [address] [place] [address] Care Team Providers Care Beauty Operator Apprentice Name Role Phone Marsha Turner MD Primary Care Provider +1- [phone] Encounter Details Date Type Department Care Team (Late st Contact Info) Description 10/16/2004 Outpatient Historical [facility] Urology- [address]tr[address], 3rd [place] [address] Thomas Mack MD NO ADDRESS ON FILE Malig emmett prostate (Primary Dx) Social History Tobacco Use Types Packs/Day Years Used Date Smoking Tobacco: Never Assessed Sex and Gender Information Value Date Recorded Sex Assigned at Not on file Legal Sex Male 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
--- OUTSIDE RECORDS SUMMARY | 2024-10-22 08:18 | XMS_ITS | Encounter Summary ---
Author Organization [facility] Address [address] [place] [address] Care Team Providers Care Controls Project Engineer Name Role Phone Marsha Turner MD Primary Care Provider +1- [phone] Encounter Details Date Type Department Care Team (Late st Contact Info) Description 03/05/2008 Outpatient [facility] [address] [facility] [address] [place] [address] Aaron Ayala MD [address] [place] [address] Malig Thierno Skin Face NEC Social History Tobacco Use Types Packs/Day Years Used Date Smoking Tobacco: Never Assessed Sex and Gender Information Value Date Recorded Sex Assigned at Not on file Legal Sex Male 6:16 AM CULINARY DIRECTOR Gender Identity Not on file Sexual Orientation Not on file documented as of this encounter Progress Notes * Elenita Lora - 03/07/2008 8:42 AM CSTQuick Note: Pt's notified of results, adq tx. Recheck 4 months. NARY DIRECTOR documented in this encounter Plan of Treatment Not on file documented as of this encounter Procedures Procedure Name Priority Date/Time Associated Diagnosis Comments PATHOLOGY Routine 03/05/2008 1:19 PM CULINARY DIRECTOR documented in this encounter Results * PATHOLOGY (03/05/2008 1:19 PM CULINARY DIRECTOR) PATHOLOGY/CYT OLOGY REPORT [facility] Anatomic Pathology Dept [facility] [address] Patient: LOGAN MARINELLI Accn No: [id number] Collected: 03/05/2008 1:19:00 PM DERMATOPATHOLOGY FINAL REPORT [...] in cassette A1. 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 There are some keratinocytes with atypical nuclear features, and there are scattered mitotic figures. 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
--- OUTSIDE RECORDS SUMMARY | 2024-10-22 08:18 | XMS_ITS | Encounter Summary ---
Author Organization [facility] Address [address] 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
--- OUTSIDE RECORDS SUMMARY | 2024-10-22 08:18 | XMS_ITS | Encounter Summary ---
Author Organization [facility] Address [address] 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
--- OUTSIDE RECORDS SUMMARY | 2024-10-22 08:18 | XMS_ITS | Encounter Summary ---
Author Organization [facility] Address [address] [place] [address] Care Team Providers Care Supervisor Special Effects Name Role Phone Marsha Turner MD Primary Care Provider +1- [phone] Encounter Details Date Type Department Care Team (Late st Contact Info) Description 06/14/[address] 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
--- OUTSIDE RECORDS SUMMARY | 2024-10-22 08:18 | XMS_ITS | Encounter Summary ---
Author Organization [facility] Address [address] [place] [address] Care Team Providers Care Electric Accounting Machine Operator Name Role Phone Marsha Turner MD Primary Care Provider +1- [phone] Encounter Details Date Type Department Care Team (Late st Contact Info) Description 05/24/2004 Inpatient Historical [facility] IN BED Marj Hardy MD NO ADDRESS ON FILE ASTHMA UNSPECIFIED (Primary Dx) Social History Tobacco Use Types Packs/Day Years Used Date Smoking Tobacco: Never Assessed Sex and Gender Information Value Date Recorded Sex Assigned at Not on file Legal Sex Male 6:16 AM VIDEO JOURNALIST Gender Identity Not on file Sexual Orientation Not on file documented as of this encounter Plan of Treatment Not on file documented as of this encounter Procedures Procedure Name Priority Date/Time Associated Diagnosis Comments PSA MEDICARE SCREEN Routine 05/28/2004 8 :26 AM VIDEO JOURNALIST URINALYSIS MICROSCOPY ONLY Routine 05/27/2004 8:51 PM VIDEO JOURNALIST URINALYSIS W/REFLEX MICROSCOPIC Routine 05/27/2004 8:51 PM VIDEO JOURNALIST CBC WITH DIFFERENTIAL Routine 05/26/2004 5:07 AM VIDEO JOURNALIST TSH Routine 05/26/2004 5:07 AM VIDEO JOURNALIST LIPID PANEL Routine 05/26/2004 5:07 AM VIDEO JOURNALIST BASIC METABOLIC PANEL Routine 05/26/2004 5:07 AM VIDEO JOURNALIST URINALYSIS MICROSCOPY ONLY Routine 05/25/2004 2:02 PM VIDEO JOURNALIST URINALYSIS W/REFLEX MICROSCOPIC Routine 05/25/2004 2:02 PM VIDEO JOURNALIST PTT Routine 05/25/2004 5:41 AM VIDEO JOURNALIST CBC WITHOUT DIFFERENTIAL Routine 05/25/2004 5:41 AM VIDEO JOURNALIST CARDIAC ENZYMES Routine 05/25/2004 3:42 AM VIDEO JOURNALIST CARDIAC ENZYMES Routine 05/24/2004 9:06 PM VIDEO JOURNALIST URINALYSIS MICROSCOPY ONLY Routine 05/24/2004 5:22 PM VIDEO JOURNALIST URINALYSIS W/REFLEX MICROSCOPIC Routine 05/24/2004 5:22 PM VIDEO JOURNALIST CARDIAC ENZYMES Routine 05/24/2004 3:18 PM VIDEO JOURNALIST PTT Routine 05/24/2004 3:18 PM VIDEO JOURNALIST DRUG SCREEN, URINE Routine 05/24/2004 10 :52 AM VIDEO JOURNALIST D-DIMER Routine 05/24/2004 9:30 AM VIDEO JOURNALIST documented in this encounter Results * PSA MEDICARE SCREEN (05/28/2004 8:26 AM VIDEO JOURNALIST) PSA 2.8 0.0 - 4.0 ng/mL INTERFACE SYSTEM Comment:Results for patients receiving treatment must be evaluated individually by the physician. 05/28/2004 8:26 AM VIDEO JOURNALIST us Marj Hardy MD CHEMISTRY ORDERABLES COM Final Result INTERFACE SYSTEM Refer to clinic/hospital department * (ABNORMAL) URINALYSIS (05/27/2004 8:51 PM VIDEO JOURNALIST) COLOR UA Yellow Straw INTERFACE SYSTEM CLARITY [...] Yes(A) No INTERFACE SYSTEM 05/27/2004 8:51 PM VIDEO JOURNALIST Thomas Mack MD URINE ORDERABLES Final Result Performing Organization Address [facility] Co de Phone Number INTERFACE SYSTEM Refer to clinic/hospital department * URINALYSIS MICROSCOPY ONLY (05/27/2004 8:51 PM VIDEO JOURNALIST) WBC URINE None Seen 0 - 2 INTERFACE SYSTEM RBC UA None Seen 0 - 2 INTERFACE SYSTEM HYALINE CAST 0-2 0 - 2 INTERFA CE SYSTEM 05/27/2004 8:51 PM VIDEO JOURNALIST Thomas Mack MD URINE ORDERABLES Final Result Performing Organization Address [facility] Phone Number INTERFACE SYSTEM Refer to clinic/hospital department * (ABNORMAL) CBC WITH DIFFERENTIAL (05/26/2004 5:07 AM VIDEO JOURNALIST) WBC 3.7(L) 4.8 - 10.8 K/ul INTERFACE [...] 0.2 K/ul INTERFACE SYSTEM 05/26/2004 5:07 AM VIDEO JOURNALIST Marj Hardy MD HEMATOLOGY ORDERABLES Final Re sult Performing Organization Address [facility] de Phone Number INTERFACE SYSTEM Refer to clinic/hospital department * (ABNORMAL) TSH (05/26/2004 5:07 AM VIDEO JOURNALIST) TSH <0.03(L) 0.49 - 4.67 uIU/ml INTERFACE SYSTEM 05/26/2004 5:07 AM VIDEO JOURNALIST Marj Hardy MD CHEMISTRY ORDERABLES Final Res ult Performing Organization Address [facility] Co de Phone Number INTERFACE SYSTEM Refer to clinic/hospital department * (ABNORMAL) BASIC METABOLIC PANEL (05/26/2004 5:07 AM VIDEO JOURNALIST) GLUCOSE 167(H) 70 - 110 mg/dL INTERFACE [...] 10.5 mg/dL INTERFACE SYSTEM 05/26/2004 5:07 AM VIDEO JOURNALIST Result [facility] Marj Hardy MD CHEMISTRY ORDERABLES Final Res ult Performing Organization Address [facility] Phone Number INTERFACE SYSTEM Refer to clinic/hospital department * (ABNORMAL) LIPID PANEL (05/26/2004 5:07 AM VIDEO JOURNALIST) CHOLESTEROL 120 75 - 200 mg/dL INTERFACE SYSTEM TRIGLYCERIDE 66 0 - 200 mg/dL INTERFACE SYSTEM CALCULATED TOTAL CHOLESTEROL TO HDL RATIO 2.93(L) 3.43 - 4.97 INTERFACE SYSTEM HDL 41 40 - 60 mg/dL INTERFACE SYSTEM LDL CALCULATED 66 0 - 130 mg/dL INTERFACE SYSTEM 05/26/2004 5:07 AM VIDEO JOURNALIST Result [facility] Marj Hardy MD CHEMISTRY ORDERABLES Final Res ult Performing Organization Address [facility] Phone Number INTERFACE SYSTEM Refer to clinic/hospital department * (ABNORMAL) URINALYSIS (05/25/2004 2:02 PM VIDEO JOURNALIST) COLOR UA Yellow Straw INTERFACE SYSTEM CLARITY [...] Yes(A) No INTERFACE SYSTEM 05/25/2004 2:02 PM VIDEO JOURNALIST Result [facility] Marj Hardy MD URINE ORDERABLES Final Result Performing Organization Address [facility] Phone Number INTERFACE SYSTEM Refer to clinic/hospital department * (ABNORMAL) URINALYSIS MICROSCOPY ONLY (05/25/2004 2:02 PM VIDEO JOURNALIST) WBC URINE 0-2 0 - 2 INTERFACE SYSTEM RBC UA 3-5(A) 0 - 2 INTERFACE SYSTEM HYALINE CAST None Seen 0 - 2 INTERFA CE SYSTEM BACTERIA UA None Seen None Seen INTERFAC E SYSTEM 05/25/2004 2:02 PM VIDEO JOURNALIST Marj Hardy MD URINE ORDERABLES Final Result Performing Organization Address [facility] de Phone Number INTERFACE SYSTEM Refer to clinic/hospital department * (ABNORMAL) PTT (05/25/2004 5:41 AM VIDEO JOURNALIST) PTT 47.8(H) 24.3 - 37.5 Secs INTERFACE SYSTEM Comment:Therapeutic Range: 05/25/2004 5:41 AM VIDEO JOURNALIST Marj Hardy MD HEMATOLOGY ORDERABLES Final Re sult Performing Organization Address [facility] de Phone Number INTERFACE SYSTEM Refer to clinic/hospital department * (ABNORMAL) CBC WITHOUT DIFFERENTIAL (05/25/2004 5:41 AM VIDEO JOURNALIST) WBC 4.5(L) 4.8 - 10.8 K/ul INTERFACE [...] 0.2 K/ul INTERFACE SYSTEM 05/25/2004 5:41 AM VIDEO JOURNALIST Result Jennifer Hardy MD HEMATOLOGY ORDERABLES Final Re sult Performing Organization Address [facility] Co de Phone Number INTERFACE SYSTEM Refer to clinic/hospital department * CARDIAC ENZYMES (05/25/2004 3:42 AM VIDEO JOURNALIST) CKMB 0.7 0.0 - 5.5 ng/mL INTERFACE SYSTEM TROPONIN I 0.0 0.0 - 1.5 ng/mL INTERFACE SYSTEM Comment: Expected Range: Normal 0.0 - 1.5 ng/ml Borderline 1.6 - 4.4 ng/ml Positive > = 4.5 ng/ml 05/25/2004 3:42 AM VIDEO JOURNALIST Result Jennifer Hardy MD CHEMISTRY ORDERABLES Final Res ult Performing Organization Address [facility] Co de Phone Number INTERFACE SYSTEM Refer to clinic/hospital department * CARDIAC ENZYMES (05/24/2004 9:06 PM VIDEO JOURNALIST) CKMB <0.7 0.0 - 5.5 ng/mL INTERFACE SYSTEM TROPONIN I 0.0 0.0 - 1.5 ng/mL INTERFACE SYSTEM Comment: Expected Range: Normal 0.0 - 1.5 ng/ml Borderline 1.6 - 4.4 ng/ml Positive > = 4.5 ng/ml 05/24/2004 9:06 PM VIDEO JOURNALIST Result Jennifer Hardy MD CHEMISTRY ORDERABLES Final Res ult Performing Organization Address [facility] Phone Number INTERFACE SYSTEM Refer to clinic/hospital department * (ABNORMAL) URINALYSIS (05/24/2004 5:22 PM VIDEO JOURNALIST) COLOR UA Yellow Straw INTERFACE SYSTEM CLARITY [...] Yes(A) No INTERFACE SYSTEM 05/24/2004 5:22 PM VIDEO JOURNALIST Marj Hardy MD URINE ORDERABLES Final Result Performing Organization Address [facility] Phone Number INTERFACE SYSTEM Refer to clinic/hospital department * (ABNORMAL) URINALYSIS MICROSCOPY ONLY (05/24/2004 5:22 PM VIDEO JOURNALIST) WBC URINE 0-2 0 - 2 INTERFACE SYSTEM RBC UA >80(A) 0 - 2 INTERFACE SYSTEM HYALINE CAST None Seen 0 - 2 INTERFA CE SYSTEM BACTERIA UA None Seen None Seen INTERFAC E SYSTEM 05/24/2004 5:22 PM VIDEO JOURNALIST Marj Hardy MD URINE ORDERABLES Final Result Performing Organization Address [facility] Phone Number INTERFACE SYSTEM Refer to clinic/hospital department * CARDIAC ENZYMES (05/24/2004 3:18 PM VIDEO JOURNALIST) CKMB 0.7 0.0 - 5.5 ng/mL INTERFACE SYSTEM TROPONIN I 0.0 0.0 - 1.5 ng/mL INTERFACE SYSTEM Comment: Expected Range: Normal 0.0 - 1.5 ng/ml Borderline 1.6 - 4.4 ng/ml Positive > = 4.5 ng/ml 05/24/2004 3:18 PM VIDEO JOURNALIST Result [facility] Marj Hardy MD CHEMISTRY ORDERABLES Final Res ult Performing Organization Address [facility] Phone Number INTERFACE SYSTEM Refer to clinic/hospital department * (ABNORMAL) PTT (05/24/2004 3:18 PM VIDEO JOURNALIST) PTT 75.3(H) 24.3 - 37.5 Secs INTERFACE SYSTEM Comment:Therapeutic Range: 05/24/2004 3:18 PM VIDEO JOURNALIST Result [facility] Marj Hardy MD HEMATOLOGY ORDERABLES Final Re sult Performing Organization Address [facility] Phone Number INTERFACE SYSTEM Refer to clinic/hospital department * (ABNORMAL) DRUG SCREEN, URINE (05/24/2004 10:52 AM VIDEO JOURNALIST) OPIATE QUAL, URINE Drug Positive(A) Drug Negative [...] Negative INTERFACE SYSTEM 05/24/2004 10:5 2 AM VIDEO JOURNALIST Result Jennifer Hardy MD URINE ORDERABLES Final Result Performing Organization Address [facility] Phone Number INTERFACE SYSTEM Refer to clinic/hospital department * (ABNORMAL) D-DIMER (05/24/2004 9:30 AM VIDEO JOURNALIST) D-DIMER QUANT 2.0(H) 0.0 - 0.5 mcg/mL INTERFACE SYSTEM 05/24/2004 9:30 AM VIDEO JOURNALIST Result Jennifer Hardy MD HEMATOLOGY ORDERABLES Final Re sult Performing Organization Address [facility] de Phone Number INTERFACE SYSTEM Refer to clinic/hospital department documented in this encounter Visit Diagnoses Diagnosis Unspecified asthma(493.90)- Primary Unspecified asthma documented in this encounter Care Teams Electric Accounting Machine Operator Relationship Specialty Start Date End Date Marsha Turner MD [address] [place] [address] PCP - General Internal Medicine 05/31/12 documented as of this encounter
--- OUTSIDE RECORDS SUMMARY | 2024-10-22 08:18 | XMS_ITS | Encounter Summary ---
Author Organization [facility] Address [address] [place] [address] Care Team Providers Care Collarette Separator Name Role Phone Marsha Turner MD Primary Care Provider +1- [phone] Encounter Details Date Type Department Care Team (Late st Contact Info) Description 03/05/2008 Outpatient Historical [facility] DEFAULT DEPARTMENT Dee Casillas MD [address] [phone] Social History Tobacco Use Types Packs/Day Years Used Date Smoking Tobacco: Never Assessed Sex and Gender Information Value Date Recorded Sex Assigned at Not on file Legal Sex Male 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
--- OUTSIDE RECORDS SUMMARY | 2024-10-22 08:18 | XMS_ITS | Encounter Summary ---
Author Organization [facility] Address [address] [place] [address] Care Team Providers Care Clinical Assessment Manager Name Role Phone Marsha Turner MD Primary Care Provider +1- [phone] Encounter Details Date Type Department Care Team (Latest Contact Info) Description 05/05/2005 Outpatient [facility] Gastroenterology[address] [place] [address] Abilio Bagley MD [address] [place] [address] CHEST PAIN NOS (Primary Dx); STOMACH FUNCTION DIS NEC; DYSPHAGIA Social History Tobacco Use Types Packs/Day Years Used Date Smoking Tobacco: Never Assessed Sex and Gender Information Value Date Recorded Sex Assigned at Not on file Legal Sex Male 6: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
--- OUTSIDE RECORDS SUMMARY | 2024-10-22 08:18 | XMS_ITS | Encounter Summary ---
Author Organization [facility] Address [address] [place] [address] Care Team Providers Care Operating Room Technologist Name Role Phone Marsha Turner MD Primary Care Provider +1- [phone] Encounter Details Date Type Department Care Team (Late st Contact Info) Description 10/08/2004 Outpatient Historical [facility] [address] [place] [phone] Thomas Mack MD NO ADDRESS ON FILE MALIGN NEOPL PROSTATE (CMS/HCC) (Primary Dx) Social History Tobacco Use Types Packs/Day Years Used Date Smoking Tobacco: Never Assessed Sex and Gender Information Value Date Recorded Sex Assigned at Not on file Legal Sex Male 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
--- OUTSIDE RECORDS SUMMARY | 2024-10-22 08:18 | XMS_ITS | Encounter Summary ---
Author Organization [facility] Address [address] [place] [address] Care Team Providers Care Oyster Sorter Name Role Phone Marsha Turner MD Primary Care Provider +1- [phone] Encounter Details Date Type Department Care Team (Late st Contact Info) Description 12/09/2004 Outpatient Historical [facility] Urology- [address] Entr[address] B, 3[address] [place] [phone] Thomas Mack MD NO ADDRESS ON FILE Malig emmett prostate (Primary Dx); DYSURIA; Slow urinary stream Social History Tobacco Use Types Packs/Day Years Used Date Smoking Tobacco: Never Assessed Sex and Gender Information Value Date Recorded Sex Assigned at Not on file 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
--- OUTSIDE RECORDS SUMMARY | 2024-10-22 08:18 | XMS_ITS | Encounter Summary ---
Author Organization [facility] Address [address] [place] [address] Care Team Providers Care Sports Lawyer Name Role Phone Marsha Turner MD Primary Care Provider +1- [phone] Encounter Details Date Type Department Care Team (Late st Contact Info) Description 08/26/2004 Outpatient Historical [facility] Urology- [address] Entrance B, 3rd [place] [phone] Thomas Mack MD NO ADDRESS ON FILE CHRONIC PROSTATITIS (Primary Dx); FAMILY HX-PROSTATIC MALIGNANCY Social History Tobacco Use Types Packs/Day Years Used Date Smoking Tobacco: Never Assessed Sex and Gender Information Value Date Recorded Sex Assigned at Not on file Legal Sex Male 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
--- OUTSIDE RECORDS SUMMARY | 2024-10-22 08:18 | XMS_ITS | Encounter Summary ---
Author Organization [facility] Address [address] [place] [address] Care Team Providers Care Toll Test Worker Name Role Phone Marsha Turner MD Primary Care Provider +1- [phone] Encounter Details Date Type Department Care Team (Late st Contact Info) Description 09/12/2004 Outpatient Historical [facility] Urology- [address] Entr[address] B, 3rd [place] [phone] Thomas Mack MD NO ADDRESS ON FILE Elevated PSA (Primary Dx) Social History Tobacco Use Types Packs/Day Years Used Date Smoking Tobacco: Never Assessed Sex and Gender Information Value Date Recorded Sex Assigned at Not on file 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
--- OUTSIDE RECORDS SUMMARY | 2024-10-22 08:18 | XMS_ITS | Encounter Summary ---
Author Organization [facility] Address [address] [place] [address] Care Team Providers Care Taker Off Braker Machine Name Role Phone Marsha Turner MD Primary Care Provider +1- [phone] Encounter Details Date Type Department Care Team (Latest Contact Info) Description 12/31/2003 Outpatient Historical [facility] Cardiac Drum Straightener [address] [place] [address] Hosea Wilson MD [address] [facility] [address] [place] [address] CORON ATHEROSCL KAKE CORON VESSEL (Primary Dx) Social History Tobacco Use Types Packs/Day Years Used Date Smoking Tobacco: Never Assessed Sex and Gender Information Value Date Recorded Sex Assigned at Not on file Legal 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
--- OUTSIDE RECORDS SUMMARY | 2024-10-22 08:18 | XMS_ITS | Encounter Summary ---
Author Organization [facility] Address [address] [place] [address] Care Team Providers Care Port Cdl A Driver Name Role Phone Marsha Turner MD Primary Care Provider +1- [phone] Encounter Details Date Type Department Care Team (Late st Contact Info) Description 03/05/2008 Outpatient Historical HIS IN BED Dee Casilals MD [address] [address] Social History Tobacco Use Types Packs/Day Years Used Date Smoking Tobacco: Never Assessed Sex and Gender Information Value Date Recorded Sex Assigned at Not on file Legal Sex Male 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 Gender Identity Not on file Sexual Orientation Not on file documented as of this encounter Plan of Treatment Not on file documented as of this encounter Procedures Procedure Name Priority Date/Time Associated Diagnosis Comments POC GLUCOSE Routine 03/16/2008 1:37 PM SHEET METAL JOURNEYMAN POC GLUCOSE Routine 03/16/2008 9:28 AM SHEET METAL JOURNEYMAN documented in this encounter Results * (ABNORMAL) POC GLUCOSE (03/16/2008 1:37 PM SHEET METAL JOURNEYMAN) GLUCOSE POC 115(H) 60 - 100 mg/dL [facility] Comment:POC Glucose - waived testing: CLIA #[id number] Venous blood specimen (specimen) 03/16/2008 1:37 PM SHEET METAL JOURNEYMAN 03/17/2008 2:21 AM SHEET METAL JOURNEYMAN Dee Casillas MD POINT OF CARE TESTING Final Resu lt Performing Organization Address [email or web address] de Phone Number INTERFACE SYSTEM Refer to clinic/hospital department [facility] CLIA# [id number] [address] [place] [address] * (ABNORMAL) POC GLUCOSE (03/16/2008 9:28 AM SHEET METAL JOURNEYMAN) GLUCOSE POC 132(H) 60 - 100 mg/dL [facility] Comment:POC Glucose - waived testing: CLIA #[id number] Venous blood specimen (specimen) 03/16/2008 9:28 AM SHEET METAL JOURNEYMAN 03/17/2008 1:24 AM SHEET METAL JOURNEYMAN Dee Casillas MD POINT OF CARE TESTING Final Resu lt Performing Organization Address [email or web address] de Phone Number INTERFACE SYSTEM Refer to clinic/hospital department [facility] CLIA# [id number] [address] [place] [address] documented in this encounter Visit Diagnoses Not on filedocumented in this encounter Care Teams Port Cdl A Driver Relationship Specialty Start Date End Date Marsha Turner MD [address] [place] [id number] PCP - General Internal Medicine 05/31/12 documented as of this encounter
--- OUTSIDE RECORDS SUMMARY | 2024-10-22 08:18 | XMS_ITS | Encounter Summary ---
Author Organization [facility] Address [address] 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
--- OUTSIDE RECORDS SUMMARY | 2024-10-22 08:18 | XMS_ITS | Encounter Summary ---
Author Organization [facility] Address [address] [place] [address] Care Team Providers Care Clothes Drier Assembler Name Role Phone Marsha Turner MD Primary Care Provider +1- [phone] Encounter Details Date Type Department Care Team (Late st Contact Info) Description 09/12/2004 Outpatient Historical [facility] [place] [address] 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
--- OUTSIDE RECORDS SUMMARY | 2024-10-22 08:18 | XMS_ITS | Encounter Summary ---
Author Organization [facility] Address [address] 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
--- OUTSIDE RECORDS SUMMARY | 2024-10-22 08:18 | XMS_ITS | Encounter Summary ---
Author Organization [facility] Address [address] [place] [address] Care Team Providers Care Gas Turbine Powerplant Mechanic Name Role Phone Marsha Turner MD Primary Care Provider +1- [phone] Encounter Details Date Type Department Care Team (Late st Contact Info) Description 09/26/2004 Outpatient Historical [facility] Urology- [address] Entrance B, 3rd [place] [id number] Thomas Mack MD NO ADDRESS ON FILE Malig emmett prostate (Primary Dx) Social History Tobacco Use Types Packs/Day Years Used Date Smoking Tobacco: Never Assessed Sex and Gender Information Value Date Recorded Sex Assigned at Not on file Legal Sex Male 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
[2024-10-22 08:19] VITALS: BP 193/89; PULSE 72; RESP 16; TEMP 36.7; O2SAT 94; BMI 34.4
--- NOTE | 2024-10-22 08:30 | CTR_ITS ---
PROCEDURE INFORMATION: Exam: CT Abdomen And Pelvis With Contrast Exam date and time: 10/22/2024 8:45 AM Age: 78 years old Clinical indication: Nausea and vomiting; Abdominal pain; Prior surgery; Surgery date: 6+ months; Surgery type: Prostate, spine, gb, appy; Additional info: Abd pain TECHNIQUE: Imaging protocol: Computed tomography of the abdomen and pelvis with contrast. Radiation optimization: All CT scans at this facility use at least one of these dose optimization techniques: automated exposure control; mA and/or kV adjustment per patient size (includes targeted exams where dose is matched to clinical indication); or iterative reconstruction. Contrast material: OMNI 350; Contrast volume: 100 ml; Contrast route: INTRAVENOUS (IV); COMPARISON: CT chest abdpel w/*[id number] 08/14/2024 9:12 AM RADIATION DOSE METRICS: Total DLP (mGy-cm): 1143.88 FINDINGS: Lungs: The included portions of the lung bases are clear. Liver: The liver is unremarkable. Gallbladder and biliary ducts: Patient has undergone previous cholecystectomy. There is no biliary ductal dilatation. Pancreas: There is no pancreatic mass or ductal dilatation. Spleen: The spleen is unremarkable. Adrenal glands: The adrenal glands are normal. Kidneys and ureters: There is a cyst emanating from the upper pole of the left kidney. There is another cyst emanating from the posterior left kidney . These do not need follow-up. There is renal or ureteral calculus. Stomach and bowel: The colon is markedly distended The transverse colon is most prominently distended measuring 9.3 cm. There is no wall thickening involving . The colon wall is not thickened and there is no pericolonic fat stranding. There is no pneumatosis. Haustra appear to be maintained in the majority of the colon though appear somewhat shallow in the transverse colon There is a focal area in the distal descending colon which appears decompressed however there is distension of the sigmoid colon distal to this area and likely this represents an area of peristalsis rather than fixed obstruction. Though a partial obstruction here can not be excluded. This is seen on series 3, image 44 small bowel loops are not dilated. Appendix: No evidence of appendicitis. Intraperitoneal space: There is [id number] free fluid in the pelvis without organized fluid collection Vasculature: Unremarkable. No abdominal aortic aneurysm. Lymph nodes: Unremarkable. No enlarged lymph nodes. Urinary bladder: There is mild wall thickening involving the bladder. There is some free fluid in the pelvis. There is no organized fluid collection. Reproductive: Patient has a penile implant with reservoir in the inferior left pelvis . The prostate gland appears mildly prominent Bones/joints: Evaluation of the pelvis is limited due to artifact from patient's bilateral hip prostheses. Patient has undergone extensive spinal fusion surgery extending from at least T9 through the sacrum. Patient has undergone decompression laminectomies. There is fluid in the laminectomy sites likely sterile postop fluid and present previously and actually decreased compared with the prior Soft tissues: There is a small umbilical hernia containing only fat. . CT/CT abdomen pelvis w con* [id number] IMPRESSION: 1. Marked distension of the colon with gas and stool. The transverse colon is most significantly distended at 9.3 mm. At this point in time, there is no colon wall thickening or pericolonic fat stranding and there is no pneumatosis. 2. Area of narrowing in the distal descending colon. While this could be an area of mechanical obstruction, the sigmoid colon is dilated distal to it. The possibility of a partial obstruction here can not be excluded but is favored to more likely represent peristaltic narrowing 3. Some free fluid in the pelvis without organized fluid collection 4. Wall thickening bladder 5. Mildly enlarged prostate gland 6. Bilateral renal cysts. 7. Previous cholecystectomy. 8. Previous extensive spine surgery and bilateral total hip replacements COMMENTS: Consistent with the [employer]'s Incidental Findings Committee white paper (J Am Juli Radiol 2018): Any incidental renal lesion less than 1 cm or classified as too small to characterize, or any incidental cystic renal lesion characterized as simple-appearing, is likely benign. No follow-up imaging is recommended for these lesions per consensus recommendations based on imaging criteria.
--- NOTE | 2024-10-22 08:30 | XRR_ITS ---
PROCEDURE INFORMATION: Exam: XR Chest Exam date and time: 10/22/2024 8:33 AM Age: 78 years old Clinical indication: Condition or disease; Other: HTN; Prior surgery; Surgery date: 6+ months; Surgery type: C, t, lspine fusion TECHNIQUE: Imaging protocol: Radiologic exam of the chest. Views: 1 view. COMPARISON: CR XR chest 1V portable [id number] 10/11/2024 11:56 AM FINDINGS: Tubes, catheters and devices: There is a right jugular Port-A-Cath with its tip projecting in the region of the distal superior vena cava. Lungs: The lungs are clear. Pleural spaces: Unremarkable. No pleural effusion. No pneumothorax. Heart/Mediastinum: The heart is enlarged as before Bones/joints: Patient has undergone previous anterior posterior cervical thoracic fusion and previous posterior thoracolumbar fusion not included in its entirety. Gastrointestinal tract: There is gaseous distension of the colon in the upper abdomen. XR/XR chest 1V portable [id number] IMPRESSION: 1. Previous spinal fusion surgery. 2. Port-A-Cath 3. Negative for acute findings
--- NOTE | 2024-10-22 08:33 | W.ED.DIZZY ---
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 States he feels like he is going to pass out he has also had some lower abdominal pain. He denies any headache denies any chest pain denies any worse improving factors. Associated symptoms: Reports malaise; Denies chest pain, chills, headache(s), nausea or vomiting Related Data Home Medications ?Medication ?Instructions ?Recorded ?Confirmed nitroglycerin 0.4 mg sublingual 0.4 mg sublingual Q5M PRN Chest 12/22/22 10/22/24 tablet (Nitrostat) Pain liothyronine 5 mcg tablet 5 mcg PO BID 04/01/23 10/22/24 oxybutynin chloride 5 mg 5 mg PO DAILY 10/22/23 10/22/24 tablet,extended release 24 hr bumetanide 2 mg tablet 2 mg PO BID PRN Edema 11/30/23 10/22/24 carvedilol 12.5 mg tablet 12.5 mg PO DAILY 05/05/24 10/22/24 acetaminophen 500 mg capsule 1,000 mg PO TID PRN Pain 08/17/24 10/22/24 hydralazine 50 mg tablet 50 mg PO TID 08/17/24 10/22/24 potassium chloride 10 mEq 20 meq PO BID PRN while on 08/17/24 10/22/24 tablet,extended release Bumetanide levothyroxine 150 mcg tablet 150 mcg PO DAILY 10/11/24 10/22/24 (Synthroid) lidocaine-prilocaine 2.5 %-2.5 % 1 applic topical PRN PRN port 10/11/24 10/22/24 topical cream access lorazepam 0.5 mg tablet 0.25 - 0.5 mg PO TID PRN nausea 10/11/24 10/22/24 and vomiting pregabalin 25 mg capsule 25 mg PO BID 10/11/24 10/22/24 sennosides 8.6 mg-docusate sodium 1 tab PO DAILY PRN Constipation 10/22/24 10/22/24 50 mg tablet (Stool Softener-Laxative) Previous Rx's ?Medication ?Instructions ?Recorded MARK BRACE #1 ea 08/01/20 Modification to AFO Brace to the #1 ea 02/02/22 left apixaban 5 mg tablet (Eliquis) 5 mg PO BID@0900,2100 #60 tabs 11/12/22 Held on 08/16/24. Instructions: Resume on 08/17/24. amiodarone 200 mg tablet (Pacerone) 200 mg PO DAILY #30 tabs 02/19/23 atorvastatin 40 mg tablet 40 mg PO BEDTIME #90 tabs 08/10/23 isosorbide mononitrate 30 mg 60 mg (2 x 30 mg) PO BEDTIME #180 01/28/24 tablet,extended release 24 hr tabs omeprazole 40 mg capsule,delayed 40 mg PO QAM #90 caps 06/22/24 release prednisone 10 mg tablet 10 mg PO DAILY #90 tabs 06/22/24 hydromorphone 2 mg tablet 1 mg (1/2 x 2 mg) PO Q8H PRN pain 08/18/24 (Dilaudid) 30 days #25 tabs ondansetron HCl 4 mg tablet 8 mg (2 x 4 mg) PO Q8H PRN nausea 09/28/24 and vomiting #90 tabs prochlorperazine maleate 10 mg 10 mg PO Q6H PRN nausea and 09/28/24 tablet (Compazine) vomiting #30 tabs olanzapine 2.5 mg tablet (Zyprexa) 2.5 mg PO DAILY #60 tabs 10/19/24 polyethylene glycol 3350 17 gram 17 g PO DAILY PRN constipation #14 10/22/24 oral powder packet (Miralax) ea Allergies Allergy/AdvReac Type Severity Reaction Status Date / Time adhesive tape Allergy tears skin Verified 10/19/24 10:30 off metoclopramide (From Reglan) Allergy Unknown Verified 10/19/24 10:30 morphine Allergy ALGY-Hives Verified 10/19/24 10:30 tamsulosin (From Flomax) Allergy ADR/ALGY-Hy Verified 10/19/24 10:30 potension zolpidem (From Ambien) Allergy Unknown Verified 10/19/24 10:30 hydrocodone AdvReac Mild Hypotension Verified 10/19/24 10:30 oxycodone AdvReac Mild Hypotension Verified 10/19/24 10:30 Review of Systems Const: Reports: fatigue and malaise; Denies: fever(s), chills, body aches or change in appetite Eyes: Denies: blurry vision or eye discomfort ENMT: Denies: throat pain or dental pain Card: Denies: chest pain Resp: Denies: dyspnea GI: Reports: abdominal pain; Denies: nausea, vomiting or diarrhea : Denies: dysuria Musc: Denies: neck pain or back pain Skin/Breast: Denies: rash Neuro: Denies: headache(s) PFSH ED PFSH: Medical History Hypothyroid ADAMS (dyspnea on exertion) Atrial fibrillation Ascending aortic aneurysm Patient had a CT of the chest on 07/14/2023. The ascending aorta was found to be 4.0 cm in diameter. Essentially unchanged CHF (congestive heart failure), NYHA class III EF 10/2022 43% on stress test, 50% on echo HTN (hypertension) Other iron deficiency anemias Anemia High risk medication use prednisone and leflunomide 12/2022 Peripheral arterial disease Chronic anticoagulation eliquis Unstable angina CAD (coronary artery disease) Seroma, postoperative Spinal stenosis, thoracic Degenerative disc disease, thoracic History of prostate cancer Urgency incontinence Renal cyst Acquired calcaneovarus deformity of both feet Lumbar stenosis with neurogenic claudication Orthostatic hypotension Venous insufficiency of both lower extremities Acute blood loss as cause of postoperative anemia Failed back surgical syndrome DDD (degenerative disc disease), lumbar Chronic back pain History of TIA (transient ischemic attack) Radiation cystitis Carotid artery disease Hx of cataract Closed fracture of right patella COVID-19 2020 Metatarsus adductus Osteoarthritis, generalized Seronegative rheumatoid arthritis Positive CORBY (antinuclear antibody) EDUARDO was negative in 2013 Gastroparesis GERD (gastroesophageal reflux disease) Cervical postlaminectomy syndrome FUAD (obstructive sleep apnea) Hyperlipidemia COPD (chronic obstructive pulmonary disease) H/O malignant neoplasm of skin Surgical History Status post revision of total replacement of right knee History of total bilateral knee replacement (TKR) Hx of excision of epidermal inclusion cyst Hx of excision of mass 04/12/23 Dr Fitzgerald- Elliptical excision of skin and subcutaneous back mass S/P laminectomy with spinal fusion S/P spinal fusion 02/2021 - T9-S1 Dr Delarosa History of penile implant Status post spinal arthrodesis S/P lumbar fusion History of cardiac cath ~2012 nonobstructive 10/2022 stress test EF 43 %, small areas prior infarcts RCA and LAD territories History of hip surgery RIGHT 04/11/19 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 History of total right hip arthroplasty History of total left hip arthroplasty History of abdominal aortic aneurysm (AAA) repair History of tonsillectomy and adenoidectomy Hx of appendectomy History of back surgery multiple procedures (>10) H/O neck surgery x 2 Hx of cholecystectomy H/O colonoscopy 2011 H/O esophagogastroduodenoscopy 2011 Family History Mother , Age 81 Bleeding disorder Clotting disorder CAD (coronary artery disease) 60s Cancer Stroke Father , Age 94 CAD (coronary artery disease) 80 Dementia Daughter Chronic kidney disease (CKD) Brother CAD (coronary artery disease) [place] Cancer Denies family history of Diabetes Suicide Anesthesia complication Lung disease Social History Smoking and tobacco/nicotine status: never used tobacco/nicotine Alcohol intake: never Substance/Drug Use: never Household members: spouse Marital status: Current occupational status: retired Special danny needs: No Agree to transfusion: Yes Physical Exam Const: COMMON NORMALS: patient oriented x3 HENMT: COMMON NORMALS: normocephalic and atraumatic HEAD & SCALP: normocephalic and atraumatic Eye: COMMON NORMALS: Equal, round and reactive pupils present and EOMs intact bilaterally PUPIL: Yes Equal, round and reactive pupils present Neck/C-Spine: COMMON NORMALS: full ROM and supple Chest: COMMONS NORMALS: normal inspection of the chest and normal palpation of entire chest wall Resp: COMMON NORMALS: normal respiratory effort, No retractions, No use of accessory muscles and clear to auscultation bilaterally AUSCULTATION: clear to auscultation bilaterally Cardio: COMMON NORMALS: regular rate, regular rhythm and No murmurs present (Cardio) RATE: regular rate RHYTHM: regular rhythm GI: COMMON NORMALS: Normal to inspection, nondistended, normoactive bowel sounds present, Soft to palpation, non-tender and no masses PALPATION: Yes Soft to palpation Extremity: COMMON NORMALS: normal to inspection and full ROM Neuro: COMMON NORMALS: patient oriented x3, moves all extremities and no focal motor deficits Psych: COMMON NORMALS: mental status grossly normal, Normal thought process present and cooperative THOUGHT PROCESS: Normal thought process present Skin: COMMON NORMALS: no rashes or lesions noted and no wounds GENERAL SKIN EXAM: no rashes or lesions noted Course Vital Signs: Vital signs: Vital Signs Temperature 98.1 F 10/22/24 08:19 Pulse Rate 72 10/22/24 08:19 Respiratory Rate 16 10/22/24 08:19 Blood Pressure 193/89 10/22/24 08:19 Pulse Oximetry 94 10/22/24 08:19 Oxygen Delivery Me thod Room Air 10/22/24 08:19 MDM - Dizziness Medical Decision Making Patient presents here with generalized weakness along with some abdominal cramping his CT did show constipation he has had history of constipation in past we will start him on some MiraLAX and getting follow-up with surgery for likely colonoscopy I did offer him admission but he states he feels improved and would like to go home we will discharge him at this time he is return if worsening. Medical Records I reviewed the patient's medical records. Lab Data I reviewed the patient's lab results. 10/22/24 08:27 10/22/24 08:27 Radiology Impressions Abdomen/Pelvis CT 10/22/24 08:30 IMPRESSION: 1. Marked distension of the colon with gas and stool. The transverse colon is most significantly distended at 9.3 mm. At this point in time, there is no colon wall thickening or pericolonic fat stranding and there is no pneumatosis. 2. Area of narrowing in the distal descending colon. While this could be an area of mechanical obstruction, the sigmoid colon is dilated distal to it. The possibility of a partial obstruction here can not be excluded but is favored to more likely represent peristaltic narrowing 3. Some free fluid in the pelvis without organized fluid collection 4. Wall thickening bladder 5. Mildly enlarged prostate gland 6. Bilateral renal cysts. 7. Previous cholecystectomy. 8. Previous extensive spine surgery and bilateral total hip replacements COMMENTS: Consistent with the [employer]'s Incidental Findings Committee white paper (J Am Juli Radiol 2018): Any incidental renal lesion less than 1 cm or classified as too small to characterize, or any incidental cystic renal lesion characterized as simple-appearing, is likely benign. No follow-up imaging is recommended for these lesions per consensus recommendations based on imaging criteria. ADDENDUM: 10/22/24 0955 Findings discussed with the Dr. Larry on 10/22/2024 at 947 a.m. central time Chest X-Ray 10/22/24 08:30 IMPRESSION: 1. Previous spinal fusion surgery. 2. Port-A-Cath 3. Negative for acute findings Laboratory Results WBC 6.73 10^3/uL (3.29-11.43) 10/22/24 08:27 RBC 3.60 10^6/uL (3.85-5.65) L 10/22/24 08:27 Hgb 11.10 g/dL (11.27-16.99) L 10/22/24 08:27 Hct 35.2 % (37-53) L 10/22/24 08:27 MCV 97.8 fl (82-101) 10/22/24 08:27 MCH 30.8 pg (27-33) 10/22/24 08:27 MCHC 31.5 g/dL (30-55) 10/22/24 08:27 RDW 15.7 % (12.1-15.1) H 10/22/24 08:27 Plt Count 182 10^3/cmm (157-399) 10/22/24 08:27 MPV 9.0 fL (7.4-10.4) 10/22/24 08:27 Neut % (Auto) 77.9 % 10/22/24 08:27 Lymph % (Auto) 11.0 % 10/22/24 08:27 [place] % (Auto) 10.1 % 10/22/24 08:27 Eos % (Auto) 0.3 % 10/22/24 08:27 Baso % (Auto) 0.1 % 10/22/24 08:27 Neut # (Auto) 5.24 10^3/uL (1.8-7.7) 10/22/24 08:27 Lymph # (Auto) 0.7 10^3/uL (0.8-4.8) L 10/22/24 08:27 [place] # (Auto) 0.7 10^3/uL (0.2-0.9) 10/22/24 08:27 Eos # (Auto) 0.0 10^3/uL (0.0-0.8) 10/22/24 08:27 Baso # (Auto) 0.0 10^3/uL (0.0-0.1) 10/22/24 08:27 Nucleated RBC % (auto) 0 % 10/22/24 08: Nucleated RBCs # 0.0 /100WBC 10/22/24 08:27 Sodium 139 mmol/L (136-145) 10/22/24 08:27 Potassium 3.1 mmol/L (3.5-5.1) L 10/22/24 08:27 Chloride 106 mmol/L (98-107) 10/22/24 08:27 Carbon Dioxide 23 mmol/L (22-29) 10/22/24 08:27 Anion Gap 13.1 (5-19) 10/22/24 08:27 BUN 13 mg/dL (8-23) 10/22/24 08:27 Creatinine 0.8 mg/dL (0.7-1.2) 10/22/24 08:27 GFR Calculation Not Reportable 10/22/24 08:27 Glucose 84 mg/dL (65-115) 10/22/24 08:27 Calculated Osmolality 287 mOsm/kg (285-295) 10/22/24 08:27 Calcium 7.6 mg/dL (8.5-10.5) L 10/22/24 08:27 Magnesium 1.8 mg/dL (1.7-2.3) 10/22/24 08:27 Total Bilirubin 0.5 mg/dL (0.15-1.2) 10/22/24 08:27 AST 9 U/L (0-40) 10/22/24 08:27 ALT 10 U/L (0-41) 10/22/24 08:27 Alkaline Phosphatase 58 U/L (40-130) 10/22/24 08:27 Total Protein 5.4 g/dL (6.6-8.7) L 10/22/24 08:27 Albumin 3.0 g/dL (3.5-5.2) L 10/22/24 08:27 Globulin 2.4 g/dL (1.3-4.6) 10/22/24 08:27 Lipase 22 U/L (13-60) 10/22/24 08:27 Urine Color Yellow (Yellow) 10/22/24 09:50 Urine Appearance Clear (CLEAR) 10/22/24 09:50 Urine pH 6.0 (5-7) 10/22/24 09:50 Ur Specific [place] 1.077 (1.005-1.030) H 10/22/24 09:50 Urine Protein Trace (Negative) A 10/22/24 09:50 Urine Glucose (UA) Negative (Normal) 10/22/24 09:50 Urine Ketones Trace (Negative) 10/22/24 09:50 Urine Blood Negative (Negative) 10/22/24 09:50 Urine Nitrate Negative (Negative) 10/22/24 09:50 Urine Bilirubin Negative (Negative) 10/22/24 09:50 Urine Urobilinogen 1.0 mg/dL (Negative) 10/22/24 09:50 Ur Leukocyte Esterase Negative (Negative) 10/22/24 09:50 Urine RBC 0-2 /hpf (0-2) 10/22/24 09:50 Urine WBC 0-5 /hpf (0-5) 10/22/24 09:50 Ur Squamous Epith Cells 0-5 /hpf (0-5) 10/22/24 09:50 Amorphous Sediment Not Reportable 10/22/24 09:50 Urine Bacteria None seen /hpf (NONE) 10/22/24 09:50 Hyaline Casts 0-4 /lpf H 10/22/24 09:50 All radiology interpretation(s) finalized by discharge Discharge Plan Discharge Patient Disposition: Home Clinical Impression: Generalized weakness, Constipation Condition: Stable Prescriptions: New polyethylene glycol 3350 [Miralax] 17 gram powder in packet 17 g PO DAILY PRN (Reason: constipation) Qty: 14 0RF No Action (DME) MARK BRACE See Rx Instructions .Route .MEDSUPPLY Qty: 1 0RF Rx Instructions: As directed bumetanide 2 mg tablet 2 mg PO BID PRN (Reason: Edema) olanzapine [Zyprexa] 2.5 mg tablet 2.5 mg PO DAILY Qty: 60 1RF Rx Instructions: 1-2 tablets at hs for appetite and mood (DME) Modification to AFO Brace to the left See Rx Instructions .Route .MEDSUPPLY Qty: 1 0RF Rx Instructions: As directed by [facility] [place] oxybutynin chloride 5 mg tablet extended release 24hr 5 mg PO DAILY carvedilol 12.5 mg tablet 12.5 mg PO DAILY omeprazole 40 mg capsule,delayed release(DR/EC) 40 mg PO QAM Qty: 90 1RF prednisone 10 mg tablet 10 mg PO DAILY Qty: 90 1RF potassium chloride 10 mEq tablet extended release 20 meq PO BID PRN (Reason: while on Bumetanide) prochlorperazine maleate [Compazine] 10 mg tablet 10 mg PO Q6H PRN (Reason: nausea and vomiting) Qty: 30 6RF ondansetron HCl 4 mg tablet 8 mg PO Q8H PRN (Reason: nausea and vomiting) Qty: 90 3RF atorvastatin 40 mg tablet 40 mg PO BEDTIME Qty: 90 3RF isosorbide mononitrate 30 mg tablet extended release 24 hr 60 mg PO BEDTIME Qty: 180 2RF hydromorphone [Dilaudid] 2 mg tablet 1 mg PO Q8H PRN (Reason: pain) 30 Days Qty: 25 0RF acetaminophen 500 mg capsule 1,000 mg PO TID PRN (Reason: Pain) Eliquis 5 mg Tablet 5 mg PO BID@0900,2100 Qty: 60 2RF levothyroxine [Synthroid] 150 mcg tablet 150 mcg PO DAILY pregabalin 25 mg capsule 25 mg PO BID lidocaine-prilocaine 2.5-2.5 % cream 1 applic topical PRN PRN (Reason: port access) Rx Instructions: Apply a quarter size amount to port and cover with saran wrap 30 minutes prior to access. lorazepam 0.5 mg tablet 0.25 - 0.5 mg PO TID MDD 6 mg PRN (Reason: nausea and vomiting) Rx Instructions: may titrate to 2 mg dosing if needed for relief. nitroglycerin [Nitrostat] 0.4 mg Tablet, Sublingual 0.4 mg SUBLINGUAL Q5M PRN (Reason: Chest Pain) Rx Instructions: do not exceed 3 doses per episode amiodarone [Pacerone] 200 mg Tablet 200 mg PO DAILY Qty: 30 0RF liothyronine 5 mcg tablet 5 mcg PO BID hydralazine 50 mg tablet 50 mg PO TID sennosides-docusate sodium [Stool Softener-Laxative] 8.6-50 mg tablet 1 tab PO DAILY PRN (Reason: Constipation) Discharge Orders: Discharge ED (Routine); Ordered 10/22/24 Ordered By: Laron Mims Referrals: Yash Stark MD [Physician, General Surgery] - 4-7 days Marsha Turner MD [Primary Care Provider, Internal Medicine] Discharge Diet: Advance as tolerated Discharge Activity: Resume usual activity Patient Instructions: Constipation (ED) Print Language: Icelandic Coding Level of Care Code ED Calibration Checker for Lauren Zimmerman
[2024-10-22 08:34] LABS: Hematocrit 35.2 % (37-53); Hemoglobin 11.10 g/dL (11.27-16.99); Mean Corpuscular HGB Conc 31.5 g/dL (30-55); Mean Corpuscular Hemoglobin 30.8 pg (27-33); Mean Corpuscular Volume 97.8 fl (82-101); Nucleated Red Blood Cells % 0 %; Platelet Count 182 10^3/cmm (157-399); Red Blood Count 3.60 10^6/uL (3.85-5.65); White Blood Count 6.73 10^3/uL (3.29-11.43)
[2024-10-22] MEDS: iohexol 350 mg/mL 500 mL Btl (per mL) IV (08:48)
[2024-10-22 08:50] LABS: Alanine Aminotransferase 10 U/L (0-41); Albumin Level 3.0 g/dL (3.5-5.2); Alkaline Phosphatase 58 U/L (40-130); Anion Gap 13.1 (5-19); Aspartate Amino Transferase 9 U/L (0-40); Blood Urea Nitrogen 13 mg/dL (8-23); Calcium 7.6 mg/dL (8.5-10.5); Carbon Dioxide 23 mmol/L (22-29); Chloride 106 mmol/L (98-107); Creatinine Clr Calc Pharmacy 90.9842; Globulin 2.4 g/dL (1.3-4.6); Glucose 84 mg/dL (65-115); Lipase 22 U/L (13-60); Magnesium 1.8 mg/dL (1.7-2.3); Osmolality Calculated 287 mOsm/kg (285-295); Potassium 3.1 mmol/L (3.5-5.1); Sodium 139 mmol/L (136-145); Total Protein 5.4 g/dL (6.6-8.7)
[2024-10-22 09:59] LABS: Glucose Urine UA Negative (Normal); Nitrate Urine Negative (Negative)
[2024-10-22 10:03] LABS: Add Urine Microscopic? YES
[2024-10-22 10:07] LABS: Specific Gravity, Urine 1.077 (1.005-1.030)
[2024-10-22 10:41] VITALS: BP 166/95; PULSE 58; O2SAT 95
--- NOTE | 2024-10-23 07:44 | DCPLANNER ---
messaged gen surg for er f/u
== END 2024-10-22 10:41 | disposition home or self-care (01) ==
PROVIDERS: Emergency Provider Emergency Medicine; PCP Internal Medicine
DX: R53.1 Weakness (principal); K59.00 Constipation, unspecified; E03.9 Hypothyroidism, unspecified; I48.91 Unspecified atrial fibrillation; I11.0 Hypertensive heart disease with heart failure; I50.9 Heart failure, unspecified; I25.10 Atherosclerotic heart disease of native coronary artery without angina pectoris; Z86.73 Personal history of transient ischemic attack (TIA), and cerebral infarction without residual deficits; G47.33 Obstructive sleep apnea (adult) (pediatric); E78.5 Hyperlipidemia, unspecified; K21.9 Gastro-esophageal reflux disease without esophagitis; J44.9 Chronic obstructive pulmonary disease, unspecified; Z85.828 Personal history of other malignant neoplasm of skin; Z85.46 Personal history of malignant neoplasm of prostate; Z79.899 Other long term (current) drug therapy; Z79.890 Hormone replacement therapy; Z88.5 Allergy status to narcotic agent; Z91.09 Other allergy status, other than to drugs and biological substances; Z98.1 Arthrodesis status
CPT/HCPCS: 71045; 74177; 80053; 81001; 83690; 83735; 85025; 99285; J7030

== ENCOUNTER 2024-10-25 14:39 | Oncology outpatient (recurring) (ONCR) | payer MEDICARE, OTHER, SELFPAY ==
[2024-10-25 15:01] VITALS: BP 144/75; PULSE 58; RESP 17; TEMP 36.8; O2SAT 95
[2024-10-25 15:29] LABS: Hematocrit 34.7 % (37-53); Hemoglobin 11.10 g/dL (11.27-16.99); Mean Corpuscular HGB Conc 32.0 g/dL (30-55); Mean Corpuscular Hemoglobin 31.0 pg (27-33); Mean Corpuscular Volume 96.9 fl (82-101); Nucleated Red Blood Cells % 0 %; Platelet Count 176 10^3/cmm (157-399); Red Blood Count 3.58 10^6/uL (3.85-5.65); White Blood Count 6.73 10^3/uL (3.29-11.43)
[2024-10-25 15:44] LABS: Alanine Aminotransferase 13 U/L (0-41); Albumin Level 3.7 g/dL (3.5-5.2); Alkaline Phosphatase 70 U/L (40-130); Anion Gap 12.3 (5-19); Aspartate Amino Transferase 15 U/L (0-40); Blood Urea Nitrogen 16 mg/dL (8-23); Calcium 8.4 mg/dL (8.5-10.5); Carbon Dioxide 28 mmol/L (22-29); Chloride 101 mmol/L (98-107); Globulin 2.5 g/dL (1.3-4.6); Glucose 121 mg/dL (65-115); Magnesium 2.8 mg/dL (1.7-2.3); Osmolality Calculated 286 mOsm/kg (285-295); Potassium 4.3 mmol/L (3.5-5.1); Sodium 137 mmol/L (136-145); Total Protein 6.2 g/dL (6.6-8.7)
[2024-10-25 16:56] VITALS: BP 154/73; PULSE 90; RESP 16; TEMP 36.6; O2SAT 96
== END 2024-11-12 23:59 | disposition home or self-care (01) ==
PROVIDERS: Internal Medicine; PCP Internal Medicine; Visit Provider Nurse Practitioner
DX: C44.42 Squamous cell carcinoma of skin of scalp and neck (principal); M06.042 Rheumatoid arthritis without rheumatoid factor, left hand; M06.041 Rheumatoid arthritis without rheumatoid factor, right hand; Z51.0 Encounter for antineoplastic radiation therapy; Z92.3 Personal history of irradiation; L58.0 Acute radiodermatitis; G89.3 Neoplasm related pain (acute) (chronic); C44.92 Squamous cell carcinoma of skin, unspecified; Z79.899 Other long term (current) drug therapy
CPT/HCPCS: 17000; 36415; 80053; 83735; 85025; 96360; 99214; J7030

== ENCOUNTER 2024-10-28 09:43 | Inpatient (IN) | payer MEDICARE, OTHER, SELFPAY ==
[2024-10-28] VITALS (10 sets, daily range): BP systolic 139–176; BP diastolic 61–106; PULSE 71–78; RESP 12–21; TEMP 37.1; O2SAT 93–96; BMI 34.4; BMI 38.7
--- OUTSIDE RECORDS SUMMARY | 2024-10-28 09:52 | XMS_ITS | Encounter Summary ---
Author Organization [facility] Address [address] 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
--- OUTSIDE RECORDS SUMMARY | 2024-10-28 09:52 | XMS_ITS | Encounter Summary ---
Author Organization [facility] Address [address] 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
--- OUTSIDE RECORDS SUMMARY | 2024-10-28 09:52 | XMS_ITS | Encounter Summary ---
Author Organization [facility] Address [address] [place] [address] Care Team Providers Care Financial Investment Adviser Name Role Phone Marsha Turner MD Primary Care Provider [phone]- [phone] Encounter Details Date Type Department Care Team (Late st Contact Info) Description 09/23/2005 Outpatient Historical [facility] [place] [address] [place] [address] Thomas Mack MD NO ADDRESS ON FILE Renal Colic (Primary Dx) Social History Tobacco Use Types Packs/Day Years Used Date Smoking Tobacco: Never Assessed Sex and Gender Information Value Date Recorded Sex Assigned at Not on file 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
--- OUTSIDE RECORDS SUMMARY | 2024-10-28 09:52 | XMS_ITS | Encounter Summary ---
Author Organization [facility] Address [address] [place] [address] Care Team Providers Care Supervisor Word Processing Name Role Phone Marsha Turner MD Primary Care Provider [phone]- [phone] Encounter Details Date Type Department Care Team (Latest Contact Info) Description 06/23/2005 Outpatient Historical [facility] [place] [address] [place] [address] Jalen Rutledge MD NO ADDRESS ON FILE Chronic Rhinitis (Primary Dx); Other Dyspnea and Respiratory Abnormality Social History Tobacco Use Types Packs/Day Years Used Date Smoking Tobacco: Never Assessed Sex and Gender Information Value Date Recorded Sex Assigned at Not on file 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
--- OUTSIDE RECORDS SUMMARY | 2024-10-28 09:52 | XMS_ITS | Encounter Summary ---
Author Organization [facility] Address [address] [place] [address] Care Team Providers Care Technical Delivery Manager Name Role Phone Marsha Turner MD Primary Care Provider +1- [phone] Reason for Referral * Outpatient Services (Routine) - Closed Specialty Diagnoses / Procedures Referred By Te caceres Referred To Contact Diagnoses Disorders of sacrum Procedures XR FLUORO NEEDLE GUIDANCE Kamar Leach MD Referral ID Status Reason Start Date Expiration Date Visits Re quested Visits Authorized [id number] Closed 06/11/2014 07/12/2015 1 1 Encounter Details Date Type Department Care Team (Late st Contact Info) Description 06/11/2014 Ancillary Orders [facility] Pain Management Procedures [place] [address] [place] [address] Kamar Leach MD NO ADDRESS ON FILE Disorders of sacrum (Primary Dx) Social History Tobacco Use Types Packs/Day Years Used Date Smoking Tobacco: Never Smokeless Tobacco: Never Alcohol Use Standard Drinks/Week Comments No 0 (1 standard drink = 0.6 oz pur e alcohol) Sex and Gender Information Value Date Recorded Sex Assigned at Not on file 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
--- OUTSIDE RECORDS SUMMARY | 2024-10-28 09:52 | XMS_ITS | Encounter Summary ---
Author Organization [facility] Address [address] [place] [address] Care Team Providers Care Hand Leather Trimmer Name Role Phone Marsha Turner MD Primary Care Provider +1- [phone] Encounter Details Date Type Department Care Team (Late st Contact Info) Description 11/30/2007 Outpatient Historical [facility] Pain Management Procedures [address] 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 Date Signed: 12/08/07 [facility] Procedure Note Florentino Lovell W - 12/08/2007 Views of the lumbar spine with flexion and extension were obtained. Thereis a posterior fusion L4, L5 and S1. Hardware is intact. The neutral, flexion and extension views showthat alignment is within normal limits. Mild to moderate degenerative disc disease is also noted [id number]. - Dictated By: Florentino Lovell M.D. Electronically [...] agent documented in this encounter Care Teams Hand Leather Trimmer Relationship Specialty Start Date End Date Marsha Turner MD [address] [place] [address] PCP - General Internal Medicine 05/31/12 documented as of this encounter
--- OUTSIDE RECORDS SUMMARY | 2024-10-28 09:52 | XMS_ITS | Encounter Summary ---
Author Organization [facility] Address [address] [place] [address] Care Team Providers Care Steel Hanger Name Role Phone Marsha Turner MD Primary Care Provider +1- [phone] Encounter Details Date Type Department Care Team (Latest Contact Info) Description 05/14/2005 Outpatient Historical [facility] Imaging Services[facility] Laura [address] [place] [address] Abilio Bagley MD [address] [place] [address] ESOPHAGEAL REFLUX (Primary Dx) Social History Tobacco Use Types Packs/Day Years Used Date Smoking Tobacco: Never Assessed Sex and Gender Information Value Date Recorded Sex Assigned at Not on file 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
--- OUTSIDE RECORDS SUMMARY | 2024-10-28 09:52 | XMS_ITS | Encounter Summary ---
Author Organization [facility] Address [address] [place] [address] Care Team Providers Care Necktie Stitcher Name Role Phone Marsha Turner MD Primary Care Provider +1- [phone] Encounter Details Date Type Department Care Team (Late st Contact Info) Description 08/27/2005 Outpatient Historical [facility] U[facility] [address] 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
--- OUTSIDE RECORDS SUMMARY | 2024-10-28 09:52 | XMS_ITS | Encounter Summary ---
Author Organization [facility] Address [address] [place] [address] Care Team Providers Care Stereo Operator Name Role Phone Marsha Turner MD Primary Care Provider +1- [phone] Encounter Details Date Type Department Care Team (Late st Contact Info) Description 06/14/2006 Outpatient Historical [facility] Imaging Services-[facility] [address] [place] [address] Thomas Mack MD NO ADDRESS ON FILE Slow Urinary Stream (Primary Dx) Social History Tobacco Use Types Packs/Day Years Used Date Smoking Tobacco: Never Assessed Sex and Gender Information Value Date Recorded Sex Assigned at Not on file 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
--- OUTSIDE RECORDS SUMMARY | 2024-10-28 09:52 | XMS_ITS | Clinical Summary ---
Author Organization [facility] Address [address] [place] [address] Care Team Providers Care Business Owner/Engineer Name Role Phone Marsha Turner MD Primary Care Provider +1- [phone] Allergies Active Allergy Reactions Criticality Noted Date [...] Brother 1 Heart Disease Brother 2 [place] Other Brother 2 [place] Respiratory Disease Brother [...] Alive Brother 3 (Age 67) Daughter 1 Zeo Alive Daughter 2 Judith Alive Daughter 3 [...] on file Legal Sex Male 1:[address] BAILIFF Gender Identity Not on file Sexual Orientation [...] years Discontinued Medical Devices Implanted Type Area Design Maintenance Engineer Device Identifier Shelf Expiration Date Model / Serial / Lot Vitoss Foam Ba 1.2ml [id number] - Sna Implanted:Qty: 1 on 04/18/2013 Biological N/A: Spine Cervical Anterior LISA- SPINE 10/13/2014 / NA / [id number] [place] C Stand Alone Cage [id number] Implanted:Qty: 1 on 04/18/2013 by John Castillo MD Cage N/A: Spine Cervical Anterior LISA- SPINE 76932673 / LD [id number] / NA Cement Palacos R+G [phone] - Sna Implanted:Qty: 2 on 09/29/2012 Cement Left: Knee SHIRA US INC 01/13/201638-1833-330-01 / NA / NA Hemostatic Gelfoam Powder 1gm [id number] - [id number] Implanted:Qty: 1 on 05/20/2015 by Dee Casillas MD Hemostatic N/A: Spine Thoracic PFIZER- PHARM 10/12/201710032141874 / / [id number] Hemostatic Gelfoam Powder 1gm [id number] - [id number] Implanted:Qty: 1 on 09/14/2017 by Dee Casillas MD Hemostatic N/A: Back PFIZER- PHARM 11/13/2019 [id number] / / [id number] Gel-Flow Nt Implanted:Qty: 1 on 08/12/2018 by Dee Casillas MD Hemostatic N/A: Spine Cervical Anterior PFIZER- PHARMACIA AND UPJOHN I 08/04/2019 / / [id number] Bearing Tib Vng 10mm 79/83mm 371330 - [id number] Implanted:Qty: 1 on 09/29/2012 Knee Left: Knee BIOMET INC 05/12/2017 939689 / / [id number] Comp Fem Vng Ps Sz72.5 Lt 724786 - [id number] Implanted:Qty: 1 on 09/29/2012 Knee Left: Knee BIOMET INC 06/12/2022 939817 / / [id number] Comp Tib Cocr Finned 83mm 693928 - [id number] Implanted:Qty: 1 on 09/29/2012 Knee Left: Knee BIOMET INC 03/14/2022 173547 / / [id number] Standard Patella Implanted:Qty: 1 on 09/29/2012 by Dylon Abreu MD Knee Left: Knee BIOMET- ORTHOPEDICS, INC 07/12/2017 777519 / / [id number] Plate Hybrid Cerv 12mm 22536280 - [id number] Implanted:Qty: 1 on 04/18/2013 Plate N/A: Spine Cervical Anterior LISA- SPINE 17141994 / LD [id number] / NA Issac Lgcy Crv Ti 5.0l647si 4994453 - [id number] Implanted:Qty: 1 on 09/14/2017 by Dee Casillas MD Issac N/A: Back MEDTRONIC- SOFAMOR DANEK 09/15/2019 5728953 / / [id number] Issac Lgcy Crv Ti 5.0o449jv 6042330 - [id number] Implanted:Qty: 1 on 09/14/2017 by Dee Casillas MD Issac N/A: Back MED[employer]IC- SOFAMOR DANEK 09/15/2019 5889019 / / [id number] Issac Std 3.7c505gf 5711108 - [id number] Implanted:Qty: 2 on 08/12/2018 by Dee Casillas MD Issac N/A: Spine Cervical Anterior MED[employer]ONIC- SOFAMOR DANEK 0492110 / [id number] / Screw Rh St Va 4.0x14mm 42363880 - Sld [id number] Implanted:Qty: 2 on 04/18/2013 Screw N/A: Spine Cervical Anterior LISA- SPINE 97862043 / LD [id number] / NA Screw Sd 3.5x10mm 20660111 - Sld [id number] Implanted:Qty: 2 on 04/18/2013 Screw N/A: Spine Cervical Anterior LISA- SPINE 21579488 / LD [id number] / NA Screw Rh Sd Fa 4.0x14mm 11810642 - Sld [id number] Implanted:Qty: 1 on 04/18/2013 Screw N/A: Spine Cervical Anterior LISA- SPINE 97103748 / LD [id number] / NA Screw Rh St Fa 4.0x14mm 47360582 - Sld [id number] Implanted:Qty: 1 on 04/18/2013 Screw N/A: Spine Cervical Anterior LISA- SPINE 46380660 / LD [id number] / NA Screw Legacy Ma 6.5x50mm 37406776 - [id number] Implanted:Qty: 1 on 09/14/2017 by Dee Casillas MD Screw N/A: Back MEDTRONIC- SOFAMOR DANEK 72741470 / / [id number] Screw Legacy Ma 6.5x50mm 15444389 - [id number] Implanted:Qty: 1 on 09/14/2017 by Dee Casillas MD Screw N/A: Back MEDTRONIC- SOFAMOR DANEK 25345140 / / [id number] Screw Legacy Ma 7.5x50mm 29062287 - [id number] Implanted:Qty: 1 on 09/14/2017 by Dee Casillas MD Screw N/A: Back MEDTRONIC- SOFAMOR DANEK 70467576 / / [id number] Screw Legacy Ma 7.5x50mm 51550276 - [id number] Implanted:Qty: 1 on 09/14/2017 by Dee Casillas MD Screw N/A: Back MEDTRONIC- SOFAMOR DANEK 38705789 / / [id number] Set Screw Break Off Ti 7069104 - [id number] Implanted:Qty: 1 on 09/14/2017 by Dee Casillas MD Screw N/A: Back MEDTRONIC- SOFAMOR DANEK 9718827 / / [id number] Set Screw Break Off Ti 9580637 - [id number] Implanted:Qty: 1 on 09/14/2017 by Dee Casillas MD Screw N/A: Back MEDTRONIC- SOFAMOR DANEK 3147708 / / [id number] Set Screw Break Off Ti 7123499 - [id number] Implanted:Qty: 1 on 09/14/2017 by Dee Casillas MD Screw N/A: Back MEDTRONIC- SOFAMOR DANEK 1071431 / / [id number] Set Screw Break Off Ti 2922949 - [id number] Implanted:Qty: 1 on 09/14/2017 by Dee Casillas MD Screw N/A: Back MEDTRONIC- SOFAMOR DANEK 5005147 / / [id number] Set Screw Break Off Ti 7946465 - [id number] Implanted:Qty: 1 on 09/14/2017 by Dee Casillas MD Screw N/A: Back MEDTRONIC- SOFAMOR DANEK 5655576 / / [id number] Set Screw Break Off Ti 1037195 - [id number] Implanted:Qty: 1 on 09/14/2017 by Dee Casillas MD Screw N/A: Back MEDTRONIC- SOFAMOR DANEK 0245506 / / [id number] Set Screw Break Off Ti 2517383 - [id number] Implanted:Qty: 1 on 09/14/2017 by Dee Casillas MD Screw N/A: Back MEDTRONIC- SOFAMOR DANEK 7596895 / / [id number] Set Screw Break Off Ti 5151407 - [id number] Implanted:Qty: 1 on 09/14/2017 by Dee Casillas MD Screw N/A: Back MEDTRONIC- SOFAMOR DANEK 8722131 / / [id number] Infinity Screw Implanted:Qty: 7 on 08/12/2018 by Dee Casillas MD Screw N/A: Spine Cervical Anterior MEDTRONIC- NEUROSURGERY 5317251 / [id number] / Description:PER INVOICE Infinity Screw Implanted:Qty: 2 on 08/12/2018 by Dee aCsillas MD Screw N/A: Spine Cervical Anterior MEDTRONIC- NEUROSURGERY 0797294 / [id number] / Description:PER INVOICE Infinity Screw Implanted:Qty: 2 on 08/12/2018 by Dee Casillas MD Screw N/A: Spine Cervical Anterior MEDTRONIC- NEUROSURGERY 2556728 / [id number] / Description:PER INVOICE Infinity Set Screws Implanted:Qty: 11 on 08/12/2018 by Dee Casillas MD Screw N/A: Spine Cervical Anterior 1315881 / [id number] / Description:PER INVOICE Spacer As 5t74m01c4e 10713046 - Sld [id number] Implanted:Qty: 1 on 04/18/2013 Spacer N/A: Spine Cervical Anterior LISA- SPINE 70390840 / LD [id number] / NA Crosslink Lp Mltspn L=1.75-2.15 811-322 - [id number] Implanted:Qty: 1 on 09/14/2017 by Dee Casillas MD Spine N/A: Back MEDTRONIC- SOFAMOR ALVINAEK 09/15/2019 811-322 / / [id number] Description:09/17 inv pricing Putty Bio Dbm 10ml 2344767 - [id number] Implanted:Qty: 1 on 09/14/2017 by Dee Casillas MD Tissue N/A: Back LISA- HOWMEDICA INT INC 05/27/2019 0548176 / / [id number] Putty Bio Dbm 10ml 8295266 - [id number] Implanted:Qty: 1 on 09/14/2017 by Dee Casillas MD Tissue N/A: Back LISA- HOWMEDICA INT INC 05/16/2019 0119293 / / [id number] Readigraft Canc Chips 30ml Can30 14bp - [id number] Implanted:Qty: 1 on 09/14/2017 by Dee Casillas MD Tissue N/A: Back The 5th Quarter 08/20/2019 CAN30 14BP / / [id number] Putty Bio Dbm 10ml 7422841 - [id number] Implanted:Qty: 1 on 08/12/2018 by Dee Casillas MD Tissue N/A: Spine Cervical Anterior LISA- HOWMEDICA INT INC 04/13/2020 4326234 / / [id number] Putty Bio Dbm 10ml 1157840 - [id number] Implanted:Qty: 1 on 08/12/2018 by Dee Casillas MD Tissue N/A: Spine Cervical Anterior LISA- HOWMEDICA INT INC 04/13/2020 7811158 / / [id number] Explanted Type Area Design Maintenance Engineer Device Identifier Shelf Expiration Date Model / Serial / Lot Stim Spnl Cord Precision Spectra [id number] - [id number] Implanted:Qty : 1 on 05/20/2015 by Dee Casillas MD Explanted:Qty : 1 on 06/15/2016 by Dee Casillas MD Neuro Right: Spine Thoracic [employer]- NEURO MODULATION 05/02/2017 WV-1132 / / [id number] Infinity Set Screws Explanted:Qty : 2 on 08/12/2018 Screw N/A: Spine Cervical Anterior MEDTRONIC- NEUROSURGERY 7540239 / [id number] / Description:PER INVOICE Cover Edge 32 70cm 4x8 Research Manager Kit [id number] Implanted:Qty : 1 on 05/20/2015 by Dee Casillas MD Explanted:Qty : 1 on 06/15/2016 by Dee Casillas MD N/A: Spine Thoracic [employer] INC 02/11/2017 / [id number] / [id number] Set Screws X4, Blockers X4, And 2 Rods Explanted:Qty : 1 on 09/14/2017 by Dee Casillas MD N/A: Spine Cervical Anterior Insurance MEDICARE PART A AND B [employer] * Guarantor: KOJO MARINELLI Account Type Relation to Patient Date of Phone Billing Address Personal/Family [address] [place] [address] [facility] Medicare Part D Care Teams Business Owner/Engineer Relationship Specialty Start Date End Date Marsha Turner MD [address] [place] [address] PCP - General 06/12/20
--- OUTSIDE RECORDS SUMMARY | 2024-10-28 09:52 | XMS_ITS | Encounter Summary ---
Author Organization [facility] Address [address] 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
--- OUTSIDE RECORDS SUMMARY | 2024-10-28 09:52 | XMS_ITS | Encounter Summary ---
Author Organization [facility] Address [address] [place] [address] Care Team Providers Care Utility Mechanic Supervisor Name Role Phone Marsha Turner MD Primary Care Provider +1- [phone] Encounter Details Date Type Department Care Team (Late st Contact Info) Description 12/12/2007 Outpatient Historical [facility] Pain Management Procedures [address] 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 No report expected. Procedure Note 03/25/2008 Finalized by interface [employer] utility. No report expected. us Kamar Leach MD DIAGNOSTIC IMAGING ORDERAB LES Final Result documented in this encounter Visit Diagnoses Diagnosis Unspecified asthma(493.90) Unspecified asthma Arthropathy, unspecified, site unspecified Diaphragmatic hernia without mention of obstruction or gangrene Personal history of unspecified circulatory disease Unspecified joint replacement by other means Personal history of allergy to analgesic agent documented in this encounter Care Teams Utility Mechanic Supervisor Relationship Specialty Start Date End Date Marsha Turner MD [address] [place] [address] PCP - General Internal Medicine 05/31/12 documented as of this encounter
--- OUTSIDE RECORDS SUMMARY | 2024-10-28 09:52 | XMS_ITS | Encounter Summary ---
Author Organization [facility] Address [address] [place] [address] Care Team Providers Care Data Governance Analyst Name Role Phone Marsha Turner MD Primary Care Provider +1- [phone] Encounter Details Date Type Department Care Team (Late st Contact Info) Description 03/05/2008 Outpatient Historical [facility] PreAdmission Winifred E I[address] [place] [address] Dee Casillas MD [address] [address] Social History Tobacco Use Types Packs/Day Years Used Date Smoking Tobacco: Never Assessed Sex and Gender Information Value Date Recorded Sex Assigned at Not on file Legal 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 Male 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 Gender Identity Not on file Sexual Orientation Not on file documented as of this encounter Plan of Treatment Not on file documented as of this encounter Procedures Procedure Name Priority Date/Time Associated Diagnosis Comments XR CHEST PA OR AP 1 VW Routine 8 5:03 PM EXTRUDER URINALYSIS W/REFLEX MICROSCOPIC Stat 03/05/2008 4:54 PM EXTRUDER ABORH TYPING Stat 03/05/2008 4:20 PM EXTRUDER CBC WITH DIFFERENTIAL Stat 03/05/2008 4:20 PM EXTRUDER PROTIME-INR Stat 03/05/2008 4:20 PM EXTRUDER BLOOD BANK ANTIBODY SCREEN Stat 03/05/2008 4:20 PM EXTRUDER COMPREHENSIVE METABOLIC PANEL Stat 03/05/2008 4:20 PM EXTRUDER documented in this encounter Results * XR CHEST PA OR AP (03/05/2008 5:03 PM EXTRUDER) Anatomical Region Laterality Modality Chest Other 03/05/2008 5:03 PM EXTRUDER Narrative 03/06/2008 3:36 PM EXTRUDER Exam: Chest - PA Date/Time of Exam: Mar 05, 2008 5:03:08 PM History: Pre-operative. Findings: There is a comparison from 10/17/2007. Both lungs are well-inflated and clear. The cardiomediastinal silhouette and pulmonary vessels are unremarkable. Impression: No active chest disease or significant interval change. - Dictated By: Melba Gamboa M.D. Electronically Signed By: eMlba Gamboa M.D. Date Signed: 03/06/08 Procedure Note [...] Result * (ABNORMAL) URINALYSIS (03/05/2008 4:54 PM EXTRUDER) LEUKOCYTE ESTERASE UA NEGATIVE NEGATIVE [facility] KETONES UA NEGATIVE NEGATIVE [facility] MICRO EXAM No No [facility] COLOR UA Yellow Straw [facility] PROTEIN UA NEGATIVE NEGATIVE [facility] BLOOD UA NEGATIVE NEGATIVE [facility] NITRITE UA NEGATIVE NEGATIVE [facility] UROBILINOGEN UA 1.0(A) 0.2 [facility] CLARITY UA Clear Clear [facility] SPECIFIC GRAVITY UA 1.010 <=1.005 [facility] GLUCOSE UA NEGATIVE NEGATIVE [facility] PH UA 7.0 5.0 - 9.0 [facility] BILIRUBIN UA NEGATIVE NEGATIVE [facility] Urine specimen (specimen) 03/05/2008 4:54 PM EXTRUDER 03/05/2008 4:54 PM EXTRUDER us Dee Casillas MD URINE ORDERABLES Final Result Performing Organization Address City/State/[facility] Co de Phone Number INTERFACE SYSTEM Refer to clinic/hospital department [facility] CLIA# [id number] [address] [place] [address] * (ABNORMAL) CBC WITH DIFFERENTIAL (03/05/2008 4:20 PM EXTRUDER) HEMOGLOBIN 11.6(L) 14.0 - 18.0 g/dL [facility] LYMPHOCYTES 15.1(L) 24.0 - 44.0 % [facility] LYMPHOCYTE ABSOLUTE 1.0(L) 1.2 - 4.0 K/ul [facility] WBC 6.4 4.8 - 10.8 K/ul [facility] MCH 30.4 27.0 - 34.0 pg [facility] MPV 9.1 8.9 - 12.8 Fl [facility] BASOPHILS ABSOLUTE 0.0 0.0 - 0.2 K/ul [facility] BASOPHILS 0.5 0.0 - 1.0 % [facility] MCHC 33.8 30.0 - 35.0 g/dL [facility] HEMATOCRIT 34.3(L) 41.0 - 53.0 % [facility] RDW 13.9 11.0 - 14.5 % [facility] MONOCYTE ABSOLUTE 0.6 0.1 - 0.6 K/ul [facility] MONOCYTES 9.6 2.0 - 10.0 % [facility] RBC 3.82(L) 4.60 - 6.20 Mil/ul [facility] NEUTROPHIL ABSOLUTE 4.6 2.0 - 8.0 K/ul [facility] NEUTROPHILS 72.9 42.2 - 75.2 % [facility] MCV 89.8 84.0 - 103.0 Fl [facility] EOSINOPHILS 1.9 0.0 - 7.0 % [facility] PLATELETS 221 140 - 440 K/ul [facility] EOSINOPHIL ABSOLUTE 0.1 0.0 - 0.7 K/ul [facility] Blood specimen (specimen) 03/05/2008 4:20 PM EXTRUDER 03/05/2008 4:30 PM EXTRUDER us Dee Casillas MD HEMATOLOGY ORDERABLES Final Resu lt INTERFACE SYSTEM Refer to clinic/hospital department [facility]# [id number] [address] [place] [address] * PROTIME-INR (03/05/2008 4:20 PM EXTRUDER) INR 1.0 [facility] Comment: Expected Values for INR: DVT/PE Goal INR 2.5; range 2.0 - 3.0 Valve Replacement Tissue Goal INR 2.5; range 2.0 - 3.0 Mechanical Goal INR 3.0; range 2.5 - 3.5 POST-TN Goal INR 2.5; range 2.0 - 3.0 or Goal 3.0; range 2.5 - 3.5 Atrial Fibrillation Goal INR 2.5; range 2.0 - 3.0 Ischemic Stroke Goal INR 2.5; range 2.0 - 3.0 For additional information see Guidelines for Anticoagulation available from the pharmacy Nichelle Mike [phone] PROTIME 14.0 12.8 - 15.8 Secs [facility] Comment:As of 2007 not e change in normal range. Blood specimen (specimen) 03/05/2008 4:20 PM EXTRUDER 03/05/2008 4:30 PM EXTRUDER us Dee Casillas MD HEMATOLOGY ORDERABLES Final Resu lt Performing Organization Address [facility] Phone Number INTERFACE SYSTEM Refer to clinic/hospital department [facility] CLIA# [id number] [address] [place] [address] * ANTIBODY SCREEN (03/05/2008 4:20 PM EXTRUDER) ANTIBODY SCREEN Negative [facility] Blood specimen (specimen) 03/05/2008 4:20 PM EXTRUDER 03/05/2008 4:30 PM EXTRUDER Dee Casillas MD BLOOD BANK ORDERABLES Final Resu lt Performing Organization Address [facility] Phone Number INTERFACE SYSTEM Refer to clinic/hospital department [facility] CLIA# [id number] [address] [place] [address] * ABORH TYPING (03/05/2008 4:20 PM EXTRUDER) ABO/RH TYPE A Positive [facility] Blood specimen (specimen) 03/05/2008 4:20 PM EXTRUDER 03/05/2008 4:30 PM EXTRUDER Dee Casillas MD BLOOD BANK ORDERABLES Final Resu lt Performing Organization Address [facility] Phone Number INTERFACE SYSTEM Refer to clinic/[facility] CLIA# [id number] [address] [place] [address] * (ABNORMAL) COMPREHENSIVE METABOLIC PANEL (03/05/2008 4:20 PM EXTRUDER) ALBUMIN 4.4 3.5 - 5.0 g/dL [facility] POTASSIUM 3.9 3.5 - 5.0 mEq/L [facility] GLOBULIN (CALC) 2.6 2.4 - 3.9 g/dL [facility] CREATININE 0.9 0.7 - 1.5 mg/dL [facility] CALCIUM 9.2 8.4 - 10.5 mg/dL [facility] OSMOLALITY, CALCULATED 289 275 - 295 mOsm/Kg [facility] ALT 17 4 - 36 IU/L [facility] GLUCOSE 118(H) 70 - 110 mg/dL [facility] CHLORIDE 108 95 - 110 mEq/L [facility] ALBUMIN/GLOBULIN RATIO 1.7 1.0 - 2.3 [facility] ALKALINE PHOSPHATASE 71 25 - 100 U/L [facility] SODIUM 141 136 - 145 mEq/L [facility] BILIRUBIN TOTAL 0.3 0.3 - 1.2 mg/dL [facility] TOTAL PROTEIN 7.0 6.3 - 8.2 g/dL [facility] BUN 9 9 - 20 mg/dL [facility] AST 16 8 - 33 U/L [facility] CO2 27 22 - 32 mmol/l [facility] ANION GAP 10 9 - 20 mEq/L [facility] Blood specimen (specimen) 03/05/2008 4:20 PM EXTRUDER 03/05/2008 4:30 PM EXTRUDER us Dee Casillas MD CHEMISTRY ORDERABLES Final Resul t INTERFACE SYSTEM Refer to clinic/hospital department [facility] CLIA# [id number] [facility] [place] [address] documented in this encounter Visit Diagnoses Not on filedocumented in this encounter Care Teams Data Governance Analyst Relationship Specialty Start Date End Date Marsha Turner MD [address] [place] [address] PCP - General Internal Medicine 05/31/12 documented as of this encounter
--- OUTSIDE RECORDS SUMMARY | 2024-10-28 09:52 | XMS_ITS | Encounter Summary ---
Author Organization [facility] Address [address] [place] [address] Care Team Providers Care Aviation Technician Name Role Phone Marsha Turner MD Primary Care Provider +1- [phone] Encounter Details Date Type Department Care Team (Latest Contact Info) Description 06/18/2006 Outpatient Historical [facility] Endoscopy [address] 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
--- OUTSIDE RECORDS SUMMARY | 2024-10-28 09:52 | XMS_ITS | Encounter Summary ---
Author Organization [facility] Address [address] [place] [address] Care Team Providers Care Strategic Analyst Name Role Phone Marsha Turner MD Primary Care Provider +1- [phone] Encounter Details Date Type Department Care Team (Late st Contact Info) Description 07/25/2007 Outpatient [facility] [address] [place] [address] [facility] [address] [place] [address] Dequan Tellez MD NO ADDRESS ON FILE Unilat Ing Hernia Social History Tobacco Use Types Packs/Day Years Used Date Smoking Tobacco: Never Assessed Sex and Gender Information Value Date Recorded Sex Assigned at Not on file Legal Sex Male 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
--- OUTSIDE RECORDS SUMMARY | 2024-10-28 09:52 | XMS_ITS | Encounter Summary ---
Author Organization [facility] Address [address] 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
--- OUTSIDE RECORDS SUMMARY | 2024-10-28 09:52 | XMS_ITS | Encounter Summary ---
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 Region; Cervical Spondylosis without Myelopathy Social History Tobacco Use Types Packs/Day Years Used Date Smoking Tobacco: Never Assessed Sex and Gender Information Value Date Recorded Sex Assigned at Not on file Legal Sex Male 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 Gender Identity Not on file Sexual Orientation Not on file documented as of this encounter Plan of Treatment Not on file documented as of this encounter Procedures Procedure Name Priority Date/Time Associated Diagnosis Comments XR LUMBAR SPINE 2 OR 3 VW Routine 03/05/2008 1:38 PM LOSS PREVENTION ASSOCIATE documented in this encounter Results * XR LUMBAR SPINE 2 OR 3 VW (03/05/2008 1:38 PM LOSS PREVENTION ASSOCIATE) Anatomical Region Laterality Modality Spine Other 03/05/2008 1:38 PM LOSS PREVENTION ASSOCIATE Narrative 03/06/2008 10:42 AM LOSS PREVENTION ASSOCIATE Exam: Spine - Lumbar Date/Time of Exam: [...] myelopathy documented in this encounter Care Teams Sample Coordinator Relationship Specialty Start Date End Date Marsha Turner MD [address] [place] [address] PCP - General Internal Medicine 05/31/12 documented as of this encounter
--- OUTSIDE RECORDS SUMMARY | 2024-10-28 09:52 | XMS_ITS | Encounter Summary ---
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 Gender Identity Not on file Sexual Orientation Not on file documented as of this encounter Plan of Treatment Not on file documented as of this encounter Procedures Procedure Name Priority Date/Time Associated Diagnosis Comments XR LUMBAR SPINE 2 OR 3 VW Routine 02/06/2008 10:19 AM CHILD CARE LEADER documented in this encounter Results * XR LUMBAR SPINE 2 OR 3 VW (02/06/2008 10:19 AM CHILD CARE LEADER) Anatomical Region Laterality Modality Spine Other 02/06/2008 10:1 9 AM CHILD CARE LEADER Narrative 02/06/2008 1:09 PM CHILD CARE LEADER Exam: Spine - Lumbar Date/Time of Exam: [...] site documented in this encounter Care Teams Sales Support Technician Relationship Specialty Start Date End Date Marsha Turner MD [address] [place] [address] PCP - General Internal Medicine 05/31/12 documented as of this encounter
--- OUTSIDE RECORDS SUMMARY | 2024-10-28 09:52 | XMS_ITS | Encounter Summary ---
Author Organization [facility] Address [address] [place] [address] Care Team Providers Care Charge Attendant Name Role Phone Marsha Turner MD Primary Care Provider +1- [phone] Encounter Details Date Type Department Care Team (Late st Contact Info) Description 02/06/2008 Outpatient Historical [facility] DEFAULT DEPARTMENT Dee Casillas MD [address] [phone] Social History Tobacco Use Types Packs/Day Years Used Date Smoking Tobacco: Never Assessed Sex and Gender Information Value Date Recorded Sex Assigned at Not on file Legal Sex Male 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
--- OUTSIDE RECORDS SUMMARY | 2024-10-28 09:52 | XMS_ITS | Encounter Summary ---
Author Organization [facility] Address [address] [place] [address] Care Team Providers Care Injection Machine Operator Name Role Phone Marsha Turner MD Primary Care Provider +1- [phone] Encounter Details Date Type Department Care Team (Late st Contact Info) Description 09/13/2006 Outpatient Historical [facility] [address] 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
--- OUTSIDE RECORDS SUMMARY | 2024-10-28 09:52 | XMS_ITS | Encounter Summary ---
Author Organization [facility] Address [address] [place] [address] Care Team Providers Care Technical Assistance Consultant Name Role Phone Marsha Turner MD Primary Care Provider +1- [phone] Encounter Details Date Type Department Care Team (Late st Contact Info) Description 09/23/2005 Outpatient Historical [facility] Services-[place] [address] [place] [address] Thomas Mack MD NO ADDRESS ON FILE Bilat Ing Hernia (Primary Dx) Social History Tobacco Use Types Packs/Day Years Used Date Smoking Tobacco: Never Assessed Sex and Gender Information Value Date Recorded Sex Assigned at Not on file Legal Sex Male 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
--- OUTSIDE RECORDS SUMMARY | 2024-10-28 09:52 | XMS_ITS | Encounter Summary ---
Author Organization [facility] Address [address] [place] [address] Care Team Providers Care Customer Support Engineer Name Role Phone Marsha Turner MD Primary Care Provider +1- [phone] Encounter Details Date Type Department Care Team (Latest Contact Info) Description 06/14/2006 Outpatient [facility] Gastroenterology[address] [place] [address] Abilio Bagley MD [address] [place] [address] Acute Pancreatitis (Primary Dx) Social History Tobacco Use Types Packs/Day Years Used Date Smoking Tobacco: Never Assessed Sex and Gender Information Value Date Recorded Sex Assigned at Not on file Legal Sex Male 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
--- OUTSIDE RECORDS SUMMARY | 2024-10-28 09:52 | XMS_ITS | Encounter Summary ---
Author Organization [facility] Address [address] [place] [address] Care Team Providers Care Broadcast Checker Name Role Phone Marsha Turner MD Primary Care Provider +1- [phone] Encounter Details Date Type Department Care Team (Latest Contact Info) Description 05/06/2005 Outpatient Historical [facility] Endoscopy [place] [address] [place] [address] [place] [address] Abilio Bagley MD [address] [place] [address] CHEST PAIN NOS (Primary Dx) Social History Tobacco Use Types Packs/Day Years Used Date Smoking Tobacco: Never Assessed Sex and Gender Information Value Date Recorded Sex Assigned at Not on file Legal 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
--- OUTSIDE RECORDS SUMMARY | 2024-10-28 09:52 | XMS_ITS | Clinical Summary ---
Author Organization [facility] Address [address] [place] [address] Care Team Providers Care Movement Education Specialist Name Role Phone Marsha Turner MD Primary Care Provider +1- [phone] Allergies Active Allergy Reactions Criticality Noted Date [...] SYNTHROID 137 mcg tablet 137 mcg daily directional survey drafter. 9 Active liothyronine (CYTOMEL) 5 mcg Tablet 2 Tablets daily directional survey drafter. 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 Gender Identity Not on file Sexual [...] Discontinued Medical Devices Implanted Type Area Manager Market Intelligence Device Identifier Shelf Expiration Date Model / Serial / Lot Vitoss Foam Ba 1.2ml Implanted:Qty: 1 on 04/18/2013 at [facility] Biological N/A: Spine Cervical Anterior LISA- SPINE 10/13/2014 / NA / [id number] Hinkley C Stand Alone Cage [id number] Implanted:Qty: 1 on 04/18/2013 by John Castillo MD at [facility] Cage N/A: Spine Cervical Anterior LISA- SPINE [id number] / LD [id number] / NA Cement Palacos R+G [id number] - Sna Implanted:Qty: 2 on 09/29/2012 at [facility] Cement Left: Knee SHIRA US INC 01/13/201610-4890-792-01 / NA / NA Hemostatic Gelfoam Powder 1gm [id number] - [id number] Implanted:Qty: 1 on 05/20/2015 by Dee Casillas MD at [facility] Hemostatic N/A: Spine Thoracic PFIZER- PHARM 10/12/2017 [id number] / / [id number] Hemostatic Gelfoam Powder 1gm [id number] - [id number] Implanted:Qty: 1 on 09/14/2017 by Dee Casillas MD at [facility] Hemostatic N/A: Back PFIZER- PHARM 11/13/2019 [id number] / / [id number] Gel-Flow Nt Implanted:Qty: 1 on 08/12/2018 by Dee Casillas MD at [facility] Hemostatic N/A: Spine Cervical Anterior PFIZER- PHARMACIA AND UPJOHN I 08/04/2019 / / [id number] Bearing Tib Vng 10mm 79/83mm 500518 - [id number] Implanted:Qty: 1 on 09/29/2012 at [facility] Knee Left: Knee BIOMET INC 05/12/2017 286141 / / [id number] Comp Fem Vng Ps Sz72.5 Lt 191260 - [id number] Implanted:Qty: 1 on 09/29/2012 at [facility] Knee Left: Knee BIOMET INC 06/12/2022 653215 / / [id number] Comp Tib Cocr Finned 83mm 467327 - [id number] Implanted:Qty: 1 on 09/29/2012 at [facility] Knee Left: Knee BIOMET INC 03/14/2022 610049 / / [id number] Standard Patella Implanted:Qty: 1 on 09/29/2012 by Dylon Abreu MD at [facility] Knee Left: Knee BIOMET- ORTHOPEDICS, INC 07/12/2017 932159 / / [id number] Plate Hybrid Cerv 12mm [id number] - Sld [id number] Implanted:Qty: 1 on 04/18/2013 at [facility] Plate N/A: Spine Cervical Anterior LISA- SPINE 11826402 / LD [id number] / NA Issac Lgcy Crv Ti 5.0e369yw 2113759 - [id number] Implanted:Qty: 1 on 09/14/2017 by eDe Casillas MD at [facility] Issac N/A: Back MEDTRONIC- SOFAMOR DANEK 09/15/2019 9815672 / / [id number] Issac Lgcy Crv Ti 5.3f082uk 6058446 - [id number] Implanted:Qty: 1 on 09/14/2017 by Dee Casillas MD at [facility] Issac N/A: Back MEDTRONIC- SOFAMOR DANEK 09/15/2019 6285546 / / [id number] Issac Std 3.0n396nz 9181724 - [id number] Implanted:Qty: 2 on 08/12/2018 by Dee Casillas MD at [facility] Issac N/A: Spine Cervical Anterior MEDTRONIC- SOFAMOR DANEK 5980821 / [id number] / Screw Rh Sd Fa 4.0x14mm 54062789 - Sld [id number] Implanted:Qty: 1 on 04/18/2013 at [facility] Screw N/A: Spine Cervical Anterior LISA- SPINE 39489332 / LD [id number] / NA Screw Sd 3.5x10mm 56531068 - Sld [id number] Implanted:Qty: 2 on 04/18/2013 at [facility] Screw N/A: Spine Cervical Anterior LISA- SPINE 13667171 / LD [id number] / NA Screw Rh St Va 4.0x14mm 83286791 - Sld [id number] Implanted:Qty: 2 on 04/18/2013 at [facility] Screw N/A: Spine Cervical Anterior LISA- SPINE 11272749 / LD [id number] / NA Screw Rh St Fa 4.0x14mm 81216294 - Sld [id number] Implanted:Qty: 1 on 04/18/2013 at [facility] Screw N/A: Spine Cervical Anterior LISA- SPINE 37507927 / LD [id number] / NA Screw Legacy Ma 6.5x50mm 35701555 - [id number] Implanted:Qty: 1 on 09/14/2017 by Dee Casillas MD at [facility] Screw N/A: Back MEDTRONIC- SOFAMOR DANEK 47533116 / / [id number] Screw Legacy Ma 6.5x50mm 28507490 - [id number] Implanted:Qty: 1 on 09/14/2017 by Dee Casillas MD at [facility] Screw N/A: Back MEDTRONIC- SOFAMOR DANEK 59504614 / / [id number] Set Screw Break Off Ti 5213047 - [id number] Implanted:Qty: 1 on 09/14/2017 by Dee Casillas MD at [facility] Screw N/A: Back MEDTRONIC- SOFAMOR DANEK 0063141 / / [id number] Set Screw Break Off Ti 6368308 - [id number] Implanted:Qty: 1 on 09/14/2017 by Dee Casillas MD at [facility] Screw N/A: Back MEDTRONIC- SOFAMOR DANEK 0056121 / / [id number] Set Screw Break Off Ti 1170773 - [id number] Implanted:Qty: 1 on 09/14/2017 by Dee Casillas MD at [facility] Screw N/A: Back MEDTRONIC- SOFAMOR DANEK 5569885 / / [id number] Set Screw Break Off Ti 1781319 - [id number] Implanted:Qty: 1 on 09/14/2017 by Dee Casillas MD at [facility] Screw N/A: Back MEDTRONIC- SOFAMOR DANEK 9234318 / / [id number] Set Screw Break Off Ti 4535615 - [id number] Implanted:Qty: 1 on 09/14/2017 by Dee Casillas MD at [facility] Screw N/A: Back MEDTRONIC- SOFAMOR DANEK 2997027 / / [id number] Screw Legacy Ma 7.5x50mm 89171570 - [id number] Implanted:Qty: 1 on 09/14/2017 by Dee Casillas MD at [facility] Screw N/A: Back MEDTRONIC- SOFAMOR DANEK 00570201 / / [id number] Screw Legacy Ma 7.5x50mm 89979155 - [id number] Implanted:Qty: 1 on 09/14/2017 by Dee Casillas MD at [facility] Screw N/A: Back MEDTRONIC- SOFAMOR DANEK 18995944 / / [id number] Set Screw Break Off Ti 0804319 - [id number] Implanted:Qty: 1 on 09/14/2017 by Dee Casillas MD at [facility] Screw N/A: Back MEDTRONIC- SOFAMOR DANEK 6078192 / / [id number] Set Screw Break Off Ti 3472022 - [id number] Implanted:Qty: 1 on 09/14/2017 by Dee Casillas MD at [facility] Screw N/A: Back MEDTRONIC- SOFAMOR DANEK 6167178 / / [id number] Set Screw Break Off Ti 6292870 - [id number] Implanted:Qty: 1 on 09/14/2017 by Dee Casillas MD at [facility] Screw N/A: Back MEDTRONIC- SOFAMOR DANEK 4241572 / / [id number] Infinity Screw Implanted:Qty: 7 on 08/12/2018 by Dee Casillas MD at [facility] Screw N/A: Spine Cervical Anterior MEDTRONIC- NEUROSURGERY 1994793 / [id number] / Description:PER INVOICE Infinity Screw Implanted:Qty: 2 on 08/12/2018 by Dee Casillas MD at [facility] Screw N/A: Spine Cervical Anterior MEDTRONIC- NEUROSURGERY 1147204 / [id number] / Description:PER INVOICE Infinity Screw Implanted:Qty: 2 on 08/12/2018 by Dee Casillas MD at [facility] Screw N/A: Spine Cervical Anterior MEDTRONIC- NEUROSURGERY 5779337 / [id number] / Description:PER INVOICE Infinity Set Screws Implanted:Qty: 11 on 08/12/2018 by Dee Casillas MD at [facility] Screw N/A: Spine Cervical Anterior 1312281 / [id number] / Description:PER INVOICE Spacer As 1q42t16i7t 58037356 - Sld [id number] Implanted:Qty: 1 on 04/18/2013 at [facility] Spacer N/A: Spine Cervical Anterior LISA- SPINE 97319220 / LD [id number] / NA Crosslink Lp Mltspn L=1.75-2.15 811-322 - [id number] Implanted:Qty: 1 on 09/14/2017 by Dee Casillas MD at [facility] Spine N/A: Back MEDTRONIC- SOFAMOR DANEK 09/15/2019 811-322 / / [id number] Description:09/17 inv pricing Readigraft Canc Chips 30ml Can30 14bp - [id number] Implanted:Qty: 1 on 09/14/2017 by Dee Casillas MD at [facility] Tissue N/A: Back LIFENET 08/20/2019 CAN30 14BP / / [id number] Putty Bio Dbm 10ml 8091707 - [id number] Implanted:Qty: 1 on 09/14/2017 by Dee Casillas MD at [facility] Tissue N/A: Back LISA- HOWMEDICA INT INC 05/27/2019 6557089 / / [id number] Putty Bio Dbm 10ml 3821713 - [id number] Implanted:Qty: 1 on 09/14/2017 by Dee Casillas MD at [facility] Tissue N/A: Back LISA- HOWMEDICA INT INC 05/16/2019 8654261 / / [id number] Putty Bio Dbm 10ml 6758524 - [id number] Implanted:Qty: 1 on 08/12/2018 by Dee Casillas MD at [facility] Tissue N/A: Spine Cervical Anterior LISA- HOWMEDICA INT INC 04/13/2020 2873152 / / [id number] Putty Bio Dbm 10ml 9817459 - [id number] Implanted:Qty: 1 on 08/12/2018 by Dee Casillas MD at [facility] Tissue N/A: Spine Cervical Anterior LISA- HOWMEDICA INT INC 04/13/2020 6120025 / / [id number] Explanted Type Area Manager Market Intelligence Device Identifier Shelf Expiration Date Model / Serial / Lot Stim Spnl Cord Precision Spectra [id number] - [id number] Implanted:Qty: 1 on 05/20/2015 by Dee Casillas MD at [facility] Explanted:Qty: 1 on 06/15/2016 by Dee Casillas MD at [facility] Neuro Right: Spine Thoracic [employer]- NEURO MODULATION 05/02/2017 OH-1132 / / [id number] Infinity Set Screws Explanted:Qty: 2 on 08/12/2018 at [facility] Screw N/A: Spine Cervical Anterior MEDTRONIC- NEUROSURGERY 8467382 / [id number] / Description:PER INVOICE Cover Edge 32 70cm 4x8 Communications Department Head Kit [id number] Implanted:Qty: 1 on 05/20/2015 by Dee Casillas MD at [facility] Explanted:Qty: 1 on 06/15/2016 by Dee Casillas MD at [facility] N/A: Spine Thoracic [employer] INC 02/11/2017 / [id number] / [id number] Set Screws X4, Blockers X4, And 2 Rods Explanted:Qty: 1 on 09/14/2017 by Dee Casillas MD at [facility] N/A: Spine Cervical Anterior Insurance MEDICARE PART A AND B GENERIC PAYOR RX [facility] Medicare Part D [facility] MEDICARE PART A AND B Advance Directives For more information, please contact: [phone] * Full Code (Latest Code Status on [...] 9:28 AM 06/15/2016 5:17 PM Care Teams Movement Education Specialist Relationship Specialty Start Date End Date Marsha Turner MD [address] [place] [address] PCP - General Internal Medicine 05/31/12
--- OUTSIDE RECORDS SUMMARY | 2024-10-28 09:52 | XMS_ITS | Encounter Summary ---
Author Organization [facility] Address [address] 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
--- OUTSIDE RECORDS SUMMARY | 2024-10-28 09:52 | XMS_ITS | Encounter Summary ---
Author Organization [facility] Address [address] [place] [address] Care Team Providers Care Weight Analyst Name Role Phone Marsha Turner MD Primary Care Provider +1- [phone] Encounter Details Date Type Department Care Team (Late st Contact Info) Description 05/27/2006 Outpatient Historical [facility] [address] 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
--- OUTSIDE RECORDS SUMMARY | 2024-10-28 09:52 | XMS_ITS | Encounter Summary ---
Author Organization [facility] Address [address] [place] [address] Care Team Providers Care Sandfill Operator Name Role Phone Marsha Turner MD Primary Care Provider +1- [phone] Encounter Details Date Type Department Care Team (Latest Contact Info) Description 11/30/2005 Outpatient Historical [facility] Laura [address] [place] [address] David Teresa MD NO ADDRESS ON FILE Cough (Primary Dx); Other Dyspnea and Respiratory Abnormality Social History Tobacco Use Types Packs/Day Years Used Date Smoking Tobacco: Never Assessed Sex and Gender Information Value Date Recorded Sex Assigned at Not on file Legal Sex Male 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
--- OUTSIDE RECORDS SUMMARY | 2024-10-28 09:52 | XMS_ITS | Encounter Summary ---
Author Organization [facility] Address [address] [place] [address] Care Team Providers Care Credit Reporting Clerk Name Role Phone Marsha Turner MD Primary Care Provider +1- [phone] Encounter Details Date Type Department Care Team (Latest Contact Info) Description 06/25/2006 Outpatient [facility] Gastroenterology[address] [place] [address] Abilio Bagley MD [address] [place] [address] Abdominal Pain, Right Upper Quadrant (Primary Dx); Chronic Pancreatitis (CMS/HCC); Nonspecific Abnormal Results of Liver Function Study Social History Tobacco Use Types Packs/Day Years Used Date Smoking Tobacco: Never Assessed Sex and Gender Information Value Date Recorded Sex Assigned at Not on file Legal Sex Male 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
--- OUTSIDE RECORDS SUMMARY | 2024-10-28 09:52 | XMS_ITS | Encounter Summary ---
Author Organization [facility] Address [address] [place] [address] Care Team Providers Care Picu Nurse Name Role Phone Marsha Turner MD Primary Care Provider +1- [phone] Encounter Details Date Type Department Care Team (Late st Contact Info) Description 11/05/2005 Outpatient Historical [facility] [address] 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
--- OUTSIDE RECORDS SUMMARY | 2024-10-28 09:52 | XMS_ITS | Encounter Summary ---
Author Organization [facility] Address [address] [place] [address] Care Team Providers Care Interactive Graphic Designer Name Role Phone Marsha Turner MD Primary Care Provider +1- [phone] Encounter Details Date Type Department Care Team (Late st Contact Info) Description 03/05/2008 Outpatient Historical [facility] DEFAULT DEPARTMENT Dee Casillas MD [address] [phone] Social History Tobacco Use Types Packs/Day Years Used Date Smoking Tobacco: Never Assessed Sex and Gender Information Value Date Recorded Sex Assigned at Not on file Legal Sex Male 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
--- OUTSIDE RECORDS SUMMARY | 2024-10-28 09:52 | XMS_ITS | Encounter Summary ---
Author Organization [facility] Address [address] [place] [address] Care Team Providers Care Inside Sales Engineer Name Role Phone Marsha Turner MD Primary Care Provider +1- [phone] Encounter Details Date Type Department Care Team (Latest Contact Info) Description 05/06/2005 Outpatient [facility] Gastroenterology[address] [place] [address] Abilio Bagley MD [address] [place] [address] CHEST PAIN NOS (Primary Dx) Social History Tobacco Use Types Packs/Day Years Used Date Smoking Tobacco: Never Assessed Sex and Gender Information Value Date Recorded Sex Assigned at Not on file Legal Sex Male 6:16 AM SPEECH THERAPIST EARLY INTERVENTION Gender Identity Not on file Sexual Orientation Not on file documented as of this encounter Plan of Treatment Not on file documented as of this encounter Visit Diagnoses Diagnosis Chest pain, unspecified- Primary documented in this encounter Care Teams Inside Sales Engineer Relationship Specialty Start Date End Date Marsha Turner MD [address] [place] [address] PCP - General Internal Medicine 05/31/12 documented as of this encounter
--- OUTSIDE RECORDS SUMMARY | 2024-10-28 09:52 | XMS_ITS | Encounter Summary ---
Author Organization [facility] Address [address] [place] [address] Care Team Providers Care Air Brake Worker Name Role Phone Marsha Turner MD Primary Care Provider +1- [phone] Encounter Details Date Type Department Care Team (Latest Contact Info) Description 07/12/2006 Outpatient [facility] Gastroenterology[address] [place] [address] Abilio Bagley MD [address] [place] [address] Spasm Sphincter of Oddi (Primary Dx) Social History Tobacco Use Types Packs/Day Years Used Date Smoking Tobacco: Never Assessed Sex and Gender Information Value Date Recorded Sex Assigned at Not on file Legal Sex Male 6:16 AM CAREER 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
--- OUTSIDE RECORDS SUMMARY | 2024-10-28 09:52 | XMS_ITS | Encounter Summary ---
Author Organization [facility] Address [address] [place] [address] Care Team Providers Care Waiter/Waitress Economy Class Name Role Phone Marsha Turner MD Primary Care Provider +1- [phone] Encounter Details Date Type Department Care Team (Late st Contact Info) Description 12/22/2007 Outpatient Historical [facility] Pain [facility] [address] [place] [address] Kamar Leach MD NO ADDRESS ON FILE Social History Tobacco Use Types Packs/Day Years Used Date Smoking Tobacco: Never Assessed Sex and Gender Information Value Date Recorded Sex Assigned at Not on file Legal Sex Male 6:16 AM 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
--- OUTSIDE RECORDS SUMMARY | 2024-10-28 09:52 | XMS_ITS | Encounter Summary ---
Author Organization [facility] Address [address] [place] [address] Care Team Providers Care Mixing Technician Name Role Phone Marsha Turner MD Primary Care Provider +1- [phone] Encounter Details Date Type Department Care Team (Late st Contact Info) Description 12/08/2007 Outpatient Historical [facility] DEFAULT DEPARTMENT Dee Casillas MD [address] [phone] Social History Tobacco Use Types Packs/Day Years Used Date Smoking Tobacco: Never Assessed Sex and Gender Information Value Date Recorded Sex Assigned at Not on file Legal Sex Male 6:16 AM SNUFF MAKER Gender Identity Not on file Sexual Orientation Not on file documented as of this encounter Plan of Treatment Not on file documented as of this encounter Visit Diagnoses Not on filedocumented in this encounter Care Teams Mixing Technician Relationship Specialty Start Date End Date Marsha Turner MD [address] [place] [address] PCP - General Internal Medicine 05/31/12 documented as of this encounter
--- OUTSIDE RECORDS SUMMARY | 2024-10-28 09:52 | XMS_ITS | Encounter Summary ---
Author Organization [facility] Address [address] [place] [address] Care Team Providers Care Sales Floor Manager Name Role Phone Marsha Turner MD Primary Care Provider +1- [phone] Encounter Details Date Type Department Care Team (Late st Contact Info) Description 10/17/2007 Outpatient Historical [facility] PreAdmission [place] [address] [place] [address] Thomas Mack MD NO ADDRESS ON FILE Social History Tobacco Use Types Packs/Day Years Used Date Smoking Tobacco: Never Assessed Sex and Gender Information Value Date Recorded Sex Assigned at Not on file Legal Sex Male 6:16 AM RIDING COACH Gender Identity Not on file Sexual Orientation Not on file documented as of this encounter Miscellaneous Notes * Scanned Form - Sgf Scanning, Test - 03/31/2010 7:35 AM RIDING COACH documented in this encounter Plan of Treatment [...] 6:43 PM CDT) COLOR UA Yellow Straw [facility] PROTEIN UA NEGATIVE NEGATIVE [facility] BLOOD UA NEGATIVE NEGATIVE [facility] NITRITE UA NEGATIVE NEGATIVE [facility] UROBILINOGEN UA 0.2 0.2 [facility] CLARITY UA Clear Clear [facility] SPECIFIC GRAVITY UA 1.025 <=1.005 [facility] GLUCOSE UA NEGATIVE NEGATIVE [facility] PH UA 5.5 5.0 - 9.0 [facility] BILIRUBIN UA NEGATIVE NEGATIVE [facility] LEUKOCYTE ESTERASE UA NEGATIVE NEGATIVE [facility] KETONES UA NEGATIVE NEGATIVE [facility] MICRO EXAM No No [facility] Urine specimen (specimen) 10/17/2007 6:43 PM CDT 10/17/2007 6:43 PM CDT Thomas Mack MD URINE ORDERABLES Final Result Performing Organization Address [facility] de Phone Number [facility] CLIA# [id number] [address] [place] [address] * PSA MEDICARE SCREEN (10/17/2007 6:00 PM CDT) PSA 0.8 0.0 - 4.0 ng/mL [facility] Blood specimen (specimen) 10/17/2007 6:00 PM CDT 10/17/2007 6:05 PM CDT Thomas Mack MD CHEMISTRY ORDERABLES C OM Final Result Performing Organization Address [facility] de Phone Number [facility] CLIA# [id number] [address] [place] [address] * (ABNORMAL) CBC WITH DIFFERENTIAL (10/17/2007 6:00 PM CDT) MONOCYTES 8.9 2.0 - 10.0 % [facility] RDW 13.8 11.0 - 14.5 % [facility] MONOCYTE ABSOLUTE 0.5 0.1 - 0.6 K/ul [facility] WBC 5.3 4.8 - 10.8 K/ul [facility] NEUTROPHILS 72.9 42.2 - 75.2 % [facility] MCH 29.6 27.0 - 34.0 pg [facility] NEUTROPHIL ABSOLUTE 3.9 2.0 - 8.0 K/ul [facility] HEMATOCRIT 38.6(L) 41.0 - 53.0 % [facility] PLATELETS 190 140 - 440 K/ul [facility] EOSINOPHIL ABSOLUTE 0.1 0.0 - 0.7 K/ul [facility] EOSINOPHILS 1.5 0.0 - 7.0 % [facility] RBC 4.29(L) 4.60 - 6.20 Mil/ul [facility] MCHC 32.9 30.0 - 35.0 g/dL [facility] LYMPHOCYTE ABSOLUTE 0.8(L) 1.2 - 4.0 K/ul [facility] LYMPHOCYTES 15.8(L) 24.0 - 44.0 % [facility] MCV 90.0 84.0 - 103.0 Fl [facility] BASOPHILS 0.9 0.0 - 1.0 % [facility] MPV 9.6 8.9 - 12.8 Fl [facility] BASOPHILS ABSOLUTE 0.1 0.0 - 0.2 K/ul [facility] HEMOGLOBIN 12.7(L) 14.0 - 18.0 g/dL [facility] Blood specimen (specimen) 10/17/2007 6:00 PM CDT 10/17/2007 6:05 PM CDT Thomas Mack MD HEMATOLOGY ORDERABLES Final Result Performing Organization Address [facility] de Phone Number [facility] CLIA# [id number] [address] [place] [address] * ANTIBODY SCREEN (10/17/2007 6:00 PM CDT) [facility] Signature ANTIBODY SCREEN Negative [facility] Blood specimen (specimen) 10/17/2007 6:00 PM CDT 10/17/2007 6:05 PM CDT Thomas Mack MD BLOOD BANK ORDERABLES Final Result Performing Organization Address [facility] de Phone Number [facility] CLIA# [id number] [address] [place] [address] * ABORH TYPING (10/17/2007 6:00 PM CDT) ABO/RH TYPE A Positive [facility] Blood specimen (specimen) 10/17/2007 6:00 PM CDT 10/17/2007 6:05 PM CDT Thomas Mack MD BLOOD BANK ORDERABLES Final Result Performing Organization Address [facility] de Phone Number [facility] CLIA# [id number] [address] [place] [address] * PTT (10/17/2007 6:00 PM CDT) PTT 31.3 22.5 - 36.5 Secs [facility] Comment: Therapeutic Range: Hi-level PE/DVT [...] HEMATOLOGY ORDERABLES Final Result Performing Organization Address [facility] de Phone Number [facility] CLIA# [id number] [address] [place] [address] * PROTIME-INR (10/17/2007 6:00 PM CDT) PROTIME 13.6 12.8 - 15.8 Secs [facility] Comment:As of 2007 not e change in normal range. INR 0.9 [facility] Comment: Expected Values for INR: DVT/PE Goal INR 2.5; range 2.0 - 3.0 Valve Replacement Tissue Goal INR 2.5; range 2.0 - 3.0 Mechanical Goal INR 3.0; range 2.5 - 3.5 POST-AZ Goal INR 2.5; range 2.0 - 3.0 or Goal 3.0; range 2.5 - 3.5 Atrial Fibrillation Goal INR 2.5; range 2.0 - 3.0 Ischemic Stroke Goal INR 2.5; range 2.0 - 3.0 For additional information see Guidelines for Anticoagulation available from the pharmacy Nichelle Mike [phone] Blood specimen (specimen) 10/17/2007 6:00 PM CDT 10/17/2007 6:05 PM CDT us Thomas Mack MD HEMATOLOGY ORDERABLES Final Result [facility] CLIA# [id number] [address] [place] [address] * COMPREHENSIVE METABOLIC PANEL (10/17/2007 6:00 PM CDT) CREATININE 1.0 0.7 - 1.5 mg/dL [facility] ALT 32 4 - 36 IU/L [facility] CALCIUM 10.0 8.4 - 10.5 mg/dL [facility] OSMOLALITY, CALCULATED 287 275 - 295 mOsm/Kg [facility] GLUCOSE 108 70 - 110 mg/dL [facility] ALKALINE PHOSPHATASE 67 25 - 100 U/L [facility] CHLORIDE 108 95 - 110 mEq/L [facility] ALBUMIN/GLOBULIN RATIO 1.5 1.0 - 2.3 [facility] TOTAL PROTEIN 7.5 6.3 - 8.2 g/dL [facility] SODIUM 139 136 - 145 mEq/L [facility] BILIRUBIN TOTAL 0.4 0.3 - 1.2 mg/dL [facility] BUN 16 9 - 20 mg/dL [facility] CO2 26 22 - 32 mmol/l [facility] ANION GAP 9 9 - 20 mEq/L [facility] AST 27 8 - 33 U/L [facility] POTASSIUM 3.7 3.5 - 5.0 mEq/L [facility] GLOBULIN (CALC) 3.0 2.4 - 3.9 g/dL [facility] ALBUMIN 4.5 3.5 - 5.0 g/dL [facility] Blood specimen (specimen) 10/17/2007 6:00 PM CDT 10/17/2007 6:05 PM CDT us Thomas Mack MD CHEMISTRY ORDERABLES F inal Result [facility] CLIA# [id number] [address] [place] [address] documented in this encounter Visit Diagnoses Not on filedocumented in this encounter Care Teams Sales Floor Manager Relationship Specialty Start Date End Date Marsha Turner MD [address] [place], [place] [address] PCP - General Internal Medicine 05/31/12 documented as of this encounter
--- OUTSIDE RECORDS SUMMARY | 2024-10-28 09:52 | XMS_ITS | Encounter Summary ---
Author Organization [employer] [facility] Address [address] [place] [address] Care Team Providers Care Professional Model Name Role Phone Marsha Turner MD Primary Care Provider +1- [phone] Encounter Details Date Type Department Care Team (Late st Contact Info) Description 08/30/2007 [facility] [address] [place] [address] Thomas Mack MD NO ADDRESS ON FILE Malignant Neoplasm of Prostate (CMS/HCC) Social History Tobacco Use Types Packs/Day Years Used Date Smoking Tobacco: Never Assessed Sex and Gender Information Value Date Recorded Sex Assigned at Not on file Legal Sex Male 6: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 Gender Identity Not on file Sexual Orientation Not on file documented as of this encounter Plan of Treatment Not on file documented as of this encounter Procedures Procedure Name Priority Date/Time Associated Diagnosis Comments PSA MEDICARE DIAGNOSTIC Routine 08/30/2007 1:25 PM CDT documented in this encounter Results * PSA MEDICARE DIAGNOSTIC (08/30/2007 1:25 PM CDT) PSA 1.0 0.0 - 4.0 ng/mL [facility] Blood specimen (specimen) 08/30/2007 1:25 PM CDT 08/30/2007 3:26 PM CDT us Thomas Mack MD CHEMISTRY ORDERABLES F inal Result [facility] CLIA# [id number] [address] [place] [address] documented in this encounter Visit Diagnoses Diagnosis Malignant neoplasm of prostate (CMS/HCC) Malignant neoplasm of prostate documented in this encounter Care Teams Professional Model Relationship Specialty Start Date End Date Marsha Turner MD [address] [place] [address] PCP - General Internal Medicine 05/31/12 documented as of this encounter
--- OUTSIDE RECORDS SUMMARY | 2024-10-28 09:52 | XMS_ITS | Encounter Summary ---
Author Organization [facility] Address [address] [place] [address] Care Team Providers Care Bunch Maker Hand Name Role Phone Marsha Turner MD Primary Care Provider +1- [phone] Encounter Details Date Type Department Care Team (Late st Contact Info) Description 06/14/2006 Outpatient Historical [facility] [place] [facility] [address] 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
--- OUTSIDE RECORDS SUMMARY | 2024-10-28 09:52 | XMS_ITS | Encounter Summary ---
Author Organization [facility] Address [address] [place] [address] Care Team Providers Care Speech And Hearing Clinic Director Name Role Phone Marsha Turner MD Primary Care Provider +1- [phone] Encounter Details Date Type Department Care Team (Late st Contact Info) Description 03/05/2008 Outpatient Historical [facility] IN BED Dee Casillas MD [address] [address] Social History Tobacco Use Types [...] Comments POC GLUCOSE Routine 03/16/2008 1:37 PM BAD CREDIT COLLECTOR POC GLUCOSE Routine 03/16/2008 9:28 AM BAD CREDIT COLLECTOR documented in this encounter Results * (ABNORMAL) POC GLUCOSE (03/16/2008 1:37 PM BAD CREDIT COLLECTOR) GLUCOSE POC 115(H) 60 - 100 mg/dL [facility] Comment:POC Glucose - waived testing: CLIA #[id number] Venous blood specimen (specimen) 03/16/2008 1:37 PM BAD CREDIT COLLECTOR 03/17/2008 2:21 AM BAD CREDIT COLLECTOR Dee Casillas MD POINT OF CARE TESTING Final Resu lt Performing Organization Address [facility] de Phone Number INTERFACE SYSTEM Refer to clinic/hospital department [facility] CLIA# [id number] [address] [place] [address] * (ABNORMAL) POC GLUCOSE (03/16/2008 9:28 AM BAD CREDIT COLLECTOR) GLUCOSE POC 132(H) 60 - 100 mg/dL [facility] Comment:POC Glucose - waived testing: CLIA #[id number] Venous blood specimen (specimen) 03/16/2008 9:28 AM BAD CREDIT COLLECTOR 03/17/2008 1:24 AM BAD CREDIT COLLECTOR Dee Casillas MD POINT OF CARE TESTING Final Resu lt Performing Organization Address [facility] de Phone Number INTERFACE SYSTEM Refer to clinic/hospital department [facility] CLIA# [id number] [address] [place] [address] documented in this encounter Visit Diagnoses Not on filedocumented in this encounter Care Teams Speech And Hearing Clinic Director Relationship Specialty Start Date End Date Marsha Turner MD [address] [place] [id number] PCP - General Internal Medicine 05/31/12 documented as of this encounter
--- OUTSIDE RECORDS SUMMARY | 2024-10-28 09:52 | XMS_ITS | Encounter Summary ---
Author Organization [facility] Address [address] [place] [address] Care Team Providers Care Multi Punch Operator Name Role Phone Marsha Turner MD Primary Care Provider +1- [phone] Encounter Details Date Type Department Care Team (Late st Contact Info) Description 10/14/2007 Outpatient Historical [facility] IN BED Thomas Mack MD NO ADDRESS ON FILE Social History Tobacco Use Types Packs/Day Years Used Date Smoking Tobacco: Never Assessed Sex and Gender Information Value Date Recorded Sex Assigned at Not on file Legal Sex Male 6:16 AM CONSOLE ASSEMBLER Gender Identity Not on file Sexual Orientation Not on file documented as of this encounter Plan of Treatment Not on file documented as of this encounter Visit Diagnoses Not on filedocumented in this encounter Care Teams Multi Punch Operator Relationship Specialty Start Date End Date Marsha Turner MD [address] [place], [place] [id number] PCP - General Internal Medicine 05/31/12 documented as of this encounter
--- OUTSIDE RECORDS SUMMARY | 2024-10-28 09:52 | XMS_ITS | Encounter Summary ---
Author Organization [facility] Address [address] [place] [address] Care Team Providers Care Merchandising Execution Associate Name Role Phone Marsha Turner MD Primary Care Provider +1- [phone] Encounter Details Date Type Department Care Team (Late st Contact Info) Description 09/23/2005 Outpatient Historical [facility] [place] [facility] [place] [place] [address] [place], [place] [address] Thomas Mack MD NO ADDRESS ON FILE Malig Thierno Prostate (Primary Dx); Other Abnormality of Urination; Urinary Frequency; Unspecified Backache Social History Tobacco Use Types Packs/Day Years Used Date Smoking Tobacco: Never Assessed Sex and Gender Information Value Date Recorded Sex Assigned at Not on file Legal Sex Male 6:16 AM EVALUATOR TRANSFER STUDENTS Gender Identity Not on file Sexual Orientation Not on file documented as of this encounter Plan of Treatment Not on file documented as of this encounter Visit Diagnoses Diagnosis Malig thierno prostate- Primary Malignant neoplasm of prostate Other abnormality of urination(788.69) Other abnormality of urination Urinary frequency Backache, unspecified documented in this encounter Care Teams Merchandising Execution Associate Relationship Specialty Start Date End Date Marsha Turner MD [address] [place], [place] [address] PCP - General Internal Medicine 05/31/12 documented as of this encounter
--- OUTSIDE RECORDS SUMMARY | 2024-10-28 09:52 | XMS_ITS | Encounter Summary ---
Author Organization [facility] Address [address] [place] [address] Care Team Providers Care Hydraulic Jack Operator Name Role Phone Marsha Turner MD Primary Care Provider +1- [phone] Encounter Details Date Type Department Care Team (Latest Contact Info) Description 06/25/2006 Outpatient Historical [facility] Operating Room [address] [place] [phone] Abilio Bagley MD [address] [place] [address] Abdominal Pain, Right Upper Quadrant (Primary Dx) Social History Tobacco Use Types Packs/Day Years Used Date Smoking Tobacco: Never Assessed Sex and Gender Information Value Date Recorded Sex Assigned at Not on file Legal Sex Male 6:16 AM STATISTICAL ASSISTANT Gender Identity Not on file Sexual Orientation Not on file documented as of this encounter Plan of Treatment Not on file documented as of this encounter Visit Diagnoses Diagnosis Abdominal pain, right upper quadrant- Primary documented in this encounter Care Teams Hydraulic Jack Operator Relationship Specialty Start Date End Date Marsha Turner MD [address] [place], [place] [id number] PCP - General Internal Medicine 05/31/12 documented as of this encounter
--- OUTSIDE RECORDS SUMMARY | 2024-10-28 09:52 | XMS_ITS | Encounter Summary ---
Author Organization [facility] Address [address] [place] [address] Care Team Providers Care Data Analysis Assistant Name Role Phone Marsha Turner MD Primary Care Provider +1- [phone] Encounter Details Date Type Department Care Team (Latest Contact Info) Description 12/16/2007 Outpatient Historical [facility] RADIOLOGY NEUROP Dee Casillas MD [address] [address] Brachial Neuritis or Radiculitis NOS Social History Tobacco Use Types Packs/Day Years Used Date Smoking Tobacco: Never Assessed Sex and Gender Information Value Date Recorded Sex Assigned at Not on file 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
--- OUTSIDE RECORDS SUMMARY | 2024-10-28 09:52 | XMS_ITS | Encounter Summary ---
Author Organization [facility] Address [address] [place] [address] Care Team Providers Care Manager Mobile Name Role Phone Marsha Turner MD Primary Care Provider +1- [phone] Encounter Details Date Type Department Care Team (Late st Contact Info) Description 01/03/2008 Outpatient Historical HIS IN BED Dee Casillas MD [address] [address] Social History Tobacco Use Types Packs/Day Years Used Date Smoking Tobacco: Never Assessed Sex and Gender Information Value Date Recorded Sex Assigned at Not on file Legal Sex Male 6:16 AM PAYROLL BENEFITS ADMINISTRATOR Gender Identity Not on file Sexual Orientation Not on file documented as of this encounter Plan of Treatment Not on file documented as of this encounter Procedures Procedure Name Priority Date/Time Associated Diagnosis Comments CBC WITH DIFFERENTIAL Routine 01/26/2008 4:13 AM PAYROLL BENEFITS ADMINISTRATOR COMPREHENSIVE METABOLIC PANEL Routine 01/26/2008 4:13 AM PAYROLL BENEFITS ADMINISTRATOR CBC WITH DIFFERENTIAL Routine 01/25/2008 3:17 AM PAYROLL BENEFITS ADMINISTRATOR COMPREHENSIVE METABOLIC PANEL Routine 01/25/2008 3:17 AM PAYROLL BENEFITS ADMINISTRATOR POC GLUCOSE Routine 01/25/2008 12:12 AM PAYROLL BENEFITS ADMINISTRATOR POC GLUCOSE Routine 01/24/2008 7:55 PM PAYROLL BENEFITS ADMINISTRATOR XR FLUORO GREATER THAN 1 HOUR Routine 01/24/2008 4:26 PM PAYROLL BENEFITS ADMINISTRATOR HEMOGLOBIN AND HEMATOCRIT Stat 01/24/2008 3:06 PM PAYROLL BENEFITS ADMINISTRATOR ABORH TYPING Stat 01/24/2008 9:50 AM PAYROLL BENEFITS ADMINISTRATOR TYPE AND CROSSMATCH Stat 01/24/2008 9 :50 AM PAYROLL BENEFITS ADMINISTRATOR BLOOD BANK ANTIBODY SCREEN Stat 01/24/2008 9:50 AM PAYROLL BENEFITS ADMINISTRATOR documented in this encounter Results * (ABNORMAL) COMPREHENSIVE METABOLIC PANEL (01/26/2008 4:13 AM PAYROLL BENEFITS ADMINISTRATOR) ALKALINE PHOSPHATASE 44 25 - 100 U/L [facility] CHLORIDE 108 95 - 110 mEq/L [facility] OSMOLALITY, CALCULATED 281 275 - 295 mOsm/Kg [facility] GLOBULIN (CALC) 2.1(L) 2.4 - 3.9 g/dL [facility] TOTAL PROTEIN 5.1(L) 6.3 - 8.2 g/dL [facility] SODIUM 137 136 - 145 mEq/L [facility] BILIRUBIN TOTAL 0.4 0.3 - 1.2 mg/dL [facility] CO2 26 22 - 32 mmol/l [facility] BUN 7(L) 9 - 20 mg/dL [facility] AST 22 8 - 33 U/L [facility] ALBUMIN/GLOBULIN RATIO 1.4 1.0 - 2.3 [facility] POTASSIUM 3.9 3.5 - 5.0 mEq/L [facility] ANION GAP 7(L) 9 - 20 mEq/L [facility] ALBUMIN 3.0(L) 3.5 - 5.0 g/dL [facility] CREATININE 0.6(L) 0.7 - 1.5 mg/dL [facility] ALT 13 4 - 36 IU/L [facility] CALCIUM 8.1(L) 8.4 - 10.5 mg/dL [facility] GLUCOSE 113(H) 70 - 110 mg/dL [facility] Blood specimen (specimen) 01/26/2008 4:13 AM PAYROLL BENEFITS ADMINISTRATOR 01/26/2008 4:49 AM PAYROLL BENEFITS ADMINISTRATOR us Dee Casillas MD CHEMISTRY ORDERABLES Final Resul t Performing Organization Address City/State/[facility] Co de Phone Number INTERFACE SYSTEM Refer to clinic/hospital department [facility] CLIA# [id number] [address] [place] [address] * (ABNORMAL) CBC WITH DIFFERENTIAL (01/26/2008 4:13 AM PAYROLL BENEFITS ADMINISTRATOR) WBC 5.4 4.8 - 10.8 K/ul [facility] MCH 29.9 27.0 - 34.0 pg [facility] NEUTROPHIL ABSOLUTE 4.0 2.0 - 8.0 K/ul [facility] NEUTROPHILS 72.9 42.2 - 75.2 % [facility] HEMATOCRIT 28.4(L) 41.0 - 53.0 % [facility] EOSINOPHILS 1.3 0.0 - 7.0 % [facility] PLATELETS 187 140 - 440 K/ul [facility] EOSINOPHIL ABSOLUTE 0.1 0.0 - 0.7 K/ul [facility] RBC 3.14(L) 4.60 - 6.20 Mil/ul [facility] LYMPHOCYTES 13.6(L) 24.0 - 44.0 % [facility] MCHC 33.1 30.0 - 35.0 g/dL [facility] LYMPHOCYTE ABSOLUTE 0.7(L) 1.2 - 4.0 K/ul [facility] MCV 90.4 84.0 - 103.0 Fl [facility] MPV 9.0 8.9 - 12.8 Fl [facility] BASOPHILS ABSOLUTE 0.0 0.0 - 0.2 K/ul [facility] BASOPHILS 0.4 0.0 - 1.0 % [facility] HEMOGLOBIN 9.4(L) 14.0 - 18.0 g/dL [facility] RDW 13.9 11.0 - 14.5 % [facility] MONOCYTE ABSOLUTE 0.6 0.1 - 0.6 K/ul [facility] MONOCYTES 11.8(H) 2.0 - 10.0 % [facility] Blood specimen (specimen) 01/26/2008 4:13 AM PAYROLL BENEFITS ADMINISTRATOR 01/26/2008 4:49 AM PAYROLL BENEFITS ADMINISTRATOR us Dee Casillas MD HEMATOLOGY ORDERABLES Final Resu lt INTERFACE SYSTEM Refer to clinic/hospital department [facility] CLIA# [id number] [address] [place] [address] * (ABNORMAL) COMPREHENSIVE METABOLIC PANEL (01/25/2008 3:17 AM PAYROLL BENEFITS ADMINISTRATOR) CALCIUM 7.7(L) 8.4 - 10.5 mg/dL [facility] CREATININE 0.7 0.7 - 1.5 mg/dL [facility] ALT 18 4 - 36 IU/L [facility] GLUCOSE 127(H) 70 - 110 mg/dL [facility] CHLORIDE 111(H) 95 - 110 mEq/L [facility] OSMOLALITY, CALCULATED 283 275 - 295 mOsm/Kg [facility] ALKALINE PHOSPHATASE 47 25 - 100 U/L [facility] GLOBULIN (CALC) 1.8(L) 2.4 - 3.9 g/dL [facility] SODIUM 138 136 - 145 mEq/L [facility] BILIRUBIN TOTAL 0.4 0.3 - 1.2 mg/dL [facility] TOTAL PROTEIN 4.8(L) 6.3 - 8.2 g/dL [facility] BUN 8(L) 9 - 20 mg/dL [facility] AST 21 8 - 33 U/L [facility] CO2 27 22 - 32 mmol/l [facility] ALBUMIN/GLOBULIN RATIO 1.7 1.0 - 2.3 [facility] ALBUMIN 3.0(L) 3.5 - 5.0 g/dL [facility] POTASSIUM 3.7 3.5 - 5.0 mEq/L [facility] ANION GAP 4(L) 9 - 20 mEq/L [facility] Blood specimen (specimen) 01/25/2008 3:17 AM PAYROLL BENEFITS ADMINISTRATOR 01/25/2008 3:41 AM PAYROLL BENEFITS ADMINISTRATOR us Dee Casillas MD CHEMISTRY ORDERABLES Final Resul t INTERFACE SYSTEM Refer to clinic/hospital department [facility] CLIA# [id number] [address] [place] [address] * (ABNORMAL) CBC WITH DIFFERENTIAL (01/25/2008 3:17 AM PAYROLL BENEFITS ADMINISTRATOR) MCV 90.4 84.0 - 103.0 Fl [facility] MPV 9.0 8.9 - 12.8 Fl [facility] BASOPHILS 0.6 0.0 - 1.0 % [facility] BASOPHILS ABSOLUTE 0.0 0.0 - 0.2 K/ul [facility] HEMOGLOBIN 9.1(L) 14.0 - 18.0 g/dL [facility] RDW 14.2 11.0 - 14.5 % [facility] MONOCYTES 10.1(H) 2.0 - 10.0 % [facility] MONOCYTE ABSOLUTE 0.5 0.1 - 0.6 K/ul [facility] WBC 5.1 4.8 - 10.8 K/ul [facility] MCH 30.2 27.0 - 34.0 pg [facility] NEUTROPHILS 73.7 42.2 - 75.2 % [facility] NEUTROPHIL ABSOLUTE 3.7 2.0 - 8.0 K/ul [facility] HEMATOCRIT 27.2(L) 41.0 - 53.0 % [facility] PLATELETS 179 140 - 440 K/ul [facility] EOSINOPHIL ABSOLUTE 0.0 0.0 - 0.7 K/ul [facility] EOSINOPHILS 0.6 0.0 - 7.0 % [facility] RBC 3.01(L) 4.60 - 6.20 Mil/ul [facility] LYMPHOCYTES 15.0(L) 24.0 - 44.0 % [facility] MCHC 33.5 30.0 - 35.0 g/dL [facility] LYMPHOCYTE ABSOLUTE 0.8(L) 1.2 - 4.0 K/ul [facility] Blood specimen (specimen) 01/25/2008 3:17 AM PAYROLL BENEFITS ADMINISTRATOR 01/25/2008 3:41 AM PAYROLL BENEFITS ADMINISTRATOR Dee Casillas MD HEMATOLOGY ORDERABLES Final Resu lt Performing Organization Address City/[facility] de Phone Number INTERFACE SYSTEM Refer to clinic/hospital department [facility] CLIA# [id number] [address] [place] [address] * (ABNORMAL) POC GLUCOSE (01/25/2008 12:12 AM PAYROLL BENEFITS ADMINISTRATOR) GLUCOSE POC 131(H) 60 - 100 mg/dL [facility] Venous blood specimen (specimen) 01/25/2008 12:12 AM PAYROLL BENEFITS ADMINISTRATOR 01/25/2008 2:51 AM PAYROLL BENEFITS ADMINISTRATOR Dee Casillas MD POINT OF CARE TESTING Final Resu lt Performing Organization Address [facility] Phone Number INTERFACE SYSTEM Refer to clinic/hospital department [facility] CLIA# [id number] [address] [place] [address] * (ABNORMAL) POC GLUCOSE (01/24/2008 7:55 PM PAYROLL BENEFITS ADMINISTRATOR) GLUCOSE POC 129(H) 60 - 100 mg/dL [facility] Venous blood specimen (specimen) 01/24/2008 7:55 PM PAYROLL BENEFITS ADMINISTRATOR 01/25/2008 2:51 AM PAYROLL BENEFITS ADMINISTRATOR Result [facility] us Dee Casillas MD POINT OF CARE TESTING Final Resu lt Performing Organization Address [facility] de Phone Number INTERFACE SYSTEM Refer to clinic/hospital department [facility] CLIA# [id number] [address] [place] [address] * XR FLUORO > 1 HOUR (01/24/2008 4:26 PM PAYROLL BENEFITS ADMINISTRATOR) Anatomical Region Laterality Modality Other 01/24/2008 4:26 PM PAYROLL BENEFITS ADMINISTRATOR Narrative 01/24/2008 4:26 PM PAYROLL BENEFITS ADMINISTRATOR Finalized by interface cleanup utility. No report expected. Procedure Note 03/25/2008 Finalized by interface cleanup utility. No report expected. us Dee Casillas MD DIAGNOSTIC IMAGING ORDERABLES Fi nal Result * (ABNORMAL) HEMOGLOBIN AND HEMATOCRIT (01/24/2008 3:06 PM PAYROLL BENEFITS ADMINISTRATOR) HEMOGLOBIN 9.9(L) 14.0 - 18.0 g/dL [facility] HEMATOCRIT 29.2(L) 41.0 - 53.0 % [facility] Blood specimen (specimen) 01/24/2008 3:06 PM PAYROLL BENEFITS ADMINISTRATOR 01/24/2008 3:06 PM PAYROLL BENEFITS ADMINISTRATOR Result [facility] us Dee Casillas MD HEMATOLOGY ORDERABLES Final Resu lt Performing Organization Address [facility] de Phone Number INTERFACE SYSTEM Refer to clinic/hospital department [facility] CLIA# [id number] [address] [place] [address] * TYPE AND CROSSMATCH (01/24/2008 9:50 AM PAYROLL BENEFITS ADMINISTRATOR) BLOOD BANK PRODUCT INTERFACE SYSTEM Blood specimen (specimen) 01/24/2008 9:50 AM PAYROLL BENEFITS ADMINISTRATOR 01/24/2008 9:53 AM PAYROLL BENEFITS ADMINISTRATOR Result [facility] Dee Casillas MD BLOOD BANK ORDERABLES Final Resu lt Performing Organization Address City/[facility] Co de Phone Number INTERFACE SYSTEM Refer to clinic/hospital department * ANTIBODY SCREEN (01/24/2008 9:50 AM PAYROLL BENEFITS ADMINISTRATOR) ANTIBODY SCREEN Negative [facility] Blood specimen (specimen) 01/24/2008 9:50 AM PAYROLL BENEFITS ADMINISTRATOR 01/24/2008 9:53 AM PAYROLL BENEFITS ADMINISTRATOR Dee Casillas MD BLOOD BANK ORDERABLES Final Resu lt Performing Organization Address [facility] de Phone Number INTERFACE SYSTEM Refer to clinic/hospital department [facility] CLIA# [id number] [address] [place] [address] * ABORH TYPING (01/24/2008 9:50 AM PAYROLL BENEFITS ADMINISTRATOR) ABO/RH TYPE A Positive [facility] Blood specimen (specimen) 01/24/2008 9:50 AM PAYROLL BENEFITS ADMINISTRATOR 01/24/2008 9:53 AM PAYROLL BENEFITS ADMINISTRATOR Dee Casillas MD BLOOD BANK ORDERABLES Final Resu lt Performing Organization Address [facility] de Phone Number INTERFACE SYSTEM Refer to clinic/hospital department [facility] CLIA# [id number] [address] [place] [address] documented in this encounter Visit Diagnoses Not on filedocumented in this encounter Care Teams Manager Mobile Relationship Specialty Start Date End Date Marsha Turner MD [address] [place] [address] PCP - General Internal Medicine 05/31/12 documented as of this encounter
--- OUTSIDE RECORDS SUMMARY | 2024-10-28 09:52 | XMS_ITS | Encounter Summary ---
Author Organization [facility] Address [address] [place] [address] Care Team Providers Care Elevator Tender Name Role Phone Marsha Turner MD Primary Care Provider +1- [phone] Encounter Details Date Type Department Care Team (Latest Contact Info) Description 10/05/2006 Outpatient Historical [facility] Operating Room [address] [place] [phone] Thomas Mack MD NO ADDRESS ON FILE Encounters for Unspecified Administrative Purpose (Primary Dx) Social History Tobacco Use Types Packs/Day Years Used Date Smoking Tobacco: Never Assessed Sex and Gender Information Value Date Recorded Sex Assigned at Not on file Legal 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
--- OUTSIDE RECORDS SUMMARY | 2024-10-28 09:52 | XMS_ITS | Encounter Summary ---
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
--- OUTSIDE RECORDS SUMMARY | 2024-10-28 09:52 | XMS_ITS | Encounter Summary ---
Author Organization [facility] Address [address] [place] [address] Care Team Providers Care Timber Repairer Name Role Phone Marsha Turner MD Primary Care Provider +1- [phone] Encounter Details Date Type Department Care Team (Latest Contact Info) Description 08/26/2018 Ancillary Orders [facility] Spine Neurosurgery [address] [place] [address] Aliyah Lange, PA [address] [place] [address] Status post lumbar spinal fusion Social History Tobacco Use Types Packs/Day Years Used Date Smoking Tobacco: Never Smokeless Tobacco: Never Alcohol Use Standard Drinks/Week Comments No 0 (1 standard drink = 0.6 oz pur e alcohol) Sex and Gender Information Value Date Recorded Sex Assigned at Not on file 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 IMPRESSION: 1. Interval posterior fusion. [id number] Narrative Procedure Note Chang Rai MD - [...] skin sean. IMPRESSION: 1. Interval posterior fusion. [id number] Aliyah MONTALVO DIAGNOSTIC IMAGING ORDERABLES Final Result documented in this encounter Visit Diagnoses Diagnosis Status post lumbar spinal fusion Arthrodesis status Status post lumbar spinal fusion Arthrodesis status documented in this encounter Care Teams Timber Repairer Relationship Specialty Start Date End Date Marsha Turner MD [address] [place] [address] PCP - General Internal Medicine 05/31/12 documented as of this encounter
--- OUTSIDE RECORDS SUMMARY | 2024-10-28 09:52 | XMS_ITS | Encounter Summary ---
Author Organization [facility] Address [address] [place] [address] Care Team Providers Care Data Integrity Consultant Name Role Phone Marsha Turner MD Primary Care Provider +1- [phone] Encounter Details Date Type Department Care Team (Late st Contact Info) Description 01/27/2007 Outpatient Historical [facility] Dermatology- 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
--- OUTSIDE RECORDS SUMMARY | 2024-10-28 09:52 | XMS_ITS | Encounter Summary ---
Author Organization [facility] Address [address] [place] [address] Care Team Providers Care Field Insurance Sales Manager Name Role Phone Marsha Turner MD Primary Care Provider +1- [phone] Reason for Referral * Outpatient Services (Routine) - Closed Specialty Diagnoses / Procedures Referred By Contac t Referred To Contact Radiology Diagnoses H/O: stroke Dizziness History of atrial fibrillation Procedures ECHOCARDIOGRAM W/ CONTRAST AGENT ECHO COMPLETE W BUBBLE STUDY Hayes Harris MD Phone: tel: fax: [facility] Echo [place] [address] [place] [address] Phone: tel: fax: Referral ID Status Reason Start Date Expiration Date V isits Requested Visits Authorized [id number] Closed F [facility] TO SCHEDULE (SGF) 07/31/2016 08/31/2017 1 1 Encounter Details Date Type Department Care Team (Latest Contact Info) Description 08/20/2016 Ancillary Orders [facility] Neurology- 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 Gender Identity Not on file Sexual [...] INTERFACE SYSTEM - 08/20/2016 10:06 AM CDT [facility] Echocardiography-[address] [place] [address] Transthoracic Echocardiography Patient: Yves Study ECHO Kojo Brown ID: COMPLETE W Gender: Stephanie : 1945 Age: 70 Room: Study 08/20/2016 Pt Outpatient Date: Status: Study 07:40 AM CSN #: [id number] Time: Ordering:Hayes Harris Interpreting:Giovanni Benitez MD Tile And Marble Setter: Gabby Simeon [facility] Indications and History: : H/O: stroke [Z86.73 [...] septum: Agitated saline contrast study showed no yugvi-oz-rzir shunt. - Aortic valve: Trileaflet; mildly thickened [...] Doppler. Agitated saline contrast study showed no dgvmb-jr-cgnf shunt. AORTIC VALVE: Trileaflet; mildly thickened leaflets. [...] (*) eaton values outside specified normal range. [facility] Echo Labs are accredited with the Intersocietal Accreditation Commission - Echocardiography. Prepared and Electronically Authenticated Giovanni Benitez MD Confirmed 08/20/2016 10:06 Procedure Note Giovanni Benitez MD - 08/20/2016 [facility] Echocardiography-[address] [facility] [address] [place] [address] Transthoracic Echocardiography Patient: Yves Study ECHO Kojo Brown ID: COMPLETE W Gender: Stephanie : 1945 Age: 70 Room: Study 08/20/2016 Pt Outpatient Date: Status: Study 07:40 AM [facility] #: [id number] Time: Ordering:Hayes Harris Interpreting:Giovanni Benitez MD Tile And Marble Setter: Gabby Simeon [facility] Indications and History: : H/O: stroke [Z86.73 [...] septum: Agitated saline contrast study showed no xfryv-xv-nwee shunt. - Aortic valve: Trileaflet; mildly thickened [...] Doppler. Agitated saline contrast study showed no dltzy-xu-kkct shunt. AORTIC VALVE: Trileaflet; mildly thickened leaflets. [...] (*) eaton values outside specified normal range. [facility] are accredited with the Intersocietal [...] system documented in this encounter Care Teams Field Insurance Sales Manager Relationship Specialty Start Date End Date Marsha Turner MD [address] [place] [address] PCP - General Internal Medicine 05/31/12 documented as of this encounter
--- OUTSIDE RECORDS SUMMARY | 2024-10-28 09:52 | XMS_ITS | Encounter Summary ---
Author Organization [facility] Address [address] [place] [address] Care Team Providers Care Macaroni Press Operator Name Role Phone Marsha Turner MD Primary Care Provider +1- [phone] Encounter Details Date Type Department Care Team (Late st Contact Info) Description 11/05/2006 Outpatient Historical [facility] Operating Room [address] [place] [phone] Thomas Mack MD NO ADDRESS ON FILE Social History Tobacco Use Types Packs/Day Years Used Date Smoking Tobacco: Never Assessed Sex and Gender Information Value Date Recorded Sex Assigned at Not on file Legal Sex Male 6:16 AM 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
--- OUTSIDE RECORDS SUMMARY | 2024-10-28 09:52 | XMS_ITS | Encounter Summary ---
Author Organization [facility] Address [address] [place] [address] Care Team Providers Care Website Developer Name Role Phone Marsha Turner MD Primary Care Provider +1- [phone] Encounter Details Date Type Department Care Team (Late st Contact Info) Description 01/02/2008 Outpatient Historical [facility] DEFAULT DEPARTMENT Dee Casillas MD [address] [phone] Social History Tobacco Use Types Packs/Day Years Used Date Smoking Tobacco: Never Assessed Sex and Gender Information Value Date Recorded Sex Assigned at Not on file 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
--- OUTSIDE RECORDS SUMMARY | 2024-10-28 09:52 | XMS_ITS | Encounter Summary ---
Author Organization [facility] Address [address] [place] [address] Care Team Providers Care Technical Support Intern Name Role Phone Marsha Turner MD Primary Care Provider +1- [phone] Encounter Details Date Type Department Care Team (Late st Contact Info) Description 06/14/2006 Outpatient Historical [facility] [place] [address] [place] [address] Thomas Mack MD NO ADDRESS ON FILE Malignant Neoplasm of Prostate (CMS/HCC) (Primary Dx) Social History Tobacco Use Types Packs/Day Years Used Date Smoking Tobacco: Never Assessed Sex and Gender Information Value Date Recorded Sex Assigned at Not on file Legal 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
--- OUTSIDE RECORDS SUMMARY | 2024-10-28 09:52 | XMS_ITS | Encounter Summary ---
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
--- OUTSIDE RECORDS SUMMARY | 2024-10-28 09:53 | XMS_ITS | Encounter Summary ---
Author Organization [facility] Address [address] [place] [address] Care Team Providers Care Allergy And Immunology Specialist Name Role Phone Marsha Turner MD Primary Care Provider +1- [phone] Encounter Details Date Type Department Care Team (Late st Contact Info) Description 08/26/2004 Outpatient Historical [facility] Urology- [address] Entrance B, 3rd [place] [address] Thomas Mack MD NO ADDRESS ON FILE CHRONIC PROSTATITIS (Primary Dx); FAMILY HX-PROSTATIC MALIGNANCY Social History Tobacco Use Types Packs/Day Years Used Date Smoking Tobacco: Never Assessed Sex and Gender Information Value Date Recorded Sex Assigned at Not on file Legal 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
--- OUTSIDE RECORDS SUMMARY | 2024-10-28 09:53 | XMS_ITS | Encounter Summary ---
Author Organization [facility] Address [address] [place] [address] Care Team Providers Care Storage Facility Housekeeper Name Role Phone Marsha Turner MD Primary Care Provider +1- [phone] Encounter Details Date Type Department Care Team (Late st Contact Info) Description 09/12/2004 Outpatient Historical [facility] [address] [place] [address] 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
--- OUTSIDE RECORDS SUMMARY | 2024-10-28 09:53 | XMS_ITS | Encounter Summary ---
Author Organization [facility] Address [address] [place] [address] Care Team Providers Care Car Rental Manager Name Role Phone Marsha Turner MD Primary Care Provider +1- [phone] Encounter Details Date Type Department Care Team (Latest Contact Info) Description 10/05/2000 Outpatient Historical [facility] Medicine [address] [place] [address] Lakhwinder Mahmood MD Nonspecific abnormal finding in stool contents (Primary Dx) Social History Tobacco Use Types Packs/Day Years Used Date Smoking Tobacco: Never Assessed Sex and Gender Information Value Date Recorded Sex Assigned at Not on file 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
--- OUTSIDE RECORDS SUMMARY | 2024-10-28 09:53 | XMS_ITS | Encounter Summary ---
Author Organization [facility] Address [address] [place] [address] Care Team Providers Care Inspection Supervisor Name Role Phone Marsha Turner MD Primary Care Provider +1- [phone] Encounter Details Date Type Department Care Team (Late st Contact Info) Description 05/24/2004 Inpatient Historical [facility] Marj Hardy MD NO ADDRESS ON FILE ASTHMA UNSPECIFIED (Primary Dx) Social History Tobacco Use Types Packs/Day Years Used Date Smoking Tobacco: Never Assessed Sex and Gender Information Value Date Recorded Sex Assigned at Not on file Legal Sex Male 6:16 AM SUPERVISOR PAINT Gender Identity Not on file Sexual Orientation Not on file documented as of this encounter Plan of Treatment Not on file documented as of this encounter Procedures Procedure Name Priority Date/Time Associated Diagnosis Comments PSA MEDICARE SCREEN Routine 05/28/2004 8 :26 AM SUPERVISOR PAINT URINALYSIS MICROSCOPY ONLY Routine 05/27/2004 8:51 PM SUPERVISOR PAINT URINALYSIS W/REFLEX MICROSCOPIC Routine 05/27/2004 8:51 PM SUPERVISOR PAINT CBC WITH DIFFERENTIAL Routine 05/26/2004 5:07 AM SUPERVISOR PAINT TSH Routine 05/26/2004 5:07 AM SUPERVISOR PAINT LIPID PANEL Routine 05/26/2004 5:07 AM SUPERVISOR PAINT BASIC METABOLIC PANEL Routine 05/26/2004 5:07 AM SUPERVISOR PAINT URINALYSIS MICROSCOPY ONLY Routine 05/25/2004 2:02 PM SUPERVISOR PAINT URINALYSIS W/REFLEX MICROSCOPIC Routine 05/25/2004 2:02 PM SUPERVISOR PAINT PTT Routine 05/25/2004 5:41 AM SUPERVISOR PAINT CBC WITHOUT DIFFERENTIAL Routine 05/25/2004 5:41 AM SUPERVISOR PAINT CARDIAC ENZYMES Routine 05/25/2004 3:42 AM SUPERVISOR PAINT CARDIAC ENZYMES Routine 05/24/2004 9:06 PM SUPERVISOR PAINT URINALYSIS MICROSCOPY ONLY Routine 05/24/2004 5:22 PM SUPERVISOR PAINT URINALYSIS W/REFLEX MICROSCOPIC Routine 05/24/2004 5:22 PM SUPERVISOR PAINT CARDIAC ENZYMES Routine 05/24/2004 3:18 PM SUPERVISOR PAINT PTT Routine 05/24/2004 3:18 PM SUPERVISOR PAINT DRUG SCREEN, URINE Routine 05/24/2004 10 :52 AM SUPERVISOR PAINT D-DIMER Routine 05/24/2004 9:30 AM SUPERVISOR PAINT documented in this encounter Results * PSA MEDICARE SCREEN (05/28/2004 8:26 AM SUPERVISOR PAINT) PSA 2.8 0.0 - 4.0 ng/mL INTERFACE SYSTEM Comment:Results for patients receiving treatment must be evaluated individually by the physician. 05/28/2004 8:26 AM SUPERVISOR PAINT us Marj Hardy MD CHEMISTRY ORDERABLES COM Final Result INTERFACE SYSTEM Refer to clinic/hospital department * (ABNORMAL) URINALYSIS (05/27/2004 8:51 PM SUPERVISOR PAINT) COLOR UA Yellow Straw INTERFACE SYSTEM CLARITY [...] Yes(A) No INTERFACE SYSTEM 05/27/2004 8:51 PM SUPERVISOR PAINT Thomas Mack MD URINE ORDERABLES Final Result Performing Organization Address City/[facility] Co de Phone Number INTERFACE SYSTEM Refer to clinic/hospital department * URINALYSIS MICROSCOPY ONLY (05/27/2004 8:51 PM SUPERVISOR PAINT) WBC URINE None Seen 0 - 2 INTERFACE SYSTEM RBC UA None Seen 0 - 2 INTERFACE SYSTEM HYALINE CAST 0-2 0 - 2 INTERFA CE SYSTEM 05/27/2004 8:51 PM SUPERVISOR PAINT Thomas Mack MD URINE ORDERABLES Final Result Performing Organization Address [facility] Phone Number INTERFACE SYSTEM Refer to clinic/hospital department * (ABNORMAL) CBC WITH DIFFERENTIAL (05/26/2004 5:07 AM SUPERVISOR PAINT) WBC 3.7(L) 4.8 - 10.8 K/ul INTERFACE [...] 0.2 K/ul INTERFACE SYSTEM 05/26/2004 5:07 AM SUPERVISOR PAINT Marj Hardy MD HEMATOLOGY ORDERABLES Final Re sult Performing Organization Address [facility] de Phone Number INTERFACE SYSTEM Refer to clinic/hospital department * (ABNORMAL) TSH (05/26/2004 5:07 AM SUPERVISOR PAINT) TSH <0.03(L) 0.49 - 4.67 uIU/ml INTERFACE SYSTEM 05/26/2004 5:07 AM SUPERVISOR PAINT Marj Hardy MD CHEMISTRY ORDERABLES Final Res ult Performing Organization Address [facility] Co de Phone Number INTERFACE SYSTEM Refer to clinic/hospital department * (ABNORMAL) BASIC METABOLIC PANEL (05/26/2004 5:07 AM SUPERVISOR PAINT) GLUCOSE 167(H) 70 - 110 mg/dL INTERFACE [...] 10.5 mg/dL INTERFACE SYSTEM 05/26/2004 5:07 AM SUPERVISOR PAINT Result [facility] Marj Hardy MD CHEMISTRY ORDERABLES Final Res ult Performing Organization Address [facility] Phone Number INTERFACE SYSTEM Refer to clinic/hospital department * (ABNORMAL) LIPID PANEL (05/26/2004 5:07 AM SUPERVISOR PAINT) CHOLESTEROL 120 75 - 200 mg/dL INTERFACE SYSTEM TRIGLYCERIDE 66 0 - 200 mg/dL INTERFACE SYSTEM CALCULATED TOTAL CHOLESTEROL TO HDL RATIO 2.93(L) 3.43 - 4.97 INTERFACE SYSTEM HDL 41 40 - 60 mg/dL INTERFACE SYSTEM LDL CALCULATED 66 0 - 130 mg/dL INTERFACE SYSTEM 05/26/2004 5:07 AM SUPERVISOR PAINT Result [facility] Marj Hardy MD CHEMISTRY ORDERABLES Final Res ult Performing Organization Address [facility] Phone Number INTERFACE SYSTEM Refer to clinic/hospital department * (ABNORMAL) URINALYSIS (05/25/2004 2:02 PM SUPERVISOR PAINT) COLOR UA Yellow Straw INTERFACE SYSTEM CLARITY [...] Yes(A) No INTERFACE SYSTEM 05/25/2004 2:02 PM SUPERVISOR PAINT Result [facility] Marj Hardy MD URINE ORDERABLES Final Result Performing Organization Address [facility] Phone Number INTERFACE SYSTEM Refer to clinic/hospital department * (ABNORMAL) URINALYSIS MICROSCOPY ONLY (05/25/2004 2:02 PM SUPERVISOR PAINT) WBC URINE 0-2 0 - 2 INTERFACE SYSTEM RBC UA 3-5(A) 0 - 2 INTERFACE SYSTEM HYALINE CAST None Seen 0 - 2 INTERFA CE SYSTEM BACTERIA UA None Seen None Seen INTERFAC E SYSTEM 05/25/2004 2:02 PM SUPERVISOR PAINT Marj Hardy MD URINE ORDERABLES Final Result Performing Organization Address [facility] de Phone Number INTERFACE SYSTEM Refer to clinic/hospital department * (ABNORMAL) PTT (05/25/2004 5:41 AM SUPERVISOR PAINT) PTT 47.8(H) 24.3 - 37.5 Secs INTERFACE SYSTEM Comment:Therapeutic Range: 05/25/2004 5:41 AM SUPERVISOR PAINT Marj Hardy MD HEMATOLOGY ORDERABLES Final Re sult Performing Organization Address City/[facility] de Phone Number INTERFACE SYSTEM Refer to clinic/hospital department * (ABNORMAL) CBC WITHOUT DIFFERENTIAL (05/25/2004 5:41 AM SUPERVISOR PAINT) WBC 4.5(L) 4.8 - 10.8 K/ul INTERFACE [...] 0.2 K/ul INTERFACE SYSTEM 05/25/2004 5:41 AM SUPERVISOR PAINT Result Jennifer Hardy MD HEMATOLOGY ORDERABLES Final Re sult Performing Organization Address City/[facility] Co de Phone Number INTERFACE SYSTEM Refer to clinic/hospital department * CARDIAC ENZYMES (05/25/2004 3:42 AM SUPERVISOR PAINT) CKMB 0.7 0.0 - 5.5 ng/mL INTERFACE SYSTEM TROPONIN I 0.0 0.0 - 1.5 ng/mL INTERFACE SYSTEM Comment: Expected Range: Normal 0.0 - 1.5 ng/ml Borderline 1.6 - 4.4 ng/ml Positive > = 4.5 ng/ml 05/25/2004 3:42 AM SUPERVISOR PAINT Result Jennifer Hardy MD CHEMISTRY ORDERABLES Final Res ult Performing Organization Address City/[facility] Co de Phone Number INTERFACE SYSTEM Refer to clinic/hospital department * CARDIAC ENZYMES (05/24/2004 9:06 PM SUPERVISOR PAINT) CKMB <0.7 0.0 - 5.5 ng/mL INTERFACE SYSTEM TROPONIN I 0.0 0.0 - 1.5 ng/mL INTERFACE SYSTEM Comment: Expected Range: Normal 0.0 - 1.5 ng/ml Borderline 1.6 - 4.4 ng/ml Positive > = 4.5 ng/ml 05/24/2004 9:06 PM SUPERVISOR PAINT Result Jennifer Hardy MD CHEMISTRY ORDERABLES Final Res ult Performing Organization Address [facility] Phone Number INTERFACE SYSTEM Refer to clinic/hospital department * (ABNORMAL) URINALYSIS (05/24/2004 5:22 PM SUPERVISOR PAINT) COLOR UA Yellow Straw INTERFACE SYSTEM CLARITY [...] Yes(A) No INTERFACE SYSTEM 05/24/2004 5:22 PM SUPERVISOR PAINT Marj Hardy MD URINE ORDERABLES Final Result Performing Organization Address [facility] Phone Number INTERFACE SYSTEM Refer to clinic/hospital department * (ABNORMAL) URINALYSIS MICROSCOPY ONLY (05/24/2004 5:22 PM SUPERVISOR PAINT) WBC URINE 0-2 0 - 2 INTERFACE SYSTEM RBC UA >80(A) 0 - 2 INTERFACE SYSTEM HYALINE CAST None Seen 0 - 2 INTERFA CE SYSTEM BACTERIA UA None Seen None Seen INTERFAC E SYSTEM 05/24/2004 5:22 PM SUPERVISOR PAINT Marj Hardy MD URINE ORDERABLES Final Result Performing Organization Address [facility] Phone Number INTERFACE SYSTEM Refer to clinic/hospital department * CARDIAC ENZYMES (05/24/2004 3:18 PM SUPERVISOR PAINT) CKMB 0.7 0.0 - 5.5 ng/mL INTERFACE SYSTEM TROPONIN I 0.0 0.0 - 1.5 ng/mL INTERFACE SYSTEM Comment: Expected Range: Normal 0.0 - 1.5 ng/ml Borderline 1.6 - 4.4 ng/ml Positive > = 4.5 ng/ml 05/24/2004 3:18 PM SUPERVISOR PAINT Result [facility] Marj Hardy MD CHEMISTRY ORDERABLES Final Res ult Performing Organization Address [facility] Phone Number INTERFACE SYSTEM Refer to clinic/hospital department * (ABNORMAL) PTT (05/24/2004 3:18 PM SUPERVISOR PAINT) PTT 75.3(H) 24.3 - 37.5 Secs INTERFACE SYSTEM Comment:Therapeutic Range: 05/24/2004 3:18 PM SUPERVISOR PAINT Result [facility] Marj Hardy MD HEMATOLOGY ORDERABLES Final Re sult Performing Organization Address [facility] Phone Number INTERFACE SYSTEM Refer to clinic/hospital department * (ABNORMAL) DRUG SCREEN, URINE (05/24/2004 10:52 AM SUPERVISOR PAINT) OPIATE QUAL, URINE Drug Positive(A) Drug Negative [...] Negative INTERFACE SYSTEM 05/24/2004 10:5 2 AM SUPERVISOR PAINT Result Jennifer Hardy MD URINE ORDERABLES Final Result Performing Organization Address [facility] Phone Number INTERFACE SYSTEM Refer to clinic/hospital department * (ABNORMAL) D-DIMER (05/24/2004 9:30 AM SUPERVISOR PAINT) D-DIMER QUANT 2.0(H) 0.0 - 0.5 mcg/mL INTERFACE SYSTEM 05/24/2004 9:30 AM SUPERVISOR PAINT Result Jennifer Hardy MD HEMATOLOGY ORDERABLES Final Re sult Performing Organization Address [facility] de Phone Number INTERFACE SYSTEM Refer to clinic/hospital department documented in this encounter Visit Diagnoses Diagnosis Unspecified asthma(493.90)- Primary Unspecified asthma documented in this encounter Care Teams Inspection Supervisor Relationship Specialty Start Date End Date Marsha Turner MD [address] [place] [address] PCP - General Internal Medicine 05/31/12 documented as of this encounter
--- OUTSIDE RECORDS SUMMARY | 2024-10-28 09:53 | XMS_ITS | Encounter Summary ---
Author Organization [facility] Address [address] [place] [address] Care Team Providers Care Wool Batting Worker Name Role Phone Marsha Turner MD Primary Care Provider +1- [phone] Encounter Details Date Type Department Care Team (Late st Contact Info) Description 10/08/2004 Outpatient Historical [facility] [address] [place] [phone] Thomas Mack MD NO ADDRESS ON FILE MALIGN NEOPL PROSTATE (CMS/HCC) (Primary Dx) Social History Tobacco Use Types Packs/Day Years Used Date Smoking Tobacco: Never Assessed Sex and Gender Information Value Date Recorded Sex Assigned at Not on file 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
--- OUTSIDE RECORDS SUMMARY | 2024-10-28 09:53 | XMS_ITS | Encounter Summary ---
Author Organization [facility] Address [address] [place] [address] Care Team Providers Care Clinical Documentation Specialist Name Role Phone Marsha Turner MD Primary Care Provider +1- [phone] Encounter Details Date Type Department Care Team (Late st Contact Info) Description 10/16/2004 Outpatient Historical [facility] Urology- [address]tr[address] B, 3rd [place] [phone] Thomas Mack MD NO ADDRESS ON FILE Malig emmett prostate (Primary Dx) Social History Tobacco Use Types Packs/Day Years Used Date Smoking Tobacco: Never Assessed Sex and Gender Information Value Date Recorded Sex Assigned at Not on file 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
--- OUTSIDE RECORDS SUMMARY | 2024-10-28 09:53 | XMS_ITS | Encounter Summary ---
Author Organization [facility] Address [address] [place] [address] Care Team Providers Care Roundhouse Supervisor Name Role Phone Marsha Turner MD Primary Care Provider +1- [phone] Encounter Details Date Type Department Care Team (Latest Contact Info) Description 09/28/2000 Outpatient Historical [facility] Medicine [address] [place] [address] Lakhwinder Mahmood MD Nonspecific abnormal results of liver function study (Primary Dx) Social History Tobacco Use Types Packs/Day Years Used Date Smoking Tobacco: Never Assessed Sex and Gender Information Value Date Recorded Sex Assigned at Not on file Legal 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
--- OUTSIDE RECORDS SUMMARY | 2024-10-28 09:53 | XMS_ITS | Encounter Summary ---
Author Organization [facility] Address [address] [place] [address] Care Team Providers Care Chiropractic Physician Name Role Phone Marsha Turner MD Primary Care Provider +1- [phone] Encounter Details Date Type Department Care Team (Latest Contact Info) Description 03/11/1998 Outpatient Historical [facility] [address] [place] [id number] Giovanni Corrigan MD [address] [place] [phone] Coronary atherosclerosis of [place] coronary artery (Primary Dx) Social History Tobacco Use Types Packs/Day Years Used Date Smoking Tobacco: Never Assessed Sex and Gender Information Value Date Recorded Sex Assigned at Not on file Legal Sex Male 6:16 AM FERRY HAND Gender Identity Not on file Sexual Orientation Not on file documented as of this encounter Plan of Treatment Not on file documented as of this encounter Visit Diagnoses Diagnosis Coronary atherosclerosis of [place] coronary artery- Primary documented in this encounter Care Teams Chiropractic Physician Relationship Specialty Start Date End Date Marsha Turner MD [address] [place] [address] PCP - General Internal Medicine 05/31/12 documented as of this encounter
--- OUTSIDE RECORDS SUMMARY | 2024-10-28 09:53 | XMS_ITS | Encounter Summary ---
Author Organization [facility] Address [address] [place] [address] Care Team Providers Care Soft Mud Molder Name Role Phone Marsha Turner MD Primary Care Provider +1- [phone] Encounter Details Date Type Department Care Team (Latest Contact Info) Description 05/05/2005 Outpatient [facility] Gastroenterology[address] [place] [address] Abilio Bagley MD [address] [place] [address] CHEST PAIN NOS (Primary Dx); STOMACH FUNCTION DIS NEC; DYSPHAGIA Social History Tobacco Use Types Packs/Day Years Used Date Smoking Tobacco: Never Assessed Sex and Gender Information Value Date Recorded Sex Assigned at Not on file Legal Sex Male 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
--- OUTSIDE RECORDS SUMMARY | 2024-10-28 09:53 | XMS_ITS | Encounter Summary ---
Author Organization [facility] Address [address] [place] [address] Care Team Providers Care Molder Setter Name Role Phone Marsha Turner MD Primary Care Provider +1- [phone] Encounter Details Date Type Department Care Team (Late st Contact Info) Description 12/09/2004 Outpatient Historical [facility] Urology- [address] Entrance B, 3rd [place] [phone] Thomas Mack MD NO ADDRESS ON FILE Malig emmett prostate (Primary Dx); DYSURIA; Slow urinary stream Social History Tobacco Use Types Packs/Day Years Used Date Smoking Tobacco: Never Assessed Sex and Gender Information Value Date Recorded Sex Assigned at Not on file 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
--- OUTSIDE RECORDS SUMMARY | 2024-10-28 09:53 | XMS_ITS | Encounter Summary ---
Author Organization [facility] Address [address] [place] [address] Care Team Providers Care Tile Layer Helper Name Role Phone Marsha Turner MD Primary Care Provider +1- [phone] Encounter Details Date Type Department Care Team (Late st Contact Info) Description 09/12/2004 Outpatient Historical [facility] Urology- [address] Entrance B, 3rd [place] [phone] Thomas Mack MD NO ADDRESS ON FILE Elevated PSA (Primary Dx) Social History Tobacco Use Types Packs/Day Years Used Date Smoking Tobacco: Never Assessed Sex and Gender Information Value Date Recorded Sex Assigned at Not on file Legal Sex Male 6:16 AM DIRECTOR EXPORT Gender Identity Not on file Sexual Orientation Not on file documented as of this encounter Plan of Treatment Not on file documented as of this encounter Visit Diagnoses Diagnosis Elevated PSA- Primary Elevated prostate specific antigen (PSA) documented in this encounter Care Teams Tile Layer Helper Relationship Specialty Start Date End Date Marsha Turner MD [address] [place] [address] PCP - General Internal Medicine 05/31/12 documented as of this encounter
--- OUTSIDE RECORDS SUMMARY | 2024-10-28 09:53 | XMS_ITS | Encounter Summary ---
Author Organization [facility] Address [address] [place] [address] Care Team Providers Care Supervisor Post Wave Name Role Phone Marsha Turner MD Primary Care Provider +1- [phone] Encounter Details Date Type Department Care Team (Latest Contact Info) Description 12/31/2003 Outpatient Historical [facility] Cardiac Gis Coordinator [address] [place] [address] Hosea Wilson MD [address] [facility] [address] [place] [address] CORON ATHEROSCL LITTLE SHELL TRIBE CORON VESSEL (Primary Dx) Social History Tobacco Use Types Packs/Day Years Used Date Smoking Tobacco: Never Assessed Sex and Gender Information Value Date Recorded Sex Assigned at Not on file Legal Sex Male 6: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
--- OUTSIDE RECORDS SUMMARY | 2024-10-28 09:53 | XMS_ITS | Encounter Summary ---
Author Organization [facility] Address [address] [place] [address] Care Team Providers Care Assembly Inspector Name Role Phone Marsha Turner MD Primary Care Provider +1- [phone] Encounter Details Date Type Department Care Team (Late st Contact Info) Description 03/05/2008 Outpatient [facility] [address] [facility] [address] [place] [address] Aaron Ayala MD [address] [place] [address] Malig Thierno Skin Face NEC Social History Tobacco Use Types Packs/Day Years Used Date Smoking Tobacco: Never Assessed Sex and Gender Information Value Date Recorded Sex Assigned at Not on file Legal Sex Male 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 Recheck 4 months. ENTIONS RESERVATIONIST documented in this encounter Plan of Treatment Not on file documented as of this encounter Procedures Procedure Name Priority Date/Time Associated Diagnosis Comments PATHOLOGY Routine 03/05/2008 1:19 PM CONVENTIONS RESERVATIONIST documented in this encounter Results * PATHOLOGY (03/05/2008 1:19 PM CONVENTIONS RESERVATIONIST) PATHOLOGY/CYT OLOGY REPORT [facility] Dept [facility] [address] Patient: LOGAN MARINELLI Accn No: [id number] Collected: 03/05/2008 1:19:00 PM DERMATOPATHOLOGY FINAL REPORT [...] in cassette A1. 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 There are some keratinocytes with atypical nuclear features, and there are scattered mitotic figures. 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
--- OUTSIDE RECORDS SUMMARY | 2024-10-28 09:53 | XMS_ITS | Encounter Summary ---
Author Organization [facility] Address [address] [place] [address] Care Team Providers Care Lead Cargo Mover Name Role Phone Marsha Turner MD Primary Care Provider +1- [phone] Encounter Details Date Type Department Care Team (Late st Contact Info) Description 02/26/2005 Outpatient Historical [facility] Urology- [address] Entrance B, 3rd [place] [phone] Thomas Mack MD NO ADDRESS ON FILE Malig emmett prostate (Primary Dx) Social History Tobacco Use Types Packs/Day Years Used Date Smoking Tobacco: Never Assessed Sex and Gender Information Value Date Recorded Sex Assigned at Not on file 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
--- OUTSIDE RECORDS SUMMARY | 2024-10-28 09:53 | XMS_ITS | Encounter Summary ---
Author Organization [facility] Address [address] [place] [address] Care Team Providers Care Incident Response Engineer Name Role Phone Marsha Turner MD Primary Care Provider +1- [phone] Encounter Details Date Type Department Care Team (Late st Contact Info) Description 09/26/2004 Outpatient Historical [facility] Urology- [address] Entr[address] B, 3rd [place] [phone] Thomas Mcak MD NO ADDRESS ON FILE Malig emmett prostate (Primary Dx) Social History Tobacco Use Types Packs/Day Years Used Date Smoking Tobacco: Never Assessed Sex and Gender Information Value Date Recorded Sex Assigned at Not on file Legal 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
--- NOTE | 2024-10-28 10:43 | ECG_ITS ---
[facility]: 2024[facility]28 Pat Name: Kojo Marinelli Department: Room: Gender: Male Inhalation Therapist: : 1945 Requested By: Mason Rai Order Number: [id number] Zarate MD: James Pineda M.D. Measurements Intervals Rowley Rate: 69 P: 23 FL: 252 QRS: -62 QRSD: 156 T: 50 QT: 443 QTc: 478 Interpretive Statements SINUS RHYTHM WITH FIRST DEGREE AV BLOCK INTRAVENTRICULAR CONDUCTION DELAY [130+ ms QRS DURATION] Compared to ECG 10/12/2024 01:51:44 No significant changes Electronically Signed On 10-28-2024 21:48:28 CDT by James Pineda M.D. [email or web address]
--- NOTE | 2024-10-28 11:04 | XRR_ITS ---
PROCEDURE INFORMATION: Exam: XR Chest Exam date and time: 10/28/2024 12:20 PM Age: 78 years old Clinical indication: Shortness of breath; Prior surgery; Surgery date: 6+ months; Surgery type: Neck, port placement, back fusion, aaa repair; Additional info: Weakness; SOB TECHNIQUE: Imaging protocol: Radiologic exam of the chest. Views: 1 view. COMPARISON: CR (CHEST, ) 10/22/2024 8:33 AM FINDINGS: Tubes, catheters and devices: There is a right IJ port with tip at the junction of the superior vena cava and right atrium. Lungs: Unchanged linear scarring left lung base.. No consolidation. Pleural spaces: Unremarkable. No pleural effusion. No pneumothorax. Heart/Mediastinum: The heart is enlarged. Bones/joints: No acute abnormality. XR/XR chest 1V [id number] IMPRESSION: No active pulmonary disease.
--- NOTE | 2024-10-28 11:06 | CTR_ITS ---
PROCEDURE INFORMATION: Exam: CT Head Without Contrast Exam date and time: 10/28/2024 12:13 PM Age: 78 years old Clinical indication: Dizziness TECHNIQUE: Imaging protocol: Computed tomography of the head without contrast. Radiation optimization: All CT scans at this facility use at least one of these dose optimization techniques: automated exposure control; mA and/or kV adjustment per patient size (includes targeted exams where dose is matched to clinical indication); or iterative reconstruction. COMPARISON: CT head wo con* [id number] 10/12/2024 12:27 AM RADIATION DOSE METRICS: Total DLP (mGy-cm): 1132.28 FINDINGS: Brain: No midline shift or acute intracranial hemorrhage. Periventricular hypodensities are nonspecific and likely representing mild small vessel ischemic changes. Cerebral ventricles: No ventriculomegaly. Paranasal sinuses: Visualized sinuses are unremarkable. No fluid levels. Mastoid air cells: Fluid in the left mastoid air cells. Bones: Unremarkable. No acute fracture. Soft tissues: Right scalp 1.1 x 1.9 cm soft tissue density lesion, unchanged. Other findings: There is cortical and central atrophy. CT/CT head wo con* [id number] IMPRESSION: 1. No acute intracranial finding. 2. Fluid in the left mastoid air cells. 3. Right scalp 1.1 x 1.9 cm soft tissue density lesion, unchanged. 4. Cerebral atrophy. 5. Likely mild small-vessel ischemic changes.
--- NOTE | 2024-10-28 11:07 | CTR_ITS ---
PROCEDURE INFORMATION: Exam: CT Abdomen And Pelvis With Contrast Exam date and time: 10/28/2024 12:17 PM Age: 78 years old Clinical indication: Abdominal pain; Prior surgery; Surgery date: 6+ months; Surgery type: Neck, back, aaa repair TECHNIQUE: Imaging protocol: Computed tomography of the abdomen and pelvis with contrast. Radiation optimization: All CT scans at this facility use at least one of these dose optimization techniques: automated exposure control; mA and/or kV adjustment per patient size (includes targeted exams where dose is matched to clinical indication); or iterative reconstruction. 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 Heart: The heart is enlarged. Liver: Unremarkable.No mass. Gallbladder and biliary ducts: There has been a cholecystectomy. There is no common bile duct dilation. Pancreas: The pancreas is normal. Spleen: The spleen is normal. Adrenal glands: The adrenal glands are normal. Kidneys and ureters: There is a 6.0 cm upper pole simple cyst in the left kidney and a 1.5 cm cyst lower pole right kidney. No follow-up is necessary. There is no evidence of hydronephrosis. There is no evidence of renal calcifications. Stomach and bowel: There is marked distension of the ascending and transverse colon. The greatest transverse measurement of the transverse colon is 9 cm unchanged compared to the prior exam. The cecum and ascending colon is very distended with stool and air with a greatest transverse measurement of 9 cm. There is less significant distension of the descending colon with gradual transition to normal caliber/collapsed sigmoid colon and rectum. No abrupt transition zone or obstruction. Previously, there was a focal area of narrowing of the descending colon concerning for stricture which is unremarkable on this exam. No dilated loops of small bowel. There is no pneumatosis. The fundus of the stomach is mildly distended with food/secretions but otherwise unremarkable. There is wall thickening of the cecum and ascending colon concerning for stercoral colitis. Appendix: There has been an appendectomy. Intraperitoneal space: There is unchanged small volume of free fluid in the lower abdomen and pelvis. No intraperitoneal abscess. Vasculature: The aorta is normal. Lymph nodes: Unremarkable.No enlarged lymph nodes. Urinary bladder: The bladder is obscured by arthroplasty artifact. Reproductive: Unremarkable as visualized. Bones/joints: There are extensive postoperative changes throughout the visualized spine. There are bilateral total hip arthroplasties. No acute bony abnormality. Soft tissues: There is a nonobstructing right inguinal hernia. Mild anasarca type changes are present. CT/CT abdomen pelvis w con* [id number] IMPRESSION: 1. Very large amount of stool in the cecum and ascending colon.There is wall thickening of the cecum and ascending colon concerning for stercoral colitis. Unchanged small volume of fluid in the pelvis. No abscess. No pneumatosis or free air. 2. Unchanged distension of the transverse colon. Gradual caliber change to collapsed sigmoid colon and rectum. No bowel obstruction. This appearance suggests possible institutional bowel/dysmotility given the unchanged appearance on prior exam. Possible narrowing or stricture on the prior study is unremarkable on this exam. COMMENTS: Consistent with the [employer]'s Incidental Findings Committee white paper (J Am Juli Radiol 2018): Any incidental renal lesion less than 1 cm or classified as too small to characterize, or any incidental cystic renal lesion characterized as simple-appearing, is likely benign. No follow-up imaging is recommended for these lesions per consensus recommendations based on imaging criteria.
--- NOTE | 2024-10-28 11:08 | W.ED.DIZZY ---
HPI - Dizziness General: Chief Complaint: Dizziness Stated Complaint: Feels like he is gonna pass out Time Seen by Provider: 10/28/24 10:49 History of Present Illness: HPI Narrative: Chief complaint is generalized weakness. 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 He states that he has had recurrent episodes where he gets very weak and has to come to the emergency room and get IV fluid and then he feels better. He states he has been feeling this way for the last 3 to 4 days. He states he was in the emergency department about a week ago for the same thing. He denies any room spinning dizziness but states is just lightheaded feeling like he feels like he is going to pass out. Triage note noted and patient has a difficult time describing his dizziness but states is more just generalized weakness and feeling like he is in a pass out. Related Data Home Medications ?Medication ?Instructions ?Recorded ?Confirmed nitroglycerin 0.4 mg sublingual 0.4 mg sublingual Q5M PRN Chest 12/22/22 10/22/24 tablet (Nitrostat) Pain liothyronine 5 mcg tablet 5 mcg PO BID 04/01/23 10/22/24 oxybutynin chloride 5 mg 5 mg PO DAILY 10/22/23 10/22/24 tablet,extended release 24 hr bumetanide 2 mg tablet 2 mg PO BID PRN Edema 11/30/23 10/22/24 carvedilol 12.5 mg tablet 12.5 mg PO DAILY 05/05/24 10/22/24 acetaminophen 500 mg capsule 1,000 mg PO TID PRN Pain 08/17/24 10/22/24 hydralazine 50 mg tablet 50 mg PO TID 08/17/24 10/22/24 potassium chloride 10 mEq 20 meq PO BID PRN while on 08/17/24 10/22/24 tablet,extended release Bumetanide levothyroxine 150 mcg tablet 150 mcg PO DAILY 10/11/24 10/22/24 (Synthroid) lidocaine-prilocaine 2.5 %-2.5 % 1 applic topical PRN PRN port 10/11/24 10/22/24 topical cream access lorazepam 0.5 mg tablet 0.25 - 0.5 mg PO TID PRN nausea 10/11/24 10/22/24 and vomiting pregabalin 25 mg capsule 25 mg PO BID 10/11/24 10/22/24 sennosides 8.6 mg-docusate sodium 1 tab PO DAILY PRN Constipation 10/22/24 10/22/24 50 mg tablet (Stool Softener-Laxative) Previous Rx's ?Medication ?Instructions ?Recorded MARK BRACE #1 ea 08/01/20 Modification to AFO Brace to the #1 ea 02/02/22 left apixaban 5 mg tablet (Eliquis) 5 mg PO BID@0900,2100 #60 tabs 11/12/22 Held on 08/16/24. Instructions: Resume on 08/17/24. amiodarone 200 mg tablet (Pacerone) 200 mg PO DAILY #30 tabs 02/19/23 atorvastatin 40 mg tablet 40 mg PO BEDTIME #90 tabs 08/10/23 isosorbide mononitrate 30 mg 60 mg (2 x 30 mg) PO BEDTIME #180 01/28/24 tablet,extended release 24 hr tabs omeprazole 40 mg capsule,delayed 40 mg PO QAM #90 caps 06/22/24 release prednisone 10 mg tablet 10 mg PO DAILY #90 tabs 06/22/24 hydromorphone 2 mg tablet 1 mg (1/2 x 2 mg) PO Q8H PRN pain 08/18/24 (Dilaudid) 30 days #25 tabs ondansetron HCl 4 mg tablet 8 mg (2 x 4 mg) PO Q8H PRN nausea 09/28/24 and vomiting #90 tabs prochlorperazine maleate 10 mg 10 mg PO Q6H PRN nausea and 09/28/24 tablet (Compazine) vomiting #30 tabs olanzapine 2.5 mg tablet (Zyprexa) 2.5 mg PO DAILY #60 tabs 10/19/24 polyethylene glycol 3350 17 gram 17 g PO DAILY PRN constipation #14 10/22/24 oral powder packet (Miralax) ea lactulose 10 gram/15 mL oral 20 g (30 mL) PO DAILY PRN 10/28/24 solution constipation #473 mL meclizine 25 mg tablet 25 mg PO TID PRN dizziness #20 tabs 10/28/24 Allergies Allergy/AdvReac Type Severity Reaction Status Date / Time adhesive tape Allergy tears skin Verified 10/19/24 10:30 off metoclopramide (From Reglan) Allergy Unknown Verified 10/19/24 10:30 morphine Allergy ALGY-Hives Verified 10/19/24 10:30 tamsulosin (From Flomax) Allergy ADR/ALGY-Hy Verified 10/19/24 10:30 potension zolpidem (From Ambien) Allergy Unknown Verified 10/19/24 10:30 hydrocodone AdvReac Mild Hypotension Verified 10/19/24 10:30 oxycodone AdvReac Mild Hypotension Verified 10/19/24 10:30 PFSH ED PFSH: Medical History (Updated 10/28/24 @ 17:12 by Mason Rai MD) Hypothyroid ADAMS (dyspnea on exertion) Atrial fibrillation Ascending aortic aneurysm Patient had a CT of the chest on 07/14/2023. The ascending aorta was found to be 4.0 cm in diameter. Essentially unchanged CHF (congestive heart failure), NYHA class III EF 10/2022 43% on stress test, 50% on echo HTN (hypertension) Other iron deficiency anemias Anemia High risk medication use prednisone and leflunomide 12/2022 Peripheral arterial disease Chronic anticoagulation eliquis Unstable angina CAD (coronary artery disease) Seroma, postoperative Spinal stenosis, thoracic Degenerative disc disease, thoracic History of prostate cancer Urgency incontinence Renal cyst Acquired calcaneovarus deformity of both feet Lumbar stenosis with neurogenic claudication Orthostatic hypotension Venous insufficiency of both lower extremities Acute blood loss as cause of postoperative anemia Failed back surgical syndrome DDD (degenerative disc disease), lumbar Chronic back pain History of TIA (transient ischemic attack) Radiation cystitis Carotid artery disease Hx of cataract Closed fracture of right patella COVID-2020 Metatarsus adductus Osteoarthritis, generalized Seronegative rheumatoid arthritis Positive CORBY (antinuclear antibody) EDUARDO was negative in 2013 Gastroparesis GERD (gastroesophageal reflux disease) Cervical postlaminectomy syndrome FUAD (obstructive sleep apnea) Hyperlipidemia COPD (chronic obstructive pulmonary disease) H/O malignant neoplasm of skin Surgical History Status post revision of total replacement of right knee History of total bilateral knee replacement (TKR) Hx of excision of epidermal inclusion cyst Hx of excision of mass 04/12/23 Dr Fitzgerald- Elliptical excision of skin and subcutaneous back mass S/P laminectomy with spinal fusion S/P spinal fusion 02/2021 - T9-S1 Dr Delarosa History of penile implant Status post spinal arthrodesis S/P lumbar fusion History of cardiac cath ~2012 nonobstructive 10/2022 stress test EF 43 %, small areas prior infarcts RCA and LAD territories History of hip surgery RIGHT 04/11/19 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 History of total right hip arthroplasty History of total left hip arthroplasty History of abdominal aortic aneurysm (AAA) repair History of tonsillectomy and adenoidectomy Hx of appendectomy History of back surgery multiple procedures (>10) H/O neck surgery x 2 Hx of cholecystectomy H/O colonoscopy 2011 H/O esophagogastroduodenoscopy 2011 Family History Mother , Age 81 Bleeding disorder Clotting disorder CAD (coronary artery disease) 60s Cancer Stroke Father , Age 94 CAD (coronary artery disease) 80 Dementia Daughter Chronic kidney disease (CKD) Brother CAD (coronary artery disease) [place] Cancer Denies family history of Diabetes Suicide Anesthesia complication Lung disease Social History Smoking and tobacco/nicotine status: never used tobacco/nicotine Alcohol intake: never Substance/Drug Use: never Household members: spouse Marital status: Current occupational status: retired Special danny needs: No Agree to transfusion: Yes Physical Exam Narrative: EXAM NARRATIVE: Patient is alert and oriented. No acute distress. He is able to get up from his wheelchair and ambulate to the side of the bed and sit down. No ataxia. He has full range ocular motion and pupils are equal and reactive to light and normal conjunctiva. No evident visual field deficit. No facial droop. Brisk intact [id number]. No truncal ataxia. He has no drift in his arms. He has some mild symmetric drift in both legs which she states is chronic. He has intact sensation in both arms. He has some mild decrease sensation in distal legs symmetrically which she states is chronic. Speech is clear. Clear sensorium. Alert and oriented x 4. Lung sounds are clear. Heart regular rhythm. Abdomen soft with mild right upper quadrant tenderness but mainly tenderness across the lower abdomen with some mild guarding. Neck is supple. He has a swollen area on the right side of his face which is fluctuant and drains pus. Skin is warm and dry. He moves his back well getting up from the chair and going to the bed. No calf tenderness. Mild edema both legs symmetric. Course Vital Signs: Vital signs: Vital Signs Temperature 98.7 F 10/28/24 09:55 Pulse Rate 71 10/28/24 15:00 Respiratory Rate 16 10/28/24 15:00 Blood Pressure 176/95 10/28/24 15:00 Pulse Oximetry 95 10/28/24 15:00 Oxygen Delivery Me thod Room Air 10/28/24 12:59 MDM - Dizziness Medical Decision Making Patient presents to the emergency department complaining of generalized weakness and feeling lightheaded. Asked him about triage note and asked him if he had room spinning dizziness. He states he just feels like he is going to pass out and just feels weak in general. He states this is the same exact feeling he is had multiple times and when he gets IV fluid it helps. He states he gets infusions sometimes and sometimes he has to come to emergency room. He does have a history congestive heart failure however so I advised we need to be cautious with IV fluid administration. I ordered 500 cc normal saline IV fluid bolus. He denies any chest pain or chest discomfort or palpitations to suggest acute [place]. I did order EKG to evaluate for cardiac dysrhythmia. He denies any new shortness of breath. He denies having any black or bloody stools and states he is compliant with his Eliquis. He denies having a headache. Denies any fall or trauma. He has had abdominal pain he states for about 2 to 3 weeks. He states he had a CT scan here and he states at that time he was more constipated but now he is having soft stools. No vomiting. No new abdominal pain but it does wake him up and seemed worse last night and is in the lower abdomen. He states it is there all the time and no clear precipitant. He denies any new leg pain or swelling. He denies any trouble with his balance that is new. No focal numbness weakness or tingling that is new. He has some chronic back pain but does not feel that this is changed at all from his baseline. He denies any new numbness in his groin or loss of bowel or bladder control or new numbness or weakness in his legs other than generalized weakness. Patient did have some mild symmetric weakness in his legs with straight leg raise but he states that is baseline for him. Other than this his NIH stroke scale would be 0. Patient did have a fluctuant area on the right side of his face over his restorationism. This is draining pus. With light pressure and drained moderate amount of pus and it is soft and nontender and no erythema to suggest cellulitis. Patient is neck is supple he moves his neck freely. Differentials are broad including anemia, dehydration, vertigo with his broad differential including stroke, metastatic disease to the brain, cardiac dysrhythmia, infectious process, metabolic, extremely broad differential. Patient states that they reduced his hydralazine last from 50 mg down to 25 mg but he does not know why. Patient is on diuretics. He may be dehydrated. CBC CMP proBNP chest x-ray EKG ordered. Will also get CT of his head to evaluate for intracranial hemorrhage with his blood thinners with low pretest probability. I do not find findings to suggest acute cerebellar stroke on exam. I ordered urinalysis lipase and a CT abdomen pelvis with his abdominal pain. Patient EKG to my interpretation shows sinus rhythm with first-degree block and interventricular conduction delay and nonspecific ST segment changes with a rate of 69 bpm. I discussed treatment plan with the patient and the . provides additional history. Patient agrees with plan after informed discussion. Patient feeling improved after IV fluid bolus. Patient blood pressure is trended up but he has not taken his blood pressure meds yet today. He states he can take them when he gets home. He denies any headache. He denies any earache. He did have some fluid in the mastoids on CT but denies earache or fever. Patient states that if he turns his head real quickly he will sometimes still get a slight spinning feeling. Patient however seems to describe 2 different things he is experiencing when is the lightheadedness where he feels like he is in a pass out and the other is the spinning feeling. Patient initially denied any significant spinning feeling to me but he states he did have 1 here when he moved his head rapidly but it was very brief. Will try a short course of meclizine. Will prescribe lactulose for his constipation. CT showed extensive constipation and possible stercoral colitis. Advised importance of hydration, diet restrictions, activity restrictions and fall precautions and limits of ED evaluation and outpatient follow-up. White count was 9.33. Hemoglobin was 12.4. Electrolytes did not show significant acute abnormality. proBNP was not significant elevated. Patient's daughter arrived who is a nurse practitioner. She states the patient almost passed out earlier today. She provides better history. She states the patient's abdomen is also gotten progressively more distended. She states he is too weak to make it to the bathroom without risk of fall or passing out. With degree of constipation on CT and stercoral colitis reasonable to admit for continued evaluation and treatment. I consulted with Dr. Sarkar who is excepted the patient for admission and with Dr. Dorsey who will consult and recommends starting with soapsuds enema and lactulose. Lab Data 10/28/24 11:00 10/28/24 11:00 Radiology Impressions Chest X-Ray 10/28/24 11:04 IMPRESSION: No active pulmonary disease. Head CT 10/28/24 11:06 IMPRESSION: 1. No acute intracranial finding. 2. Fluid in the left mastoid air cells. 3. Right scalp 1.1 x 1.9 cm soft tissue density lesion, unchanged. 4. Cerebral atrophy. 5. Likely mild small-vessel ischemic changes. Abdomen/Pelvis CT 10/28/24 11:07 IMPRESSION: 1. Very large amount of stool in the cecum and ascending colon.There is wall thickening of the cecum and ascending colon concerning for stercoral colitis. Unchanged small volume of fluid in the pelvis. No abscess. No pneumatosis or free air. 2. Unchanged distension of the transverse colon. Gradual caliber change to collapsed sigmoid colon and rectum. No bowel obstruction. This appearance suggests possible institutional bowel/dysmotility given the unchanged appearance on prior exam. Possible narrowing or stricture on the prior study is unremarkable on this exam. COMMENTS: Consistent with the [employer]'s Incidental Findings Committee white paper (J Am Juli Radiol 2018): Any incidental renal lesion less than 1 cm or classified as too small to characterize, or any incidental cystic renal lesion characterized as simple-appearing, is likely benign. No follow-up imaging is recommended for these lesions per consensus recommendations based on imaging criteria. Laboratory Results WBC 9.33 10^3/uL (3.29-11.43) 10/28/24 11:00 RBC 4.04 10^6/uL (3.85-5.65) 10/28/24 11:00 Hgb 12.40 g/dL (11.27-16.99) 10/28/24 11:00 Hct 39.6 % (37-53) 10/28/24 11:00 MCV 98.0 fl (82-101) 10/28/24 11:00 MCH 30.7 pg (27-33) 10/28/24 11:00 MCHC 31.3 g/dL (30-55) 10/28/24 11:00 RDW 15.8 % (12.1-15.1) H 10/28/24 11:00 Plt Count 191 10^3/cmm (157-399) 10/28/24 11:00 MPV 9.3 fL (7.4-10.4) 10/28/24 11:00 Neut % (Auto) 81.0 % 10/28/24 11:00 Lymph % (Auto) 7.5 % 10/28/24 11:00 [place] % (Auto) 10.4 % 10/28/24 11:00 Eos % (Auto) 0.3 % 10/28/24 11:00 Baso % (Auto) 0.3 % 10/28/24 11:00 Neut # (Auto) 7.55 10^3/uL (1.8-7.7) 10/28/24 11:00 Lymph # (Auto) 0.7 10^3/uL (0.8-4.8) L 10/28/24 11:00 [place] # (Auto) 1.0 10^3/uL (0.2-0.9) H 10/28/24 11:00 Eos # (Auto) 0.0 10^3/uL (0.0-0.8) 10/28/24 11:00 Baso # (Auto) 0.0 10^3/uL (0.0-0.1) 10/28/24 11:00 Nucleated RBC % (auto) 0 % 10/28/24 11:00 Nucleated RBCs # 0.0 /100WBC 10/28/24 11:00 Sodium 141 mmol/L (136-145) 10/28/24 11:00 Potassium 4.1 mmol/L (3.5-5.1) 10/28/24 11:00 Chloride 106 mmol/L (98-107) 10/28/24 11:00 Carbon Dioxide 24 mmol/L (22-29) 10/28/24 11:00 Anion Gap 15.1 (5-19) 10/28/24 11:00 BUN 11 mg/dL (8-23) 10/28/24 11:00 Creatinine 0.8 mg/dL (0.7-1.2) 10/28/24 11:00 GFR Calculation Not Reportable 10/28/24 11:00 Glucose 117 mg/dL (65-115) H 10/28/24 11:00 Calculated Osmolality 292 mOsm/kg (285-295) 10/28/24 11:00 Lactic Acid 1.4 mmol/L (0.5-2.2) 10/28/24 11:00 Calcium 8.8 mg/dL (8.5-10.5) 10/28/24 11:00 Total Bilirubin 0.6 mg/dL (0.15-1.2) 10/28/24 11:00 AST 11 U/L (0-40) 10/28/24 11:00 ALT 14 U/L (0-41) 10/28/24 11:00 Alkaline Phosphatase 78 U/L (40-130) 10/28/24 11:00 NT-Pro-B Natriuret Pep 335 pg/mL (0-450) 10/28/24 11:00 Total Protein 6.6 g/dL (6.6-8.7) 10/28/24 11:00 Albumin 3.9 g/dL (3.5-5.2) 10/28/24 11:00 Globulin 2.7 g/dL (1.3-4.6) 10/28/24 11:00 Lipase 12 U/L (13-60) L 10/28/24 11:00 TSH 9.55 uIU/mL (0.27-4.20) H 10/28/24 11:00 Urine Color Yellow (Yellow) 10/28/24 12:13 Urine Appearance Clear (CLEAR) 10/28/24 12:13 Urine pH 5.5 (5-7) 10/28/24 12:13 Ur Specific [place] 1.025 (1.005-1.030) 10/28/24 12:13 Urine Protein Trace (Negative) A 10/28/24 12:13 Urine Glucose (UA) Negative (Normal) 10/28/24 12:13 Urine Ketones Trace (Negative) 10/28/24 12:13 Urine Blood Negative (Negative) 10/28/24 12:13 Urine Nitrate Negative (Negative) 10/28/24 12:13 Urine Bilirubin Negative (Negative) 10/28/24 12:13 Urine Urobilinogen 1.0 mg/dL (Negative) 10/28/24 12:13 Ur Leukocyte Esterase Negative (Negative) 10/28/24 12:13 Urine RBC 0-4 /hpf (0-2) H 10/28/24 12:13 Urine WBC 0-4 /hpf (0-5) H 10/28/24 12:13 Ur Squamous Epith Cells 0-4 /hpf (0-5) H 10/28/24 12:13 Amorphous Sediment Not Reportable 10/28/24 12:13 Urine Bacteria Trace /hpf (NONE) 10/28/24 12:13 Hyaline Casts 0-4 /lpf H 10/28/24 12:13 Urine Mucus 1+ /hpf 10/28/24 12:13 All radiology interpretation(s) finalized by discharge Discharge Plan Discharge Patient Disposition: Placed in Observation Clinical Impression: Dizziness, Generalized weakness, Constipation, Colitis Coding Level of Care Code ED Senior Project Architect for Lauren Zimmerman
[2024-10-28 11:09] LABS: Hematocrit 39.6 % (37-53); Hemoglobin 12.40 g/dL (11.27-16.99); Mean Corpuscular HGB Conc 31.3 g/dL (30-55); Mean Corpuscular Hemoglobin 30.7 pg (27-33); Mean Corpuscular Volume 98.0 fl (82-101); Nucleated Red Blood Cells % 0 %; Platelet Count 191 10^3/cmm (157-399); Red Blood Count 4.04 10^6/uL (3.85-5.65); White Blood Count 9.33 10^3/uL (3.29-11.43)
[2024-10-28 11:32] LABS: Lactic Sepsis W/Reflex 1.4 mmol/L (0.5-2.2)
[2024-10-28 11:44] LABS: Alanine Aminotransferase 14 U/L (0-41); Albumin Level 3.9 g/dL (3.5-5.2); Alkaline Phosphatase 78 U/L (40-130); Anion Gap 15.1 (5-19); Aspartate Amino Transferase 11 U/L (0-40); Blood Urea Nitrogen 11 mg/dL (8-23); Calcium 8.8 mg/dL (8.5-10.5); Carbon Dioxide 24 mmol/L (22-29); Chloride 106 mmol/L (98-107); Creatinine Clr Calc Pharmacy 90.9842; Globulin 2.7 g/dL (1.3-4.6); Glucose 117 mg/dL (65-115); Lipase 12 U/L (13-60); NT Pro B Type Natriuretic Pept 335 pg/mL (0-450); Osmolality Calculated 292 mOsm/kg (285-295); Potassium 4.1 mmol/L (3.5-5.1); Sodium 141 mmol/L (136-145); Thyroid Stimulating Hormone 9.55 uIU/mL (0.27-4.20); Total Protein 6.6 g/dL (6.6-8.7)
[2024-10-28 12:43] LABS: Glucose Urine UA Negative (Normal); Nitrate Urine Negative (Negative); Specific Gravity, Urine 1.025 (1.005-1.030)
[2024-10-28 12:54] LABS: Add Urine Microscopic? YES
--- NOTE | 2024-10-28 18:08 | PM.HP ---
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 Currently patient is alert oriented x 3, following all commands, he tells me he lives in [place] with his , he can ambulate with a cane, he had a fall about 3 weeks ago, no significant loss of consciousness, he can bathe himself, he can help take care of himself, he drives sometimes He tells me that for the last 3 days he has not had a bowel movement, he has felt nauseous, abdominal distention, is passing gas, recent antibiotic use, he is on Dilaudid for pain, is not on a bowel regimen at home For his generalized weakness, he does not he gets generalized weak every time he is on immunotherapy, no focal weakness Does report dizziness, no room spinning around him, but the dizziness is associated with nausea, he is on Eliquis and is taking Eliquis therapy, does have a history of atrial fibrillation does have a history of TIA in 2017, he has been dealing with the dizziness for the last few weeks, nothing acute no other focal weakness, no facial droop, slurring his words no visual deficits Review of Systems Const: Reports: fatigue; Denies: fever(s) or chills Card: Denies: chest pain Resp: Denies: dyspnea GI: Reports: abdominal pain and nausea Medications/Allergies Home Medications ?Medication ?Instructions ?Recorded ?Confirmed ?Last Taken ?Type MARK BRACE #1 ea 08/01/20 10/22/24 Unknown Rx Modification to AFO Brace to the #1 ea 02/02/22 10/22/24 Unknown Rx left apixaban 5 mg tablet (Eliquis) 5 mg PO BID@0900,2100 #60 tabs 11/12/22 10/22/24 10/21/24 Rx Held on 08/16/24. Instructions: Resume on 08/17/24. nitroglycerin 0.4 mg sublingual 0.4 mg sublingual Q5M PRN Chest 12/22/22 10/22/24 02/17/23 History tablet (Nitrostat) Pain amiodarone 200 mg tablet (Pacerone) 200 mg PO DAILY #30 tabs 02/19/23 10/22/24 10/21/24 Rx liothyronine 5 mcg tablet 5 mcg PO BID 04/01/23 10/22/24 10/21/24 History atorvastatin 40 mg tablet 40 mg PO BEDTIME #90 tabs 08/10/23 10/22/24 10/21/24 Rx oxybutynin chloride 5 mg 5 mg PO DAILY 10/22/23 10/22/24 10/21/24 History tablet,extended release 24 hr bumetanide 2 mg tablet 2 mg PO BID PRN Edema 11/30/23 10/22/24 08/13/24 History isosorbide mononitrate 30 mg 60 mg (2 x 30 mg) PO BEDTIME #180 01/28/24 10/22/24 10/21/24 Rx tablet,extended release 24 hr tabs carvedilol 12.5 mg tablet 12.5 mg PO DAILY 05/05/24 10/22/24 10/21/24 History omeprazole 40 mg capsule,delayed 40 mg PO QAM #90 caps 06/22/24 10/22/24 10/21/24 Rx release prednisone 10 mg tablet 10 mg PO DAILY #90 tabs 06/22/24 10/22/24 10/21/24 Rx acetaminophen 500 mg capsule 1,000 mg PO TID PRN Pain 08/17/24 10/22/24 Unknown History hydralazine 50 mg tablet 50 mg PO TID 08/17/24 10/22/24 10/21/24 History potassium chloride 10 mEq 20 meq PO BID PRN while on 08/17/24 10/22/24 Unknown History tablet,extended release Bumetanide hydromorphone 2 mg tablet 1 mg (1/2 x 2 mg) PO Q8H PRN pain 08/18/24 10/22/24 Unknown Rx (Dilaudid) 30 days #25 tabs ondansetron HCl 4 mg tablet 8 mg (2 x 4 mg) PO Q8H PRN nausea 09/28/24 10/22/24 Unknown Rx and vomiting #90 tabs prochlorperazine maleate 10 mg 10 mg PO Q6H PRN nausea and 09/28/24 10/22/24 Unknown Rx tablet (Compazine) vomiting #30 tabs levothyroxine 150 mcg tablet 150 mcg PO DAILY 10/11/24 10/22/24 10/21/24 History (Synthroid) lidocaine-prilocaine 2.5 %-2.5 % 1 applic topical PRN PRN port 10/11/24 10/22/24 Unknown History topical cream access lorazepam 0.5 mg tablet 0.25 - 0.5 mg PO TID PRN nausea 10/11/24 10/22/24 Unknown History and vomiting pregabalin 25 mg capsule 25 mg PO BID 10/11/24 10/22/24 10/21/24 History olanzapine 2.5 mg tablet (Zyprexa) 2.5 mg PO DAILY #60 tabs 10/19/24 10/22/24 10/21/24 Rx polyethylene glycol 3350 17 gram 17 g PO DAILY PRN constipation #14 10/22/24 Unknown Rx oral powder packet (Miralax) ea sennosides 8.6 mg-docusate sodium 1 tab PO DAILY PRN Constipation 10/22/24 10/22/24 Unknown History 50 mg tablet (Stool Softener-Laxative) lactulose 10 gram/15 mL oral 20 g (30 mL) PO DAILY PRN 10/28/24 Unknown Rx solution constipation #473 mL meclizine 25 mg tablet 25 mg PO TID PRN dizziness #20 tabs 10/28/24 Unknown Rx Allergies Allergy/AdvReac Type Severity Reaction Status Date / Time adhesive tape Allergy tears skin Verified 10/19/24 10:30 off metoclopramide (From Reglan) Allergy Unknown Verified 10/19/24 10:30 morphine Allergy ALGY-Hives Verified 10/19/24 10:30 tamsulosin (From Flomax) Allergy ADR/ALGY-Hy Verified 10/19/24 10:30 potension zolpidem (From Ambien) Allergy Unknown Verified 10/19/24 10:30 hydrocodone AdvReac Mild Hypotension Verified 10/19/24 10:30 oxycodone AdvReac Mild Hypotension Verified 10/19/24 10:30 PFSH Acute PFSH: Medical History Hypothyroid ADAMS (dyspnea on exertion) Atrial fibrillation Ascending aortic aneurysm Patient had a CT of the chest on 07/14/2023. The ascending aorta was found to be 4.0 cm in diameter. Essentially unchanged CHF (congestive heart failure), NYHA class III EF 10/2022 43% on stress test, 50% on echo HTN (hypertension) Other iron deficiency anemias Anemia High risk medication use prednisone and leflunomide 12/2022 Peripheral arterial disease Chronic anticoagulation eliquis Unstable angina CAD (coronary artery disease) Seroma, postoperative Spinal stenosis, thoracic Degenerative disc disease, thoracic History of prostate cancer Urgency incontinence Renal cyst Acquired calcaneovarus deformity of both feet Lumbar stenosis with neurogenic claudication Orthostatic hypotension Venous insufficiency of both lower extremities Acute blood loss as cause of postoperative anemia Failed back surgical syndrome DDD (degenerative disc disease), lumbar Chronic back pain History of TIA (transient ischemic attack) Radiation cystitis Carotid artery disease Hx of cataract Closed fracture of right patella COVID-2020 Metatarsus adductus Osteoarthritis, generalized Seronegative rheumatoid arthritis Positive CORBY (antinuclear antibody) EDUARDO was negative in 2013 Gastroparesis GERD (gastroesophageal reflux disease) Cervical postlaminectomy syndrome FUAD (obstructive sleep apnea) Hyperlipidemia COPD (chronic obstructive pulmonary disease) H/O malignant neoplasm of skin Surgical History Status post revision of total replacement of right knee History of total bilateral knee replacement (TKR) Hx of excision of epidermal inclusion cyst Hx of excision of mass 04/12/23 Dr Fitzgerald- Elliptical excision of skin and subcutaneous back mass S/P laminectomy with spinal fusion S/P spinal fusion 02/2021 - T9-S1 Dr Delarosa History of penile implant Status post spinal arthrodesis S/P lumbar fusion History of cardiac cath ~2012 nonobstructive 10/2022 stress test EF 43 %, small areas prior infarcts RCA and LAD territories History of hip surgery RIGHT 04/11/19 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 History of total right hip arthroplasty History of total left hip arthroplasty History of abdominal aortic aneurysm (AAA) repair History of tonsillectomy and adenoidectomy Hx of appendectomy History of back surgery multiple procedures (>10) H/O neck surgery x 2 Hx of cholecystectomy H/O colonoscopy 2011 H/O esophagogastroduodenoscopy 2011 Family History Mother , Age 81 Bleeding disorder Clotting disorder CAD (coronary artery disease) 60s Cancer Stroke Father , Age 94 CAD (coronary artery disease) 80 Dementia Daughter Chronic kidney disease (CKD) Brother CAD (coronary artery disease) [place] Cancer Denies family history of Diabetes Suicide Anesthesia complication Lung disease Social History Smoking and tobacco/nicotine status: never used tobacco/nicotine Alcohol intake: never Substance/Drug Use: never Household members: spouse Marital status: Current occupational status: retired Special danny needs: No Agree to transfusion: Yes Vitals/I&O/Wt Last Vital Signs Temp 98.7 F 10/28/24 09:55 Pulse 73 10/28/24 17:22 Resp 16 10/28/24 17:22 BP 139/91 10/28/24 17:22 Pulse Ox 93 10/28/24 17:22 O2 Del Method Room Air 10/28/24 12:59 10/28/24 10/28/24 10/28/24 06:59 14:59 22:59 Intake Total 500 / 500 500 / 1000 Balance 500 / 500 500 / 1000 Weight last 48 hrs Weight 108.862 kg Physical Exam Const: COMMON NORMALS: no acute distress and patient oriented x3 HENMT: COMMON NORMALS: normocephalic HEAD & SCALP: normocephalic Eye: COMMON NORMALS: Equal, round and reactive pupils present and EOMs intact bilaterally Resp: COMMON NORMALS: normal respiratory effort, No retractions, No use of accessory muscles and clear to auscultation bilaterally AUSCULTATION: clear to auscultation bilaterally Cardio: COMMON NORMALS: regular rate, regular rhythm, S1 normal heart sound present and S2 normal heart sound present RATE: regular rate RHYTHM: regular rhythm HEART SOUNDS: S1 normal heart sound present and S2 normal heart sound present GI: OTHER: Abdomen soft, distended, good bowel sounds, no guarding, no rebound, rigidity Extremity: COMMON NORMALS: no calf tenderness and no pedal edema Neuro: COMMON NORMALS: patient oriented x3, CN's II-XII intact bilaterally and moves all extremities Psych: COMMON NORMALS: mental status grossly normal Skin: NARRATIVE SKIN EXAM: Right scalp, area nodular, measuring 1 x 1 cm surrounding by erythema Data 10/28/24 11:00 10/28/24 11:00 A&P Assessment and plan 1. Opioid-induced constipation: 2. Colon distention: 3. Dizziness: 4. Dehydration: Plan: Opioid-induced constipation -With colon distention -With stercoral colitis Stomach and bowel: There is marked distension of the ascending and transverse colon. The greatest transverse measurement of the transverse colon is 9 cm unchanged compared to the prior exam. The cecum and ascending colon is very distended with stool and air with a greatest transverse measurement of 9 cm. There is less significant of the descending colon with gradual transition to normal caliber/collapsed sigmoid colon and rectum. No abrupt transition zone or obstruction. Previously, there was a focal area of narrowing of the descending colon concerning for stricture which is unremarkable on this exam. No dilated loops of small bowel. There is no pneumatosis. The fundus of the stomach is mildly distended with food/secretions but otherwise unremarkable. There is wall thickening of the cecum and ascending colon concerning for stercoral colitis. Plan - N.p.o. - IV fluids - Zofran for nausea - Has received lactulose in the emergency room - 1 dose of Relistor - Serial abdominal exams - General Surgery consulted - Full code - Lovenox for DVT prophylaxis Dizziness - CT head no acute findings - IV fluids - telemetry monitoring - Troponin series - Cardiac echo - Carotid artery ultrasound - Aspirin, statin History of atrial fibrillation - Hold Eliquis - Switch to therapeutic Lovenox given colon distention as above Hypertension - Continue home blood pressure medications Hypothyroidism - TSH improving to 9.5 History of squamous cell carcinoma - Has erythema, swelling, tenderness around right temporal - With purulent drainage - Will place on doxycycline and Augmentin Generalized weakness, fatigue - History of squamous cell carcinoma immunotherapy PDMP PDMP Reviewed: Last Reviewed 10/28/24 18:02 by Jac Polanco MD Attestations Medical Necessity Statement*: Patient requires hospitalization, inpatient, greater than 2 midnights for opioid-induced constipation, colonic distention stercoral colitis, dizziness, Diagnoses Opioid-induced constipation K59.03; T40.2X5A Colon distention K63.89 Dizziness R42 Dehydration E86.0
[2024-10-28] MEDS: lactulose oral liq 20 gm/30 mL UDC PO (18:55)
[2024-10-28 19:16] LABS: Procalcitonin 0.03 ng/mL (0-0.5)
--- NOTE | 2024-10-28 19:31 | PM.CONSULT ---
Providers/Reason For Consult Consulting Physician/Specialty*: Dr. Pito Alba, DO Reason for Consult*: Abdominal pain and distention Attending Physician: Jac Polanco MD Primary Care Provider: Marsha Turner MD History of Present Illness History of Present Illness Kojo Marinelli is a 78 year old male with 2 weeks of worsening abdominal distention abdominal pain with constipation. He has had bouts of constipation previously but states that he has had some increasing abdominal pain over the past week despite multiple attempts to improve his constipation. His daughter is a nurse practitioner and encouraged him to come to the emergency room for further evaluation. He states he is having increased abdominal distention with pain and persistently difficult time having bowel movements. He denies any blood in his stool. He states that has been nauseous but denies any emesis. He denies any recent travel or sick contacts. He denies any recent weight loss or adenopathy. He has no urinary complaints. No other complaints at this time. Review of Systems Const: Reports: fatigue; Denies: fever(s) or chills Card: Denies: chest pain Resp: Denies: dyspnea GI: Reports: abdominal pain and nausea Medications/Allergies Home Medications ?Medication ?Instructions ?Recorded ?Confirmed ?Last Taken ?Type MARK BRACE #1 ea 08/01/20 10/22/24 Unknown Rx Modification to AFO Brace to the #1 ea 02/02/22 10/22/24 Unknown Rx left apixaban 5 mg tablet (Eliquis) 5 mg PO BID@0900,2100 #60 tabs 11/12/22 10/22/24 10/21/24 Rx Held on 08/16/24. Instructions: Resume on 08/17/24. nitroglycerin 0.4 mg sublingual 0.4 mg sublingual Q5M PRN Chest 12/22/22 10/22/24 02/17/23 History tablet (Nitrostat) Pain amiodarone 200 mg tablet (Pacerone) 200 mg PO DAILY #30 tabs 02/19/23 10/22/24 10/21/24 Rx liothyronine 5 mcg tablet 5 mcg PO BID 04/01/23 10/22/24 10/21/24 History atorvastatin 40 mg tablet 40 mg PO BEDTIME #90 tabs 08/10/23 10/22/24 10/21/24 Rx oxybutynin chloride 5 mg 5 mg PO DAILY 10/22/23 10/22/24 10/21/24 History tablet,extended release 24 hr bumetanide 2 mg tablet 2 mg PO BID PRN Edema 11/30/23 10/22/24 08/13/24 History isosorbide mononitrate 30 mg 60 mg (2 x 30 mg) PO BEDTIME #180 01/28/24 10/22/24 10/21/24 Rx tablet,extended release 24 hr tabs carvedilol 12.5 mg tablet 12.5 mg PO DAILY 05/05/24 10/22/24 10/21/24 History omeprazole 40 mg capsule,delayed 40 mg PO QAM #90 caps 06/22/24 10/22/24 10/21/24 Rx release prednisone 10 mg tablet 10 mg PO DAILY #90 tabs 06/22/24 10/22/24 10/21/24 Rx acetaminophen 500 mg capsule 1,000 mg PO TID PRN Pain 08/17/24 10/22/24 Unknown History hydralazine 50 mg tablet 50 mg PO TID 08/17/24 10/22/24 10/21/24 History potassium chloride 10 mEq 20 meq PO BID PRN while on 08/17/24 10/22/24 Unknown History tablet,extended release Bumetanide hydromorphone 2 mg tablet 1 mg (1/2 x 2 mg) PO Q8H PRN pain 08/18/24 10/22/24 Unknown Rx (Dilaudid) 30 days #25 tabs ondansetron HCl 4 mg tablet 8 mg (2 x 4 mg) PO Q8H PRN nausea 09/28/24 10/22/24 Unknown Rx and vomiting #90 tabs prochlorperazine maleate 10 mg 10 mg PO Q6H PRN nausea and 09/28/24 10/22/24 Unknown Rx tablet (Compazine) vomiting #30 tabs levothyroxine 150 mcg tablet 150 mcg PO DAILY 10/11/24 10/22/24 10/21/24 History (Synthroid) lidocaine-prilocaine 2.5 %-2.5 % 1 applic topical PRN PRN port 10/11/24 10/22/24 Unknown History topical cream access lorazepam 0.5 mg tablet 0.25 - 0.5 mg PO TID PRN nausea 10/11/24 10/22/24 Unknown History and vomiting pregabalin 25 mg capsule 25 mg PO BID 10/11/24 10/22/24 10/21/24 History olanzapine 2.5 mg tablet (Zyprexa) 2.5 mg PO DAILY #60 tabs 10/19/24 10/22/24 10/21/24 Rx polyethylene glycol 3350 17 gram 17 g PO DAILY PRN constipation #14 10/22/24 Unknown Rx oral powder packet (Miralax) ea sennosides 8.6 mg-docusate sodium 1 tab PO DAILY PRN Constipation 10/22/24 10/22/24 Unknown History 50 mg tablet (Stool Softener-Laxative) lactulose 10 gram/15 mL oral 20 g (30 mL) PO DAILY PRN 10/28/24 Unknown Rx solution constipation #473 mL meclizine 25 mg tablet 25 mg PO TID PRN dizziness #20 tabs 10/28/24 Unknown Rx Allergies Allergy/AdvReac Type Severity Reaction Status Date / Time adhesive tape Allergy tears skin Verified 10/19/24 10:30 off metoclopramide (From Reglan) Allergy Unknown Verified 10/19/24 10:30 morphine Allergy ALGY-Hives Verified 10/19/24 10:30 tamsulosin (From Flomax) Allergy ADR/ALGY-Hy Verified 10/19/24 10:30 potension zolpidem (From Ambien) Allergy Unknown Verified 10/19/24 10:30 hydrocodone AdvReac Mild Hypotension Verified 10/19/24 10:30 oxycodone AdvReac Mild Hypotension Verified 10/19/24 10:30 PFSH Acute PFSH: Medical History (Updated 10/28/24 @ 18:14 by Jac Polanco MD) Hypothyroid ADAMS (dyspnea on exertion) Atrial fibrillation Ascending aortic aneurysm Patient had a CT of the chest on 07/14/2023. The ascending aorta was found to be 4.0 cm in diameter. Essentially unchanged CHF (congestive heart failure), NYHA class III EF 10/2022 43% on stress test, 50% on echo HTN (hypertension) Other iron deficiency anemias Anemia High risk medication use prednisone and leflunomide 12/2022 Peripheral arterial disease Chronic anticoagulation eliquis Unstable angina CAD (coronary artery disease) Seroma, postoperative Spinal stenosis, thoracic Degenerative disc disease, thoracic History of prostate cancer Urgency incontinence Renal cyst Acquired calcaneovarus deformity of both feet Lumbar stenosis with neurogenic claudication Orthostatic hypotension Venous insufficiency of both lower extremities Acute blood loss as cause of postoperative anemia Failed back surgical syndrome DDD (degenerative disc disease), lumbar Chronic back pain History of TIA (transient ischemic attack) Radiation cystitis Carotid artery disease Hx of cataract Closed fracture of right patella COVID-19 2020 Metatarsus adductus Osteoarthritis, generalized Seronegative rheumatoid arthritis Positive CORBY (antinuclear antibody) EDUARDO was negative in 2013 Gastroparesis GERD (gastroesophageal reflux disease) Cervical postlaminectomy syndrome FUAD (obstructive sleep apnea) Hyperlipidemia COPD (chronic obstructive pulmonary disease) H/O malignant neoplasm of skin Surgical History Status post revision of total replacement of right knee History of total bilateral knee replacement (TKR) Hx of excision of epidermal inclusion cyst Hx of excision of mass 04/12/23 Dr Fitzgerald- Elliptical excision of skin and subcutaneous back mass S/P laminectomy with spinal fusion S/P spinal fusion 02/2021 - T9-S1 Dr Delarosa History of penile implant Status post spinal arthrodesis S/P lumbar fusion History of cardiac cath ~2012 nonobstructive 10/2022 stress test EF 43 %, small areas prior infarcts RCA and LAD territories History of hip surgery RIGHT 04/11/19 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 History of total right hip arthroplasty History of total left hip arthroplasty History of abdominal aortic aneurysm (AAA) repair History of tonsillectomy and adenoidectomy Hx of appendectomy History of back surgery multiple procedures (>10) H/O neck surgery x 2 Hx of cholecystectomy H/O colonoscopy 2011 H/O esophagogastroduodenoscopy 2011 Family History Mother , Age 81 Bleeding disorder Clotting disorder CAD (coronary artery disease) 60s Cancer Stroke Father , Age 94 CAD (coronary artery disease) 80 Dementia Daughter Chronic kidney disease (CKD) Brother CAD (coronary artery disease) [place] Cancer Denies family history of Diabetes Suicide Anesthesia complication Lung disease Social History Smoking and tobacco/nicotine status: never used tobacco/nicotine Alcohol intake: never Substance/Drug Use: never Household members: spouse Marital status: Current occupational status: retired Special danny needs: No Agree to transfusion: Yes Vitals/I&O/Wt Last Vital Signs Temp 98.7 F 10/28/24 09:55 Pulse 72 10/28/24 19:00 Resp 18 10/28/24 19:00 BP 172/106 10/28/24 19:00 Pulse Ox 94 10/28/24 19:23 O2 Del Method Room Air 10/28/24 19:23 10/28/24 10/28/24 10/28/24 06:59 14:59 22:59 Intake Total 500 / 500 500 / 1000 Balance 500 / 500 500 / 1000 Weight last 48 hrs Weight 240 lb Physical Exam Const: COMMON NORMALS: no acute distress and patient oriented x3 HENMT: COMMON NORMALS: normocephalic HEAD & SCALP: normocephalic Eye: COMMON NORMALS: Equal, round and reactive pupils present and EOMs intact bilaterally PUPIL: Yes Equal, round and reactive pupils present Resp: COMMON NORMALS: normal respiratory effort, No retractions, No use of accessory muscles and clear to auscultation bilaterally AUSCULTATION: clear to auscultation bilaterally Cardio: COMMON NORMALS: regular rate, regular rhythm, S1 normal heart sound present and S2 normal heart sound present RATE: regular rate RHYTHM: regular rhythm HEART SOUNDS: S1 normal heart sound present and S2 normal heart sound present GI: OTHER: Abdomen soft, distended, good bowel sounds, no guarding, no rebound, rigidity Rectal showed no masses no blood and minimal stool in the rectal vault. Extremity: COMMON NORMALS: no calf tenderness and no pedal edema Neuro: COMMON NORMALS: patient oriented x3, CN's II-XII intact bilaterally and moves all extremities Psych: COMMON NORMALS: mental status grossly normal Skin: NARRATIVE SKIN EXAM: Right scalp, area nodular, measuring 1 x 1 cm surrounding by erythema Data 10/28/24 11:00 10/28/24 11:00 A&P Assessment and plan 1. Colon distention: No acute surgical invention. Will add significant bowel regimen to help with colonic distention up to 9 cm. Will monitor closely with serial abdominal exams as he is severely distended with tympanic percussion. Will give soapsuds enema as well as lactulose to try to relieve this significant colonic dilatation secondary to likely chronic and acute constipation. If needed will repeat CT scan if symptoms progress or worsen after conservative treatment attempted. Will continue to follow closely. Conservative care per hospitalist team while he is in the hospital. 2. Colitis: 3. Constipation: 4. Opioid-induced constipation: 5. Dizziness: 6. Dehydration: Plan: Opioid-induced constipation -With colon distention -With stercoral colitis Stomach and bowel: There is marked distension of the ascending and transverse colon. The greatest transverse measurement of the transverse colon is 9 cm unchanged compared to the prior exam. The cecum and ascending colon is very distended with stool and air with a greatest transverse measurement of 9 cm. There is less significant of the descending colon with gradual transition to normal caliber/collapsed sigmoid colon and rectum. No abrupt transition zone or obstruction. Previously, there was a focal area of narrowing of the descending colon concerning for stricture which is unremarkable on this exam. No dilated loops of small bowel. There is no pneumatosis. The fundus of the stomach is mildly distended with food/secretions but otherwise unremarkable. There is wall thickening of the cecum and ascending colon concerning for stercoral colitis. Plan - N.p.o. - IV fluids - Zofran for nausea - Has received lactulose in the emergency room - 1 dose of Relistor - Serial abdominal exams - General Surgery consulted - Full code - Lovenox for DVT prophylaxis Dizziness - CT head no acute findings - IV fluids - telemetry monitoring - Troponin series - Cardiac echo - Carotid artery ultrasound - Aspirin, statin History of atrial fibrillation - Hold Eliquis - Switch to therapeutic Lovenox given colon distention as above Hypertension - Continue home blood pressure medications Hypothyroidism - TSH improving to 9.5 History of squamous cell carcinoma - Has erythema, swelling, tenderness around right temporal - With purulent drainage - Will place on doxycycline and Augmentin Generalized weakness, fatigue - History of squamous cell carcinoma immunotherapy PDMP PDMP Reviewed: Not Reviewed Coding Level of Care Code Acute Code for g Fwd Diagnoses Colon distention K63.89 Colitis K52.9 Constipation K59.00 Opioid-induced constipation K59.03; T40.2X5A Dizziness R42 Dehydration E86.0
[2024-10-28 20:55] LABS: INR 1.07 (0.8-1.2); Prothrombin Time 14.60 SECONDS (12.1-14.9)
[2024-10-28] MEDS: pantoprazole 40 mg SDV IVP (20:55)
[2024-10-29] VITALS (11 sets, daily range): BP systolic 116–168; BP diastolic 69–94; PULSE 62–81; RESP 14–99; TEMP 36.5–37; O2SAT 95–99
[2024-10-29] MEDS: ondansetron 2 mg/ML SDV 2 mL 4 MG IVP (06:08)
[2024-10-29] MEDS: pantoprazole 40 mg SDV IVP ×2 (06:08→20:30)
[2024-10-29 06:13] LABS: Hematocrit 38.2 % (37-53); Hemoglobin 11.60 g/dL (11.27-16.99); Mean Corpuscular HGB Conc 30.4 g/dL (30-55); Mean Corpuscular Hemoglobin 31.4 pg (27-33); Mean Corpuscular Volume 103.5 fl (82-101); Nucleated Red Blood Cells % 0 %; Platelet Count 175 10^3/cmm (157-399); Red Blood Count 3.69 10^6/uL (3.85-5.65); White Blood Count 10.66 10^3/uL (3.29-11.43)
[2024-10-29 06:25] LABS: Alanine Aminotransferase 11 U/L (0-41); Albumin Level 3.4 g/dL (3.5-5.2); Alkaline Phosphatase 72 U/L (40-130); Anion Gap 15.1 (5-19); Aspartate Amino Transferase 11 U/L (0-40); Blood Urea Nitrogen 13 mg/dL (8-23); Calcium 8.6 mg/dL (8.5-10.5); Carbon Dioxide 22 mmol/L (22-29); Chloride 106 mmol/L (98-107); Creatinine Clr Calc Pharmacy 96.4650; Globulin 2.5 g/dL (1.3-4.6); Glucose 118 mg/dL (65-115); Magnesium 2.3 mg/dL (1.7-2.3); Osmolality Calculated 289 mOsm/kg (285-295); Potassium 4.1 mmol/L (3.5-5.1); Sodium 139 mmol/L (136-145); Total Protein 5.9 g/dL (6.6-8.7)
[2024-10-29 10:42] LABS: Glucose Urine UA Negative (Normal); Nitrate Urine Negative (Negative)
[2024-10-29 10:53] LABS: Add Urine Microscopic? YES; Specific Gravity, Urine 1.049 (1.005-1.030); UA Manual Slide Review YES
--- NOTE | 2024-10-29 12:02 | P.PN_ITS ---
Subjective 2 Subjective: Patient is seen this morning, does report that he had liquidy bowel movement overnight with the enema, continues to have abdominal distention, abdominal pain, he is passing gas from below, he feels like he has to have a bowel movement he is on 2 L, does use oxygen at home Vitals/I&O/Wt Last Vital Signs Temp 97.7 F 10/29/24 10:57 Pulse 62 10/29/24 10:57 Resp 16 10/29/24 10:57 BP 133/69 10/29/24 10:57 Pulse Ox 99 10/29/24 10:57 O2 Del Method Nasal Cannula 10/29/24 10:57 O2 Flow Rate 2 10/29/24 08:00 10/28/24 10/29/24 10/29/24 22:59 06:59 14:59 Intake Total 500 / 1000 Output Total 300 / 300 Balance 500 / 1000 -300 / 700 Weight last 48 hrs Weight 122.016 kg Weight 122.379 kg Weight 108.862 kg Physical Exam 2 Const: COMMON NORMALS: no acute distress and patient oriented x3 Neck/C-Spine: COMMON NORMALS: no JVD Resp: COMMON NORMALS: normal respiratory effort, No retractions, No use of accessory muscles and clear to auscultation bilaterally AUSCULTATION: clear to auscultation bilaterally Cardio: COMMON NORMALS: no JVD, regular rate, regular rhythm, S1 normal heart sound present and S2 normal heart sound present RATE: regular rate RHYTHM: regular rhythm HEART SOUNDS: S1 normal heart sound present and S2 normal heart sound present GI: OTHER: Abdomen soft, distended, no guarding, no rebound, no rigidity Extremity: COMMON NORMALS: no pedal edema Neuro: COMMON NORMALS: patient oriented x3, CN's II-XII intact bilaterally and moves all extremities Psych: COMMON NORMALS: mental status grossly normal Data 10/29/24 05:21 10/29/24 05:21 Micro: Microbiology 10/28/24 19:12 Blood Culture - Preliminary Blood SPECIMEN COLLECTED 10/28/24 19:23 Blood Culture - Preliminary Blood SPECIMEN COLLECTED A&P Assessment and plan 1. Opioid-induced constipation: 2. Colon distention: 3. Dizziness: 4. Dehydration: Plan: Opioid-induced constipation -With colon distention -With stercoral colitis Stomach and bowel: There is marked distension of the ascending and transverse colon. The greatest transverse measurement of the transverse colon is 9 cm unchanged compared to the prior exam. The cecum and ascending colon is very distended with stool and air with a greatest transverse measurement of 9 cm. There is less significant of the descending colon with gradual transition to normal caliber/collapsed sigmoid colon and rectum. No abrupt transition zone or obstruction. Previously, there was a focal area of narrowing of the descending colon concerning for stricture which is unremarkable on this exam. No dilated loops of small bowel. There is no pneumatosis. The fundus of the stomach is mildly distended with food/secretions but otherwise unremarkable. There is wall thickening of the cecum and ascending colon concerning for stercoral colitis. Plan - Clear liquid - IV fluids - Zofran for nausea - Has received lactulose in the emergency room - 1 dose of Relistor yesterday, with soapsuds enema, another dose of Relistor today,mineral oil enema - Serial abdominal exams - General Surgery consulted - Full code - Lovenox for DVT prophylaxis Dizziness - CT head no acute findings - IV fluids - telemetry monitoring - Cardiac echo - Carotid artery ultrasound - Aspirin, statin History of atrial fibrillation - Hold Eliquis - Switch to therapeutic Lovenox given colon distention as above Hypertension - Continue home blood pressure medications Hypothyroidism - TSH improving to 9.5 History of squamous cell carcinoma - Has erythema, swelling, tenderness around right temporal - With purulent drainage - Will place on doxycycline and Augmentin Generalized weakness, fatigue - History of squamous cell carcinoma immunotherapy PDMP PDMP Reviewed: Last Reviewed 10/28/24 18:02 by Jac Polanco MD Attestations 2 Medical Necessity Statement*: Patient requires hospitalization for opioid-induced constipation, Diagnoses Opioid-induced constipation K59.03; T40.2X5A Colon distention K63.89 Dizziness R42 Dehydration E86.0
--- NOTE | 2024-10-29 12:28 | P.PN_ITS ---
Subjective 2 Subjective: Patient is seen this morning, does report that he had liquidy bowel movement overnight with the enema, continues to have abdominal distention, abdominal pain, he is passing gas from below, he feels like he has to have a bowel movement he is on 2 L, does use oxygen at home Vitals/I&O/Wt Last Vital Signs Temp 97.7 F 10/29/24 10:57 Pulse 62 10/29/24 10:57 Resp 16 10/29/24 10:57 BP 133/69 10/29/24 10:57 Pulse Ox 99 10/29/24 10:57 O2 Del Method Nasal Cannula 10/29/24 10:57 O2 Flow Rate 2 10/29/24 08:00 10/28/24 10/29/24 10/29/24 22:59 06:59 14:59 Intake Total 500 / 1000 Output Total 300 / 300 Balance 500 / 1000 -300 / 700 Weight last 48 hrs Weight 269 lb Weight 269 lb 12.8 oz Weight 240 lb Physical Exam 2 Const: COMMON NORMALS: no acute distress and patient oriented x3 Neck/C-Spine: COMMON NORMALS: no JVD Resp: COMMON NORMALS: normal respiratory effort, No retractions, No use of accessory muscles and clear to auscultation bilaterally AUSCULTATION: clear to auscultation bilaterally Cardio: COMMON NORMALS: no JVD, regular rate, regular rhythm, S1 normal heart sound present and S2 normal heart sound present RATE: regular rate RHYTHM: regular rhythm HEART SOUNDS: S1 normal heart sound present and S2 normal heart sound present GI: OTHER: Abdomen soft, distended, no guarding, no rebound, no rigidity Extremity: COMMON NORMALS: no pedal edema Neuro: COMMON NORMALS: patient oriented x3, CN's II-XII intact bilaterally and moves all extremities Psych: COMMON NORMALS: mental status grossly normal Data 10/29/24 05:21 10/29/24 05:21 Micro: Microbiology 10/28/24 19:12 Blood Culture - Preliminary Blood SPECIMEN COLLECTED 10/28/24 19:23 Blood Culture - Preliminary Blood SPECIMEN COLLECTED A&P Assessment and plan 1. Opioid-induced constipation: 2. Colon distention: 3. Dizziness: 4. Dehydration: Plan: Opioid-induced constipation -With colon distention -With stercoral colitis Stomach and bowel: There is marked distension of the ascending and transverse colon. The greatest transverse measurement of the transverse colon is 9 cm unchanged compared to the prior exam. The cecum and ascending colon is very distended with stool and air with a greatest transverse measurement of 9 cm. There is less significant of the descending colon with gradual transition to normal caliber/collapsed sigmoid colon and rectum. No abrupt transition zone or obstruction. Previously, there was a focal area of narrowing of the descending colon concerning for stricture which is unremarkable on this exam. No dilated loops of small bowel. There is no pneumatosis. The fundus of the stomach is mildly distended with food/secretions but otherwise unremarkable. There is wall thickening of the cecum and ascending colon concerning for stercoral colitis. Plan - Clear liquid - IV fluids - Zofran for nausea - Has received lactulose in the emergency room - 1 dose of Relistor yesterday, with soapsuds enema, another dose of Relistor today,mineral oil enema - Serial abdominal exams - General Surgery consulted - Full code - Lovenox for DVT prophylaxis Dizziness - CT head no acute findings - IV fluids - telemetry monitoring - Cardiac echo - Carotid artery ultrasound - Aspirin, statin History of atrial fibrillation - Hold Eliquis - Switch to therapeutic Lovenox given colon distention as above Hypertension - Continue home blood pressure medications Hypothyroidism - TSH improving to 9.5 History of squamous cell carcinoma - Has erythema, swelling, tenderness around right temporal - With purulent drainage - Will place on doxycycline and Augmentin Generalized weakness, fatigue - History of squamous cell carcinoma immunotherapy PDMP PDMP Reviewed: Not Reviewed Attestations 2 Medical Necessity Statement*: per hospitalist team Coding Level of Care Code Acute Code for Chg Fwd Diagnoses Opioid-induced constipation K59.03; T40.2X5A Colon distention K63.89 Dizziness R42 Dehydration E86.0
[2024-10-29] MEDS: methylnaltrexone 12 /0.6 mL INJ 12 MG SUBCUT (13:04)
[2024-10-29] MEDS: polyethylene glycol 3350 Pkt 17 gm PO (17:14)
[2024-10-29] MEDS: FUROsemide 10 mg/mL SDV 4mL 40 MG IVP (18:01)
--- NOTE | 2024-10-29 18:06 | USCV_ITS ---
Transthoracic Echo Limited Kojo Marinelli Age: 78 Gender: M : 1945 Exam Date: 10/29/2024 09:10 Ordering Phys: Jac Polanco MD Technologist: Nathan Muro Exam Location: [facility] [place] Indication: dizziness BP: 140 / 87 HR: Rhythm: Sinus Technical Quality: Adequate MEASUREMENTS (Male / Female) Normal Values 2D ECHO LV Diastolic Diameter PLAX 5.2 cm 4.2 - 5.9 / 3.9 - 5.3 cm IVS Diastolic Thickness 0.9 cm 0.6 - 1.0 / 0.6 - 0.9 cm IVS Systolic Thickness 1.5 cm LVPW Diastolic Thickness 0.9 cm 0.6 - 1.0 / 0.6 - 0.9 cm LVPW Systolic Thickness 1.6 cm LVOT Diameter 2.2 cm LV Ejection Fraction 2D Teich 55.8 % LV Ejection Fraction MOD 4C 63.5 % LV Ejection Fraction MOD 2C 53.3 % LV Ejection Fraction 2C AL 55.1 % LA Diameter 4.3 cm RA Systolic Volume 4C AL 39.2 ml RA Systolic Volume 4C MOD 39.0 ml LA Sys Volume AL 51.2 cm cubed LA Sys Volume Index AL 20.4 cm cubed/m squared Aorta at Sinotubular Diameter 3.3 cm M-MODE LA Ao Ratio MM 1.2 AV Cusp Separation MM 2.8 cm FINDINGS Left Ventricle Normal left ventricular size, systolic function and wall thickness, with no regional wall motion abnormalities. Left ventricular ejection fraction is 55 %. Indeterminate LV distolic function. Right Ventricle Normal right ventricular size and systolic function. Right Atrium Normal right atrial size. Left Atrium Normal left atrial size. Mitral Valve Aortic Valve Tricuspid Valve Pulmonic Valve Pericardium No pericardial effusion. Aorta IVC CONCLUSIONS Echo ordered as a limited study. 1. Normal LV and RV size and systolic function. LV EF 55%. James Pineda MD, FACC (Electronically Signed) Final Date: 29 October 2024 16:57 S
--- NOTE | 2024-10-29 18:06 | USR_ITS ---
PROCEDURE INFORMATION: Exam: US Duplex Bilateral Extracranial Arteries; Complete; Carotid Arteries Exam date and time: 10/29/2024 8:44 AM Age: 78 years old Clinical indication: Dizziness TECHNIQUE: Imaging protocol: Real-time duplex ultrasound scan of the bilateral extracranial arteries combining doe scale, color Doppler and spectral waveform analysis with image documentation. Complete exam. Exam focused on the carotid arteries. COMPARISON: CT head wo con* [id number] 10/28/2024 12:13 PM FINDINGS: Right common carotid artery: Unremarkable. No occlusion or stenosis. Waveforms are normal. Right internal carotid artery: Unremarkable. No occlusion or stenosis. Waveforms are normal. Right ICA/CCA ratio: Within normal limits. Right external carotid artery: No stenosis in the origin. Right vertebral artery: Unremarkable. Antegrade flow. Left common carotid artery: Unremarkable. No occlusion or stenosis. Waveforms are normal. Left internal carotid artery: Unremarkable. No occlusion or stenosis. Waveforms are normal. Left ICA/CCA ratio: Within normal limits. Left external carotid artery: No stenosis in the origin. Left vertebral artery: Unremarkable. Antegrade flow. US/CV carotid duplex BI* [id number] IMPRESSION: No significant carotid arterial stenosis. REFERENCES: SRU CRITERIA. The degree of internal carotid artery stenosis is based on criteria defined by the Society of Radiologists in Ultrasound (SRU). Normal is no stenosis. Mild is less than 50% stenosis. Moderate is 50-69% stenosis. Severe is greater than 69% stenosis to near occlusion. Near occlusion is a markedly narrowed lumen. Total occlusion is no detectable patent lumen. Reference: Larry Hines, et al. Carotid Artery Stenosis: Doe-Scale and Doppler US Diagnosis-Society of Radiologists in Ultrasound Consensus Conference. Radiology 2003; 229:340-346.
[2024-10-30] VITALS (11 sets, daily range): BP systolic 118–155; BP diastolic 72–83; PULSE 68–91; RESP 14–18; TEMP 36.5–37; O2SAT 94–100
[2024-10-30] MEDS: ondansetron 2 mg/ML SDV 2 mL 4 MG IVP ×2 (03:12→19:39)
[2024-10-30 04:41] LABS: Hematocrit 36.5 % (37-53); Hemoglobin 11.50 g/dL (11.27-16.99); Mean Corpuscular HGB Conc 31.5 g/dL (30-55); Mean Corpuscular Hemoglobin 31.3 pg (27-33); Mean Corpuscular Volume 99.5 fl (82-101); Nucleated Red Blood Cells % 0 %; Platelet Count 194 10^3/cmm (157-399); Red Blood Count 3.67 10^6/uL (3.85-5.65); White Blood Count 10.76 10^3/uL (3.29-11.43)
[2024-10-30 04:53] LABS: Alanine Aminotransferase 10 U/L (0-41); Albumin Level 3.4 g/dL (3.5-5.2); Alkaline Phosphatase 72 U/L (40-130); Anion Gap 13.6 (5-19); Aspartate Amino Transferase 10 U/L (0-40); Blood Urea Nitrogen 17 mg/dL (8-23); Calcium 8.5 mg/dL (8.5-10.5); Carbon Dioxide 25 mmol/L (22-29); Chloride 100 mmol/L (98-107); Creatinine Clr Calc Pharmacy 77.1720; Globulin 2.5 g/dL (1.3-4.6); Glucose 97 mg/dL (65-115); Magnesium 2.1 mg/dL (1.7-2.3); Osmolality Calculated 281 mOsm/kg (285-295); Potassium 3.6 mmol/L (3.5-5.1); Sodium 135 mmol/L (136-145); Total Protein 5.9 g/dL (6.6-8.7)
[2024-10-30] MEDS: pantoprazole 40 mg SDV IVP ×2 (06:24→19:41)
--- NOTE | 2024-10-30 08:55 | PC.NURSE ---
notified Dr. Polanco patient refused miralax. States he cannot take it at home either makes him sick.
--- NOTE | 2024-10-30 10:48 | P.PN_ITS ---
Subjective 2 Subjective: Distended Having some bowel function Vitals/I&O/Wt Last Vital Signs Temp 97.7 F 10/30/24 08:49 Pulse 68 10/30/24 08:49 Resp 18 10/30/24 08:49 BP 130/83 10/30/24 08:49 Pulse Ox 100 10/30/24 08:02 O2 Del Method Nasal Cannula 10/30/24 08:02 O2 Flow Rate 3 10/30/24 08:00 10/29/24 10/30/24 10/30/24 22:59 06:59 14:59 Intake Total 480 / 480 480 / 960 480 / 480 Output Total 400 / 400 1600 / 2000 150 / 150 Balance 80 / 80 -1120 / -1040 330 / 330 Weight last 48 hrs Weight 269 lb Weight 269 lb 12.8 oz Physical Exam 2 Narrative: Chest: Unlabored breathing room air. No lymphadenopathy. Heart: Regular rate and rhythm. Abdomen: Soft, distended. Nontender Data 10/31/24 04:53 10/31/24 04:53 Micro: Microbiology 10/28/24 19:12 Blood Culture - Preliminary Blood NEGATIVE TO DATE 10/28/24 19:23 Blood Culture - Preliminary Blood NEGATIVE TO DATE A&P Assessment and plan 1. Colon distention: Plan: 78-year-old male with a colonic ileus. Discussed with hospitalist. No surgical intervention indicated. Will try GoLytely. PDMP PDMP Reviewed: Not Reviewed Attestations 2 Medical Necessity Statement*: N/A Coding Level of Care Code 48291 Diagnoses Colon distention K63.89
--- NOTE | 2024-10-30 11:38 | PC.NURSE ---
Doctors changed today. Notified Dr. Rios of patient not being able to take miralax due to make him sick.
[2024-10-30] MEDS: piperacillin-tazobactam 3.375 GM in sodium chloride 0.9% (plus) 50 ML IV ×2 (13:34→19:41)
--- NOTE | 2024-10-30 16:18 | P.PN_ITS ---
Subjective 2 Subjective: Patient states he had a bowel movement after enema administration yesterday. He continues to have abdominal distention. Passed a little bit of gas today after working with physical therapy in bed. Medications: Reviewed: Yes Vitals/I&O/Wt Last Vital Signs Temp 98.5 F 10/30/24 16:08 Pulse 72 10/30/24 16:08 Resp 14 10/30/24 16:08 BP 147/77 10/30/24 16:08 Pulse Ox 94 10/30/24 11:55 O2 Del Method Nasal Cannula 10/30/24 16:08 O2 Flow Rate 3 10/30/24 08:00 10/30/24 10/30/24 10/30/24 06:59 14:59 22:59 Intake Total 480 / 960 1160 / 1160 Output Total 1600 / 2000 150 / 150 Balance -1120 / -1040 1010 / 1010 Weight last 48 hrs Weight 122.016 kg Weight 122.379 kg Physical Exam 2 Narrative: General: No acute distress, AO x3 HEENT: PERRLA, pupils bilaterally equal and reactive, pallors not present Chest: Normal vesicular breath sounds, no added sounds, equal good air entry bilaterally CVS: S1-S2 regular, no murmurs, no tachycardia, no gallops, no rubs Abdomen: Soft, distended, no organomegaly, bowel sounds faint Neuro: No focal deficits, no facial deformity, AO x3, power 5/5 in all limbs Data 10/30/24 03:32 10/30/24 03:32 Micro: Microbiology 10/28/24 19:12 Blood Culture - Preliminary Blood NEGATIVE TO DATE 10/28/24 19:23 Blood Culture - Preliminary Blood NEGATIVE TO DATE A&P Assessment and plan 1. Opioid-induced constipation: 2. Colon distention: 3. Dizziness: 4. Dehydration: Plan: Opioid-induced constipation -With colon distention -With stercoral colitis Stomach and bowel: There is marked distension of the ascending and transverse colon. The greatest transverse measurement of the transverse colon is 9 cm unchanged compared to the prior exam. The cecum and ascending colon is very distended with stool and air with a greatest transverse measurement of 9 cm. There is less significant of the descending colon with gradual transition to normal caliber/collapsed sigmoid colon and rectum. No abrupt transition zone or obstruction. Previously, there was a focal area of narrowing of the descending colon concerning for stricture which is unremarkable on this exam. No dilated loops of small bowel. There is no pneumatosis. The fundus of the stomach is mildly distended with food/secretions but otherwise unremarkable. There is wall thickening of the cecum and ascending colon concerning for stercoral colitis. Plan - Clear liquid - IV fluids - Zofran for nausea - Has received lactulose in the emergency room - 1 dose of Relistor yesterday, with soapsuds enema, another dose of Relistor today,mineral oil enema - Serial abdominal exams - General Surgery consulted - Full code - Lovenox for DVT prophylaxis Dizziness - CT head no acute findings - IV fluids - telemetry monitoring - Cardiac echo - Carotid artery ultrasound - Aspirin, statin History of atrial fibrillation - Hold Eliquis - Switch to therapeutic Lovenox given colon distention as above Hypertension - Continue home blood pressure medications Hypothyroidism - TSH improving to 9.5 History of squamous cell carcinoma - Has erythema, swelling, tenderness around right temporal - With purulent drainage - Will place on doxycycline and Augmentin Generalized weakness, fatigue - History of squamous cell carcinoma immunotherapy October 30, 2024 78-year-old male currently admitted to the hospital with opiate induced constipation with stercoral colitis. Currently on oral Augmentin and doxycycline. Will discontinue these medications and start IV piperacillin/tazobactam. He is passing minimal gas at this present time. States he is feeling nauseous. Zofran seems to be helping very little. He has received a dose of Relistor x 2. Discussed case with general surgery, recommended to continue antibiotics and also enema and trial of GoLytely today. These have been ordered. Change dressing over the right temporal region, mupirocin application and changes after Optifoam daily. He is currently on a clear liquid diet. Clinically appearing to be hypervolemic with crackles on exam bilaterally. Lasix 40 mg IV today. Closely monitor renal function with this change. He is off of IV fluids at this time. PDMP PDMP Reviewed: Not Reviewed Attestations 2 Medical Necessity Statement*: Continued stercoral colitis, abdominal distention unable to advance diet at this time. Coding Level of Care Code Acute Code for Chg Fwd Moderate MDM includes number and complexity of problems actively addressed during encounter, amount and/or complexity of data reviewed/ordered and described risk of complication, morbidity or mortality of management as documented Diagnoses Opioid-induced constipation K59.03; T40.2X5A Colon distention K63.89 Dizziness R42 Dehydration E86.0
--- NOTE | 2024-10-30 16:23 | XRR_ITS ---
PROCEDURE INFORMATION: Exam: XR Abdomen Exam date and time: 10/30/2024 4:58 PM Age: 78 years old Clinical indication: Bloating; Prior surgery; Surgery date: 6+ months; Surgery type: Aaa back fusion hip; Additional info: Assess serial colonic distension TECHNIQUE: Imaging protocol: Radiologic exam of the abdomen. Views: Frontal supine view of the abdomen. 1 View. COMPARISON: CT abdomen pelvis w con* [id number] 10/28/2024 12:17 PM FINDINGS: Gastrointestinal tract: Colonic distension to the level of the pelvis is seen, similar in appearance when correlated with exterior designer film of recent CT abdomen and pelvis. Suggestive decreased stool content in the right colon otherwise. No findings to indicate small bowel dilatation. No findings to indicate pneumatosis. Intraperitoneal space: No indication of free air. Bones/joints: Postsurgical hardware within the visualized thoracolumbar spine and partially visualized bilateral hip prostheses. XR/XR abdomen 1V* [id number] IMPRESSION: Colonic distension appears similar to recent CT 10/28/2024. Suggestion of decreased stool content in the right colon otherwise.
[2024-10-30] MEDS: peg /e-lyte soln 4,000 mL Btl 1500 ML PO (16:49)
[2024-10-30] MEDS: FUROsemide 10 mg/mL SDV 4mL 40 MG IVP (16:49)
[2024-10-30] MEDS: mupirocin oint 22 gm 1 APPLIC TOPICAL (20:53)
[2024-10-31] VITALS (10 sets, daily range): BP systolic 103–162; BP diastolic 66–82; PULSE 60–91; RESP 16–18; TEMP 36.5–37.1; O2SAT 93–96
[2024-10-31] MEDS: piperacillin-tazobactam 3.375 GM in sodium chloride 0.9% (plus) 50 ML IV ×3 (04:02→20:12)
[2024-10-31 05:09] LABS: Hematocrit 35.7 % (37-53); Hemoglobin 11.30 g/dL (11.27-16.99); Mean Corpuscular HGB Conc 31.7 g/dL (30-55); Mean Corpuscular Hemoglobin 30.7 pg (27-33); Mean Corpuscular Volume 97.0 fl (82-101); Nucleated Red Blood Cells % 0 %; Platelet Count 193 10^3/cmm (157-399); Red Blood Count 3.68 10^6/uL (3.85-5.65); White Blood Count 10.75 10^3/uL (3.29-11.43)
[2024-10-31 05:32] LABS: Alanine Aminotransferase 11 U/L (0-41); Albumin Level 3.6 g/dL (3.5-5.2); Alkaline Phosphatase 69 U/L (40-130); Anion Gap 16.4 (5-19); Aspartate Amino Transferase 12 U/L (0-40); Blood Urea Nitrogen 21 mg/dL (8-23); Calcium 8.7 mg/dL (8.5-10.5); Carbon Dioxide 25 mmol/L (22-29); Chloride 99 mmol/L (98-107); Creatinine Clr Calc Pharmacy 76.7187; Globulin 2.5 g/dL (1.3-4.6); Glucose 111 mg/dL (65-115); Magnesium 1.9 mg/dL (1.7-2.3); Osmolality Calculated 288 mOsm/kg (285-295); Potassium 3.4 mmol/L (3.5-5.1); Sodium 137 mmol/L (136-145); Total Protein 6.1 g/dL (6.6-8.7)
[2024-10-31] MEDS: pantoprazole 40 mg SDV IVP ×2 (06:42→18:18)
--- NOTE | 2024-10-31 12:09 | P.PN_ITS ---
Subjective 2 Subjective: Tolerating p.o. Having bowel function on GoLytely Abdomen distended but benign Patient feels better Vitals/I&O/Wt Last Vital Signs Temp 98.3 F 10/31/24 11:38 Pulse 66 10/31/24 11:38 Resp 18 10/31/24 11:38 BP 103/70 10/31/24 11:38 Pulse Ox 93 10/31/24 11:38 O2 Del Method Nasal Cannula 10/31/24 11:38 O2 Flow Rate 3 10/31/24 08:00 10/30/24 10/31/24 10/31/24 22:59 06:59 14:59 Intake Total 730 / 1890 290 / 2180 730 / 730 Output Total 1000 / 1150 Balance -270 / 740 290 / 1030 730 / 730 Weight last 48 hrs Weight 266 lb Physical Exam 2 Narrative: Chest: Unlabored breathing room air. No lymphadenopathy. Heart: Regular rate and rhythm. Abdomen: Soft, distended. Non tender. Benign Data 10/31/24 04:53 10/31/24 04:53 A&P Assessment and plan 1. Colon distention: Plan: 78-year-old male admitted with a colonic ileus. Now having bowel movements after trying GoLytely. Patient needs to be evaluated by gastroenterology for workup and management of colonic ileus. From a surgical perspective not much to add. Patient should be discharged on a bowel regimen. PDMP PDMP Reviewed: Not Reviewed Attestations 2 Medical Necessity Statement*: N/A Coding Level of Care Code 28152 Diagnoses Colon distention K63.89
--- NOTE | 2024-10-31 14:18 | P.PN_ITS ---
Subjective 2 Subjective: Patient had several bowel movements yesterday after taking GoLytely. He wishes to back off from the GoLytely at this time and agreeable to lactulose. Medications: Reviewed: Yes Vitals/I&O/Wt Last Vital Signs Temp 98.3 F 10/31/24 11:38 Pulse 66 10/31/24 11:38 Resp 18 10/31/24 11:38 BP 103/70 10/31/24 11:38 Pulse Ox 93 10/31/24 11:38 O2 Del Method Nasal Cannula 10/31/24 11:38 O2 Flow Rate 3 10/31/24 08:00 10/30/24 10/31/24 10/31/24 22:59 06:59 14:59 Intake Total 730 / 1890 290 / 2180 730 / 730 Output Total 1000 / 1150 Balance -270 / 740 290 / 1030 730 / 730 Weight last 48 hrs Weight 120.656 kg Physical Exam 2 Narrative: General: No acute distress, AO x3 HEENT: PERRLA, pupils bilaterally equal and reactive, pallors not present Chest: Normal vesicular breath sounds, no added sounds, equal good air entry bilaterally CVS: S1-S2 regular, no murmurs, no tachycardia, no gallops, no rubs Abdomen: Soft, distended, no organomegaly, bowel sounds faint Neuro: No focal deficits, no facial deformity, AO x3, power 5/5 in all limbs Data 10/31/24 04:53 10/31/24 04:53 A&P Assessment and plan 1. Opioid-induced constipation: 2. Colon distention: 3. Dizziness: 4. Dehydration: Plan: Opioid-induced constipation -With colon distention -With stercoral colitis Stomach and bowel: There is marked distension of the ascending and transverse colon. The greatest transverse measurement of the transverse colon is 9 cm unchanged compared to the prior exam. The cecum and ascending colon is very distended with stool and air with a greatest transverse measurement of 9 cm. There is less significant of the descending colon with gradual transition to normal caliber/collapsed sigmoid colon and rectum. No abrupt transition zone or obstruction. Previously, there was a focal area of narrowing of the descending colon concerning for stricture which is unremarkable on this exam. No dilated loops of small bowel. There is no pneumatosis. The fundus of the stomach is mildly distended with food/secretions but otherwise unremarkable. There is wall thickening of the cecum and ascending colon concerning for stercoral colitis. Plan - Clear liquid - IV fluids - Zofran for nausea - Has received lactulose in the emergency room - 1 dose of Relistor yesterday, with soapsuds enema, another dose of Relistor today,mineral oil enema - Serial abdominal exams - General Surgery consulted - Full code - Lovenox for DVT prophylaxis Dizziness - CT head no acute findings - IV fluids - telemetry monitoring - Cardiac echo - Carotid artery ultrasound - Aspirin, statin History of atrial fibrillation - Hold Eliquis - Switch to therapeutic Lovenox given colon distention as above Hypertension - Continue home blood pressure medications Hypothyroidism - TSH improving to 9.5 History of squamous cell carcinoma - Has erythema, swelling, tenderness around right temporal - With purulent drainage - Will place on doxycycline and Augmentin Generalized weakness, fatigue - History of squamous cell carcinoma immunotherapy October 30, 2024 78-year-old male currently admitted to the hospital with opiate induced constipation with stercoral colitis. Currently on oral Augmentin and doxycycline. Will discontinue these medications and start IV piperacillin/tazobactam. He is passing minimal gas at this present time. States he is feeling nauseous. Zofran seems to be helping very little. He has received a dose of Relistor x 2. Discussed case with general surgery, recommended to continue antibiotics and also enema and trial of GoLytely today. These have been ordered. Change dressing over the right temporal region, mupirocin application and changes after Optifoam daily. He is currently on a clear liquid diet. Clinically appearing to be hypervolemic with crackles on exam bilaterally. Lasix 40 mg IV today. Closely monitor renal function with this change. He is off of IV fluids at this time. October 31, 2024 Patient had several bowel movements after GoLytely yesterday. Does not wish to take any further GoLytely at this time. Will continue with maintenance lactulose and milligram twice daily every day to minimize risk of getting constipated again. Right temporal region without any active pus drainage. Swelling is improving. Advance diet today to GI soft and assess for tolerability. No nausea or vomiting today. Rales to auscultation bilaterally hours today, as this is lower extremity edema. This is related to acute on chronic diastolic CHF exacerbation related to holding diuretics. Echocardiogram currently shows normal LV and RV size with systolic function of 55%. Will start Bumex 2 mg IV every 12 hours. Patient typically takes 2 mg p.o. Bumex twice daily at home. Closely monitor kidney function and urine output. Replete hypokalemia. Encourage out of bed today. PDMP PDMP Reviewed: Not Reviewed Attestations 2 Medical Necessity Statement*: IV diuresis today for acute on chronic diastolic CHF exacerbation.Advance diet, bowel function improving Coding Level of Care Code Acute Code for Chg Fwd Diagnoses Opioid-induced constipation K59.03; T40.2X5A Colon distention K63.89 Dizziness R42 Dehydration E86.0
[2024-10-31] MEDS: bumetanide 0.25 mg/mL SDV 10 mL 2 MG IVP (14:46)
[2024-10-31] MEDS: lactulose oral liq 20 gm/30 mL UDC 10 GM PO (14:46)
[2024-11-01] VITALS (9 sets, daily range): BP systolic 124–152; BP diastolic 66–83; PULSE 72–79; RESP 17–18; TEMP 36.6–37; O2SAT 94–98
[2024-11-01] MEDS: lactulose oral liq 20 gm/30 mL UDC 10 GM PO ×2 (02:32→14:30)
[2024-11-01] MEDS: bumetanide 0.25 mg/mL SDV 10 mL 2 MG IVP ×2 (02:32→14:30)
[2024-11-01] MEDS: piperacillin-tazobactam 3.375 GM in sodium chloride 0.9% (plus) 50 ML IV ×3 (04:07→20:07)
[2024-11-01 05:13] LABS: Hematocrit 34.0 % (37-53); Hemoglobin 11.10 g/dL (11.27-16.99); Mean Corpuscular HGB Conc 32.6 g/dL (30-55); Mean Corpuscular Hemoglobin 31.9 pg (27-33); Mean Corpuscular Volume 97.7 fl (82-101); Nucleated Red Blood Cells % 0 %; Platelet Count 184 10^3/cmm (157-399); Red Blood Count 3.48 10^6/uL (3.85-5.65); White Blood Count 6.80 10^3/uL (3.29-11.43)
[2024-11-01 05:31] LABS: Alanine Aminotransferase 10 U/L (0-41); Albumin Level 3.6 g/dL (3.5-5.2); Alkaline Phosphatase 63 U/L (40-130); Anion Gap 13.0 (5-19); Aspartate Amino Transferase 13 U/L (0-40); Blood Urea Nitrogen 15 mg/dL (8-23); Calcium 8.5 mg/dL (8.5-10.5); Carbon Dioxide 28 mmol/L (22-29); Chloride 102 mmol/L (98-107); Creatinine Clr Calc Pharmacy 76.7187; Globulin 2.4 g/dL (1.3-4.6); Glucose 108 mg/dL (65-115); Osmolality Calculated 291 mOsm/kg (285-295); Potassium 3.0 mmol/L (3.5-5.1); Sodium 140 mmol/L (136-145); Total Protein 6.0 g/dL (6.6-8.7)
[2024-11-01] MEDS: pantoprazole 40 mg SDV IVP ×2 (05:56→19:10)
[2024-11-01] MEDS: mupirocin oint 22 gm 1 APPLIC TOPICAL (08:33)
[2024-11-01] MEDS: ondansetron 2 mg/ML SDV 2 mL 4 MG IVP (12:55)
--- NOTE | 2024-11-01 14:18 | PC.SOCIAL ---
IMM UPDATED IMM dated and initialed, copy placed in chart and copy given to patient at this time.
--- NOTE | 2024-11-01 14:19 | P.PN_ITS ---
Subjective 2 Subjective: Patient was up with physical therapy earlier today and states he got pretty short of breath. His oxygen requirement went up to 4 L/min. He feels better after laying back in bed. Still with significant lower extremity edema. Medications: Reviewed: Yes Vitals/I&O/Wt Last Vital Signs Temp 97.8 F 11/01/24 11:26 Pulse 72 11/01/24 11:26 Resp 17 11/01/24 11:26 BP 144/77 11/01/24 11:26 Pulse Ox 95 11/01/24 11:26 O2 Del Method Nasal Cannula 11/01/24 11:26 O2 Flow Rate 3 11/01/24 04:00 10/31/24 11/01/24 11/01/24 22:59 06:59 14:59 Intake Total 530 / 1740 50 / 1790 410 / 410 Output Total 900 / 900 350 / 1250 Balance -370 / 840 -300 / 540 410 / 410 Weight last 48 hrs Weight 119.748 kg Weight 120.656 kg Physical Exam 2 Narrative: General: No acute distress, AO x3 HEENT: PERRLA, pupils bilaterally equal and reactive, pallors not present Chest: Normal vesicular breath sounds, no added sounds, equal good air entry bilaterally CVS: S1-S2 regular, no murmurs, no tachycardia, no gallops, no rubs Abdomen: Soft, distended, no organomegaly, bowel sounds faint Neuro: No focal deficits, no facial deformity, AO x3, power 5/5 in all limbs Data 11/01/24 05:02 11/01/24 05:02 A&P Assessment and plan 1. Opioid-induced constipation: 2. Colon distention: 3. Dizziness: 4. Dehydration: Plan: Opioid-induced constipation -With colon distention -With stercoral colitis Stomach and bowel: There is marked distension of the ascending and transverse colon. The greatest transverse measurement of the transverse colon is 9 cm unchanged compared to the prior exam. The cecum and ascending colon is very distended with stool and air with a greatest transverse measurement of 9 cm. There is less significant of the descending colon with gradual transition to normal caliber/collapsed sigmoid colon and rectum. No abrupt transition zone or obstruction. Previously, there was a focal area of narrowing of the descending colon concerning for stricture which is unremarkable on this exam. No dilated loops of small bowel. There is no pneumatosis. The fundus of the stomach is mildly distended with food/secretions but otherwise unremarkable. There is wall thickening of the cecum and ascending colon concerning for stercoral colitis. Plan - Clear liquid - IV fluids - Zofran for nausea - Has received lactulose in the emergency room - 1 dose of Relistor yesterday, with soapsuds enema, another dose of Relistor today,mineral oil enema - Serial abdominal exams - General Surgery consulted - Full code - Lovenox for DVT prophylaxis Dizziness - CT head no acute findings - IV fluids - telemetry monitoring - Cardiac echo - Carotid artery ultrasound - Aspirin, statin History of atrial fibrillation - Hold Eliquis - Switch to therapeutic Lovenox given colon distention as above Hypertension - Continue home blood pressure medications Hypothyroidism - TSH improving to 9.5 History of squamous cell carcinoma - Has erythema, swelling, tenderness around right temporal - With purulent drainage - Will place on doxycycline and Augmentin Generalized weakness, fatigue - History of squamous cell carcinoma immunotherapy October 30, 2024 78-year-old male currently admitted to the hospital with opiate induced constipation with stercoral colitis. Currently on oral Augmentin and doxycycline. Will discontinue these medications and start IV piperacillin/tazobactam. He is passing minimal gas at this present time. States he is feeling nauseous. Zofran seems to be helping very little. He has received a dose of Relistor x 2. Discussed case with general surgery, recommended to continue antibiotics and also enema and trial of GoLytely today. These have been ordered. Change dressing over the right temporal region, mupirocin application and changes after Optifoam daily. He is currently on a clear liquid diet. Clinically appearing to be hypervolemic with crackles on exam bilaterally. Lasix 40 mg IV today. Closely monitor renal function with this change. He is off of IV fluids at this time. October 31, 2024 Patient had several bowel movements after GoLytely yesterday. Does not wish to take any further GoLytely at this time. Will continue with maintenance lactulose and milligram twice daily every day to minimize risk of getting constipated again. Right temporal region without any active pus drainage. Swelling is improving. Advance diet today to GI soft and assess for tolerability. No nausea or vomiting today. Rales to auscultation bilaterally hours today, as this is lower extremity edema. This is related to acute on chronic diastolic CHF exacerbation related to holding diuretics. Echocardiogram currently shows normal LV and RV size with systolic function of 55%. Will start Bumex 2 mg IV every 12 hours. Patient typically takes 2 mg p.o. Bumex twice daily at home. Closely monitor kidney function and urine output. Replete hypokalemia. Encourage out of bed today. November 01, 2024 Patient continues to have bowel movements. Denies any abdominal pain. No nausea vomiting. Tolerated advancing diet to GI soft. Continues to have significant lower extremity edema. Was short of breath with activity today. Still net +1600 cc. Additional dose of Bumex 2 mg IV today in addition to 2 mg IV every 12 hours scheduled doses as he is currently getting. Potassium noted to be at 3.0. Repleted with 80 mEq p.o. Will repeat CMP this afternoon with ongoing diuresis. Once clinically euvolemic, patient will be optimized for discharge. PDMP PDMP Reviewed: Not Reviewed Attestations 2 Medical Necessity Statement*: Continued need for IV diuresis. Coding Level of Care Code Acute Code for Chg Fwd Diagnoses Opioid-induced constipation K59.03; T40.2X5A Colon distention K63.89 Dizziness R42 Dehydration E86.0
--- NOTE | 2024-11-01 15:03 | P.PN_ITS ---
Subjective 2 Subjective: Having bowel function Patient feeling better Tolerating po Abdomen benign Vitals/I&O/Wt Last Vital Signs Temp 97.8 F 11/01/24 11:26 Pulse 72 11/01/24 11:26 Resp 17 11/01/24 11:26 BP 144/77 11/01/24 11:26 Pulse Ox 95 11/01/24 11:26 O2 Del Method Nasal Cannula 11/01/24 11:26 O2 Flow Rate 3 11/01/24 04:00 11/01/24 11/01/24 11/01/24 06:59 14:59 22:59 Intake Total 50 / 1790 410 / 410 Output Total 350 / 1250 Balance -300 / 540 410 / 410 Weight last 48 hrs Weight 264 lb Weight 266 lb Physical Exam 2 Narrative: Chest: Unlabored breathing room air. No lymphadenopathy. Heart: Regular rate and rhythm. Abdomen: Soft, distended. Nontender. Data 11/01/24 05:02 11/01/24 05:02 A&P Assessment and plan 1. Colon distention: Plan: 78-year-old male whom surgery was consulted for colonic ileus. Having bowel function and tolerating p.o. Nothing to add from a surgical perspective. Patient needs to see gastroenterology in an elective basis for workup of colonic ileus. PDMP PDMP Reviewed: Not Reviewed Attestations 2 Medical Necessity Statement*: N/A Coding Level of Care Code 86321 Diagnoses Colon distention K63.89
[2024-11-01 20:32] LABS: Alanine Aminotransferase 13 U/L (0-41); Albumin Level 3.7 g/dL (3.5-5.2); Alkaline Phosphatase 63 U/L (40-130); Anion Gap 20.4 (5-19); Aspartate Amino Transferase 14 U/L (0-40); Blood Urea Nitrogen 13 mg/dL (8-23); Calcium 8.5 mg/dL (8.5-10.5); Carbon Dioxide 23 mmol/L (22-29); Chloride 99 mmol/L (98-107); Creatinine Clr Calc Pharmacy 76.4160; Globulin 2.6 g/dL (1.3-4.6); Glucose 133 mg/dL (65-115); Osmolality Calculated 290 mOsm/kg (285-295); Potassium 3.4 mmol/L (3.5-5.1); Sodium 139 mmol/L (136-145); Total Protein 6.3 g/dL (6.6-8.7)
[2024-11-02] VITALS (9 sets, daily range): BP systolic 112–160; BP diastolic 66–78; PULSE 66–87; RESP 17–18; TEMP 36.6–36.8; O2SAT 88–97
[2024-11-02] MEDS: bumetanide 0.25 mg/mL SDV 10 mL 2 MG IVP (02:26)
[2024-11-02] MEDS: lactulose oral liq 20 gm/30 mL UDC 10 GM PO (02:31)
[2024-11-02] MEDS: piperacillin-tazobactam 3.375 GM in sodium chloride 0.9% (plus) 50 ML IV ×3 (03:53→20:49)
[2024-11-02 06:15] LABS: Hematocrit 32.8 % (37-53); Hemoglobin 10.50 g/dL (11.27-16.99); Mean Corpuscular HGB Conc 32.0 g/dL (30-55); Mean Corpuscular Hemoglobin 31.2 pg (27-33); Mean Corpuscular Volume 97.3 fl (82-101); Nucleated Red Blood Cells % 0 %; Platelet Count 171 10^3/cmm (157-399); Red Blood Count 3.37 10^6/uL (3.85-5.65); White Blood Count 6.42 10^3/uL (3.29-11.43)
[2024-11-02] MEDS: pantoprazole 40 mg SDV IVP ×2 (06:26→17:56)
[2024-11-02 06:36] LABS: Magnesium 1.6 mg/dL (1.7-2.3)
[2024-11-02 06:43] LABS: Alanine Aminotransferase 11 U/L (0-41); Albumin Level 3.4 g/dL (3.5-5.2); Alkaline Phosphatase 55 U/L (40-130); Anion Gap 15.8 (5-19); Aspartate Amino Transferase 12 U/L (0-40); Blood Urea Nitrogen 10 mg/dL (8-23); Calcium 8.4 mg/dL (8.5-10.5); Carbon Dioxide 28 mmol/L (22-29); Chloride 101 mmol/L (98-107); Creatinine Clr Calc Pharmacy 83.6133; Globulin 2.4 g/dL (1.3-4.6); Glucose 91 mg/dL (65-115); Osmolality Calculated 293 mOsm/kg (285-295); Sodium 142 mmol/L (136-145); Total Protein 5.8 g/dL (6.6-8.7)
[2024-11-02 07:02] LABS: Potassium 2.8 mmol/L (3.5-5.1)
[2024-11-02] MEDS: mupirocin oint 22 gm 1 APPLIC TOPICAL (08:48)
--- NOTE | 2024-11-02 11:24 | P.PN_ITS ---
Subjective 2 Subjective: Tolerating p.o. Distended but benign abdomen Passing gas Vitals/I&O/Wt Last Vital Signs Temp 97.9 F 11/02/24 11:17 Pulse 76 11/02/24 11:17 Resp 18 11/02/24 11:17 BP 145/74 11/02/24 11:17 Pulse Ox 96 11/02/24 11:17 O2 Del Method Nasal Cannula 11/02/24 11:17 O2 Flow Rate 3 11/02/24 07:30 11/01/24 11/02/24 11/02/24 22:59 06:59 14:59 Intake Total 990 / 1400 350 / 1750 530 / 530 Output Total 150 / 150 510 / 660 Balance 840 / 1250 -160 / 1090 530 / 530 Weight last 48 hrs Weight 256 lb 4.8 oz Weight 264 lb Physical Exam 2 Narrative: Chest: Unlabored breathing room air. No lymphadenopathy. Heart: Regular rate and rhythm. Abdomen: Soft, nontender, distended Data 11/02/24 05:56 11/02/24 05:56 Micro: Microbiology 11/02/24 09:50 Stool Lactoferrin - Final Stool Occult Blood (FIT) - Final A&P Assessment and plan 1. Colon distention: Plan: 78-year-old male with colonic ileus. Tolerating p.o. and passing gas. Needs GI evaluation as outpatient. Rest of care per hospitalist. PDMP PDMP Reviewed: Not Reviewed Attestations 2 Medical Necessity Statement*: N/A Coding Level of Care Code 17091 Diagnoses Colon distention K63.89
[2024-11-02 11:53] LABS: C.Diff PCR (Lab) POSITIVE (Negative)
[2024-11-02 11:54] LABS: Clostridioides Difficile Toxin NEGATIVE (Negative)
--- NOTE | 2024-11-02 22:42 | P.PN_ITS ---
Subjective 2 Subjective: Patient reports he had an episode of dizziness last evening when he attempted to get out of bed and sit in the chair. He remained dizzy throughout the evening however felt better after waking up in the morning. He was able to ambulate the hallways today. Still feels a little dizzy but better than before. he tested positive for C diff today Medications: Reviewed: Yes Vitals/I&O/Wt Last Vital Signs Temp 98.2 F 11/02/24 19:35 Pulse 66 11/02/24 19:35 Resp 17 11/02/24 19:35 BP 112/78 11/02/24 19:35 Pulse Ox 95 11/02/24 19:35 O2 Del Method Room Air 11/02/24 19:35 O2 Flow Rate 4 11/02/24 11:30 11/02/24 11/02/24 11/02/24 06:59 14:59 22:59 Intake Total 350 / 1750 770 / 770 410 / 1180 Output Total 510 / 660 Balance -160 / 1090 770 / 770 410 / 1180 Weight last 48 hrs Weight 116.256 kg Weight 119.748 kg Physical Exam 2 Narrative: General: No acute distress, AO x3 HEENT: PERRLA, pupils bilaterally equal and reactive, pallors not present Chest: scattered wheezing to auscultation B/L CVS: S1-S2 regular, no murmurs, no tachycardia, no gallops, no rubs Abdomen: Soft, distended, no organomegaly, bowel sounds faint Neuro: No focal deficits, no facial deformity, AO x3, power 5/5 in all limbs Data 11/02/24 05:56 11/02/24 05:56 Micro: Microbiology 10/28/24 19:12 Blood Culture - Final Blood NO GROWTH AFTER 5 DAYS 10/28/24 19:23 Blood Culture - Final Blood NO GROWTH AFTER 5 DAYS 11/02/24 09:50 Stool Lactoferrin - Final Stool Occult Blood (FIT) - Final A&P Assessment and plan 1. Opioid-induced constipation: 2. Colon distention: 3. Dizziness: 4. Dehydration: Plan: Opioid-induced constipation -With colon distention -With stercoral colitis Stomach and bowel: There is marked distension of the ascending and transverse colon. The greatest transverse measurement of the transverse colon is 9 cm unchanged compared to the prior exam. The cecum and ascending colon is very distended with stool and air with a greatest transverse measurement of 9 cm. There is less significant of the descending colon with gradual transition to normal caliber/collapsed sigmoid colon and rectum. No abrupt transition zone or obstruction. Previously, there was a focal area of narrowing of the descending colon concerning for stricture which is unremarkable on this exam. No dilated loops of small bowel. There is no pneumatosis. The fundus of the stomach is mildly distended with food/secretions but otherwise unremarkable. There is wall thickening of the cecum and ascending colon concerning for stercoral colitis. Plan - Clear liquid - IV fluids - Zofran for nausea - Has received lactulose in the emergency room - 1 dose of Relistor yesterday, with soapsuds enema, another dose of Relistor today,mineral oil enema - Serial abdominal exams - General Surgery consulted - Full code - Lovenox for DVT prophylaxis Dizziness - CT head no acute findings - IV fluids - telemetry monitoring - Cardiac echo - Carotid artery ultrasound - Aspirin, statin History of atrial fibrillation - Hold Eliquis - Switch to therapeutic Lovenox given colon distention as above Hypertension - Continue home blood pressure medications Hypothyroidism - TSH improving to 9.5 History of squamous cell carcinoma - Has erythema, swelling, tenderness around right temporal - With purulent drainage - Will place on doxycycline and Augmentin Generalized weakness, fatigue - History of squamous cell carcinoma immunotherapy October 30, 2024 78-year-old male currently admitted to the hospital with opiate induced constipation with stercoral colitis. Currently on oral Augmentin and doxycycline. Will discontinue these medications and start IV piperacillin/tazobactam. He is passing minimal gas at this present time. States he is feeling nauseous. Zofran seems to be helping very little. He has received a dose of Relistor x 2. Discussed case with general surgery, recommended to continue antibiotics and also enema and trial of GoLytely today. These have been ordered. Change dressing over the right temporal region, mupirocin application and changes after Optifoam daily. He is currently on a clear liquid diet. Clinically appearing to be hypervolemic with crackles on exam bilaterally. Lasix 40 mg IV today. Closely monitor renal function with this change. He is off of IV fluids at this time. October 31, 2024 Patient had several bowel movements after GoLytely yesterday. Does not wish to take any further GoLytely at this time. Will continue with maintenance lactulose and milligram twice daily every day to minimize risk of getting constipated again. Right temporal region without any active pus drainage. Swelling is improving. Advance diet today to GI soft and assess for tolerability. No nausea or vomiting today. Rales to auscultation bilaterally hours today, as this is lower extremity edema. This is related to acute on chronic diastolic CHF exacerbation related to holding diuretics. Echocardiogram currently shows normal LV and RV size with systolic function of 55%. Will start Bumex 2 mg IV every 12 hours. Patient typically takes 2 mg p.o. Bumex twice daily at home. Closely monitor kidney function and urine output. Replete hypokalemia. Encourage out of bed today. November 01, 2024 Patient continues to have bowel movements. Denies any abdominal pain. No nausea vomiting. Tolerated advancing diet to GI soft. Continues to have significant lower extremity edema. Was short of breath with activity today. Still net +1600 cc. Additional dose of Bumex 2 mg IV today in addition to 2 mg IV every 12 hours scheduled doses as he is currently getting. Potassium noted to be at 3.0. Repleted with 80 mEq p.o. Will repeat CMP this afternoon with ongoing diuresis. Once clinically euvolemic, patient will be optimized for discharge. November 02, 2024: Developed soft BM today. lactulose reduced to once daily. Crackles imporved B/L, Le edema persisting but improved. Additional dose of lasix yesterday brittneyley resulted in orthostatic hypotension given his episode of dizziness yesterday. Orthostatics are N/A from the event. C diff PC ordered at admission was completed last nigght and was reported positive. C diff toxin negative, Unlikely to be acute C diff infection, more likely colonization, however with ongoing broad spectrum abx treatment, high risk of developing CDI. Will start Dificid 200mg BID. This is first time diagnosis for the patient. Change iv Bumex to po Bumex today. Recheck creatinine and urine output over next 24 hrs. hypokalemia repleted. PDMP PDMP Reviewed: Not Reviewed Attestations 2 Medical Necessity Statement*: tranisition iv to po Bumex, add dificid. Coding Level of Care Code Acute Code for Chg Fwd High MDM includes number and complexity of problems actively addressed during encounter, amount and/or complexity of data reviewed/ordered and described risk of complication, morbidity or mortality of management as documented Diagnoses Opioid-induced constipation K59.03; T40.2X5A Colon distention K63.89 Dizziness R42 Dehydration E86.0
[2024-11-03] VITALS: BP 163/84; PULSE 83; RESP 17; TEMP 36.8; O2SAT 94
[2024-11-03 02:30] VITALS: PULSE 70; RESP 16; O2SAT 95
[2024-11-03] MEDS: piperacillin-tazobactam 3.375 GM in sodium chloride 0.9% (plus) 50 ML IV (05:25)
[2024-11-03 05:34] VITALS: BP 135/67; PULSE 67; RESP 16; TEMP 36.6; O2SAT 94
[2024-11-03 05:40] LABS: Hematocrit 30.7 % (37-53); Hemoglobin 9.70 g/dL (11.27-16.99); Mean Corpuscular HGB Conc 31.6 g/dL (30-55); Mean Corpuscular Hemoglobin 31.6 pg (27-33); Mean Corpuscular Volume 100.0 fl (82-101); Nucleated Red Blood Cells % 0 %; Platelet Count 138 10^3/cmm (157-399); Red Blood Count 3.07 10^6/uL (3.85-5.65); White Blood Count 5.49 10^3/uL (3.29-11.43)
[2024-11-03 06:10] LABS: Alanine Aminotransferase 11 U/L (0-41); Albumin Level 3.1 g/dL (3.5-5.2); Alkaline Phosphatase 46 U/L (40-130); Anion Gap 12.8 (5-19); Aspartate Amino Transferase 11 U/L (0-40); Blood Urea Nitrogen 9 mg/dL (8-23); Calcium 8.0 mg/dL (8.5-10.5); Carbon Dioxide 29 mmol/L (22-29); Chloride 103 mmol/L (98-107); Creatinine Clr Calc Pharmacy 83.5630; Globulin 2.0 g/dL (1.3-4.6); Glucose 87 mg/dL (65-115); Osmolality Calculated 292 mOsm/kg (285-295); Sodium 142 mmol/L (136-145); Total Protein 5.1 g/dL (6.6-8.7)
[2024-11-03] MEDS: pantoprazole 40 mg SDV IVP (06:21)
[2024-11-03 06:42] LABS: Potassium 2.8 mmol/L (3.5-5.1)
[2024-11-03 07:37] VITALS: BP 160/77; PULSE 81; RESP 24; TEMP 36.6; O2SAT 94
[2024-11-03 07:58] VITALS: PULSE 68; RESP 16; O2SAT 95
[2024-11-03] MEDS: mupirocin oint 22 gm 1 APPLIC TOPICAL (08:30)
[2024-11-03] MEDS: lactulose oral liq 20 gm/30 mL UDC 10 GM PO (08:30)
[2024-11-03] MEDS: potassium chloride oral liq 20 mEq/15 mL UDC 40 MEQ PO (10:27)
[2024-11-03 11:32] VITALS: BP 130/76; PULSE 64; RESP 18; TEMP 36.3; O2SAT 94
[2024-11-03 12:26] LABS: Potassium 3.7 mmol/L (3.5-5.1)
--- NOTE | 2024-11-03 16:16 | P.DS_ITS ---
Discharge Providers Date of Admission: 10/28/24 19:19 Date of Discharge: November 03, 2024 Attending Provider at Admission: Skye Sarkar MD Attending Provider at Discharge: Mary Rios MD Primary Care Provider: Marsha Turner MD Diagnoses at Discharge Discharge Diagnosis 1. Opioid-induced constipation: 2. Colon distention: 3. Dizziness: 4. 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 He was found to have marked distension of the ascending and transverse colon. The cecum and ascending colon was very distended with stool and air with a greatest transverse measurement of 9 cm.No abrupt transition zone or obstruction. There is wall thickening of the cecum and ascending colon concerning for stercoral colitis. He received treatment with laxatives, enemas and Relistor and improved. He was able to pass stools and flatus easily the past 3 days. Stool tested positive for C. difficile PCR, negative toxin. Favored to be colonization. Patient did not have any moreno diarrhea. However decision was made to treat with Dificid 200 mg p.o. twice daily for 10 days prophylactically as he has recently received piperacillin/tazobactam for the stercoral colitis. Hospital course was also complicated by acute on chronic diastolic CHF exacerbation likely due to holding diuretics initially on admission due to dehydration. He was treated with IV Bumex and he responded well to the treatment. His tachypnea improved, he is able to ambulate within the hallway, oxygen requirement is back at baseline of 2 L/min. He is being discharged today on his home dose of oral Bumex 2 mg twice daily. Patient additionally has a history of squamous cell carcinoma over the right temporal region. He was found to have some purulent drainage at the site. He received treatment initially with Augmentin and doxycycline and then IV piperacillin/tazobactam. Local mupirocin application with Optifoam has been recommended at home. Patient to follow-up with PCP within the next 7 to 10 days to ensure continued improvement. Physical Exam Narrative: General: No acute distress, AO x3 HEENT: PERRLA, pupils bilaterally equal and reactive, pallors not present Chest: Normal vesicular breath sounds, no added sounds, equal good air entry bilaterally CVS: S1-S2 regular, no murmurs, no tachycardia, no gallops, no rubs Abdomen: Soft, nontender, no organomegaly, bowel sounds present Neuro: No focal deficits, no facial deformity, AO x3, power 5/5 in all limbs Discharge Data Studies Completed and Pending Completed Studies During Hospitalization Category Date Time Status CT abdomen pelvis w con* [id number] Stat Cat Scan 10/28/24 11:[address] head wo con* [id number] Stat Cat Scan 10/28/24 11:06 Completed XR abdomen 1V* [id number] Routine Exams 10/30/24 16:23 Completed XR chest 1V [id number] Stat Exams 10/28/24 11:04 Completed CV carotid duplex BI* [id number] Stat Ultrasound 10/29/24 18:06 Completed CV. echo limited [id number] Stat Ultrasound 10/29/24 18:06 Completed Pending at discharge Category Date Time Status OVA and Parasites, Conc and PE Routine Lab 10/28/24 19:11 Received Salmonella / Shigella / Campy Routine Lab 10/28/24 19:11 Received Radiology Impressions Chest X-Ray 10/28/24 11:04 IMPRESSION: No active pulmonary disease. Head CT 10/28/24 11:06 IMPRESSION: 1. No acute intracranial finding. 2. Fluid in the left mastoid air cells. 3. Right scalp 1.1 x 1.9 cm soft tissue density lesion, unchanged. 4. Cerebral atrophy. 5. Likely mild small-vessel ischemic changes. Abdomen/Pelvis CT 10/28/24 11:07 IMPRESSION: 1. Very large amount of stool in the cecum and ascending colon.There is wall thickening of the cecum and ascending colon concerning for stercoral colitis. Unchanged small volume of fluid in the pelvis. No abscess. No pneumatosis or free air. 2. Unchanged distension of the transverse colon. Gradual caliber change to collapsed sigmoid colon and rectum. No bowel obstruction. This appearance suggests possible institutional bowel/dysmotility given the unchanged appearance on prior exam. Possible narrowing or stricture on the prior study is unremarkable on this exam. COMMENTS: Consistent with the [place] [employer]'s Incidental Findings Committee white paper (J Am Juli Radiol 2018): Any incidental renal lesion less than 1 cm or classified as too small to characterize, or any incidental cystic renal lesion characterized as simple-appearing, is likely benign. No follow-up imaging is recommended for these lesions per consensus recommendations based on imaging criteria. Carotid Doppler Study 10/29/24 18:06 IMPRESSION: No significant carotid arterial stenosis. REFERENCES: SRU CRITERIA. The degree of internal carotid artery stenosis is based on criteria defined by the Society of Radiologists in Ultrasound (SRU). Normal is no stenosis. Mild is less than 50% stenosis. Moderate is 50-69% stenosis. Severe is greater than 69% stenosis to near occlusion. Near occlusion is a markedly narrowed lumen. Total occlusion is no detectable patent lumen. Reference: Larry Hines, et al. Carotid Artery Stenosis: Doe-Scale and Doppler US Diagnosis-Society of Radiologists in Ultrasound Consensus Conference. Radiology 2003; 229:340-346. Abdomen X-Ray 10/30/24 16:23 IMPRESSION: Colonic distension appears similar to recent CT 10/28/2024. Suggestion of decreased stool content in the right colon otherwise. Laboratory Results WBC 5.49 10^3/uL (3.29-11.43) 11/03/24 05:27 RBC 3.07 10^6/uL (3.85-5.65) L 11/03/24 05:27 Hgb 9.70 g/dL (11.27-16.99) L 11/03/24 05:27 Hct 30.7 % (37-53) L 11/03/24 05:27 MCV 100.0 fl (82-101) 11/03/24 05:27 MCH 31.6 pg (27-33) 11/03/24 05:27 MCHC 31.6 g/dL (30-55) 11/03/24 05:27 RDW 15.7 % (12.1-15.1) H 11/03/24 05:27 Plt Count 138 10^3/cmm (157-399) L 11/03/24 05:27 MPV 9.0 fL (7.4-10.4) 11/03/24 05:27 Neut % (Auto) 77.0 % 11/03/24 05:27 Lymph % (Auto) 11.5 % 11/03/24 05:27 Glenn % (Auto) 10.0 % 11/03/24 05:27 Eos % (Auto) 0.5 % 11/03/24 05:27 Baso % (Auto) 0.5 % 11/03/24 05:27 Neut # (Auto) 4.22 10^3/uL (1.8-7.7) 11/03/24 05:27 Lymph # (Auto) 0.6 10^3/uL (0.8-4.8) L 11/03/24 05:27 Glenn # (Auto) 0.6 10^3/uL (0.2-0.9) 11/03/24 05:27 Eos # (Auto) 0.0 10^3/uL (0.0-0.8) 11/03/24 05:27 Baso # (Auto) 0.0 10^3/uL (0.0-0.1) 11/03/24 05:27 Nucleated RBC % (auto) 0 % 11/03/24 05:27 Nucleated RBCs # 0.0 /100WBC 11/03/24 05:27 PT 14.60 SECONDS (12.1-14.9) 10/28/24 20:18 INR 1.07 (0.8-1.2) 10/28/24 20:18 Sodium 142 mmol/L (136-145) 11/03/24 05:27 Potassium 3.7 mmol/L (3.5-5.1) 11/03/24 12:00 Chloride 103 mmol/L (98-107) 11/03/24 05:27 Carbon Dioxide 29 mmol/L (22-29) 11/03/24 05:27 Anion Gap 12.8 (5-19) 11/03/24 05:27 BUN 9 mg/dL (8-23) 11/03/24 05:27 Creatinine 0.9 mg/dL (0.7-1.2) 11/03/24 05:27 GFR Calculation Not Reportable 11/03/24 05:27 Glucose 87 mg/dL (65-115) 11/03/24 05:27 Calculated Osmolality 292 mOsm/kg (285-295) 11/03/24 05:27 Lactic Acid 1.4 mmol/L (0.5-2.2) 10/28/24 11:00 Calcium 8.0 mg/dL (8.5-10.5) L 11/03/24 05:27 Phosphorus 3.0 mg/dL (2.5-4.5) 10/31/24 04:53 Magnesium 1.6 mg/dL (1.7-2.3) L 11/02/24 05:56 Total Bilirubin 0.4 mg/dL (0.15-1.2) 11/03/24 05:27 AST 11 U/L (0-40) 11/03/24 05:27 ALT 11 U/L (0-41) 11/03/24 05:27 Alkaline Phosphatase 46 U/L (40-130) 11/03/24 05:27 C-Reactive Protein 3.0 mg/L (0.0-4.9) 10/28/24 11:00 NT-Pro-B Natriuret Pep 335 pg/mL (0-450) 10/28/24 11:00 Total Protein 5.1 g/dL (6.6-8.7) L 11/03/24 05:27 Albumin 3.1 g/dL (3.5-5.2) L 11/03/24 05:27 Globulin 2.0 g/dL (1.3-4.6) 11/03/24 05:27 Lipase 12 U/L (13-60) L 10/28/24 11:00 Procalcitonin 0.03 ng/mL (0-0.5) 10/28/24 11:00 TSH 9.55 uIU/mL (0.27-4.20) H 10/28/24 11:00 Urine Color Dark yellow (Yellow) A 10/29/24 10:30 Urine Appearance Clear (CLEAR) 10/29/24 10:30 Urine pH 5.0 (5-7) 10/29/24 10:30 Ur Specific [place] 1.049 (1.005-1.030) H 10/29/24 10:30 Urine Protein 1+ (Negative) A 10/29/24 10:30 Urine Glucose (UA) Negative (Normal) 10/29/24 10:30 Urine Ketones Trace (Negative) 10/29/24 10:30 Urine Blood Negative (Negative) 10/29/24 10:30 Urine Nitrate Negative (Negative) 10/29/24 10:30 Urine Bilirubin Negative (Negative) 10/29/24 10:30 Urine Urobilinogen 1.0 mg/dL (Negative) 10/29/24 10:30 Ur Leukocyte Esterase Negative (Negative) 10/29/24 10:30 Urine RBC 0-4 /hpf (0-2) H 10/29/24 10:30 Urine WBC 0-4 /hpf (0-5) H 10/29/24 10:30 Ur Squamous Epith Cells 0-4 /hpf (0-5) H 10/29/24 10:30 Amorphous Sediment Not Reportable 10/29/24 10:30 Urine Bacteria Trace /hpf (NONE) 10/29/24 10:30 Hyaline Casts 0-4 /lpf H 10/29/24 10:30 Urine Mucus 3+ /hpf 10/29/24 10:30 C. difficile (PCR) Positive (Negative) H 11/02/24 09:50 C.difficile Tox Confrm Negative (Negative) 11/02/24 09:50 Vitals Last Vital Signs Temp 97.3 F L 11/03/24 11:32 Pulse 64 11/03/24 11:32 Resp 18 11/03/24 11:32 BP 130/76 11/03/24 11:32 Pulse Ox 94 11/03/24 11:32 O2 Del Method Nasal Cannula 11/03/24 11:32 O2 Flow Rate 3 11/03/24 08:00 Discharge Plan Discharge Patient Disposition: Home Condition: Stable Prescriptions: New lactulose 10 gram/15 mL solution 20 g PO DAILY PRN (Reason: constipation) Qty: 473 0RF meclizine 25 mg tablet 25 mg PO TID PRN (Reason: dizziness) Qty: 20 0RF mupirocin 2 % Ointment 1 applic topical DAILY 30 Days Qty: 1 0RF fidaxomicin [Dificid] 200 mg Tablet 200 mg PO Q12H 9 Days Qty: 18 0RF Continued olanzapine [Zyprexa] 2.5 mg tablet 2.5 mg PO DAILY Qty: 60 1RF Rx Instructions: 1-2 tablets at hs for appetite and mood oxybutynin chloride 5 mg tablet extended release 24hr 5 mg PO DAILY omeprazole 40 mg capsule,delayed release(DR/EC) 40 mg PO QAM Qty: 90 1RF prednisone 10 mg tablet 10 mg PO DAILY Qty: 90 1RF potassium chloride 10 mEq tablet extended release 20 meq PO BID PRN (Reason: while on Bumetanide) prochlorperazine maleate [Compazine] 10 mg tablet 10 mg PO Q6H PRN (Reason: nausea and vomiting) Qty: 30 6RF ondansetron HCl 4 mg tablet 8 mg PO Q8H PRN (Reason: nausea and vomiting) Qty: 90 3RF atorvastatin 40 mg tablet 40 mg PO BEDTIME Qty: 90 3RF isosorbide mononitrate 30 mg tablet extended release 24 hr 60 mg PO BEDTIME Qty: 180 2RF acetaminophen 500 mg capsule 1,000 mg PO TID PRN (Reason: Pain) Eliquis 5 mg Tablet 5 mg PO BID@0900,2100 Qty: 60 2RF levothyroxine [Synthroid] 150 mcg tablet 150 mcg PO DAILY pregabalin 25 mg capsule 25 mg PO BID lidocaine-prilocaine 2.5-2.5 % cream 1 applic topical PRN PRN (Reason: port access) Rx Instructions: Apply a quarter size amount to port and cover with saran wrap 30 minutes prio r to access. lorazepam 0.5 mg tablet 0.25 - 0.5 mg PO TID MDD 6 mg PRN (Reason: nausea and vomiting) Rx Instructions: may titrate to 2 mg dosing if needed for relief. nitroglycerin [Nitrostat] 0.4 mg Tablet, Sublingual 0.4 mg SUBLINGUAL Q5M PRN (Reason: Chest Pain) Rx Instructions: do not exceed 3 doses per episode amiodarone [Pacerone] 200 mg Tablet 200 mg PO DAILY Qty: 30 0RF liothyronine 5 mcg tablet 5 mcg PO BID hydralazine 50 mg tablet 50 mg PO TID sennosides-docusate sodium [Stool Softener-Laxative] 8.6-50 mg tablet 1 tab PO DAILY PRN (Reason: Constipation) polyethylene glycol 3350 [Miralax] 17 gram powder in packet 17 g PO DAILY PRN (Reason: constipation) Qty: 14 0RF Changed carvedilol 12.5 mg tablet 6.25 mg PO DAILY 30 Days Qty: 0 0RF bumetanide 2 mg tablet 2 mg PO BID 30 Days Qty: 60 0RF No Action (DME) MARK BRACE See Rx Instructions .Route .MEDSUPPLY Qty: 1 0RF Rx Instructions: As directed (DME) Modification to AFO Brace to the left See Rx Instructions .Route .MEDSUPPLY Qty: 1 0RF Rx Instructions: As directed by [facility] and [place] Discharge Order = DC NOW: Discharge Order (Routine); Ordered 11/03/24 Ordered By: Mary Rios Other Ambulatory Orders: DME: Oxygen (Order) Location: None Selected Ordered By: Mary Rios Referrals: Marsha Turner MD [Primary Care Provider, Internal Medicine] - 11/09/24 10:00 am Referral Note: appointment with RAVINDRA Patient Instructions: Mupirocin (On the skin) (Bactroban, Centany, Centany AT, Dermawerx..., Fidaxomicin (By mouth), C. Diff (Clostridioides Difficile) Infection (DC), Opioid Safety, Pain Management, Patient Portal & [facility] Instructions Activity Restrictions/Additional Instructions: Make sure to drink plenty of fluids. Take the lactulose as directed until soft stools. Take your normal medications as prescribed. Monitor your blood pressure and recheck with your doctor. Please come back if weakness on 1 side, new or worsening weakness, worsening dizziness, ear pain, fever, vomiting, difficulty breathing, any worse or concerns. Please follow-up on your test re sults with your doctor. Recheck with your doctor in 2 to 3 days. Fall precautions. Do not walk without using walker or other clinical trials assistant device Discharge Attestations Time Spent in Discharge Care*: greater than 30 min Quality Metrics Clinical Quality Measures [ No reported AMI, CVA or VTE this stay] Coding Level of Care Code Acute Code for Chg Fwd Diagnoses Opioid-induced constipation K59.03; T40.2X5A Colon distention K63.89 Dizziness R42 Dehydration E86.0
== END 2024-11-03 13:40 | disposition home or self-care (01) | DRG 391 ==
LOC: ER 18:35 → MEDSURG 18:45
PROVIDERS: Family Medicine; Admitting Provider Internal Medicine; Emergency Provider Emergency Medicine; PCP Internal Medicine; Visit Provider Student in an Organized Health Care Education/Training Program
DX: K59.03 Drug induced constipation (principal); I50.33 Acute on chronic diastolic (congestive) heart failure; T40.2X5A Adverse effect of other opioids, initial encounter; K63.89 Other specified diseases of intestine; R42 Dizziness and giddiness; E86.0 Dehydration; C44.329 Squamous cell carcinoma of skin of other parts of face; D50.9 Iron deficiency anemia, unspecified; M06.9 Rheumatoid arthritis, unspecified; I11.0 Hypertensive heart disease with heart failure; E78.5 Hyperlipidemia, unspecified; I25.10 Atherosclerotic heart disease of native coronary artery without angina pectoris; I48.91 Unspecified atrial fibrillation; G47.33 Obstructive sleep apnea (adult) (pediatric); M51.369 Other intervertebral disc degeneration, lumbar region without mention of lumbar back pain or lower extremity pain; G89.29 Other chronic pain; I73.9 Peripheral vascular disease, unspecified; I71.40 Abdominal aortic aneurysm, without rupture, unspecified; E03.9 Hypothyroidism, unspecified; B96.89 Other specified bacterial agents as the cause of diseases classified elsewhere; J44.9 Chronic obstructive pulmonary disease, unspecified; Z79.899 Other long term (current) drug therapy; Z92.21 Personal history of antineoplastic chemotherapy; Z85.46 Personal history of malignant neoplasm of prostate; Z79.01 Long term (current) use of anticoagulants; Z99.81 Dependence on supplemental oxygen; Z98.1 Arthrodesis status; Z86.16 Personal history of COVID-19; Z86.73 Personal history of transient ischemic attack (TIA), and cerebral infarction without residual deficits; Z91.81 History of falling
CPT/HCPCS: 36415; 36591; 70450; 71045; 74018; 74177; 80053; 81001; 82274; 83605; 83630; 83690; 83735; 83880; 84100; 84132; 84145; 84443; 85025; 85610; 86140; 87040; 87045; 87177; 87209; 87324; 87427; 87449; 87493; 93005; 93306; 93308; 93880; 94640; 94664; 94760; 96372; 97116; 97161; 97167; 97530; 97535; 99285; G0378; J1650; J1938; J2212; J2405; J2470; J2543; J3490; J7040; J7120; J7512; J7611; J9999

== ENCOUNTER 2024-11-23 09:43 | Oncology outpatient (recurring) (ONCR) | payer MEDICARE, OTHER, SELFPAY ==
[2024-11-23 10:13] LABS: Hematocrit 37.4 % (37-53); Hemoglobin 12.00 g/dL (11.27-16.99); Mean Corpuscular HGB Conc 32.1 g/dL (30-55); Mean Corpuscular Hemoglobin 31.1 pg (27-33); Mean Corpuscular Volume 96.9 fl (82-101); Nucleated Red Blood Cells % 0 %; Platelet Count 186 10^3/cmm (157-399); Red Blood Count 3.86 10^6/uL (3.85-5.65); White Blood Count 7.72 10^3/uL (3.29-11.43)
[2024-11-23 10:52] LABS: Alanine Aminotransferase 10 U/L (0-41); Albumin Level 3.7 g/dL (3.5-5.2); Alkaline Phosphatase 59 U/L (40-130); Anion Gap 12.8 (5-19); Aspartate Amino Transferase 14 U/L (0-40); Blood Urea Nitrogen 11 mg/dL (8-23); Calcium 8.8 mg/dL (8.5-10.5); Carbon Dioxide 31 mmol/L (22-29); Chloride 102 mmol/L (98-107); Creatinine Clr Calc Pharmacy 83.5630; Globulin 2.7 g/dL (1.3-4.6); Glucose 117 mg/dL (65-115); Osmolality Calculated 296 mOsm/kg (285-295); Sodium 143 mmol/L (136-145); Thyroid Stimulating Hormone 5.50 uIU/mL (0.27-4.20); Total Protein 6.4 g/dL (6.6-8.7)
[2024-11-23 10:58] LABS: Potassium 2.8 mmol/L (3.5-5.1)
[2024-11-23] MEDS: sodium chlor 0.9% + KCl 40 mEq 40 MEQ/1,000 ML BAG 250 MEQ IV (11:59)
[2024-11-23] MEDS: cemiplimab-rwlc 350 MG in sodium chloride 0.9% 250 ML 500 MG IV (14:31)
[2024-11-23 15:41] VITALS: BP 145/78; PULSE 63; RESP 16; TEMP 36.6; O2SAT 93
== END 2024-11-23 23:59 | disposition home or self-care (01) ==
PROVIDERS: PCP Internal Medicine; Visit Provider Nurse Practitioner
DX: Z51.11 Encounter for antineoplastic chemotherapy (principal); C44.42 Squamous cell carcinoma of skin of scalp and neck; R94.6 Abnormal results of thyroid function studies; D64.9 Anemia, unspecified; E87.6 Hypokalemia; R11.0 Nausea; Z85.46 Personal history of malignant neoplasm of prostate; Z92.3 Personal history of irradiation; Z79.899 Other long term (current) drug therapy
CPT/HCPCS: 80053; 84443; 85025; 96413; 99213; A4222; J7050; J9119; J9999

== ENCOUNTER 2024-12-18 13:27 | Emergency (ER) | payer MEDICARE, OTHER, SELFPAY ==
[2024-12-18 13:35] VITALS: BP 112/68; PULSE 72; RESP 18; O2SAT 98
--- OUTSIDE RECORDS SUMMARY | 2024-12-18 13:35 | XMS_ITS | Encounter Summary ---
Author Organization [facility] Address [address] [place] [address] Care Team Providers Care Radiation Therapy Technician Name Role Phone Marsha Turner MD Primary Care Provider [phone]- [phone] Encounter Details Date Type Department Care Team (Latest Contact Info) Description 05/06/2005 Outpatient Historical [facility] [place] [address] [place] [address] [place] [id number] Abilio Bagley MD [address] [place] [phone] CHEST PAIN NOS (Primary Dx) Social History Tobacco Use Types Packs/Day Years Used Date Smoking Tobacco: Never Assessed Sex and Gender Information Value Date Recorded Sex Assigned at Not on file 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
--- OUTSIDE RECORDS SUMMARY | 2024-12-18 13:35 | XMS_ITS | Encounter Summary ---
Author Organization [facility] Address [address] 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
--- OUTSIDE RECORDS SUMMARY | 2024-12-18 13:35 | XMS_ITS | Encounter Summary ---
Author Organization [facility] Address [address] [place] [address] Care Team Providers Care Licensed Psychiatric Technician Name Role Phone Marsha Turner MD Primary Care Provider +1- [phone] Encounter Details Date Type Department Care Team (Latest Contact Info) Description 06/25/2006 Outpatient [facility] [place] [address] Abilio Bagley MD [address] [place] [phone] Abdominal Pain, Right Upper Quadrant (Primary Dx); Chronic Pancreatitis (CMS/HCC); Nonspecific Abnormal Results of Liver Function Study Social History Tobacco Use Types Packs/Day Years Used Date Smoking Tobacco: Never Assessed Sex and Gender Information Value Date Recorded Sex Assigned at Not on file 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
--- OUTSIDE RECORDS SUMMARY | 2024-12-18 13:35 | XMS_ITS | Encounter Summary ---
Author Organization [facility] Address [address] [place] [address] Care Team Providers Care Rubber Factory Worker Name Role Phone Marsha Turner MD Primary Care Provider +1- [phone] Encounter Details Date Type Department Care Team (Latest Contact Info) Description 12/16/2007 Outpatient Historical [facility] Dee Casillas MD [address] [address] Brachial Neuritis or Radiculitis NOS Social History Tobacco Use Types Packs/Day Years Used Date Smoking Tobacco: Never Assessed Sex and Gender Information Value Date Recorded Sex Assigned at Not on file 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
--- OUTSIDE RECORDS SUMMARY | 2024-12-18 13:35 | XMS_ITS | Encounter Summary ---
Author Organization [facility] Address [address] [place] [address] Care Team Providers Care Cell Tender Name Role Phone Marsha Turner MD Primary Care Provider +1- [phone] Encounter Details Date Type Department Care Team (Late st Contact Info) Description 01/02/2008 Outpatient Historical [facility] Dee Casillas MD [address] [phone] Social History Tobacco Use Types Packs/Day Years Used Date Smoking Tobacco: Never Assessed Sex and Gender Information Value Date Recorded Sex Assigned at Not on file 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
--- OUTSIDE RECORDS SUMMARY | 2024-12-18 13:35 | XMS_ITS | Encounter Summary ---
Author Organization [facility] Address [address] [place] [address] Care Team Providers Care Stem Cutter Name Role Phone Marsha Turner MD Primary Care Provider +1- [phone] Encounter Details Date Type Department Care Team (Late st Contact Info) Description 10/17/2007 Outpatient Historical [facility] PreAdmission [place] [address] [place] [address] Thomas Mack MD NO ADDRESS ON FILE Social History Tobacco Use Types Packs/Day Years Used Date Smoking Tobacco: Never Assessed Sex and Gender Information Value Date Recorded Sex Assigned at Not on file 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 Gender Identity Not on file Sexual Orientation Not on file documented as of this encounter Miscellaneous Notes * Scanned Form - Sgf Scanning, Test - 03/31/2010 7:35 AM FORENSIC SERGEANT documented in this encounter Plan of Treatment [...] 6:43 PM CDT) COLOR UA Yellow Straw [facility] PROTEIN UA NEGATIVE NEGATIVE [facility] BLOOD UA NEGATIVE NEGATIVE [facility] NITRITE UA NEGATIVE NEGATIVE [facility] UROBILINOGEN UA 0.2 0.2 [facility] CLARITY UA Clear Clear [facility] SPECIFIC GRAVITY UA 1.025 <=1.005 [facility] GLUCOSE UA NEGATIVE NEGATIVE [facility] PH UA 5.5 5.0 - 9.0 [facility] BILIRUBIN UA NEGATIVE NEGATIVE [facility] LEUKOCYTE ESTERASE UA NEGATIVE NEGATIVE [facility] KETONES UA NEGATIVE NEGATIVE [facility] MICRO EXAM No No [facility] Urine specimen (specimen) 10/17/2007 6:43 PM CDT 10/17/2007 6:43 PM CDT Thomas Mack MD URINE ORDERABLES Final Result Performing Organization Address [facility] de Phone Number [facility] CLIA# [id number] [address] [place] [address] * PSA MEDICARE SCREEN (10/17/2007 6:00 PM CDT) PSA 0.8 0.0 - 4.0 ng/mL [facility] Blood specimen (specimen) 10/17/2007 6:00 PM CDT 10/17/2007 6:05 PM CDT Thomas Mack MD CHEMISTRY ORDERABLES C OM Final Result Performing Organization Address [facility] de Phone Number [facility] CLIA# [id number] [address] [place] [address] * (ABNORMAL) CBC WITH DIFFERENTIAL (10/17/2007 6:00 PM CDT) MONOCYTES 8.9 2.0 - 10.0 % [facility] RDW 13.8 11.0 - 14.5 % [facility] MONOCYTE ABSOLUTE 0.5 0.1 - 0.6 K/ul [facility] WBC 5.3 4.8 - 10.8 K/ul [facility] NEUTROPHILS 72.9 42.2 - 75.2 % [facility] MCH 29.6 27.0 - 34.0 pg [facility] NEUTROPHIL ABSOLUTE 3.9 2.0 - 8.0 K/ul [facility] HEMATOCRIT 38.6(L) 41.0 - 53.0 % [facility] PLATELETS 190 140 - 440 K/ul [facility] EOSINOPHIL ABSOLUTE 0.1 0.0 - 0.7 K/ul [facility] EOSINOPHILS 1.5 0.0 - 7.0 % [facility] RBC 4.29(L) 4.60 - 6.20 Mil/ul [facility] MCHC 32.9 30.0 - 35.0 g/dL [facility] LYMPHOCYTE ABSOLUTE 0.8(L) 1.2 - 4.0 K/ul [facility] LYMPHOCYTES 15.8(L) 24.0 - 44.0 % [facility] MCV 90.0 84.0 - 103.0 Fl [facility] BASOPHILS 0.9 0.0 - 1.0 % [facility] MPV 9.6 8.9 - 12.8 Fl [facility] BASOPHILS ABSOLUTE 0.1 0.0 - 0.2 K/ul [facility] HEMOGLOBIN 12.7(L) 14.0 - 18.0 g/dL [facility] Blood specimen (specimen) 10/17/2007 6:00 PM CDT 10/17/2007 6:05 PM CDT Thomas Mack MD HEMATOLOGY ORDERABLES Final Result Performing Organization Address [facility] de Phone Number [facility] CLIA# [id number] [address] [place] [address] * ANTIBODY SCREEN (10/17/2007 6:00 PM CDT) [facility] Signature ANTIBODY SCREEN Negative [facility] Blood specimen (specimen) 10/17/2007 6:00 PM CDT 10/17/2007 6:05 PM CDT Thomas Mack MD BLOOD BANK ORDERABLES Final Result Performing Organization Address [facility] de Phone Number [facility] CLIA# [id number] [address] [place] [address] * ABORH TYPING (10/17/2007 6:00 PM CDT) ABO/RH TYPE A Positive [facility] Blood specimen (specimen) 10/17/2007 6:00 PM CDT 10/17/2007 6:05 PM CDT Thomas Mack MD BLOOD BANK ORDERABLES Final Result Performing Organization Address [facility] de Phone Number [facility] CLIA# [id number] [address] [place] [address] * PTT (10/17/2007 6:00 PM CDT) PTT 31.3 22.5 - 36.5 Secs [facility] Comment: Therapeutic Range: Hi-level PE/DVT [...] HEMATOLOGY ORDERABLES Final Result Performing Organization Address [facility] de Phone Number [facility] CLIA# [id number] [address] [place] [address] * PROTIME-INR (10/17/2007 6:00 PM CDT) PROTIME 13.6 12.8 - 15.8 Secs [facility] Comment:As of 2007 not e change in normal range. INR 0.9 [facility] Comment: Expected Values for INR: DVT/PE Goal INR 2.5; range 2.0 - 3.0 Valve Replacement Tissue Goal INR 2.5; range 2.0 - 3.0 Mechanical Goal INR 3.0; range 2.5 - 3.5 POST-MT Goal INR 2.5; range 2.0 - 3.0 or Goal 3.0; range 2.5 - 3.5 Atrial Fibrillation Goal INR 2.5; range 2.0 - 3.0 Ischemic Stroke Goal INR 2.5; range 2.0 - 3.0 For additional information see Guidelines for Anticoagulation available from the pharmacy Nichelle Mike [phone] Blood specimen (specimen) 10/17/2007 6:00 PM CDT 10/17/2007 6:05 PM CDT us Thomas Mack MD HEMATOLOGY ORDERABLES Final Result [facility] CLIA# [id number] [address] [place] [address] * COMPREHENSIVE METABOLIC PANEL (10/17/2007 6:00 PM CDT) CREATININE 1.0 0.7 - 1.5 mg/dL [facility] ALT 32 4 - 36 IU/L [facility] CALCIUM 10.0 8.4 - 10.5 mg/dL [facility] OSMOLALITY, CALCULATED 287 275 - 295 mOsm/Kg [facility] GLUCOSE 108 70 - 110 mg/dL [facility] ALKALINE PHOSPHATASE 67 25 - 100 U/L [facility] CHLORIDE 108 95 - 110 mEq/L [facility] ALBUMIN/GLOBULIN RATIO 1.5 1.0 - 2.3 [facility] TOTAL PROTEIN 7.5 6.3 - 8.2 g/dL [facility] SODIUM 139 136 - 145 mEq/L [facility] BILIRUBIN TOTAL 0.4 0.3 - 1.2 mg/dL [facility] BUN 16 9 - 20 mg/dL [facility] CO2 26 22 - 32 mmol/l [facility] ANION GAP 9 9 - 20 mEq/L [facility] AST 27 8 - 33 U/L [facility] POTASSIUM 3.7 3.5 - 5.0 mEq/L [facility] GLOBULIN (CALC) 3.0 2.4 - 3.9 g/dL [facility] ALBUMIN 4.5 3.5 - 5.0 g/dL [facility] Blood specimen (specimen) 10/17/2007 6:00 PM CDT 10/17/2007 6:05 PM CDT us Thomas Mack MD CHEMISTRY ORDERABLES F inal Result [facility] CLIA# [id number] [address] [place] [address] documented in this encounter Visit Diagnoses Not on filedocumented in this encounter Care Teams Stem Cutter Relationship Specialty Start Date End Date Marsha Turner MD [address] [place], [place] [address] PCP - General Internal Medicine 05/31/12 documented as of this encounter
--- OUTSIDE RECORDS SUMMARY | 2024-12-18 13:35 | XMS_ITS | Encounter Summary ---
Author Organization [facility] Address [address] [place] [address] Care Team Providers Care Video Systems Engineer Name Role Phone Marsha Turner MD Primary Care Provider +1- [phone] Reason for Referral * Outpatient Services (Routine) - Closed Specialty Diagnoses / Procedures Referred By Te caceres Referred To Contact Diagnoses Disorders of sacrum Procedures XR FLUORO NEEDLE GUIDANCE Kamar Leach MD Referral ID Status Reason Start Date Expiration Date Visits Re quested Visits Authorized [id number] Closed 06/11/2014 07/12/2015 1 1 Encounter Details Date Type Department Care Team (Late st Contact Info) Description 06/11/2014 Ancillary Orders [facility] Pain Management Procedures [place] [address] [place] [address] Kamar Leach [...] on file 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
--- OUTSIDE RECORDS SUMMARY | 2024-12-18 13:35 | XMS_ITS | Encounter Summary ---
Author Organization [facility] Address [address] 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
--- OUTSIDE RECORDS SUMMARY | 2024-12-18 13:35 | XMS_ITS | Encounter Summary ---
Author Organization [facility] Address [address] [place] [address] Care Team Providers Care Firewall Administrator Name Role Phone Marsha Turner MD Primary Care Provider +1- [phone] Encounter Details Date Type Department Care Team (Late st Contact Info) Description 09/13/2006 Outpatient Historical [facility] [address] 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
--- OUTSIDE RECORDS SUMMARY | 2024-12-18 13:35 | XMS_ITS | Encounter Summary ---
Author Organization [facility] Address [address] [place] [address] Care Team Providers Care Airport Security Screener Name Role Phone Marsha Turner MD Primary Care Provider +1- [phone] Encounter Details Date Type Department Care Team (Latest Contact Info) Description 10/05/2006 Outpatient Historical [facility] Operating Room [address] [place] [address] Thomas Mack MD NO ADDRESS ON FILE Encounters for Unspecified Administrative Purpose (Primary Dx) Social History Tobacco Use Types Packs/Day Years Used Date Smoking Tobacco: Never Assessed Sex and Gender Information Value Date Recorded Sex Assigned at Not on file 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
--- OUTSIDE RECORDS SUMMARY | 2024-12-18 13:35 | XMS_ITS | Encounter Summary ---
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 Gender Identity Not on file Sexual Orientation Not on file documented as of this encounter Plan of Treatment Not on file documented as of this encounter Visit Diagnoses Diagnosis Viral warts, unspecified Congestive heart failure, unspecified Unspecified essential hypertension Arthropathy, unspecified, site unspecified Personal history of other diseases of circulatory system Personal history of malignant neoplasm of prostate Personal history of allergy to analgesic agent Personal history of allergy to other specified medicinal agents documented in this encounter Care Teams Grinding Wheel Facer Relationship Specialty Start Date End Date Marsha Turner MD [address] [place] [address] PCP - General Internal Medicine 05/31/12 documented as of this encounter
--- OUTSIDE RECORDS SUMMARY | 2024-12-18 13:35 | XMS_ITS | Clinical Summary ---
Author Organization [facility] Address [address] 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 Gender Identity Not on file Sexual [...] years Discontinued Medical Devices Implanted Type Area Form Tamper Device Identifier Shelf Expiration Date Model / Serial / Lot Vitoss Foam Ba 1.2ml [id number] - Sna Implanted:Qty: 1 on 04/18/2013 Biological N/A: Spine Cervical Anterior LISA- SPINE 10/13/2014 / NA / [id number] Silverpeak C Stand Alone Cage [id number] Implanted:Qty: 1 on 04/18/2013 by John Castillo MD Cage N/A: Spine Cervical Anterior LISA- SPINE 21804129 / LD [id number] / NA Cement Palacos R+G [id number] - Sna Implanted:Qty: 2 on 09/29/2012 Cement Left: Knee SHIRA [employer] INC 01/13/201612-5610-908-01 / NA / NA Hemostatic Gelfoam Powder 1gm [id number] - [id number] Implanted:Qty: 1 on 05/20/2015 by Dee Casillas MD Hemostatic N/A: Spine Thoracic PFIZER- PHARM 10/12/201732930106857 / / [id number] Hemostatic Gelfoam Powder 1gm [id number] - [id number] Implanted:Qty: 1 on 09/14/2017 by Dee Casillas MD Hemostatic N/A: Back PFIZER- PHARM 11/13/2019 [id number] / / [id number] Gel-Flow Nt Implanted:Qty: 1 on 08/12/2018 by Dee Casillas MD Hemostatic N/A: Spine Cervical Anterior PFIZER- PHARMACIA AND UPJOHN I 08/04/2019 / / [id number] Bearing Tib Vng 10mm 79/83mm 036705 - [id number] Implanted:Qty: 1 on 09/29/2012 Knee Left: Knee BIOMET INC 05/12/2017 394470 / / [id number] Comp Fem Vng Ps Sz72.5 Lt 082671 - [id number] Implanted:Qty: 1 on 09/29/2012 Knee Left: Knee BIOMET INC 06/12/2022 090474 / / [id number] Comp Tib Cocr Finned 83mm [id number] - [id number] Implanted:Qty: 1 on 09/29/2012 Knee Left: Knee BIOMET INC 03/14/2022 155714 / / [id number] Standard Patella Implanted:Qty: 1 on 09/29/2012 by Dylon Abreu MD Knee Left: Knee BIOMET- ORTHOPED[employer] INC 07/12/2017 940409 / / [id number] Plate Hybrid Cerv 12mm 52244695 - [id number] Implanted:Qty: 1 on 04/18/2013 Plate N/A: Spine Cervical Anterior LISA- SPINE 97828600 / LD [id number] / NA Issac Lgcy Crv Ti 5.3b531ia 9418329 - [id number] Implanted:Qty: 1 on 09/14/2017 by Dee Casillas MD Issac N/A: Back MEDTRONIC- SOFAMOR DANEK 09/15/2019 1746354 / / [id number] Issac Lgcy Crv Ti 5.0k702po 6532186 - [id number] Implanted:Qty: 1 on 09/14/2017 by Dee Casillas MD Issac N/A: Back [employer]- SOFAMOR DANEK 09/15/2019 2434108 / / [id number] Issac Std 3.1q609sk 1115505 - [id number] Implanted:Qty: 2 on 08/12/2018 by Dee Casillas MD Issac N/A: Spine Cervical Anterior [employer]- SOFAMOR DANEK 8449021 / [id number] / Screw Rh St Va 4.0x14mm 78822294 - Sld [id number] Implanted:Qty: 2 on 04/18/2013 Screw N/A: Spine Cervical Anterior LISA- SPINE 64363764 / LD [id number] / NA Screw Sd 3.5x10mm 80478851 - Sld [id number] Implanted:Qty: 2 on 04/18/2013 Screw N/A: Spine Cervical Anterior LISA- SPINE 60254478 / LD [id number] / NA Screw Rh Sd Fa 4.0x14mm 38047482 - Sld [id number] Implanted:Qty: 1 on 04/18/2013 Screw N/A: Spine Cervical Anterior LISA- SPINE 73873850 / LD [id number] / NA Screw Rh St Fa 4.0x14mm 91775533 - Sld [id number] Implanted:Qty: 1 on 04/18/2013 Screw N/A: Spine Cervical Anterior LISA- SPINE 47115257 / LD [id number] / NA Screw Legacy Ma 6.5x50mm 23555382 - [id number] Implanted:Qty: 1 on 09/14/2017 by Dee Casillas MD Screw N/A: Back MEDTRONIC- SOFAMOR DANEK 71236938 / / [id number] Screw Legacy Ma 6.5x50mm 24940963 - [id number] Implanted:Qty: 1 on 09/14/2017 by Dee Casillas MD Screw N/A: Back MEDTRONIC- SOFAMOR DANEK 42427050 / / [id number] Screw Legacy Ma 7.5x50mm 20991056 - [id number] Implanted:Qty: 1 on 09/14/2017 by Dee Casillas MD Screw N/A: Back MEDTRONIC- SOFAMOR DANEK 17241911 / / [id number] Screw Legacy Ma 7.5x50mm 93864417 - [id number] Implanted:Qty: 1 on 09/14/2017 by Dee Casillas MD Screw N/A: Back MEDTRONIC- SOFAMOR DANEK 76455993 / / [id number] Set Screw Break Off Ti 7717905 - [id number] Implanted:Qty: 1 on 09/14/2017 by Dee Casillas MD Screw N/A: Back MEDTRONIC- SOFAMOR DANEK 9213612 / / [id number] Set Screw Break Off Ti 7268329 - [id number] Implanted:Qty: 1 on 09/14/2017 by Dee Casillas MD Screw N/A: Back MEDTRONIC- SOFAMOR DANEK 9427058 / / [id number] Set Screw Break Off Ti 0393075 - [id number] Implanted:Qty: 1 on 09/14/2017 by Dee Casillas MD Screw N/A: Back MEDTRONIC- SOFAMOR DANEK 0956035 / / [id number] Set Screw Break Off Ti 5238023 - [id number] Implanted:Qty: 1 on 09/14/2017 by Dee Casillas MD Screw N/A: Back MEDTRONIC- SOFAMOR DANEK 9021344 / / [id number] Set Screw Break Off Ti 2479391 - [id number] Implanted:Qty: 1 on 09/14/2017 by Dee Casillas MD Screw N/A: Back MEDTRONIC- SOFAMOR DANEK 7685088 / / [id number] Set Screw Break Off Ti 4488107 - [id number] Implanted:Qty: 1 on 09/14/2017 by Dee Casillas MD Screw N/A: Back MEDTRONIC- SOFAMOR DANEK 8026131 / / [id number] Set Screw Break Off Ti 7527598 - [id number] Implanted:Qty: 1 on 09/14/2017 by Dee Casillas MD Screw N/A: Back MEDTRONIC- SOFAMOR DANEK 0693944 / / [id number] Set Screw Break Off Ti 4584722 - [id number] Implanted:Qty: 1 on 09/14/2017 by Dee Casillas MD Screw N/A: Back MEDTRONIC- SOFAMOR DANEK 4036390 / / [id number] Infinity Screw Implanted:Qty: 7 on 08/12/2018 by Dee Casillas MD Screw N/A: Spine Cervical Anterior MEDTRONIC- NEUROSURGERY 0113308 / [id number] / Description:PER INVOICE Infinity Screw Implanted:Qty: 2 on 08/12/2018 by Dee Casillas MD Screw N/A: Spine Cervical Anterior MEDTRONIC- NEUROSURGERY 0441966 / [id number] / Description:PER INVOICE Infinity Screw Implanted:Qty: 2 on 08/12/2018 by Dee Casillas MD Screw N/A: Spine Cervical Anterior MEDTRONIC- NEUROSURGERY 8708413 / [id number] / Description:PER INVOICE Infinity Set Screws Implanted:Qty: 11 on 08/12/2018 by Dee Casillas MD Screw N/A: Spine Cervical Anterior 8775303 / [id number] / Description:PER INVOICE Spacer As [id number] 78551744 - Sld [id number] Implanted:Qty: 1 on 04/18/2013 Spacer N/A: Spine Cervical Anterior LISA- SPINE 92031189 / LD [id number] / NA Crosslink Lp Mltspn L=1.75-2.15 811-322 - [id number] Implanted:Qty: 1 on 09/14/2017 by Dee Casillas MD Spine N/A: Back MEDTRONIC- SOFAMOR ALVINAEK 09/15/2019 811-322 / / [id number] Description:09/17 inv pricing Putty Bio Dbm 10ml 9264144 - [id number] Implanted:Qty: 1 on 09/14/2017 by Dee Casillas MD Tissue N/A: Back LISA- HOWMEDICA INT INC 05/27/2019 7638507 / / [id number] Putty Bio Dbm 10ml 0137031 - [id number] Implanted:Qty: 1 on 09/14/2017 by Dee Casillas MD Tissue N/A: Back LISA- HOWMEDICA INT INC 05/16/2019 9122046 / / [id number] Readigraft Canc Chips 30ml Can30 14bp - [id number] Implanted:Qty: 1 on 09/14/2017 by Dee Casillas MD Tissue N/A: Back Splick.it 08/20/2019 CAN30 14BP / / [id number] Putty Bio Dbm 10ml 4786241 - [id number] Implanted:Qty: 1 on 08/12/2018 by Dee Casillas MD Tissue N/A: Spine Cervical Anterior LISA- HOWMED[employer] INT INC 04/13/2020 4197022 / / [id number] Putty Bio Dbm 10ml 4282033 - [id number] Implanted:Qty: 1 on 08/12/2018 by Dee Casillas MD Tissue N/A: Spine Cervical Anterior LISA- HOWMEDICA INT INC 04/13/2020 5718900 / / [id number] Explanted Type Area Form Tamper Device Identifier Shelf Expiration Date Model / Serial / Lot Stim Spnl Cord Precision Spectra [id number] - [id number] Implanted:Qty : 1 on 05/20/2015 by Dee Casillas MD Explanted:Qty : 1 on 06/15/2016 by Dee Casillas MD Neuro Right: Spine Thoracic [employer]- NEURO MODULATION 05/02/2017 NE-1132 / / [id number] Infinity Set Screws Explanted:Qty : 2 on 08/12/2018 Screw N/A: Spine Cervical Anterior MEDTRONIC- NEUROSURGERY 0541764 / [id number] / Description:PER INVOICE Cover Edge 32 70cm 4x8 Dot Compliance Manager Kit [id number] Implanted:Qty : 1 on 05/20/2015 by Dee Casillas MD Explanted:Qty : 1 on 06/15/2016 by Dee Casillas MD N/A: Spine Thoracic [employer] 02/11/2017 / [id number] / [id number] Set Screws X4, Blockers X4, And 2 Rods Explanted:Qty : 1 on 09/14/2017 by Dee Casillas MD N/A: Spine Cervical Anterior Insurance MEDICARE PART A AND B [employer] * Guarantor: KOJO MARINELLI Account Type Relation to Patient Date of Phone Billing Address Personal/Family [address] [place] [address] [facility] Medicare Part D Care Teams Massage Therapy Instructor Relationship Specialty Start Date End Date Marsha Turner MD [address] [place] [id number] PCP - General 06/12/20
--- OUTSIDE RECORDS SUMMARY | 2024-12-18 13:35 | XMS_ITS | Encounter Summary ---
Author Organization [facility] Address [address] [place] [address] Care Team Providers Care Cdl Program Coordinator Name Role Phone Marsha Turner MD Primary Care Provider +1- [phone] Encounter Details Date Type Department Care Team (Late st Contact Info) Description 01/27/2007 Outpatient Historical [facility] Dermatology- 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
--- OUTSIDE RECORDS SUMMARY | 2024-12-18 13:35 | XMS_ITS | Encounter Summary ---
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; Cervical Spondylosis without Myelopathy Social History Tobacco Use Types Packs/Day Years Used Date Smoking Tobacco: Never Assessed Sex and Gender Information Value Date Recorded Sex Assigned at Not on file Legal 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 Gender Identity Not on file Sexual Orientation Not on file documented as of this encounter Plan of Treatment Not on file documented as of this encounter Procedures Procedure Name Priority Date/Time Associated Diagnosis Comments XR LUMBAR SPINE 2 OR 3 VW Routine 03/05/2008 1:38 PM QUALITY TECHNICIAN FIBERGLASS documented in this encounter Results * XR LUMBAR SPINE 2 OR 3 VW (03/05/2008 1:38 PM QUALITY TECHNICIAN FIBERGLASS) Anatomical Region Laterality Modality Spine Other 03/05/2008 1:38 PM QUALITY TECHNICIAN FIBERGLASS Narrative 03/06/2008 10:42 AM QUALITY TECHNICIAN FIBERGLASS Exam: Spine - Lumbar Date/Time of Exam: [...] myelopathy documented in this encounter Care Teams Chief Clinical Dietitian Relationship Specialty Start Date End Date Marsha Turner MD [address] [place] [address] PCP - General Internal Medicine 05/31/12 documented as of this encounter
--- OUTSIDE RECORDS SUMMARY | 2024-12-18 13:35 | XMS_ITS | Encounter Summary ---
Author Organization [facility] Address [address] [place] [address] Care Team Providers Care Tool Maintenance Technician Name Role Phone Marsha Turner MD Primary Care Provider +1- [phone] Encounter Details Date Type Department Care Team (Late st Contact Info) Description 09/23/2005 Outpatient Historical [facility] Jarad Walton [address] [place] [address] Thomas Mack MD NO ADDRESS ON FILE Renal Colic (Primary Dx) Social History Tobacco Use Types Packs/Day Years Used Date Smoking Tobacco: Never Assessed Sex and Gender Information Value Date Recorded Sex Assigned at Not on file 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
--- OUTSIDE RECORDS SUMMARY | 2024-12-18 13:35 | XMS_ITS | Encounter Summary ---
Author Organization [facility] Address [address] [place] [address] Care Team Providers Care Research Subject Name Role Phone Marsha Turner MD Primary Care Provider +1- [phone] Encounter Details Date Type Department Care Team (Late st Contact Info) Description 09/23/2005 Outpatient Historical [facility] Urology [facility] [address] 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
--- OUTSIDE RECORDS SUMMARY | 2024-12-18 13:35 | XMS_ITS | Encounter Summary ---
Author Organization [facility] Address [address] 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
--- OUTSIDE RECORDS SUMMARY | 2024-12-18 13:35 | XMS_ITS | Encounter Summary ---
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
--- OUTSIDE RECORDS SUMMARY | 2024-12-18 13:35 | XMS_ITS | Clinical Summary ---
Author Organization [facility] Address [address] [place] [address] Care Team Providers Care Decorating Machine Operator Name Role Phone Marsha Turner MD Primary Care Provider +1- [phone] Allergies Active Allergy Reactions Criticality Noted Date [...] SYNTHROID 137 mcg tablet 137 mcg daily batch and furnace operator. 9 Active liothyronine (CYTOMEL) 5 mcg Tablet 2 Tablets daily batch and furnace operator. 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 Gender Identity Not on file Sexual [...] years Discontinued Medical Devices Implanted Type Area Flight Operations Dispatch Clerk Device Identifier Shelf Expiration Date Model / Serial / Lot Vitoss Foam Ba 1.2ml Implanted:Qty: 1 on 04/18/2013 at [facility] Biological N/A: Spine Cervical Anterior LISA- SPINE 10/13/2014 / NA / [id number] Prospect C Stand Alone Cage [id number] Implanted:Qty: 1 on 04/18/2013 by John Castillo MD at [facility] Cage N/A: Spine Cervical Anterior LISA- SPINE [id number] / LD [id number] / NA Cement Palacos R+G [phone] - Sna Implanted:Qty: 2 on 09/29/2012 at [facility] Cement Left: Knee SHIRA [employer] INC 01/13/201641-1767-176-01 / NA / NA Hemostatic Gelfoam Powder 1gm [id number] - [id number] Implanted:Qty: 1 on 05/20/2015 by Dee Casillas MD at [facility] Hemostatic N/A: Spine Thoracic PFIZER- PHARM 10/12/2017 [id number] / / [id number] Hemostatic Gelfoam Powder 1gm [id number] - [id number] Implanted:Qty: 1 on 09/14/2017 by Dee Casillas MD at [facility] Hemostatic N/A: Back PFIZER- PHARM 11/13/2019 [id number] / / [id number] Gel-Flow Nt Implanted:Qty: 1 on 08/12/2018 by Dee Casillas MD at [facility] Hemostatic N/A: Spine Cervical Anterior PFIZER- PHARMACIA AND UPJOHN I 08/04/2019 / / [id number] Bearing Tib Vng 10mm 79/83mm 476296 - [id number] Implanted:Qty: 1 on 09/29/2012 at [facility] Knee Left: Knee BIOMET INC 05/12/2017 179920 / / [id number] Comp Fem Vng Ps Sz72.5 Lt 913709 - [id number] Implanted:Qty: 1 on 09/29/2012 at [facility] Knee Left: Knee BIOMET INC 06/12/2022 911830 / / [id number] Comp Tib Cocr Finned 83mm 140589 - [id number] Implanted:Qty: 1 on 09/29/2012 at [facility] Knee Left: Knee BIOMET INC 03/14/2022 309913 / / [id number] Standard Patella Implanted:Qty: 1 on 09/29/2012 by Dylon Abreu MD at [facility] Knee Left: Knee BIOMET- ORTHOPEDICS, INC 07/12/2017 645835 / / [id number] Plate Hybrid Cerv 12mm 23835494 - Sld [id number] Implanted:Qty: 1 on 04/18/2013 at [facility] Plate N/A: Spine Cervical Anterior LISA- SPINE 85265528 / LD [id number] / NA Issac Lgcy Crv Ti 5.1u638ki 6880989 - [id number] Implanted:Qty: 1 on 09/14/2017 by Dee Casillas MD at [facility] Issac N/A: Back MEDTRONIC- SOFAMOR DANEK 09/15/2019 8756540 / / [id number] Issac Lgcy Crv Ti 5.8x095rd 7156952 - [id number] Implanted:Qty: 1 on 09/14/2017 by Dee Casillas MD at [facility] Issac N/A: Back MEDTRONIC- SOFAMOR DANEK 09/15/2019 9441308 / / [id number] Issac Std 3.4s868ax 4753880 - [id number] Implanted:Qty: 2 on 08/12/2018 by Dee Casillas MD at [facility] Issac N/A: Spine Cervical Anterior MEDTRONIC- SOFAMOR DANEK 4374482 / [id number] / Screw Rh Sd Fa 4.0x14mm 27367627 - Sld [id number] Implanted:Qty: 1 on 04/18/2013 at [facility] Screw N/A: Spine Cervical Anterior LISA- SPINE 66597149 / LD [id number] / NA Screw Sd 3.5x10mm 58077399 - Sld [id number] Implanted:Qty: 2 on 04/18/2013 at [facility] Screw N/A: Spine Cervical Anterior LISA- SPINE 28600208 / LD [id number] / NA Screw Rh St Va 4.0x14mm 59863439 - Sld [id number] Implanted:Qty: 2 on 04/18/2013 at [facility] Screw N/A: Spine Cervical Anterior LISA- SPINE 64898243 / LD [id number] / NA Screw Rh St Fa 4.0x14mm 86570955 - Sld [id number] Implanted:Qty: 1 on 04/18/2013 at [facility] Screw N/A: Spine Cervical Anterior LISA- SPINE 41019914 / LD [id number] / NA Screw Legacy Ma 6.5x50mm 66729645 - [id number] Implanted:Qty: 1 on 09/14/2017 by Dee Casillas MD at [facility] Screw N/A: Back MEDTRONIC- SOFAMOR DANEK 40460338 / / [id number] Screw Legacy Ma 6.5x50mm 23562536 - [id number] Implanted:Qty: 1 on 09/14/2017 by Dee Casillas MD at [facility] Screw N/A: Back MEDTRONIC- SOFAMOR DANEK 74937771 / / [id number] Set Screw Break Off Ti 4212640 - [id number] Implanted:Qty: 1 on 09/14/2017 by Dee Casillas MD at [facility] Screw N/A: Back MEDTRONIC- SOFAMOR DANEK 2887318 / / [id number] Set Screw Break Off Ti 7579583 - [id number] Implanted:Qty: 1 on 09/14/2017 by Dee Casillas MD at [facility] Screw N/A: Back MEDTRONIC- SOFAMOR DANEK 7408292 / / [id number] Set Screw Break Off Ti 9088670 - [id number] Implanted:Qty: 1 on 09/14/2017 by Dee Casillas MD at [facility] Screw N/A: Back MEDTRONIC- SOFAMOR DANEK 1499199 / / [id number] Set Screw Break Off Ti 1161930 - [id number] Implanted:Qty: 1 on 09/14/2017 by Dee Casillas MD at [facility] Screw N/A: Back MEDTRONIC- SOFAMOR DANEK 5956678 / / [id number] Set Screw Break Off Ti 3363410 - [id number] Implanted:Qty: 1 on 09/14/2017 by Dee Casillas MD at [facility] Screw N/A: Back MEDTRONIC- SOFAMOR DANEK 9555885 / / [id number] Screw Legacy Ma 7.5x50mm 11222077 - [id number] Implanted:Qty: 1 on 09/14/2017 by Dee Casillas MD at [facility] Screw N/A: Back MEDTRONIC- SOFAMOR DANEK 53789776 / / [id number] Screw Legacy Ma 7.5x50mm 14784730 - [id number] Implanted:Qty: 1 on 09/14/2017 by Dee Casillas MD at [facility] Screw N/A: Back MEDTRONIC- SOFAMOR DANEK 62852221 / / [id number] Set Screw Break Off Ti 1283980 - [id number] Implanted:Qty: 1 on 09/14/2017 by Dee Casillas MD at [facility] Screw N/A: Back MEDTRONIC- SOFAMOR DANEK 1474410 / / [id number] Set Screw Break Off Ti 2524986 - [id number] Implanted:Qty: 1 on 09/14/2017 by Dee Casillas MD at [facility] Screw N/A: Back MEDTRONIC- SOFAMOR DANEK 1516249 / / [id number] Set Screw Break Off Ti 4993329 - [id number] Implanted:Qty: 1 on 09/14/2017 by Dee Casillas MD at [facility] Screw N/A: Back MEDTRONIC- SOFAMOR DANEK 9968453 / / [id number] Infinity Screw Implanted:Qty: 7 on 08/12/2018 by Dee Casillas MD at [facility] Screw N/A: Spine Cervical Anterior MEDTRONIC- NEUROSURGERY 2529449 / [id number] / Description:PER INVOICE Infinity Screw Implanted:Qty: 2 on 08/12/2018 by Dee Casillas MD at [facility] Screw N/A: Spine Cervical Anterior MEDTRONIC- NEUROSURGERY 1896242 / [id number] / Description:PER INVOICE Infinity Screw Implanted:Qty: 2 on 08/12/2018 by Dee Casillas MD at [facility] Screw N/A: Spine Cervical Anterior MEDTRONIC- NEUROSURGERY 9777321 / [id number] / Description:PER INVOICE Infinity Set Screws Implanted:Qty: 11 on 08/12/2018 by Dee Casillas MD at [facility] Screw N/A: Spine Cervical Anterior 3593021 / [id number] / Description:PER INVOICE Spacer As [id number] 37624797 - Sld [id number] Implanted:Qty: 1 on 04/18/2013 at [facility] Spacer N/A: Spine Cervical Anterior LISA- SPINE 96057631 / LD [id number] / NA Crosslink Lp Mltspn L=1.75-2.15 811-322 - [id number] Implanted:Qty: 1 on 09/14/2017 by Dee Casillas MD at [facility] Spine N/A: Back MEDTRONIC- SOFAMOR DANEK 09/15/2019 811-322 / / [id number] Description:09/17 inv pricing Readigraft Canc Chips 30ml Can30 14bp - [id number] Implanted:Qty: 1 on 09/14/2017 by Dee Casillas MD at [facility] Tissue N/A: Back LIFENET 08/20/2019 CAN30 14BP / / [id number] Putty Bio Dbm 10ml 0940335 - [id number] Implanted:Qty: 1 on 09/14/2017 by Dee Casillas MD at [facility] Tissue N/A: Back LISA- HOWMEDICA INT INC 05/27/2019 2695202 / / [id number] Putty Bio Dbm 10ml 9372173 - [id number] Implanted:Qty: 1 on 09/14/2017 by Dee Casillas MD at [facility] Tissue N/A: Back LISA- HOWMEDICA INT INC 05/16/2019 9692373 / / [id number] Putty Bio Dbm 10ml 4266988 - [id number] Implanted:Qty: 1 on 08/12/2018 by Dee Casillas MD at [facility] Tissue N/A: Spine Cervical Anterior LISA- HOWMEDICA INT INC 04/13/2020 9102373 / / [id number] Putty Bio Dbm 10ml 5547360 - [id number] Implanted:Qty: 1 on 08/12/2018 by Dee Casillas MD at [facility] Tissue N/A: Spine Cervical Anterior LISA- HOWMEDICA INT INC 04/13/2020 2047547 / / [id number] Explanted Type Area Flight Operations Dispatch Clerk Device Identifier Shelf Expiration Date Model / Serial / Lot Stim Spnl Cord Precision Spectra [id number] - [id number] Implanted:Qty: 1 on 05/20/2015 by Dee Casillas MD at [facility] Explanted:Qty: 1 on 06/15/2016 by Dee Casillas MD at [facility] Neuro Right: Spine Thoracic [employer]- NEURO MODULATION 05/02/2017 ND-1132 / / [id number] Infinity Set Screws Explanted:Qty: 2 on 08/12/2018 at [facility] Screw N/A: Spine Cervical Anterior MEDTRONIC- NEUROSURGERY 3693457 / [id number] / Description:PER INVOICE Cover Edge 32 70cm 4x8 Direct Marketing Analyst Kit [id number] Implanted:Qty: 1 on 05/20/2015 by Dee Casillas MD at [facility] Explanted:Qty: 1 on 06/15/2016 by Dee Casillas MD at [facility] N/A: Spine Thoracic [employer] INC 02/11/2017 / [id number] / [id number] Set Screws X4, Blockers X4, And 2 Rods Explanted:Qty: 1 on 09/14/2017 by Dee Casillas MD at [facility] N/A: Spine Cervical Anterior Insurance MEDICARE PART A AND B GENERIC PAYOR RX [facility] Medicare Part D [facility] MEDICARE PART A AND B Advance Directives For more information, please contact: [phone] * Full Code (Latest Code Status on [...] 9:28 AM 06/15/2016 5:17 PM Care Teams Decorating Machine Operator Relationship Specialty Start Date End Date Marsha Turner MD [address] [place] [address] PCP - General Internal Medicine 05/31/12
--- OUTSIDE RECORDS SUMMARY | 2024-12-18 13:35 | XMS_ITS | Encounter Summary ---
Author Organization [facility] Address [address] [place] [address] Care Team Providers Care Millstone Cleaner Name Role Phone Marsha Turner MD Primary Care Provider +1- [phone] Encounter Details Date Type Department Care Team (Latest Contact Info) Description 06/25/2006 Outpatient Historical [facility] Operating Room [address] [place] [address] Abilio Bagley MD [address] [place] [address] Abdominal Pain, Right Upper Quadrant (Primary Dx) Social History Tobacco Use Types Packs/Day Years Used Date Smoking Tobacco: Never Assessed Sex and Gender Information Value Date Recorded Sex Assigned at Not on file 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
--- OUTSIDE RECORDS SUMMARY | 2024-12-18 13:35 | XMS_ITS | Encounter Summary ---
Author Organization [facility] Address [address] [place] [address] Care Team Providers Care Dry Box Operator Name Role Phone Marsha Turner MD Primary Care Provider +1- [phone] Encounter Details Date Type Department Care Team (Late st Contact Info) Description 01/03/2008 Outpatient Historical [facility] IN BED Dee Casillas MD [address] [address] Social History Tobacco Use Types Packs/Day Years Used Date Smoking Tobacco: Never Assessed Sex and Gender Information Value Date Recorded Sex Assigned at Not on file Legal Sex Male 6:16 AM MANAGER VOICE Gender Identity Not on file Sexual Orientation Not on file documented as of this encounter Plan of Treatment Not on file documented as of this encounter Procedures Procedure Name Priority Date/Time Associated Diagnosis Comments CBC WITH DIFFERENTIAL Routine 01/26/2008 4:13 AM MANAGER VOICE COMPREHENSIVE METABOLIC PANEL Routine 01/26/2008 4:13 AM MANAGER VOICE CBC WITH DIFFERENTIAL Routine 01/25/2008 3:17 AM MANAGER VOICE COMPREHENSIVE METABOLIC PANEL Routine 01/25/2008 3:17 AM MANAGER VOICE POC GLUCOSE Routine 01/25/2008 12:12 AM MANAGER VOICE POC GLUCOSE Routine 01/24/2008 7:55 PM MANAGER VOICE XR FLUORO GREATER THAN 1 HOUR Routine 01/24/2008 4:26 PM MANAGER VOICE HEMOGLOBIN AND HEMATOCRIT Stat 01/24/2008 3:06 PM MANAGER VOICE ABORH TYPING Stat 01/24/2008 9:50 AM MANAGER VOICE TYPE AND CROSSMATCH Stat 01/24/2008 9 :50 AM MANAGER VOICE BLOOD BANK ANTIBODY SCREEN Stat 01/24/2008 9:50 AM MANAGER VOICE documented in this encounter Results * (ABNORMAL) COMPREHENSIVE METABOLIC PANEL (01/26/2008 4:13 AM MANAGER VOICE) ALKALINE PHOSPHATASE 44 25 - 100 U/L [facility] CHLORIDE 108 95 - 110 mEq/L [facility] OSMOLALITY, CALCULATED 281 275 - 295 mOsm/Kg [facility] GLOBULIN (CALC) 2.1(L) 2.4 - 3.9 g/dL [facility] TOTAL PROTEIN 5.1(L) 6.3 - 8.2 g/dL [facility] SODIUM 137 136 - 145 mEq/L [facility] BILIRUBIN TOTAL 0.4 0.3 - 1.2 mg/dL [facility] CO2 26 22 - 32 mmol/l [facility] BUN 7(L) 9 - 20 mg/dL [facility] AST 22 8 - 33 U/L [facility] ALBUMIN/GLOBULIN RATIO 1.4 1.0 - 2.3 [facility] POTASSIUM 3.9 3.5 - 5.0 mEq/L [facility] ANION GAP 7(L) 9 - 20 mEq/L [facility] ALBUMIN 3.0(L) 3.5 - 5.0 g/dL [facility] CREATININE 0.6(L) 0.7 - 1.5 mg/dL [facility] ALT 13 4 - 36 IU/L [facility] CALCIUM 8.1(L) 8.4 - 10.5 mg/dL [facility] GLUCOSE 113(H) 70 - 110 mg/dL [facility] Blood specimen (specimen) 01/26/2008 4:13 AM MANAGER VOICE 01/26/2008 4:49 AM MANAGER VOICE us Dee Casillas MD CHEMISTRY ORDERABLES Final Resul t Performing Organization Address City/State/[facility] Co de Phone Number INTERFACE SYSTEM Refer to clinic/hospital department [facility] CLIA# [id number] [address] [place] [address] * (ABNORMAL) CBC WITH DIFFERENTIAL (01/26/2008 4:13 AM MANAGER VOICE) WBC 5.4 4.8 - 10.8 K/ul [facility] MCH 29.9 27.0 - 34.0 pg [facility] NEUTROPHIL ABSOLUTE 4.0 2.0 - 8.0 K/ul [facility] NEUTROPHILS 72.9 42.2 - 75.2 % [facility] HEMATOCRIT 28.4(L) 41.0 - 53.0 % [facility] EOSINOPHILS 1.3 0.0 - 7.0 % [facility] PLATELETS 187 140 - 440 K/ul [facility] EOSINOPHIL ABSOLUTE 0.1 0.0 - 0.7 K/ul [facility] RBC 3.14(L) 4.60 - 6.20 Mil/ul [facility] LYMPHOCYTES 13.6(L) 24.0 - 44.0 % [facility] MCHC 33.1 30.0 - 35.0 g/dL [facility] LYMPHOCYTE ABSOLUTE 0.7(L) 1.2 - 4.0 K/ul [facility] MCV 90.4 84.0 - 103.0 Fl [facility] MPV 9.0 8.9 - 12.8 Fl [facility] BASOPHILS ABSOLUTE 0.0 0.0 - 0.2 K/ul [facility] BASOPHILS 0.4 0.0 - 1.0 % [facility] HEMOGLOBIN 9.4(L) 14.0 - 18.0 g/dL [facility] RDW 13.9 11.0 - 14.5 % [facility] MONOCYTE ABSOLUTE 0.6 0.1 - 0.6 K/ul [facility] MONOCYTES 11.8(H) 2.0 - 10.0 % [facility] Blood specimen (specimen) 01/26/2008 4:13 AM MANAGER VOICE 01/26/2008 4:49 AM MANAGER VOICE us Dee Casillas MD HEMATOLOGY ORDERABLES Final Resu lt INTERFACE SYSTEM Refer to clinic/hospital department [facility] CLIA# [id number] [address] [place] [address] * (ABNORMAL) COMPREHENSIVE METABOLIC PANEL (01/25/2008 3:17 AM MANAGER VOICE) CALCIUM 7.7(L) 8.4 - 10.5 mg/dL [facility] CREATININE 0.7 0.7 - 1.5 mg/dL [facility] ALT 18 4 - 36 IU/L [facility] GLUCOSE 127(H) 70 - 110 mg/dL [facility] CHLORIDE 111(H) 95 - 110 mEq/L [facility] OSMOLALITY, CALCULATED 283 275 - 295 mOsm/Kg [facility] ALKALINE PHOSPHATASE 47 25 - 100 U/L [facility] GLOBULIN (CALC) 1.8(L) 2.4 - 3.9 g/dL [facility] SODIUM 138 136 - 145 mEq/L [facility] BILIRUBIN TOTAL 0.4 0.3 - 1.2 mg/dL [facility] TOTAL PROTEIN 4.8(L) 6.3 - 8.2 g/dL [facility] BUN 8(L) 9 - 20 mg/dL [facility] AST 21 8 - 33 U/L [facility] CO2 27 22 - 32 mmol/l [facility] ALBUMIN/GLOBULIN RATIO 1.7 1.0 - 2.3 [facility] ALBUMIN 3.0(L) 3.5 - 5.0 g/dL [facility] POTASSIUM 3.7 3.5 - 5.0 mEq/L [facility] ANION GAP 4(L) 9 - 20 mEq/L [facility] Blood specimen (specimen) 01/25/2008 3:17 AM MANAGER VOICE 01/25/2008 3:41 AM MANAGER VOICE us Dee Casillas MD CHEMISTRY ORDERABLES Final Resul t INTERFACE SYSTEM Refer to clinic/hospital department [facility] CLIA# [id number] [address] [place] [address] * (ABNORMAL) CBC WITH DIFFERENTIAL (01/25/2008 3:17 AM MANAGER VOICE) MCV 90.4 84.0 - 103.0 Fl [facility] MPV 9.0 8.9 - 12.8 Fl [facility] BASOPHILS 0.6 0.0 - 1.0 % [facility] BASOPHILS ABSOLUTE 0.0 0.0 - 0.2 K/ul [facility] HEMOGLOBIN 9.1(L) 14.0 - 18.0 g/dL [facility] RDW 14.2 11.0 - 14.5 % [facility] MONOCYTES 10.1(H) 2.0 - 10.0 % [facility] MONOCYTE ABSOLUTE 0.5 0.1 - 0.6 K/ul [facility] WBC 5.1 4.8 - 10.8 K/ul [facility] MCH 30.2 27.0 - 34.0 pg [facility] NEUTROPHILS 73.7 42.2 - 75.2 % [facility] NEUTROPHIL ABSOLUTE 3.7 2.0 - 8.0 K/ul [facility] HEMATOCRIT 27.2(L) 41.0 - 53.0 % [facility] PLATELETS 179 140 - 440 K/ul [facility] EOSINOPHIL ABSOLUTE 0.0 0.0 - 0.7 K/ul [facility] EOSINOPHILS 0.6 0.0 - 7.0 % [facility] RBC 3.01(L) 4.60 - 6.20 Mil/ul [facility] LYMPHOCYTES 15.0(L) 24.0 - 44.0 % [facility] MCHC 33.5 30.0 - 35.0 g/dL [facility] LYMPHOCYTE ABSOLUTE 0.8(L) 1.2 - 4.0 K/ul [facility] Blood specimen (specimen) 01/25/2008 3:17 AM MANAGER VOICE 01/25/2008 3:41 AM MANAGER VOICE Dee Casillas MD HEMATOLOGY ORDERABLES Final Resu lt Performing Organization Address City/[facility] de Phone Number INTERFACE SYSTEM Refer to clinic/hospital department [facility] CLIA# [id number] [address] [place] [address] * (ABNORMAL) POC GLUCOSE (01/25/2008 12:12 AM MANAGER VOICE) GLUCOSE POC 131(H) 60 - 100 mg/dL [facility] Venous blood specimen (specimen) 01/25/2008 12:12 AM MANAGER VOICE 01/25/2008 2:51 AM MANAGER VOICE Dee Casillas MD POINT OF CARE TESTING Final Resu lt Performing Organization Address [facility] Phone Number INTERFACE SYSTEM Refer to clinic/hospital department [facility] CLIA# [id number] [address] [place] [address] * (ABNORMAL) POC GLUCOSE (01/24/2008 7:55 PM MANAGER VOICE) GLUCOSE POC 129(H) 60 - 100 mg/dL [facility] Venous blood specimen (specimen) 01/24/2008 7:55 PM MANAGER VOICE 01/25/2008 2:51 AM MANAGER VOICE Result [facility] us Dee Casillas MD POINT OF CARE TESTING Final Resu lt Performing Organization Address [facility] de Phone Number INTERFACE SYSTEM Refer to clinic/hospital department [facility] CLIA# [id number] [address] [place] [address] * XR FLUORO > 1 HOUR (01/24/2008 4:26 PM MANAGER VOICE) Anatomical Region Laterality Modality Other 01/24/2008 4:26 PM MANAGER VOICE Narrative 01/24/2008 4:26 PM MANAGER VOICE Finalized by interface cleanup utility. No report expected. Procedure Note 03/25/2008 Finalized by interface cleanup utility. No report expected. us Dee Casillas MD DIAGNOSTIC IMAGING ORDERABLES Fi nal Result * (ABNORMAL) HEMOGLOBIN AND HEMATOCRIT (01/24/2008 3:06 PM MANAGER VOICE) HEMOGLOBIN 9.9(L) 14.0 - 18.0 g/dL [facility] HEMATOCRIT 29.2(L) 41.0 - 53.0 % [facility] Blood specimen (specimen) 01/24/2008 3:06 PM MANAGER VOICE 01/24/2008 3:06 PM MANAGER VOICE Result [facility] us Dee Casillas MD HEMATOLOGY ORDERABLES Final Resu lt Performing Organization Address [facility] de Phone Number INTERFACE SYSTEM Refer to clinic/hospital department [facility] CLIA# [id number] [address] [place] [address] * TYPE AND CROSSMATCH (01/24/2008 9:50 AM MANAGER VOICE) BLOOD BANK PRODUCT INTERFACE SYSTEM Blood specimen (specimen) 01/24/2008 9:50 AM MANAGER VOICE 01/24/2008 9:53 AM MANAGER VOICE Result [facility] Dee Casillas MD BLOOD BANK ORDERABLES Final Resu lt Performing Organization Address City/[facility] Co de Phone Number INTERFACE SYSTEM Refer to clinic/hospital department * ANTIBODY SCREEN (01/24/2008 9:50 AM MANAGER VOICE) ANTIBODY SCREEN Negative [facility] Blood specimen (specimen) 01/24/2008 9:50 AM MANAGER VOICE 01/24/2008 9:53 AM MANAGER VOICE Dee Casillas MD BLOOD BANK ORDERABLES Final Resu lt Performing Organization Address [facility] de Phone Number INTERFACE SYSTEM Refer to clinic/hospital department [facility] CLIA# [id number] [address] [place] [address] * ABORH TYPING (01/24/2008 9:50 AM MANAGER VOICE) ABO/RH TYPE A Positive [facility] Blood specimen (specimen) 01/24/2008 9:50 AM MANAGER VOICE 01/24/2008 9:53 AM MANAGER VOICE Dee Casillas MD BLOOD BANK ORDERABLES Final Resu lt Performing Organization Address [facility] de Phone Number INTERFACE SYSTEM Refer to clinic/hospital department [facility] CLIA# [id number] [address] [place] [address] documented in this encounter Visit Diagnoses Not on filedocumented in this encounter Care Teams Dry Box Operator Relationship Specialty Start Date End Date Marsha Turner MD [address] [place] [address] PCP - General Internal Medicine 05/31/12 documented as of this encounter
--- OUTSIDE RECORDS SUMMARY | 2024-12-18 13:35 | XMS_ITS | Encounter Summary ---
Author Organization [facility] Address [address] [place] [address] Care Team Providers Care Pasta Maker Name Role Phone Marsha Turner MD Primary Care Provider +1- [phone] Encounter Details Date Type Department Care Team (Latest Contact Info) Description 05/06/2005 Outpatient [facility] Gastroenterology[address] [place] [address] Abilio Bagley MD [address] [place] [address] CHEST PAIN NOS (Primary Dx) Social History Tobacco Use Types Packs/Day Years Used Date Smoking Tobacco: Never Assessed Sex and Gender Information Value Date Recorded Sex Assigned at Not on file Legal Sex Male 6:16 AM RN REFERRAL Gender Identity Not on file Sexual Orientation Not on file documented as of this encounter Plan of Treatment Not on file documented as of this encounter Visit Diagnoses Diagnosis Chest pain, unspecified- Primary documented in this encounter Care Teams Pasta Maker Relationship Specialty Start Date End Date Marsha Turner MD [address] [place] [address] PCP - General Internal Medicine 05/31/12 documented as of this encounter
--- OUTSIDE RECORDS SUMMARY | 2024-12-18 13:35 | XMS_ITS | Encounter Summary ---
Author Organization [facility] Address [address] [place] [address] Care Team Providers Care Asphalt Plant Laborer Name Role Phone Marsha Turner MD Primary Care Provider +1- [phone] Encounter Details Date Type Department Care Team (Latest Contact Info) Description 06/14/2006 Outpatient [facility] Gastroenterology[address] [place] [address] Abilio Bagley MD [address] [place] [address] Acute Pancreatitis (Primary Dx) Social History Tobacco Use Types Packs/Day Years Used Date Smoking Tobacco: Never Assessed Sex and Gender Information Value Date Recorded Sex Assigned at Not on file Legal Sex Male 6:16 AM TELEVISION MECHANIC Gender Identity Not on file Sexual Orientation Not on file documented as of this encounter Plan of Treatment Not on file documented as of this encounter Visit Diagnoses Diagnosis Acute pancreatitis- Primary documented in this encounter Care Teams Asphalt Plant Laborer Relationship Specialty Start Date End Date Marsha Turner MD [address] [place], [place] [id number] PCP - General Internal Medicine 05/31/12 documented as of this encounter
--- OUTSIDE RECORDS SUMMARY | 2024-12-18 13:35 | XMS_ITS | Encounter Summary ---
Author Organization [facility] Address [address] [place] [address] Care Team Providers Care Liquor Clerk Name Role Phone Marsha Turner MD Primary Care Provider +1- [phone] Encounter Details Date Type Department Care Team (Latest Contact Info) Description 07/12/2006 Outpatient [facility] Gastroenterology[address] [place] [address] Abilio Bagley MD [address] [place] [address] Spasm Sphincter of Oddi (Primary Dx) Social History Tobacco Use Types Packs/Day Years Used Date Smoking Tobacco: Never Assessed Sex and Gender Information Value Date Recorded Sex Assigned at Not on file Legal Sex Male 6:16 AM TIPPLE SUPERVISOR Gender Identity Not on file Sexual Orientation Not on file documented as of this encounter Plan of Treatment Not on file documented as of this encounter Visit Diagnoses Diagnosis Spasm sphincter of Oddi- Primary Spasm of sphincter of Oddi documented in this encounter Care Teams Liquor Clerk Relationship Specialty Start Date End Date Marsha Turner MD [address] [place] [address] PCP - General Internal Medicine 05/31/12 documented as of this encounter
--- OUTSIDE RECORDS SUMMARY | 2024-12-18 13:35 | XMS_ITS | Encounter Summary ---
Author Organization [facility] Address [address] [place] [address] Care Team Providers Care Imaging Technician Name Role Phone Marsha Turner MD Primary Care Provider +1- [phone] Encounter Details Date Type Department Care Team (Late st Contact Info) Description 11/05/2005 Outpatient Historical [facility] Urology [facility] [address] 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
--- OUTSIDE RECORDS SUMMARY | 2024-12-18 13:35 | XMS_ITS | Encounter Summary ---
Author Organization [facility] Address [address] [place] [address] Care Team Providers Care Head Esthetician Name Role Phone Marsha Turner MD Primary Care Provider +1- [phone] Reason for Referral * Outpatient Services (Routine) - Closed Specialty Diagnoses / Procedures Referred By Contac t Referred To Contact Radiology Diagnoses H/O: stroke Dizziness History of atrial fibrillation Procedures ECHOCARDIOGRAM W/ CONTRAST AGENT ECHO COMPLETE W BUBBLE STUDY Hayes Harris MD Phone: tel: fax: [facility] [place] [address] [place] [address] Phone: tel: fax: Referral ID Status Reason Start Date Expiration Date V isits Requested Visits Authorized [id number] Closed F [facility] TO SCHEDULE (SGF) 07/31/2016 08/31/2017 1 1 Encounter Details Date Type Department Care Team (Latest Contact Info) Description 08/20/2016 Ancillary Orders [facility] Neurology- [place] [address] [place] [address] Hayes Harris MD [address] [place] [address] H/O: stroke; Dizziness; History of atrial fibrillation Social History Tobacco Use Types Packs/Day Years Used Date Smoking Tobacco: Never Smokeless Tobacco: Never Alcohol Use Standard Drinks/Week Comments No 0 (1 standard drink = 0.6 oz pur e alcohol) Sex and Gender Information Value Date Recorded Sex Assigned at Not on file Legal Sex Male 6:16 AM AUTOMOBILE MECHANIC APPRENTICE Gender Identity Not on file [...] INTERFACE SYSTEM - 08/20/2016 10:06 AM CDT [facility] Echocardiography-[address] [place] [address] Transthoracic Echocardiography Patient: Yves Study ECHO Kojo Brown ID: COMPLETE W Gender: Stephanie : 1945 Age: 70 Room: Study 08/20/2016 Pt Outpatient Date: Status: Study 07:40 AM CSN #: [id number] Time: Ordering:Hayes Harris Interpreting:Giovanni Benitez MD Chemicals Distiller: Gabby Simeon [facility] Indications and History: : H/O: stroke [Z86.73 [...] septum: Agitated saline contrast study showed no pgrcy-ck-ejlz shunt. - Aortic valve: Trileaflet; mildly thickened [...] Doppler. Agitated saline contrast study showed no dqamr-qz-rzcm shunt. AORTIC VALVE: Trileaflet; mildly thickened leaflets. [...] (*) eaton values outside specified normal range. [facility] are accredited with the Intersocietal Accreditation Commission - Echocardiography. Prepared and Electronically Authenticated Giovanni Benitez MD Confirmed 08/20/2016 10:06 Procedure Note Giovanni Benitez MD - 08/20/2016 [facility] Echocardiography-[place] [address] [facility] [address] [place] [address] Transthoracic Echocardiography Patient: Yves Study ECHO Kojo Brown ID: COMPLETE W Gender: Stephanie : 1945 Age: 70 Room: Study 08/20/2016 Pt Outpatient Date: Status: Study 07:40 AM [facility] #: [id number] Time: Ordering:Hayes Harris Interpreting:Giovanni Benitez MD Chemicals Distiller: Gabby Simeon [facility] Indications and History: : H/O: stroke [Z86.73 [...] septum: Agitated saline contrast study showed no ikhpp-kk-bpae shunt. - Aortic valve: Trileaflet; mildly thickened [...] Doppler. Agitated saline contrast study showed no yxkfw-cr-bmra shunt. AORTIC VALVE: Trileaflet; mildly thickened leaflets. [...] (*) eaton values outside specified normal range. [facility] are accredited with the Intersocietal [...] system documented in this encounter Care Teams Head Esthetician Relationship Specialty Start Date End Date Marsha Turner MD [address] [place] [address] PCP - General Internal Medicine 05/31/12 documented as of this encounter
--- OUTSIDE RECORDS SUMMARY | 2024-12-18 13:35 | XMS_ITS | Encounter Summary ---
Author Organization [facility] Address [address] [place] [address] Care Team Providers Care Sprinkler Fitter Apprentice Name Role Phone Marsha Turner MD Primary Care Provider +1- [phone] Encounter Details Date Type Department Care Team (Late st Contact Info) Description 11/30/2007 Outpatient Historical [facility] Pain Management Procedures [address] [place] [address] Dee Casillas MD [address] [address] Kamar Leach MD NO ADDRESS [...] on file Legal Sex Male 6:16 AM AIRPLANE PATROL PILOT Gender Identity Not on file Sexual Orientation [...] By: Florentino Lovell M.D. Date Signed: 12/08/07 [facility] Procedure Note Florentino Lovell W - 12/08/2007 Views of the lumbar spine with flexion and extension were obtained. Thereis a posterior fusion L4, L5 and S1. Hardware is intact. The neutral, flexion and extension views showthat alignment is within normal limits. Mild to moderate degenerative disc disease is also noted [id number]. - Dictated By: Florentino Lovell M.D. Electronically Signed By: Florentino Lovell M.D. Date Signed: 12/08/07 [facility] Dee Casillas MD DIAGNOSTIC IMAGING ORDERABLES Fi nal Result documented in this encounter Visit Diagnoses Diagnosis Heart failure, unspecified Unspecified asthma(493.90) Unspecified asthma Diaphragmatic hernia without mention of obstruction or gangrene Arthropathy, unspecified, site unspecified Unspecified joint replacement by other means Personal history of allergy to analgesic agent documented in this encounter Care Teams Sprinkler Fitter Apprentice Relationship Specialty Start Date End Date Marsha Turner MD [address] [place] [address] PCP - General Internal Medicine 05/31/12 documented as of this encounter
--- OUTSIDE RECORDS SUMMARY | 2024-12-18 13:35 | XMS_ITS | Encounter Summary ---
Author Organization [facility] Address [address] [place] [address] Care Team Providers Care Squeegee Finisher Name Role Phone Marsha Turner MD Primary Care Provider +1- [phone] Encounter Details Date Type Department Care Team (Latest Contact Info) Description 02/03/2008 Outpatient Historical [facility] [address] [place] [address] [facility] [address] [place] [address] Aliyah Lange, PA [address] [place] [address] Arthrodesis Status; Lumbago; Pain in [...] on file Legal Sex Male 6:16 AM POLICE LIAISON OFFICER Gender Identity Not on file Sexual Orientation Not on file documented as of this encounter Plan of Treatment Not on file documented as of this encounter Procedures Procedure Name Priority Date/Time Associated Diagnosis Comments XR LUMBAR SPINE 2 OR 3 VW Routine 02/06/2008 10:19 AM POLICE LIAISON OFFICER documented in this encounter Results * XR LUMBAR SPINE 2 OR 3 VW (02/06/2008 10:19 AM POLICE LIAISON OFFICER) Anatomical Region Laterality Modality Spine Other 02/06/2008 10:1 9 AM POLICE LIAISON OFFICER Narrative 02/06/2008 1:09 PM POLICE LIAISON OFFICER Exam: Spine - Lumbar Date/Time of Exam: [...] Lumbago Pain in limb Heart failure, unspecified Arthropathy, unspecified, site unspecified Esophageal reflux Diaphragmatic hernia without mention of obstruction or gangrene Other malignant neoplasm without specification of site documented in this encounter Care Teams Squeegee Finisher Relationship Specialty Start Date End Date Marsha Turner MD [address] [place] [address] PCP - General Internal Medicine 05/31/12 documented as of this encounter
--- OUTSIDE RECORDS SUMMARY | 2024-12-18 13:35 | XMS_ITS | Encounter Summary ---
Author Organization [employer] [facility] Address [address] [place] [address] Care Team Providers Care Swatch Maker Name Role Phone Marsha Turner MD Primary Care Provider +1- [phone] Encounter Details Date Type Department Care Team (Late st Contact Info) Description 08/30/2007 Outpatient Historical [facility] [address] [place] [address] Thomas Mack MD NO ADDRESS ON FILE Malignant Neoplasm of Prostate (CMS/HCC) Social History Tobacco Use Types Packs/Day Years Used Date Smoking Tobacco: Never Assessed Sex and Gender Information Value Date Recorded Sex Assigned at Not on file Legal Sex Male 6:16 AM RN NEUROSURGICAL Gender Identity Not on file Sexual Orientation Not on file documented as of this encounter Plan of Treatment Not on file documented as of this encounter Procedures Procedure Name Priority Date/Time Associated Diagnosis Comments PSA MEDICARE DIAGNOSTIC Routine 08/30/2007 1:25 PM CDT documented in this encounter Results * PSA MEDICARE DIAGNOSTIC (08/30/2007 1:25 PM CDT) PSA 1.0 0.0 - 4.0 ng/mL [facility] Blood specimen (specimen) 08/30/2007 1:25 PM CDT 08/30/2007 3:26 PM CDT us Thomas Mack MD CHEMISTRY ORDERABLES F inal Result [facility] CLIA# [id number] [address] [place] [address] documented in this encounter Visit Diagnoses Diagnosis Malignant neoplasm of prostate (CMS/HCC) Malignant neoplasm of prostate documented in this encounter Care Teams Swatch Maker Relationship Specialty Start Date End Date Marsha Turner MD [address] [place] [address] PCP - General Internal Medicine 05/31/12 documented as of this encounter
--- OUTSIDE RECORDS SUMMARY | 2024-12-18 13:35 | XMS_ITS | Encounter Summary ---
Author Organization [facility] Address [address] [place] [address] Care Team Providers Care Director Personal Name Role Phone Marsha Turner MD Primary Care Provider +1- [phone] Encounter Details Date Type Department Care Team (Late st Contact Info) Description 12/12/2007 Outpatient Historical [facility] Pain Management Procedures [address] 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 No report expected. Procedure Note 03/25/2008 Finalized by interface [employer] utility. No report expected. us Kamar Leach MD DIAGNOSTIC IMAGING ORDERAB LES Final Result documented in this encounter Visit Diagnoses Diagnosis Unspecified asthma(493.90) Unspecified asthma Arthropathy, unspecified, site unspecified Diaphragmatic hernia without mention of obstruction or gangrene Personal history of unspecified circulatory disease Unspecified joint replacement by other means Personal history of allergy to analgesic agent documented in this encounter Care Teams Director Personal Relationship Specialty Start Date End Date Marsha Turner MD [address] [place] [address] PCP - General Internal Medicine 05/31/12 documented as of this encounter
--- OUTSIDE RECORDS SUMMARY | 2024-12-18 13:35 | XMS_ITS | Encounter Summary ---
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 of Obstruction or Gangrene; Unspecified Asthma; Headache; Unspecified Heart Failure (CMS/HCC) Social History Tobacco Use Types Packs/Day Years Used Date Smoking Tobacco: Never Assessed Sex and Gender Information Value Date Recorded Sex Assigned at Not on file Legal Sex Male 6:16 AM SALES RECRUITER Gender Identity Not on file Sexual Orientation [...] Unspecified asthma Headache(784.0) Headache Heart failure, unspecified documented in this encounter Care Teams Art Framing Manager Relationship Specialty Start Date End Date Marsha Turner MD [address] [place] [address] PCP - General Internal Medicine 05/31/12 documented as of this encounter
--- OUTSIDE RECORDS SUMMARY | 2024-12-18 13:35 | XMS_ITS | Encounter Summary ---
Author Organization [facility] Address [address] [place] [address] Care Team Providers Care Incinerator Plant Supervisor Name Role Phone Marsha Turner MD Primary Care Provider +1- [phone] Encounter Details Date Type Department Care Team (Late st Contact Info) Description 06/14/2006 Outpatient Historical [facility] Imaging Services-[facility] [place] [address] [place] [address] Thomas Mack MD NO ADDRESS ON FILE Malignant Neoplasm of Prostate (CMS/HCC) (Primary Dx) Social History Tobacco Use Types Packs/Day Years Used Date Smoking Tobacco: Never Assessed Sex and Gender Information Value Date Recorded Sex Assigned at Not on file Legal Sex Male 6:16 AM PEDIATRIC 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
--- OUTSIDE RECORDS SUMMARY | 2024-12-18 13:35 | XMS_ITS | Encounter Summary ---
Author Organization [facility] Address [address] [place] [address] Care Team Providers Care Food Specialist Name Role Phone Marsha Turner MD Primary Care Provider +1- [phone] Encounter Details Date Type Department Care Team (Late st Contact Info) Description 06/14/2006 Outpatient Historical [facility] Imaging Services-[facility] [place] [address] [place] [address] Thomas Mack MD NO ADDRESS ON FILE Slow Urinary Stream (Primary Dx) Social History Tobacco Use Types Packs/Day Years Used Date Smoking Tobacco: Never Assessed Sex and Gender Information Value Date Recorded Sex Assigned at Not on file Legal Sex Male 6:16 AM SPONGE PACKER Gender Identity Not on file Sexual Orientation Not on file documented as of this encounter Plan of Treatment Not on file documented as of this encounter Visit Diagnoses Diagnosis Slow urinary stream- Primary Slowing of urinary stream documented in this encounter Care Teams Food Specialist Relationship Specialty Start Date End Date Marsha Turner MD [address] [place] [address] PCP - General Internal Medicine 05/31/12 documented as of this encounter
--- OUTSIDE RECORDS SUMMARY | 2024-12-18 13:35 | XMS_ITS | Encounter Summary ---
Author Organization [facility] Address [address] [place]: [place] [address] Care Team Providers Care Civil Structural Engineer Name Role Phone Marsha Turner MD Primary Care Provider +1- [phone] Encounter Details Date Type Department Care Team (Late st Contact Info) Description 07/11/1990 Inpatient Historical [facility] [address] [place] [address] Social History Tobacco Use Types Packs/Day Years Used Date Smoking Tobacco: Never Assessed Sex and Gender Information Value Date Recorded Sex Assigned at Not on file Legal Sex Male 6:16 AM MOLDER OPERATOR Gender Identity Not on file Sexual Orientation Not on file documented as of this encounter Plan of Treatment Not on file documented as of this encounter Visit Diagnoses Not on filedocumented in this encounter Care Teams Civil Structural Engineer Relationship Specialty Start Date End Date Marhsa Turner MD [address] [place] [address] PCP - General Internal Medicine 05/31/12 documented as of this encounter
--- OUTSIDE RECORDS SUMMARY | 2024-12-18 13:35 | XMS_ITS | Encounter Summary ---
Author Organization [facility] Address [address] [place] [address] Care Team Providers Care Dental Instrument Maker Name Role Phone Marsha Turner MD Primary Care Provider +1- [phone] Encounter Details Date Type Department Care Team (Late st Contact Info) Description 05/27/2006 Outpatient Historical [facility] Urology [facility] [address] [place] [address] Thomas Mack MD NO ADDRESS ON FILE Malig Thierno Prostate (Primary Dx); Slow Urinary Stream; Urinary Frequency Social History Tobacco Use Types Packs/Day Years Used Date Smoking Tobacco: Never Assessed Sex and Gender Information Value Date Recorded Sex Assigned at Not on file Legal Sex Male 6:16 AM TOWER HAND Gender Identity Not on file Sexual Orientation Not on file documented as of this encounter Plan of Treatment Not on file documented as of this encounter Visit Diagnoses Diagnosis Malig thierno prostate- Primary Malignant neoplasm of prostate Slow urinary stream Slowing of urinary stream Urinary frequency documented in this encounter Care Teams Dental Instrument Maker Relationship Specialty Start Date End Date Marsha Turner MD [address] [place], [place] [address] PCP - General Internal Medicine 05/31/12 documented as of this encounter
--- OUTSIDE RECORDS SUMMARY | 2024-12-18 13:35 | XMS_ITS | Encounter Summary ---
Author Organization [facility] Address [address] [place] [address] Care Team Providers Care Oil Pump Station Operator Chief Name Role Phone Marsha Turner MD Primary Care Provider +1- [phone] Encounter Details Date Type Department Care Team (Late st Contact Info) Description 12/22/2007 Outpatient Historical [facility] Pain [facility] [address] [place] [address] Kamar Leach MD NO ADDRESS ON FILE Social History Tobacco Use Types Packs/Day Years Used Date Smoking Tobacco: Never Assessed Sex and Gender Information Value Date Recorded Sex Assigned at Not on file Legal Sex Male 6:16 AM UPSETTER Gender Identity Not on file Sexual Orientation Not on file documented as of this encounter Plan of Treatment Not on file documented as of this encounter Visit Diagnoses Not on filedocumented in this encounter Care Teams Oil Pump Station Operator Chief Relationship Specialty Start Date End Date Marsha Turner MD [address] [place], [place] [address] PCP - General Internal Medicine 05/31/12 documented as of this encounter
--- OUTSIDE RECORDS SUMMARY | 2024-12-18 13:35 | XMS_ITS | Encounter Summary ---
Author Organization [facility] Address [address] [place] [address] Care Team Providers Care Drill Press Operator For Metal Name Role Phone Marsha Turner MD Primary Care Provider +1- [phone] Encounter Details Date Type Department Care Team (Late st Contact Info) Description 10/14/2007 Outpatient Historical [facility] Thomas Mack MD NO ADDRESS ON FILE Social History Tobacco Use Types Packs/Day Years Used Date Smoking Tobacco: Never Assessed Sex and Gender Information Value Date Recorded Sex Assigned at Not on file Legal Sex Male 6:16 AM SPOT SPRAYER Gender Identity Not on file Sexual Orientation Not on file documented as of this encounter Plan of Treatment Not on file documented as of this encounter Visit Diagnoses Not on filedocumented in this encounter Care Teams Drill Press Operator For Metal Relationship Specialty Start Date End Date Marsha Turner MD [address] [place], [place] [address] PCP - General Internal Medicine 05/31/12 documented as of this encounter
--- OUTSIDE RECORDS SUMMARY | 2024-12-18 13:35 | XMS_ITS | Encounter Summary ---
Author Organization [facility] Address [address] [place] [address] Care Team Providers Care Dentist Private Practice Name Role Phone Marsha Turner MD Primary Care Provider +1- [phone] Encounter Details Date Type Department Care Team (Latest Contact Info) Description 11/30/2005 Outpatient Historical [facility] Pulmonology-[facility] [place] [address] [place] [address] David Teresa MD NO ADDRESS ON FILE Cough (Primary Dx); Other Dyspnea and Respiratory Abnormality Social History Tobacco Use Types Packs/Day Years Used Date Smoking Tobacco: Never Assessed Sex and Gender Information Value Date Recorded Sex Assigned at Not on file Legal Sex Male 6:16 AM CERTIFIED TRAVEL COUNSELOR Gender Identity Not on file Sexual Orientation Not on file documented as of this encounter Plan of Treatment Not on file documented as of this encounter Visit Diagnoses Diagnosis Cough- Primary Other dyspnea and respiratory abnormality documented in this encounter Care Teams Dentist Private Practice Relationship Specialty Start Date End Date Marsha Turner MD [address] [place], [place] [address] PCP - General Internal Medicine 05/31/12 documented as of this encounter
--- OUTSIDE RECORDS SUMMARY | 2024-12-18 13:35 | XMS_ITS | Encounter Summary ---
Author Organization [facility] Address [address] [place] [address] Care Team Providers Care Risk Control Manager Name Role Phone Marsha Turner MD Primary Care Provider +9- [phone] Encounter Details Date Type Department Care Team (Latest Contact Info) Description 06/23/2005 Outpatient Historical [facility] Allergy and Asthma- [place] [address] [place] [address] Jalen Rutledge MD NO ADDRESS ON FILE Chronic Rhinitis (Primary Dx); Other Dyspnea and Respiratory Abnormality Social History Tobacco Use Types Packs/Day Years Used Date Smoking Tobacco: Never Assessed Sex and Gender Information Value Date Recorded Sex Assigned at Not on file Legal Sex Male 6:16 AM BALLET TEACHER Gender Identity Not on file Sexual Orientation Not on file documented as of this encounter Plan of Treatment Not on file documented as of this encounter Visit Diagnoses Diagnosis Chronic rhinitis- Primary Other dyspnea and respiratory abnormality documented in this encounter Care Teams Risk Control Manager Relationship Specialty Start Date End Date Marsha Turner MD [address] [place], [place] [address] PCP - General Internal Medicine 05/31/12 documented as of this encounter
--- OUTSIDE RECORDS SUMMARY | 2024-12-18 13:35 | XMS_ITS | Encounter Summary ---
Author Organization [facility] Address [address] [place] [address] Care Team Providers Care Credit Investigator Name Role Phone Marsha Turner MD Primary Care Provider +1- [phone] Encounter Details Date Type Department Care Team (Late st Contact Info) Description 08/27/2005 Outpatient Historical [facility] Urology [facility] [address] 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
--- OUTSIDE RECORDS SUMMARY | 2024-12-18 13:35 | XMS_ITS | Encounter Summary ---
Author Organization [facility] Address [address] [place] [address] Care Team Providers Care Cooker Tender Name Role Phone Marsha Turner MD Primary Care Provider +1- [phone] Encounter Details Date Type Department Care Team (Latest Contact Info) Description 05/14/2005 Outpatient Historical [facility] Imaging Services[facility] [place] [address] [place] [address] Abilio Bagley MD [address] [place] [address] ESOPHAGEAL REFLUX (Primary Dx) Social History Tobacco Use Types Packs/Day Years Used Date Smoking Tobacco: Never Assessed Sex and Gender Information Value Date Recorded Sex Assigned at Not on file Legal Sex Male 6:16 AM HEAD PUMPER Gender Identity Not on file Sexual Orientation Not on file documented as of this encounter Plan of Treatment Not on file documented as of this encounter Visit Diagnoses Diagnosis Esophageal reflux- Primary documented in this encounter Care Teams Cooker Tender Relationship Specialty Start Date End Date Marsha Turner MD [address] [place], [place] [address] PCP - General Internal Medicine 05/31/12 documented as of this encounter
--- OUTSIDE RECORDS SUMMARY | 2024-12-18 13:35 | XMS_ITS | Encounter Summary ---
Author Organization [facility] Address [address] [place] [address] Care Team Providers Care Pizza Chef Name Role Phone Marsha Turner MD Primary Care Provider +1- [phone] Encounter Details Date Type Department Care Team (Late st Contact Info) Description 12/08/2007 Outpatient Historical [facility] Dee Casillas MD [address] [address] Social History Tobacco Use Types Packs/Day Years Used Date Smoking Tobacco: Never Assessed Sex and Gender Information Value Date Recorded Sex Assigned at Not on file Legal Sex Male 6:16 AM BLOCK LAYER Gender Identity Not on file Sexual Orientation Not on file documented as of this encounter Plan of Treatment Not on file documented as of this encounter Visit Diagnoses Not on filedocumented in this encounter Care Teams Pizza Chef Relationship Specialty Start Date End Date Marsha Turner MD [address] [place] [address] PCP - General Internal Medicine 05/31/12 documented as of this encounter
--- OUTSIDE RECORDS SUMMARY | 2024-12-18 13:35 | XMS_ITS | Encounter Summary ---
Author Organization [facility] Address [address] [place] [address] Care Team Providers Care Policy Advisor Name Role Phone Marsha Turner MD Primary Care Provider +1- [phone] Encounter Details Date Type Department Care Team (Latest Contact Info) Description 08/26/2018 Ancillary Orders [facility] Spine Neurosurgery [address] [place] [address] Aliyah Lange, PA [address] [place] [address] Status post lumbar spinal fusion Social History Tobacco Use Types Packs/Day Years Used Date Smoking Tobacco: Never Smokeless Tobacco: Never Alcohol Use Standard Drinks/Week Comments No 0 (1 standard drink = 0.6 oz pur e alcohol) Sex and Gender Information Value Date Recorded Sex Assigned at Not on file Legal Sex Male 6:16 AM GUEST RELATIONS MANAGER Gender Identity Not on file Sexual [...] skin sean. IMPRESSION: 1. Interval posterior fusion. [id number] Narrative Procedure Note Chang Rai MD - [...] skin sean. IMPRESSION: 1. Interval posterior fusion. [id number] Aliyah MONTALVO DIAGNOSTIC IMAGING ORDERABLES Final Result documented in this encounter Visit Diagnoses Diagnosis Status post lumbar spinal fusion Arthrodesis status Status post lumbar spinal fusion Arthrodesis status documented in this encounter Care Teams Policy Advisor Relationship Specialty Start Date End Date Marsha Turner MD [address] [place] [address] PCP - General Internal Medicine 05/31/12 documented as of this encounter
--- OUTSIDE RECORDS SUMMARY | 2024-12-18 13:35 | XMS_ITS | Encounter Summary ---
Author Organization [facility] Address [address] [place] [address] Care Team Providers Care Storage Consultant Name Role Phone Marsha Turner MD Primary Care Provider +1- [phone] Encounter Details Date Type Department Care Team (Late st Contact Info) Description 06/14/2006 Outpatient Historical [facility] U[facility] [place] [place] [address] [place] [address] Thomas Mack MD NO ADDRESS ON FILE Malig Thierno Prostate (Primary Dx); Slow Urinary Stream Social History Tobacco Use Types Packs/Day Years Used Date Smoking Tobacco: Never Assessed Sex and Gender Information Value Date Recorded Sex Assigned at Not on file Legal Sex Male 6:16 AM INSPECTOR BALL POINTS Gender Identity Not on file Sexual Orientation Not on file documented as of this encounter Plan of Treatment Not on file documented as of this encounter Visit Diagnoses Diagnosis Malig thierno prostate- Primary Malignant neoplasm of prostate Slow urinary stream Slowing of urinary stream documented in this encounter Care Teams Storage Consultant Relationship Specialty Start Date End Date Marsha Turner MD [address] [place], [place] [id number] PCP - General Internal Medicine 05/31/12 documented as of this encounter
--- OUTSIDE RECORDS SUMMARY | 2024-12-18 13:35 | XMS_ITS | Encounter Summary ---
Author Organization [facility] Address [address] [place] [address] Care Team Providers Care Power Nut Runner Operator Name Role Phone Marsha Turner MD Primary Care Provider +1- [phone] Encounter Details Date Type Department Care Team (Late st Contact Info) Description 02/06/2008 Outpatient Historical [facility] DEFAULT DEPARTMENT Dee Casillas MD [address] [phone] Social History Tobacco Use Types Packs/Day Years Used Date Smoking Tobacco: Never Assessed Sex and Gender Information Value Date Recorded Sex Assigned at Not on file Legal Sex Male 6:16 AM GAUGE CHECKER Gender Identity Not on file Sexual Orientation Not on file documented as of this encounter Plan of Treatment Not on file documented as of this encounter Visit Diagnoses Not on filedocumented in this encounter Care Teams Power Nut Runner Operator Relationship Specialty Start Date End Date Marsha Turner MD [address] [place] [address] PCP - General Internal Medicine 05/31/12 documented as of this encounter
--- OUTSIDE RECORDS SUMMARY | 2024-12-18 13:35 | XMS_ITS | Encounter Summary ---
Author Organization [facility] Address [address] [place] [address] Care Team Providers Care Greeting Card Writer Name Role Phone Marsha Turner MD Primary Care Provider +1- [phone] Encounter Details Date Type Department Care Team (Late st Contact Info) Description 09/23/2005 Outpatient Historical [facility] Imaging Services-[facility] [place] [address] [place] [address] Thomas Mack MD NO ADDRESS ON FILE Bilat Ing Hernia (Primary Dx) Social History Tobacco Use Types Packs/Day Years Used Date Smoking Tobacco: Never Assessed Sex and Gender Information Value Date Recorded Sex Assigned at Not on file Legal Sex Male 6:16 AM SUPERVISOR DOG LICENSE OFFICER Gender Identity Not on file Sexual Orientation Not on file documented as of this encounter Plan of Treatment Not on file documented as of this encounter Visit Diagnoses Diagnosis Inguinal hernia without mention of obstruction or gangrene, bilateral, (not specified as recurrent)- Primary documented in this encounter Care Teams Greeting Card Writer Relationship Specialty Start Date End Date Marsha Turner MD [address] [place] [address] PCP - General Internal Medicine 05/31/12 documented as of this encounter
--- OUTSIDE RECORDS SUMMARY | 2024-12-18 13:35 | XMS_ITS | Encounter Summary ---
Author Organization [facility] Address [address] [place] [address] Care Team Providers Care Storage Worker Name Role Phone Marsha Turner MD Primary Care Provider +1- [phone] Encounter Details Date Type Department Care Team (Late st Contact Info) Description 07/25/2007 Outpatient [facility] [address] [address] [facility] [address] [place] [address] Dequan Tellez MD NO ADDRESS ON FILE Unilat Ing Hernia Social History Tobacco Use Types Packs/Day Years Used Date Smoking Tobacco: Never Assessed Sex and Gender Information Value Date Recorded Sex Assigned at Not on file Legal Sex Male 6:16 AM CUSTOMER FACILITIES SUPERVISOR Gender Identity Not on file Sexual Orientation Not on file documented as of this encounter Plan of Treatment Not on file documented as of this encounter Visit Diagnoses Diagnosis Inguinal hernia without mention of obstruction or gangrene, unilateral or unspecified, (not specified as recurrent) documented in this encounter Care Teams Storage Worker Relationship Specialty Start Date End Date Marsha Turner MD [address] [place] [address] PCP - General Internal Medicine 05/31/12 documented as of this encounter
--- OUTSIDE RECORDS SUMMARY | 2024-12-18 13:35 | XMS_ITS | Encounter Summary ---
Author Organization [facility] Address [address] [place] [address] Care Team Providers Care Deburrer Name Role Phone Marsha Turner MD Primary Care Provider +1- [phone] Encounter Details Date Type Department Care Team (Latest Contact Info) Description 06/18/2006 Outpatient Historical [facility] Endoscopy [address] [place] [address] Abilio Bagley MD [address] [place] [address] Chronic Pancreatitis (CMS/HCC) (Primary Dx) Social History Tobacco Use Types Packs/Day Years Used Date Smoking Tobacco: Never Assessed Sex and Gender Information Value Date Recorded Sex Assigned at Not on file Legal Sex Male 6:16 AM QUEBRACHO TANNER Gender Identity Not on file Sexual Orientation Not on file documented as of this encounter Plan of Treatment Not on file documented as of this encounter Visit Diagnoses Diagnosis Chronic pancreatitis (CMS/HCC)- Primary Chronic pancreatitis documented in this encounter Care Teams Deburrer Relationship Specialty Start Date End Date Marsha Turner MD [address] [place] [address] PCP - General Internal Medicine 05/31/12 documented as of this encounter
--- OUTSIDE RECORDS SUMMARY | 2024-12-18 13:36 | XMS_ITS | Encounter Summary ---
Author Organization [facility] Address [address] [place] [address] Care Team Providers Care Trimmer Press Clippings Name Role Phone Marsha Turner MD Primary Care Provider +1- [phone] Encounter Details Date Type Department Care Team (Latest Contact Info) Description 09/28/2000 Outpatient Historical [facility] [address] [place] [address] Lakhwinder Mahmood MD Nonspecific abnormal results of liver function study (Primary Dx) Social History Tobacco Use Types Packs/Day Years Used Date Smoking Tobacco: Never Assessed Sex and Gender Information Value Date Recorded Sex Assigned at Not on file Legal Sex Male 6:16 AM INSPECTOR METAL FABRICATING Gender Identity Not on file Sexual Orientation Not on file documented as of this encounter Plan of Treatment Not on file documented as of this encounter Visit Diagnoses Diagnosis Nonspecific abnormal results of liver function study- Primary documented in this encounter Care Teams Trimmer Press Clippings Relationship Specialty Start Date End Date Marsha Turner MD [address] [place], [place] [id number] PCP - General Internal Medicine 05/31/12 documented as of this encounter
--- OUTSIDE RECORDS SUMMARY | 2024-12-18 13:36 | XMS_ITS | Encounter Summary ---
Author Organization [facility] Address [address] [place] [address] Care Team Providers Care Funeral Prearrangement Counselor Name Role Phone Marsha Turner MD Primary Care Provider +1- [phone] Encounter Details Date Type Department Care Team (Late st Contact Info) Description 03/05/2008 Outpatient Historical [facility] DEFAULT DEPARTMENT Dee Casillas MD [address] [phone] Social History Tobacco Use Types Packs/Day Years Used Date Smoking Tobacco: Never Assessed Sex and Gender Information Value Date Recorded Sex Assigned at Not on file Legal Sex Male 6:16 AM BRASS MOLDER HELPER Gender Identity Not on file Sexual Orientation Not on file documented as of this encounter Plan of Treatment Not on file documented as of this encounter Visit Diagnoses Not on filedocumented in this encounter Care Teams Funeral Prearrangement Counselor Relationship Specialty Start Date End Date Marsha Turner MD [address] [place] [address] PCP - General Internal Medicine 05/31/12 documented as of this encounter
--- OUTSIDE RECORDS SUMMARY | 2024-12-18 13:36 | XMS_ITS | Encounter Summary ---
Author Organization [facility] Address [address] [place] [address] Care Team Providers Care Deaf Teacher Name Role Phone Marsha Turner MD Primary Care Provider +1- [phone] Encounter Details Date Type Department Care Team (Latest Contact Info) Description 12/31/2003 Outpatient Historical [facility] Cardiac Rehabilitation Counsellor [address] [place] [address] Hosea Wilson MD [address] [facility] [address] [place] [address] CORON ATHEROSCL [place] CORON VESSEL (Primary Dx) Social History Tobacco Use Types Packs/Day Years Used Date Smoking Tobacco: Never Assessed Sex and Gender Information Value Date Recorded Sex Assigned at Not on file Legal Sex Male 6:16 AM PATIENT SERVICE COORDINATOR Gender Identity Not on file Sexual Orientation Not on file documented as of this encounter Plan of Treatment Not on file documented as of this encounter Visit Diagnoses Diagnosis Coronary atherosclerosis of [place] coronary artery- Primary documented in this encounter Care Teams Deaf Teacher Relationship Specialty Start Date End Date Marsha Turner MD [address] [place] [address] PCP - General Internal Medicine 05/31/12 documented as of this encounter
--- OUTSIDE RECORDS SUMMARY | 2024-12-18 13:36 | XMS_ITS | Encounter Summary ---
Author Organization [facility] Address [address] [place] [address] Care Team Providers Care Electrical/Instrument Technician Name Role Phone Marsha Turner MD Primary Care Provider +1- [phone] Encounter Details Date Type Department Care Team (Late st Contact Info) Description 10/16/2004 Outpatient Historical [facility] Urology- [address] Entrance B, 3rd [place] [address] Thomas Mack MD NO ADDRESS ON FILE Malig emmett prostate (Primary Dx) Social History Tobacco Use Types Packs/Day Years Used Date Smoking Tobacco: Never Assessed Sex and Gender Information Value Date Recorded Sex Assigned at Not on file Legal Sex Male 6:16 AM ROOF TILER Gender Identity Not on file Sexual Orientation Not on file documented as of this encounter Plan of Treatment Not on file documented as of this encounter Visit Diagnoses Diagnosis Malig emmett prostate- Primary Malignant neoplasm of prostate documented in this encounter Care Teams Electrical/Instrument Technician Relationship Specialty Start Date End Date Marsha Turner MD [address] [place] [address] PCP - General Internal Medicine 05/31/12 documented as of this encounter
--- OUTSIDE RECORDS SUMMARY | 2024-12-18 13:36 | XMS_ITS | Encounter Summary ---
Author Organization [facility] Address [address] [facility] [address] [place]: [place] [address] Care Team Providers Care Squilgeer Name Role Phone Marsha Turner MD Primary Care Provider +1- [phone] Encounter Details Date Type Department Care Team (Latest Contact Info) Description 01/20/1990 Emergency Social History Tobacco Use Types Packs/Day Years Used Date Smoking Tobacco: Never Assessed Sex and Gender Information Value Date Recorded Sex Assigned at Not on file Legal Sex Male 6:16 AM WASTE SPECIALIST Gender Identity Not on file Sexual Orientation Not on file documented as of this encounter Plan of Treatment Not on file documented as of this encounter Visit Diagnoses Not on filedocumented in this encounter Care Teams Squilgeer Relationship Specialty Start Date End Date Marsha Turner MD [address] [place], [place] [address] PCP - General Internal Medicine 05/31/12 documented as of this encounter
--- OUTSIDE RECORDS SUMMARY | 2024-12-18 13:36 | XMS_ITS | Encounter Summary ---
Author Organization [facility] Address [address] [place] [address] Care Team Providers Care Sail Finisher Hand Name Role Phone Marsha Turner MD Primary Care Provider +1- [phone] Encounter Details Date Type Department Care Team (Late st Contact Info) Description 03/05/2008 Outpatient Historical [facility] PreAdmission [place] [address] [place] [address] Dee Casillas MD [address] [address] Social History Tobacco Use Types Packs/Day Years Used Date Smoking Tobacco: Never Assessed Sex and Gender Information Value Date Recorded Sex Assigned at Not on file Legal Sex Male 6:16 AM HEALTHCARE ANALYST Gender Identity Not on file Sexual Orientation Not on file documented as of this encounter Plan of Treatment Not on file documented as of this encounter Procedures Procedure Name Priority Date/Time Associated Diagnosis Comments XR CHEST PA OR AP 1 VW Routine 8 5:03 PM HEALTHCARE ANALYST URINALYSIS W/REFLEX MICROSCOPIC Stat 03/05/2008 4:54 PM HEALTHCARE ANALYST ABORH TYPING Stat 03/05/2008 4:20 PM HEALTHCARE ANALYST CBC WITH DIFFERENTIAL Stat 03/05/2008 4:20 PM HEALTHCARE ANALYST PROTIME-INR Stat 03/05/2008 4:20 PM HEALTHCARE ANALYST BLOOD BANK ANTIBODY SCREEN Stat 03/05/2008 4:20 PM HEALTHCARE ANALYST COMPREHENSIVE METABOLIC PANEL Stat 03/05/2008 4:20 PM HEALTHCARE ANALYST documented in this encounter Results * XR CHEST PA OR AP (03/05/2008 5:03 PM HEALTHCARE ANALYST) Anatomical Region Laterality Modality Chest Other 03/05/2008 5:03 PM HEALTHCARE ANALYST Narrative 03/06/2008 3:36 PM HEALTHCARE ANALYST Exam: Chest - PA Date/Time of Exam: [...] Result * (ABNORMAL) URINALYSIS (03/05/2008 4:54 PM HEALTHCARE ANALYST) LEUKOCYTE ESTERASE UA NEGATIVE NEGATIVE [facility] KETONES UA NEGATIVE NEGATIVE [facility] MICRO EXAM No No [facility] COLOR UA Yellow Straw [facility] PROTEIN UA NEGATIVE NEGATIVE [facility] BLOOD UA NEGATIVE NEGATIVE [facility] NITRITE UA NEGATIVE NEGATIVE [facility] UROBILINOGEN UA 1.0(A) 0.2 [facility] CLARITY UA Clear Clear [facility] SPECIFIC GRAVITY UA 1.010 <=1.005 [facility] GLUCOSE UA NEGATIVE NEGATIVE [facility] PH UA 7.0 5.0 - 9.0 [facility] BILIRUBIN UA NEGATIVE NEGATIVE [facility] Urine specimen (specimen) 03/05/2008 4:54 PM HEALTHCARE ANALYST 03/05/2008 4:54 PM HEALTHCARE ANALYST us Dee Casillas MD URINE ORDERABLES Final Result Performing Organization Address City/State/[facility] Co de Phone Number INTERFACE SYSTEM Refer to clinic/hospital department [facility] CLIA# [id number] [address] [place] [address] * (ABNORMAL) CBC WITH DIFFERENTIAL (03/05/2008 4:20 PM HEALTHCARE ANALYST) HEMOGLOBIN 11.6(L) 14.0 - 18.0 g/dL [facility] LYMPHOCYTES 15.1(L) 24.0 - 44.0 % [facility] LYMPHOCYTE ABSOLUTE 1.0(L) 1.2 - 4.0 K/ul [facility] WBC 6.4 4.8 - 10.8 K/ul [facility] MCH 30.4 27.0 - 34.[address] [facility] MPV 9.1 8.9 - 12.[address] [facility] BASOPHILS ABSOLUTE 0.0 0.0 - 0.2 K/ul [facility] BASOPHILS 0.5 0.0 - 1.0 % [facility] MCHC 33.8 30.0 - 35.0 g/dL [facility] HEMATOCRIT 34.3(L) 41.0 - 53.0 % [facility] RDW 13.9 11.0 - 14.5 % [facility] MONOCYTE ABSOLUTE 0.6 0.1 - 0.6 K/ul [facility] MONOCYTES 9.6 2.0 - 10.0 % [facility] RBC 3.82(L) 4.60 - 6.20 Mil/ul [facility] NEUTROPHIL ABSOLUTE 4.6 2.0 - 8.0 K/ul [facility] NEUTROPHILS 72.9 42.2 - 75.2 % [facility] MCV 89.8 84.0 - 103.[address] [facility] EOSINOPHILS 1.9 0.0 - 7.0 % [facility] PLATELETS 221 140 - 440 K/ul [facility] EOSINOPHIL ABSOLUTE 0.1 0.0 - 0.7 K/ul [facility] Blood specimen (specimen) 03/05/2008 4:20 PM HEALTHCARE ANALYST 03/05/2008 4:30 PM HEALTHCARE ANALYST us Dee Casillas MD HEMATOLOGY ORDERABLES Final Resu lt INTERFACE SYSTEM Refer to clinic/hospital department [facility]# [id number] [address] [place] [address] * PROTIME-INR (03/05/2008 4:20 PM HEALTHCARE ANALYST) INR 1.0 [facility] Comment: Expected Values for INR: DVT/PE Goal INR 2.5; range 2.0 - 3.0 Valve Replacement Tissue Goal INR 2.5; range 2.0 - 3.0 Mechanical Goal INR 3.0; range 2.5 - 3.5 POST-OH Goal INR 2.5; range 2.0 - 3.0 or Goal 3.0; range 2.5 - 3.5 Atrial Fibrillation Goal INR 2.5; range 2.0 - 3.0 Ischemic Stroke Goal INR 2.5; range 2.0 - 3.0 For additional information see Guidelines for Anticoagulation available from the pharmacy Nichelle Mike [phone] PROTIME 14.0 12.8 - 15.[address] [facility] Comment:As of 2007 not e change in normal range. Blood specimen (specimen) 03/05/2008 4:20 PM HEALTHCARE ANALYST 03/05/2008 4:30 PM HEALTHCARE ANALYST us Dee Casillas MD HEMATOLOGY ORDERABLES Final Resu lt Performing Organization Address [facility] Phone Number INTERFACE SYSTEM Refer to clinic/hospital department [facility] CLIA# [id number] [address] [place] [address] * ANTIBODY SCREEN (03/05/2008 4:20 PM HEALTHCARE ANALYST) ANTIBODY SCREEN Negative [facility] Blood specimen (specimen) 03/05/2008 4:20 PM HEALTHCARE ANALYST 03/05/2008 4:30 PM HEALTHCARE ANALYST Dee Casillas MD BLOOD BANK ORDERABLES Final Resu lt Performing Organization Address [facility] Phone Number INTERFACE SYSTEM Refer to clinic/hospital department [facility] CLIA# [id number] [address] [place] [address] * ABORH TYPING (03/05/2008 4:20 PM HEALTHCARE ANALYST) ABO/RH TYPE A Positive [facility] Blood specimen (specimen) 03/05/2008 4:20 PM HEALTHCARE ANALYST 03/05/2008 4:30 PM HEALTHCARE ANALYST Dee Casillas MD BLOOD BANK ORDERABLES Final Resu lt Performing Organization Address [facility] Phone Number INTERFACE SYSTEM Refer to clinic/[facility] department [facility] CLIA# [id number] [address] [place] [address] * (ABNORMAL) COMPREHENSIVE METABOLIC PANEL (03/05/2008 4:20 PM HEALTHCARE ANALYST) ALBUMIN 4.4 3.5 - 5.0 g/dL [facility] POTASSIUM 3.9 3.5 - 5.0 mEq/L [facility] GLOBULIN (CALC) 2.6 2.4 - 3.9 g/dL [facility] CREATININE 0.9 0.7 - 1.5 mg/dL [facility] CALCIUM 9.2 8.4 - 10.5 mg/dL [facility] OSMOLALITY, CALCULATED 289 275 - 295 mOsm/Kg [facility] ALT 17 4 - 36 IU/L [facility] GLUCOSE 118(H) 70 - 110 mg/dL [facility] CHLORIDE 108 95 - 110 mEq/L [facility] ALBUMIN/GLOBULIN RATIO 1.7 1.0 - 2.3 [facility] ALKALINE PHOSPHATASE 71 25 - 100 U/L [facility] SODIUM 141 136 - 145 mEq/L [facility] BILIRUBIN TOTAL 0.3 0.3 - 1.2 mg/dL [facility] TOTAL PROTEIN 7.0 6.3 - 8.2 g/dL [facility] BUN 9 9 - 20 mg/dL [facility] AST 16 8 - 33 U/L [facility] CO2 27 22 - 32 mmol/l [facility] ANION GAP 10 9 - 20 mEq/L [facility] Blood specimen (specimen) 03/05/2008 4:20 PM HEALTHCARE ANALYST 03/05/2008 4:30 PM HEALTHCARE ANALYST us Dee Casillas MD CHEMISTRY ORDERABLES Final Resul t INTERFACE SYSTEM Refer to clinic/hospital department [facility] CLIA# [id number] [facility] [place] [address] documented in this encounter Visit Diagnoses Not on filedocumented in this encounter Care Teams Sail Finisher Hand Relationship Specialty Start Date End Date Marsha Turner MD [address] [place] [address] PCP - General Internal Medicine 05/31/12 documented as of this encounter
--- OUTSIDE RECORDS SUMMARY | 2024-12-18 13:36 | XMS_ITS | Encounter Summary ---
Author Organization [facility] Address [address] [place] [address] Care Team Providers Care Coppersmith Helper Name Role Phone Marsha Turner MD Primary Care Provider +1- [phone] Encounter Details Date Type Department Care Team (Late st Contact Info) Description 09/26/2004 Outpatient Historical [facility] Urology- [address] Entrance B, 3rd [place] [address] Thomas Mack MD NO ADDRESS ON FILE Malig emmett prostate (Primary Dx) Social History Tobacco Use Types Packs/Day Years Used Date Smoking Tobacco: Never Assessed Sex and Gender Information Value Date Recorded Sex Assigned at Not on file Legal Sex Male 6:16 AM BAGGING SALVAGER Gender Identity Not on file Sexual Orientation Not on file documented as of this encounter Plan of Treatment Not on file documented as of this encounter Visit Diagnoses Diagnosis Malig emmett prostate- Primary Malignant neoplasm of prostate documented in this encounter Care Teams Coppersmith Helper Relationship Specialty Start Date End Date Marsha Turner MD [address] [place] [address] PCP - General Internal Medicine 05/31/12 documented as of this encounter
--- OUTSIDE RECORDS SUMMARY | 2024-12-18 13:36 | XMS_ITS | Encounter Summary ---
Author Organization [facility] Address [address] [place] [address] Care Team Providers Care Extra Hand Name Role Phone Marsha Turner MD Primary Care Provider +1- [phone] Encounter Details Date Type Department Care Team (Late st Contact Info) Description 03/05/2008 Outpatient [facility] [address] [facility] [address] [place] [address] Aaron Ayala MD [address] [place] [address] Malig Thierno Skin Face NEC Social History Tobacco Use Types Packs/Day Years Used Date Smoking Tobacco: Never Assessed Sex and Gender Information Value Date Recorded Sex Assigned at Not on file Legal Sex Male 6:16 AM SALES ANALYTICS MANAGER Gender Identity Not on file Sexual Orientation Not on file documented as of this encounter Progress Notes * Elenita Lora - 03/07/2008 8:42 AM CSTQuick Note: Pt's notified of results, adq tx. Recheck 4 months. S ANALYTICS MANAGER documented in this encounter Plan of Treatment Not on file documented as of this encounter Procedures Procedure Name Priority Date/Time Associated Diagnosis Comments PATHOLOGY Routine 03/05/2008 1:19 PM SALES ANALYTICS MANAGER documented in this encounter Results * PATHOLOGY (03/05/2008 1:19 PM SALES ANALYTICS MANAGER) PATHOLOGY/CYT OLOGY REPORT [facility]ology Dept [facility] [address] Patient: LOGAN MARINELLI Accn No: [id number] Collected: 03/05/2008 1:19:00 PM DERMATOPATHOLOGY FINAL REPORT [...] in cassette A1. 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 There are some keratinocytes with atypical nuclear features, and there are scattered mitotic figures. 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
--- OUTSIDE RECORDS SUMMARY | 2024-12-18 13:36 | XMS_ITS | Encounter Summary ---
Author Organization [facility] Address [address] [place] [address] Care Team Providers Care Supervisor Heading Name Role Phone Marsha Turner MD Primary Care Provider +1- [phone] Encounter Details Date Type Department Care Team (Late st Contact Info) Description 08/26/2004 Outpatient Historical [facility] ([facility]) Urology- [address] Entrance B, 3rd [place] [address] Thomas Mack MD NO ADDRESS ON FILE CHRONIC PROSTATITIS (Primary Dx); FAMILY HX-PROSTATIC MALIGNANCY Social History Tobacco Use Types Packs/Day Years Used Date Smoking Tobacco: Never Assessed Sex and Gender Information Value Date Recorded Sex Assigned at Not on file Legal Sex Male 6:16 AM GASFITTER Gender Identity Not on file Sexual Orientation Not on file documented as of this encounter Plan of Treatment Not on file documented as of this encounter Visit Diagnoses Diagnosis Chronic prostatitis- Primary Family history of malignant neoplasm of prostate documented in this encounter Care Teams Supervisor Heading Relationship Specialty Start Date End Date Marsha Turner MD [address] [place] [address] PCP - General Internal Medicine 05/31/12 documented as of this encounter
--- OUTSIDE RECORDS SUMMARY | 2024-12-18 13:36 | XMS_ITS | Encounter Summary ---
Author Organization [facility] Address [address] [place] [address] Care Team Providers Care Stamps Or Coins Salesperson Name Role Phone Marsha Turner MD Primary Care Provider +1- [phone] Encounter Details Date Type Department Care Team (Late st Contact Info) Description 12/09/2004 Outpatient Historical [facility] Urology- [address] Entrance B, 3rd [place] [phone] Thomas Mack MD NO ADDRESS ON FILE [place] prostate (Primary Dx); DYSURIA; Slow urinary stream Social History Tobacco Use Types Packs/Day Years Used Date Smoking Tobacco: Never Assessed Sex and Gender Information Value Date Recorded Sex Assigned at Not on file Legal Sex Male 6:16 AM UI PROGRAMMER Gender Identity Not on file Sexual Orientation Not on file documented as of this encounter Plan of Treatment Not on file documented as of this encounter Visit Diagnoses Diagnosis Malig emmett prostate- Primary Malignant neoplasm of prostate Dysuria Slow urinary stream Slowing of urinary stream documented in this encounter Care Teams Stamps Or Coins Salesperson Relationship Specialty Start Date End Date Marsha Turner MD [address] [place] [address] PCP - General Internal Medicine 05/31/12 documented as of this encounter
--- OUTSIDE RECORDS SUMMARY | 2024-12-18 13:36 | XMS_ITS | Encounter Summary ---
Author Organization [facility] Address [address] [place] [address] Care Team Providers Care Analytics Specialist Name Role Phone Marsha Turner MD Primary Care Provider +1- [phone] Encounter Details Date Type Department Care Team (Latest Contact Info) Description 03/11/1998 [facility]patient Historical [facility] [address] [place] [phone] Giovanni Corrigan MD [address] [place] [id number] Coronary atherosclerosis of [place] coronary artery (Primary Dx) Social History Tobacco Use Types Packs/Day Years Used Date Smoking Tobacco: Never Assessed Sex and Gender Information Value Date Recorded Sex Assigned at Not on file Legal Sex Male 6:16 AM DRIVER ENGINEER Gender Identity Not on file Sexual Orientation Not on file documented as of this encounter Plan of Treatment Not on file documented as of this encounter Visit Diagnoses Diagnosis Coronary atherosclerosis of [place] coronary artery- Primary documented in this encounter Care Teams Analytics Specialist Relationship Specialty Start Date End Date Marsha Turner MD [address] [place] [address] PCP - General Internal Medicine 05/31/12 documented as of this encounter
--- OUTSIDE RECORDS SUMMARY | 2024-12-18 13:36 | XMS_ITS | Encounter Summary ---
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 Gender Identity Not on file Sexual Orientation Not on file documented as of this encounter Plan of Treatment Not on file documented as of this encounter Procedures Procedure Name Priority Date/Time Associated Diagnosis Comments PSA MEDICARE SCREEN Routine 05/28/2004 8 :26 AM RESIDENTIAL PEST CONTROL TECHNICIAN URINALYSIS MICROSCOPY ONLY Routine 05/27/2004 8:51 PM RESIDENTIAL PEST CONTROL TECHNICIAN URINALYSIS W/REFLEX MICROSCOPIC Routine 05/27/2004 8:51 PM RESIDENTIAL PEST CONTROL TECHNICIAN CBC WITH DIFFERENTIAL Routine 05/26/2004 5:07 AM RESIDENTIAL PEST CONTROL TECHNICIAN TSH Routine 05/26/2004 5:07 AM RESIDENTIAL PEST CONTROL TECHNICIAN LIPID PANEL Routine 05/26/2004 5:07 AM RESIDENTIAL PEST CONTROL TECHNICIAN BASIC METABOLIC PANEL Routine 05/26/2004 5:07 AM RESIDENTIAL PEST CONTROL TECHNICIAN URINALYSIS MICROSCOPY ONLY Routine 05/25/2004 2:02 PM RESIDENTIAL PEST CONTROL TECHNICIAN URINALYSIS W/REFLEX MICROSCOPIC Routine 05/25/2004 2:02 PM RESIDENTIAL PEST CONTROL TECHNICIAN PTT Routine 05/25/2004 5:41 AM RESIDENTIAL PEST CONTROL TECHNICIAN CBC WITHOUT DIFFERENTIAL Routine 05/25/2004 5:41 AM RESIDENTIAL PEST CONTROL TECHNICIAN CARDIAC ENZYMES Routine 05/25/2004 3:42 AM RESIDENTIAL PEST CONTROL TECHNICIAN CARDIAC ENZYMES Routine 05/24/2004 9:06 PM RESIDENTIAL PEST CONTROL TECHNICIAN URINALYSIS MICROSCOPY ONLY Routine 05/24/2004 5:22 PM RESIDENTIAL PEST CONTROL TECHNICIAN URINALYSIS W/REFLEX MICROSCOPIC Routine 05/24/2004 5:22 PM RESIDENTIAL PEST CONTROL TECHNICIAN CARDIAC ENZYMES Routine 05/24/2004 3:18 PM RESIDENTIAL PEST CONTROL TECHNICIAN PTT Routine 05/24/2004 3:18 PM RESIDENTIAL PEST CONTROL TECHNICIAN DRUG SCREEN, URINE Routine 05/24/2004 10 :52 AM RESIDENTIAL PEST CONTROL TECHNICIAN D-DIMER Routine 05/24/2004 9:30 AM RESIDENTIAL PEST CONTROL TECHNICIAN documented in this encounter Results * PSA MEDICARE SCREEN (05/28/2004 8:26 AM RESIDENTIAL PEST CONTROL TECHNICIAN) PSA 2.8 0.0 - 4.0 ng/mL INTERFACE SYSTEM Comment:Results for patients receiving treatment must be evaluated individually by the physician. 05/28/2004 8:26 AM RESIDENTIAL PEST CONTROL TECHNICIAN us Marj Hardy MD CHEMISTRY ORDERABLES COM Final Result INTERFACE SYSTEM Refer to clinic/hospital department * (ABNORMAL) URINALYSIS (05/27/2004 8:51 PM RESIDENTIAL PEST CONTROL TECHNICIAN) COLOR UA Yellow Straw INTERFACE SYSTEM CLARITY [...] Yes(A) No INTERFACE SYSTEM 05/27/2004 8:51 PM RESIDENTIAL PEST CONTROL TECHNICIAN Thomas Mack MD URINE ORDERABLES Final Result Performing Organization Address City/[facility] Co de Phone Number INTERFACE SYSTEM Refer to clinic/hospital department * URINALYSIS MICROSCOPY ONLY (05/27/2004 8:51 PM RESIDENTIAL PEST CONTROL TECHNICIAN) WBC URINE None Seen 0 - 2 INTERFACE SYSTEM RBC UA None Seen 0 - 2 INTERFACE SYSTEM HYALINE CAST 0-2 0 - 2 INTERFA CE SYSTEM 05/27/2004 8:51 PM RESIDENTIAL PEST CONTROL TECHNICIAN Thomas Mack MD URINE ORDERABLES Final Result Performing Organization Address [facility] Phone Number INTERFACE SYSTEM Refer to clinic/hospital department * (ABNORMAL) CBC WITH DIFFERENTIAL (05/26/2004 5:07 AM RESIDENTIAL PEST CONTROL TECHNICIAN) WBC 3.7(L) 4.8 - 10.8 K/ul INTERFACE [...] 0.2 K/ul INTERFACE SYSTEM 05/26/2004 5:07 AM RESIDENTIAL PEST CONTROL TECHNICIAN Marj Hardy MD HEMATOLOGY ORDERABLES Final Re sult Performing Organization Address [facility] de Phone Number INTERFACE SYSTEM Refer to clinic/hospital department * (ABNORMAL) TSH (05/26/2004 5:07 AM RESIDENTIAL PEST CONTROL TECHNICIAN) TSH <0.03(L) 0.49 - 4.67 uIU/ml INTERFACE SYSTEM 05/26/2004 5:07 AM RESIDENTIAL PEST CONTROL TECHNICIAN Marj Hardy MD CHEMISTRY ORDERABLES Final Res ult Performing Organization Address [facility] Co de Phone Number INTERFACE SYSTEM Refer to clinic/hospital department * (ABNORMAL) BASIC METABOLIC PANEL (05/26/2004 5:07 AM RESIDENTIAL PEST CONTROL TECHNICIAN) GLUCOSE 167(H) 70 - 110 mg/dL INTERFACE [...] 10.5 mg/dL INTERFACE SYSTEM 05/26/2004 5:07 AM RESIDENTIAL PEST CONTROL TECHNICIAN Result [facility] Marj Hardy MD CHEMISTRY ORDERABLES Final Res ult Performing Organization Address [facility] Phone Number INTERFACE SYSTEM Refer to clinic/hospital department * (ABNORMAL) LIPID PANEL (05/26/2004 5:07 AM RESIDENTIAL PEST CONTROL TECHNICIAN) CHOLESTEROL 120 75 - 200 mg/dL INTERFACE SYSTEM TRIGLYCERIDE 66 0 - 200 mg/dL INTERFACE SYSTEM CALCULATED TOTAL CHOLESTEROL TO HDL RATIO 2.93(L) 3.43 - 4.97 INTERFACE SYSTEM HDL 41 40 - 60 mg/dL INTERFACE SYSTEM LDL CALCULATED 66 0 - 130 mg/dL INTERFACE SYSTEM 05/26/2004 5:07 AM RESIDENTIAL PEST CONTROL TECHNICIAN Result [facility] Marj Hardy MD CHEMISTRY ORDERABLES Final Res ult Performing Organization Address [facility] Phone Number INTERFACE SYSTEM Refer to clinic/hospital department * (ABNORMAL) URINALYSIS (05/25/2004 2:02 PM RESIDENTIAL PEST CONTROL TECHNICIAN) COLOR UA Yellow Straw INTERFACE SYSTEM CLARITY [...] Yes(A) No INTERFACE SYSTEM 05/25/2004 2:02 PM RESIDENTIAL PEST CONTROL TECHNICIAN Result [facility] Marj Hardy MD URINE ORDERABLES Final Result Performing Organization Address [facility] Phone Number INTERFACE SYSTEM Refer to clinic/hospital department * (ABNORMAL) URINALYSIS MICROSCOPY ONLY (05/25/2004 2:02 PM RESIDENTIAL PEST CONTROL TECHNICIAN) WBC URINE 0-2 0 - 2 INTERFACE SYSTEM RBC UA 3-5(A) 0 - 2 INTERFACE SYSTEM HYALINE CAST None Seen 0 - 2 INTERFA CE SYSTEM BACTERIA UA None Seen None Seen INTERFAC E SYSTEM 05/25/2004 2:02 PM RESIDENTIAL PEST CONTROL TECHNICIAN Marj Hardy MD URINE ORDERABLES Final Result Performing Organization Address [facility] de Phone Number INTERFACE SYSTEM Refer to clinic/hospital department * (ABNORMAL) PTT (05/25/2004 5:41 AM RESIDENTIAL PEST CONTROL TECHNICIAN) PTT 47.8(H) 24.3 - 37.5 Secs INTERFACE SYSTEM Comment:Therapeutic Range: 05/25/2004 5:41 AM RESIDENTIAL PEST CONTROL TECHNICIAN Marj Hardy MD HEMATOLOGY ORDERABLES Final Re sult Performing Organization Address [facility] de Phone Number INTERFACE SYSTEM Refer to clinic/hospital department * (ABNORMAL) CBC WITHOUT DIFFERENTIAL (05/25/2004 5:41 AM RESIDENTIAL PEST CONTROL TECHNICIAN) WBC 4.5(L) 4.8 - 10.8 K/ul INTERFACE [...] 0.2 K/ul INTERFACE SYSTEM 05/25/2004 5:41 AM RESIDENTIAL PEST CONTROL TECHNICIAN Result Jennifer Hardy MD HEMATOLOGY ORDERABLES Final Re sult Performing Organization Address [facility] Co de Phone Number INTERFACE SYSTEM Refer to clinic/hospital department * CARDIAC ENZYMES (05/25/2004 3:42 AM RESIDENTIAL PEST CONTROL TECHNICIAN) CKMB 0.7 0.0 - 5.5 ng/mL INTERFACE SYSTEM TROPONIN I 0.0 0.0 - 1.5 ng/mL INTERFACE SYSTEM Comment: Expected Range: Normal 0.0 - 1.5 ng/ml Borderline 1.6 - 4.4 ng/ml Positive > = 4.5 ng/ml 05/25/2004 3:42 AM RESIDENTIAL PEST CONTROL TECHNICIAN Result Jennifer Hardy MD CHEMISTRY ORDERABLES Final Res ult Performing Organization Address [facility] Co de Phone Number INTERFACE SYSTEM Refer to clinic/hospital department * CARDIAC ENZYMES (05/24/2004 9:06 PM RESIDENTIAL PEST CONTROL TECHNICIAN) CKMB <0.7 0.0 - 5.5 ng/mL INTERFACE SYSTEM TROPONIN I 0.0 0.0 - 1.5 ng/mL INTERFACE SYSTEM Comment: Expected Range: Normal 0.0 - 1.5 ng/ml Borderline 1.6 - 4.4 ng/ml Positive > = 4.5 ng/ml 05/24/2004 9:06 PM RESIDENTIAL PEST CONTROL TECHNICIAN Result Jennifer Hardy MD CHEMISTRY ORDERABLES Final Res ult Performing Organization Address [facility] Phone Number INTERFACE SYSTEM Refer to clinic/hospital department * (ABNORMAL) URINALYSIS (05/24/2004 5:22 PM RESIDENTIAL PEST CONTROL TECHNICIAN) COLOR UA Yellow Straw INTERFACE SYSTEM CLARITY [...] Yes(A) No INTERFACE SYSTEM 05/24/2004 5:22 PM RESIDENTIAL PEST CONTROL TECHNICIAN Marj Hardy MD URINE ORDERABLES Final Result Performing Organization Address [facility] Phone Number INTERFACE SYSTEM Refer to clinic/hospital department * (ABNORMAL) URINALYSIS MICROSCOPY ONLY (05/24/2004 5:22 PM RESIDENTIAL PEST CONTROL TECHNICIAN) WBC URINE 0-2 0 - 2 INTERFACE SYSTEM RBC UA >80(A) 0 - 2 INTERFACE SYSTEM HYALINE CAST None Seen 0 - 2 INTERFA CE SYSTEM BACTERIA UA None Seen None Seen INTERFAC E SYSTEM 05/24/2004 5:22 PM RESIDENTIAL PEST CONTROL TECHNICIAN Marj Hardy MD URINE ORDERABLES Final Result Performing Organization Address [facility] Phone Number INTERFACE SYSTEM Refer to clinic/hospital department * CARDIAC ENZYMES (05/24/2004 3:18 PM RESIDENTIAL PEST CONTROL TECHNICIAN) CKMB 0.7 0.0 - 5.5 ng/mL INTERFACE SYSTEM TROPONIN I 0.0 0.0 - 1.5 ng/mL INTERFACE SYSTEM Comment: Expected Range: Normal 0.0 - 1.5 ng/ml Borderline 1.6 - 4.4 ng/ml Positive > = 4.5 ng/ml 05/24/2004 3:18 PM RESIDENTIAL PEST CONTROL TECHNICIAN Result [facility] Marj Hardy MD CHEMISTRY ORDERABLES Final Res ult Performing Organization Address [facility] Phone Number INTERFACE SYSTEM Refer to clinic/hospital department * (ABNORMAL) PTT (05/24/2004 3:18 PM RESIDENTIAL PEST CONTROL TECHNICIAN) PTT 75.3(H) 24.3 - 37.5 Secs INTERFACE SYSTEM Comment:Therapeutic Range: 05/24/2004 3:18 PM RESIDENTIAL PEST CONTROL TECHNICIAN Result [facility] Marj Hardy MD HEMATOLOGY ORDERABLES Final Re sult Performing Organization Address [facility] Phone Number INTERFACE SYSTEM Refer to clinic/hospital department * (ABNORMAL) DRUG SCREEN, URINE (05/24/2004 10:52 AM RESIDENTIAL PEST CONTROL TECHNICIAN) OPIATE QUAL, URINE Drug Positive(A) Drug Negative [...] Negative INTERFACE SYSTEM 05/24/2004 10:5 2 AM RESIDENTIAL PEST CONTROL TECHNICIAN Result Jennifer Hardy MD URINE ORDERABLES Final Result Performing Organization Address [facility] Phone Number INTERFACE SYSTEM Refer to clinic/hospital department * (ABNORMAL) D-DIMER (05/24/2004 9:30 AM RESIDENTIAL PEST CONTROL TECHNICIAN) D-DIMER QUANT 2.0(H) 0.0 - 0.5 mcg/mL INTERFACE SYSTEM 05/24/2004 9:30 AM RESIDENTIAL PEST CONTROL TECHNICIAN Result Jennifer Hardy MD HEMATOLOGY ORDERABLES Final Re sult Performing Organization Address [facility] de Phone Number INTERFACE SYSTEM Refer to clinic/hospital department documented in this encounter Visit Diagnoses Diagnosis Unspecified asthma(493.90)- Primary Unspecified asthma documented in this encounter Care Teams Counselling Psychologist Relationship Specialty Start Date End Date Marsha Turner MD [address] [place] [address] PCP - General Internal Medicine 05/31/12 documented as of this encounter
--- OUTSIDE RECORDS SUMMARY | 2024-12-18 13:36 | XMS_ITS | Encounter Summary ---
Author Organization [facility] Address [address] [place] [address] Care Team Providers Care Manager Strategic Development Name Role Phone Marsha Turner MD Primary Care Provider +1- [phone] Encounter Details Date Type Department Care Team (Late st Contact Info) Description 03/05/2008 Outpatient Historical [facility] IN BED Dee Casillas MD [address] [address] Social History Tobacco Use Types Packs/Day Years Used Date Smoking Tobacco: Never Assessed Sex and Gender Information Value Date Recorded Sex Assigned at Not on file Legal Sex Male 6: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 Comment:POC Glucose - waived testing: CLIA #[id number] Venous blood specimen (specimen) 03/16/2008 1:37 PM MOVABLE BULKHEAD INSTALLER 03/17/2008 2:21 AM MOVABLE BULKHEAD INSTALLER Dee Casillas MD POINT OF CARE TESTING Final Resu lt Performing Organization Address [facility] de Phone Number INTERFACE SYSTEM Refer to clinic/hospital department [facility] CLIA# [id number] [address] [place] [address] * (ABNORMAL) POC GLUCOSE (03/16/2008 9:28 AM MOVABLE BULKHEAD INSTALLER) GLUCOSE POC 132(H) 60 - 100 mg/dL [facility] Comment:POC Glucose - waived testing: CLIA #[id number] Venous blood specimen (specimen) 03/16/2008 9:28 AM MOVABLE BULKHEAD INSTALLER 03/17/2008 1:24 AM MOVABLE BULKHEAD INSTALLER Dee Casillas MD POINT OF CARE TESTING Final Resu lt Performing Organization Address [facility] de Phone Number INTERFACE SYSTEM Refer to clinic/hospital department [facility] CLIA# [id number] [address] [place] [address] documented in this encounter Visit Diagnoses Not on filedocumented in this encounter Care Teams Manager Strategic Development Relationship Specialty Start Date End Date Marsha Turner MD [address] [place] [id number] PCP - General Internal Medicine 05/31/12 documented as of this encounter
--- OUTSIDE RECORDS SUMMARY | 2024-12-18 13:36 | XMS_ITS | Encounter Summary ---
Author Organization [facility] Address [address] [place] [address] Care Team Providers Care Contract Administrative Assistant Name Role Phone Marsha Turner MD Primary Care Provider +1- [phone] Encounter Details Date Type Department Care Team (Latest Contact Info) Description 05/05/2005 Outpatient [facility] Gastroenterology[address] [place] [address] Abilio Bagley MD [address] [place] [address] CHEST PAIN NOS (Primary Dx); STOMACH FUNCTION DIS NEC; DYSPHAGIA Social History Tobacco Use Types Packs/Day Years Used Date Smoking Tobacco: Never Assessed Sex and Gender Information Value Date Recorded Sex Assigned at Not on file Legal Sex Male 6:16 AM CLINICAL APPLICATIONS SPECIALIST Gender Identity Not on file Sexual Orientation Not on file documented as of this encounter Plan of Treatment Not on file documented as of this encounter Visit Diagnoses Diagnosis Chest pain, unspecified- Primary Dyspepsia and other specified disorders of function of stomach Dysphagia documented in this encounter Care Teams Contract Administrative Assistant Relationship Specialty Start Date End Date Marsha Turner MD [address] [place] [address] PCP - General Internal Medicine 05/31/12 documented as of this encounter
--- OUTSIDE RECORDS SUMMARY | 2024-12-18 13:36 | XMS_ITS | Encounter Summary ---
Author Organization [facility] Address [address] [place] [address] Care Team Providers Care Manager Harbor Name Role Phone Marsha Turner MD Primary Care Provider +6- [phone] Encounter Details Date Type Department Care Team (Late st Contact Info) Description 09/12/2004 Outpatient Historical [facility] Urology- [address] Entrance B, 3rd [place] [address] Thomas Mack MD NO ADDRESS ON FILE Elevated PSA (Primary Dx) Social History Tobacco Use Types Packs/Day Years Used Date Smoking Tobacco: Never Assessed Sex and Gender Information Value Date Recorded Sex Assigned at Not on file Legal Sex Male 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
--- OUTSIDE RECORDS SUMMARY | 2024-12-18 13:36 | XMS_ITS | Encounter Summary ---
Author Organization [facility] Address [address] [place] [address] Care Team Providers Care Spinner Operator Name Role Phone Marsha Turner MD Primary Care Provider +1- [phone] Encounter Details Date Type Department Care Team (Latest Contact Info) Description 10/05/2000 Outpatient Historical [facility] Medicine [address] [place] [address] Lakhwinder Mahmood MD Nonspecific abnormal finding in stool contents (Primary Dx) Social History Tobacco Use Types Packs/Day Years Used Date Smoking Tobacco: Never Assessed Sex and Gender Information Value Date Recorded Sex Assigned at Not on file Legal 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
--- OUTSIDE RECORDS SUMMARY | 2024-12-18 13:36 | XMS_ITS | Encounter Summary ---
Author Organization [facility] Address [address] [place] [address] Care Team Providers Care Golf Course Mechanic Name Role Phone Marsha Turner MD Primary Care Provider [phone]- [phone] Encounter Details Date Type Department Care Team (Late st Contact Info) Description 10/08/2004 Outpatient Historical [facility] [address] [place] [id number] Thomas Mack MD NO ADDRESS ON FILE MALIGN NEOPL PROSTATE (CMS/HCC) (Primary Dx) Social History Tobacco Use Types Packs/Day Years Used Date Smoking Tobacco: Never Assessed Sex and Gender Information Value Date Recorded Sex Assigned at Not on file Legal Sex Male 6:16 AM DIRECTOR OF MUSIC Gender Identity Not on file Sexual Orientation Not on file documented as of this encounter Plan of Treatment Not on file documented as of this encounter Visit Diagnoses Diagnosis Malignant neoplasm of prostate (CMS/HCC)- Primary Malignant neoplasm of prostate documented in this encounter Care Teams Golf Course Mechanic Relationship Specialty Start Date End Date Marsha Turner MD [address] [place] [address] PCP - General Internal Medicine 05/31/12 documented as of this encounter
--- OUTSIDE RECORDS SUMMARY | 2024-12-18 13:36 | XMS_ITS | Encounter Summary ---
Author Organization [facility] Address [address] [place] [address] Care Team Providers Care Associate Professor Of Theology Name Role Phone Marsha Turner MD Primary Care Provider [phone]- [phone] Encounter Details Date Type Department Care Team (Late st Contact Info) Description 02/26/2005 Outpatient Historical [facility]- [address] Entrance B, 3rd [place] [phone] Thomas Mack MD NO ADDRESS ON FILE Malig emmett prostate (Primary Dx) Social History Tobacco Use Types Packs/Day Years Used Date Smoking Tobacco: Never Assessed Sex and Gender Information Value Date Recorded Sex Assigned at Not on file Legal 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
--- OUTSIDE RECORDS SUMMARY | 2024-12-18 13:36 | XMS_ITS | Encounter Summary ---
Author Organization [facility] Address [address] [place] [address] Care Team Providers Care Sports Nutritionist Name Role Phone Marsha Turner MD Primary Care Provider [phone]- [phone] Encounter Details Date Type Department Care Team (Late st Contact Info) Description 09/12/2004 Outpatient Historical [facility] [place] [address] 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
--- NOTE | 2024-12-18 14:00 | ED_ITS ---
HPI - General Adult 2 General: Chief complaint: General Medical Stated complaint: sob, needs drain tube removed Time Seen by Provider: 12/18/24 13:41 Source: patient Mode of arrival: wheelchair Limitations: no limitations History of Present Illness: Patient is a nice 79-year-old male who presents to ED today with significant other with a request to have his MATEUS drain removed from the right side of his neck. Patient states he underwent a skin cancer surgery by Dr. Singer at [facility] on . He states drain was placed at that time with directions that he could have the drain removed once drainage slowed. He states in the past 24+ hours he has only gotten 12.5ml of bloody serous fluid in his bulb. He states he wants the drain removed and is not traveling all the way to [facility] to have this done and is requesting I do this today. He states he overall feels like he is recovering well from his surgery with no other complaints. Onset (ago): day(s) Location: neck Severity: mild Relieving factors: none Exacerbating factors: none Associated symptoms: Reports no associated symptoms; Deny headache(s), malaise, nausea or vomiting Treatments prior to arrival: none Related Data Home Medications ?Medication ?Instructions ?Recorded ?Confirmed nitroglycerin 0.4 mg sublingual 0.4 mg sublingual Q5M PRN Chest 12/22/22 11/23/24 tablet (Nitrostat) Pain liothyronine 5 mcg tablet 5 mcg PO BID 04/01/23 oxybutynin chloride 5 mg 5 mg PO DAILY 10/22/2311/23 tablet,extended release 24 hr acetaminophen 500 mg capsule 1,000 mg PO TID PRN Pain 08/17/24 11/23/24 levothyroxine 150 mcg tablet 150 mcg PO DAILY 10/11/24 11/23/24 (Synthroid) lidocaine-prilocaine 2.5 %-2.5 % 1 applic topical PRN PRN port 10/11/24 11/23/24 topical cream access lorazepam 0.5 mg tablet 0.25 - 0.5 mg PO TID PRN alissa sea 10/11/24 11/23/24 and vomiting sennosides 8.6 mg-docusate sodium 1 tab PO DAILY PRN C onstipation 10/22/24 11/23/24 50 mg tablet (Stool Softener-Laxative) Previous Rx's ?Medication ?Instructions ?Recorded MARK BRACE #1 ea 08/01/20 Modification to AFO Brace to the #1 ea 02/02/22 left apixaban 5 mg tablet (Eliquis) 5 mg PO BID@0900,2100 # 60 tabs 11/12/22 amiodarone 200 mg tablet (Pacerone) 200 mg PO DAILY #3 0 tabs 02/19/23 atorvastatin 40 mg tablet 40 mg PO BEDTIME #90 tabs isosorbide mononitrate 30 mg 60 mg (2 x 30 mg) PO BEDT ALDO #180 01/28/24 tablet,extended release 24 hr tabs prednisone 10 mg tablet 10 mg PO DAILY #90 tabs 06/13 ondansetron HCl 4 mg tablet 8 mg (2 x 4 mg) PO Q8H PRN nausea 09/28/24 and vomiting #90 tabs prochlorperazine maleate 10 mg 10 mg PO Q6H PRN nausea and 09/28/24 tablet (Compazine) vomiting #30 tabs olanzapine 2.5 mg tablet (Zyprexa) 2.5 mg PO DAILY #60 tabs 10/19/24 lactulose 10 gram/15 mL oral 20 g (30 mL) PO DAILY PRN 10/28/24 solution constipation #473 mL meclizine 25 mg tablet 25 mg PO TID PRN dizziness # 20 tabs 10/28/24 bumetanide 2 mg tablet 2 mg PO BID Edema 30 days #6 0 tabs 11/03/24 carvedilol 12.5 mg tablet 6.25 mg (1/2 x 12.5 mg) PO D AILY 11/03/24 30 days #0 tabs hydralazine 50 mg tablet See Rx Instructions .Route 0 11/17/24 .COMPLEX #90 tabs potassium chloride 20 mEq 20 meq PO BID 21 days #42 ta bs 11/24/24 tablet,extended release (K-Tab) omeprazole 40 mg capsule,delayed 40 mg PO QAM #90 caps 12/18/24 release Allergies Allergy/AdvReac Type Severity Reaction Status Date / Time adhesive tape Allergy tears skin Verified 11/23/24 09:49 off metoclopramide (From Reglan) Allergy Unknown Verified 11/23/24 09:49 morphine Allergy ALGY-Hives Verified 11/23/24 09:49 tamsulosin (From Flomax) Allergy ADR/ALGY-Hy Verified 11/23/24 09:49 potension zolpidem (From Ambien) Allergy Unknown Verified 11/23/24 09:49 hydrocodone AdvReac Mild Hypotension Verified 11/23/24 09:49 oxycodone AdvReac Mild Hypotension Verified 11/23/24 09:49 Review of Systems 2 Const: Denies: fever(s), chills, body aches, fatigue or malaise GI: Denies: nausea or vomiting Neuro: Denies: headache(s) PFSH ED 2 PFSH: Medical History Hypothyroid ADAMS (dyspnea on exertion) Atrial fibrillation Ascending aortic aneurysm Patient had a CT of the chest on 07/14/2023. The ascending aorta was found to be 4.0 cm in diameter. Essentially unchanged CHF (congestive heart failure), NYHA class III EF 10/2022 43% on stress test, 50% on echo HTN (hypertension) Other iron deficiency anemias Anemia High risk medication use prednisone and leflunomide 12/2022 Peripheral arterial disease Chronic anticoagulation eliquis Unstable angina CAD (coronary artery disease) Seroma, postoperative Spinal stenosis, thoracic Degenerative disc disease, thoracic History of prostate cancer Urgency incontinence Renal cyst Acquired calcaneovarus deformity of both feet Lumbar stenosis with neurogenic claudication Orthostatic hypotension Venous insufficiency of both lower extremities Acute blood loss as cause of postoperative anemia Failed back surgical syndrome DDD (degenerative disc disease), lumbar Chronic back pain History of TIA (transient ischemic attack) Radiation cystitis Carotid artery disease Hx of cataract Closed fracture of right patella COVID-2020 Metatarsus adductus Osteoarthritis, generalized Seronegative rheumatoid arthritis Positive CORBY (antinuclear antibody) EDUARDO was negative in 2013 Gastroparesis GERD (gastroesophageal reflux disease) Cervical postlaminectomy syndrome FUAD (obstructive sleep apnea) Hyperlipidemia COPD (chronic obstructive pulmonary disease) H/O malignant neoplasm of skin Surgical History Status post revision of total replacement of right knee History of total bilateral knee replacement (TKR) Hx of excision of epidermal inclusion cyst Hx of excision of mass 04/12/23 Dr Fitzgerald- Elliptical excision of skin and subcutaneous back mass S/P laminectomy with spinal fusion S/P spinal fusion 02/2021 - T9-S1 Dr Delarosa History of penile implant Status post spinal arthrodesis S/P lumbar fusion History of cardiac cath ~2012 nonobstructive 10/2022 stress test EF 43 %, small areas prior infarcts RCA and LAD territories History of hip surgery RIGHT 04/11/19 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 History of total right hip arthroplasty History of total left hip arthroplasty History of abdominal aortic aneurysm (AAA) repair History of tonsillectomy and adenoidectomy Hx of appendectomy History of back surgery multiple procedures (>10) H/O neck surgery x 2 Hx of cholecystectomy H/O colonoscopy 2011 H/O esophagogastroduodenoscopy 2011 Family History Mother , Age 81 Bleeding disorder Clotting disorder CAD (coronary artery disease) 60s Cancer Stroke Father , Age 94 CAD (coronary artery disease) 80 Dementia Daughter Chronic kidney disease (CKD) Brother CAD (coronary artery disease) [place] Cancer Denies family history of Diabetes Suicide Anesthesia complication Lung disease Social History Smoking and tobacco/nicotine status: never used tobacco/nicotine Alcohol intake: never Substance/Drug Use: never Household members: spouse Marital status: Current occupational status: retired Special danny needs: No Agree to transfusion: Yes Physical Exam 2 Const: COMMON NORMALS: no acute distress, average body habitus, no limitations, healthy appearing, alert and well nourished GENERAL APPEARANCE: cooperative HENMT: FACE & SINUS IMAGES: 1. large surgical incision site that appears clean and well cared for-no evidence for infection; MATEUS drain to lateral R neck with about 12.5ml of serous bloody fluid in bulb-states they last emptied over 24 hours ago Neuro: SENSORIUM/ORIENTATION: Yes alert Course 2 Vital Signs: Vital signs: Vital Signs Pulse Rate 72 12/18/24 13:35 Respiratory Rate 18 12/18/24 13:35 Blood Pressure 112/68 12/18/24 13:35 Pulse Oximetry 98 12/18/24 13:35 Oxygen Delivery Me thod Room Air 12/18/24 13:35 MDM - General Adult Medical Decision Making We did try to contact [facility] but was placed on hold for over half an hour and was told the wait time would be an additional half an hour just to speak to the transfer team let alone his surgeon. Patient has only had 12.5 mL of drainage since 9 AM yesterday morning which is now about 30 hours. He is requesting drain be removed. This was removed without difficulty. Patient will be allowed home. Return to ED precautions discussed. Discussed following up with surgeon as scheduled. Medical Records I reviewed the patient's medical records. No radiology studies performed this visit Discharge Plan Discharge Patient Disposition: Home Clinical Impression: Encounter for change or removal of drains Condition: Stable Prescriptions: No Action (DME) MARK BRACE See Rx Instructions .Route .MEDSUPPLY Qty: 1 0RF Rx Instructions: As directed olanzapine [Zyprexa] 2.5 mg tablet 2.5 mg PO DAILY Qty: 60 1RF Rx Instructions: 1-2 tablets at hs for appetite and mood (DME) Modification to AFO Brace to the left See Rx Instructions .Route .MEDSUPPLY Qty: 1 0RF Rx Instructions: As directed by [facility] [place] oxybutynin chloride 5 mg tablet extended release 24hr 5 mg PO DAILY prednisone 10 mg tablet 10 mg PO DAILY Qty: 90 1RF prochlorperazine maleate [Compazine] 10 mg tablet 10 mg PO Q6H PRN (Reason: nausea and vomiting) Qty: 30 6RF ondansetron HCl 4 mg tablet 8 mg PO Q8H PRN (Reason: nausea and vomiting) Qty: 90 3RF atorvastatin 40 mg tablet 40 mg PO BEDTIME Qty: 90 3RF isosorbide mononitrate 30 mg tablet extended release 24 hr 60 mg PO BEDTIME Qty: 180 2RF hydralazine 50 mg tablet See Rx Instructions .ROUTE .COMPLEX Qty: 90 3RF Dose Instruction: TAKE 1 TABLET BY MOUTH THREE TIMES DAILY Rx Instructions: TAKE 1 TABLET BY MOUTH THREE TIMES DAILY potassium chloride [K-Tab] 20 mEq tablet extended release 20 meq PO BID 21 Days Qty: 42 0RF omeprazole 40 mg capsule,delayed release(DR/EC) 40 mg PO QAM Qty: 90 1RF acetaminophen 500 mg capsule 1,000 mg PO TID PRN (Reason: Pain) Eliquis 5 mg Tablet 5 mg PO BID@0900,2100 Qty: 60 2RF levothyroxine [Synthroid] 150 mcg tablet 150 mcg PO DAILY lidocaine-prilocaine 2.5-2.5 % cream 1 applic topical PRN PRN (Reason: port access) Rx Instructions: Apply a quarter size amount to port and cover with saran wrap 30 minutes prior to access. lorazepam 0.5 mg tablet 0.25 - 0.5 mg PO TID MDD 6 mg PRN (Reason: nausea and vomiting) Rx Instructions: may titrate to 2 mg dosing if needed for relief. lactulose 10 gram/15 mL solution 20 g PO DAILY PRN (Reason: constipation) Qty: 473 0RF meclizine 25 mg tablet 25 mg PO TID PRN (Reason: dizziness) Qty: 20 0RF carvedilol 12.5 mg tablet 6.25 mg PO DAILY 30 Days Qty: 0 0RF bumetanide 2 mg tablet 2 mg PO BID 30 Days Qty: 60 0RF nitroglycerin [Nitrostat] 0.4 mg Tablet, Sublingual 0.4 mg SUBLINGUAL Q5M PRN (Reason: Chest Pain) Rx Instructions: do not exceed 3 doses per episode amiodarone [Pacerone] 200 mg Tablet 200 mg PO DAILY Qty: 30 0RF liothyronine 5 mcg tablet 5 mcg PO BID sennosides-docusate sodium [Stool Softener-Laxative] 8.6-50 mg tablet 1 tab PO DAILY PRN (Reason: Constipation) Discharge Orders: Discharge ED (Routine); Ordered 12/18/24 Ordered By: Kat Tapia Referrals: Marsha Turner MD [Primary Care Provider, Internal Medicine] Patient Instructions: Patient Portal & [facility] Instructions Activity Restrictions/Additional Instructions: As we discussed, your drain was successfully removed here without difficulty. Continue to keep area clean and dressed. You need to contact your surgeon immediately for any significant swelling to your neck or any other concerns you may have. Print Language: Macedonian Coding Level of Care Code ED Income Tax Administrator for Lauren Zimmerman
== END 2024-12-18 15:21 | disposition home or self-care (01) ==
PROVIDERS: Emergency Provider Physician Assistant; PCP Internal Medicine
DX: Z48.03 Encounter for change or removal of drains (principal); Z79.01 Long term (current) use of anticoagulants; J44.9 Chronic obstructive pulmonary disease, unspecified; E78.5 Hyperlipidemia, unspecified; I25.10 Atherosclerotic heart disease of native coronary artery without angina pectoris; Z86.73 Personal history of transient ischemic attack (TIA), and cerebral infarction without residual deficits; I11.0 Hypertensive heart disease with heart failure; I50.9 Heart failure, unspecified
CPT/HCPCS: 99282

== ENCOUNTER → 2024-12-26 08:46 | Outpatient (BNVA) | payer MEDICARE, OTHER, SELFPAY | PROVIDERS: PCP Internal Medicine; Visit Provider Podiatrist Foot & Ankle Surgery | DX: I73.9 Peripheral vascular disease, unspecified (principal); L60.3 Nail dystrophy; L60.8 Other nail disorders; E03.9 Hypothyroidism, unspecified; Z79.01 Long term (current) use of anticoagulants | CPT/HCPCS: 11721 ==

== ENCOUNTER → 2025-01-01 09:48 | Outpatient (BNVA) | payer MEDICARE, OTHER, SELFPAY | PROVIDERS: PCP Internal Medicine; Visit Provider Dermatology | DX: C44.329 Squamous cell carcinoma of skin of other parts of face (principal); Z92.3 Personal history of irradiation; Z08 Encounter for follow-up examination after completed treatment for malignant neoplasm; Z85.828 Personal history of other malignant neoplasm of skin; Z57.0 Occupational exposure to noise | CPT/HCPCS: 17000; 99214 ==

== ENCOUNTER 2025-01-03 16:06 | Inpatient (IN) | payer MEDICARE, OTHER, SELFPAY ==
--- NOTE | 2025-01-03 16:02 | XRR_ITS ---
PROCEDURE INFORMATION: Exam: XR Chest Exam date and time: 01/03/2025 4:12 PM Age: 79 years old Clinical indication: Pain; Angina pectoris; Additional info: Cp TECHNIQUE: Imaging protocol: Radiologic exam of the chest. Views: 1 view. COMPARISON: CR (CHEST, ) 10/28/2024 12:20 PM FINDINGS: Tubes, catheters and devices: Right IJ Port-A-Cath tip is near the superior cavoatrial junction. Lungs: Similar bibasilar scarring. No consolidation. Pleural spaces: Unremarkable. No pleural effusion. No pneumothorax. Heart/Mediastinum: Stable cardiomediastinal silhouette. Bones/joints: Cervicothoracic fusion hardware partially imaged. XR/XR chest 1V portable [id number] IMPRESSION: No acute cardiopulmonary findings.
--- NOTE | 2025-01-03 16:02 | ECG_ITS ---
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 Measurements Intervals [place] Rate: 64 P: 24 LA: 243 QRS: -53 QRSD: 143 T: -3 QT: 459 QTc: 477 Interpretive Statements SINUS RHYTHM WITH FIRST DEGREE AV BLOCK Poor R wave progression INTRAVENTRICULAR CONDUCTION DELAY [130+ ms QRS DURATION] Compared to ECG 10/28/2024 11:05:57 No significant changes Electronically Signed On 01-03-2025 16:51:39 CDT by Priyanka Rivas M.D. [email or web address]
[2025-01-03 16:07] VITALS: BP 132/86; PULSE 66; RESP 18; TEMP 36.9; O2SAT 95; BMI 31.8
--- NOTE | 2025-01-03 16:15 | ECG_ITS ---
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 Measurements Intervals [place] Rate: 67 P: 263 W[place]: 153 QRS: -59 QRSD: 121 T: -10 QT: 438 QTc: 463 Interpretive Statements Possible sinus rhythm with a first-degree AV block INFERIOR MYOCARDIAL INFARCTION , PROBABLY OLD [40+ ms Q WAVE AND/OR ST/T ABNORMALITY IN II/aVF] ANTEROLATERAL MYOCARDIAL INFARCTION , OF INDETERMINATE AGE [40+ ms Q WAVE IN I/aVL/V3-V6] ST ELEVATION, CONSIDER SEPTAL INJURY [MARKED ST ELEVATION W/O NORMALLY INFLECTED T-WAVE IN V1/V2] Compared to ECG 01/03/2025 16:07:04 Ectopic atrial rhythm now present. Myocardial infarct finding now present ST (T wave) deviation now present .Sinus rhythm no longer present First degree AV block no longer present .Intraventricular conduction delay no longer present Electronically Signed On 01-03-2025 16:51:18 CDT by Priyanka Rivas M.D. [email or web address]
[2025-01-03 16:16] LABS: Hematocrit 36.3 % (37-53); Hemoglobin 12.10 g/dL (11.27-16.99); Mean Corpuscular HGB Conc 33.3 g/dL (30-55); Mean Corpuscular Hemoglobin 31.3 pg (27-33); Mean Corpuscular Volume 94.0 fl (82-101); Nucleated Red Blood Cells % 0 %; Platelet Count 225 10^3/cmm (157-399); Red Blood Count 3.86 10^6/uL (3.85-5.65); White Blood Count 8.54 10^3/uL (3.29-11.43)
--- NOTE | 2025-01-03 16:16 | W.ED.CHESTPA ---
HPI - Chest Pain General: Chief Complaint: Chest Pain Stated Complaint: Chest Pain Source: patient and EMS Mode of arrival: EMS Limitations: no limitations History of Present Illness: 79-year-old male with history of coronary artery disease states he started having chest pain 30 minutes before arrival states is a pressure type pain in the center of his chest. Patient did receive nitro and aspirin and route his pain has improved he denies any shortness of breath denies any cough or fever. Related Data Home Medications ?Medication ?Instructions ?Recorded ?Confirmed nitroglycerin 0.4 mg sublingual 0.4 mg sublingual Q5M PRN Chest 12/22/22 12/26/24 tablet (Nitrostat) Pain liothyronine 5 mcg tablet 5 mcg PO BID 04/01/23 12/26/24 oxybutynin chloride 5 mg 5 mg PO DAILY 10/22/23 12/26/24 tablet,extended release 24 hr acetaminophen 500 mg capsule 1,000 mg PO TID PRN Pain 08/17/24 12/26/24 levothyroxine 150 mcg tablet 150 mcg PO DAILY 10/11/24 12/26/24 (Synthroid) lidocaine-prilocaine 2.5 %-2.5 % 1 applic topical PRN PRN port 10/11/24 12/26/24 topical cream access lorazepam 0.5 mg tablet 0.25 - 0.5 mg PO TID PRN nausea 10/11/24 12/26/24 and vomiting sennosides 8.6 mg-docusate sodium 1 tab PO DAILY PRN Constipation 10/22/24 12/26/24 50 mg tablet (Stool Softener-Laxative) Previous Rx's ?Medication ?Instructions ?Recorded MARK BRACE #1 ea 08/01/20 Modification to AFO Brace to the #1 ea 02/02/22 left apixaban 5 mg tablet (Eliquis) 5 mg PO BID@0900,2100 #60 tabs 11/12/22 amiodarone 200 mg tablet (Pacerone) 200 mg PO DAILY #30 tabs 02/19/23 atorvastatin 40 mg tablet 40 mg PO BEDTIME #90 tabs 08/10/23 isosorbide mononitrate 30 mg 60 mg (2 x 30 mg) PO BEDTIME #180 01/28/24 tablet,extended release 24 hr tabs prednisone 10 mg tablet 10 mg PO DAILY #90 tabs 06/22/24 ondansetron HCl 4 mg tablet 8 mg (2 x 4 mg) PO Q8H PRN nausea 09/28/24 and vomiting #90 tabs prochlorperazine maleate 10 mg 10 mg PO Q6H PRN nausea and 09/28/24 tablet (Compazine) vomiting #30 tabs olanzapine 2.5 mg tablet (Zyprexa) 2.5 mg PO DAILY #60 tabs 10/19/24 lactulose 10 gram/15 mL oral 20 g (30 mL) PO DAILY PRN 10/28/24 solution constipation #473 mL meclizine 25 mg tablet 25 mg PO TID PRN dizziness #20 tabs 10/28/24 bumetanide 2 mg tablet 2 mg PO BID Edema 30 days #60 tabs 11/03/24 carvedilol 12.5 mg tablet 6.25 mg (1/2 x 12.5 mg) PO DAILY 11/03/24 30 days #0 tabs hydralazine 50 mg tablet See Rx Instructions .Route 11/17/24 .COMPLEX #90 tabs potassium chloride 20 mEq 20 meq PO BID 21 days #42 tabs 11/24/24 tablet,extended release (K-Tab) omeprazole 40 mg capsule,delayed 40 mg PO QAM #90 caps 12/18/24 release Allergies Allergy/AdvReac Type Severity Reaction Status Date / Time adhesive tape Allergy tears skin Verified 12/26/24 08:49 off metoclopramide (From Reglan) Allergy Unknown Verified 12/26/24 08:49 morphine Allergy ALGY-Hives Verified 12/26/24 08:49 tamsulosin (From Flomax) Allergy ADR/ALGY-Hy Verified 12/26/24 08:49 potension zolpidem (From Ambien) Allergy Unknown Verified 12/26/24 08:49 hydrocodone AdvReac Mild Hypotension Verified 12/26/24 08:49 oxycodone AdvReac Mild Hypotension Verified 12/26/24 08:49 Review of Systems Card: Reports: chest pain [facility] ED PFSH: Medical History Hypothyroid ADAMS (dyspnea on exertion) Atrial fibrillation Ascending aortic aneurysm Patient had a CT of the chest on 07/14/2023. The ascending aorta was found to be 4.0 cm in diameter. Essentially unchanged CHF (congestive heart failure), NYHA class III EF 10/2022 43% on stress test, 50% on echo HTN (hypertension) Other iron deficiency anemias Anemia High risk medication use prednisone and leflunomide 12/2022 Peripheral arterial disease Chronic anticoagulation eliquis Unstable angina CAD (coronary artery disease) Seroma, postoperative Spinal stenosis, thoracic Degenerative disc disease, thoracic History of prostate cancer Urgency incontinence Renal cyst Acquired calcaneovarus deformity of both feet Lumbar stenosis with neurogenic claudication Orthostatic hypotension Venous insufficiency of both lower extremities Acute blood loss as cause of postoperative anemia Failed back surgical syndrome DDD (degenerative disc disease), lumbar Chronic back pain History of TIA (transient ischemic attack) Radiation cystitis Carotid artery disease Hx of cataract Closed fracture of right patella COVID-2020 Metatarsus adductus Osteoarthritis, generalized Seronegative rheumatoid arthritis Positive CORBY (antinuclear antibody) EDUARDO was negative in 2013 Gastroparesis GERD (gastroesophageal reflux disease) Cervical postlaminectomy syndrome FUAD (obstructive sleep apnea) Hyperlipidemia COPD (chronic obstructive pulmonary disease) H/O malignant neoplasm of skin Surgical History Status post revision of total replacement of right knee History of total bilateral knee replacement (TKR) Hx of excision of epidermal inclusion cyst Hx of excision of mass 04/12/23 Dr Fitzgerald- Elliptical excision of skin and subcutaneous back mass S/P laminectomy with spinal fusion S/P spinal fusion 02/2021 - T9-S1 Dr Delarosa History of penile implant Status post spinal arthrodesis S/P lumbar fusion History of cardiac cath ~2012 nonobstructive 10/2022 stress test EF 43 %, small areas prior infarcts RCA and LAD territories History of hip surgery RIGHT 04/11/19 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 History of total right hip arthroplasty History of total left hip arthroplasty History of abdominal aortic aneurysm (AAA) repair History of tonsillectomy and adenoidectomy Hx of appendectomy History of back surgery multiple procedures (>10) H/O neck surgery x 2 Hx of cholecystectomy H/O colonoscopy 2011 H/O esophagogastroduodenoscopy 2011 Family History Mother , Age 81 Bleeding disorder Clotting disorder CAD (coronary artery disease) 60s Cancer Stroke Father , Age 94 CAD (coronary artery disease) 80 Dementia Daughter Chronic kidney disease (CKD) Brother CAD (coronary artery disease) [place] Cancer Denies family history of Diabetes Suicide Anesthesia complication Lung disease Social History Smoking and tobacco/nicotine status: never used tobacco/nicotine Alcohol intake: never Substance/Drug Use: never Household members: spouse Marital status: Current occupational status: retired Special danny needs: No Agree to transfusion: Yes Physical Exam Const: COMMON NORMALS: patient oriented x3 HENMT: COMMON NORMALS: normocephalic and atraumatic HEAD & SCALP: normocephalic and atraumatic Neck/C-Spine: COMMON NORMALS: full ROM and supple Chest: COMMONS NORMALS: normal inspection of the chest and normal palpation of entire chest wall Resp: COMMON NORMALS: normal respiratory effort, No retractions, No use of accessory muscles and clear to auscultation bilaterally AUSCULTATION: clear to auscultation bilaterally Cardio: COMMON NORMALS: regular rate, regular rhythm and No murmurs present (Cardio) RATE: regular rate RHYTHM: regular rhythm GI: COMMON NORMALS: Normal to inspection, nondistended, normoactive bowel sounds present, Soft to palpation, non-tender and no masses PALPATION: Yes Soft to palpation Extremity: COMMON NORMALS: normal to inspection and full ROM Neuro: COMMON NORMALS: patient oriented x3, moves all extremities and no focal motor deficits Psych: COMMON NORMALS: mental status grossly normal, Normal thought process present and cooperative THOUGHT PROCESS: Normal thought process present Skin: COMMON NORMALS: no rashes or lesions noted and no wounds GENERAL SKIN EXAM: no rashes or lesions noted Course Vital Signs: Vital signs: Vital Signs Temperature 98.4 F 01/03/25 16:07 Pulse Rate 67 01/03/25 17:07 Respiratory Rate 18 01/03/25 16:07 Blood Pressure 133/69 01/03/25 17:07 Pulse Oximetry 95 01/03/25 16:07 Oxygen Delivery Me thod Room Air 01/03/25 16:07 MDM - Chest Pain Medical Decision Making Patient presents for chest pain differential includes aortic dissection, pulm embolism, ACS. Patient here has no signs of pulmonary emboli no shortness of breath he has no ripping pain to his back with no signs of acute aortic dissection. Patient does have significant heart history his initial troponin here was 36 his EKG showed normal sinus rhythm heart rate [address] elevation QRS 121 QTc 453 unchanged from his previous EKG. He has no signs of ST elevation. Other labs here were normal chest x-ray showed no acute abnormalities. I did discuss with patient as he has significant risk factors plan for admission for observation and he does agree. I spoke to Dr. Holcomb and will admit at this time Medical Records I reviewed the patient's medical records. Lab Data I reviewed the patient's lab results. 01/03/25 15:50 01/03/25 15:50 Laboratory Results WBC 8.54 10^3/uL (3.29-11.43) 01/03/25 15:50 RBC 3.86 10^6/uL (3.85-5.65) 01/03/25 15:50 Hgb 12.10 g/dL (11.27-16.99) 01/03/25 15:50 Hct 36.3 % (37-53) L 01/03/25 15:50 MCV 94.0 fl (82-101) 01/03/25 15:50 MCH 31.3 pg (27-33) 01/03/25 15:50 MCHC 33.3 g/dL (30-55) 01/03/25 15:50 RDW 14.9 % (12.1-15.1) 01/03/25 15:50 Plt Count 225 10^3/cmm (157-399) 01/03/25 15:50 MPV 9.4 fL (7.4-10.4) 01/03/25 15:50 Neut % (Auto) 87.9 % 01/03/25 15:50 Lymph % (Auto) 6.0 % 01/03/25 15:50 Dickens % (Auto) 5.2 % 01/03/25 15:50 Eos % (Auto) 0.1 % 01/03/25 15:50 Baso % (Auto) 0.2 % 01/03/25 15:50 Neut # (Auto) 7.51 10^3/uL (1.8-7.7) 01/03/25 15:50 Lymph # (Auto) 0.5 10^3/uL (0.8-4.8) L 01/03/25 15:50 Dickens # (Auto) 0.4 10^3/uL (0.2-0.9) 01/03/25 15:50 Eos # (Auto) 0.0 10^3/uL (0.0-0.8) 01/03/25 15:50 Baso # (Auto) 0.0 10^3/uL (0.0-0.1) 01/03/25 15:50 Nucleated RBC % (auto) 0 % 01/03/25 15:50 Nucleated RBCs # 0.0 /100WBC 01/03/25 15:50 PT 16.30 SECONDS (12.1-14.9) H 01/03/25 15:50 INR 1.23 (0.8-1.2) H 01/03/25 15:50 Sodium 139 mmol/L (136-145) 01/03/25 15:50 Potassium 4.3 mmol/L (3.5-5.1) 01/03/25 15:50 Chloride 104 mmol/L (98-107) 01/03/25 15:50 Carbon Dioxide 19 mmol/L (22-29) L 01/03/25 15:50 Anion Gap 20.3 (5-19) H 01/03/25 15:50 BUN 15 mg/dL (8-23) 01/03/25 15:50 Creatinine 1.2 mg/dL (0.7-1.2) 01/03/25 15:50 GFR Calculation Not Reportable 01/03/25 15:50 Glucose 118 mg/dL (65-115) H 01/03/25 15:50 Calculated Osmolality 290 mOsm/kg (285-295) 01/03/25 15:50 Calcium 9.0 mg/dL (8.5-10.5) 01/03/25 15:50 Total Bilirubin 0.8 mg/dL (0.15-1.2) 01/03/25 15:50 AST 17 U/L (0-40) 01/03/25 15:50 ALT 15 U/L (0-41) 01/03/25 15:50 Alkaline Phosphatase 80 U/L (40-130) 01/03/25 15:50 Troponin T Baseline 36 ng/L (0-15) H 01/03/25 15:50 Total Protein 6.3 g/dL (6.6-8.7) L 01/03/25 15:50 Albumin 4.0 g/dL (3.5-5.2) 01/03/25 15:50 Globulin 2.3 g/dL (1.3-4.6) 01/03/25 15:50 Lipase 18 U/L (13-60) 01/03/25 15:50 All radiology interpretation(s) finalized by discharge EKG Data EKG 1: I personally reviewed and interpreted this EKG as follows: EKG interpretation date: 01/03/25 EKG interpretation time: 16:10 Interpretation: hr [address] elevation qrs 121 qtc 453 umchanged from previous Discharge Plan Discharge Patient Disposition: Placed in Observation Clinical Impression: Chest pain Coding Level of Care Code ED Surgical Oncologist for Chg Fwd Heart Score HEART Score Components History: Moderately Suspicious EKG: Non-specific Changes Age: 65 or more yrs Risk Factors: >/=3 Risk Factors Troponin: Baseline Trop 16-45 ng/L HEART Score RESULT HEART Score: 7
[2025-01-03 16:34] LABS: INR 1.23 (0.8-1.2); Prothrombin Time 16.30 SECONDS (12.1-14.9)
[2025-01-03 16:40] LABS: Troponin(5th) Baseline 36 ng/L (0-15)
[2025-01-03 16:42] LABS: Alanine Aminotransferase 15 U/L (0-41); Albumin Level 4.0 g/dL (3.5-5.2); Alkaline Phosphatase 80 U/L (40-130); Anion Gap 20.3 (5-19); Aspartate Amino Transferase 17 U/L (0-40); Blood Urea Nitrogen 15 mg/dL (8-23); Calcium 9.0 mg/dL (8.5-10.5); Carbon Dioxide 19 mmol/L (22-29); Chloride 104 mmol/L (98-107); Creatinine Clr Calc Pharmacy 57.4152; Globulin 2.3 g/dL (1.3-4.6); Glucose 118 mg/dL (65-115); Lipase 18 U/L (13-60); Osmolality Calculated 290 mOsm/kg (285-295); Potassium 4.3 mmol/L (3.5-5.1); Sodium 139 mmol/L (136-145); Total Protein 6.3 g/dL (6.6-8.7)
[2025-01-03] MEDS: ondansetron 2 mg/ML SDV 2 mL 4 MG IVP (17:03)
[2025-01-03] MEDS: HYDROmorphone 0.5 MG/0.5 ML INJ 0.4 MG IVP (17:03)
[2025-01-03 17:07] VITALS: BP 133/69; PULSE 67
--- NOTE | 2025-01-03 17:53 | ECG_ITS ---
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 Measurements Intervals Troup Rate: 62 P: 269 MT: 150 QRS: -55 QRSD: 118 T: -20 QT: 454 QTc: 463 Interpretive Statements ECTOPIC ATRIAL RHYTHM POSSIBLE ANTERIOR MYOCARDIAL INFARCTION , PROBABLY OLD [30 ms Q WAVE IN V3/V4, OR R < 0.2 mV IN V4] INFERIOR MYOCARDIAL INFARCTION , OF INDETERMINATE AGE [40+ ms Q WAVE AND/OR ST/T ABNORMALITY IN II/aVF] NONSPECIFIC INTRAVENTRICULAR CONDUCTION DELAY ST DEPRESSION, CONSIDER SUBENDOCARDIAL INJURY [0.1+ mV ST DEPRESSION] Compared to ECG 01/03/2025 16:10:12 Ectopic atrial rhythm now present Myocardial infarct finding still present ST (T wave) deviation still present Electronically Signed On 01-03-2025 22:56:33 CDT by Priyanka Rivas M.D. [email or web address]
[2025-01-03 18:07] VITALS: BP 125/71; PULSE 63; O2SAT 95
--- NOTE | 2025-01-03 18:10 | USCV_ITS ---
Kojo Marinelli Age: 79 Gender: M : 1945 Exam Date: 01/03/2025 19:12 Ordering Phys: Jac Polanco MD Technologist: FAMILIA Exam Location: [facility] [place] Indication: Bilateral lower extremity edema. No history of DVT per patient. Patient is wearing support hose. 2+ pitting edema BLE HISTORY: Bilateral lower extremity edema. No history of DVT per patient. Patient is wearing support hose. 2+ pitting edema BLE PROCEDURES: Venous duplex imaging was performed in bilateral lower extremities. The following venous structures were evaluated: common femoral vein, profunda vein, proximal portion of the greater saphenous vein, superficial femoral vein, and the popliteal vein. In addition, the posterior tibial and peroneal veins were evaluated. Serial compression, augmentation maneuvers, and spectral Doppler flow evaluation were performed, which were normal. Bilaterally, the common femoral, superficial femoral, profunda femoral, popliteal, posterior tibial, greater saphenous veins, and the peroneal veins were identified and interrogated in the standard fashion. These veins were found to be easily compressible with spontaneous blood flow. No evidence of thrombus noted. CONCLUSIONS No evidence of right lower extremity DVT. No evidence of left lower extremity DVT. James Barroso MD (Electronically Signed) Final Date: 05 January 2025 11:09 S
--- NOTE | 2025-01-03 18:10 | USCV_ITS ---
Kojo Marinelli Age: 79 Gender: M : 1945 Exam Date: 01/03/2025 18:41 Ordering Phys: Jac Polanco MD Technologist: FAMILIA Exam Location: [facility] [place] Indication: chest pain and SOB, history of HTN, HL, Atrial fibrillation BP: 125 / 71 HR: 60 Rhythm: Sinus Technical Quality: Adequate MEASUREMENTS (Male / Female) Normal Values 2D ECHO LV Diastolic Diameter PLAX 4.2 cm 4.2 - 5.9 / 3.9 - 5.3 cm IVS Diastolic Thickness 1.7 cm 0.6 - 1.0 / 0.6 - 0.9 cm IVS Systolic Thickness 1.7 cm LVPW Diastolic Thickness 1.6 cm 0.6 - 1.0 / 0.6 - 0.9 cm LVPW Systolic Thickness 1.5 cm LVOT Diameter 2.3 cm LV Ejection Fraction 2D Teich 54.7 % LV Ejection Fraction MOD 4C 47.6 % LV Ejection Fraction MOD 2C 54.4 % LV Ejection Fraction 2C AL 55.6 % LA Diameter 4.8 cm Aorta at Sinotubular Diameter 3.8 cm IVC Diameter 1.2 cm M-MODE LA Ao Ratio MM 1.1 AV Cusp Separation MM 2.8 cm DOPPLER AV Peak Velocity 116.0 cm/s LVOT Peak Velocity 88.0 cm/s AV Area Cont Eq vti 3.5 cm squared AV Area Cont Eq pk 3.0 cm squared MV Peak Velocity 92.0 cm/s MV Area PHT 3.0 cm squared Mitral E to A Ratio 0.8 TV Peak E Velocity 61.0 cm/s PV Peak Velocity 83.0 cm/s FINDINGS Left Ventricle Normal left ventricular size, systolic function and wall thickness, with no regional wall motion abnormalities. Left ventricular ejection fraction is estimated at 60 %. Grade II/IV diastolic dysfunction, moderately elevated filling pressures. Right Ventricle Normal right ventricular size and systolic function. Right Atrium Normal right atrial size. Left Atrium Normal left atrial size. IA Septum Normal appearance of the interatrial septum. Mitral Valve Normal mitral valve structure. No mitral valve stenosis or regurgitation. Aortic Valve Normal aortic valve structure. No aortic valve stenosis or regurgitation. Tricuspid Valve Trace tricuspid valve regurgitation. Pulmonic Valve Normal pulmonic valve structure. No pulmonic valve stenosis or regurgitation. Pericardium No pericardial effusion. Aorta Normal diameter of the aortic root and ascending thoracic aorta. IVC Normal IVC diameter. CONCLUSIONS Normal left ventricular size, systolic function and wall thickness, with no regional wall motion abnormalities. Left ventricular ejection fraction is estimated at 60 %. Grade II/IV diastolic dysfunction, moderately elevated filling pressures There is no pericardial effusion. No significant valve abnormalities. Right atrial pressure is around 5 mm of mercury. Naz Russ MD (Electronically Signed) Final Date: 03 January 2025 20:50 S
--- NOTE | 2025-01-03 18:11 | CTR_ITS ---
PROCEDURE INFORMATION: Exam: CT Chest Without Contrast; Diagnostic Exam date and time: 01/03/2025 6:25 PM Age: 79 years old Clinical indication: Other: Abd pain; Shortness of breath; PT presents with chest pain. Patient has HX of same. ; Additional info: SOB, chest pain, abdominal distention, diarrhea TECHNIQUE: Imaging protocol: Diagnostic computed tomography of the chest without contrast. Radiation optimization: All CT scans at this facility use at least one of these dose optimization techniques: automated exposure control; mA and/or kV adjustment per patient size (includes targeted exams where dose is matched to clinical indication); or iterative reconstruction. COMPARISON: CT angio chest PE protcl [id number] 11/17/2023 3:52 PM RADIATION DOSE METRICS: Total DLP (mGy-cm): 1101.86 FINDINGS: Tubes, catheters and devices: Right IJ Port-A-Cath tip near the superior cavoatrial junction. Thyroid: Atrophic thyroid. Lungs: Calcified left lower lobe granuloma. No consolidation. No masses. Pleural spaces: Unremarkable. No pneumothorax. No pleural effusion. Heart: Unremarkable. No cardiomegaly. No pericardial effusion. Coronary arteries: Multivessel coronary artery calcifications. Lymph nodes: Unremarkable. No enlarged lymph nodes. Vasculature: The thoracic aorta is nonaneurysmal with mild atherosclerotic calcifications. Bones/joints: ACDF hardware and posterior cervicothoracic fusion hardware partially imaged. Posterior thoracolumbar fusion hardware is again seen, similar to prior. Soft tissues: Unremarkable. PROCEDURE INFORMATION: Exam: CT Abdomen And Pelvis Without Contrast Exam date and time: 01/03/2025 6:25 PM Age: 79 years old Clinical indication: Other: Abd pain; Shortness of breath; PT presents with chest pain. Patient has HX of same. ; Additional info: SOB, chest pain, abdominal distention, diarrhea TECHNIQUE: Imaging protocol: Computed tomography of the abdomen and pelvis without contrast. Radiation optimization: All CT scans at this facility use at least one of these dose optimization techniques: automated exposure control; mA and/or kV adjustment per patient size (includes targeted exams where dose is matched to clinical indication); or iterative reconstruction. COMPARISON: 1. CT abdomen pelvis w con* [id number] 10/22/2024 8:[address] abdomen pelvis w con* [id number] 10/28/2024 12:17 PM RADIATION DOSE METRICS: Total DLP (mGy-cm): 1101.86 FINDINGS: Tubes, catheters and devices: Penile pump partially imaged. Liver: Normal. No mass. Gallbladder and biliary ducts: Status post cholecystectomy. No ductal dilation. Pancreas: Normal. No ductal dilation. Spleen: Normal. No splenomegaly. Adrenal glands: Normal. No mass. Kidneys and ureters: Stable left renal cyst. No hydronephrosis. Stomach and bowel: Similar marked distension of the transverse colon. The descending colon is decompressed as before. There appears to be relatively abrupt tapering near the splenic flexure, not seen previously. Small scattered colonic stool. The stomach is underdistended, limiting evaluation. No small bowel obstruction. Appendix: No evidence of appendicitis. Intraperitoneal space: Trace free pelvic fluid. Vasculature: Mild atherosclerotic aortoiliac calcifications. No abdominal aortic aneurysm. Lymph nodes: Unremarkable. No enlarged lymph nodes. Urinary bladder: Unremarkable as visualized. Reproductive: Unremarkable as visualized. Bones/joints: Posterior fusion hardware appears similar to prior. Bilateral hip arthroplasties appear intact within the field of view. Multilevel laminectomies in the lumbar spine. Diffuse osseous demineralization. Soft tissues: Unremarkable. CT/[place] [id number] IMPRESSION: No acute findings. IMPRESSION: 1. Similar markedly distended transverse colon. There is relatively abrupt tapering near the splenic flexure with decompression of the descending colon. This was not seen in the most recent prior exam from 10/28/2024 but is somewhat similar to the exam from 10/22/2024. Colonic ileus versus partial obstruction not excluded in the correct clinical setting. 2. Remainder stable.
--- NOTE | 2025-01-03 18:12 | PM.HP ---
Providers/Chief Complaint Primary Care Provider: Marsha Turner MD Chief Complaint: Chest Pain History of Present Illness Kojo Marinelli is a 79 year old male with a past medical history of skin cancer, right sikh, status post surgical intervention, on immunotherapy, history of hypertension, hyperlipidemia, atrial fibrillation on Eliquis therapy recent history of C. difficile colitis completed treatment, who presents [facility] due to chest pain and shortness of breath. Currently patient is alert oriented x 3, follows all commands, he tells me that today he developed substernal crushing chest pain, associate with shortness of breath associate with excessive exertion, recently has been experiencing increased shortness of breath with exertion, lower extremity edema does report persistent diarrhea, increased abdominal distention, bloating, nonspecific abdominal pain, does have pitting edema, no dysuria, hematuria, no flank pain, does report shortness of breath with exertion, Review of Systems Const: Denies: fever(s) or chills Card: Denies: chest pain Resp: Reports: dyspnea GI: Denies: abdominal pain : Denies: flank pain Medications/Allergies Home Medications ?Medication ?Instructions ?Recorded ?Confirmed ?Last Taken ?Type MARK BRACE #1 ea 08/01/20 12/26/24 Unknown Rx Modification to AFO Brace to the #1 ea 02/02/22 12/26/24 Unknown Rx left apixaban 5 mg tablet (Eliquis) 5 mg PO BID@0900,2100 #60 tabs 11/12/22 12/26/24 10/27/24 Rx nitroglycerin 0.4 mg sublingual 0.4 mg sublingual Q5M PRN Chest 12/22/22 12/26/24 02/17/23 History tablet (Nitrostat) Pain amiodarone 200 mg tablet (Pacerone) 200 mg PO DAILY #30 tabs 02/19/23 12/26/24 10/27/24 Rx liothyronine 5 mcg tablet 5 mcg PO BID 04/01/23 12/26/24 10/27/24 History atorvastatin 40 mg tablet 40 mg PO BEDTIME #90 tabs 08/10/23 12/26/24 10/21/24 Rx oxybutynin chloride 5 mg 5 mg PO DAILY 10/22/23 12/26/24 10/27/24 History tablet,extended release 24 hr isosorbide mononitrate 30 mg 60 mg (2 x 30 mg) PO BEDTIME #180 01/28/24 12/26/24 10/27/24 Rx tablet,extended release 24 hr tabs prednisone 10 mg tablet 10 mg PO DAILY #90 tabs 06/22/24 12/26/24 10/27/24 Rx acetaminophen 500 mg capsule 1,000 mg PO TID PRN Pain 08/17/24 12/26/24 Unknown History ondansetron HCl 4 mg tablet 8 mg (2 x 4 mg) PO Q8H PRN nausea 09/28/24 12/26/24 Unknown Rx and vomiting #90 tabs prochlorperazine maleate 10 mg 10 mg PO Q6H PRN nausea and 09/28/24 12/26/24 Unknown Rx tablet (Compazine) vomiting #30 tabs levothyroxine 150 mcg tablet 150 mcg PO DAILY 10/11/24 12/26/24 10/27/24 History (Synthroid) lidocaine-prilocaine 2.5 %-2.5 % 1 applic topical PRN PRN port 10/11/24 12/26/24 Unknown History topical cream access lorazepam 0.5 mg tablet 0.25 - 0.5 mg PO TID PRN nausea 10/11/24 12/26/24 Unknown History and vomiting olanzapine 2.5 mg tablet (Zyprexa) 2.5 mg PO DAILY #60 tabs 10/19/24 12/26/24 10/27/24 Rx sennosides 8.6 mg-docusate sodium 1 tab PO DAILY PRN Constipation 10/22/24 12/26/24 10/27/24 History 50 mg tablet (Stool Softener-Laxative) lactulose 10 gram/15 mL oral 20 g (30 mL) PO DAILY PRN 10/28/24 12/26/24 Unknown Rx solution constipation #473 mL meclizine 25 mg tablet 25 mg PO TID PRN dizziness #20 tabs 10/28/24 12/26/24 Unknown Rx bumetanide 2 mg tablet 2 mg PO BID Edema 30 days #60 tabs 11/03/24 12/26/24 10/27/24 Rx carvedilol 12.5 mg tablet 6.25 mg (1/2 x 12.5 mg) PO DAILY 11/03/24 12/26/24 10/27/24 Rx 30 days #0 tabs hydralazine 50 mg tablet See Rx Instructions .Route 11/17/24 12/26/24 Unknown Rx .COMPLEX #90 tabs potassium chloride 20 mEq 20 meq PO BID 21 days #42 tabs 11/24/24 12/26/24 Unknown Rx tablet,extended release (K-Tab) omeprazole 40 mg capsule,delayed 40 mg PO QAM #90 caps 12/18/24 12/26/24 Unknown Rx release Allergies Allergy/AdvReac Type Severity Reaction Status Date / Time adhesive tape Allergy tears skin Verified 12/26/24 08:49 off metoclopramide (From Reglan) Allergy Unknown Verified 12/26/24 08:49 morphine Allergy ALGY-Hives Verified 12/26/24 08:49 tamsulosin (From Flomax) Allergy ADR/ALGY-Hy Verified 12/26/24 08:49 potension zolpidem (From Ambien) Allergy Unknown Verified 12/26/24 08:49 hydrocodone AdvReac Mild Hypotension Verified 12/26/24 08:49 oxycodone AdvReac Mild Hypotension Verified 12/26/24 08:49 PFSH Acute PFSH: Medical History Hypothyroid ADAMS (dyspnea on exertion) Atrial fibrillation Ascending aortic aneurysm Patient had a CT of the chest on 07/14/2023. The ascending aorta was found to be 4.0 cm in diameter. Essentially unchanged CHF (congestive heart failure), NYHA class III EF 10/2022 43% on stress test, 50% on echo HTN (hypertension) Other iron deficiency anemias Anemia High risk medication use prednisone and leflunomide 12/2022 Peripheral arterial disease Chronic anticoagulation eliquis Unstable angina CAD (coronary artery disease) Seroma, postoperative Spinal stenosis, thoracic Degenerative disc disease, thoracic History of prostate cancer Urgency incontinence Renal cyst Acquired calcaneovarus deformity of both feet Lumbar stenosis with neurogenic claudication Orthostatic hypotension Venous insufficiency of both lower extremities Acute blood loss as cause of postoperative anemia Failed back surgical syndrome DDD (degenerative disc disease), lumbar Chronic back pain History of TIA (transient ischemic attack) Radiation cystitis Carotid artery disease Hx of cataract Closed fracture of right patella COVID-19 2020 Metatarsus adductus Osteoarthritis, generalized Seronegative rheumatoid arthritis Positive CORBY (antinuclear antibody) EDUARDO was negative in 2013 Gastroparesis GERD (gastroesophageal reflux disease) Cervical postlaminectomy syndrome FUAD (obstructive sleep apnea) Hyperlipidemia COPD (chronic obstructive pulmonary disease) H/O malignant neoplasm of skin Surgical History Status post revision of total replacement of right knee History of total bilateral knee replacement (TKR) Hx of excision of epidermal inclusion cyst Hx of excision of mass 04/12/23 Dr Fitzgerald- Elliptical excision of skin and subcutaneous back mass S/P laminectomy with spinal fusion S/P spinal fusion 02/2021 - T9-S1 Dr Delarosa History of penile implant Status post spinal arthrodesis S/P lumbar fusion History of cardiac cath ~2012 nonobstructive 10/2022 stress test EF 43 %, small areas prior infarcts RCA and LAD territories History of hip surgery RIGHT 04/11/19 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 History of total right hip arthroplasty History of total left hip arthroplasty History of abdominal aortic aneurysm (AAA) repair History of tonsillectomy and adenoidectomy Hx of appendectomy History of back surgery multiple procedures (>10) H/O neck surgery x 2 Hx of cholecystectomy H/O colonoscopy 2011 H/O esophagogastroduodenoscopy 2011 Family History Mother , Age 81 Bleeding disorder Clotting disorder CAD (coronary artery disease) 60s Cancer Stroke Father , Age 94 CAD (coronary artery disease) 80 Dementia Daughter Chronic kidney disease (CKD) Brother CAD (coronary artery disease) PR Cancer Denies family history of Diabetes Suicide Anesthesia complication Lung disease Social History Smoking and tobacco/nicotine status: never used tobacco/nicotine Alcohol intake: never Substance/Drug Use: never Household members: spouse Marital status: Current occupational status: retired Special danny needs: No Agree to transfusion: Yes Vitals/I&O/Wt Last Vital Signs Temp 98.4 F 01/03/25 16:07 Pulse 63 01/03/25 18:07 Resp 18 01/03/25 16:07 BP 125/71 01/03/25 18:07 Pulse Ox 95 01/03/25 18:07 O2 Del Method Room Air 01/03/25 18:07 Weight last 48 hrs Weight 100.698 kg Physical Exam Const: COMMON NORMALS: no acute distress and patient oriented x3 HENMT: OTHER: Right sikh, surgical site, with sean in place, about 3 cm long Eye: OTHER: Right eye ptosis, pupils equal round reactive to light Resp: COMMON NORMALS: normal respiratory effort, No retractions, No use of accessory muscles and clear to auscultation bilaterally AUSCULTATION: crackles and wheezes Cardio: COMMON NORMALS: regular rate, regular rhythm, S1 normal heart sound present and S2 normal heart sound present RATE: regular rate RHYTHM: regular rhythm HEART SOUNDS: S1 normal heart sound present and S2 normal heart sound present GI: OTHER: Abdomen soft, distended, scattered bowel sounds, no guarding, no rebound, rigidity, and evidence of anasarca Extremity: COMMON NORMALS: no calf tenderness OTHER: 3+ pitting edema Neuro: COMMON NORMALS: patient oriented x3, CN's II-XII intact bilaterally and moves all extremities Psych: COMMON NORMALS: mental status grossly normal Data 01/03/25 15:50 01/03/25 15:50 A&P Assessment and plan 1. Chest pain: 2. Atrial fibrillation: 3. Port-A-Cath in place: Plan: Chest pain - Serial EKGs, serial troponins, telemetry monitoring - Aspirin, statin, Coreg, switch to therapeutic Lovenox - Cardiac echo - N.p.o. midnight for stress test tomorrow morning Shortness of breath - Evidence of diastolic CHF exacerbation -CT chest - Cardiac echo - Please Velazquez catheter - Lasix 40 IV twice daily - Monitor creatinine, monitor potassium Abdominal distention, history of C. difficile - C. difficile testing - CT scan abdomen pelvis Bilateral lower extremity edema, venous ultrasound Full code Lovenox for DVT prophylaxis PDMP PDMP Reviewed: Not Reviewed Attestations Medical Necessity Statement*: Patient requires hospitalization, inpatient, greater than 2 midnights for chest pain, shortness of breath Diagnoses Chest pain R07.9 Atrial fibrillation I48.91 Port-A-Cath in place Z95.828
--- OUTSIDE RECORDS SUMMARY | 2025-01-03 18:12 | XMS_ITS | Encounter Summary ---
Author Organization [facility] Address [address] [place] [address] Care Team Providers Care Insurance And Financial Services Agent Name Role Phone Marsha Turner MD Primary Care Provider [phone]- [phone] Encounter Details Date Type Department Care Team (Late st Contact Info) Description 11/30/2007 Outpatient Historical [facility] Pain Management Procedures [address] 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 Date Signed: 12/08/07 [facility] Procedure Note Florentino Lovell W - 12/08/2007 Views of the lumbar spine with flexion and extension were obtained. Thereis a posterior fusion L4, L5 and S1. Hardware is intact. The neutral, flexion and extension views showthat alignment is within normal limits. Mild to moderate degenerative disc disease is also noted [id number]. - Dictated By: Florentino Lovell M.D. Electronically [...] agent documented in this encounter Care Teams Insurance And Financial Services Agent Relationship Specialty Start Date End Date Marsha Turner MD [address] [place] [address] PCP - General Internal Medicine 05/31/12 documented as of this encounter
--- OUTSIDE RECORDS SUMMARY | 2025-01-03 18:12 | XMS_ITS | Encounter Summary ---
Author Organization [facility] Address [address] [place] [address] Care Team Providers Care Informaticist Name Role Phone Marsha Turner MD Primary Care Provider [phone]- [phone] Encounter Details Date Type Department Care Team (Late st Contact Info) Description 11/05/2006 Outpatient Historical [facility] Operating Room [address] [place] [id number] Thomas Mack MD NO ADDRESS ON FILE Social History Tobacco Use Types Packs/Day Years Used Date Smoking Tobacco: Never Assessed Sex and Gender Information Value Date Recorded Sex Assigned at Not on file 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
--- OUTSIDE RECORDS SUMMARY | 2025-01-03 18:12 | XMS_ITS | Encounter Summary ---
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
--- OUTSIDE RECORDS SUMMARY | 2025-01-03 18:12 | XMS_ITS | Clinical Summary ---
Author Organization [facility] Address [address] 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 Gender Identity Not on file Sexual [...] years Discontinued Medical Devices Implanted Type Area Budget Assistant Device Identifier Shelf Expiration Date Model / Serial / Lot Vitoss Foam Ba 1.2ml [id number] - Sna Implanted:Qty: 1 on 04/18/2013 Biological N/A: Spine Cervical Anterior LISA- SPINE 10/13/2014 / NA / [id number] [place] C Stand Alone Cage [id number] Implanted:Qty: 1 on 04/18/2013 by John Castillo MD Cage N/A: Spine Cervical Anterior LISA- SPINE [id number] / LD [id number] / NA Cement Palacos R+G [id number] - Sna Implanted:Qty: 2 on 09/29/2012 Cement Left: Knee SHIRA [employer] INC 01/13/201642-9318-966-01 / NA / NA Hemostatic Gelfoam Powder 1gm [id number] - [id number] Implanted:Qty: 1 on 05/20/2015 by Dee Casillas MD Hemostatic N/A: Spine Thoracic PFIZER- PHARM 10/12/[id number] / / [id number] Hemostatic Gelfoam Powder 1gm [id number] - [id number] Implanted:Qty: 1 on 09/14/2017 by Dee Casillas MD Hemostatic N/A: Back PFIZER- PHARM 11/13/2019 [id number] / / [id number] Gel-Flow Nt Implanted:Qty: 1 on 08/12/2018 by Dee Casillas MD Hemostatic N/A: Spine Cervical Anterior PFIZER- PHARMACIA AND UPJOHN I 08/04/2019 / / [id number] Bearing Tib Vng 10mm 79/83mm 117534 - [id number] Implanted:Qty: 1 on 09/29/2012 Knee Left: Knee BIOMET INC 05/12/2017 796067 / / [id number] Comp Fem Vng Ps Sz72.5 Lt 553942 - [id number] Implanted:Qty: 1 on 09/29/2012 Knee Left: Knee BIOMET INC 06/12/2022 [id number] / / [id number] Comp Tib Cocr Finned 83mm 099742 - [id number] Implanted:Qty: 1 on 09/29/2012 Knee Left: Knee BIOMET INC 03/14/2022 098396 / / [id number] Standard Patella Implanted:Qty: 1 on 09/29/2012 by Dylon Abreu MD Knee Left: Knee BIOMET- ORTHOPED[employer] INC 07/12/2017 369981 / / [id number] Plate Hybrid Cerv 12mm [id number] - Sld [id number] Implanted:Qty: 1 on 04/18/2013 Plate N/A: Spine Cervical Anterior LISA- SPINE 91484810 / LD [id number] / NA Issac Lgcy Crv Ti 5.9m597pe 7580575 - [id number] Implanted:Qty: 1 on 09/14/2017 by Dee Casillas MD Issac N/A: Back MEDTRONIC- SOFAMOR DANEK 09/15/2019 2822726 / / [id number] Issac Lgcy Crv Ti 5.5m261em 4247308 - [id number] Implanted:Qty: 1 on 09/14/2017 by Dee Casillas MD Issac N/A: Back MEDTR[employer]- SOFAMOR DANEK 09/15/2019 4161610 / / [id number] Issac Std 3.4i410vu 7440882 - [id number] Implanted:Qty: 2 on 08/12/2018 by Dee Casillas MD Issac N/A: Spine Cervical Anterior MEDTRONIC- SOFAMOR DANEK 1868357 / [id number] / Screw Rh St Va 4.0x14mm 10824375 - Sld [id number] Implanted:Qty: 2 on 04/18/2013 Screw N/A: Spine Cervical Anterior LISA- SPINE [id number] / LD [id number] / NA Screw Sd 3.5x10mm 57645973 - Sld [id number] Implanted:Qty: 2 on 04/18/2013 Screw N/A: Spine Cervical Anterior LISA- SPINE 52140610 / LD [id number] / NA Screw Rh Sd Fa 4.0x14mm 62622098 - Sld [id number] Implanted:Qty: 1 on 04/18/2013 Screw N/A: Spine Cervical Anterior LISA- SPINE [id number] / LD [id number] / NA Screw Rh St Fa 4.0x14mm 25564524 - Sld [id number] Implanted:Qty: 1 on 04/18/2013 Screw N/A: Spine Cervical Anterior LISA- SPINE 29792712 / LD [id number] / NA Screw Legacy Ma 6.5x50mm 10153292 - [id number] Implanted:Qty: 1 on 09/14/2017 by Dee Casillas MD Screw N/A: Back MEDTR[employer]- SOFAMOR DANEK 01715156 / / [id number] Screw Legacy Ma 6.5x50mm 25921210 - [id number] Implanted:Qty: 1 on 09/14/2017 by Dee Casillas MD Screw N/A: Back MEDTRONIC- SOFAMOR DANEK 26534540 / / [id number] Screw Legacy Ma 7.5x50mm 55887760 - [id number] Implanted:Qty: 1 on 09/14/2017 by Dee Casillas MD Screw N/A: Back MEDTR[employer]IC- SOFAMOR DANEK 18653752 / / [id number] Screw Legacy Ma 7.5x50mm 43311983 - [id number] Implanted:Qty: 1 on 09/14/2017 by Dee Casillas MD Screw N/A: Back MEDTRONIC- SOFAMOR DANEK 35837779 / / [id number] Set Screw Break Off Ti 5876561 - [id number] Implanted:Qty: 1 on 09/14/2017 by Dee Casillas MD Screw N/A: Back MEDTRONIC- SOFAMOR DANEK 4751959 / / [id number] Set Screw Break Off Ti 9391731 - [id number] Implanted:Qty: 1 on 09/14/2017 by Dee Casillas MD Screw N/A: Back MEDTRONIC- SOFAMOR DANEK 0223185 / / [id number] Set Screw Break Off Ti 0798802 - [id number] Implanted:Qty: 1 on 09/14/2017 by Dee Casillas MD Screw N/A: Back MEDTRONIC- SOFAMOR DANEK 1646283 / / [id number] Set Screw Break Off Ti 3267253 - [id number] Implanted:Qty: 1 on 09/14/2017 by Dee Casillas MD Screw N/A: Back MEDTRONIC- SOFAMOR DANEK 8493733 / / [id number] Set Screw Break Off Ti 5165840 - [id number] Implanted:Qty: 1 on 09/14/2017 by Dee Casillas MD Screw N/A: Back MEDTRONIC- SOFAMOR DANEK 0555823 / / [id number] Set Screw Break Off Ti 0155219 - [id number] Implanted:Qty: 1 on 09/14/2017 by Dee Casillas MD Screw N/A: Back MEDTRONIC- SOFAMOR DANEK 1718445 / / [id number] Set Screw Break Off Ti 8116118 - [id number] Implanted:Qty: 1 on 09/14/2017 by eDe Casillas MD Screw N/A: Back MEDTRONIC- SOFAMOR DANEK 4587645 / / [id number] Set Screw Break Off Ti 3191440 - [id number] Implanted:Qty: 1 on 09/14/2017 by Dee Casillas MD Screw N/A: Back MEDTRONIC- SOFAMOR DANEK 0847544 / / [id number] Infinity Screw Implanted:Qty: 7 on 08/12/2018 by Dee Casillas MD Screw N/A: Spine Cervical Anterior MEDTRONIC- NEUROSURGERY 3601652 / [id number] / Description:PER INVOICE Infinity Screw Implanted:Qty: 2 on 08/12/2018 by Dee Casillas MD Screw N/A: Spine Cervical Anterior MEDTRONIC- NEUROSURGERY 0225092 / [id number] / Description:PER INVOICE Infinity Screw Implanted:Qty: 2 on 08/12/2018 by Dee Casillas MD Screw N/A: Spine Cervical Anterior MEDTRONIC- NEUROSURGERY 7720651 / [id number] / Description:PER INVOICE Infinity Set Screws Implanted:Qty: 11 on 08/12/2018 by Dee Casillas MD Screw N/A: Spine Cervical Anterior 9535970 / [id number] / Description:PER INVOICE Spacer As 5n03d34h5y 37975080 - Sld [id number] Implanted:Qty: 1 on 04/18/2013 Spacer N/A: Spine Cervical Anterior LISA- SPINE 98243798 / LD [id number] / NA Crosslink Lp Mltspn L=1.75-2.15 811-322 - [id number] Implanted:Qty: 1 on 09/14/2017 by Dee Casillas MD Spine N/A: Back MEDTRONIC- SOFAMOR ALVINAEK 09/15/2019 811-322 / / [id number] Description:09/17 inv pricing Putty Bio Dbm 10ml 8288591 - [id number] Implanted:Qty: 1 on 09/14/2017 by Dee Casillas MD Tissue N/A: Back LISA- HOWMEDICA INT INC 05/27/2019 0799049 / / [id number] Putty Bio Dbm 10ml 7083138 - [id number] Implanted:Qty: 1 on 09/14/2017 by Dee Casillas MD Tissue N/A: Back LISA- HOWMEDICA INT INC 05/16/2019 9988413 / / [id number] Readigraft Canc Chips 30ml Can30 14bp - [id number] Implanted:Qty: 1 on 09/14/2017 by Dee Casillas MD Tissue N/A: Back Instaradio 08/20/2019 CAN30 14BP / / [id number] Putty Bio Dbm 10ml 5454332 - [id number] Implanted:Qty: 1 on 08/12/2018 by Dee Casillas MD Tissue N/A: Spine Cervical Anterior LISA- HOWMEDICA INT INC 04/13/2020 0595282 / / [id number] Putty Bio Dbm 10ml 0558402 - [id number] Implanted:Qty: 1 on 08/12/2018 by Dee Casillas MD Tissue N/A: Spine Cervical Anterior LISA- HOWMEDICA INT INC 04/13/2020 8992125 / / [id number] Explanted Type Area Budget Assistant Device Identifier Shelf Expiration Date Model / Serial / Lot Stim Spnl Cord Precision Spectra [id number] - [id number] Implanted:Qty : 1 on 05/20/2015 by Dee Casillas MD Explanted:Qty : 1 on 06/15/2016 by Dee Casillas MD Neuro Right: Spine Thoracic [employer]- NEURO MODULATION 05/02/2017 LA-1132 / / [id number] Infinity Set Screws Explanted:Qty : 2 on 08/12/2018 Screw N/A: Spine Cervical Anterior MEDTRONIC- NEUROSURGERY 1562748 / [id number] / Description:PER INVOICE Cover Edge 32 70cm 4x8 Child Care Nurse Kit [id number] Implanted:Qty : 1 on 05/20/2015 by Dee Casillas MD Explanted:Qty : 1 on 06/15/2016 by Dee Casillas MD N/A: Spine Thoracic [employer] INC 02/11/2017 / [id number] / [id number] Set Screws X4, Blockers X4, And 2 Rods Explanted:Qty : 1 on 09/14/2017 by Dee Casillas MD N/A: Spine Cervical Anterior Insurance MEDICARE PART A AND B wireWAX * Guarantor: KOJO MARINELLI Account Type Relation to Patient Date of Phone Billing Address Personal/Family [address] [place] [address] RX [facility] Medicare Part D Care Teams Chief Substation Operator Relationship Specialty Start Date End Date Marsha Turner MD [address] [place] [address] PCP - General 06/12/20
--- OUTSIDE RECORDS SUMMARY | 2025-01-03 18:12 | XMS_ITS | Encounter Summary ---
Author Organization [facility] Address [address] [place] [address] Care Team Providers Care Franchise Business Consultant Name Role Phone Marsha Turner MD Primary Care Provider +1- [phone] Encounter Details Date Type Department Care Team (Latest Contact Info) Description 10/05/2006 Outpatient Historical [facility] Operating Room [address] [place] [phone] Thomas Mack MD NO ADDRESS ON FILE Encounters for Unspecified Administrative Purpose (Primary Dx) Social History Tobacco Use Types Packs/Day Years Used Date Smoking Tobacco: Never Assessed Sex and Gender Information Value Date Recorded Sex Assigned at Not on file 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
--- OUTSIDE RECORDS SUMMARY | 2025-01-03 18:12 | XMS_ITS | Encounter Summary ---
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
--- OUTSIDE RECORDS SUMMARY | 2025-01-03 18:12 | XMS_ITS | Encounter Summary ---
Author Organization [facility] Address [address] [place] [address] Care Team Providers Care Ibm Bpm Developer Name Role Phone Marsha Turner MD Primary Care Provider +1- [phone] Encounter Details Date Type Department Care Team (Late st Contact Info) Description 08/30/2007 [facility] [address] [place] [address] Thomas Mack MD NO ADDRESS ON FILE Malignant Neoplasm of Prostate (CMS/HCC) Social History Tobacco Use Types Packs/Day Years Used Date Smoking Tobacco: Never Assessed Sex and Gender Information Value Date Recorded Sex Assigned at Not on file 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 Gender Identity Not on file Sexual Orientation Not on file documented as of this encounter Plan of Treatment Not on file documented as of this encounter Procedures Procedure Name Priority Date/Time Associated Diagnosis Comments PSA MEDICARE DIAGNOSTIC Routine 08/30/2007 1:25 PM CDT documented in this encounter Results * PSA MEDICARE DIAGNOSTIC (08/30/2007 1:25 PM CDT) PSA 1.0 0.0 - 4.0 ng/mL [facility] Blood specimen (specimen) 08/30/2007 1:25 PM CDT 08/30/2007 3:26 PM CDT us Thomas Mack MD CHEMISTRY ORDERABLES F inal Result [facility] CLIA# [id number] [address] [place] [address] documented in this encounter Visit Diagnoses Diagnosis Malignant neoplasm of prostate (CMS/HCC) Malignant neoplasm of prostate documented in this encounter Care Teams Ibm Bpm Developer Relationship Specialty Start Date End Date Marsha Turner MD [address] [place] [address] PCP - General Internal Medicine 05/31/12 documented as of this encounter
--- OUTSIDE RECORDS SUMMARY | 2025-01-03 18:12 | XMS_ITS | Encounter Summary ---
Author Organization [facility] Address [address] [place] [address] Care Team Providers Care Abrasive Wheel Molder Name Role Phone Marsha Turner MD Primary Care Provider +1- [phone] Encounter Details Date Type Department Care Team (Late st Contact Info) Description 07/25/2007 Outpatient [facility] [address] [place] [address] 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
--- OUTSIDE RECORDS SUMMARY | 2025-01-03 18:12 | XMS_ITS | Encounter Summary ---
Author Organization [facility] Address [address] [place] [address] Care Team Providers Care Extrusion Line Operator Name Role Phone Marsha Turner MD Primary Care Provider +1- [phone] Encounter Details Date Type Department Care Team (Late st Contact Info) Description 10/17/2007 Outpatient Historical [facility] PreAdmission [place] [address] [place] [address] Thomas Mack MD NO ADDRESS ON FILE Social History Tobacco Use Types Packs/Day Years Used Date Smoking Tobacco: Never Assessed Sex and Gender Information Value Date Recorded Sex Assigned at Not on file 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 Gender Identity Not on file Sexual Orientation Not on file documented as of this encounter Miscellaneous Notes * Scanned Form - Sgf Scanning, Test - 03/31/2010 7:35 AM HARDBOARD PRESS OPERATOR documented in this encounter Plan of Treatment [...] 6:43 PM CDT) COLOR UA Yellow Straw [facility] PROTEIN UA NEGATIVE NEGATIVE [facility] BLOOD UA NEGATIVE NEGATIVE [facility] NITRITE UA NEGATIVE NEGATIVE [facility] UROBILINOGEN UA 0.2 0.2 [facility] CLARITY UA Clear Clear [facility] SPECIFIC GRAVITY UA 1.025 <=1.005 [facility] GLUCOSE UA NEGATIVE NEGATIVE [facility] PH UA 5.5 5.0 - 9.0 [facility] BILIRUBIN UA NEGATIVE NEGATIVE [facility] LEUKOCYTE ESTERASE UA NEGATIVE NEGATIVE [facility] KETONES UA NEGATIVE NEGATIVE [facility] MICRO EXAM No No [facility] Urine specimen (specimen) 10/17/2007 6:43 PM CDT 10/17/2007 6:43 PM CDT Thomas Mack MD URINE ORDERABLES Final Result Performing Organization Address [facility] de Phone Number [facility] CLIA# [id number] [address] [place] [address] * PSA MEDICARE SCREEN (10/17/2007 6:00 PM CDT) PSA 0.8 0.0 - 4.0 ng/mL [facility] Blood specimen (specimen) 10/17/2007 6:00 PM CDT 10/17/2007 6:05 PM CDT Thomas Mack MD CHEMISTRY ORDERABLES C OM Final Result Performing Organization Address [facility] de Phone Number [facility] CLIA# [id number] [address] [place] [address] * (ABNORMAL) CBC WITH DIFFERENTIAL (10/17/2007 6:00 PM CDT) MONOCYTES 8.9 2.0 - 10.0 % [facility] RDW 13.8 11.0 - 14.5 % [facility] MONOCYTE ABSOLUTE 0.5 0.1 - 0.6 K/ul [facility] WBC 5.3 4.8 - 10.8 K/ul [facility] NEUTROPHILS 72.9 42.2 - 75.2 % [facility] MCH 29.6 27.0 - 34.0 pg [facility] NEUTROPHIL ABSOLUTE 3.9 2.0 - 8.0 K/ul [facility] HEMATOCRIT 38.6(L) 41.0 - 53.0 % [facility] PLATELETS 190 140 - 440 K/ul [facility] EOSINOPHIL ABSOLUTE 0.1 0.0 - 0.7 K/ul [facility] EOSINOPHILS 1.5 0.0 - 7.0 % [facility] RBC 4.29(L) 4.60 - 6.20 Mil/ul [facility] MCHC 32.9 30.0 - 35.0 g/dL [facility] LYMPHOCYTE ABSOLUTE 0.8(L) 1.2 - 4.0 K/ul [facility] LYMPHOCYTES 15.8(L) 24.0 - 44.0 % [facility] MCV 90.0 84.0 - 103.0 Fl [facility] BASOPHILS 0.9 0.0 - 1.0 % [facility] MPV 9.6 8.9 - 12.8 Fl [facility] BASOPHILS ABSOLUTE 0.1 0.0 - 0.2 K/ul [facility] HEMOGLOBIN 12.7(L) 14.0 - 18.0 g/dL [facility] Blood specimen (specimen) 10/17/2007 6:00 PM CDT 10/17/2007 6:05 PM CDT Thomas Mack MD HEMATOLOGY ORDERABLES Final Result Performing Organization Address [facility] de Phone Number [facility] CLIA# [id number] [address] [place] [address] * ANTIBODY SCREEN (10/17/2007 6:00 PM CDT) [facility] Signature ANTIBODY SCREEN Negative [facility] Blood specimen (specimen) 10/17/2007 6:00 PM CDT 10/17/2007 6:05 PM CDT Thomas Mack MD BLOOD BANK ORDERABLES Final Result Performing Organization Address [facility] de Phone Number [facility] CLIA# [id number] [address] [place] [address] * ABORH TYPING (10/17/2007 6:00 PM CDT) ABO/RH TYPE A Positive [facility] Blood specimen (specimen) 10/17/2007 6:00 PM CDT 10/17/2007 6:05 PM CDT Thomas Mack MD BLOOD BANK ORDERABLES Final Result Performing Organization Address [facility] de Phone Number [facility] CLIA# [id number] [address] [place] [address] * PTT (10/17/2007 6:00 PM CDT) PTT 31.3 22.5 - 36.5 Secs [facility] Comment: Therapeutic Range: Hi-level PE/DVT heparin protocol 80.1 -95.0 sec Lo-level PE/DVT heparin protocol 67.1 - 80.0 sec Cardiac Heparin Protocol 67.1 - 85.0 sec Neuro Heparin Protocol 67.1 - 80.0 sec As of 06/02/2007 note change in APTT Normal Range. Blood specimen (specimen) 10/17/2007 6:00 PM CDT 10/17/2007 6:05 PM CDT Thomas Mack MD HEMATOLOGY ORDERABLES Final Result Performing Organization Address [facility] de Phone Number [facility] CLIA# [id number] [address] [place] [address] * PROTIME-INR (10/17/2007 6:00 PM CDT) PROTIME 13.6 12.8 - 15.8 Secs [facility] Comment:As of 2007 not e change in normal range. INR 0.9 [facility] Comment: Expected Values for INR: DVT/PE Goal INR 2.5; range 2.0 - 3.0 Valve Replacement Tissue Goal INR 2.5; range 2.0 - 3.0 Mechanical Goal INR 3.0; range 2.5 - 3.5 POST-WV Goal INR 2.5; range 2.0 - 3.0 or Goal 3.0; range 2.5 - 3.5 Atrial Fibrillation Goal INR 2.5; range 2.0 - 3.0 Ischemic Stroke Goal INR 2.5; range 2.0 - 3.0 For additional information see Guidelines for Anticoagulation available from the pharmacy Nichelle Mike [phone] Blood specimen (specimen) 10/17/2007 6:00 PM CDT 10/17/2007 6:05 PM CDT us Thomas Mack MD HEMATOLOGY ORDERABLES Final Result [facility] CLIA# [id number] [address] [place] [address] * COMPREHENSIVE METABOLIC PANEL (10/17/2007 6:00 PM CDT) CREATININE 1.0 0.7 - 1.5 mg/dL [facility] ALT 32 4 - 36 IU/L [facility] CALCIUM 10.0 8.4 - 10.5 mg/dL [facility] OSMOLALITY, CALCULATED 287 275 - 295 mOsm/Kg [facility] GLUCOSE 108 70 - 110 mg/dL [facility] ALKALINE PHOSPHATASE 67 25 - 100 U/L [facility] CHLORIDE 108 95 - 110 mEq/L [facility] ALBUMIN/GLOBULIN RATIO 1.5 1.0 - 2.3 [facility] TOTAL PROTEIN 7.5 6.3 - 8.2 g/dL [facility] SODIUM 139 136 - 145 mEq/L [facility] BILIRUBIN TOTAL 0.4 0.3 - 1.2 mg/dL [facility] BUN 16 9 - 20 mg/dL [facility] CO2 26 22 - 32 mmol/l [facility] ANION GAP 9 9 - 20 mEq/L [facility] AST 27 8 - 33 U/L [facility] POTASSIUM 3.7 3.5 - 5.0 mEq/L [facility] GLOBULIN (CALC) 3.0 2.4 - 3.9 g/dL [facility] ALBUMIN 4.5 3.5 - 5.0 g/dL [facility] Blood specimen (specimen) 10/17/2007 6:00 PM CDT 10/17/2007 6:05 PM CDT us Thomas Mack MD CHEMISTRY ORDERABLES F inal Result [facility] CLIA# [id number] [address] [place] [address] documented in this encounter Visit Diagnoses Not on filedocumented in this encounter Care Teams Extrusion Line Operator Relationship Specialty Start Date End Date Marsha Turner MD [address] [place], [place] [address] PCP - General Internal Medicine 05/31/12 documented as of this encounter
--- OUTSIDE RECORDS SUMMARY | 2025-01-03 18:12 | XMS_ITS | Encounter Summary ---
Author Organization [facility] Address [address] [place] [address] Care Team Providers Care Molasses And Caramel Operator Name Role Phone Marsha Turner MD Primary Care Provider +1- [phone] Encounter Details Date Type Department Care Team (Late st Contact Info) Description 12/08/2007 Outpatient Historical [facility] DEFAULT DEPARTMENT Dee Casillas MD [address] [phone] Social History Tobacco Use Types Packs/Day Years Used Date Smoking Tobacco: Never Assessed Sex and Gender Information Value Date Recorded Sex Assigned at Not on file 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
--- OUTSIDE RECORDS SUMMARY | 2025-01-03 18:12 | XMS_ITS | Encounter Summary ---
Author Organization [facility] Address [address] [place] [address] Care Team Providers Care Assistant Education Director Name Role Phone Marsha Turner MD Primary Care Provider [phone] Encounter Details Date Type Department Care Team (Late st Contact Info) Description 01/27/2007 Outpatient Historical [facility]- 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
--- OUTSIDE RECORDS SUMMARY | 2025-01-03 18:13 | XMS_ITS | Encounter Summary ---
Author Organization [facility] Address [address] [place] [address] Care Team Providers Care Process Development Chemist Name Role Phone Marsha Turner MD Primary Care Provider [phone]- [phone] Encounter Details Date Type Department Care Team (Latest Contact Info) Description 03/02/2008 Outpatient [facility] [address] [facility] [address] [place] [address] Aliyah Lange, PA [address] [place] [address] Headache; Cervicalgia; Spinal Stenosis in Cervical Region; Cervical Spondylosis without Myelopathy Social History Tobacco Use Types Packs/Day Years Used Date Smoking Tobacco: Never Assessed Sex and Gender Information Value Date Recorded Sex Assigned at Not on file Legal Sex Male 6:16 AM MANAGER LEAN Gender Identity Not on file Sexual Orientation Not on file documented as of this encounter Plan of Treatment Not on file documented as of this encounter Procedures Procedure Name Priority Date/Time Associated Diagnosis Comments XR LUMBAR SPINE 2 OR 3 VW Routine 03/05/2008 1:38 PM MANAGER LEAN documented in this encounter Results * XR LUMBAR SPINE 2 OR 3 VW (03/05/2008 1:38 PM MANAGER LEAN) Anatomical Region Laterality Modality Spine Other 03/05/2008 1:38 PM MANAGER LEAN Narrative 03/06/2008 10:42 AM MANAGER LEAN Exam: Spine - Lumbar Date/Time of Exam: [...] myelopathy documented in this encounter Care Teams Process Development Chemist Relationship Specialty Start Date End Date Marsha Turner MD [address] [place] [id number] PCP - General Internal Medicine 05/31/12 documented as of this encounter
--- OUTSIDE RECORDS SUMMARY | 2025-01-03 18:13 | XMS_ITS | Encounter Summary ---
Author Organization [facility] Address [address] [place] [address] Care Team Providers Care Concession Manager Name Role Phone Marsha Turner MD Primary Care Provider +1- [phone] Encounter Details Date Type Department Care Team (Late st Contact Info) Description 01/03/2008 Outpatient Historical HIS IN BED Dee Casillas MD [address] [address] Social History Tobacco Use Types Packs/Day Years Used Date Smoking Tobacco: Never Assessed Sex and Gender Information Value Date Recorded Sex Assigned at Not on file Legal Sex Male 6:16 AM RESIDENTIAL INTERIOR DESIGNER Gender Identity Not on file Sexual Orientation Not on file documented as of this encounter Plan of Treatment Not on file documented as of this encounter Procedures Procedure Name Priority Date/Time Associated Diagnosis Comments CBC WITH DIFFERENTIAL Routine 01/26/2008 4:13 AM RESIDENTIAL INTERIOR DESIGNER COMPREHENSIVE METABOLIC PANEL Routine 01/26/2008 4:13 AM RESIDENTIAL INTERIOR DESIGNER CBC WITH DIFFERENTIAL Routine 01/25/2008 3:17 AM RESIDENTIAL INTERIOR DESIGNER COMPREHENSIVE METABOLIC PANEL Routine 01/25/2008 3:17 AM RESIDENTIAL INTERIOR DESIGNER POC GLUCOSE Routine 01/25/2008 12:12 AM RESIDENTIAL INTERIOR DESIGNER POC GLUCOSE Routine 01/24/2008 7:55 PM RESIDENTIAL INTERIOR DESIGNER XR FLUORO GREATER THAN 1 HOUR Routine 01/24/2008 4:26 PM RESIDENTIAL INTERIOR DESIGNER HEMOGLOBIN AND HEMATOCRIT Stat 01/24/2008 3:06 PM RESIDENTIAL INTERIOR DESIGNER ABORH TYPING Stat 01/24/2008 9:50 AM RESIDENTIAL INTERIOR DESIGNER TYPE AND CROSSMATCH Stat 01/24/2008 9 :50 AM RESIDENTIAL INTERIOR DESIGNER BLOOD BANK ANTIBODY SCREEN Stat 01/24/2008 9:50 AM RESIDENTIAL INTERIOR DESIGNER documented in this encounter Results * (ABNORMAL) COMPREHENSIVE METABOLIC PANEL (01/26/2008 4:13 AM RESIDENTIAL INTERIOR DESIGNER) ALKALINE PHOSPHATASE 44 25 - 100 U/L [facility] CHLORIDE 108 95 - 110 mEq/L [facility] OSMOLALITY, CALCULATED 281 275 - 295 mOsm/Kg [facility] GLOBULIN (CALC) 2.1(L) 2.4 - 3.9 g/dL [facility] TOTAL PROTEIN 5.1(L) 6.3 - 8.2 g/dL [facility] SODIUM 137 136 - 145 mEq/L [facility] BILIRUBIN TOTAL 0.4 0.3 - 1.2 mg/dL [facility] CO2 26 22 - 32 mmol/l [facility] BUN 7(L) 9 - 20 mg/dL [facility] AST 22 8 - 33 U/L [facility] ALBUMIN/GLOBULIN RATIO 1.4 1.0 - 2.3 [facility] POTASSIUM 3.9 3.5 - 5.0 mEq/L [facility] ANION GAP 7(L) 9 - 20 mEq/L [facility] ALBUMIN 3.0(L) 3.5 - 5.0 g/dL [facility] CREATININE 0.6(L) 0.7 - 1.5 mg/dL [facility] ALT 13 4 - 36 IU/L [facility] CALCIUM 8.1(L) 8.4 - 10.5 mg/dL [facility] GLUCOSE 113(H) 70 - 110 mg/dL [facility] Blood specimen (specimen) 01/26/2008 4:13 AM RESIDENTIAL INTERIOR DESIGNER 01/26/2008 4:49 AM RESIDENTIAL INTERIOR DESIGNER us Dee Casillas MD CHEMISTRY ORDERABLES Final Resul t Performing Organization Address City/State/[facility] Co de Phone Number INTERFACE SYSTEM Refer to clinic/hospital department [facility] CLIA# [id number] [address] [place] [address] * (ABNORMAL) CBC WITH DIFFERENTIAL (01/26/2008 4:13 AM RESIDENTIAL INTERIOR DESIGNER) WBC 5.4 4.8 - 10.8 K/ul [facility] MCH 29.9 27.0 - 34.0 pg [facility] NEUTROPHIL ABSOLUTE 4.0 2.0 - 8.0 K/ul [facility] NEUTROPHILS 72.9 42.2 - 75.2 % [facility] HEMATOCRIT 28.4(L) 41.0 - 53.0 % [facility] EOSINOPHILS 1.3 0.0 - 7.0 % [facility] PLATELETS 187 140 - 440 K/ul [facility] EOSINOPHIL ABSOLUTE 0.1 0.0 - 0.7 K/ul [facility] RBC 3.14(L) 4.60 - 6.20 Mil/ul [facility] LYMPHOCYTES 13.6(L) 24.0 - 44.0 % [facility] MCHC 33.1 30.0 - 35.0 g/dL [facility] LYMPHOCYTE ABSOLUTE 0.7(L) 1.2 - 4.0 K/ul [facility] MCV 90.4 84.0 - 103.0 Fl [facility] MPV 9.0 8.9 - 12.8 Fl [facility] BASOPHILS ABSOLUTE 0.0 0.0 - 0.2 K/ul [facility] BASOPHILS 0.4 0.0 - 1.0 % [facility] HEMOGLOBIN 9.4(L) 14.0 - 18.0 g/dL [facility] RDW 13.9 11.0 - 14.5 % [facility] MONOCYTE ABSOLUTE 0.6 0.1 - 0.6 K/ul [facility] MONOCYTES 11.8(H) 2.0 - 10.0 % [facility] Blood specimen (specimen) 01/26/2008 4:13 AM RESIDENTIAL INTERIOR DESIGNER 01/26/2008 4:49 AM RESIDENTIAL INTERIOR DESIGNER us Dee Casillas MD HEMATOLOGY ORDERABLES Final Resu lt INTERFACE SYSTEM Refer to clinic/hospital department [facility] CLIA# [id number] [address] [place] [address] * (ABNORMAL) COMPREHENSIVE METABOLIC PANEL (01/25/2008 3:17 AM RESIDENTIAL INTERIOR DESIGNER) CALCIUM 7.7(L) 8.4 - 10.5 mg/dL [facility] CREATININE 0.7 0.7 - 1.5 mg/dL [facility] ALT 18 4 - 36 IU/L [facility] GLUCOSE 127(H) 70 - 110 mg/dL [facility] CHLORIDE 111(H) 95 - 110 mEq/L [facility] OSMOLALITY, CALCULATED 283 275 - 295 mOsm/Kg [facility] ALKALINE PHOSPHATASE 47 25 - 100 U/L [facility] GLOBULIN (CALC) 1.8(L) 2.4 - 3.9 g/dL [facility] SODIUM 138 136 - 145 mEq/L [facility] BILIRUBIN TOTAL 0.4 0.3 - 1.2 mg/dL [facility] TOTAL PROTEIN 4.8(L) 6.3 - 8.2 g/dL [facility] BUN 8(L) 9 - 20 mg/dL [facility] AST 21 8 - 33 U/L [facility] CO2 27 22 - 32 mmol/l [facility] ALBUMIN/GLOBULIN RATIO 1.7 1.0 - 2.3 [facility] ALBUMIN 3.0(L) 3.5 - 5.0 g/dL [facility] POTASSIUM 3.7 3.5 - 5.0 mEq/L [facility] ANION GAP 4(L) 9 - 20 mEq/L [facility] Blood specimen (specimen) 01/25/2008 3:17 AM RESIDENTIAL INTERIOR DESIGNER 01/25/2008 3:41 AM RESIDENTIAL INTERIOR DESIGNER us Dee Casillas MD CHEMISTRY ORDERABLES Final Resul t INTERFACE SYSTEM Refer to clinic/hospital department [facility] CLIA# [id number] [address] [place] [address] * (ABNORMAL) CBC WITH DIFFERENTIAL (01/25/2008 3:17 AM RESIDENTIAL INTERIOR DESIGNER) MCV 90.4 84.0 - 103.0 Fl [facility] MPV 9.0 8.9 - 12.8 Fl [facility] BASOPHILS 0.6 0.0 - 1.0 % [facility] BASOPHILS ABSOLUTE 0.0 0.0 - 0.2 K/ul [facility] HEMOGLOBIN 9.1(L) 14.0 - 18.0 g/dL [facility] RDW 14.2 11.0 - 14.5 % [facility] MONOCYTES 10.1(H) 2.0 - 10.0 % [facility] MONOCYTE ABSOLUTE 0.5 0.1 - 0.6 K/ul [facility] WBC 5.1 4.8 - 10.8 K/ul [facility] MCH 30.2 27.0 - 34.0 pg [facility] NEUTROPHILS 73.7 42.2 - 75.2 % [facility] NEUTROPHIL ABSOLUTE 3.7 2.0 - 8.0 K/ul [facility] HEMATOCRIT 27.2(L) 41.0 - 53.0 % [facility] PLATELETS 179 140 - 440 K/ul [facility] EOSINOPHIL ABSOLUTE 0.0 0.0 - 0.7 K/ul [facility] EOSINOPHILS 0.6 0.0 - 7.0 % [facility] RBC 3.01(L) 4.60 - 6.20 Mil/ul [facility] LYMPHOCYTES 15.0(L) 24.0 - 44.0 % [facility] MCHC 33.5 30.0 - 35.0 g/dL [facility] LYMPHOCYTE ABSOLUTE 0.8(L) 1.2 - 4.0 K/ul [facility] Blood specimen (specimen) 01/25/2008 3:17 AM RESIDENTIAL INTERIOR DESIGNER 01/25/2008 3:41 AM RESIDENTIAL INTERIOR DESIGNER Dee Casillas MD HEMATOLOGY ORDERABLES Final Resu lt Performing Organization Address City/[facility] de Phone Number INTERFACE SYSTEM Refer to clinic/hospital department [facility] CLIA# [id number] [address] [place] [address] * (ABNORMAL) POC GLUCOSE (01/25/2008 12:12 AM RESIDENTIAL INTERIOR DESIGNER) GLUCOSE POC 131(H) 60 - 100 mg/dL [facility] Venous blood specimen (specimen) 01/25/2008 12:12 AM RESIDENTIAL INTERIOR DESIGNER 01/25/2008 2:51 AM RESIDENTIAL INTERIOR DESIGNER Dee Casillas MD POINT OF CARE TESTING Final Resu lt Performing Organization Address [facility] Phone Number INTERFACE SYSTEM Refer to clinic/hospital department [facility] CLIA# [id number] [address] [place] [address] * (ABNORMAL) POC GLUCOSE (01/24/2008 7:55 PM RESIDENTIAL INTERIOR DESIGNER) GLUCOSE POC 129(H) 60 - 100 mg/dL [facility] Venous blood specimen (specimen) 01/24/2008 7:55 PM RESIDENTIAL INTERIOR DESIGNER 01/25/2008 2:51 AM RESIDENTIAL INTERIOR DESIGNER Result [facility] us Dee Casillas MD POINT OF CARE TESTING Final Resu lt Performing Organization Address [facility] de Phone Number INTERFACE SYSTEM Refer to clinic/hospital department [facility] CLIA# [id number] [address] [place] [address] * XR FLUORO > 1 HOUR (01/24/2008 4:26 PM RESIDENTIAL INTERIOR DESIGNER) Anatomical Region Laterality Modality Other 01/24/2008 4:26 PM RESIDENTIAL INTERIOR DESIGNER Narrative 01/24/2008 4:26 PM RESIDENTIAL INTERIOR DESIGNER Finalized by interface cleanup utility. No report expected. Procedure Note 03/25/2008 Finalized by interface cleanup utility. No report expected. us Dee Casillas MD DIAGNOSTIC IMAGING ORDERABLES Fi nal Result * (ABNORMAL) HEMOGLOBIN AND HEMATOCRIT (01/24/2008 3:06 PM RESIDENTIAL INTERIOR DESIGNER) HEMOGLOBIN 9.9(L) 14.0 - 18.0 g/dL [facility] HEMATOCRIT 29.2(L) 41.0 - 53.0 % [facility] Blood specimen (specimen) 01/24/2008 3:06 PM RESIDENTIAL INTERIOR DESIGNER 01/24/2008 3:06 PM RESIDENTIAL INTERIOR DESIGNER Result [facility] us Dee Casillas MD HEMATOLOGY ORDERABLES Final Resu lt Performing Organization Address [facility] de Phone Number INTERFACE SYSTEM Refer to clinic/hospital department [facility] CLIA# [id number] [address] [place] [address] * TYPE AND CROSSMATCH (01/24/2008 9:50 AM RESIDENTIAL INTERIOR DESIGNER) BLOOD BANK PRODUCT INTERFACE SYSTEM Blood specimen (specimen) 01/24/2008 9:50 AM RESIDENTIAL INTERIOR DESIGNER 01/24/2008 9:53 AM RESIDENTIAL INTERIOR DESIGNER Result [facility] Dee Casillas MD BLOOD BANK ORDERABLES Final Resu lt Performing Organization Address City/[facility] Co de Phone Number INTERFACE SYSTEM Refer to clinic/hospital department * ANTIBODY SCREEN (01/24/2008 9:50 AM RESIDENTIAL INTERIOR DESIGNER) ANTIBODY SCREEN Negative [facility] Blood specimen (specimen) 01/24/2008 9:50 AM RESIDENTIAL INTERIOR DESIGNER 01/24/2008 9:53 AM RESIDENTIAL INTERIOR DESIGNER Dee Casillas MD BLOOD BANK ORDERABLES Final Resu lt Performing Organization Address [facility] de Phone Number INTERFACE SYSTEM Refer to clinic/hospital department [facility] CLIA# [id number] [address] [place] [address] * ABORH TYPING (01/24/2008 9:50 AM RESIDENTIAL INTERIOR DESIGNER) ABO/RH TYPE A Positive [facility] Blood specimen (specimen) 01/24/2008 9:50 AM RESIDENTIAL INTERIOR DESIGNER 01/24/2008 9:53 AM RESIDENTIAL INTERIOR DESIGNER Dee Casillas MD BLOOD BANK ORDERABLES Final Resu lt Performing Organization Address [facility] de Phone Number INTERFACE SYSTEM Refer to clinic/hospital department [facility] CLIA# [id number] [address] [place] [address] documented in this encounter Visit Diagnoses Not on filedocumented in this encounter Care Teams Concession Manager Relationship Specialty Start Date End Date Marsha Turner MD [address] [place] [address] PCP - General Internal Medicine 05/31/12 documented as of this encounter
--- OUTSIDE RECORDS SUMMARY | 2025-01-03 18:13 | XMS_ITS | Encounter Summary ---
Author Organization [facility] Address [address] [place] [address] Care Team Providers Care Fly Fishing Guide Name Role Phone Marsha Turner MD Primary Care Provider +1- [phone] Encounter Details Date Type Department Care Team (Latest Contact Info) Description 12/21/2007 Outpatient [facility] [address] [facility] [address] [place] [address] Dee Casillas MD [address] [address] Unspecified Backache; Arthrodesis Status; Old Myocardial Infarction; Diaphragmatic Hernia without Mention of Obstruction or Gangrene; Unspecified Asthma; Headache; Unspecified Heart Failure (CMS/HCC) Social History Tobacco Use Types Packs/Day Years Used Date Smoking Tobacco: Never Assessed Sex and Gender Information Value Date Recorded Sex Assigned at Not on file Legal Sex Male 6:16 AM CENTRAL OFFICE INSPECTOR Gender Identity Not on file Sexual [...] unspecified documented in this encounter Care Teams Fly Fishing Guide Relationship Specialty Start Date End Date Marsha Turner MD [address] [place] [id number] PCP - General Internal Medicine 05/31/12 documented as of this encounter
--- OUTSIDE RECORDS SUMMARY | 2025-01-03 18:13 | XMS_ITS | Encounter Summary ---
Author Organization [facility] Address [address] [place] [address] Care Team Providers Care Fax Machine Operator Name Role Phone Marsha Turner MD Primary Care Provider +1- [phone] Reason for Referral * Outpatient Services (Routine) - Closed Specialty Diagnoses / Procedures Referred By Te caceres Referred To Contact Diagnoses Disorders of sacrum Procedures XR FLUORO NEEDLE GUIDANCE Kamar Leach MD Referral ID Status Reason Start Date Expiration Date Visits Re quested Visits Authorized [id number] Closed 06/11/2014 07/12/2015 1 1 Encounter Details Date Type Department Care Team (Late st Contact Info) Description 06/11/2014 Ancillary Orders [facility] Pain Management Procedures [place] [address] [place] [address] Kamar Leach MD NO ADDRESS ON FILE Disorders of sacrum (Primary Dx) Social History Tobacco Use Types Packs/Day Years Used Date Smoking Tobacco: Never Smokeless Tobacco: Never Alcohol Use Standard Drinks/Week Comments No 0 (1 standard drink = 0.6 oz pur e alcohol) Sex and Gender Information Value Date Recorded Sex Assigned at Not on file Legal Sex Male 6:16 AM PROFESSIONAL ENGINEER Gender Identity Not on file Sexual [...] sacrum documented in this encounter Care Teams Fax Machine Operator Relationship Specialty Start Date End Date Marsha Turner MD [address] [place] [id number] PCP - General Internal Medicine 05/31/12 documented as of this encounter
--- OUTSIDE RECORDS SUMMARY | 2025-01-03 18:13 | XMS_ITS | Encounter Summary ---
Author Organization [facility] Address [address] [place] [address] Care Team Providers Care Fish Worm Grower Name Role Phone Marsha Turner MD Primary Care Provider +1- [phone] Encounter Details Date Type Department Care Team (Latest Contact Info) Description 08/26/2018 Ancillary Orders [facility] Spine Neurosurgery [address] [place] [address] Aliyah Lange, PA [address] [place] [address] Status post lumbar spinal fusion Social History Tobacco Use Types Packs/Day Years Used Date Smoking Tobacco: Never Smokeless Tobacco: Never Alcohol Use Standard Drinks/Week Comments No 0 (1 standard drink = 0.6 oz pur e alcohol) Sex and Gender Information Value Date Recorded Sex Assigned at Not on file 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 IMPRESSION: 1. Interval posterior fusion. [id number] Narrative Procedure Note Chang Rai MD - [...] skin sean. IMPRESSION: 1. Interval posterior fusion. [id number] Aliyah MONTALVO DIAGNOSTIC IMAGING ORDERABLES Final Result documented in this encounter Visit Diagnoses Diagnosis Status post lumbar spinal fusion Arthrodesis status Status post lumbar spinal fusion Arthrodesis status documented in this encounter Care Teams Fish Worm Grower Relationship Specialty Start Date End Date Marsha Turner MD [address] [place] [address] PCP - General Internal Medicine 05/31/12 documented as of this encounter
--- OUTSIDE RECORDS SUMMARY | 2025-01-03 18:13 | XMS_ITS | Encounter Summary ---
Author Organization [facility] Address [address] [place] [address] Care Team Providers Care Tank Wagon Driver Name Role Phone Marsha Turner MD Primary Care Provider +1- [phone] Encounter Details Date Type Department Care Team (Late st Contact Info) Description 12/22/2007 Outpatient Historical [facility] Pain [facility] [address] [place] [address] Kamar Leach MD NO ADDRESS ON FILE Social History Tobacco Use Types Packs/Day Years Used Date Smoking Tobacco: Never Assessed Sex and Gender Information Value Date Recorded Sex Assigned at Not on file 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
--- OUTSIDE RECORDS SUMMARY | 2025-01-03 18:13 | XMS_ITS | Encounter Summary ---
Author Organization [facility] Address [address] [place] [address] Care Team Providers Care Senior Research Scientist Name Role Phone Marsha Turner MD Primary Care Provider +1- [phone] Encounter Details Date Type Department Care Team (Late st Contact Info) Description 01/02/2008 Outpatient Historical [facility] DEFAULT DEPARTMENT Dee Casillas MD [address] [id number] Social History Tobacco Use Types Packs/Day Years Used Date Smoking Tobacco: Never Assessed Sex and Gender Information Value Date Recorded Sex Assigned at Not on file 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
--- OUTSIDE RECORDS SUMMARY | 2025-01-03 18:13 | XMS_ITS | Encounter Summary ---
Author Organization [facility] Address [address] [place] [address] Care Team Providers Care Telehealth Case Manager Name Role Phone Marsha Turner MD Primary Care Provider +1- [phone] Encounter Details Date Type Department Care Team (Late st Contact Info) Description 02/06/2008 Outpatient Historical [facility] DEFAULT DEPARTMENT Dee Casilals MD [address] [phone] Social History Tobacco Use Types Packs/Day Years Used Date Smoking Tobacco: Never Assessed Sex and Gender Information Value Date Recorded Sex Assigned at Not on file 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
--- OUTSIDE RECORDS SUMMARY | 2025-01-03 18:13 | XMS_ITS | Data Portability ---
Author Organization [facility] Kinza, Marc, [facility] Address [address] [place] [address] Assessment No assessment recorded. Plan of Treatment Reminders Order Date Submit Date Provider Last Modified By Organization Details Last Modified Time Details Appointments None record ed. Lab None record ed. Referral None record ed. Procedures None record ed. Surgeries None record ed. Imaging None record ed. Medication Orders None record ed. Patient TargetsNo targets recorded. Patient Instructions Encounter Date Encounter Id Patient Instructions Last Modified By Organization Details Last Modified Time 04/08/2023 [id number] Records reviewed . Admitted with CHF exacerbation, tx with lasix drip. Cr 1.3 upon d/c. On bumex and metolazone previously, now just on bumex. Labs weekly x 4 weeks. Discussed importance of restricting fluids. f/u 1 week. [id number] Not available 04/08/2023 16:01:24 Reason for Referral None Reported. Problems Name Problem SNOMED Code Status Onset Date Resolution Date Notes Provider Name and Address Organization Details Recorded Time Hospital inpatient stay within past 30 days 7170882081773 Active 2023 [facility] 15:59:20 Acute on chronic diastolic heart failure 317594732 Active 2023 [facility] 15:59:38 Atrial fibrillati on 10268324 Active 2023 [facility] 15:59:48 Chronic anemia 161630269 Active 2023 [facility] 4 16:00:01 Obstructiv e sleep apnea syndrome 82337730 [facility] 4 16:00:10 Hypokalemi a 06510920 Active 20[facility] 4 16:00:20 Problem Notes None recorded. Medical Equipment None Reported. Medications Name Sig Start Date Stop Date Status Note LastModified by Organization Details LastModified Time amoxicillin 500 mg capsule TAKE 1 CAPSULE BY MOUTH THREE TIMES DAILY FOR 7 DAYS active Not Available Not Available No t Available metolazone 2.5 mg tablet active Not Available Not Availabl e Not Available atorvastatin 40 mg tablet TAKE 1 TABLET BY MOUTH AT BEDTIME active Not Available Not Available No t Available carvedilol 25 mg tablet active Not Available Not Available No t Available prednisone 10 mg tablet active Not Available Not Available No t Available carvedilol 12.5 mg tablet active Not Available Not Available Not Available bumetanide 2 mg tablet active Not Available Not Available No t Available clindamycin HCl 300 mg capsule active Not Available Not Available Not Available albuterol sulfate 2.5 mg/3 mL (0.083 %) solution for nebulization USE 1 VIAL IN NEBULIZER EVERY 6 HOURS NEEDED FOR WHEEZING AND FOR COUGH (DX R05.02) active Not Available Not Available No t Available trazodone 50 mg tablet active Not Available Not Available No t Available azithromycin 250 mg tablet active Not Available Not Availabl e Not Available amiodarone 200 mg tablet active Not Available Not Availabl e Not Available valacyclovir 1 gram tablet TAKE 1 TABLET BY MOUTH THREE TIMES DAILY FOR 7 DAYS active Not Available Not Available No t Available senna 8.6 mg tablet active Not Available Not Available Not Available Synthroid 125 mcg tablet TAKE 1 TABLET BY MOUTH ONCE DAILY active Not Available Not Available No t Available prednisone 20 mg tablet TAKE 1 TABLET BY MOUTH THREE TIMES DAILY FOR 3 DAYS THEN 1 TWICE DAILY FOR 2 DAYS THEN 1 ONCE DAILY FOR 2 DAYS active Not Available Not Available N ot Available isosorbide mononitrate ER 30 mg tablet,extend ed release 24 hr TAKE 1 TABLET BY MOUTH ONCE DAILY active Not Available Not Available No t Available prednisone 5 mg tablet TAKE 1 TABLET BY MOUTH ONCE DAILY active Not Available Not Available No t Available hydralazine 25 mg tablet active Not Available Not Available Not Available potassium chloride ER 10 mEq tablet,extend ed release active Not Available Not Available N ot Available omeprazole 40 mg capsule,delay ed release active Not Available Not Available N ot Available liothyronine 5 mcg tablet TAKE 2 TABLETS BY MOUTH ONCE DAILY active Not Available Not Available No t Available leflunomide 20 mg tablet active Not Available Not Available Not Available isosorbide mononitrate ER 60 mg tablet,extend ed release 24 hr active Not Available Not Available Not Available hydromorphone 2 mg tablet active Not Available Not Available Not Available furosemide 80 mg tablet active Not Available Not Available No t Available baclofen 10 mg tablet active Not Available Not Available No t Available cephalexin 500 mg capsule active Not Available Not Available Not Available lisinopril 10 mg tablet active Not Available Not Available No t Available calcium 200 mg (as calcium carbonate 500 mg) chewable tablet active Not Available Not Available Not Available nitroglycerin 0.4 mg sublingual tablet active Not Available Not Available Not Available oxybutynin chloride ER 5 mg tablet,extend ed release 24 hr active Not Available Not Available Not Available bumetanide 1 mg tablet active Not Available Not Available No t Available hydralazine 50 mg tablet active Not Available Not Available Not Available mupirocin 2 % topical ointment active Not Available Not Available Not Available clobetasol 0.05 % topical ointment active Not Available Not Available Not Available albuterol sulfate HFA 90 mcg/actuation aerosol inhaler active Not Available Not Available Not Available hydromorphone 4 mg tablet TAKE ONE-HALF TABLET BY MOUTH EVERY THREE HOURS NEEDED FOR PAIN FOR FIVE DAYS active Not Available Not Available No t Available oxybutynin chloride 5 mg tablet active Not Available Not Available Not Available Synthroid 137 mcg tablet TAKE 1 TABLET BY MOUTH ONCE DAILY active Not Available Not Available No t Available Klor-Con M20 mEq tablet,extend ed release active Not Available Not Available N ot Available magnesium L-lactate ER 84 mg tablet,extend ed release active Not Available Not Available N ot Available pregabalin 50 mg capsule active Not Available Not Available N ot Available pregabalin 100 mg capsule TAKE 1 CAPSULE BY MOUTH TWICE DAILY active Not Available Not Available No t Available diclofenac 1 % topical gel TAKE 4 GRAMS TOPICALLY FOUR TIMES A DAY NEEDED FOR PAIN active Not Available Not Available No t Available Eliquis 5 mg tablet TAKE ONE TABLET BY MOUTH TWICE DAILY AT 9am AND 9pm active Not Available Not Available No t Available Eliquis 2.5 mg tablet active Not Available Not Available No t Available Vitals Date Recorded Heart rate Respiratory rate Body temperature Oxygen saturation Oxygen saturation in Arterial blood by Pulse oximetry Systolic And Diastolic Provider Name and Address Organization Details Last Updated DateTime 4 80 /min 20 /min 97.3 [degF] 94 % 94 % 146/80 mm[Hg] DIOR TOMAS [facility] L[facility]LSandraCSandra 4 15:58:05 Social History None recorded. Functional Status None recorded. Mental Status None recorded. Family History Nothing Reported. Medical History No medical history recorded. Past Encounters Encounter ID Performer Location Encounter Start Date Encounter Closed Date Diagnosis/Indication Diagnosis SNOMED-CT Code Diagnosis ICD10 Code Diagnosis IMO Codes Diagnosis Note [id number] Kashif Pope DO [facility] [address] [place] [address] 04/08/2023 08:26:43 04/12/2023 22:05:22 Hospital inpatient stay within past 30 days 4694328586 106 Z76.89 Acute on c hronic diastolic heart failure 154289489 I50.33 Atrial fibrillation 4943 6004 I48.91 Chronic anemia 648832411 D64.9 Obstructiv e sleep apnea syndrome 21492383 G47.33 Hypokalemia 42464459 E87 .6 Health Concerns Section Related Observation LastModified by Organization Detai ls LastModified Time None Recorded Concern Status LastModified by Organization Details LastModified Time None Recorded Advance Directives Directive None Recorded Payers Insurance Date Sequence Insurance Name Policy Number Policy Bundy Covered Member ID Bundy Member ID Guarantor Name 04/08/2023 1 [place] Kojo Marinelli [id number] 3 Kojo Stephanie Marinelli 04/12/2023 [place] - [facility] (MEDICARE) Kojo Marinelli [id number] 3 Kojo Brown Yves 04/28/2023 2 UNSPECIFIED REMIT PAYOR Kojo Marinelli Notes Date Note Type Note Provider Name and Address Organization Details Recorded Time 04/08/2023 text/html Care Management - GeneralReported by PatientHPIFor nutrition/dietary compliance, patient reportsdoesn't follow any kind of diet planandnot limiting salt intake. For prognosis, patient reportsexpected outcome: stabilize. For context, patient reportsnot current smoker. For lifestyle changes, patient reportsmotivated to continue lifestyle changes.ROS as noted in the HPI Kashif Pope, DO [address] [place] [address], [id number], [facility] 04/12/2023 13:07:57
--- OUTSIDE RECORDS SUMMARY | 2025-01-03 18:13 | XMS_ITS | Encounter Summary ---
Author Organization [facility] Address [address] [place] [address] Care Team Providers Care Trimming Operator Name Role Phone Marsha Turner MD Primary Care Provider +1- [phone] Encounter Details Date Type Department Care Team (Late st Contact Info) Description 12/12/2007 Outpatient Historical [facility] Pain Management Procedures [address] 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 No report expected. Procedure Note 03/25/2008 Finalized by interface [facility] utility. No report expected. us Kamar Leach MD DIAGNOSTIC IMAGING ORDERAB LES Final Result documented in this encounter Visit Diagnoses Diagnosis Unspecified asthma(493.90) Unspecified asthma Arthropathy, unspecified, site unspecified Diaphragmatic hernia without mention of obstruction or gangrene Personal history of unspecified circulatory disease Unspecified joint replacement by other means Personal history of allergy to analgesic agent documented in this encounter Care Teams Trimming Operator Relationship Specialty Start Date End Date Marsha Turner MD [address] [place] [address] PCP - General Internal Medicine 05/31/12 documented as of this encounter
--- OUTSIDE RECORDS SUMMARY | 2025-01-03 18:13 | XMS_ITS | Encounter Summary ---
Author Organization [facility] Address [address] [place] [address] Care Team Providers Care Gas Plant Technician Name Role Phone Marsha Turner MD Primary Care Provider +1- [phone] Encounter Details Date Type Department Care Team (Latest Contact Info) Description 12/16/2007 Outpatient Historical [facility] Dee Casillas MD [address] [address] Brachial Neuritis or Radiculitis NOS Social History Tobacco Use Types Packs/Day Years Used Date Smoking Tobacco: Never Assessed Sex and Gender Information Value Date Recorded Sex Assigned at Not on file 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 Electronically Signed By: Aurn Rai M.D. Date Signed: 12/30/07 Dee Casillas MD MR ORDERABLES Final Result documented in this encounter Visit Diagnoses Diagnosis Brachial neuritis or radiculitis NOS Brachial neuritis or radiculitis nos documented in this encounter Care Teams Gas Plant Technician Relationship Specialty Start Date End Date Marsha Turner MD [address] [place] [address] PCP - General Internal Medicine 05/31/12 documented as of this encounter
--- OUTSIDE RECORDS SUMMARY | 2025-01-03 18:13 | XMS_ITS | Encounter Summary ---
Author Organization [facility] Address [address] [place] [address] Care Team Providers Care Sheet Finisher Name Role Phone Marsha Turner MD Primary Care Provider +1- [phone] Encounter Details Date Type Department Care Team (Latest Contact Info) Description 02/03/2008 Outpatient Historical [facility] [address] [facility] [address] [place] [address] Aliyah Lange, PA [address] [place] [address] Arthrodesis Status; Lumbago; Pain in [...] on file Legal 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 Male 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 Gender Identity Not on file Sexual Orientation Not on file documented as of this encounter Plan of Treatment Not on file documented as of this encounter Procedures Procedure Name Priority Date/Time Associated Diagnosis Comments XR LUMBAR SPINE 2 OR 3 VW Routine 02/06/2008 10:19 AM DINKEY ENGINE FIRER/FIREMAN documented in this encounter Results * XR LUMBAR SPINE 2 OR 3 VW (02/06/2008 10:19 AM DINKEY ENGINE FIRER/FIREMAN) Anatomical Region Laterality Modality Spine Other 02/06/2008 10:1 9 AM DINKEY ENGINE FIRER/FIREMAN Narrative 02/06/2008 1:09 PM DINKEY ENGINE FIRER/FIREMAN Exam: Spine - Lumbar Date/Time of Exam: [...] site documented in this encounter Care Teams Sheet Finisher Relationship Specialty Start Date End Date Marsha Turner MD [address] [place] [address] PCP - General Internal Medicine 05/31/12 documented as of this encounter
--- OUTSIDE RECORDS SUMMARY | 2025-01-03 18:14 | XMS_ITS | Encounter Summary ---
Author Organization [facility] Address [address] [place] [address] Care Team Providers Care Bilingual Student Tutor Name Role Phone Marsha Turner MD Primary Care Provider +1- [phone] Encounter Details Date Type Department Care Team (Latest Contact Info) Description 05/14/2005 Outpatient Historical [facility] Services[facility] [place] [address] [place] [address] Abilio Bagley MD [address] [place] [address] ESOPHAGEAL REFLUX (Primary Dx) Social History Tobacco Use Types Packs/Day Years Used Date Smoking Tobacco: Never Assessed Sex and Gender Information Value Date Recorded Sex Assigned at Not on file Legal Sex Male 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
--- OUTSIDE RECORDS SUMMARY | 2025-01-03 18:14 | XMS_ITS | Encounter Summary ---
Author Organization [facility] Address [address] [place] [address] Care Team Providers Care Cement Mason Name Role Phone Marsha Turner MD Primary Care Provider +1- [phone] Encounter Details Date Type Department Care Team (Latest Contact Info) Description 05/06/[address] 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
--- OUTSIDE RECORDS SUMMARY | 2025-01-03 18:14 | XMS_ITS | Encounter Summary ---
Author Organization [facility] Address [address] [place] [address] Care Team Providers Care Meat Specialist Name Role Phone Marsha Turner MD Primary Care Provider +1- [phone] Encounter Details Date Type Department Care Team (Late st Contact Info) Description 05/27/[address] [facility] [address] 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
--- OUTSIDE RECORDS SUMMARY | 2025-01-03 18:14 | XMS_ITS | Encounter Summary ---
Author Organization [facility] Address [address] [place] [address] Care Team Providers Care Events Administrative Assistant Name Role Phone Marsha Turner MD Primary Care Provider +1- [phone] Encounter Details Date Type Department Care Team (Latest Contact Info) Description 06/23/2005 Outpatient Historical [facility] [address] [place] [address] Jalen Rutledge MD NO ADDRESS ON FILE Chronic Rhinitis (Primary Dx); Other Dyspnea and Respiratory Abnormality Social History Tobacco Use Types Packs/Day Years Used Date Smoking Tobacco: Never Assessed Sex and Gender Information Value Date Recorded Sex Assigned at Not on file Legal Sex Male 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
--- OUTSIDE RECORDS SUMMARY | 2025-01-03 18:14 | XMS_ITS | Encounter Summary ---
Author Organization [facility] Address [address] [place] [address] Care Team Providers Care Voice Studies Director Name Role Phone Marsha Turner MD Primary Care Provider +1- [phone] Encounter Details Date Type Department Care Team (Latest Contact Info) Description 07/12/2006 Outpatient [facility] Gastroenterology[address] [place] [address] Abilio Bagley MD [address] [place] [address] Spasm Sphincter of Oddi (Primary Dx) Social History Tobacco Use Types Packs/Day Years Used Date Smoking Tobacco: Never Assessed Sex and Gender Information Value Date Recorded Sex Assigned at Not on file Legal 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
--- OUTSIDE RECORDS SUMMARY | 2025-01-03 18:14 | XMS_ITS | Encounter Summary ---
Author Organization [facility] Address [address] [place] [address] Care Team Providers Care Bit Welder Name Role Phone Marsha Turner MD Primary Care Provider +1- [phone] Encounter Details Date Type Department Care Team (Late st Contact Info) Description 08/27/2005 Outpatient Historical [facility] [address] 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
--- OUTSIDE RECORDS SUMMARY | 2025-01-03 18:14 | XMS_ITS | Clinical Summary ---
Author Organization [facility] Address [address] [place] [address] Care Team Providers Care Outreach Analyst Name Role Phone Marsha Turner MD Primary Care Provider +1- [phone] Allergies Active Allergy Reactions Criticality Noted Date [...] SYNTHROID 137 mcg tablet 137 mcg daily chart writer. 9 Active liothyronine (CYTOMEL) 5 mcg Tablet 2 Tablets daily chart writer. 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 Gender Identity Not on file Sexual [...] Discontinued Medical Devices Implanted Type Area Design Printer Balloon Device Identifier Shelf Expiration Date Model / Serial / Lot Vitoss Foam Ba 1.2ml Implanted:Qty: 1 on 04/18/2013 at [facility] Biological N/A: Spine Cervical Anterior LISA- SPINE 10/13/2014 / NA / [id number] Pall Mall C Stand Alone Cage [id number] Implanted:Qty: 1 on 04/18/2013 by John Castillo MD at [facility] Cage N/A: Spine Cervical Anterior LISA- SPINE [id number] / LD [id number] / NA Cement Palacos R+G 01-1304-757-01 - Sna Implanted:Qty: 2 on 09/29/2012 at [facility] Cement Left: Knee SHIRA US INC 01/13/201671-2691-025-01 / NA / NA Hemostatic Gelfoam Powder 1gm [id number] - [id number] Implanted:Qty: 1 on 05/20/2015 by Dee Casillas MD at [facility] Hemostatic N/A: Spine Thoracic PFIZER- PHARM 10/12/2017 [id number] / / [id number] Hemostatic Gelfoam Powder 1gm [id number] - [id number] Implanted:Qty: 1 on 09/14/2017 by Dee Casillas MD at [facility] Hemostatic N/A: Back PFIZER- PHARM 11/13/2019 [id number] / / [id number] Gel-Flow Nt Implanted:Qty: 1 on 08/12/2018 by Dee Casillas MD at [facility] Hemostatic N/A: Spine Cervical Anterior PFIZER- PHARMACIA AND UPJOHN I 08/04/2019 / / [id number] Bearing Tib Vng 10mm 79/83mm 344955 - [id number] Implanted:Qty: 1 on 09/29/2012 at [facility] Knee Left: Knee BIOMET INC 05/12/2017 494376 / / [id number] Comp Fem Vng Ps Sz72.5 Lt 507920 - [id number] Implanted:Qty: 1 on 09/29/2012 at [facility] Knee Left: Knee BIOMET INC 06/12/2022 273129 / / [id number] Comp Tib Cocr Finned 83mm 071722 - [id number] Implanted:Qty: 1 on 09/29/2012 at [facility] Knee Left: Knee BIOMET INC 03/14/2022 [id number] / / [id number] Standard Patella Implanted:Qty: 1 on 09/29/2012 by Dylon Abreu MD at [facility] Knee Left: Knee BIOMET- ORTHOPEDICS, INC 07/12/2017 694344 / / [id number] Plate Hybrid Cerv 12mm [id number] - Sld [id number] Implanted:Qty: 1 on 04/18/2013 at [facility] Plate N/A: Spine Cervical Anterior LISA- SPINE [id number] / LD [id number] / NA Issac Lgcy Crv Ti 5.7o519uh 9797988 - [id number] Implanted:Qty: 1 on 09/14/2017 by Dee Casillas MD at [facility] Issac N/A: Back MEDTRONIC- SOFAMOR DANEK 09/15/2019 7578823 / / [id number] Issac Lgcy Crv Ti 5.9j081wg 9289318 - [id number] Implanted:Qty: 1 on 09/14/2017 by Dee Casillas MD at [facility] Issac N/A: Back MEDTRONIC- SOFAMOR DANEK 09/15/2019 6945674 / / [id number] Issac Std 3.2l739ub 1453713 - [id number] Implanted:Qty: 2 on 08/12/2018 by Dee Casillas MD at [facility] Issac N/A: Spine Cervical Anterior MEDTRONIC- SOFAMOR DANEK 8091675 / [id number] / Screw Rh Sd Fa 4.0x14mm 50642150 - Sld [id number] Implanted:Qty: 1 on 04/18/2013 at [facility] Screw N/A: Spine Cervical Anterior LISA- SPINE 08111563 / LD [id number] / NA Screw Sd 3.5x10mm 02552939 - Sld [id number] Implanted:Qty: 2 on 04/18/2013 at [facility] Screw N/A: Spine Cervical Anterior LISA- SPINE 55047091 / LD [id number] / NA Screw Rh St Va 4.0x14mm 66817950 - Sld [id number] Implanted:Qty: 2 on 04/18/2013 at [facility] Screw N/A: Spine Cervical Anterior LISA- SPINE 52972309 / LD [id number] / NA Screw Rh St Fa 4.0x14mm 69514011 - Sld [id number] Implanted:Qty: 1 on 04/18/2013 at [facility] Screw N/A: Spine Cervical Anterior LISA- SPINE 78703031 / LD [id number] / NA Screw Legacy Ma 6.5x50mm 36456666 - [id number] Implanted:Qty: 1 on 09/14/2017 by Dee Casillas MD at [facility] Screw N/A: Back MEDTRONIC- SOFAMOR DANEK 65702496 / / [id number] Screw Legacy Ma 6.5x50mm 78902633 - [id number] Implanted:Qty: 1 on 09/14/2017 by Dee Casillas MD at [facility] Screw N/A: Back MEDTRONIC- SOFAMOR DANEK 84243996 / / [id number] Set Screw Break Off Ti 4244998 - [id number] Implanted:Qty: 1 on 09/14/2017 by Dee Casillas MD at [facility] Screw N/A: Back MEDTRONIC- SOFAMOR DANEK 5038922 / / [id number] Set Screw Break Off Ti 7012297 - [id number] Implanted:Qty: 1 on 09/14/2017 by Dee Casillas MD at [facility] Screw N/A: Back MEDTRONIC- SOFAMOR DANEK 1379058 / / [id number] Set Screw Break Off Ti 2457531 - [id number] Implanted:Qty: 1 on 09/14/2017 by Dee Casillas MD at [facility] Screw N/A: Back MEDTRONIC- SOFAMOR DANEK 6221502 / / [id number] Set Screw Break Off Ti 4248012 - [id number] Implanted:Qty: 1 on 09/14/2017 by Dee Casillas MD at [facility] Screw N/A: Back MEDTRONIC- SOFAMOR DANEK 5115745 / / [id number] Set Screw Break Off Ti 1029244 - [id number] Implanted:Qty: 1 on 09/14/2017 by Dee Casillas MD at [facility] Screw N/A: Back MEDTRONIC- SOFAMOR DANEK 9547742 / / [id number] Screw Legacy Ma 7.5x50mm 95675527 - [id number] Implanted:Qty: 1 on 09/14/2017 by Dee Casillas MD at [facility] Screw N/A: Back MEDTRONIC- SOFAMOR DANEK 69284023 / / [id number] Screw Legacy Ma 7.5x50mm 07034053 - [id number] Implanted:Qty: 1 on 09/14/2017 by Dee Casillas MD at [facility] Screw N/A: Back MEDTRONIC- SOFAMOR DANEK 49209784 / / [id number] Set Screw Break Off Ti 9809847 - [id number] Implanted:Qty: 1 on 09/14/2017 by Dee Casillas MD at [facility] Screw N/A: Back MEDTRONIC- SOFAMOR DANEK 9761031 / / [id number] Set Screw Break Off Ti 5672087 - [id number] Implanted:Qty: 1 on 09/14/2017 by Dee Casillas MD at [facility] Screw N/A: Back MEDTRONIC- SOFAMOR DANEK 0150649 / / [id number] Set Screw Break Off Ti 2716215 - [id number] Implanted:Qty: 1 on 09/14/2017 by Dee Casillas MD at [facility] Screw N/A: Back MEDTRONIC- SOFAMOR DANEK 4478000 / / [id number] Infinity Screw Implanted:Qty: 7 on 08/12/2018 by Dee Casillas MD at [facility] Screw N/A: Spine Cervical Anterior MEDTRONIC- NEUROSURGERY 4094248 / [id number] / Description:PER INVOICE Infinity Screw Implanted:Qty: 2 on 08/12/2018 by Dee Casillas MD at [facility] Screw N/A: Spine Cervical Anterior MEDTRONIC- NEUROSURGERY 8175479 / [id number] / Description:PER INVOICE Infinity Screw Implanted:Qty: 2 on 08/12/2018 by Dee Casillas MD at [facility] Screw N/A: Spine Cervical Anterior MEDTRONIC- NEUROSURGERY 2906530 / [id number] / Description:PER INVOICE Infinity Set Screws Implanted:Qty: 11 on 08/12/2018 by Dee Casillas MD at [facility] Screw N/A: Spine Cervical Anterior 7963690 / [id number] / Description:PER INVOICE Spacer As [id number] 27868981 - Sld [id number] Implanted:Qty: 1 on 04/18/2013 at [facility] Spacer N/A: Spine Cervical Anterior LISA- SPINE 77873288 / LD [id number] / NA Crosslink Lp Mltspn L=1.75-2.15 811-322 - [id number] Implanted:Qty: 1 on 09/14/2017 by Dee Casillas MD at [facility] Spine N/A: Back MEDTRONIC- SOFAMOR DANEK 09/15/2019 811-322 / / [id number] Description:09/17 inv pricing Readigraft Canc Chips 30ml Can30 14bp - [id number] Implanted:Qty: 1 on 09/14/2017 by Dee Casillas MD at [facility] Tissue N/A: Back LIFENET 08/20/2019 CAN30 14BP / / [id number] Putty Bio Dbm 10ml 3794461 - [id number] Implanted:Qty: 1 on 09/14/2017 by Dee Casillas MD at [facility] Tissue N/A: Back LISA- HOWMEDICA INT INC 05/27/2019 4388915 / / [id number] Putty Bio Dbm 10ml 6820490 - [id number] Implanted:Qty: 1 on 09/14/2017 by Dee Casillas MD at [facility] Tissue N/A: Back LISA- HOWMEDICA INT INC 05/16/2019 7098138 / / [id number] Putty Bio Dbm 10ml 4170891 - [id number] Implanted:Qty: 1 on 08/12/2018 by Dee Casillas MD at [facility] Tissue N/A: Spine Cervical Anterior LISA- HOWMEDICA INT INC 04/13/2020 5194409 / / [id number] Putty Bio Dbm 10ml 2196360 - [id number] Implanted:Qty: 1 on 08/12/2018 by Dee Casillas MD at [facility] Tissue N/A: Spine Cervical Anterior LISA- HOWMEDICA INT INC 04/13/2020 9714203 / / [id number] Explanted Type Area Design Printer Balloon Device Identifier Shelf Expiration Date Model / Serial / Lot Stim Spnl Cord Precision Spectra [id number] - [id number] Implanted:Qty: 1 on 05/20/2015 by Dee Casillas MD at [facility] Explanted:Qty: 1 on 06/15/2016 by Dee Casillas MD at [facility] Neuro Right: Spine Thoracic [employer]- NEURO MODULATION 05/02/2017 MS-1132 / / [id number] Infinity Set Screws Explanted:Qty: 2 on 08/12/2018 at [facility] Screw N/A: Spine Cervical Anterior MEDTRONIC- NEUROSURGERY 0810274 / [id number] / Description:PER INVOICE Cover Edge 32 70cm 4x8 Network Coordinator Kit [id number] Implanted:Qty: 1 on 05/20/2015 by Dee Casillas MD at [facility] Explanted:Qty: 1 on 06/15/2016 by Dee Casillas MD at [facility] N/A: Spine Thoracic [employer] INC 02/11/2017 / [id number] / [id number] Set Screws X4, Blockers X4, And 2 Rods Explanted:Qty: 1 on 09/14/2017 by Dee Casillas MD at [facility] N/A: Spine Cervical Anterior Insurance MEDICARE PART A AND B GENERIC PAYOR RX [facility] Medicare Part D [facility] MEDICARE PART A AND B Advance Directives For more information, please contact: [phone] * Full Code (Latest Code Status on [...] 9:28 AM 06/15/2016 5:17 PM Care Teams Outreach Analyst Relationship Specialty Start Date End Date Marsha Turner MD [address] [place] [address] PCP - General Internal Medicine 05/31/12
--- OUTSIDE RECORDS SUMMARY | 2025-01-03 18:14 | XMS_ITS | Encounter Summary ---
Author Organization [facility] Address [address] [place] [address] Care Team Providers Care Chicken And Fish Butcher Name Role Phone Marsha Turner MD Primary Care Provider +1- [phone] Reason for Referral * Outpatient Services (Routine) - Closed Specialty Diagnoses / Procedures Referred By Contac t Referred To Contact Radiology Diagnoses H/O: stroke Dizziness History of atrial fibrillation Procedures ECHOCARDIOGRAM W/ CONTRAST AGENT ECHO COMPLETE W BUBBLE STUDY Hayes Harris MD Phone: tel: fax: [facility] Echo [facility] [address] [place] [address] Phone: tel: fax: Referral ID Status Reason Start Date Expiration Date V isits Requested Visits Authorized [id number] Closed F MC TO SCHEDULE (SGF) 07/31/2016 08/31/2017 1 1 Encounter Details Date Type Department Care Team (Latest Contact Info) Description 08/20/2016 Ancillary Orders [facility] Neurology- [place] 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 Gender Identity Not on file Sexual [...] SYSTEM - 08/20/2016 10:06 AM CDT [facility] Echocardiography-[address] [place] [address] Transthoracic Echocardiography Patient: Yves Study ECHO Kojo Brown ID: COMPLETE W Gender: Stephanie : 1945 Age: 70 Room: Study 08/20/2016 Pt Outpatient Date: Status: Study 07:40 AM CSN #: [id number] Time: Ordering:Hayes Harris Interpreting:Giovanni Benitez MD Hand Frame Surgical Elastic Knitter: Gabby Simeon [facility] Indications and History: : H/O: stroke [...] septum: Agitated saline contrast study showed no sgkbw-xg-hnud shunt. - Aortic valve: Trileaflet; mildly thickened [...] Doppler. Agitated saline contrast study showed no qykgh-pl-cybt shunt. AORTIC VALVE: Trileaflet; mildly thickened leaflets. [...] eaton values outside specified normal range. [facility] are accredited with the Intersocietal Accreditation Commission - Echocardiography. Prepared and Electronically Authenticated Giovanni Benitez MD Confirmed 08/20/2016 10:06 Procedure Note Giovanni Benitez MD - 08/20/2016 [facility] Echocardiography-[facility] [address] [facility] [address] [place] [address] Transthoracic Echocardiography Patient: Yves Study ECHO Kojo Brown ID: COMPLETE W Gender: Stephanie : 1945 Age: 70 Room: Study 08/20/2016 Pt Outpatient Date: Status: Study 07:40 AM [facility] #: [id number] Time: Ordering:Hayes Harris Interpreting:Giovanni Benitez MD Hand Frame Surgical Elastic Knitter: Gabby Simeon [facility] Indications and History: : H/O: stroke [...] septum: Agitated saline contrast study showed no ainvf-dk-nnxw shunt. - Aortic valve: Trileaflet; mildly thickened [...] Doppler. Agitated saline contrast study showed no evjgc-lc-wwwk shunt. AORTIC VALVE: Trileaflet; mildly thickened leaflets. [...] eaton values outside specified normal range. [facility] are accredited with the Intersocietal [...] system documented in this encounter Care Teams Chicken And Fish Butcher Relationship Specialty Start Date End Date Marsha Turner MD [address] [place] [address] PCP - General Internal Medicine 05/31/12 documented as of this encounter
--- OUTSIDE RECORDS SUMMARY | 2025-01-03 18:14 | XMS_ITS | Encounter Summary ---
Author Organization [facility] Address [address] [place] [address] Care Team Providers Care Feed Grinder Name Role Phone Marsha Turner MD Primary Care Provider +1- [phone] Encounter Details Date Type Department Care Team (Late st Contact Info) Description 09/23/2005 Outpatient Historical [facility] Urology [facility] 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
--- OUTSIDE RECORDS SUMMARY | 2025-01-03 18:14 | XMS_ITS | Encounter Summary ---
Author Organization [facility] Address [address] [place] [address] Care Team Providers Care Vp Integration Name Role Phone Marsha Turner MD Primary Care Provider +1- [phone] Encounter Details Date Type Department Care Team (Late st Contact Info) Description 09/23/2005 Outpatient Historical [facility] Imaging Services-[place] [facility] Laura [address] [place] [address] Thomas Mack MD NO ADDRESS ON FILE Bilat Ing Hernia (Primary Dx) Social History Tobacco Use Types Packs/Day Years Used Date Smoking Tobacco: Never Assessed Sex and Gender Information Value Date Recorded Sex Assigned at Not on file 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
--- OUTSIDE RECORDS SUMMARY | 2025-01-03 18:14 | XMS_ITS | Encounter Summary ---
Author Organization [facility] Address [address] [place] [address] Care Team Providers Care Pharmacognosy Teacher Name Role Phone Marsha Turner MD Primary Care Provider +1- [phone] Encounter Details Date Type Department Care Team (Late st Contact Info) Description 11/05/2005 Outpatient Historical [facility] Urology [facility] [address] 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
--- OUTSIDE RECORDS SUMMARY | 2025-01-03 18:14 | XMS_ITS | Encounter Summary ---
Author Organization [facility] Address [address] [place] [address] Care Team Providers Care Filler Operator Name Role Phone Marsha Turner MD Primary Care Provider +1- [phone] Encounter Details Date Type Department Care Team (Late st Contact Info) Description 09/13/2006 Outpatient Historical [facility] Urology [facility] [address] 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
--- OUTSIDE RECORDS SUMMARY | 2025-01-03 18:14 | XMS_ITS | Encounter Summary ---
Author Organization [facility] Address [address] [place] [address] Care Team Providers Care Wire Products Inspector Name Role Phone Marsha Turner MD Primary Care Provider +1- [phone] Encounter Details Date Type Department Care Team (Latest Contact Info) Description 05/06/2005 Outpatient Historical [facility] Endoscopy [place] [address] [place] [address] [place] [address] Abilio Bagley MD [address] [place] [address] CHEST PAIN NOS (Primary Dx) Social History Tobacco Use Types Packs/Day Years Used Date Smoking Tobacco: Never Assessed Sex and Gender Information Value Date Recorded Sex Assigned at Not on file 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
--- OUTSIDE RECORDS SUMMARY | 2025-01-03 18:14 | XMS_ITS | Encounter Summary ---
Author Organization [facility] Address [address] [place] [address] Care Team Providers Care Art Tracer Name Role Phone Marsha Turner MD Primary Care Provider +1- [phone] Encounter Details Date Type Department Care Team (Latest Contact Info) Description 11/30/2005 Outpatient Historical [facility] Pulmonology-[facility] [address] [place] [address] David Teresa MD NO ADDRESS ON FILE Cough (Primary Dx); Other Dyspnea and Respiratory Abnormality Social History Tobacco Use Types Packs/Day Years Used Date Smoking Tobacco: Never Assessed Sex and Gender Information Value Date Recorded Sex Assigned at Not on file 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
--- OUTSIDE RECORDS SUMMARY | 2025-01-03 18:14 | XMS_ITS | Encounter Summary ---
Author Organization [facility] Address [address] [place] [address] Care Team Providers Care Newsperson Name Role Phone Marsha Turner MD Primary Care Provider +1- [phone] Encounter Details Date Type Department Care Team (Late st Contact Info) Description 09/23/2005 Outpatient Historical [facility] Imaging Services-[place] [facility] Laura [address] [place] [address] Thomas Mack MD NO ADDRESS ON FILE Renal Colic (Primary Dx) Social History Tobacco Use Types Packs/Day Years Used Date Smoking Tobacco: Never Assessed Sex and Gender Information Value Date Recorded Sex Assigned at Not on file 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
--- OUTSIDE RECORDS SUMMARY | 2025-01-03 18:15 | XMS_ITS | Encounter Summary ---
Author Organization [facility] Address [address] [place] [address] Care Team Providers Care Geophysical Laboratory Supervisor Name Role Phone Marsha Turner MD Primary Care Provider +1- [phone] Encounter Details Date Type Department Care Team (Latest Contact Info) Description 06/25/2006 Outpatient [facility] Gastroenterology[address] [place] [address] Abilio Bagley MD [address] [place] [address] Abdominal Pain, Right Upper Quadrant (Primary Dx); Chronic Pancreatitis (CMS/HCC); Nonspecific Abnormal Results of Liver Function Study Social History Tobacco Use Types Packs/Day Years Used Date Smoking Tobacco: Never Assessed Sex and Gender Information Value Date Recorded Sex Assigned at Not on file Legal Sex Male 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
--- OUTSIDE RECORDS SUMMARY | 2025-01-03 18:15 | XMS_ITS | Encounter Summary ---
Author Organization [facility] Address [address] [place] [address] Care Team Providers Care Hiv Prevention Specialist Name Role Phone Marsha Turner MD Primary Care Provider +1- [phone] Encounter Details Date Type Department Care Team (Latest Contact Info) Description 06/25/2006 Outpatient Historical [facility] [address] [place] [id number] Abilio Bagley MD [address] [place] [address] Abdominal Pain, Right Upper Quadrant (Primary Dx) Social History Tobacco Use Types Packs/Day Years Used Date Smoking Tobacco: Never Assessed Sex and Gender Information Value Date Recorded Sex Assigned at Not on file Legal 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
--- OUTSIDE RECORDS SUMMARY | 2025-01-03 18:15 | XMS_ITS | Encounter Summary ---
Author Organization [facility] Address [address] [place] [address] Care Team Providers Care Chief Financial Officer Name Role Phone Marsha Turner MD Primary Care Provider +1- [phone] Encounter Details Date Type Department Care Team (Latest Contact Info) Description 06/18/[address] [facility] Endoscopy [address] 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
--- OUTSIDE RECORDS SUMMARY | 2025-01-03 18:15 | XMS_ITS | Encounter Summary ---
Author Organization [facility] Address [address] [place] [address] Care Team Providers Care Drum Filler Name Role Phone Marsha Turner MD Primary Care Provider +1- [phone] Encounter Details Date Type Department Care Team (Late st Contact Info) Description 06/14/2006 Outpatient Historical [facility] Services-[facility] Abraham Laura [address] [place] [phone] Thomas Mack MD NO ADDRESS ON FILE Slow Urinary Stream (Primary Dx) Social History Tobacco Use Types Packs/Day Years Used Date Smoking Tobacco: Never Assessed Sex and Gender Information Value Date Recorded Sex Assigned at Not on file Legal Sex Male 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
--- OUTSIDE RECORDS SUMMARY | 2025-01-03 18:16 | XMS_ITS | Encounter Summary ---
Author Organization [facility] Address [address] [place] [address] Care Team Providers Care Scheduling Specialist Name Role Phone Marsha Turner MD Primary Care Provider +1- [phone] Encounter Details Date Type Department Care Team (Late st Contact Info) Description 03/05/2008 Outpatient Historical [facility] Dee Casillas MD [address] [address] Social History Tobacco Use Types Packs/Day Years Used Date Smoking Tobacco: Never Assessed Sex and Gender Information Value Date Recorded Sex Assigned at Not on file Legal Sex Male 6:16 AM HELP DESK CONSULTANT Gender Identity Not on file Sexual Orientation Not on file documented as of this encounter Plan of Treatment Not on file documented as of this encounter Procedures Procedure Name Priority Date/Time Associated Diagnosis Comments POC GLUCOSE Routine 03/16/2008 1:37 PM HELP DESK CONSULTANT POC GLUCOSE Routine 03/16/2008 9:28 AM HELP DESK CONSULTANT documented in this encounter Results * (ABNORMAL) POC GLUCOSE (03/16/2008 1:37 PM HELP DESK CONSULTANT) GLUCOSE POC 115(H) 60 - 100 mg/dL [facility] Comment:POC Glucose - waived testing: CLIA #[id number] Venous blood specimen (specimen) 03/16/2008 1:37 PM HELP DESK CONSULTANT 03/17/2008 2:21 AM HELP DESK CONSULTANT Dee Casillas MD POINT OF CARE TESTING Final Resu lt Performing Organization Address [facility] de Phone Number INTERFACE SYSTEM Refer to clinic/hospital department [facility] CLIA# [id number] [address] [place] [address] * (ABNORMAL) POC GLUCOSE (03/16/2008 9:28 AM HELP DESK CONSULTANT) GLUCOSE POC 132(H) 60 - 100 mg/dL [facility] Comment:POC Glucose - waived testing: CLIA #[id number] Venous blood specimen (specimen) 03/16/2008 9:28 AM HELP DESK CONSULTANT 03/17/2008 1:24 AM HELP DESK CONSULTANT Dee Casillas MD POINT OF CARE TESTING Final Resu lt Performing Organization Address [facility] de Phone Number INTERFACE SYSTEM Refer to clinic/hospital department [facility] CLIA# [id number] [address] [place] [address] documented in this encounter Visit Diagnoses Not on filedocumented in this encounter Care Teams Scheduling Specialist Relationship Specialty Start Date End Date Marsha Turner MD [address] [place] [id number] PCP - General Internal Medicine 05/31/12 documented as of this encounter
--- OUTSIDE RECORDS SUMMARY | 2025-01-03 18:16 | XMS_ITS | Encounter Summary ---
Author Organization [facility] Address [address] Pagan: [place] [address] Care Team Providers Care Systems Protection Technician Name Role Phone Marsha Turner MD Primary Care Provider +1- [phone] Encounter Details Date Type Department Care Team (Late st Contact Info) Description 09/29/1990 Inpatient Historical Edis Xiao MD [address] [place], [place] [id number] Social History Tobacco Use Types Packs/Day Years Used Date Smoking Tobacco: Never Assessed Sex and Gender Information Value Date Recorded Sex Assigned at Not on file Legal Sex Male 6:16 AM WAITER/WAITRESS TAKE OUT Gender Identity Not on file Sexual Orientation Not on file documented as of this encounter Plan of Treatment Not on file documented as of this encounter Visit Diagnoses Not on filedocumented in this encounter Care Teams Systems Protection Technician Relationship Specialty Start Date End Date Marsha Turner MD [address] [place] [id number] PCP - General Internal Medicine 05/31/12 documented as of this encounter
--- OUTSIDE RECORDS SUMMARY | 2025-01-03 18:16 | XMS_ITS | Encounter Summary ---
Author Organization [facility] Address [address] 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
--- OUTSIDE RECORDS SUMMARY | 2025-01-03 18:16 | XMS_ITS | Encounter Summary ---
Author Organization [facility] Address [address] [place] [address] Care Team Providers Care Oil Well Directional Surveyor Name Role Phone Marsha Turner MD Primary Care Provider +1- [phone] Encounter Details Date Type Department Care Team (Late st Contact Info) Description 02/26/2005 Outpatient Historical [facility] Urology- [address] Entrance B, 3rd [place] [address] Thomas Mack MD NO ADDRESS ON FILE Malig emmett prostate (Primary Dx) Social History Tobacco Use Types Packs/Day Years Used Date Smoking Tobacco: Never Assessed Sex and Gender Information Value Date Recorded Sex Assigned at Not on file Legal Sex Male 6:16 AM SIGN FABRICATOR Gender Identity Not on file Sexual Orientation Not on file documented as of this encounter Plan of Treatment Not on file documented as of this encounter Visit Diagnoses Diagnosis Malig emmett prostate- Primary Malignant neoplasm of prostate documented in this encounter Care Teams Oil Well Directional Surveyor Relationship Specialty Start Date End Date Marsha Turner MD [address] [place] [address] PCP - General Internal Medicine 05/31/12 documented as of this encounter
--- OUTSIDE RECORDS SUMMARY | 2025-01-03 18:16 | XMS_ITS | Encounter Summary ---
Author Organization [facility] Address [address] [place] [address] Care Team Providers Care Recycling Manager Name Role Phone Marsha Truner MD Primary Care Provider +1- [phone] Encounter Details Date Type Department Care Team (Late st Contact Info) Description 03/05/2008 [facility]patient [facility] [address] [facility] [address] [place] [address] Aaron Ayala MD [address] [place] [address] Malig Thierno Skin Face NEC Social History Tobacco Use Types Packs/Day Years Used Date Smoking Tobacco: Never Assessed Sex and Gender Information Value Date Recorded Sex Assigned at Not on file Legal Sex Male 6:16 AM PRECISION LENS POLISHER Gender Identity Not on file Sexual Orientation Not on file documented as of this encounter Progress Notes * Elenita Lora - 03/07/2008 8:42 AM CSTQuick Note: Pt's notified of results, adq tx. Recheck 4 months. ISION LENS POLISHER documented in this encounter Plan of Treatment Not on file documented as of this encounter Procedures Procedure Name Priority Date/Time Associated Diagnosis Comments PATHOLOGY Routine 03/05/2008 1:19 PM PRECISION LENS POLISHER documented in this encounter Results * PATHOLOGY (03/05/2008 1:19 PM PRECISION LENS POLISHER) PATHOLOGY/CYT OLOGY REPORT [facility] [address] Patient: LOGAN MARINELLI Accn No: [id number] Collected: 03/05/2008 1:19:00 PM DERMATOPATHOLOGY FINAL REPORT [...] cassette A1. 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 There are some keratinocytes with atypical nuclear features, and there are scattered mitotic figures. 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
--- OUTSIDE RECORDS SUMMARY | 2025-01-03 18:16 | XMS_ITS | Encounter Summary ---
Author Organization [facility] Address [address] [place] [address] Care Team Providers Care Cork Mixer Name Role Phone Marsha Turner MD Primary Care Provider +1- [phone] Encounter Details Date Type Department Care Team (Late st Contact Info) Description 06/14/2006 Outpatient [place] [facility] [address] [place] [address] Thomas Mack MD NO ADDRESS ON FILE Malig Thierno Prostate (Primary Dx); Slow Urinary Stream Social History Tobacco Use Types Packs/Day Years Used Date Smoking Tobacco: Never Assessed Sex and Gender Information Value Date Recorded Sex Assigned at Not on file Legal Sex Male 6:16 AM DIRECTOR OF QUALITY Gender Identity Not on file Sexual Orientation Not on file documented as of this encounter Plan of Treatment Not on file documented as of this encounter Visit Diagnoses Diagnosis Malig thierno prostate- Primary Malignant neoplasm of prostate Slow urinary stream Slowing of urinary stream documented in this encounter Care Teams Cork Mixer Relationship Specialty Start Date End Date Marsha Turner MD [address] [place], [place] [id number] PCP - General Internal Medicine 05/31/12 documented as of this encounter
--- OUTSIDE RECORDS SUMMARY | 2025-01-03 18:16 | XMS_ITS | Encounter Summary ---
Author Organization [facility] Address [address] [place] [address] Care Team Providers Care Tower Hand Name Role Phone Marsha Turner MD Primary Care Provider +1- [phone] Encounter Details Date Type Department Care Team (Latest Contact Info) Description 05/05/2005 Outpatient [facility] Gastroenterology[address] [place] [address] Abilio Bagley MD [address] [place] [address] CHEST PAIN NOS (Primary Dx); STOMACH FUNCTION DIS NEC; DYSPHAGIA Social History Tobacco Use Types Packs/Day Years Used Date Smoking Tobacco: Never Assessed Sex and Gender Information Value Date Recorded Sex Assigned at Not on file Legal Sex Male 6:16 AM INTERNATIONAL STUDENT COUNSELOR Gender Identity Not on file Sexual Orientation Not on file documented as of this encounter Plan of Treatment Not on file documented as of this encounter Visit Diagnoses Diagnosis Chest pain, unspecified- Primary Dyspepsia and other specified disorders of function of stomach Dysphagia documented in this encounter Care Teams Tower Hand Relationship Specialty Start Date End Date Marsha Turner MD [address] [place] [address] PCP - General Internal Medicine 05/31/12 documented as of this encounter
--- OUTSIDE RECORDS SUMMARY | 2025-01-03 18:16 | XMS_ITS | Encounter Summary ---
Author Organization [facility] Address [address] [place] [address] Care Team Providers Care Weighmaster Lead Name Role Phone Marsha Turner MD Primary Care Provider +1- [phone] Encounter Details Date Type Department Care Team (Late st Contact Info) Description 03/05/2008 Outpatient Historical [facility] PreAdmission [address] [place] [address] Dee Casillas MD [address] [address] Social History Tobacco Use Types Packs/Day Years Used Date Smoking Tobacco: Never Assessed Sex and Gender Information Value Date Recorded Sex Assigned at Not on file Legal Sex Male 6:16 AM DIRECTOR DATA MANAGEMENT Gender Identity Not on file Sexual Orientation Not on file documented as of this encounter Plan of Treatment Not on file documented as of this encounter Procedures Procedure Name Priority Date/Time Associated Diagnosis Comments XR CHEST PA OR AP 1 VW Routine 8 5:03 PM DIRECTOR DATA MANAGEMENT URINALYSIS W/REFLEX MICROSCOPIC Stat 03/05/2008 4:54 PM DIRECTOR DATA MANAGEMENT ABORH TYPING Stat 03/05/2008 4:20 PM DIRECTOR DATA MANAGEMENT CBC WITH DIFFERENTIAL Stat 03/05/2008 4:20 PM DIRECTOR DATA MANAGEMENT PROTIME-INR Stat 03/05/2008 4:20 PM DIRECTOR DATA MANAGEMENT BLOOD BANK ANTIBODY SCREEN Stat 03/05/2008 4:20 PM DIRECTOR DATA MANAGEMENT COMPREHENSIVE METABOLIC PANEL Stat 03/05/2008 4:20 PM DIRECTOR DATA MANAGEMENT documented in this encounter Results * XR CHEST PA OR AP (03/05/2008 5:03 PM DIRECTOR DATA MANAGEMENT) Anatomical Region Laterality Modality Chest Other 03/05/2008 5:03 PM DIRECTOR DATA MANAGEMENT Narrative 03/06/2008 3:36 PM DIRECTOR DATA MANAGEMENT Exam: Chest - PA Date/Time of Exam: [...] Result * (ABNORMAL) URINALYSIS (03/05/2008 4:54 PM DIRECTOR DATA MANAGEMENT) LEUKOCYTE ESTERASE UA NEGATIVE NEGATIVE [facility] KETONES UA NEGATIVE NEGATIVE [facility] MICRO EXAM No No [facility] COLOR UA Yellow Straw [facility] PROTEIN UA NEGATIVE NEGATIVE [facility] BLOOD UA NEGATIVE NEGATIVE [facility] NITRITE UA NEGATIVE NEGATIVE [facility] UROBILINOGEN UA 1.0(A) 0.2 [facility] CLARITY UA Clear Clear [facility] SPECIFIC GRAVITY UA 1.010 <=1.005 [facility] GLUCOSE UA NEGATIVE NEGATIVE [facility] PH UA 7.0 5.0 - 9.0 [facility] BILIRUBIN UA NEGATIVE NEGATIVE [facility] Urine specimen (specimen) 03/05/2008 4:54 PM DIRECTOR DATA MANAGEMENT 03/05/2008 4:54 PM DIRECTOR DATA MANAGEMENT us Dee Casillas MD URINE ORDERABLES Final Result Performing Organization Address City/State/[facility] Co de Phone Number INTERFACE SYSTEM Refer to clinic/hospital department [facility] CLIA# [id number] [address] [place] [address] * (ABNORMAL) CBC WITH DIFFERENTIAL (03/05/2008 4:20 PM DIRECTOR DATA MANAGEMENT) HEMOGLOBIN 11.6(L) 14.0 - 18.0 g/dL [facility] LYMPHOCYTES 15.1(L) 24.0 - 44.0 % [facility] LYMPHOCYTE ABSOLUTE 1.0(L) 1.2 - 4.0 K/ul [facility] WBC 6.4 4.8 - 10.8 K/ul [facility] MCH 30.4 27.0 - 34.[address] [facility] MPV 9.1 8.9 - 12.[address] [facility] BASOPHILS ABSOLUTE 0.0 0.0 - 0.2 K/ul [facility] BASOPHILS 0.5 0.0 - 1.0 % [facility] MCHC 33.8 30.0 - 35.0 g/dL [facility] HEMATOCRIT 34.3(L) 41.0 - 53.0 % [facility] RDW 13.9 11.0 - 14.5 % [facility] MONOCYTE ABSOLUTE 0.6 0.1 - 0.6 K/ul [facility] MONOCYTES 9.6 2.0 - 10.0 % [facility] RBC 3.82(L) 4.60 - 6.20 Mil/ul [facility] NEUTROPHIL ABSOLUTE 4.6 2.0 - 8.0 K/ul [facility] NEUTROPHILS 72.9 42.2 - 75.2 % [facility] MCV 89.8 84.0 - 103.[address] [facility] EOSINOPHILS 1.9 0.0 - 7.0 % [facility] PLATELETS 221 140 - 440 K/ul [facility] EOSINOPHIL ABSOLUTE 0.1 0.0 - 0.7 K/ul [facility] Blood specimen (specimen) 03/05/2008 4:20 PM DIRECTOR DATA MANAGEMENT 03/05/2008 4:30 PM DIRECTOR DATA MANAGEMENT us Dee Casillas MD HEMATOLOGY ORDERABLES Final Resu lt INTERFACE SYSTEM Refer to clinic/hospital department [facility]# [id number] [address] [place] [address] * PROTIME-INR (03/05/2008 4:20 PM DIRECTOR DATA MANAGEMENT) INR 1.0 [facility] Comment: Expected Values for INR: DVT/PE Goal INR 2.5; range 2.0 - 3.0 Valve Replacement Tissue Goal INR 2.5; range 2.0 - 3.0 Mechanical Goal INR 3.0; range 2.5 - 3.5 POST-NV Goal INR 2.5; range 2.0 - 3.0 or Goal 3.0; range 2.5 - 3.5 Atrial Fibrillation Goal INR 2.5; range 2.0 - 3.0 Ischemic Stroke Goal INR 2.5; range 2.0 - 3.0 For additional information see Guidelines for Anticoagulation available from the pharmacy Nichelle Mike [phone] PROTIME 14.0 12.8 - 15.[address] [facility] Comment:As of 2007 not e change in normal range. Blood specimen (specimen) 03/05/2008 4:20 PM DIRECTOR DATA MANAGEMENT 03/05/2008 4:30 PM DIRECTOR DATA MANAGEMENT us Dee Casillas MD HEMATOLOGY ORDERABLES Final Resu lt Performing Organization Address [facility] Phone Number INTERFACE SYSTEM Refer to clinic/hospital department [facility] CLIA# [id number] [address] [place] [address] * ANTIBODY SCREEN (03/05/2008 4:20 PM DIRECTOR DATA MANAGEMENT) ANTIBODY SCREEN Negative [facility] Blood specimen (specimen) 03/05/2008 4:20 PM DIRECTOR DATA MANAGEMENT 03/05/2008 4:30 PM DIRECTOR DATA MANAGEMENT Dee Casillas MD BLOOD BANK ORDERABLES Final Resu lt Performing Organization Address [facility] Phone Number INTERFACE SYSTEM Refer to clinic/hospital department [facility] CLIA# [id number] [address] [place] [address] * ABORH TYPING (03/05/2008 4:20 PM DIRECTOR DATA MANAGEMENT) ABO/RH TYPE A Positive [facility] Blood specimen (specimen) 03/05/2008 4:20 PM DIRECTOR DATA MANAGEMENT 03/05/2008 4:30 PM DIRECTOR DATA MANAGEMENT Dee Casillas MD BLOOD BANK ORDERABLES Final Resu lt Performing Organization Address [facility] Phone Number INTERFACE SYSTEM Refer to clinic/[facility] department [facility] CLIA# [id number] [address] [place] [address] * (ABNORMAL) COMPREHENSIVE METABOLIC PANEL (03/05/2008 4:20 PM DIRECTOR DATA MANAGEMENT) ALBUMIN 4.4 3.5 - 5.0 g/dL [facility] POTASSIUM 3.9 3.5 - 5.0 mEq/L [facility] GLOBULIN (CALC) 2.6 2.4 - 3.9 g/dL [facility] CREATININE 0.9 0.7 - 1.5 mg/dL [facility] CALCIUM 9.2 8.4 - 10.5 mg/dL [facility] OSMOLALITY, CALCULATED 289 275 - 295 mOsm/Kg [facility] ALT 17 4 - 36 IU/L [facility] GLUCOSE 118(H) 70 - 110 mg/dL [facility] CHLORIDE 108 95 - 110 mEq/L [facility] ALBUMIN/GLOBULIN RATIO 1.7 1.0 - 2.3 [facility] ALKALINE PHOSPHATASE 71 25 - 100 U/L [facility] SODIUM 141 136 - 145 mEq/L [facility] BILIRUBIN TOTAL 0.3 0.3 - 1.2 mg/dL [facility] TOTAL PROTEIN 7.0 6.3 - 8.2 g/dL [facility] BUN 9 9 - 20 mg/dL [facility] AST 16 8 - 33 U/L [facility] CO2 27 22 - 32 mmol/l [facility] ANION GAP 10 9 - 20 mEq/L [facility] Blood specimen (specimen) 03/05/2008 4:20 PM DIRECTOR DATA MANAGEMENT 03/05/2008 4:30 PM DIRECTOR DATA MANAGEMENT us Dee Casillas MD CHEMISTRY ORDERABLES Final Resul t INTERFACE SYSTEM Refer to clinic/hospital department [facility] CLIA# [id number] Replaced by [facility] [place] [address] documented in this encounter Visit Diagnoses Not on filedocumented in this encounter Care Teams Weighmaster Lead Relationship Specialty Start Date End Date Marsha Turner MD [address] [place] [address] PCP - General Internal Medicine 05/31/12 documented as of this encounter
--- OUTSIDE RECORDS SUMMARY | 2025-01-03 18:16 | XMS_ITS | Encounter Summary ---
Author Organization [facility] Address [address] [place] [address] Care Team Providers Care Bun Machine Operator Name Role Phone Marsha Turner MD Primary Care Provider +1- [phone] Encounter Details Date Type Department Care Team (Late st Contact Info) Description 06/14/2006 Outpatient Historical [facility] Abrhaam Laura [address] [place] [address] Thomas Mack MD NO ADDRESS ON FILE Malignant Neoplasm of Prostate (CMS/HCC) (Primary Dx) Social History Tobacco Use Types Packs/Day Years Used Date Smoking Tobacco: Never Assessed Sex and Gender Information Value Date Recorded Sex Assigned at Not on file Legal Sex Male 6:16 AM RETAIL PROJECT 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
--- OUTSIDE RECORDS SUMMARY | 2025-01-03 18:16 | XMS_ITS | Encounter Summary ---
Author Organization [facility] Address [address] [place] [address] Care Team Providers Care Painter Supervisor Name Role Phone Marsha Turner MD Primary Care Provider +1- [phone] Encounter Details Date Type Department Care Team (Latest Contact Info) Description 06/14/2006 Outpatient [facility] [place] [address] Abilio Bagley MD [address] [place] [address] Acute Pancreatitis (Primary Dx) Social History Tobacco Use Types Packs/Day Years Used Date Smoking Tobacco: Never Assessed Sex and Gender Information Value Date Recorded Sex Assigned at Not on file Legal Sex Male 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
--- OUTSIDE RECORDS SUMMARY | 2025-01-03 18:16 | XMS_ITS | Encounter Summary ---
Author Organization [facility] Address [address] [place] [address] Care Team Providers Care Wall Covering Contractor Name Role Phone Marsha Turner MD Primary Care Provider +1- [phone] Encounter Details Date Type Department Care Team (Late st Contact Info) Description 09/26/2004 Outpatient Historical [facility] Urology- [address] Entrance B, 3rd [place] [address] Thomas Mack MD NO ADDRESS ON FILE Malig emmett prostate (Primary Dx) Social History Tobacco Use Types Packs/Day Years Used Date Smoking Tobacco: Never Assessed Sex and Gender Information Value Date Recorded Sex Assigned at Not on file 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
--- OUTSIDE RECORDS SUMMARY | 2025-01-03 18:16 | XMS_ITS | Encounter Summary ---
Author Organization [facility] Address [address] 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
--- OUTSIDE RECORDS SUMMARY | 2025-01-03 18:16 | XMS_ITS | Encounter Summary ---
Author Organization [facility] Address [address] 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
--- OUTSIDE RECORDS SUMMARY | 2025-01-03 18:16 | XMS_ITS | Encounter Summary ---
Author Organization [facility] Address [address] [place] [address] Care Team Providers Care Tower Attendant Name Role Phone Marsha Turner MD Primary Care Provider +1- [phone] Encounter Details Date Type Department Care Team (Late st Contact Info) Description 10/08/2004 Outpatient Historical [facility] [address] [place] [address] Thomas Mack MD NO ADDRESS ON FILE MALIGN NEOPL PROSTATE (CMS/HCC) (Primary Dx) Social History Tobacco Use Types Packs/Day Years Used Date Smoking Tobacco: Never Assessed Sex and Gender Information Value Date Recorded Sex Assigned at Not on file Legal Sex Male 6:16 AM END FRAZER Gender Identity Not on file Sexual Orientation Not on file documented as of this encounter Plan of Treatment Not on file documented as of this encounter Visit Diagnoses Diagnosis Malignant neoplasm of prostate (CMS/HCC)- Primary Malignant neoplasm of prostate documented in this encounter Care Teams Tower Attendant Relationship Specialty Start Date End Date Marsha Turner MD [address] [place] [address] PCP - General Internal Medicine 05/31/12 documented as of this encounter
--- OUTSIDE RECORDS SUMMARY | 2025-01-03 18:16 | XMS_ITS | Encounter Summary ---
Author Organization [facility] Address [address] [place] [address] Care Team Providers Care Menhaden Fishing Crew Member Name Role Phone Marsha Turner MD Primary Care Provider +1- [phone] Encounter Details Date Type Department Care Team (Late st Contact Info) Description 03/05/2008 Outpatient Historical [facility] DEFAULT DEPARTMENT Dee Casillas MD [address] [phone] Social History Tobacco Use Types Packs/Day Years Used Date Smoking Tobacco: Never Assessed Sex and Gender Information Value Date Recorded Sex Assigned at Not on file Legal Sex Male 6: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
--- OUTSIDE RECORDS SUMMARY | 2025-01-03 18:16 | XMS_ITS | Encounter Summary ---
Author Organization [facility] Address [address] 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
--- OUTSIDE RECORDS SUMMARY | 2025-01-03 18:17 | XMS_ITS | Encounter Summary ---
Author Organization [facility] Address [address] [place] [address] Care Team Providers Care Rehabilitation Program Coordinator Name Role Phone Marsha Turner MD Primary Care Provider +1- [phone] Encounter Details Date Type Department Care Team (Latest Contact Info) Description 09/28/2000 Outpatient Historical [facility] Medicine [address] [place] [address] Lakhwinder Mahmood MD Nonspecific abnormal results of liver function study (Primary Dx) Social History Tobacco Use Types Packs/Day Years Used Date Smoking Tobacco: Never Assessed Sex and Gender Information Value Date Recorded Sex Assigned at Not on file Legal Sex Male 6:16 AM CASING BLOWER Gender Identity Not on file Sexual Orientation Not on file documented as of this encounter Plan of Treatment Not on file documented as of this encounter Visit Diagnoses Diagnosis Nonspecific abnormal results of liver function study- Primary documented in this encounter Care Teams Rehabilitation Program Coordinator Relationship Specialty Start Date End Date Marsha Turner MD [address] [place], [place] [address] PCP - General Internal Medicine 05/31/12 documented as of this encounter
--- OUTSIDE RECORDS SUMMARY | 2025-01-03 18:17 | XMS_ITS | Encounter Summary ---
Author Organization [facility] Address [address] [place] [address] Care Team Providers Care Electronic Plotting System Operator Name Role Phone Marsha Turner MD Primary Care Provider +1- [phone] Encounter Details Date Type Department Care Team (Latest Contact Info) Description 10/05/2000 Outpatient Historical [facility] Medicine [address] [place] [address] Lakhwinder Mahmood MD Nonspecific abnormal finding in stool contents (Primary Dx) Social History Tobacco Use Types Packs/Day Years Used Date Smoking Tobacco: Never Assessed Sex and Gender Information Value Date Recorded Sex Assigned at Not on file 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
--- OUTSIDE RECORDS SUMMARY | 2025-01-03 18:17 | XMS_ITS | Encounter Summary ---
Author Organization [facility] Address [address] [place] [address] Care Team Providers Care Sales Operations Consultant Name Role Phone Marsha Turner MD Primary Care Provider +1- [phone] Encounter Details Date Type Department Care Team (Late st Contact Info) Description 12/09/2004 Outpatient Historical [facility] Urology- [address] Entrance B, 3rd [place] [address] Thomas Mack MD NO ADDRESS ON FILE Malig emmett prostate (Primary Dx); DYSURIA; Slow urinary stream Social History Tobacco Use Types Packs/Day Years Used Date Smoking Tobacco: Never Assessed Sex and Gender Information Value Date Recorded Sex Assigned at Not on file Legal Sex Male 6:16 AM 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
--- OUTSIDE RECORDS SUMMARY | 2025-01-03 18:17 | XMS_ITS | Encounter Summary ---
Author Organization [facility] Address [address] [place] [address] Care Team Providers Care Pumping Station Engineer Name Role Phone Marsha Turner MD Primary Care Provider +1- [phone] Encounter Details Date Type Department Care Team (Latest Contact Info) Description 12/31/2003 Outpatient Historical [facility] Cardiac Laborer Drying Department [address] [place] [address] Hosea Wilson MD [address] [facility] [address] [place] [address] CORON ATHEROSCL [place] CORON VESSEL (Primary Dx) Social History Tobacco Use Types Packs/Day Years Used Date Smoking Tobacco: Never Assessed Sex and Gender Information Value Date Recorded Sex Assigned at Not on file Legal Sex Male 6:16 AM WATCH ASSEMBLER Gender Identity Not on file Sexual Orientation Not on file documented as of this encounter Plan of Treatment Not on file documented as of this encounter Visit Diagnoses Diagnosis Coronary atherosclerosis of [place] coronary artery- Primary documented in this encounter Care Teams Pumping Station Engineer Relationship Specialty Start Date End Date Marsha Turner MD [address] [place] [address] PCP - General Internal Medicine 05/31/12 documented as of this encounter
--- OUTSIDE RECORDS SUMMARY | 2025-01-03 18:17 | XMS_ITS | Encounter Summary ---
Author Organization [facility] Address [address] [place] [address] Care Team Providers Care Section Chief Name Role Phone Marsha Turner MD Primary Care Provider +1- [phone] Encounter Details Date Type Department Care Team (Late st Contact Info) Description 08/26/2004 Outpatient Historical [facility] Urology- [address] Entrance B, 3rd [place] [phone] Thomas Mack MD NO ADDRESS ON FILE CHRONIC PROSTATITIS (Primary Dx); FAMILY HX-PROSTATIC MALIGNANCY Social History Tobacco Use Types Packs/Day Years Used Date Smoking Tobacco: Never Assessed Sex and Gender Information Value Date Recorded Sex Assigned at Not on file Legal Sex Male 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
--- OUTSIDE RECORDS SUMMARY | 2025-01-03 18:17 | XMS_ITS | Encounter Summary ---
Author Organization [facility] Address [address] [place] [address] Care Team Providers Care Software Tools Developer Name Role Phone Marsha Turner MD Primary Care Provider +1- [phone] Encounter Details Date Type Department Care Team (Late st Contact Info) Description 10/16/2004 Outpatient Historical [facility] Urology- [address] Entrance B, 3rd [place] [phone] Thomas Mack MD NO ADDRESS ON FILE Malig emmett prostate (Primary Dx) Social History Tobacco Use Types Packs/Day Years Used Date Smoking Tobacco: Never Assessed Sex and Gender Information Value Date Recorded Sex Assigned at Not on file Legal Sex Male 6: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
--- OUTSIDE RECORDS SUMMARY | 2025-01-03 18:17 | XMS_ITS | Encounter Summary ---
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 Gender Identity Not on file Sexual Orientation Not on file documented as of this encounter Plan of Treatment Not on file documented as of this encounter Procedures Procedure Name Priority Date/Time Associated Diagnosis Comments PSA MEDICARE SCREEN Routine 05/28/2004 8 :26 AM INTERNATIONAL TRADE MANAGER URINALYSIS MICROSCOPY ONLY Routine 05/27/2004 8:51 PM INTERNATIONAL TRADE MANAGER URINALYSIS W/REFLEX MICROSCOPIC Routine 05/27/2004 8:51 PM INTERNATIONAL TRADE MANAGER CBC WITH DIFFERENTIAL Routine 05/26/2004 5:07 AM INTERNATIONAL TRADE MANAGER TSH Routine 05/26/2004 5:07 AM INTERNATIONAL TRADE MANAGER LIPID PANEL Routine 05/26/2004 5:07 AM INTERNATIONAL TRADE MANAGER BASIC METABOLIC PANEL Routine 05/26/2004 5:07 AM INTERNATIONAL TRADE MANAGER URINALYSIS MICROSCOPY ONLY Routine 05/25/2004 2:02 PM INTERNATIONAL TRADE MANAGER URINALYSIS W/REFLEX MICROSCOPIC Routine 05/25/2004 2:02 PM INTERNATIONAL TRADE MANAGER PTT Routine 05/25/2004 5:41 AM INTERNATIONAL TRADE MANAGER CBC WITHOUT DIFFERENTIAL Routine 05/25/2004 5:41 AM INTERNATIONAL TRADE MANAGER CARDIAC ENZYMES Routine 05/25/2004 3:42 AM INTERNATIONAL TRADE MANAGER CARDIAC ENZYMES Routine 05/24/2004 9:06 PM INTERNATIONAL TRADE MANAGER URINALYSIS MICROSCOPY ONLY Routine 05/24/2004 5:22 PM INTERNATIONAL TRADE MANAGER URINALYSIS W/REFLEX MICROSCOPIC Routine 05/24/2004 5:22 PM INTERNATIONAL TRADE MANAGER CARDIAC ENZYMES Routine 05/24/2004 3:18 PM INTERNATIONAL TRADE MANAGER PTT Routine 05/24/2004 3:18 PM INTERNATIONAL TRADE MANAGER DRUG SCREEN, URINE Routine 05/24/2004 10 :52 AM INTERNATIONAL TRADE MANAGER D-DIMER Routine 05/24/2004 9:30 AM INTERNATIONAL TRADE MANAGER documented in this encounter Results * PSA MEDICARE SCREEN (05/28/2004 8:26 AM INTERNATIONAL TRADE MANAGER) PSA 2.8 0.0 - 4.0 ng/mL INTERFACE SYSTEM Comment:Results for patients receiving treatment must be evaluated individually by the physician. 05/28/2004 8:26 AM INTERNATIONAL TRADE MANAGER us Marj Hardy MD CHEMISTRY ORDERABLES COM Final Result INTERFACE SYSTEM Refer to clinic/hospital department * (ABNORMAL) URINALYSIS (05/27/2004 8:51 PM INTERNATIONAL TRADE MANAGER) COLOR UA Yellow Straw INTERFACE SYSTEM CLARITY [...] Yes(A) No INTERFACE SYSTEM 05/27/2004 8:51 PM INTERNATIONAL TRADE MANAGER Thomas Mack MD URINE ORDERABLES Final Result Performing Organization Address City/[facility] Co de Phone Number INTERFACE SYSTEM Refer to clinic/hospital department * URINALYSIS MICROSCOPY ONLY (05/27/2004 8:51 PM INTERNATIONAL TRADE MANAGER) WBC URINE None Seen 0 - 2 INTERFACE SYSTEM RBC UA None Seen 0 - 2 INTERFACE SYSTEM HYALINE CAST 0-2 0 - 2 INTERFA CE SYSTEM 05/27/2004 8:51 PM INTERNATIONAL TRADE MANAGER Thomas Mack MD URINE ORDERABLES Final Result Performing Organization Address [facility] Phone Number INTERFACE SYSTEM Refer to clinic/hospital department * (ABNORMAL) CBC WITH DIFFERENTIAL (05/26/2004 5:07 AM INTERNATIONAL TRADE MANAGER) WBC 3.7(L) 4.8 - 10.8 K/ul INTERFACE [...] 0.2 K/ul INTERFACE SYSTEM 05/26/2004 5:07 AM INTERNATIONAL TRADE MANAGER Marj Hardy MD HEMATOLOGY ORDERABLES Final Re sult Performing Organization Address [facility] de Phone Number INTERFACE SYSTEM Refer to clinic/hospital department * (ABNORMAL) TSH (05/26/2004 5:07 AM INTERNATIONAL TRADE MANAGER) TSH <0.03(L) 0.49 - 4.67 uIU/ml INTERFACE SYSTEM 05/26/2004 5:07 AM INTERNATIONAL TRADE MANAGER Marj Hardy MD CHEMISTRY ORDERABLES Final Res ult Performing Organization Address [facility] Co de Phone Number INTERFACE SYSTEM Refer to clinic/hospital department * (ABNORMAL) BASIC METABOLIC PANEL (05/26/2004 5:07 AM INTERNATIONAL TRADE MANAGER) GLUCOSE 167(H) 70 - 110 mg/dL INTERFACE [...] 10.5 mg/dL INTERFACE SYSTEM 05/26/2004 5:07 AM INTERNATIONAL TRADE MANAGER Result [facility] Marj Hardy MD CHEMISTRY ORDERABLES Final Res ult Performing Organization Address [facility] Phone Number INTERFACE SYSTEM Refer to clinic/hospital department * (ABNORMAL) LIPID PANEL (05/26/2004 5:07 AM INTERNATIONAL TRADE MANAGER) CHOLESTEROL 120 75 - 200 mg/dL INTERFACE SYSTEM TRIGLYCERIDE 66 0 - 200 mg/dL INTERFACE SYSTEM CALCULATED TOTAL CHOLESTEROL TO HDL RATIO 2.93(L) 3.43 - 4.97 INTERFACE SYSTEM HDL 41 40 - 60 mg/dL INTERFACE SYSTEM LDL CALCULATED 66 0 - 130 mg/dL INTERFACE SYSTEM 05/26/2004 5:07 AM INTERNATIONAL TRADE MANAGER Result [facility] Marj Hardy MD CHEMISTRY ORDERABLES Final Res ult Performing Organization Address [facility] Phone Number INTERFACE SYSTEM Refer to clinic/hospital department * (ABNORMAL) URINALYSIS (05/25/2004 2:02 PM INTERNATIONAL TRADE MANAGER) COLOR UA Yellow Straw INTERFACE SYSTEM CLARITY [...] Yes(A) No INTERFACE SYSTEM 05/25/2004 2:02 PM INTERNATIONAL TRADE MANAGER Result [facility] Marj Hardy MD URINE ORDERABLES Final Result Performing Organization Address [facility] Phone Number INTERFACE SYSTEM Refer to clinic/hospital department * (ABNORMAL) URINALYSIS MICROSCOPY ONLY (05/25/2004 2:02 PM INTERNATIONAL TRADE MANAGER) WBC URINE 0-2 0 - 2 INTERFACE SYSTEM RBC UA 3-5(A) 0 - 2 INTERFACE SYSTEM HYALINE CAST None Seen 0 - 2 INTERFA CE SYSTEM BACTERIA UA None Seen None Seen INTERFAC E SYSTEM 05/25/2004 2:02 PM INTERNATIONAL TRADE MANAGER Marj Hardy MD URINE ORDERABLES Final Result Performing Organization Address [facility] de Phone Number INTERFACE SYSTEM Refer to clinic/hospital department * (ABNORMAL) PTT (05/25/2004 5:41 AM INTERNATIONAL TRADE MANAGER) PTT 47.8(H) 24.3 - 37.5 Secs INTERFACE SYSTEM Comment:Therapeutic Range: 05/25/2004 5:41 AM INTERNATIONAL TRADE MANAGER Marj Hardy MD HEMATOLOGY ORDERABLES Final Re sult Performing Organization Address City/[facility] de Phone Number INTERFACE SYSTEM Refer to clinic/hospital department * (ABNORMAL) CBC WITHOUT DIFFERENTIAL (05/25/2004 5:41 AM INTERNATIONAL TRADE MANAGER) WBC 4.5(L) 4.8 - 10.8 K/ul INTERFACE [...] 0.2 K/ul INTERFACE SYSTEM 05/25/2004 5:41 AM INTERNATIONAL TRADE MANAGER Result Jennifer Hardy MD HEMATOLOGY ORDERABLES Final Re sult Performing Organization Address City/[facility] Co de Phone Number INTERFACE SYSTEM Refer to clinic/hospital department * CARDIAC ENZYMES (05/25/2004 3:42 AM INTERNATIONAL TRADE MANAGER) CKMB 0.7 0.0 - 5.5 ng/mL INTERFACE SYSTEM TROPONIN I 0.0 0.0 - 1.5 ng/mL INTERFACE SYSTEM Comment: Expected Range: Normal 0.0 - 1.5 ng/ml Borderline 1.6 - 4.4 ng/ml Positive > = 4.5 ng/ml 05/25/2004 3:42 AM INTERNATIONAL TRADE MANAGER Result Jennifer Hardy MD CHEMISTRY ORDERABLES Final Res ult Performing Organization Address City/[facility] Co de Phone Number INTERFACE SYSTEM Refer to clinic/hospital department * CARDIAC ENZYMES (05/24/2004 9:06 PM INTERNATIONAL TRADE MANAGER) CKMB <0.7 0.0 - 5.5 ng/mL INTERFACE SYSTEM TROPONIN I 0.0 0.0 - 1.5 ng/mL INTERFACE SYSTEM Comment: Expected Range: Normal 0.0 - 1.5 ng/ml Borderline 1.6 - 4.4 ng/ml Positive > = 4.5 ng/ml 05/24/2004 9:06 PM INTERNATIONAL TRADE MANAGER Result Jennifer Hardy MD CHEMISTRY ORDERABLES Final Res ult Performing Organization Address [facility] Phone Number INTERFACE SYSTEM Refer to clinic/hospital department * (ABNORMAL) URINALYSIS (05/24/2004 5:22 PM INTERNATIONAL TRADE MANAGER) COLOR UA Yellow Straw INTERFACE SYSTEM CLARITY [...] Yes(A) No INTERFACE SYSTEM 05/24/2004 5:22 PM INTERNATIONAL TRADE MANAGER Marj Hardy MD URINE ORDERABLES Final Result Performing Organization Address [facility] Phone Number INTERFACE SYSTEM Refer to clinic/hospital department * (ABNORMAL) URINALYSIS MICROSCOPY ONLY (05/24/2004 5:22 PM INTERNATIONAL TRADE MANAGER) WBC URINE 0-2 0 - 2 INTERFACE SYSTEM RBC UA >80(A) 0 - 2 INTERFACE SYSTEM HYALINE CAST None Seen 0 - 2 INTERFA CE SYSTEM BACTERIA UA None Seen None Seen INTERFAC E SYSTEM 05/24/2004 5:22 PM INTERNATIONAL TRADE MANAGER Marj Hardy MD URINE ORDERABLES Final Result Performing Organization Address [facility] Phone Number INTERFACE SYSTEM Refer to clinic/hospital department * CARDIAC ENZYMES (05/24/2004 3:18 PM INTERNATIONAL TRADE MANAGER) CKMB 0.7 0.0 - 5.5 ng/mL INTERFACE SYSTEM TROPONIN I 0.0 0.0 - 1.5 ng/mL INTERFACE SYSTEM Comment: Expected Range: Normal 0.0 - 1.5 ng/ml Borderline 1.6 - 4.4 ng/ml Positive > = 4.5 ng/ml 05/24/2004 3:18 PM INTERNATIONAL TRADE MANAGER Result [facility] Marj Hardy MD CHEMISTRY ORDERABLES Final Res ult Performing Organization Address [facility] Phone Number INTERFACE SYSTEM Refer to clinic/hospital department * (ABNORMAL) PTT (05/24/2004 3:18 PM INTERNATIONAL TRADE MANAGER) PTT 75.3(H) 24.3 - 37.5 Secs INTERFACE SYSTEM Comment:Therapeutic Range: 05/24/2004 3:18 PM INTERNATIONAL TRADE MANAGER Result [facility] Marj Hardy MD HEMATOLOGY ORDERABLES Final Re sult Performing Organization Address [facility] Phone Number INTERFACE SYSTEM Refer to clinic/hospital department * (ABNORMAL) DRUG SCREEN, URINE (05/24/2004 10:52 AM INTERNATIONAL TRADE MANAGER) OPIATE QUAL, URINE Drug Positive(A) Drug Negative [...] Negative INTERFACE SYSTEM 05/24/2004 10:5 2 AM INTERNATIONAL TRADE MANAGER Result Jennifer Hardy MD URINE ORDERABLES Final Result Performing Organization Address [facility] Phone Number INTERFACE SYSTEM Refer to clinic/hospital department * (ABNORMAL) D-DIMER (05/24/2004 9:30 AM INTERNATIONAL TRADE MANAGER) D-DIMER QUANT 2.0(H) 0.0 - 0.5 mcg/mL INTERFACE SYSTEM 05/24/2004 9:30 AM INTERNATIONAL TRADE MANAGER Result Jennifer Hardy MD HEMATOLOGY ORDERABLES Final Re sult Performing Organization Address [facility] de Phone Number INTERFACE SYSTEM Refer to clinic/hospital department documented in this encounter Visit Diagnoses Diagnosis Unspecified asthma(493.90)- Primary Unspecified asthma documented in this encounter Care Teams Wood Finisher Relationship Specialty Start Date End Date Marsha Turner MD [address] [place] [address] PCP - General Internal Medicine 05/31/12 documented as of this encounter
--- OUTSIDE RECORDS SUMMARY | 2025-01-03 18:17 | XMS_ITS | Encounter Summary ---
Author Organization [facility] Address [address] [place] [address] Care Team Providers Care Automatic Grinder Operator Name Role Phone Marsha Turner MD Primary Care Provider +1- [phone] Encounter Details Date Type Department Care Team (Latest Contact Info) Description 03/11/1998 Outpatient [facility] [address] [place] [id number] Giovanni Corrigan MD [address] [place] [address] [phone] Coronary atherosclerosis of [place] coronary artery (Primary Dx) Social History Tobacco Use Types Packs/Day Years Used Date Smoking Tobacco: Never Assessed Sex and Gender Information Value Date Recorded Sex Assigned at Not on file Legal Sex Male 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
--- OUTSIDE RECORDS SUMMARY | 2025-01-03 18:17 | XMS_ITS | Encounter Summary ---
Author Organization [facility] Address [address] [place] [address] Care Team Providers Care Lpn Care Manager Name Role Phone Marsha Turner MD Primary Care Provider +- [phone] Encounter Details Date Type Department Care Team (Late st Contact Info) Description 09/12/2004 Outpatient Historical [facility] Urology- [address] Entrance B, 3rd [place] [address] Thomas Mack MD NO ADDRESS ON FILE Elevated PSA (Primary Dx) Social History Tobacco Use Types Packs/Day Years Used Date Smoking Tobacco: Never Assessed Sex and Gender Information Value Date Recorded Sex Assigned at Not on file Legal Sex Male 6:16 AM OUTSIDE 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
--- OUTSIDE RECORDS SUMMARY | 2025-01-03 18:17 | XMS_ITS | Encounter Summary ---
Author Organization [facility] Address [address] [place] [address] Care Team Providers Care Weather Strip Installer Name Role Phone Marsha Turner MD Primary Care Provider +1- [phone] Encounter Details Date Type Department Care Team (Late st Contact Info) Description 09/12/2004 Outpatient Historical [employer] [facility] [address] [place] [address] 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
[2025-01-03 18:33] LABS: Troponin 5 2HR 28.58 ng/L (0-15)
[2025-01-03 18:39] LABS: Troponin 5 2HR Delta -7.42 ABS# (0-10)
[2025-01-03 19:08] LABS: NT Pro B Type Natriuretic Pept 271 pg/mL (0-450); Procalcitonin 0.04 ng/mL (0-0.5)
[2025-01-03 20:07] VITALS: BP 108/76; PULSE 62; RESP 16; O2SAT 96
[2025-01-03 20:47] VITALS: BP 119/81; PULSE 62; RESP 16; TEMP 36.8; O2SAT 95
[2025-01-03 21:11] LABS: Estmated Average Glucose 94; Hemoglobin A1C 4.9 % (4.0-6.0)
[2025-01-03 21:11] LABS: Cholesterol 118 mg/dL (0-200); HDL Cholesterol 53 mg/dL (60-100); Thyroid Stimulating Hormone 3.45 uIU/mL (0.27-4.20); Triglycerides 83 mg/dL (0-150)
[2025-01-03] MEDS: FUROsemide 10 mg/mL SDV 4mL 40 MG IVP (21:14)
[2025-01-03] MEDS: pantoprazole 40 mg SDV IVP (21:15)
[2025-01-03 22:05] LABS: Troponin 5 6HR 27.50 ng/L (0-15)
[2025-01-03 22:06] LABS: Troponin 5 6HR Delta -8.50 ng/L (0-12)
[2025-01-03 22:09] LABS: INR 1.32 (0.8-1.2); Partial Thromboplastin Time 32.9 SECONDS (23.9-36.7); Prothrombin Time 17.20 SECONDS (12.1-14.9)
[2025-01-03 22:15] LABS: Glucose Urine UA Negative (Normal); Nitrate Urine Negative (Negative); Specific Gravity, Urine 1.030 (1.005-1.030)
[2025-01-03 22:20] LABS: Add Urine Microscopic? YES
--- NOTE | 2025-01-03 22:25 | ECG_ITS ---
[employer] [facility] Test Date: 2025-01-03 Pat Name: Kojo Marinelli Department: Room: 102 Gender: Male Freight Receiver: : 1945 Requested By: Laron Mims Order Number: [id number] Tessa MD: Priyanka Rivas M.D. Measurements Intervals Bryan Rate: 62 P: 264 KS: 148 QRS: -63 QRSD: 127 T: -7 QT: 467 QTc: 477 Interpretive Statements ECTOPIC ATRIAL RHYTHM with first-degree AV block INFERIOR MYOCARDIAL INFARCTION , OF INDETERMINATE AGE [40+ ms Q WAVE AND/OR ST/T ABNORMALITY IN II/aVF] ANTEROLATERAL MYOCARDIAL INFARCTION , OF INDETERMINATE AGE [40+ ms Q WAVE IN I/aVL/V3-V6] ST DEPRESSION, CONSIDER SUBENDOCARDIAL INJURY [0.1+ mV ST DEPRESSION] Compared to ECG 01/03/2025 17:53:37 No significant changes Electronically Signed On 01-03-2025 22:55:38 CDT by Priyanka Rivas M.D. [email or web address]
[2025-01-03 22:36] LABS: UA Slide Review UA Slide Review Perf
[2025-01-03] MEDS: HYDROmorphone 0.5 MG/0.5 ML INJ IVP (23:37)
[2025-01-04] VITALS (9 sets, daily range): BP systolic 89–135; BP diastolic 55–81; PULSE 58–79; RESP 14–29; TEMP 36.6–37.9; O2SAT 90–96
--- NOTE | 2025-01-04 00:54 | PC.NURSE ---
guardado was intializing placed around 2100, around 2245 patient called out via call light stating he felt wet, upon examining the guardado was leaking, new 18g guardado was placed at approx 2300 since new placement guardado has not leaked anymore. when placing the new 18g guardado paitent urine became red for approximately an hour, now urine color is back to bright yellow, upon placement patient complaint of pain, called MD OLIVIA gave order of 0.5mg of hydromorphone IVP once to be given, order enter and carried out per MAY
--- NOTE | 2025-01-04 02:08 | PC.NURSE ---
contacted MD about a red, yeasty rash in bilateral groin area, MD ordered fluconazole 100mg BID for 3 days also contacted MD about burning sensation with catheter placement MD ordered pyridium 100mg BID for 4 doses giving first dose now orders entered
[2025-01-04 03:43] LABS: Hematocrit 37.0 % (37-53); Hemoglobin 11.80 g/dL (11.27-16.99); Mean Corpuscular HGB Conc 31.9 g/dL (30-55); Mean Corpuscular Hemoglobin 31.5 pg (27-33); Mean Corpuscular Volume 98.7 fl (82-101); Nucleated Red Blood Cells % 0 %; Platelet Count 212 10^3/cmm (157-399); Red Blood Count 3.75 10^6/uL (3.85-5.65); White Blood Count 9.08 10^3/uL (3.29-11.43)
[2025-01-04 05:33] LABS: Alanine Aminotransferase 14 U/L (0-41); Albumin Level 3.4 g/dL (3.5-5.2); Alkaline Phosphatase 66 U/L (40-130); Anion Gap 15.9 (5-19); Aspartate Amino Transferase 14 U/L (0-40); Blood Urea Nitrogen 16 mg/dL (8-23); Calcium 8.5 mg/dL (8.5-10.5); Carbon Dioxide 24 mmol/L (22-29); Chloride 104 mmol/L (98-107); Creatinine Clr Calc Pharmacy 76.8821; Globulin 2.1 g/dL (1.3-4.6); Glucose 89 mg/dL (65-115); Magnesium 1.9 mg/dL (1.7-2.3); Osmolality Calculated 291 mOsm/kg (285-295); Potassium 3.9 mmol/L (3.5-5.1); Sodium 140 mmol/L (136-145); Total Protein 5.5 g/dL (6.6-8.7)
--- OUTSIDE RECORDS SUMMARY | 2025-01-04 06:30 | XMS_ITS | Encounter Summary ---
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
--- OUTSIDE RECORDS SUMMARY | 2025-01-04 06:30 | XMS_ITS | Encounter Summary ---
Author Organization [facility] Address [address] [place] [address] Care Team Providers Care Yarn Worker Name Role Phone Marsha Turner MD Primary Care Provider +1- [phone] Encounter Details Date Type Department Care Team (Latest Contact Info) Description 10/05/2006 Outpatient Historical [facility] [address] [facility] [address] [place] [phone] Thomas Makc MD NO ADDRESS ON FILE Encounters for Unspecified Administrative Purpose (Primary Dx) Social History Tobacco Use Types Packs/Day Years Used Date Smoking Tobacco: Never Assessed Sex and Gender Information Value Date Recorded Sex Assigned at Not on file Legal Sex Male 6:16 AM TOOL ADJUSTER Gender Identity Not on file Sexual Orientation Not on file documented as of this encounter Plan of Treatment Not on file documented as of this encounter Visit Diagnoses Diagnosis Encounters for unspecified administrative purpose- Primary documented in this encounter Care Teams Yarn Worker Relationship Specialty Start Date End Date Marsha Turner MD [address] [place] [address] PCP - General Internal Medicine 05/31/12 documented as of this encounter
--- OUTSIDE RECORDS SUMMARY | 2025-01-04 06:30 | XMS_ITS | Encounter Summary ---
Author Organization [facility] Address [address] [place] [address] Care Team Providers Care Counselor Camp Name Role Phone Marsha Turner MD Primary Care Provider +1- [phone] Encounter Details Date Type Department Care Team (Late st Contact Info) Description 10/17/2007 Outpatient Historical [facility] PreAdmission [place] [address] [place] [address] Thomas Mack MD NO ADDRESS ON FILE Social History Tobacco Use Types Packs/Day Years Used Date Smoking Tobacco: Never Assessed Sex and Gender Information Value Date Recorded Sex Assigned at Not on file 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 PROTEIN UA NEGATIVE NEGATIVE [facility] BLOOD UA NEGATIVE NEGATIVE [facility] NITRITE UA NEGATIVE NEGATIVE [facility] UROBILINOGEN UA [address] [facility] CLARITY UA Clear Clear [facility] SPECIFIC GRAVITY UA 1.025 <=1.005 [facility] GLUCOSE UA NEGATIVE NEGATIVE [facility] PH UA 5.5 5.0 - 9.0 [facility] BILIRUBIN UA NEGATIVE NEGATIVE [facility] LEUKOCYTE ESTERASE UA NEGATIVE NEGATIVE [facility] KETONES UA NEGATIVE NEGATIVE [facility] MICRO EXAM No No [facility] Urine specimen (specimen) 10/17/2007 6:43 PM CDT 10/17/2007 6:43 PM CDT Thomas Mack MD URINE ORDERABLES Final Result Performing Organization Address [facility] de Phone Number [facility] CLIA# [id number] [address] [place] [address] * PSA MEDICARE SCREEN (10/17/2007 6:00 PM CDT) PSA 0.8 0.0 - 4.0 ng/mL [facility] Blood specimen (specimen) 10/17/2007 6:00 PM CDT 10/17/2007 6:05 PM CDT Thomas Mack MD CHEMISTRY ORDERABLES C OM Final Result Performing Organization Address [facility] de Phone Number [facility] CLIA# [id number] [address] [place] [address] * (ABNORMAL) CBC WITH DIFFERENTIAL (10/17/2007 6:00 PM CDT) MONOCYTES 8.9 2.0 - 10.0 % [facility] RDW 13.8 11.0 - 14.5 % [facility] MONOCYTE ABSOLUTE 0.5 0.1 - 0.6 K/ul [facility] WBC 5.3 4.8 - 10.8 K/ul [facility] NEUTROPHILS 72.9 42.2 - 75.2 % [facility] MCH 29.6 27.0 - 34.[address] [facility] NEUTROPHIL ABSOLUTE 3.9 2.0 - 8.0 K/ul [facility] HEMATOCRIT 38.6(L) 41.0 - 53.0 % [facility] PLATELETS 190 140 - 440 K/ul [facility] EOSINOPHIL ABSOLUTE 0.1 0.0 - 0.7 K/ul [facility] EOSINOPHILS 1.5 0.0 - 7.0 % [facility] RBC 4.29(L) 4.60 - 6.20 Mil/ul [facility] MCHC 32.9 30.0 - 35.0 g/dL [facility] LYMPHOCYTE ABSOLUTE 0.8(L) 1.2 - 4.0 K/ul [facility] LYMPHOCYTES 15.8(L) 24.0 - 44.0 % [facility] MCV 90.0 84.0 - 103.[address] [facility] BASOPHILS 0.9 0.0 - 1.0 % [facility] MPV 9.6 8.9 - 12.[address] [facility] BASOPHILS ABSOLUTE 0.1 0.0 - 0.2 K/ul [facility] HEMOGLOBIN 12.7(L) 14.0 - 18.0 g/dL [facility] Blood specimen (specimen) 10/17/2007 6:00 PM CDT 10/17/2007 6:05 PM CDT Thomas Mack MD HEMATOLOGY ORDERABLES Final Result Performing Organization Address [facility] de Phone Number [facility] CLIA# [id number] [address] [place] [address] * ANTIBODY SCREEN (10/17/2007 6:00 PM CDT) [facility] Signature ANTIBODY SCREEN Negative [facility] Blood specimen (specimen) 10/17/2007 6:00 PM CDT 10/17/2007 6:05 PM CDT Thomas Mack MD BLOOD BANK ORDERABLES Final Result Performing Organization Address [facility] de Phone Number [facility] CLIA# [id number] [address] [place] [address] * ABORH TYPING (10/17/2007 6:00 PM CDT) ABO/RH TYPE A Positive [facility] Blood specimen (specimen) 10/17/2007 6:00 PM CDT 10/17/2007 6:05 PM CDT Thomas Mack MD BLOOD BANK ORDERABLES Final Result Performing Organization Address [facility] de Phone Number [facility] CLIA# [id number] [address] [place] [address] * PTT (10/17/2007 6:00 PM CDT) PTT 31.3 22.5 - 36.[address] [facility] Comment: Therapeutic Range: Hi-level PE/DVT [...] Final Result Performing Organization Address [facility] de Phone Number [facility] CLIA# [id number] [address] [place] [id number] * PROTIME-INR (10/17/2007 6:00 PM CDT) PROTIME 13.6 12.8 - 15.[address] [facility] Comment:As of 2007 not e change in normal range. INR 0.9 [facility] Comment: Expected Values for INR: DVT/PE Goal INR 2.5; range 2.0 - 3.0 Valve Replacement Tissue Goal INR 2.5; range 2.0 - 3.0 Mechanical Goal INR 3.0; range 2.5 - 3.5 POST-NC Goal INR 2.5; range 2.0 - 3.0 or Goal 3.0; range 2.5 - 3.5 Atrial Fibrillation Goal INR 2.5; range 2.0 - 3.0 Ischemic Stroke Goal INR 2.5; range 2.0 - 3.0 For additional information see Guidelines for Anticoagulation available from the pharmacy Nichelle Mike [phone] Blood specimen (specimen) 10/17/2007 6:00 PM CDT 10/17/2007 6:05 PM CDT us Thomas Mack MD HEMATOLOGY ORDERABLES Final Result [facility] CLIA# [id number] [address] [place] [address] * COMPREHENSIVE METABOLIC PANEL (10/17/2007 6:00 PM CDT) CREATININE 1.0 0.7 - 1.5 mg/dL [facility] ALT 32 4 - 36 IU/L [facility] CALCIUM 10.0 8.4 - 10.5 mg/dL [facility] OSMOLALITY, CALCULATED 287 275 - 295 mOsm/Kg [facility] GLUCOSE 108 70 - 110 mg/dL [facility] ALKALINE PHOSPHATASE 67 25 - 100 U/L [facility] CHLORIDE 108 95 - 110 mEq/L [facility] ALBUMIN/GLOBULIN RATIO 1.5 1.0 - 2.3 [facility] TOTAL PROTEIN 7.5 6.3 - 8.2 g/dL [facility] SODIUM 139 136 - 145 mEq/L [facility] BILIRUBIN TOTAL 0.4 0.3 - 1.2 mg/dL [facility] BUN 16 9 - 20 mg/dL [facility] CO2 26 22 - 32 mmol/l [facility] ANION GAP 9 9 - 20 mEq/L [facility] AST 27 8 - 33 U/L [facility] POTASSIUM 3.7 3.5 - 5.0 mEq/L [facility] GLOBULIN (CALC) 3.0 2.4 - 3.9 g/dL [facility] ALBUMIN 4.5 3.5 - 5.0 g/dL [facility] Blood specimen (specimen) 10/17/2007 6:00 PM CDT 10/17/2007 6:05 PM CDT us Thomas Mack MD CHEMISTRY ORDERABLES F inal Result [facility] CLIA# [id number] [address] [place] [address] documented in this encounter Visit Diagnoses Not on filedocumented in this encounter Care Teams Counselor Camp Relationship Specialty Start Date End Date Marsha Turner MD [address] [place], [place] [id number] PCP - General Internal Medicine 05/31/12 documented as of this encounter
--- OUTSIDE RECORDS SUMMARY | 2025-01-04 06:30 | XMS_ITS | Encounter Summary ---
Author Organization [facility] Address [address] [place] [address] Care Team Providers Care Home Aid Name Role Phone Marsha Turner MD Primary Care Provider +1- [phone] Encounter Details Date Type Department Care Team (Latest Contact Info) Description 03/02/2008 Outpatient [facility] [address] [facility] [address] [place] [address] Aliyah Lange, PA [address] [place] [address] Headache; Cervicalgia; Spinal Stenosis in Cervical Region; Cervical Spondylosis without Myelopathy Social History Tobacco Use Types Packs/Day Years Used Date Smoking Tobacco: Never Assessed Sex and Gender Information Value Date Recorded Sex Assigned at Not on file 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 - Dictated By: Nolan Lael M.D. Electronically Signed By: Nolna Leal M.D. Date Signed: 03/06/08 [facility] Aliyah [facility] ORDERABLES Final Result documented in this encounter Visit Diagnoses Diagnosis Headache(784.0) Headache Cervicalgia Spinal stenosis in cervical region Cervical spondylosis without myelopathy documented in this encounter Care Teams Home Aid Relationship Specialty Start Date End Date Marsha Turner MD [address] [place] [address] PCP - General Internal Medicine 05/31/12 documented as of this encounter
--- OUTSIDE RECORDS SUMMARY | 2025-01-04 06:30 | XMS_ITS | Encounter Summary ---
Author Organization [facility] Address [address] [place] [address] Care Team Providers Care Advertising Strategist Name Role Phone Marsha Turner MD Primary Care Provider +1- [phone] Encounter Details Date Type Department Care Team (Late st Contact Info) Description 12/22/2007 Outpatient Historical [facility] [address] [place] [address] Kamar Leach MD NO ADDRESS ON FILE Social History Tobacco Use Types Packs/Day Years Used Date Smoking Tobacco: Never Assessed Sex and Gender Information Value Date Recorded Sex Assigned at Not on file 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
--- OUTSIDE RECORDS SUMMARY | 2025-01-04 06:30 | XMS_ITS | Encounter Summary ---
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
--- OUTSIDE RECORDS SUMMARY | 2025-01-04 06:30 | XMS_ITS | Encounter Summary ---
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
--- OUTSIDE RECORDS SUMMARY | 2025-01-04 06:30 | XMS_ITS | Encounter Summary ---
Author Organization [facility] Address [address] [place] [address] Care Team Providers Care Manager Mechanical Name Role Phone Marsha Turner MD Primary Care Provider +1- [phone] Encounter Details Date Type Department Care Team (Late st Contact Info) Description 01/03/2008 Outpatient Historical HIS IN BED Dee Casillas MD [address] [address] Social History Tobacco Use Types Packs/Day Years Used Date Smoking Tobacco: Never Assessed Sex and Gender Information Value Date Recorded Sex Assigned at Not on file Legal Sex Male 6:16 AM PUMPER GAUGER Gender Identity Not on file Sexual Orientation Not on file documented as of this encounter Plan of Treatment Not on file documented as of this encounter Procedures Procedure Name Priority Date/Time Associated Diagnosis Comments CBC WITH DIFFERENTIAL Routine 01/26/2008 4:13 AM PUMPER GAUGER COMPREHENSIVE METABOLIC PANEL Routine 01/26/2008 4:13 AM PUMPER GAUGER CBC WITH DIFFERENTIAL Routine 01/25/2008 3:17 AM PUMPER GAUGER COMPREHENSIVE METABOLIC PANEL Routine 01/25/2008 3:17 AM PUMPER GAUGER POC GLUCOSE Routine 01/25/2008 12:12 AM PUMPER GAUGER POC GLUCOSE Routine 01/24/2008 7:55 PM PUMPER GAUGER XR FLUORO GREATER THAN 1 HOUR Routine 01/24/2008 4:26 PM PUMPER GAUGER HEMOGLOBIN AND HEMATOCRIT Stat 01/24/2008 3:06 PM PUMPER GAUGER ABORH TYPING Stat 01/24/2008 9:50 AM PUMPER GAUGER TYPE AND CROSSMATCH Stat 01/24/2008 9 :50 AM PUMPER GAUGER BLOOD BANK ANTIBODY SCREEN Stat 01/24/2008 9:50 AM PUMPER GAUGER documented in this encounter Results * (ABNORMAL) COMPREHENSIVE METABOLIC PANEL (01/26/2008 4:13 AM PUMPER GAUGER) ALKALINE PHOSPHATASE 44 25 - 100 U/L [facility] CHLORIDE 108 95 - 110 mEq/L [facility] OSMOLALITY, CALCULATED 281 275 - 295 mOsm/Kg [facility] GLOBULIN (CALC) 2.1(L) 2.4 - 3.9 g/dL [facility] TOTAL PROTEIN 5.1(L) 6.3 - 8.2 g/dL [facility] SODIUM 137 136 - 145 mEq/L [facility] BILIRUBIN TOTAL 0.4 0.3 - 1.2 mg/dL [facility] CO2 26 22 - 32 mmol/l [facility] BUN 7(L) 9 - 20 mg/dL [facility] AST 22 8 - 33 U/L [facility] ALBUMIN/GLOBULIN RATIO 1.4 1.0 - 2.3 [facility] POTASSIUM 3.9 3.5 - 5.0 mEq/L [facility] ANION GAP 7(L) 9 - 20 mEq/L [facility] ALBUMIN 3.0(L) 3.5 - 5.0 g/dL [facility] CREATININE 0.6(L) 0.7 - 1.5 mg/dL [facility] ALT 13 4 - 36 IU/L [facility] CALCIUM 8.1(L) 8.4 - 10.5 mg/dL [facility] GLUCOSE 113(H) 70 - 110 mg/dL [facility] Blood specimen (specimen) 01/26/2008 4:13 AM PUMPER GAUGER 01/26/2008 4:49 AM PUMPER GAUGER us Dee Casillas MD CHEMISTRY ORDERABLES Final Resul t Performing Organization Address City/State/[facility] Co de Phone Number INTERFACE SYSTEM Refer to clinic/hospital department [facility] CLIA# [id number] [address] [place] [address] * (ABNORMAL) CBC WITH DIFFERENTIAL (01/26/2008 4:13 AM PUMPER GAUGER) WBC 5.4 4.8 - 10.8 K/ul [facility] MCH 29.9 27.0 - 34.0 pg [facility] NEUTROPHIL ABSOLUTE 4.0 2.0 - 8.0 K/ul [facility] NEUTROPHILS 72.9 42.2 - 75.2 % [facility] HEMATOCRIT 28.4(L) 41.0 - 53.0 % [facility] EOSINOPHILS 1.3 0.0 - 7.0 % [facility] PLATELETS 187 140 - 440 K/ul [facility] EOSINOPHIL ABSOLUTE 0.1 0.0 - 0.7 K/ul [facility] RBC 3.14(L) 4.60 - 6.20 Mil/ul [facility] LYMPHOCYTES 13.6(L) 24.0 - 44.0 % [facility] MCHC 33.1 30.0 - 35.0 g/dL [facility] LYMPHOCYTE ABSOLUTE 0.7(L) 1.2 - 4.0 K/ul [facility] MCV 90.4 84.0 - 103.0 Fl [facility] MPV 9.0 8.9 - 12.8 Fl [facility] BASOPHILS ABSOLUTE 0.0 0.0 - 0.2 K/ul [facility] BASOPHILS 0.4 0.0 - 1.0 % [facility] HEMOGLOBIN 9.4(L) 14.0 - 18.0 g/dL [facility] RDW 13.9 11.0 - 14.5 % [facility] MONOCYTE ABSOLUTE 0.6 0.1 - 0.6 K/ul [facility] MONOCYTES 11.8(H) 2.0 - 10.0 % [facility] Blood specimen (specimen) 01/26/2008 4:13 AM PUMPER GAUGER 01/26/2008 4:49 AM PUMPER GAUGER us Dee Casillas MD HEMATOLOGY ORDERABLES Final Resu lt INTERFACE SYSTEM Refer to clinic/hospital department [facility] CLIA# [id number] [address] [place] [address] * (ABNORMAL) COMPREHENSIVE METABOLIC PANEL (01/25/2008 3:17 AM PUMPER GAUGER) CALCIUM 7.7(L) 8.4 - 10.5 mg/dL [facility] CREATININE 0.7 0.7 - 1.5 mg/dL [facility] ALT 18 4 - 36 IU/L [facility] GLUCOSE 127(H) 70 - 110 mg/dL [facility] CHLORIDE 111(H) 95 - 110 mEq/L [facility] OSMOLALITY, CALCULATED 283 275 - 295 mOsm/Kg [facility] ALKALINE PHOSPHATASE 47 25 - 100 U/L [facility] GLOBULIN (CALC) 1.8(L) 2.4 - 3.9 g/dL [facility] SODIUM 138 136 - 145 mEq/L [facility] BILIRUBIN TOTAL 0.4 0.3 - 1.2 mg/dL [facility] TOTAL PROTEIN 4.8(L) 6.3 - 8.2 g/dL [facility] BUN 8(L) 9 - 20 mg/dL [facility] AST 21 8 - 33 U/L [facility] CO2 27 22 - 32 mmol/l [facility] ALBUMIN/GLOBULIN RATIO 1.7 1.0 - 2.3 [facility] ALBUMIN 3.0(L) 3.5 - 5.0 g/dL [facility] POTASSIUM 3.7 3.5 - 5.0 mEq/L [facility] ANION GAP 4(L) 9 - 20 mEq/L [facility] Blood specimen (specimen) 01/25/2008 3:17 AM PUMPER GAUGER 01/25/2008 3:41 AM PUMPER GAUGER us Dee Casillas MD CHEMISTRY ORDERABLES Final Resul t INTERFACE SYSTEM Refer to clinic/hospital department [facility] CLIA# [id number] [address] [place] [address] * (ABNORMAL) CBC WITH DIFFERENTIAL (01/25/2008 3:17 AM PUMPER GAUGER) MCV 90.4 84.0 - 103.0 Fl [facility] MPV 9.0 8.9 - 12.8 Fl [facility] BASOPHILS 0.6 0.0 - 1.0 % [facility] BASOPHILS ABSOLUTE 0.0 0.0 - 0.2 K/ul [facility] HEMOGLOBIN 9.1(L) 14.0 - 18.0 g/dL [facility] RDW 14.2 11.0 - 14.5 % [facility] MONOCYTES 10.1(H) 2.0 - 10.0 % [facility] MONOCYTE ABSOLUTE 0.5 0.1 - 0.6 K/ul [facility] WBC 5.1 4.8 - 10.8 K/ul [facility] MCH 30.2 27.0 - 34.0 pg [facility] NEUTROPHILS 73.7 42.2 - 75.2 % [facility] NEUTROPHIL ABSOLUTE 3.7 2.0 - 8.0 K/ul [facility] HEMATOCRIT 27.2(L) 41.0 - 53.0 % [facility] PLATELETS 179 140 - 440 K/ul [facility] EOSINOPHIL ABSOLUTE 0.0 0.0 - 0.7 K/ul [facility] EOSINOPHILS 0.6 0.0 - 7.0 % [facility] RBC 3.01(L) 4.60 - 6.20 Mil/ul [facility] LYMPHOCYTES 15.0(L) 24.0 - 44.0 % [facility] MCHC 33.5 30.0 - 35.0 g/dL [facility] LYMPHOCYTE ABSOLUTE 0.8(L) 1.2 - 4.0 K/ul [facility] Blood specimen (specimen) 01/25/2008 3:17 AM PUMPER GAUGER 01/25/2008 3:41 AM PUMPER GAUGER Dee Casillas MD HEMATOLOGY ORDERABLES Final Resu lt Performing Organization Address City/[facility] de Phone Number INTERFACE SYSTEM Refer to clinic/hospital department [facility] CLIA# [id number] [address] [place] [address] * (ABNORMAL) POC GLUCOSE (01/25/2008 12:12 AM PUMPER GAUGER) GLUCOSE POC 131(H) 60 - 100 mg/dL [facility] Venous blood specimen (specimen) 01/25/2008 12:12 AM PUMPER GAUGER 01/25/2008 2:51 AM PUMPER GAUGER Dee Casillas MD POINT OF CARE TESTING Final Resu lt Performing Organization Address [facility] Phone Number INTERFACE SYSTEM Refer to clinic/hospital department [facility] CLIA# [id number] [address] [place] [address] * (ABNORMAL) POC GLUCOSE (01/24/2008 7:55 PM PUMPER GAUGER) GLUCOSE POC 129(H) 60 - 100 mg/dL [facility] Venous blood specimen (specimen) 01/24/2008 7:55 PM PUMPER GAUGER 01/25/2008 2:51 AM PUMPER GAUGER Result [facility] us Dee Casillas MD POINT OF CARE TESTING Final Resu lt Performing Organization Address [facility] de Phone Number INTERFACE SYSTEM Refer to clinic/hospital department [facility] CLIA# [id number] [address] [place] [address] * XR FLUORO > 1 HOUR (01/24/2008 4:26 PM PUMPER GAUGER) Anatomical Region Laterality Modality Other 01/24/2008 4:26 PM PUMPER GAUGER Narrative 01/24/2008 4:26 PM PUMPER GAUGER Finalized by interface cleanup utility. No report expected. Procedure Note 03/25/2008 Finalized by interface cleanup utility. No report expected. us Dee Casillas MD DIAGNOSTIC IMAGING ORDERABLES Fi nal Result * (ABNORMAL) HEMOGLOBIN AND HEMATOCRIT (01/24/2008 3:06 PM PUMPER GAUGER) HEMOGLOBIN 9.9(L) 14.0 - 18.0 g/dL [facility] HEMATOCRIT 29.2(L) 41.0 - 53.0 % [facility] Blood specimen (specimen) 01/24/2008 3:06 PM PUMPER GAUGER 01/24/2008 3:06 PM PUMPER GAUGER Result [facility] us Dee Casillas MD HEMATOLOGY ORDERABLES Final Resu lt Performing Organization Address [facility] de Phone Number INTERFACE SYSTEM Refer to clinic/hospital department [facility] CLIA# [id number] [address] [place] [address] * TYPE AND CROSSMATCH (01/24/2008 9:50 AM PUMPER GAUGER) BLOOD BANK PRODUCT INTERFACE SYSTEM Blood specimen (specimen) 01/24/2008 9:50 AM PUMPER GAUGER 01/24/2008 9:53 AM PUMPER GAUGER Result [facility] Dee Casillas MD BLOOD BANK ORDERABLES Final Resu lt Performing Organization Address City/[facility] Co de Phone Number INTERFACE SYSTEM Refer to clinic/hospital department * ANTIBODY SCREEN (01/24/2008 9:50 AM PUMPER GAUGER) ANTIBODY SCREEN Negative [facility] Blood specimen (specimen) 01/24/2008 9:50 AM PUMPER GAUGER 01/24/2008 9:53 AM PUMPER GAUGER Dee Casillas MD BLOOD BANK ORDERABLES Final Resu lt Performing Organization Address [facility] de Phone Number INTERFACE SYSTEM Refer to clinic/hospital department [facility] CLIA# [id number] [address] [place] [address] * ABORH TYPING (01/24/2008 9:50 AM PUMPER GAUGER) ABO/RH TYPE A Positive [facility] Blood specimen (specimen) 01/24/2008 9:50 AM PUMPER GAUGER 01/24/2008 9:53 AM PUMPER GAUGER Dee Casillas MD BLOOD BANK ORDERABLES Final Resu lt Performing Organization Address [facility] de Phone Number INTERFACE SYSTEM Refer to clinic/hospital department [facility] CLIA# [id number] [address] [place] [address] documented in this encounter Visit Diagnoses Not on filedocumented in this encounter Care Teams Manager Mechanical Relationship Specialty Start Date End Date Marsha Turner MD [address] [place] [address] PCP - General Internal Medicine 05/31/12 documented as of this encounter
--- OUTSIDE RECORDS SUMMARY | 2025-01-04 06:30 | XMS_ITS | Encounter Summary ---
Author Organization [facility] Address [address] [place] [address] Care Team Providers Care Clam Bed Laborer Name Role Phone Marsha Turner MD Primary Care Provider +1- [phone] Encounter Details Date Type Department Care Team (Latest Contact Info) Description 12/16/2007 Outpatient Historical HIS RADIOLOGY NEUROP Dee Casillas MD [address] [address] Brachial Neuritis or Radiculitis NOS Social History Tobacco Use Types Packs/Day Years Used Date Smoking Tobacco: Never Assessed Sex and Gender Information Value Date Recorded Sex Assigned at Not on file 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
--- OUTSIDE RECORDS SUMMARY | 2025-01-04 06:30 | XMS_ITS | Clinical Summary ---
Author Organization [facility] Address [address] 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 Gender Identity Not on file Sexual Orientation [...] years Discontinued Medical Devices Implanted Type Area Loss Prevention Auditor Device Identifier Shelf Expiration Date Model / Serial / Lot Vitoss Foam Ba 1.2ml [id number] - Sna Implanted:Qty: 1 on 04/18/2013 Biological N/A: Spine Cervical Anterior LISA- SPINE 10/13/2014 / NA / [id number] [place] C Stand Alone Cage [id number] Implanted:Qty: 1 on 04/18/2013 by John Castillo MD Cage N/A: Spine Cervical Anterior LISA- SPINE 17596917 / LD [id number] / NA Cement Palacos R+G [phone] - Sna Implanted:Qty: 2 on 09/29/2012 Cement Left: Knee SIHRA [employer] INC 01/13/201699-0502-676-01 / NA / NA Hemostatic Gelfoam Powder 1gm [id number] - [id number] Implanted:Qty: 1 on 05/20/2015 by Dee Casillas MD Hemostatic N/A: Spine Thoracic PFIZER- PHARM 10/12/201736873021129 / / [id number] Hemostatic Gelfoam Powder 1gm [id number] - [id number] Implanted:Qty: 1 on 09/14/2017 by Dee Casillas MD Hemostatic N/A: Back PFIZER- PHARM 11/13/2019 [id number] / / [id number] Gel-Flow Nt Implanted:Qty: 1 on 08/12/2018 by Dee Casillas MD Hemostatic N/A: Spine Cervical Anterior PFIZER- PHARMACIA AND UPJOHN I 08/04/2019 / / [id number] Bearing Tib Vng 10mm 79/83mm [id number] - [id number] Implanted:Qty: 1 on 09/29/2012 Knee Left: Knee BIOMET INC 05/12/2017 691521 / / [id number] Comp Fem Vng Ps Sz72.5 Lt 240618 - [id number] Implanted:Qty: 1 on 09/29/2012 Knee Left: Knee BIOMET INC 06/12/2022 958328 / / [id number] Comp Tib Cocr Finned 83mm [id number] - [id number] Implanted:Qty: 1 on 09/29/2012 Knee Left: Knee BIOMET INC 03/14/2022 840141 / / [id number] Standard Patella Implanted:Qty: 1 on 09/29/2012 by Dylon Abreu MD Knee Left: Knee BIOMET- ORTHOPED[employer] INC 07/12/2017 605175 / / [id number] Plate Hybrid Cerv 12mm 42191094 - Sld [id number] Implanted:Qty: 1 on 04/18/2013 Plate N/A: Spine Cervical Anterior LISA- SPINE 36834659 / LD [id number] / NA Issac Lgcy Crv Ti 5.5c846ut 9798902 - [id number] Implanted:Qty: 1 on 09/14/2017 by Dee Casillas MD Issac N/A: Back MEDTRONIC- SOFAMOR DANEK 09/15/2019 0036119 / / [id number] Issac Lgcy Crv Ti 5.9x082xm 6876632 - [id number] Implanted:Qty: 1 on 09/14/2017 by Dee Casillas MD Issac N/A: Back [employer]- SOFAMOR DANEK 09/15/2019 2911046 / / [id number] Issac Std 3.4l800gy 0258667 - [id number] Implanted:Qty: 2 on 08/12/2018 by Dee Casillas MD Issac N/A: Spine Cervical Anterior [employer]- SOFAMOR DANEK 6006865 / [id number] / Screw Rh St Va 4.0x14mm 16189004 - Sld [id number] Implanted:Qty: 2 on 04/18/2013 Screw N/A: Spine Cervical Anterior LISA- SPINE 14442649 / LD [id number] / NA Screw Sd 3.5x10mm 49197098 - Sld [id number] Implanted:Qty: 2 on 04/18/2013 Screw N/A: Spine Cervical Anterior LISA- SPINE 21711612 / LD [id number] / NA Screw Rh Sd Fa 4.0x14mm 94818730 - Sld [id number] Implanted:Qty: 1 on 04/18/2013 Screw N/A: Spine Cervical Anterior LISA- SPINE 03015552 / LD [id number] / NA Screw Rh St Fa 4.0x14mm 26874464 - Sld [id number] Implanted:Qty: 1 on 04/18/2013 Screw N/A: Spine Cervical Anterior LISA- SPINE 80608279 / LD [id number] / NA Screw Legacy Ma 6.5x50mm 43315609 - [id number] Implanted:Qty: 1 on 09/14/2017 by Dee Casillas MD Screw N/A: Back [employer]- SOFAMOR DANEK 52894219 / / [id number] Screw Legacy Ma 6.5x50mm 66064616 - [id number] Implanted:Qty: 1 on 09/14/2017 by Dee Casillas MD Screw N/A: Back [employer]- SOFAMOR DANEK 93109842 / / [id number] Screw Legacy Ma 7.5x50mm 87466798 - [id number] Implanted:Qty: 1 on 09/14/2017 by Dee Casillas MD Screw N/A: Back [employer]- SOFAMOR DANEK 15816967 / / [id number] Screw Legacy Ma 7.5x50mm 42825531 - [id number] Implanted:Qty: 1 on 09/14/2017 by Dee Casillas MD Screw N/A: Back [employer]- SOFAMOR DANEK 41934235 / / [id number] Set Screw Break Off Ti 8585752 - [id number] Implanted:Qty: 1 on 09/14/2017 by Dee Casillas MD Screw N/A: Back [employer]- SOFAMOR DANEK 2775250 / / [id number] Set Screw Break Off Ti 0118954 - [id number] Implanted:Qty: 1 on 09/14/2017 by Dee Casillas MD Screw N/A: Back [employer]- SOFAMOR DANEK 9214925 / / [id number] Set Screw Break Off Ti 2465365 - [id number] Implanted:Qty: 1 on 09/14/2017 by Dee Casillas MD Screw N/A: Back [employer]- SOFAMOR DANEK 6206037 / / [id number] Set Screw Break Off Ti 2801774 - [id number] Implanted:Qty: 1 on 09/14/2017 by Dee Casillas MD Screw N/A: Back [employer]- SOFAMOR DANEK 1477391 / / [id number] Set Screw Break Off Ti 0427577 - [id number] Implanted:Qty: 1 on 09/14/2017 by Dee Casillas MD Screw N/A: Back [employer]- SOFAMOR DANEK 8115233 / / [id number] Set Screw Break Off Ti 8173821 - [id number] Implanted:Qty: 1 on 09/14/2017 by Dee Casillas MD Screw N/A: Back MEDTR[employer]- SOFAMOR DANEK 7014365 / / [id number] Set Screw Break Off Ti 3974881 - [id number] Implanted:Qty: 1 on 09/14/2017 by Dee Casillas MD Screw N/A: Back MEDTR[employer]IC- SOFAMOR DANEK 2919567 / / [id number] Set Screw Break Off Ti 2139411 - [id number] Implanted:Qty: 1 on 09/14/2017 by Dee Casillas MD Screw N/A: Back MEDTRON[employer]- SOFAMOR DANEK 9830613 / / [id number] Infinity Screw Implanted:Qty: 7 on 08/12/2018 by Dee Casillas MD Screw N/A: Spine Cervical Anterior MEDTRONIC- NEUROSURGERY 9124339 / [id number] / Description:PER INVOICE Infinity Screw Implanted:Qty: 2 on 08/12/2018 by Dee Csaillas MD Screw N/A: Spine Cervical Anterior MEDTRONIC- NEUROSURGERY 3891575 / [id number] / Description:PER INVOICE Infinity Screw Implanted:Qty: 2 on 08/12/2018 by Dee Casillas MD Screw N/A: Spine Cervical Anterior [employer]IC- NEUROSURGERY 9618990 / [id number] / Description:PER INVOICE Infinity Set Screws Implanted:Qty: 11 on 08/12/2018 by Dee Casillas MD Screw N/A: Spine Cervical Anterior 0716464 / [id number] / Description:PER INVOICE Spacer As 9m05n11u3g 03935896 - Sld [id number] Implanted:Qty: 1 on 04/18/2013 Spacer N/A: Spine Cervical Anterior LSIA- SPINE 18737737 / LD [id number] / NA Crosslink Lp Mltspn L=1.75-2.15 811-322 - [id number] Implanted:Qty: 1 on 09/14/2017 by Dee Casillas MD Spine N/A: Back MEDTRONIC- SOFAMOR ALVINAEK 09/15/2019 811-322 / / [id number] Description:09/17 inv pricing Putty Bio Dbm 10ml 1942380 - [id number] Implanted:Qty: 1 on 09/14/2017 by Dee Casillas MD Tissue N/A: Back LISA- HOWMEDICA INT INC 05/27/2019 5666785 / / [id number] Putty Bio Dbm 10ml 2838544 - [id number] Implanted:Qty: 1 on 09/14/2017 by Dee Casillas MD Tissue N/A: Back LISA- HOWMEDICA INT INC 05/16/2019 8229323 / / [id number] Readigraft Canc Chips 30ml Can30 14bp - [id number] Implanted:Qty: 1 on 09/14/2017 by Dee Casillas MD Tissue N/A: Back [employer] 08/20/2019 CAN30 14BP / / [id number] Putty Bio Dbm 10ml 6432057 - [id number] Implanted:Qty: 1 on 08/12/2018 by Dee Casillas MD Tissue N/A: Spine Cervical Anterior LISA- HOWMEDICA INT INC 04/13/2020 9798862 / / [id number] Putty Bio Dbm 10ml 9113147 - [id number] Implanted:Qty: 1 on 08/12/2018 by Dee Casillas MD Tissue N/A: Spine Cervical Anterior LISA- HOWMEDICA INT INC 04/13/2020 1868130 / / [id number] Explanted Type Area Loss Prevention Auditor Device Identifier Shelf Expiration Date Model / Serial / Lot Stim Spnl Cord Precision Spectra [id number] - [id number] Implanted:Qty : 1 on 05/20/2015 by Dee Casillas MD Explanted:Qty : 1 on 06/15/2016 by Dee Casillas MD Neuro Right: Spine Thoracic [employer]- NEURO MODULATION 05/02/2017 CT-1132 / / [id number] Infinity Set Screws Explanted:Qty : 2 on 08/12/2018 Screw N/A: Spine Cervical Anterior MED[employer]IC- NEUROSURGERY 1352570 / [id number] / Description:PER INVOICE Cover Edge 32 70cm 4x8 Application Support Administrator Kit [id number] Implanted:Qty : 1 on 05/20/2015 by Dee Casillas MD Explanted:Qty : 1 on 06/15/2016 by Dee Casillas MD N/A: Spine Thoracic [employer] 02/11/2017 / [id number] / [id number] Set Screws X4, Blockers X4, And 2 Rods Explanted:Qty : 1 on 09/14/2017 by Dee Casillas MD N/A: Spine Cervical Anterior Insurance MEDICARE PART A AND B [employer] * Guarantor: KOJO MARINELLI Account Type Relation to Patient Date of Phone Billing Address Personal/Family [address] [place] [address] [facility] Medicare Part D Care Teams Supreme [address] Justice Relationship Specialty Start Date End Date Marsha Turner MD [address] [place] [address] PCP - General 06/12/20
--- OUTSIDE RECORDS SUMMARY | 2025-01-04 06:30 | XMS_ITS | Encounter Summary ---
Author Organization [facility] Address [address] [place] [address] Care Team Providers Care Information And Referral Director Name Role Phone Marsha Turner MD Primary Care Provider [phone]- [phone] Encounter Details Date Type Department Care Team (Latest Contact Info) Description 02/03/2008 Outpatient Historical [facility] [address] [facility] [address] [place] [address] Aliyah Lange, PA [address] [place] [address] Arthrodesis Status; Lumbago; Pain in [...] on file 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 Gender Identity Not on file Sexual Orientation Not on file documented as of this encounter Plan of Treatment Not on file documented as of this encounter Procedures Procedure Name Priority Date/Time Associated Diagnosis Comments XR LUMBAR SPINE 2 OR 3 VW Routine 02/06/2008 10:19 AM [employer] APPRENTICE documented in this encounter Results * XR LUMBAR SPINE 2 OR 3 VW (02/06/2008 10:19 AM [employer] APPRENTICE) Anatomical Region Laterality Modality Spine Other 02/06/2008 10:1 9 AM [employer] APPRENTICE Narrative 02/06/2008 1:09 PM [employer] APPRENTICE Exam: Spine - Lumbar Date/Time of Exam: [...] site documented in this encounter Care Teams Information And Referral Director Relationship Specialty Start Date End Date Marsha Turner MD [address] [place] [address] PCP - General Internal Medicine 05/31/12 documented as of this encounter
--- OUTSIDE RECORDS SUMMARY | 2025-01-04 06:30 | XMS_ITS | Encounter Summary ---
Author Organization [facility] Address [address] [place] [address] Care Team Providers Care Fundraising Specialist Name Role Phone Marsha Turner MD Primary Care Provider +1- [phone] Encounter Details Date Type Department Care Team (Latest Contact Info) Description 08/26/2018 Ancillary Orders [facility] Spine Neurosurgery [address] [place] [address] Aliyah Lange, PA [address] [place] [address] Status post lumbar spinal fusion Social History Tobacco Use Types Packs/Day Years Used Date Smoking Tobacco: Never Smokeless Tobacco: Never Alcohol Use Standard Drinks/Week Comments No 0 (1 standard drink = 0.6 oz pur e alcohol) Sex and Gender Information Value Date Recorded Sex Assigned at Not on file 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 IMPRESSION: 1. Interval posterior fusion. [id number] Narrative Procedure Note Chang Rai MD - [...] skin sean. IMPRESSION: 1. Interval posterior fusion. [id number] Aliyah [facility] ORDERABLES Final Result documented in this encounter Visit Diagnoses Diagnosis Status post lumbar spinal fusion Arthrodesis status Status post lumbar spinal fusion Arthrodesis status documented in this encounter Care Teams Fundraising Specialist Relationship Specialty Start Date End Date Marsha Turner MD [address] [place] [address] PCP - General Internal Medicine 05/31/12 documented as of this encounter
--- OUTSIDE RECORDS SUMMARY | 2025-01-04 06:30 | XMS_ITS | Encounter Summary ---
Author Organization [facility] Address [address] [place] [address] Care Team Providers Care Pt Sitter Name Role Phone Marsha Turner MD Primary Care Provider +1- [phone] Encounter Details Date Type Department Care Team (Late st Contact Info) Description 01/27/2007 Outpatient Historical [facility] Dermatology- [address] [place] 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
--- OUTSIDE RECORDS SUMMARY | 2025-01-04 06:30 | XMS_ITS | Encounter Summary ---
Author Organization [facility] Address [address] [place] [address] Care Team Providers Care Catalog Library Assistant Name Role Phone Marsha Turner MD Primary Care Provider +1- [phone] Encounter Details Date Type Department Care Team (Late st Contact Info) Description 07/25/2007 Outpatient [facility] [address] [place] [address] [facility] [address] [place] [address] Dequan Tellez MD NO ADDRESS ON FILE Unilat Ing Hernia Social History Tobacco Use Types Packs/Day Years Used Date Smoking Tobacco: Never Assessed Sex and Gender Information Value Date Recorded Sex Assigned at Not on file 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
--- OUTSIDE RECORDS SUMMARY | 2025-01-04 06:30 | XMS_ITS | Encounter Summary ---
Author Organization [facility] Address [address] [place] [address] Care Team Providers Care Grave Cleaner Name Role Phone Marsha Turner MD Primary Care Provider +1- [phone] Encounter Details Date Type Department Care Team (Late st Contact Info) Description 02/06/2008 Outpatient Historical [facility] DEFAULT DEPARTMENT Dee Casillas MD [address] [phone] Social History Tobacco Use Types Packs/Day Years Used Date Smoking Tobacco: Never Assessed Sex and Gender Information Value Date Recorded Sex Assigned at Not on file 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
--- OUTSIDE RECORDS SUMMARY | 2025-01-04 06:30 | XMS_ITS | Encounter Summary ---
Author Organization [facility] Address [address] [place] [address] Care Team Providers Care Piano Regulator Name Role Phone Marsha Turner MD Primary Care Provider +1- [phone] Reason for Referral * Outpatient Services (Routine) - Closed Specialty Diagnoses / Procedures Referred By Te caceres Referred To Contact Diagnoses Disorders of sacrum Procedures XR FLUORO NEEDLE GUIDANCE Kamar Leach MD Referral ID Status Reason Start Date Expiration Date Visits Re quested Visits Authorized [id number] Closed 06/11/2014 07/12/2015 1 1 Encounter Details Date Type Department Care Team (Late st Contact Info) Description 06/11/2014 Ancillary Orders [facility] Pain Management Procedures [facility] [address] [place] [address] Kamar Leach MD NO ADDRESS ON FILE Disorders of sacrum (Primary Dx) Social History Tobacco Use Types Packs/Day Years Used Date Smoking Tobacco: Never Smokeless Tobacco: Never Alcohol Use Standard Drinks/Week Comments No 0 (1 standard drink = 0.6 oz pur e alcohol) Sex and Gender Information Value Date Recorded Sex Assigned at Not on file 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
--- OUTSIDE RECORDS SUMMARY | 2025-01-04 06:30 | XMS_ITS | Encounter Summary ---
Author Organization [facility] Address [address] [place] [address] Care Team Providers Care Water Technician Name Role Phone Marsha Turner MD Primary Care Provider +1- [phone] Encounter Details Date Type Department Care Team (Late st Contact Info) Description 08/30/2007 Outpatient Historical [facility] [address] [address] [place] [address] Thomas Mack MD NO ADDRESS ON FILE Malignant Neoplasm of Prostate (CMS/HCC) Social History Tobacco Use Types Packs/Day Years Used Date Smoking Tobacco: Never Assessed Sex and Gender Information Value Date Recorded Sex Assigned at Not on file 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
--- OUTSIDE RECORDS SUMMARY | 2025-01-04 06:30 | XMS_ITS | Encounter Summary ---
Author Organization [facility] Address [address] [place] [address] Care Team Providers Care Rail Bonder Name Role Phone Marsha Turner MD Primary Care Provider +1- [phone] Encounter Details Date Type Department Care Team (Late st Contact Info) Description 01/02/2008 Outpatient Historical [facility] DEFAULT DEPARTMENT Dee Casillas MD [address] [phone] Social History Tobacco Use Types Packs/Day Years Used Date Smoking Tobacco: Never Assessed Sex and Gender Information Value Date Recorded Sex Assigned at Not on file 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
--- OUTSIDE RECORDS SUMMARY | 2025-01-04 06:30 | XMS_ITS | Encounter Summary ---
Author Organization [facility] Address [address] [place] [address] Care Team Providers Care Plastic Manager Name Role Phone Marsha Turner MD Primary Care Provider +1- [phone] Encounter Details Date Type Department Care Team (Late st Contact Info) Description 11/30/2007 Outpatient Historical [facility] Pain Management Procedures [address] 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 Date Signed: 12/08/07 [facility] Procedure Note Florentino Lovell W - 12/08/2007 Views of the lumbar spine with flexion and extension were obtained. Thereis a posterior fusion L4, L5 and S1. Hardware is intact. The neutral, flexion and extension views showthat alignment is within normal limits. Mild to moderate degenerative disc disease is also noted [id number]. - Dictated By: Florentino Lovell M.D. Electronically [...] agent documented in this encounter Care Teams Plastic Manager Relationship Specialty Start Date End Date Marsha Turner MD [address] [place] [address] PCP - General Internal Medicine 05/31/12 documented as of this encounter
--- OUTSIDE RECORDS SUMMARY | 2025-01-04 06:30 | XMS_ITS | Encounter Summary ---
Author Organization [facility] Address [address] [place] [address] Care Team Providers Care Bookie Name Role Phone Marsha Turner MD Primary Care Provider +1- [phone] Encounter Details Date Type Department Care Team (Late st Contact Info) Description 12/08/2007 Outpatient Historical [facility] DEFAULT DEPARTMENT Dee Casillas MD [address] [phone] Social History Tobacco Use Types Packs/Day Years Used Date Smoking Tobacco: Never Assessed Sex and Gender Information Value Date Recorded Sex Assigned at Not on file 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
--- OUTSIDE RECORDS SUMMARY | 2025-01-04 06:30 | XMS_ITS | Encounter Summary ---
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
--- OUTSIDE RECORDS SUMMARY | 2025-01-04 06:31 | XMS_ITS | Encounter Summary ---
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) Social History Tobacco Use Types Packs/Day Years Used Date Smoking Tobacco: Never Assessed Sex and Gender Information Value Date Recorded Sex Assigned at Not on file 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
--- OUTSIDE RECORDS SUMMARY | 2025-01-04 06:31 | XMS_ITS | Encounter Summary ---
Author Organization [facility] Address [address] [place] [address] Care Team Providers Care Salvage Inspector Name Role Phone Marsha Turner MD Primary Care Provider +1- [phone] Encounter Details Date Type Department Care Team (Latest Contact Info) Description 06/18/2006 Outpatient Historical [facility] Endoscopy [address] 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
--- OUTSIDE RECORDS SUMMARY | 2025-01-04 06:31 | XMS_ITS | Encounter Summary ---
Author Organization [facility] Address [address] [place] [address] Care Team Providers Care Perinatal Educator Name Role Phone Marsha Turner MD Primary Care Provider +1- [phone] Encounter Details Date Type Department Care Team (Late st Contact Info) Description 06/14/2006 Outpatient Historical [facility] [address] 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
--- OUTSIDE RECORDS SUMMARY | 2025-01-04 06:31 | XMS_ITS | Encounter Summary ---
Author Organization [facility] Address [address] [place] [address] Care Team Providers Care Territory Sales Manager Name Role Phone Marsha Turner MD Primary Care Provider +1- [phone] Encounter Details Date Type Department Care Team (Late st Contact Info) Description 06/14/2006 Outpatient Historical [facility] Imaging Services-[place] [address] [place] [id number] Thomas Mack MD NO ADDRESS ON FILE Slow Urinary Stream (Primary Dx) Social History Tobacco Use Types Packs/Day Years Used Date Smoking Tobacco: Never Assessed Sex and Gender Information Value Date Recorded Sex Assigned at Not on file Legal Sex Male 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
--- OUTSIDE RECORDS SUMMARY | 2025-01-04 06:31 | XMS_ITS | Encounter Summary ---
Author Organization [facility] Address [address] 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
--- OUTSIDE RECORDS SUMMARY | 2025-01-04 06:31 | XMS_ITS | Encounter Summary ---
Author Organization [facility] Address [address] [place] [address] Care Team Providers Care Vice President Of Software Development Name Role Phone Marsha Turner MD Primary Care Provider +1- [phone] Encounter Details Date Type Department Care Team (Late st Contact Info) Description 09/23/2005 Outpatient Historical [facility] Imaging Services-[place] Jarad [place] [address] [place] [address] Thomas Mack MD NO ADDRESS ON FILE Renal Colic (Primary Dx) Social History Tobacco Use Types Packs/Day Years Used Date Smoking Tobacco: Never Assessed Sex and Gender Information Value Date Recorded Sex Assigned at Not on file Legal Sex Male 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
--- OUTSIDE RECORDS SUMMARY | 2025-01-04 06:31 | XMS_ITS | Encounter Summary ---
Author Organization [facility] Address [address] [place] [address] Care Team Providers Care Top Printing Press Operator Name Role Phone Marsha Turner MD Primary Care Provider +1- [phone] Encounter Details Date Type Department Care Team (Late st Contact Info) Description 09/26/2004 Outpatient Historical [facility] Urology- [address]tr[address], 3[address] [place] [address] Thomas Mack MD NO ADDRESS ON FILE Malig emmett prostate (Primary Dx) Social History Tobacco Use Types Packs/Day Years Used Date Smoking Tobacco: Never Assessed Sex and Gender Information Value Date Recorded Sex Assigned at Not on file Legal Sex Male 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
--- OUTSIDE RECORDS SUMMARY | 2025-01-04 06:31 | XMS_ITS | Encounter Summary ---
Author Organization [facility] Address [address] [place] [address] Care Team Providers Care Charging Car Operator Name Role Phone Marsha Turner MD Primary Care Provider +1- [phone] Encounter Details Date Type Department Care Team (Late st Contact Info) Description 03/05/2008 Outpatient Historical [facility] Dee Casillas MD [address] [address] Social History Tobacco Use Types Packs/Day Years Used Date Smoking Tobacco: Never Assessed Sex and Gender Information Value Date Recorded Sex Assigned at Not on file Legal Sex Male 6:16 AM IMPLANT COORDINATOR Gender Identity Not on file Sexual Orientation Not on file documented as of this encounter Plan of Treatment Not on file documented as of this encounter Procedures Procedure Name Priority Date/Time Associated Diagnosis Comments POC GLUCOSE Routine 03/16/2008 1:37 PM IMPLANT COORDINATOR POC GLUCOSE Routine 03/16/2008 9:28 AM IMPLANT COORDINATOR documented in this encounter Results * (ABNORMAL) POC GLUCOSE (03/16/2008 1:37 PM IMPLANT COORDINATOR) GLUCOSE POC 115(H) 60 - 100 mg/dL [facility] Comment:POC Glucose - waived testing: CLIA #[id number] Venous blood specimen (specimen) 03/16/2008 1:37 PM IMPLANT COORDINATOR 03/17/2008 2:21 AM IMPLANT COORDINATOR Dee Casillas MD POINT OF CARE TESTING Final Resu lt Performing Organization Address [facility] de Phone Number INTERFACE SYSTEM Refer to clinic/hospital department [facility] CLIA# [id number] [address] [place] [address] * (ABNORMAL) POC GLUCOSE (03/16/2008 9:28 AM IMPLANT COORDINATOR) GLUCOSE POC 132(H) 60 - 100 mg/dL [facility] Comment:POC Glucose - waived testing: CLIA #[id number] Venous blood specimen (specimen) 03/16/2008 9:28 AM IMPLANT COORDINATOR 03/17/2008 1:24 AM IMPLANT COORDINATOR Dee Casillas MD POINT OF CARE TESTING Final Resu lt Performing Organization Address [facility] de Phone Number INTERFACE SYSTEM Refer to clinic/hospital department [facility] CLIA# [id number] [address] [place] [address] documented in this encounter Visit Diagnoses Not on filedocumented in this encounter Care Teams Charging Car Operator Relationship Specialty Start Date End Date Marsha Turner MD [address] [place] [address] PCP - General Internal Medicine 05/31/12 documented as of this encounter
--- OUTSIDE RECORDS SUMMARY | 2025-01-04 06:31 | XMS_ITS | Encounter Summary ---
Author Organization [facility] Address [address] [place] [address] Care Team Providers Care Retail Center Receptionist Name Role Phone Marsha Turner MD Primary Care Provider +1- [phone] Encounter Details Date Type Department Care Team (Latest Contact Info) Description 06/25/2006 Outpatient Historical [facility] Operating Room [address] [place] [phone] Abilio Bagley MD [address] [place] [address] Abdominal Pain, Right Upper Quadrant (Primary Dx) Social History Tobacco Use Types Packs/Day Years Used Date Smoking Tobacco: Never Assessed Sex and Gender Information Value Date Recorded Sex Assigned at Not on file Legal Sex Male 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
--- OUTSIDE RECORDS SUMMARY | 2025-01-04 06:31 | XMS_ITS | Encounter Summary ---
Author Organization [facility] Address [address] [place] [address] Care Team Providers Care Demand Generator Manager Name Role Phone Marsha Turner MD Primary Care Provider +1- [phone] Encounter Details Date Type Department Care Team (Late st Contact Info) Description 11/05/2005 Outpatient Historical [facility] [address] [place] [address] Thomas Mack MD NO ADDRESS ON FILE Malig Thierno Prostate (Primary Dx); Impotence of Organic Origin Social History Tobacco Use Types Packs/Day Years Used Date Smoking Tobacco: Never Assessed Sex and Gender Information Value Date Recorded Sex Assigned at Not on file Legal Sex Male 6:16 AM BACK WINDER Gender Identity Not on file Sexual Orientation Not on file documented as of this encounter Plan of Treatment Not on file documented as of this encounter Visit Diagnoses Diagnosis Malig thierno prostate- Primary Malignant neoplasm of prostate Impotence of organic origin documented in this encounter Care Teams Demand Generator Manager Relationship Specialty Start Date End Date Marsha Turner MD [address] [place], [place] [address] PCP - General Internal Medicine 05/31/12 documented as of this encounter
--- OUTSIDE RECORDS SUMMARY | 2025-01-04 06:31 | XMS_ITS | Encounter Summary ---
Author Organization [facility] Address [address] [place] [address] Care Team Providers Care Pharmacy Aide Name Role Phone Marsha Turner MD Primary Care Provider +1- [phone] Encounter Details Date Type Department Care Team (Latest Contact Info) Description 05/14/2005 Outpatient Historical [facility] [place] [address] [place] [address] Abilio Bagley MD [address] [place] [address] ESOPHAGEAL REFLUX (Primary Dx) Social History Tobacco Use Types Packs/Day Years Used Date Smoking Tobacco: Never Assessed Sex and Gender Information Value Date Recorded Sex Assigned at Not on file Legal Sex Male 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
--- OUTSIDE RECORDS SUMMARY | 2025-01-04 06:31 | XMS_ITS | Encounter Summary ---
Author Organization [facility] Address [address] [place] [address] Care Team Providers Care Dental Equipment Repairer Name Role Phone Marsha Turner MD Primary Care Provider +1- [phone] Encounter Details Date Type Department Care Team (Latest Contact Info) Description 07/12/2006 Outpatient [facility] Gastroenterology[address] [place] [address] Abilio Bagley MD [address] [place] [address] Spasm Sphincter of Oddi (Primary Dx) Social History Tobacco Use Types Packs/Day Years Used Date Smoking Tobacco: Never Assessed Sex and Gender Information Value Date Recorded Sex Assigned at Not on file Legal Sex Male 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
--- OUTSIDE RECORDS SUMMARY | 2025-01-04 06:31 | XMS_ITS | Encounter Summary ---
Author Organization [facility] Address [address] [place] [address] Care Team Providers Care Pilates Instructor Name Role Phone Marsha Turner MD Primary Care Provider +1- [phone] Encounter Details Date Type Department Care Team (Late st Contact Info) Description 02/26/2005 Outpatient Historical [facility] Urology- [address]tr[address], 3[address] [place] [address] Thomas Mack MD NO ADDRESS ON FILE Malig emmett prostate (Primary Dx) Social History Tobacco Use Types Packs/Day Years Used Date Smoking Tobacco: Never Assessed Sex and Gender Information Value Date Recorded Sex Assigned at Not on file Legal Sex Male 6:16 AM RETAIL PHARMACY 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
--- OUTSIDE RECORDS SUMMARY | 2025-01-04 06:31 | XMS_ITS | Encounter Summary ---
Author Organization [facility] Address [address] [place] [address] Care Team Providers Care Textile Colorist Formulator Name Role Phone Marsha Turner MD Primary Care Provider +1- [phone] Encounter Details Date Type Department Care Team (Latest Contact Info) Description 10/05/2000 Outpatient Historical [facility] [address] [place] [address] Lakhwinder Mahmood MD Nonspecific abnormal finding in stool contents (Primary Dx) Social History Tobacco Use Types Packs/Day Years Used Date Smoking Tobacco: Never Assessed Sex and Gender Information Value Date Recorded Sex Assigned at Not on file Legal Sex Male 6:16 AM HEMATOLOGY NURSE EDUCATOR Gender Identity Not on file Sexual Orientation Not on file documented as of this encounter Plan of Treatment Not on file documented as of this encounter Visit Diagnoses Diagnosis Nonspecific abnormal finding in stool contents- Primary documented in this encounter Care Teams Textile Colorist Formulator Relationship Specialty Start Date End Date Marsha Turner MD [address] [place] [address] PCP - General Internal Medicine 05/31/12 documented as of this encounter
--- OUTSIDE RECORDS SUMMARY | 2025-01-04 06:31 | XMS_ITS | Encounter Summary ---
Author Organization [facility] Address [address] [place] [address] Care Team Providers Care Service Unit Operator Name Role Phone Marsha Turner MD Primary Care Provider +1- [phone] Encounter Details Date Type Department Care Team (Late st Contact Info) Description 03/05/2008 Outpatient Historical [facility] [address] [address] [address] [place] [address] Dee Casillas MD [address] [address] Social History Tobacco Use Types Packs/Day Years Used Date Smoking Tobacco: Never Assessed Sex and Gender Information Value Date Recorded Sex Assigned at Not on file Legal Sex Male 6:16 AM DIE REPAIRER FORGING Gender Identity Not on file Sexual Orientation Not on file documented as of this encounter Plan of Treatment Not on file documented as of this encounter Procedures Procedure Name Priority Date/Time Associated Diagnosis Comments XR CHEST PA OR AP 1 VW Routine 8 5:03 PM DIE REPAIRER FORGING URINALYSIS W/REFLEX MICROSCOPIC Stat 03/05/2008 4:54 PM DIE REPAIRER FORGING ABORH TYPING Stat 03/05/2008 4:20 PM DIE REPAIRER FORGING CBC WITH DIFFERENTIAL Stat 03/05/2008 4:20 PM DIE REPAIRER FORGING PROTIME-INR Stat 03/05/2008 4:20 PM DIE REPAIRER FORGING BLOOD BANK ANTIBODY SCREEN Stat 03/05/2008 4:20 PM DIE REPAIRER FORGING COMPREHENSIVE METABOLIC PANEL Stat 03/05/2008 4:20 PM DIE REPAIRER FORGING documented in this encounter Results * XR CHEST PA OR AP (03/05/2008 5:03 PM DIE REPAIRER FORGING) Anatomical Region Laterality Modality Chest Other 03/05/2008 5:03 PM DIE REPAIRER FORGING Narrative 03/06/2008 3:36 PM DIE REPAIRER FORGING Exam: Chest - PA Date/Time of Exam: [...] Result * (ABNORMAL) URINALYSIS (03/05/2008 4:54 PM DIE REPAIRER FORGING) LEUKOCYTE ESTERASE UA NEGATIVE NEGATIVE [facility] KETONES UA NEGATIVE NEGATIVE [facility] MICRO EXAM No No [facility] COLOR UA Yellow Straw [facility] PROTEIN UA NEGATIVE NEGATIVE [facility] BLOOD UA NEGATIVE NEGATIVE [facility] NITRITE UA NEGATIVE NEGATIVE [facility] UROBILINOGEN UA 1.0(A) 0.2 [facility] CLARITY UA Clear Clear [facility] SPECIFIC GRAVITY UA 1.010 <=1.005 [facility] GLUCOSE UA NEGATIVE NEGATIVE [facility] PH UA 7.0 5.0 - 9.0 [facility] BILIRUBIN UA NEGATIVE NEGATIVE [facility] Urine specimen (specimen) 03/05/2008 4:54 PM DIE REPAIRER FORGING 03/05/2008 4:54 PM DIE REPAIRER FORGING us Dee Casillas MD URINE ORDERABLES Final Result Performing Organization Address City/State/[facility] Co de Phone Number INTERFACE SYSTEM Refer to clinic/hospital department [facility] CLIA# [id number] [address] [place] [address] * (ABNORMAL) CBC WITH DIFFERENTIAL (03/05/2008 4:20 PM DIE REPAIRER FORGING) HEMOGLOBIN 11.6(L) 14.0 - 18.0 g/dL [facility] LYMPHOCYTES 15.1(L) 24.0 - 44.0 % [facility] LYMPHOCYTE ABSOLUTE 1.0(L) 1.2 - 4.0 K/ul [facility] WBC 6.4 4.8 - 10.8 K/ul [facility] MCH 30.4 27.0 - 34.0 pg [facility] MPV 9.1 8.9 - 12.8 Fl [facility] BASOPHILS ABSOLUTE 0.0 0.0 - 0.2 K/ul [facility] BASOPHILS 0.5 0.0 - 1.0 % [facility] MCHC 33.8 30.0 - 35.0 g/dL [facility] HEMATOCRIT 34.3(L) 41.0 - 53.0 % [facility] RDW 13.9 11.0 - 14.5 % [facility] MONOCYTE ABSOLUTE 0.6 0.1 - 0.6 K/ul [facility] MONOCYTES 9.6 2.0 - 10.0 % [facility] RBC 3.82(L) 4.60 - 6.20 Mil/ul [facility] NEUTROPHIL ABSOLUTE 4.6 2.0 - 8.0 K/ul [facility] NEUTROPHILS 72.9 42.2 - 75.2 % [facility] MCV 89.8 84.0 - 103.0 Fl [facility] EOSINOPHILS 1.9 0.0 - 7.0 % [facility] PLATELETS 221 140 - 440 K/ul [facility] EOSINOPHIL ABSOLUTE 0.1 0.0 - 0.7 K/ul [facility] Blood specimen (specimen) 03/05/2008 4:20 PM DIE REPAIRER FORGING 03/05/2008 4:30 PM DIE REPAIRER FORGING us Dee Casillas MD HEMATOLOGY ORDERABLES Final Resu lt INTERFACE SYSTEM Refer to clinic/hospital department [facility]# [id number] [address] [place] [address] * PROTIME-INR (03/05/2008 4:20 PM DIE REPAIRER FORGING) INR 1.0 [facility] Comment: Expected Values for INR: [...] available from the pharmacy Nichelle Mike [phone] PROTIME 14.0 12.8 - 15.8 Secs [facility] Comment:As of 2007 not e change in normal range. Blood specimen (specimen) 03/05/2008 4:20 PM DIE REPAIRER FORGING 03/05/2008 4:30 PM DIE REPAIRER FORGING us Dee Casillas MD HEMATOLOGY ORDERABLES Final Resu lt Performing Organization Address [facility] Phone Number INTERFACE SYSTEM Refer to clinic/hospital department [facility] CLIA# [id number] [address] [place] [address] * ANTIBODY SCREEN (03/05/2008 4:20 PM DIE REPAIRER FORGING) ANTIBODY SCREEN Negative [facility] Blood specimen (specimen) 03/05/2008 4:20 PM DIE REPAIRER FORGING 03/05/2008 4:30 PM DIE REPAIRER FORGING Dee Casillas MD BLOOD BANK ORDERABLES Final Resu lt Performing Organization Address [facility] Phone Number INTERFACE SYSTEM Refer to clinic/hospital department [facility] CLIA# [id number] [address] [place] [address] * ABORH TYPING (03/05/2008 4:20 PM DIE REPAIRER FORGING) ABO/RH TYPE A Positive [facility] Blood specimen (specimen) 03/05/2008 4:20 PM DIE REPAIRER FORGING 03/05/2008 4:30 PM DIE REPAIRER FORGING Dee Casillas MD BLOOD BANK ORDERABLES Final Resu lt Performing Organization Address [facility] Phone Number INTERFACE SYSTEM Refer to clinic/[facility] department [facility] CLIA# [id number] [address] [place] [address] * (ABNORMAL) COMPREHENSIVE METABOLIC PANEL (03/05/2008 4:20 PM DIE REPAIRER FORGING) ALBUMIN 4.4 3.5 - 5.0 g/dL [facility] POTASSIUM 3.9 3.5 - 5.0 mEq/L [facility] GLOBULIN (CALC) 2.6 2.4 - 3.9 g/dL [facility] CREATININE 0.9 0.7 - 1.5 mg/dL [facility] CALCIUM 9.2 8.4 - 10.5 mg/dL [facility] OSMOLALITY, CALCULATED 289 275 - 295 mOsm/Kg [facility] ALT 17 4 - 36 IU/L [facility] GLUCOSE 118(H) 70 - 110 mg/dL [facility] CHLORIDE 108 95 - 110 mEq/L [facility] ALBUMIN/GLOBULIN RATIO 1.7 1.0 - 2.3 [facility] ALKALINE PHOSPHATASE 71 25 - 100 U/L [facility] SODIUM 141 136 - 145 mEq/L [facility] BILIRUBIN TOTAL 0.3 0.3 - 1.2 mg/dL [facility] TOTAL PROTEIN 7.0 6.3 - 8.2 g/dL [facility] BUN 9 9 - 20 mg/dL [facility] AST 16 8 - 33 U/L [facility] CO2 27 22 - 32 mmol/l [facility] ANION GAP 10 9 - 20 mEq/L [facility] Blood specimen (specimen) 03/05/2008 4:20 PM DIE REPAIRER FORGING 03/05/2008 4:30 PM DIE REPAIRER FORGING us Dee Casillas MD CHEMISTRY ORDERABLES Final Resul t INTERFACE SYSTEM Refer to clinic/hospital department [facility] CLIA# [id number] [facility] [place] [address] documented in this encounter Visit Diagnoses Not on filedocumented in this encounter Care Teams Service Unit Operator Relationship Specialty Start Date End Date Marsha Turner MD [address] [place] [address] PCP - General Internal Medicine 05/31/12 documented as of this encounter
--- OUTSIDE RECORDS SUMMARY | 2025-01-04 06:31 | XMS_ITS | Encounter Summary ---
Author Organization [facility] Address [address] [place] [address] Care Team Providers Care Lithograph Operator Name Role Phone Marsha Turner MD Primary Care Provider +1- [phone] Encounter Details Date Type Department Care Team (Late st Contact Info) Description 06/14/2006 Outpatient Historical [facility] Imaging Services-[place] [address] [place] [address] Thomas Mack MD NO ADDRESS ON FILE Malignant Neoplasm of Prostate (CMS/HCC) (Primary Dx) Social History Tobacco Use Types Packs/Day Years Used Date Smoking Tobacco: Never Assessed Sex and Gender Information Value Date Recorded Sex Assigned at Not on file Legal Sex Male 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
--- OUTSIDE RECORDS SUMMARY | 2025-01-04 06:31 | XMS_ITS | Encounter Summary ---
Author Organization [facility] Address [address] [place] [address] Care Team Providers Care Scrap Picker Name Role Phone Marsha Turner MD Primary Care Provider +1- [phone] Encounter Details Date Type Department Care Team (Late st Contact Info) Description 03/05/2008 Outpatient Historical [facility] DEFAULT DEPARTMENT Dee Casillas MD [address] [address] Social History Tobacco Use Types Packs/Day Years Used Date Smoking Tobacco: Never Assessed Sex and Gender Information Value Date Recorded Sex Assigned at Not on file Legal Sex Male 6:16 AM TAXATION ACCOUNTANT Gender Identity Not on file Sexual Orientation Not on file documented as of this encounter Plan of Treatment Not on file documented as of this encounter Visit Diagnoses Not on filedocumented in this encounter Care Teams Scrap Picker Relationship Specialty Start Date End Date Marsha Turner MD [address] [place] [address] PCP - General Internal Medicine 05/31/12 documented as of this encounter
--- OUTSIDE RECORDS SUMMARY | 2025-01-04 06:31 | XMS_ITS | Encounter Summary ---
Author Organization [facility] Address [address] [place] [address] Care Team Providers Care Senior Accounting Manager Name Role Phone Marsha Turner MD Primary Care Provider +1- [phone] Encounter Details Date Type Department Care Team (Late st Contact Info) Description 09/13/2006 Outpatient Historical [facility] [address] 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
--- OUTSIDE RECORDS SUMMARY | 2025-01-04 06:31 | XMS_ITS | Encounter Summary ---
Author Organization [facility] Address [address] 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
--- OUTSIDE RECORDS SUMMARY | 2025-01-04 06:31 | XMS_ITS | Encounter Summary ---
Author Organization [facility] Address [address] [place] [address] Care Team Providers Care Senior Clinical Research Associate Name Role Phone Marsha Turner MD Primary Care Provider +1- [phone] Encounter Details Date Type Department Care Team (Latest Contact Info) Description 06/25/2006 Outpatient [facility] Gastroenterology[address] [place] [address] Abilio Bagley MD [address] [place] [address] Abdominal Pain, Right Upper Quadrant (Primary Dx); Chronic Pancreatitis (CMS/HCC); Nonspecific Abnormal Results of Liver Function Study Social History Tobacco Use Types Packs/Day Years Used Date Smoking Tobacco: Never Assessed Sex and Gender Information Value Date Recorded Sex Assigned at Not on file Legal Sex Male 6:16 AM STORY EDITOR Gender Identity Not on file Sexual Orientation Not on file documented as of this encounter Plan of Treatment Not on file documented as of this encounter Visit Diagnoses Diagnosis Abdominal pain, right upper quadrant- Primary Chronic pancreatitis (CMS/HCC) Chronic pancreatitis Nonspecific abnormal results of liver function study documented in this encounter Care Teams Senior Clinical Research Associate Relationship Specialty Start Date End Date Marsha Turner MD [address] [place] [address] PCP - General Internal Medicine 05/31/12 documented as of this encounter
--- OUTSIDE RECORDS SUMMARY | 2025-01-04 06:31 | XMS_ITS | Encounter Summary ---
Author Organization [facility] Address [address] [place] [address] Care Team Providers Care Railroad Track Inspector Name Role Phone Marsha Turner MD Primary Care Provider +1- [phone] Encounter Details Date Type Department Care Team (Late st Contact Info) Description 09/23/2005 Outpatient Historical [facility] [place] [address] 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
--- OUTSIDE RECORDS SUMMARY | 2025-01-04 06:31 | XMS_ITS | Encounter Summary ---
Author Organization [facility] Address [address] 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
--- OUTSIDE RECORDS SUMMARY | 2025-01-04 06:31 | XMS_ITS | Encounter Summary ---
Author Organization [facility] Address [address] [place] [address] Care Team Providers Care Web Site Administrator Name Role Phone Marsha Turner MD Primary Care Provider +1- [phone] Encounter Details Date Type Department Care Team (Late st Contact Info) Description 12/12/2007 Outpatient Historical [facility] Pain Management Procedures [address] [place] [id number] Kamar Leach MD NO ADDRESS ON FILE [...] on file Legal Sex Male 6:16 AM POWDERMAN Gender Identity Not on file Sexual Orientation [...] 12/22/2007 1:26 PM CDT Finalized by interface [employer] utility. No report expected. Procedure Note 03/25/2008 Finalized by interface [employer] utility. No report expected. us Kamar Leach MD DIAGNOSTIC IMAGING ORDERAB LES Final Result documented in this encounter Visit Diagnoses Diagnosis Unspecified asthma(493.90) Unspecified asthma Arthropathy, unspecified, site unspecified Diaphragmatic hernia without mention of obstruction or gangrene Personal history of unspecified circulatory disease Unspecified joint replacement by other means Personal history of allergy to analgesic agent documented in this encounter Care Teams Web Site Administrator Relationship Specialty Start Date End Date Marsha Turner MD [address] [place] [address] PCP - General Internal Medicine 05/31/12 documented as of this encounter
--- OUTSIDE RECORDS SUMMARY | 2025-01-04 06:31 | XMS_ITS | Encounter Summary ---
Author Organization [facility] Address [address] [place] [address] Care Team Providers Care Commissary Steward Name Role Phone Marsha Turner MD Primary Care Provider +1- [phone] Encounter Details Date Type Department Care Team (Late st Contact Info) Description 09/23/2005 Outpatient Historical [facility] Services-[facility] Abraham Laura [address] [place] [address] Thomas Mack MD NO ADDRESS ON FILE Bilat Ing Hernia (Primary Dx) Social History Tobacco Use Types Packs/Day Years Used Date Smoking Tobacco: Never Assessed Sex and Gender Information Value Date Recorded Sex Assigned at Not on file Legal 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
--- OUTSIDE RECORDS SUMMARY | 2025-01-04 06:31 | XMS_ITS | Encounter Summary ---
Author Organization [facility] Address [address] [place] [address] Care Team Providers Care Industrial Maintenance Mechanic Name Role Phone Marsha Turner MD Primary Care Provider +1- [phone] Encounter Details Date Type Department Care Team (Latest Contact Info) Description 12/31/2003 Outpatient Historical [facility] Cardiac Foundation Relations Director [address] [place] [address] Hosea Wilson MD [address] [facility] [address] [place] [address] CORON ATHEROSCL [place] CORON VESSEL (Primary Dx) Social History Tobacco Use Types Packs/Day Years Used Date Smoking Tobacco: Never Assessed Sex and Gender Information Value Date Recorded Sex Assigned at Not on file Legal Sex Male 6: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
--- OUTSIDE RECORDS SUMMARY | 2025-01-04 06:31 | XMS_ITS | Encounter Summary ---
Author Organization [facility] Address [address] [place] [address] Care Team Providers Care Locomotive Pipe Fitter Name Role Phone Marsha Turner MD Primary Care Provider +1- [phone] Encounter Details Date Type Department Care Team (Late st Contact Info) Description 03/05/2008 [facility] [address] [facility] [address] [place] [address] Aaron Ayala MD [address] [place] [address] Malig Thierno Skin Face NEC Social History Tobacco Use Types Packs/Day Years Used Date Smoking Tobacco: Never Assessed Sex and Gender Information Value Date Recorded Sex Assigned at Not on file Legal Sex Male 6:16 AM POSTAL TRANSPORTATION CLERK Gender Identity Not on file Sexual Orientation Not on file documented as of this encounter Progress Notes * Elenita Lora - 03/07/2008 8:42 AM CSTQuick Note: Pt's notified of results, adq tx. Recheck 4 months. AL TRANSPORTATION CLERK documented in this encounter Plan of Treatment Not on file documented as of this encounter Procedures Procedure Name Priority Date/Time Associated Diagnosis Comments PATHOLOGY Routine 03/05/2008 1:19 PM POSTAL TRANSPORTATION CLERK documented in this encounter Results * PATHOLOGY (03/05/2008 1:19 PM POSTAL TRANSPORTATION CLERK) PATHOLOGY/CYT OLOGY REPORT [facility] [address] Patient: LOGAN MARINELLI Accn No: [id number] Collected: 03/05/2008 1:19:00 PM DERMATOPATHOLOGY FINAL REPORT [...] A1. 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 There are some keratinocytes with atypical nuclear features, and there are scattered mitotic figures. 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
--- OUTSIDE RECORDS SUMMARY | 2025-01-04 06:31 | XMS_ITS | Encounter Summary ---
Author Organization [facility] Address [address] [place] [address] Care Team Providers Care Technical Implementation Lead Name Role Phone Marsha Turner MD Primary Care Provider +1- [phone] Encounter Details Date Type Department Care Team (Late st Contact Info) Description 05/27/2006 Outpatient Historical [facility] [address] [place] [address] Thomas Mack MD NO ADDRESS ON FILE Malig Thierno Prostate (Primary Dx); Slow Urinary Stream; Urinary Frequency Social History Tobacco Use Types Packs/Day Years Used Date Smoking Tobacco: Never Assessed Sex and Gender Information Value Date Recorded Sex Assigned at Not on file Legal Sex Male 6:16 AM FORESTRY FIRE AID Gender Identity Not on file Sexual Orientation Not on file documented as of this encounter Plan of Treatment Not on file documented as of this encounter Visit Diagnoses Diagnosis Malig thierno prostate- Primary Malignant neoplasm of prostate Slow urinary stream Slowing of urinary stream Urinary frequency documented in this encounter Care Teams Technical Implementation Lead Relationship Specialty Start Date End Date Marsha Turner MD [address] [place], [place] [address] PCP - General Internal Medicine 05/31/12 documented as of this encounter
--- OUTSIDE RECORDS SUMMARY | 2025-01-04 06:31 | XMS_ITS | Encounter Summary ---
Author Organization [facility] Address [address] [place] [address] Care Team Providers Care Human Resources Compensation Analyst Name Role Phone Marsha Turner MD Primary Care Provider +1- [phone] Encounter Details Date Type Department Care Team (Latest Contact Info) Description 06/14/2006 Outpatient [facility] Gastroenterology[address] [place] [address] Abilio Bagley MD [address] [place] [address] Acute Pancreatitis (Primary Dx) Social History Tobacco Use Types Packs/Day Years Used Date Smoking Tobacco: Never Assessed Sex and Gender Information Value Date Recorded Sex Assigned at Not on file Legal Sex Male 6:16 AM HUMAN SERVICES PROFESSIONAL Gender Identity Not on file Sexual Orientation Not on file documented as of this encounter Plan of Treatment Not on file documented as of this encounter Visit Diagnoses Diagnosis Acute pancreatitis- Primary documented in this encounter Care Teams Human Resources Compensation Analyst Relationship Specialty Start Date End Date Marsha Turner MD [address] [place], [place] [address] PCP - General Internal Medicine 05/31/12 documented as of this encounter
--- OUTSIDE RECORDS SUMMARY | 2025-01-04 06:31 | XMS_ITS | Encounter Summary ---
Author Organization [facility] Address [address] [place] [address] Care Team Providers Care Technical Support Manager Name Role Phone Marsha Turner MD Primary Care Provider +1- [phone] Encounter Details Date Type Department Care Team (Latest Contact Info) Description 11/30/2005 Outpatient Historical [facility] [place] [address] [place] [address] David Teresa MD NO ADDRESS ON FILE Cough (Primary Dx); Other Dyspnea and Respiratory Abnormality Social History Tobacco Use Types Packs/Day Years Used Date Smoking Tobacco: Never Assessed Sex and Gender Information Value Date Recorded Sex Assigned at Not on file Legal Sex Male 6:16 AM FIELD ASSISTANT Gender Identity Not on file Sexual Orientation Not on file documented as of this encounter Plan of Treatment Not on file documented as of this encounter Visit Diagnoses Diagnosis Cough- Primary Other dyspnea and respiratory abnormality documented in this encounter Care Teams Technical Support Manager Relationship Specialty Start Date End Date Marsha Turner MD [address] [place], [place] [address] PCP - General Internal Medicine 05/31/12 documented as of this encounter
--- OUTSIDE RECORDS SUMMARY | 2025-01-04 06:31 | XMS_ITS | Encounter Summary ---
Author Organization [facility] Address [address] 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
--- OUTSIDE RECORDS SUMMARY | 2025-01-04 06:31 | XMS_ITS | Encounter Summary ---
Author Organization [facility] Address [address] [place] [address] Care Team Providers Care Body Hanger Name Role Phone Marsha Turner MD Primary Care Provider +1- [phone] Encounter Details Date Type Department Care Team (Latest Contact Info) Description 05/05/2005 Outpatient [facility] Gastroenterology[address] [place] [address] Abilio Bagley MD [address] [place] [address] CHEST PAIN NOS (Primary Dx); STOMACH FUNCTION DIS NEC; DYSPHAGIA Social History Tobacco Use Types Packs/Day Years Used Date Smoking Tobacco: Never Assessed Sex and Gender Information Value Date Recorded Sex Assigned at Not on file Legal Sex Male 6:16 AM TRANSIT SPECIALIST Gender Identity Not on file Sexual Orientation Not on file documented as of this encounter Plan of Treatment Not on file documented as of this encounter Visit Diagnoses Diagnosis Chest pain, unspecified- Primary Dyspepsia and other specified disorders of function of stomach Dysphagia documented in this encounter Care Teams Body Hanger Relationship Specialty Start Date End Date Marsha Turner MD [address] [place] [address] PCP - General Internal Medicine 05/31/12 documented as of this encounter
--- OUTSIDE RECORDS SUMMARY | 2025-01-04 06:31 | XMS_ITS | Clinical Summary ---
Author Organization [facility] Address [address] [place] [address] Care Team Providers Care Green Plumber Name Role Phone Marsha Turner MD Primary Care Provider +1- [phone] Allergies Active Allergy Reactions Criticality Noted Date [...] SYNTHROID 137 mcg tablet 137 mcg daily utility inspector. 9 Active liothyronine (CYTOMEL) 5 mcg Tablet 2 Tablets daily utility inspector. 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 Biological N/A: Spine Cervical Anterior LISA- SPINE 10/13/2014 / NA / [id number] C Stand Alone Cage [id number] Implanted:Qty: 1 on 04/18/2013 by John Csatillo MD at [facility] Cage N/A: Spine Cervical Anterior LISA- SPINE [id number] / LD [id number] / NA Cement Palacos R+G [id number] - Sna Implanted:Qty: 2 on 09/29/[address] [facility] Cement Left: Knee SHIRA US INC 01/13/201660-6458-733-01 / NA / NA Hemostatic Gelfoam Powder 1gm [id number] - [id number] Implanted:Qty: 1 on 05/20/2015 by Dee Casillas MD at [facility] Hemostatic N/A: Spine Thoracic PFIZER- PHARM 10/12/2017 [id number] / / [id number] Hemostatic Gelfoam Powder 1gm [id number] - [id number] Implanted:Qty: 1 on 09/14/2017 by Dee Casillas MD at [facility] Hemostatic N/A: Back PFIZER- PHARM 11/13/2019 [id number] / / [id number] Gel-Flow Nt Implanted:Qty: 1 on 08/12/2018 by Dee Casilals MD at [facility] Hemostatic N/A: Spine Cervical Anterior PFIZER- PHARMACIA AND UPJOHN I 08/04/2019 / / [id number] Bearing Tib Vng 10mm 79/83mm 037842 - [id number] Implanted:Qty: 1 on 09/29/[address] [facility] Knee Left: Knee BIOMET INC 05/12/2017 717104 / / [id number] Comp Fem Vng Ps Sz72.5 Lt 453421 - [id number] Implanted:Qty: 1 on 09/29/[address] [facility] Knee Left: Knee BIOMET INC 06/12/2022 472679 / / [id number] Comp Tib Cocr Finned 83mm 673173 - [id number] Implanted:Qty: 1 on 09/29/[address] [facility] Knee Left: Knee BIOMET INC 03/14/2022 404551 / / [id number] Standard Patella Implanted:Qty: 1 on 09/29/2012 by Dylon Abreu MD at [facility] Knee Left: Knee BIOMET- ORTHOPEDICS, INC 07/12/2017 162190 / / [id number] Plate Hybrid Cerv 12mm 42253401 - Sld [id number] Implanted:Qty: 1 on 04/18/[address] [facility] Plate N/A: Spine Cervical Anterior LISA- SPINE 74086433 / LD [id number] / NA Issac Lgcy Crv Ti 5.4d884cs 5123936 - [id number] Implanted:Qty: 1 on 09/14/2017 by Dee Casillas MD at [facility] Issac N/A: Back MEDTRONIC- SOFAMOR DANEK 09/15/2019 0513133 / / [id number] Issac Lgcy Crv Ti 5.9c009om 1272815 - [id number] Implanted:Qty: 1 on 09/14/2017 by Dee Casillas MD at [facility] Issac N/A: Back MEDTRONIC- SOFAMOR DANEK 09/15/2019 6072438 / / [id number] Issac Std 3.5p363vt 5189837 - [id number] Implanted:Qty: 2 on 08/12/2018 by Dee Casillas MD at [facility] Issac N/A: Spine Cervical Anterior MEDTRONIC- SOFAMOR DANEK 8495087 / [id number] / Screw Rh Sd Fa 4.0x14mm 72132210 - Sld [id number] Implanted:Qty: 1 on 04/18/[address] [facility] Screw N/A: Spine Cervical Anterior LISA- SPINE 57432092 / LD [id number] / NA Screw Sd 3.5x10mm 88812773 - Sld [id number] Implanted:Qty: 2 on 04/18/[address] [facility] Screw N/A: Spine Cervical Anterior LISA- SPINE 71231065 / LD [id number] / NA Screw Rh St Va 4.0x14mm 53508428 - Sld [id number] Implanted:Qty: 2 on 04/18/[address] [facility] Screw N/A: Spine Cervical Anterior LISA- SPINE 22305910 / LD [id number] / NA Screw Rh St Fa 4.0x14mm 35351595 - Sld [id number] Implanted:Qty: 1 on 04/18/[address] [facility] Screw N/A: Spine Cervical Anterior LISA- SPINE 94002377 / LD [id number] / NA Screw Legacy Ma 6.5x50mm 35838205 - [id number] Implanted:Qty: 1 on 09/14/2017 by Dee Casillas MD at [facility] Screw N/A: Back MEDTRONIC- SOFAMOR DANEK 17745300 / / [id number] Screw Legacy Ma 6.5x50mm 53013091 - [id number] Implanted:Qty: 1 on 09/14/2017 by Dee Casillas MD at [facility] Screw N/A: Back MEDTRONIC- SOFAMOR DANEK 55062048 / / [id number] Set Screw Break Off Ti 6345600 - [id number] Implanted:Qty: 1 on 09/14/2017 by Dee Casillas MD at [facility] Screw N/A: Back MEDTRONIC- SOFAMOR DANEK 3413199 / / [id number] Set Screw Break Off Ti 9430310 - [id number] Implanted:Qty: 1 on 09/14/2017 by Dee Casillas MD at [facility] Screw N/A: Back MEDTRONIC- SOFAMOR DANEK 3555777 / / [id number] Set Screw Break Off Ti 1372880 - [id number] Implanted:Qty: 1 on 09/14/2017 by Dee Casillas MD at [facility] Screw N/A: Back MEDTRONIC- SOFAMOR DANEK 0613113 / / [id number] Set Screw Break Off Ti 8331349 - [id number] Implanted:Qty: 1 on 09/14/2017 by Dee Casillas MD at [facility] Screw N/A: Back MEDTRONIC- SOFAMOR DANEK 9717305 / / [id number] Set Screw Break Off Ti 8760500 - [id number] Implanted:Qty: 1 on 09/14/2017 by Dee Casillas MD at [facility] Screw N/A: Back MEDTRONIC- SOFAMOR DANEK 0092081 / / [id number] Screw Legacy Ma 7.5x50mm 47873244 - [id number] Implanted:Qty: 1 on 09/14/2017 by Dee Casillas MD at [facility] Screw N/A: Back MEDTRONIC- SOFAMOR DANEK 23360131 / / [id number] Screw Legacy Ma 7.5x50mm 42619192 - [id number] Implanted:Qty: 1 on 09/14/2017 by Dee Casillas MD at [facility] Screw N/A: Back MEDTRONIC- SOFAMOR DANEK 79867861 / / [id number] Set Screw Break Off Ti 2401883 - [id number] Implanted:Qty: 1 on 09/14/2017 by Dee Casillas MD at [facility] Screw N/A: Back MEDTRONIC- SOFAMOR DANEK 7385694 / / [id number] Set Screw Break Off Ti 7814907 - [id number] Implanted:Qty: 1 on 09/14/2017 by Dee Casillas MD at [facility] Screw N/A: Back MEDTRONIC- SOFAMOR DANEK 7174541 / / [id number] Set Screw Break Off Ti 4892808 - [id number] Implanted:Qty: 1 on 09/14/2017 by Dee Casillas MD at [facility] Screw N/A: Back MEDTRONIC- SOFAMOR DANEK 8366596 / / [id number] Infinity Screw Implanted:Qty: 7 on 08/12/2018 by Dee Casillas MD at [facility] Screw N/A: Spine Cervical Anterior MEDTRONIC- NEUROSURGERY 0285056 / [id number] / Description:PER INVOICE Infinity Screw Implanted:Qty: 2 on 08/12/2018 by Dee Casillas MD at [facility] Screw N/A: Spine Cervical Anterior MEDTRONIC- NEUROSURGERY 5539877 / [id number] / Description:PER INVOICE Infinity Screw Implanted:Qty: 2 on 08/12/2018 by Dee Casillas MD at [facility] Screw N/A: Spine Cervical Anterior MEDTRONIC- NEUROSURGERY 6900583 / [id number] / Description:PER INVOICE Infinity Set Screws Implanted:Qty: 11 on 08/12/2018 by Dee Casillas MD at [facility] Screw N/A: Spine Cervical Anterior 5556922 / [id number] / Description:PER INVOICE Spacer As [id number] 83451808 - Sld [id number] Implanted:Qty: 1 on 04/18/[address] [facility] Spacer N/A: Spine Cervical Anterior LISA- SPINE 02938701 / LD [id number] / NA Crosslink Lp Mltspn L=1.75-2.15 811-322 - [id number] Implanted:Qty: 1 on 09/14/2017 by Dee Casillas MD at [facility] Spine N/A: Back MEDTRONIC- SOFAMOR DANEK 09/15/2019 811-322 / / [id number] Description:09/17 inv pricing Readigraft Canc Chips 30ml Can30 14bp - [id number] Implanted:Qty: 1 on 09/14/2017 by Dee Casillas MD at [facility] Tissue N/A: Back LIFENET 08/20/2019 CAN30 14BP / / [id number] Putty Bio Dbm 10ml 1403792 - [id number] Implanted:Qty: 1 on 09/14/2017 by Dee Casillas MD at [facility] Tissue N/A: Back LISA- HOWMEDICA INT INC 05/27/2019 1112919 / / [id number] Putty Bio Dbm 10ml 9692166 - [id number] Implanted:Qty: 1 on 09/14/2017 by Dee Casillas MD at [facility] Tissue N/A: Back LISA- HOWMEDICA INT INC 05/16/2019 2356127 / / [id number] Putty Bio Dbm 10ml 4981702 - [id number] Implanted:Qty: 1 on 08/12/2018 by Dee Casillas MD at [facility] Tissue N/A: Spine Cervical Anterior LISA- HOWMEDICA INT INC 04/13/2020 0860187 / / [id number] Putty Bio Dbm 10ml 3680055 - [id number] Implanted:Qty: 1 on 08/12/2018 by Dee Casillas MD at [facility] Tissue N/A: Spine Cervical Anterior LISA- HOWMEDICA INT INC 04/13/2020 3358421 / / [id number] Explanted Type Area Wet Roaster Device Identifier Shelf Expiration Date Model / Serial / Lot Stim Spnl Cord Precision Spectra [id number] - [id number] Implanted:Qty: 1 on 05/20/2015 by Dee Casillas MD at [facility] Explanted:Qty: 1 on 06/15/2016 by Dee Casillas MD at [facility] Neuro Right: Spine Thoracic [employer] SCI- NEURO MODULATION 05/02/2017 GA-1132 / / [id number] Infinity Set Screws Explanted:Qty: 2 on 08/12/[address] [facility] Screw N/A: Spine Cervical Anterior MEDTRONIC- NEUROSURGERY 0656887 / [id number] / Description:PER INVOICE Cover Edge 32 70cm 4x8 Local Company Flatbed Truck Driver Kit [id number] Implanted:Qty: 1 on 05/20/2015 by Dee Casillas MD at [facility] Explanted:Qty: 1 on 06/15/2016 by Dee Casillas MD at [facility] N/A: Spine Thoracic [employer] SCI INC 02/11/2017 / [id number] / [id number] Set Screws X4, Blockers X4, And 2 Rods Explanted:Qty: 1 on 09/14/2017 by Dee Casillas MD at [facility] N/A: Spine Cervical Anterior Insurance MEDICARE PART A AND B GENERIC PAYOR RX [facility] Medicare Part D [facility] MEDICARE PART A AND B Advance Directives For more information, please contact: [phone] * Full Code (Latest Code Status on [...] 9:28 AM 06/15/2016 5:17 PM Care Teams Green Plumber Relationship Specialty Start Date End Date Marsha Turner MD [address] [place] [address] PCP - General Internal Medicine 05/31/12
--- OUTSIDE RECORDS SUMMARY | 2025-01-04 06:31 | XMS_ITS | Encounter Summary ---
Author Organization [facility] Address [address] [place] [address] Care Team Providers Care Music Artist Name Role Phone Marsha Turner MD Primary Care Provider +1- [phone] Encounter Details Date Type Department Care Team (Late st Contact Info) Description 10/16/2004 Outpatient Historical [facility]- [address]tr[address], 3rd [place] [address] Thomas Mack MD NO ADDRESS ON FILE Malig emmett prostate (Primary Dx) Social History Tobacco Use Types Packs/Day Years Used Date Smoking Tobacco: Never Assessed Sex and Gender Information Value Date Recorded Sex Assigned at Not on file 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
--- OUTSIDE RECORDS SUMMARY | 2025-01-04 06:31 | XMS_ITS | Encounter Summary ---
Author Organization 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
--- OUTSIDE RECORDS SUMMARY | 2025-01-04 06:31 | XMS_ITS | Encounter Summary ---
Author Organization [facility] Address [address] [place] [address] Care Team Providers Care Dryer Feeder Name Role Phone Marsha Turner MD Primary Care Provider +1- [phone] Encounter Details Date Type Department Care Team (Late st Contact Info) Description 08/27/2005 Outpatient Historical [facility] [place], [place] [facility] [address] 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
--- OUTSIDE RECORDS SUMMARY | 2025-01-04 06:31 | XMS_ITS | Encounter Summary ---
Author Organization [facility] Address [address] [place] [address] Care Team Providers Care Whipped Topping Supervisor Name Role Phone Marsha Turner MD Primary Care Provider +1- [phone] Encounter Details Date Type Department Care Team (Latest Contact Info) Description 06/23/2005 Outpatient Historical [facility]- [place] [address] [place] [address] Jalen Rutledge MD NO ADDRESS ON FILE Chronic Rhinitis (Primary Dx); Other Dyspnea and Respiratory Abnormality Social History Tobacco Use Types Packs/Day Years Used Date Smoking Tobacco: Never Assessed Sex and Gender Information Value Date Recorded Sex Assigned at Not on file 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
--- OUTSIDE RECORDS SUMMARY | 2025-01-04 06:31 | XMS_ITS | Encounter Summary ---
Author Organization [facility] Address [address] [place] [address] Care Team Providers Care Service Cashier Name Role Phone Marsha Turner MD Primary Care Provider +1- [phone] Encounter Details Date Type Department Care Team (Latest Contact Info) Description 05/06/2005 Outpatient [facility] Gastroenterology[address] [place] [address] Abilio Bagley MD [address] [place] [address] CHEST PAIN NOS (Primary Dx) Social History Tobacco Use Types Packs/Day Years Used Date Smoking Tobacco: Never Assessed Sex and Gender Information Value Date Recorded Sex Assigned at Not on file 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
--- OUTSIDE RECORDS SUMMARY | 2025-01-04 06:31 | XMS_ITS | Encounter Summary ---
Author Organization [facility] Address [address] 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
--- OUTSIDE RECORDS SUMMARY | 2025-01-04 06:31 | XMS_ITS | Encounter Summary ---
Author Organization [facility] Address [address] [place] [address] Care Team Providers Care Shift Supervisor Film Processing Name Role Phone Marsha Turner MD Primary Care Provider +1- [phone] Encounter Details Date Type Department Care Team (Late st Contact Info) Description 12/09/2004 Outpatient Historical [facility] Urology- [address]tr[address], 3rd [place] [address] Thomas Mack MD NO ADDRESS ON FILE Malig emmett prostate (Primary Dx); DYSURIA; Slow urinary stream Social History Tobacco Use Types Packs/Day Years Used Date Smoking Tobacco: Never Assessed Sex and Gender Information Value Date Recorded Sex Assigned at Not on file 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
--- OUTSIDE RECORDS SUMMARY | 2025-01-04 06:31 | XMS_ITS | Encounter Summary ---
Author Organization [facility] Address [address] [place] [address] Care Team Providers Care Chair Name Role Phone Marsha Turner MD Primary Care Provider +1- [phone] Reason for Referral * Outpatient Services (Routine) - Closed Specialty Diagnoses / Procedures Referred By Contac t Referred To Contact Radiology Diagnoses H/O: stroke Dizziness History of atrial fibrillation Procedures ECHOCARDIOGRAM W/ CONTRAST AGENT ECHO COMPLETE W BUBBLE STUDY Hayes Harris MD Phone: tel: fax: [facility] [address] [place] [address] Phone: tel: fax: Referral ID Status Reason Start Date Expiration Date V isits Requested Visits Authorized [id number] Closed F [facility] TO SCHEDULE (SGF) 07/31/2016 08/31/2017 1 1 Encounter Details Date Type Department Care Team (Latest Contact Info) Description 08/20/2016 Ancillary Orders [facility]- [place] 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 Gender Identity Not on file Sexual [...] INTERFACE SYSTEM - 08/20/2016 10:06 AM CDT [facility] Echocardiography-[address] [place] [address] Transthoracic Echocardiography Patient: Yves Study ECHO Kojo Brown ID: COMPLETE W Gender: Stephanie : 1945 Age: 70 Room: Study 08/20/2016 Pt Outpatient Date: Status: Study 07:40 AM CSN #: [id number] Time: Ordering:Hayes Harris Interpreting:Giovanni Benitez MD Contracts Officer: Gabby Simeon [facility] Indications and History: : [...] septum: Agitated saline contrast study showed no zbhdy-ck-pdap shunt. - Aortic valve: Trileaflet; mildly thickened [...] Doppler. Agitated saline contrast study showed no fbkyo-iy-vjvv shunt. AORTIC VALVE: Trileaflet; mildly thickened leaflets. [...] (*) eaton values outside specified normal range. [facility] are accredited with the Intersocietal Accreditation Commission - Echocardiography. Prepared and Electronically Authenticated Giovanni Benitez MD Confirmed 08/20/2016 10:06 Procedure Note Giovanni Benitez MD - 08/20/2016 [facility] [address] [facility] [address] [place] [address] Transthoracic Echocardiography Patient: Yves Study ECHO Kojo Brown ID: COMPLETE W Gender: Stephanie : 1945 Age: 70 Room: Study 08/20/2016 Pt Outpatient Date: Status: Study 07:40 AM [facility] #: [id number] Time: Ordering:Hayes Harris Interpreting:Giovanni Benitez MD Contracts Officer: Gabby Simeon [facility] Indications and History: : [...] septum: Agitated saline contrast study showed no wagkt-zp-tykz shunt. - Aortic valve: Trileaflet; mildly thickened [...] Doppler. Agitated saline contrast study showed no vtfbv-at-dubl shunt. AORTIC VALVE: Trileaflet; mildly thickened leaflets. [...] (*) eaton values outside specified normal range. [facility] are accredited with the Intersocietal [...] system documented in this encounter Care Teams Chair Relationship Specialty Start Date End Date Marsha Turner MD [address] [place] [address] PCP - General Internal Medicine 05/31/12 documented as of this encounter
--- OUTSIDE RECORDS SUMMARY | 2025-01-04 06:31 | XMS_ITS | Encounter Summary ---
Author Organization [facility] Address [address] [place] [address] Care Team Providers Care Lumber Puller Name Role Phone Marsha Turner MD Primary Care Provider +1- [phone] Encounter Details Date Type Department Care Team (Latest Contact Info) Description 09/28/2000 Outpatient Historical [facility] [address] [place] [address] Lakhwinder Mahmood MD Nonspecific abnormal results of liver function study (Primary Dx) Social History Tobacco Use Types Packs/Day Years Used Date Smoking Tobacco: Never Assessed Sex and Gender Information Value Date Recorded Sex Assigned at Not on file 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
--- OUTSIDE RECORDS SUMMARY | 2025-01-04 06:31 | XMS_ITS | Encounter Summary ---
Author Organization [facility] Address [address] [place] [address] Care Team Providers Care Collect On Delivery Clerk Name Role Phone Marsha Turner MD Primary Care Provider +1- [phone] Encounter Details Date Type Department Care Team (Latest Contact Info) Description 05/06/2005 Outpatient Historical [facility] [place] [address] [place] [address] [place] [phone] Abilio Bagley MD [address] [place] [phone] CHEST PAIN NOS (Primary Dx) Social History Tobacco Use Types Packs/Day Years Used Date Smoking Tobacco: Never Assessed Sex and Gender Information Value Date Recorded Sex Assigned at Not on file 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
--- OUTSIDE RECORDS SUMMARY | 2025-01-04 06:32 | XMS_ITS | Encounter Summary ---
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 Gender Identity Not on file Sexual Orientation Not on file documented as of this encounter Plan of Treatment Not on file documented as of this encounter Procedures Procedure Name Priority Date/Time Associated Diagnosis Comments PSA MEDICARE SCREEN Routine 05/28/2004 8 :26 AM SHANK SANDER URINALYSIS MICROSCOPY ONLY Routine 05/27/2004 8:51 PM SHANK SANDER URINALYSIS W/REFLEX MICROSCOPIC Routine 05/27/2004 8:51 PM SHANK SANDER CBC WITH DIFFERENTIAL Routine 05/26/2004 5:07 AM SHANK SANDER TSH Routine 05/26/2004 5:07 AM SHANK SANDER LIPID PANEL Routine 05/26/2004 5:07 AM SHANK SANDER BASIC METABOLIC PANEL Routine 05/26/2004 5:07 AM SHANK SANDER URINALYSIS MICROSCOPY ONLY Routine 05/25/2004 2:02 PM SHANK SANDER URINALYSIS W/REFLEX MICROSCOPIC Routine 05/25/2004 2:02 PM SHANK SANDER PTT Routine 05/25/2004 5:41 AM SHANK SANDER CBC WITHOUT DIFFERENTIAL Routine 05/25/2004 5:41 AM SHANK SANDER CARDIAC ENZYMES Routine 05/25/2004 3:42 AM SHANK SANDER CARDIAC ENZYMES Routine 05/24/2004 9:06 PM SHANK SANDER URINALYSIS MICROSCOPY ONLY Routine 05/24/2004 5:22 PM SHANK SANDER URINALYSIS W/REFLEX MICROSCOPIC Routine 05/24/2004 5:22 PM SHANK SANDER CARDIAC ENZYMES Routine 05/24/2004 3:18 PM SHANK SANDER PTT Routine 05/24/2004 3:18 PM SHANK SANDER DRUG SCREEN, URINE Routine 05/24/2004 10 :52 AM SHANK SANDER D-DIMER Routine 05/24/2004 9:30 AM SHANK SANDER documented in this encounter Results * PSA MEDICARE SCREEN (05/28/2004 8:26 AM SHANK SANDER) PSA 2.8 0.0 - 4.0 ng/mL INTERFACE SYSTEM Comment:Results for patients receiving treatment must be evaluated individually by the physician. 05/28/2004 8:26 AM SHANK SANDER us Marj Hardy MD CHEMISTRY ORDERABLES COM Final Result INTERFACE SYSTEM Refer to clinic/hospital department * (ABNORMAL) URINALYSIS (05/27/2004 8:51 PM SHANK SANDER) COLOR UA Yellow Straw INTERFACE SYSTEM CLARITY [...] Yes(A) No INTERFACE SYSTEM 05/27/2004 8:51 PM SHANK SANDER Thomas Mack MD URINE ORDERABLES Final Result Performing Organization Address City/[facility] Co de Phone Number INTERFACE SYSTEM Refer to clinic/hospital department * URINALYSIS MICROSCOPY ONLY (05/27/2004 8:51 PM SHANK SANDER) WBC URINE None Seen 0 - 2 INTERFACE SYSTEM RBC UA None Seen 0 - 2 INTERFACE SYSTEM HYALINE CAST 0-2 0 - 2 INTERFA CE SYSTEM 05/27/2004 8:51 PM SHANK SANDER Thomas Mack MD URINE ORDERABLES Final Result Performing Organization Address [facility] Phone Number INTERFACE SYSTEM Refer to clinic/hospital department * (ABNORMAL) CBC WITH DIFFERENTIAL (05/26/2004 5:07 AM SHANK SANDER) WBC 3.7(L) 4.8 - 10.8 K/ul INTERFACE [...] 0.2 K/ul INTERFACE SYSTEM 05/26/2004 5:07 AM SHANK SANDER Marj Hardy MD HEMATOLOGY ORDERABLES Final Re sult Performing Organization Address [facility] de Phone Number INTERFACE SYSTEM Refer to clinic/hospital department * (ABNORMAL) TSH (05/26/2004 5:07 AM SHANK SANDER) TSH <0.03(L) 0.49 - 4.67 uIU/ml INTERFACE SYSTEM 05/26/2004 5:07 AM SHANK SANDER Marj Hardy MD CHEMISTRY ORDERABLES Final Res ult Performing Organization Address [facility] Co de Phone Number INTERFACE SYSTEM Refer to clinic/hospital department * (ABNORMAL) BASIC METABOLIC PANEL (05/26/2004 5:07 AM SHANK SANDER) GLUCOSE 167(H) 70 - 110 mg/dL INTERFACE [...] 10.5 mg/dL INTERFACE SYSTEM 05/26/2004 5:07 AM SHANK SANDER Result [facility] Marj Hardy MD CHEMISTRY ORDERABLES Final Res ult Performing Organization Address [facility] Phone Number INTERFACE SYSTEM Refer to clinic/hospital department * (ABNORMAL) LIPID PANEL (05/26/2004 5:07 AM SHANK SANDER) CHOLESTEROL 120 75 - 200 mg/dL INTERFACE SYSTEM TRIGLYCERIDE 66 0 - 200 mg/dL INTERFACE SYSTEM CALCULATED TOTAL CHOLESTEROL TO HDL RATIO 2.93(L) 3.43 - 4.97 INTERFACE SYSTEM HDL 41 40 - 60 mg/dL INTERFACE SYSTEM LDL CALCULATED 66 0 - 130 mg/dL INTERFACE SYSTEM 05/26/2004 5:07 AM SHANK SANDER Result [facility] aMrj Hardy MD CHEMISTRY ORDERABLES Final Res ult Performing Organization Address [facility] Phone Number INTERFACE SYSTEM Refer to clinic/hospital department * (ABNORMAL) URINALYSIS (05/25/2004 2:02 PM SHANK SANDER) COLOR UA Yellow Straw INTERFACE SYSTEM CLARITY [...] Yes(A) No INTERFACE SYSTEM 05/25/2004 2:02 PM SHANK SANDER Result [facility] Marj Hardy MD URINE ORDERABLES Final Result Performing Organization Address [facility] Phone Number INTERFACE SYSTEM Refer to clinic/hospital department * (ABNORMAL) URINALYSIS MICROSCOPY ONLY (05/25/2004 2:02 PM SHANK SANDER) WBC URINE 0-2 0 - 2 INTERFACE SYSTEM RBC UA 3-5(A) 0 - 2 INTERFACE SYSTEM HYALINE CAST None Seen 0 - 2 INTERFA CE SYSTEM BACTERIA UA None Seen None Seen INTERFAC E SYSTEM 05/25/2004 2:02 PM SHANK SANDER Marj Hardy MD URINE ORDERABLES Final Result Performing Organization Address [facility] de Phone Number INTERFACE SYSTEM Refer to clinic/hospital department * (ABNORMAL) PTT (05/25/2004 5:41 AM SHANK SANDER) PTT 47.8(H) 24.3 - 37.5 Secs INTERFACE SYSTEM Comment:Therapeutic Range: 05/25/2004 5:41 AM SHANK SANDER Marj Hardy MD HEMATOLOGY ORDERABLES Final Re sult Performing Organization Address City/[facility] de Phone Number INTERFACE SYSTEM Refer to clinic/hospital department * (ABNORMAL) CBC WITHOUT DIFFERENTIAL (05/25/2004 5:41 AM SHANK SANDER) WBC 4.5(L) 4.8 - 10.8 K/ul INTERFACE [...] 0.2 K/ul INTERFACE SYSTEM 05/25/2004 5:41 AM SHANK SANDER Result Jennifer Hardy MD HEMATOLOGY ORDERABLES Final Re sult Performing Organization Address City/[facility] Co de Phone Number INTERFACE SYSTEM Refer to clinic/hospital department * CARDIAC ENZYMES (05/25/2004 3:42 AM SHANK SANDER) CKMB 0.7 0.0 - 5.5 ng/mL INTERFACE SYSTEM TROPONIN I 0.0 0.0 - 1.5 ng/mL INTERFACE SYSTEM Comment: Expected Range: Normal 0.0 - 1.5 ng/ml Borderline 1.6 - 4.4 ng/ml Positive > = 4.5 ng/ml 05/25/2004 3:42 AM SHANK SANDER Result Jennifer Hardy MD CHEMISTRY ORDERABLES Final Res ult Performing Organization Address City/[facility] Co de Phone Number INTERFACE SYSTEM Refer to clinic/hospital department * CARDIAC ENZYMES (05/24/2004 9:06 PM SHANK SANDER) CKMB <0.7 0.0 - 5.5 ng/mL INTERFACE SYSTEM TROPONIN I 0.0 0.0 - 1.5 ng/mL INTERFACE SYSTEM Comment: Expected Range: Normal 0.0 - 1.5 ng/ml Borderline 1.6 - 4.4 ng/ml Positive > = 4.5 ng/ml 05/24/2004 9:06 PM SHANK SANDER Result Jennifer Hardy MD CHEMISTRY ORDERABLES Final Res ult Performing Organization Address [facility] Phone Number INTERFACE SYSTEM Refer to clinic/hospital department * (ABNORMAL) URINALYSIS (05/24/2004 5:22 PM SHANK SANDER) COLOR UA Yellow Straw INTERFACE SYSTEM CLARITY [...] Yes(A) No INTERFACE SYSTEM 05/24/2004 5:22 PM SHANK SANDER Marj Hardy MD URINE ORDERABLES Final Result Performing Organization Address [facility] Phone Number INTERFACE SYSTEM Refer to clinic/hospital department * (ABNORMAL) URINALYSIS MICROSCOPY ONLY (05/24/2004 5:22 PM SHANK SANDER) WBC URINE 0-2 0 - 2 INTERFACE SYSTEM RBC UA >80(A) 0 - 2 INTERFACE SYSTEM HYALINE CAST None Seen 0 - 2 INTERFA CE SYSTEM BACTERIA UA None Seen None Seen INTERFAC E SYSTEM 05/24/2004 5:22 PM SHANK SANDER Marj Hardy MD URINE ORDERABLES Final Result Performing Organization Address [facility] Phone Number INTERFACE SYSTEM Refer to clinic/hospital department * CARDIAC ENZYMES (05/24/2004 3:18 PM SHANK SANDER) CKMB 0.7 0.0 - 5.5 ng/mL INTERFACE SYSTEM TROPONIN I 0.0 0.0 - 1.5 ng/mL INTERFACE SYSTEM Comment: Expected Range: Normal 0.0 - 1.5 ng/ml Borderline 1.6 - 4.4 ng/ml Positive > = 4.5 ng/ml 05/24/2004 3:18 PM SHANK SANDER Result [facility] Marj Hardy MD CHEMISTRY ORDERABLES Final Res ult Performing Organization Address [facility] Phone Number INTERFACE SYSTEM Refer to clinic/hospital department * (ABNORMAL) PTT (05/24/2004 3:18 PM SHANK SANDER) PTT 75.3(H) 24.3 - 37.5 Secs INTERFACE SYSTEM Comment:Therapeutic Range: 05/24/2004 3:18 PM SHANK SANDER Result [facility] Marj Hardy MD HEMATOLOGY ORDERABLES Final Re sult Performing Organization Address [facility] Phone Number INTERFACE SYSTEM Refer to clinic/hospital department * (ABNORMAL) DRUG SCREEN, URINE (05/24/2004 10:52 AM SHANK SANDER) OPIATE QUAL, URINE Drug Positive(A) Drug Negative [...] Negative INTERFACE SYSTEM 05/24/2004 10:5 2 AM SHANK SANDER Result Jennifer Hardy MD URINE ORDERABLES Final Result Performing Organization Address [facility] Phone Number INTERFACE SYSTEM Refer to clinic/hospital department * (ABNORMAL) D-DIMER (05/24/2004 9:30 AM SHANK SANDER) D-DIMER QUANT 2.0(H) 0.0 - 0.5 mcg/mL INTERFACE SYSTEM 05/24/2004 9:30 AM SHANK SANDER Result Jennifer Hardy MD HEMATOLOGY ORDERABLES Final Re sult Performing Organization Address [facility] de Phone Number INTERFACE SYSTEM Refer to clinic/hospital department documented in this encounter Visit Diagnoses Diagnosis Unspecified asthma(493.90)- Primary Unspecified asthma documented in this encounter Care Teams Applications Programmer Analyst Relationship Specialty Start Date End Date Marsha Turner MD [address] [place] [address] PCP - General Internal Medicine 05/31/12 documented as of this encounter
--- OUTSIDE RECORDS SUMMARY | 2025-01-04 06:32 | XMS_ITS | Encounter Summary ---
Author Organization [facility] Address [address] [place] [address] Care Team Providers Care Director Employee Communications Name Role Phone Marsha Turner MD Primary Care Provider +1- [phone] Encounter Details Date Type Department Care Team (Late st Contact Info) Description 09/12/2004 Outpatient Historical [employer] [facility] [place] [address] 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
--- OUTSIDE RECORDS SUMMARY | 2025-01-04 06:32 | XMS_ITS | Encounter Summary ---
Author Organization [facility] Address [address] [place] [address] Care Team Providers Care Diet Aid Name Role Phone Marsha Turner MD Primary Care Provider +1- [phone] Encounter Details Date Type Department Care Team (Late st Contact Info) Description 08/26/[address] 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
--- OUTSIDE RECORDS SUMMARY | 2025-01-04 06:32 | XMS_ITS | Encounter Summary ---
Author Organization [facility] Address [address] [place] [address] Care Team Providers Care Plant Director Name Role Phone Marsha Turner MD Primary Care Provider +[phone]- [phone] Encounter Details Date Type Department Care Team (Late st Contact Info) Description 09/12/[address] 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
[2025-01-04] MEDS: HYDROmorphone 0.5 MG/0.5 ML INJ IVP (09:20)
[2025-01-04] MEDS: FUROsemide 10 mg/mL SDV 4mL 40 MG IVP ×2 (09:23→20:12)
--- NOTE | 2025-01-04 10:58 | CT_ITS ---
WS: [id number] CT ABDOMEN PELVIS TECHNIQUE: Noncontrast CT of the abdomen and pelvis with coronal and sagittal reformatted images. CLINICAL INFORMATION: sbo vs ileus COMPARISON: 01/03/2025 DLP: 946.[address] scans at [facility] use at least one of these dose optimization techniques: automated exposure control; mA and/or kV adjustment per patient size (includes targeted exams where dose is matched to clinical indication); or iterative reconstruction. FINDINGS: Again seen is marked gaseous distention of the transverse colon with a more normal appearing descending LEFT colon and sigmoid colon with persistent air and stool in the sigmoid colon. No visualized obstructing mass or lesion at the level of the splenic flexure. Findings most likely due to adynamic ileus but recommend continued surveillance and follow-up to resolution. Findings can be followed up with colonoscopy if presumed ileus does not resolve with conservative measures. Otherwise no other remarkable changes compared to previous. Normal noncontrast liver and spleen. Cholecystectomy clips. Adrenal glands are normal. LEFT renal cyst. Stomach is decompressed. Oral contrast is still in the small bowel. Fecal retention RIGHT colon and cecum. Velazquez catheter. Postoperative changes as previously described. CT/CT abdomen pelvis con [id number] IMPRESSION: 1. Overall no significant changes since 01/03/2025. 2. Again seen is marked gaseous distention of the transverse colon with calibe r change at the level of the splenic flexure with a more normal caliber descend ing LEFT colon and sigmoid colon with persistent air. Findings most likely due to adynamic ileus. 3. No visualized obstructing mass or lesion at the splenic flexure. If symptom s do not resolve with conservative measures consider further evaluation with co lonoscopy.
[2025-01-04] MEDS: iohexol 350 mg/mL 500 mL Btl (per mL) PO (11:17)
--- NOTE | 2025-01-04 12:29 | PC.NURSE ---
Patient c/o off and on chest pain. Administered nitro as ordered and documented. Patient report relief. Informed Dr Harris. Patient off the floor to CT
--- NOTE | 2025-01-04 12:52 | P.PN_ITS ---
Subjective 2 Subjective: Patient was seen morning - Currently alert oriented x 3, followin g all commands, is at bedside - Denies any nausea, no vomiting, does r eport abdominal distention, no abdominal pain, he has not had a bowel movement, not passing gas - Discussed CT scan findings of distende d transverse colon, somewhat similar in appearance to his prior CAT scan, concern for colonic ileus versus small bowel obstruction - On examination abdomen is distended, h as scattered bowel sounds, no guarding, no rebound, rigidity, - Discussed risks and benefits of perfor rina a CT abdomen pelvis with oral contrast - After discussing the risks and benefit s, including allergic risk of aspiration, and morbidity mortality associated with aspiration of oral contrast, he voiced understanding, all questions were agreed to proceed - Discussed with family that we do not h ave surgical services here at [facility], that if he does have a bowel obstruction or persistent ileus we might have to transfer him to a tertiary level center - Patient is not very pleased with this, but understands, family members at bedside - CT scan abdomen pelvis with oral contr ast ordered - CT scan abdomen pelvis with oral contr ast as below CT/CT abdomen pelvis con [id number] IMPRESSION: 1. Overall no significant changes since 01/03/2025. 2. Again seen is marked gaseous distent ion of the transverse colon with caliber change at the level of the splenic flexure with a more normal caliber descending LEFT colon and sigmoid colon with persistent air. Findings most likely due to adynamic ileus. 3. No visualized obstructing mass or le abraham at the splenic flexure. If symptoms do not resolve with conservative measures consider further evaluation with colonoscopy. - Patient was reexamined, abdominal dist ention is improving, he is not passing gas, little has not had a bowel movement, no nausea, vomiting discussed oral liquids, trying a bowel regimen such as MiraLAX - Discussed risks and benefits, he voice d understanding, all questions answered, agreed to proceed, does not really want to be transferred, - Discussed with patient that if he cont inues to have evidence of ileus tomorrow or worsening ileus, we will have to consider transfer to tertiary level center - He voices understanding, all questions answered, agreed to proceed - He did have an episode of chest pain t his afternoon he tells me but it is resolved, - Discussed his low probability stress t est, echocardiogram showed EF of 60%, he voiced understanding, all questions answered - Patient does report shortness of breat h improving, edema improving, Vitals/I&O/Wt Last Vital Signs Temp 98.3 F 01/04/25 08:00 Pulse 63 01/04/25 08:00 Resp 29 H 01/04/25 08:00 BP 115/81 01/04/25 08:00 Pulse Ox 92 01/04/25 08:00 O2 Del Method Nasal Cannula 01/04/25 03:29 O2 Flow Rate 2 01/04/25 03:29 01/03/25 01/04/25 01/04/25 22:59 06:59 14:59 Intake Total 480 / 480 Output Total 1250 / 1250 Balance 480 / 480 -1250 / -770 Weight last 48 hrs Weight 101.6 kg Weight 103.4 kg Weight 100.698 kg Physical Exam 2 Const: COMMON NORMALS: no acute distress and patient oriented x3 Resp: COMMON NORMALS: normal respiratory effort, No retractions, No use of accessory muscles and clear to auscultation bilaterally AUSCULTATION: clear to auscultation bilaterally Cardio: COMMON NORMALS: regular rate, regular rhythm, S1 normal heart sound present and S2 normal heart sound present RATE: regular rate RHYTHM: r egular rhythm HEART SOUNDS: S1 normal heart sound present and S2 normal heart sound present GI: OTHER: Soft, distended, good bowel sounds, no guarding, no rebound, no rigidity, no palpable tenderness Extremity: OTHER: 2+ edema Neuro: COMMON NORMALS: patient oriented x3, CN's II-XII intact bilaterally and moves all extremities Psych: COMMON NORMALS: mental status grossly normal Urinary Catheter Management: Velazquez: Cath Placed During This Visit: yes, but has since been removed by the nurse Reason for Continuing Indwelling Catheter: Accurate Measurement of Urinary Output in Critically Ill Patients Urinary Catheter Date of Insertion: 01/03/25 Urinary Catheter Time of Insertion: 23:15 Date Urinary Catheter Removed: 01/03/25 Time Urinary Catheter Discontinued: 23:15 Data 01/04/25 03:05 01/04/25 04:45 A&P Assessment and plan 1. Chest pain: 2. Atrial fibrillation: 3. Port-A-Cath in place: Plan: Chest pain - Serial EKGs, serial troponins, telemetry monitoring - Aspirin, statin, Coreg, switch to therapeutic Lovenox - Cardiac echo CONCLUSIONS Normal left ventricular size, systolic function and wall thickness, with no regional wall motion abnormalities. Left ventricular ejection fraction is estimated at 60 %. Grade II/IV diastolic dysfunction, moderately elevated filling pressures There is no pericardial effusion. No significant valve abnormalities. Right atrial pressure is around 5 mm of mercury. 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 This study is negative for ischemia. - Continue to medically manage - Monitor recurrent chest pain Shortness of breath - Evidence of diastolic CHF exacerbation -CT chest no acute findings - Cardiac echo as above - Please Velazquez catheter - Lasix 40 IV twice daily - Monitor creatinine, monitor potassium Abdominal distention, history of C. difficile -Concerns for adynamic ileus - C. difficile testing pending - CT scan abdomen pelvis Again seen is marked gaseous distention of the transverse colon with a more normal appearing descending LEFT colon and sigmoid colon with persistent air and stool in the sigmoid colon. No visualized obstructing mass or lesion at the level of the splenic flexure. Findings most likely due to adynamic ileus but recommend continued surveillance and follow-up to resolution. Findings can be followed up with colonoscopy if presumed ileus does not resolve with conservative measures. Otherwise no other remarkable changes compared to previous. Normal noncontrast liver and spleen. Cholecystectomy clips. Adrenal glands are normal. LEFT renal cyst. Stomach is decompressed. Oral contrast is still in the small bowel. Fecal retention RIGHT colon and cecum. Velazquez catheter. Postoperative changes as previously described. Plan - Serial abdominal exams - Repeat KUB tomorrow morning Bilateral lower extremity edema, venous ultrasound negative for pending Full code Lovenox for DVT prophylaxis PDMP PDMP Reviewed: Not Reviewed Attestations 2 Medical Necessity Statement*: Patient requires hospitalization for chest pain, shortness of breath, abdominal distention, adynamic ileus Diagnoses Chest pain R07.9 Atrial fibrillation I48.91 Port-A-Cath in place Z95.828
[2025-01-04] MEDS: lidocaine 2% viscous 15 ML, aluminum-mag hydrox-simethicon 30 ML, sucralfate oral liq 1 GM PO (16:18)
--- NOTE | 2025-01-04 17:52 | ECG_ITS ---
[facility] Test Date: 2025-01-04 Pat Name: Kojo Marinelli Department: Room: 102 Gender: Male Court Magistrate: : 1945 Requested By: Jac Polanco Order Number: [id number] Tessa MD: Priyanka Rivas M.D. Measurements Intervals [place] Rate: 66 P: 247 SC: 151 QRS: -58 QRSD: 123 T: 33 QT: 443 QTc: 466 Interpretive Statements SINUS RHYTHM POSSIBLE RIGHT VENTRICULAR CONDUCTION DELAY [RSR (QR) IN V1/V2] POSSIBLE ANTERIOR MYOCARDIAL INFARCTION , PROBABLY OLD [30 ms Q WAVE IN V3/V4, OR R < 0.2 mV IN V4] INFERIOR MYOCARDIAL INFARCTION , PROBABLY OLD [40+ ms Q WAVE AND/OR ST/T ABNORMALITY IN II/aVF] ST DEPRESSION, CONSIDER SUBENDOCARDIAL INJURY [0.1+ mV ST DEPRESSION] Compared to ECG 01/03/2025 22:25:45 Ectopic atrial rhythm no longer present Myocardial infarct finding still present ST (T wave) deviation still present Electronically Signed On 01-05-2025 15:24:49 CDT by Priyanka Rivas M.D. [id number]
[2025-01-04 18:46] LABS: Troponin(5th) Baseline 35 ng/L (0-15)
[2025-01-04] MEDS: pantoprazole 40 mg SDV IVP (20:13)
--- NOTE | 2025-01-04 20:16 | NMCV_ITS ---
NM pamela perf SPECT r/s* [id number] Kojo Marinelli Age: 79 Gender: M : 1945 Exam Date: 01/04/2025 06:48 Ordering Phys: Jac Polanco MD Technologist: MINGO Page Exam Location: [facility] Indications: CP STRESS TEST Please see separate stress test report in [facility] for full findings IMAGE PROTOCOL Rest/Stress 1 Lexiscan Day Radiopharmaceutical Dose (mCi) Administration Site Administered by Rest: Tc-99m 11.0 IV MINGO Rivera Sestamibi Stress:Tc-99m 32.9 IV MINGO Page Sestamimeggan Rest: 04-Jan-2025 60 Discovery 630 Stress: 04-Jan-2025 30 Discovery 630 0.4mg Lexiscan. Supine position only as patient was unable to lay prone. SPECT RESULTS Technical Quality: Good Raw Data Analysis: Normal Image Corrections: No attenuation or motion correction applied Summed Stress Score: 2 Summed Rest Score: 8 Summed Difference Score: 0 PERFUSION FINDINGS Large area of fixed perfusion defect noted in basal distal inferior wall suggestive of old myocardial infarction versus scarring without significant ischemia FUNCTIONAL RESULTS (calculated via Gated SPECT) Stress Image LV EF (%): 63 Stress EDV (mL):128 TID: 1.17 Stress ESV (mL):47 FUNCTIONAL FINDINGS: Basal to mid inferior wall hypokinesis IMPRESSIONS Old myocardial infarction versus scarring noted in basal to distal inferior wall without significant ischemia. This study is negative for ischemia. Naz Russ MD (Electronically Signed) Final Date: 04 January 2025 09:02 S
[2025-01-04 20:37] LABS: C.Diff PCR (Lab) NEGATIVE (Negative)
--- NOTE | 2025-01-04 20:47 | ECG_ITS ---
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 Measurements Intervals [place] Rate: 66 P: 265 SD: 137 QRS: -60 QRSD: 127 T: 3 QT: 439 QTc: 463 Interpretive Statements SINUS RHYTHM POSSIBLE RIGHT VENTRICULAR CONDUCTION DELAY [RSR (QR) IN V1/V2] ANTEROLATERAL MYOCARDIAL INFARCTION , PROBABLY OLD [40+ ms Q WAVE IN I/aVL/V3-V6] ST DEPRESSION, CONSIDER SUBENDOCARDIAL INJURY [0.1+ mV ST DEPRESSION] Compared to ECG 01/04/2025 18:21:37 Junctional rhythm now present Sinus rhythm no longer present Myocardial infarct finding still present ST (T wave) deviation still present Electronically Signed On 01-05-2025 15:28:41 CDT by Priyanka Rivas M.D. [email or web address]
[2025-01-04 21:40] LABS: Troponin 5 2HR 39.80 ng/L (0-15); Troponin 5 2HR Delta 4.80 ABS# (0-10)
[2025-01-04] MEDS: ondansetron 2 mg/ML SDV 2 mL 4 MG IVP (22:55)
--- NOTE | 2025-01-04 23:52 | ECG_ITS ---
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 Measurements Intervals [place] Rate: 79 P: -12 NM: 233 QRS: -64 QRSD: 153 T: 24 QT: 435 QTc: 500 Interpretive Statements SINUS RHYTHM WITH FIRST DEGREE AV BLOCK WITH OCCASIONAL SUPRAVENTRICULAR PREMATURE COMPLEXES INTRAVENTRICULAR CONDUCTION DELAY [130+ ms QRS DURATION] PROBABLE LATERAL MYOCARDIAL INFARCTION , OF INDETERMINATE AGE [35 ms Q WAVE IN I/aVL/V5/V6] Compared to ECG 01/04/2025 20:47:08 First degree AV block now present Intraventricular conduction delay now present Junctional rhythm no longer present ST (T wave) deviation no longer present Myocardial infarct finding still present Electronically Signed On 01-05-2025 15:28:08 CDT by Priyanka Rivas M.D. [id number]
[2025-01-05 01:03] LABS: Troponin 5 6HR 47.01 ng/L (0-15)
[2025-01-05 01:09] LABS: Troponin 5 6HR Delta 12.01 ng/L (0-12)
[2025-01-05 03:11] VITALS: BP 143/84; PULSE 82; RESP 18; TEMP 36.9; O2SAT 95
[2025-01-05 05:10] LABS: Hematocrit 33.4 % (37-53); Hemoglobin 11.00 g/dL (11.27-16.99); Mean Corpuscular HGB Conc 32.9 g/dL (30-55); Mean Corpuscular Hemoglobin 31.6 pg (27-33); Mean Corpuscular Volume 96.0 fl (82-101); Nucleated Red Blood Cells % 0 %; Platelet Count 193 10^3/cmm (157-399); Red Blood Count 3.48 10^6/uL (3.85-5.65); White Blood Count 6.45 10^3/uL (3.29-11.43)
[2025-01-05 05:37] LABS: Alanine Aminotransferase 12 U/L (0-41); Albumin Level 3.4 g/dL (3.5-5.2); Alkaline Phosphatase 67 U/L (40-130); Anion Gap 15.6 (5-19); Aspartate Amino Transferase 16 U/L (0-40); Blood Urea Nitrogen 17 mg/dL (8-23); Calcium 8.6 mg/dL (8.5-10.5); Carbon Dioxide 26 mmol/L (22-29); Chloride 98 mmol/L (98-107); Creatinine Clr Calc Pharmacy 69.1939; Globulin 2.2 g/dL (1.3-4.6); Glucose 78 mg/dL (65-115); Magnesium 1.8 mg/dL (1.7-2.3); Osmolality Calculated 282 mOsm/kg (285-295); Potassium 3.6 mmol/L (3.5-5.1); Sodium 136 mmol/L (136-145); Total Protein 5.6 g/dL (6.6-8.7)
--- NOTE | 2025-01-05 06:00 | XR_ITS ---
WS: [id number] KUB, AP portable supine view, 01/05 Comparison: CT abdomen pelvis, 01/04/2025, KUB, 10/30/2024 Findings: No abnormal intraabdominal masses or calcifications are seen. There is massive dilatation of the transverse colon unchanged from yesterday. The descending colon is visible. There is oral contrast in the ascending colon mixed with fecal material. There is an extensive posterior thoracolumbar sacral fusion unchanged. There are bilateral hip prostheses. Monitor leads are on the abdominal wall. XR/XR KUB portable [id number] Impression: Massive dilatation of transverse colon unchanged from yesterday.
[2025-01-05 07:39] VITALS: BP 100/65; PULSE 76; RESP 16; TEMP 36.8; O2SAT 92
[2025-01-05] MEDS: FUROsemide 10 mg/mL SDV 4mL 40 MG IVP ×2 (07:51→20:32)
--- NOTE | 2025-01-05 08:12 | PC.SOCIAL ---
IMM Update pg 2 of IMM Updated and reviewed w/ patient. Copy provided and copy dated, initialed and placed in chart.
[2025-01-05] MEDS: potassium phosphate (mEq K) 40 MEQ in sodium chloride 0.9% (100 ml) 100 ML 25 MEQ IV (08:50)
--- NOTE | 2025-01-05 10:37 | PC.OT ---
OT treatment attempted this a.m. Pt. had visitors and agreed to treatment later today. Will attempt again at later time.
[2025-01-05 12:00] VITALS: BP 104/69; PULSE 73; RESP 16; TEMP 37.3
--- NOTE | 2025-01-05 12:10 | P.PN_ITS ---
Subjective 2 Subjective: Patient seen this morning, currently alert oriented x 3, following all commands, is at bedside, he had 2 large bowel movements he tells me he this morning, he is passing gas, we discussed his x-ray findings CT scan findings he continues to have significant dilatation of the transverse colon, which is similar to compared to yesterday but he does have 2 bowels no blood black cells, no nausea, no vomiting Vitals/I&O/Wt Last Vital Signs Temp 98.2 F 01/05/25 07:39 Pulse 76 01/05/25 07:39 Resp 16 01/05/25 07:39 BP 100/65 01/05/25 07:39 Pulse Ox 92 01/05/25 07:39 O2 Del Method Room Air 01/05/25 07:39 O2 Flow Rate 2 01/04/25 03:29 01/04/25 01/05/25 01/05/25 22:59 06:59 14:59 Intake Total 240 / 240 120 / 120 Output Total 1650 / 1650 1650 / 3300 Balance -1650 / -1650 -1410 / -3060 120 / 120 Weight last 48 hrs Weight 101.6 kg Weight 103.4 kg Weight 100.698 kg Physical Exam 2 Const: COMMON NORMALS: no acute distress and patient oriented x3 Resp: COMMON NORMALS: normal respiratory effort, No retractions, No use of accessory muscles and clear to auscultation bilaterally AUSCULTATION: clear to auscultation bilaterally Cardio: COMMON NORMALS: regular rate, regular rhythm, S1 normal heart sound present and S2 normal heart sound present RATE: regular rate RHYTHM: r egular rhythm HEART SOUNDS: S1 normal heart sound present and S2 normal heart sound present GI: OTHER: Abdomen soft, distended, good bowel sounds, no guarding, no rebound, rigidity Extremity: COMMON NORMALS: no pedal edema Neuro: COMMON NORMALS: patient oriented x3, CN's II-XII intact bilaterally and moves all extremities Psych: COMMON NORMALS: mental status grossly normal Urinary Catheter Management: Velazquez: Cath Placed During This Visit: yes, but has since been removed by the nurse Reason for Continuing Indwelling Catheter: Accurate Measurement of Urinary Output in Critically Ill Patients Urinary Catheter Date of Insertion: 01/03/25 Urinary Catheter Time of Insertion: 23:15 Date Urinary Catheter Removed: 01/03/25 Time Urinary Catheter Discontinued: 23:15 Data 01/05/25 04:34 01/05/25 04:34 A&P Assessment and plan 1. Chest pain: 2. Atrial fibrillation: 3. Port-A-Cath in place: Plan: Chest pain - Serial EKGs, serial troponins, telemetry monitoring - Aspirin, statin, Coreg, switch to therapeutic Lovenox - Cardiac echo CONCLUSIONS Normal left ventricular size, systolic function and wall thickness, with no regional wall motion abnormalities. Left ventricular ejection fraction is estimated at 60 %. Grade II/IV diastolic dysfunction, moderately elevated filling pressures There is no pericardial effusion. No significant valve abnormalities. Right atrial pressure is around 5 mm of mercury. 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 This study is negative for ischemia. - Continue to medically manage - Monitor recurrent chest pain - Repeat troponin overnight 6-hour troponin 47, delta 12, due to complaints of chest pain yesterday will consult cardiology Shortness of breath, -3.7 L - Evidence of diastolic CHF exacerbation -CT chest no acute findings - Cardiac echo as above - Please Velazquez catheter - Lasix 40 IV twice daily - Monitor creatinine, monitor potassium Abdominal distention, history of C. difficile -Concerns for adynamic ileus - C. difficile testing pending - CT scan abdomen pelvis Again seen is marked gaseous distention of the transverse colon with a more normal appearing descending LEFT colon and sigmoid colon with persistent air and stool in the sigmoid colon. No visualized obstructing mass or lesion at the level of the splenic flexure. Findings most likely due to adynamic ileus but recommend continued surveillance and follow-up to resolution. Findings can be followed up with colonoscopy if presumed ileus does not resolve with conservative measures. Otherwise no other remarkable changes compared to previous. Normal noncontrast liver and spleen. Cholecystectomy clips. Adrenal glands are normal. LEFT renal cyst. Stomach is decompressed. Oral contrast is still in the small bowel. Fecal retention RIGHT colon and cecum. Velazquez catheter. Postoperative changes as previously described. -X-ray shows massive dilatation of transverse colon -He has had 2 bowel movements in the night, abdominal distention improved, passing gas, no nausea, no vomiting no abdominal pain Plan - Serial abdominal exams -Monitor bowel movement, bowel regimen - Repeat KUB tomorrow morning Bilateral lower extremity edema, venous ultrasound negative for pending Full code Lovenox for DVT prophylaxis PDMP PDMP Reviewed: Not Reviewed Attestations 2 Medical Necessity Statement*: Patient requires hospitalization for chest pain, CHF, diastolic, abdominal distention Diagnoses Chest pain R07.9 Atrial fibrillation I48.91 Port-A-Cath in place Z95.828
[2025-01-05 16:00] VITALS: BP 120/65; PULSE 72; RESP 16; TEMP 37.2
--- NOTE | 2025-01-05 16:00 | XR_ITS ---
WS: [id number] KUB, AP view, 01/05/2025, 1515 hours Clinical Data: contrast follow though Comparison: KUB, 01/05/2025, 0744 hours Findings: No abnormal intraabdominal masses or calcifications are seen. The dilatation of the transverse colon remains the same. There is contrast material in the ascending colon. A minimal amount of the contrast has proceeded into the proximal transverse colon. The remainder of the abdomen shows no change. XR/XR KUB [id number] Impression: 1. Persistent dilatation of the transverse colon. 2. Minimal progression of contrast material into the proximal transverse colon.
--- NOTE | 2025-01-05 17:47 | P.CONIM_ITS ---
Providers/Reason For Consult 2 Consulting Physician/Specialty*: Naz Russ MD Reason for Consult*: Atypical chest pain Shortness of breath Abdominal pain Diarrhea Requesting Physician: Dr. Collin Nathan Attending Physician: Jac Polanco MD Primary Care Provider: Marsha Turner MD History of Present Illness History of Present Illness Kojo Marinelli is a 79 year old male past medical history significant of hypertension hyperlipidemia diastolic congestive heart failure presented with episodes of not able to breathe with chest pressure. He was ruled out for acute coronary syndrome stress test was performed which showed old myocardial infarction without significant ischemia. Since patient had episode of chest pressure we have been asked to assist in his care. According to the patient he was sitting in his car waiting for his to come out of the [employer] he felt very suffocated and feels like the pressure from her abdomen is going towards his chest he got very scared and was not able to breathe. He was brought in to the ER. He was also noted to have abdominal distention and later had loose stool. He has been rule out for C. difficile. Stress test was also performed which did not show significant ischemia. Patient had left heart cath in 2020 which showed nondominant RCA and normal coronary arteries. He denies any recent chest pain twelve-lead EKG is suggestive of sinus rhythm interventricular conduction delay and first-degree AV block. He says he has not had any more chest pressure since admission. Review of Systems 2 Const: Denies: fever(s) or chills Card: Denies: chest pain Resp: Reports: dyspnea GI: Denies: abdominal pain : Denies: flank pain Musc: Denies: joint warmth All/Imm: Denies: acute wheezing Medications/Allergies Home Medications ?Medication ?Instructions ?Recorded ?Confirmed ?Last Taken ?Type apixaban 5 mg tablet (Eliquis) 5 mg PO BID@0900,2100 # 60 tabs 11/12/22 01/03/25 01/03/25 08:00 Rx nitroglycerin 0.4 mg sublingual 0.4 mg sublingual Q5M PRN Chest 12/22/22 01/03/25 01/03/25 14:00 History tablet (Nitrostat) Pain amiodarone 200 mg tablet (Pacerone) 200 mg PO DAILY #3 0 tabs 1201/03/25 01/03/25 08:00 Rx liothyronine 5 mcg tablet 10 mcg PO DAILY 04/01/2301/03/25 08:00 History atorvastatin 40 mg tablet 40 mg PO BEDTIME #90 tabs 01/03/25 01/02/25 19:00 Rx oxybutynin chloride 5 mg 5 mg PO BEDTIME 10/22/2301/02/25 19:00 History tablet,extended release 24 hr prednisone 10 mg tablet 10 mg PO DAILY #90 tabs 06/1301/03/25 01/03/25 08:00 Rx acetaminophen 500 mg capsule 1,000 mg PO TID PRN Pain 08/17/24 01/03/25 01/03/25 08:00 History levothyroxine 150 mcg tablet 150 mcg PO DAILY 10/11/24 01/03/25 01/03/25 08:00 History (Synthroid) lidocaine-prilocaine 2.5 %-2.5 % 1 applic topical PRN PRN port 10/11/24 01/03/25 Unknown History topical cream access lactulose 10 gram/15 mL oral 20 g (30 mL) PO DAILY PRN 10/28/24 01/03/25 5 Weeks Ago Rx solution constipation #473 mL ~11/13 10/06 meclizine 25 mg tablet 25 mg PO TID PRN dizziness # 20 tabs 10/28/24 01/03/25 01/03/25 08:00 Rx bumetanide 2 mg tablet 2 mg PO BID Edema 30 days #6 0 tabs 11/03/24 01/03/25 4 Weeks Ago Rx ~12/06/24 hydralazine 50 mg tablet See Rx Instructions .Route 0 11/17/24 01/03/25 01/03/25 08:00 Rx .COMPLEX #90 tabs potassium chloride 20 mEq 20 meq PO BID 21 days #42 ta bs 11/24/24 01/03/25 01/03/25 08:00 Rx tablet,extended release (K-Tab) omeprazole 40 mg capsule,delayed 40 mg PO QAM #90 caps 12/18/24 01/03/25 01/03/25 08:00 Rx release carvedilol 12.5 mg tablet 12.5 mg PO BID 01/03/2512/1401/03/25 08:00 History isosorbide mononitrate 30 mg 30 mg PO DAILY 01/03/25 1 01/03/25 08:00 History tablet,extended release 24 hr Allergies Allergy/AdvReac Type Severity Reaction Status Date / Time adhesive tape Allergy tears skin Verified 12/26/24 08:49 off metoclopramide (From Reglan) Allergy Unknown Verified 12/26/24 08:49 morphine Allergy ALGY-Hives Verified 12/26/24 08:49 tamsulosin (From Flomax) Allergy ADR/ALGY-Hy Verified 12/26/24 08:49 potension zolpidem (From Ambien) Allergy Unknown Verified 12/26/24 08:49 hydrocodone AdvReac Mild Hypotension Verified 12/26/24 08:49 oxycodone AdvReac Mild Hypotension Verified 12/26/24 08:49 Current Medications Generic Name Dose Route Start Last Admin Trade Name Freq PRN Reason Stop Dose Admin Acetaminophen 650 mg 01/03/25 20:16 01/03/25 22:49 Acetaminophen 325 Mg Tablet PO 650 mg Q6H PRN Administration Mild/Mod Pain Or Temp >/= 101 Amiodarone HCl 200 mg 01/04/25 05:00 01/05/25 04:51 Amiodarone 200 Mg Tablet PO 200 mg DAILY FATIMAH Administration Aspirin 81 mg 01/03/25 20:16 01/05/25 04:50 Aspirin 81 Mg Ec Tablet PO 81 mg DAILY FATIMAH Administration Atorvastatin Calcium 40 mg 01/03/25 21:00 01/04/25 20:13 Atorvastatin 40 Mg Tablet PO 40 mg BEDTIME FATIMAH Administration Carvedilol 6.25 mg 01/04/25 05:00 01/05/25 04:50 Carvedilol 12.5 Mg Tablet PO 6.25 mg DAILY FATIMAH Administration Enoxaparin Sodium 100 mg 01/03/25 22:00 01/05/25 07:58 Enoxaparin 100 Mg/Ml Syringe 1 mg/kg (100 mg) 100 mg SUBCUT Administration Q12H FATIMAH Fluconazole 100 mg 01/04/25 05:00 01/05/25 15:58 Fluconazole 100 Mg Tablet PO 01/07/25 04:59 100 mg BID FATIMAH Administration Furosemide 40 mg 01/03/25 20:16 01/05/25 07:51 Furosemide 10 Mg/Ml Sdv 4ml IVP 40 mg Q12H FATIMAH Administration Hydralazine HCl 50 mg 01/03/25 21:00 01/05/25 13:37 Hydralazine 50 Mg Tablet PO 50 mg TID FATIMAH Administration Hydromorphone HCl 0.5 mg 01/04/25 08:39 01/04/25 09:20 Hydromorphone 0.5 Mg/0.5 Ml Inj IVP 0.5 mg Q4H PRN Administration PAIN Isosorbide Mononitrate 60 mg 01/03/25 21:00 01/04/25 20:13 Isosorbide Mononitrate Er 30 Mg Tablet PO 60 mg BEDTIME FATIMAH Administration Levothyroxine Sodium 150 mcg 01/04/25 05:00 01/05/25 04:50 Levothyroxine 150 Mcg Tablet PO 150 mcg DAILY FATIMAH Administration Liothyronine Sodium 5 mcg 01/04/25 05:00 01/05/25 15:58 Liothyronine 5 Mcg Tablet PO 5 mcg BID FATIMAH Administration Olanzapine 2.5 mg 01/04/25 05:00 01/05/25 04:51 Olanzapine 5 Mg Tablet PO Not Given DAILY FATIMAH Ondansetron HCl 4 mg 01/03/25 20:16 01/04/25 22:55 Ondansetron 2 Mg/Ml Sdv 2 Ml IVP 4 mg Q8H PRN Administration vomiting, or N/V if npo Pantoprazole Sodium 40 mg 01/03/25 20:16 01/04/25 20:13 Pantoprazole 40 Mg Sdv IVP 40 mg Q24H FATIMAH Administration Prednisone 10 mg 01/04/25 05:00 01/05/25 04:51 Prednisone 10 Mg Tablet PO 10 mg DAILY FATIMAH Administration PFSH Acute 2 PFSH: Medical History (Updated 01/05/25 @ 18:04 by Naz Russ MD) Hypothyroid ADAMS (dyspnea on exertion) Atrial fibrillation Ascending aortic aneurysm Patient had a CT of the chest on 07/14/2023. The ascending aorta was found to be 4.0 cm in diameter. Essentially unchanged CHF (congestive heart failure), NYHA class III EF 10/2022 43% on stress test, 50% on echo HTN (hypertension) Other iron deficiency anemias Anemia High risk medication use prednisone and leflunomide 12/2022 Peripheral arterial disease Chronic anticoagulation eliquis Unstable angina CAD (coronary artery disease) Seroma, postoperative Spinal stenosis, thoracic Degenerative disc disease, thoracic History of prostate cancer Urgency incontinence Renal cyst Acquired calcaneovarus deformity of both feet Lumbar stenosis with neurogenic claudication Orthostatic hypotension Venous insufficiency of both lower extremities Acute blood loss as cause of postoperative anemia Failed back surgical syndrome DDD (degenerative disc disease), lumbar Chronic back pain History of TIA (transient ischemic attack) Radiation cystitis Carotid artery disease Hx of cataract Closed fracture of right patella COVID-19 2020 Metatarsus adductus Osteoarthritis, generalized Seronegative rheumatoid arthritis Positive CORBY (antinuclear antibody) EDUARDO was negative in 2013 Gastroparesis GERD (gastroesophageal reflux disease) Cervical postlaminectomy syndrome FUAD (obstructive sleep apnea) Hyperlipidemia COPD (chronic obstructive pulmonary disease) H/O malignant neoplasm of skin Surgical History Status post revision of total replacement of right knee History of total bilateral knee replacement (TKR) Hx of excision of epidermal inclusion cyst Hx of excision of mass 04/12/23 Dr Fitzgerald- Elliptical excision of skin and subcutaneous back mass S/P laminectomy with spinal fusion S/P spinal fusion 02/2021 - T9-S1 Dr Delarosa History of penile implant Status post spinal arthrodesis S/P lumbar fusion History of cardiac cath ~2012 nonobstructive 10/2022 stress test EF 43 %, small areas prior infarcts RCA and LAD territories History of hip surgery RIGHT 04/11/19 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 History of total right hip arthroplasty History of total left hip arthroplasty History of abdominal aortic aneurysm (AAA) repair History of tonsillectomy and adenoidectomy Hx of appendectomy History of back surgery multiple procedures (>10) H/O neck surgery x 2 Hx of cholecystectomy H/O colonoscopy 2011 H/O esophagogastroduodenoscopy 2011 Family History Mother , Age 81 Bleeding disorder Clotting disorder CAD (coronary artery disease) 60s Cancer Stroke Father , Age 94 CAD (coronary artery disease) 80 Dementia Daughter Chronic kidney disease (CKD) Brother CAD (coronary artery disease) [place] Cancer Denies family history of Diabetes Suicide Anesthesia complication Lung disease Social History Smoking and tobacco/nicotine status: never used tobacco/nicotine Alcohol intake: never Substance/Drug Use: never Household members: spouse Marital status: Current occupational status: retired Special danny needs: No Agree to transfusion: Yes Dietary Habits: Current diet type/program: regular Caffeine: Yes High- fat food intake: 2 times daily Daily servings fruits/vegetables: 0-1 Daily servings of milk/calcium: 0-1 Eating out: rarely or never Reads food labels: usually or always During the past year weight has: remained stable Exercise: What type of physical activity do you participate in?: none and walking Physical activity functional status: independent ambulation How many days of moderate to strenuous exercise, like a brisk walk, did you do in the last 7 days: 0 Safety: Seatbelt use: always Helmet use: No Drive intoxicated or ride with intoxicated 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?: never Home Safety: Water heater temperature set < 120 degrees: No Working smoke detector in home: Yes Fire extinguisher in home: No Carbon monoxide detector in home: No Firearms in home: Yes Personal Safety: Do you feel safe at home: No Victim of physical abuse: No Victim of emotional abuse: No Victim of sexual abuse: No Would you like help information on resources?: No NHANES Social Connection/Isolation: Are you now , , , , never or living with a partner?: In a typical week, how many times do you talk on the telephone with family, friends, or neighbors?: Twice per Week How often do you get together with friends or relatives?: Twice per Week Do you belong to any clubs or organizations such as yazidism groups unions, fraternal or athletic groups, or school groups?: No Social isolation score (0-1 are the most socially isolated patients): 2 S ocial isolation score reviewed/action taken: No Vitals/I&O/Wt Last Vital Signs Temp 99.0 F 01/05/25 16:00 Pulse 72 01/05/25 16:00 Resp 16 01/05/25 16:00 BP 120/65 01/05/25 16:00 Pulse Ox 92 01/05/25 07:39 O2 Del Method Room Air 01/05/25 07:39 O2 Flow Rate 2 01/04/25 03:29 01/05/25 01/05/25 01/05/25 06:59 14:59 22:59 Intake Total 240 / 833 380.2124 / 229.0909 Output Total 1650 / 3300 950 / 950 Balance -1410 / -3060 -720.9091 / -720.9091 Weight last 48 hrs Weight 223 lb 15.834 oz Weight 227 lb 15.327 oz Physical Exam 2 Const: OTHER: GENERAL: Patient is alert, awake and oriented x3. HEART: Regular S1 and S2. No murmur, rub or gallop. LUNGS: Clear to auscultate bilaterally Abdomen: Distended and tympanic no rebound tenderness, hyperactive bowel sounds. CENTRAL NERVOUS SYSTEM: Grossly nonfocal. EXTREMITIES: Lower extremities with out edema bilaterally. Urinary Catheter Management: Velazquez: Cath Placed During This Visit: yes, but has since been removed by the nurse Reason for Continuing Indwelling Catheter: Accurate Measurement of Urinary Output in Critically Ill Patients Urinary Catheter Date of Insertion: 01/03/25 Urinary Catheter Time of Insertion: 23:15 Date Urinary Catheter Removed: 01/03/25 Time Urinary Catheter Discontinued: 23:15 Data 01/05/25 04:34 01/05/25 04:34 A&P Assessment and plan 1. Chest pain: 2. Atrial fibrillation: 3. CHF (congestive heart failure), NYHA class III: 4. HTN (hypertension): Plan: Patient has been ruled out for acute coronary syndrome, stress test showed old myocardial infarction versus scarring without significant ischemia, patient had negative left heart catheterization in 2020 without significant disease in the nondominant RCA, most likely abnormality on the stress test in attenuation artifact. No further testing required as chest pain was atypical and most likely secondary to upper abdominal pain radiating towards his chest. Agree him being volume overload he is on IV diuretics. He has passed stool rather has some diarrhea with serial negative. No further testing needed from a cardiovascular perspective Continue IV Lasix 40 mg twice daily for 1 more day and switch to oral once settled down from abdominal perspective Continue replenishing potassium Will optimize his medications PDMP PDMP Reviewed: Not Reviewed Consult Attestations 2 Medical Necessity Statement: As per medicine Coding Level of Care Code Acute Code for [facility] Fwd Diagnoses Chest pain R07.9 Atrial fibrillation I48.91 CHF (congestive heart failure), NYHA class III I50.9 HTN (hypertension) I10
[2025-01-05 19:17] VITALS: BP 120/65; PULSE 67; RESP 16; TEMP 37.2; O2SAT 94
[2025-01-05] MEDS: pantoprazole 40 mg SDV IVP (20:32)
[2025-01-05 23:03] VITALS: BP 128/68; PULSE 73; RESP 16; TEMP 37.3; O2SAT 93
[2025-01-06 03:03] VITALS: BP 108/57; PULSE 67; RESP 18; TEMP 36.9; O2SAT 92
[2025-01-06 03:47] LABS: Hematocrit 32.6 % (37-53); Hemoglobin 10.70 g/dL (11.27-16.99); Mean Corpuscular HGB Conc 32.8 g/dL (30-55); Mean Corpuscular Hemoglobin 31.2 pg (27-33); Mean Corpuscular Volume 95.0 fl (82-101); Nucleated Red Blood Cells % 0 %; Platelet Count 174 10^3/cmm (157-399); Red Blood Count 3.43 10^6/uL (3.85-5.65); White Blood Count 5.82 10^3/uL (3.29-11.43)
[2025-01-06 04:19] LABS: Alanine Aminotransferase 15 U/L (0-41); Albumin Level 3.4 g/dL (3.5-5.2); Alkaline Phosphatase 70 U/L (40-130); Anion Gap 17.0 (5-19); Aspartate Amino Transferase 18 U/L (0-40); Blood Urea Nitrogen 19 mg/dL (8-23); Calcium 8.4 mg/dL (8.5-10.5); Carbon Dioxide 26 mmol/L (22-29); Chloride 96 mmol/L (98-107); Creatinine Clr Calc Pharmacy 62.9035; Globulin 2.1 g/dL (1.3-4.6); Glucose 97 mg/dL (65-115); Magnesium 1.9 mg/dL (1.7-2.3); Osmolality Calculated 284 mOsm/kg (285-295); Potassium 3.0 mmol/L (3.5-5.1); Sodium 136 mmol/L (136-145); Total Protein 5.5 g/dL (6.6-8.7)
[2025-01-06 05:04] VITALS: BMI 31.4
[2025-01-06 05:57] VITALS: PULSE 65
[2025-01-06 07:24] VITALS: BP 127/58; PULSE 70; RESP 18; TEMP 36.6; O2SAT 96
[2025-01-06] MEDS: FUROsemide 10 mg/mL SDV 4mL 40 MG IVP (08:23)
[2025-01-06 12:00] VITALS: BP 129/75; PULSE 70; RESP 21; O2SAT 92
--- NOTE | 2025-01-06 13:30 | PM.DCS ---
Discharge Providers Date of Admission: 01/03/25 19:27 Date of Discharge: January 06, 2025 Attending Provider at Admission: Jac Polanco MD Attending Provider at Discharge: Jac Polanco MD Primary Care Provider: Marsha Turner MD Diagnoses at Discharge Discharge Diagnosis 1. Chest pain: 2. Paroxysmal atrial fibrillation: 3. Chronic diastolic congestive heart failure, NYHA class 3: 4. Primary hypertension: Reason for Visit Reason for Visit: Chest Pain Hospital Course Hospital Course Kojo Marinelli is a 79 year old male with a past medical history of skin cancer, right mandaen, status post surgical intervention, on immunotherapy, history of hypertension, hyperlipidemia, atrial fibrillation on Eliquis therapy recent history of C. difficile colitis completed treatment, who presents [facility] due to chest pain and shortness of breath. Currently patient is alert oriented x 3, follows all commands, he tells me that today he developed substernal crushing chest pain, associate with shortness of breath associate with excessive exertion, recently has been experiencing increased shortness of breath with exertion, lower extremity edema does report persistent diarrhea, increased abdominal distention, bloating, nonspecific abdominal pain, does have pitting edema, no dysuria, hematuria, no flank pain, does report shortness of breath with exertion, Patient was admitted to [facility] for chest pain - Serial EKGs, serial troponins, telemetry monitoring - Aspirin, statin, Coreg, switch to therapeutic Lovenox - Cardiac echo CONCLUSIONS Normal left ventricular size, systolic function and wall thickness, with no regional wall motion abnormalities. Left ventricular ejection fraction is estimated at 60 %. Grade II/IV diastolic dysfunction, moderately elevated filling pressures There is no pericardial effusion. No significant valve abnormalities. Right atrial pressure is around 5 mm of mercury. 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 This study is negative for ischemia. - Continue to medically manage - Monitor recurrent chest pain - Repeat troponin overnight 6-hour troponin 47, delta 12, due to complaints of chest pain, cardiology consulted, recommended medical management -He was monitored for another 24 hours as inpatient, no recurrent chest pain or shortness of breath, patient was advised to go to the emergency room For patient's shortness of breath, diuresed over 6 L negative, diastolic CHF exacerbation, will be discharged home - Patient was advised to take Bumex 1 mg twice daily Takes Bumex 1 mg twice daily, potassium 20 meq twice daily - if you gain more than 3 pounds, or edema or shortness of breath - Take Bumex 2 mg twice daily with potassium for 40me twice daily for 3 days - If beyond this she was still short of breath or develop edema or gain more than 3 pounds go to the emergency room Abdominal distention, history of C. difficile -Concerns for adynamic ileus - C. difficile testing negative - CT scan abdomen pelvis Again seen is marked gaseous distention of the transverse colon with a more normal appearing descending LEFT colon and sigmoid colon with persistent air and stool in the sigmoid colon. No visualized obstructing mass or lesion at the level of the splenic flexure. Findings most likely due to adynamic ileus but recommend continued surveillance and follow-up to resolution. Findings can be followed up with colonoscopy if presumed ileus does not resolve with conservative measures. Otherwise no other remarkable changes compared to previous. Normal noncontrast liver and spleen. Cholecystectomy clips. Adrenal glands are normal. LEFT renal cyst. Stomach is decompressed. Oral contrast is still in the small bowel. Fecal retention RIGHT colon and cecum. Velazquez catheter. Postoperative changes as previously described. -X-ray shows massive dilatation of transverse colon - Was monitored as inpatient he has had several bowel movements according to patient, abdominal distention improved, passing gas, no nausea, no vomiting no abdominal - During his last hospitalization back in October 2024, was noted to have dilatation of transverse colon, which was medically managed with bowel regimen - Discussed with patient, that he will need to follow-up with GI as outpatient, referral sent - He denies any abdominal pain, nausea, vomiting, is ambulatory, abdominal distention improving, and he is having adequate bowel movement -Discussed with the patient the risks of bowel perforation associated with chronic transverse colon dilatation -He voices understanding, all questions answered, but having adequate bowel movements, passing gas, no nausea, no vomiting no abdominal pain, and distention clinically improving -However currently he is relatively asymptomatic and he has had this dilatation since October 2024 - He needs to continue to take bowel regimen - For dilatation of transverse colon, please continue bowel regimen - If you have persistent abdominal pain please go to the emergency room - If you have abdominal pain, lack of stooling, nausea or vomiting this is an emergency and please go to the emergency room Physical Exam Const: COMMON NORMALS: no acute distress and patient oriented x3 Resp: COMMON NORMALS: normal respiratory effort, No retractions, No use of accessory muscles and clear to auscultation bilaterally AUSCULTATION: clear to auscultation bilaterally Cardio: COMMON NORMALS: regular rate, regular rhythm, S1 normal heart sound present and S2 normal heart sound present RATE: regular rate RHYTHM: regular rhythm HEART SOUNDS: S1 normal heart sound present and S2 normal heart sound present GI: COMMON NORMALS: Normal to inspection, nondistended, normoactive bowel sounds present and non-tender Extremity: COMMON NORMALS: no calf tenderness and no pedal edema Neuro: COMMON NORMALS: patient oriented x3 Psych: COMMON NORMALS: mental status grossly normal Urinary Catheter Management: Velazquez: Cath Placed During This Visit: yes, but has since been removed by the nurse Reason for Continuing Indwelling Catheter: Accurate Measurement of Urinary Output in Critically Ill Patients Urinary Catheter Date of Insertion: 01/03/25 Urinary Catheter Time of Insertion: 23:15 Date Urinary Catheter Removed: 01/03/25 Time Urinary Catheter Discontinued: 23:15 Discharge Data Studies Completed and Pending Completed Studies During Hospitalization Category Date Time Status CT abdomen pelvis wo con [id number] Stat Cat Scan 01/04/25 10:[address] chest abdomen pelvis [place] [id number] Cat Scan 01/03/25 18:11 Completed ] Stat XR KUB [id number] Routine Exams 01/05/25 16:00 Completed XR KUB portable [id number] Routine Exams 01/05/25 06:00 Completed XR chest 1V portable [id number] Stat Exams 01/03/25 16:02 Completed NM pamela perf SPECT r/s* [id number] Routine Nuc Med 01/04/25 20:16 [place] [id number] Stat Ultrasound 01/03/25 18:10 Completed CV. echo complete* [id number] Stat Ultrasound 01/03/25 18:10 Completed Pending at discharge Category Date Time Status Sestamibi Stress Test Request Routine Exams 01/03/25 20:16 Ordered Radiology Impressions Chest X-Ray 01/03/25 16:02 IMPRESSION: No acute cardiopulmonary findings. Chest/Abdomen/Pelvis CT 01/03/25 18:11 IMPRESSION: No acute findings. IMPRESSION: 1. Similar markedly distended transverse colon. There is relatively abrupt tapering near the splenic flexure with decompression of the descending colon. This was not seen in the most recent prior exam from 10/28/2024 but is somewhat similar to the exam from 10/22/2024. Colonic ileus versus partial obstruction not excluded in the correct clinical setting. 2. Remainder stable. Abdomen/Pelvis CT 01/04/25 10:58 IMPRESSION: 1. Overall no significant changes since 01/03/2025. 2. Again seen is marked gaseous distention of the transverse colon with caliber change at the level of the splenic flexure with a more normal caliber descending LEFT colon and sigmoid colon with persistent air. Findings most likely due to adynamic ileus. 3. No visualized obstructing mass or lesion at the splenic flexure. If symptoms do not resolve with conservative measures consider further evaluation with colonoscopy. KUB X-Ray 01/05/25 16:00 Impression: 1. Persistent dilatation of the transverse colon. 2. Minimal progression of contrast material into the proximal transverse colon. Laboratory Results WBC 5.82 10^3/uL (3.29-11.43) 01/06/25 02:40 RBC 3.43 10^6/uL (3.85-5.65) L 01/06/25 02:40 Hgb 10.70 g/dL (11.27-16.99) L 01/06/25 02:40 Hct 32.6 % (37-53) L 01/06/25 02:40 MCV 95.0 fl (82-101) 01/06/25 02:40 MCH 31.2 pg (27-33) 01/06/25 02:40 MCHC 32.8 g/dL (30-55) 01/06/25 02:40 RDW 14.7 % (12.1-15.1) 01/06/25 02:40 Plt Count 174 10^3/cmm (157-399) 01/06/25 02:40 MPV 10.4 fL (7.4-10.4) 01/06/25 02:40 Neut % (Auto) 73.9 % 01/06/25 02:40 Lymph % (Auto) 12.4 % 01/06/25 02:40 [place] % (Auto) 12.9 % 01/06/25 02:40 Eos % (Auto) 0.2 % 01/06/25 02:40 Baso % (Auto) 0.3 % 01/06/25 02:40 Neut # (Auto) 4.30 10^3/uL (1.8-7.7) 01/06/25 02:40 Lymph # (Auto) 0.7 10^3/uL (0.8-4.8) L 01/06/25 02:40 [place] # (Auto) 0.8 10^3/uL (0.2-0.9) 01/06/25 02:40 Eos # (Auto) 0.0 10^3/uL (0.0-0.8) 01/06/25 02:40 Baso # (Auto) 0.0 10^3/uL (0.0-0.1) 01/06/25 02:40 Nucleated RBC % (auto) 0 % 01/06/25 02:40 Nucleated RBCs # 0.0 /100WBC 01/06/25 02:40 PT 17.20 SECONDS (12.1-14.9) H 01/03/25 21:37 INR 1.32 (0.8-1.2) H 01/03/25 21:37 APTT 32.9 SECONDS (23.9-36.7) 01/03/25 21:37 Sodium 136 mmol/L (136-145) 01/06/25 02:40 Potassium 3.0 mmol/L (3.5-5.1) L 01/06/25 02:40 Chloride 96 mmol/L (98-107) L 01/06/25 02:40 Carbon Dioxide 26 mmol/L (22-29) 01/06/25 02:40 Anion Gap 17.0 (5-19) 01/06/25 02:40 BUN 19 mg/dL (8-23) 01/06/25 02:40 Creatinine 1.1 mg/dL (0.7-1.2) 01/06/25 02:40 GFR Calculation Not Reportable 01/06/25 02:40 Glucose 97 mg/dL (65-115) 01/06/25 02:40 Estimat Average Glucose 94 01/03/25 15:50 Hemoglobin A1c 4.9 % (4.0-6.0) 01/03/25 15:50 Calculated Osmolality 284 mOsm/kg (285-295) L 01/06/25 02:40 Calcium 8.4 mg/dL (8.5-10.5) L 01/06/25 02:40 Phosphorus 4.2 mg/dL (2.5-4.5) 01/06/25 02:40 Magnesium 1.9 mg/dL (1.7-2.3) 01/06/25 02:40 Total Bilirubin 0.7 mg/dL (0.15-1.2) 01/06/25 02:40 AST 18 U/L (0-40) 01/06/25 02:40 ALT 15 U/L (0-41) 01/06/25 02:40 Alkaline Phosphatase 70 U/L (40-130) 01/06/25 02:40 Troponin T Baseline 35 ng/L (0-15) H 01/04/25 18:11 Troponin T 120 Minute 39.80 ng/L (0-15) H 01/04/25 20:37 Delta Troponin T 4.80 ABS# (0-10) 01/04/25 20:37 Troponin T Hi Sens 6Hr 47.01 ng/L (0-15) H 01/05/25 00:20 Troponin T Hi Sens 6Hr Delta 12.01 ng/L (0-12) H* 01/05/25 00:20 C-Reactive Protein 3.0 mg/L (0.0-4.9) 01/03/25 18:02 NT-Pro-B Natriuret Pep 271 pg/mL (0-450) 01/03/25 18:02 Total Protein 5.5 g/dL (6.6-8.7) L 01/06/25 02:40 Albumin 3.4 g/dL (3.5-5.2) L 01/06/25 02:40 Globulin 2.1 g/dL (1.3-4.6) 01/06/25 02:40 Triglycerides 83 mg/dL (0-150) 01/03/25 18:02 Cholesterol 118 mg/dL (0-200) 01/03/25 18:02 LDL Cholesterol, Calc 48 mg/dL (50-129) L 01/03/25 18:02 HDL Cholesterol 53 mg/dL (60-100) L 01/03/25 18:02 LDL/HDL Ratio 0.91 RATIO (0.00-3.22) 01/03/25 18:02 Cholesterol/HDL Ratio 2.23 mg/dL (1.0-5.00) 01/03/25 18:02 Lipase 18 U/L (13-60) 01/03/25 15:50 Procalcitonin 0.04 ng/mL (0-0.5) 01/03/25 18:02 TSH 3.45 uIU/mL (0.27-4.20) 01/03/25 18:02 Urine Color Dark yellow (Yellow) A 01/03/25: Urine Appearance Clear (CLEAR) 01/03/25: Urine pH 5.0 (5-7) 01/03/25: Ur Specific [place] 1.030 (1.005-1.030) 01/03/25: Urine Protein Trace (Negative) A 01/03/25 Urine Glucose (UA) Negative (Normal) 01/03/25: Urine Ketones Trace (Negative) 01/03/25: Urine Blood Negative (Negative) 01/03/25 21: Urine Nitrate Negative (Negative) 01/03/25: Urine Bilirubin Negative (Negative) 01/03/25: Urine Urobilinogen 1.0 mg/dL (Negative) 01/03/25: Ur Leukocyte Esterase Negative (Negative) 01/03/25 21: Urine RBC 3-5 /hpf (0-2) 01/03/25 21: Urine WBC 0-5 /hpf (0-5) 01/03/25 21: Ur Squamous Epith Cells 0-5 /hpf (0-5) 01/03/25 21: Calcium Oxalate Crystal 5-10 /hpf H 01/03/25 21: Amorphous Sediment Not Reportable 01/03/25: Urine Bacteria None seen /hpf (NONE) 01/03/25 21: Hyaline Casts 21.48 /lpf 01/03/25 21:33 C. difficile (PCR) Negative (Negative) 01/04/25 19:11 Vitals Last Vital Signs Temp 97.8 F 01/06/25 07:24 Pulse 70 01/06/25 12:00 Resp 21 H 01/06/25 12:00 BP 129/75 01/06/25 12:00 Pulse Ox 92 01/06/25 12:00 O2 Del Method Nasal Cannula 01/06/25 03:03 O2 Flow Rate 2 01/04/25 03:29 Discharge Plan Discharge Patient Disposition: Home Health Service Condition: Stable Prescriptions: New potassium chloride [Klor-Con M20] 20 mEq tablet,ER particles/crystals 20 meq PO BID 30 Days Qty: 60 0RF polyethylene glycol 3350 [Miralax] 17 gram powder in packet 17 g PO DAILY 30 Days Qty: 30 0RF Continued oxybutynin chloride 5 mg tablet extended release 24hr 5 mg PO BEDTIME prednisone 10 mg tablet 10 mg PO DAILY Qty: 90 1RF atorvastatin 40 mg tablet 40 mg PO BEDTIME Qty: 90 3RF omeprazole 40 mg capsule,delayed release(DR/EC) 40 mg PO QAM Qty: 90 1RF acetaminophen 500 mg capsule 1,000 mg PO TID PRN (Reason: Pain) Eliquis 5 mg Tablet 5 mg PO BID@0900,2100 Qty: 60 2RF levothyroxine [Synthroid] 150 mcg tablet 150 mcg PO DAILY lidocaine-prilocaine 2.5-2.5 % cream 1 applic topical PRN PRN (Reason: port access) Rx Instructions: Apply a quarter size amount to port and cover with saran wrap 30 minutes prior to access. lactulose 10 gram/15 mL solution 20 g PO DAILY PRN (Reason: constipation) Qty: 473 0RF meclizine 25 mg tablet 25 mg PO TID PRN (Reason: dizziness) Qty: 20 0RF nitroglycerin [Nitrostat] 0.4 mg Tablet, Sublingual 0.4 mg SUBLINGUAL Q5M PRN (Reason: Chest Pain) Rx Instructions: do not exceed 3 doses per episode amiodarone [Pacerone] 200 mg Tablet 200 mg PO DAILY Qty: 30 0RF liothyronine 5 mcg tablet 10 mcg PO DAILY isosorbide mononitrate 30 mg tablet extended release 24 hr 30 mg PO DAILY Changed hydralazine 50 mg tablet 50 mg PO TID Qty: 90 3RF bumetanide 2 mg tablet 1 mg PO BID 30 Days Qty: 30 0RF carvedilol 12.5 mg Tablet 6.25 mg PO BID 30 Days Qty: 30 0RF Rx Instructions: must administer with a meal/food Discontinued potassium chloride [K-Tab] 20 mEq tablet extended release 20 meq PO BID 21 Days Qty: 42 0RF Discharge Order = DC NOW: Discharge Order (Routine); Ordered 01/06/25 Ordered By: Jac Polanco Referrals: [facility] [Outside] Marsha Turner MD [Primary Care Provider, Internal Medicine] - 01/11/25 11:15 am Rico Orr MD [Referring, Internal Medicine] - 1 week Referral Note: GI Please call the office on Wednesday to schedule this appointment Naz Russ MD [Physician, Cardiology] - 1-3 days Referral Note: We have notified your physician's clinic of the need for a follow-up appointment to be scheduled. If you have not heard from them within the next 2 business days, please call them directly. Discharge Diet: Cardiac Discharge Activity: Resume usual activity Patient Instructions: Potassium Chloride (By mouth), Polyethylene Glycol 3350 (By mouth), Opioid Safety, Patient Portal & [place] Instructions Activity Restrictions/Additional Instructions: - Takes Bumex 1 mg twice daily, potassium 20 meq twice daily - if you gain more than 3 pounds, or edema or shortness of breath - Take Bumex 2 mg twice daily with potassium for 40me twice daily for 3 days - If beyond this she was still short of breath or develop edema or gain more than 3 pounds go to the emergency room - For dilatation of transverse colon, please continue bowel regimen - If you have persistent abdominal pain please go to the emergency room - If you have abdominal pain, lack of stooling, nausea or vomiting this is an emergency and please go to the emergency room - For your dilatation of the transverse colon, please follow-up with GI in [place] - Please follow-up with cardiology in 1 to 2 weeks Discharge Attestations Time Spent in Discharge Care*: greater than 30 min Quality Metrics Clinical Quality Measures [ No reported AMI, CVA or VTE this stay] Coding Level of Care Code 27086 Total time (in minutes) for Discharge: 45 Diagnoses Chest pain R07.9 Paroxysmal atrial fibrillation I48.0 Atrial fibrillation type: paroxysmal Chronic diastolic congestive heart failure, NYHA class 3 I50.32 Congestive heart failure type: diastolic Congestive heart failure chronicity: chronic Primary hypertension I10 Hypertension type: primary hypertension
[2025-01-06 15:40] VITALS: BP 138/76; PULSE 77; RESP 18; TEMP 36.2; O2SAT 95
== END 2025-01-06 15:05 | disposition home health service (06) | DRG 291 ==
LOC: ER 17:23 → CSU 21:35
PROVIDERS: Admitting Provider Family Medicine; Emergency Provider Emergency Medicine; PCP Internal Medicine; Visit Provider Family Medicine
DX: I11.0 Hypertensive heart disease with heart failure (principal); I50.33 Acute on chronic diastolic (congestive) heart failure; I48.0 Paroxysmal atrial fibrillation; K63.89 Other specified diseases of intestine; M06.00 Rheumatoid arthritis without rheumatoid factor, unspecified site; I25.10 Atherosclerotic heart disease of native coronary artery without angina pectoris; I73.9 Peripheral vascular disease, unspecified; K21.9 Gastro-esophageal reflux disease without esophagitis; E03.9 Hypothyroidism, unspecified; E78.5 Hyperlipidemia, unspecified; Z85.828 Personal history of other malignant neoplasm of skin; Z92.25 Personal history of immunosuppression therapy; Z79.01 Long term (current) use of anticoagulants; Z95.2 Presence of prosthetic heart valve; Z86.73 Personal history of transient ischemic attack (TIA), and cerebral infarction without residual deficits
CPT/HCPCS: 17000; 36415; 51702; 71045; 71250; 74018; 74176; 78452; 80053; 80061; 81001; 83036; 83690; 83735; 83880; 84100; 84145; 84443; 84484; 85025; 85610; 85730; 86140; 87493; 93005; 93017; 93306; 93970; 96372; 96375; 97110; 97116; 97162; 97167; 97535; 99214; A9500; J1171; J1650; J1938; J2405; J2470; J2785; J7512; J9999

== ENCOUNTER 2025-01-17 10:05 | Oncology outpatient (recurring) (ONCR) | payer MEDICARE, OTHER, SELFPAY ==
[2025-01-17 11:02] LABS: Hematocrit 39.1 % (37-53); Hemoglobin 12.70 g/dL (11.27-16.99); Mean Corpuscular HGB Conc 32.5 g/dL (30-55); Mean Corpuscular Hemoglobin 31.0 pg (27-33); Mean Corpuscular Volume 95.4 fl (82-101); Nucleated Red Blood Cells % 0 %; Platelet Count 252 10^3/cmm (157-399); Red Blood Count 4.10 10^6/uL (3.85-5.65); White Blood Count 9.84 10^3/uL (3.29-11.43)
[2025-01-17 11:23] LABS: Alanine Aminotransferase 25 U/L (0-41); Albumin Level 3.7 g/dL (3.5-5.2); Alkaline Phosphatase 84 U/L (40-130); Anion Gap 19.3 (5-19); Aspartate Amino Transferase 36 U/L (0-40); Blood Urea Nitrogen 24 mg/dL (8-23); Calcium 8.9 mg/dL (8.5-10.5); Carbon Dioxide 24 mmol/L (22-29); Chloride 99 mmol/L (98-107); Creatinine Clr Calc Pharmacy 52.4268; Ferritin 103 ng/mL (30-400); Globulin 2.9 g/dL (1.3-4.6); Glucose 127 mg/dL (65-115); Iron 78 ug/dL (59-158); Osmolality Calculated 294 mOsm/kg (285-295); Potassium 3.3 mmol/L (3.5-5.1); Sodium 139 mmol/L (136-145); Total Iron Binding Capacity 254 mcg/dl; Total Protein 6.6 g/dL (6.6-8.7); Unsaturated Iron Binding 176 ug/dL (112-347)
[2025-01-17 11:38] LABS: Vitamin B12 238 pg/mL (232-1245)
[2025-01-17] MEDS: cemiplimab-rwlc 350 MG in sodium chloride 0.9% 250 ML 500 MG IV (12:14)
[2025-01-17] MEDS: sodium chlor 0.9% + KCl 40 mEq 40 MEQ/1,000 ML BAG 250 MEQ IV (12:56)
[2025-01-17 15:20] VITALS: BP 142/67; PULSE 81; RESP 17; TEMP 36.5; O2SAT 95
== END 2025-01-17 23:59 | disposition home or self-care (01) ==
PROVIDERS: Internal Medicine; PCP Internal Medicine; Visit Provider Nurse Practitioner
DX: Z51.12 Encounter for antineoplastic immunotherapy; C44.92 Squamous cell carcinoma of skin, unspecified; D64.9 Anemia, unspecified; I50.9 Heart failure, unspecified; I48.91 Unspecified atrial fibrillation; E87.6 Hypokalemia; R11.0 Nausea; R11.10 Vomiting, unspecified; Z85.46 Personal history of malignant neoplasm of prostate; Z92.3 Personal history of irradiation; Z79.899 Other long term (current) drug therapy; Z53.9 Procedure and treatment not carried out, unspecified reason
CPT/HCPCS: 80053; 82607; 82728; 82746; 83010; 83540; 83550; 83615; 85025; 85045; 96365; 96366; 96413; 99213; A4222; J7050; J9119; J9999

== ENCOUNTER 2025-02-07 10:56 | Oncology outpatient (recurring) (ONCR) | payer MEDICARE, OTHER, SELFPAY ==
[2025-02-07 11:46] LABS: Hematocrit 38.6 % (37-53); Hemoglobin 12.30 g/dL (11.27-16.99); Mean Corpuscular HGB Conc 31.9 g/dL (30-55); Mean Corpuscular Hemoglobin 31.1 pg (27-33); Mean Corpuscular Volume 97.7 fl (82-101); Nucleated Red Blood Cells % 0 %; Platelet Count 211 10^3/cmm (157-399); Red Blood Count 3.95 10^6/uL (3.85-5.65); White Blood Count 6.01 10^3/uL (3.29-11.43)
[2025-02-07 12:01] LABS: Alanine Aminotransferase 27 U/L (0-41); Albumin Level 3.2 g/dL (3.5-5.2); Alkaline Phosphatase 66 U/L (40-130); Anion Gap 15.5 (5-19); Aspartate Amino Transferase 33 U/L (0-40); Blood Urea Nitrogen 13 mg/dL (8-23); Calcium 8.4 mg/dL (8.5-10.5); Carbon Dioxide 24 mmol/L (22-29); Chloride 104 mmol/L (98-107); Globulin 2.3 g/dL (1.3-4.6); Glucose 121 mg/dL (65-115); Osmolality Calculated 291 mOsm/kg (285-295); Potassium 3.5 mmol/L (3.5-5.1); Sodium 140 mmol/L (136-145); Total Protein 5.5 g/dL (6.6-8.7)
[2025-02-07] MEDS: cemiplimab-rwlc 350 MG in sodium chloride 0.9% 250 ML 500 MG IV (14:28)
== END 2025-02-11 23:59 | disposition home or self-care (01) ==
LOC: ONCMED 10:56
PROVIDERS: Internal Medicine; PCP Internal Medicine; Visit Provider Internal Medicine Medical Oncology
DX: Z51.12 Encounter for antineoplastic immunotherapy (principal); C44.42 Squamous cell carcinoma of skin of scalp and neck; Z79.899 Other long term (current) drug therapy; I48.91 Unspecified atrial fibrillation; I50.9 Heart failure, unspecified; D64.9 Anemia, unspecified
CPT/HCPCS: 80053; 83615; 85025; 96413; 99214; A4222; J7050; J9119

== ENCOUNTER 2025-02-28 10:21 | Oncology outpatient (recurring) (ONCR) | payer MEDICARE, OTHER, SELFPAY ==
[2025-02-28 11:01] LABS: Hematocrit 41.1 % (37-53); Hemoglobin 13.40 g/dL (11.27-16.99); Mean Corpuscular HGB Conc 32.6 g/dL (30-55); Mean Corpuscular Hemoglobin 30.6 pg (27-33); Mean Corpuscular Volume 93.8 fl (82-101); Nucleated Red Blood Cells % 0 %; Platelet Count 337 10^3/cmm (157-399); Red Blood Count 4.38 10^6/uL (3.85-5.65); White Blood Count 9.48 10^3/uL (3.29-11.43)
[2025-02-28 11:25] LABS: Alanine Aminotransferase 34 U/L (0-41); Albumin Level 3.4 g/dL (3.5-5.2); Alkaline Phosphatase 93 U/L (40-130); Anion Gap 14.5 (5-19); Aspartate Amino Transferase 38 U/L (0-40); Blood Urea Nitrogen 17 mg/dL (8-23); Calcium 8.9 mg/dL (8.5-10.5); Carbon Dioxide 33 mmol/L (22-29); Chloride 94 mmol/L (98-107); Globulin 2.5 g/dL (1.3-4.6); Glucose 104 mg/dL (65-115); Osmolality Calculated 288 mOsm/kg (285-295); Potassium 3.5 mmol/L (3.5-5.1); Sodium 138 mmol/L (136-145); Thyroid Stimulating Hormone 0.53 uIU/mL (0.27-4.20); Total Protein 5.9 g/dL (6.6-8.7)
[2025-02-28] MEDS: cemiplimab-rwlc 350 MG in sodium chloride 0.9% 250 ML 500 MG IV (12:13)
[2025-02-28 12:51] VITALS: BP 139/92; PULSE 84; RESP 17; TEMP 36.2; O2SAT 97
== END 2025-02-28 23:59 | disposition home or self-care (01) ==
PROVIDERS: Internal Medicine; Nurse Practitioner; PCP Internal Medicine; Visit Provider Internal Medicine Medical Oncology
DX: Z51.12 Encounter for antineoplastic immunotherapy (principal); C44.42 Squamous cell carcinoma of skin of scalp and neck; Z92.3 Personal history of irradiation; D64.9 Anemia, unspecified; M06.00 Rheumatoid arthritis without rheumatoid factor, unspecified site; Z79.899 Other long term (current) drug therapy; I11.0 Hypertensive heart disease with heart failure; E78.5 Hyperlipidemia, unspecified; I25.10 Atherosclerotic heart disease of native coronary artery without angina pectoris; I73.9 Peripheral vascular disease, unspecified; I50.9 Heart failure, unspecified; I48.91 Unspecified atrial fibrillation; J44.9 Chronic obstructive pulmonary disease, unspecified; G47.33 Obstructive sleep apnea (adult) (pediatric); G62.9 Polyneuropathy, unspecified
CPT/HCPCS: 80053; 84443; 85025; 96365; 99213; A4222; J7050; J9119